=== PATIENT | female | born 1960 | race Caucasian/White ===

== ENCOUNTER 2023-08-13 07:52 | Outpatient (OUT) | payer MEDICARE, SELFPAY ==
--- NOTE | 2023-08-13 08:02 | MM_ITS ---
Patient Name: EMILY MACIAS MR#: [id number] : 1960 Exam Date: 08/13/2023 Ordering Doctor: DR Aliya Stinson RADIOLOGY REPORT PROCEDURE: MM TOMOSYNTHESIS SCREENING BI COMPARISON: MG MAMM SCREEN 3D RIAN CAD, 07/19/2021. MG MAMM SCREEN RIAN W CAD, 07/05/2020. MG MAMM RIAN SCRN W CAD DIG, 02/25/2013. MG MAMM SCREEN 3D RIAN CAD, 08/08/2022. INDICATIONS: Screening Calculator Name NCI Breast Cancer Risk Assessment Tool 5 Year Breast Cancer Risk 3.00% Lifetime Breast Cancer Risk 12.40% Personal Breast Cancer No Personal Ovarian Cancer No Treatments None Family Cancers Father with skin cancer at age ~65; Mother with breast cancer at age 79. LOCATION: [facility] BREAST COMPOSITION: Heterogeneously dense,which may obscure small masses. FINDINGS: DIAGNOSTIC CATEGORY 1--NEGATIVE. RIGHT BREAST: No significant suspicious finding. No significant change has occurred. LEFT BREAST: No significant suspicious finding. No significant change has occurred. RECOMMENDATIONS: ROUTINE MAMMOGRAM AND CLINICAL EVALUATION IN 12 MONTHS. PLEASE NOTE: A NORMAL MAMMOGRAM DOES NOT EXCLUDE THE POSSIBILITY OF BREAST CANCER. A CLINICALLY SUSPICIOUS PALPABLE LUMP SHOULD BE BIOPSIED. Dictated by: Derik Rangel M.D. on 08/13/2023 at 14:03 Approved by: Derik Rangel M.D. on 08/13/2023 at 14:08
== END 2023-08-13 07:53 | disposition home or self-care (01) ==
LOC: MAMMO 07:52
PROVIDERS: PCP Family Medicine; Visit Provider Obstetrics & Gynecology
DX: Z12.31 Encounter for screening mammogram for malignant neoplasm of breast (principal); Z80.8 Family history of malignant neoplasm of other organs or systems; Z80.3 Family history of malignant neoplasm of breast
CPT/HCPCS: 77063; 77067

== ENCOUNTER 2023-08-13 08:27 | Outpatient (OUT) | payer MEDICARE, SELFPAY ==
[2023-08-13 08:54] LABS: Erythrocyte Sedimentation Rate 8 mm/hr (<=30)
[2023-08-16 08:46] LABS: C Reactive Protein <0.50 mg/dL (<=0.50)
== END 2023-08-13 08:28 | disposition home or self-care (01) ==
LOC: LAB 08:30
PROVIDERS: PCP Family Medicine
DX: T84.84XD Pain due to internal orthopedic prosthetic devices, implants and grafts, subsequent encounter (principal)
CPT/HCPCS: 36415; 85652; 86140

== ENCOUNTER 2023-09-21 08:18 | Outpatient (OUT) | payer MEDICARE, SELFPAY ==
--- OUTSIDE RECORDS SUMMARY | 2023-09-21 08:21 | XMS_ITS | CCD ---
Author Name Unknown Address [facility] [address] [place] [address] Organization [facility] Care Team Providers Care Library Services Dean Name Role Phone Netta Montoya Unavailable Siva Ron Unavailable [phone] JOSE GC, DR BECERRA Admitting Unavailable MISC, DR BECERRA Attending Unavailable LINDSAY, DR NETTA Conti Primary Care Unavailable MISC, DR BECERRA Consulting Unavailable CIELO GARCIA Consulting Unavailable TONY DICKINSON Consulting Unavailable LINDSAY, DR NETTA Conti Primary Care Unavailable JANETT BALBUENA Attending Unavailable ESHA, JANETT Admitting Unavailable JANETT BALBUENA Consulting Unavailable DELGADILLO .SABINA Admitting Unavailable SABINA IBARRA Attending Unavailable LINDSAY, DR NETTA Conti Primary Care Unavailable FELIPA, DR MARROQUIN Consulting Unavailable LINDSAY, DR NETTA Conti Primary Care Unavailable FELIPA, DR MARROQUIN Attending Unavailable FELIPA, DR MARROQUIN Admitting Unavailable LINDSAY, DR NETTA Conti Admitting Unavailable LINDSAY, DR NETTA Conti Attending Unavailable LINDSAY, DR NETTA Conti Primary Care Unavailable LINDSAY, DR NETTA Conti Consulting Unavailable MARY ANN ., DR PAWEL Connors Admitting Unavailable REESE ., DR PAWEL Connors Attending Unavailable LINDSAY, DR NETTA Conti Primary Care Unavailable DELGADILLO .SABINA Consulting Unavailable REESE ., DR PAWEL Connors Admitting Unavailable REESE ., DR PAWEL Connors Attending Unavailable LINDSAY, DR NETTA Conti Primary Care Unavailable MARY ANN ., DR PAWEL Connors Consulting Unavailable LINDSAY, DR NETTA Conti Admitting Unavailable LINDSAY, DR NETTA Conti Attending Unavailable LINDSAY, DR NETTA Conti Primary Care Unavailable LINDSAY, DR NETTA Conti Referring Unavailable LINDSAY, DR NETTA Conti Consulting Unavailable ARIADNE, DR Erin Briceno Consulting Unavailable LINDSAY, DR NETTA Conti Primary Care Unavailable ARIADNE, DR Erin Briceno Attending Unavailable ARIADNE, DR Erin Briceno Admitting Unavailable ARIADNE, DR Erin Briceno Consulting Unavailable MONTOYA, DR NETTA Conti Primary Care Unavailable MISC, DR BECERRA Attending Unavailable MISC, DR BECERRA Admitting Unavailable BRI BERGER Unavailable MONTOYA, DR NETTA Conti Primary Care Unavailable AHMED, DR HOOVER Attending Unavailable AHMED, DR HOOVER Admitting Unavailable AHMED, DR HOOVER Consulting Unavailable LEO, DR MARROQUIN Consulting Unavailable MONTOYA, DR NETTA Conti Primary Care Unavailable LEO, DR MARROQUIN Attending Unavailable LEO, DR MARROQUIN Admitting Unavailable ARIADNE, DR Erin Briceno Consulting Unavailable MONTOYA, DR NETTA Conti Primary Care Unavailable ARIADNE, DR Erin Briceno Attending Unavailable ARIADNE, DR Erin Briceno Admitting Unavailable MONTOYA, DR NETTA Conti Admitting Unavailable MONTOYA, DR NETTA Conti Attending Unavailable MONTOYA, DR NETTA Conti Primary Care Unavailable MONTOYA, DR NETTA Conti Consulting Unavailable ZIEBER, DR PELON Briceno Consulting Unavailable MONTOYA, DR NETTA Conti Primary Care Unavailable MCKINLEY, KENDRA Attending Unavailable MCKINLEY, KENDRA Admitting Unavailable MCKINLEYKENDRA Consulting Unavailable MISC, DR BECERRA Admitting Unavailable MISC, DR BECERRA Attending Unavailable MONTOYA, DR NETTA Conti Primary Care Unavailable MISC, DR BECERRA Consulting Unavailable HIGHLANDER, BASILIO Goodrich Admitting Unavailable HIGHLANDER, BASILIO Goodrich Attending Unavailable MONTOYA, DR NETTA Conti Primary Care Unavailable ZIEBER, DR PELON Briceno Consulting Unavailable HIGHLANDER, BASILIO Goodrich Consulting Unavailable ESHAJANETT Consulting Unavailable MONTOYA, DR NETTA Conti Primary Care Unavailable JANETT BALBUENA Attending Unavailable JANETT BALBUENA Admitting Unavailable ESHAJANETT Consulting Unavailable MONTOYA, DR NETTA Conti Primary Care Unavailable JANETT BALBUENA Attending Unavailable ESHA, JANETT Admitting Unavailable Montoya Netta LEVIN Primary Care Provider Ricardo Watson Attending Unavailable [facility] MD, Netta [facility] Unava illaura Balbuena DPM, Janett Govea Attending Unavailab Gopal LEVIN, Netta [facility] Unava ilable Esha TAYLOR, Janett Govea Attending Unavailab charbel Montoya MD, Netta [facility] Unava ilable Esha TAYLOR, Janett Govea Attending Unavailab Gopal LEVIN, Netta [facility] Unava illaura SANTOS, Rafael Barrera Attending U carlos Montoya MD, Netta [facility] Unava mila Spear [employer]BER PLANER, Rafael Barrera Attending U carlos Montoya MD, Netta [facility] Primary [facility] Unava mila Balbuena DPM, Janett Govea Attending Unavailab charbel Landeros DPM, Basilio Mireles Referring Unav ailMD Siva Lundy Attending Provider MD Netta Montoya Primary Care Provider MD Cara Leo Attending Provider [phone] Siva Ron Admitting Unavailabl e Montoya, Netta E Primary Care Unavailable Siva Ron Attending Unavailroxana Leo, Cara Attending Unavailable Felipa, Cara Admitting Unavailable Montoya, Netta E Primary Care Unavailable FOSTER, SAGAR Referring Unavailable MONTOYA, NETTA Primary Care Unavailable FOSTER, SAGAR Admitting Unavailable FOSTER, SAGAR Attending Unavailable MONTOYA, NETTA Primary Care Unavailable FOSTER, SAGAR Referring Unavailable FOSTER, SAGAR Attending Unavailable BRANDEE, RADHA Attending Unavailable BRANDEE, RADHA Referring Unavailable MONTOYA, NETTA Primary Care Unavailable BRANDEE, RADHA Attending Unavailable BRANDEE, RADHA Referring Unavailable MONTOYA, NETTA Primary Care Unavailable FOSTER, SAGAR Referring Unavailable FOSTER, SAGAR Attending Unavailable MONTOYA, NETTA Primary Care Unavailable FOSTER, SAGAR Referring Unavailable MONTOYA, NETTA Primary Care Unavailable FOSTER, SAGAR Attending Unavailable SELF, SELF Referring Unavailable MONTOYA, NETTA Primary Care Unavailable FOSTER, SAGAR Attending Unavailable MONTOYA, NETTA Primary Care Unavailable FOSTER, SAGAR Referring Unavailable FOSTER, SAGAR Attending Unavailable Allergies Allergy Classification Reported Allergen(s) Allergy Type Date of Onset Reaction(s) Facility (20 sources) milnacipran; Translations: [Savella] Drug Allergy 09-02-20 13 SEVERE HEADACHES [facility] Repository (17 sources) Morphine Drug Allergy Unknown [facility] Other (20 sources) tiZANidine; Translations: [Zanaflex] Drug Allergy 09-02-20 13 Hallucinations [facility] Repository (7 sources) milnacipran Drug Allergy 12-01-19 23 Headache [facility] (7 sources) tiZANidine Drug Allergy 12-01-19 23 Hallucination [facility] (2 sources) Morphine Drug Allergy [facility] Repository (11 sources) Vancomycin Drug Allergy 01-30-20 [facility] (6 sources) Allergies Reconciled Propensity to adverse reactions Unknown [facility] Other (6 sources) Saveraja *PSYCHOTHERAPEU TIC AND NEUROLOGICAL AGENTS Propensity to adverse reactions Unknown [employer] Other (1 source) milnacipran Drug Allergy 05-09-20 [facility] Repository (1 source) tiZANidine Drug Allergy 05-09-20 [facility] Repository (1 source) Vancomycin Drug Allergy 05-09-20 [facility] Repository Medications Current Medications Medication Drug Class(es) Dates Sig (Normalized) Sig (Original) 3 ML semaglutide 1.34 MG/ML Pen Injector [Ozempic] (8 sources) inject 0.5 mg by subcutaneous injection every week Ozempic (1 MG/DOSE) 4 MG/3ML 0.5mg Subcutaneous WEEKLY for 28 days Active inject 1 mg by subcu taneous injection every week Ozempic (1 MG/DOSE) 4 MG/3ML 1 (ONE) MILLIGRAM WEEKLY Subcutaneous WEEKLY Active acetaminophen 325 mg oral tablet (3 sources) Start: 01-29-2023 take 2 tablets by mouth every four hours as needed Acetaminophen 325 MG tablet Take 2 tablets by mouth every 4 hours as needed for Mild Pain. 50 tablet 1 01/29/2023 Active acetaminophen 325 mg / HYDROcodone bitartrate 5 mg oral tablet (2 sources) Opioid Agonist Start: 02-12-2023 take 1 tablet by mouth once daily as needed hydroCODone-acetami nophen 5-325 MG tablet Indications: Acute postoperative pain of knee Take 1-2 tablets by mouth every 6 hours as needed for Severe Pain for up to 7 days. Do not take over 4000mg acetaminophen daily. 20 tablet 0 02/12/2023 Active alendronic acid 70 mg oral tablet (5 sources) Bisphosphonate take 1 tablet by mouth once daily Fosamax 70 MG 1 tablet 30 minutes before the first food, beverage or medicine of the day with plain water Orally Active amylase 334698 unt / lipase 28496 unt / protease [id number] unt delayed release oral capsule (8 sources) Start: 01-25-2023 take 2 capsules by mouth three times daily at mealtime, then take 1 capsule by mouth four times daily Creon [id number] UNIT 2 capsules three times a day with meals and 1 capsule with a snack Orally four times a day for 30 days PLEASE CHECK ALLERGIES January, Active ascorbic acid 1000 mg oral tablet (5 sources) Vitamin C take 1 tablet by mouth once daily Ascorbic Acid 1000 MG tablet Take 1 tablet by mouth daily. 0 Active take 1 tablet by mouth every twe lve hours Vitamin C 1000 MG 1 tablet Orally TWICE A DAY Active aspirin 81 mg delayed release oral tablet (3 sources) Platelet Aggregation Inhibitor, Nonsteroidal Anti-inflammatory Drug Start: 01-29-2023 take 1 tablet by mouth twice daily Aspirin [address] tablet Take 1 tablet by mouth 2 times daily. This medication is for blood clot prevention. 60 tablet 0 01/29/2023 Active atropine sulfate 0.025 mg / diphenoxylate hydrochloride 2.5 mg oral tablet (5 sources) Anticholinergic, Cholinergic Muscarinic Antagonist, Antidiarrheal take 1 tablet by mouth every six hours Lomotil 2.5-0.025 MG 1 tablet as needed Orally Four times a day Active B Complex Vitamins (B COMPLEX 1 PO) (5 sources) B Complex Vitamins (B COMPLEX 1 PO) Take by mouth daily. 0 Active B Complex Vitami ns (B COMPLEX 1 PO) Take by mouth. 0 Active baclofen 10 mg oral tablet (8 sources) gamma-Aminobutyric Acid-ergic Agonist baclofen 10 MG table t Take 2 tablets by mouth as needed. 0 Active take 1 tablet by william th twice daily at mealtime as needed Baclofen 20 MG 1 tablet Administer witho ut regards to meals as needed Orally Twice a day Active biotin 10 mg oral tablet (2 sources) Biotin 57086 MCG tablet Take by mouth. 0 Active Calcium (14 sources) Phosphate Binder, Calcium Calcium + D Active Calcium Carb-Cholecalcifero l (CALCIUM + D3 PO) (3 sources) Calcium Carb-Cholecalcifer ol (CALCIUM + D3 PO) Take by mouth daily. 0 Active celecoxib 200 mg oral capsule (9 sources) Nonsteroidal Anti-inflammatory Drug Start: 03-23-2023 take 1 capsule by mouth twice daily Celecoxib 200 MG capsule Take 1 capsule by mouth 2 times daily. 60 capsule 0 03/23/2023 Active Start: 01-29-2023 End: 03-12-2023 take 1 capsule by mouth twice daily Celecoxib 200 MG capsule Take 1 capsule by mouth 2 times daily. 84 capsule 0 01/29/2023 03/12/2023 Active take 1 capsule by [facility] every twenty-four hours CeleBREX 200 MG 1 capsule with food Orally Once a day Active cephalexin 500 mg oral capsule (5 sources) Cephalosporin Antibacterial take 1 capsule by mouth every six hours Cephalexin 500 MG 1 capsule Orally Four times a day Active cholecalciferol 0.25 mg oral capsule (5 sources) Vitamin D Cholecalciferol 250 MCG (03922 UT) capsule capsule Take by mouth daily. 0 Active Cholecalciferol 250 MCG (71963 UT) capsule capsule Take by mouth. 0 Active cyclobenzaprine hydrochloride 5 mg oral tablet (1 source) Muscle Relaxant Start: 08-13-2023 take 1 tablet by mouth every twenty-four hours Cyclobenzaprine HCl 5 MG 1 tablet at bedtime as needed Orally Once a day for 30 day(s) Aug, Active dapagliflozin 10 mg oral tablet (6 sources) Sodium-Glucose Cotransporter 2 Inhibitor Start: 01-11-2023 take 1 tablet by mouth every twenty-four hours Farxiga 10 MG 1 tablet Orally Once a day for 30 days samples January, Active take 1 tablet by mouth once alannah y dapagliflozin 5 MG tablet Take 1 tablet by mouth daily. 0 Active diclofenac sodium 75 mg delayed release oral tablet (5 sources) Nonsteroidal Anti-inflammatory Drug take 1 tablet by mouth every twelve hours Diclofenac Sodium 75 MG 1 tablet as needed Orally Twice a day Active dicyclomine hydrochloride 10 mg oral capsule (7 sources) Anticholinergic take 1 capsule by mouth every eight hours Dicyclomine HCl 10 MG 1 capsules Orally Three times a day Active take 1 tablet by mouth every six hours Dicyclomine 20 MG tablet Take 1 tablet by mouth every 6 hours. 0 Active docusate sodium 100 mg oral capsule (5 sources) Start: 01-29-2023 take 1 capsule by mouth twice daily Docusate 100 MG capsule Take 1 capsule by mouth 2 times daily. 60 capsule 0 01/29/2023 Active take 1 capsule by mouth twice da nelson Docusate (Stool Softener) 100 MG capsule Take 1 capsule by mouth 2 times daily. 0 Active estrogens, conjugated (skilled nursing) 0.625 mg/ml vaginal cream (5 sources) Estrogen Premarin 0.625 M G/GM as directed Vaginal Active eszopiclone 3 mg oral tablet (16 sources) take 1 tablet by mouth every twenty-four hours Lunesta 3 MG 1 tablet immediately before bedtime Orally Once a day Active take 1 tablet by mouth once alannah y eszopiclone 2 MG tablet Take 1 tablet by mouth daily. 0 Active FLUoxetine 40 mg oral capsule (5 sources) Serotonin Reuptake Inhibitor take 1 capsule by mouth every twenty-four hours FLUoxetine HCl 40 MG 1 capsule Orally Once a day Active folic acid 0.4 mg / vitamin b12 1 mg sublingual tablet (5 sources) Vitamin B12 Cobalamin Combin ations (B-12) 100-[address] under tongue daily. 0 Active Cobalamin Combin ations (B-12) 100-[address] under tongue. 0 Active glipiZIDE 5 mg oral tablet (5 sources) Sulfonylurea take 1 tablet by mouth once daily 30 minutes before breakfast glipiZIDE 5 MG 1 tablet 30 minutes before breakfast Orally Once a day Active Homeopathic Products (5 sources) Homeopathic Products Active hyoscyamine sulfate 0.125 mg oral tablet (5 sources) Start: 09-13-19 take 1 tablet by mouth every six hours Levsin 0.125 MG 1 tablet as needed Orally Four times a day for 15 days Sep, Active ibuprofen 800 mg oral tablet (13 sources) Nonsteroidal Anti-inflammatory Drug take 1 tablet by mouth every eight hours at mealtime as needed Ibuprofen 800 MG 1 tablet with food or milk as needed Orally every 8 hrs Active take 1 tablet by william th three times daily at mealtime as needed Ibuprofen 200 MG 1 tablet with food or milk as needed Orally Three times a day Active Ibuprofen 600 MG tablet Take 800 mg by mouth every 6 hours as needed for Mild Pain. 0 Active Iodine (5 sources) Iodine Active levothyroxine sodium 0.112 mg oral tablet (20 sources) l-Thyroxine Start: 10-02-2022 take 1 tablet by mouth once daily in the morning levothyroxine 112 MCG tablet Take 1 tablet by mouth daily. AM 0 10/02/2022 Active take 1 tablet by william th every twenty-four hours Levothyroxine Sodium 112 MCG 1 tablet Orally Once a day for 90 days Active lifitegrast 50 mg/ml ophthalmic solution (14 sources) Lymphocyte Function-Associated Antigen-1 Antagonist Start: 11-06-2022 Xiidra 5 % Solution ophthalmic solution Place in both eyes 2 times daily. 0 11/06/2022 Active take 1 drop(s) into the eye(s) twice daily Xiidra 5 % 1 drop into affected eye Ophthalmic Twice a day Active linaclotide 0.072 mg oral capsule (5 sources) Guanylate Cyclase-C Agonist Linz ess 72 MCG 1 capsule at least 30 minutes before the first meal of the day on an empty stomach Orally Once a day Active Lutein (15 sources) Lutein Active LUTEIN PO Take 2 5 mg by mouth. 0 Active Magnesium (17 sources) Magnesium Active magnesium oxide 500 mg oral capsule (5 sources) Magnesium 500 MG capsule Take by mouth daily. 0 Active melatonin 5 mg oral capsule (5 sources) Melatonin 5 MG capsule Take by mouth at bedtime. 0 Active mesalamine 1200 mg delayed release oral tablet (14 sources) Aminosalicylate Start: 01-18-2023 take 4 tablets by mouth every twenty-four hours Mesalamine 1.2 GM 4 tablets Orally Once a day for 30 days January, Active Start: 01-01-2023 take 2 tablets by mo uth once daily Mesalamine 1.[address] tablet Take 2 tablets by mouth daily. 0 01/01/2023 Active take 2 tablets by mo uth every twenty-four hours Mesalamine 1.2 GM 2 tablets with a meal Orally Once a day for 30 days Active metFORMIN hydrochloride 1000 mg oral tablet (20 sources) Biguanide Start: 08-29-2022 metFORMIN 1000 MG tablet 2 times daily. 0 08/29/2022 Active methocarbamol 750 mg oral tablet (14 sources) Muscle Relaxant take 2 tablets by mouth at bedtime Methocarbamol 750 MG 2 tablets Orally at HS Active METHOCARBAMOL PO Take by mouth. 0 Active methylPREDNISolone 4 mg oral tablet (2 sources) Corticosteroid Start: 08-09-2023 methylPREDNIsolone 4 MG Tab Therapy Pack tablet Take 1 tablet by mouth As directed. follow package directions 21 tablet 0 08/09/2023 Active Multi For Her (14 sources) Multi For Her Ac tive Multiple Vitamins-Minerals (One Daily Calcium/Iron) tablet (5 sources) take 1 tablet by mouth once daily Multiple Vitamins-Minerals (One Daily Calcium/Iron) tablet Take 1 tablet by mouth daily. 0 Active Multivitamin preparation (5 sources) Multivitamin Act ag Multivitamin/Iron (5 sources) Multivitamin/Iro n Active nabumetone 750 mg oral tablet (2 sources) Nonsteroidal Anti-inflammatory Drug Start: 11-28-2022 nabumetone 750 MG tablet naloxone hydrochloride 40 mg/ml nasal spray (2 sources) Opioid Antagonist Start: 01-29-2023 End: 01-29-2023 naloxone 4 MG/0.1ML 1 spray by Nasal route once for 1 dose. [place] into the nose as directed. Call 911. If no response in 2 minutes use a new nasal spray in other nostril. Repeat until help arrives. 1 Each 0 01/29/2023 Active Kelly 3 (5 sources) Kelly 3 Active omeprazole 20 mg delayed release oral tablet (17 sources) Proton Pump Inhibitor Omeprazole [address] tablet Take by mouth daily. 0 Active take 1 capsule by mouth once jomar ly Omeprazole 20 MG 1 capsule 30 minutes before morning meal Orally Once a day Active take 1 capsule by mouth once jomar ly Omeprazole 10 MG 1 capsule 30 minutes before morning meal Orally Once a day Active OneTouch Ultra 2 w/Device (17 sources) OneTouch Ultra 2 w/Device as directed Active oxybutynin chloride 5 mg oral tablet (5 sources) Cholinergic Muscarinic Antagonist take 1 tablet by mouth three times daily as needed Oxybutynin Chloride 5 MG 1 tablet Orally THREE TIMES A DAY NEEDED Active oxyCODONE hydrochloride 5 mg oral tablet (2 sources) Opioid Agonist Start: 02-07-20 take 1-2 tablets by mouth every four to six hours as needed for pain oxyCODONE 5 MG tablet Indications: Acute postoperative pain of knee Take 1-2 tabs po q 4-6 hours prn pain. Wean as tolerated. 20 tablet 0 02/06/2023 Active Ozempic (0.25 or 0.5 MG/DOSE) 2 MG/1.5ML (1 source) Ozempic (0.25 or 0.5 MG/DOSE) 2 MG/1.5ML as directed Subcutaneous Active Pancrelipase, [id number], (CREON PO) (3 sources) take 1 tablet by mouth once daily Pancrelipase, [id number]-Gkea, (CREON PO) Take 36,000 Units by mouth. 2 tablet by mouth with each meal, 1 tablet by mouth with 1 snack daily 0 Active probiotic (1 source) probiotic Active Probiotic Product (PROBIOTIC DAILY PO) (5 sources) Probiotic Produc t (PROBIOTIC DAILY PO) Take by mouth. 0 Active Propylene glycol (3 sources) Propylene Glycol (SYSTANE COMPLETE OP) Apply to eye as needed. 0 Active Robaxin-750 (5 sources) Robaxin-750 Acti ve Selenium (5 sources) Selenium Active SITagliptin 100 mg oral tablet (5 sources) Dipeptidyl Peptidase 4 Inhibitor Start: 04-03-20 take 1 tablet by mouth every twenty-four hours Januvia 100 MG 1 tablet Orally Once a day for 90 days Mar, Active Specialty Vitamins Products (ICAPS lutein & zeaxanthin) Tab DR (5 sources) take 1 tablet by mouth once daily Specialty Vitamins Products (ICAPS lutein & zeaxanthin) Tab DR Take 1 tablet by mouth daily. 0 Active take 1 tablet by mouth twice jomar ly Specialty Vitamins Products (ICAPS lutein & zeaxanthin) Tab DR Take 1 tablet by mouth 2 times daily. 0 Active Stool Softener (14 sources) Stool Softener A ctive thyroid (NURSING HOME) (5 sources) Nature-Throid Ac tive traMADol hydrochloride 50 mg oral tablet (16 sources) Opioid Agonist Start: 02-16-2023 take 1 tablet by mouth every six hours as needed for pain traMADol 50 MG tablet Indications: Acute postoperative pain of knee 1 tabs po q 6 hr PRN pain 20 tablet 0 02/16/2023 Active take 1 tablet by mouth every twe lve hours traMADol HCl 50 MG 1 tablet twice a day Active traMADol HCl Act ag turmeric extract 500 mg oral capsule (2 sources) Turmeric 500 MG capsule Take by mouth. 0 Active Ubrelvy 100 MG (5 sources) Start: 04-03-2023 Ubrelvy 100 MG 1 tablet may take second dose at least 2 hours after first dose as needed Orally Once a day for 30 day(s) Mar, Active Vitamin A (13 sources) Vitamin A Vitamin A Active Vitamin A 2400 MCG (8000 UT) tablet (5 sources) Vitamin A 2400 M CG (8000 UT) tablet Take by mouth daily. 0 Active Vitamin A 2400 M CG (8000 UT) tablet Take by mouth. 0 Active vitamin B12 (17 sources) Vitamin B12 Vitamin B12 Acti ve vitamin b6 100 mg oral table t (5 sources) Pyridoxine HCl ( B-6) 100 MG tablet Take by mouth daily. 0 Active Pyridoxine HCl ( B-6) 100 MG tablet Take by mouth. 0 Active Vitamin C 1000 MG (14 sources) take 1 tablet by twice daily Vitamin C 1000 MG 1 tablet Orally TWICE A DAY Active Vitamin D-3 25 MCG (1000 UT) (17 sources) Vitamin D-3 25 M CG (1000 UT) 1/2 DAILY IN SUMMER Orally Once a day Active Zinc (18 sources) Zinc 50 MG capsu le Take by mouth daily. 0 Active Zinc Active Zinc 50 MG capsu le Take by mouth. 0 Active zolpidem tartrate 10 mg oral tablet (3 sources) gamma-Aminobutyric Acid-ergic Agonist Start: 10-02-2022 Zolpidem Tartrate 10 MG TAKE 1 TABLET AT BEDTIME for 90 Sep, Active Completed/Discontinued Medications Medication Drug Class(es) Dates Sig (Normalized) Sig (Original) doxepin hydrochloride 100 mg oral capsule (5 sources) Tricyclic Antidepressant take 1 capsule by mouth every twenty-four hours Doxepin HCl 100 MG 1 capsule at bedtime Orally Once a day Not-Taking DULoxetine (5 sources) Serotonin and Norepinephrine Reuptake Inhibitor take 1 capsule by mouth once daily Cymbalta 90 MG 1 capsule Orally Once a day for 30 day(s) Not-Taking 10 ml lidocaine hydrochloride 10 mg/ml injection (7 sources) Antiarrhythmic, Amide Local Anesthetic Start: 11-30-2022 End: 11-30-2022 Lidocaine 1% (PF) (XYLOCAINE MPF) 1 % injection 5 mL apply 1 dose transde rmal route once daily as needed Lidocaine 4 % 1 patch as needed Externally Once a day Active QUEtiapine 50 mg oral tablet (5 sources) Atypical Antipsychotic take 1 tablet by mouth every twenty-four hours SEROquel 50 MG 1 tablet Orally Once a day for 30 day(s) Not-Taking 1 ml triamcinolone acetonide 40 mg/ml prefilled syringe (2 sources) Corticosteroid Start: 023 End: triamcinolone (KENALOG-40) injection 1 mL Problems Active Problems Problem Classification Problem Date Documented Da te Episodic/Chronic Abdominal pain (20 sources) Abdominal pain; Translations: [Unspecified abdominal pain] Onset: 03-28-2022 Episodic Acquired foot deformities (20 sources) Acquired hammer toe of left foot; Translations: [Other hammer toe(s) (acquired), left foot] Chronic Acquired foot deformities (17 sources) Acquired deformity of left foot; Translations: [Other acquired deformities of left foot] Episodic Allergic reactions (20 sources) Contact dermatitis due to plants; Translations: [Unspecified contact dermatitis due to plants, except food] Episodic Anxiety disorders (20 sources) Generalized anxiety disorder; Translations: [Generalized anxiety disorder] Chronic Diabetes mellitus with complications (20 sources) Hyperglycemia due to type 2 diabetes mellitus; Translations: [Type 2 diabetes mellitus with hyperglycemia] Onset: 07-11-2022 Chronic Diabetes mellitus without complication (11 sources) Type 2 diabetes mellitus without complication; Translations: [Type 2 diabetes mellitus without complications] Onset: 11-18-2020 01-24-2023 Chronic Disorders of lipid metabolism (20 sources) Mixed hyperlipidemia; Translations: [Mixed hyperlipidemia] Onset: 12-02-2018 Chronic Diverticulosis and diverticulitis (20 sources) Diverticular disease of colon; Translations: [Diverticulosis of intestine, part unspecified, without perforation or abscess without bleeding] Chronic E Codes: Natural/environment (20 sources) Tick bite; Translations: [Bitten or stung by nonvenomous insect and other nonvenomous arthropods, initial encounter] Onset: 02-02-2022 Episodic Gastroduodenal ulcer (except hemorrhage) (17 sources) Peptic ulcer; Translations: [Peptic ulcer, site unspecified, unspecified as acute or chronic, without hemorrhage or perforation] Chronic Headache; including migraine (6 sources) Migraine with aura; Translations: [Migraine with aura, not intractable, without status migrainosus] Chronic Headache; including migraine (17 sources) Headache; Translations: [Headache] Episodic Heart valve disorders (3 sources) Aortic valve disorder; 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 valve disorder, unspecified] Onset: 11-23-2010 01-24-2023 Chronic Hemorrhoids (20 sources) Residual hemorrhoidal skin tags; Translations: [Residual hemorrhoidal skin tags] Onset: 06-27-2010 Episodic Immunizations and screening for infectious disease (6 sources) Other specified abnormal immunological findings in serum; Translations: [Raised antibody titer] Onset: 11-28-2022 Episodic Joint disorders and dislocations; trauma-related (20 sources) Derangement of knee; Translations: [Unspecified internal derangement of left knee] Onset: 08-07-2018 01-30-2023 Chronic Joint disorders and dislocations; trauma-related (6 sources) Derangement of knee; Translations: [Unspecified internal derangement of right knee] Chronic Joint disorders and dislocations; trauma-related (17 sources) Dislocation of toe joint; Translations: [Unspecified dislocation of left toe(s), subsequent encounter] Episodic Malaise and fatigue (20 sources) Fatigue; Translations: [Other fatigue] Onset: 02-28-2022 Episodic Meningitis (except that caused by tuberculosis or sexually transmitted disease) (17 sources) Meningitis; Translations: [Meningitis, unspecified] Episodic Mood disorders (6 sources) Dysthymia; Translations: [Dysthymic disorder] Onset: 08-07-2018 Chronic Mycoses (20 sources) Candidiasis; Translations: [Candidiasis, unspecified] Onset: 01-22-2013 Episodic Nutritional deficiencies (20 sources) Vitamin D deficiency; Translations: [Vitamin D deficiency, unspecified] Chronic Osteoarthritis (20 sources) Osteoarthritis; Translations: [Unspecified osteoarthritis, unspecified site] Onset: 08-27-2022 Chronic Other acquired deformities (6 sources) 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; Translations: [Contracture, right ankle] Chronic Other aftercare (1 source) Other emergency department rn (current) drug therapy; Translations: [OTH ASSISTANT MEN'S LACROSSE COACH CURRENT DRUG THERAPY] Onset: 12-02-2022 Episodic Other connective tissue disease (1 source) History of left total knee replacement; Translations: [Presence of left artificial knee joint] 02-20-2023 Chronic Other connective tissue disease (2 sources) Presence of left artificial knee joint; Translations: [Presence of left artificial knee joint] Onset: 02-22-2023 Chronic Other connective tissue disease (20 sources) Muscle pain; Translations: [Myalgia, unspecified site] Episodic Other connective tissue disease (20 sources) Metatarsalgia of right foot; Translations: [Metatarsalgia, right foot] Episodic Other connective tissue disease (17 sources) Fibromyalgia; Translations: [Fibromyalgia] Episodic Other connective tissue disease (20 sources) Pain in left foot; Translations: [Pain in left foot] Episodic Other connective tissue disease (20 sources) Pain in limb; Translations: [Pain in left finger(s)] Episodic Other connective tissue disease (17 sources) Right achilles tendonitis; Translations: [Achilles tendinitis, right leg] Episodic Other connective tissue disease (20 sources) Pain in right foot; Translations: [Pain in right foot] Onset: 07-05-2022 Episodic Other connective tissue disease (17 sources) Plantar fasciitis of right foot; Translations: [Plantar fascial fibromatosis] Episodic Other connective tissue disease (3 sources) Fibromyalgia; Translations: [FIBROMYALGIA] Onset: 12-02-2022 Episodic Other connective tissue disease (6 sources) Metatarsalgia of left foot; Translations: [Metatarsalgia, left foot] Episodic Other connective tissue disease (6 sources) Pain in left lower limb; Translations: [Pain in left leg] Episodic Other connective tissue disease (6 sources) Achilles bursitis; Translations: [Achilles tendinitis, right leg] Episodic Other connective tissue disease (6 sources) Plantar fascial fibromatosis; Translations: [Plantar fascial fibromatosis] Episodic Other connective tissue disease (1 source) Trochanteric bursitis, right hip Episodic Other diseases of bladder and urethra (17 sources) Bladder muscle dysfunction - overactive; Translations: [Overactive bladder] Chronic Other diseases of bladder and urethra (6 sources) Overactive bladder; Translations: [Overactive bladder] Chronic Other diseases of kidney and ureters (17 sources) Renal mass; Translations: [Other specified disorders of kidney and ureter] Chronic Other diseases of kidney and ureters (6 sources) Disorder of kidney and/or ureter; Translations: [Other specified disorders of kidney and ureter] Onset: 03-29-2019 Chronic Other gastrointestinal disorders (20 sources) Diarrhea; Translations: [Diarrhea, unspecified] Episodic Other gastrointestinal disorders (7 sources) Other specified symptoms and signs involving the digestive system and abdomen; Translations: [OTH SPEC SX SIGNS DIGESTV SYS ABD] Onset: 01-18-2023 Episodic Other infections; including parasitic (6 sources) H/O: infectious disease; Translations: [Personal history of other infectious and parasitic diseases] Episodic Other injuries and conditions due to external causes (17 sources) Other injury of other muscle(s) and tendon(s) at lower leg level, right leg, initial encounter; Translations: [Fitzpatrick splints, right, initial encounter] Episodic Other injuries and conditions due to external causes (6 sources) Injury of muscle and tendon at lower leg level; Translations: [Other injury of other muscle(s) and tendon(s) at lower leg level, right leg, initial encounter] Episodic Other liver diseases (4 sources) Steatosis of liver; Translations: [Fatty (change of) liver, not elsewhere classified] Chronic Other liver diseases (1 source) Fatty (change of) liver, not elsewhere classified Chronic Other liver diseases (17 sources) Liver mass; Translations: [Hepatomegaly, not elsewhere classified] Episodic Other lower respiratory disease (17 sources) Dyspnea on exertion; Translations: [Other forms of dyspnea] Episodic Other lower respiratory disease (17 sources) Cough; Translations: [Cough] Episodic Other lower respiratory disease (6 sources) Dyspnea; Translations: [Other forms of dyspnea] Episodic Other nervous system disorders (20 sources) Mononeuropathy of lower limb; Translations: [Unspecified mononeuropathy of left lower limb] Chronic Other nervous system disorders (1 source) Lesion of lateral popliteal nerve, left lower limb; Translations: [LESION LAT POP NERVE LT LOWER LIMB] Onset: 08-27-2022 Chronic Other nervous system disorders (1 source) Lesion of lateral popliteal nerve, unspecified lower limb; Translations: [LESION LAT POP NERVE UNS LOWER LIMB] Onset: 08-27-2022 Chronic Other nervous system disorders (1 source) Right-sided piriformis syndrome; Translations: [Lesion of sciatic nerve, right lower limb] Chronic Other nervous system disorders (1 source) Lesion of sciatic nerve, right lower limb Chronic Other nervous system disorders (1 source) Postoperative pain ; Translations: [Other acute postprocedural pain] 08-06-2023 Episodic Other nervous system disorders (2 sources) Other acute postprocedural pain; Translations: [Other acute postprocedural pain] Onset: 08-09-2023 Episodic Other non-traumatic joint disorders (17 sources) Multiple joint pain; Translations: [Pain in unspecified joint] Episodic Other non-traumatic joint disorders (17 sources) Instability of joint of left foot; Translations: [Other instability, left foot] Episodic Other non-traumatic joint disorders (12 sources) Arthralgia of the lower leg; Translations: [Pain in right knee] Episodic Other nutritional; endocrine; and metabolic disorders (18 sources) Obese class I; Translations: [Body mass index (BMI) 34.0-34.9, adult] Chronic Other nutritional; endocrine; and metabolic disorders (6 sources) Obesity; Translations: [Obesity, unspecified] Chronic Other upper respiratory infections (6 sources) Chronic sinusitis; Translations: [Chronic sinusitis, unspecified] Chronic Other upper respiratory infections (12 sources) Acute maxillary sinusitis; Translations: [Acute recurrent maxillary sinusitis] Onset: 08-09-2018 Episodic Pancreatic disorders (not diabetes) (1 source) Chronic pancreatitis; Translations: [Other chronic pancreatitis] Chronic Pancreatic disorders (not diabetes) (2 sources) Other specified diseases of pancreas; Translations: [Other specified diseases of pancreas] Onset: 05-09-2023 Episodic Prolapse of female genital organs (20 sources) Uterine prolapse; Translations: [Uterovaginal prolapse, unspecified] Onset: 06-27-2010 Chronic Residual codes; unclassified (1 source) Presence of functional implant, unspecified; Translations: [PRESENCE FUNCTIONAL IMPLANT UNS] Onset: 08-27-2022 Chronic Residual codes; unclassified (3 sources) Sleep dysfunction with sleep stage disturbance; Translations: [Other sleep disorders] Onset: 10-10-2012 01-24-2023 Chronic Residual codes; unclassified (6 sources) Obstructive sleep apnea syndrome; Translations: [Obstructive sleep apnea] Onset: 08-07-2018 Chronic Residual codes; unclassified (20 sources) Reduced libido; Translations: [Decreased libido] Episodic Residual codes; unclassified (6 sources) Tobacco user; Translations: [Tobacco use] Episodic Residual codes; unclassified (6 sources) Insomnia; Translations: [Insomnia, unspecified] Episodic Skin and subcutaneous tissue infections (20 sources) Cutaneous abscess of left foot; Translations: [Cellulitis of toe of left foot] Episodic Spondylosis; intervertebral disc disorders; other back problems (5 sources) Spondylosis without myelopathy or radiculopathy, cervical region; Translations: [Other cervical disc degeneration, unspecified cervical region] Onset: 03-21-2022 Chronic Spondylosis; intervertebral disc disorders; other back problems (20 sources) Neck pain; Translations: [Cervicalgia] Onset: 08-07-2018 Episodic Systemic lupus erythematosus and connective tissue disorders (6 sources) Autoimmune disease; Translations: [Autoimmune disease, not elsewhere classified] Onset: 08-07-2018 Chronic Thyroid disorders (20 sources) Non-toxic uninodular goiter; Translations: [Nontoxic single thyroid nodule] Onset: 08-07-2018 Chronic Unclassified (1 source) Low back pain, unspecified; Translations: [Low back pain, unspecified] Onset: 06-19-2023 Past or Other Problems Problem Classification Problem Date Documented Da te Episodic/Chronic Bacterial infection; unspecified site (3 sources) Bartonellosis; 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, 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 01-24-2023 Episodic Complication of device; implant or graft (20 sources) Broken internal joint prosthesis, unspecified site, subsequent encounter; Translations: [Joint pain] Onset: 11-30-2022 Episodic Other aftercare (6 sources) Surgical follow-up; Translations: [Surgery follow-up examination] Onset: 07-21-2010 Episodic Other circulatory disease (1 source) Other specified symptoms and signs involving the circulatory and respiratory systems; Translations: [OTH SPEC SX SIGNS INVLV CIRC RS] Onset: 08-26-2022 Episodic Other connective tissue disease (1 source) Short Achilles tendon (acquired), left ankle; Translations: [SHORT ACHILLES TENDON ACQ LT ANKLE] Onset: 08-26-2022 Episodic Other connective tissue disease (1 source) Neuralgia and neuritis, unspecified; Translations: [NEURALGIA AND NEURITIS UNSPECIFIED] Onset: 08-26-2022 Episodic Other connective tissue disease (3 sources) Pain in right foot; Translations: [PAIN IN RIGHT FOOT] Onset: 07-09-2022 Episodic Other connective tissue disease (1 source) Pain in left foot; Translations: [PAIN IN LEFT FOOT] Onset: 07-09-2022 Episodic Other connective tissue disease (1 source) Pain in right lower leg; Translations: [PAIN IN RIGHT LOWER LEG] Onset: 07-09-2022 Episodic Other connective tissue disease (4 sources) Myalgia, unspecified site; Translations: [MYALGIA UNSPECIFIED SITE] Onset: 01-30-2022 Episodic Other connective tissue disease (6 sources) Enthesopathy of hip region; Translations: [Enthesopathy of hip region] Onset: 08-07-2018 Episodic Other gastrointestinal disorders (4 sources) Diarrhea, unspecified; Translations: [DIARRHEA UNSPECIFIED] Onset: 04-08-2022 Episodic Other infections; including parasitic (20 sources) Lyme disease; Translations: [Lyme disease, 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 01-24-2023 Episodic Other liver diseases (6 sources) Large liver; Translations: [Hepatomegaly, not elsewhere classified] Onset: 03-29-2019 Episodic Other nervous system disorders (6 sources) Paresthesia; Translations: [Paresthesia of skin] Onset: 08-07-2018 Episodic Other non-traumatic joint disorders (4 sources) Pain in unspecified ankle and joints of unspecified foot; Translations: [PAIN IN UNSPECIFIED ANKLE] Onset: 08-23-2022 Episodic Other non-traumatic joint disorders (6 sources) Joint pain; Translations: [Pain in unspecified joint] Onset: 08-07-2018 Episodic Other non-traumatic joint disorders (2 sources) Pain in unspecified knee; Translations: [Pain in unspecified knee] Onset: 01-29-2023 Episodic Other screening for suspected conditions (not mental disorders or infectious disease) (14 sources) Encounter for screening mammogram for malignant neoplasm of breast; Translations: [Abnormal findings diagnostic imaging of liver+biliary tract] Onset: 12-19-2018 Episodic Other skin disorders (6 sources) Mass of thoracic structure; Translations: [Swelling, mass, or lump in chest] Onset: 12-02-2018 Episodic Residual codes; unclassified (1 source) Other specified postprocedural states; Translations: [OTH SPECIFIED POSTPROCEDURAL STATES] Onset: 08-27-2022 Episodic Residual codes; unclassified (1 source) Family history of malignant neoplasm of breast; Translations: [FAMILY HX MALIG NEOPLASM OF BREAST] Onset: 08-12-2022 Episodic Unclassified (17 sources) Left lumbar pain; Translations: [Left lumbar pain] Results Test Name Value Interpretation Reference Range Facility XR lumbar spine min 4V*on XR lumbar spine min 4V* [facility] [place] [address] XRay Report Signed Patient: Emily Macias MR#: [id number] : 1960 Acct:[id number] Age/Sex: 62 / F ADM Date: 06/19/23 Loc: XD Room: Type: [facility] Attending Dr: Cara Leo MD Copies to: Cara Leo MD Ordering Provider: Cara Leo MD Date of Service: 06/19/23 XR/XR lumbar spine min 4V*: LOW BACK PAIN LUMBAR SPINE - 6 views: CLINICAL HISTORY: Right buttock and low back pain with burning sensation. COMPARISON: CT 05/09/2023 AP, lateral, both oblique and AP and lateral coned-down views of the lumbosacral junction were obtained. There is osteopenia. There is no evidence of fracture. There is subtle anterolisthesis of L4 and L5. There is no disproportionate disc space narrowing. There is minimal endplate spurring. There is lower lumbar facet disease, greatest on the right at L4-5. No pars defect is identified. The sacroiliac joints are maintained and show mild sclerosis. There are no paraspinal soft tissue abnormalities. Incidental note is made of gaseous distention of the stomach. XR/XR lumbar spine min 4V* IMPRESSION: DEGENERATIVE CHANGES, PREDOMINANTLY AT THE LOWER FACETS Impression dictated by: Lucy Thomas M.D.06/19/2023 4:01 PM Dictation Location: [place] [address] Transcribed By: [facility] 06/19/23 1601 Dictated By: Lucy Thomas MD 06/19/23 1556 Signed By: 06/19/23 1601 Normal [facility] CT abdomen pelvis wo/w conon 05-09-2023 CT abdomen pelvis wo/w con [facility] [place] [address] CT Scan Report Signed Patient: Emliy Macias MR#: [id number] : 1960 Acct:[id number] Age/Sex: 62 / F ADM Date: 05/09/23 Loc: Room: Type: [facility] Attending Dr: Siva Ron MD Copies to: Siva Ron MD Ordering Provider: Siva Ron MD Date of Service: 05/09/23 CT/CT abdomen pelvis wo/w con: Abdominal cramping;Pancreatic atrophy CT ABDOMEN AND PELVIS WITH AND WITHOUT INTRAVENOUS CONTRAST: CLINICAL HISTORY: Pancreatic atrophy, abdominal cramping. COMPARISON: Liver ultrasound performed earlier today. TECHNIQUE: Spiral images were obtained through the abdomen and pelvis before and after the administration of intravenous contrast. This CT exam was performed using one or more following dose reduction techniques: Automated exposure control, adjustment of the mA and/or kV according to patient size, or use of iterative reconstruction technique. FINDINGS: Lung Bases: [No acute findings.] Organs:Liver demonstrates hepatic steatosis. A focal area of increased steatosis is seen involving the junction of the left and right lobes likely representing the abnormality seen on ultrasound. No enhancing hepatic lesion is seen. Hepatic and portal veins appear patent. Gallbladder has been removed. Spleen appears unremarkable. Adrenal glands appear unremarkable. No hydronephrosis. 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 The pancreas appears atrophic with pancreatic calcifications and distal pancreatic duct dilatation suggestive of sequela of chronic pancreatitis. No enhancing mass is noted. No surrounding inflammatory changes are seen suggesting acute pancreatitis. GI: Stomach is grossly unremarkable. Small bowel appears nondilated. No acute colonic abnormality. Sigmoid diverticulosis.[ Pelvis:[Mild bladder wall thickening likely related to underdistention. Uterus has been removed. No adnexal mass.] Peritoneum/Retroperito neum:No free air, free fluid or lymphadenopathy.[ Abd wall/Bones:Abdominal wall demonstrates no acute findings. Osseous structures demonstrate degenerative change.[ CT/CT abdomen pelvis wo/w con IMPRESSION: 1. Evidence of chronic pancreatitis with pancreatic calcifications, pancreatic atrophy and distal pancreatic duct dilatation. No obstructing pancreatic mass or acute pancreatitis is seen. 2. Hepatic steatosis with a focal area of increased steatosis seen involving the junction of the left and right lobe likely representing the abnormality seen on ultrasound. No enhancing hepatic lesion is seen. Impression dictated by: Bar Sims Jr., D.O.05/09/2023 1:32 PM Dictation Location: [place] [address] Transcribed By: [facility] 05/09/23 1332 Dictated By: Bar Sims Jr, DO 05/09/23 1314 Signed By: 05/09/23 1332 Normal [facility] Glucose Glucometer (BldC) [M ass/Vol]Ordered By: Siva Ron on 05-09-2023 Glucose [Mass/Vol] 136 mg/dL [facility] Comment on above: Random Glucose Refer ence Range is dependent on time and content of last meal. Glucose of more than 200 mg/dL in a nonstressed, ambulatory subject supports the diagnosis of Diabetes Mellitus. Glucose Poct Glucometerson 0 05-09-2023 Commemt1 Glu2: Cleaned Meter Normal [facility] Comment on above: Result Comment: PERF ORMED BY: [place] [id number] PATHOLOGIST MUSEUM GUIDE DINAH MARIE M.D. Performed By: #### G LULS #### Point of Care testing , Glucose [Mass/Vol] 136 mg/dL Normal [facility] Comment on above: Result Comment: [facility] Glucose Reference Range is dependent on time and content of last meal. Glucose of more than 200 mg/dL in a nonstressed, ambulatory subject supports the diagnosis of Diabetes Mellitus. Performed By: #### G LULS #### Point of Care testing , No Panel InformationOrdered By: Siva Ron on 05-09-2023 Bedside Glucose Comment Glu2: cleaned meter [facility] US liveron 05-09-2023 [facility] Main [place] [id number] Ultrasound Report Signed Patient: Emily Macias MR#: [id number] : 1960 Acct:[id number] Age/Sex: 62 / F ADM Date: 05/09/23 Loc: Room: Type: [facility] Attending Dr: Siva Ron MD Ordering Provider: Siva Ron MD Date of Service: 05/09/23 US/US liver: Abdominal cramping Copies to: Siva Ron MD LIMITED ABDOMINAL ULTRASOUND: CLINICAL HISTORY: Abdominal pain. Atrophic pancreas. COMPARISON: None TECHNIQUE: Grayscale and color Doppler images of the right upper quadrant organs were obtained. FINDINGS: Pancreas: Visualized portions appear unremarkable. Liver: No focal mass or intrahepatic ductal dilatation. Hepatopedal flow is seen within the portal vein. Fatty infiltration. A questionable hyperechoic mass is seen involving the right lobe liver measuring 2.8 x 2.5 x 2.4 cm. Gallbladder: Removed. CBD: 6.7 mm US/US liver IMPRESSION: FATTY INFILTRATION OF LIVER. A QUESTIONABLE HYPERECHOIC MASS IS SEEN INVOLVING THE RIGHT LOBE MEASURING 2.8 X 2.5 X 2.4 CM. COMPLETE EVALUATION WITH LIVER CT OR MRI IS RECOMMENDED.. Impression dictated by: Bar Sims Jr., D.O.05/09/2023 12:36 PM Dictation Location: [place] [address] Tech: Leydi Thompson Transcribed By: FLYNN 05/09/23 1236 Dictated By: Bar Sims Jr, DO 05/09/23 1233 Signed By: 05/09/23 1236 [facility] BMP FASTINGon 01-30-2023 Anion gap [Moles/Vol] 6 mmol/L Low 8-16 [facility] Comment on above: Performed By: #### A CBC, BMPF #### Testing performed at [address] [address] Calcium [Mass/Vol] 8.4 mg/dL Normal 8.4-10.2 [facility] Comment on above: Performed By: #### A CBC, BMPF #### Testing performed at [address] [address] Chloride [Moles/Vol] 107 mmol/L Normal 98-107 [facility] Comment on above: Performed By: #### A CBC, BMPF #### Testing performed at [address] [address] CO2 [Moles/Vol] 23 mmol/L Normal 22-30 [facility] Comment on above: Performed By: #### A CBC, BMPF #### Testing performed at [address] [address] Creatinine [Mass/Vol] 0.69 mg/dL Normal 0.52-1.04 [facility] Comment on above: Performed By: #### A CBC, BMPF #### Testing performed at [address] [place] [address] EST. GFR, 111 ml/min/1.73sq.m [facility] Comment on above: Performed By: #### A CBC, BMPF #### Testing performed at [address] [address] EST. GFR,Non 91 ml/min/1.73sq.m [facility] Comment on above: Performed By: #### A CBC, BMPF #### Testing performed at [address] [address] GFR Information Average GFR for 60-6 9 years old = 85. Normal [facility] Comment on above: Result Comment: Technical Staff Engineer ruth Kidney disease, GFR = <60. Kidney failure, GFR = <15. The GFR estimate is not adjusted for extreme body surface area or acute process, nor has it been validated for women or ethnic groups other than and . Performed By: #### A CBC, BMPF #### Testing performed at [address] [address] Glucose [Mass/Vol] 119 mg/dL High 70-100 [facility] Comment on above: Result Comment: NORMAL <100 mg/dL PREDIABETES 101-126 mg/dL DIABETES 126 mg/dL or higher Performed By: #### A CBC, BMPF #### Testing performed at [address] [address] Potassium [Moles/Vol] 4.1 mmol/L Normal 3.5-5.1 [facility] Comment on above: Performed By: #### A CBC, BMPF #### Testing performed at [address] [address] Sodium [Moles/Vol] 136 mmol/L Normal 136-145 [facility] Comment on above: Performed By: #### A CBC, BMPF #### Testing performed at [address] [address] Urea nitrogen [Mass/Vol] 25 mg/dL High 7-20 [facility] Comment on above: Performed By: #### A CBC, BMPF #### Testing performed at [address] [address] CBCon 01-30-2023 ABSOLUTE BAS 0.0 10*3/uL Normal 0.0-0.2 [facility] Comment on above: Performed By: #### A CBC, BMPF #### Testing performed at [address] [address] ABSOLUTE EOS 0.0 10*3/uL Normal 0.0-0.7 [facility] Comment on above: Performed By: #### A CBC, BMPF #### Testing performed at [address] [address] ABSOLUTE NEUTROPHIL COUNT 9.9 10*3/uL High 1.4-6.5 [facility] Comment on above: Performed By: #### A CBC, BMPF #### Testing performed at [address] [address] Basophils/100 WBC (Bld) 0.1 % Normal 0.0-2.0 [facility] Comment on above: Performed By: #### A CBC, BMPF #### Testing performed at [address] [place] [address] DTYPE AUTO DIFF Normal [facility] Comment on above: Performed By: #### A CBC, BMPF #### Testing performed at [address] [address] Eosinophils/100 WBC (Bld) 0.2 % Normal 0.0-11.0 [facility] Comment on above: Performed By: #### A CBC, BMPF #### Testing performed at [address] [address] Lymphocytes (Bld) [#/Vol] 1.5 10*3/uL Normal 1.2-3.4 [facility] Comment on above: Performed By: #### A CBC, BMPF #### Testing performed at [address] [place] [address] Lymphocytes/100 WBC (Bld) 12.5 % Low 20.0-55.0 [facility] Comment on above: Performed By: #### A CBC, BMPF #### Testing performed at [address] [place] [address] Monocytes (Bld) [#/Vol] 0.5 10*3/uL Normal 0.0-0.7 [facility] Comment on above: Performed By: #### A CBC, BMPF #### Testing performed at [address] [address] Monocytes/100 WBC (Bld) 4.4 % Normal 0.0-10.0 [facility] Comment on above: Performed By: #### A CBC, BMPF #### Testing performed at [address] [address] Neutrophils/100 WBC (Bld) 82.8 % High 37.0-75.0 [facility] Comment on above: Performed By: #### A CBC BMPF #### Testing performed at [address] [address] Erythrocyte distribution width (RBC) [Ratio] 13.9 % Normal 11.5-14.5 [facility] Comment on above: Performed By: #### A CBC, BMPF #### Testing performed at [address] [address] Hematocrit (Bld) [Volume fraction] 31.5 % Low 36.0-48.0 [facility] Comment on above: Performed By: #### A CBC BMPF #### Testing performed at [address] [address] Hemoglobin (Bld) [Mass/Vol] 10.3 g/dL Low 12.0-16.0 [facility] Comment on above: Performed By: #### A CBC, BMPF #### Testing performed at [address] [address] MCH (RBC) [Entitic mass] 30.1 pg Normal 26.0-35.0 [facility] Comment on above: Performed By: #### A CBC BMPF #### Testing performed at [address] [address] MCHC (RBC) [Mass/Vol] 32.8 g/dL Normal 27.0-37.0 [facility] Comment on above: Performed By: #### A CBC, BMPF #### Testing performed at [address] [address] MCV (RBC) [Entitic vol] 91.7 fL Normal 80.0-100.0 [facility] Comment on above: Performed By: #### A CBC, BMPF #### Testing performed at [address] [address] Platelet mean volume (Bld) [Entitic vol] 8.1 fL Normal 7.4-11.0 [facility] Comment on above: Performed By: #### A CBC, BMPF #### Testing performed at [address] [address] Platelets (Bld) [#/Vol] 256 10*3/uL Normal 130-400 [facility] Comment on above: Performed By: #### A CBCAYO #### Testing performed at [address] [address] RBC (Bld) [#/Vol] 3.43 10*6/uL Low 4.0-5.4 [facility] Comment on above: Performed By: #### A CBC BMPF #### Testing performed at [address] [address] WBC (Bld) [#/Vol] 11.9 10*3/uL High 3.6-11.0 [facility] Comment on above: Performed By: #### A CBCBESTF #### Testing performed at [address] [address] POCT GLUCOSEon 01-30-2023 Glucose [Mass/Vol] 252 mg/dL High 70-100 [facility] ADVANCED MANAGER Normal [facility] MRSA SCREENon 01-29-2023 MRSA DNA DAISY+probe Ql (Unsp spec) Negative Normal NEGATIVE [facility] Comment on above: Performed By: #### M RSAST #### Testing performed at [address] [address] STAPH AUREUS SCREEN Negative Normal NEGATIVE [facility] Comment on above: Result Comment: TEST ING PERFORMED BY PCR Performed By: #### M RSAST #### Testing performed at [address] [address] POCT GLUCOSEon 01-29-2023 Glucose [Mass/Vol] 194 mg/dL High 70-100 [facility] ADVANCED MANAGER [id number] Normal [facility] Glucose [Mass/Vol] 110 mg/dL High 70-100 [facility] ADVANCED MANAGER [id number] [facility] REPEAT ABO/RHon 01-29-2023 REPEAT ABO/RH Positive Normal [facility] Comment on above: Performed By: #### R ABRH #### Testing performed at [address] [address] PANCREATIC ELASTASE FECALon 01-22-2023 Pancreatic Elastase, Fecal 128 ug Elast./g Critically low >200 [facility] Comment on above: Result Comment: Jihan re Pancreatic Insufficiency: <100 Moderate Pancreatic Insufficiency: 100 - 200 Normal: >200 Performed By: #### H PYLORI #### [facility] [address] [place] [address] Dr. Irene Cedillo LACTOFERRIN FECAL QUANTon Lactoferrin, Fecal, Quant. <1.00 Normal 0.00-7.24 [facility] Comment on above: Result Comment: Re sults verified by repeat testing . Baseline (normal) 0.00 - 7.24 Elevated >7.24 . An elevated result is indicative of the presence of fecal lactoferrin, a marker of intestinal inflammation. A normal result does not exclude the presence of intestinal inflammation. The test can be used as an in vitro diagnostic aid to distinguish patients with active inflammatory bowel disease (IBD) from those with non-inflammatory irritable bowel syndrome (IBS). Performed By: #### S EDR #### [facility] [address] [place] [address] Dr. Irene Cedillo CALPROTECTIN, FECALon 2022 Calprotectin, Fecal 139 ug/g Critically high 0-120 [facility] Comment on above: Result Comment: Conc entration Interpretation Follow-Up <16 - 50 ug/g Normal None >50 -120 ug/g Borderline Re-evaluate in 4-6 weeks >120 ug/g Abnormal Repeat as clinically indicated Performed By: #### H PYLORI #### [facility] [address] [place] [address] Dr. Irene Cedillo PANCREATIC ELASTASE FECALon 01-15-2023 Pancreatic Elastase, Fecal 161 ug Elast./g Critically low >200 [facility] Comment on above: Result Comment: Jihan re Pancreatic Insufficiency: <100 Moderate Pancreatic Insufficiency: 100 - 200 Normal: >200 Performed By: #### A NTI-NICOLLE #### [facility] [address] [place] [address] Dr. Irene Cedillo TSHon 01-09-2023 TSH 1.630 uIU/mL Normal 0.358-3.740 [facility] Comment on above: Performed By: #### T SH #### [facility] [address] [place], [place] [address] Dr. Irene Cedillo CBCon 01-04-2023 ABSOLUTE BAS 0.1 10*3/uL Normal 0.0-0.2 [facility] Comment on above: Performed By: #### T SCC #### Testing performed at [address] [address] ABSOLUTE EOS 0.6 10*3/uL Normal 0.0-0.7 [facility] Comment on above: Performed By: #### T SCC #### Testing performed at [address] [address] ABSOLUTE NEUTROPHIL COUNT 2.4 10*3/uL Normal 1.4-6.5 [facility] Comment on above: Performed By: #### T SCC #### Testing performed at [address] [address] Basophils/100 WBC (Bld) 1.1 % Normal 0.0-2.0 [facility] Comment on above: Performed By: #### T SCC #### Testing performed at [address] [address] DTYPE AUTO DIFF Normal [facility] Comment on above: Performed By: #### T SCC #### Testing performed at [address] [address] Eosinophils/100 WBC (Bld) 10.6 % Normal 0.0-11.0 [facility] Comment on above: Performed By: #### T SCC #### Testing performed at [address] [address] Lymphocytes (Bld) [#/Vol] 2.3 10*3/uL Normal 1.2-3.4 [facility] Comment on above: Performed By: #### T SCC #### Testing performed at [address] [address] Lymphocytes/100 WBC (Bld) 39.2 % Normal 20.0-55.0 [facility] Comment on above: Performed By: #### T SCC #### Testing performed at [address] [address] Monocytes (Bld) [#/Vol] 0.4 10*3/uL Normal 0.0-0.7 [facility] Comment on above: Performed By: #### T SCC #### Testing performed at [address] [address] Monocytes/100 WBC (Bld) 7.4 % Normal 0.0-10.0 [facility] Comment on above: Performed By: #### T SCC #### Testing performed at [address] [address] Neutrophils/100 WBC (Bld) 41.7 % Normal 37.0-75.0 [facility] Comment on above: Performed By: #### T SCC #### Testing performed at [address] [address] Erythrocyte distribution width (RBC) [Ratio] 13.9 % Normal 11.5-14.5 [facility] Comment on above: Performed By: #### T SCC #### Testing performed at [address] [address] Hematocrit (Bld) [Volume fraction] 38.8 % Normal 36.0-48.0 [facility] Comment on above: Performed By: #### T SCC #### Testing performed at [address] [address] Hemoglobin (Bld) [Mass/Vol] 13.0 g/dL Normal 12.0-16.0 [facility] Comment on above: Performed By: #### T SCC #### Testing performed at [address] [address] MCH (RBC) [Entitic mass] 30.4 pg Normal 26.0-35.0 [facility] Comment on above: Performed By: #### T SCC #### Testing performed at [address] [address] MCHC (RBC) [Mass/Vol] 33.5 g/dL Normal 27.0-37.0 [facility] Comment on above: Performed By: #### T SCC #### Testing performed at [address] [address] MCV (RBC) [Entitic vol] 90.8 fL Normal 80.0-100.0 [facility] Comment on above: Performed By: #### T SCC #### Testing performed at [address] [place] [address] Platelet mean volume (Bld) [Entitic vol] 7.6 fL Normal 7.4-11.0 [facility] Comment on above: Performed By: #### T SCC #### Testing performed at [address] [place] [address] Platelets (Bld) [#/Vol] 293 10*3/uL Normal 130-400 [facility] Comment on above: Performed By: #### T SCC #### Testing performed at [address] [address] RBC (Bld) [#/Vol] 4.27 10*6/uL Normal 4.0-5.4 [facility] Comment on above: Performed By: #### T SCC #### Testing performed at [address] [address] WBC (Bld) [#/Vol] 5.8 10*3/uL Normal 3.6-11.0 [facility] Comment on above: Performed By: #### T SCC #### Testing performed at [address] [place] [address] CMP FASTINGon 01-04-2023 A:G RATIO 1.4 RATIO Normal 1.3-2.2 [facility] Comment on above: Performed By: #### T SCC #### Testing performed at [address] [place] [address] ALBUMIN 3.9 G/dl Normal 3.5-5.0 [facility] Comment on above: Performed By: #### T SCC #### Testing performed at [address] [place] [address] ALP [Catalytic activity/Vol] 67 U/L Normal 38-126 [facility] Comment on above: Performed By: #### T SCC #### Testing performed at [address] [place] [address] ALT [Catalytic activity/Vol] 21 U/L Normal 14-54 [facility] Comment on above: Performed By: #### T SCC #### Testing performed at [address] [place] [address] AST [Catalytic activity/Vol] 23 U/L Normal 15-41 [facility] Comment on above: Performed By: #### T SCC #### Testing performed at [address] [address] Bilirubin [Mass/Vol] 0.4 mg/dL Normal 0.2-1.2 [facility] Comment on above: Performed By: #### T SCC #### Testing performed at [address] [address] Calcium [Mass/Vol] 9.5 mg/dL Normal 8.4-10.2 [facility] Comment on above: Performed By: #### T SCC #### Testing performed at [address] [address] Chloride [Moles/Vol] 103 mmol/L Normal 98-107 [facility] Comment on above: Performed By: #### T SCC #### Testing performed at [address] [address] CO2 [Moles/Vol] 53 mmol/L High 22-30 [facility] Comment on above: Performed By: #### T SCC #### Testing performed at [address] [address] Creatinine [Mass/Vol] 0.67 mg/dL Normal 0.52-1.04 [facility] Comment on above: Performed By: #### T SCC #### Testing performed at [address] [place] [address] EST. GFR, 114 ml/min/1.73sq.m [facility] Comment on above: Performed By: #### T SCC #### Testing performed at [address] [place] [address] EST. GFR,Non 94 ml/min/1.73sq.m [facility] Comment on above: Performed By: #### T SCC #### Testing performed at [address] [place] [address] GFR Information Average GFR for 60-6 9 years old = 85. Normal [facility] Comment on above: Result Comment: Technical Staff Engineer ruth Kidney disease, GFR = <60. Kidney failure, GFR = <15. The GFR estimate is not adjusted for extreme body surface area or acute process, nor has it been validated for women or ethnic groups other than and . Performed By: #### T SCC #### Testing performed at [address] [address] Glucose [Mass/Vol] 131 mg/dL High 70-100 [facility] Comment on above: Result Comment: NORMAL <100 mg/dL PREDIABETES 101-126 mg/dL DIABETES 126 mg/dL or higher Performed By: #### T SCC #### Testing performed at [address] [address] Potassium [Moles/Vol] 4.6 mmol/L Normal 3.5-5.1 [facility] Comment on above: Performed By: #### T SCC #### Testing performed at [address] [address] Protein [Mass/Vol] 6.6 g/dL Normal 6.3-8.2 [facility] Comment on above: Performed By: #### T SCC #### Testing performed at [address] [address] Sodium [Moles/Vol] 137 mmol/L Normal 136-145 [facility] Comment on above: Performed By: #### T SCC #### Testing performed at [address] [address] Urea nitrogen [Mass/Vol] 24 mg/dL High 7-20 [facility] Comment on above: Performed By: #### T SCC #### Testing performed at [address] [address] HEMOGLOBIN A1Con 01-04-2023 Glucose [Mass/Vol] 140 mg/dL Normal [facility] Comment on above: Performed By: #### H A1CT #### Testing performed at [address] [address] HbA1c (Bld) [Mass fraction] 6.5 % High <6 [facility] Comment on above: Result Comment: NORMAL <5.7% PREDIABETES 5.7-6.4% DIABETES 6.5% OR HIGHER Performed By: #### H A1CT #### Testing performed at [address] [address] MRSA SCREENon 01-04-2023 MRSA DNA DAISY+probe Ql (Unsp spec) Negative Normal NEGATIVE [facility] Comment on above: Performed By: #### T SCC #### Testing performed at [address] [address] STAPH AUREUS SCREEN Positive Abnormal NEGATIVE [facility] Comment on above: Result Comment: TEST ING PERFORMED BY PCR Performed By: #### T SCC #### Testing performed at [address] [place] [address] PROTIMEon 01-04-2023 INR Coag (PPP) [Relative time] 0.97 {INR} Normal 0.85-1.10 [facility] Comment on above: Result Comment: 2.0-3.0 THERAPEUTIC RANGE 2.5-3.5 MECHANICAL VALVE RANGE Performed By: #### T SCC #### Testing performed at [address] [address] PT Coag (PPP) [Time] 13.0 s Normal 11.8-14.4 [facility] Comment on above: Performed By: #### T SCC #### Testing performed at [address] [address] TYPE AND SCREEN CROSSMATCH C ONVERTIBLEon 01-04-2023 TYPE AND SCREEN CROSSMATCH CONVERTIBLE UNITS ORDERED 2 WORKUP EXPIRES 02/01/2023,2359 ABO/RH(D) AB POSITIVE ANTIBODY SCREEN NEGATIVE ARM BAND NUMBER [id number] Normal [facility] Comment on above: Performed By: #### T SCC #### Testing performed at [address] [place] [address] URINE MACROSCOPICon 01-05-20 23 Bilirubin Ql (U) Negative Normal NEGATIVE [facility] Comment on above: Performed By: #### U MAC #### Testing performed at [address] [address] Clarity (U) CLEAR Normal CLEAR [facility] Comment on above: Performed By: #### U MAC #### Testing performed at [address] [place] [address] Color (U) YELLOW Normal YELLOW [facility] Comment on above: Performed By: #### U MAC #### Testing performed at [address] [address] Glucose Ql (U) Negative Normal NEGATIVE [facility] Comment on above: Performed By: #### U MAC #### Testing performed at [address] [address] pH (U) 7.0 [pH] Normal 5.0-7.0 [facility] Comment on above: Performed By: #### U MAC #### Testing performed at [address] [address] URINE HEMOGLOBIN Negative Normal NEGATIVE [facility] Comment on above: Performed By: #### U MAC #### Testing performed at [address] [address] URINE KETONE TRACE Abnormal NEGATIVE [facility] Comment on above: Performed By: #### U MAC #### Testing performed at [address] [address] URINE LEUKOTEST Negative Normal NEGATIVE [facility] Comment on above: Performed By: #### U MAC #### Testing performed at [address] [address] URINE NITRATES Negative Normal NEGATIVE [facility] Comment on above: Performed By: #### U MAC #### Testing performed at [address] [address] URINE SPEC GRAVITY 1.025 Normal 1.010-1.025 [facility] Comment on above: Performed By: #### U MAC #### Testing performed at [address] [address] URINE TOTAL PROTEIN Negative Normal NEGATIVE [facility] Comment on above: Performed By: #### U MAC #### Testing performed at [address] [place] [address] Urobilinogen Qn (U) 0.2 {Junior'U}/dL Normal 0.2-1.0 [facility] Comment on above: Performed By: #### U MAC #### Testing performed at [address] [address] ANTIHISTIONE ANTIBODIESon Anti-histone Abs 0.5 Units Normal 0.0-0.9 [facility] Comment on above: Result Comment: Nega tive <1.0 Weak Positive 1.0 - 1.5 Moderate Positive 1.6 - 2.5 Strong Positive >2.5 Performed By: #### C K, CRP #### [facility] [address] [address] [address] Irene Cedillo LARGE JOINT/BURSA INJECTION AND/OR ASPIRATION: R kneeon 11-30-2022 Sagar Krause MD 11/30/2022 3:00 PM LARGE JOINT/BURSA INJECTION AND/OR ASPIRATION: R knee Date/Time: 11/30/2022 1:30 PM Supporting Documentation Indications: pain Procedure Details: Location: knee - R knee Local Anesthetic: ethyl chloride (cold spray) Needle size: 22 G Medication Verification: I have personally verified and performed the final check of the medication(s) used in this procedure prior to administration. The following items were included during the verification process for medication(s) administered: drug name, strength, volume, expiration, physical integrity and appearance of the medication(s). Medications administered: 5 mL Lidocaine 1% (PF) 1 %; 1 mL triamcinolone 40 MG/ML Patient tolerance: patient tolerated the procedure well with no immediate complications The patient was prepped with Betadine. [facility] Radiology Study observation (narrative) [facility] US PELVIS AND TRANSVAGon US PELVIS AND TRANSVAG EXAM: US PELVIS AND TRANSVAG HISTORY: Left lower quadrant pain COMPARISON: None. TECHNIQUE: Pelvic sonography was performed utilizing grayscale and color Doppler technique. FINDINGS/ IMPRESSION: 1. Hysterectomy. 2. Ovaries not visualized. 3. No adnexal mass. 4. No significant free fluid. Electronically authenticated by: BRI BERGER Date: 2022-11-10 15:54 Normal [facility] LUPUS ANTICOAGULANT PROFILEo n 10-27-2022 Anticardiolipin Ab, IgG <10 Normal [facility] Comment on above: Result Comment: Refe kike Range: Negative: <15 Indeterminate: 15 - 20 Low to medium positive: >20 - 80 High positive: >80 Performed By: #### L UPUSAC #### [facility] [address] [address] [address] Irene Cedillo Anticardiolipin Ab, IgM <10 Normal [facility] Comment on above: Result Comment: Refe rence Range: Negative: <13 Indeterminate: 13 - 20 Low to medium positive: >20 - 80 High positive: >80 Performed By: #### L UPUSAC #### [facility] [address] [address] [address] Irene Cedillo APTT 1:1 JEWEL BLOCKER AND SAWYER NIY Normal [facility] Comment on above: Result Comment: Test ing Not Indicated This test was developed and its performance characteristics determined by [facility]. It has not been cleared or approved by the [place] Food and Drug Administration. Performed By: #### L UPUSAC #### [facility] [address] [address] [address] Irene Cedillo APTT 1:1 Saline NIY Normal [facility] Comment on above: Result Comment: Test ing Not Indicated This test was developed and its performance characteristics determined by [facility]. It has not been cleared or approved by the [place] Food and Drug Administration. Performed By: #### L UPUSAC #### [facility] [address] [address] [address] Irene Cedillo aPTT Coag (Bld) [Time] 23.0 s Normal [facility] Comment on above: Result Comment: This test has not been validated for monitoring unfractionated heparin therapy. aPTT-based therapeutic ranges for unfractionated heparin therapy have not been established. Consider ordering Heparin anti-Xa (unfractionated). Reference Range: 18 years and older: 22.9 - 30.2 Performed By: #### L UPUSAC #### [facility] [address] [address] [address] Irene Cedillo Beta-2 Glycoprotein I, IgA <10 Normal [facility] Comment on above: Result Comment: The reference interval reflects a 3SD or 99th percentile interval. Reference Range: Negative: <26 Performed By: #### L UPUSAC #### [facility] [address] [address] [address] Irene Cedillo Beta-2 Glycoprotein I, IgG <10 Normal [facility] Comment on above: Result Comment: The reference interval reflects a 3SD or 99th percentile interval. Reference Range: Negative: <21 Performed By: #### L UPUSAC #### [facility] [address] [address] [address] Irene Cedillo Beta-2 Glycoprotein I, IgM <10 Normal [facility] Comment on above: Result Comment: The reference interval reflects a 3SD or 99th percentile interval. Reference Range: Negative: <33 Performed By: #### L UPUSAC #### [facility] [address] [address] [address] Irene Cedillo DRVVT Confirm Seconds NIY Normal [facility] Comment on above: Result Comment: Test ing Not Indicated Performed By: #### L UPUSAC #### [facility] [address] [address] [address] Irene Cedillo DRVVT Ratio NIY Normal [facility] Comment on above: Result Comment: Test ing Not Indicated Performed By: #### L UPUSAC #### [facility] [address] [place] [address] Dr. Irene Cedillo DRVVT Screen Seconds 33.2 sec Normal [facility] [facility] Comment on above: Result Comment: Refe rence Range: <= 47.0 Performed By: #### L UPUSAC #### [facility] [address] [place] [address] Dr. Irene Cedillo Hexagonal Phospholipid Neutral 0 sec Normal The [facility] Comment on above: Result Comment: This value is NEGATIVE. This is a qualitative assay and is therefore reported as positive for lupus anticoagulant or negative. The quantitative value is provided as an aid in diagnosis. Reference Range: 0 - 11 Performed By: #### L UPUSAC #### [facility] [address] [address] [address] Irene Cedillo INR Coag (PPP) [Relative time] 0.9 {INR} Normal [facility] Comment on above: Result Comment: Refe rence Range: >1 month: 0.9 - 1.2 Performed By: #### L UPUSAC #### [facility] [address] [place] [address] Dr. Irene Cedillo LAC Interpretation Comment Normal The [facility] Comment on above: Result Comment: A arelis pus anticoagulant is not detected. All antiphospholipid antibodies evaluated are normal. As antibody titers may fluctuate with time, repeat testing may be indicated. Please contact [employer] [facility] if further clarification is needed. Performed By: #### L UPUSAC #### [facility] [address] [place] [address] Dr. Irene Cedillo Platelet Neutralization 0.0 sec Normal [facility] Comment on above: Result Comment: Refe rence Range: 0.0 - 3.0 This test was developed and its performance characteristics determined by [employer]. It has not been cleared or approved by the Food and Drug Administration. Performed By: #### L UPUSAC #### [facility] [address] [place] [address] Dr. Irene Cedillo PT Coag (PPP) [Time] 10.0 s Normal [facility] Comment on above: Result Comment: Refe rence Range: 18 years and older: 9.1 - 12.0 Performed By: #### L UPUSAC #### [facility] [address] [place] [address] Dr. Irene Cedillo Thrombin Time 15.5 sec Normal The [facility] Comment on above: Result Comment: Refe rence Range: 0.0 - 23.0 Performed By: #### L UPUSAC #### [facility] [address] [place] [address] Dr. Irene Cedillo ADRI by IFAon 10-23-2022 Antinuclear Antibodies, IFA Positive Abnormal The [facility] Comment on above: Result Comment: Nega tive <1:80 Borderline 1:80 Positive >1:80 Performed By: #### T SH #### [facility] [address] [place] [address] Dr. Irene Cedillo Centriole Pattern Normal [facility] Comment on above: Performed By: #### T SH #### [facility] [address] [place] [address] Dr. Irene Cedillo Centromere Pattern Normal The [facility] Comment on above: Performed By: #### T SH #### [facility] [address] [place] [address] Dr. Irene Cedillo Homogeneous Pattern 1:320 Critically high The [facility] Comment on above: Result Comment: ICAP nomenclature: AC-1 Performed By: #### T SH #### [facility] [address] [address] [address] Irene Cedillo Midbody Pattern Normal [facility] Comment on above: Performed By: #### T SH #### [facility] [address] [place], [place] [address] Dr. Irene Cedillo Note: Comment Normal The [facility] Comment on above: Result Comment: For more information about Hep-2 cell patterns use ANApatterns.org, the official website for the International Consensus on Antinuclear Antibody (ADRI) Patterns (ICAP). A positive ADRI result may occur in healthy individuals (low titer) or be associated with a variety of diseases. See interpretation chart which is not all inclusive: . Pattern Antigen Detected Suggested Disease Association Homogeneous DNA(ds,ss), SLE - High titers Nucleosomes, Histones Drug-induced SLE Speckled Sm, MORTGAGE BROKER, SCL-70, SLE,MCTD,PSS (diffuse form), SS-A/SS-B Sjogrens Nucleolar SCL-70, PM-1/SCL High titers Scleroderma, PM/DM Centromere Centromere PSS (limited form) w/Crest syndrome variable Nuclear Dot [id number] Primary Biliary Cirrhosis Nuclear GP210, Primary Biliary Cirrhosis Membrane margie A,B,C Performed By: #### T SH #### [facility] [address] [place] [address] Dr. Irene Cedillo Nuclear Dot Pattern Normal [facility] Comment on above: Performed By: #### T SH #### [facility] [address] [place] [address] Dr. Irene Cedillo Nuclear Membrane Pattern Normal The [facility] Comment on above: Performed By: #### T SH #### [facility] [address] [place] [address] Dr. Irene Cedillo Nucleolar Pattern Normal [facility] Comment on above: Performed By: #### T SH #### [facility] [address] [place] [address] Dr. Irene Cedillo PCNA Pattern Normal The [facility] Comment on above: Performed By: #### T SH #### [facility] [address] [place] [address] Dr. Irene Cedillo Speckled Pattern Normal The [facility] Comment on above: Performed By: #### T SH #### [facility] [address] [place] [address] Dr. Irene Cedillo Spindle Apparatus Pattern Normal [facility] Comment on above: Performed By: #### T SH #### [facility] [address] [place] [address] Dr. Irene Cedillo ALDOLASEon 10-19-2022 Aldolase 3.6 U/L Normal 3.3-10.3 [facility] Comment on above: Performed By: #### T SH #### [facility] [address] [place] [address] Dr. Irene Cedillo ANTI-CENTROMERE B ABon 10-19 Anti-Centromere B Antibodies <0.2 Normal 0.0-0.9 [facility] Comment on above: Performed By: #### S EDR #### [facility] [address] [place] [address] Dr. Irene Cedillo ANTI-DNA DS ABon 10-19-2022 Anti-DNA (DS) Ab Qn 1 IU/mL Normal 0-9 [facility] Comment on above: Result Comment: Nega tive <5 Equivocal 5 - 9 Positive >9 Performed By: #### C CPAB #### [facility] [address] [place] [address] Dr. Irene Cedillo ANTI-NICOLLE-1on 10-19-2022 Anti-Nicolle-1 <0.2 Normal 0.0-0.9 [facility] Comment on above: Performed By: #### A NTI-NICOLLE #### [facility] [address] [place] [address] Dr. Irene Cedillo ANTICHROMATIN ANTIBODIESon 0 - Antichromatin Antibodies 0.5 AI Normal 0.0-0.9 [facility] Comment on above: Performed By: #### C K, CRP #### [facility] [address] [place] [address] Dr. Irene Cedillo ANTIEXTRACTABLE NUCLEAR ANTI BODIESon 10-19-2022 MORTGAGE BROKER Antibodies <0.2 Normal 0.0-0.9 [facility] Comment on above: Performed By: #### H PYLORI #### [facility] [address] [address] [address] Irene Cedillo Performed By: #### C CPAB #### [facility] [address] [place] [address] Dr. Irene Cedillo Murray Antibodies <0.2 Normal 0.0-0.9 [facility] Comment on above: Performed By: #### H PYLORI #### [facility] [address] [place] [address] Dr. Irene Cedillo Performed By: #### C CPAB #### [facility] [address] [place] [address] Dr. Irene Cedillo ANTISCLERODERMA ABon 023 Antiscleroderma-70 Antibodies <0.2 Normal 0.0-0.9 [facility] Comment on above: Performed By: #### A NSCLER #### [facility] [address] [place] [address] Dr. Irene Cedillo C3 and C4 COMPLEMENTon 10-19 Complement C3, Serum 171 mg/dL Critically high 82-167 [facility] Comment on above: Performed By: #### H PYLORI #### [facility] [address] [place] [address] Dr. Irene Cedillo Complement C4, Serum 41 mg/dL Critically high 12-38 [facility] Comment on above: Performed By: #### H PYLORI #### [facility] [address] [place] [address] Dr. Irene Cedillo COMPLEMENT TOTAL (CH50)on Complement, Total (CH50) >60 Normal >41 [facility] Comment on above: Result Comment: Age Male Female 1 - 30 days Not Estab. Not Estab. 31 days - 6 months >32 >20 7 months - 17 years >39 >39 >17 years >41 >41 NOTE: The adult ( >17 years ) reference interval range is used to flag abnormals on this report. If the patient is 17 years old or younger, use the table above to determine out of range values. Performed By: #### C K, CRP #### [facility] [address] [place] [address] Dr. Irene Ceidllo CYCLIC CITRULLINATED PEPTIDE AB (CCP)on 10-19-2022 CCP Antibodies IgG/IgA 3 units Normal 0-19 [facility] Comment on above: Result Comment: Nega tive <20 Weak positive 20 - 39 Moderate positive 40 - 59 Strong positive >59 Performed By: #### C CPAB #### [facility] [address] [address] [address] Irene Cedillo MITICHONDRIAL (M2) ANTIBODYo n 10-19-2022 Mitochondrial (M2) Antibody <20.0 Normal 0.0-20.0 [facility] Comment on above: Result Comment: Nega tive 0.0 - 20.0 Equivocal 20.1 - 24.9 Positive >24.9 . Mitochondrial (M2) Antibodies are found in 90-96% of patients with primary biliary cirrhosis. Performed By: #### C K, CRP #### [facility] [address] [place] [address] Dr. Irene Cedillo RHEUMATOID FACTORon 10-19-19 23 RA Latex Turbid. <10.0 Normal <14.0 [facility] Comment on above: Performed By: #### C CPAB #### [facility] [address] [address] [address] Irene Cedillo RPR QUANTon 10-19-2022 Rapid Plasma Reagin, Quant Non-Reactive Normal NonRea<1:1 [facility] Comment on above: Result Comment: Plea se Note: This test does not meet current guidelines for screening and diagnosis of syphilis. This test is intended for following treatment response in patients being treated for syphilis infection. To screen for syphilis infection, a reflex cascade that includes both RPR and a treponema-specific assay should be utilized, such as Treponema pallidum (Syphilis) Screening Slope (188119) or Rapid Plasma Reagin (RPR) Test With Reflex to Quantitative RPR and Confirmatory Treponema pallidum Antibodies (291760). Performed By: #### T SH #### [facility] [address] [place] [address] Dr. Irene Cedillo SJOGRENS ANTIBODIES (Anti SS A/B)on 10-19-2022 Sjogren's Anti-SS-A <0.2 Normal 0.0-0.9 [facility] Comment on above: Performed By: #### S EDR #### [facility] [address] [place] [address] Dr. Irene Cedillo Sjogren's Anti-SS-B <0.2 Normal 0.0-0.9 [facility] Comment on above: Performed By: #### S EDR #### [facility] [address] [place] [address] Dr. Irene Cedillo SMOOTH MUSCLE ANTIBODYon Actin (Smooth Muscle) Antibody 5 Units Normal 0-19 [facility] Comment on above: Result Comment: Nega tive 0 - 19 Weak positive 20 - 30 Moderate to strong positive >30 . Actin Antibodies are found in 52-85% of patients with autoimmune hepatitis or chronic active hepatitis and in 22% of patients with primary biliary cirrhosis. Performed By: #### C K, CRP #### [facility] [address] [place] [address] Dr. Irene Cedillo THYROGLOBULIN ABon Thyroglobulin Antibody <1.0 Normal 0.0-0.9 [facility] Comment on above: Result Comment: Thyr oglobulin Antibody measured by [employer] Performed By: #### C CPAB #### [facility] [address] [place] [address] Dr. Irene Cedillo THYROID PEROXIDASE ABon 020 Thyroid Peroxidase (TPO) Ab 11 IU/mL Normal 0-34 [facility] Comment on above: Performed By: #### T SH #### [facility] [address] [place] [address] Dr. Irene Cedillo CBC AUTO DIFFon 10-18-2022 BASO # 0.1 103/ul Normal 0.0-0.1 [facility] Comment on above: Performed By: #### C K, CRP #### [facility] [address] [place] [address] Dr. Irene Cedillo Basophils/100 WBC (Bld) 0.7 % Normal 0.2-2.0 [facility] Comment on above: Performed By: #### C K, CRP #### [facility] [address] [place] [address] Dr. Irene Cedillo EO # 0.2 103/ul Normal 0.0-0.7 [facility] Comment on above: Performed By: #### C K, CRP #### [facility] [address] [place] [address] Dr. Irene Cedillo Eosinophils/100 WBC (Bld) 2.8 % Normal 0.9-7.0 [facility] Comment on above: Performed By: #### C K, CRP #### [facility] [address] [place] [address] Dr. Irene Cedillo Erythrocyte distribution width (RBC) [Ratio] 13.4 % Normal 11.0-15.0 [facility] Comment on above: Performed By: #### C K, CRP #### [facility] [address] [place] [address] Dr. Irene Cedillo Hematocrit (Bld) [Volume fraction] 43.6 % Normal 36.0-48.0 [facility] Comment on above: Performed By: #### C K, CRP #### [facility] [address] [place] [address] Dr. Irene Cedillo Hemoglobin (Bld) [Mass/Vol] 14.1 g/dL Normal 12.0-16.0 [facility] Comment on above: Performed By: #### C K, CRP #### [facility] [address] [place] [address] Dr. Irene Cedillo IG # 0.01 10e3/ul Normal 0.00-0.03 [facility] Comment on above: Performed By: #### C K, CRP #### [facility] [address] [place] [address] Dr. Irene Cedillo IG % 0.1 % Normal 0.0-0.5 [facility] Comment on above: Performed By: #### C K, CRP #### [facility] [address] [place] [address] Dr. Irene Cedillo LYMPH # 2.5 103/ul Normal 1.2-3.8 [facility] Comment on above: Performed By: #### C K, CRP #### [facility] [address] [place] [address] Dr. Irene Cedillo Lymphocytes/100 WBC (Bld) 35.9 % Normal 20.5-60.0 [facility] Comment on above: Performed By: #### C K, CRP #### [facility] [address] [place] [address] Dr. Irene Cedillo MANUAL DIFF REQ NO Normal [facility] Comment on above: Performed By: #### C K, CRP #### [facility] [address] [place] [address] Dr. Irene Cedillo MCH (RBC) [Entitic mass] 29.6 pg Normal 26.7-34.0 [facility] Comment on above: Performed By: #### C K, CRP #### [facility] [address] [place] [address] Dr. Irene Cedillo MCHC (RBC) [Mass/Vol] 32.3 g/dL Normal 29.9-35.2 [facility] Comment on above: Performed By: #### C K, CRP #### [facility] [address] [place] [address] Dr. Irene Cedillo MCV (RBC) [Entitic vol] 91.6 fL Normal 81.0-99.0 [facility] Comment on above: Performed By: #### C K, CRP #### [facility] [address] [place] [address] Dr. Irene Cedillo MONO # 0.4 103/ul Normal 0.3-0.8 [facility] Comment on above: Performed By: #### C K, CRP #### [facility] [address] [place] [address] Dr. Irene Cedillo Monocytes/100 WBC (Bld) 5.2 % Normal 1.7-12.0 [facility] Comment on above: Performed By: #### C K, CRP #### [facility] [address] [place] [address] Dr. Irene Cedillo NEUT # 3.8 103/ul Normal 1.4-6.5 [facility] Comment on above: Performed By: #### C K, CRP #### [facility] [address] [place] [address] Dr. Irene Cedillo Neutrophils/100 WBC (Bld) 55.3 % Normal 43.0-75.0 [facility] Comment on above: Performed By: #### C K, CRP #### [facility] [address] [place] [address] Dr. Irene Cedillo Platelet mean volume (Bld) [Entitic vol] 9.7 fL Normal 9.5-13.5 [facility] Comment on above: Performed By: #### C K, CRP #### [facility] [address] [place] [address] Dr. Irene Cedillo PLT 271 103/ul Normal 150-450 [facility] Comment on above: Performed By: #### C K, CRP #### [facility] [address] [place] [address] Dr. Irene Cedillo RBC 4.76 106/ul Normal 4.20-5.40 [facility] Comment on above: Performed By: #### C K, CRP #### [facility] [address] [place] [address] Dr. Irene Cedillo WBC 6.9 103/ul Normal 4.0-11.0 [facility] Comment on above: Performed By: #### C K, CRP #### [facility] [address] [place] [address] Dr. Irene Cedillo CPKon 10-18-2022 CK [Catalytic activity/Vol] 57 U/L Normal 26-192 [facility] Comment on above: Performed By: #### T SH #### [facility] [address] [place] [address] Dr. Irene Cedillo CRPon 10-18-2022 CRP 0.8 mg/dL Normal <=1.0 [facility] Comment on above: Performed By: #### T SH #### [facility] [address] [place] [address] Dr. Irene Cedillo FREE T4on 10-18-2022 Free T4 [Mass/Vol] 1.07 ng/dL Normal 0.76-1.46 [facility] Comment on above: Performed By: #### C K, CRP #### [facility] [address] [place] [address] Dr. Irene Cedillo PROF 14(COMP METB)on 023 Albumin [Mass/Vol] 3.9 g/dL Normal 3.4-5.0 [facility] Comment on above: Performed By: #### T SH #### [facility] [address] [place] [address] Dr. Irene Cedillo Albumin/Globulin [Mass ratio] 1.1 {ratio} Normal [facility] Comment on above: Performed By: #### T SH #### [facility] [address] [place] [address] Dr. Irene Cedillo ALP [Catalytic activity/Vol] 90 U/L Normal 46-116 [facility] Comment on above: Performed By: #### T SH #### [facility] [address] [place] [address] Dr. Irene Cedillo ALT [Catalytic activity/Vol] 32 U/L Normal 14-59 [facility] Comment on above: Performed By: #### T SH #### [facility] [address] [place] [address] Dr. Irene Cedillo Anion gap [Moles/Vol] 13.8 mmol/L Normal [facility] Comment on above: Performed By: #### T SH #### [facility] [address] [place] [address] Dr. Irene Cedillo AST [Catalytic activity/Vol] 26 U/L Normal 15-37 [facility] Comment on above: Performed By: #### T SH #### [facility] [address] [place] [address] Dr. Irene Cedillo Bilirubin [Mass/Vol] 0.2 mg/dL Normal 0.2-1.0 [facility] Comment on above: Performed By: #### T SH #### [facility] [address] [place] [address] Dr. Irene Cedillo Calcium [Mass/Vol] 9.1 mg/dL Normal 8.5-10.1 [facility] Comment on above: Performed By: #### T SH #### [facility] [address] [address] [address] Irene Cedillo Chloride [Moles/Vol] 102 mmol/L Normal 98-107 [facility] Comment on above: Performed By: #### T SH #### [facility] [address] [address] [address] Irene Cedillo CO2 [Moles/Vol] 25.4 mmol/L Normal 21.0-32.0 [facility] Comment on above: Performed By: #### T SH #### [facility] [address] [place] [address] Dr. Irene Cedillo Creatinine [Mass/Vol] 0.64 mg/dL Normal 0.55-1.02 [facility] Comment on above: Performed By: #### T SH #### [facility] [address] [place] [address] Dr. Irene Cedillo EGFR-AF BENINESE >60 Normal >=60 [facility] Comment on above: Performed By: #### T SH #### [facility] [address] [place] [address] Dr. Irene Cedillo EGFR-NON AF BENINESE >60 Normal >=60 [facility] Comment on above: Performed By: #### T SH #### [facility] [address] [place] [address] Dr. Irene Cedillo Globulin (S) [Mass/Vol] 3.6 g/dL Normal [facility] Comment on above: Performed By: #### T SH #### [facility] [address] [place] [address] Dr. Irene Cedillo Glucose [Mass/Vol] 132 mg/dL Critically high 74-106 [facility] Comment on above: Performed By: #### T SH #### [facility] [address] [place] [address] Dr. Irene Cedillo Potassium [Moles/Vol] 4.2 mmol/L Normal 3.5-5.1 [facility] Comment on above: Performed By: #### T SH #### [facility] [address] [address] [address] Irene Cedillo Protein [Mass/Vol] 7.5 g/dL Normal 6.4-8.2 [facility] Comment on above: Performed By: #### T SH #### [facility] [address] [address] [address] Irene Cedillo Sodium [Moles/Vol] 137 mmol/L Normal 136-145 [facility] Comment on above: Performed By: #### T SH #### [facility] [address] [address] [address] Irene Cedillo Urea nitrogen [Mass/Vol] 19.0 mg/dL Critically high 7.0-18.0 [facility] Comment on above: Performed By: #### T SH #### [facility] [address] [place] [address] Dr. Irene Cedillo Urea nitrogen/Creatinine [Mass ratio] 29.7 mg/mg Normal [facility] Comment on above: Performed By: #### T SH #### [facility] [address] [place] [address] Dr. Irene Cedillo PROTIMEon 10-18-2022 INR Coag (PPP) [Relative time] {INR} Normal [facility] Comment on above: Performed By: #### C K, CRP #### [facility] [address] [place] [address] Dr. Irene Cedillo INR GUIDELINES SEE BELOW Normal [facility] Comment on above: Result Comment: JUAN RAMON RED INR: 2.0 - 3.0 CONDITIONS NOT LISTED BELOW 2.5 - 3.5 FOR PROSTHETIC HEART VALVE REPLACEMENT 2.5 - 3.5 RECURRENT THROMBOSIS Performed By: #### C K, CRP #### [facility] [address] [place] [address] Dr. Irene Cedillo PT Coag (PPP) [Time] 9.8 s Normal 9.0-11.6 [facility] Comment on above: Performed By: #### C K, CRP #### [facility] [address] [place] [address] Dr. Irene Cedillo PTTon 10-18-2022 aPTT Coag (Bld) [Time] 26.0 s Normal 22.3-36.2 [facility] Comment on above: Performed By: #### C K, CRP #### [facility] [address] [place] [address] Dr. Irene Cedillo SED RATE WESTERGREN 2022 SED RATE 42 mm/hr Critically high <=30 [facility] Comment on above: Performed By: #### S EDR #### [facility] [address] [place] [address] Dr. Irene Cedillo TSHon 10-18-2022 TSH 0.718 uIU/mL Normal 0.358-3.740 [facility] Comment on above: Performed By: #### T SH #### [facility] [address] [place] [address] Dr. Irene Cedillo UA RANDOM W/MICROSCOPICon BACTERIA NONE SEEN Normal NONE SEEN [facility] Comment on above: Performed By: #### C CPAB #### [facility] [address] [place] [address] Dr. Irene Cedillo Bilirubin Ql (U) Negative Normal NEGATIVE [facility] Comment on above: Performed By: #### C CPAB #### [facility] [address] [place] [address] Dr. Irene Cedillo CAST NONE SEEN Normal NONE [facility] Comment on above: Performed By: #### C CPAB #### [facility] [address] [place] [address] Dr. Irene Cedillo Clarity (U) CLEAR Normal CLEAR [facility] Comment on above: Performed By: #### C CPAB #### [facility] [address] [place] [address] Dr. Irene Cedillo Color (U) LT. YELLOW Normal YELLOW [facility] Comment on above: Performed By: #### C CPAB #### [facility] [address] [place] [address] Dr. Irene Cedillo Crystals LM Nom (Urine sed) NONE SEEN Normal NONE SEEN [facility] Comment on above: Performed By: #### C CPAB #### [facility] [address] [place] [address] Dr. Irene Cedillo Epithelial cells LM Ql (Urine sed) NONE SEEN Normal NONE SEEN /RARE [facility] Comment on above: Performed By: #### C CPAB #### [facility] [address] [place] [address] Dr. Irene Cedillo Glucose Ql (U) Negative Normal NEGATIVE [facility] Comment on above: Performed By: #### C CPAB #### [facility] [address] [place] [address] Dr. Irene Cedillo Hemoglobin Ql (U) Negative Normal NEGATIVE [facility] Comment on above: Performed By: #### C CPAB #### [facility] [address] [place] [address] Dr. Irene Cedillo Ketones Ql (U) Negative Normal NEGATIVE [facility] Comment on above: Performed By: #### C CPAB #### [facility] [address] [place] [address] Dr. Irene Cedillo LEUKOCYTES Negative Normal NEGATIVE [facility] Comment on above: Performed By: #### C CPAB #### [facility] [address] [place] [address] Dr. Irene Cedillo MUCOUS NONE SEEN Normal NONE SEEN [facility] Comment on above: Performed By: #### C CPAB #### [facility] [address] [place] [address] Dr. Irene Cedillo Nitrite Ql (U) Negative Normal NEGATIVE [facility] Comment on above: Performed By: #### C CPAB #### [facility] [address] [place] [address] Dr. Irene Cedillo pH (U) 5.5 [pH] Normal 5-9 [facility] Comment on above: Performed By: #### C CPAB #### [facility] [address] [place] [address] Dr. Irene Cedillo RBC 0-2 Normal 0-2 [facility] Comment on above: Performed By: #### C CPAB #### [facility] [address] [place] [address] Dr. Irene Cedillo SPEC GRAVITY 1.020 Normal 1.005-<=1.025 [facility] Comment on above: Performed By: #### C CPAB #### [facility] [address] [place] [address] Dr. Irene Cedillo UA PROTEIN Negative Normal NEGATIVE/ TRACE [facility] Comment on above: Performed By: #### C CPAB #### [facility] [address] [address] [address] Irene Cedillo Urobilinogen Qn (U) 0.2 {Junior'U}/dL Normal 0.2 - 1. 0 [facility] Comment on above: Performed By: #### C CPAB #### [facility] [address] [place] [address] Dr. Irene Cedillo WBC NONE SEEN Normal NONE SEEN [facility] Comment on above: Performed By: #### C CPAB #### [facility] [address] [place] [address] Dr. Irene Cedillo Provider Letteron 09-22-2022 Provider Letter Netta Montoya MD [address] [facility], [place] [address] Re: Emily Shahmonds Date of Visit: 09/22/2022 Dear Netta Montoya MD, Please see attached note regarding our shared mutual patient. Please call with questions or concerns. Thank you Janett Balbuena DPM Let me know if you have any questions or concerns. Sincerely, Janett Balbuena DPM C C Providers: Normal [facility] HLA B 27on 09-21-2022 HLA-B27 Negative Normal [facility] Comment on above: Result Comment: HLA- B*27 Negative B27 allele interpretation for all loci based on IMGT/HLA database version 3.44 This test was developed and its performance characteristics determined by [employer]. It has not been cleared or approved by the Food and Drug Administration. [facility] CLIA ID Number [id number] . This test was performed using PCR (Polymerase Chain Reaction)/SSOP (Sequence Specific Oligonucleotide Probes) technique. SBT (Sequence Based Typing) and/or SSP (Sequence Specific Primers) may be used as supplemental methods when necessary. Please contact [facility] Customer Service at if you have any questions. . Director of HLA Laboratory Dr Kris Salinas, PhD Performed By: #### C CPAB #### [facility] [address] [place] [address] Dr. Irene Cedillo ADRI by IFAon 09-15-2022 Antinuclear Antibodies, IFA Positive Abnormal [facility] Comment on above: Result Comment: Nega tive <1:80 Borderline 1:80 Positive >1:80 Performed By: #### S EDR #### [facility] [address] [place] [address] Dr. Irene Cedillo Centriole Pattern Normal [facility] Comment on above: Performed By: #### S EDR #### [facility] [address] [place] [address] Dr. Irene Cedillo Centromere Pattern Normal [facility] Comment on above: Performed By: #### S EDR #### [facility] [address] [place] [address] Dr. Irene Cedillo Homogeneous Pattern 1:160 Critically high [facility] Comment on above: Result Comment: ICAP nomenclature: AC-1 Performed By: #### S EDR #### [facility] [address] [place] [address] Dr. Irene Cedillo Midbody Pattern Normal [facility] Comment on above: Performed By: #### S EDR #### [facility] [address] [place] [address] Dr. Irene Cedillo Note: Comment Normal [facility] Comment on above: Result Comment: For more information about Hep-2 cell patterns use ANApatterns.org, the official website for the International Consensus on Antinuclear Antibody (ADRI) Patterns (ICAP). A positive ADRI result may occur in healthy individuals (low titer) or be associated with a variety of diseases. See interpretation chart which is not all inclusive: . Pattern Antigen Detected Suggested Disease Association Homogeneous DNA(ds,ss), SLE - High titers Nucleosomes, Histones Drug-induced SLE Speckled Sm, MORTGAGE BROKER, SCL-70, SLE,MCTD,PSS (diffuse form), SS-A/SS-B Sjogrens Nucleolar SCL-70, PM-1/SCL High titers Scleroderma, PM/DM Centromere Centromere PSS (limited form) w/Crest syndrome variable Nuclear Dot [id number] Primary Biliary Cirrhosis Nuclear GP210, Primary Biliary Cirrhosis Membrane margie A,B,C Performed By: #### S EDR #### [facility] [address] [address] [address] Irene Cedillo Nuclear Dot Pattern Normal [facility] Comment on above: Performed By: #### S EDR #### [facility] [address] [address] [address] Irene Cedillo Nuclear Membrane Pattern Normal [facility] Comment on above: Performed By: #### S EDR #### [facility] [address] [address] [address] Irene Cedillo Nucleolar Pattern Normal [facility] Comment on above: Performed By: #### S EDR #### [facility] [address] [address] [address] Irene Cedillo PCNA Pattern Normal [facility] Comment on above: Performed By: #### S EDR #### [facility] [address] [address] [address] Irene Cedillo Speckled Pattern Normal [facility] Comment on above: Performed By: #### S EDR #### [facility] [address] [address] [address] Irene Cedillo Spindle Apparatus Pattern Normal [facility] Comment on above: Performed By: #### S EDR #### [facility] [address] [address] [address] Irene Cedillo CYCLIC CITRULLINATED PEPTIDE AB (CCP)on 09-15-2022 CCP Antibodies IgG/IgA 0 units Normal 0-19 [facility] Comment on above: Result Comment: Nega tive <20 Weak positive 20 - 39 Moderate positive 40 - 59 Strong positive >59 Performed By: #### C CPAB #### [facility] [address] [address] [address] Irene Cedillo RHEUMATOID FACTORon 09-15-19 23 RA Latex Turbid. <10.0 Normal <14.0 [facility] Comment on above: Performed By: #### C K, CRP #### [facility] [address] [address] [address] Irene Cedillo CBC AUTO DIFFon 01-04-2023 BASO # 0.0 103/ul Normal 0.0-0.1 [facility] Comment on above: Performed By: #### H PYLORI #### [facility] [address] [place] [address] Dr. Irene Cedillo Basophils/100 WBC (Bld) 0.4 % Normal 0.2-2.0 [facility] Comment on above: Performed By: #### H PYLORI #### [facility] [address] [place] [address] Dr. Irene Cedillo EO # 0.3 103/ul Normal 0.0-0.7 [facility] Comment on above: Performed By: #### H PYLORI #### [facility] [address] [place] [address] Dr. Irene Cedillo Eosinophils/100 WBC (Bld) 4.4 % Normal 0.9-7.0 [facility] Comment on above: Performed By: #### H PYLORI #### [facility] [address] [place] [address] Dr. Irene Cedillo Erythrocyte distribution width (RBC) [Ratio] 13.2 % Normal 11.0-15.0 [facility] Comment on above: Performed By: #### H PYLORI #### [facility] [address] [place] [address] Dr. Irene Cedillo Hematocrit (Bld) [Volume fraction] 41.5 % Normal 36.0-48.0 [facility] Comment on above: Performed By: #### H PYLORI #### [facility] [address] [place] [address] Dr. Irene Cedillo Hemoglobin (Bld) [Mass/Vol] 14.0 g/dL Normal 12.0-16.0 [facility] Comment on above: Performed By: #### H PYLORI #### [facility] [address] [place] [address] Dr. Irene Cedillo IG # 0.02 10e3/ul Normal 0.00-0.03 [facility] Comment on above: Performed By: #### H PYLORI #### [facility] [address] [place] [address] Dr. Irene Cedillo IG % 0.3 % Normal 0.0-0.5 [facility] Comment on above: Performed By: #### H PYLORI #### [facility] [address] [place] [address] Dr. Irene Cedillo LYMPH # 2.5 103/ul Normal 1.2-3.8 [facility] Comment on above: Performed By: #### H PYLORI #### [facility] [address] [place] [address] Dr. Irene Cedillo Lymphocytes/100 WBC (Bld) 34.4 % Normal 20.5-60.0 [facility] Comment on above: Performed By: #### H PYLORI #### [facility] [address] [place] [address] Dr. Irene Cedillo MANUAL DIFF REQ NO Normal [facility] Comment on above: Performed By: #### H PYLORI #### [facility] [address] [place] [address] Dr. Irene Cedillo MCH (RBC) [Entitic mass] 30.0 pg Normal 26.7-34.0 [facility] Comment on above: Performed By: #### H PYLORI #### [facility] [address] [place] [address] Dr. Irene Cedillo MCHC (RBC) [Mass/Vol] 33.7 g/dL Normal 29.9-35.2 [facility] Comment on above: Performed By: #### H PYLORI #### [facility] [address] [place] [address] Dr. Irene Cedillo MCV (RBC) [Entitic vol] 88.9 fL Normal 81.0-99.0 [facility] Comment on above: Performed By: #### H PYLORI #### [facility] [address] [place] [address] Dr. Irene Cedillo MONO # 0.4 103/ul Normal 0.3-0.8 [facility] Comment on above: Performed By: #### H PYLORI #### [facility] [address] [place] [address] Dr. Irene Cedillo Monocytes/100 WBC (Bld) 5.6 % Normal 1.7-12.0 [facility] Comment on above: Performed By: #### H PYLORI #### [facility] [address] [address] [address] Irene Cedillo NEUT # 4.0 103/ul Normal 1.4-6.5 [facility] Comment on above: Performed By: #### H PYLORI #### [facility] [address] [address] [address] Irene Cedillo Neutrophils/100 WBC (Bld) 54.9 % Normal 43.0-75.0 [facility] Comment on above: Performed By: #### H PYLORI #### [facility] [address] [place] [address] Dr. Irene Cedillo Platelet mean volume (Bld) [Entitic vol] 9.6 fL Normal 9.5-13.5 [facility] Comment on above: Performed By: #### H PYLORI #### [facility] [address] [place] [address] Dr. Irene Cedillo PLT 314 103/ul Normal 150-450 [facility] Comment on above: Performed By: #### H PYLORI #### [facility] [address] [place] [address] Dr. Irene Cedillo RBC 4.67 106/ul Normal 4.20-5.40 [facility] Comment on above: Performed By: #### H PYLORI #### [facility] [address] [place] [address] Dr. Irene Cedillo WBC 7.3 103/ul Normal 4.0-11.0 [facility] Comment on above: Performed By: #### H PYLORI #### [facility] [address] [place] [address] Dr. Irene Cedillo CRPon 09-13-2022 CRP 0.3 mg/dL Normal <=1.0 [facility] Comment on above: Performed By: #### C K, CRP #### [facility] [address] [address] [address] Irene Cedillo RENAL FUNCTION PANELon 09-13 Albumin [Mass/Vol] 3.7 g/dL Normal 3.4-5.0 [facility] Comment on above: Performed By: #### R ENAL #### [facility] [address] [address] [address] Irene Cedillo Calcium [Mass/Vol] 9.3 mg/dL Normal 8.5-10.1 [facility] Comment on above: Performed By: #### R ENAL #### [facility] [address] [address] [address] Irene Cedillo Chloride [Moles/Vol] 105 mmol/L Normal 98-107 [facility] Comment on above: Performed By: #### R ENAL #### [facility] [address] [address] [address] Irene Cedillo CO2 [Moles/Vol] 30.5 mmol/L Normal 21.0-32.0 [facility] Comment on above: Performed By: #### R ENAL #### [facility] [address] [address] [address] Irene Cedillo Creatinine [Mass/Vol] 0.64 mg/dL Normal 0.55-1.02 [facility] Comment on above: Performed By: #### R ENAL #### [facility] [address] [address] [address] Irene Cedillo EGFR-AF BENINESE >60 Normal >=60 [facility] Comment on above: Performed By: #### R ENAL #### [facility] [address] [address] [address] Irene Cedillo EGFR-NON AF BENINESE >60 Normal >=60 [facility] Comment on above: Performed By: #### R ENAL #### [facility] [address] [address] [address] Irene Cedillo Glucose [Mass/Vol] 130 mg/dL Critically high 74-106 [facility] Comment on above: Performed By: #### R ENAL #### [facility] [address] [address] [address] Irene Cedillo Phosphate [Mass/Vol] 3.9 mg/dL Normal 2.6-4.7 [facility] Comment on above: Performed By: #### R ENAL #### [facility] [address] [address] [address] Irene Cedillo Potassium [Moles/Vol] 4.0 mmol/L Normal 3.5-5.1 [facility] Comment on above: Performed By: #### R ENAL #### [facility] [address] [address] [address] Irene Cedillo Sodium [Moles/Vol] 143 mmol/L Normal 136-145 [facility] Comment on above: Performed By: #### R ENAL #### [facility] [address] [address] [address] Irene Cedillo Urea nitrogen [Mass/Vol] 16.0 mg/dL Normal 7.0-18.0 [facility] Comment on above: Performed By: #### R ENAL #### [facility] [address] [place] [address] Dr. Irene Cedillo SED RATE [facility] 2022 SED RATE 20 mm/hr Normal <=30 [facility] Comment on above: Performed By: #### C K, CRP #### [facility] [address] [place] [address] Dr. Irene Cedillo MRI ANKLE LT WO CONon 2021 MRI ANKLE LT WO CON EXAM: MRI ANKLE LT W O CON REASON FOR EXAM: Polyneuropathy due to type 2 diabetes mellitus. TECHNIQUE: Multiplanar, multisequence imaging of the left ankle was performed without contrast COMPARISON: Plain radiograph 07/05/2022. FINDINGS: There is mild fusiform thickening and intermediate signal involving the Achilles tendon with distal catheter is enthesophytes consistent with tendinosis. The plantar fascia is thickened with an inferior calcaneal spur. No acute tear identified. Laterally, the peroneal tendons demonstrate normal thickness and signal without tendinosis or tear. The superficial peroneal retinaculum is intact. Lateral ligamentous structures are grossly intact. Medially, the posterior tibial tendon is thickened with intermediate signal consistent with tendinosis. No tear. The remaining medial flexor tendons demonstrate normal thickness and signal without tendinosis or tear. The deep deltoid ligament is intact. The spring ligament is intact. Partially imaged Lisfranc ligament is grossly intact. Anteriorly, the anterior extensor tendons demonstrate normal thickness and signal without tendinosis or tear. The bone marrow signal is without fracture or osteonecrosis. There are postsurgical changes involving the first digit. The plantar musculature demonstrates normal bulk and signal. Soft tissues are unremarkable. IMPRESSION: 1. Achilles tendinosis without tear. 2. Chronic plantar fasciopathy. 3. Posterior tibial tendinosis without tear. 4. Moderate midfoot osteoarthritis. 5. Possible changes involving the first ray. Electronically authenticated by: TONY DICKINSON Date: 2022-08-26 09:36 Normal [facility] MAMM SCREEN 3D RIAN CADon 08-08-2022 MG MAMM SCREEN 3D RIAN CAD Patient: EMILY MACIAS Exam Date: 08/08/2022 : 1960 Gender:F Ordering : DR. KENDRA MCKINLEY M.D. Admission #: [id number] Family : DR NETTA MONTOYA M.D. Order #: [id number] CLICK HERE TO VIEW EXAM RADIOLOGY REPORT PROCEDURE: MAMMOGRAM SCREENING 3D BILATERAL CAD COMPARISON: MG MAMM SCREEN 3D RIAN CAD, 07/19/2021. MG MAMM SCREEN RIAN W CAD, 07/05/2020. INDICATIONS: Screening mammography Calculator Name NCI Breast Cancer Risk Assessment Tool 5 Year Breast Cancer Risk 2.90% Lifetime Breast Cancer Risk 12.80% Personal Breast Cancer No Personal Ovarian Cancer No Treatments None Family Cancers Father with skin cancer at age 65; Mother with breast cancer at age 79. LOCATION: [facility] BREAST COMPOSITION: Heterogeneously dense,which may obscure small masses. FINDINGS: DIAGNOSTIC CATEGORY 2--BENIGN FINDING: RIGHT BREAST: No significant suspicious finding. No significant change has occurred. LEFT BREAST: No significant suspicious finding. Stable, chronic scattered asymmetries. No significant change has occurred. RECOMMENDATIONS: ROUTINE MAMMOGRAM AND CLINICAL EVALUATION IN 12 MONTHS. PLEASE NOTE: A NORMAL MAMMOGRAM DOES NOT EXCLUDE THE POSSIBILITY OF BREAST CANCER. A CLINICALLY SUSPICIOUS PALPABLE LUMP SHOULD BE BIOPSIED. Dictated by: Pelon Alexandre M.D. on 08/09/2022 at 15:08 Approved by: Pelon Alexandre M.D. on 08/09/2022 at 15:10 Normal [facility] Podiatry Office/Clinic Noteo n 07-27-2022 Podiatry Office/Clinic Note Chief Complaint Bilaterla foot/nerve pain and swelling. Worsening. DM no wounds History of Present Illness Patient presents today complaining of bilateral painful left greater than right forefoot which is aching and throbbing in nature and sometimes stinging and burning in recent months. Relates the pain feels like [id number] and relates zinger type feeling. Patient relates that this is most troublesome in shoe gear wear and when ambulating and weightbearing, very little pain when barefoot, the only shoe gear she is able to wear without pain is crocs. Patient denies overt trauma to the area that they can remember. Patient relates that they have tried [id number] pain relievers, padding, and modification of shoe gear as well as modification of activity levels to no avail. Patient is also been a diabetic for several years. Inquiring about a prescription for diabetic shoes today. Patient had initial foot surgery to her left foot in 2014. She had initial incident where a horse stepped on her foot. She originally underwent a Alcantar arthroplasty with phalangeal birgit implant of the left first metatarsophalangeal joint for treatment of hallux limitus by an outside provider. Initial procedure provided relief of her pain for a short period of time, but had recurrence of symptoms at about 1 year post operatively. After a period of about 5 years since her index procedure, she presented to the Dr. Landeros's clinic with dorsal subluxation of the hallux at the 1st metatarsophalangeal joint and a flexion contracture at the hallux interphalangeal joint with pain at the dorsal interphalangeal joint and the first metatarsophalangeal joint. She also had an inability to purchase the ground with her hallux. In addition, she had complaint of transfer metatarsalgia and hammertoe contracture of toes 2 and 3, she underwent first metatarsophalangeal joint fusion with 3D custom implant and hammertoe correction of toes 2 and 3. She had initial pain relief, did also have to undergo hardware removal for painful hardware. She states that since her revision surgeries in 2019 she is no longer having musculoskeletal or biomechanical pain. She states that over the past 6 to 12 months she has started having the numbness tingling and burning pain, feels like [id number]. This pain feels different than her prior first metatarsal phalangeal joint pain she relates. She also gets this pain in the right foot but to a much lesser extent. Her main concern today is her left foot. Also has remote history of low back pain with history of back injections and ablations as well as Lyme disease since 2010. Patient relates she is diabetic. Sees Dr. Cervantes as her primary care physician. Relates her last hemoglobin A1c was 6.1. Relates morning glucose of 120. Patient reports last primary care physician visit was June 27, 2022. Review of Systems Constitutional Head Nose Mouth Throat Cardio/Respiratory Hematologic Chills: No Headache: No Shortness of Breath: No History of DVT: No Fever: No Sore Throat: No Chest Pain: No History of Claudication: No Ear Pain: No Palpitation: No History of Aneurysm: No History of Gangrene: No Genitourinary Musculoskeletal Psychiatric Vascular Burning: No Muscle Weakness: No Anxiety: No Blood Disorder: No Pain: No Joint Pain: Yes Depression: No Numbness: No Gastrointestinal Dermatology Rheumatologic Problems: No Rash: No History of Rheumatic Arthritis: Yes Pain: No Pruritus: No History of Gout: No History of Lupus: No Physical Exam Vitals & Measurements HR: 84 (Peripheral) BP: 120/79 HT: 165 cm WT: 89.2 kg WT: 89.2 kg (Dosing) BMI: 32.76 Orthopedic: Bony foot structure appears grossly rectus. Clinical fusion of the left first metatarsophalangeal joint noted with no appreciable range of motion at the left first metatarsophalangeal joint or left hallux interphalangeal joint. No pain with attempted range of motion of the first ray. Extrinsic and intrinsic musculature of the foot are grossly normal with strengths of 5/5 all movers of the foot and ankle. Minimal pain to passive or active range of motion bilateral and free of overt joint crepitation. Positive silfverskiold test bilateral. Negative pain to palpation of the plantar aspect of MPJ's. Negative pain to deep palpation of first, second, third, fourth intermetatarsal space bilateral feet. Negative palpable tenderness to dorsal and plantar metatarsal shafts and heads Dorsal palpable exostosis to the dorsal midfoot on the left. No pain with attempted tarsometatarsal joint range of motion on the left. No pain with attempted tarsometatarsal joint range of motion on the right. Dermatologic: Skin is within normal limits Negative for overt rashes or irregular pigmented lesions. Skin turgor normal. Well-healed cicatrix noted to the left anterior knee, left anterior medial ankle, left dorsal first metatarsophalangeal joint Neurologic: Gross (more content not included)... Normal [facility] XR Ankle 3 Views Bilateralon 07-27-2022 XR Ankle 3 Views Bilateral 3 weightbearing views bilateral ankle demonstrate: Right ankle: Ankle mortise is well aligned and maintained. No increase in medial clear space noted. No increase in tib-fib clear space noted. No acute fractures or dislocations noted. Spurring at the plantar and posterior calcaneus noted. No foreign bodies noted. No increase in soft tissue volume, density, or edema noted. Right ankle: Ankle mortise is well aligned and maintained. No increase in medial clear space noted. No increase in tib-fib clear space noted. No acute fractures or dislocations noted. Spurring at the plantar and posterior calcaneus noted. Dorsal spurring at the dorsal midfoot noted, better visualized on dedicated foot views. Partial visualization of the first metatarsophalangeal joint implant/hardware also better visualized on dedicated foot views. No other foreign bodies noted. No increase in soft tissue volume, density, or edema noted. Final Signed by: Janett Balbuena DPM Signed (Electronic Signature): 07/27/2022 11:11 am Transcribed DT/TM: 07/27/2022 11:11 (If Report Is Signed, Electronically Signed in Other Vendor System) Normal [facility] XR Foot 3 Views Bilateralon 07-27-2022 XR Foot 3 Views Bilateral 3 weightbearing views bilateral feet demonstrate: Right foot: Increased lateral deviation angle of the fifth metatarsal noted. Os vesalianum noted. Increased Meary's angle noted. Spurring of the plantar and posterior calcaneus noted. No acute fractures or dislocations noted. No foreign bodies noted. No increase in soft tissue volume, density, or edema noted. No soft tissue calcifications noted. Left foot: Retained hardware within the second metatarsal head noted with no backing out or lucency noted around the hardware. Prior arthroplasty of the second digit proximal interphalangeal joint and radiographic fusion/ankylosis of the third toe proximal interphalangeal joint noted. Contracture of the lesser digits noted. 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 First metatarsophalangeal joint implant with intramedullary stem of the first metatarsal, pin in the distal phalanx, screw in the first metatarsal head noted with no backing out or lucency noted surrounding the hardware. Osseous contact noted at the distal and proximal ends of the implant. Dorsal spurring at the tarsometatarsal and naviculocuneiform joints noted on lateral. Spurring at the plantar posterior calcaneus noted. Joint space narrowing of the tarsometatarsal and naviculocuneiform joints noted. No acute fractures or dislocations noted. No other foreign bodies noted. No soft tissue calcifications noted. No increase in soft tissue volume, density, or edema noted. Final Signed by: Janett Balbuena DPM Signed (Electronic Signature): 07/27/2022 10:44 am Transcribed DT/TM: 07/27/2022 10:44 (If Report Is Signed, Electronically Signed in Other Vendor System) Normal [facility] XR Tibia/Fibula Bilateralon 07-27-2022 XR Tibia/Fibula Bilateral Bilateral tib-fib views demonstrate: Left: Visualization of partial knee arthroplasty. Soft tissue calcifications in the anterior lower leg consistent with phleboliths. No varum or valgum of the tibia noted. No remote fracture, periosteal reaction, or bone spurring at the fibular head noted. No other foreign bodies noted. No increase in soft tissue volume, density, or edema noted. No acute fractures or dislocations noted. Right: Soft tissue calcifications in the anterior lower leg consistent with phleboliths. No varum or valgum of the tibia noted. No remote fracture, periosteal reaction, or bone spurring at the fibular head noted. No other foreign bodies noted. No increase in soft tissue volume, density, or edema noted. No acute fractures or dislocations noted. Final Signed by: Janett Balbuena DPM Signed (Electronic Signature): 07/27/2022 11:21 am Transcribed DT/TM: 07/27/2022 11:21 (If Report Is Signed, Electronically Signed in Other Vendor System) Normal [facility] GLYCOHEMOGLOBIN A1Con 2021 ADA RECOMMENDATION SEE BELOW Normal [facility] Comment on above: Result Comment: ADA RECOMMENDED LIMIT 4.0 - 6.0 ADA THERAPEUTIC TARGET < 7.0 ACTION SUGGESTED > 7.0 Performed By: #### C CPAB #### [facility] [address] [address] [address] Irene Cedillo Glucose [Mass/Vol] 128 mg/dL Normal [facility] Comment on above: Performed By: #### C CPAB #### [facility] [address] [address] [address] Irene Cedillo HbA1c (Bld) [Mass fraction] 6.1 % Normal 4.5-6.2 [facility] Comment on above: Performed By: #### C CPAB #### [facility] [address] [place] [address] Dr. Irene Cedillo XR FOOT RIAN MIN 3 VIEWSon XR FOOT RIAN MIN 3 VIEWS EXAMINATION: XR FOOT RIAN MIN 3 VIEWS HISTORY: Pain in both feet ; patient describes feeling like walking on shards of glass COMPARISON: XR foot left 04/11/2021 FINDINGS: RIGHT FINDINGS: BONES: Mild degenerative change of the first metatarsophalangeal joint. SOFT TISSUES: No visible soft tissue swelling. OTHER: Negative. LEFT FINDINGS: BONES: Fusion of the first toe and prosthetic spacer replacement of the proximal phalanx. Osteotomy and repair of head of second metatarsal. Prior resection of heads of second and third proximal phalanges. Mild degenerative changes the midfoot. Mild degenerative disease of hepatic spurring of calcaneus. SOFT TISSUES: No visible soft tissue swelling. OTHER: Negative. IMPRESSION: RIGHT CONCLUSION: Minimal degenerative changes of first metatarsophalangeal joint; otherwise unremarkable. LEFT CONCLUSION: Stable surgical changes without evidence of hardware failure or change in alignment. No suspicious findings to account for patient's symptoms. Electronically authenticated by: PELON ALEXANDRE Date: 2022-07-06 06:21 Normal [facility] OVA AND PARASITE EXAMINATION on 04-13-2022 Ova + Parasite Exam Final report Normal [facility] Comment on above: Result Comment: Thes e results were obtained using wet preparation(s) and trichrome stained smear. This test does not include testing for Cryptosporidium parvum, Cyclospora, or Microsporidia. Performed By: #### S EDR #### [facility] [address] [address] [address] Irene Cedillo Result 1 Comment Normal [facility] Comment on above: Result Comment: No o va, cysts, or parasites seen. . One negative specimen does not rule out the possibility of a parasitic infection. Performed By: #### S EDR #### [facility] [address] [address] [address] Irene Cedillo CALPROTECTIN, FECALon 2021 Calprotectin, Fecal 36 ug/g Normal 0-120 [facility] Comment on above: Result Comment: Conc entration Interpretation Follow-Up <16 - 50 ug/g Normal None >50 -120 ug/g Borderline Re-evaluate in 4-6 weeks >120 ug/g Abnormal Repeat as clinically indicated Performed By: #### C K, CRP #### [facility] [address] [place] [address] Dr. Irene Cedillo HELICOBACTER PYLORI AG STOOL on 04-12-2022 H. pylori Stool Ag, EIA Negative Normal Negative [facility] Comment on above: Performed By: #### H PYLORI #### [facility] [address] [place] [address] Dr. Irene Ceidllo LACTOFERRIN FECAL QUANTon Lactoferrin, Fecal, Quant. <1.00 Normal 0.00-7.24 [facility] Comment on above: Result Comment: Re sults verified by repeat testing . Baseline (normal) 0.00 - 7.24 Elevated >7.24 . An elevated result is indicative of the presence of fecal lactoferrin, a marker of intestinal inflammation. A normal result does not exclude the presence of intestinal inflammation. The test can be used as an in vitro diagnostic aid to distinguish patients with active inflammatory bowel disease (IBD) from those with non-inflammatory irritable bowel syndrome (IBS). Performed By: #### T SH #### [facility] [address] [place] [address] Dr. Irene Cedillo C. DIFF PCRon 04-08-2022 C. DIFFICILE PCR Negative Normal NEGATIVE [facility] Comment on above: Performed By: #### S EDR #### [facility] [address] [place] [address] Dr. Irene Cedillo GI PANEL (PCR)on 04-08-2022 Adenovirus F 40/41 Not detected Normal NOT DETECTED [facility] Comment on above: Performed By: #### S EDR #### [facility] [address] [place] [address] Dr. Irene Cedillo Astrovirus Not detected Normal NOT DETECTED [facility] Comment on above: Performed By: #### S EDR #### [facility] [address] [place] [address] Dr. Irene Cedillo C. Diff toxin A/B Not detected Normal NOT DETECTED [facility] Comment on above: Performed By: #### S EDR #### [facility] [address] [place] [address] Dr. Irene Cedillo Campylobacter Not detected Normal NOT DETECTED [facility] Comment on above: Performed By: #### S EDR #### [facility] [address] [place] [address] Dr. Irene Cedillo Cryptosporidium Not detected Normal NOT DETECTED [facility] Comment on above: Performed By: #### S EDR #### [facility] [address] [place] [address] Dr. Irene Cedillo Cyclos. Cayetanensis Not detected Normal NOT DETECTED [facility] Comment on above: Performed By: #### S EDR #### [facility] [address] [place] [address] Dr. Irene Cedillo E. Coli O157 Not Applicable Normal Not Applicable [facility] Comment on above: Performed By: #### S EDR #### [facility] [address] [place] [address] Dr. Irene Cedillo E. histolytica Not detected Normal NOT DETECTED [facility] Comment on above: Performed By: #### S EDR #### [facility] [address] [place] [address] Dr. Irene Cedillo EAEC Not detected Normal NOT DETECTED [facility] Comment on above: Performed By: #### S EDR #### [facility] [address] [place] [address] Dr. Irene Cedillo EIEC Not detected Normal NOT DETECTED [facility] Comment on above: Performed By: #### S EDR #### [facility] [address] [place] [address] Dr. Irene Cedillo EPEC Not detected Normal NOT DETECTED [facility] Comment on above: Performed By: #### S EDR #### [facility] [address] [address] [address] Irene Cedillo ETEC Not detected Normal NOT DETECTED [facility] Comment on above: Performed By: #### S EDR #### [facility] [address] [place] [address] Dr. Irene Galindo Lamblirhys Not detected Normal NOT DETECTED [facility] Comment on above: Performed By: #### S EDR #### [facility] [address] [place] [address] Dr. Irene VIGIL CONTROLS PASSED Normal [facility] Comment on above: Performed By: #### S EDR #### [facility] [address] [place] [address] Dr. Irene ACOSTA [facility] HEADER GI PANEL BACTERIA Normal [facility] Comment on above: Performed By: #### S EDR #### [facility] [address] [place] [address] Dr. Irene CALDERA ECOLI GI PANEL DIARRHEAGEN IC E.COLI / SHIGELLA Normal [facility] Comment on above: Performed By: #### S EDR #### [facility] [address] [place] [address] Dr. Irene CALDERA INFO SEE BELOW Normal [facility] Comment on above: Result Comment: EAEC - Enteroaggregative E. Coli EPEC- Enteropathogenic E. Coli ETEC- Enterotoxigenic E. Coli lt/st STEC- Shigella-like toxin-producing E. Coli stx1/stx2 EIEC- Shigella/Enteroinvasive E. Coli Performed By: #### S EDR #### [facility] [address] [place] [address] Dr. Irene CALDERA PARASITES GI PANEL PARASITES Normal [facility] Comment on above: Performed By: #### S EDR #### [facility] [address] [address] [address] Irene CALDERA VIRUS GI PANEL VIRUSES Normal [facility] Comment on above: Performed By: #### S EDR #### [facility] [address] [address] [address] Irene Cedillo Norovirus GI/GII Not detected Normal NOT DETECTED [facility] Comment on above: Performed By: #### S EDR #### [facility] [address] [address] [address] Irene Cedillo P. Shigelloides Not detected Normal NOT DETECTED [facility] Comment on above: Performed By: #### S EDR #### [facility] [address] [place] [address] Dr. Irene Cedillo Rotavirus A Not detected Normal NOT DETECTED [facility] Comment on above: Performed By: #### S EDR #### [facility] [address] [address] [address] Irene Cedillo Salmonella Not detected Normal NOT DETECTED [facility] Comment on above: Performed By: #### S EDR #### [facility] [address] [address] [address] Irene Cedillo Sapovirus Not detected Normal NOT DETECTED [facility] Comment on above: Performed By: #### S EDR #### [facility] [address] [place] [address] Dr. Irene Cedillo STEC Not detected Normal NOT DETECTED [facility] Comment on above: Performed By: #### S EDR #### [facility] [address] [address] [address] Irene Cedillo Vibrio Not detected Normal NOT DETECTED [facility] Comment on above: Performed By: #### S EDR #### [facility] [address] [address] [address] Irene Cedillo Vibrio Cholera Not detected Normal NOT DETECTED [facility] Comment on above: Performed By: #### S EDR #### [facility] [address] [place] [address] Dr. Irene Cedillo Y. Enterocolitica Not detected Normal NOT DETECTED [facility] Comment on above: Performed By: #### S EDR #### [facility] [address] [place] [address] Dr. Irene Cedillo BUNon 03-27-2022 Urea nitrogen [Mass/Vol] 20.0 mg/dL Critically high 7.0-18.0 [facility] Comment on above: Performed By: #### C K, CRP #### [facility] [address] [place] [address] Dr. Irene Cedillo CREATININEon 03-27-2022 Creatinine [Mass/Vol] 0.75 mg/dL Normal 0.55-1.02 [facility] Comment on above: Performed By: #### C K, CRP #### [facility] [address] [place] [address] Dr. Irene Cedillo EGFR-AF BENINESE >60 Normal >=60 [facility] Comment on above: Performed By: #### C K, CRP #### [facility] [address] [place] [address] Dr. Irene Cedillo EGFR-NON AF BENINESE >60 Normal >=60 [facility] Comment on above: Performed By: #### C K, CRP #### [facility] [address] [place] [address] ABD/PELV W CONon 03-27-[address] ABD/PELV W CON Indication: Abdomina l pain. Comparison: 09/20/2021 and 12/26/2018 exams. Procedure: Axial images were made from the diaphragms through the symphysis pubis. Oral contrast Omnipaque was given prior to scanning. 100 mL Omnipaque 300 Intravenous contrast was given. Dose reduction techniques were achieved by using automated exposure control and/or adjustment of mA and/or kV according to patient size and/or use of iterative reconstruction technique. 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 Liver/Biliary System: Stable area of focal fatty infiltration in hepatic segment 4. No liver masses are seen. No intra or extrahepatic biliary dilatation. Status postcholecystectomy. Pancreas/Spleen: Stable dilated pancreatic duct in pancreatic body and tail, probably due to 7 mm intraductal stone. No pancreatic masses are seen. No evidence of acute pancreatitis. No splenomegaly or splenic lesions. Kidneys/Adrenals: Normal symmetrical nephrograms. 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 No renal stones or hydronephrosis. No adrenal masses. Aorta/Vessels: No evidence of aortic aneurysm. Patent IVC, renal veins, hepatic veins and portal venous system. Bowel/Fluid/Nodes: No bowel dilatation. No bowel wall thickening. Colonic diverticulosis with no evidence of diverticulitis. Normal appendix. No ascites or fluid collections. No adenopathy. Lung bases: Clear. Other findings: No aggressive osseous lesions are seen. Pelvis: No pelvic masses or adenopathy. No free fluid seen in the pelvis. Status post hysterectomy. Bladder is not distended. Other Findings: No aggressive osseous lesions are seen. Impression: 1. No evidence of acute abdominal or pelvic process. 2. Stable colonic diverticulosis with no evidence of diverticulitis. Stable area of focal fatty infiltration in hepatic segment 4. Stable dilated pancreatic duct in pancreatic body and tail, probably due to 7 mm intraductal stone. 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 Status post hysterectomy and cholecystectomy. Electronically authenticated by: CIELO GARCIA Date: 2022-03-27 21:37 Normal [facility] Gastroenterology Office/Clin ic Noteon 03-22-2022 Gastroenterology Office/Clinic Note Chief Complaint Patient notes haing explosive diarrhea dn dark stools daily for the last 5-7 days. She notes abdominal pain that radiates and nausea after eating. She states she has had 10 lb weightloss in 6 weeks. History of Present Illness Patient is a 61-year-old female who presents to GI clinic today with complaints of diarrhea abdominal pain and nausea. Patient states for the past 6 weeks has had an increase in diarrhea. Patient states having 5-6 bowel movements and which she describes as liquid daily. Notes a lot of gurgling in abdomen. Notes having a lot of nausea after eating with abdominal spasms and cramping. Patient notes in the past 6 weeks has went from 210 pounds to 198 pounds. Patient notes has been taking Lomotil which helps occasionally. Also notes taking dicyclomine does not feel that this helps. Has stopped taking Linzess due to diarrhea. Patient did have colonoscopy September 2021 which was negative for colitis at that time. Patient has has not had stool studies or CT done since September. Patient notes symptoms have increasingly become worse since. We will repeat CT and stool studies. OV 10/14/2021 Patient is a 60-year-old female presents the GI clinic today for follow-up colonoscopy. Colonoscopy revealed diverticulosis and internal hemorrhoids. Negative pathology patient has previous history of tubular adenomatous polyps. Repeat colonoscopy in 5 years. Patient notes since colonoscopy having alternating diarrhea and constipation. Patient notes going 3 to 4 days without bowel movement. Notes when she does have bowel movement generally has hard stools then diarrhea. Patient denies any hematemesis, hematochezia, or melena. Patient notes abdominal spasms and cramping have improved. Patient is taking Metamucil several times daily along with stool softeners. Denies improvement of symptoms. Colonoscopy 09/26/2021 Impression and Plan Colonoscopy: Diagnosis: Diverticulosis (AMC75-AG K57.90, Discharge, Medical), Internal hemorrhoids (YOT87-DV K64.8, Discharge, Medical). Orders: Pathology reports to be followed. High fiber diet, adequate PO hydration Return to GI clinic per schedule.. Education and Follow-up: Counseled: Patient, Family. Recommended repeat colonoscopy: Await pathology results. [1] Pathology Diagnosis (Verified) Colon, random biopsies: No pathologic change. Negative for colitis. [2] OV 09/21/2021 Patient is a 60-year-old female presents to GI clinic today as a referral for diarrhea, abdominal pain, bloating, bright red rectal bleeding. Patient states several times since the end of July she has had multiple episodes of liquid stools with abdominal cramping and bright red rectal bleeding. Patient notes most recently was 5 days ago. She had 9 liquid stools. Did note some bright red rectal bleeding. Patient states has lower abdominal spasms and cramping at that time. Notes an increase in abdominal bloating and gas. Had some slight nausea. Patient states had colonoscopy 4 years ago. Patient states she did have tubular adenomas polyp back in 2000. Notes having a CT scan earlier this week in [place]. Records not available at this time. Patient denies any known family history of colon, esophageal, or gastric cancer. Patient denies any unexplained weight loss. [3] [1] Review of Systems Constitutional: No fevers, chills, sweats Eye: No recent visual problems ENMT: No ear pain, nasal congestion, sore throat Respiratory: No shortness of breath, cough Cardiovascular: No Chest pain, palpitations, syncope Gastrointestinal: As stated in HPI Genitourinary: No hematuria, no urgency/frequency Lymph: Negative for bruising tendency, swollen lymph glands Endocrine: Negative for excessive thirst, excessive hunger Musculoskeletal: No back pain, neck pain, joint pain, muscle pain, decreased range of motion Integumentary: No rash, pruritus, abrasions Neurologic: Alert & oriented X [address], [address], time and situation Psychiatric: No anxiety, depression Physical Exam Vitals & Measurements HT: 165 cm WT: 92.6 kg BMI: 34.01 General: Alert and oriented, well nourished, no acute distress. Lungs: Clear to auscultation and percussion, non-labored respiration. Heart: Normal rate, regular rhythm, no murmur, gallop or edema. Abdomen: Soft, non-tender , non-distended, normal bowel sounds, no masses. Skin: Skin is warm, dry and pink, no rashes or lesions. Neurologic: Awake, alert, and oriented X3 Psychiatric: Cooperative, appropriate mood and affect. Additional Vitals No qualifying data available. Assessment/Plan 1. Diarrhea Stool studies for infectious etiology Low FODMAP diet Continue Lomotil Hyoscyamine 4 times daily as needed CTAP Ordered: C. Diff Screen Calprotectin Stool-[place] CT Abdomen Pelvis w/ IV Contrast Enteric Pathogens DNA Panel Fecal Lactoferrin Helicobacter pylori Antigen Pancreatic Elastase Fecal-[place] Parasitic Examination-[place] 2. Abdominal pain Stool studies for infectious alden (more content not included)... Normal [facility] POINT OF CARE GLUCOSEon - Glucose [Mass/Vol] 173 mg/dL Critically high 74-106 T [facility] Comment on above: Performed By: #### C CPAB #### [facility] [address] [place] [address] Dr. Irene Cedillo FSHon 02-25-2022 FSH 46.6 mIU/mL Normal [facility] Comment on above: Result Comment: Adul t Female: Follicular phase 3.5 - 12.5 Ovulation phase 4.7 - 21.5 Luteal phase 1.7 - 7.7 Postmenopausal 25.8 - 134.8 Performed By: #### C K, CRP #### [facility] [address] [place] [address] Dr. Irene Cdeillo LUTEINIZING HORMONE (LH)on 0 02-25-2022 LH 33.3 mIU/mL Normal [facility] Comment on above: Result Comment: Adul t Female: Follicular phase 2.4 - 12.6 Ovulation phase 14.0 - 95.6 Luteal phase 1.0 - 11.4 Postmenopausal 7.7 - 58.5 Performed By: #### H PYLORI #### [facility] [address] [place] [address] Dr. Irene Cedillo TESTOSTERONE, TOTALon 2021 Testosterone [Mass/Vol] 6 ng/dL Normal 3-67 [facility] Comment on above: Performed By: #### H PYLORI #### [facility] [address] [place] [address] Dr. Irene Cedillo THYROID PEROXIDASE ABon - Thyroid Peroxidase (TPO) Ab <8 Normal 0-34 [facility] Comment on above: Performed By: #### C K, CRP #### [facility] [address] [place] [address] Dr. Irene Cedillo FREE T3on 02-24-2022 FREE T3 2.47 pg/mlL Normal 2.18-3.98 [facility] Comment on above: Performed By: #### S EDR #### [facility] [address] [place] [address] Dr. Irene Cedillo LYME DISEASE AB EIA W REFLEX on 01-31-2022 Lyme Total Antibody,EIA Negative Normal Negative [facility] Comment on above: Result Comment: Lyme Antibody Negative No laboratory evidence of infection with B. burgdorferi (Lyme disease). Negative results may occur in patients recently infected (greater than or equal to 14 days) with B. burgdorferi. If recent infection is suspected, repeat testing on a new sample collected in 7 to 14 days is recommended. Performed By: #### T SH #### [facility] [address] [place] [address] Dr. Irene Cedillo CPKon 01-30-2022 CK [Catalytic activity/Vol] 76 U/L Normal 26-192 [facility] Comment on above: Performed By: #### C K, CRP #### [facility] [address] [address] [address] Irene Cedillo CRPon 01-30-2022 CRP 0.4 mg/dL Normal <=1.0 [facility] Comment on above: Performed By: #### C K, CRP #### [facility] [address] [address] [address] Irene Cedillo SED RATE WESTERGRENon 2021 SED RATE 8 mm/hr Normal <=30 [facility] Comment on above: Performed By: #### H PYLORI #### [facility] [address] [place] [address] Dr. Irene Cedillo C REACTIVE PROTEINon 021 CRP [Mass/Vol] 9.3 mg/L High 0.0-7.[address] [facility] Comment on above: Performed By: #### 6 1405 #### [address] KNEE LEFT 3 VWSon 09-06-2021 KNEE LEFT [address] [facility] Department of Radiology [address] [place], [place] [id number] ======== Patient Name: EMILY MACIAS : 1960 Sex: F Age: Race: White Pt. Location: Patient Status: Ordered Date: 09/06/2021 1:35:00 PM Completed Date: 09/06/2021 01:56 PM Requesting Provider: KIARA WILLETT Attending Provider: Report Copy To: Signs & Symptoms: M25.562 Pain in left knee I10 History: Barbara Comments: Evaluate Exam: KNEE LEFT 3 [facility] ======== KNEE LEFT 3 [facility] 09/06/2021 1:56 PM CLINICAL INDICATIONS: M25.562 Pain in left knee I10 TECHNOLOGIST COMMENTS: Patient states bilateral knee pain. QUESTION FOR THE RADIOLOGIST: Evaluate PROTOCOL: AP,Lateral and Tangential views were obtained. COMPARISON: None FINDINGS: Hardware in the medial compartment is appreciated. No evidence of loosening or periprosthetic fracture. No concerning knee effusion. Spurring and degenerative changes about the tibial spines are noted. Position of the patella in the groove is satisfactory IMPRESSION: Chronic changes as detailed above Electronically signed: Olga Murray. Transcribed by: [email or web address], User Resident: Electronically Signed by: OLGA MURRAY @ 09/06/2021 03:[address] [facility] Comment on above: Order Comment: Evalu ate KNEE RIGHT 3 [facility] KNEE RIGHT 3 [facility] Department of Radiology [address] [place] [id number] ======== Patient Name: EMILY MACIAS : 1960 Sex: F Age: Race: White Pt. Location: Patient Status: Ordered Date: 09/06/2021 1:35:00 PM Completed Date: 09/06/2021 01:56 PM Requesting Provider: KIARA WILLETT Attending Provider: Report Copy To: Signs & Symptoms: M25.561 Pain in right knee I10 History: Barbara Comments: Evaluate Exam: KNEE RIGHT 3 [facility] ======== KNEE RIGHT 3 [facility] 09/06/2021 1:56 PM CLINICAL INDICATIONS: M25.561 Pain in right knee I10 TECHNOLOGIST COMMENTS: Patient states bilateral knee pain. PROTOCOL: AP,Lateral and Tangential views were obtained. COMPARISON: None FINDINGS: Patellar position is normal. Multiple calcified loose bodies are appreciated projecting posteriorly and laterally narrowing of the medial lateral compartments is observed. Please correlate with clinical picture and laboratory data. No acute osseous process. No healing fracture. IMPRESSION: Degenerative changes with ossified loose bodies as detailed above Electronically signed: Olga Murray. Transcribed by: [email or web address], User Resident: Electronically Signed by: OLGA MURRAY @ 09/06/2021 03:[address] [facility] Comment on above: Order Comment: Evalu ate SEDIMENTATION RATEon 09-06- 021 SED RATE 7 mm/hr Normal 0-[address] [facility] Comment on above: Performed By: #### [id number] #### [facility] [address] Vital Signs Date Time Vital Sign Value Performing Clinician Facility 08-13-2023 09:30-0500 Body height 161.93 cm Netta Montoya Other [facility] Other 08-13-2023 09:30-0500 Body mass index (BMI) [Ratio] 34.46 kg/m2 Netta Montoya Other [facility] Other 08-13-2023 09:30-0500 Body weight 90.36 kg Netta Montoya Other [facility] Other 08-13-2023 09:30-0500 Diastolic blood pressure 70 mm[Hg] Netta Montoya Other [facility] Other 08-13-2023 09:30-0500 Systolic blood pressure 110 mm[Hg] Netta Montoya Other [facility] Other 08-09-2023 14:48-0500 Body height 165.1 cm Sagar Krause MD Work Phone: [facility] 08-09-2023 14:48-0500 Body mass index (BMI) [Ratio] 33.58 kg/m2 Sagar Krause MD Work Phone: [facility] 08-09-2023 14:48-0500 Body weight 91.54 kg Sagar Krause MD Work Phone: [facility] 04-24-2023 13:30-0400 Body height 161.93 cm Siva Ron Other [facility] Other 04-24-2023 13:30-0400 Body mass index (BMI) [Ratio] 32.52 kg/m2 Siva Ron Other [facility] Other 04-24-2023 13:30-0400 Body weight 85.28 kg Siva Ron Other [facility] Other 04-24-2023 13:30-0400 Diastolic blood pressure 70 mm[Hg] Siva Ron Other [facility] Other 04-24-2023 13:30-0400 Systolic blood pressure 126 mm[Hg] Siva Ron Other [facility] Other 02-22-2023 15:15-0400 Body height 165.1 cm Radha SANTOS Work Phone: [facility] 02-22-2023 15:15-0400 Body mass index (BMI) [Ratio] 31.51 kg/m2 Radha Asif [employer] Work Phone: [facility] 02-22-2023 15:15-0400 Body temperature 98.01 [degF] Radha Asif APRN-[employer]UMBER [employer]ER Work Phone: [facility] 02-22-2023 15:15-0400 Body weight 85.9 kg Radha Asif APRN-[employer]UMBER [employer]ER Work Phone: [facility] 01-09-2023 09:30-0400 Body height 161.93 cm Netta Montoya Other [facility] Other 01-09-2023 09:30-0400 Body mass index (BMI) [Ratio] 33.04 kg/m2 Netta Montoya Other [facility] Other 01-09-2023 09:30-0400 Body weight 86.64 kg Netta Montoya Other [facility] Other 01-09-2023 09:30-0400 Diastolic blood pressure 60 mm[Hg] Netta Montoya Other [facility] Other 01-09-2023 09:30-0400 SaO2% (BldA) [Mass fraction] 97 % Netta Montoya Other [facility] Other 01-09-2023 09:30-0400 Systolic blood pressure 112 mm[Hg] Netta Montoya Other [facility] Other 01-01-2023 15:45-0400 Body height 161.93 cm Siva Ron Other [facility] Other 01-01-2023 15:45-0400 Body mass index (BMI) [Ratio] 34.08 kg/m2 Siva Ron Other [facility] Other 01-01-2023 15:45-0400 Body weight 89.36 kg Siva Ron Other [facility] Other 01-01-2023 15:45-0400 Diastolic blood pressure 71 mm[Hg] Siva Ron Other [facility] Other 01-01-2023 15:45-0400 Systolic blood pressure 116 mm[Hg] Siva Ron Other [facility] Other 11-30-2022 13:58-0400 Body height 165.1 cm Sagar rKause MD Work Phone: [facility] 11-30-2022 13:58-0400 Body mass index (BMI) [Ratio] 32.12 kg/m2 Sagar Krause MD Work Phone: [facility] 11-30-2022 13:58-0400 Body weight 87.54 kg Sagar Krause MD Work Phone: [facility] 10-10-2022 14:30-0500 Body height 161.93 cm Netta Montoya Other [facility] Other 10-10-2022 14:30-0500 Body mass index (BMI) [Ratio] 34.08 kg/m2 Netta Montoya Other [facility] Other 10-10-2022 14:30-0500 Body weight 89.36 kg Netta Montoya Other [facility] Other 10-10-2022 14:30-0500 Diastolic blood pressure 70 mm[Hg] Netta Montoya Other [facility] Other 10-10-2022 14:30-0500 Systolic blood pressure 108 mm[Hg] Netta Montoya Other [facility] Other 09-13-2022 16:30-0500 Body height 161.93 cm Netta Montoya Other [facility] Other 09-13-2022 16:30-0500 Body mass index (BMI) [Ratio] 33.21 kg/m2 Netta Montoya Other [facility] Other 09-13-2022 16:30-0500 Body weight 87.09 kg Netta Montoya Other [facility] Other 09-13-2022 16:30-0500 Diastolic blood pressure 62 mm[Hg] Netta Montoya Other [facility] Other 09-13-2022 16:30-0500 SaO2% (BldA) [Mass fraction] 97 % Netta Montoya Other [facility] Other 09-13-2022 16:30-0500 Systolic blood pressure 108 mm[Hg] Netta Montoya Other [facility] Other Encounters Encounter Date Encounter Type Care Provider Facility Start: 08-13-2023 End: 08-13-2023 ambulatory Netta Montoya Other [facility] Other Start: 08-13-2023 Office outpatient vi sit 15 minutes Netta Montoya [facility] Start: 08-09-2023 ambulatory SAGAR KRAUSE [facility] Start: 08-09-2023 End: 08-09-2023 Office outpatient visit 15 minutes Sagar Krause MD Work Phone: [facility] Comment on above: Post-op pain (Primar y Dx); Pain in prosthetic joint, subsequent encounter Start: 08-09-2023 End: 08-09-2023 Subsequent hospital visit by physician Sagar Krause MD Work Phone: [facility] Start: 06-19-2023 End: 06-19-2023 ambulatory Cara Leo Facility:[facility] Start: 06-19-2023 End: 06-19-2023 ambulatory MD Netta Montoya Work Phone: [facility] Work Phone: Start: 06-19-2023 End: 06-19-2023 Patient encounter procedure MD Netta Montoya Work Phone: [facility] Work Phone: Start: 05-22-2023 End: 05-22-2023 ambulatory Siva Ron Other [facility] Other Start: 05-22-2023 Telephone encounter Siva sheriff [facility] Start: 05-09-2023 End: 05-09-2023 ambulatory Siva Ron Facility:[facility] Start: 05-09-2023 End: 05-09-2023 ambulatory MD Netta Montoya Work Phone: [facility] Work Phone: Start: 05-09-2023 End: 05-09-2023 Patient encounter procedure MD Netta Montoya Work Phone: [facility] Work Phone: Start: 04-26-2023 End: 04-26-2023 ambulatory Netta Montoya Other [facility] Other Start: 04-26-2023 Telephone encounter Netta Montoya [facility] Start: 04-24-2023 End: 04-24-2023 ambulatory Siva Ron Other [facility] Other Start: 04-24-2023 Office outpatient vi sit 25 minutes Siva Ron [facility] Start: 04-23-2023 End: 04-23-2023 ambulatory Netta Montoya Other [facility] Other Start: 04-23-2023 Telephone encounter Netta Montoya [facility] Start: 04-20-2023 End: 04-20-2023 ambulatory Netta Lindsay Other [facility] Other Start: 04-20-2023 Telephone encounter Netta Montoya [facility] Start: 03-15-2023 Telephone encounter Siva sheriff [facility] Start: 03-15-2023 End: 03-15-2023 ambulatory Ricardo Watson [facility] Other Start: 02-22-2023 ambulatory [facility] Start: 02-22-2023 End: 02-22-2023 Postop follow up visit related to original px Radha Asif [employer] Work Phone: [facility] Comment on above: Hx of total knee art hroplasty, left (Primary Dx) Start: 02-19-2023 End: 02-19-2023 ambulatory Netta Lindsay Other [facility] Other Start: 02-19-2023 Telephone encounter Netta Lindsay [facility] Start: 01-29-2023 End: 01-30-2023 [facility] Start: 01-29-2023 End: 01-30-2023 Encounter for other preprocedural examination [facility] Start: 01-18-2023 End: 01-19-[address] Erin RON Facility:[facility] Start: 01-17-2023 End: 01-17-2023 ambulatory Siva Ron Other [facility] Other Start: 01-17-2023 Telephone encounter Siva sheriff [facility] Start: 01-16-2023 End: 01-16-2023 ambulatory Siva Ron Other [facility] Other Start: 01-16-2023 Telephone encounter Siva sheriff [facility] Start: 01-09-2023 Encounter for other preprocedural examination Netta Montoya [facility] Start: 01-09-2023 Office outpatient vi sit 15 minutes Netta Montoya [facility] Start: 01-09-2023 Telephone encounter Netta Montoya [facility] Start: 01-09-2023 End: 01-10-[address] Erin RON [facility] Other Start: 01-08-2023 End: 01-08-[address] Erin RON Facility:[facility] Start: 01-04-2023 ambulatory NETTA MONTOYA [facility] Start: 01-02-2023 End: 01-02-2023 ambulatory Siva Ron Other [facility] Other Start: 01-02-2023 Telephone encounter Siva sheriff [facility] Start: 01-01-2023 End: 01-01-2023 ambulatory Siva Ron Other [facility] Other Start: 01-01-2023 Office outpatient ne w 45 minutes Siva Ron [facility] Start: 11-30-2022 ambulatory NETTA MONTOYA [facility] Start: 11-30-2022 End: 11-30-2022 Office outpatient new 60 minutes Sagar Krause MD Work Phone: [facility] Comment on above: Pain in prosthetic j oint, sequela (Primary Dx) Start: 11-30-2022 End: 11-30-2022 Subsequent hospital visit by physician Sagar Krause MD Work Phone: [facility] Start: 11-28-2022 End: 11-29-[address] CARA LEO Facility:[facility] Start: 11-09-2022 End: 11-10-2022 ambulatory BRI BERGER Facility:[facility] Start: 10-18-2022 End: 10-19-[address] CARA LEO Facility:[facility] Start: 10-10-2022 End: 10-10-2022 ambulatory Netta Montoya Other [facility] Other Start: 10-10-2022 Office outpatient vi sit 15 minutes Netta Montoya [facility] Start: 09-22-2022 Telephone encounter Netta Montoya [facility] Start: 09-22-2022 End: 09-23-2022 ambulatory Netta Montoya MD [facility] Other Start: 09-13-2022 End: 09-14-2022 ambulatory JANETT BALBUENA [facility] Other Start: 09-13-2022 Office outpatient vi sit 15 minutes Netta Montoya [facility] Start: 09-12-2022 End: 09-13-2022 ambulatory Netta Montoya MD Facility:[facility] Start: 08-23-2022 End: 08-24-2022 ambulatory TONY DICKINSON Facility:[facility] Start: 08-22-2022 End: 08-23-2022 ambulatory JANETT BALBUENA Facility:[facility] Start: 08-08-2022 End: 08-09-[address] PELON ALEXANDRE Facility:[facility] Start: 08-01-2022 Adult health examination Netta Montoya Other [facility] Other Start: 08-01-2022 Gynecological examination normal Netta Montoya Other [facility] Other Start: 08-01-2022 Pre-procedure evaluation check Netta Montoya Other [facility] Other Start: 07-27-2022 End: 07-28-2022 ambulatory Netta Montoya MD Facility:[facility] Start: 07-11-2022 End: 07-12-[address] NETTA MONTOYA Facility:[facility] Start: 07-05-2022 End: 07-06-2022 ambulatory BASILIO LANDEROS Facility:[facility] Start: 04-25-2022 ambulatory Netta Montoya MD Facility:[facility] Start: 04-08-2022 End: 04-09-[address] DOCTOR DESHPANDE Facility:[facility] Start: 04-05-2022 ambulatory SABINA DELGADILLO . Facility:[facility] Start: 03-28-2022 Encounter for other preprocedural examination DR DOCTOR DESHPANDE [facility] Start: 03-27-2022 End: 03-28-[address] DOCTOR DESHPANDE Facility:[facility] Start: 03-27-2022 End: 03-28-2022 Encounter for other preprocedural examination DR DOCTOR DESHPANDE Facility:[facility] Start: 03-22-2022 End: 03-23-2022 ambulatory Netta Montoya MD Facility:[facility] Start: 03-21-2022 End: 03-21-[address] PAWEL REESE . Facility:[facility] Start: 03-08-2022 End: 03-09-[address] PAWEL REESE . Facility:[facility] Start: 02-24-2022 End: 02-25-[address] NETTA MONTOYA Facility:[facility] Start: 01-30-2022 End: 01-31-[address] NETTA MONTOYA Facility:[facility] Procedures Date Procedure Procedure Detail Performing Clinician Start: 06-19-2023 X-ray of lumbar spin e, four or more views MD Netta Montoya Work Phone: Start: 05-09-2023 Ultrasound elastogra phy of liver MD Netta Montoya Work Phone: Start: 05-09-2023 Computed tomography of abdomen and pelvis with contrast MD Netta Montoya Work Phone: Start: 05-09-2023 Ultrasonography of liver MD Netta Montoya Work Phone: Start: 11-30-2022 Arthrocentesis aspir &/inj major jt/bursa w/o us Sagar Krause MD Work Phone: Start: 08-26-2018 Pre-surgery evaluation Netta Montoya Other Plan of Treatment Date Care Activity Detail Author Start: 01-30-2024 End: 01-30-2024 Patient encounter procedure 01/30/2024 1:00 PM EDT Office Visit [facility] [address] [place] [address] Radha Asif, [employer] [address] [place] [address] [facility] Start: 08-09-2023 End: 09-06-2023 C-reactive protein C REACTIVE PROTEIN Lab Routine Pain in prosthetic joint, subsequent encounter Expected: 08/09/2023, Expires: 09/06/2023 [facility] Comment on above: Expected: 08/09/2023 , Expires: 09/06/2023 Start: 08-09-2023 End: 09-06-2023 SEDIMENTATION RATE, AUTOMATED SEDIMENTATION RATE, AUTOMATED Lab Routine Pain in prosthetic joint, subsequent encounter Expected: 08/09/2023 (Approximate), Expires: 09/06/2023 [facility] Comment on above: Expected: 08/09/2023 (Approximate), Expires: 09/06/2023 Start: 07-06-2023 Hemoglobin A1c measurement HBA1C TEST [facility] Start: 06-06-2023 End: 06-06-2023 Patient encounter procedure 06/06/2023 1:10 PM EDT Office Visit [facility] [address] [place] [address] Sagar Krause MD [address] [place] [address] [facility] Start: 05-11-2023 Influenza vaccination A [facility] Start: 05-09-2023 [facility] Start: 01-04-2023 End: 01-04-2023 ambulatory 01/04/2023 Pre-Operative Nurse Assessment Internal Medicine [facility] Pre Admission Start: 05-11-2022 Influenza vaccination INFLUENZA VACC INE (#1) [facility] Start: 12-15-2009 Zoster vaccine hzv l ag for subcutaneous use ZOSTER (SHINGLES) VACCINE (1 of 2) [facility] Start: 12-15-2004 Screening for malign ant neoplasm of colon COLORECTAL CANCER SCREENING DISCUSSION [facility] Start: 1999 Lipid panel LIPID SCREENING [facility] Start: 1999 Screening for malign ant neoplasm of breast MAMMOGRAM SCREENING DISCUSSION [facility] Start: 12-15-1980 Screening for malign ant neoplasm of cervix CERVICAL CANCER SCREENING DISCUSSION [facility] Start: 12-15-1978 Third diphtheria, tetanus and acellular pertussis (DTaP) vaccination TDAP (ADULT) [facility] Start: 12-15-1974 HIV screening HIV SCREENING DISCUSSION [facility] Start: 06-16-1960 COVID-19 VACCINE (#1) COVID-19 VACCI NE (#1) [facility] Start: 1959 Diabetic foot examination DIABETIC FOOT EXAM [facility] Start: 1959 Glaucoma screening EYE EXAM [facility] Start: 1959 Hepatitis C screening HEPATITI S C VIRUS SCREENING [facility] Start: 1959 Lipid panel LIPIDS [facility] Start: 1959 Tetanus vaccination TETANUS [facility] Start: 1959 Thyroid stimulating hormone measurement TSH [facility] Start: 1959 Urine screening for protein URINE MICROALBUMIN TEST [facility] Radiography for bone length studies XR BONE LENGTH STUDY Imaging Routine Pain in prosthetic joint, sequela 11/30/2022 1:41 PM EDT [facility] XR Knee - left 3 Views XR KNEE L EFT 3 VIEWS Imaging Routine Pain in prosthetic joint, sequela [facility] XR Knee - left 3 Views XR KNEE L EFT 3 VIEWS Imaging Routine Hx of total knee arthroplasty, left 02/22/2023 2:50 PM EDT [facility] XR Knee - left 3 Views XR KNEE L EFT 3 VIEWS Imaging Routine Post-op pain 08/09/2023 2:03 PM EST [facility] Payers Date Payer Category Payer Self-pay 2021 Private Health Insurance 2021 Medicare MEDICARE AETNA [place] PPO MEDICARE AETNA HMO [id number] 2021-Present [address] [place] [address] [id number] 1959 Unknown [id number] 2.16.840.1.447480.3.579.2.5 93 1959 Unknown [id number] 2.16.840.1.082814.3.579.2.5 93 1959 Unknown [id number] 2.16.840.1.643683.3.579.2.5 93 1959 Unknown [id number] 2.16.840.1.162997.3.579.2.5 93 1959 Unknown [id number] 2.16.840.1.947096.3.579.2.5 93 1959 Unknown [id number] 2.16.840.1.950711.3.579.2.5 93 1959 Unknown [id number] 2.16.840.1.932174.3.579.2.5 93 1959 Unknown [id number] 2.16.840.1.410912.3.579.2.5 93 1959 Unknown [id number] 2.16.840.1.589286.3.579.2.5 93 1959 Unknown [id number] 2.16.840.1.542194.3.579.2.5 93 1959 Unknown [id number] 2.16.840.1.166812.3.579.2.5 93 1959 Unknown [id number] 2.16.840.1.497118.3.579.2.5 93 1959 Unknown [id number] 2.16.840.1.760780.3.579.2.5 93 1959 Unknown [id number] 2.16.840.1.105690.3.579.2.5 93 1959 Unknown [id number] 2.16.840.1.956970.3.579.2.5 93 1959 Unknown [id number] 2.16.840.1.649809.3.579.2.5 93 1959 Unknown [id number] 2.16.840.1.193671.3.579.2.5 93 1959 Unknown [id number] 2.16.840.1.879500.3.579.2.5 93 1959 Unknown [id number] 2.16.840.1.677142.3.579.2.5 93 1959 Unknown [id number] 2.16.840.1.687048.3.579.2.1 96 1959 Unknown [id number] 2.16.840.1.514635.3.579.2.1 96 1959 Unknown [id number] 2.16.840.1.039097.3.579.2.1 96 1959 Unknown [id number] 2.16.840.1.267424.3.579.2.1 96 1959 Unknown [id number] 2.16.840.1.996579.3.579.2.1 96 1959 Unknown [id number] 2.16.840.1.807493.3.579.2.1 96 1959 Unknown [id number] 2.16.840.1.210075.3.579.2.1 96 1959 Unknown [id number] 2.16.840.1.548021.3.579.2.9 83 1959 Unknown [id number] 2.16.840.1.100184.3.579.2.9 83 1959 Unknown [id number] 2.16.840.1.659644.3.579.2.9 83 1959 Unknown [id number] 2.16.840.1.543169.3.579.2.9 83 1959 Unknown [id number] 2.16.840.1.346241.3.579.2.9 83 1959 Unknown [id number] 2.16.840.1.326053.3.579.2.9 83 1959 Unknown [id number] 2.16.840.1.157636.3.579.2.9 83 1959 Unknown [id number] 2.16.840.1.458055.3.579.2.9 83 1959 Medicare [id number] 2.16.840.1.031759.19 Unknown [facility] [id number] Unknown [id number] 2.16.840.1.321171.3.579.2.5 31 Unknown [id number] 2.16.840.1.353642.3.579.2.5 31 Social History Date Type Detail Facility Unknown if ever smoked [employer] Other Start: 02-22-2023 End: 08-09-2023 Sex Assigned At [employer] Other Start: 11-30-2022 Tobacco smoking status NHIS Never smoked tobacco [facility] Start: 11-30-2022 Tobacco use and exposure Smokeless tobacco non-user [facility] Start: 11-30-2022 End: 08-09-2023 [facility] Start: 1960 Sex Assigned At Not on file A [employer] Start: 02-22-2023 End: 08-09-2023 [facility] of [facility] Start: 01-19-2023 End: 01-29-2023 Exposure to SARS-CoV-2 (event) Not sure [facility] Start: 1960 Sex Assigned At Female F [facility] Medical Equipment Procedure Code Equipment Code Equipment Origin al Text Equipment Identifier Dates One Touch Ultra Test Strips Insert - Knee - [id number] Start: 01-29-2023 Goals Date Patient Goal Desired Activity /State Clinical Notes 03-08-2022 to 08-13-2023 Note Date & Type Note Facility 08-13-2023 Evaluation note Encounter Date Diagnosis Assessment Notes Aug, Piriformis syndrome, right (ICD-10 - G57.01) Pt declines PT at this time. Gave handouts for exercises and use flexeril qhs. Aug, Trochanteric bursitis, right hip (ICD-10 - M70.61) Pt declines PT. Muscle relaxer and handouts given. [employer] Other 11-30-2023 History of Present illness Narrative* Iza Ferrari - 08/09/2023 2:30 PM EST Ortho Nurse - Established Patient Intake Room#: room 2---- pt here today for lt knee pain, pt rates her pain on a scale of 6/10 today. She had a left knee revision done back on 01/29/23. She is having most of her pain on the back meidal sideof the knee, she describes the pain as pinching . Date: 08/09/2023 2:58 PM Patient: Emily Macias MR#: [id number] : 1960 Age: 62 y.o. Referring Physician: Sagar Krause MD Insurance: Payor: MEDICARE AETNA HMO OR PPO / Plan: MEDICARE AETNA HMO / Product Type: *No Product type* / Chief Complaint Patient presents with Left Knee - Pain Visit Vitals Ht 1.651 m (5' 5 ) Wt 91.5 kg (201 lb 12.8 oz) BMI 33.58 kg/m Pain Recent Labs No results found for: CRP No results found for: SEDRATE Lab Results Component Value Date WBC 11.9 (H) 01/30/2023 HGB 10.3 (L) 01/30/2023 HCT 31.5 (L) 01/30/2023 PLATELET 256 01/30/2023 MCV 91.7 01/30/2023 History Past Medical History: Diagnosis Date Meningitis 1991 Anxiety Arthritis Diabetes mellitus Type 2 Hypothyroidism Mononucleosis I've had it multiple times LUIS (obstructive sleep apnea) Renal disease cyst, pt states not sure which side Past Surgical History: Procedure Laterality Date ARTHROPLASTY KNEE TOTAL Left 01/29/2023 Laterality: Left; Surgeon: Sagar Krause MD; Location: [facility] OR ARTHROPLASTY KNEE TOTAL Left 08/13/2017 Partial ARTHROSCOPY KNEE Left 03/2012 SHOULDER ARTHROSCOPY Right 2012 FUNDOPLICATION ENDOSCOPIC 2004 HYSTERECTOMY 2003 CHOLECYSTECTOMY LAPAROSCOPIC 1995 OTHER SURGICAL 1990 ruptured ovarian cyst RELEASE CARPAL TUNNEL Right 1990 EXTRACTION EXTRACAPSULAR CATARACT W/ IMPLANT (ECCE IOL) FASCIECTOMY PLANTAR FASCIA OTHER SURGICAL Left left great toe reconstruction-multiple times OTHER SURGICAL Right right elbow release Family History: Her family history includes Arthritis - Osteo in her mother; Diabetes in her mother; Gout in her father; Hypertension in her mother; Lipid Disorder in her father; Myocardial Infarction in her mother; Pain in her father; Skin Cancer in her father; Stroke in her mother. Social History: Her reports that she has never smoked. She has never used smokeless tobacco. She reports that she does not currently use alcohol. She reports that she does not use drugs. Outpatient Medications Prior to Visit Medication Sig Dispense Refill Acetaminophen 325 MG tablet Take 2 tablets by mouth every 4 hours as needed for Mild Pain. 50 tablet [address]ir[address] tablet Take 1 tablet by mouth 2 times daily. This medication is for blood clotprevention. 60 tablet 0 B Complex Vitamins (B COMPLEX 1 PO) Take by mouth daily. Calcium Carb-Cholecalciferol (CALCIUM + D3 PO) Take by mouth daily. Celecoxib 200 MG capsule Take 1 capsule by mouth 2 times daily. 60 capsule 0 Cobalamin Combinations (B-12) 100-[address] under tongue daily. Docusate 100 MG capsule Take 1 capsule by mouth 2 times daily. 60 capsule 0 levothyroxine 112 MCG tablet Take 1 tablet by mouth daily. AM Magnesium 500 MG capsule Take by mouth daily. Melatonin 5 MG capsule Take by mouth at bedtime. Mesalamine 1.[address] tablet Take 2 tablets by mouth daily. metFORMIN 1000 MG tablet 2 times daily. Multiple Vitamins-Minerals (One Daily Calcium/Iron) tablet Take 1 tablet by mouth daily. Omeprazole [address] tablet Take by mouth daily. Pancrelipase, Tgp-Ujji-Eurw, (CREON PO) Take 36,000 Units by mouth. 2 tablet by mouth with each meal, 1 tablet by mouth with 1 snack daily Probiotic Product (PROBIOTIC DAILY PO) Take by mouth. Pyridoxine HCl (B-6) 100 MG tablet Take by mouth daily. Vitamin A 2400 MCG (8000 UT) tablet Take by mouth daily. Xiidra 5 % Solution ophthalmic solution Place in both eyes 2 times daily. Zinc 50 MG capsule Take by mouth daily. baclofen 10 MG tablet Take 2 tablets by mouth as needed. (Patient not taking: Reported on 08/09/2023) Cholecalciferol 250 MCG (54129 UT) capsule capsule Take by mouth daily. (Patient not taking: Reported on 08/09/2023) dapagliflozin 5 MG tablet Take 1 tablet by mouth daily. (Patient not taking: Reported on 08/09/2023) hydroCODone-acetaminophen 5-325 MG tablet Take 1-2 tablets by mouth every 6 hours as needed for Severe Pain for up to 7 days. Do not take over 4000mg acetaminophen daily. 20 tablet 0 naloxone 4 MG/0.1ML 1 spray by Nasal route once for 1 dose. [place] into the nose as directed. Call 911. If no response in 2 minutes use a new nasal spray in other nostril. Repeat until help arrives. 1Each 0 oxyCODONE 5 MG tablet Take 1-2 tabs po q 4-6 hours prn pain. Wean as tolerated. 20 tablet 0 Propylene Glycol (SYSTANE COMPLETE OP) Apply to eye as needed. (Patient not taking: Reported on 08/09/2023) Specialty Vitamins Products (ICAPS lutein & zeaxanthin) Tab DR Take 1 tablet by mouth daily. (Patient not taking: Reported on 08/09/2023) traMADol 50 MG tablet 1 tabs po q 6 hr PRN pain 20 tablet 0 No facility-administered medications prior to visit. Allergies: She is allergic to savella [milnacipran], zanaflex [tizanidine], and vancomycin. * Sagar Krause MD - 08/09/2023 2:30 PM EST HPI: Patient is here today for evaluation of her operative knee. She is status post left total kneearthroplasty, conversion from partial to total on 01/29/23. States she has developed pain in the posterior medial side of knee since increasing her physical activities. She reports she is taking Celebrex as prescribed by RA. Her pain is a 6/10. She is here today for a peace of mind evaluation. PHYSICAL EXAM: The operative lower extremity is soft, nontender, full and supple motion. No pain, no impingement. No instability. She has full return of motion, 0-120 degrees, stable examination to varus and valgus stress with normal balance throughout the arc of motion. Palpable tenderness over the pes tendon, hamstrings, quadriceps. The contralateral extremity has full motion, normal stability,no tenderness. Both extremities have normal neurovascular status. DIAGNOSTIC STUDIES/INTERPRETATION: Plain film radiographs reviewed. She has a left total knee arthroplasty in unchanged position and alignment. IMPRESSION: 1.) Pes tendonitis, hamstring tendonitis, quad tendonitis, left. 2.) History of left total knee arthroplasty, conversion from partial to total on 01/29/23. PLAN: I reviewed my findings with Emily. We discussed the diagnosis, radiographs, physical exam findings and treatment options. We discussed her increase of physical activities with what she can expect in challenging the knees, it is reasonable to suspect normal postoperative flare-up however will order ESR/CRP to establish inflammatory status. Medrol dose pack was given until evaluation from RA next month. Encouraged her to temper activities to desired levels. I also recommended additional formal physical therapy but she was not interested. Should she change her mind, she will call my office. All questions were answered to her satisfaction. If symptoms don't improve over the next severalyears, she will call my office for repeat evaluation. Otherwise, next appointment will be left opento her. I have reviewed the findings of the clinical lan support specialist and agree with their assessment. Ortho Nurse - Established Patient Intake Room#: room 2---- pt here today for lt knee pain, pt rates her pain on a scale of 6/10 today. She had a left knee revision done back on 01/29/23. She is having most of her pain on the back meidal sideof the knee, she describes the pain as pinching . Date: 08/09/2023 2:58 PM Patient: Emily Macias MR#: [id number] : 1960 Age: 62 y.o. Referring Physician: Sagar Krause MD Insurance: Payor: MEDICARE AETNA HMO OR PPO / Plan: MEDICARE AETNA HMO / Product Type: *No Product type* / Chief Complaint Patient presents with Left Knee - Pain Visit Vitals Ht 1.651 m (5' 5 ) Wt 91.5 kg (201 lb 12.8 oz) BMI 33.58 kg/m Pain Recent Labs No results found for: CRP No results found for: SEDRATE Lab Results Component Value Date WBC 11.9 (H) 01/30/2023 HGB 10.3 (L) 01/30/2023 HCT 31.5 (L) 01/30/2023 PLATELET 256 01/30/2023 MCV 91.7 01/30/2023 History Past Medical History: Diagnosis Date Meningitis 1991 Anxiety Arthritis Diabetes mellitus Type 2 Hypothyroidism Mononucleosis I've had it multiple times LUIS (obstructive sleep apnea) Renal disease cyst, pt states not sure which side Past Surgical History: Procedure Laterality Date ARTHROPLASTY KNEE TOTAL Left 01/29/2023 Laterality: Left; Surgeon: Sagar Krause MD; Location: [facility] OR ARTHROPLASTY KNEE TOTAL Left 08/13/2017 Partial ARTHROSCOPY KNEE Left 03/2012 SHOULDER ARTHROSCOPY Right 2011 FUNDOPLICATION ENDOSCOPIC 2003 HYSTERECTOMY 2003 CHOLECYSTECTOMY LAPAROSCOPIC 1995 OTHER SURGICAL 1990 ruptured ovarian cyst RELEASE CARPAL TUNNEL Right 1989 EXTRACTION EXTRACAPSULAR CATARACT W/ IMPLANT (ECCE IOL) FASCIECTOMY PLANTAR FASCIA OTHER SURGICAL Left left great toe reconstruction-multiple times OTHER SURGICAL Right right elbow release Family History: Her family history includes Arthritis - Osteo in her mother; Diabetes in her mother; Gout in her father; Hypertension in her mother; Lipid Disorder in her father; Myocardial Infarction in her mother; Pain in her father; Skin Cancer in her father; Stroke in her mother. Social History: Her reports that she has never smoked. She has never used smokeless tobacco. She reports that she does not currently use alcohol. She reports that she does not use drugs. Outpatient Medications Prior to Visit Medication Sig Dispense Refill Acetaminophen 325 MG tablet Take 2 tablets by mouth every 4 hours as needed for Mild Pain. 50 tablet [address] Aspirin [address] tablet Take 1 tablet by mouth 2 times daily. This medication is for blood clotprevention. 60 tablet 0 B Complex Vitamins (B COMPLEX 1 PO) Take by mouth daily. Calcium Carb-Cholecalciferol (CALCIUM + D3 PO) Take by mouth daily. Celecoxib 200 MG capsule Take 1 capsule by mouth 2 times daily. 60 capsule 0 Cobalamin Combinations (B-12) 100-[address] under tongue daily. Docusate 100 MG capsule Take 1 capsule by mouth 2 times daily. 60 capsule 0 levothyroxine 112 MCG tablet Take 1 tablet by mouth daily. AM Magnesium 500 MG capsule Take by mouth daily. Melatonin 5 MG capsule Take by mouth at bedtime. Mesalamine 1.[address] tablet Take 2 tablets by mouth daily. metFORMIN 1000 MG tablet 2 times daily. Multiple Vitamins-Minerals (One Daily Calcium/Iron) tablet Take 1 tablet by mouth daily. Omeprazole [address] tablet Take by mouth daily. Pancrelipase, Djm-Xjlu-Dfcm, (CREON PO) Take 36,000 Units by mouth. 2 tablet by mouth with each meal, 1 tablet by mouth with 1 snack daily Probiotic Product (PROBIOTIC DAILY PO) Take by mouth. Pyridoxine HCl (B-6) 100 MG tablet Take by mouth daily. Vitamin A 2400 MCG (8000 UT) tablet Take by mouth daily. Xiidra 5 % Solution ophthalmic solution Place in both eyes 2 times daily. Zinc 50 MG capsule Take by mouth daily. baclofen 10 MG tablet Take 2 tablets by mouth as needed. (Patient not taking: Reported on 08/09/2023) Cholecalciferol 250 MCG (67516 UT) capsule capsule Take by mouth daily. (Patient not taking: Reported on 08/09/2023) dapagliflozin 5 MG tablet Take 1 tablet by mouth daily. (Patient not taking: Reported on 08/09/2023) hydroCODone-acetaminophen 5-325 MG tablet Take 1-2 tablets by mouth every 6 hours as needed for Severe Pain for up to 7 days. Do not take over 4000mg acetaminophen daily. 20 tablet 0 naloxone 4 MG/0.1ML 1 spray by Nasal route once for 1 dose. [place] into the nose as directed. Call 911. If no response in 2 minutes use a new nasal spray in other nostril. Repeat until help arrives. 1Each 0 oxyCODONE 5 MG tablet Take 1-2 tabs po q 4-6 hours prn pain. Wean as tolerated. 20 tablet 0 Propylene Glycol (SYSTANE COMPLETE OP) Apply to eye as needed. (Patient not taking: Reported on 08/09/2023) Specialty Vitamins Products (ICAPS lutein & zeaxanthin) Tab DR Take 1 tablet by mouth daily. (Patient not taking: Reported on 08/09/2023) traMADol 50 MG tablet 1 tabs po q 6 hr PRN pain 20 tablet 0 No facility-administered medications prior to visit. Allergies: She is allergic to savella [milnacipran], zanaflex [tizanidine], and vancomycin. [facility]* Encounter Date Diagnosis Assessment Notes Treatment Notes Treatment Clinical Notes Apr, Abdominal cramping (ICD-10 - R10.9) Patient reports doing well Apr, Diverticulosis (ICD-10 - K57.90) Apr, Alternating constipation and diarrhea (ICD-10 - R19.8) Apr, Pancreatic atrophy (ICD-10 - K86.89) Apr, Fatty liver (ICD-10 - K76.0) [facility] Other 08-11-2023 Evaluation note* Encounter Date Diagnosis Assessment Notes Treatment Notes Treatment Clinical Notes Apr, Type 2 diabetes mellitus with hyperglycemia, without long-term current use of insulin (ICD-10 - E11.65) [facility] Other 06-15-2023 History of Present illness Narrative* Hayley Delgado LPN - 02/22/2023 3:00 PM EDT Ortho Nurse - Established Patient Intake Room#: 5 Patient is S/P L knee medial/partial revision to TKA. Patient using walker today and penelope hose are in place. She states the worse pain is at HS while trying to sleep. Sitting pain 4/10 Walking pain is 5/10 Date: 02/22/2023 3:16 PM Patient: Emily Macias MR#: [id number] : 1960 Age: 62 y.o. Referring Physician: Radha Asif APRN-CNP Insurance: Payor: MEDICARE AETNA HMO OR PPO / Plan: MEDICARE [employer]ET[employer] HMO / Product Type: *No Product type* / Chief Complaint Patient presents with Left Knee - Surgical Follow-up Visit Vitals Ht 1.651 m (5' 5 ) Wt 85.9 kg (189 lb 6 oz) BMI 31.51 kg/m Pain Recent Labs No results found for: CRP No results found for: SEDRATE Lab Results Component Value Date WBC 11.9 (H) 01/30/2023 HGB 10.3 (L) 01/30/2023 HCT 31.5 (L) 01/30/2023 PLATELET 256 01/30/2023 MCV 91.7 01/30/2023 History Past Medical History: Diagnosis Date Meningitis 1991 Anxiety Arthritis Diabetes mellitus Type 2 Hypothyroidism Mononucleosis I've had it multiple times LUIS (obstructive sleep apnea) Renal disease cyst, pt states not sure which side Past Surgical History: Procedure Laterality Date ARTHROPLASTY KNEE TOTAL Left 01/29/2023 Laterality: Left; Surgeon: Sagar Krause MD; Location: [facility] OR ARTHROPLASTY KNEE TOTAL Left 08/13/2017 Partial ARTHROSCOPY KNEE Left 03/2012 SHOULDER ARTHROSCOPY Right 2011 FUNDOPLICATION ENDOSCOPIC 2003 HYSTERECTOMY 2003 CHOLECYSTECTOMY LAPAROSCOPIC 1995 OTHER SURGICAL 1990 ruptured ovarian cyst RELEASE CARPAL TUNNEL Right 1989 EXTRACTION EXTRACAPSULAR CATARACT W/ IMPLANT (ECCE IOL) FASCIECTOMY PLANTAR FASCIA OTHER SURGICAL Left left great toe reconstruction-multiple times OTHER SURGICAL Right right elbow release Family History: Her family history includes Arthritis - Osteo in her mother; Diabetes in her mother; Gout in her father; Hypertension in her mother; Lipid Disorder in her father; Myocardial Infarction in her mother; Pain in her father; Skin Cancer in her father; Stroke in her mother. Social History: Her reports that she has never smoked. She has never used smokeless tobacco. She reports that she does not currently use alcohol. She reports that she does not use drugs. Outpatient Medications Prior to Visit Medication Sig Dispense Refill Probiotic Product (PROBIOTIC DAILY PO) Take by mouth. Acetaminophen 325 MG tablet Take 2 tablets by mouth every 4 hours as needed for Mild Pain. 50 tablet [address]ir[address] tablet Take 1 tablet by mouth 2 times daily. This medication is for blood clotprevention. 60 tablet 0 B Complex Vitamins (B COMPLEX 1 PO) Take by mouth daily. baclofen 10 MG tablet Take 2 tablets by mouth as needed. Calcium Carb-Cholecalciferol (CALCIUM + D3 PO) Take by mouth daily. Celecoxib 200 MG capsule Take 1 capsule by mouth 2 times daily. 84 capsule 0 Cholecalciferol 250 MCG (65780 UT) capsule capsule Take by mouth daily. Cobalamin Combinations (B-12) 100-[address] under tongue daily. dapagliflozin 5 MG tablet Take 1 tablet by mouth daily. Docusate 100 MG capsule Take 1 capsule by mouth 2 times daily. 60 capsule 0 hydroCODone-acetaminophen 5-325 MG tablet Take 1-2 tablets by mouth every 6 hours as needed for Severe Pain for up to 7 days. Do not take over 4000mg acetaminophen daily. 20 tablet 0 levothyroxine 112 MCG tablet Take 1 tablet by mouth daily. AM Magnesium 500 MG capsule Take by mouth daily. Melatonin 5 MG capsule Take by mouth at bedtime. Mesalamine 1.[address] tablet Take 2 tablets by mouth daily. metFORMIN 1000 MG tablet 2 times daily. Multiple Vitamins-Minerals (One Daily Calcium/Iron) tablet Take 1 tablet by mouth daily. naloxone 4 MG/0.1ML 1 spray by Nasal route once for 1 dose. [place] into the nose as directed. Call 911. If no response in 2 minutes use a new nasal spray in other nostril. Repeat until help arrives. 1Each [address] Omepraz[address] tablet Take by mouth daily. oxyCODONE 5 MG tablet Take 1-2 tabs po q 4-6 hours prn pain. Wean as tolerated. 20 tablet 0 Pancrelipase, [id number], (CREON PO) Take 36,000 Units by mouth. 2 tablet by mouth with each meal, 1 tablet by mouth with 1 snack daily Propylene Glycol (SYSTANE COMPLETE OP) Apply to eye as needed. Pyridoxine HCl (B-6) 100 MG tablet Take by mouth daily. Specialty Vitamins Products (ICAPS lutein & zeaxanthin) Tab DR Take 1 tablet by mouth daily. traMADol 50 MG tablet 1 tabs po q 6 hr PRN pain 20 tablet 0 Vitamin A 2400 MCG (8000 UT) tablet Take by mouth daily. Xiidra 5 % Solution ophthalmic solution Place in both eyes 2 times daily. Zinc 50 MG capsule Take by mouth daily. No facility-administered medications prior to visit. Current Outpatient Medications: Probiotic Product (PROBIOTIC DAILY PO), Take by mouth., Disp: , Rfl: Acetaminophen 325 MG tablet, Take 2 tablets by mouth every 4 hours as needed for Mild Pain., Disp: 50 tablet, Rfl: [address] tablet, Take 1 tablet by mouth 2 times daily. This medication is for blood clot prevention., Disp: 60 tablet, Rfl: 0 B Complex Vitamins (B COMPLEX 1 PO), Take by mouth daily., Disp: , Rfl: baclofen 10 MG tablet, Take 2 tablets by mouth as needed., Disp: , Rfl: Calcium Carb-Cholecalciferol (CALCIUM + D3 PO), Take by mouth daily., Disp: , Rfl: Celecoxib 200 MG capsule, Take 1 capsule by mouth 2 times daily., Disp: 84 capsule, Rfl: 0 Cholecalciferol 250 MCG (16114 UT) capsule capsule, Take by mouth daily., Disp: , Rfl: Cobalamin Combinations (B-12) 100-5000 MCG Tab SL, Place under tongue daily., Disp: , Rfl: dapagliflozin 5 MG tablet, Take 1 tablet by mouth daily., Disp: , Rfl: Docusate 100 MG capsule, Take 1 capsule by mouth 2 times daily., Disp: 60 capsule, Rfl: 0 hydroCODone-acetaminophen 5-325 MG tablet, Take 1-2 tablets by mouth every 6 hours as needed for Severe Pain for up to 7 days. Do not take over 4000mg acetaminophen daily., Disp: 20 tablet, Rfl: 0 levothyroxine 112 MCG tablet, Take 1 tablet by mouth daily. AM, Disp: , Rfl: Magnesium 500 MG capsule, Take by mouth daily., Disp: , Rfl: Melatonin 5 MG capsule, Take by mouth at bedtime., Disp: , Rfl: Mesalamine 1.[address] tablet, Take 2 tablets by mouth daily., Disp: , Rfl: metFORMIN 1000 MG tablet, 2 times daily., Disp: , Rfl: Multiple Vitamins-Minerals (One Daily Calcium/Iron) tablet, Take 1 tablet by mouth daily., Disp: , Rfl: naloxone 4 MG/0.1ML, 1 spray by Nasal route once for 1 dose. [place] into the nose as directed. Call 911. If no response in 2 minutes use a new nasal spray in other nostril. Repeat until help arrives.,Disp: 1 Each, Rfl: 0 Omeprazole [address] tablet, Take by mouth daily., Disp: , Rfl: oxyCODONE 5 MG tablet, Take 1-2 tabs po q 4-6 hours prn pain. Wean as tolerated., Disp: 20 tablet, Rfl: 0 Pancrelipase, [id number], (CREON PO), Take 36,000 Units by mouth. 2 tablet by mouth with each meal, 1 tablet by mouth with 1 snack daily, Disp: , Rfl: Propylene Glycol (SYSTANE COMPLETE OP), Apply to eye as needed., Disp: , Rfl: Pyridoxine HCl (B-6) 100 MG tablet, Take by mouth daily., Disp: , Rfl: Specialty Vitamins Products (ICAPS lutein & zeaxanthin) Tab DR, Take 1 tablet by mouth daily., Disp: , Rfl: traMADol 50 MG tablet, 1 tabs po q 6 hr PRN pain, Disp: 20 tablet, Rfl: 0 Vitamin A 2400 MCG (8000 UT) tablet, Take by mouth daily., Disp: , Rfl: Xiidra 5 % Solution ophthalmic solution, Place in both eyes 2 times daily., Disp: , Rfl: Zinc 50 MG capsule, Take by mouth daily., Disp: , Rfl: Allergies: She is allergic to savella [milnacipran], zanaflex [tizanidine], and vancomycin. * Radha Asif APRN-LUMBER PLANER - 02/22/2023 3:00 PM EDT HPI: Emily Macias is 3 weeks s/p left TKA revisoion. She is happy with her recovery to date and could not be happier with the outcomes of the operation. She is participating in PT in the home setting, using asa for DVT prophylaxis along with compression stockings. She is using celebrex and tylenol and ultram for pain control.. PHYSICAL EXAM: Today on examination she is Temp 98 F (36.7 C) (Temporal) Ht 1.651 m (5' 5 ) Wt 85.9 kg (189 lb6 oz) BMI 31.51 kg/m Smoking Status Never Body mass index is 31.51 kg/m . Pain is reported as 4/10. Incision is healing well without erythema, drainage, induration or evidence of dehiscence. There is mild global knee swelling. Calves are soft and non tender bilaterally with negative Homans sign. Distal neurovascular exam is intact. ROM is reported as unknown in physical therapy, today it is found to be 0-120. The examination is stable to varus and valgus stress. DIAGNOSTIC STUDIES/INTERPRETATION: X-rays were reviewed today and reveal Cemented total knee arthroplasty in good position and alignment unchanged from the immediate postop films. Assessment/Plan: 3 weeks postop left TKA. Continue DVT prophylaxis as prescribed. Continue physical therapy- if ROM goals not obtained the patient is to call the office for a followup appointment otherwise plan for: Follow up [address] Krause for clinical and radiological evaluation unless an earlier need should arise. Dental prophylaxis was prescribed and instructions given. All questions and concerns were addressed at this appointment and the patient expressed understanding. Discussed PT - cost prohibitive. Ok for 1-2 per week. rom is good. Wants more opiates. Would encourage her to use apap only. She is understanding. All pertinent portions of the clinical lan support specialist documentation was reviewed and agree. DANIELLE Gimenez I have reviewed the findings of the clinical lan support specialist and agree with their assessment. DANIELLE Gimenez Ortho Nurse - Established Patient Intake Room#: 5 Patient is S/P L knee medial/partial revision to TKA. Patient using walker today and penelope hose are in place. She states the worse pain is at HS while trying to sleep. Sitting pain 4/10 Walking pain is 5/10 Date: 02/22/2023 3:16 PM Patient: Emily Macias MR#: [id number] : 1960 Age: 62 y.o. Referring Physician: Radha Asif APRN-CNP Insurance: Payor: MEDICARE [employer] HMO OR PPO / Plan: MEDICARE [employer] HMO / Product Type: *No Product type* / Chief Complaint Patient presents with Left Knee - Surgical Follow-up Visit Vitals Ht 1.651 m (5' 5 ) Wt 85.9 kg (189 lb 6 oz) BMI 31.51 kg/m Pain Recent Labs No results found for: CRP No results found for: SEDRATE Lab Results Component Value Date WBC 11.9 (H) 01/30/2023 HGB 10.3 (L) 01/30/2023 HCT 31.5 (L) 01/30/2023 PLATELET 256 01/30/2023 MCV 91.7 01/30/2023 History Past Medical History: Diagnosis Date Meningitis 1991 Anxiety Arthritis Diabetes mellitus Type 2 Hypothyroidism Mononucleosis I've had it multiple times LUIS (obstructive sleep apnea) Renal disease cyst, pt states not sure which side Past Surgical History: Procedure Laterality Date ARTHROPLASTY KNEE TOTAL Left 01/29/2023 Laterality: Left; Surgeon: Sagar Krause MD; Location: [facility] OR ARTHROPLASTY KNEE TOTAL Left 08/13/2017 Partial ARTHROSCOPY KNEE Left 03/2012 SHOULDER ARTHROSCOPY Right 2011 FUNDOPLICATION ENDOSCOPIC 2004 HYSTERECTOMY 2003 CHOLECYSTECTOMY LAPAROSCOPIC 1995 OTHER SURGICAL 1990 ruptured ovarian cyst RELEASE CARPAL TUNNEL Right 1990 EXTRACTION EXTRACAPSULAR CATARACT W/ IMPLANT (ECCE IOL) FASCIECTOMY PLANTAR FASCIA OTHER SURGICAL Left left great toe reconstruction-multiple times OTHER SURGICAL Right right elbow release Family History: Her family history includes Arthritis - Osteo in her mother; Diabetes in her mother; Gout in her father; Hypertension in her mother; Lipid Disorder in her father; Myocardial Infarction in her mother; Pain in her father; Skin Cancer in her father; Stroke in her mother. Social History: Her reports that she has never smoked. She has never used smokeless tobacco. She reports that she does not currently use alcohol. She reports that she does not use drugs. Outpatient Medications Prior to Visit Medication Sig Dispense Refill Probiotic Product (PROBIOTIC DAILY PO) Take by mouth. Acetaminophen 325 MG tablet Take 2 tablets by mouth every 4 hours as needed for Mild Pain. 50 tablet [address]ir[address] tablet Take 1 tablet by mouth 2 times daily. This medication is for blood clotprevention. 60 tablet 0 B Complex Vitamins (B COMPLEX 1 PO) Take by mouth daily. baclofen 10 MG tablet Take 2 tablets by mouth as needed. Calcium Carb-Cholecalciferol (CALCIUM + D3 PO) Take by mouth daily. Celecoxib 200 MG capsule Take 1 capsule by mouth 2 times daily. 84 capsule 0 Cholecalciferol 250 MCG (43109 UT) capsule capsule Take by mouth daily. Cobalamin Combinations (B-12) 100-[address] under tongue daily. dapagliflozin 5 MG tablet Take 1 tablet by mouth daily. Docusate 100 MG capsule Take 1 capsule by mouth 2 times daily. 60 capsule 0 hydroCODone-acetaminophen 5-325 MG tablet Take 1-2 tablets by mouth every 6 hours as needed for Severe Pain for up to 7 days. Do not take over 4000mg acetaminophen daily. 20 tablet 0 levothyroxine 112 MCG tablet Take 1 tablet by mouth daily. AM Magnesium 500 MG capsule Take by mouth daily. Melatonin 5 MG capsule Take by mouth at bedtime. Mesalamine 1.[address] tablet Take 2 tablets by mouth daily. metFORMIN 1000 MG tablet 2 times daily. Multiple Vitamins-Minerals (One Daily Calcium/Iron) tablet Take 1 tablet by mouth daily. naloxone 4 MG/0.1ML 1 spray by Nasal route once for 1 dose. [place] into the nose as directed. Call 911. If no response in 2 minutes use a new nasal spray in other nostril. Repeat until help arrives. 1Each 0 Omeprazole [address] tablet Take by mouth daily. oxyCODONE 5 MG tablet Take 1-2 tabs po q 4-6 hours prn pain. Wean as tolerated. 20 tablet 0 Pancrelipase, [id number], (CREON PO) Take 36,000 Units by mouth. 2 tablet by mouth with each meal, 1 tablet by mouth with 1 snack daily Propylene Glycol (SYSTANE COMPLETE OP) Apply to eye as needed. Pyridoxine HCl (B-6) 100 MG tablet Take by mouth daily. Specialty Vitamins Products (ICAPS lutein & zeaxanthin) Tab DR Take 1 tablet by mouth daily. traMADol 50 MG tablet 1 tabs po q 6 hr PRN pain 20 tablet 0 Vitamin A 2400 MCG (8000 UT) tablet Take by mouth daily. Xiidra 5 % Solution ophthalmic solution Place in both eyes 2 times daily. Zinc 50 MG capsule Take by mouth daily. No facility-administered medications prior to visit. Current Outpatient Medications: Probiotic Product (PROBIOTIC DAILY PO), Take by mouth., Disp: , Rfl: Acetaminophen 325 MG tablet, Take 2 tablets by mouth every 4 hours as needed for Mild Pain., Disp: 50 tablet, Rfl: [address]ir[address] tablet, Take 1 tablet by mouth 2 times daily. This medication is for blood clot prevention., Disp: 60 tablet, Rfl: 0 B Complex Vitamins (B COMPLEX 1 PO), Take by mouth daily., Disp: , Rfl: baclofen 10 MG tablet, Take 2 tablets by mouth as needed., Disp: , Rfl: Calcium Carb-Cholecalciferol (CALCIUM + D3 PO), Take by mouth daily., Disp: , Rfl: Celecoxib 200 MG capsule, Take 1 capsule by mouth 2 times daily., Disp: 84 capsule, Rfl: 0 Cholecalciferol 250 MCG (66924 UT) capsule capsule, Take by mouth daily., Disp: , Rfl: Cobalamin Combinations (B-12) 100-5000 MCG Tab SL, Place under tongue daily., Disp: , Rfl: dapagliflozin 5 MG tablet, Take 1 tablet by mouth daily., Disp: , Rfl: Docusate 100 MG capsule, Take 1 capsule by mouth 2 times daily., Disp: 60 capsule, Rfl: 0 hydroCODone-acetaminophen 5-325 MG tablet, Take 1-2 tablets by mouth every 6 hours as needed for Severe Pain for up to 7 days. Do not take over 4000mg acetaminophen daily., Disp: 20 tablet, Rfl: 0 levothyroxine 112 MCG tablet, Take 1 tablet by mouth daily. AM, Disp: , Rfl: Magnesium 500 MG capsule, Take by mouth daily., Disp: , Rfl: Melatonin 5 MG capsule, Take by mouth at bedtime., Disp: , Rfl: Mesalamine 1.[address] tablet, Take 2 tablets by mouth daily., Disp: , Rfl: metFORMIN 1000 MG tablet, 2 times daily., Disp: , Rfl: Multiple Vitamins-Minerals (One Daily Calcium/Iron) tablet, Take 1 tablet by mouth daily., Disp: , Rfl: naloxone 4 MG/0.1ML, 1 spray by Nasal route once for 1 dose. [place] into the nose as directed. Call 911. If no response in 2 minutes use a new nasal spray in other nostril. Repeat until help arrives.,Disp: 1 Each, Rfl: 0 Omeprazole [address] tablet, Take by mouth daily., Disp: , Rfl: oxyCODONE 5 MG tablet, Take 1-2 tabs po q 4-6 hours prn pain. Wean as tolerated., Disp: 20 tablet, Rfl: 0 Pancrelipase, Vsb-[id number]-Kkem, (CREON PO), Take 36,000 Units by mouth. 2 tablet by mouth with each meal, 1 tablet by mouth with 1 snack daily, Disp: , Rfl: Propylene Glycol (SYSTANE COMPLETE OP), Apply to eye as needed., Disp: , Rfl: Pyridoxine HCl (B-6) 100 MG tablet, Take by mouth daily., Disp: , Rfl: Specialty Vitamins Products (ICAPS lutein & zeaxanthin) Tab DR, Take 1 tablet by mouth daily., Disp: , Rfl: traMADol 50 MG tablet, 1 tabs po q 6 hr PRN pain, Disp: 20 tablet, Rfl: 0 Vitamin A 2400 MCG (8000 UT) tablet, Take by mouth daily., Disp: , Rfl: Xiidra 5 % Solution ophthalmic solution, Place in both eyes 2 times daily., Disp: , Rfl: Zinc 50 MG capsule, Take by mouth daily., Disp: , Rfl: Allergies: She is allergic to savella [milnacipran], zanaflex [tizanidine], and vancomycin. [facility] NotePROCEDURE: XR KNEE LEFT 2 VIEWS DATE: 01/29/2023 4:11 PM CDT COMPARISONS: 11/30/2022 CLINICAL INDICATION: tka FINDINGS: There is interval placement of prosthetic right knee. On previous images there was hemiarthroplasty which was removed and revised on today's exam. On today's exam prosthetic components are in good position and alignment with respect to each other and with respect to the [place] distal femur proximal tibia and patella. Recent postop changes are identified. A drain overlies the medial aspect of the knee. IMPRESSION: Recent postop changes. Osseous structures and prosthetic components in good position and alignment..[facility]* Encounter Date Diagnosis Assessment Notes Treatment Notes Treatment Clinical Notes January, Alternating constipation and diarrhea (ICD-10 - R19.8) [facility] Other 05-02-2023 Evaluation note* Encounter Date Diagnosis Assessment Notes Treatment Notes Treatment Clinical Notes January, Pre-op evaluation (ICD-10 - Z01.818) Reviewed preop testing after OV. Of note is the negative MRSA, but the + staph aureus on the testing. Assume that this is benign, defer to surgeon or surgery center to address this. Otherwise, denies adverse surgical reactions or issues with anesthesia in the past. She is medically cleared for the knee surgery. January, Type 2 diabetes mellitus with hyperglycemia, without long-term current use of insulin (ICD-10 - E11.65) D/C Ozempic Samples given of I[place] and pt will trial those. [facility] Other 04-24-2023 Evaluation note* Encounter Date Diagnosis Assessment Notes Treatment Notes Treatment Clinical Notes Dec, Abdominal cramping (ICD-10 - R10.9) Patient states pain & cramping are in on the right lower side but also on the left lower side as well. Patient has alternating constipation & diarrhea as well. Patient takes Bentyl prn & Omeprazole. Patient is taking Ozempic. Dec, Diverticulosis (ICD-10 - K57.90) fouund on CT scan in October of last year in [place], following a colonoscopy that was done in September Start Mesalamine Dec, Alternating constipation and diarrhea (ICD-10 - R19.8) Start low fod map diet Start probiotics [facility] Other 03-23-2023 History of Present illness Narrative* Paulo Cooper, AUTOMOTIVE SALESPERSON - 11/30/2022 1:30 PM EDT Ortho Nurse - Patient Intake Room#: 1 Left knee pain of 5-6 can be an 8, partial knee Daryl Lazar 08-13-2017 has never stopped hurting since her surgery, States she cannot kneel or put weight on her knee, he has done injectionssince that have not helped, she does have back issues and has seen pain management for injections Date: 11/30/2022 2:13 PM Patient: Emily Macias MR#: [id number] : 1960 Age: 61 y.o. Referring Physician: Self, Self Insurance: Payor: MEDICARE [employer] HMO OR PPO / Plan: MEDICARE [employer] HMO / Product Type: *No Product type* / Chief Complaint Patient presents with Left Knee - Pain Visit Vitals Ht 1.651 m (5' 5 ) Wt 87.5 kg (193 lb) BMI 32.12 kg/m Pain Presence of Pain: complains of pain/discomfort Pain Location: knee, left Select Pain Scale: DVPRS (Defense and Veterans Pain Rating Scale) (Adult- Cognitively Intact) Pain Location: knee, left Select Pain Scale: DVPRS (Defense and Veterans Pain Rating Scale) (Adult- Cognitively Intact) Recent Labs No results found for: CRP No results found for: SEDRATE No results found for: WBC, WBCCOUNT, WBCFETAL, HGB, HCT, PLATELET, MCV History Past Medical History: Diagnosis Date Hypothyroidism Past Surgical History: Procedure Laterality Date ARTHROPLASTY KNEE TOTAL Left 08/13/2017 Partial ARTHROSCOPY KNEE Left 03/2012 Family History: Her family history is not on file. Social History: Her reports that she has never smoked. She has never used smokeless tobacco. She reports that she does not currently use alcohol. She reports that she does not use drugs. Additional Social History Y N Notes Do you live alone? [] [x] Who lives with you: Do you have children? [x] [] How many: 3 Do you currently work? [] [x] What type of work do you do: Do you have stairs in the home? [x] [] How many do you have to climb to enter your home: What services do you currently receive at home? [] [x] Name: Do you have transportation to go to outpatient therapy if needed? [x] [] What Equipment do you have at home? [x] [] [x]Walker, []Crutches, []Commode Chair, []Shower []Chair, [x]cane, []bracing Are you followed by a manager grant? [] [x] Name: Are you followed by pain management? [] [x] Name: Are you followed by any other specialists? [x] [] Name: RA Dr Felipa Santana Outpatient Medications Prior to Visit Medication Sig Dispense Refill Ascorbic Acid 1000 MG tablet Take 1 tablet by mouth daily. B Complex Vitamins (B COMPLEX 1 PO) Take by mouth. Biotin 76665 MCG tablet Take by mouth. Cholecalciferol 250 MCG (94752 UT) capsule capsule Take by mouth. Cobalamin Combinations (B-12) 100-[address] under tongue. Dicyclomine 20 MG tablet Take 1 tablet by mouth every 6 hours. Docusate (Stool Softener) 100 MG capsule Take 1 capsule by mouth 2 times daily. eszopiclone 2 MG tablet Take 1 tablet by mouth daily. Ibuprofen 600 MG tablet Take 800 mg by mouth every 6 hours as needed for Mild Pain. levothyroxine 112 MCG tablet LUTEIN PO Take 25 mg by mouth. Magnesium 500 MG capsule Take by mouth. Melatonin 5 MG capsule Take by mouth. metFORMIN 1000 MG tablet METHOCARBAMOL PO Take by mouth. Multiple Vitamins-Minerals (One Daily Calcium/Iron) tablet Take 1 tablet by mouth daily. nabumetone 750 MG tablet Probiotic Product (PROBIOTIC DAILY PO) Take by mouth. Pyridoxine HCl (B-6) 100 MG tablet Take by mouth. Specialty Vitamins Products (ICAPS lutein & zeaxanthin) Tab DR Take 1 tablet by mouth 2 times daily. Turmeric 500 MG capsule Take by mouth. Vitamin A 2400 MCG (8000 UT) tablet Take by mouth. Zinc 50 MG capsule Take by mouth. No facility-administered medications prior to visit. Current Outpatient Medications: Ascorbic Acid 1000 MG tablet, Take 1 tablet by mouth daily., Disp: , Rfl: B Complex Vitamins (B COMPLEX 1 PO), Take by mouth., Disp: , Rfl: Biotin 40009 MCG tablet, Take by mouth., Disp: , Rfl: Cholecalciferol 250 MCG (48839 UT) capsule capsule, Take by mouth., Disp: , Rfl: Cobalamin Combinations (B-12) 100-5000 MCG Tab SL, Place under tongue., Disp: , Rfl: Dicyclomine 20 MG tablet, Take 1 tablet by mouth every 6 hours., Disp: , Rfl: Docusate (Stool Softener) 100 MG capsule, Take 1 capsule by mouth 2 times daily., Disp: , Rfl: eszopiclone 2 MG tablet, Take 1 tablet by mouth daily., Disp: , Rfl: Ibuprofen 600 MG tablet, Take 800 mg by mouth every 6 hours as needed for Mild Pain., Disp: , Rfl: levothyroxine 112 MCG tablet, , Disp: , Rfl: LUTEIN PO, Take 25 mg by mouth., Disp: , Rfl: Magnesium 500 MG capsule, Take by mouth., Disp: , Rfl: Melatonin 5 MG capsule, Take by mouth., Disp: , Rfl: metFORMIN 1000 MG tablet, , Disp: , Rfl: METHOCARBAMOL PO, Take by mouth., Disp: , Rfl: Multiple Vitamins-Minerals (One Daily Calcium/Iron) tablet, Take 1 tablet by mouth daily., Disp: , Rfl: nabumetone 750 MG tablet, , Disp: , Rfl: Probiotic Product (PROBIOTIC DAILY PO), Take by mouth., Disp: , Rfl: Pyridoxine HCl (B-6) 100 MG tablet, Take by mouth., Disp: , Rfl: Specialty Vitamins Products (ICAPS lutein & zeaxanthin) Tab DR, Take 1 tablet by mouth 2 times daily., Disp: , Rfl: Turmeric 500 MG capsule, Take by mouth., Disp: , Rfl: Vitamin A 2400 MCG (8000 UT) tablet, Take by mouth., Disp: , Rfl: Zinc 50 MG capsule, Take by mouth., Disp: , Rfl: Allergies: She is allergic to savella [milnacipran] and zanaflex [tizanidine]. Y N Are you allergic to any metals? [] [x] If yes, what metals: Review of Systems System Y N Symptoms Constitutional [] [x] Weight Loss [] [x] Weight Gain [] [x] Chronic Fever [x] [] Insomnia Eyes [] [x] Resent Vision Change [] [x] Cataracts [] [x] Glaucoma [] [x] Any Hx of Metal Fragments in the Eye ENT [x] [] Loss of hearing [x] [] Hearing Aids [] [x] Seasonal Allergies [] [x] Dental Issues Cardiovascular [] [x] Chest Pain [] [x] Angina [] [x] Stent [] [x] Hypertension [] [x] Heart Murmur [] [x] Irregular Pulse [] [x] Pacemaker [] [x] Palpitations [] [x] High cholesterol Respiratory [] [x] Wheezing [] [x] Shortness of Breath [] [x] Pneumonia [] [x] Bronchitis [x] [] Sleep Apnea [] [x] COPD [] [x] Date/ LOC of last CXR: Gastrointestinal [] [x] Heartburn [] [x] Indigestion [] [x] Constipation [] [x] Ulcer [] [x] GI Stomach Bleed [] [x] Diarrhea [] [x] Colon Cancer [] [x] Acid Reflux [] [x] Blood in Stools Musculoskeletal [x] [] Arthritis [] [x] Muscle Weakness [x] [] Joint Pain [x] [] Back Pain [] [x] Fibromyalgia [] [x] Bone Infection [] [x] Swelling - Multiple Joints [] [x] Reflex Sympathetic Dystrophy Skin [] [x] Chronic Rash [] [x] Ulcers [] [x] Eczema [] [x] Psoriasis [] [x] Skin Cancer [] [x] Melanoma Neurologic [] [x] Numbness [] [x] Weakness or loss of sensation in arms or legs [] [x] Leg Pain / Sciatica [] [x] Headaches [] [x] Loss of bowel or bladder control Psychiatric [x] [] Anxiety [] [x] Claustrophobia [] [x] Other Psychiatric Problems Hematologic [] [x] Easy Bruising [] [x] Easy Bleeding [] [x] Blood Transfusion Date: Endocrine [x] [] Hypothyroid [] [x] Hyperthyroid [] [x] Hot Flashes [] [x] Hormone Replacement [x] [] Prednisone Use Does pt have dentures? no * Sagar Krause MD - 11/30/2022 1:30 PM EDTAssociated Order(s): LARGE JOINT/BURSA INJECTION AND/OR ASPIRATION: R knee Post-Procedure Diagnose(s): Pain in prosthetic joint, sequela HPI: Patient is here today to be evaluated for left knee pain. She is a pleasant 61 y.o. female. Primary complaint is pain and discomfort. She has experienced a progressive decline in physical function and quality of life secondary to the discomfort in the left knee. She presents with a highly complex array of symptoms. She has history of partial medial [place] knee on 08/13/[address] Lazar. She reports pain since the operation, she states she cannot kneel and it hurts to bear weight. The more she is on it, the more it hurts. She has locking, popping, catching, clicking and instability. She has attempted knee injections in the past with ineffectiveness. She also reports back issues and see pain management for back injections on a regular basis. ESR was 42 (<0-20) and CRP was 0.8(<1.0) on 10/18/22. Sh denies past fevers or chills. Her pain is a 8/10 upon exam today. She is here today for evaluation and to determine treatment options. PHYSICAL EXAM: This is an alert, oriented, and age-appropriate female. She is in no distress. Pleasant and cooperative. EXTREMITIES: The upper extremities have no gross deformities. Normal stability.Skin Intact. 5/5 motor. Intact sensation. Normal neurovascular status. Normal coordination. The lower extremities have no gross deformities. Normal stability. Skin Intact. 5/5 motor. Intact sensation. Normal neurovascular status. Normal coordination. Well healed old incision. Range of motion upon exam today is 0-125. Significant patellofemoral crepitus throughout the arc of motion. Painful range of motion. Full motion of hip. No pain. No impingement. No instability. Contralateral leg has normalalignment. Full motion. No pain. No impingement. No instability. IMAGING: Plain film radiographs were reviewed. Long-standing films of mechanical axis that falls tothe medial compartment of the left knee. She has a medial partial Bryan uni-arthroplasty in place with severe adjacent patellofemoral arthritis. IMPRESSION: 1.) History of left partial medial Bryan uni knee on 08/13/[address] Lazar. 2.) Symptomatic severe patellofemoral arthritis, left knee. 3.) Symptomatic moderate to severe arthritis of the right knee. PLAN: I have reviewed my findings with patient. We have gone over the diagnosis, the radiographs, physical exam findings and treatment options. We then discussed conservative vrs surgical interventions along with the pros and cons of each method. Surgical options including conversion from uni to total knee arthroplasty and conservative options including bracing, antiinflammatories, possible injections, physical therapy, etc. At this time, she is weary of her symptoms and is here today to begin the scheduling process for a TKA conversion from uni to total for optimal alf management. We have discussed in great detail the nature of the diagnosis, the natural history and expected progression which is likely worsening pain, instability with risks of falls, and additional joint wear and or bone loss. We have discussed the options for treatment including both conservative and operative treatments. We have discussed the risks, benefits, and alternatives to each treatment. Emily is interested in surgical management in the form of a left total knee replacement, conversion from uni to total. Emily understands that the potential benefits are reduced pain, improved stability andimproved function. Emily also understands that the major limb and/or life threatening risks include, but are not limited to: bleeding, infection, neurovascular injury including foot drop or paralysis, dislocation, component failure, implant loosening, ligament or tendon disruption, fracture, stiffness, chronic pain, chronic disability, need for further surgery, blood clots in the extremities or lungs, stroke, heart attack, loss of limb, and ultimately loss of life. thrasher feeder expectations, risks and general implant survivorship were also discussed. Despite these risks, the patient would liketo proceed with surgical planning. Today, we will initiate the pre-surgical process including nasalMRSA screening, scheduling an appointment for [facility] and the potential surgical date, andreviewing and signing the consent forms. INJECTION OF THE RIGHT KNEE: During the course of our conversation, she desires arthritis management in the form of injections for the right knee. After explanations of the risks, benefits and alternatives and obtaining verbal consent, an injection in the right knee was administered. She tolerated the injection with no complaints. Aftercare instructions were provided with all questions being answered. LARGE JOINT/BURSA INJECTION AND/OR ASPIRATION: R knee Date/Time: 11/30/2022 1:30 PM Supporting Documentation Indications: pain Procedure Details: Location: knee - R knee Local Anesthetic: ethyl chloride (cold spray) Needle size: 22 G Medication Verification: I have personally verified and performed the final check of the medication(s) used in this procedure prior to administration. The following items were included during the verification process for medication(s) administered: drug name, strength, volume, expiration, physical integrity and appearance of the medication(s). Medications administered: 5 mL Lidocaine 1% (PF) 1 %;1 mL triamcinolone 40 MG/ML Patient tolerance: patient tolerated the procedure well with no immediate complications The patient was prepped with Betadine. I have reviewed the findings of my clinical staff below and agree with their assessment. Vitals: 11/30/22 1358 Weight: 87.5 kg (193 lb) Height: 1.651 m (5' 5 ) Pain Presence of Pain: complains of pain/discomfort Pain Location: knee, left Select Pain Scale: DVPRS (Defense and Veterans Pain Rating Scale) (Adult- Cognitively Intact) Pain Location: knee, left Select Pain Scale: DVPRS (Defense and Veterans Pain Rating Scale) (Adult- Cognitively Intact) Recent Labs No results found for: CRP No results found for: SEDRATE No results found for: WBC, WBCCOUNT, WBCFETAL, HGB, HCT, PLATELET, MCV Past Medical History: Diagnosis Date Hypothyroidism Past Surgical History: Procedure Laterality Date ARTHROPLASTY KNEE TOTAL Left 08/13/2017 Partial ARTHROSCOPY KNEE Left 03/2012 History reviewed. No pertinent family history. Social History Socioeconomic History Marital status: Tobacco Use Smoking status: Never Smokeless tobacco: Never Substance and Sexual Activity Alcohol use: Not Currently Drug use: Never Current Outpatient Medications: Ascorbic Acid 1000 MG tablet, Take 1 tablet by mouth daily., Disp: , Rfl: B Complex Vitamins (B COMPLEX 1 PO), Take by mouth., Disp: , Rfl: Biotin 90337 MCG tablet, Take by mouth., Disp: , Rfl: Cholecalciferol 250 MCG (09226 UT) capsule capsule, Take by mouth., Disp: , Rfl: Cobalamin Combinations (B-12) 100-5000 MCG Tab SL, Place under tongue., Disp: , Rfl: Dicyclomine 20 MG tablet, Take 1 tablet by mouth every 6 hours., Disp: , Rfl: Docusate (Stool Softener) 100 MG capsule, Take 1 capsule by mouth 2 times daily., Disp: , Rfl: eszopiclone 2 MG tablet, Take 1 tablet by mouth daily., Disp: , Rfl: Ibuprofen 600 MG tablet, Take 800 mg by mouth every 6 hours as needed for Mild Pain., Disp: , Rfl: levothyroxine 112 MCG tablet, , Disp: , Rfl: LUTEIN PO, Take 25 mg by mouth., Disp: , Rfl: Magnesium 500 MG capsule, Take by mouth., Disp: , Rfl: Melatonin 5 MG capsule, Take by mouth., Disp: , Rfl: metFORMIN 1000 MG tablet, , Disp: , Rfl: METHOCARBAMOL PO, Take by mouth., Disp: , Rfl: Multiple Vitamins-Minerals (One Daily Calcium/Iron) tablet, Take 1 tablet by mouth daily., Disp: , Rfl: nabumetone 750 MG tablet, , Disp: , Rfl: Probiotic Product (PROBIOTIC DAILY PO), Take by mouth., Disp: , Rfl: Pyridoxine HCl (B-6) 100 MG tablet, Take by mouth., Disp: , Rfl: Specialty Vitamins Products (ICAPS lutein & zeaxanthin) Tab DR, Take 1 tablet by mouth 2 times daily., Disp: , Rfl: Turmeric 500 MG capsule, Take by mouth., Disp: , Rfl: Vitamin A 2400 MCG (8000 UT) tablet, Take by mouth., Disp: , Rfl: Zinc 50 MG capsule, Take by mouth., Disp: , Rfl: Allergies Allergen Reactions Savella [Milnacipran] Headache migraines Zanaflex [Tizanidine] [facility]* Encounter Date Diagnosis Assessment Notes Treatment Notes Treatment Clinical Notes Sep, Fibromyalgia (ICD-10 - M79.7) handicap placard rx handwritten Sep, Type 2 diabetes mellitus with hyperglycemia, without long-term current use of insulin (ICD-10 - E11.65) good readings on home meter with present meds. Sep, Positive ADRI (antinuclear antibody) (ICD-10 - R76.8) Suggested getting on cancellation list at Rheumatology [facility] Other 01-13-2023 Evaluation note* Encounter Date Diagnosis Assessment Notes Treatment Notes Treatment Clinical Notes Sep, Positive ADRI (antinuclear antibody) (ICD-10 - R76.8) Sep, Fibromyalgia (ICD-10 - M79.7) [employer] Other 01-13-2023 NoteThis is a Telephone Appointment *This visit was conducted by Telephone with real time communicationand interaction. This was performed due to the current COVID-19 pandemic in order to minimize exposure to both patients and staff. The patient verbally consented to treatment. The patient understandstheir rights, the HIPAA risks and that they will be charged accordingly for the services rendered. Chief Complaint test result review History of Present Illness Patient is a pleasant 61-year-old female who presents for follow-up over the telephone for concern for left nerve entrapment pain. She presents for follow-up of rheumatology labs. She presents via telephone today. She is at her home. She states that since last visit her pain has worsened since lastvisit overall all the joints of her body feel more painful and stiff currently. She has been takingnerve vitamins and Mobic which helps somewhat. She is also taking gabapentin which she feels may help a little bit. She also relates that she has low back pain, shoulder pain, hand pain. Does get joint pain and stiffness that last between 1/2-hour an hour in the morning. Patient relates she is diabetic. Sees Dr. Montoya as her primary care physician. Relates her last hemoglobin A1c was 6.1. Relates morning glucose of 112. Patient reports last primary care physician visit was August. She has not been able to yet obtain her diabetic shoes. Review of Systems Constitutional Head Nose Mouth Throat Cardio/Respiratory Hematologic Chills: No Headache: No Shortness of Breath: No History of DVT: No Fever: No Sore Throat: No Chest Pain: No History of Claudication: No Ear Pain: No Palpitation: No History of Aneurysm: No History of Gangrene: No Genitourinary Musculoskeletal Psychiatric Vascular Burning: No Muscle Weakness: No Anxiety: No Blood Disorder: No Pain: No Joint Pain: No Depression: No Numbness: No Gastrointestinal Dermatology Rheumatologic Problems: No Rash: No History of Rheumatic Arthritis: No Pain: No Pruritus: No History of Gout: No History of Lupus: No Physical Exam Vitals & Measurements HT: 165 cm WT: 89.2 kg WT: 89.2 kg (Dosing) BMI: 32.76 General: No audible acute distress. Normal conversant. Alert and oriented x 4. Attentive and appropriate. Asks appropriate questions. No gross deficits in reasoning memory or intellect. Respiratory: No audible labored breathing. No audible wheezing or stridor noted. [1] Additional Vitals No qualifying data available. Assessment/Plan 1. Multiple joint pain Ordered: Referral to Rheumatology 2. Diabetic neuropathy 3. History of foot surgery 4. Deep peroneal neuropathy 5. Entrapment of left superficial peroneal nerve 6. Arthritis, midfoot 7. Contracture of left Achilles tendon 8. Retained orthopedic hardware 9. ADRI positive Orders: External Referral -Evaluation and Management extensive and detailed with time spent with patient dedicated to discussion of pathogenesis and treatment options for patient's problem including neurologic examination androutine monitoring, shoe gear inspection and recommendations, Custom extra depth/diabetic shoes, frequency of rechecks, Blood Glucose and A1c education and importance in risks and amputations. Further care to avoid infection and amputation discussed in detail, home shoe wear, no barefoot all discussed, house shoes better options than socks and barefoot, mirror or family member daily foot checks, and application of common-sense foot protection from elements and extreme cold and heat. -All above Diabetes mellitus foot education discussed and handouts given, including resources online and locally Encourage patient to obtain custom extra-depth diabetic shoes I discussed tentative working diagnosis of entrapment of the superficial peroneal nerve and deep peroneal nerve on the left. Also discussed that she has multiple etiologies for potential neuritic/nerve pain including diabetes mellitus, Lyme disease, history of low back pain. EMG reviewed, MRI reviewed, ABIs reviewed prior On labs her ADRI was positive. Given this and her worsening joint pain and stiffness I would like torefer her to rheumatology. All questions and concerns answered. Patient amenable to plan. Discussed potential diagnostic ultrasound-guided injections of the saphenous nerve, superficial peroneal nerve, deep peroneal nerve with patient. Patient would like to see rheumatology first before proceeding with diagnostic injections. I would like to have a telephone visit with patient after she sees rheumatology. She relates understanding. All questions and concerns answered. No radiographs needed at next visit. Time Spent with the Patient Today's visit was performed via telehealth and utilized an audio only connection. Duration of the visit in conversation with the patient: [7] Problem List/Past Medical History Ongoing No chronic problems Historical No qual (more content not included)...[facility]01-04-2023 Evaluation note* Encounter Date Diagnosis Assessment Notes Treatment Notes Treatment Clinical Notes Sep, Abdominal cramping (ICD-10 - R10.9) Sep, Type 2 diabetes mellitus with hyperglycemia, without long-term current use of insulin (ICD-10 - E11.65) advised holding or decreasing dose of ozempic to 0.25/week as this could relate to GI side effects [employer] Other 01-03-2023 NoteThis is a Telephone Appointment *This visit was conducted by Telephone with real time communicationand interaction. This was performed due to the current COVID-19 pandemic in order to minimize exposure to both patients and staff. The patient verbally consented to treatment. The patient understandstheir rights, the HIPAA risks and that they will be charged accordingly for the services rendered. Chief Complaint TELEHEALTH, MRI/EMG Review History of Present Illness Patient is a pleasant 61-year-old female who presents for follow-up over the telephone for concern for left nerve entrapment pain. She presents for follow-up of ABIs and MRI. She also presents over telephone to discuss results of recent EMG. She states that since last visit her pain is unchanged. She has been taking nerve vitamins and Mobic which helps somewhat. She is inquiring about other treatment modalities. She also relates that she has low back pain, shoulder pain, hand pain. She relates she has never been tested for any rheumatologic diseases. She denies family history of rheumatologicdiseases. Does get joint pain and stiffness that last between 1/2-hour an hour in the morning. Patient relates she is diabetic. Sees Dr. Cervantes as her primary care physician. Relates her last hemoglobin A1c was 6.1. Relates morning glucose of 110. Patient reports last primary care physician visit was June 27, 2022. [1] She has not been able to yet obtain her diabetic shoes. Review of Systems Constitutional Head Nose Mouth Throat Cardio/Respiratory Hematologic Chills: No Headache: No Shortness of Breath: No History of DVT: No Fever: No Sore Throat: No Chest Pain: No History of Claudication: No Ear Pain: No Palpitation: No History of Aneurysm: No History of Gangrene: No Genitourinary Musculoskeletal Psychiatric Vascular Burning: No Muscle Weakness: No Anxiety: No Blood Disorder: No Pain: No Joint Pain: No Depression: No Numbness: No Gastrointestinal Dermatology Rheumatologic Problems: No Rash: No History of Rheumatic Arthritis: No Pain: No Pruritus: No History of Gout: No History of Lupus: No Physical Exam Vitals & Measurements HT: 165 cm WT: 89.2 kg WT: 89.2 kg (Dosing) BMI: 32.76 General: No audible acute distress. Normal conversant. Alert and oriented x 4. Attentive and appropriate. Asks appropriate questions. No gross deficits in reasoning memory or intellect. Respiratory: No audible labored breathing. No audible wheezing or stridor noted. Additional Vitals No qualifying data available. Assessment/Plan 1. Diabetic neuropathy Ordered: gabapentin, 1 caps, Oral, TID, # 90 caps, 0 Refill(s), Pharmacy: [facility] [id number] 2. History of foot surgery 3. Multiple joint pain 4. Deep peroneal neuropathy 5. Entrapment of left superficial peroneal nerve 6. Arthritis, midfoot 7. Contracture of left Achilles tendon 8. Retained orthopedic hardware Orders: Antinuclear Antibody HEp-2 Substrate-[place] C-Reactive Protein Complete Blood Count w/ Differential Cyclic Citrullinated Peptide Antibody-[place] Erythrocyte Sedimentation Rate HLA Y41-[id number] Renal Function Panel Rheumatoid Factor, Serum -Evaluation and Management extensive and detailed with time spent with patient dedicated to discussion of pathogenesis and treatment options for patient's problem including neurologic examination androutine monitoring, shoe gear inspection and recommendations, Custom extra depth/diabetic shoes, frequency of rechecks, Blood Glucose and A1c education and importance in risks and amputations. Further care to avoid infection and amputation discussed in detail, home shoe wear, no barefoot all discussed, house shoes better options than socks and barefoot, mirror or family member daily foot checks, and application of common-sense foot protection from elements and extreme cold and heat. -All above Diabetes mellitus foot education discussed and handouts given, including resources online and locally Encourage patient to obtain custom extra-depth diabetic shoes I discussed tentative working diagnosis of entrapment of the superficial peroneal nerve and deep peroneal nerve on the left. Also discussed that she has multiple etiologies for potential neuritic/nerve pain including diabetes mellitus, Lyme disease, history of low back pain. EMG reviewed, MRI reviewed, ABIs reviewed. Discussed with patient. Given her multiple joint pain and stiffness I would like to order rheumatology panel as above. Patient will obtain this at the [facility]. Given her symptoms we will also initiate gabapentin 100 mg 3 times daily. Educated on adverse effects. Discussed that should she want to continue that she should have it prescribed by her primary care physician moving forward. All questions and concerns answered. Patient amenable to plan. Discussed potential diagnostic ultrasound-guided injections of the saphenous nerve, superficial peroneal nerve, deep (more content not included)...[facility]10-31-2022 NotePROCEDURE: XR TIB_FIB RT 2V COMPARISON: 08/24/2021 HISTORY: Pain in lower limb FINDINGS: BONES:No acute fracture or dislocation. Degenerative changes of the knee and ankle. Enthesopathic spurring of the calcaneus SOFT TISSUES:Negative. No visible soft tissue swelling. EFFUSION:None visible. OTHER: Negative. IMPRESSION: Osteoarthritis Electronically authenticated by: WANDA DIANE Date: 2022-07-10 13:36[id number] NoteCONSULTATION CONSULTATION DATE: 03/08/2022 HISTORY OF PRESENT ILLNESS: This is a pleasant, 61-year-old female returning to the clinic for a three month follow up for chronic neck and lower back pain. She was last seen in October when, at that time, she was ordered bilateral cervical trigger points as well as cervical MBBs. Patient did have some financial hardships, but is working with the hospital on those issues and would like to move forward with the injections now. Also, since her last appointment and due to financial reasons, the patient stopped most of her medications. She presents with 6/10 pain to both the lower back and the neck. She has some increased radicular pain down bilateral lower extremities to the toes, but her pain is greatest at her neck at this time. She is asking for possible trigger point injections in the office today to help with that pain. She describes it as tight, throbbing and achy. She has been off of her muscle relaxer and anti-inflammatory for approximately three months. She has lost weight since her last appointment and is continuing to work on that. She has been actively outside and contributes that to her higher level of pain. Activities such as twisting, standing, case picker hours and physical activity aggravate her pain. Massage and the use of heat in the evenings mitigate it. She does occasionally take an ibuprofen 800 mg in the evening, which she reports gives her minimal relief. Patient's REVIEW OF SYSTEMS / PAST MEDICAL HISTORY / ALLERGIES and IMAGES have been reviewed and they are noted on the chart. PHYSICAL EXAM: VITAL SIGNS: Blood pressure 118/64, heart rate is 76. Temperature is 96.9. She is 5'5 , weighs 92.7 kg. GENERAL APPEARANCE: Pleasant, appropriate and cooperative. No acute distress. FOCUSED EXAM - NECK: Range of motion is guarded in lateral rotation and flexion/extension. Patient denies pain that radiates below her shoulders. Reproduction of patient's spinal axial pain to direct compression along the posterior aspects of the cervical facets of C3, C4 and C5, C6 bilaterally. This is concordant with facet arthropathy, cervical spondylosis. Trigger points are identified to bilateral cervical trapezius muscles, significant spasming bilaterally. BACK: Paravertebral muscles are taut but non-spasmodic. Reproduction of pain to compression of the lumbar facets as well. MUSCULOSKELETAL: Motor is intact to upper and lower extremities, 4/5 bilaterally. No motor weakness noted. NEUROLOGICALLY: Patchy hypoesthesia noted along L5, S1 bilaterally with +1 bilateral patellar and Achilles reflex. IMPRESSION: Cervical spondylosis, cervical degenerative disc, cervical spasms and lumbar radiculitis. PLAN: The patient will receive bilateral cervical trigger point injections in the office today, which she consents to. We will restart her on baclofen 10 mg q.h.s. and diclofenac 75 mg b.i.d. I did recommend home traction and gave her ideas how to obtain those on the internet. We will move forward to gain authorization for a #1 bilateral MBB at C3, C4 and C5, C6, and patient will be followed up in the office post procedure. Patient agrees with the plan of care and would like to move forward. [facility] Signed and Approved by: SABINA DELGADILLO . 03/09/2022 13:38:00[facility] Diagnosis Pain in prosthetic joint, sequela- Primary [facility] noteNo InformationNort [employer] Other Evaluation note* Diagnosis Hx of total knee arthroplasty, left- Primary [facility] noteNo assessment information availablePromedica Memorial [facility] Work Phone: Evaluation note* Diagnosis Post-op pain- Primary Other acute postoperative pain Pain in prosthetic joint, subsequent encounter documented in this [facility] Narrative - Reported* Type Description Date Medical History Fibromyalgia Medical History Meningitis Medical History Liver mass Medical History Renal mass Medical History Hyperlipidemia, mixed Medical History Lyme disease Medical History Anxiety and depression Medical History Polyarthralgia Medical History Autoimmune hypothyroidism Medical History Nontoxic uninodular goiter Medical History Multinodular goiter Medical History Candidiasis Medical History Hypothyroidism Medical History Headache Medical History Hemorrhoids, external Medical History Prolapse of uterus Medical History Peptic ulcer disease Medical History Diabetic neuropathy Medical History Metatarsalgia of right foot Medical History Right foot pain Medical History Left foot pain Medical History Plantar fasciitis of right foot Medical History Type 2 diabetes divya itus with hyperglycemia, unspecified whether emergency department rn insulin use Medical History Fitzpatrick splints, right, initial enc ounter Medical History OAB (overactive bladder) Medical History Fatigue Medical History Hammer toe of left foot Medical History Abscess of left great toe Medical History Other acquired deformities of le ft foot Medical History Acute right flank pain Medical History 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, including poison iris, sumac, and oak Medical History Cellulitis of left toe Medical History Tick bite Medical History Neurogenic pain of left lower ex tremity Medical History Thumb pain, left Medical History Broken internal join t prosthesis, unspecified site, subsequent encounter Medical History Cervical pain Medical History Left lumbar pain Medical History Vitamin D deficiency Medical History Myalgia Medical History Unspecified internal derangement of left knee Medical History Diarrhea Medical History Bilateral primary osteoarthritis of knee Medical History SUSSY (generalized anxiety disorde r) Medical History OA (osteoarthritis) Medical History Other instability, left foot Medical History Generalized abdominal pain Medical History Unspecified dislocat ion of left toe(s), subsequent encounter Medical History Dyspnea on exertion Medical History Right Achilles tendinitis Medical History Libido, decreased Medical History LUQ pain Medical History Diverticulosis Surgical History hemorrhoidectomy 2012 Surgical History rectocele 2012 Surgical History HYSTERECTOMY AND LEFT OVARY REM ALESSIA 2003 Surgical History fundoplication 2003 Surgical History cholecystectomy 1995 Surgical History ovarian cyst 1990 Surgical History R SHOULDER TEAR REPAIR 2011 Surgical History R ELBOW RELEASE 2007 Surgical History L MINISCUS REPAIR Surgical History GALLBLADDER REMOVED Surgical History RIGHT ENDOSCOPIC PLANTAR FASCIO ORLANDO Surgical History RIGHT OPENING GASTROCNEMIUS REC ESSION Surgical History HARDWARE REMOVAL LEFT GREAT TOE Surgical History LEFT 1ST METATARSAL JOINT FUSION, REVISION, LEFT MER OSTEOTOMY, REVISION 2ND TOE- DR. LANDEROS 2018 Surgical History CARPAL TUNNEL 1989 Surgical History RIGHT RIB/LEFT SHOULDER MASS RE MOVED 2000 Surgical History LEFT GREAT TOE JOINT REPLACEMEN T 2012 Surgical History LEFT UNIOCFORD KNEE REPLACEMENT 2016 Surgical History COLONOSCOPY Surgical History TONSILLECTOMY AND ADENOIDECTOMY Hospitalization History mono Hospitalization History [facility] Other History general Narrative - Reported* Type Description Date Medical History Fibromyalgia Medical History Meningitis Medical History Liver mass Medical History Renal mass Medical History Hyperlipidemia, mixed Medical History Lyme disease Medical History Anxiety and depression Medical History Polyarthralgia Medical History Autoimmune hypothyroidism Medical History Nontoxic uninodular goiter Medical History Multinodular goiter Medical History Candidiasis Medical History Hypothyroidism Medical History Headache Medical History Hemorrhoids, external Medical History Prolapse of uterus Medical History Peptic ulcer disease Medical History Diabetic neuropathy Medical History Metatarsalgia of right foot Medical History Right foot pain Medical History Left foot pain Medical History Plantar fasciitis of right foot Medical History Type 2 diabetes divya itus with hyperglycemia, unspecified whether alf insulin use Medical History Fitzpatrick splints, right, initial enc ounter Medical History OAB (overactive bladder) Medical History Fatigue Medical History Hammer toe of left foot Medical History Abscess of left great toe Medical History Other acquired deformities of le ft foot Medical History Acute right flank pain Medical History 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, including poison iris, sumac, and oak Medical History Cellulitis of left toe Medical History Tick bite Medical History Neurogenic pain of left lower ex tremity Medical History Thumb pain, left Medical History Broken internal join t prosthesis, unspecified site, subsequent encounter Medical History Cervical pain Medical History Left lumbar pain Medical History Vitamin D deficiency Medical History Myalgia Medical History Unspecified internal derangement of left knee Medical History Diarrhea Medical History Bilateral primary osteoarthritis of knee Medical History SUSSY (generalized anxiety disorde r) Medical History OA (osteoarthritis) Medical History Other instability, left foot Medical History Generalized abdominal pain Medical History Unspecified dislocat ion of left toe(s), subsequent encounter Medical History Dyspnea on exertion Medical History Right Achilles tendinitis Medical History Libido, decreased Medical History LUQ pain Medical History Diverticulosis Surgical History hemorrhoidectomy 2012 Surgical History rectocele 2013 Surgical History HYSTERECTOMY AND LEFT OVARY REM ALESSIA 2003 Surgical History fundoplication 2003 Surgical History cholecystectomy 1995 Surgical History ovarian cyst 1990 Surgical History R SHOULDER TEAR REPAIR 2011 Surgical History R ELBOW RELEASE 2007 Surgical History L MINISCUS REPAIR Surgical History GALLBLADDER REMOVED Surgical History RIGHT ENDOSCOPIC PLANTAR FASCIO ORLANDO Surgical History RIGHT OPENING GASTROCNEMIUS REC ESSION Surgical History HARDWARE REMOVAL LEFT GREAT TOE Surgical History LEFT 1ST METATARSAL JOINT FUSION, REVISION, LEFT MER OSTEOTOMY, REVISION 2ND TOE- DR. LANDEROS 2018 Surgical History CARPAL TUNNEL 1989 Surgical History RIGHT RIB/LEFT SHOULDER MASS RE MOVED 2000 Surgical History LEFT GREAT TOE JOINT REPLACEMEN T 2012 Surgical History LEFT UNIOCFORD KNEE REPLACEMENT 2016 Surgical History COLONOSCOPY Surgical History TONSILLECTOMY AND ADENOIDECTOMY Surgical History Left knee 01/29/2023 Hospitalization History mono Hospitalization History menegitis [employer] Other Reason for referral (narrative)* Consultation (Routine) - Patient to Arrange Specialty Diagnoses / Procedures Referred By Westley finnegan Referred To Contact Physical Therapy Diagnoses Hx of total knee arthroplasty, left Radha Asif APRN-CNP [address] [place], [place] [id number] Referral ID Status Reason Start Date Expiration Date V isits Requested Visits Authorized [id number] Patient to Arrange 02/22/2023 03/18/2024 1 1 Scheduling Instructions . * Diagnostic X-Ray (Routine) - New Request Specialty Diagnoses / Procedures Referred By Westley finnegan Referred To Contact Diagnoses Hx of total knee arthroplasty, left Procedures XR KNEE LEFT 3 VIEWS Radha Asif APRN-CNP [address] [place] [address] Referral ID Status Reason Start Date Expiration Date V isits Requested Visits Authorized [id number] New Request 02/20/2023 03/16/2024 1 1 [facility] Summary Purpose Family History No Family History Records FoundNo Family History Records FoundNo Family History Records FoundNo Family History Records FoundNo Family History Records Found Advance Directives No Advanced Directives Records FoundLatest Code Status on File Code Status Date Activated Date Inactivated Comments Full Code 01/29/2023 4:58 PM Advance Directive Response Recorded Date/ Time Advance Directives No May 01, 2023 3:43pm Reason for Referral Reason 12/28/22 Normal co lonoscopy last summer - continues to have GI issues. Diagnosis 1 Abdominal cramping ( R10.9) Referral Organization [facility] Yammer reginaldo Referring Provider First Name Netta Referring Provider Last Name Lindsay Referring Provider Specialty [facility] [place] Referred Organization [facility] Referred Provider Ismael Early Referred Address [address] [place],[address] Referred Provider Specialty Gastroentero logy Referral Priority Routine Referral Appointment Date 2022-12-28 General Notes Snoali Cortez 10:30:02 AM >received today, notes locked and referral faxed Sonali Cortez 09/25/2022 10:48:23 AM >pt scheduled Reason 11/21/22 See phone note - this is related to a passport application examiner in [place] area testing labs. I do not have a copy of his labs. Diagnosis 1 Positive ADRI (antinu clear antibody) (R76.8) Referral Organization [facility] Yammer reginaldo Referring Provider First Name Netta Referring Provider Last Name Lindsay Referring Provider Specialty [facility] [place] Referred Organization [facility] Referred Provider Cara Leo Referred Address [address] [facility] [address] [place],[address] Referred Provider Specialty Rheumatology Referral Priority Routine Referral Appointment Date 2022-11-21 General Notes Sonali Cortez 09:22:28 AM >received today, notes attached and ins card attached. will call pt to see who she saw in [place] to get labs. Sonali Cortez 09/25/2022 10:37:57 AM >spoke with patient and was provided Dr. Balbuena phone number [phone] to request labs. told patient I would send referral once I had the results to send with referral, and provided her Dr. Dowling number to call in a few days. Sonali Cortez 09/26/2022 09:28:04 AM >received labs and faxed referral. Sonali Cortez 10/03/2022 10:01:58 AM >faxed first attempt letter Sonali Cortez 10/04/2022 12:01:37 PM >received fax back that pt has not been scheduled yet. will continue to follow up Sonali Cortez 10/10/2022 12:19:23 PM >faxed second attempt letter Sonali Cortez 10/10/2022 03:55:48 PM >received fax with appt date and time Specialty Diagnoses / Procedures Referred By Contac t Referred To Contact Diagnoses Pain in prosthetic joint, sequela Procedures XR BONE LENGTH STUDY Sagar Krause MD [address] [place] [address] Referral ID Status Reason Start Date Expiration Date V isits Requested Visits Authorized [id number] New Request 11/24/2022 12/19/2023 1 1 Specialty Diagnoses / Procedures Referred By Contac t Referred To Contact Diagnoses Pain in prosthetic joint, sequela Procedures XR KNEE LEFT 3 VIEWS Sagar Krause MD [address] [place] [address] Referral ID Status Reason Start Date Expiration Date V isits Requested Visits Authorized [id number] New Request 11/24/2022 12/19/2023 1 1 Specialty Diagnoses / Procedures Referred By Contac t Referred To Contact Diagnoses Post-op pain Procedures XR KNEE LEFT 3 VIEWS Sagar Krause MD [address] [place] [address] Referral ID Status Reason Start Date Expiration Date V isits Requested Visits Authorized [id number] New Request 08/06/2023 08/30/2024 1 1 Chief Complaint and Reason for Visit Chief Complaint Abdominal Cramping, EPI Chief Complaint Abdominal Cramping, EPI Low back pain Additional Source Comments INFORMATION SOURCE (unrecogn ized section and content) DATE CREATED AUTHOR 09/08/2021 [facility] DATE CREATED AUTHOR AUTHOR'S ORGANIZ ATION 01/23/2023 [facility] DATE CREATED AUTHOR AUTHOR'S ORGANIZ ATION 03/15/2023 [facility] DATE CREATED AUTHOR AUTHOR'S ORGANIZ ATION 06/26/2023 [facility] DATE CREATED AUTHOR AUTHOR'S ORGANIZ ATION 08/18/2023 [facility] REASON FOR VISIT (unrecogniz ed section and content) Specialty Diagnoses / Procedures Referred By Contac t Referred To Contact Diagnoses Pain in prosthetic joint, sequela Procedures XR BONE LENGTH STUDY Sagar Krause MD [address] [place] [address] Referral ID Status Reason Start Date Expiration Date V isits Requested Visits Authorized [id number] New Request 11/24/2022 12/19/2023 1 1 Reason Comments Pain Reason Comments Surgical Follow-up Specialty Diagnoses / Procedures Referred By Contac t Referred To Contact Diagnoses Post-op pain Procedures XR KNEE LEFT 3 VIEWS Sagar Krause MD [address] [place] [address] Referral ID Status Reason Start Date Expiration Date V isits Requested Visits Authorized [id number] New Request 08/06/2023 08/30/2024 1 1 Reason Comments Pain Care Teams (unrecognized sec tion and content) Library Services Dean Relationship Specialty Start Date End Date Netta Montoya MD [address] [place] [address] PCP - General Family Medicine 10/20/22 Library Services Dean Relationship Specialty Start Date End Date Netta oMntoya MD [address] [place] [address] PCP - General Family Medicine 10/20/22 Library Services Dean Relationship Specialty Start Date End Date Netta Montoya MD [address] [place] [phone] PCP - General Family Medicine 10/20/22 Team Status: Active Member Role Status Dates Netta Montoya MD Primary Care Provider Active Team Status: Inactive Member Role Status Dates Siva Ron MD Attending Provider Active Netta Montoya MD Primary Care Provider Active Team Status: Inactive Member Role Status Dates Netta Montoya MD Primary Care Provider Active Cara Leo MD Attending Provider Active Library Services Dean Relationship Specialty Start Date End Date Netta Montoya MD [address] [place] [address] PCP - General Family Medicine 10/20/22 FOR RECORDS PERTAINING TO PATIENTS WHO ARE OR HAVE BEEN ENROLLED IN A CHEMICAL DEPENDENCY/SUBSTANCEABUSE PROGRAM, SOME INFORMATION MAY BE OMITTED. This clinical summary was aggregated from multiple sources. Caution should be exercised in using it in the provision of clinical care. This summary normalizes information from multiple sources, and as a consequence, information in this document may materially change the coding, format and clinical context of patient data. In addition, data may be omitted in some cases. CLINICAL DECISIONS SHOULD BE BASED ON THE PRIMARY CLINICAL RECORDS. [facility] [employer] [facility]. provides no warranty or guarantee of the accuracy or completeness of information in this document.
[2023-09-21 08:39] LABS: Basophils Absolute Auto 0.1 10^3/uL (0.0-0.1); Basophils Percent Auto 0.6 % (0.2-2.0); Eosinophils Absolute Auto 0.2 10^3/uL (0.0-0.7); Eosinophils Percent Auto 2.3 % (0.9-7.0); Hematocrit 42.2 % (36.0-48.0); Hemoglobin 13.9 g/dL (12.0-16.0); Immature Granulocytes Abs Auto 0.02 10^3/uL (0.00-0.03); Immature Granulocytes Pct Auto 0.3 % (0.0-0.5); Lymphocytes Absolute Auto 2.5 10^3/uL (1.2-3.8); Lymphocytes Percent Auto 32.9 % (20.5-60.0); Mean Corpuscular HGB Conc 32.9 g/dL (29.9-35.2); Mean Corpuscular Volume 90.9 fL (81.0-99.0); Mean Platelet Volume 9.3 fL (9.5-13.5); Monocytes Absolute Auto 0.4 10^3/uL (0.3-0.8); Monocytes Percent Auto 5.1 % (1.7-12.0); Neutrophils Absolute Auto 4.5 10^3/uL (1.4-6.5); Neutrophils Percent Auto 58.8 % (43.0-75.0); Platelet Count 300 10^3/uL (150-450); Red Blood Count 4.64 10^6/uL (4.20-5.40); Red Cell Distribution Width 12.6 % (11.0-15.0); White Blood Count 7.7 10^3/uL (4.0-11.0)
[2023-09-21 09:39] LABS: Alanine Aminotransferase 22 U/L (14-59); Albumin Globulin Ratio 1.1; Albumin Level 3.7 g/dL (3.4-5.0); Alkaline Phosphatase 85 U/L (46-116); Anion Gap 15.1; Aspartate Amino Transferase 18 U/L (15-37); Bilirubin Total 0.5 mg/dL (0.2-1.0); Calcium 9.2 mg/dL (8.5-10.1); Carbon Dioxide 26.9 mmol/L (21.0-32.0); Chloride 101 mmol/L (98-107); Estimated GFR (African America >60 (>=60); Estimated GFR (Non-African Ame >60 (>=60); Globulin 3.4 g/dL; Glucose 225 mg/dL (74-106); Sodium 139 mmol/L (136-145); Total Protein 7.1 g/dL (6.4-8.2)
== END 2023-09-21 08:19 | disposition home or self-care (01) ==
LOC: LAB 08:19
PROVIDERS: PCP Family Medicine; Visit Provider Registered Nurse
DX: M15.0 Primary generalized (osteo)arthritis (principal); Z79.899 Other long term (current) drug therapy
CPT/HCPCS: 36415; 80053; 85025

== ENCOUNTER 2024-01-28 11:10 | Outpatient (OUT) | payer MEDICARE, SELFPAY ==
--- NOTE | 2024-01-28 11:15 | XR_ITS ---
The [address] [address] Patient Name: EMILY MACIAS MRN: [id number] date: 1960 Sex: F Assigned Patient Location: LAB Current Patient Location: Accession/Order Number: [id number] Exam Date: 01/28/2024 11:20 Report Date: 01/29/2024 06:58 At the request of: SUZANNE PHILLIPS Procedure: XR chest 2V EXAMINATION: XR chest 2V HISTORY: Bronchitis J40 COMPARISON: No relevant comparison available. FINDINGS: LUNGS: No significant pulmonary parenchymal abnormalities. VASCULATURE: No increased pulmonary vasculature. PLEURA: No pneumothorax, effusion, or pleural thickening. CARDIAC: No cardiomegaly or cardiac silhouette abnormality. MEDIASTINUM: No visible mass or adenopathy. BONES: No fracture or visible bone lesion. OTHER: Negative. XR/XR chest 2V IMPRESSION: 1. No acute cardiopulmonary process. Electronically authenticated by: PELON ALEXANDRE Date: 01/29/2024 06:58
== END 2024-01-28 11:11 | disposition home or self-care (01) ==
LOC: LAB 11:11
PROVIDERS: PCP Family Medicine; Visit Provider Nurse Practitioner Family
DX: J40 Bronchitis, not specified as acute or chronic (principal)
CPT/HCPCS: 71046

== ENCOUNTER 2024-02-13 09:37 | Outpatient (OUT) | payer MEDICARE, SELFPAY ==
[2024-02-13 10:21] LABS: Basophils Percent Auto 0.4 % (0.2-2.0); Eosinophils Absolute Auto 0.3 10^3/uL (0.0-0.7); Eosinophils Percent Auto 4.3 % (0.9-7.0); Hematocrit 37.1 % (36.0-48.0); Hemoglobin 12.3 g/dL (12.0-16.0); Immature Granulocytes Abs Auto 0.01 10^3/uL (0.00-0.03); Immature Granulocytes Pct Auto 0.1 % (0.0-0.5); Lymphocytes Absolute Auto 2.5 10^3/uL (1.2-3.8); Mean Corpuscular HGB Conc 33.2 g/dL (29.9-35.2); Mean Corpuscular Hemoglobin 29.3 pg (26.7-34.0); Mean Corpuscular Volume 88.3 fL (81.0-99.0); Mean Platelet Volume 9.6 fL (9.5-13.5); Monocytes Absolute Auto 0.4 10^3/uL (0.3-0.8); Monocytes Percent Auto 6.5 % (1.7-12.0); Neutrophils Absolute Auto 3.5 10^3/uL (1.4-6.5); Neutrophils Percent Auto 51.7 % (43.0-75.0); Platelet Count 322 10^3/uL (150-450); Red Cell Distribution Width 12.6 % (11.0-15.0); White Blood Count 6.8 10^3/uL (4.0-11.0)
[2024-02-13 10:23] LABS: Estimated Average Glucose 131 mg/dL; Glycohemoglobin A1C 6.2 % (4.5-6.2)
[2024-02-13 10:40] LABS: Free T4 1.68 ng/dL (0.76-1.46)
[2024-02-13 10:49] LABS: Alanine Aminotransferase 18 U/L (14-59); Albumin Globulin Ratio 0.8; Albumin Level 3.2 g/dL (3.4-5.0); Alkaline Phosphatase 93 U/L (46-116); Anion Gap 11.5; Aspartate Amino Transferase 12 U/L (15-37); BUN Creatinine Ratio 26.8; Bilirubin Total 0.5 mg/dL (0.2-1.0); Calcium 9.7 mg/dL (8.5-10.1); Carbon Dioxide 29.8 mmol/L (21.0-32.0); Chloride 104 mmol/L (98-107); Chol HDL Ratio 3.8; Cholesterol 153 mg/dL (<=200); Estimated GFR (African America >60 (>=60); Estimated GFR (Non-African Ame >60 (>=60); Free T3 3.57 pg/mL (2.18-3.98); Glucose 108 mg/dL (74-106); HDL Cholesterol 40 mg/dL (40-60); LDL Cholesterol Calculated 92.6 mg/dL; Potassium 4.3 mmol/L (3.5-5.1); Sodium 141 mmol/L (136-145); Thyroid Stimulating Hormone 0.018 uIU/mL (0.358-3.740); Total Protein 7.2 g/dL (6.4-8.2); Triglycerides 102 mg/dL (<=150); VLDL CHOLESTEROL 20.4 mg/dL
== END 2024-02-13 09:38 | disposition home or self-care (01) ==
LOC: LAB 09:37
PROVIDERS: PCP Family Medicine; Visit Provider Nurse Practitioner Family
DX: E11.65 Type 2 diabetes mellitus with hyperglycemia (principal); E03.9 Hypothyroidism, unspecified; Z79.4 Long term (current) use of insulin
CPT/HCPCS: 36415; 80053; 80061; 83036; 84439; 84443; 84481; 85025

== ENCOUNTER 2024-02-22 07:47 | Outpatient (OUT) | payer MEDICARE, SELFPAY ==
--- NOTE | 2024-02-22 07:49 | MR_ITS ---
The [address] [address] Patient Name: EMILY MACIAS MRN: [id number] date: 1960 Sex: F Assigned Patient Location: MRI Current Patient Location: Accession/Order Number: [id number] Exam Date: 02/22/2024 07:55 Report Date: 02/25/2024 14:11 At the request of: NON-STAFF PHYSICIAN Procedure: MR foot LT wo con HISTORY: Pain in the left fourth and fifth toes radiating into the metatarsals. Metatarsalgia. MR foot LT wo con: 02/22/2024 7:55 AM EDT COMPARISON: Radiographs of bilateral ankles and feet 12/20/2023. TECHNIQUE: Multiplanar, multisequence MRI images of the left foot were obtained without contrast. FINDINGS: The Lisfranc ligament complex appears intact. There are susceptibility artifacts emanating from hardware related to prior surgery on the first toe and first metatarsal and this artifact precludes evaluation of the majority of this region. There is also susceptibility artifact emanating from a screw in the second metatarsal head/neck region which slightly degrades evaluation of this region. The bone marrow signal intensity appears age appropriate. There is an os trigonum. A large plantar calcaneal enthesophyte again seen. There appear to be moderate degenerative changes of the first, second and third tarsometatarsal joints. There is mild subchondral cystic change adjacent to the third tarsometatarsal joint. No bone marrow edema-like signal is seen within the metatarsal shafts. No significant tendinopathy or tenosynovitis is seen. No Scott's neuroma is identified. No muscle edema. No soft tissue swelling. MR/MR foot LT wo con IMPRESSION: 1. No MRI evidence of a stress reaction or stress fracture is seen of the metatarsals. 2. Moderate osteoarthritis of the first through third tarsometatarsal joints. Electronically authenticated by: CHAZ PONCE Date: 02/25/2024 14:11
--- OUTSIDE RECORDS SUMMARY | 2024-02-22 07:52 | XMS_ITS | CCD ---
Author Organization [facility] Care Team Providers Care Artist'S Model Name Role Phone Netta Montoya Unavailable Siva Ron Unavailable MISC, DR BECERRA Admitting Unavailable MISC, DR BECERRA Attending Unavailable LINDSAY, DR NETTA Conti Primary Care Unavailable MISC, DR BECERRA Consulting Unavailable CIELO GARCIA Consulting Unavailable TONY DICKINSON Consulting Unavailable LINDSAY, DR NETTA Conti Primary Care Unavailable JANETT BALBUENA Attending Unavailable JANETT BALBUENA Admitting Unavailable JANETT BALBUENA Consulting Unavailable LEONA .SABINA Admitting Unavailable SABINA IBARRA Attending Unavailable LINDSAY, DR NETTA Conti Primary Care Unavailable FELIPA, DR MARROQUIN Consulting Unavailable LINDSAY, DR NETTA Conti Primary Care Unavailable FELIPA, DR MARROQUIN Attending Unavailable FELIPA, DR MARROQUIN Admitting Unavailable LINDSAY, DR NETTA Conti Admitting Unavailable LINDSAY, DR NETTA Conti Attending Unavailable LINDSAY, DR NETTA Conti Primary Care Unavailable MONTOYA, DR NETTA Conti Consulting Unavailable REESE ., DR PAWEL Connors Admitting Unavailable REESE ., DR PAWEL Connors Attending Unavailable LINDSAY, DR NETTA Conti Primary Care Unavailable SABINA IBARRA Consulting Unavailable MARY ANN ., DR PAWEL Connors Admitting Unavailable REESE ., DR PAWEL Connors Attending Unavailable MONTOAY, DR NETTA Conti Primary Care Unavailable REESE ., DR PAWEL Connors Consulting Unavailable LINDSAY, DR NETTA Conti Admitting Unavailable MONTOYA, DR NETTA Conti Attending Unavailable LINDSAY, DR [...] MISC, DR BECERRA Admitting Unavailable BRI BERGER Consulting Unavailable MONTOYA, DR NETTA Conti Primary [...] KENDRA Attending Unavailable MCKINLEY, KENDRA Admitting Unavailable MCKINLEY, KENDRA Consulting Unavailable MISC, DR BECERRA Admitting Unavailable MISC, DR BECERRA Attending Unavailable MONTOYA, DR NETTA Conti Primary Care Unavailable MISC, DR BECERRA Consulting Unavailable HIGHLANDER, BASILIO Goodrich Admitting Unavailable HIGHLANDER, BASILIO Goodrich Attending Unavailable MONTOYA, DR NETTA Conti Primary Care Unavailable ZIEBER, DR PELON Briceno Consulting Unavailable HIGHLANDER, BASILIO Goodrich Consulting Unavailable ESHA, JANETT Consulting Unavailable MONTOYA, DR NETTA Conti Primary Care Unavailable JANETT BALBUENA Attending Unavailable ESHA, JANETT Admitting Unavailable ESHA, JANETT Consulting Unavailable MONTOYA, DR NETTA Conti Primary Care Unavailable ESHAJANETT Attending Unavailable ESHA, JANETT Admitting Unavailable Montoya Netta LEVIN Primary Care Provider [phone] MD Siva Ron Attending Provider MD Netta Montoya Primary Care Provider [phone] MD Cara Leo Attending Provider Siva Ron Admitting Unavailroxana e Netta Montoya Primary Care Unavailable Siva Ron Attending UnavailaCra Mancilla Attending Unavailable Cara Leo Admlicha Unavailable Netta Montoya Primary Care Unavailable NETTA MONTOYA Primary Care Unavailable SAGAR KRAUSE Referring Unavailable SAGAR KRAUSE Admitting Unavailable SAGAR KRAUSE Attending Unavailable NETTA MONTOYA Primary Care Unavailable RADHA IRVIN Attending Unavailable RADHA IRVIN Referring Unavailable SELF, SELF Referring Unavailable RADHA IRVIN Attending Unavailable OMNTOYA, NETTA Primary Care Unavailable JIMI SAGAR Referring Unavailable JIMI, SAGAR Attending Unavailable MONTOYA, NETTA Primary Care Unavailable FOSTER, SAGAR Referring Unavailable MONTOYA, NETTA Primary Care Unavailable FOSTER, SAGAR Attending Unavailable MONTOYA, NETTA Primary Care Unavailable BRANDEE, RADHA Attending Unavailable BRANDEE, RADHA Referring Unavailable MONTOYA, NETTA Primary Care Unavailable BRANDEE, RADHA Attending Unavailable BRANDEE, RADHA Referring Unavailable FOSTER, SAGAR Attending Unavailable MONTOYA, NETTA Primary Care Unavailable JIMI, SAGAR Referring Unavailable Esha TAYLOR, Janett Govea Attending Unavailab Gopal LEVIN, [facility] Lana Montoya MD, [facility] Unava ilable Esha COHENM, Janett Govea Attending Unavailab charbel Montoya MD, [facility] Unava ilable Esha COHENM, Janett Govea Attending Unavailab charbel Balbuena DPM, Janett Govea Attending Unavailab Gopal LEVIN, [facility] Unava mila Montoya MD, [facility] Unava ilable Esha TAYLOR, Janett Govea Attending Unavailab Gopal LEVIN, [facility] Unava Ricardo Blackwell MD Attending Unavailable BRANDEE, RADHA Referring Unavailable MONTOYA, NETTA E Primary Care Unavailable BRANDEE, RADHA Referring Unavailable LINDSAY NETTA E Primary Care Unavailable Allergies Allergy Classification Reported Allergen(s) Allergy Type Date of Onset Reaction(s) Facility milnacipran (1 source) milnacipran; Translations: [MILNACIPRAN] Drug Allergy 02-10-20 [facility] Opioid Agonists (1 source) Morphine; Translations: [MORPHINE] Drug Allergy 11-19-19 21 [facility] tiZANidine (1 source) tiZANidine; Translations: [TIZANIDINE] Drug Allergy 02-10-20 17 [facility] (20 sources) milnacipran; Translations: [Savella] Drug Allergy 09-02-20 13 SEVERE HEADACHES [facility] Repository (18 sources) Morphine Drug Allergy Unknown [facility] Other (20 sources) tiZANidine; Translations: [Zanaflex] Drug Allergy 09-02-20 13 Hallucinations [facility] Repository (9 sources) milnacipran Drug Allergy 03 [facility] (9 sources) tiZANidine Drug Allergy 12-01-19 Hallucination [facility] (2 sources) Morphine Drug Allergy [facility] Repository (14 sources) Vancomycin Drug Allergy 01-30-20 Hives [facility] (7 sources) Allergies Reconciled Propensity to adverse reactions Unknown Neogrowth [facility] [place] Other (7 sources) Savella *PSYCHOTHERAPEU TIC AND NEUROLOGICAL AGENTS Propensity to adverse reactions Unknown [facility] Other (1 source) milnacipran Drug Allergy 05-09-20 [facility] Repository (1 source) tiZANidine Drug Allergy 05-09-20 [facility] Repository (1 source) Vancomycin Drug Allergy 05-09-20 [facility] Repository Medications Current Medications Medication Drug Class(es) [...] WEEKLY Active acetaminophen 325 mg oral tablet (5 sources) Start: 01-29-2023 take 2 tablets by mouth every four hours as needed Acetaminophen 325 MG tablet Take 2 tablets by mouth every 4 hours as needed for Mild Pain. 50 tablet 1 01/29/2023 Active acetaminophen 325 mg / HYDROcodone bitartrate 5 mg oral tablet (3 sources) Opioid Agonist Start: 02-12-2023 take 1 tablet by mouth once daily as needed hydroCODone-acetami nophen 5-325 MG tablet Indications: Acute postoperative pain of knee Take 1-2 tablets by mouth every 6 hours as needed for Severe Pain for up to 7 days. Do not take over 4000mg acetaminophen daily. 20 tablet 02/12/2023 Active alendronic acid 70 mg oral tablet (5 sources) Bisphosphonate take 1 tablet by mouth once daily Fosamax 70 MG 1 tablet 30 minutes before the first food, beverage or medicine of the day with plain water Orally Active amylase 262752 unt / lipase 56980 unt / protease [id number] unt delayed release oral capsule (9 sources) Start: 01-25-2023 take 2 capsules by mouth three times daily at mealtime, then take 1 capsule by mouth four times daily Creon [id number] UNIT 2 capsules three times a day with meals and 1 capsule with a snack Orally four times a day for 30 days PLEASE CHECK ALLERGIES January, Active ascorbic acid 1000 mg oral tablet (6 sources) Vitamin C take 1 tablet by mouth every twelve hours Vitamin C 1000 MG 1 tablet Orally TWICE A DAY Active take 1 tablet by mouth once alannah y Ascorbic Acid 1000 MG tablet Take 1 tablet by mouth daily. 0 Active aspirin 81 mg delayed release oral tablet (5 sources) Platelet Aggregation Inhibitor, Nonsteroidal Anti-inflammatory Drug Start: 01-29-2023 take 1 tablet by mouth twice daily Aspirin [address] tablet Take 1 tablet by mouth 2 times daily. This medication is for blood clot prevention. 60 tablet 01/29/2023 Active atropine sulfate 0.025 mg / diphenoxylate hydrochloride 2.5 mg oral tablet (5 sources) Anticholinergic, Cholinergic Muscarinic Antagonist, Antidiarrheal take 1 tablet by mouth every six hours Lomotil 2.5-0.025 MG 1 tablet as needed Orally Four times a day Active B Complex Vitamins (B COMPLEX 1 PO) (7 sources) B Complex Vitamins (B COMPLEX 1 PO) Take by mouth daily. Active B Complex Vitami ns (B COMPLEX 1 PO) Take by mouth daily. 0 Active B Complex Vitami ns (B COMPLEX 1 PO) Take by mouth. 0 Active baclofen 10 mg oral tablet (10 sources) gamma-Aminobutyric Acid-ergic Agonist baclofen 10 MG table t Take 2 tablets by mouth as needed. Active take 1 tablet by william th twice daily at mealtime as needed Baclofen 20 MG 1 tablet Administer witho ut regards to meals as needed Orally Twice a day Active biotin 10 mg oral tablet (2 sources) Biotin 47196 MCG tablet Take by mouth. 0 Active Calcium (15 sources) Phosphate Binder, Calcium Calciu m + D Active Calcium Carb-Cholecalciferol (CALCIUM + D3 PO) (5 sources) Calcium Carb-Cholecalciferol (CALCIUM + D3 PO) Take by mouth daily. Active Calcium Carb-Cho lecalciferol (CALCIUM + D3 PO) Take by mouth daily. 0 Active celecoxib 200 mg oral capsule (12 sources) Nonsteroidal Anti-inflammatory Drug Start: 03-23-2023 take 1 capsule by mouth twice daily Celecoxib 200 MG capsule Take 1 capsule by mouth 2 times daily. 60 capsule 03/23/2023 Active Start: 01-29-2023 End: 03-12-2023 take 1 capsule by mouth twice daily Celecoxib 200 MG capsule Take 1 capsule by mouth 2 times daily. 84 capsule 0 01/29/2023 03/12/2023 Active take 1 capsule by mo uth every twenty-four hours CeleBREX 200 MG 1 capsule with food Orally Once a day Active cephalexin 500 mg oral capsule (5 sources) Cephalosporin Antibacterial take 1 capsule by mouth every six hours Cephalexin 500 MG 1 capsule Orally Four times a day Active cholecalciferol 0.25 mg oral capsule (8 sources) Vitamin D Cholecalciferol 250 MCG (95819 UT) capsule capsule Take by mouth daily. Active Vitamin D-3 25 M CG (1000 UT) 1/2 DAILY IN SUMMER Orally Once a day Active Cholecalciferol 250 MCG (40013 UT) capsule capsule Take by mouth. 0 Active cyclobenzaprine hydrochloride 5 mg oral tablet (2 sources) Muscle Relaxant Start: 08-13-2023 take 1 tablet by mouth every twenty-four hours Cyclobenzaprine HCl 5 MG 1 tablet at bedtime as needed Orally Once a day for 30 day(s) Aug, Active dapagliflozin 10 mg oral tablet (8 sources) Sodium-Glucose Cotransporter 2 Inhibitor Start: 01-11-2023 take 1 tablet by mouth every twenty-four hours Farxiga 10 MG 1 tablet Orally Once a day for 30 days samples January, Active take 1 tablet by mouth once alannah y dapagliflozin 5 MG tablet Take 1 tablet by mouth daily. Active 1 ml dexamethasone phosphate 4 mg/ml injection (2 sources) Corticosteroid Start: 12-21-2023 dexAMETHasone 4 MG/ML Solution injection Indications: Pain in prosthetic joint, subsequent encounter 1 mL by Other route As directed for 18 doses. (1 cc 3 x a week at physical therapy via iontophoresis) for up to 18 doses. 30 mL 12/21/2023 Active diclofenac sodium 75 mg delayed release [...] Active docusate sodium 100 mg oral capsule (7 sources) Start: 01-29-2023 take 1 capsule by mouth twice daily Docusate 100 MG capsule Take 1 capsule by mouth 2 times daily. 60 capsule 01/29/2023 Active take 1 capsule by mouth twice da nelson Docusate (Stool Softener) 100 MG capsule Take 1 capsule by mouth 2 times daily. 0 Active estrogens, conjugated (group home) 0.625 mg/ml vaginal cream (5 sources) Estrogen Premarin 0.625 M G/GM as directed Vaginal Active eszopiclone 3 mg oral tablet (17 sources) take 1 tablet by mouth every [...] / vitamin b12 1 mg sublingual tablet (7 sources) Vitamin B12 Cobalamin Combin ations (B-12) 100-[address] under tongue daily. Active Cobalamin Combin ations (B-12) 100-5000 MCG [...] Take 1 tablet by mouth daily. AM 10/02/2022 Active take 1 tablet by william every twenty-four hours Levothyroxine Sodium 112 MCG 1 tablet Orally Once a day for 90 days Active lifitegrast 50 mg/ml ophthalmic solution (16 sources) Lymphocyte Function-Associated Antigen-1 Antagonist Start: 11-06-2022 Xiidra 5 % Solution ophthalmic solution Place in both eyes 2 times daily. 11/06/2022 Active take 1 drop(s) into the [...] 5 mg by mouth. 0 Active Magnesium (18 sources) Magnesium Active magnesium oxide 500 mg oral capsule (7 sources) Magnesium 500 MG capsule Take by mouth daily. Active melatonin 5 mg oral capsule (7 sources) Melatonin 5 MG capsule Take by mouth at bedtime. Active mesalamine 1200 mg delayed release oral tablet (17 sources) Aminosalicylate Start: 01-18-2023 take 4 tablets by mouth every twenty-four hours Mesalamine 1.2 GM 4 tablets Orally Once a day for 30 days January, Active Start: 01-18-2023 take 4 tablets by [facility] every twenty-four hours Mesalamine 1.2 GM 4 tablets Orally Once a day for 30 days January, Active Start: 01-01-2023 take 2 tablets by mouth once d aily Mesalamine 1.[address] tablet Take 2 tablets by mouth daily. 01/01/2023 Active take 2 tablets by [facility] every twenty-four hours Mesalamine 1.2 GM 2 tablets with a meal Orally Once a day for 30 days Active metFORMIN hydrochloride 1000 mg oral tablet (20 sources) Biguanide Start: 08-29-2022 metFORMIN 1000 MG tablet 2 times daily. 08/29/2022 Active methocarbamol 750 mg oral tablet (15 sources) Muscle Relaxant take 2 tablets by mouth at bedtime Methocarbamol 750 MG 2 tablets Orally at HS Active METHOCARBAMOL PO Take by mouth. 0 Active methylPREDNISolone 4 mg oral tablet (4 sources) Corticosteroid Start: 08-09-2023 methylPREDNIsolone 4 MG Tab Therapy Pack tablet Take 1 tablet by mouth As directed. follow package directions 21 tablet 08/09/2023 Active Multi For Her (15 sources) Multi For Her Ac tive Multiple Vitamins-Minerals (One Daily Calcium/Iron) tablet (7 sources) take 1 tablet by mouth once daily Multiple Vitamins-Minerals (One Daily Calcium/Iron) tablet Take 1 tablet by mouth daily. Active take 1 tablet by mouth once alannah y Multiple Vitamins-Minerals (One Daily Calcium/Iron) tablet Take 1 tablet by mouth daily. 0 Active Multivitamin preparation (5 sources) Multivitamin Act ag Multivitamin/Iron (5 sources) Multivitamin/Iro n Active nabumetone 750 mg oral tablet (2 sources) Nonsteroidal Anti-inflammatory Drug Start: 11-28-2022 nabumetone 750 MG tablet naloxone hydrochloride 40 mg/ml nasal spray (3 sources) Opioid Antagonist Start: 01-29-2023 End: 01-29-2023 naloxone 4 MG/0.1ML 1 spray by Nasal route once for 1 dose. Sargeant into the nose as directed. Call 911. If no response in 2 minutes use a new nasal spray in other nostril. Repeat until help arrives. 1 Each 01/29/2023 Active Greene 3 (5 sources) Greene 3 Active omeprazole 20 mg delayed release oral tablet (20 sources) Proton Pump Inhibitor Omeprazole [address] tablet Take by mouth daily. Active take 1 capsule by mouth once jomar ly Omeprazole 20 MG 1 capsule 30 minutes before morning meal Orally Once a day Active take 1 capsule by mouth once jomar ly Omeprazole 10 MG 1 capsule 30 minutes before morning meal Orally Once a day Active OneTouch Ultra 2 w/Device (18 sources) OneTouch Ultra 2 w/Device as directed Active oxybutynin chloride 5 mg oral tablet (5 sources) Cholinergic Muscarinic Antagonist take 1 tablet by mouth three times daily as needed Oxybutynin Chloride 5 MG 1 tablet Orally THREE TIMES A DAY NEEDED Active oxyCODONE hydrochloride 5 mg oral tablet (3 sources) Opioid Agonist Start: 02-07-20 23 take 1-2 tablets by mouth every four to six hours as needed for pain oxyCODONE 5 MG tablet Indications: Acute postoperative pain of knee Take 1-2 tabs po q 4-6 hours prn pain. Wean as tolerated. 20 tablet 02/06/2023 Active Ozempic (0.25 or 0.5 MG/DOSE) 2 MG/1.5ML (2 sources) Ozempic (0.25 or 0.5 MG/DOSE) 2 MG/1.5ML as directed Subcutaneous Active Pancrelipase, Xau-Ykqo-Mtat, (CREON PO) (5 sources) take 1 tablet by mouth once daily Pancrelipase, Poe-Nsel-Elzd, (CREON PO) Take 36,000 Units by mouth. 2 tablet by mouth with each meal, 1 tablet by mouth with 1 snack daily Active take 1 tablet by mouth once alannah y Pancrelipase, Rbe-Injr-Ewim, (CREON PO) Take 36,000 Units by mouth. 2 tablet by mouth with each meal, 1 tablet by mouth with 1 snack daily 0 Active probiotic (2 sources) probiotic Active Probiotic Product (PROBIOTIC DAILY PO) (7 sources) Probiotic Produc t (PROBIOTIC DAILY PO) Take by mouth. Active Probiotic Produc t (PROBIOTIC DAILY PO) Take by mouth. 0 Active Propylene glycol (5 sources) Propylene Glycol (SYSTANE COMPLETE OP) Apply to eye as needed. Active Propylene Glycol (SYSTANE COMPLETE OP) Apply to eye as needed. 0 Active Robaxin-750 (5 sources) Robaxin-750 Acti ve Selenium (5 sources) Selenium Active SITagliptin 100 mg oral tablet (5 sources) Dipeptidyl Peptidase 4 Inhibitor Start: 3 take 1 tablet by mouth every twenty-four hours Januvia 100 MG 1 tablet Orally Once a day for 90 days Mar, Active Specialty Vitamins Products (ICAPS lutein & zeaxanthin) Tab DR (7 sources) take 1 tablet by mouth once daily Specialty Vitamins Products (ICAPS lutein & zeaxanthin) Tab DR Take 1 tablet by mouth daily. Active take 1 tablet by mouth once alannah y Specialty Vitamins Products (ICAPS lutein & zeaxanthin) Tab DR Take 1 tablet by mouth daily. 0 Active take 1 tablet by mouth twice jomar ly Specialty Vitamins Products (ICAPS lutein & zeaxanthin) Tab DR Take 1 tablet by mouth 2 times daily. 0 Active Stool Softener (15 sources) Stool Softener A ctive thyroid (SENIOR CARE) (5 sources) Nature-Throid Ac tive traMADol hydrochloride 50 mg oral tablet (18 sources) Opioid Agonist Start: 02-16-2023 take 1 tablet by mouth every six hours as needed for pain traMADol 50 MG tablet Indications: Acute postoperative pain of knee 1 tabs po q 6 hr PRN pain 20 tablet 02/16/2023 Active take 1 tablet by mouth [...] Vitamin A 2400 MCG (8000 UT) tablet (7 sources) Vitamin A 2400 M CG (8000 UT) tablet Take by mouth daily. Active Vitamin A 2400 M CG (8000 UT) tablet Take by mouth daily. 0 Active Vitamin A 2400 M CG (8000 UT) tablet Take by mouth. 0 Active vitamin B12 (18 sources) Vitamin B12 Vitamin B12 Acti ve vitamin b6 100 mg oral table t (7 sources) Pyridoxine HCl ( B-6) 100 MG tablet Take by mouth daily. Active Pyridoxine HCl ( B-6) 100 MG tablet Take by mouth. 0 Active Vitamin C 1000 MG (14 sources) take 1 tablet by william twice daily Vitamin C 1000 MG 1 tablet Orally TWICE A DAY Active Vitamin D-3 25 MCG (1000 UT) (17 sources) Vitamin D-3 25 M CG (1000 UT) 1/2 DAILY IN SUMMER Orally Once a day Active Zinc (20 sources) Zinc 50 MG capsu le Take by mouth daily. Active Zinc 50 MG capsu le Take [...] mg/ml prefilled syringe (2 sources) Corticosteroid Start: End: triamcinolone (KENALOG-40) injection 1 mL Problems Active Problems Problem Classification Problem Date Documented Da te Episodic/Chronic Abdominal pain (20 sources) Abdominal pain; Translations: [Unspecified abdominal pain] Onset: 03-28-2022 Episodic Acquired foot deformities (20 sources) Acquired hammer toe of left foot; Translations: [Other hammer toe(s) (acquired), left foot] Chronic Acquired foot deformities (18 sources) Acquired deformity of left foot; Translations: [Other acquired deformities of left foot] Episodic Allergic reactions (20 sources) Contact dermatitis due to plants; Translations: [Unspecified contact dermatitis due to plants, except food] Episodic Anxiety disorders (20 sources) Generalized anxiety disorder; Translations: [Generalized anxiety disorder] Chronic Complication of device; implant or graft (20 sources) Broken internal joint prosthesis, unspecified site, subsequent encounter; Translations: [Joint pain] Episodic Diabetes mellitus with complications (20 sources) Hyperglycemia due to type 2 diabetes mellitus; Translations: [Type 2 diabetes mellitus with hyperglycemia] Onset: 07-11-2022 Chronic Diabetes mellitus without complication (14 sources) Type 2 diabetes mellitus without complication; [...] Onset: 02-02-2022 Episodic Gastroduodenal ulcer (except hemorrhage) (18 sources) Peptic ulcer; Translations: [Peptic ulcer, site unspecified, unspecified as acute or chronic, without hemorrhage or perforation] Chronic Headache; including migraine (7 sources) Migraine with aura; Translations: [Migraine with aura, not intractable, without status migrainosus] Chronic Headache; including migraine (18 sources) Headache; Translations: [Headache] Episodic Heart valve disorders (5 sources) Aortic valve disorder; 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 [...] 01-30-2023 Chronic Joint disorders and dislocations; trauma-related (7 sources) Derangement of knee; Translations: [Unspecified internal derangement of right knee] Chronic Joint disorders and dislocations; trauma-related (18 sources) Dislocation of toe joint; Translations: [Unspecified dislocation of left toe(s), subsequent encounter] Episodic Malaise and fatigue (20 sources) Fatigue; Translations: [Other fatigue] Onset: 02-28-2022 Episodic Meningitis (except that caused by tuberculosis or sexually transmitted disease) (18 sources) Meningitis; Translations: [Meningitis, unspecified] Episodic Mood disorders (7 sources) Dysthymia; Translations: [Dysthymic disorder] Onset: 08-07-2018 Chronic Mycoses (20 sources) Candidiasis; Translations: [Candidiasis, unspecified] Onset: 01-22-2013 Episodic Nutritional deficiencies (20 sources) Vitamin D deficiency; Translations: [Vitamin D deficiency, unspecified] Chronic Osteoarthritis (20 sources) Osteoarthritis; Translations: [Unspecified osteoarthritis, unspecified site] Onset: 08-27-2022 Chronic Other acquired deformities (7 sources) 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; Translations: [Contracture, right ankle] Chronic Other aftercare (1 source) Other senior living (current) drug therapy; Translations: [OTH PENITENTIARY CURRENT DRUG THERAPY] Onset: 12-02-2022 Episodic Other connective tissue disease (2 sources) History of left total knee replacement; Translations: [Presence of left artificial knee joint] 02-20-2023 Chronic Other connective tissue disease (3 sources) Presence of left artificial knee joint; Translations: [Presence of left artificial knee joint] Onset: 12-26-2023 Chronic Other connective tissue disease (20 sources) Muscle pain; Translations: [Myalgia, unspecified site] Episodic Other connective tissue disease (20 sources) Metatarsalgia of right foot; Translations: [Metatarsalgia, right foot] Episodic Other connective tissue disease (18 sources) Fibromyalgia; Translations: [Fibromyalgia] Episodic Other connective tissue disease (20 sources) Pain in left foot; Translations: [Pain in left foot] Episodic Other connective tissue disease (20 sources) Pain in limb; Translations: [Pain in left finger(s)] Episodic Other connective tissue disease (18 sources) Right achilles tendonitis; Translations: [Achilles tendinitis, right leg] Episodic Other connective tissue disease (20 sources) Pain in right foot; Translations: [Pain in right foot] Onset: 07-05-2022 Episodic Other connective tissue disease (18 sources) Plantar fasciitis of right foot; Translations: [Plantar fascial fibromatosis] Episodic Other connective tissue disease (3 sources) Fibromyalgia; Translations: [FIBROMYALGIA] Onset: 12-02-2022 Episodic Other connective tissue disease (7 sources) Metatarsalgia of left foot; Translations: [Metatarsalgia, left foot] Episodic Other connective tissue disease (7 sources) Pain in left lower limb; Translations: [Pain in left leg] Episodic Other connective tissue disease (7 sources) Achilles bursitis; Translations: [Achilles tendinitis, right leg] Episodic Other connective tissue disease (7 sources) Plantar fascial fibromatosis; Translations: [Plantar fascial fibromatosis] Episodic Other connective tissue disease (1 source) Trochanteric bursitis, right hip Episodic Other connective tissue disease (1 source) Other specified enthesopathies of left lower limb, excluding foot; Translations: [Other specified enthesopathies of left lower limb, excluding foot] Onset: 12-26-2023 Episodic Other diseases of bladder and urethra (18 sources) Bladder muscle dysfunction - overactive; Translations: [Overactive bladder] Chronic Other diseases of bladder and urethra (7 sources) Overactive bladder; Translations: [Overactive bladder] Chronic Other diseases of kidney and ureters (18 sources) Renal mass; Translations: [Other specified disorders of kidney and ureter] Chronic Other diseases of kidney and ureters (7 sources) Disorder of kidney and/or ureter; Translations: [Other specified disorders of kidney and ureter] Onset: 03-29-2019 Chronic Other gastrointestinal disorders (20 sources) Diarrhea; Translations: [Diarrhea, unspecified] Episodic Other gastrointestinal disorders (7 sources) Other specified symptoms and signs involving the digestive system and abdomen; Translations: [OTH SPEC SX SIGNS DIGESTV SYS ABD] Onset: 01-18-2023 Episodic Other infections; including parasitic (7 sources) H/O: infectious disease; Translations: [Personal history of other infectious and parasitic diseases] Episodic Other injuries and conditions due to external causes (18 sources) Other injury of other muscle(s) and tendon(s) at lower leg level, right leg, initial encounter; Translations: [Fitzpatrick splints, right, initial encounter] Episodic Other injuries and conditions due to external causes (7 sources) Injury of muscle and tendon at lower leg level; Translations: [Other injury of other muscle(s) and tendon(s) at lower leg level, right leg, initial encounter] Episodic Other liver diseases (5 sources) Steatosis of liver; Translations: [Fatty (change of) liver, not elsewhere classified] Chronic Other liver diseases (1 source) Fatty (change of) liver, not elsewhere classified Chronic Other liver diseases (18 sources) Liver mass; Translations: [Hepatomegaly, not elsewhere classified] Episodic Other lower respiratory disease (18 sources) Dyspnea on exertion; Translations: [Other forms of dyspnea] Episodic Other lower respiratory disease (18 sources) Cough; Translations: [Cough] Episodic Other lower respiratory disease (7 sources) Dyspnea; Translations: [Other forms of dyspnea] [...] Onset: 08-27-2022 Chronic Other nervous system disorders (2 sources) Right-sided piriformis syndrome; Translations: [Lesion of sciatic nerve, right lower limb] Chronic Other nervous system disorders (1 source) Lesion of sciatic nerve, right lower limb Chronic Other nervous system disorders (1 source) Postoperative pain ; Translations: [Other acute postprocedural pain] 08-06-2023 Episodic Other non-traumatic joint disorders (18 sources) Multiple joint pain; Translations: [Pain in unspecified joint] Episodic Other non-traumatic joint disorders (18 sources) Instability of joint of left foot; Translations: [Other instability, left foot] Episodic Other non-traumatic joint disorders (14 sources) Arthralgia of the lower leg; Translations: [Pain in right knee] Episodic Other nutritional; endocrine; and metabolic disorders (20 sources) Obese class I; Translations: [Body mass index (BMI) 34.0-34.9, adult] Chronic Other nutritional; endocrine; and metabolic disorders (7 sources) Obesity; Translations: [Obesity, unspecified] Chronic Other upper respiratory infections (7 sources) Chronic sinusitis; Translations: [Chronic sinusitis, unspecified] Chronic Other upper respiratory infections (14 sources) Acute maxillary sinusitis; Translations: [Acute recurrent maxillary sinusitis] Onset: 08-09-2018 Episodic Pancreatic disorders (not diabetes) (2 sources) Chronic pancreatitis; Translations: [Other chronic pancreatitis] Chronic [...] UNS] Onset: 08-27-2022 Chronic Residual codes; unclassified (5 sources) Sleep dysfunction with sleep stage disturbance; Translations: [Other sleep disorders] Onset: 10-10-2012 01-24-2023 Chronic Residual codes; unclassified (7 sources) Obstructive sleep apnea syndrome; Translations: [Obstructive sleep apnea] Onset: 08-07-2018 Chronic Residual codes; unclassified (20 sources) Reduced libido; Translations: [Decreased libido] Episodic Residual codes; unclassified (7 sources) Tobacco user; Translations: [Tobacco use] Episodic Residual codes; unclassified (7 sources) Insomnia; Translations: [Insomnia, unspecified] Episodic Skin [...] Systemic lupus erythematosus and connective tissue disorders (7 sources) Autoimmune disease; Translations: [Autoimmune disease, not elsewhere classified] Onset: 08-07-2018 Chronic Thyroid disorders (20 sources) Non-toxic uninodular goiter; Translations: [Nontoxic single thyroid nodule] Onset: 08-07-2018 Chronic Unclassified (1 source) Low back pain, unspecified; Translations: [Low back pain, unspecified] Onset: 06-19-2023 Past or Other Problems Problem Classification Problem Date Documented Da te Episodic/Chronic Bacterial infection; unspecified site (5 sources) Bartonellosis; 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, 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 01-24-2023 Episodic Other aftercare (7 sources) Surgical follow-up; Translations: [Surgery follow-up examination] [...] Onset: 01-30-2022 Episodic Other connective tissue disease (7 sources) Enthesopathy of hip region; Translations: [Enthesopathy of hip region] Onset: 08-07-2018 Episodic Other gastrointestinal disorders (4 sources) Diarrhea, unspecified; Translations: [DIARRHEA UNSPECIFIED] Onset: 04-08-2022 Episodic Other infections; including parasitic (20 sources) Lyme disease; Translations: [Lyme disease, 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 01-24-2023 Episodic Other liver diseases (7 sources) Large liver; Translations: [Hepatomegaly, not elsewhere classified] Onset: 03-29-2019 Episodic Other nervous system disorders (7 sources) Paresthesia; Translations: [Paresthesia of skin] Onset: 08-07-2018 Episodic Other nervous system disorders (2 sources) Other acute postprocedural pain; Translations: [Other acute postprocedural pain] Onset: 08-09-2023 Episodic Other non-traumatic joint disorders (4 sources) Pain in unspecified ankle and joints of unspecified foot; Translations: [PAIN IN UNSPECIFIED ANKLE] Onset: 08-23-2022 Episodic Other non-traumatic joint disorders (7 sources) Joint pain; Translations: [Pain in unspecified joint] Onset: 08-07-2018 Episodic Other non-traumatic joint disorders (2 sources) Pain in unspecified knee; Translations: [Pain in unspecified knee] Onset: 01-29-2023 Episodic Other screening for suspected conditions (not mental disorders or infectious disease) (15 sources) Encounter for screening mammogram for malignant neoplasm of breast; Translations: [Abnormal findings diagnostic imaging of liver+biliary tract] Onset: 12-19-2018 Episodic Other skin disorders (7 sources) Mass of thoracic structure; Translations: [Swelling, mass, or lump in chest] Onset: 12-02-2018 Episodic Residual codes; unclassified (1 source) Other specified postprocedural states; Translations: [OTH SPECIFIED POSTPROCEDURAL STATES] Onset: 08-27-2022 Episodic Residual codes; unclassified (1 source) Family history of malignant neoplasm of breast; Translations: [FAMILY HX MALIG NEOPLASM OF BREAST] Onset: 08-12-2022 Episodic Unclassified (18 sources) Left lumbar pain; Translations: [Left lumbar pain] Results Test Name Value Interpretation Reference Range Facility Podiatry Office/Clinic Noteo n 01-18-2024 Podiatry Office/Clinic Note Chief Complaint Follow-up concern for multiple nerve entrapment. Follow-up of left saphenous nerve injection under ultrasound guidance. New left forefoot pain. History of Present Illness Patient is a pleasant 63-year-old female who presents for follow-up for concern for left nerve entrapment pain. She has been following with rheumatology. Was not diagnosed with rheumatoid arthritis or lupus or any other rheumatologic diseases. She relates the last left saphenous nerve diagnostic injection helped about 30% with her pain for short period of time. Pain is now returned to prior levels. She is also having new pain to the outside of her left forefoot. Relates that it is not associated with her left surgical site at the first metatarsal phalangeal joint. Patient presents today complaining of painful left foot from middle of foot to the ball of the foot which is aching and throbbing in nature and sometimes stinging and burning in recent months. Patient relates that this is most troublesome in shoe gear wear and when ambulating and weightbearing although sometimes without shoe gear as well. Patient denies overt trauma to the area that they can remember. Patient relates that they have tried [id number] pain relievers, padding, and modification of shoe gear as well as modification of activity levels to no avail. Relates this is more on the outside of the foot. Patient relates she is diabetic. Sees Dr. Montoya as her primary care physician. Relates her last hemoglobin A1c was 6.1. Relates morning glucose of 103. Patient reports last primary care physician visit was December 13, 2023 She has obtained her diabetic shoes. Relates that these do not help either. Review of Systems Constitutional Head Nose Mouth [...] No Depression: No Numbness: No Gastrointestinal Dermatology Problems: No Rash: No Pain: No Pruritus: No Physical Exam Vitals & Measurements HT: [...] joint range of motion on the right. pain to palpation left third and fourth metatarsal as well as the third and fourth interspace. Pain to palpation along the neck and shaft of the third and fourth metatarsal. Negative Danica test to the lesser metatarsophalangeal joints. No pain with range of motion of the lesser metatarsophalangeal joints. No pain with stress abduction or external rotation of the forefoot on the midfoot. Negative piano walden test. No pain to palpation Lisfranc complex. No pain with attempted range of motion of the first metatarsophalangeal joint fusion site with 3D plated implant on the left. No pain with attempted hallux interphalangeal joint range of motion on the left. No pain with first ray range of motion of the first tarsometatarsal joint on the left. Dermatologic: Skin is within normal limits Negative for overt rashes or irregular pigmented lesions. Skin turgor normal. Well-healed cicatrix noted to the left anterior knee, left anterior medial ankle, left dorsal first metatarsophalangeal joint Neurologic: Gross and epicritic sensation intact bilateral. Protective sensation intact altered to 3 out of 10 sites as measured with [place] French monofilament bilateral, otherwise intact Gross motor intact bilateral. Negative Tinel to the right tibial nerve at the tarsal tunnel, bilateral common peroneal nerve at the fibular head, bilateral sural nerve. Positive Tinel at the left tibial nerve. Negative Tinel to the right deep peroneal nerve in the right superficial peroneal nerve. Positive Tinel to the left superficial peroneal nerve in the left deep perone (more content not included)... Normal [facility] US Guidance/Localizationon 0 01-18-2024 US Guidance/Localization EXAM: Limited Diagnostic Musculoskeletal Ultrasound [with Ultrasound-Guided Injection of left superficial peroneal nerve at the anterior lateral ankle] CLINICAL HISTORY: Patient has concern for multiple peripheral nerve entrapments. History of left first metatarsophalangeal joint fusion with 3D implant TECHNIQUE: Musculoskeletal Ultrasound with ImpulseFlyer e Next Gen unit with [12 MHz][L10-22] transducer FINDINGS: No thickening of the superficial peroneal nerve, anatomic superficial peroneal at the anterior lateral lower leg/ankle IMPRESSION: Entrapment left superficial peroneal nerve PROCEDURE: The left superficial peroneal nerve was identified at the anterior lateral ankle and the position of the transducer was marked on the skin. [Color Doppler was used to identify the location of any vasculature to ensure that no blood vessels were in the pathway of the needle. ] The area of the injection and the transducer were both prepared sterilely. The transducer was then placed at the marked spot on the skin and the left superficial peroneal nerve was again localized with the ultrasound. [Under direct ultrasound guidance the position of the needle was confirmed in both the long and transverse axis. 5 mL of 0.5% Marcaine plain was injected into the left superficial peroneal nerve. The patient tolerated the procedure without difficulty. Patient return to clinic in 1 to 2 weeks for reevaluation of pain relief from diagnostic injection of the left superficial peroneal nerve. Final Signed by: Janett Balbuena DPM Signed (Electronic Signature): 01/18/2024 12:40 pm Transcribed DT/TM: 01/18/2024 12:40 (If Report Is Signed, Electronically Signed in Other Vendor System) Normal [facility] Podiatry Office/Clinic Noteo n 12-20-2023 Podiatry Office/Clinic Note Chief Complaint Left greater than right nerve pain History of Present Illness Patient is a pleasant 63-year-old female who presents for follow-up for concern for left nerve entrapment pain. She has been following with rheumatology. Was not diagnosed with rheumatoid arthritis or lupus or any other rheumatologic diseases. Since last visit she has had a revision left knee replacement. Her left foot nerve pain is unchanged since last visit. Patient relates she is diabetic. Sees Dr. Montoya as her primary care physician. Relates her last hemoglobin A1c was 6.1. Relates morning glucose of 102. Patient reports last primary care physician visit was December 13, 2023 She has obtained her diabetic shoes. Relates that these do not help either. Review of Systems Constitutional Head Nose Mouth Throat Cardio/Respiratory Hematologic Chills: No Headache: No Shortness of Breath: No History of DVT: No Fever: No Sore Throat: No Chest Pain: No History of Claudication: No Ear Pain: No Palpitation: No History of Aneurysm: No History of Gangrene: No Genitourinary Musculoskeletal Psychiatric Vascular Burning: No Muscle Weakness: Yes Anxiety: No Blood Disorder: No Pain: No Joint Pain: Yes Depression: No Numbness: Yes Gastrointestinal Dermatology Rheumatologic Problems: No Rash: No History of Rheumatic Arthritis: No Pain: No Pruritus: No History of Gout: No History of Lupus: No Physical Exam Vitals & Measurements HR: 112 (Peripheral) BP: 133/74 HT: 165 cm BMI: 0 Orthopedic: Bony foot structure appears grossly rectus. [...] left dorsal first metatarsophalangeal joint Neurologic: Gross and epicritic sensation intact bilateral. Protective sensation intact altered to 3 out of 10 sites as measured with [place] French monofilament bilateral, otherwise intact Gross motor intact bilateral. Negative Tinel to the right tibial nerve at the tarsal tunnel, bilateral common peroneal nerve at the fibular head, bilateral sural nerve. Positive Tinel at the left tibial nerve. Negative Tinel to the right deep peroneal nerve in the right superficial peroneal nerve. Positive Tinel to the left superficial peroneal nerve in the left deep peroneal nerve at the anterior ankle. There is also positive Tinel to the dorsal exostosis at the dorsal midfoot on the left along the course of the deep peroneal nerve. Positive Tinel to the left saphenous nerve Vascular: Pedal Pulses palpable at Dorsalis Pedis and weakly palpable posterior Tibial Bilateral. Capillary fill time approximately 3 seconds bilateral at toes when leg elevated. Negative for significant edema in either lower extremity Skin temp warm to cool proximal to distal bilateral. Additional Vitals No qualifying data available. Assessment/Plan 1. Saphenous nerve neuropathy The risks, benefits, and alternatives of the planned injection/aspiration procedure were discussed with the patient as well as possible complications, including (but not limited to): allergic reaction, pain, infection, and bleeding. The patient elected to proceed and verbally consented. Post-injection: the patient was instructed to rest, ice, elevate, and may resume normal activities tomorrow. The patient will call our office with adverse reactions or questions. Left saphenous nerve injection performed under ultrasound guidance. Please see procedure note for further details. 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 Retained orthopedic hardware 7. Diabetic neuropathy 8. ADRI positive 9. Pain in joint, multiple sites -Evaluation and Management extensive and detailed with time spent with patient dedicated to discussion of pathogenesis and barby (more content not included)... Normal [facility] US Guidance/Localizationon 0 12-20-2023 US Guidance/Localization EXAM: Limited Diagnostic Musculoskeletal Ultrasound [with Ultrasound-Guided Injection of left saphenous nerve] CLINICAL HISTORY: Patient has concern for multiple peripheral nerve entrapments. History of left first metatarsophalangeal joint fusion with 3D implant TECHNIQUE: Musculoskeletal Ultrasound with ImpulseFlyer e Next Gen unit with [12 MHz][L10-22] transducer FINDINGS: No thickening of the saphenous nerve, anatomic saphenous nerve course at the lower leg and ankle IMPRESSION: Entrapment left saphenous nerve PROCEDURE: The left saphenous nerve was identified and the position of the transducer was marked on the skin. [Color Doppler was used to identify the location of any vasculature to ensure that no blood vessels were in the pathway of the needle. ] The area of the injection and the transducer were both prepared sterilely. The transducer was then placed at the marked spot on the skin and the left saphenous nerve was again localized with the ultrasound. [Under direct ultrasound guidance the position of the needle was confirmed in both the long and transverse axis. 5 mL of 0.5% Marcaine plain was injected into the left saphenous nerve. The patient tolerated the procedure without difficulty. Patient return to clinic in 1 to 2 weeks for reevaluation of pain relief from diagnostic injection of the left saphenous nerve. Final Signed by: Janett Balbuena DPM Signed (Electronic Signature): 12/20/2023 5:19 pm Transcribed DT/TM: 12/20/2023 5:19 (If Report Is Signed, Electronically Signed in Other Vendor System) Normal [facility] XR Ankle 3 Views Bilateralon 12-20-2023 XR Ankle 3 Views Bilateral 3 weightbearing views bilateral ankle demonstrate: Right ankle: Ankle mortise is well aligned and maintained. No increase in medial clear space noted. No increase in tib-fib clear space noted. No acute fractures or dislocations noted. Spurring at the plantar and posterior calcaneus noted. No foreign bodies noted. No increase in soft tissue volume, density, or edema noted. Left ankle: Ankle mortise is well aligned and [...] tissue volume, density, or edema noted. No change in appearance compared to prior studies on July 27, 2022. Final Signed by: Janett Balbuena DPM Signed (Electronic Signature): 12/20/2023 4:40 pm Transcribed DT/TM: 12/20/2023 4:40 (If Report Is Signed, Electronically Signed in Other Vendor System) Normal [facility] XR Foot 3 Views Bilateralon 12-20-2023 XR Foot 3 Views Bilateral 3 weightbearing [...] tissue volume, density, or edema noted. No change in appearance of the alignment of the hardware compared to prior study on July 27, 2022 Final Signed by: Janett Balbuena DPM Signed (Electronic Signature): 12/20/2023 4:41 pm Transcribed DT/TM: 12/20/2023 4:41 (If Report Is Signed, Electronically Signed in Other Vendor System) Normal [facility] XR lumbar spine min 4V*on XR lumbar spine min 4V* [facility] [place] [address] [place] [address] XRay Report Signed Patient: Emily Macias MR#: [id number] : 1960 Acct:[id number] Age/Sex: 62 / F ADM Date: 06/19/23 Loc: XD Room: Type: [facility] Attending Dr: Cara Leo MD Copies to: [...] Lucy Thomas M.D.06/19/2023 4:01 PM Dictation Location: [place] [address] Transcribed By: [facility] 06/19/23 1601 Dictated By: Lucy Thomas MD 06/19/23 1556 Signed By: 06/19/23 1601 [facility] CT abdomen pelvis wo/w conon 05-09-2023 CT abdomen pelvis wo/w con [facility] [address] CT Scan Report Signed Patient: Emily Macias MR#: [id number] : 1960 Acct:[id number] Age/Sex: 62 / F ADM Date: 05/09/23 Loc: Room: Type: [facility] Attending Dr: Siva Ron MD Copies to: [...] seen. Impression dictated by: Bar Sims Jr., DNithya05/09/2023 1:32 PM Dictation Location: [place] [address] Transcribed By: [facility] 05/09/23 1332 Dictated By: Bar Sims Jr, DO 05/09/23 1314 Signed By: 05/09/23 1332 [facility] Glucose Glucometer (BldC) [M ass/Vol]Ordered By: Siva Ron on 05-09-2023 Glucose [Mass/Vol] 136 mg/dL [facility] Comment on above: Random Glucose Refer ence Range is dependent on time and content of last meal. Glucose of more than 200 mg/dL in a nonstressed, ambulatory subject supports the diagnosis of Diabetes Mellitus. Glucose Poct Glucometerson 0 05-09-2023 Commemt1 Glu2: Cleaned Meter [facility] Comment on above: Result Comment: PERF ORMED BY: [facility] [address] [place] [address] PATHOLOGIST HOME APPLIANCE TECHNICIAN DINAH MARIE M.D. Performed By: #### G LUJED #### Point of Care testing , Glucose [Mass/Vol] 136 mg/dL Normal [facility] Comment on above: Result Comment: [facility] Glucose Reference Range is dependent on time and content of last meal. Glucose of more than 200 mg/dL in a nonstressed, ambulatory subject supports the diagnosis of Diabetes Mellitus. Performed By: #### G LULS #### Point of Care testing , No Panel InformationOrdered By: Siva Ron on 05-09-2023 Bedside Glucose Comment Glu2: cleaned meter [facility] US liveron 05-09-2023 [facility] [place] [address] [place] [address] Ultrasound Report Signed Patient: Emily Macias MR#: [id number] : 1960 Acct:[id number] Age/Sex: 62 / F ADM Date: 05/09/23 Loc: Room: Type: [facility] Attending Dr: Siva Ron MD Ordering Provider: [...] RECOMMENDED.. Impression dictated by: Bar Sims Jr., Bruce05/09/2023 12:36 PM Dictation Location: [place] [address] Tech: Leydi Thompson Transcribed By: FLYNN 05/09/23 1236 Dictated By: Bar Sims Jr, DO 05/09/23 1233 Signed By: 05/09/23 1236 [facility] BMP FASTINGon 01-30-2023 Anion gap [Moles/Vol] 6 mmol/L Low 8-16 [facility] Comment on above: Performed By: #### A CBC, BMPF #### Testing performed at [address] [address] Calcium [Mass/Vol] 8.4 mg/dL Normal 8.4-10.2 [facility] Comment on above: Performed By: #### A CBC, BMPF #### Testing performed at [address] [address] Chloride [Moles/Vol] 107 mmol/L Normal 98-107 [facility] Comment on above: Performed By: #### A CBC, BMPF #### Testing performed at [address] [address] CO2 [Moles/Vol] 23 mmol/L Normal 22-30 [facility] Comment on above: Performed By: #### A CBC, BMPF #### Testing performed at [address] [address] Creatinine [Mass/Vol] 0.69 mg/dL Normal 0.52-1.04 [facility] Comment on above: Performed By: #### A CBC, BMPF #### Testing performed at [address] [address] EST. GFR, 111 ml/min/1.73sq.m [facility] Comment on above: Performed By: #### A CBC, BMPF #### Testing performed at [address] [address] EST. GFR,Non 91 ml/min/1.73sq.m [facility] Comment on above: Performed By: #### A CBC, BMPF #### Testing performed at [address] [address] GFR Information Average GFR for 60-6 9 years old = 85. [facility] Comment on above: Result Comment: Service Delivery Consultant ruth Kidney disease, GFR = <60. Kidney failure, GFR = <15. The GFR estimate is not adjusted for extreme body surface area or acute process, nor has it been validated for women or ethnic groups other than and . Performed By: #### A CBC, BMPF #### Testing performed at [address] [address] Glucose [Mass/Vol] 119 mg/dL High 70-100 [facility] Comment on above: Result Comment: NORMAL <100 mg/dL PREDIABETES 101-126 mg/dL DIABETES 126 mg/dL or higher Performed By: #### A CBC, BMPF #### Testing performed at [address] [address] Potassium [Moles/Vol] 4.1 mmol/L Normal 3.5-5.1 [facility] Comment on above: Performed By: #### A CBC, BMPF #### Testing performed at [address] [address] Sodium [Moles/Vol] 136 mmol/L Normal 136-145 [facility] Comment on above: Performed By: #### A CBC, BMPF #### Testing performed at [address] [address] Urea nitrogen [Mass/Vol] 25 mg/dL High 7-20 [facility] Comment on above: Performed By: #### A CBC, BMPF #### Testing performed at [address] [address] CBCon 01-30-2023 ABSOLUTE BAS 0.0 10*3/uL Normal 0.0-0.2 [facility] Comment on above: Performed By: #### A CBC, BMPF #### Testing performed at [address] [address] ABSOLUTE EOS 0.0 10*3/uL Normal 0.0-0.7 [facility] Comment on above: Performed By: #### A CBC, BMPF #### Testing performed at [address] [address] ABSOLUTE NEUTROPHIL COUNT 9.9 10*3/uL High 1.4-6.5 [facility] Comment on above: Performed By: #### A CBC, BMPF #### Testing performed at [address] [address] Basophils/100 WBC (Bld) 0.1 % Normal 0.0-2.0 [facility] Comment on above: Performed By: #### A CBC, BMPF #### Testing performed at [address] [address] DTYPE AUTO DIFF Normal [facility] Comment on above: Performed By: #### A CBC, BMPF #### Testing performed at [address] [address] Eosinophils/100 WBC (Bld) 0.2 % Normal 0.0-11.0 [facility] Comment on above: Performed By: #### A CBC, BMPF #### Testing performed at [address] [address] Lymphocytes (Bld) [#/Vol] 1.5 10*3/uL Normal 1.2-3.4 [facility] Comment on above: Performed By: #### A CBC, BMPF #### Testing performed at [address] [address] Lymphocytes/100 WBC (Bld) 12.5 % Low 20.0-55.0 [facility] Comment on above: Performed By: #### A CBC, BMPF #### Testing performed at [address] [address] Monocytes (Bld) [#/Vol] 0.5 10*3/uL Normal 0.0-0.7 [facility] Comment on above: Performed By: #### A CBC, BMPF #### Testing performed at [address] [address] Monocytes/100 WBC (Bld) 4.4 % Normal 0.0-10.0 [facility] Comment on above: Performed By: #### A CBC, BMPF #### Testing performed at [address] [address] Neutrophils/100 WBC (Bld) 82.8 % High 37.0-75.0 [facility] Comment on above: Performed By: #### A CBC, BMPF #### Testing performed at [address] [address] Erythrocyte distribution width (RBC) [Ratio] 13.9 % Normal 11.5-14.5 [facility] Comment on above: Performed By: #### A CBC, BMPF #### Testing performed at [address] [address] Hematocrit (Bld) [Volume fraction] 31.5 % Low 36.0-48.0 [facility] Comment on above: Performed By: #### A CBC, BMPF #### Testing performed at [address] [address] Hemoglobin (Bld) [Mass/Vol] 10.3 g/dL Low 12.0-16.0 [facility] Comment on above: Performed By: #### A CBC, BMPF #### Testing performed at [address] [address] MCH (RBC) [Entitic mass] 30.1 pg Normal 26.0-35.0 [facility] Comment on above: Performed By: #### A CBC, BMPF #### Testing performed at [address] [address] MCHC (RBC) [Mass/Vol] 32.8 g/dL Normal 27.0-37.0 [facility] Comment on above: Performed By: #### A CBC, BMPF #### Testing performed at [address] [address] MCV (RBC) [Entitic vol] 91.7 fL Normal 80.0-100.0 [facility] Comment on above: Performed By: #### A CBC, BMPF #### Testing performed at [address] [address] Platelet mean volume (Bld) [Entitic vol] 8.1 fL Normal 7.4-11.0 [facility] Comment on above: Performed By: #### A CBC, BMPF #### Testing performed at [address] [address] Platelets (Bld) [#/Vol] 256 10*3/uL Normal 130-400 [facility] Comment on above: Performed By: #### A CBC, BMPF #### Testing performed at [address] [address] RBC (Bld) [#/Vol] 3.43 10*6/uL Low 4.0-5.4 [facility] Comment on above: Performed By: #### A CBC, BMPF #### Testing performed at [address] [address] WBC (Bld) [#/Vol] 11.9 10*3/uL High 3.6-11.0 [facility] Comment on above: Performed By: #### A CBC, BMPF #### Testing performed at [address] [address] POCT GLUCOSEon 01-30-2023 Glucose [Mass/Vol] 252 mg/dL High 70-100 [facility] QUALITY IMPROVEMENT CONSULTANT [id number] Normal [facility] MRSA SCREENon 01-29-2023 MRSA DNA DAISY+probe Ql (Unsp spec) Negative Normal NEGATIVE [facility] Comment on above: Performed By: #### M RSAST #### Testing performed at [address] [address] STAPH AUREUS SCREEN Negative Normal NEGATIVE [facility] Comment on above: Result Comment: TEST ING PERFORMED BY PCR Performed By: #### M RSAST #### Testing performed at [address] [address] POCT GLUCOSEon 01-29-2023 Glucose [Mass/Vol] 194 mg/dL High 70-100 [facility] QUALITY IMPROVEMENT CONSULTANT [id number] Normal [facility] Glucose [Mass/Vol] 110 mg/dL High 70-100 [facility] QUALITY IMPROVEMENT CONSULTANT [id number] Normal [facility] REPEAT ABO/RHon 01-29-2023 REPEAT ABO/RH Positive Normal [facility] Comment on above: Performed By: #### R ABRH #### Testing performed at [address] [address] PANCREATIC ELASTASE FECALon 01-22-2023 Pancreatic Elastase, Fecal 128 ug Elast./g Critically low >200 [facility] Comment on above: Result Comment: Jihan re Pancreatic Insufficiency: <100 Moderate Pancreatic Insufficiency: 100 - 200 Normal: >200 Performed By: #### H PYLORI #### [facility] [address] [address] [address] Irene Cedillo LACTOFERRIN FECAL QUANTon Lactoferrin, Fecal, Quant. <1.00 Normal 0.00-7.24 [facility] Comment on above: Result Comment: Re [...] (IBS). Performed By: #### S EDR #### [facility] [address] [place] [address] Dr. Irene Cedillo CALPROTECTIN, FECALon 2022 Calprotectin, Fecal 139 ug/g Critically high 0-120 [facility] Comment on above: Result Comment: Conc entration Interpretation Follow-Up <16 - 50 ug/g Normal None >50 -120 ug/g Borderline Re-evaluate in 4-6 weeks >120 ug/g Abnormal Repeat as clinically indicated Performed By: #### H PYLORI #### [facility] [address] [place] [address] Dr. Irene Cedillo PANCREATIC ELASTASE FECALon 01-15-2023 Pancreatic Elastase, Fecal 161 ug Elast./g Critically low >200 [facility] Comment on above: Result Comment: Jihan re Pancreatic Insufficiency: <100 Moderate Pancreatic Insufficiency: 100 - 200 Normal: >200 Performed By: #### A NTI-NICOLLE #### [facility] [address] [place] [address] Dr. Irene Cedillo TSHon 01-09-2023 TSH 1.630 uIU/mL Normal 0.358-3.[address] [facility] Comment on above: Performed By: #### T SH #### [facility] [address] [place] [address] Dr. Irene Cedillo CBCon 01-04-2023 ABSOLUTE BAS 0.1 10*3/uL Normal 0.0-0.2 [facility] Comment on above: Performed By: #### T SCC #### [place] [address] ABSOLUTE EOS 0.6 10*3/uL Normal 0.0-0.7 [facility] Comment on above: Performed By: #### T SCC #### Testing performed at [address] [place] [address] ABSOLUTE NEUTROPHIL COUNT 2.4 10*3/uL Normal 1.4-6.5 [facility] Comment on above: Performed By: #### T SCC #### Testing performed at [address] [place] [address] Basophils/100 WBC (Bld) 1.1 % Normal 0.0-2.0 [facility] Comment on above: Performed By: #### T SCC #### Testing performed at [address] [address] DTYPE AUTO DIFF Normal [facility] Comment on above: Performed By: #### T SCC #### Testing performed at [address] [address] Eosinophils/100 WBC (Bld) 10.6 % Normal 0.0-11.0 [facility] Comment on above: Performed By: #### T SCC #### Testing performed at [address] [address] Lymphocytes (Bld) [#/Vol] 2.3 10*3/uL Normal 1.2-3.4 [facility] Comment on above: Performed By: #### T SCC #### Testing performed at [address] [place] [address] Lymphocytes/100 WBC (Bld) 39.2 % Normal 20.0-55.0 [facility] Comment on above: Performed By: #### T SCC #### Testing performed at [address] [place] [address] Monocytes (Bld) [#/Vol] 0.4 10*3/uL Normal 0.0-0.7 [facility] Comment on above: Performed By: #### T SCC #### Testing performed at [address] [place] [address] Monocytes/100 WBC (Bld) 7.4 % Normal 0.0-10.0 [facility] Comment on above: Performed By: #### T SCC #### Testing performed at [address] [address] Neutrophils/100 WBC (Bld) 41.7 % Normal 37.0-75.0 [facility] Comment on above: Performed By: #### T SCC #### Testing performed at [address] [address] Erythrocyte distribution width (RBC) [Ratio] 13.9 % Normal 11.5-14.5 [facility] Comment on above: Performed By: #### T SCC #### Testing performed at [address] [address] Hematocrit (Bld) [Volume fraction] 38.8 % Normal 36.0-48.0 [facility] Comment on above: Performed By: #### T SCC #### Testing performed at [address] [address] Hemoglobin (Bld) [Mass/Vol] 13.0 g/dL Normal 12.0-16.0 [facility] Comment on above: Performed By: #### T SCC #### Testing performed at [address] [address] MCH (RBC) [Entitic mass] 30.4 pg Normal 26.0-35.0 [facility] Comment on above: Performed By: #### T SCC #### Testing performed at [address] [address] MCHC (RBC) [Mass/Vol] 33.5 g/dL Normal 27.0-37.0 [facility] Comment on above: Performed By: #### T SCC #### Testing performed at [address] [address] MCV (RBC) [Entitic vol] 90.8 fL Normal 80.0-100.0 [facility] Comment on above: Performed By: #### T SCC #### Testing performed at [address] [address] Platelet mean volume (Bld) [Entitic vol] 7.6 fL Normal 7.4-11.0 [facility] Comment on above: Performed By: #### T SCC #### Testing performed at [facility] [place] [facility] [address] [place] [address] Platelets (Bld) [#/Vol] 293 10*3/uL Normal 130-400 [facility] Comment on above: Performed By: #### T SCC #### Testing performed at [address] [address] RBC (Bld) [#/Vol] 4.27 10*6/uL Normal 4.0-5.4 [facility] Comment on above: Performed By: #### T SCC #### Testing performed at [address] [place] [address] WBC (Bld) [#/Vol] 5.8 10*3/uL Normal 3.6-11.0 [facility] Comment on above: Performed By: #### T SCC #### Testing performed at [address] [address] CMP FASTINGon 01-04-2023 A:G RATIO 1.4 RATIO Normal 1.3-2.2 [facility] Comment on above: Performed By: #### T SCC #### Testing performed at [address] [place] [address] ALBUMIN 3.9 G/dl Normal 3.5-5.0 [facility] Comment on above: Performed By: #### T SCC #### Testing performed at [address] [address] ALP [Catalytic activity/Vol] 67 U/L Normal 38-126 [facility] Comment on above: Performed By: #### T SCC #### Testing performed at [address] [place] [address] ALT [Catalytic activity/Vol] 21 U/L Normal 14-54 [facility] Comment on above: Performed By: #### T SCC #### Testing performed at [address] [place] [address] AST [Catalytic activity/Vol] 23 U/L Normal 15-41 [facility] Comment on above: Performed By: #### T SCC #### Testing performed at [address] [place] [address] Bilirubin [Mass/Vol] 0.4 mg/dL Normal 0.2-1.2 [facility] Comment on above: Performed By: #### T SCC #### Testing performed at [address] [address] Calcium [Mass/Vol] 9.5 mg/dL Normal 8.4-10.2 [facility] Comment on above: Performed By: #### T SCC #### Testing performed at [address] [address] Chloride [Moles/Vol] 103 mmol/L Normal 98-107 [facility] Comment on above: Performed By: #### T SCC #### Testing performed at [address] [address] CO2 [Moles/Vol] 53 mmol/L High 22-30 [facility] Comment on above: Performed By: #### T SCC #### Testing performed at [address] [address] Creatinine [Mass/Vol] 0.67 mg/dL Normal 0.52-1.04 [facility] Comment on above: Performed By: #### T SCC #### Testing performed at [address] [address] EST. GFR, 114 ml/min/1.73sq.m [facility] Comment on above: Performed By: #### T SCC #### Testing performed at [address] [address] EST. GFR,Non 94 ml/min/1.73sq.m [facility] Comment on above: Performed By: #### T SCC #### Testing performed at [address] [address] GFR Information Average GFR for 60-6 9 years old = 85. Normal [facility] Comment on above: Result Comment: Service Delivery Consultant ruth Kidney disease, GFR = <60. Kidney failure, GFR = <15. The GFR estimate is not adjusted for extreme body surface area or acute process, nor has it been validated for women or ethnic groups other than and . Performed By: #### T SCC #### Testing performed at [address] [address] Glucose [Mass/Vol] 131 mg/dL High 70-100 [facility] Comment on above: Result Comment: NORMAL <100 mg/dL PREDIABETES 101-126 mg/dL DIABETES 126 mg/dL or higher Performed By: #### T SCC #### Testing performed at [address] [address] Potassium [Moles/Vol] 4.6 mmol/L Normal 3.5-5.1 [facility] Comment on above: Performed By: #### T SCC #### Testing performed at [address] [address] Protein [Mass/Vol] 6.6 g/dL Normal 6.3-8.2 [facility] Comment on above: Performed By: #### T SCC #### Testing performed at [address] [address] Sodium [Moles/Vol] 137 mmol/L Normal 136-145 [facility] Comment on above: Performed By: #### T SCC #### Testing performed at [address] [address] Urea nitrogen [Mass/Vol] 24 mg/dL High 7-20 [facility] Comment on above: Performed By: #### T SCC #### Testing performed at [address] [address] HEMOGLOBIN A1Con 01-04-2023 Glucose [Mass/Vol] 140 mg/dL Normal [facility] Comment on above: Performed By: #### H A1CT #### Testing performed at [address] [address] HbA1c (Bld) [Mass fraction] 6.5 % High <6 [facility] Comment on above: Result Comment: NORMAL <5.7% PREDIABETES 5.7-6.4% DIABETES 6.5% OR HIGHER Performed By: #### H A1CT #### Testing performed at [address] [address] MRSA SCREENon 01-04-2023 MRSA DNA DAISY+probe Ql (Unsp spec) Negative Normal NEGATIVE [facility] Comment on above: Performed By: #### T SCC #### Testing performed at [address] [address] STAPH AUREUS SCREEN Positive Abnormal NEGATIVE [facility] Comment on above: Result Comment: TEST ING PERFORMED BY PCR Performed By: #### T SCC #### Testing performed at [address] [place] [address] PROTIMEon 01-04-2023 INR Coag (PPP) [Relative time] 0.97 {INR} Normal 0.85-1.10 [facility] Comment on above: Result Comment: 2.0-3.0 THERAPEUTIC RANGE 2.5-3.5 MECHANICAL VALVE RANGE Performed By: #### T SCC #### Testing performed at [address] [address] PT Coag (PPP) [Time] 13.0 s Normal 11.8-14.4 [facility] Comment on above: Performed By: #### T SCC #### Testing performed at [address] [address] TYPE AND SCREEN CROSSMATCH C ONVERTIBLEon 01-04-2023 TYPE AND SCREEN CROSSMATCH CONVERTIBLE UNITS ORDERED 2 WORKUP EXPIRES 02/01/2023,2359 ABO/RH(D) AB POSITIVE ANTIBODY SCREEN NEGATIVE ARM BAND NUMBER [id number] Normal [facility] Comment on above: Performed By: #### T SCC #### Testing performed at [address] [place] [address] URINE MACROSCOPICon 01-05-20 23 Bilirubin Ql (U) Negative Normal NEGATIVE [facility] Comment on above: Performed By: #### U MAC #### Testing performed at [address] [place] [address] Clarity (U) CLEAR Normal CLEAR [facility] Comment on above: Performed By: #### U MAC #### Testing performed [place] [address] [place] [address] Color (U) YELLOW Normal YELLOW [facility] Comment on above: Performed By: #### U MAC #### Testing performed at [address] [address] Glucose Ql (U) Negative Normal NEGATIVE [facility] Comment on above: Performed By: #### U MAC #### Testing performed at [address] [place] [address] pH (U) 7.0 [pH] Normal 5.0-7.0 [facility] Comment on above: Performed By: #### U MAC #### Testing performed at [address] [address] URINE HEMOGLOBIN Negative Normal NEGATIVE [facility] Comment on above: Performed By: #### U MAC #### Testing performed at [address] [address] URINE KETONE TRACE Abnormal NEGATIVE [facility] Comment on above: Performed By: #### U MAC #### Testing performed at [address] [address] URINE LEUKOTEST Negative Normal NEGATIVE [facility] Comment on above: Performed By: #### U MAC #### Testing performed at [address] [address] URINE NITRATES Negative Normal NEGATIVE [facility] Comment on above: Performed By: #### U MAC #### Testing performed at [address] [address] URINE SPEC GRAVITY 1.025 Normal 1.010-1.025 [facility] Comment on above: Performed By: #### U MAC #### Testing performed at [address] [address] URINE TOTAL PROTEIN Negative Normal NEGATIVE [facility] Comment on above: Performed By: #### U MAC #### Testing performed at [address] [address] Urobilinogen Qn (U) 0.2 {Junior'U}/dL Normal 0.2-1.0 [facility] Comment on above: Performed By: #### U MAC #### Testing performed at [address] [address] ANTIHISTIONE ANTIBODIESon Anti-histone Abs 0.5 Units Normal 0.0-0.9 [facility] Comment on above: Result Comment: Nega tive <1.0 Weak Positive 1.0 - 1.5 Moderate Positive 1.6 - 2.5 Strong Positive >2.5 Performed By: #### C K, CRP #### [facility] [address] [place] [address] Dr. Irene Cedillo LARGE JOINT/BURSA INJECTION AND/OR ASPIRATION: R kneekaterin 11-30-2022 Sagar Krause MD 11/30/2022 3:00 PM [...] complications The patient was prepped with Betadine. [facility] Radiology Study observation (narrative) [facility] US PELVIS AND TRANSVAGon US PELVIS AND TRANSVAG EXAM: US PELVIS AND TRANSVAG HISTORY: Left lower quadrant pain COMPARISON: None. TECHNIQUE: Pelvic sonography was performed utilizing grayscale and color Doppler technique. FINDINGS/ IMPRESSION: 1. Hysterectomy. 2. Ovaries not visualized. 3. No adnexal mass. 4. No significant free fluid. Electronically authenticated by: BRI BERGER Date: 2022-11-10 15:54 Normal [facility] LUPUS ANTICOAGULANT PROFILEo n 10-27-2022 Anticardiolipin Ab, IgG <10 Normal [facility] Comment on above: Result Comment: Refe rence Range: Negative: <15 Indeterminate: 15 - 20 Low to medium positive: >20 - 80 High positive: >80 Performed By: #### L UPUSAC #### [facility] [address] [address] [address] Irene Cedlilo Anticardiolipin Ab, IgM <10 Normal [facility] Comment on above: Result Comment: Refe rence Range: Negative: <13 Indeterminate: 13 - 20 Low to medium positive: >20 - 80 High positive: >80 Performed By: #### L UPUSAC #### [facility] [address] [address] [address] Irene Cedillo APTT 1:1 CRUDE OIL DRIVER NIY Normal [facility] Comment on above: Result Comment: Test ing Not Indicated This test was developed and its performance characteristics determined by [facility]. It has not been cleared or approved by the Food and Drug Administration. Performed By: #### L UPUSAC #### [facility] [address] [place] [address] Dr. Irene Cedillo APTT 1:1 Saline NIY Normal [facility] Comment on above: Result Comment: Test ing Not Indicated This test was developed and its performance characteristics determined by [facility]. It has not been cleared or approved by the Food and Drug Administration. Performed By: #### L UPUSAC #### [facility] [address] [place] [address] Dr. Irene Cedillo aPTT Coag (Bld) [Time] 23.0 s Normal [facility] Comment on above: Result Comment: This test has not been validated for monitoring unfractionated heparin therapy. aPTT-based therapeutic ranges for unfractionated heparin therapy have not been established. Consider ordering Heparin anti-Xa (unfractionated). Reference Range: 18 years and older: 22.9 - 30.2 Performed By: #### L UPUSAC #### [facility] [address] [place] [address] Dr. Irene Cedillo Beta-2 Glycoprotein I, IgA <10 Normal [facility] Comment on above: Result Comment: The reference interval reflects a 3SD or 99th percentile interval. Reference Range: Negative: <26 Performed By: #### L UPUSAC #### [facility] [address] [place] [address] Dr. Irene Cedillo Beta-2 Glycoprotein I, IgG <10 Normal [facility] Comment on above: Result Comment: The reference interval reflects a 3SD or 99th percentile interval. Reference Range: Negative: <21 Performed By: #### L UPUSAC #### [facility] [address] [place] [address] Dr. Irene Cedillo Beta-2 Glycoprotein I, IgM <10 Normal [facility] Comment on above: Result Comment: The reference interval reflects a 3SD or 99th percentile interval. Reference Range: Negative: <33 Performed By: #### L UPUSAC #### [facility] [address] [address] [address] Irene Cedillo DRVVT Confirm Seconds NIY Normal [facility] Comment on above: Result Comment: Test ing Not Indicated Performed By: #### L UPUSAC #### [facility] [address] [place] [address] Dr. Irene Cedillo DRVVT Ratio NIY Normal [facility] Comment on above: Result Comment: Test ing Not Indicated Performed By: #### L UPUSAC #### [facility] [address] [place] [address] Dr. Irene Cedillo DRVVT Screen Seconds 33.2 sec Normal [facility] Comment on above: Result Comment: Refe rence Range: <= 47.0 Performed By: #### L UPUSAC #### [facility] [address] [place] [address] Dr. Irene Cedillo Hexagonal Phospholipid Neutral [address] [facility] Comment on above: Result Comment: This value is NEGATIVE. This is a qualitative assay and is therefore reported as positive for lupus anticoagulant or negative. The quantitative value is provided as an aid in diagnosis. Reference Range: 0 - 11 Performed By: #### L UPUSAC #### [facility] [address] [place] [address] Dr. Irene Cedillo INR Coag (PPP) [Relative time] 0.9 {INR} Normal [facility] Comment on above: Result Comment: Refe rence Range: >1 month: 0.9 - 1.2 Performed By: #### L UPUSAC #### [facility] [address] [place] [address] Dr. Irene Cedillo LAC Interpretation Comment Normal [facility] Comment on above: Result Comment: A arelis pus anticoagulant is not detected. All antiphospholipid antibodies evaluated are normal. As antibody titers may fluctuate with time, repeat testing may be indicated. Please contact [facility] if further clarification is needed. Performed By: #### L UPUSAC #### [facility] [address] [place] [address] Dr. Irene Cedillo Platelet Neutralization 0.0 sec Normal [facility] Comment on above: Result Comment: Refe rence Range: 0.0 - 3.0 This test was developed and its performance characteristics determined by [facility]. It has not been cleared or approved by the Food and Drug Administration. Performed By: #### L UPUSAC #### [facility] [address] [place] [address] Dr. Irene Cedillo PT Coag (PPP) [Time] 10.0 s Normal [facility] Comment on above: Result Comment: Refe rence Range: 18 years and older: 9.1 - 12.0 Performed By: #### L UPUSAC #### [facility] [address] [place] [address] Dr. Irene Cedillo Thrombin Time 15.[address] [facility] Comment on above: Result Comment: Refe rence Range: 0.0 - 23.0 Performed By: #### L UPUSAC #### [facility] [address] [place] [address] Dr. Irene Cedillo ADRI by IFAon 10-23-2022 Antinuclear Antibodies, IFA Positive Abnormal [facility] Comment on above: Result Comment: Nega tive <1:80 Borderline 1:80 Positive >1:80 Performed By: #### T SH #### [facility] [address] [place] [address] Dr. Irene Cedillo Centriole Pattern Normal [facility] Comment on above: Performed By: #### T SH #### [facility] [address] [place] [address] Dr. Irene Cedillo Centromere Pattern Normal [facility] Comment on above: Performed By: #### T SH #### [facility] [address] [place] [address] Dr. Irene Cedillo Homogeneous Pattern 1:320 Critically high [facility] Comment on above: Result Comment: ICAP nomenclature: AC-1 Performed By: #### T SH #### [facility] [address] [place] [address] Dr. Irene Cedillo Midbody Pattern Normal [facility] Comment on above: Performed By: #### T SH #### [facility] [address] [place] [address] Dr. Irene Cedillo Note: Comment Normal [facility] Comment on above: Result Comment: For more [...] titers Nucleosomes, Histones Drug-induced SLE Speckled Sm, PRODUCTION ASSISTANT, SCL-70, SLE,MCTD,PSS (diffuse form), SS-A/SS-B Sjogrens Nucleolar SCL-70, PM-1/SCL High titers Scleroderma, PM/DM Centromere Centromere PSS (limited form) w/Crest syndrome variable Nuclear Dot [id number] Primary Biliary Cirrhosis Nuclear GP210, Primary Biliary Cirrhosis Membrane margie A,B,C Performed By: #### T SH #### [facility] [address] [place] [address] Dr. Irene Cedillo Nuclear Dot Pattern Normal [facility] Comment on above: Performed By: #### T SH #### [facility] [address] [place] [address] Dr. Irene Cedillo Nuclear Membrane Pattern Normal [facility] Comment on above: Performed By: #### T SH #### [facility] [address] [place] [address] Dr. Irene Cedillo Nucleolar Pattern Normal [facility] Comment on above: Performed By: #### T SH #### [facility] [address] [place] [address] Dr. Irene Cedillo PCNA Pattern Normal [facility] Comment on above: Performed By: #### T SH #### [facility] [address] [place] [address] Dr. Irene Cedillo Speckled Pattern Normal [facility] Comment on above: Performed By: #### T SH #### [facility] [address] [place] [address] Dr. Irene Cedillo Spindle Apparatus Pattern Normal [facility] Comment on above: Performed By: #### T SH #### [facility] [address] [place] [address] Dr. Irene Cedillo ALDOLASEon 10-19-2022 Aldolase 3.6 U/L Normal 3.3-10.3 [facility] Comment on above: Performed By: #### T SH #### [facility] [address] [address] [address] Irene Cedillo ANTI-CENTROMERE B ABon 10-19 Anti-Centromere B Antibodies <0.2 Normal 0.0-0.9 [facility] Comment on above: Performed By: #### S EDR #### [facility] [address] [address] [address] Irene Cedillo ANTI-DNA DS ABon 10-19-2022 Anti-DNA (DS) Ab Qn 1 IU/mL Normal 0-9 [facility] Comment on above: Result Comment: Nega tive <5 Equivocal 5 - 9 Positive >9 Performed By: #### C CPAB #### [facility] [address] [place] [address] Dr. Irene Cedillo ANTI-NICOLLE-1on 10-19-2022 Anti-Nicolle-1 <0.2 Normal 0.0-0.9 [facility] Comment on above: Performed By: #### A NTI-NICOLLE #### [facility] [address] [address] [address] Ierne Cedillo ANTICHROMATIN ANTIBODIESon 0 10-19-2022 Antichromatin Antibodies 0.5 AI Normal 0.0-0.9 [facility] Comment on above: Performed By: #### C K, CRP #### [facility] [address] [place] [address] Dr. Irene Cedillo ANTIEXTRACTABLE NUCLEAR ANTI BODIESon 10-19-2022 PRODUCTION ASSISTANT Antibodies <0.2 Normal 0.0-0.9 [facility] Comment on above: Performed By: #### H PYLORI #### [facility] [address] [place] [address] Dr. Irene Cedillo Performed By: #### C CPAB #### [facility] [address] [place] [address] Dr. Irene Cedillo Murray Antibodies <0.2 Normal 0.0-0.9 [facility] Comment on above: Performed By: #### H PYLORI #### [facility] [address] [place] [address] Dr. Irene Cedillo Performed By: #### C CPAB #### [facility] [address] [place] [address] Dr. Irene Cedillo ANTISCLERODERMA ABon 023 Antiscleroderma-70 Antibodies <0.2 Normal 0.0-0.9 [facility] Comment on above: Performed By: #### A NSCLER #### [facility] [address] [place] [address] Dr. Irene Cedillo C3 and C4 COMPLEMENTon 10-19 Complement C3, Serum 171 mg/dL Critically high 82-167 [facility] Comment on above: Performed By: #### H PYLORI #### [facility] [address] [place] [address] Dr. Irene Cedillo Complement C4, Serum 41 mg/dL Critically high 12-38 [facility] Comment on above: Performed By: #### H PYLORI #### [facility] [address] [place] [address] Dr. Irene Cedillo COMPLEMENT TOTAL (CH50)on Complement, Total (CH50) >60 Normal >41 [facility] Comment on above: Result Comment: Age Male [...] Performed By: #### C K, CRP #### [facility] [address] [place] [address] Dr. Irene Cedillo CYCLIC CITRULLINATED PEPTIDE AB (CCP)on 10-19-2022 CCP Antibodies IgG/IgA 3 units Normal 0-19 [facility] Comment on above: Result Comment: Nega tive <20 Weak positive 20 - 39 Moderate positive 40 - 59 Strong positive >59 Performed By: #### C CPAB #### [facility] [address] [place] [address] Dr. Irene Cedillo MITICHONDRIAL (M2) ANTIBODYo n 10-19-2022 Mitochondrial (M2) Antibody <20.0 Normal 0.0-20.0 [facility] Comment on above: Result Comment: Nega tive 0.0 - 20.0 Equivocal 20.1 - 24.9 Positive >24.9 . Mitochondrial (M2) Antibodies are found in 90-96% of patients with primary biliary cirrhosis. Performed By: #### C K, CRP #### [facility] [address] [place] [address] Dr. Irene Cedillo RHEUMATOID FACTORon 10-19-19 23 RA Latex Turbid. <10.0 Normal <14.0 [facility] Comment on above: Performed By: #### C CPAB #### [facility] [address] [place] [address] Dr. Irene Cedillo RPR QUANTon 10-19-2022 Rapid Plasma Reagin, Quant Non-Reactive Normal NonRea<1:1 [facility] Comment on above: Result Comment: Plea se Note: This test does not meet current guidelines for screening and diagnosis of syphilis. This test is intended for following treatment response in patients being treated for syphilis infection. To screen for syphilis infection, a reflex cascade that includes both RPR and a treponema-specific assay should be utilized, such as Treponema pallidum (Syphilis) Screening [place] (678147) or Rapid Plasma Reagin (RPR) Test With Reflex to Quantitative RPR and Confirmatory Treponema pallidum Antibodies (467713). Performed By: #### T SH #### [facility] [address] [place] [address] Dr. Irene Cedillo SJOGRENS ANTIBODIES (Anti SS A/B)on 10-19-2022 Sjogren's Anti-SS-A <0.2 Normal 0.0-0.9 [facility] Comment on above: Performed By: #### S EDR #### [facility] [address] [place] [address] Dr. Irene Cedillo Sjogren's Anti-SS-B <0.2 Normal 0.0-0.9 [facility] Comment on above: Performed By: #### S EDR #### [facility] [address] [place] [address] Dr. Irene Cedillo SMOOTH MUSCLE ANTIBODYon Actin (Smooth Muscle) Antibody 5 Units Normal 0-19 [facility] Comment on above: Result Comment: Nega tive 0 - 19 Weak positive 20 - 30 Moderate to strong positive >30 . Actin Antibodies are found in 52-85% of patients with autoimmune hepatitis or chronic active hepatitis and in 22% of patients with primary biliary cirrhosis. Performed By: #### C K, CRP #### [facility] [address] [place] [address] Dr. Irene Cedillo THYROGLOBULIN ABon Thyroglobulin Antibody <1.0 Normal 0.0-0.9 [facility] Comment on above: Result Comment: Thyr oglobulin Antibody measured by [employer] Performed By: #### C CPAB #### [facility] [address] [place] [address] Dr. Irene Cedillo THYROID PEROXIDASE ABon Thyroid Peroxidase (TPO) Ab 11 IU/mL Normal 0-34 [facility] Comment on above: Performed By: #### T SH #### [facility] [address] [place] [address] Dr. Irene Cedillo CBC AUTO DIFFon 10-18-2022 BASO # 0.1 103/ul Normal 0.0-0.1 [facility] Comment on above: Performed By: #### C K, CRP #### [facility] [address] [place] [address] Dr. Irene Cedillo Basophils/100 WBC (Bld) 0.7 % Normal 0.2-2.0 [facility] Comment on above: Performed By: #### C K, CRP #### [facility] [address] [place] [address] Dr. Irene Cedillo EO # 0.2 103/ul Normal 0.0-0.7 [facility] Comment on above: Performed By: #### C K, CRP #### [facility] [address] [place] [address] Dr. Irene Cedillo Eosinophils/100 WBC (Bld) 2.8 % Normal 0.9-7.0 [facility] Comment on above: Performed By: #### C K, CRP #### [facility] [address] [place] [address] Dr. Irene Cedillo Erythrocyte distribution width (RBC) [Ratio] 13.4 % Normal 11.0-15.0 [facility] Comment on above: Performed By: #### C K, CRP #### [facility] [address] [place] [address] Dr. Irene Cedillo Hematocrit (Bld) [Volume fraction] 43.6 % Normal 36.0-48.0 [facility] Comment on above: Performed By: #### C K, CRP #### [facility] [address] [place] [address] Dr. Irene Cedillo Hemoglobin (Bld) [Mass/Vol] 14.1 g/dL Normal 12.0-16.0 [facility] Comment on above: Performed By: #### C K, CRP #### [facility] [address] [place] [address] Dr. Irene Cedillo IG # 0.01 10e3/ul Normal 0.00-0.03 [facility] Comment on above: Performed By: #### C K, CRP #### [facility] [address] [place] [address] Dr. Irene Cedillo IG % 0.1 % Normal 0.0-0.5 [facility] Comment on above: Performed By: #### C K, CRP #### [facility] [address] [place] [address] Dr. Irene Cedillo LYMPH # 2.5 103/ul Normal 1.2-3.8 [facility] Comment on above: Performed By: #### C K, CRP #### [facility] [address] [place] [address] Dr. Irene Cedillo Lymphocytes/100 WBC (Bld) 35.9 % Normal 20.5-60.0 [facility] Comment on above: Performed By: #### C K, CRP #### [facility] [address] [place] [address] Dr. Irene Cedillo MANUAL DIFF REQ NO Normal [facility] Comment on above: Performed By: #### C K, CRP #### [facility] [address] [place] [address] Dr. Irene Cedillo MCH (RBC) [Entitic mass] 29.6 pg Normal 26.7-34.0 [facility] Comment on above: Performed By: #### C K, CRP #### [facility] [address] [place] [address] Dr. Irene Cedillo MCHC (RBC) [Mass/Vol] 32.3 g/dL Normal 29.9-35.2 [facility] Comment on above: Performed By: #### C K, CRP #### [facility] [address] [place] [address] Dr. Irene Cedillo MCV (RBC) [Entitic vol] 91.6 fL Normal 81.0-99.0 [facility] Comment on above: Performed By: #### C K, CRP #### [facility] [address] [place] [address] Dr. Irene Cedillo MONO # 0.4 103/ul Normal 0.3-0.8 [facility] Comment on above: Performed By: #### C K, CRP #### [facility] [address] [place] [address] Dr. Irene Cedillo Monocytes/100 WBC (Bld) 5.2 % Normal 1.7-12.0 [facility] Comment on above: Performed By: #### C K, CRP #### [facility] [address] [place] [address] Dr. Irene Cedillo NEUT # 3.8 103/ul Normal 1.4-6.5 [facility] Comment on above: Performed By: #### C K, CRP #### [facility] [address] [place] [address] Dr. Irene Cedillo Neutrophils/100 WBC (Bld) 55.3 % Normal 43.0-75.0 [facility] Comment on above: Performed By: #### C K, CRP #### [facility] [address] [place] [address] Dr. Irene Cedillo Platelet mean volume (Bld) [Entitic vol] 9.7 fL Normal 9.5-13.5 [facility] Comment on above: Performed By: #### C K, CRP #### [facility] [address] [place] [address] Dr. Irene Cedillo PLT 271 103/ul Normal 150-450 [facility] Comment on above: Performed By: #### C K, CRP #### [facility] [address] [place] [address] Dr. Irene Cedillo RBC 4.76 106/ul Normal 4.20-5.40 [facility] Comment on above: Performed By: #### C K, CRP #### [facility] [address] [place] [address] Dr. Irene Cedillo WBC 6.9 103/ul Normal 4.0-11.0 [facility] Comment on above: Performed By: #### C K, CRP #### [facility] [address] [place] [address] Dr. Irene Cedillo CPKon 10-18-2022 CK [Catalytic activity/Vol] 57 U/L Normal 26-192 [facility] Comment on above: Performed By: #### T SH #### [facility] [address] [place] [address] Dr. Irene Cedillo CRPon 10-18-2022 CRP 0.8 mg/dL Normal <=1.0 [facility] Comment on above: Performed By: #### T SH #### [facility] [address] [place] [address] Dr. Irene Cedillo FREE T4on 10-18-2022 Free T4 [Mass/Vol] 1.07 ng/dL Normal 0.76-1.46 [facility] Comment on above: Performed By: #### C K, CRP #### [facility] [address] [place] [address] Dr. Irene Cedillo PROF 14(COMP METB)on 023 Albumin [Mass/Vol] 3.9 g/dL Normal 3.4-5.0 [facility] Comment on above: Performed By: #### T SH #### [facility] [address] [place] [address] Dr. Irene Cedillo Albumin/Globulin [Mass ratio] 1.1 {ratio} Normal [facility] Comment on above: Performed By: #### T SH #### [facility] [address] [place] [address] Dr. Irene Cedillo ALP [Catalytic activity/Vol] 90 U/L Normal 46-116 [facility] Comment on above: Performed By: #### T SH #### [facility] [address] [place] [address] Dr. Irene Cedillo ALT [Catalytic activity/Vol] 32 U/L Normal 14-59 [facility] Comment on above: Performed By: #### T SH #### [facility] [address] [place] [address] Dr. Irene Cedillo Anion gap [Moles/Vol] 13.8 mmol/L Normal [facility] Comment on above: Performed By: #### T SH #### [facility] [address] [place] [address] Dr. Irene Cedillo AST [Catalytic activity/Vol] 26 U/L Normal 15-37 [facility] Comment on above: Performed By: #### T SH #### [facility] [address] [place] [address] Dr. Irene Cedillo Bilirubin [Mass/Vol] 0.2 mg/dL Normal 0.2-1.0 [facility] Comment on above: Performed By: #### T SH #### [facility] [address] [place] [address] Dr. Irene Cedillo Calcium [Mass/Vol] 9.1 mg/dL Normal 8.5-10.1 [facility] Comment on above: Performed By: #### T SH #### [facility] [address] [place] [address] Dr. Irene Cedillo Chloride [Moles/Vol] 102 mmol/L Normal 98-107 [facility] Comment on above: Performed By: #### T SH #### [facility] [address] [address] [address] Irene Cedillo CO2 [Moles/Vol] 25.4 mmol/L Normal 21.0-32.0 [facility] Comment on above: Performed By: #### T SH #### [facility] [address] [address] [address] Irene Cedillo Creatinine [Mass/Vol] 0.64 mg/dL Normal 0.55-1.02 [facility] Comment on above: Performed By: #### T SH #### [facility] [address] [address] [address] Irene Cedillo EGFR-AF INDIAN >60 Normal >=60 [facility] Comment on above: Performed By: #### T SH #### [facility] [address] [place] [address] Dr. Irene Cedillo EGFR-NON AF INDIAN >60 Normal >=60 [facility] Comment on above: Performed By: #### T SH #### [facility] [address] [address] [address] Irene Cedillo Globulin (S) [Mass/Vol] 3.6 g/dL Normal [facility] Comment on above: Performed By: #### T SH #### [facility] [address] [place] [address] Dr. Irene Cedillo Glucose [Mass/Vol] 132 mg/dL Critically high 74-106 [facility] Comment on above: Performed By: #### T SH #### [facility] [address] [place] [address] Dr. Irene Cedillo Potassium [Moles/Vol] 4.2 mmol/L Normal 3.5-5.1 [facility] Comment on above: Performed By: #### T SH #### [facility] [address] [place] [address] Dr. Irene Cedillo Protein [Mass/Vol] 7.5 g/dL Normal 6.4-8.2 [facility] Comment on above: Performed By: #### T SH #### [facility] [address] [place] [address] Dr. Irene Cedillo Sodium [Moles/Vol] 137 mmol/L Normal 136-145 [facility] Comment on above: Performed By: #### T SH #### [facility] [address] [place] [address] Dr. Irene Cedillo Urea nitrogen [Mass/Vol] 19.0 mg/dL Critically high 7.0-18.0 [facility] Comment on above: Performed By: #### T SH #### [facility] [address] [place] [address] Dr. Irene Cedillo Urea nitrogen/Creatinine [Mass ratio] 29.7 mg/mg Normal [facility] Comment on above: Performed By: #### T SH #### [facility] [address] [place] [address] Dr. Irene Cedillo PROTIMEon 10-18-2022 INR Coag (PPP) [Relative time] {INR} Normal [facility] Comment on above: Performed By: #### C K, CRP #### [facility] [address] [place] [address] Dr. Irene Cedillo INR GUIDELINES SEE BELOW Normal [facility] Comment on above: Result Comment: JUAN RAMON RED INR: 2.0 - 3.0 CONDITIONS NOT LISTED BELOW 2.5 - 3.5 FOR PROSTHETIC HEART VALVE REPLACEMENT 2.5 - 3.5 RECURRENT THROMBOSIS Performed By: #### C K, CRP #### [facility] [address] [place] [address] Dr. Irene Cedillo PT Coag (PPP) [Time] 9.8 s Normal 9.0-11.6 [facility] Comment on above: Performed By: #### C K, CRP #### [facility] [address] [place] [address] Dr. Irene Cedillo PTTon 10-18-2022 aPTT Coag (Bld) [Time] 26.0 s Normal 22.3-36.2 [facility] Comment on above: Performed By: #### C K, CRP #### [facility] [address] [place] [address] Dr. Irene Cedillo SED RATE WESTERGRENon 2022 SED RATE 42 mm/hr Critically high <=30 [facility] Comment on above: Performed By: #### S EDR #### [facility] [address] [place] [address] Dr. Irene Cedillo TSHon 10-18-2022 TSH 0.718 uIU/mL Normal 0.358-3.740 [facility] Comment on above: Performed By: #### T SH #### [facility] [address] [place] [address] Dr. Irene Cedillo UA RANDOM W/MICROSCOPICon BACTERIA NONE SEEN Normal NONE SEEN [facility] Comment on above: Performed By: #### C CPAB #### [facility] [address] [place] [address] Dr. Irene Cedillo Bilirubin Ql (U) Negative Normal NEGATIVE [facility] Comment on above: Performed By: #### C CPAB #### [facility] [address] [place] [address] Dr. Irene Cedillo CAST NONE SEEN Normal NONE SEEN [facility] Comment on above: Performed By: #### C CPAB #### [facility] [address] [place] [address] Dr. Irene Cedillo Clarity (U) CLEAR Normal CLEAR [facility] Comment on above: Performed By: #### C CPAB #### [facility] [address] [place] [address] Dr. Irene Cedillo Color (U) LT. YELLOW Normal YELLOW [facility] Comment on above: Performed By: #### C CPAB #### [facility] [address] [place] [address] Dr. Irene Cedillo Crystals LM Nom (Urine sed) NONE SEEN Normal NONE SEEN [facility] Comment on above: Performed By: #### C CPAB #### [facility] [address] [place] [address] Dr. Irene Cedillo Epithelial cells LM Ql (Urine sed) NONE SEEN Normal NONE SEEN /RARE [facility] Comment on above: Performed By: #### C CPAB #### [facility] [address] [place] [address] Dr. Irene Cedillo Glucose Ql (U) Negative Normal NEGATIVE [facility] Comment on above: Performed By: #### C CPAB #### [facility] [address] [place] [address] Dr. Irene Cedillo Hemoglobin Ql (U) Negative Normal NEGATIVE [facility] Comment on above: Performed By: #### C CPAB #### [facility] [address] [place] [address] Dr. Irene Cedillo Ketones Ql (U) Negative Normal NEGATIVE [facility] Comment on above: Performed By: #### C CPAB #### [facility] [address] [place] [address] Dr. Irene Cedillo LEUKOCYTES Negative Normal NEGATIVE [facility] Comment on above: Performed By: #### C CPAB #### [facility] [address] [place] [address] Dr. Irene Cedillo MUCOUS NONE SEEN Normal NONE SEEN [facility] Comment on above: Performed By: #### C CPAB #### [facility] [address] [place] [address] Dr. Irene Cedillo Nitrite Ql (U) Negative Normal NEGATIVE [facility] Comment on above: Performed By: #### C CPAB #### [facility] [address] [place] [address] Dr. Irene Cedillo pH (U) 5.5 [pH] Normal 5-9 [facility] Comment on above: Performed By: #### C CPAB #### [facility] [address] [place] [address] Dr. Irene Cedillo RBC 0-2 Normal 0-2 [facility] Comment on above: Performed By: #### C CPAB #### [facility] [address] [place] [address] Dr. Irene Cedillo SPEC GRAVITY 1.020 Normal 1.005-<=1.025 [facility] Comment on above: Performed By: #### C CPAB #### [facility] [address] [place] [address] Dr. Irene Cedillo UA PROTEIN Negative Normal NEGATIVE/ TRACE [facility] Comment on above: Performed By: #### C CPAB #### [facility] [address] [place] [address] Dr. Irene Cedillo Urobilinogen Qn (U) 0.2 {Junior'U}/dL Normal 0.2 - 1. 0 [facility] Comment on above: Performed By: #### C CPAB #### [facility] [address] [place] [address] Dr. Irene Cedillo WBC NONE SEEN Normal NONE SEEN [facility] Comment on above: Performed By: #### C CPAB #### [facility] [address] [place] [address] Dr. Irene Cedillo HLA B 27on 09-21-2022 HLA-B27 Negative Normal [facility] Comment on above: Result Comment: HLA- B*27 Negative B27 allele interpretation for all loci based on IMGT/HLA database version 3.44 This test was developed and its performance characteristics determined by [facility]. It has not been cleared or approved by the Food and Drug Administration. [facility] CLIA ID Number [id number] . This test was performed using PCR (Polymerase Chain Reaction)/SSOP (Sequence Specific Oligonucleotide Probes) technique. SBT (Sequence Based Typing) and/or SSP (Sequence Specific Primers) may be used as supplemental methods when necessary. Please contact [facility] Customer Service at if you have any questions. . Director of [facility] Laboratory Dr Kris Salinas, PhD Performed By: #### C CPAB #### [facility] [address] [place] [address] Dr. Irene Cedillo ADRI by IFAon 09-15-2022 Antinuclear Antibodies, IFA Positive Abnormal [facility] Comment on above: Result Comment: Nega tive <1:80 Borderline 1:80 Positive >1:80 Performed By: #### S EDR #### [facility] [address] [place] [address] Dr. Irene Cedillo Centriole Pattern Normal [facility] Comment on above: Performed By: #### S EDR #### [facility] [address] [place] [address] Dr. Irene Cedillo Centromere Pattern Normal [facility] Comment on above: Performed By: #### S EDR #### [facility] [address] [place], [place] [address] Dr. Irene Cedillo Homogeneous Pattern 1:160 Critically high [facility] Comment on above: Result Comment: ICAP nomenclature: AC-1 Performed By: #### S EDR #### [facility] [address] [place], [place] [address] Dr. Irene Cedillo Midbody Pattern Normal [facility] Comment on above: Performed By: #### S EDR #### [facility] [address] [place], [place] [address] Dr. Irene Cedillo Note: Comment Normal [facility] Comment on above: Result Comment: For more [...] titers Nucleosomes, Histones Drug-induced SLE Speckled Sm, PRODUCTION ASSISTANT, SCL-70, SLE,MCTD,PSS (diffuse form), SS-A/SS-B Sjogrens Nucleolar SCL-70, PM-1/SCL High titers Scleroderma, PM/DM Centromere Centromere PSS (limited form) w/Crest syndrome variable Nuclear Dot [id number] Primary Biliary Cirrhosis Nuclear GP210, Primary Biliary Cirrhosis Membrane margie A,B,C Performed By: #### S EDR #### [facility] [address] [place] [address] Dr. Irene Cedillo Nuclear Dot Pattern Normal [facility] Comment on above: Performed By: #### S EDR #### [facility] [address] [place] [address] Dr. Irene Cedillo Nuclear Membrane Pattern Normal [facility] Comment on above: Performed By: #### S EDR #### [facility] [address] [place] [address] Dr. Irene Cedillo Nucleolar Pattern Normal [facility] Comment on above: Performed By: #### S EDR #### [facility] [address] [place] [address] Dr. Irene Cedillo PCNA Pattern Normal [facility] Comment on above: Performed By: #### S EDR #### [facility] [address] [place] [address] Dr. Irene Cedillo Speckled Pattern Normal The [facility] Comment on above: Performed By: #### S EDR #### [facility] [address] [place] [address] Dr. Irene Cedillo Spindle Apparatus Pattern Normal [facility] Comment on above: Performed By: #### S EDR #### [facility] [address] [place] [address] Dr. Irene Cedillo CYCLIC CITRULLINATED PEPTIDE AB (CCP)on 09-15-2022 CCP Antibodies IgG/IgA 0 units Normal 0-19 [facility] Comment on above: Result Comment: Nega tive <20 Weak positive 20 - 39 Moderate positive 40 - 59 Strong positive >59 Performed By: #### C CPAB #### [facility] [address] [place] [address] Dr. Irene Cedillo RHEUMATOID FACTORon 09-15-19 23 RA Latex Turbid. <10.0 Normal <14.0 [facility] Comment on above: Performed By: #### C K, CRP #### [facility] [address] [place] [address] Dr. Irene Cedillo CBC AUTO DIFFon 09-13-2022 BASO # 0.0 103/ul Normal 0.0-0.1 [facility] Comment on above: Performed By: #### H PYLORI #### [facility] [address] [place] [address] Dr. Irene Cedillo Basophils/100 WBC (Bld) 0.4 % Normal 0.2-2.0 [facility] Comment on above: Performed By: #### H PYLORI #### [facility] [address] [place] [address] Dr. Irene Cedillo EO # 0.3 103/ul Normal 0.0-0.7 [facility] Comment on above: Performed By: #### H PYLORI #### [facility] [address] [place] [address] Dr. Irene Cedillo Eosinophils/100 WBC (Bld) 4.4 % Normal 0.9-7.0 [facility] Comment on above: Performed By: #### H PYLORI #### [facility] [address] [place] [address] [address] Irene Cedillo Erythrocyte distribution width (RBC) [Ratio] 13.2 % Normal 11.0-15.0 [facility] Comment on above: Performed By: #### H PYLORI #### [facility] [address] [place] [address] Dr. Irene Cedillo Hematocrit (Bld) [Volume fraction] 41.5 % Normal 36.0-48.0 [facility] Comment on above: Performed By: #### H PYLORI #### [facility] [address] [address] [address] Irene Cedillo Hemoglobin (Bld) [Mass/Vol] 14.0 g/dL Normal 12.0-16.0 [facility] Comment on above: Performed By: #### H PYLORI #### [facility] [address] [place] [address] Dr. Irene Cedillo IG # 0.02 10e3/ul Normal 0.00-0.03 [facility] Comment on above: Performed By: #### H PYLORI #### [facility] [address] [place] [address] Dr. Irene Cedillo IG % 0.3 % Normal 0.0-0.5 [facility] Comment on above: Performed By: #### H PYLORI #### [facility] [address] [place] [address] Dr. Irene Cedillo LYMPH # 2.5 103/ul Normal 1.2-3.8 [facility] Comment on above: Performed By: #### H PYLORI #### [facility] [address] [place] [address] Dr. Irene Cedillo Lymphocytes/100 WBC (Bld) 34.4 % Normal 20.5-60.0 [facility] Comment on above: Performed By: #### H PYLORI #### [facility] [address] [place] [address] Dr. Irene Cedillo MANUAL DIFF REQ NO Normal [facility] Comment on above: Performed By: #### H PYLORI #### [facility] [address] [address] [address] Irene Cedillo MCH (RBC) [Entitic mass] 30.0 pg Normal 26.7-34.0 [facility] Comment on above: Performed By: #### H PYLORI #### [facility] [address] [place] [address] Dr. Irene Cedillo MCHC (RBC) [Mass/Vol] 33.7 g/dL Normal 29.9-35.2 [facility] Comment on above: Performed By: #### H PYLORI #### [facility] [address] [place] [address] Dr. Irene Cedillo MCV (RBC) [Entitic vol] 88.9 fL Normal 81.0-99.0 [facility] Comment on above: Performed By: #### H PYLORI #### [facility] [address] [place] [address] Dr. Irene Cedillo MONO # 0.4 103/ul Normal 0.3-0.8 [facility] Comment on above: Performed By: #### H PYLORI #### [facility] [address] [place] [address] Dr. Irene Cedillo Monocytes/100 WBC (Bld) 5.6 % Normal 1.7-12.0 [facility] Comment on above: Performed By: #### H PYLORI #### [facility] [address] [place] [address] Dr. Irene Cedillo NEUT # 4.0 103/ul Normal 1.4-6.5 [facility] Comment on above: Performed By: #### H PYLORI #### [facility] [address] [place] [address] Dr. Irene Cedillo Neutrophils/100 WBC (Bld) 54.9 % Normal 43.0-75.0 [facility] Comment on above: Performed By: #### H PYLORI #### [facility] [address] [place] [address] Dr. Irene Cedillo Platelet mean volume (Bld) [Entitic vol] 9.6 fL Normal 9.5-13.5 [facility] Comment on above: Performed By: #### H PYLORI #### [facility] [address] [address] [address] Irene Cedillo PLT 314 103/ul Normal 150-450 [facility] Comment on above: Performed By: #### H PYLORI #### [facility] [address] [place] [address] Dr. Irene Cedillo RBC 4.67 106/ul Normal 4.20-5.40 [facility] Comment on above: Performed By: #### H PYLORI #### [facility] [address] [address] [address] Irene Cedillo WBC 7.3 103/ul Normal 4.0-11.0 [facility] Comment on above: Performed By: #### H PYLORI #### [facility] [address] [place] [address] Dr. Irene Cedillo CRPon 09-13-2022 CRP 0.3 mg/dL Normal <=1.0 [facility] Comment on above: Performed By: #### C K, CRP #### [facility] [address] [place] [address] Dr. Irene Cedillo RENAL FUNCTION PANELon 09-13 Albumin [Mass/Vol] 3.7 g/dL Normal 3.4-5.0 [facility] Comment on above: Performed By: #### R ENAL #### [facility] [address] [place] [address] Dr. Irene Cedillo Calcium [Mass/Vol] 9.3 mg/dL Normal 8.5-10.1 [facility] Comment on above: Performed By: #### R ENAL #### [facility] [address] [place] [address] Dr. Irene Cedillo Chloride [Moles/Vol] 105 mmol/L Normal 98-107 [facility] Comment on above: Performed By: #### R ENAL #### [facility] [address] [place] [address] Dr. Irene Cedillo CO2 [Moles/Vol] 30.5 mmol/L Normal 21.0-32.0 The [facility] Comment on above: Performed By: #### R ENAL #### [facility] [address] [address] [address] Irene Cedillo Creatinine [Mass/Vol] 0.64 mg/dL Normal 0.55-1.02 [facility] Comment on above: Performed By: #### R ENAL #### [facility] [address] [address] [address] Irene Cedillo EGFR-AF INDIAN >60 Normal >=60 [facility] Comment on above: Performed By: #### R ENAL #### [facility] [address] [address] [address] Irene Cedillo EGFR-NON AF INDIAN >60 Normal >=60 [facility] Comment on above: Performed By: #### R ENAL #### [facility] [address] [place] [address] Dr. Irene Cedillo Glucose [Mass/Vol] 130 mg/dL Critically high 74-106 [facility] Comment on above: Performed By: #### R ENAL #### [facility] [address] [place] [address] Dr. Irene Cedillo Phosphate [Mass/Vol] 3.9 mg/dL Normal 2.6-4.7 [facility] Comment on above: Performed By: #### R ENAL #### [facility] [address] [place] [address] Dr. Irene Cedillo Potassium [Moles/Vol] 4.0 mmol/L Normal 3.5-5.1 [facility] Comment on above: Performed By: #### R ENAL #### [facility] [address] [place] [address] Dr. Irene Cedillo Sodium [Moles/Vol] 143 mmol/L Normal 136-145 [facility] Comment on above: Performed By: #### R ENAL #### [facility] [address] [address] [address] Irene Cedillo Urea nitrogen [Mass/Vol] 16.0 mg/dL Normal 7.0-18.0 [facility] Comment on above: Performed By: #### R ENAL #### [facility] [address] [place] [address] Dr. Irene Cedillo SED RATE [facility] 2022 SED RATE 20 mm/hr Normal <=30 [facility] Comment on above: Performed By: #### C K, CRP #### [facility] [address] [address] [address] Irene Cedillo MRI ANKLE LT WO [...] by: TONY DICKINSON Date: 2022-08-26 09:36 Normal [facility] MG MAMM SCREEN 3D RIAN CADon 08-08-2022 MG MAMM SCREEN 3D RIAN CAD Patient: MEILY MACIAS Exam Date: 08/08/2022 : 1960 Gender:F Ordering : DR. KENDRA MCKINLEY M.D. Admission #: [id number] Family : DR NETTA MONTOYA M.D. Order #: [id number] CLICK HERE TO VIEW EXAM RADIOLOGY REPORT [...] breast cancer at age 78. LOCATION: [facility] BREAST COMPOSITION: Heterogeneously dense,which may obscure small [...] M.D. on 08/09/2022 at 15:10 Normal [facility] GLYCOHEMOGLOBIN A1Con 2021 ADA RECOMMENDATION SEE BELOW Normal [facility] Comment on above: Result Comment: ADA RECOMMENDED LIMIT 4.0 - 6.0 ADA THERAPEUTIC TARGET < 7.0 ACTION SUGGESTED > 7.0 Performed By: #### C CPAB #### [facility] [address] [address] [address] Irene Cedillo Glucose [Mass/Vol] 128 mg/dL Normal [facility] Comment on above: Performed By: #### C CPAB #### [facility] [address] [address] [address] Irene Cedillo HbA1c (Bld) [Mass fraction] 6.1 % Normal 4.5-6.2 [facility] Comment on above: Performed By: #### C CPAB #### [facility] [address] [address] [address] Irene Cedillo XR FOOT RIAN MIN [...] PELON ALEXANDRE Date: 2022-07-06 06:21 Normal [facility] OVA AND PARASITE EXAMINATION on 04-13-2022 Ova + Parasite Exam Final report Normal [facility] Comment on above: Result Comment: Thes e results were obtained using wet preparation(s) and trichrome stained smear. This test does not include testing for Cryptosporidium parvum, Cyclospora, or Microsporidia. Performed By: #### S EDR #### [facility] [address] [address] [address] Ierne Cedillo Result 1 Comment Normal [facility] Comment on above: Result Comment: No o va, cysts, or parasites seen. . One negative specimen does not rule out the possibility of a parasitic infection. Performed By: #### S EDR #### [facility] [address] [address] [address] Irene Cedillo CALPROTECTIN, FECALon 2021 Calprotectin, Fecal 36 ug/g Normal 0-120 [facility] Comment on above: Result Comment: Conc entration Interpretation Follow-Up <16 - 50 ug/g Normal None >50 -120 ug/g Borderline Re-evaluate in 4-6 weeks >120 ug/g Abnormal Repeat as clinically indicated Performed By: #### C K, CRP #### [facility] [address] [place] [address] Dr. Irene Cedillo HELICOBACTER PYLORI AG STOOL on 04-12-2022 H. pylori Stool Ag, EIA Negative Normal Negative [facility] Comment on above: Performed By: #### H PYLORI #### [facility] [address] [place] [address] Dr. Irene Cedillo LACTOFERRIN FECAL QUANTon Lactoferrin, Fecal, Quant. <1.00 Normal 0.00-7.24 [facility] Comment on above: Result Comment: Re [...] (IBS). Performed By: #### T SH #### [facility] [address] [place] [address] Dr. Irene Cedillo C. DIFF PCRon 04-08-2022 C. DIFFICILE PCR Negative Normal NEGATIVE The [facility] Comment on above: Performed By: #### S EDR #### [facility] [address] [place] [address] Dr. Irene Cedillo GI PANEL (PCR)on 04-08-2022 Adenovirus F 40/41 Not detected Normal NOT DETECTED [facility] Comment on above: Performed By: #### S EDR #### [facility] [address] [place] [address] Dr. Irene Cedillo Astrovirus Not detected Normal NOT DETECTED [facility] Comment on above: Performed By: #### S EDR #### [facility] [address] [place] [address] Dr. Irene Cedillo C. Diff toxin A/B Not detected Normal NOT DETECTED [facility] Comment on above: Performed By: #### S EDR #### [facility] [address] [place] [address] Dr. Irene Cedillo Campylobacter Not detected Normal NOT DETECTED [facility] Comment on above: Performed By: #### S EDR #### [facility] [address] [address] [address] Irene Cedillo Cryptosporidium Not detected Normal NOT DETECTED [facility] Comment on above: Performed By: #### S EDR #### [facility] [address] [address] [address] Irene Cedillo Cyclos. Cayetanensis Not detected Normal NOT DETECTED [facility] Comment on above: Performed By: #### S EDR #### [facility] [address] [address] [address] Irene Cedillo E. Coli O157 Not Applicable Normal Not Applicable [facility] Comment on above: Performed By: #### S EDR #### [facility] [address] [place] [address] Dr. Irene Cedillo E. histolytica Not detected Normal NOT DETECTED [facility] Comment on above: Performed By: #### S EDR #### [facility] [address] [address] [address] Irene Cedillo EAEC Not detected Normal NOT DETECTED [facility] Comment on above: Performed By: #### S EDR #### [facility] [address] [place] [address] Dr. Irene Cedillo EIEC Not detected Normal NOT DETECTED [facility] Comment on above: Performed By: #### S EDR #### [facility] [address] [place] [address] Dr. Irene Cedillo EPEC Not detected Normal NOT DETECTED [facility] Comment on above: Performed By: #### S EDR #### [facility] [address] [place] [address] Dr. Irene Cedillo ETEC Not detected Normal NOT DETECTED [facility] Comment on above: Performed By: #### S EDR #### [facility] [address] [place] [address] Dr. Irene Cedillo G. Lamblia Not detected Normal NOT DETECTED [facility] Comment on above: Performed By: #### S EDR #### [facility] [address] [address] [address] Irene VIGIL CONTROLS PASSED Normal The [facility] Comment on above: Performed By: #### S EDR #### [facility] [address] [address] [address] Irene GRULLON HEADER GI PANEL BACTERIA Normal T [facility] Comment on above: Performed By: #### S EDR #### [facility] [address] [address] [address] Irene CALDERA ECOLI GI PANEL DIARRHEAGEN IC E.COLI / SHIGELLA Normal [facility] Comment on above: Performed By: #### S EDR #### [facility] [address] [address] [address] Irene CALDERA INFO SEE BELOW Normal [facility] Comment on above: Result Comment: EAEC - Enteroaggregative E. Coli EPEC- Enteropathogenic E. Coli ETEC- Enterotoxigenic E. Coli lt/st STEC- Shigella-like toxin-producing E. Coli stx1/stx2 EIEC- Shigella/Enteroinvasive E. Coli Performed By: #### S EDR #### [facility] [address] [address] [address] Irene CALDERA PARASITES GI PANEL PARASITES Normal [facility] Comment on above: Performed By: #### S EDR #### [facility] [address] [address] [address] Irene CALDERA VIRUS GI PANEL VIRUSES Normal [facility] Comment on above: Performed By: #### S EDR #### [facility] [address] [address] [address] Irene Cedillo Norovirus GI/GII Not detected Normal NOT DETECTED [facility] Comment on above: Performed By: #### S EDR #### [facility] [address] [place] [address] Dr. Irene Cedillo P. Shigelloides Not detected Normal NOT DETECTED [facility] Comment on above: Performed By: #### S EDR #### [facility] [address] [address] [address] Irene Cedillo Rotavirus A Not detected Normal NOT DETECTED [facility] Comment on above: Performed By: #### S EDR #### [facility] [address] [place] [address] Dr. Irene Cedillo Salmonella Not detected Normal NOT DETECTED [facility] Comment on above: Performed By: #### S EDR #### [facility] [address] [place] [address] Dr. Irene Cedillo Sapovirus Not detected Normal NOT DETECTED [facility] Comment on above: Performed By: #### S EDR #### [facility] [address] [place] [address] Dr. Irene Cedillo STEC Not detected Normal NOT DETECTED [facility] Comment on above: Performed By: #### S EDR #### [facility] [address] [place] [address] Dr. Irene Cedillo Vibrio Not detected Normal NOT DETECTED [facility] Comment on above: Performed By: #### S EDR #### [facility] [address] [place] [address] Dr. Irene Cedilol Vibrio Cholera Not detected Normal NOT DETECTED [facility] Comment on above: Performed By: #### S EDR #### [facility] [address] [place] [address] Dr. Irene Cedillo Y. Enterocolitica Not detected Normal NOT DETECTED [facility] Comment on above: Performed By: #### S EDR #### [facility] [address] [place] [address] Dr. Irene Cedillo BUNon 03-27-2022 Urea nitrogen [Mass/Vol] 20.0 mg/dL Critically high 7.0-18.0 [facility] Comment on above: Performed By: #### C K, CRP #### [facility] [address] [place] [address] Dr. Irene Cedillo CREATININEon 03-27-2022 Creatinine [Mass/Vol] 0.75 mg/dL Normal 0.55-1.02 [facility] Comment on above: Performed By: #### C K, CRP #### [facility] [address] [place], [place] [address] Dr. Irene Cedillo EGFR-AF INDIAN >60 Normal >=60 [facility] Comment on above: Performed By: #### C K, CRP #### [facility] [address] [place], [place] [address] Dr. Irene Cedillo EGFR-NON AF INDIAN >60 Normal >=60 [facility] Comment on above: Performed By: #### C K, CRP #### [facility] [address] [place], [place] [address] ABD/PELV W CONon 03-27-20 CT ABD/PELV W CON Indication: Abdomina l [...] and/or use of iterative reconstruction technique. Findings: Mass Communications Instructor: No acute abnormalities are seen. Liver/Biliary System: [...] CIELO GARCIA Date: 2022-03-27 21:37 Normal [facility] POINT OF CARE GLUCOSEon 03-10 Glucose [Mass/Vol] 173 mg/dL Critically high 74-106 T he [facility] Comment on above: Performed By: #### C CPAB #### [facility] [address] [place] [address] Dr. Irene Cedillo FSHon 02-25-2022 FSH 46.6 mIU/mL Normal [facility] Comment on above: Result Comment: Adul t Female: Follicular phase 3.5 - 12.5 Ovulation phase 4.7 - 21.5 Luteal phase 1.7 - 7.7 Postmenopausal 25.8 - 134.8 Performed By: #### C K, CRP #### [facility] [address] [place] [address] Dr. Irene Cedillo LUTEINIZING HORMONE (LH)on 0 02-25-2022 LH 33.3 mIU/mL Normal [facility] Comment on above: Result Comment: Adul t Female: Follicular phase 2.4 - 12.6 Ovulation phase 14.0 - 95.6 Luteal phase 1.0 - 11.4 Postmenopausal 7.7 - 58.5 Performed By: #### H PYLORI #### [facility] [address] [place] [address] [address] Irene Cedillo TESTOSTERONE, TOTALon 2021 Testosterone [Mass/Vol] 6 ng/dL Normal 3-67 [facility] Comment on above: Performed By: #### H PYLORI #### [facility] [address] [place] [address] Dr. Irene Cedillo THYROID PEROXIDASE ABon - Thyroid Peroxidase (TPO) Ab <8 Normal 0-34 [facility] Comment on above: Performed By: #### C K, CRP #### [facility] [address] [place] [address] Dr. Irene Cedillo FREE T3on 02-24-2022 FREE T3 2.47 pg/mlL Normal 2.18-3.98 [facility] Comment on above: Performed By: #### S EDR #### [facility] [address] [place] [address] Dr. Irene Cedillo LYME DISEASE AB EIA W REFLEX on 01-31-2022 Lyme Total Antibody,EIA Negative Normal Negative [facility] Comment on above: Result Comment: Lyme Antibody Negative No laboratory evidence of infection with B. burgdorferi (Lyme disease). Negative results may occur in patients recently infected (greater than or equal to 14 days) with B. burgdorferi. If recent infection is suspected, repeat testing on a new sample collected in 7 to 14 days is recommended. Performed By: #### T SH #### [facility] [address] [place] [address] Dr. Irene Cedillo CPKon 01-30-2022 CK [Catalytic activity/Vol] 76 U/L Normal 26-192 [facility] Comment on above: Performed By: #### C K, CRP #### [facility] [address] [place] [address] Dr. Irene Cedillo CRPon 01-30-2022 CRP 0.4 mg/dL Normal <=1.0 [facility] Comment on above: Performed By: #### C K, CRP #### [facility] [address] [place] [address] Dr. Irene Cedillo SED RATE WESTERGRENon 2021 SED RATE 8 mm/hr Normal <=30 [facility] Comment on above: Performed By: #### H PYLORI #### [facility] [address] [place] [address] Dr. Irene Cedillo C REACTIVE PROTEINon 021 CRP [Mass/Vol] 9.3 mg/L High 0.0-7.0 [facility] Comment on above: Performed By: #### 6 [id number] #### [facility] [address] [facility] [facility] [place] [address], [facility] KNEE LEFT 3 VWSon 09-06-2021 KNEE LEFT 3 [facility] Department of Radiology [address] [place] [address] ======== Patient Name: EMILY MACIAS : 1960 Sex: F Age: Race: White Pt. Location: Patient Status: Ordered Date: 09/06/2021 1:35:00 PM Completed Date: 09/06/2021 01:56 PM Requesting Provider: KIARA WILLETT Attending Provider: Report Copy To: Signs & Symptoms: M25.562 Pain in left knee I10 History: [place] Comments: Evaluate Exam: KNEE LEFT 3 [facility] ======== KNEE LEFT 3 [facility] 09/06/2021 1:56 PM CLINICAL INDICATIONS: M25.562 Pain [...] above Electronically signed: Olga Murray. Transcribed by: [email or web address], User Resident: Electronically Signed by: OLGA MURRAY @ 09/06/2021 03:09 PM Normal [facility] Comment on above: Order Comment: Evalu ate KNEE RIGHT 3 [facility] KNEE RIGHT 3 [facility] Department of Radiology [address] [place] [id number] ======== Patient Name: EMILY MACIAS : 1960 Sex: F Age: Race: White Pt. Location: Patient Status: Ordered Date: 09/06/2021 1:35:00 PM Completed Date: 09/06/2021 01:56 PM Requesting Provider: KIARA WILLETT Attending Provider: Report Copy To: Signs & Symptoms: M25.561 Pain in right knee I10 History: [place] Comments: Evaluate Exam: KNEE RIGHT 3 [facility] ======== KNEE RIGHT 3 [facility] 09/06/2021 1:56 PM CLINICAL INDICATIONS: M25.561 Pain [...] above Electronically signed: Olga Murray. Transcribed by: [email or web address], User Resident: Electronically Signed by: OLGA MURRAY @ 09/06/2021 03:08 PM Normal [facility] Comment on above: Order Comment: Evalu ate SEDIMENTATION RATEon 021 SED RATE 7 mm/hr Normal 0-20 [facility] Comment on above: Performed By: #### 5 [id number] #### [address] Vital Signs Date Time Vital Sign Value Performing Clinician Facility 12-26-2023 13:54-0400 Body height 165.1 cm Radha Irvin AGRONOMY PROFESSOR-MATERIAL CONTROLLER Work Phone: [employer] 12-26-2023 13:54-0400 Body mass index (BMI) [Ratio] 33.45 kg/m2 Radha Irvin AGRONOMY PROFESSOR-MATERIAL CONTROLLER Work Phone: [email or web address] [facility] 12-26-2023 13:54-0400 Body weight 91.17 kg Radha Irvin AGRONOMY PROFESSOR-MATERIAL CONTROLLER Work Phone: [employer] 08-13-2023 09:30-0500 Body height 161.93 cm Netta Montoya Other [facility] Other 08-13-2023 09:30-0500 Body mass index (BMI) [Ratio] 34.46 kg/m2 Netta Montoya Other [facility] Other 08-13-2023 09:30-0500 Body weight 90.36 kg Netta Montoya Other [employer] Other 08-13-2023 09:30-0500 Diastolic blood pressure 70 mm[Hg] Netta Montoya Other [employer] Other 08-13-2023 09:30-0500 Systolic blood pressure 110 mm[Hg] Netta Montoya Other [employer] Other 08-09-2023 14:48-0500 Body height 165.1 cm Sagar Krause MD Work Phone: [employer] 08-09-2023 14:48-0500 Body mass index (BMI) [Ratio] 33.58 kg/m2 Sagar Krause MD Work Phone: [employer] 08-09-2023 14:48-0500 Body weight 91.54 kg Sagar Krause MD Work Phone: [employer] 04-24-2023 13:30-0400 Body height 161.93 cm Siva Ron Other [employer] Other 04-24-2023 13:30-0400 Body mass index (BMI) [Ratio] 32.52 kg/m2 Siva Ariadne Other [employer] Other 04-24-2023 13:30-0400 Body weight 85.28 kg Siva Ron Other [employer] Other 04-24-2023 13:30-0400 Diastolic blood pressure 70 mm[Hg] Siva Ron Other [employer] Other 04-24-2023 13:30-0400 Systolic blood pressure 126 mm[Hg] Siva Ron Other [employer] Other 02-22-2023 15:15-0400 Body height 165.1 cm Radha Brandee AGRONOMY PROFESSOR-MATERIAL CONTROLLER Work Phone: [employer] 02-22-2023 15:15-0400 Body mass index (BMI) [Ratio] 31.51 kg/m2 Radha Brandee AGRONOMY PROFESSOR-MATERIAL CONTROLLER Work Phone: [employer] 02-22-2023 15:15-0400 Body temperature 98.01 [degF] Radha Brandee AGRONOMY PROFESSOR-MATERIAL CONTROLLER Work Phone: [employer] 02-22-2023 15:15-0400 Body weight 85.9 kg Radha Brandee AGRONOMY PROFESSOR-MATERIAL CONTROLLER Work Phone: [employer] 01-09-2023 09:30-0400 Body height 161.93 cm Netta Montoya Other [employer] Other 01-09-2023 09:30-0400 Body mass index (BMI) [Ratio] 33.04 kg/m2 Netta Montoya Other [employer] Other 01-09-2023 09:30-0400 Body weight 86.64 kg Netta Montoya Other [employer] Other 01-09-2023 09:30-0400 Diastolic blood pressure 60 mm[Hg] Netta Montoya Other [employer] Other 01-09-2023 09:30-0400 SaO2% (BldA) [Mass fraction] 97 % Netta Montoya Other [employer] Other 01-09-2023 09:30-0400 Systolic blood pressure 112 mm[Hg] Netta Montoya Other [employer] Other 01-01-2023 15:45-0400 Body height 161.93 cm Siva Ron Other [employer] Other 01-01-2023 15:45-0400 Body mass index (BMI) [Ratio] 34.08 kg/m2 Siva Ron Other [employer] Other 01-01-2023 15:45-0400 Body weight 89.36 kg Siva Ron Other [employer] Other 01-01-2023 15:45-0400 Diastolic blood pressure 71 mm[Hg] Siva Ron Other [employer] Other 01-01-2023 15:45-0400 Systolic blood pressure 116 mm[Hg] Siva Ron Other [employer] Other 11-30-2022 13:58-0400 Body height 165.1 cm Sagar Krause MD Work Phone: [employer] 11-30-2022 13:58-0400 Body mass index (BMI) [Ratio] 32.12 kg/m2 Sagar Krause MD Work Phone: [employer] 11-30-2022 13:58-0400 Body weight 87.54 kg Sagar Krause MD Work Phone: [employer] 10-10-2022 14:30-0500 Body height 161.93 cm Netta Montoya Other [employer] Other 10-10-2022 14:30-0500 Body mass index (BMI) [Ratio] 34.08 kg/m2 Netta Montoya Other [employer] Other 10-10-2022 14:30-0500 Body weight 89.36 kg Netta Montoya Other [employer] Other 10-10-2022 14:30-0500 Diastolic blood pressure 70 mm[Hg] Netta Montoya Other [employer] Other 10-10-2022 14:30-0500 Systolic blood pressure 108 mm[Hg] Netta Montoya Other [employer] Other 09-13-2022 16:30-0500 Body height 161.93 cm Netta Montoya Other [employer] Other 09-13-2022 16:30-0500 Body mass index (BMI) [Ratio] 33.21 kg/m2 Netta Montoya Other [employer] Other 09-13-2022 16:30-0500 Body weight 87.09 kg Netta Montoya Other [employer] Other 09-13-2022 16:30-0500 Diastolic blood pressure 62 mm[Hg] Netta Montoya Other [employer] Other 09-13-2022 16:30-0500 SaO2% (BldA) [Mass fraction] 97 % Netta Montoya Other [employer] Other 09-13-2022 16:30-0500 Systolic blood pressure 108 mm[Hg] Netta Montoya Other [employer] Other Encounters Encounter Date Encounter Type Care Provider Facility Start: 02-11-2024 ambulatory Netta Montoya MD Facility:[facility] Start: 01-18-2024 End: 01-19-2024 ambulatory Netta Montoya MD Facility:[facility] Start: 01-09-2024 End: 02-09-2024 ambulatory RADHA IRVIN [facility] Start: 12-26-2023 End: 01-09-2024 ambulatory NETTA MONTOYA [facility] Start: 12-26-2023 End: 12-26-2023 Office outpatient visit 15 minutes Radha Irvin APRN-MATERIAL CONTROLLER Work Phone: [facility] Comment on above: Hx of total knee art hroplasty, left (Primary Dx) Start: 12-26-2023 End: 12-26-2023 Subsequent hospital visit by physician Radha Irvin APRN-MATERIAL CONTROLLER Work Phone: [facility] Start: 12-20-2023 End: 12-21-2023 ambulatory Janett Balbuena DPM Facility:[facility] Start: 12-20-2023 End: 12-21-2023 ambulatory Netta Montoya MD Facility:[facility] Start: 10-22-2023 End: 10-22-2023 ambulatory Siva Ron Other [employer] Other Start: 10-22-2023 Telephone encounter Siva sheriff [facility] Start: 08-13-2023 End: 08-13-2023 ambulatory Netta Montoya Other [employer] Other Start: 08-13-2023 Office outpatient vi sit 15 minutes Netta BAUMAN [facility] Start: 08-09-2023 ambulatory SAGAR KRAUSE [facility] Start: 08-09-2023 End: 08-09-2023 Office outpatient visit 15 minutes Sagar Krause MD Work Phone: [facility] Comment on above: Post-op pain (Primar y Dx); Pain in prosthetic joint, subsequent encounter Start: 08-09-2023 End: 08-09-2023 Subsequent hospital visit by physician Sagar Krause MD Work Phone: [facility] Start: 06-19-2023 End: 06-19-2023 ambulatory Cara Leo Facility:[facility] Start: 06-19-2023 End: 06-19-2023 ambulatory MD Netta Montoya Work Phone: [facility] Work Phone: Start: 06-19-2023 End: 06-19-2023 Patient encounter procedure MD Netta Montoya Work Phone: [facility] [place] Work Phone: Start: 05-22-2023 End: 05-22-2023 ambulatory Siva Ron Other [employer] Other Start: 05-22-2023 Telephone encounter Siva sheriff [facility] Start: 05-15-2023 End: 05-16-2023 ambulatory Netta Montoya MD Facility:[facility] Start: 05-09-2023 End: 05-09-2023 ambulatory Siva Ron Facility:[facility] Start: 05-09-2023 End: 05-09-2023 ambulatory MD Netta Montoya Work Phone: [facility] Work Phone: Start: 05-09-2023 End: 05-09-2023 Patient encounter procedure MD Netta Montoya Work Phone: [facility] Work Phone: Start: 04-26-2023 End: 04-26-2023 ambulatory Netta Montoya Other [employer] Other Start: 04-26-2023 Telephone encounter Netta Montoya [facility] Start: 04-24-2023 End: 04-24-2023 ambulatory Siva Ron Other [employer] Other Start: 04-24-2023 Office outpatient vi sit 25 minutes Siva Ron [facility] Start: 04-23-2023 End: 04-23-2023 ambulatory Netta Montoya Other [employer] Other Start: 04-23-2023 Telephone encounter Netta Montoya [facility] Start: 04-20-2023 End: 04-20-2023 ambulatory Netta Montoya Other [employer] Other Start: 04-20-2023 Telephone encounter Netta Montoya [facility] Start: 03-15-2023 End: 03-15-2023 ambulatory Siva Ron Other [employer] Other Start: 03-15-2023 Telephone encounter Siva Huggins [facility] Start: 02-22-2023 ambulatory NETTA MONTOYA [facility] Start: 02-22-2023 End: 02-22-2023 Postop follow up visit related to original px Radha Brandee AGRONOMY PROFESSOR-MATERIAL CONTROLLER Work Phone: [facility] Comment on above: Hx of total knee art hroplasty, left (Primary Dx) Start: 02-19-2023 End: 02-19-2023 ambulatory Netta Montoya Other [employer] Other Start: 02-19-2023 Telephone encounter Netta Montoya [facility] Start: 01-29-2023 End: 01-30-2023 [facility] Start: 01-29-2023 End: 01-30-2023 Encounter for other preprocedural examination [facility] Start: 01-18-2023 End: 01-19-[address] Erin RON Facility:[facility] Start: 01-17-2023 End: 01-17-2023 ambulatory Siva Ron Other [employer] Other Start: 01-17-2023 Telephone encounter Siva sheriff [facility] Start: 01-16-2023 End: 01-16-2023 ambulatory Siva Ron Other [employer] Other Start: 01-16-2023 Telephone encounter Siva sheriff [facility] Start: 01-09-2023 Encounter for other preprocedural examination Netta Lindsay [facility] Start: 01-09-2023 Office outpatient vi sit 15 minutes Netta Lindsay [facility] Start: 01-09-2023 Telephone encounter Netta Montoya [facility] Start: 01-09-2023 End: 01-10-[address] Erin RON [facility] Other Start: 01-08-2023 End: 01-08-[address] Erin RON Facility:[facility] Start: 01-04-2023 ambulatory [facility] Start: 01-02-2023 End: 01-02-2023 ambulatory Siva Ron Other [employer] Other Start: 01-02-2023 Telephone encounter Siva sheriff [facility] Start: 01-01-2023 End: 01-01-2023 ambulatory Siva Ron Other [employer] Other Start: 01-01-2023 Office outpatient ne w 45 minutes Siva Ron [facility] Start: 11-30-2022 End: 11-30-2022 Office outpatient new 60 minutes Sagar Krause MD Work Phone: [facility] Comment on above: Pain in prosthetic j oint, sequela (Primary Dx) Start: 11-30-2022 End: 11-30-2022 Subsequent hospital visit by physician Sagar Krause MD Work Phone: [facility] Start: 11-28-2022 End: 11-29-[address] CARA LEO Facility:[facility] Start: 11-09-2022 End: 11-10-2022 ambulatory BRI BERGER Facility:[facility] Start: 10-18-2022 End: 10-19-[address] CARA LEO Facility:[facility] Start: 10-10-2022 End: 10-10-2022 ambulatory Netta Montoya Other [employer] Other Start: 10-10-2022 Office outpatient vi sit 15 minutes Netta Montoya [facility] Start: 09-22-2022 End: 09-22-2022 ambulatory Netta Montoya Other [employer] Other Start: 09-22-2022 Telephone encounter Netta Montoya [facility] Start: 09-13-2022 End: 09-14-2022 ambulatory JANETT BALBUENA [facility] Other Start: 09-13-2022 Office outpatient vi sit 15 minutes Netta Montoya [facility] Start: 08-23-2022 End: 08-24-2022 ambulatory TONY DICKINSON Facility:[facility] Start: 08-22-2022 End: 08-23-2022 ambulatory JANETT BALBUENA Facility:[facility] Start: 08-08-2022 End: 08-09-[address] PELON ALEXANDRE Facility:[facility] Start: 08-01-2022 Adult health examination Netta Montoya Other [employer] Other Start: 08-01-2022 Gynecological examination normal Netta Montoya Other [employer] Other Start: 08-01-2022 Pre-procedure evaluation check Netta Montoya Other [employer] Other Start: 07-11-2022 End: 07-12-[address] NETTA MONTOYA Facility:[facility] Start: 07-05-2022 End: 07-06-2022 ambulatory BASILIO LANDEROS Facility:[facility] Start: 04-08-2022 End: 04-09-[address] DOCTOR DESHPANDE Facility:[facility] Start: 04-05-2022 ambulatory SABINA DELGADILLO . Facility:[facility] Start: 03-28-2022 Encounter for other preprocedural examination DR DOCTOR DESHPANDE [facility] Start: 03-27-2022 End: 03-28-[address] DOCTOR DESHPANDE Facility:[facility] Start: 03-27-2022 End: 03-28-2022 Encounter for other preprocedural examination DR DOCTOR DESHPANDE Facility:[facility] Start: 03-21-2022 End: 03-21-[address] PAWEL [...] Treatment Date Care Activity Detail Author Start: 05-11-2024 Influenza vaccination INFLUENZ A VACCINE (Season Ended) [facility] Start: 01-30-2024 End: 01-30-2024 Patient encounter procedure 01/30/2024 1:00 PM EDT Office Visit [facility] [address] [place] [address] Radha Irvin, AGRONOMY PROFESSOR-MATERIAL CONTROLLER [address] [place] [address] [facility] Start: 08-09-2023 End: 09-06-2023 C-reactive protein C REACTIVE PROTEIN Lab Routine Pain in prosthetic joint, subsequent encounter Expected: 08/09/2023, Expires: 09/06/2023 [facility] Comment on above: Expected: 08/09/2023 , Expires: 09/06/2023 Start: 08-09-2023 End: 09-06-2023 SEDIMENTATION RATE, AUTOMATED SEDIMENTATION RATE, AUTOMATED Lab Routine Pain in prosthetic joint, subsequent encounter Expected: 08/09/2023 (Approximate), Expires: 09/06/2023 [facility] Comment on above: Expected: 08/09/2023 (Approximate), Expires: 09/06/2023 Start: 07-06-2023 Hemoglobin A1c measurement HBA1C TEST [facility] Start: 06-06-2023 End: 06-06-2023 Patient encounter procedure 06/06/2023 1:10 PM EDT Office Visit [facility] [address] [place] [address] Sagar Krause MD [address] [place] [address] [facility] Start: 05-11-2023 COVID-19 VACCINE ( season) COVID-19 VACCINE ( season) [facility] Start: 05-11-2023 Influenza vaccination A [facility] Start: 05-09-2023 [facility] Start: 01-04-2023 End: 01-04-2023 ambulatory 01/04/2023 Pre-Operative Nurse Assessment Internal Medicine [facility] Pre Admission Start: 05-11-2022 Influenza vaccination INFLUENZA VACC INE (#1) [facility] Start: 12-15-2009 Zoster vaccine hzv l ag for subcutaneous use ZOSTER (SHINGLES) VACCINE (1 of 2) [facility] Start: 12-15-2004 Screening for malign ant neoplasm of colon COLORECTAL CANCER SCREENING DISCUSSION [facility] Start: 1999 Lipid panel LIPID SCREENING [facility] Start: 1999 Screening for malign ant neoplasm of breast MAMMOGRAM SCREENING DISCUSSION [facility] Start: 12-15-1980 Screening for malign ant neoplasm of cervix CERVICAL CANCER SCREENING DISCUSSION [facility] Start: 12-15-1978 Third diphtheria, tetanus and acellular pertussis (DTaP) vaccination TDAP (ADULT) [facility] Start: 12-15-1974 HIV screening HIV SCREENING DISCUSSION [facility] Start: 06-16-1960 COVID-19 VACCINE (#1) COVID-19 VACCI NE (#1) [facility] Start: 1959 Diabetic foot examination DIABETIC FOOT EXAM [facility] Start: 1959 Glaucoma screening EYE EXAM [facility] Start: 1959 Hepatitis C screening HEPATITI S C VIRUS SCREENING [facility] Start: 1959 Lipid panel LIPIDS [facility] Start: 1959 Tetanus vaccination TETANUS [facility] Start: 1959 Thyroid stimulating hormone measurement TSH [facility] Start: 1959 Urine screening for protein URINE MICROALBUMIN TEST [facility] Radiography for bone length studies XR BONE LENGTH STUDY Imaging Routine Pain in prosthetic joint, sequela 11/30/2022 1:41 PM EDT [facility] XR Knee - left 3 Views XR KNEE L EFT 3 VIEWS Imaging Routine Pain in prosthetic joint, sequela 11/30/2022 1:41 PM EDT [facility] Work Phone: XR Knee - left 3 Views XR KNEE L EFT 3 VIEWS Imaging Routine Hx of total knee arthroplasty, left 02/22/2023 2:50 PM EDT [email or web address] [facility] XR Knee - left 3 Views XR KNEE L EFT 3 VIEWS Imaging Routine Post-op pain 08/09/2023 2:03 PM EST [email or web address] [facility] XR Knee - left 3 Views XR KNEE L EFT 3 VIEWS Imaging Routine Hx of total knee arthroplasty, left 12/26/2023 1:43 PM EDT [email or web address] [facility] Payers Date Payer Category Payer Self-pay 2021 Private Health Insurance 2021 Medicare MEDICARE [employer] [place] MEDICARE [employer] HMO [id number] 2021-Present [address] [place] [address] [id number] 1959 Unknown [id number] 2.16.840.1.783684.3.579.2.5 1959 Unknown [id number] 2.16.840.1.375343.3.579.2.5 1959 Unknown [id number] 2.16.840.1.345509.3.579.2.5 93 1959 Unknown [id number] 2.16.840.1.419434.3.579.2.5 93 1959 Unknown [id number] 2.16.840.1.679892.3.579.2.5 93 1959 Unknown [id number] 2.16.840.1.748817.3.579.2.5 93 1959 Unknown [id number] 2.16.840.1.022334.3.579.2.5 93 1959 Unknown [id number] 2.16.840.1.986791.3.579.2.5 1959 Unknown [id number] 2.16.840.1.535367.3.579.2.5 1959 Unknown [id number] 2.16.840.1.742231.3.579.2.5 93 1959 Unknown [id number] 2.16.840.1.087749.3.579.2.5 93 1959 Unknown [id number] 2.16.840.1.311586.3.579.2.5 93 1959 Unknown [id number] 2.16.840.1.603937.3.579.2.5 93 1959 Unknown [id number] 2.16.840.1.483168.3.579.2.5 93 1959 Unknown [id number] 2.16.840.1.951914.3.579.2.5 93 1959 Unknown [id number] 2.16.840.1.424495.3.579.2.5 93 1959 Unknown [id number] 2.16.840.1.280279.3.579.2.5 93 1959 Unknown [id number] 2.16.840.1.775789.3.579.2.5 93 1959 Unknown [id number] 2.16.840.1.268301.3.579.2.5 93 1959 Unknown [id number] 2.16.840.1.911687.3.579.2.9 83 1959 Unknown [id number] 2.16.840.1.165763.3.579.2.9 83 1959 Unknown [id number] 2.16.840.1.259019.3.579.2.9 83 1959 Unknown [id number] 2.16.840.1.695387.3.579.2.9 83 1959 Unknown [id number] 2.16.840.1.597933.3.579.2.9 83 1959 Unknown [id number] 2.16.840.1.324386.3.579.2.9 83 1959 Unknown [id number] 2.16.840.1.485753.3.579.2.9 83 1959 Unknown [id number] 2.16.840.1.048727.3.579.2.9 83 1959 Unknown [id number] 2.16.840.1.524359.3.579.2.1 96 1959 Unknown [id number] 2.16.840.1.448125.3.579.2.1 96 1959 Unknown [id number] 2.16.840.1.560060.3.579.2.1 96 1959 Unknown [id number] 2.16.840.1.233635.3.579.2.1 96 1959 Unknown [id number] 2.16.840.1.261319.3.579.2.1 96 1959 Unknown [id number] 2.16.840.1.395457.3.579.2.1 96 1959 Unknown [id number] 2.16.840.1.315187.3.579.2.1 286 1959 Unknown [id number] 2.16.840.1.414109.3.579.2.1 286 1959 Medicare [id number] 2.16.840.1.200113.19 Unknown [id number] Unknown [id number] Unknown [id number] Social History Date Type Detail Facility Unknown if ever smoked [facility] Other Start: 02-22-2023 End: 12-26-2023 Sex Assigned At [employer] Other Start: 11-30-2022 Tobacco smoking status IDIS Never smoked tobacco [facility] [email or web address] [facility] Start: 11-30-2022 Tobacco use and exposure Smokeless tobacco non-user [facility] Start: 11-30-2022 End: 12-26-2023 Alcohol intake Ex-drinker (finding) [facility] Start: 1960 Sex Assigned At Not on file A [facility] Start: 02-22-2023 End: 12-26-2023 History of Social function [facility] Start: 01-19-2023 End: 01-29-2023 Exposure to SARS-CoV-2 (event) Not sure [facility] Start: 1960 Sex Assigned At Female F [facility] Medical Equipment Procedure Code Equipment Code Equipment Origin al Text Equipment Identifier Dates One Touch Ultra Test Strips Insert - Knee - [id number] Start: 01-29-2023 Patella - Knee - [id number] Start: 01-29-2023 Revision Pressfi t Stem 12mmx 60 [id number] Start: 01-29-2023 Revision Tibial Base Sz 2 [id number] Start: 01-29-2023 Rev Offset Stem 2mm [id number] t: 01-29-2023 Rev Distal Femor al Augment Sz 5 4mm [id number] Start: 01-29-2023 Rev Crs Femoral Sz 5 Left [id number] Start: 01-29-2023 Palacos R 1 X 40 Us - [id number] Start: 01-29-2023 Palacos R & G Smooth ne Cement High-Viscosity With Gentamicin - [id number] Start: 01-29-2023 Goals Date Patient Goal Desired Activity /State Clinical Notes 03-08-2022 to 12-26-2023 Raven Mera - 12/26/2023 2:00 PM EDDANIELLE Kellogg - 12/26/2023 2:00 PM EDT Note Date & Type Note Facility 12-26-2023 History of Presen t illness Narrative Ortho Nurse - Established Patient Intake Room#: 5 Date: 12/26/2023 1:55 PM Patient: Emily Macias MR#: [id number] : 1960 Age: 63 y.o. 1yr L TKA Pt stated her knee has been locking on her and has pain 5/10. Pt stated she is almost always a 4-5/10 on the pain scale. Referring Physician: Self, Self Insurance: Payor: MEDICARE [employer] HMO OR PPO / Plan: MEDICARE [employer] HMO / Product Type: *No Product type* / Chief Complaint Patient presents with Left Knee - Follow-up Visit Vitals Ht 1.651 m (5' 5 ) Wt 91.2 kg (201 lb) BMI 33.45 kg/m Pain Recent Labs No results found [...] for blood clot prevention. 60 tablet 0 B Complex Vitamins (B COMPLEX 1 PO) Take by mouth daily. baclofen 10 MG tablet Take 2 tablets by mouth as needed. Calcium Carb-Cholecalciferol (CALCIUM + D3 PO) Take by mouth daily. Celecoxib 200 MG capsule Take 1 capsule by mouth 2 times daily. 60 capsule 0 Cholecalciferol 250 MCG (94354 UT) capsule capsule Take by mouth daily. Cobalamin Combinations (B-12) 100-[address] under tongue daily. dapagliflozin 5 MG tablet Take 1 tablet by mouth daily. dexAMETHasone 4 MG/ML Solution injection 1 mL by Other route As directed for 18 doses. (1 cc 3 x a week at physical therapy via iontophoresis) for up to 18 doses. 30 mL 0 Docusate 100 MG capsule Take 1 capsule by mouth 2 times daily. 60 capsule 0 levothyroxine 112 MCG tablet Take 1 tablet by mouth daily. AM Magnesium 500 MG capsule Take by mouth daily. Melatonin 5 MG capsule Take by mouth at bedtime. Mesalamine 1.[address] tablet Take 2 tablets by mouth daily. metFORMIN 1000 MG tablet 2 times daily. methylPREDNIsolone 4 MG Tab Therapy Pack tablet Take 1 tablet by mouth As directed. follow package directions 21 tablet 0 Multiple Vitamins-Minerals (One Daily Calcium/Iron) tablet Take 1 tablet by mouth daily. Omeprazole [address] tablet Take by mouth daily. Pancrelipase, Hez-Ayfx-Wsfn, (CREON PO) Take 36,000 Units by mouth. 2 tablet by mouth with each meal, 1 tablet by mouth with 1 snack daily Probiotic Product (PROBIOTIC DAILY PO) Take by mouth. Propylene Glycol (SYSTANE COMPLETE OP) Apply to eye as needed. Pyridoxine HCl (B-6) 100 MG tablet Take by mouth daily. Specialty Vitamins Products (ICAPS lutein & zeaxanthin) Tab DR Take 1 tablet by mouth daily. Vitamin A 2400 MCG (8000 UT) tablet Take by mouth daily. Xiidra 5 % Solution ophthalmic solution Place in both eyes 2 times daily. Zinc 50 MG capsule Take by mouth daily. hydroCODone-acetaminophen 5-325 MG tablet Take 1-2 tablets by mouth every 6 hours as needed for Severe Pain for up to 7 days. Do not take over 4000mg acetaminophen daily. 20 tablet 0 naloxone 4 MG/0.1ML 1 spray by Nasal route once for 1 dose. Sargeant into the nose as directed. Call 911. If no response in 2 minutes use a new nasal spray in other nostril. Repeat until help arrives. 1 Each 0 oxyCODONE 5 MG tablet Take 1-2 tabs po q 4-6 hours prn pain. Wean as tolerated. 20 tablet 0 traMADol 50 MG tablet 1 tabs po q 6 hr PRN pain 20 tablet 0 No facility-administered medications prior to visit. Current Outpatient Medications: Acetaminophen 325 MG tablet, Take 2 tablets [...] times daily., Disp: 60 capsule, Rfl: 0 Cholecalciferol 250 MCG (36462 UT) capsule capsule, Take by mouth daily., Disp: , Rfl: Cobalamin Combinations (B-12) 100-5000 MCG Tab SL, Place under tongue daily., Disp: , Rfl: dapagliflozin 5 MG tablet, Take 1 tablet by mouth daily., Disp: , Rfl: dexAMETHasone 4 MG/ML Solution injection, 1 mL by Other route As directed for 18 doses. (1 cc 3 x a week at physical therapy via iontophoresis) for up to 18 doses., Disp: 30 mL, Rfl: 0 Docusate 100 MG capsule, Take 1 capsule by mouth 2 times daily., Disp: 60 capsule, Rfl: 0 levothyroxine 112 MCG tablet, Take [...] tablet, 2 times daily., Disp: , Rfl: methylPREDNIsolone 4 MG Tab Therapy Pack tablet, Take 1 tablet by mouth As directed. follow package directions, Disp: 21 tablet, Rfl: 0 Multiple Vitamins-Minerals (One Daily Calcium/Iron) tablet, Take 1 tablet by mouth daily., Disp: , Rfl: Omeprazole [address] tablet, Take by mouth daily., Disp: , Rfl: Pancrelipase, Efl-Apeh-Xnbs, (CREON PO), Take 36,000 Units by mouth. 2 tablet by mouth with each meal, 1 tablet by mouth with 1 snack daily, Disp: , Rfl: Probiotic Product (PROBIOTIC DAILY PO), Take by mouth., Disp: , Rfl: Propylene Glycol (SYSTANE COMPLETE OP), Apply to eye as needed., Disp: , Rfl: Pyridoxine HCl (B-6) 100 MG tablet, Take by mouth daily., Disp: , Rfl: Specialty Vitamins Products (ICAPS lutein & zeaxanthin) Tab DR, Take 1 tablet by mouth daily., Disp: , Rfl: Vitamin A 2400 MCG (8000 UT) tablet, Take by mouth daily., Disp: , Rfl: Xiidra 5 % Solution ophthalmic solution, Place in both eyes 2 times daily., Disp: , Rfl: Zinc 50 MG capsule, Take by mouth daily., Disp: , Rfl: hydroCODone-acetaminophen 5-325 MG tablet, Take 1-2 tablets by mouth every 6 hours as needed for Severe Pain for up to 7 days. Do not take over 4000mg acetaminophen daily., Disp: 20 tablet, Rfl: 0 naloxone 4 MG/0.1ML, 1 spray by Nasal route once for 1 dose. Sargeant into the nose as directed. Call 911. If no response in 2 minutes use a new nasal spray in other nostril. Repeat until help arrives., Disp: 1 Each, Rfl: 0 oxyCODONE 5 MG tablet, Take 1-2 tabs po q 4-6 hours prn pain. Wean as tolerated., Disp: 20 tablet, Rfl: 0 traMADol 50 MG tablet, 1 tabs po q 6 hr PRN pain, Disp: 20 tablet, Rfl: 0 Allergies: She is allergic to savella [milnacipran], zanaflex [tizanidine], and vancomycin. SUBJECTIVE: Emily is an established patient of [facility]. She is here today for followup. She called the office earlier this week and asked for more physical therapy, which was written for her. She saw Dr. Krause last back in July and was diagnosed with past hamstring and patellar tendinitis. Offered physical therapy and she declined. She unhappy with the knee as it is right now. She has lot of pain on the inside of the knee and feels like the knee locks up alternate times. PHYSICAL EXAMINATION: GENERAL: She is alert, oriented, and age-appropriate female, in no acute distress. Pleasant and cooperative. EXTREMITIES: The left lower extremity has thigh and calf soft, nontender. Normal neurovascular status. Range of motion 0-120 degrees. Incisions well healed. There is no redness, drainage, dehiscence, discharge, or signs or symptoms of infection. No warmth about the knee. There is marked tenderness overlying the hamstring and pes tendon on the posterior medial side. Some tenderness anteriorly overlying the patellar tendon. Right lower extremity has thigh and calf soft, nontender. Normal neurovascular status. Negative Homans sign. Her left knee has good balance throughout the arc of motion. DIAGNOSTIC STUDY INTERPRETATION: Three views of the left knee taken today demonstrate stable position and alignment of cemented revision construct. It is in unchanged position and alignment when compared to previous imaging. No evidence of periprosthetic implant loosening or migration. ASSESSMENT: 1. 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 2. Hamstring patellar and pes tendinitis, left knee. PLAN: I reviewed my findings with Emily. She was ordered ESR and CRP to be done at her last appointment, she did not do it. She thinks she had that done at [facility]. We will try and obtain those results. Otherwise, prescription was descended previously for physical therapy. I would like her to follow up with the completion of physical therapy if she remains symptomatic. We have talked about the general nature of tendinitis in and around the knee. I anticipate it will calm down with physical therapy should she remain symptomatic have her follow up with Dr. Krause for clinical examination. ([id number]) I have reviewed the findings of the clinical manager support and agree with their assessment. Radha Irvin APRN-KEIRA Ortho Nurse - Established Patient Intake Room#: 5 Date: 12/26/2023 1:55 PM Patient: Emily Macias MR#: [id number] : 1960 Age: 63 y.o. 1yr L TKA Pt stated her knee has been locking on her and has pain 5/10. Pt stated she is almost always a 4-5/10 on the pain scale. Referring Physician: Self, Self Insurance: Payor: MEDICARE [employer] HMO OR PPO / Plan: MEDICARE AETNA HMO / Product Type: *No Product type* / Chief Complaint Patient presents with Left Knee - Follow-up Visit Vitals Ht 1.651 m (5' 5 ) Wt 91.2 kg (201 lb) BMI 33.45 kg/m Pain Recent Labs No results found [...] ARTHROSCOPY Right 2012 FUNDOPLICATION ENDOSCOPIC 2004 HYSTERECTOMY 2004 CHOLECYSTECTOMY LAPAROSCOPIC 1995 OTHER SURGICAL 1990 ruptured [...] for blood clot prevention. 60 tablet 0 B Complex Vitamins (B COMPLEX 1 PO) Take by mouth daily. baclofen 10 MG tablet Take 2 tablets by mouth as needed. Calcium Carb-Cholecalciferol (CALCIUM + D3 PO) Take by mouth daily. Celecoxib 200 MG capsule Take 1 capsule by mouth 2 times daily. 60 capsule 0 Cholecalciferol 250 MCG (04962 UT) capsule capsule Take by mouth daily. Cobalamin Combinations (B-12) 100-[address] under tongue daily. dapagliflozin 5 MG tablet Take 1 tablet by mouth daily. dexAMETHasone 4 MG/ML Solution injection 1 mL by Other route As directed for 18 doses. (1 cc 3 x a week at physical therapy via iontophoresis) for up to 18 doses. 30 mL 0 Docusate 100 MG capsule Take 1 capsule by mouth 2 times daily. 60 capsule 0 levothyroxine 112 MCG tablet Take 1 tablet by mouth daily. AM Magnesium 500 MG capsule Take by mouth daily. Melatonin 5 MG capsule Take by mouth at bedtime. Mesalamine 1.[address] tablet Take 2 tablets by mouth daily. metFORMIN 1000 MG tablet 2 times daily. methylPREDNIsolone 4 MG Tab Therapy Pack tablet Take 1 tablet by mouth As directed. follow package directions 21 tablet 0 Multiple Vitamins-Minerals (One Daily Calcium/Iron) tablet Take 1 tablet by mouth daily. Omeprazole [address] tablet Take by mouth daily. Pancrelipase, Gtg-Qevs-Vxux, (CREON PO) Take 36,000 Units by mouth. 2 tablet by mouth with each meal, 1 tablet by mouth with 1 snack daily Probiotic Product (PROBIOTIC DAILY PO) Take by mouth. Propylene Glycol (SYSTANE COMPLETE OP) Apply to eye as needed. Pyridoxine HCl (B-6) 100 MG tablet Take by mouth daily. Specialty Vitamins Products (ICAPS lutein & zeaxanthin) Tab DR Take 1 tablet by mouth daily. Vitamin A 2400 MCG (8000 UT) tablet Take by mouth daily. Xiidra 5 % Solution ophthalmic solution Place in both eyes 2 times daily. Zinc 50 MG capsule Take by mouth daily. hydroCODone-acetaminophen 5-325 MG tablet Take 1-2 tablets by mouth every 6 hours as needed for Severe Pain for up to 7 days. Do not take over 4000mg acetaminophen daily. 20 tablet 0 naloxone 4 MG/0.1ML 1 spray by Nasal route once for 1 dose. Sargeant into the nose as directed. Call 911. If no response in 2 minutes use a new nasal spray in other nostril. Repeat until help arrives. 1 Each 0 oxyCODONE 5 MG tablet Take 1-2 tabs po q 4-6 hours prn pain. Wean as tolerated. 20 tablet 0 traMADol 50 MG tablet 1 tabs po q 6 hr PRN pain 20 tablet 0 No facility-administered medications prior to visit. Current Outpatient Medications: Acetaminophen 325 MG tablet, Take 2 tablets [...] times daily., Disp: 60 capsule, Rfl: 0 Cholecalciferol 250 MCG (02908 UT) capsule capsule, Take by mouth daily., Disp: , Rfl: Cobalamin Combinations (B-12) 100-5000 MCG Tab SL, Place under tongue daily., Disp: , Rfl: dapagliflozin 5 MG tablet, Take 1 tablet by mouth daily., Disp: , Rfl: dexAMETHasone 4 MG/ML Solution injection, 1 mL by Other route As directed for 18 doses. (1 cc 3 x a week at physical therapy via iontophoresis) for up to 18 doses., Disp: 30 mL, Rfl: 0 Docusate 100 MG capsule, Take 1 capsule by mouth 2 times daily., Disp: 60 capsule, Rfl: 0 levothyroxine 112 MCG tablet, Take [...] tablet, 2 times daily., Disp: , Rfl: methylPREDNIsolone 4 MG Tab Therapy Pack tablet, Take 1 tablet by mouth As directed. follow package directions, Disp: 21 tablet, Rfl: 0 Multiple Vitamins-Minerals (One Daily Calcium/Iron) tablet, Take 1 tablet by mouth daily., Disp: , Rfl: Omeprazole [address] tablet, Take by mouth daily., Disp: , Rfl: Pancrelipase, Aml-Kwwq-Znvw, (CREON PO), Take 36,000 Units by mouth. 2 tablet by mouth with each meal, 1 tablet by mouth with 1 snack daily, Disp: , Rfl: Probiotic Product (PROBIOTIC DAILY PO), Take by mouth., Disp: , Rfl: Propylene Glycol (SYSTANE COMPLETE OP), Apply to eye as needed., Disp: , Rfl: Pyridoxine HCl (B-6) 100 MG tablet, Take by mouth daily., Disp: , Rfl: Specialty Vitamins Products (ICAPS lutein & zeaxanthin) Tab DR, Take 1 tablet by mouth daily., Disp: , Rfl: Vitamin A 2400 MCG (8000 UT) tablet, Take by mouth daily., Disp: , Rfl: Xiidra 5 % Solution ophthalmic solution, Place in both eyes 2 times daily., Disp: , Rfl: Zinc 50 MG capsule, Take by mouth daily., Disp: , Rfl: hydroCODone-acetaminophen 5-325 MG tablet, Take 1-2 tablets by mouth every 6 hours as needed for Severe Pain for up to 7 days. Do not take over 4000mg acetaminophen daily., Disp: 20 tablet, Rfl: 0 naloxone 4 MG/0.1ML, 1 spray by Nasal route once for 1 dose. Sargeant into the nose as directed. Call 911. If no response in 2 minutes use a new nasal spray in other nostril. Repeat until help arrives., Disp: 1 Each, Rfl: 0 oxyCODONE 5 MG tablet, Take 1-2 tabs po q 4-6 hours prn pain. Wean as tolerated., Disp: 20 tablet, Rfl: 0 traMADol 50 MG tablet, 1 tabs po q 6 hr PRN pain, Disp: 20 tablet, Rfl: 0 Allergies: She is allergic to savella [milnacipran], zanaflex [tizanidine], and vancomycin. documented in this encounter [facility] 08-13-2023 Evaluation note Encounter Date Diagnosis Assessment Notes Aug, Piriformis syndrome, right (ICD-10 - G57.01) Pt declines PT at this time. Gave handouts for exercises and use flexeril qhs. Aug, Trochanteric bursitis, right hip (ICD-10 - M70.61) Pt declines PT. Muscle relaxer and handouts given. [facility] Other 11-30-2023 History of Present illness Narrative* [...] 08/09/2023 2:58 PM Patient: Emily Macias MR#: [id number] : 1960 Age: 62 y.o. Referring Physician: Sagar Krause MD Insurance: Payor: MEDICARE [employer] HMO OR PPO / Plan: MEDICARE AETNA [...] DR tablet Take by mouth daily. Pancrelipase, Wfl-Muqr-Mzqn, (CREON PO) Take 36,000 Units by mouth. [...] taking: Reported on 08/09/2023) Cholecalciferol 250 MCG (62496 UT) capsule capsule Take by mouth daily. [...] by Nasal route once for 1 dose. Sargeant into the nose as directed. Call 911. [...] have reviewed the findings of the clinical manager support and agree with their assessment. Ortho Nurse [...] 08/09/2023 2:58 PM Patient: Emily Macias MR#: [id number] : 1960 Age: 62 y.o. Referring Physician: [...] 03/2012 SHOULDER ARTHROSCOPY Right 2012 FUNDOPLICATION ENDOSCOPIC 2003 HYSTERECTOMY 2003 CHOLECYSTECTOMY LAPAROSCOPIC [...] DR tablet Take by mouth daily. Pancrelipase, Rhu-Cabj-Rujf, (CREON PO) Take 36,000 Units by mouth. [...] taking: Reported on 08/09/2023) Cholecalciferol 250 MCG (22294 UT) capsule capsule Take by mouth daily. [...] by Nasal route once for 1 dose. Sargeant into the nose as directed. Call 911. [...] zanaflex [tizanidine], and vancomycin. [facility]* Encounter Date Diagnosis Assessment Notes Treatment Notes Treatment Clinical Notes Apr, Abdominal cramping (ICD-10 - R10.9) Patient reports doing well Apr, Diverticulosis (ICD-10 - K57.90) Apr, Alternating constipation and diarrhea (ICD-10 - R19.8) Apr, Pancreatic atrophy (ICD-10 - K86.89) Apr, Fatty liver (ICD-10 - K76.0) [facility] Other 08-11-2023 Evaluation note* Encounter Date Diagnosis Assessment Notes Treatment Notes Treatment Clinical Notes Apr, Type 2 diabetes mellitus with hyperglycemia, without long-term current use of insulin (ICD-10 - E11.65) [facility] Other 06-15-2023 History of Present illness Narrative* [...] 02/22/2023 3:16 PM Patient: Emily Macias MR#: [id number] : 1960 Age: 62 y.o. Referring Physician: Radha Irvin, ALVARO-KEIRA Insurance: Payor: MEDICARE AETNA HMO OR PPO [...] daily. 84 capsule 0 Cholecalciferol 250 MCG (27876 UT) capsule capsule Take by mouth daily. [...] by Nasal route once for 1 dose. Sargeant into the nose as directed. Call 911. If no response in 2 minutes use a new nasal spray in other nostril. Repeat until help arrives. 1Each [address] Omepraz[address] tablet Take by mouth daily. oxyCODONE 5 MG tablet Take 1-2 tabs po q 4-6 hours prn pain. Wean as tolerated. 20 tablet 0 Pancrelipase, Kzm-Bwuw-Pdjb, (CREON PO) Take 36,000 Units by mouth. [...] 84 capsule, Rfl: 0 Cholecalciferol 250 MCG (05955 UT) capsule capsule, Take by mouth daily., [...] by Nasal route once for 1 dose. Sargeant into the nose as directed. Call 911. [...] tolerated., Disp: 20 tablet, Rfl: 0 Pancrelipase, Ygb-Knqb-Qbdy, (CREON PO), Take 36,000 Units by mouth. [...] [milnacipran], zanaflex [tizanidine], and vancomycin. * Radha Irvin APRN-MATERIAL CONTROLLER - 02/22/2023 3:00 PM EDT HPI: Emily [...] understanding. All pertinent portions of the clinical manager support documentation was reviewed and agree. DANIELLE Gimenez I have reviewed the findings of the clinical manager support and agree with their assessment. DANIELLE Gimenez Ortho Nurse - Established Patient Intake Room#: 5 Patient is S/P L knee medial/partial revision to TKA. Patient using walker today and penelope hose are in place. She states the worse pain is at HS while trying to sleep. Sitting pain 4/10 Walking pain is 5/10 Date: 02/22/2023 3:16 PM Patient: Emily Macias MR#: [id number] : 1960 Age: 62 y.o. Referring Physician: Radha Irvin APRN-CNP Insurance: Payor: MEDICARE [employer] HMO OR PPO / Plan: MEDICARE [employer] HMO / Product Type: *No Product type* [...] 03/2012 SHOULDER ARTHROSCOPY Right 2012 FUNDOPLICATION ENDOSCOPIC 2003 HYSTERECTOMY 2003 CHOLECYSTECTOMY LAPAROSCOPIC [...] daily. 84 capsule 0 Cholecalciferol 250 MCG (19030 UT) capsule capsule Take by mouth daily. [...] by Nasal route once for 1 dose. Sargeant into the nose as directed. Call 911. If no response in 2 minutes use a new nasal spray in other nostril. Repeat until help arrives. 1Each [address] Omepraz[address] tablet Take by mouth daily. oxyCODONE 5 MG tablet Take 1-2 tabs po q 4-6 hours prn pain. Wean as tolerated. 20 tablet 0 Pancrelipase, Hbo-Lvmu-Foem, (CREON PO) Take 36,000 Units by mouth. [...] 84 capsule, Rfl: 0 Cholecalciferol 250 MCG (62889 UT) capsule capsule, Take by mouth daily., [...] by Nasal route once for 1 dose. Sargeant into the nose as directed. Call 911. [...] tolerated., Disp: 20 tablet, Rfl: 0 Pancrelipase, Qfc-Dtod-Bmik, (CREON PO), Take 36,000 Units by mouth. [...] zanaflex [tizanidine], and vancomycin. [facility] NotePROCEDURE: XR KNEE LEFT 2 VIEWS DATE: 01/29/2023 4:11 PM CDT COMPARISONS: 11/30/2022 CLINICAL INDICATION: tka FINDINGS: There is interval placement of prosthetic right knee. On previous images there was hemiarthroplasty which was removed and revised on today's exam. On today's exam prosthetic components are in good position and alignment with respect to each other and with respect to the kaibab distal femur proximal tibia and patella. Recent postop changes are identified. A drain overlies the medial aspect of the knee. IMPRESSION: Recent postop changes. Osseous structures and prosthetic components in good position and alignment..[facility]05-10-2023 Evaluation note* Encounter Date Diagnosis Assessment Notes Treatment Notes Treatment Clinical Notes January, Alternating constipation and diarrhea (ICD-10 - R19.8) [facility] Other 05-02-2023 Evaluation note* Encounter Date Diagnosis [...] - E11.65) D/C Ozempic Samples given of Farxiga and pt will trial those. [facility] Other 04-24-2023 Evaluation note* Encounter Date Diagnosis [...] scan in October of last year in [place], following a colonoscopy that was done in September Start Mesalamine Dec, Alternating constipation and diarrhea (ICD-10 - R19.8) Start low fod map diet Start probiotics [facility] Other 03-23-2023 History of Present illness Narrative* Paulo Kenneth, MORGAN - 11/30/2022 1:30 PM EDT Ortho Nurse [...] 11/30/2022 2:13 PM Patient: Emily Macias MR#: [id number] : 1960 Age: 61 y.o. Referring Physician: Self, Self Insurance: Payor: MEDICARE [employer] HMO [place] PPO / Plan[place] / Product Type: *No Product type* [...] [x]cane, []bracing Are you followed by a insurance job titles? [] [x] Name: Are you followed by pain management? [] [x] Name: Are you followed by any other specialists? [x] [] Name: RA Dr Felipa Santana Outpatient Medications Prior to Visit Medication Sig Dispense Refill Ascorbic Acid 1000 MG tablet Take 1 tablet by mouth daily. B Complex Vitamins (B COMPLEX 1 PO) Take by mouth. Biotin 56945 MCG tablet Take by mouth. Cholecalciferol 250 MCG (01848 UT) capsule capsule Take by mouth. Cobalamin [...] Take by mouth., Disp: , Rfl: Biotin 39672 MCG tablet, Take by mouth., Disp: , Rfl: Cholecalciferol 250 MCG (18971 UT) capsule capsule, Take by mouth., Disp: [...] symptoms. She has history of partial medial [place] uni knee on 08/13/[address] Lazar. [...] left knee. She has a medial partial [place] uni-arthroplasty in place with severe adjacent patellofemoral arthritis. IMPRESSION: 1.) History of left partial medial [place] uni knee on 08/13/[address] Lazar. [...] conversion from uni to total for optimal climatology professor management. We have discussed in great detail [...] of limb, and ultimately loss of life. carpet installation specialist expectations, risks and general implant survivorship were also discussed. Despite these risks, the patient would liketo proceed with surgical planning. Today, we will initiate the pre-surgical process including nasalMRSA screening, scheduling an appointment for [facility] [place] and the potential surgical date, andreviewing and [...] Take by mouth., Disp: , Rfl: Biotin 19229 MCG tablet, Take by mouth., Disp: , Rfl: Cholecalciferol 250 MCG (92256 UT) capsule capsule, Take by mouth., Disp: [...] migraines Zanaflex [Tizanidine] Hallucination documented in this [facility]01-31-2023 Evaluation note* Encounter Date Diagnosis Assessment Notes Treatment Notes Treatment Clinical Notes Sep, Fibromyalgia (ICD-10 - M79.7) handicap placard rx handwritten Sep, Type 2 diabetes mellitus with hyperglycemia, without long-term current use of insulin (ICD-10 - E11.65) good readings on home meter with present meds. Sep, Positive ADRI (antinuclear antibody) (ICD-10 - R76.8) Suggested getting on cancellation list at [facility] Other 01-13-2023 Evaluation note* Encounter Date Diagnosis Assessment Notes Treatment Notes Treatment Clinical Notes Sep, Positive ADRI (antinuclear antibody) (ICD-10 - R76.8) Sep, Fibromyalgia (ICD-10 - M79.7) [facility] Other 01-04-2023 Evaluation note* Encounter Date Diagnosis Assessment Notes Treatment Notes Treatment Clinical Notes Sep, Abdominal cramping (ICD-10 - R10.9) Sep, Type 2 diabetes mellitus with hyperglycemia, without long-term current use of insulin (ICD-10 - E11.65) advised holding or decreasing dose of ozempic to 0.25/week as this could relate to GI side effects [facility] Other 10-31-2022 NotePROCEDURE: XR TIB_FIB RT 2V COMPARISON: 08/24/2021 HISTORY: Pain in lower limb FINDINGS: BONES:No acute fracture or dislocation. Degenerative changes of the knee and ankle. Enthesopathic spurring of the calcaneus SOFT TISSUES:Negative. No visible soft tissue swelling. EFFUSION:None visible. OTHER: Negative. IMPRESSION: Osteoarthritis Electronically authenticated by: WANDA DIANE Date: 2022-07-10 13:36[facility]06-29-2022 NoteCONSULTATION CONSULTATION DATE: 03/08/2022 HISTORY OF PRESENT [...] of pain. Activities such as twisting, standing, placement secretary hours and physical activity aggravate her pain. [...] care and would like to move forward. [facility] Signed and Approved by: SABINA DELGADILLO . 03/09/2022 13:38:00[facility] Diagnosis Pain in prosthetic joint, sequela- Primary [facility] noteNo InformationNort [employer] Other Evaluation note* Diagnosis Hx of total knee arthroplasty, left- Primary documented [facility] this encounter [facility]No assessment information [facility] Work Phone: Evaluation note* Diagnosis Post-op pain- Primary Other acute postoperative pain Pain in prosthetic joint, subsequent encounter [facility] Diagnosis Hx of total knee arthroplasty, left- Primary [facility] this [facility] Narrative - Reported* Type Description Date [...] diabetes divya itus with hyperglycemia, unspecified whether climatology professor insulin use Medical History Fitzpatrick splints, right, [...] 2012 Surgical History LEFT UNIOCFORD KNEE REPLACEMENT 2017 Surgical History COLONOSCOPY Surgical History TONSILLECTOMY AND ADENOIDECTOMY Hospitalization History mono Hospitalization History [employer] Other [facility] general Narrative - Reported* Type Description Date [...] diabetes divya itus with hyperglycemia, unspecified whether senior living insulin use Medical History Fitzpatrick splints, right, [...] 01/29/2023 Hospitalization History mono Hospitalization History menegitis [facility] Other Reason for referral (narrative)* Consultation (Routine) - Patient to Arrange Specialty Diagnoses / Procedures Referred By Westley finnegan Referred To Contact Physical Therapy Diagnoses Hx of total knee arthroplasty, left Radha Irvin APRN-CNP [address] [place] [address] Referral ID Status Reason Start Date Expiration Date V isits Requested Visits Authorized [id number] Patient to Arrange 02/22/2023 03/18/2024 1 1 Scheduling Instructions . * Diagnostic X-Ray (Routine) - New Request Specialty Diagnoses / Procedures Referred By Westley finnegan Referred To Contact Diagnoses Hx of total knee arthroplasty, left Procedures XR KNEE LEFT 3 VIEWS Radha Irvin, DANIELLE [address] [place] [address] Referral ID Status Reason Start Date Expiration Date V isits Requested Visits Authorized [id number] New Request 02/20/2023 03/16/2024 1 1 [facility] Summary Purpose Family History No Family [...] 1 Abdominal cramping ( R10.9) Referral Organization [facility] [employer] reginaldo Referring Provider First Name Netta Referring Provider Last Name Lindsay Referring Provider Specialty [facility] LIFT12 Referred Organization [facility] Referred Provider Ismael Early Referred Address [address] [place],[phone] Referred Provider Specialty Gastroentero logy Referral Priority Routine Referral Appointment Date 2022-12-28 General Notes Sonali Cortez 10:30:02 AM >received today, notes locked and referral faxed Sonali Cortez 09/25/2022 10:48:23 AM >pt scheduled Reason 11/21/22 See phone note - this is related to a stock associate in [facility] testing labs. I do not have a copy of his labs. Diagnosis 1 Positive ADRI (antinu clear antibody) (R76.8) Referral Organization [facility] [employer] reginaldo Referring Provider First Name Netta Referring Provider Last Name Lindsay Referring Provider Specialty [facility] LIFT12 Referred Organization [facility] Referred Provider Cara Leo Referred Address [address] [place],[address] Referred Provider Specialty Rheumatology Referral Priority Routine Referral Appointment Date 2022-11-21 General Notes Sonali Cortez 09:22:28 AM >received today, notes attached and ins card attached. will call pt to see who she saw in [place] to get labs. Dana Sonali 09/25/2022 10:37:57 AM >spoke with patient and was provided Dr. Balbuena phone number [phone] to request labs. told patient I would send referral once I had the results to send with referral, and provided her Dr. Dowling number to call in a few days. SteviebreannakaleeSonali 09/26/2022 09:28:04 AM >received labs and faxed referral. JatinkaleeSonali 10/03/2022 10:01:58 AM >faxed first attempt letter Sonali Cortez 10/04/2022 12:01:37 PM >received fax back that pt has not been scheduled yet. will continue to follow up JatinkaleeSonali 10/10/2022 12:19:23 PM >faxed second attempt letter Sonali Cortez 10/10/2022 03:55:48 PM >received fax with appt date and time Specialty Diagnoses / Procedures Referred By Contac t Referred To Contact Diagnoses Pain in prosthetic joint, sequela Procedures XR BONE LENGTH STUDY Sagar Krause MD [address] [place] [address] Referral ID Status Reason Start Date Expiration Date V isits Requested Visits Authorized [id number] New Request 11/24/2022 12/19/2023 1 1 Specialty Diagnoses / Procedures Referred By Contac t Referred To Contact Diagnoses Pain in prosthetic joint, sequela Procedures XR KNEE LEFT 3 VIEWS Sagar Krause MD [address] [place] [address] Referral ID Status Reason Start Date Expiration Date V isits Requested Visits Authorized [id number] New Request 11/24/2022 12/19/2023 1 1 Specialty Diagnoses / Procedures Referred By Contac t Referred To Contact Diagnoses Post-op pain Procedures XR KNEE LEFT 3 VIEWS Sagar Krause MD [address] [place] [address] Referral ID Status Reason Start Date Expiration Date V isits Requested Visits Authorized [id number] New Request 08/06/2023 08/30/2024 1 1 Specialty Diagnoses / Procedures Referred By Contac t Referred To Contact Diagnoses Hx of total knee arthroplasty, left Procedures XR KNEE LEFT 3 VIEWS Radha Irvin, AGRONOMY PROFESSOR-MATERIAL CONTROLLER [address] [place] [address] Referral ID Status Reason Start Date Expiration Date V isits Requested Visits Authorized [id number] New Request 12/25/2023 01/18/2025 1 1 Chief Complaint and Reason for Visit Chief Complaint Abdominal Cramping, EPI Chief Complaint Abdominal Cramping, EPI Low back pain Additional Source Comments INFORMATION SOURCE (unrecogn ized section and content) DATE CREATED AUTHOR 09/08/2021 [facility] DATE CREATED AUTHOR AUTHOR'S ORGANIZ ATION [facility]/23/2023 [facility] DATE CREATED AUTHOR AUTHOR'S ORGANIZ ATION 06/26/[address] [facility] DATE CREATED AUTHOR AUTHOR'S ORGANIZ ATION 01/03/2024 [facility] DATE CREATED AUTHOR AUTHOR'S ORGANIZ ATION 01/26/2024 [facility] DATE CREATED AUTHOR AUTHOR'S ORGANIZ ATION 02/10/2024 [facility] REASON FOR VISIT (unrecogniz ed section and content) Specialty Diagnoses / Procedures Referred By Contac t Referred To Contact Diagnoses Pain in prosthetic joint, sequela Procedures XR BONE LENGTH STUDY Sagar Krause MD [address] [place] [address] Referral ID Status Reason Start Date Expiration Date V isits Requested Visits Authorized [id number] New Request 11/24/2022 12/19/2023 1 1 Reason Comments Pain Reason Comments Surgical Follow-up Specialty Diagnoses / Procedures Referred By Contac t Referred To Contact Diagnoses Post-op pain Procedures XR KNEE LEFT 3 VIEWS Sagar Krause MD [address] [place] [address] Referral ID Status Reason Start Date Expiration Date V isits Requested Visits Authorized [id number] New Request 08/06/2023 08/30/2024 1 1 Reason Comments Pain Specialty Diagnoses / Procedures Referred By Contac t Referred To Contact Diagnoses Hx of total knee arthroplasty, left Procedures XR KNEE LEFT 3 VIEWS Radha Irvin, AGRONOMY PROFESSOR-MATERIAL CONTROLLER [address] [place] [address] Referral ID Status Reason Start Date Expiration Date V isits Requested Visits Authorized [id number] New Request 12/25/2023 01/18/2025 1 1 Reason Comments Follow-up Care Teams (unrecognized sec tion and content) Artist'S Model Relationship Specialty Start Date End Date Netta Montoya MD [address] [place] [phone] PCP - General Family Medicine 10/20/22 Artist'S Model Relationship Specialty Start Date End Date Netta Montoya MD [address] [place] [phone] PCP - General Family Medicine 10/20/22 Artist'S Model Relationship Specialty Start Date End Date Netta Montoya MD [address] [place] [phone] PCP - General Family Medicine 10/20/22 Team Status: Active Member Role Status Dates Netta Montoya MD Primary Care Provider Active Team Status: Inactive Member Role Status Dates Siva Ron MD Attending Provider Active Netta Montoya MD Primary Care Provider Active Team Status: Inactive Member Role Status Dates Netta Montoya MD Primary Care Provider Active Cara Leo MD Attending Provider Active Artist'S Model Relationship Specialty Start Date End Date Netta Montoya MD [address] [place] [phone] PCP - General Family Medicine 10/20/22 Artist'S Model Relationship Specialty Start Date End Date Netta Montoya MD [address] [place] [phone] PCP - General Family Medicine 10/20/22 Artist'S Model Relationship Specialty Start Date End Date Netta Montoya MD [address] [place] [address] PCP - General Family Medicine 10/20/22 FOR [...] BE BASED ON THE PRIMARY CLINICAL RECORDS. [facility]. provides no warranty or guarantee of the accuracy or completeness of information in this document.
== END 2024-02-22 07:48 | disposition home or self-care (01) ==
LOC: MRI 07:48
PROVIDERS: PCP Family Medicine
DX: M77.42 Metatarsalgia, left foot (principal)
CPT/HCPCS: 73718

== ENCOUNTER 2024-05-07 12:35 | Outpatient (OUT) | payer MEDICARE, SELFPAY ==
[2024-05-07 13:26] LABS: TSH W/ REFLEX FT4 1.216 uIU/mL (0.358-3.740)
== END 2024-05-07 12:36 | disposition home or self-care (01) ==
LOC: LAB 12:39
PROVIDERS: PCP Family Medicine
DX: E03.9 Hypothyroidism, unspecified (principal)
CPT/HCPCS: 36415; 84443

== ENCOUNTER 2024-05-20 10:23 | Outpatient (OUT) | payer MEDICARE, SELFPAY ==
--- NOTE | 2024-05-20 10:28 | XR_ITS ---
The [address] [address] Patient Name: EMILY MACIAS MRN: [id number] date: 1960 Sex: F Assigned Patient Location: [facility] Current Patient Location: Accession/Order Number: [id number] Exam Date: 05/20/2024 10:31 Report Date: 05/21/2024 09:48 At the request of: ADELE CAMARGO Procedure: XR hip RT min 2V PROCEDURE: XR hip RT min 2V HISTORY: Hip Pain COMPARISON: None. FINDINGS: BONES:No fracture, acute abnormality, or significant arthropathy. SOFT TISSUES:No visible soft tissue swelling. EFFUSION:None visible. OTHER: Negative. XR/XR hip RT min 2V IMPRESSION: 1. No acute bone abnormality or significant degenerative joint disease. Electronically authenticated by: PELON ALEXANDRE Date: 05/21/2024 09:48
--- OUTSIDE RECORDS SUMMARY | 2024-05-20 10:46 | XMS_ITS | CCD ---
Author Organization [facility] Care Team Providers Care Glassware Selector Name Role Phone Netta Montoya Unavailable Siva Ron Unavailable MISC, DR BECERRA Admitting Unavailable MISC, DR BECERRA Attending Unavailable LINDSAY, DR NETTA Conti Primary Care Unavailable MISC, DR BECERRA Consulting Unavailable CIELO GARCIA Consulting Unavailable TONY DICKINSON Consulting Unavailable LINDSAY, DR NETTA Conti Primary Care Unavailable JANETT BALBUENA Attending Unavailable JANETT BALBUENA Admitting Unavailable JANETT BALBUENA Consulting Unavailable SABINA IBARRA Admitting Unavailable SABINA IBARRA Attending Unavailable LINDSAY, DR NETTA Conti Primary Care Unavailable FELIPA, DR MARROQUIN Consulting Unavailable LINDSAY, DR NETTA Conti Primary Care Unavailable FELIPA, DR AMRROQUIN Attending Unavailable FELIPA, DR MARROQUIN Admitting Unavailable LINDSAY, DR NETTA Conti Admitting Unavailable LINDSAY, DR NETTA Conti Attending Unavailable LINDSAY, DR NETTA Conti Primary Care Unavailable LINDSAY, DR NETTA Conti Consulting Unavailable REESE ., DR PAWEL oCnnors Admitting Unavailable REESE ., DR PAWEL Connors Attending Unavailable LINDSAY, DR NETTA Conti Primary Care Unavailable SABINA IBARRA Consulting Unavailable MARY ANN ., DR PAWEL Connors Admitting Unavailable REESE ., DR PAWEL Connors Attending Unavailable MONTOYA, DR NETTA Conti Primary Care Unavailable REESE [...] Erin Briceno Admitting Unavailable MONTOYA, DR NETTA Conit Admitting Unavailable MONTOYA, DR NETTA Conti Attending [...] Unavailable Montoya Netta LEVIN Primary Care Provider MD Siva Ron Attending Provider MD Netta Montoya Primary Care Provider MD Cara Leo Attending Provider Siva Ron Admitting UnavailNetta Pérez Primary Care Unavailable Siva Ron Attending UnavailCara Mancilla Attending Unavailable Felipa, Cara Admitting Unavailable Montoya, Netta Conti Primary Care Unavailable Janett Balbuena DPM Attending Juan Herron MD, Netta Calzada Primary Care UnaNetta Gonzalez MD Primary Care Unava Janett Goss DPM Attending Juan Herron [facility], [facility] Unava mila COHENM, Janett Govea Attending Unavailab CastellanosM, Janett Govea Attending Juan Herron MD, Netta [facility] Unava mila Montoya MD, [facility] Unava mila COHENM, Janett Govea Attending Juan Herron MD, [facility] Jackelineva mila Watson MD, Ricardo Campos Attending Unavailable MONTOYA, NETTA Primary Care Unavailable FOSTER, SAGAR Attending Unavailable FOSTER, SAGAR Referring Unavailable MONTOYA, NETTA Primary Care Unavailable FOSTER, SAGAR Attending Unavailable FOSTER, SAGAR Referring Unavailable MONTOYA, NETTA Primary Care Unavailable FOSTER, SAGAR Attending Unavailable FOSTER, SAGAR Referring Unavailable SELF, SELF Referring Unavailable BRANDEE, RADHA Attending Unavailable MONTOYA, NETTA Primary Care Unavailable BRANDEE, RADHA Referring Unavailable MONTOYA, NETTA Primary Care Unavailable BRANDEE, RADHA Attending Unavailable MONTOYA, NETTA Primary Care Unavailable SELF, SELF Referring Unavailable FOSTER, SAGAR Attending Unavailable BRANDEE, RADHA Referring Unavailable MONTOYA, NETTA E Primary Care Unavailable BRANDEE, RADHA Referring Unavailable MONTOYA, NETTA E Primary Care Unavailable BRANDEE, RADHA Referring Unavailable MONTOYA, NETTA E Primary Care Unavailable BRANDEE, RADHA Referring Unavailable MONTOYA, NETTA E Primary Care Unavailable Allergies Allergy Classification Reported Allergen(s) Allergy Type Date of Onset Reaction(s) Facility (20 sources) milnacipran; Translations: [Savella] Drug Allergy 09-02-20 13 SEVERE HEADACHES [facility] (19 sources) Morphine; Translations: [MORPHINE] Drug Allergy 11-19-19 21 Unknown [facility] (20 sources) tiZANidine; Translations: [Zanaflex] Drug Allergy 09-02-20 13 Hallucinations [facility] (12 sources) milnacipran; Translations: [MILNACIPRAN] Drug Allergy 02-10-20 17 Headache [facility] (12 sources) tiZANidine; Translations: [TIZANIDINE] Drug Allergy 02-10-20 17 Hallucination [facility] (2 sources) Morphine Drug Allergy [facility] (16 sources) Vancomycin Drug Allergy 01-30-20 23 Hives [facility] (7 sources) Allergies Reconciled Propensity to adverse reactions Unknown [facility] Other (7 sources) [place] *PSYCHOTHERAPEU TIC AND NEUROLOGICAL AGENTS Propensity to adverse reactions Unknown [facility] Other (1 source) milnacipran Drug Allergy 05-09-20 [facility] Repository (1 source) tiZANidine Drug Allergy 05-09-20 [facility] (1 source) Vancomycin Drug Allergy 05-09-20 [facility] Repository Medications Current Medications Medication Drug [...] WEEKLY Active acetaminophen 325 mg oral tablet (7 sources) Start: 01-29-2023 take 2 tablets by mouth every four hours as needed Acetaminophen 325 MG tablet Take 2 tablets by mouth every 4 hours as needed for Mild Pain. 50 tablet 1 01/29/2023 Active acetaminophen 325 mg / HYDROcodone bitartrate 5 mg oral tablet (4 sources) Opioid Agonist Start: 02-12-2023 take 1 [...] day with plain water Orally Active amylase 601574 unt / lipase 32514 unt / protease [id number] unt delayed release oral capsule (9 sources) Start: 01-25-2023 take 2 capsules by mouth three times daily at mealtime, then take 1 capsule by mouth four times daily Creon [id number] UNIT 2 capsules three times a day [...] aspirin 81 mg delayed release oral tablet (7 sources) Platelet Aggregation Inhibitor, Nonsteroidal Anti-inflammatory Drug [...] B Complex Vitamins (B COMPLEX 1 PO) (9 sources) B Complex Vitamins (B COMPLEX 1 PO) Take by mouth daily. Active B Complex Vitami ns (B COMPLEX 1 PO) Take by mouth daily. 0 Active B Complex Vitami ns (B COMPLEX 1 PO) Take by mouth. 0 Active baclofen 10 mg oral tablet (12 sources) gamma-Aminobutyric Acid-ergic Agonist baclofen 10 MG table t Take 2 tablets by mouth as needed. Active take 1 tablet by william th twice daily at mealtime as needed Baclofen 20 MG 1 tablet Administer witho ut regards to meals as needed Orally Twice a day Active biotin 10 mg oral tablet (2 sources) Biotin 84649 MCG tablet Take by mouth. 0 Active Calcium (15 sources) Phosphate Binder, Calcium Calciu m + D Active Calcium Carb-Cholecalciferol (CALCIUM + D3 PO) (7 sources) Calcium Carb-Cholecalciferol (CALCIUM + D3 PO) Take by mouth daily. Active Calcium Carb-Cho lecalciferol (CALCIUM + D3 PO) Take by mouth daily. 0 Active celecoxib 200 mg oral capsule (14 sources) Nonsteroidal Anti-inflammatory Drug Start: 03-23-2023 take [...] day Active cholecalciferol 0.25 mg oral capsule (10 sources) Vitamin D Cholecalciferol 250 MCG (57556 UT) capsule capsule Take by mouth daily. Active Vitamin D-3 25 M CG (1000 UT) 1/2 DAILY IN SUMMER Orally Once a day Active Cholecalciferol 250 MCG (05030 UT) capsule capsule Take by mouth. 0 Active cyclobenzaprine hydrochloride 5 mg oral tablet (2 sources) Muscle Relaxant Start: 08-13-2023 take 1 tablet by mouth every twenty-four hours Cyclobenzaprine HCl 5 MG 1 tablet at bedtime as needed Orally Once a day for 30 day(s) Aug, Active dapagliflozin 10 mg oral tablet (10 sources) Sodium-Glucose Cotransporter 2 Inhibitor Start: 01-11-2023 take 1 tablet by mouth every twenty-four hours Farxiga 10 MG 1 tablet Orally Once a day for 30 days samples January, Active take 1 tablet by mouth once alannah y dapagliflozin 5 MG tablet Take 1 tablet by mouth daily. Active 1 ml dexamethasone phosphate 4 mg/ml injection (4 sources) Corticosteroid Start: 12-21-2023 dexAMETHasone 4 MG/ML [...] Active docusate sodium 100 mg oral capsule (9 sources) Start: 01-29-2023 take 1 capsule by mouth twice daily Docusate 100 MG capsule Take 1 capsule by mouth 2 times daily. 60 capsule 01/29/2023 Active take 1 capsule by mouth twice da nelson Docusate (Stool Softener) 100 MG capsule Take 1 capsule by mouth 2 times daily. 0 Active estrogens, conjugated (correction) 0.625 mg/ml vaginal cream (5 sources) Estrogen [...] / vitamin b12 1 mg sublingual tablet (9 sources) Vitamin B12 Cobalamin Combin ations (B-12) [...] AM 10/02/2022 Active take 1 tablet by [facility] every twenty-four hours Levothyroxine Sodium 112 MCG 1 tablet Orally Once a day for 90 days Active lifitegrast 50 mg/ml ophthalmic solution (18 sources) Lymphocyte Function-Associated Antigen-1 Antagonist Start: 11-06-2022 [...] Active magnesium oxide 500 mg oral capsule (9 sources) Magnesium 500 MG capsule Take by mouth daily. Active melatonin 5 mg oral capsule (9 sources) Melatonin 5 MG capsule Take by mouth at bedtime. Active mesalamine 1200 mg delayed release oral tablet (19 sources) Aminosalicylate Start: 01-18-2023 take 4 tablets by mouth every twenty-four hours Mesalamine 1.2 GM 4 tablets Orally Once a day for 30 days January, Active Start: 01-18-2023 take 4 tablets by [facility] every twenty-four hours Mesalamine 1.2 GM 4 tablets Orally Once a day for 30 days January, Active Start: 01-01-2023 take 2 tablets by mouth once d aily Mesalamine 1.[address] tablet Take 2 tablets by mouth daily. 01/01/2023 Active take 2 tablets by [facility] every twenty-four hours Mesalamine 1.2 [...] 0 Active methylPREDNISolone 4 mg oral tablet (6 sources) Corticosteroid Start: 08-09-2023 methylPREDNIsolone 4 MG Tab Therapy Pack tablet Take 1 tablet by mouth As directed. follow package directions 21 tablet 08/09/2023 Active Multi For Her (15 sources) Multi For Her Ac tive Multiple Vitamins-Minerals (One Daily Calcium/Iron) tablet (9 sources) take 1 tablet by mouth once [...] tablet naloxone hydrochloride 40 mg/ml nasal spray (4 sources) Opioid Antagonist Start: 01-29-2023 End: 01-29-2023 naloxone 4 MG/0.1ML 1 spray by Nasal route once for 1 dose. [place] into the nose as directed. Call 911. If no response in 2 minutes use a new nasal spray in other nostril. Repeat until help arrives. 1 Each 01/29/2023 Active [place] 3 (5 sources) [place] 3 Active omeprazole 20 mg delayed release [...] Active oxyCODONE hydrochloride 5 mg oral tablet (4 sources) Opioid Agonist Start: 02-07-20 23 take [...] 2 MG/1.5ML as directed Subcutaneous Active Pancrelipase, Chc-Dmie-Zpar, (CREON PO) (7 sources) take 1 tablet by mouth once daily Pancrelipase, Dms-Uugc-Envm, (CREON PO) Take 36,000 Units by mouth. 2 tablet by mouth with each meal, 1 tablet by mouth with 1 snack daily Active take 1 tablet by mouth once alannah y Pancrelipase, Wpb-Xwnh-Lbit, (CREON PO) Take 36,000 Units by mouth. 2 tablet by mouth with each meal, 1 tablet by mouth with 1 snack daily 0 Active probiotic (2 sources) probiotic Active Probiotic Product (PROBIOTIC DAILY PO) (9 sources) Probiotic Produc t (PROBIOTIC DAILY PO) Take by mouth. Active Probiotic Produc t (PROBIOTIC DAILY PO) Take by mouth. 0 Active Propylene glycol (7 sources) Propylene Glycol (SYSTANE COMPLETE OP) Apply to eye as needed. Active Propylene Glycol (SYSTANE COMPLETE OP) Apply to eye as needed. 0 Active Robaxin-750 (5 sources) Robaxin-750 Acti ve Selenium (5 sources) Selenium Active SITagliptin 100 mg oral tablet (5 sources) Dipeptidyl Peptidase 4 Inhibitor Start: take 1 tablet by mouth every twenty-four hours Januvia 100 MG 1 tablet Orally Once a day for 90 days Mar, Active Specialty Vitamins Products (ICAPS lutein & zeaxanthin) Tab DR (9 sources) take 1 tablet by mouth once [...] tive traMADol hydrochloride 50 mg oral tablet (19 sources) Opioid Agonist Start: 02-16-2023 take 1 [...] Vitamin A 2400 MCG (8000 UT) tablet (9 sources) Vitamin A 2400 M CG (8000 UT) tablet Take by mouth daily. Active Vitamin A 2400 M CG (8000 UT) tablet Take by mouth daily. 0 Active Vitamin A 2400 M CG (8000 UT) tablet Take by mouth. 0 Active vitamin B12 (18 sources) Vitamin B12 Vitamin B12 Acti ve vitamin b6 100 mg oral table t (9 sources) Pyridoxine HCl ( B-6) 100 MG [...] 10 ml lidocaine hydrochloride 10 mg/ml injection (9 sources) Antiarrhythmic, Amide Local Anesthetic Start: 02-21-2024 End: 02-21-2024 Lidocaine 1% (PF) (XYLOCAINE MPF) 1 % injection 5 mL Start: 02-21-2024 End: 02-21-2024 5 mL, Intra-articular, ONCE NEEDED, 1 dose, Starting on Marleny 02/21/24 at 1310, Until Marleny 02/21/24 at 1310 Start: 11-30-2022 End: 11-30-2022 Lidocaine 1% (PF) [...] Not-Taking 1 ml triamcinolone acetonide 40 mg/ml injection (4 sources) Corticosteroid Start: End: triamcinolone (KENALOG-40) injection 1 mL Start: 02-21-2024 End: 02-21-2024 1 mL, Intra-articular, ONCE NEEDED, 1 dose, Starting on Marleny 02/21/24 at 1310, Until Marleny 02/21/24 at 1310 Start: 11-30-2022 End: 11-30-2022 triamcinolone (KENALOG-40) i njection 1 mL Problems Active Problems Problem Classification [...] Onset: 07-11-2022 Chronic Diabetes mellitus without complication (16 sources) Type 2 diabetes mellitus without complication; [...] Headache; Translations: [Headache] Episodic Heart valve disorders (7 sources) Aortic valve disorder; 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 [...] ankle] Chronic Other aftercare (1 source) 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; Translations: [OTH SIZE STAMPER CURRENT DRUG THERAPY] Onset: 12-02-2022 Episodic Other connective tissue disease (3 sources) History of left total knee replacement; [...] UNS] Onset: 08-27-2022 Chronic Residual codes; unclassified (7 sources) Sleep dysfunction with sleep stage disturbance; [...] Da te Episodic/Chronic Bacterial infection; unspecified site (7 sources) Bartonellosis; 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, 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 [...] of hip region] Onset: 08-07-2018 Episodic Other connective tissue disease (1 source) Other specified enthesopathies of left lower limb, excluding foot; Translations: [Other specified enthesopathies of left lower limb, excluding foot] Onset: 12-26-2023 Episodic Other gastrointestinal disorders (4 sources) Diarrhea, [...] in unspecified joint] Onset: 08-07-2018 Episodic Other screening for suspected conditions (not mental disorders or infectious disease) (11 sources) Encounter for screening mammogram for malignant [...] Test Name Value Interpretation Reference Range Facility No Panel Informationon 02-26 Radiology Study observation (narrative) [facility] LARGE JOINT/BURSA INJECTION AND/OR ASPIRATION: L kneeon 02-21-2024 Sagar Gordon MD 02/27/2024 1:38 PM LARGE JOINT/BURSA INJECTION AND/OR ASPIRATION: L knee Date/Time: 02/21/2024 1:10 PM Performed by: Sagar Gordon MD Authorized by: Sagar Gordon MD Supporting Documentation Indications: pain Procedure Details: Location: knee - L knee Local Anesthetic: lidocaine 1% Needle size: 18 G Medication Verification: I have personally verified and performed the final check of the medication(s) used in this procedure prior to administration. The following items were included during the verification process for medication(s) administered: drug name, strength, volume, expiration, physical integrity and appearance of the medication(s). Patient tolerance: patient tolerated the procedure well with no immediate complications The patient was prepped with Chloraprep. [facility] Sagar Gordon MD 02/27/2024 1:38 PM LARGE JOINT/BURSA INJECTION AND/OR ASPIRATION: L knee Date/Time: 02/21/2024 1:10 PM Performed by: Sagar Gordon MD Authorized by: Sagar Gordon MD Supporting Documentation Indications: pain Procedure Details: Location: knee - L knee Local Anesthetic: ethyl chloride (cold spray) [...] 1 %; 1 mL triamcinolone 40 MG/ML The patient was prepped with Betadine. [facility] No Panel Informationon 02-20 [facility] Podiatry Office/Clinic Noteo n 01-18-2024 Podiatry Office/Clinic [...] remember. Patient relates that they have tried [id number] pain relievers, padding, and modification of shoe [...] out of 10 sites as measured with [place] French monofilament bilateral, otherwise intact Gross motor [...] deep perone (more content not included)... Normal [facility] US Guidance/Localizationon 0 01-18-2024 US Guidance/Localization EXAM: Limited Diagnostic Musculoskeletal Ultrasound [with Ultrasound-Guided Injection of left superficial peroneal nerve at the anterior lateral ankle] CLINICAL HISTORY: Patient has concern for multiple peripheral nerve entrapments. History of left first metatarsophalangeal joint fusion with 3D implant TECHNIQUE: Musculoskeletal Ultrasound with ilab e Next Gen unit with [12 MHz][L10-22] [...] Electronically Signed in Other Vendor System) Normal [facility] Podiatry Office/Clinic Noteo n 12-20-2023 Podiatry Office/Clinic [...] out of 10 sites as measured with [place] French monofilament bilateral, otherwise intact Gross motor [...] and barby (more content not included)... Normal [facility] US Guidance/Localizationon 0 12-20-2023 US Guidance/Localization EXAM: Limited Diagnostic Musculoskeletal Ultrasound [with Ultrasound-Guided Injection of left saphenous nerve] CLINICAL HISTORY: Patient has concern for multiple peripheral nerve entrapments. History of left first metatarsophalangeal joint fusion with 3D implant TECHNIQUE: Musculoskeletal Ultrasound with ilab e Next Gen unit with [12 MHz][L10-22] [...] Electronically Signed in Other Vendor System) Normal [facility] XR Ankle 3 Views Bilateralon 12-20-2023 XR [...] Electronically Signed in Other Vendor System) Normal [facility] XR Foot 3 Views Bilateralon 12-20-2023 XR [...] Electronically Signed in Other Vendor System) Normal [facility] XR lumbar spine min 4V*on XR lumbar spine min 4V* [facility] [place] [address] [place] [address] XRay Report Signed Patient: Emily Macias MR#: [id number] : 1960 Acct:[id number] Age/Sex: 62 / F ADM Date: 06/19/23 Loc: XD Room: Type: [facility] Attending Dr: Cara Leo MD Copies to: [...] Lucy Thomas M.D.06/19/2023 4:01 PM Dictation Location: [place] [address] Transcribed By: FLYNN 06/19/23 1601 Dictated By: Lucy Thomas MD 06/19/23 1556 Signed By: 06/19/23 [address] [facility] [address] abdomen pelvis wo/w conon 05-09-2023 CT abdomen pelvis wo/w con [facility] [place] [address] CT Scan Report Signed Patient: Emily Macias MR#: [id number] : 1960 Acct:[id number] Age/Sex: 62 / F ADM Date: 05/09/23 Loc: Room: Type: [facility] Attending Dr: Siva Ron MD Copies [...] seen. Impression dictated by: Bar Sims Jr., D.OMonalisa05/09/2023 1:32 PM Dictation Location: [place] [address] Transcribed By: [facility] 05/09/23 1332 Dictated By: Bar Sims Jr, DO 05/09/23 1314 Signed By: 05/09/23 1332 Normal [facility] Glucose Glucometer (BldC) [M ass/Vol]Ordered By: Siva Ron on 05-09-2023 Glucose [Mass/Vol] 136 mg/dL [facility] Comment on above: Random Glucose Refer ence Range is dependent on time and content of last meal. Glucose of more than 200 mg/dL in a nonstressed, ambulatory subject supports the diagnosis of Diabetes Mellitus. Glucose Poct Glucometerson 0 05-09-2023 Commemt1 Glu2: Cleaned Meter Normal [facility] Comment on above: Result Comment: PERF ORMED BY: [facility] [address] [place] [address] PATHOLOGIST INTERACTIVE MEDIA SPECIALIST DINAH MARIE M.D. Performed By: #### G LULS #### Point of Care testing , Glucose [Mass/Vol] 136 mg/dL Normal [facility] Comment on above: Result Comment: [place] Glucose Reference Range is dependent on time and content of last meal. Glucose of more than 200 mg/dL in a nonstressed, ambulatory subject supports the diagnosis of Diabetes Mellitus. Performed By: #### G LULS #### Point of Care testing , No Panel InformationOrdered By: Siva Ron on 05-09-2023 Bedside Glucose Comment Glu2: cleaned meter [facility] US liveron 05-09-2023 US liver [facility] [place] [address] Ultrasound Report Signed Patient: Emily Macias MR#: [id number] : 1960 Acct:[id number] Age/Sex: 62 / F ADM Date: 05/09/23 Loc: Room: Type: [facility] Attending Dr: Siva Ron MD Ordering [...] Sims Jr., Bruce05/09/2023 12:36 PM Dictation Location: [place] [address] Tech: Leydi Thompson Transcribed By: FLYNN 05/09/23 1236 Dictated By: Bar Sims Jr, DO 05/09/23 1233 Signed By: 05/09/23 1236 Normal [facility] PANCREATIC ELASTASE FECALon 01-22-2023 Pancreatic Elastase, Fecal 128 ug Elast./g Critically low >200 [facility] Comment on above: Result Comment: Jihan re Pancreatic Insufficiency: <100 Moderate Pancreatic Insufficiency: 100 - 200 Normal: >200 Performed By: #### H PYLORI #### [facility] [address] [place] [address] Dr. Irene Cedillo LACTOFERRIN FECAL QUANTon Lactoferrin, Fecal, Quant. <1.00 Normal 0.00-7.24 [facility] Comment on above: Result Comment: Re [...] (IBS). Performed By: #### S EDR #### [facility] [address] [place] [address] Dr. Irene Cedillo CALPROTECTIN, FECALon 2022 Calprotectin, Fecal 139 ug/g Critically high 0-120 [facility] Comment on above: Result Comment: Conc entration Interpretation Follow-Up <16 - 50 ug/g Normal None >50 -120 ug/g Borderline Re-evaluate in 4-6 weeks >120 ug/g Abnormal Repeat as clinically indicated Performed By: #### H PYLORI #### [facility] [address] [place] [address] Dr. Irene Cedillo PANCREATIC ELASTASE FECALon 01-15-2023 Pancreatic Elastase, Fecal 161 ug Elast./g Critically low >200 [facility] Comment on above: Result Comment: Jihan re Pancreatic Insufficiency: <100 Moderate Pancreatic Insufficiency: 100 - 200 Normal: >200 Performed By: #### A NTI-NICOLLE #### [facility] [address] [place] [address] Dr. Irene Cedillo TSHon 01-09-2023 TSH 1.630 uIU/mL Normal 0.358-3.740 [facility] Comment on above: Performed By: #### T SH #### [facility] [address] [place] [address] Dr. Irene Cedillo ANTIHISTIONE ANTIBODIESon Anti-histone Abs 0.5 Units Normal 0.0-0.9 [facility] Comment on above: Result Comment: Nega tive <1.0 Weak Positive 1.0 - 1.5 Moderate Positive 1.6 - 2.5 Strong Positive >2.5 Performed By: #### C K, CRP #### [facility] [address] [place] [address] [address] Irene Cedillo LARGE JOINT/BURSA INJECTION AND/OR ASPIRATION: R kneeon 11-30-2022 Sagar Gordon MD 11/30/2022 3:00 PM LARGE JOINT/BURSA INJECTION [...] complications The patient was prepped with Betadine. [facility] Radiology Study observation (narrative) [facility] US PELVIS AND TRANSVAGon US PELVIS AND TRANSVAG EXAM: US PELVIS AND TRANSVAG HISTORY: Left lower quadrant pain COMPARISON: None. TECHNIQUE: Pelvic sonography was performed utilizing grayscale and color Doppler technique. FINDINGS/ IMPRESSION: 1. Hysterectomy. 2. Ovaries not visualized. 3. No adnexal mass. 4. No significant free fluid. Electronically authenticated by: BRI BERGER Date: 2022-11-10 15:54 Normal [facility] LUPUS ANTICOAGULANT PROFILEo n 10-27-2022 Anticardiolipin Ab, IgG <10 Normal [facility] Comment on above: Result Comment: Refe rence Range: Negative: <15 Indeterminate: 15 - 20 Low to medium positive: >20 - 80 High positive: >80 Performed By: #### L UPUSAC #### [facility] [address] [place] [address] [address] Irene Cedillo Anticardiolipin Ab, IgM <10 Normal [facility] Comment on above: Result Comment: Refe rence Range: Negative: <13 Indeterminate: 13 - 20 Low to medium positive: >20 - 80 High positive: >80 Performed By: #### L UPUSAC #### [facility] [address] [place] [address] [address] Irene Cedillo APTT 1:1 CLAIMS VICE PRESIDENT [facility] Comment on above: Result Comment: Test ing Not Indicated This test was developed and its performance characteristics determined by [facility]. It has not been cleared or approved by the [place] Food and Drug Administration. Performed By: #### L UPUSAC #### [facility] [address] [place] [address] Dr. Irene Cedillo APTT 1:1 [facility] Comment on above: Result Comment: Test ing Not Indicated This test was developed and its performance characteristics determined by [facility]. It has not been cleared or approved by the [place] Food and Drug Administration. Performed By: #### L UPUSAC #### [facility] [address] [place] [address] Dr. Irene Cedillo aPTT Coag (Bld) [Time] 23.0 s Normal [facility] Comment on above: Result Comment: This test has not been validated for monitoring unfractionated heparin therapy. aPTT-based therapeutic ranges for unfractionated heparin therapy have not been established. Consider ordering Heparin anti-Xa (unfractionated). Reference Range: 18 years and older: 22.9 - 30.2 Performed By: #### L UPUSAC #### [facility] [address] [address] [address] Irene Cedillo Beta-2 Glycoprotein I, IgA <10 Normal [facility] Comment on above: Result Comment: The reference interval reflects a 3SD or 99th percentile interval. Reference Range: Negative: <26 Performed By: #### L UPUSAC #### [facility] [address] [address] [address] Yilan Cedillo Beta-2 Glycoprotein I, IgG <10 Normal [facility] Comment on above: Result Comment: The reference interval reflects a 3SD or 99th percentile interval. Reference Range: Negative: <21 Performed By: #### L UPUSAC #### [facility] [address] [place] [address] Dr. Irene Cedillo Beta-2 Glycoprotein I, IgM <10 Normal [facility] Comment on above: Result Comment: The reference interval reflects a 3SD or 99th percentile interval. Reference Range: Negative: <33 Performed By: #### L UPUSAC #### [facility] [address] [address] [address] Irene Cedillo DRVVT Confirm Seconds NIY Normal [facility] Comment on above: Result Comment: Test ing Not Indicated Performed By: #### L UPUSAC #### [facility] [address] [place] [address] Dr. Irene Cedillo DRVVT Ratio NIY Normal [facility] Comment on above: Result Comment: Test ing Not Indicated Performed By: #### L UPUSAC #### [facility] [address] [address] [address] Irene Cedillo DRVVT Screen Seconds 33.2 sec Normal [facility] Comment on above: Result Comment: Refe rence Range: <= 47.0 Performed By: #### L UPUSAC #### [facility] [address] [place] [address] Dr. Irene Cedillo Hexagonal Phospholipid Neutral 0 sec Normal [facility] Comment on above: Result Comment: This value is NEGATIVE. This is a qualitative assay and is therefore reported as positive for lupus anticoagulant or negative. The quantitative value is provided as an aid in diagnosis. Reference Range: 0 - 11 Performed By: #### L UPUSAC #### [facility] [address] [place] [address] Dr. Irene Cedillo INR Coag (PPP) [Relative time] 0.9 {INR} Normal [facility] Comment on above: Result Comment: Refe rence Range: >1 month: 0.9 - 1.2 Performed By: #### L UPUSAC #### [facility] [address] [place] [address] Dr. Irene Cedillo LAC Interpretation Comment Normal [facility] Comment on above: Result Comment: A arelis pus anticoagulant is not detected. All antiphospholipid antibodies evaluated are normal. As antibody titers may fluctuate with time, repeat testing may be indicated. Please contact [employer] [facility] if further clarification is needed. Performed By: #### L UPUSAC #### [facility] [address] [place] [address] Dr. Irene Cedillo Platelet Neutralization 0.0 sec Normal [facility] Comment on above: Result Comment: Refe rence Range: 0.0 - 3.0 This test was developed and its performance characteristics determined by [facility]. It has not been cleared or approved by the Food and Drug Administration. Performed By: #### L UPUSAC #### [facility] [address] [place] [address] Dr. Irene Cedillo PT Coag (PPP) [Time] 10.0 s Normal [facility] Comment on above: Result Comment: Refe rence Range: 18 years and older: 9.1 - 12.0 Performed By: #### L UPUSAC #### [facility] [address] [place] [address] Dr. Irene Cedillo Thrombin Time 15.5 sec Normal [facility] Comment on above: Result Comment: Refe rence Range: 0.0 - 23.0 Performed By: #### L UPUSAC #### [facility] [address] [place] [address] Dr. Irene Cedillo ADRI by IFAon 10-23-2022 Antinuclear Antibodies, IFA Positive Abnormal [facility] Comment on above: Result Comment: Nega tive <1:80 Borderline 1:80 Positive >1:80 Performed By: #### T SH #### [facility] [address] [place] [address] Dr. Irene Cedillo Centriole Pattern Normal [facility] Comment on above: Performed By: #### T SH #### [facility] [address] [place] [address] Dr. Irene Cedillo Centromere Pattern Normal [facility] Comment on above: Performed By: #### T SH #### [facility] [address] [address] [address] Irene Cedillo Homogeneous Pattern 1:320 Critically high [facility] Comment on above: Result Comment: ICAP nomenclature: AC-1 Performed By: #### T SH #### [facility] [id number] Irene Cedillo Midbody Pattern Normal [facility] Comment on above: Performed By: #### T SH #### [facility] [address] [address] [address] Irene Cedillo Note: Comment Normal [facility] Comment on above: Result Comment: For more [...] titers Nucleosomes, Histones Drug-induced SLE Speckled Sm, HAND BANDER, SCL-70, SLE,MCTD,PSS (diffuse form), SS-A/SS-B Sjogrens Nucleolar SCL-70, PM-1/SCL High titers Scleroderma, PM/DM Centromere Centromere PSS (limited form) w/Crest syndrome variable Nuclear Dot [id number] Primary Biliary Cirrhosis Nuclear GP210, Primary Biliary Cirrhosis Membrane margie A,B,C Performed By: #### T SH #### [facility] [address] [place] [address] Dr. Irene Cedillo Nuclear Dot Pattern Normal [facility] Comment on above: Performed By: #### T SH #### [facility] [address] [place] [address] Dr. Irene Cedillo Nuclear Membrane Pattern Normal [facility] Comment on above: Performed By: #### T SH #### [facility] [address] [place] [address] Dr. Irene Cedillo Nucleolar Pattern Normal [facility] Comment on above: Performed By: #### T SH #### [facility] [address] [place] [address] Dr. Irene Cedillo PCNA Pattern Normal [facility] Comment on above: Performed By: #### T SH #### [facility] [address] [place] [address] Dr. Irene Cedillo Speckled Pattern Normal [facility] Comment on above: Performed By: #### T SH #### [facility] [address] [place] [address] Dr. Irene Cedillo Spindle Apparatus Pattern Normal [facility] Comment on above: Performed By: #### T SH #### [facility] [address] [place] [address] Dr. Irene Cedillo ALDOLASEon 10-19-2022 Aldolase 3.6 U/L Normal 3.3-10.3 [facility] Comment on above: Performed By: #### T SH #### [facility] [address] [place] [address] Dr. Irene Cedillo ANTI-CENTROMERE B ABon 10-19 Anti-Centromere B Antibodies <0.2 Normal 0.0-0.9 [facility] Comment on above: Performed By: #### S EDR #### [facility] [address] [place] [address] Dr. Irene Cedillo ANTI-DNA DS ABon 10-19-2022 Anti-DNA (DS) Ab Qn 1 IU/mL Normal 0-9 [facility] Comment on above: Result Comment: Nega tive <5 Equivocal 5 - 9 Positive >9 Performed By: #### C CPAB #### [facility] [address] [place] [address] Dr. Irene Cedillo ANTI-NICOLLE-1on 10-19-2022 Anti-Nicolle-1 <0.2 Normal 0.0-0.9 [facility] Comment on above: Performed By: #### A NTI-NICOLLE #### [facility] [address] [place] [address] Dr. Irene Cedillo ANTICHROMATIN ANTIBODIESon 0 10-19-2022 Antichromatin Antibodies 0.5 AI Normal 0.0-0.9 [facility] Comment on above: Performed By: #### C K, CRP #### [facility] [address] [place] [address] Dr. Irene Cedillo ANTIEXTRACTABLE NUCLEAR ANTI BODIESon 10-19-2022 HAND BANDER Antibodies <0.2 Normal 0.0-0.9 [facility] Comment on above: Performed By: #### H PYLORI #### [facility] [address] [place] [address] Dr. Irene Cedillo Performed By: #### C CPAB #### [facility] [address] [place] [address] Dr. Irene Cedillo Murray Antibodies <0.2 Normal 0.0-0.9 [facility] Comment on above: Performed By: #### H PYLORI #### [facility] [address] [place] [address] Dr. Irene Cedillo Performed By: #### C CPAB #### [facility] [address] [place] [address] Dr. Irene Cedillo ANTISCLERODERMA ABon 023 Antiscleroderma-70 Antibodies <0.2 Normal 0.0-0.9 [facility] Comment on above: Performed By: #### A NSCLER #### [facility] [address] [place] [address] Dr. Irene Cedillo C3 and C4 COMPLEMENTon 10-19 Complement C3, Serum 171 mg/dL Critically high 82-167 [facility] Comment on above: Performed By: #### H PYLORI #### [facility] [address] [place] [address] Dr. Irene Cedillo Complement C4, Serum 41 mg/dL Critically high 12-38 [facility] Comment on above: Performed By: #### H PYLORI #### [facility] [address] [place] [address] Dr. Irene Cedillo COMPLEMENT TOTAL (CH50)on Complement, Total (CH50) >60 Normal >41 [facility] Comment on above: Result Comment: Age Male [...] Performed By: #### C K, CRP #### [facility] [address] [place] [address] Dr. Irene Cedillo CYCLIC CITRULLINATED PEPTIDE AB (CCP)on 10-19-2022 CCP Antibodies IgG/IgA 3 units Normal 0-19 [facility] Comment on above: Result Comment: Nega tive <20 Weak positive 20 - 39 Moderate positive 40 - 59 Strong positive >59 Performed By: #### C CPAB #### [facility] [address] [place] [address] Dr. Irene Cedillo MITICHONDRIAL (M2) ANTIBODYo n 10-19-2022 Mitochondrial (M2) Antibody <20.0 Normal 0.0-20.0 [facility] Comment on above: Result Comment: Nega tive 0.0 - 20.0 Equivocal 20.1 - 24.9 Positive >24.9 . Mitochondrial (M2) Antibodies are found in 90-96% of patients with primary biliary cirrhosis. Performed By: #### C K, CRP #### [facility] [address] [place] [address] Dr. Irene Cedillo RHEUMATOID FACTORon 10-19-19 23 RA Latex Turbid. <10.0 Normal <14.0 [facility] Comment on above: Performed By: #### C CPAB #### [facility] [address] [place] [address] Dr. Irene Cedillo RPR QUANTon 10-19-2022 Rapid Plasma Reagin, Quant Non-Reactive Normal NonRea<1:1 [facility] Comment on above: Result Comment: Plea se Note: This test does not meet current guidelines for screening and diagnosis of syphilis. This test is intended for following treatment response in patients being treated for syphilis infection. To screen for syphilis infection, a reflex cascade that includes both RPR and a treponema-specific assay should be utilized, such as Treponema pallidum (Syphilis) Screening [place] (406069) or Rapid Plasma Reagin (RPR) Test With Reflex to Quantitative RPR and Confirmatory Treponema pallidum Antibodies (547561). Performed By: #### T SH #### [facility] [address] [place] [address] Dr. Irene Cedillo SJOGRENS ANTIBODIES (Anti SS A/B)on 10-19-2022 Sjogren's Anti-SS-A <0.2 Normal 0.0-0.9 [facility] Comment on above: Performed By: #### S EDR #### [facility] [address] [place] [address] Dr. Irene Cedillo Sjogren's Anti-SS-B <0.2 Normal 0.0-0.9 [facility] Comment on above: Performed By: #### S EDR #### [facility] [address] [place] [address] Dr. Irene Cedillo SMOOTH MUSCLE ANTIBODYon Actin (Smooth Muscle) Antibody 5 Units Normal 0-19 [facility] Comment on above: Result Comment: Nega tive 0 - 19 Weak positive 20 - 30 Moderate to strong positive >30 . Actin Antibodies are found in 52-85% of patients with autoimmune hepatitis or chronic active hepatitis and in 22% of patients with primary biliary cirrhosis. Performed By: #### C K, CRP #### [facility] [address] [place] [address] Dr. Irene Cedillo THYROGLOBULIN ABon Thyroglobulin Antibody <1.0 Normal 0.0-0.9 [facility] Comment on above: Result Comment: Thyr oglobulin Antibody measured by [facility] [place] [facility] Performed By: #### C CPAB #### [facility] [address] [place] [address] Dr. Irene Cedillo THYROID PEROXIDASE ABon 02 Thyroid Peroxidase (TPO) Ab 11 IU/mL Normal 0-34 [facility] Comment on above: Performed By: #### T SH #### [facility] [address] [place] [address] Dr. Irene Cedillo CBC AUTO DIFFon 10-18-2022 BASO # 0.1 103/ul Normal 0.0-0.1 [facility] Comment on above: Performed By: #### C K, CRP #### [facility] [address] [place] [address] Dr. Irene Cedillo Basophils/100 WBC (Bld) 0.7 % Normal 0.2-2.0 [facility] Comment on above: Performed By: #### C K, CRP #### [facility] [address] [place] [address] Dr. Irene Cedillo EO # 0.2 103/ul Normal 0.0-0.7 [facility] Comment on above: Performed By: #### C K, CRP #### [facility] [address] [place] [address] Dr. Irene Cedillo Eosinophils/100 WBC (Bld) 2.8 % Normal 0.9-7.0 [facility] Comment on above: Performed By: #### C K, CRP #### [facility] [address] [place] [address] Dr. Irene Cedillo Erythrocyte distribution width (RBC) [Ratio] 13.4 % Normal 11.0-15.0 [facility] Comment on above: Performed By: #### C K, CRP #### [facility] [address] [place] [address] Dr. Irene Cedillo Hematocrit (Bld) [Volume fraction] 43.6 % Normal 36.0-48.0 [facility] Comment on above: Performed By: #### C K, CRP #### [facility] [address] [place] [address] Dr. Irene Cedillo Hemoglobin (Bld) [Mass/Vol] 14.1 g/dL Normal 12.0-16.0 [facility] Comment on above: Performed By: #### C K, CRP #### [facility] [address] [place] [address] Dr. Irene Cedillo IG # 0.01 10e3/ul Normal 0.00-0.03 [facility] Comment on above: Performed By: #### C K, CRP #### [facility] [address] [place] [address] Dr. Irene Cedillo IG % 0.1 % Normal 0.0-0.5 [facility] Comment on above: Performed By: #### C K, CRP #### [facility] [address] [place] [address] Dr. Irene Cedillo LYMPH # 2.5 103/ul Normal 1.2-3.8 [facility] Comment on above: Performed By: #### C K, CRP #### [facility] [address] [place] [address] Dr. Irene Cedillo Lymphocytes/100 WBC (Bld) 35.9 % Normal 20.5-60.0 [facility] Comment on above: Performed By: #### C K, CRP #### [facility] [address] [place] [address] Dr. Irene Cedillo MANUAL DIFF REQ NO Normal [facility] Comment on above: Performed By: #### C K, CRP #### [facility] [address] [place] [address] Dr. Irene Cedillo MCH (RBC) [Entitic mass] 29.6 pg Normal 26.7-34.0 [facility] Comment on above: Performed By: #### C K, CRP #### [facility] [address] [place] [address] Dr. Irene Cedillo MCHC (RBC) [Mass/Vol] 32.3 g/dL Normal 29.9-35.2 [facility] Comment on above: Performed By: #### C K, CRP #### [facility] [address] [place] [address] Dr. Irene Cedillo MCV (RBC) [Entitic vol] 91.6 fL Normal 81.0-99.0 [facility] Comment on above: Performed By: #### C K, CRP #### [facility] [address] [place] [address] Dr. Irene Cedillo MONO # 0.4 103/ul Normal 0.3-0.8 [facility] Comment on above: Performed By: #### C K, CRP #### [facility] [address] [place] [address] Dr. Irene Cedillo Monocytes/100 WBC (Bld) 5.2 % Normal 1.7-12.0 [facility] Comment on above: Performed By: #### C K, CRP #### [facility] [address] [address] [address] Irene Cedillo NEUT # 3.8 103/ul Normal 1.4-6.5 [facility] Comment on above: Performed By: #### C K, CRP #### [facility] [address] [place] [address] Dr. Irene Cedillo Neutrophils/100 WBC (Bld) 55.3 % Normal 43.0-75.0 [facility] Comment on above: Performed By: #### C K, CRP #### [facility] [address] [place] [address] Dr. Irene Cedillo Platelet mean volume (Bld) [Entitic vol] 9.7 fL Normal 9.5-13.5 [facility] Comment on above: Performed By: #### C K, CRP #### [facility] [address] [place] [address] Dr. Irene Cedillo PLT 271 103/ul Normal 150-450 [facility] Comment on above: Performed By: #### C K, CRP #### [facility] [address] [place] [address] Dr. Irene Cedillo RBC 4.76 106/ul Normal 4.20-5.40 [facility] Comment on above: Performed By: #### C K, CRP #### [facility] [address] [place] [address] Dr. Irene Cedillo WBC 6.9 103/ul Normal 4.0-11.0 [facility] Comment on above: Performed By: #### C K, CRP #### [facility] [address] [place] [address] Dr. Irene Cedillo CPKon 10-18-2022 CK [Catalytic activity/Vol] 57 U/L Normal 26-192 [facility] Comment on above: Performed By: #### T SH #### [facility] [address] [place] [address] Dr. Irene Cedillo CRPon 10-18-2022 CRP 0.8 mg/dL Normal <=1.0 [facility] Comment on above: Performed By: #### T SH #### [facility] [address] [place] [address] Dr. Irene Cedillo FREE T4on 10-18-2022 Free T4 [Mass/Vol] 1.07 ng/dL Normal 0.76-1.46 [facility] Comment on above: Performed By: #### C K, CRP #### [facility] [address] [place] [address] Dr. Irene Cedillo PROF 14(COMP METB)on 023 Albumin [Mass/Vol] 3.9 g/dL Normal 3.4-5.0 [facility] Comment on above: Performed By: #### T SH #### [facility] [address] [place] [address] Dr. Irene Cedillo Albumin/Globulin [Mass ratio] 1.1 {ratio} Normal [facility] Comment on above: Performed By: #### T SH #### [facility] [address] [place] [address] Dr. Irene Cedillo ALP [Catalytic activity/Vol] 90 U/L Normal 46-116 [facility] Comment on above: Performed By: #### T SH #### [facility] [address] [place] [address] Dr. Irene Cedillo ALT [Catalytic activity/Vol] 32 U/L Normal 14-59 [facility] Comment on above: Performed By: #### T SH #### [facility] [address] [place] [address] Dr. Irene Cedillo Anion gap [Moles/Vol] 13.8 mmol/L Normal [facility] Comment on above: Performed By: #### T SH #### [facility] [address] [place] [address] Dr. Irene Cedillo AST [Catalytic activity/Vol] 26 U/L Normal 15-37 [facility] Comment on above: Performed By: #### T SH #### [facility] [address] [place] [address] Dr. Irene Cedillo Bilirubin [Mass/Vol] 0.2 mg/dL Normal 0.2-1.0 [facility] Comment on above: Performed By: #### T SH #### [facility] [address] [address] [address] Irene Cedillo Calcium [Mass/Vol] 9.1 mg/dL Normal 8.5-10.1 [facility] Comment on above: Performed By: #### T SH #### [facility] [address] [address] [address] Irene Cedillo Chloride [Moles/Vol] 102 mmol/L Normal 98-107 [facility] Comment on above: Performed By: #### T SH #### [facility] [address] [place] [address] Dr. Irene Cedillo CO2 [Moles/Vol] 25.4 mmol/L Normal 21.0-32.0 [facility] Comment on above: Performed By: #### T SH #### [facility] [address] [place] [address] Dr. Irene Cedillo Creatinine [Mass/Vol] 0.64 mg/dL Normal 0.55-1.02 [facility] Comment on above: Performed By: #### T SH #### [facility] [address] [place] [address] Dr. Irene Cedillo EGFR-AF [place] >60 Normal >=60 [facility] Comment on above: Performed By: #### T SH #### [facility] [address] [place] [address] Dr. Irene Cedillo EGFR-NON AF [place] >60 Normal >=60 [facility] Comment on above: Performed By: #### T SH #### [facility] [address] [place] [address] Dr. Irene Cedillo Globulin (S) [Mass/Vol] 3.6 g/dL Normal [facility] Comment on above: Performed By: #### T SH #### [facility] [address] [place] [address] Dr. Irene Cedillo Glucose [Mass/Vol] 132 mg/dL Critically high 74-106 [facility] Comment on above: Performed By: #### T SH #### [facility] [address] [place] [address] Dr. Irene Cedillo Potassium [Moles/Vol] 4.2 mmol/L Normal 3.5-5.1 [facility] Comment on above: Performed By: #### T SH #### [facility] [address] [address] [address] Irene Cedillo Protein [Mass/Vol] 7.5 g/dL Normal 6.4-8.2 [facility] Comment on above: Performed By: #### T SH #### [facility] [address] [address] [address] Irene Cedillo Sodium [Moles/Vol] 137 mmol/L Normal 136-145 [facility] Comment on above: Performed By: #### T SH #### [facility] [address] [place] [address] Dr. Irene Cedillo Urea nitrogen [Mass/Vol] 19.0 mg/dL Critically high 7.0-18.0 [facility] Comment on above: Performed By: #### T SH #### [facility] [address] [place] [address] Dr. Irene Cedillo Urea nitrogen/Creatinine [Mass ratio] 29.7 mg/mg Normal [facility] Comment on above: Performed By: #### T SH #### [facility] [address] [place] [address] Dr. Irene Cedillo PROTIMEon 10-18-2022 INR Coag (PPP) [Relative time] {INR} Normal [facility] Comment on above: Performed By: #### C K, CRP #### [facility] [address] [place] [address] Dr. Irene Cedillo INR GUIDELINES SEE BELOW Normal [facility] Comment on above: Result Comment: JUAN RAMON RED INR: 2.0 - 3.0 CONDITIONS NOT LISTED BELOW 2.5 - 3.5 FOR PROSTHETIC HEART VALVE REPLACEMENT 2.5 - 3.5 RECURRENT THROMBOSIS Performed By: #### C K, CRP #### [facility] [address] [place] [address] Dr. Irene Cedillo PT Coag (PPP) [Time] 9.8 s Normal 9.0-11.6 [facility] Comment on above: Performed By: #### C K, CRP #### [facility] [address] [place] [address] Dr. Irene Cedillo PTTon 10-18-2022 aPTT Coag (Bld) [Time] 26.0 s Normal 22.3-36.2 [facility] Comment on above: Performed By: #### C K, CRP #### [facility] [address] [place] [address] Dr. Irene Cedillo SED RATE WESTERGREN 2022 SED RATE 42 mm/hr Critically high <=30 [facility] Comment on above: Performed By: #### S EDR #### [facility] [address] [place] [address] Dr. Irene Cedillo TSHon 10-18-2022 TSH 0.718 uIU/mL Normal 0.358-3.740 [facility] Comment on above: Performed By: #### T SH #### [facility] [address] [place] [address] Dr. Irene Cedillo UA RANDOM W/MICROSCOPICon BACTERIA NONE SEEN Normal NONE SEEN [facility] Comment on above: Performed By: #### C CPAB #### [facility] [address] [place] [address] Dr. Irene Cedillo Bilirubin Ql (U) Negative Normal NEGATIVE [facility] Comment on above: Performed By: #### C CPAB #### [facility] [address] [place] [address] Dr. Irene Cedillo CAST NONE SEEN Normal NONE SEEN [facility] Comment on above: Performed By: #### C CPAB #### [facility] [address] [place] [address] Dr. Irene Cedillo Clarity (U) CLEAR Normal CLEAR [facility] Comment on above: Performed By: #### C CPAB #### [facility] [address] [place] [address] Dr. Irene Cedillo Color (U) LT. YELLOW Normal YELLOW [facility] Comment on above: Performed By: #### C CPAB #### [facility] [address] [place] [address] Dr. Irene Cedillo Crystals LM Nom (Urine sed) NONE SEEN Normal NONE SEEN [facility] Comment on above: Performed By: #### C CPAB #### [facility] [address] [place] [address] Dr. Irene Cedillo Epithelial cells LM Ql (Urine sed) NONE SEEN Normal NONE SEEN /RARE [facility] Comment on above: Performed By: #### C CPAB #### [facility] [address] [place] [address] Dr. Irene Cedillo Glucose Ql (U) Negative Normal NEGATIVE [facility] Comment on above: Performed By: #### C CPAB #### [facility] [address] [place] [address] Dr. Irene Cedillo Hemoglobin Ql (U) Negative Normal NEGATIVE [facility] Comment on above: Performed By: #### C CPAB #### [facility] [address] [place] [address] Dr. Irene Cedillo Ketones Ql (U) Negative Normal NEGATIVE [facility] Comment on above: Performed By: #### C CPAB #### [facility] [address] [place] [address] Dr. Irnee Cedillo LEUKOCYTES Negative Normal NEGATIVE [facility] Comment on above: Performed By: #### C CPAB #### [facility] [address] [place] [address] Dr. Irene Cedillo MUCOUS NONE SEEN Normal NONE SEEN [facility] Comment on above: Performed By: #### C CPAB #### [facility] [address] [place] [address] Dr. Irene Cedillo Nitrite Ql (U) Negative Normal NEGATIVE [facility] Comment on above: Performed By: #### C CPAB #### [facility] [address] [place] [address] Dr. Irene Cedillo pH (U) 5.5 [pH] Normal 5-9 [facility] Comment on above: Performed By: #### C CPAB #### [facility] [address] [place] [address] Dr. Irene Cedillo RBC 0-2 Normal 0-2 [facility] Comment on above: Performed By: #### C CPAB #### [facility] [address] [place] [address] Dr. Irene Cedillo SPEC GRAVITY 1.020 Normal 1.005-<=1.025 [facility] Comment on above: Performed By: #### C CPAB #### [facility] [address] [place] [address] Dr. Irene Cedillo UA PROTEIN Negative Normal NEGATIVE/ TRACE [facility] Comment on above: Performed By: #### C CPAB #### [facility] [address] [place] [address] Dr. Irene Cedillo Urobilinogen Qn (U) 0.2 {Junior'U}/dL Normal 0.2 - 1. 0 [facility] Comment on above: Performed By: #### C CPAB #### [facility] [address] [place] [address] Dr. Irene Cedillo WBC NONE SEEN Normal NONE SEEN [facility] Comment on above: Performed By: #### C CPAB #### [facility] [address] [place] [address] Dr. Irene Cedillo HLA B 27on 09-21-2022 HLA-B27 Negative Normal [facility] Comment on above: Result Comment: HLA- B*27 Negative B27 allele interpretation for all loci based on IMGT/HLA database version 3.44 This test was developed and its performance characteristics determined by [facility]. It has not been cleared or approved by the Food and Drug Administration. [facility] CLIA ID Number [id number] . This test was performed using PCR (Polymerase Chain Reaction)/SSOP (Sequence Specific Oligonucleotide Probes) technique. SBT (Sequence Based Typing) and/or SSP (Sequence Specific Primers) may be used as supplemental methods when necessary. Please contact [facility] Customer Service at if you have any questions. . Director of [facility] Laboratory Dr Kris Salinas, PhD Performed By: #### C CPAB #### [facility] [address] [place] [address] Dr. Irene Cedillo ADRI by IFAon 09-15-2022 Antinuclear Antibodies, IFA Positive Abnormal [facility] Comment on above: Result Comment: Nega tive <1:80 Borderline 1:80 Positive >1:80 Performed By: #### S EDR #### [facility] [address] [address] [address] Irene Cedillo Centriole Pattern Normal [facility] Comment on above: Performed By: #### S EDR #### [facility] [address] [address] [address] Irene Cedillo Centromere Pattern Normal [facility] Comment on above: Performed By: #### S EDR #### [facility] [address] [address] [address] Irene Cedillo Homogeneous Pattern 1:160 Critically high [facility] Comment on above: Result Comment: ICAP nomenclature: AC-1 Performed By: #### S EDR #### [facility] [address] [address] [address] Irene Cedillo Midbody Pattern Normal [facility] Comment on above: Performed By: #### S EDR #### [facility] [address] [address] [address] Irene Cedillo Note: Comment Normal [facility] Comment on above: Result Comment: For more [...] titers Nucleosomes, Histones Drug-induced SLE Speckled Sm, HAND BANDER, SCL-70, SLE,MCTD,PSS (diffuse form), SS-A/SS-B Sjogrens Nucleolar SCL-70, PM-1/SCL High titers Scleroderma, PM/DM Centromere Centromere PSS (limited form) w/Crest syndrome variable Nuclear Dot [id number] Primary Biliary Cirrhosis Nuclear GP210, Primary Biliary Cirrhosis Membrane margie A,B,C Performed By: #### S EDR #### [facility] [address] [place] [address] [id number] [address] Irene Cedillo Nuclear Dot Pattern Normal [facility] [place] Comment on above: Performed By: #### S EDR #### [facility] [address] [address] [address] Irene Cedillo Nuclear Membrane Pattern Normal [facility] Comment on above: Performed By: #### S EDR #### [facility] [address] [address] [address] Irene Cedillo Nucleolar Pattern Normal [facility] Comment on above: Performed By: #### S EDR #### [facility] [address] [address] [address] Irene Cedillo PCNA Pattern Normal [facility] Comment on above: Performed By: #### S EDR #### [facility] [address] [address] [address] Irene Cedillo Speckled Pattern Normal [facility] Comment on above: Performed By: #### S EDR #### [facility] [address] [place] [address] Dr. Irene Cedillo Spindle Apparatus Pattern Normal [facility] Comment on above: Performed By: #### S EDR #### [facility] [address] [place] [address] Dr. Irene Cedillo CYCLIC CITRULLINATED PEPTIDE AB (CCP)on 09-15-2022 CCP Antibodies IgG/IgA 0 units Normal 0-19 [facility] Comment on above: Result Comment: Nega tive <20 Weak positive 20 - 39 Moderate positive 40 - 59 Strong positive >59 Performed By: #### C CPAB #### [facility] [address] [place] [address] Dr. Irene Cedillo RHEUMATOID FACTORon 09-15-19 23 RA Latex Turbid. <10.0 Normal <14.0 [facility] Comment on above: Performed By: #### C K, CRP #### [facility] [address] [place] [address] Dr. Irene Cedillo CBC AUTO DIFFon 09-13-2022 BASO # 0.0 103/ul Normal 0.0-0.1 [facility] Comment on above: Performed By: #### H PYLORI #### [facility] [address] [address] [address] Irene Cedillo Basophils/100 WBC (Bld) 0.4 % Normal 0.2-2.0 [facility] Comment on above: Performed By: #### H PYLORI #### [facility] [address] [place] [address] Dr. Irene Cedillo EO # 0.3 103/ul Normal 0.0-0.7 [facility] Comment on above: Performed By: #### H PYLORI #### [facility] [address] [place] [address] Dr. Irene Cedillo Eosinophils/100 WBC (Bld) 4.4 % Normal 0.9-7.0 [facility] Comment on above: Performed By: #### H PYLORI #### [facility] [address] [place] [address] Dr. Irene Cedillo Erythrocyte distribution width (RBC) [Ratio] 13.2 % Normal 11.0-15.0 [facility] Comment on above: Performed By: #### H PYLORI #### [facility] [address] [place] [address] Dr. Irene Cedillo Hematocrit (Bld) [Volume fraction] 41.5 % Normal 36.0-48.0 [facility] Comment on above: Performed By: #### H PYLORI #### [facility] [address] [place] [address] Dr. Irene Cedillo Hemoglobin (Bld) [Mass/Vol] 14.0 g/dL Normal 12.0-16.0 [facility] Comment on above: Performed By: #### H PYLORI #### [facility] [address] [place] [address] Dr. Irene Cedillo IG # 0.02 10e3/ul Normal 0.00-0.03 [facility] Comment on above: Performed By: #### H PYLORI #### [facility] [address] [place] [address] Dr. Irene Cedillo IG % 0.3 % Normal 0.0-0.5 [facility] Comment on above: Performed By: #### H PYLORI #### [facility] [address] [place] [address] Dr. Irene Cedillo LYMPH # 2.5 103/ul Normal 1.2-3.8 [facility] Comment on above: Performed By: #### H PYLORI #### [facility] [address] [place] [address] Dr. Irene Cedillo Lymphocytes/100 WBC (Bld) 34.4 % Normal 20.5-60.0 [facility] Comment on above: Performed By: #### H PYLORI #### [facility] [address] [place] [address] Dr. Irene Cedillo MANUAL DIFF REQ NO Normal [facility] Comment on above: Performed By: #### H PYLORI #### [facility] [address] [place] [address] Dr. Irene Cedillo MCH (RBC) [Entitic mass] 30.0 pg Normal 26.7-34.0 [facility] Comment on above: Performed By: #### H PYLORI #### [facility] [address] [place] [address] Dr. Irene Cedillo MCHC (RBC) [Mass/Vol] 33.7 g/dL Normal 29.9-35.2 [facility] Comment on above: Performed By: #### H PYLORI #### [facility] [address] [place] [address] Dr. Irene Cedillo MCV (RBC) [Entitic vol] 88.9 fL Normal 81.0-99.0 [facility] Comment on above: Performed By: #### H PYLORI #### [facility] [address] [place] [address] Dr. Irene Cedillo MONO # 0.4 103/ul Normal 0.3-0.8 [facility] Comment on above: Performed By: #### H PYLORI #### [facility] [address] [place] [address] Dr. Irene Cedillo Monocytes/100 WBC (Bld) 5.6 % Normal 1.7-12.0 [facility] Comment on above: Performed By: #### H PYLORI #### [facility] [address] [place] [address] Dr. Irene Cedillo NEUT # 4.0 103/ul Normal 1.4-6.5 [facility] Comment on above: Performed By: #### H PYLORI #### [facility] [address] [address] [address] Irene Cedillo Neutrophils/100 WBC (Bld) 54.9 % Normal 43.0-75.0 [facility] Comment on above: Performed By: #### H PYLORI #### [facility] [address] [address] [address] Irene Cedillo Platelet mean volume (Bld) [Entitic vol] 9.6 fL Normal 9.5-13.5 [facility] Comment on above: Performed By: #### H PYLORI #### [facility] [address] [address] [address] Irene Cedillo PLT 314 103/ul Normal 150-450 [facility] Comment on above: Performed By: #### H PYLORI #### [facility] [address] [place] [address] Dr. Irene Cedillo RBC 4.67 106/ul Normal 4.20-5.40 [facility] Comment on above: Performed By: #### H PYLORI #### [facility] [address] [place] [address] Dr. Irene Cedillo WBC 7.3 103/ul Normal 4.0-11.0 [facility] Comment on above: Performed By: #### H PYLORI #### [facility] [address] [place] [address] Dr. Irene Cedillo CRPon 09-13-2022 CRP 0.3 mg/dL Normal <=1.0 [facility] Comment on above: Performed By: #### C K, CRP #### [facility] [address] [place] [address] Dr. Irene Cedillo RENAL FUNCTION PANELon 09-13 Albumin [Mass/Vol] 3.7 g/dL Normal 3.4-5.0 [facility] Comment on above: Performed By: #### R ENAL #### [facility] [address] [place] [address] Dr. Irene Cedillo Calcium [Mass/Vol] 9.3 mg/dL Normal 8.5-10.1 [facility] Comment on above: Performed By: #### R ENAL #### [facility] [address] [address] [address] Irene Cedillo Chloride [Moles/Vol] 105 mmol/L Normal 98-107 [facility] Comment on above: Performed By: #### R ENAL #### [facility] [address] [address] [address] Irene Cedillo CO2 [Moles/Vol] 30.5 mmol/L Normal 21.0-32.0 [facility] Comment on above: Performed By: #### R ENAL #### [facility] [address] [address] [address] Irene Cedillo Creatinine [Mass/Vol] 0.64 mg/dL Normal 0.55-1.02 [facility] Comment on above: Performed By: #### R ENAL #### [facility] [address] [place] [address] Dr. Irene Cedillo EGFR-AF COSTA RICAN >60 Normal >=60 [facility] Comment on above: Performed By: #### R ENAL #### [facility] [address] [place] [address] Dr. Irene Cedillo EGFR-NON AF [place]STA R[place] >60 Normal >=60 [facility] Comment on above: Performed By: #### R ENAL #### [facility] [address] [address] [address] Irene Cedillo Glucose [Mass/Vol] 130 mg/dL Critically high 74-106 [facility] Comment on above: Performed By: #### R ENAL #### [facility] [address] [place] [address] Dr. Irene Cedillo Phosphate [Mass/Vol] 3.9 mg/dL Normal 2.6-4.7 [facility] Comment on above: Performed By: #### R ENAL #### [facility] [address] [place] [address] Dr. Irene Cedillo Potassium [Moles/Vol] 4.0 mmol/L Normal 3.5-5.1 [facility] Comment on above: Performed By: #### R ENAL #### [facility] [address], [place] [address] Dr. Irene Cedillo Sodium [Moles/Vol] 143 mmol/L Normal 136-145 [facility] Comment on above: Performed By: #### R ENAL #### [facility] [address], [place] [address] Dr. Irene Cedillo Urea nitrogen [Mass/Vol] 16.0 mg/dL Normal 7.0-18.0 [facility] Comment on above: Performed By: #### R ENAL #### [facility] [address] [address] [address] [facility] mm/hr Normal <=30 [facility] Comment on above: Performed By: #### C K, CRP #### [facility] [address] [place] [address] Dr. Irene Cedillo MRI ANKLE LT WO [...] by: TONY DICKINSON Date: 2022-08-26 09:36 Normal [facility] MG MAMM SCREEN 3D RIAN CADon 08-08-2022 MG MAMM SCREEN 3D RIAN CAD Patient: EMILY MACIAS Exam Date: 08/08/2022 : 1960 Gender:F Ordering : DR. KENDRA MCKINLEY M.D. Admission #: [id number] Family : DR NETTA MONTOYA M.D. Order #: [id number] CLICK HERE TO VIEW EXAM RADIOLOGY REPORT [...] breast cancer at age 78. LOCATION: [facility] BREAST COMPOSITION: Heterogeneously dense,which may obscure small [...] Alexandre M.D. on 08/09/2022 at 15:10 Normal [facility] GLYCOHEMOGLOBIN A1Con 2021 ADA RECOMMENDATION SEE BELOW Normal [facility] Comment on above: Result Comment: ADA RECOMMENDED LIMIT 4.0 - 6.0 ADA THERAPEUTIC TARGET < 7.0 ACTION SUGGESTED > 7.0 Performed By: #### C CPAB #### [facility] [address] [place] [address] Dr. Irene Cedillo Glucose [Mass/Vol] 128 mg/dL Normal [facility] Comment on above: Performed By: #### C CPAB #### [facility] [address] [address] [address] Irene Cedillo HbA1c (Bld) [Mass fraction] 6.1 % Normal 4.5-6.2 [facility] Comment on above: Performed By: #### C CPAB #### [facility] [address] [address] [address] Irene Cedillo XR FOOT RIAN MIN [...] PELON ALEXANDRE Date: 2022-07-06 06:21 Normal [facility] OVA AND PARASITE EXAMINATION on 04-13-2022 Ova + Parasite Exam Final report Normal [facility] Comment on above: Result Comment: Thes e results were obtained using wet preparation(s) and trichrome stained smear. This test does not include testing for Cryptosporidium parvum, Cyclospora, or Microsporidia. Performed By: #### S EDR #### [facility] [address] [place] [address] Dr. Irene Cedillo Result 1 Comment Normal [facility] Comment on above: Result Comment: No o va, cysts, or parasites seen. . One negative specimen does not rule out the possibility of a parasitic infection. Performed By: #### S EDR #### [facility] [address] [place] [address] Dr. Irene Cedillo CALPROTECTIN, FECALon 2021 Calprotectin, Fecal 36 ug/g Normal 0-120 [facility] Comment on above: Result Comment: Conc entration Interpretation Follow-Up <16 - 50 ug/g Normal None >50 -120 ug/g Borderline Re-evaluate in 4-6 weeks >120 ug/g Abnormal Repeat as clinically indicated Performed By: #### C K, CRP #### [facility] [address] [place] [address] Dr. Irene Cedillo HELICOBACTER PYLORI AG STOOL on 04-12-2022 H. pylori Stool Ag, EIA Negative Normal Negative [facility] Comment on above: Performed By: #### H PYLORI #### [facility] [address] [place] [address] Dr. Irene Cedillo LACTOFERRIN FECAL QUANTon Lactoferrin, Fecal, Quant. <1.00 Normal 0.00-7.24 [facility] Comment on above: Result Comment: Re [...] (IBS). Performed By: #### T SH #### [facility] [address] [place] [address] Dr. Irene Cedillo C. DIFF PCRon 04-08-2022 C. DIFFICILE PCR Negative Normal NEGATIVE [facility] Comment on above: Performed By: #### S EDR #### [facility] [address] [place] [address] Dr. Irene Cedillo GI PANEL (PCR)on 04-08-2022 Adenovirus F 40/41 Not detected Normal NOT DETECTED [facility] Comment on above: Performed By: #### S EDR #### [facility] [address] [place] [address] Dr. Irene Cedillo Astrovirus Not detected Normal NOT DETECTED [facility] Comment on above: Performed By: #### S EDR #### [facility] [address] [place] [address] Dr. Irene Cedillo C. Diff toxin A/B Not detected Normal NOT DETECTED [facility] Comment on above: Performed By: #### S EDR #### [facility] [address] [place] [address] Dr. Irene Cedillo Campylobacter Not detected Normal NOT DETECTED [facility] Comment on above: Performed By: #### S EDR #### [facility] [address] [place] [address] Dr. Irene Cedillo Cryptosporidium Not detected Normal NOT DETECTED [facility] [place] Comment on above: Performed By: #### S EDR #### [facility] [address] [place] [address] Dr. Irene Cedillo Cyclos. Cayetanensis Not detected Normal NOT DETECTED [facility] Comment on above: Performed By: #### S EDR #### [facility] [address] [place] [address] Dr. Irene Cedillo E. Coli O157 Not Applicable Normal Not Applicable [facility] Comment on above: Performed By: #### S EDR #### [facility] [address] [place] [address] Dr. Irene Cedillo E. histolytica Not detected Normal NOT DETECTED [facility] Comment on above: Performed By: #### S EDR #### [facility] [address] [place] [address] Dr. Irene Cedillo EAEC Not detected Normal NOT DETECTED [facility] Comment on above: Performed By: #### S EDR #### [facility] [address] [place] [address] Dr. Irene Cedillo EIEC Not detected Normal NOT DETECTED [facility] Comment on above: Performed By: #### S EDR #### [facility] [address] [place] [address] Dr. Irene Cedillo EPEC Not detected Normal NOT DETECTED [facility] Comment on above: Performed By: #### S EDR #### [facility] [address] [address] [address] Irene Cedillo ETEC Not detected Normal NOT DETECTED [facility] Comment on above: Performed By: #### S EDR #### [facility] [address] [address] [address] Irene Galindo Lamblia Not detected Normal NOT DETECTED [facility] Comment on above: Performed By: #### S EDR #### [facility] [address] [address] [address] Irene VIGIL CONTROLS PASSED Normal [facility] Comment on above: Performed By: #### S EDR #### [facility] [address] [address] [address] Irene ACOSTA MITCHEL HEADER GI PANEL BACTERIA Normal [facility] Comment on above: Performed By: #### S EDR #### [facility] [address] [address] [address] Irene CALDERA ECOLI GI PANEL DIARRHEAGEN IC E.COLI / SHIGELLA Normal [facility] Comment on above: Performed By: #### S EDR #### [facility] [address] [place] [address] Dr. Irene CALDERA INFO SEE BELOW Normal [facility] Comment on above: Result Comment: EAEC - Enteroaggregative E. Coli EPEC- Enteropathogenic E. Coli ETEC- Enterotoxigenic E. Coli lt/st STEC- Shigella-like toxin-producing E. Coli stx1/stx2 EIEC- Shigella/Enteroinvasive E. Coli Performed By: #### S EDR #### [facility] [address] [address] [address] Irene CALDERA PARASITES GI PANEL PARASITES Normal [facility] Comment on above: Performed By: #### S EDR #### [facility] [address] [address] [address] Irene CALDERA VIRUS GI PANEL VIRUSES Normal [facility] [place] Comment on above: Performed By: #### S EDR #### [facility] [address] [place] [address] Dr. Irene Cedillo Norovirus GI/GII Not detected Normal NOT DETECTED [facility] Comment on above: Performed By: #### S EDR #### [facility] [address] [place] [address] Dr. Irene Cedillo P. Shigelloides Not detected Normal NOT DETECTED [facility] [place] Comment on above: Performed By: #### S EDR #### [facility] [address] [place] [address] Dr. Irene Cedillo Rotavirus A Not detected Normal NOT DETECTED [facility] Comment on above: Performed By: #### S EDR #### [facility] [address] [place] [address] Dr. Irene Cedillo Salmonella Not detected Normal NOT DETECTED [facility] Comment on above: Performed By: #### S EDR #### [facility] [address] [place] [address] Dr. Irene Cedillo Sapovirus Not detected Normal NOT DETECTED [facility] Comment on above: Performed By: #### S EDR #### [facility] [address] [place] [address] Dr. Irene Cedillo STEC Not detected Normal NOT DETECTED [facility] Comment on above: Performed By: #### S EDR #### [facility] [address] [place] [address] Dr. Irene Cedillo Vibrio Not detected Normal NOT DETECTED [facility] Comment on above: Performed By: #### S EDR #### [facility] [address] [place] [address] Dr. Irene Cedillo Vibrio Cholera Not detected Normal NOT DETECTED [facility] Comment on above: Performed By: #### S EDR #### [facility] [address] [place] [address] Dr. Irene Cedillo Y. Enterocolitica Not detected Normal NOT DETECTED [facility] Comment on above: Performed By: #### S EDR #### [facility] [address] [address] [address] Irene Cedillo BUNon 03-27-2022 Urea nitrogen [Mass/Vol] 20.0 mg/dL Critically high 7.0-18.0 [facility] Comment on above: Performed By: #### C K, CRP #### [facility] [address] [address] [address] Irene Cedillo CREATININEon 03-27-2022 Creatinine [Mass/Vol] 0.75 mg/dL Normal 0.55-1.02 [facility] Comment on above: Performed By: #### C K, CRP #### [facility] [address] [address] [address] Irene Cedillo EGFR-AF COSTA RICAN >60 Normal >=60 [facility] Comment on above: Performed By: #### C K, CRP #### [facility] [address] [place] [address] Dr. Irene Cedillo EGFR-NON AF [place] R[place] >60 Normal >=60 [facility] Comment on above: Performed By: #### C K, CRP #### [facility] [address] [place] [address] ABD/PELV W CONon [...] and/or use of iterative reconstruction technique. Findings: Pit Hand: No acute abnormalities are seen. Liver/Biliary System: [...] CIELO GARCIA Date: 2022-03-27 21:37 Normal [facility] POINT OF CARE GLUCOSEon 03-10 Glucose [Mass/Vol] 173 mg/dL Critically high 74-106 [facility] Comment on above: Performed By: #### C CPAB #### [facility] [address] [address] [address] Irene Cedillo FSHon 02-25-2022 FSH 46.6 mIU/mL Normal [facility] Comment on above: Result Comment: Adul t Female: Follicular phase 3.5 - 12.5 Ovulation phase 4.7 - 21.5 Luteal phase 1.7 - 7.7 Postmenopausal 25.8 - 134.8 Performed By: #### C K, CRP #### [facility] [address] [address] [address] Irene Cedillo LUTEINIZING HORMONE (LH)on 0 02-25-2022 LH 33.3 mIU/mL Normal [facility] Comment on above: Result Comment: Adul t Female: Follicular phase 2.4 - 12.6 Ovulation phase 14.0 - 95.6 Luteal phase 1.0 - 11.4 Postmenopausal 7.7 - 58.5 Performed By: #### H PYLORI #### [facility] [address] [address] [address] Irene Cedillo TESTOSTERONE, TOTALon 2021 Testosterone [Mass/Vol] 6 ng/dL Normal 3-67 [facility] Comment on above: Performed By: #### H PYLORI #### [facility] [address] [place] [address] Dr. Irene Cedillo THYROID PEROXIDASE ABon 06- Thyroid Peroxidase (TPO) Ab <8 Normal 0-34 [facility] Comment on above: Performed By: #### C K, CRP #### [facility] [address] [place] [address] Dr. Irene Cedillo FREE T3on 02-24-2022 FREE T3 2.47 pg/mlL Normal 2.18-3.98 [facility] Comment on above: Performed By: #### S EDR #### [facility] [address] [place] [address] Dr. Irene Cedillo LYME DISEASE AB EIA W REFLEX on 01-31-2022 Lyme Total Antibody,EIA Negative Normal Negative [facility] Comment on above: Result Comment: Lyme Antibody Negative No laboratory evidence of infection with B. burgdorferi (Lyme disease). Negative results may occur in patients recently infected (greater than or equal to 14 days) with B. burgdorferi. If recent infection is suspected, repeat testing on a new sample collected in 7 to 14 days is recommended. Performed By: #### T SH #### [facility] [address] [place] [address] Dr. Irene Cedillo CPKon 01-30-2022 CK [Catalytic activity/Vol] 76 U/L Normal 26-192 [facility] Comment on above: Performed By: #### C K, CRP #### [facility] [address] [place] [address] Dr. Irene Cedillo CRPon 01-30-2022 CRP 0.4 mg/dL Normal <=1.0 [facility] Comment on above: Performed By: #### C K, CRP #### [facility] [address] [place] [address] Dr. Irene Cedillo SED RATE WESTERGRENon 05-23- 2022 SED RATE 8 mm/hr Normal <=30 [facility] Comment on above: Performed By: #### H PYLORI #### [facility] [address] [address] [address] Irene Cedillo C REACTIVE PROTEINon 021 CRP [Mass/Vol] 9.3 mg/L High 0.0-7.0 [facility] Comment on above: Performed By: #### 6 1405 #### [facility] [address] KNEE LEFT 3 [facility] 09-06-2021 KNEE LEFT 3 S [facility] Department of Radiology [address] [place] [id number] ======== Patient Name: EMILY MACIAS : 1960 Sex: F Age: Race: White Pt. Location: Patient Status: Ordered Date: 09/06/2021 1:35:00 PM Completed Date: 09/06/2021 01:56 PM Requesting Provider: KIARA WILLETT Attending Provider: Report Copy To: Signs & Symptoms: M25.562 Pain in left knee I10 History: Barbara Comments: Evaluate Exam: KNEE LEFT 3 [facility] ======== KNEE LEFT 3 S 09/06/2021 1:56 PM CLINICAL INDICATIONS: M25.562 Pain [...] above Electronically signed: Olga Murray. Transcribed by: [email or web address], User Resident: Electronically Signed by: OLGA MURRAY @ 09/06/2021 03:09 PM Normal [facility] Comment on above: Order Comment: Evalu ate KNEE RIGHT 3 [facility] KNEE RIGHT 3 [facility] Department of Radiology [address] [place] [id number] ======== Patient Name: EMILY MACIAS : 1960 Sex: F Age: Race: White Pt. Location: Patient Status: Ordered Date: 09/06/2021 1:35:00 PM Completed Date: 09/06/2021 01:56 PM Requesting Provider: KIARA WILLETT Attending Provider: Report Copy To: Signs & Symptoms: M25.561 Pain in right knee I10 History: [place] Comments: Evaluate Exam: KNEE RIGHT 3 [facility] ======== KNEE RIGHT 3 [facility] 09/06/2021 1:56 PM CLINICAL INDICATIONS: M25.561 Pain [...] above Electronically signed: Olga Murray. Transcribed by: [email or web address], User Resident: Electronically Signed by: OLGA MURRAY @ 09/06/2021 03:08 PM Normal [facility] Comment on above: Order Comment: Evalu ate SEDIMENTATION RATEon 021 SED RATE 7 mm/hr Normal 0-20 [facility] Comment on above: Performed By: #### 5 [id number] #### [facility] [address] Vital Signs Date Time Vital Sign Value Performing Clinician Facility 02-21-2024 13:19-0400 Body height 165.1 cm Sagar Gordon MD Work Phone: [facility] 02-21-2024 13:19-0400 Body mass index (BMI) [Ratio] 31.78 kg/m2 Sagar Gordon MD Work Phone: [facility] 02-21-2024 13:19-0400 Body temperature 97.11 [degF] Sagar Gordon MD Work Phone: [facility] 02-21-2024 13:19-0400 Body weight 86.64 kg Sagar Gordon MD Work Phone: [facility] 12-26-2023 13:54-0400 Body height 165.1 cm Radha Asif APRN-ANIMAL BEHAVIORIST Work Phone: [facility] 12-26-2023 13:54-0400 Body mass index (BMI) [Ratio] 33.45 kg/m2 Radha Asif APRN-ANIMAL BEHAVIORIST Work Phone: [facility] 12-26-2023 13:54-0400 Body weight 91.17 kg Radha Asif APRN-ANIMAL BEHAVIORIST Work Phone: [facility] 08-13-2023 09:30-0500 Body height 161.93 cm Netta Dixon [employer] Other 08-13-2023 09:30-0500 Body mass index (BMI) [Ratio] 34.46 kg/m2 Netta Montoya Other [employer] Other 08-13-2023 09:30-0500 Body weight 90.36 kg Netta Montoya Other [employer] Other 08-13-2023 09:30-0500 Diastolic blood pressure 70 mm[Hg] Netta Montoya Other [employer] Other 08-13-2023 09:30-0500 Systolic blood pressure 110 mm[Hg] Netta Montoya Other [employer] Other 08-09-2023 14:48-0500 Body height 165.1 cm Sagar Gordon MD Work Phone: [employer] 08-09-2023 14:48-0500 Body mass index (BMI) [Ratio] 33.58 kg/m2 Sagar Gordon MD Work Phone: [employer] [facility] [employer] 08-09-2023 14:48-0500 Body weight 91.54 kg Sagar Gordon MD Work Phone: [employer] [facility] [employer] 04-24-2023 13:30-0400 Body height 161.93 cm Siva Ron Other [employer] Other 04-24-2023 13:30-0400 Body mass index (BMI) [Ratio] 32.52 kg/m2 Siva Ron Other [employer] Other 04-24-2023 13:30-0400 Body weight 85.28 kg Siva Ron Other [employer] Other 04-24-2023 13:30-0400 Diastolic blood pressure 70 mm[Hg] Siva Ron Other [employer] Other 04-24-2023 13:30-0400 Systolic blood pressure 126 mm[Hg] Siva Ron Other [employer] Other 02-22-2023 15:15-0400 Body height 165.1 cm [email or web address] Work Phone: [employer] [facility] [employer] 02-22-2023 15:15-0400 Body mass index (BMI) [Ratio] 31.51 kg/m2 [email or web address] Work Phone: [employer] [facility] [employer] 02-22-2023 15:15-0400 Body temperature 98.01 [degF] [email or web address] Work Phone: [employer] [facility] 02-22-2023 15:15-0400 Body weight 85.9 kg [email or web address] Work Phone: [employer] [facility] [employer] 01-09-2023 09:30-0400 Body height 161.93 cm Netta Montoya Other [employer] Other 01-09-2023 09:30-0400 Body mass index (BMI) [Ratio] 33.04 kg/m2 Netta Montoya Other [employer] Other 01-09-2023 09:30-0400 Body weight 86.64 kg Netta Montoya Other [employer] Other 01-09-2023 09:30-0400 Diastolic blood pressure 60 mm[Hg] Netta Montoya Other [employer] Other 01-09-2023 09:30-0400 SaO2% (BldA) [Mass fraction] 97 % Netta Montoya Other [employer] Other 01-09-2023 09:30-0400 Systolic blood pressure 112 mm[Hg] Netta Montoya Other [employer] Other 01-01-2023 15:45-0400 Body height 161.93 cm Siva Dayormack Other [employer] Other 01-01-2023 15:45-0400 Body mass index (BMI) [Ratio] 34.08 kg/m2 Siva Ron Other [employer] Other 01-01-2023 15:45-0400 Body weight 89.36 kg Siva Ron Other [employer] Other 01-01-2023 15:45-0400 Diastolic blood pressure 71 mm[Hg] Siva Ron Other [employer] Other 01-01-2023 15:45-0400 Systolic blood pressure 116 mm[Hg] Siva Balack Other [employer] Other 11-30-2022 13:58-0400 Body height 165.1 cm Sagar Gordon MD Work Phone: [employer] 11-30-2022 13:58-0400 Body mass index (BMI) [Ratio] 32.12 kg/m2 Sagar Gordon MD Work Phone: [employer] 11-30-2022 13:58-0400 Body weight 87.54 kg Sagar Gordon MD Work Phone: [employer] [facility] [employer] 10-10-2022 14:30-0500 Body height 161.93 cm Netta Montoya Other [employer] Other 10-10-2022 14:30-0500 Body mass index (BMI) [Ratio] 34.08 kg/m2 Netta Montoya Other [employer] Other 10-10-2022 14:30-0500 Body weight 89.36 kg Netta Montoya Other [employer] Other 10-10-2022 14:30-0500 Diastolic blood pressure 70 mm[Hg] Netta Montoya Other [employer] Other 10-10-2022 14:30-0500 Systolic blood pressure 108 mm[Hg] Netta Montoya Other [employer] Other 09-13-2022 16:30-0500 Body height 161.93 cm Netta Montoya Other [employer] Other 09-13-2022 16:30-0500 Body mass index (BMI) [Ratio] 33.21 kg/m2 Netta Montoya Other [employer] Other 09-13-2022 16:30-0500 Body weight 87.09 kg Netta Montoya Other [employer] Other 09-13-2022 16:30-0500 Diastolic blood pressure 62 mm[Hg] Netta Montoya Other [employer] Other 09-13-2022 16:30-0500 SaO2% (BldA) [Mass fraction] 97 % Netta Montoya Other [employer] Other 09-13-2022 16:30-0500 Systolic blood pressure 108 mm[Hg] Netta Montoya Other [employer] Other Encounters Encounter Date Encounter Type Care Provider Facility Start: 05-13-2024 [facility] Start: 04-14-2024 End: 05-11-2024 ambulatory [facility] Start: 02-21-2024 End: 02-21-2024 Office outpatient visit 25 minutes Sagar Gordon MD Work Phone: [facility] Comment on above: Hx of total knee art hroplasty, left (Primary Dx); Pain in prosthetic joint, subsequent encounter Start: 02-21-2024 End: 02-21-2024 Subsequent hospital visit by physician Sagar Gordon MD Work Phone: [facility] Start: 02-21-2024 ambulatory NETTA MONTOYA [facility] Start: 02-11-2024 ambulatory Netta Montoya MD Facility:[facility] Start: 01-18-2024 End: 01-19-2024 ambulatory Netta Montoya MD Facility:[facility] Start: 01-09-2024 End: 02-09-2024 ambulatory [facility] Start: 12-26-2023 End: 01-09-2024 [facility] Start: 12-26-2023 End: 12-26-2023 Office outpatient visit 15 minutes Radha SANTOS Work Phone: [facility] Comment on above: Hx of total knee art hroplasty, left (Primary Dx) Start: 12-26-2023 End: 12-26-2023 Subsequent hospital visit by physician Radha SANTOS Work Phone: [facility] Start: 12-26-2023 ambulatory [facility] Start: 12-20-2023 End: 12-21-2023 ambulatory Janett Balbuena DPM Facility:[facility] Start: 12-20-2023 End: 12-21-2023 ambulatory Netta Montoya MD Facility:[facility] Start: 10-22-2023 End: 10-22-2023 ambulatory Siva Ron Other [employer] Other Start: 10-22-2023 Telephone encounter Siva sheriff [facility] Start: 08-13-2023 End: 08-13-2023 ambulatory Netta Montoya Other [employer] Other Start: 08-13-2023 Office outpatient vi sit 15 minutes Netta BAUMAN [facility] Start: 08-09-2023 End: 08-09-2023 Office outpatient visit 15 minutes Sagar Gordon MD Work Phone: [facility] Comment on above: Post-op pain (Primar y Dx); Pain in prosthetic joint, subsequent encounter Start: 08-09-2023 End: 08-09-2023 Subsequent hospital visit by physician Sagar Gordon MD Work Phone: [facility] Start: 08-09-2023 ambulatory NETTA MONTOYA [facility] Start: 06-19-2023 End: 06-19-2023 ambulatory Cara Leo Facility:[facility] Start: 06-19-2023 End: 06-19-2023 ambulatory MD Netta Montoya Work Phone: [facility] Work Phone: Start: 06-19-2023 End: 06-19-2023 Patient encounter procedure MD Netta Montoya Work Phone: [facility] Work Phone: Start: 05-22-2023 End: 05-22-2023 ambulatory Siva Ron Other [employer] Other Start: 05-22-2023 Telephone encounter Siva sheriff [facility] [facility] Start: 05-15-2023 End: 05-16-2023 ambulatory Netta Montoya MD Facility:[facility] Start: 05-09-2023 End: 05-09-2023 ambulatory Siva Ron Facility:[facility] Start: 05-09-2023 End: 05-09-2023 ambulatory MD Netta Montoya Work Phone: [facility] Work Phone: Start: 05-09-2023 End: 05-09-2023 Patient encounter procedure MD Netta Montoya Work Phone: [facility] Work Phone: Start: 04-26-2023 End: 04-26-2023 ambulatory Netta Montoya Other [employer] Other Start: 04-26-2023 Telephone encounter Netta Montoya [facility] Start: 04-24-2023 End: 04-24-2023 ambulatory Siva Ron Other [employer] Other Start: 04-24-2023 Office outpatient vi sit 25 minutes Siva Ron [facility] Start: 04-23-2023 End: 04-23-2023 ambulatory Netta Montoya Other [employer] Other Start: 04-23-2023 Telephone encounter Netta Montoya [facility] Start: 04-20-2023 End: 04-20-2023 ambulatory Netta Montoya Other [employer] Other Start: 04-20-2023 Telephone encounter Netta Montoya [facility] Start: 03-15-2023 End: 03-15-2023 ambulatory Siva Ron Other [employer] Other Start: 03-15-2023 Telephone encounter Siva Huggins [facility] Start: 02-22-2023 End: 02-22-2023 Postop follow up visit related to original ildefonso Asif APRN-ANIMAL BEHAVIORIST Work Phone: [facility] Comment on above: Hx of total knee art hroplasty, left (Primary Dx) Start: 02-19-2023 End: 02-19-2023 ambulatory Netta Montoya Other [employer] Other Start: 02-19-2023 Telephone encounter Netta Lindsay [facility] Start: 01-18-2023 End: 01-19-[address] Erin RON Facility:[facility] Start: 01-17-2023 End: 01-17-2023 ambulatory Siva Ron Other [employer] Other Start: 01-17-2023 Telephone encounter Siva sheriff [facility] Start: 01-16-2023 End: 01-16-2023 ambulatory Siva Ron Other [employer] Other Start: 01-16-2023 Telephone encounter Siva sheriff [facility] Start: 01-09-2023 Encounter for other preprocedural examination Netta Montoya [facility] Start: 01-09-2023 Office outpatient vi sit 15 minutes Netta Lindsay [facility] Start: 01-09-2023 Telephone encounter Netta Lindsay [facility] Start: 01-09-2023 End: 01-10-[address] Erin RON [facility] [employer] Other Start: 01-08-2023 End: 01-08-[address] Erin RON Facility:[facility] Start: 01-02-2023 End: 01-02-2023 ambulatory Siva Ron Other [employer] Other Start: 01-02-2023 Telephone encounter Siva sheriff [employer] Start: 01-01-2023 End: 01-01-2023 ambulatory Siva Ron Other [employer] Other Start: 01-01-2023 Office outpatient ne w 45 minutes Siva Ron [facility] Start: 11-30-2022 End: 11-30-2022 Office outpatient new 60 minutes Sagar Gordon MD Work Phone: [facility] Comment on above: Pain in prosthetic j oint, sequela (Primary Dx) Start: 11-30-2022 End: 11-30-2022 Subsequent hospital visit by physician Sagar Gordon MD Work Phone: [facility] Start: 11-28-2022 End: 11-29-[address] CARA LEO Facility:[facility] Start: 11-09-2022 End: 11-10-2022 ambulatory BRI BERGER Facility:[facility] Start: 10-18-2022 End: 10-19-[address] CARA LEO Facility:[facility] Start: 10-10-2022 End: 10-10-2022 ambulatory Netta Montoya Other [employer] Other Start: 10-10-2022 Office outpatient vi sit 15 minutes Netta Montoya [facility] Start: 09-22-2022 End: 09-22-2022 ambulatory Netta Montoya Other [employer] Other Start: 09-22-2022 Telephone encounter Netta Montoya [facility] Start: 09-13-2022 End: 09-14-2022 ambulatory JANETT BALBUENA [facility] [employer] Other Start: 09-13-2022 Office outpatient vi sit 15 minutes Netta Montoya [facility] Start: 08-23-2022 End: 08-24-2022 ambulatory TONY DICKINSON Facility:[facility] Start: 08-22-2022 End: 08-23-2022 ambulatory JANETT BALBUENA Facility:[facility] Start: 08-08-2022 End: 08-09-[address] PELON ALEXANDRE Facility:[facility] Start: 08-01-2022 Adult health examination Netta Montoya Other [employer] Other Start: 08-01-2022 Gynecological examination normal Netta Montoya Other [employer] Other Start: 08-01-2022 Pre-procedure evaluation check Netta Montoya Other [employer] Other Start: 07-11-2022 End: 07-12-[address] NETTA MONTOYA Facility:[facility] Start: 07-05-2022 End: 07-06-2022 ambulatory BASILIO LANDEROS Facility:[facility] Start: 04-08-2022 End: 04-09-[address] DOCTOR DESHPANDE Facility:[facility] Start: 04-05-2022 ambulatory SABINA DELGADILLO . Facility:[facility] Start: 03-28-2022 Encounter for other preprocedural examination DR DOCTOR DESHPANDE [facility] Start: 03-27-2022 End: 03-28-[address] [...] Date Procedure Procedure Detail Performing Clinician Start: 02-21-2024 Arthrocentesis aspir &/inj major jt/bursa w/o us Sagar Gordon MD Work Phone: Start: 06-19-2023 X-ray of lumbar spin e, four or more views MD Netta Montoya Work Phone: Start: 05-09-2023 Ultrasound elastogra phy of liver MD Netta Montoya Work Phone: Start: 05-09-2023 Computed tomography of abdomen and pelvis with contrast MD Netta Montoya Work Phone: Start: 05-09-2023 Ultrasonography of liver MD Netta Montoya Work Phone: Start: 11-30-2022 Arthrocentesis aspir &/inj major jt/bursa w/o us Sagar Gordon MD Work Phone: Start: 08-26-2018 Pre-surgery evaluation Netta Montoya Other Plan of Treatment Date Care Activity Detail Author Start: 05-11-2024 Influenza vaccination INFLUENZ A VACCINE (Season Ended) [facility] Start: 02-21-2024 End: 02-20-2025 REQUEST FOR MISC LAB SENDOUT REQUEST FOR MISC LAB SENDOUT Lab Routine Pain in prosthetic joint, subsequent encounter Expected: 02/21/2024, Expires: 02/20/2025 [facility] Comment on above: Expected: 02/21/2024 , Expires: 02/20/2025 Start: 01-30-2024 End: 01-30-2024 Patient encounter procedure 01/30/2024 1:00 PM EDT Office Visit [facility] [address] [facility] [place] [address] Radha Asif APRN-KEIRA [address] [place] [address] [facility] Start: 08-09-2023 End: 09-06-2023 C-reactive protein C REACTIVE PROTEIN Lab Routine Pain in prosthetic joint, subsequent encounter Expected: 08/09/2023, Expires: 09/06/2023 [facility] Comment on above: Expected: 08/09/2023 , Expires: 09/06/2023 Start: 08-09-2023 End: 09-06-2023 SEDIMENTATION RATE, AUTOMATED SEDIMENTATION RATE, AUTOMATED Lab Routine Pain in prosthetic joint, subsequent encounter Expected: 08/09/2023 (Approximate), Expires: 09/06/2023 [facility] Comment on above: Expected: 08/09/2023 (Approximate), Expires: 09/06/2023 Start: 07-06-2023 Hemoglobin A1c measurement HBA1C TEST [facility] Start: 06-06-2023 End: 06-06-2023 Patient encounter procedure 06/06/2023 1:10 PM EDT Office Visit [facility] [address] [facility] [address] Sagar Gordon MD [address] [place] [address] [facility] Start: 05-11-2023 COVID-19 VACCINE ( season) COVID-19 VACCINE ( season) [facility] Start: 05-11-2023 Influenza vaccination A [facility] Start: 05-09-2023 [facility] Start: 01-04-2023 End: 01-04-2023 ambulatory 01/04/2023 Pre-Operative Nurse Assessment Internal Medicine [facility] Pre Admission Start: 05-11-2022 Influenza vaccination INFLUENZA VACC INE (#1) [facility] Start: 12-15-2009 Zoster vaccine hzv l ag for subcutaneous use ZOSTER (SHINGLES) VACCINE (1 of 2) [facility] Start: 12-15-2004 Screening for malign ant neoplasm of colon COLORECTAL CANCER SCREENING DISCUSSION [facility] Start: 1999 Lipid panel LIPID SCREENING [facility] Start: 1999 Screening for malign ant neoplasm of breast MAMMOGRAM SCREENING DISCUSSION [facility] Start: 12-15-1980 Screening for malign ant neoplasm of cervix CERVICAL CANCER SCREENING DISCUSSION [facility] Start: 12-15-1978 Third diphtheria, tetanus and acellular pertussis (DTaP) vaccination TDAP (ADULT) [facility] Start: 12-15-1974 HIV screening HIV SCREENING DISCUSSION [facility] Start: 06-16-1960 COVID-19 VACCINE (#1) COVID-19 VACCI NE (#1) [facility] [facility] Start: 1960 Diabetic foot examination DIABETIC FOOT EXAM [facility] Start: 1960 Glaucoma screening EYE EXAM [facility] Start: 1960 Hepatitis C screening HEPATITI S C VIRUS SCREENING [facility] Start: 1960 Lipid panel LIPIDS [facility] Start: 1959 Tetanus vaccination TETANUS [facility] Start: 1960 Thyroid stimulating hormone measurement TSH [facility] Start: 1960 Urine screening for protein URINE MICROALBUMIN TEST [facility] Radiography for bone length studies XR BONE LENGTH STUDY Imaging Routine Pain in prosthetic joint, sequela 11/30/2022 1:41 PM EDT [facility] XR Knee - left 3 Views XR KNEE L EFT 3 VIEWS Imaging Routine Pain in prosthetic joint, sequela 11/30/2022 1:41 PM EDT [facility] Work Phone: XR Knee - left 3 Views XR KNEE L EFT 3 VIEWS Imaging Routine Hx of total knee arthroplasty, left 02/22/2023 2:50 PM EDT [facility] XR Knee - left 3 Views XR KNEE L EFT 3 VIEWS Imaging Routine Post-op pain 08/09/2023 2:03 PM EST [facility] XR Knee - left 3 Views XR KNEE L EFT 3 VIEWS Imaging Routine Hx of total knee arthroplasty, left 12/26/2023 1:43 PM EDT [facility] XR Knee - left 3 Views XR KNEE L EFT 3 VIEWS Imaging Routine Hx of total knee arthroplasty, left 02/21/2024 1:11 PM EDT [facility] Payers Date Payer Category Payer Self-pay 2021 Private Health Insurance 2021 Medicare MEDICARE AETNA [place] MEDICARE AETNA HMO [id number] 2021-Present [address] [place] [address] [id number] 1959 Unknown [id number] 2.16.840.1.284752.3.579.2.5 1959 Unknown [id number] 2.16.840.1.423205.3.579.2.5 93 1959 Unknown [id number] 2.16.840.1.710081.3.579.2.5 1959 Unknown [id number] 2.16.840.1.363765.3.579.2.5 1959 Unknown [id number] 2.16.840.1.117176.3.579.2.5 93 1959 Unknown [id number] 2.16.840.1.729751.3.579.2.5 93 1959 Unknown [id number] 2.16.840.1.527898.3.579.2.5 93 1959 Unknown [id number] 2.16.840.1.230701.3.579.2.5 93 1959 Unknown [id number] 2.16.840.1.988705.3.579.2.5 93 1959 Unknown [id number] 2.16.840.1.351605.3.579.2.5 93 1959 Unknown [id number] 2.16.840.1.424758.3.579.2.5 93 1959 Unknown [id number] 2.16.840.1.139433.3.579.2.5 93 1959 Unknown [id number] 2.16.840.1.748319.3.579.2.5 93 1959 Unknown [id number] 2.16.840.1.748285.3.579.2.5 93 1959 Unknown [id number] 2.16.840.1.507398.3.579.2.5 93 1959 Unknown [id number] 2.16.840.1.331202.3.579.2.5 93 1959 Unknown [id number] 2.16.840.1.871021.3.579.2.5 1959 Unknown [id number] 2.16.840.1.031262.3.579.2.5 93 1959 Unknown [id number] 2.16.840.1.724733.3.579.2.5 1959 Unknown [id number] 2.16.840.1.755541.3.579.2.1 1959 Unknown [id number] 2.16.840.1.731170.3.579.2.1 1959 Unknown [id number] 2.16.840.1.339735.3.579.2.1 1959 Unknown [id number] 2.16.840.1.392419.3.579.2.1 1959 Unknown [id number] 2.16.840.1.869560.3.579.2.1 96 1959 Unknown [id number] 2.16.840.1.147676.3.579.2.1 96 1959 Unknown [id number] 2.16.840.1.144539.3.579.2.9 83 1959 Unknown [id number] 2.16.840.1.165611.3.579.2.9 83 1959 Unknown [id number] 2.16.840.1.537311.3.579.2.9 83 1959 Unknown [id number] 2.16.840.1.882328.3.579.2.9 83 1959 Unknown [id number] 2.16.840.1.708850.3.579.2.9 83 1959 Unknown [id number] 2.16.840.1.986619.3.579.2.9 83 1959 Unknown [id number] 2.16.840.1.358177.3.579.2.1 286 1959 Unknown [id number] 2.16.840.1.728754.3.579.2.1 286 1959 Unknown [id number] 2.16.840.1.844946.3.579.2.1 286 1959 Unknown [id number] 2.16.840.1.647084.3.579.2.1 286 1960 Medicare [id number] 2.16.840.1.873111.19 Unknown O [id number] Unknown [id number] 2.16.840.1.359921.3.579.2.5 31 Unknown [id number] 2.16.840.1.837126.3.579.2.5 31 Social History Date Type Detail Facility Unknown if ever smoked [employer] [facility] Other Start: 02-22-2023 End: 12-26-2023 Sex Assigned At [facility] Other Start: 11-30-2022 Tobacco smoking status NHIS Never smoked tobacco [facility] Start: 11-30-2022 Tobacco use and exposure Smokeless tobacco non-user [facility] Start: 11-30-2022 End: 02-21-2024 Alcohol intake Ex-drinker (finding) [facility] Start: 1960 Sex Assigned At Not on file A [facility] Start: 02-22-2023 End: 12-26-2023 History of Social function [facility] Start: 01-19-2023 End: 01-29-2023 Exposure to SARS-CoV-2 (event) Not sure [facility] Start: 1960 Sex Assigned At Female [facility] Medical Equipment Procedure Code Equipment Code Equipment Origin al Text Equipment Identifier Dates One Touch Ultra Test Strips Insert - Knee - [id number] Start: 01-29-2023 Patella - Knee - [id number] Start: 01-29-2023 Revision Pressfi t Stem 12mmx 60 [id number] Start: 01-29-2023 Revision Tibial Base Sz 2 [id number] Start: 01-29-2023 Rev Offset Stem 2mm [id number] t: 01-29-2023 Rev Distal Femor al Augment Sz 5 4mm [id number] Start: 01-29-2023 Rev Crs Femoral Sz 5 Left [id number] Start: 01-29-2023 Palacos R 1 X 40 Us - [id number] Start: 01-29-2023 Palacos R & G Smooth ne Cement High-Viscosity With Gentamicin - [id number] Start: 01-29-2023 Goals Date Patient Goal Desired Activity /State Clinical Notes 03-08-2022 to 02-21-2024 Sandra Canales - 02/21/2024 1:10 PM Verenice Gordon MD - 02/21/2024 1:10 PM Margarito Mera - 12/26/2023 2:00 PM Carlo Asif APRN-KEIRA - 12/26/2023 2:00 PM EDT Note Date & Type Note Facility 02-21-2024 History of Presen t illness Narrative Ortho Nurse - Established Patient Intake Room#: 2 Pt is here for left knee pain ( LTKA revision 01/30/24. Pt states that she is still having pain in her knee. Pain is 4-5. Pt did physical therapy, and took the medication but no relief. Pt would like to discuss options Date: 02/21/2024 1:17 PM Patient: Emily Macias MR#: [id number] : 1960 Age: 63 y.o. Referring Physician: Self, Self Insurance: Payor: MEDICARE AETNA HMO OR PPO / Plan: MEDICARE AETNA HMO / Product Type: *No Product type* / Chief Complaint Patient presents with Left Knee - Pain There were no vitals taken for this visit. Pain Recent Labs No results found for: [...] TOTAL Left 01/29/2023 Laterality: Left; Surgeon: Sagar Gordon MD; Location: [facility]NEE [...] daily. 60 capsule 0 Cholecalciferol 250 MCG (26572 UT) capsule capsule Take by mouth daily. [...] DR tablet Take by mouth daily. Pancrelipase, Cwr-Dsti-Abiz, (CREON PO) Take 36,000 Units by mouth. [...] by Nasal route once for 1 dose. Coupland into the nose as directed. Call 911. [...] 60 capsule, Rfl: 0 Cholecalciferol 250 MCG (44432 UT) capsule capsule, Take by mouth daily., [...] by mouth daily., Disp: , Rfl: Pancrelipase, Buy-Oydq-Bppu, (CREON PO), Take 36,000 Units by mouth. [...] by Nasal route once for 1 dose. Coupland into the nose as directed. Call 911. [...] to savella [milnacipran], zanaflex [tizanidine], and vancomycin. Associated Order(s): LARGE JOINT/BURSA INJECTION AND/OR ASPIRATION: L knee; LARGE JOINT/BURSA INJECTION AND/OR ASPIRATION: L knee Post-Procedure Diagnose(s): Pain in prosthetic joint, subsequent encounter; Hx of total knee arthroplasty, left HPI: Patient is here today for evaluation of their operative knee. She is status post left total knee arthroplasty on 01/29/23, conversion from medial partial to total arthroplasty. Previously diagnosed with hamstrings tendonitis and patellar tendonitis, states she did ordered PT. Reports constant, daily pain. ESR/CRP labs from Aug, 2023 WNL. Her pain is a 4/10. Denies fevers or chills. She is here today for a repeat evaluation. PHYSICAL EXAM: The operative lower extremity is soft, nontender, full and supple motion. No pain, no impingement. No instability. She has full return of motion, 0-120 degrees, stable examination to varus and valgus stress with normal balance throughout the arc of motion. Severe, focal pain over the hamstrings and superficial anterior knee. Well healed old incision. No warmth. No redness. No laxity. The contralateral extremity has full motion, normal stability, no tenderness. Both extremities have normal neurovascular status. DIAGNOSTIC STUDIES/INTERPRETATION: Plain film radiographs reviewed. She has a cemented total knee arthroplasty in unchanged position and alignment. IMPRESSION: 1.) Pain, unexplained TJA. 2.) Hamstring tendonitis, left knee - failed PT. 3.) Anterior knee pain, may be nerve related. 4.) Stable status post left total knee arthroplasty on 01/29/23, conversion from medial partial to total arthroplasty. PLAN: I reviewed my findings with Emily. We discussed the diagnosis, radiographs, physical exam findings and treatment options. We discussed the various reasons for prosthetic pain including prosthetic loosening vrs prosthetic cement debonding vrs prosthetic instability vrs prosthetic infection. Clinically or radiographically, she presents with no s/s of loosening, infection, instability or cement debonding. Next step in treatment will be aspiration with subsequent injection. She desires to proceed with this route in treatment despite educated risks of introduction of bacteria and contaminating the knee. ASPIRATION: After explanation of the risks, benefits and alternatives, the lateral aspect of the knee was prepped in a sterile standard fashion. Local Lidocaine was used to anesthetize the region. The area was re-prepped and an aspiration was performed with an 18 gauge needle. 8ml of clear yellow fluid was obtained and will be sent for additional testing including alpha defensins, synovial CRP, cell count with differential and resendiz culture. The region was cleaned and a dressing applied. The patient tolerated the aspiration well. INJECTION: After explanations of the risks, benefits and alternatives and obtaining verbal consent, a double dose injection in the left knee was administered. She tolerated the injection with no complaints. Aftercare instructions were provided with all questions being answered. Moving forward, she will use OTC bracing and also reported she applied for product manager financial services for additional PT. Should she need additional PT script, she will let my office know otherwise will see back in 8 weeks should she still remain symptomatic. All questions were answered to her satisfaction. LARGE JOINT/BURSA INJECTION AND/OR ASPIRATION: L knee Date/Time: 02/21/2024 1:10 PM Performed by: Sagar Gordon MD Authorized by: Sagar Gordon MD Supporting Documentation Indications: pain Procedure Details: Location: knee - L knee Local Anesthetic: lidocaine 1% Needle size: 18 G Medication Verification: I have personally verified and performed the final check of the medication(s) used in this procedure prior to administration. The following items were included during the verification process for medication(s) administered: drug name, strength, volume, expiration, physical integrity and appearance of the medication(s). Patient tolerance: patient tolerated the procedure well with no immediate complications The patient was prepped with Chloraprep. LARGE JOINT/BURSA INJECTION AND/OR ASPIRATION: L knee Date/Time: 02/21/2024 1:10 PM Performed by: Sagar Gordon MD Authorized by: Sagar Gordon MD Supporting Documentation Indications: pain Procedure Details: Location: knee - L knee Local Anesthetic: ethyl chloride (cold spray) [...] 1 %; 1 mL triamcinolone 40 MG/ML The patient was prepped with Betadine. I have reviewed the findings of the clinical patient support tech and agree with their assessment. Ortho Nurse - Established Patient Intake Room#: 2 Pt is here for left knee pain ( LTKA revision 01/30/24. Pt states that she is still having pain in her knee. Pain is 4-5. Pt did physical therapy, and took the medication but no relief. Pt would like to discuss options Date: 02/21/2024 1:17 PM Patient: Emily Macias MR#: [id number] : 1960 Age: 63 y.o. Referring Physician: Self, Self Insurance: Payor: MEDICARE AETNA HMO OR PPO / Plan: MEDICARE AETNA HMO / Product Type: *No Product type* / Chief Complaint Patient presents with Left Knee - Pain There were no vitals taken for this visit. Pain Recent Labs No results found for: [...] TOTAL Left 01/29/2023 Laterality: Left; Surgeon: Sagar Gordon MD; Location: [facility]LAST[facility] KNEE [...] daily. 60 capsule 0 Cholecalciferol 250 MCG (66477 UT) capsule capsule Take by mouth daily. [...] DR tablet Take by mouth daily. Pancrelipase, Igp-Bonf-Bnom, (CREON PO) Take 36,000 Units by mouth. [...] by Nasal route once for 1 dose. Coupland into the nose as directed. Call 911. [...] 60 capsule, Rfl: 0 Cholecalciferol 250 MCG (33146 UT) capsule capsule, Take by mouth daily., [...] by mouth daily., Disp: , Rfl: Pancrelipase, Jni-Lfny-Nhlm, (CREON PO), Take 36,000 Units by mouth. [...] by Nasal route once for 1 dose. Coupland into the nose as directed. Call 911. [...] [tizanidine], and vancomycin. documented in this encounter [facility] 12-26-2023 History of Presen t illness Narrative Ortho Nurse - Established Patient Intake Room#: 5 Date: 12/26/2023 1:55 PM Patient: Emily Macias MR#: [id number] : 1960 Age: 63 y.o. 1yr L TKA Pt stated her knee has been locking on her and has pain 5/10. Pt stated she is almost always a 4-5/10 on the pain scale. Referring Physician: Self, Self Insurance: Payor: MEDICARE AETNA HMO OR PPO [...] TOTAL Left 01/29/2023 Laterality: Left; Surgeon: Sagar Gordon MD; Location: [facility] ARTHROPLASTY KNEE TOTAL Left 08/13/2017 Partial ARTHROSCOPY KNEE Left 03/2012 SHOULDER ARTHROSCOPY Right 2011 FUNDOPLICATION ENDOSCOPIC 2004 HYSTERECTOMY 2004 CHOLECYSTECTOMY LAPAROSCOPIC 1996 OTHER SURGICAL 1991 ruptured ovarian cyst RELEASE CARPAL TUNNEL Right [...] daily. 60 capsule 0 Cholecalciferol 250 MCG (42709 UT) capsule capsule Take by mouth daily. [...] DR tablet Take by mouth daily. Pancrelipase, Agd-Jyhk-Lwmm, (CREON PO) Take 36,000 Units by mouth. [...] by Nasal route once for 1 dose. Coupland into the nose as directed. Call 911. [...] 60 capsule, Rfl: 0 Cholecalciferol 250 MCG (98292 UT) capsule capsule, Take by mouth daily., [...] by mouth daily., Disp: , Rfl: Pancrelipase, Tba-Trwb-Wrvh, (CREON PO), Take 36,000 Units by mouth. [...] by Nasal route once for 1 dose. Coupland into the nose as directed. Call 911. [...] SUBJECTIVE: Emily is an established patient of [facility]. She is here today for followup. She called the office earlier this week and asked for more physical therapy, which was written for her. She saw Dr. Gordon last back in July and was diagnosed [...] She thinks she had that done at [facility]. We will try and obtain those results. [...] symptomatic have her follow up with Dr. Gordon for clinical examination. ([id number]) I have reviewed the findings of the clinical patient support tech and agree with their assessment. Radha Asif APRN-KEIRA Ortho Nurse - Established Patient Intake Room#: 5 Date: 12/26/2023 1:55 PM Patient: Emily Macias MR#: [id number] : 1960 Age: 63 y.o. 1yr L TKA Pt stated her knee has been locking on her and has pain 5/10. Pt stated she is almost always a 4-5/10 on the pain scale. Referring Physician: Self, Self Insurance: Payor: MEDICARE [email or web address] HMO OR PPO / Plan: MEDICARE [email or web address] HMO / Product Type: *No Product type* [...] TOTAL Left 01/29/2023 Laterality: Left; Surgeon: Sagar Gordon MD; Location: [facility] KNEE [...] daily. 60 capsule 0 Cholecalciferol 250 MCG (44405 UT) capsule capsule Take by mouth daily. [...] DR tablet Take by mouth daily. Pancrelipase, Dff-Susw-Suzx, (CREON PO) Take 36,000 Units by mouth. [...] by Nasal route once for 1 dose. Coupland into the nose as directed. Call 911. [...] 60 capsule, Rfl: 0 Cholecalciferol 250 MCG (42595 UT) capsule capsule, Take by mouth daily., [...] by mouth daily., Disp: , Rfl: Pancrelipase, Juk-Eizi-Wlau, (CREON PO), Take 36,000 Units by mouth. [...] by Nasal route once for 1 dose. Coupland into the nose as directed. Call 911. [...] [tizanidine], and vancomycin. documented in this encounter [facility] 08-13-2023 Evaluation note Encounter Date Diagnosis Assessment Notes Aug, Piriformis syndrome, right (ICD-10 - G57.01) Pt declines PT at this time. Gave handouts for exercises and use flexeril qhs. Aug, Trochanteric bursitis, right hip (ICD-10 - M70.61) Pt declines PT. Muscle relaxer and handouts given. [employer] Other 11-30-2023 History of Present illness Narrative* Iza Navaclair - 08/09/2023 2:30 PM EST Ortho Nurse [...] 08/09/2023 2:58 PM Patient: Emily Macias MR#: [id number] : 1960 Age: 62 y.o. Referring Physician: Sagar Gordon MD Insurance: Payor: MEDICARE AETNA HMO OR [...] TOTAL Left 01/29/2023 Laterality: Left; Surgeon: Sagar Gordon MD; Location: [facility] ARTHR[facility]LASTY KNEE [...] DR tablet Take by mouth daily. Pancrelipase, Sss-Apdh-Oxme, (CREON PO) Take 36,000 Units by mouth. [...] taking: Reported on 08/09/2023) Cholecalciferol 250 MCG (58433 UT) capsule capsule Take by mouth daily. [...] by Nasal route once for 1 dose. Coupland into the nose as directed. Call 911. [...] [milnacipran], zanaflex [tizanidine], and vancomycin. * Sagar Gordon MD - 08/09/2023 2:30 PM EST HPI: [...] have reviewed the findings of the clinical patient support tech and agree with their assessment. Ortho Nurse [...] 08/09/2023 2:58 PM Patient: Emily Macias MR#: [id number] : 1960 Age: 62 y.o. Referring Physician: Sagar Gordon MD Insurance: Payor: MEDICARE AETNA HMO OR PPO / Plan: MEDICARE [email or web address] HMO / Product Type: *No Product type* [...] TOTAL Left 01/29/2023 Laterality: Left; Surgeon: Sagar Gordon MD; Location: [facility] ARTHR[facility]LASTY KNEE [...] DR tablet Take by mouth daily. Pancrelipase, Uxr-Hyjz-Hdox, (CREON PO) Take 36,000 Units by mouth. [...] taking: Reported on 08/09/2023) Cholecalciferol 250 MCG (59851 UT) capsule capsule Take by mouth daily. [...] by Nasal route once for 1 dose. Coupland into the nose as directed. Call 911. [...] zanaflex [tizanidine], and vancomycin. [facility] Encounter Date Diagnosis Assessment Notes Treatment Notes Treatment Clinical Notes Apr, Abdominal cramping (ICD-10 - R10.9) Patient reports doing well Apr, Diverticulosis (ICD-10 - K57.90) Apr, Alternating constipation and diarrhea (ICD-10 - R19.8) Apr, Pancreatic atrophy (ICD-10 - K86.89) Apr, Fatty liver (ICD-10 - K76.0) [employer] Other 08-11-2023 Evaluation note* Encounter Date Diagnosis Assessment Notes Treatment Notes Treatment Clinical Notes Apr, Type 2 diabetes mellitus with hyperglycemia, without long-term current use of insulin (ICD-10 - E11.65) [employer] Other 06-15-2023 History of Present illness Narrative* [...] 02/22/2023 3:16 PM Patient: Emily Macias MR#: [id number] : 1960 Age: 62 y.o. Referring Physician: [...] TOTAL Left 01/29/2023 Laterality: Left; Surgeon: Sagar Gordon MD; Location: [facility] KNEE [...] daily. 84 capsule 0 Cholecalciferol 250 MCG (52588 UT) capsule capsule Take by mouth daily. [...] by Nasal route once for 1 dose. Coupland into the nose as directed. Call 911. If no response in 2 minutes use a new nasal spray in other nostril. Repeat until help arrives. 1Each [address] Omep[address] tablet Take by mouth daily. oxyCODONE 5 MG tablet Take 1-2 tabs po q 4-6 hours prn pain. Wean as tolerated. 20 tablet 0 Pancrelipase, Vwj-Tmyb-Fvzk, (CREON PO) Take 36,000 Units by mouth. [...] 84 capsule, Rfl: 0 Cholecalciferol 250 MCG (95697 UT) capsule capsule, Take by mouth daily., [...] by Nasal route once for 1 dose. Coupland into the nose as directed. Call 911. [...] tolerated., Disp: 20 tablet, Rfl: 0 Pancrelipase, Sap-Mfoc-Ryga, (CREON PO), Take 36,000 Units by mouth. [...] zanaflex [tizanidine], and vancomycin. * Radha Asif APRN-KEIRA - 02/22/2023 3:00 PM EDT HPI: Emily [...] Follow up [address] Gordon for clinical and radiological evaluation unless an [...] understanding. All pertinent portions of the clinical patient support tech documentation was reviewed and agree. DANIELLE Gimenez I have reviewed the findings of the clinical patient support tech and agree with their assessment. DANIELLE Gimenez Ortho Nurse - Established Patient Intake Room#: 5 Patient is S/P L knee medial/partial revision to TKA. Patient using walker today and penelope hose are in place. She states the worse pain is at HS while trying to sleep. Sitting pain 4/10 Walking pain is 5/10 Date: 02/22/2023 3:16 PM Patient: Emily Macias MR#: [id number] : 1960 Age: 62 y.o. Referring Physician: [...] TOTAL Left 01/29/2023 Laterality: Left; Surgeon: Sagar Gordon MD; Location: [facility]LAST[facility] KNEE [...] daily. 84 capsule 0 Cholecalciferol 250 MCG (83040 UT) capsule capsule Take by mouth daily. [...] by Nasal route once for 1 dose. Coupland into the nose as directed. Call 911. If no response in 2 minutes use a new nasal spray in other nostril. Repeat until help arrives. 1Each [address] Omepraz[address] tablet Take by mouth daily. oxyCODONE 5 MG tablet Take 1-2 tabs po q 4-6 hours prn pain. Wean as tolerated. 20 tablet 0 Pancrelipase, Qzx-Ptpc-Bwei, (CREON PO) Take 36,000 Units by mouth. [...] 84 capsule, Rfl: 0 Cholecalciferol 250 MCG (27967 UT) capsule capsule, Take by mouth daily., [...] by Nasal route once for 1 dose. Coupland into the nose as directed. Call 911. [...] tolerated., Disp: 20 tablet, Rfl: 0 Pancrelipase, Oxg-Wism-Mvly, (CREON PO), Take 36,000 Units by mouth. [...] zanaflex [tizanidine], and vancomycin. documented in this [facility]05-10-2023 Evaluation note* Encounter Date Diagnosis Assessment Notes Treatment Notes Treatment Clinical Notes January, Alternating constipation and diarrhea (ICD-10 - R19.8) [employer] Other 05-02-2023 Evaluation note* Encounter Date Diagnosis [...] of Farxiga and pt will trial those. [employer] Other 04-24-2023 Evaluation note* Encounter Date Diagnosis [...] scan in October of last year in [place], following a colonoscopy that was done in September Start Mesalamine Dec, Alternating constipation and diarrhea (ICD-10 - R19.8) Start low fod map diet Start probiotics [employer] Other 03-23-2023 History of Present illness Narrative* Paulo Cooper LPN - 11/30/2022 1:30 PM EDT Ortho Nurse [...] 11/30/2022 2:13 PM Patient: Emily Macias MR#: [id number] : 1960 Age: 61 y.o. Referring Physician: Self, Self Insurance: Payor: MEDICARE AETNA HMO OR PPO [...] [x]cane, []bracing Are you followed by a consumer insight analyst? [] [x] Name: Are you followed by pain management? [] [x] Name: Are you followed by any other specialists? [x] [] Name: RA Dr Felipa Santana Outpatient Medications Prior to Visit Medication Sig Dispense Refill Ascorbic Acid 1000 MG tablet Take 1 tablet by mouth daily. B Complex Vitamins (B COMPLEX 1 PO) Take by mouth. Biotin 73073 MCG tablet Take by mouth. Cholecalciferol 250 MCG (44484 UT) capsule capsule Take by mouth. Cobalamin [...] Take by mouth., Disp: , Rfl: Biotin 33648 MCG tablet, Take by mouth., Disp: , Rfl: Cholecalciferol 250 MCG (22220 UT) capsule capsule, Take by mouth., Disp: [...] Does pt have dentures? no * Sagar Gordon MD - 11/30/2022 1:30 PM EDTAssociated Order(s): [...] symptoms. She has history of partial medial [place] uni knee on 08/13/[address] Lazar. [...] left knee. She has a medial partial [place] uni-arthroplasty in place with severe adjacent patellofemoral arthritis. IMPRESSION: 1.) History of left partial medial [place] uni knee on 08/13/[address] Lazar. [...] conversion from uni to total for optimal terminal press operator management. We have discussed in great detail [...] of limb, and ultimately loss of life. terminal clerk expectations, risks and general implant survivorship were also discussed. Despite these risks, the patient would liketo proceed with surgical planning. Today, we will initiate the pre-surgical process including nasalMRSA screening, scheduling an appointment for [facility] and the potential surgical date, andreviewing and [...] Take by mouth., Disp: , Rfl: Biotin 24981 MCG tablet, Take by mouth., Disp: , Rfl: Cholecalciferol 250 MCG (19323 UT) capsule capsule, Take by mouth., Disp: [...] migraines Zanaflex [Tizanidine] Hallucination documented in this [facility]01-31-2023 Evaluation note* Encounter Date Diagnosis Assessment Notes Treatment Notes Treatment Clinical Notes Sep, Fibromyalgia (ICD-10 - M79.7) handicap placard rx handwritten Sep, Type 2 diabetes mellitus with hyperglycemia, without long-term current use of insulin (ICD-10 - E11.65) good readings on home meter with present meds. Sep, Positive ADRI (antinuclear antibody) (ICD-10 - R76.8) Suggested getting on cancellation list at Rheumatology [facility] [employer] Other 01-13-2023 Evaluation note* Encounter Date Diagnosis Assessment Notes Treatment Notes Treatment Clinical Notes Sep, Positive ADRI (antinuclear antibody) (ICD-10 - R76.8) Sep, Fibromyalgia (ICD-10 - M79.7) [employer] Other 01-04-2023 Evaluation note* Encounter Date Diagnosis Assessment Notes Treatment Notes Treatment Clinical Notes Sep, Abdominal cramping (ICD-10 - R10.9) Sep, Type 2 diabetes mellitus with hyperglycemia, without long-term current use of insulin (ICD-10 - E11.65) advised holding or decreasing dose of ozempic to 0.25/week as this could relate to GI side effects [employer] Other 10-31-2022 NotePROCEDURE: XR TIB_FIB RT 2V COMPARISON: 08/24/2021 HISTORY: Pain in lower limb FINDINGS: BONES:No acute fracture or dislocation. Degenerative changes of the knee and ankle. Enthesopathic spurring of the calcaneus SOFT TISSUES:Negative. No visible soft tissue swelling. EFFUSION:None visible. OTHER: Negative. IMPRESSION: Osteoarthritis Electronically authenticated by: WANDA DIANE Date: 2022-07-10 13:36[facility]06-29-2022 NoteCONSULTATION CONSULTATION DATE: 03/08/2022 HISTORY OF [...] of pain. 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 [...] care and would like to move forward. [facility] Signed and Approved by: SABINA DELGADILLO . 03/09/2022 13:38:00[facility] note* Diagnosis Pain in prosthetic joint, sequela- Primary [facility] Information[facility] Other Evaluation note* Diagnosis Hx of total knee arthroplasty, left- Primary [facility]No assessment information [facility] Work Phone: Evaluation note* Diagnosis Post-op pain- Primary Other acute postoperative pain Pain in prosthetic joint, subsequent encounter [facility] Hx of total knee arthroplasty, left- Primary [facility] Hx of total knee arthroplasty, left- Primary Pain in prosthetic joint, subsequent encounter [facility] N[facility]ative - Reported* Type Description Date [...] diabetes divya itus with hyperglycemia, unspecified whether terminal press operator insulin use Medical History Fitzpatrick splints, right, [...] AND ADENOIDECTOMY Hospitalization History mono Hospitalization History [facility] [employer] Other History general Narrative - Reported* Type [...] diabetes divya itus with hyperglycemia, unspecified whether terminal press operator insulin use Medical History Fitzpatrick splints, right, [...] 01/29/2023 Hospitalization History mono Hospitalization History menegitis [employer] Other Reason for referral (narrative)* Consultation (Routine) - Patient to Arrange Specialty Diagnoses / Procedures Referred By Westley finnegan Referred To Contact Physical Therapy Diagnoses Hx of total knee arthroplasty, left Brandee Radha, DIESEL ENGINE FITTER-ANIMAL BEHAVIORIST [address] [place] [address] Referral ID Status Reason Start Date Expiration Date V isits Requested Visits Authorized [id number] Patient to Arrange 02/22/2023 03/18/2024 1 1 Scheduling Instructions . * Diagnostic X-Ray (Routine) - New Request Specialty Diagnoses / Procedures Referred By Westley finnegan Referred To Contact Diagnoses Hx of total knee arthroplasty, left Procedures XR KNEE LEFT 3 VIEWS Radha Asif APRN-CNP [address] [place] [address] Referral ID Status Reason Start Date Expiration Date V isits Requested Visits Authorized [id number] New Request 02/20/2023 03/16/2024 1 1 [facility] Summary Purpose Family History No Family [...] Advance Directives No May 01, 2023 3:43pm Date Activated Date Inactivated Comments 01/29/2023 4:58 PM Reason for Referral Reason 12/28/22 Normal co lonoscopy last summer - continues to have GI issues. Diagnosis 1 Abdominal cramping ( R10.9) [facility] Referring Provider First Name Netta Referring Provider Last Name Lindsay Referring Provider Specialty Family [facility] Referred Organization [facility] Referred Provider Ismale Earyl Referred Address [address] [place], [place],[address] Referred Provider Specialty Gastroentero logy Referral Priority Routine Referral Appointment Date 2022-12-28 General Notes Sonali Cortez 10:30:02 AM >received today, notes locked and referral faxed Sonali Cortez 09/25/2022 10:48:23 AM >pt scheduled Reason 11/21/22 See phone note - this is related to a radio communications mechanician in [place] area testing labs. I do not have a copy of his labs. Diagnosis 1 Positive ADRI (antinu clear antibody) (R76.8) [facility]erral [facility] Referring Provider First Name Netta Referring Provider Last Name Lindsay Referring Provider Specialty Family [facility] Referred Organization [facility] Referred Provider Cara Leo Referred Address [address] [place],[address] Referred Provider Specialty Rheumatology Referral Priority Routine Referral Appointment Date 2022-11-21 General Notes Sonali Cortez 09:22:28 AM >received today, notes attached and ins card attached. will call pt to see who she saw in [place] to get labs. Sonali Cortez 09/25/2022 10:37:57 AM >spoke with patient and was provided Dr. Balbuena phone number [phone] to request labs. told patient I would [...] time Specialty Diagnoses / Procedures Referred By Westley finnegan Referred To Contact Diagnoses Pain in prosthetic joint, sequela Procedures XR BONE LENGTH STUDY Sagar Gordon MD [address] [place] [phone] Referral ID Status Reason Start Date Expiration Date V isits Requested Visits Authorized [id number] New Request 11/24/2022 12/19/2023 1 1 Specialty Diagnoses / Procedures Referred By Westley finnegan Referred To Contact Diagnoses Pain in prosthetic joint, sequela Procedures XR KNEE LEFT 3 VIEWS Sagar Gordon MD [address] [place] [phone] Referral ID Status Reason Start Date Expiration Date V isits Requested Visits Authorized [id number] New Request 11/24/2022 12/19/2023 1 1 Specialty Diagnoses / Procedures Referred By Contac t Referred To Contact Diagnoses Post-op pain Procedures XR KNEE LEFT 3 VIEWS Sagar Gordon MD [address] [place] [address] Referral ID Status Reason Start Date Expiration Date V isits Requested Visits Authorized [id number] New Request 08/06/2023 08/30/2024 1 1 Specialty Diagnoses / Procedures Referred By Contac t Referred To Contact Diagnoses Hx of total knee arthroplasty, left Procedures XR KNEE LEFT 3 VIEWS Radha Asif, DIESEL ENGINE FITTER-ANIMAL BEHAVIORIST [address] [place] [address] Referral ID Status Reason Start Date Expiration Date V isits Requested Visits Authorized [id number] New Request 12/25/2023 01/18/2025 1 1 Specialty Diagnoses / Procedures Referred By Contac t Referred To Contact Diagnoses Hx of total knee arthroplasty, left Procedures XR KNEE LEFT 3 VIEWS Sagar Gordon MD [address] [place] [address] Referral ID Status Reason Start Date Expiration Date V isits Requested Visits Authorized [id number] New Request 02/14/2024 03/10/2025 1 1 Chief Complaint and Reason for Visit Chief Complaint Abdominal Cramping, EPI Chief Complaint Abdominal Cramping, EPI Low back pain Additional Source Comments INFORMATION SOURCE (unrecogn ized section and content) DATE CREATED AUTHOR 09/08/2021 [facility] DATE CREATED AUTHOR AUTHOR'S ORGANIZ ATION 01/23/2023 [facility] DATE CREATED AUTHOR AUTHOR'S ORGANIZ ATION 06/26/2023 [facility] DATE CREATED AUTHOR AUTHOR'S ORGANIZ ATION 01/26/2024 [facility] DATE CREATED AUTHOR AUTHOR'S ORGANIZ ATION 02/29/2024 [facility] DATE CREATED AUTHOR AUTHOR'S ORGANIZ ATION 05/19/2024 [facility] REASON FOR VISIT (unrecogniz ed section and content) Specialty Diagnoses / Procedures Referred By Contac t Referred To Contact Diagnoses Pain in prosthetic joint, sequela Procedures XR BONE LENGTH STUDY Sagar Gordon MD [address] [place] [phone] Referral ID Status Reason Start Date Expiration Date V isits Requested Visits Authorized [id number] New Request 11/24/2022 12/19/2023 1 1 Reason Comments Pain Reason Comments Surgical Follow-up Specialty Diagnoses / Procedures Referred By Contac t Referred To Contact Diagnoses Post-op pain Procedures XR KNEE LEFT 3 VIEWS Sagar Gordon MD [address] [place] [phone] Referral ID Status Reason Start Date Expiration Date V isits Requested Visits Authorized [id number] New Request 08/06/2023 08/30/2024 1 1 Reason Comments Pain Specialty Diagnoses / Procedures Referred By Contac t Referred To Contact Diagnoses Hx of total knee arthroplasty, left Procedures XR KNEE LEFT 3 VIEWS Radha Asif, DIESEL ENGINE FITTER-KEIRA [address] [place] [address] Referral ID Status Reason Start Date Expiration Date V isits Requested Visits Authorized [id number] New Request 12/25/2023 01/18/2025 1 1 Reason Comments Follow-up Specialty Diagnoses / Procedures Referred By Contac t Referred To Contact Diagnoses Hx of total knee arthroplasty, left Procedures XR KNEE LEFT 3 VIEWS Sagar Gordon MD [address] [place] [phone] Referral ID Status Reason Start Date Expiration Date V isits Requested Visits Authorized [id number] New Request 02/14/2024 03/10/2025 1 1 Care Teams (unrecognized sec tion and content) Glassware Selector Relationship Specialty Start Date End Date Netta Montoya MD [address] [place] [address] PCP - General Family Medicine 10/20/22 Glassware Selector Relationship Specialty Start Date End Date Netta Montoya MD [address] [place] [address] PCP - General Family Medicine 10/20/22 Glassware Selector Relationship Specialty Start Date End Date Netta Montoya MD [address] [place] [address] PCP - General Family Medicine 10/20/22 Team Status: Active Member Role Status Dates Netta Montoya MD Primary Care Provider Active Team Status: Inactive Member Role Status Dates Siva Ron MD Attending Provider Active Netta Montoya MD Primary Care Provider Active Team Status: Inactive Member Role Status Dates Netta Montoya MD Primary Care Provider Active Cara Leo MD Attending Provider Active Glassware Selector Relationship Specialty Start Date End Date Netta Montoya MD [address] [place] [address] PCP - General Family Medicine 10/20/22 Glassware Selector Relationship Specialty Start Date End Date Netta Montoya MD [address] [place] [address] PCP - General Family Medicine 10/20/22 Glassware Selector Relationship Specialty Start Date End Date Netta Montoya MD [address] [place] [address] PCP - General Family Medicine 10/20/22 Glassware Selector Relationship Specialty Start Date End Date Netta Montoya MD [address] [place] [address] PCP - General Family Medicine 10/20/22 FOR [...] BE BASED ON THE PRIMARY CLINICAL RECORDS. [facility]. provides no warranty or guarantee of the accuracy or completeness of information in this document.
== END 2024-05-20 10:24 | disposition home or self-care (01) ==
LOC: RAD 10:24
PROVIDERS: PCP Family Medicine; Visit Provider Registered Nurse
DX: M25.551 Pain in right hip (principal)
CPT/HCPCS: 73502

== ENCOUNTER 2024-06-04 13:16 | Outpatient (OUT) | payer MEDICARE, SELFPAY ==
--- NOTE | 2024-06-04 13:20 | MR_ITS ---
The [address] [address] Patient Name: EMILY MACIAS MRN: [id number] date: 1960 Sex: F Assigned Patient Location: MRI Current Patient Location: Accession/Order Number: [id number] Exam Date: 06/04/2024 13:51 Report Date: 06/05/2024 09:17 At the request of: ADELE CAMARGO Procedure: MR lumbar spine wo con MR lumbar spine wo con, 06/04/2024 1:51 PM EDT INDICATION: Intractable Low Back Pain, Right Sided Radiculopathy COMPARISON: There is no appropriate prior study for comparison. TECHNIQUE: Multiplanar, multisequential MRI images of lumbar spine were obtained without contrast. FINDINGS: For dictation purposes, the lowest complete disc space in the lumbar spine considered as L5-S1. There is loss of normal physiologic lumbar lordosis. The vertebral height is preserved. Right renal lesion with T2 prolongation not fully characterized by this study and statistically may suggest simple renal cyst. The conus medullaris is at the level of L1. No signal abnormality within the visualized spinal cord is noted. No neural foraminal narrowing or canal stenoses at the levels of T12-L1, L1-L2 and L2-L3 and L3-L4 is noted. At the level of L4-5, there are disc bulge with superimposed right neuroforaminal annular fissure with no neuroforaminal narrowing and no canal stenosis. The level of L5-S1 is unremarkable. The paraspinal muscles are unremarkable. MR/MR lumbar spine wo con IMPRESSION: Minimal degenerative changes of lumbar spine with no significant neuroforaminal narrowing or canal stenosis. Electronically authenticated by: BRITTNY MATAMOROS Date: 06/05/2024 09:17
== END 2024-06-04 13:17 | disposition home or self-care (01) ==
LOC: MRI 13:16
PROVIDERS: PCP Family Medicine; Visit Provider Registered Nurse
DX: M54.50 Low back pain, unspecified (principal); M54.16 Radiculopathy, lumbar region; M51.36 Other intervertebral disc degeneration, lumbar region
CPT/HCPCS: 72148

== ENCOUNTER 2024-06-24 10:30 | Outpatient (OUT) | payer MEDICARE, SELFPAY ==
--- NOTE | 2024-06-24 | CONS_ITS ---
PROCEDURE DATE: 06/24/2024 PROCEDURE: Bilateral trigger point injections erector spinae muscle. PREOPERATIVE DIAGNOSIS: Myalgia with spasm of the erector spinae muscle bilaterally, most significant at the L5 level. POSTOPERATIVE DIAGNOSIS: Myalgia with spasm of the erector spinae muscle bilaterally, most significant at the L5 level. IMMEDIATE COMPLICATIONS: None. PROCEDURE: After informed consent was obtained from the patient, placed in the flexed forward position. Skin overlying the area was prepped with alcohol. A 25 gauge, 1 ?? needle inserted into the substance of the right erector spinae muscle at the L5 level. Needle tip advanced until there was a mild twitch response, at which point we injected 1 mL of solution. This was repeated in a similar fashion on the contralateral side. Post procedure, needle was removed. Patient reports a dramatic reduction in pain symptoms. DELANEY
--- NOTE | 2024-06-24 | CONS_ITS ---
CONSULTATION DATE: 06/24/2024 TO: Soila Joseph M.D. HISTORY: Patient presented today complaining of pain in her buttock area, occurring bilaterally. She describes the pain as being 4-5/10 pain, sharp in character, increased with activities such as standing, walking, performing transitioning maneuvers. She feels most comfortable in the semi-recumbent position. Denies any change in bowel and bladder habits or new sensorimotor changes in the lower extremities. Her MARITZA on today?s visit was 32%. CURRENT MEDICATION: Includes Robaxin 750 mg three pills at h.s., tramadol 50 mg b.i.d. p.r.n. and acetaminophen 500 mg 1-2 times a day. She has tried a Medrol Dosepak which offered her only marginal relief. She did also report that she tried physical therapy, but did not progress well with the same. EXAMINATION: Notable for patient having no clinical radiculopathy or myelopathy involving the lower extremities. Patient did have dysesthesia and hyperesthesia overlying the distribution of the superior gluteal nerve, occurring bilaterally, with a significant myofascial spasm with myalgia involving the erector spinae muscle, also occurring bilaterally. 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 RECOMMENDATIONS: I recommend she consider proceeding with diagnostic bilateral superior gluteal nerve injection. I have discontinued her Robaxin secondary to ineffectiveness, and will trial her on baclofen 10 mg pills, half to one up to t.i.d. as tolerated, and to proceed with trigger point injection on today?s visit of the erector spinae muscle. I have gone over the details of the both procedures. All her questions were answered. She agrees to proceed with the outlined plan. As part of providing excellent, safe, comprehensive care, the following was completed at our patient's visit: 1. A medication reconciliation and review to ensure accurate knowledge of current/active medications, including asking our patients to inform us about any oobk-zpb-gsikdbl medications or herbal remedies/nutritional supplements/alternative remedies. 2. A review to specifically ensure our patients have had annual screening for: elevated body mass index (BMI, see intake chart for exact total), tobacco use, screening for depression, and screening for unhealthy alcohol use. When screening is concerning, patients are provided with education and the specific recommendation to discuss the concerning health issue and treatment options with their primary care provider. DELANEY
== END 2024-06-24 10:31 | disposition home or self-care (01) ==
LOC: PM 10:31
PROVIDERS: PCP Family Medicine; Visit Provider Anesthesiology Pain Medicine
DX: M54.32 Sciatica, left side (principal); M54.31 Sciatica, right side; M79.18 Myalgia, other site
CPT/HCPCS: 20552; J0665; J3301

== ENCOUNTER 2024-07-15 07:58 | Day surgery (SDC) | payer MEDICARE, SELFPAY ==
[2024-07-15 08:37] LABS: Glucometer 151 mg/dL (74-106)
[2024-07-15 08:40] VITALS: BP 115/69; PULSE 77; TEMP 36.8; O2SAT 96
[2024-07-15 10:01] VITALS: BP 128/68; PULSE 68; O2SAT 97
[2024-07-15] MEDS: BUPIVACAINE HCL 0.25% PF 25 MG/10 ML VIAL INJ (10:03)
[2024-07-15 10:06] VITALS: BP 130/75; PULSE 72; O2SAT 97
--- NOTE | 2024-07-15 10:25 | W.PM.PROCNOT ---
Date of procedure: 07/15/24 Pre-op diagnosis: Bilateral superior gluteal neuritis Post-op diagnosis: same as pre-op Procedure: Bilateral Superior gluteal nerve block, diagnostic Performed under fluoroscopic guidance Immediate complications none Anesthesia: none Solution used for injection: In each syringe, 2 milliliters 0.25% Marcaine 2.5 mL is used for injection for each side Time out process compliant After informed consent obtained patient was brought to the procedure room placed in the prone position skin overlying the area was prepped and draped in a sterile fashion using betadine. 25 gauge spinal needle Insert over each of the target areas identified in fluoroscopy corresponding needles were advanced Under fluoroscopic guidance until the target/targets encountered, no indication of intravascular or Intraneuronal needle tip placement. Solution injected.needles removed post procedurally. patient transferred to recovery room in stable condition to be discharged home after meeting criteria Anesthesia: Local Surgeon: Aaron Rosenthal Condition: stable Disposition: PACU
== END 2024-07-15 10:14 | disposition home or self-care (01) ==
LOC: SURGOUT 07:59
PROVIDERS: PCP Family Medicine; Visit Provider Anesthesiology Pain Medicine
DX: G57.83 Other specified mononeuropathies of bilateral lower limbs (principal); E11.9 Type 2 diabetes mellitus without complications; Z79.84 Long term (current) use of oral hypoglycemic drugs; Z79.85 Long-term (current) use of injectable non-insulin antidiabetic drugs
CPT/HCPCS: 36415; 64450; 82948; J0665

== ENCOUNTER 2024-07-17 16:17 | Outpatient (OUT) | payer MEDICARE, SELFPAY ==
[2024-07-17 17:31] LABS: Percent Iron Saturation 19.7 %
[2024-07-17 17:35] LABS: Alanine Aminotransferase 21 U/L (14-59); Albumin Globulin Ratio 1.2; Albumin Level 3.8 g/dL (3.4-5.0); Alkaline Phosphatase 81 U/L (46-116); Anion Gap 16.1; Aspartate Amino Transferase 18 U/L (15-37); Bilirubin Total 0.4 mg/dL (0.2-1.0); Calcium 9.2 mg/dL (8.5-10.1); Carbon Dioxide 24.1 mmol/L (21.0-32.0); Chloride 105 mmol/L (98-107); Estimated GFR (African America >60 (>=60 mL/min/1.73m^2); Estimated GFR (Non-African Ame >60 (>=60 mL/min/1.73m^2); Globulin 3.3 g/dL; Glucose 150 mg/dL (74-106); Potassium 4.2 mmol/L (3.5-5.1); Sodium 141 mmol/L (136-145); Thyroid Stimulating Hormone 0.749 uIU/mL (0.358-3.740); Total Protein 7.1 g/dL (6.4-8.2)
[2024-07-17 18:00] LABS: Free T4 1.23 ng/dL (0.76-1.46)
[2024-07-19 11:11] LABS: Vitamin B12 887 pg/mL (232-1245)
== END 2024-07-17 16:18 | disposition home or self-care (01) ==
LOC: LAB 16:18
PROVIDERS: PCP Family Medicine
DX: E03.9 Hypothyroidism, unspecified (principal); E83.51 Hypocalcemia; R79.89 Other specified abnormal findings of blood chemistry; R19.8 Other specified symptoms and signs involving the digestive system and abdomen; Z86.39 Personal history of other endocrine, nutritional and metabolic disease; R53.83 Other fatigue; E53.8 Deficiency of other specified B group vitamins
CPT/HCPCS: 36415; 80053; 82306; 82607; 82728; 83540; 83550; 84439; 84443

== ENCOUNTER 2024-07-29 10:44 | Outpatient (OUT) | payer MEDICARE, SELFPAY ==
--- NOTE | 2024-07-29 | CONS_ITS ---
CONSULTATION DATE: 07/29/2024 TO: Soila Joseph M.D. HISTORY: Patient returns today complaining of 7/10 pain in multiple areas, pain in her lower back bilaterally, buttock area, as well as her left groin and medial part of her thigh. She reports the pain in general is increased with activities such as standing, walking, performing transitioning maneuvers. She describes the pain as sharp pain with a burning component, increased with activities such as standing, walking, performing transitioning maneuvers. She feels most comfortable in the semi-recumbent position. Denies any change in bowel and bladder habits or new sensorimotor changes in her lower extremities. She complains of burning sensation in the medial part of her thigh on the left side, as well as burning pain in her hip and buttock area. She continues to use baclofen 10 mg b.i.d. She is not sure if this is helping her. Celebrex 200 b.i.d. and tramadol 50 mg daily p.r.n. Her MARITZA on today?s visit is 40%. She has undergone a diagnostic superior gluteal nerve injection under fluoroscopic guidance, with a bilateral procedure. She reports her pain was improved by at least 80% for several hours, with recurrence of pain back to her baseline. EXAM: Her examination is notable for patient having no clinical signs consistent with radiculopathy or myelopathy involving the lower extremities. Patient had dysesthesia and hyperesthesia overlying the distribution of the superior gluteal nerve bilaterally, as well as the obturator nerve on the left side, myofascial dysfunction with spasm and myalgia of the left adductor muscle resulting in a marked degree of constant contraction, associated with mild to moderate internal rotation of her left hip. 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 RECOMMENDATIONS: I recommend she consider physical therapy with modalities to the left adductor romeo muscle. Proceed with a left obturator nerve injection in the office. I have asked her to change her baclofen to 10 mg pills t.i.d. I have added Zonegran 50 mg at h.s. Will start her with a low dose secondary to patient stating that she is ?sensitive to new medicines?. Also, < > support according to back pain and patient?s response, and lastly, patient will proceed with a radiofrequency ablation of the bilateral superior gluteal nerve bilaterally. Will pre-medicate with 10 mg of Valium. All her questions were answered. She agrees to proceed with the outlined plan. As part of providing excellent, safe, comprehensive care, the following was completed at our patient's visit: 1. A medication reconciliation and review to ensure accurate knowledge of current/active medications, including asking our patients to inform us about any [id number] medications or herbal remedies/nutritional supplements/alternative remedies. 2. A review to specifically ensure our patients have had annual screening for: elevated body mass index (BMI, see intake chart for exact total), tobacco use, screening for depression, and screening for unhealthy alcohol use. When screening is concerning, patients are provided with education and the specific recommendation to discuss the concerning health issue and treatment options with their primary care provider. DELANEY
== END 2024-07-29 10:45 | disposition home or self-care (01) ==
LOC: PM 10:44
PROVIDERS: PCP Family Medicine; Visit Provider Nurse Practitioner
DX: G89.4 Chronic pain syndrome (principal); M79.18 Myalgia, other site; M54.16 Radiculopathy, lumbar region
CPT/HCPCS: G0463

== ENCOUNTER 2024-08-18 14:21 | Outpatient (OUT) | payer MEDICARE, SELFPAY ==
--- NOTE | 2024-08-18 16:06 | PM.CN ---
Consult Note: HPI Data of Consult Patient: known to practice within the last 3 years Consult date: 08/18/24 Requesting Physician: Chandra Edouard MD Primary Care Provider: Soila Joseph MD Consult Narrative Reason for consult: low back, right hip, right leg pain Narrative: 63yof who presents for assessment. worsening pain through low back into right hip, right leg. imaging reviewed, which shows disc bulge and tear at l4-5 to the right. has completed >6 weeks of provider directed home exercises, without benefit. uses celebrex, baclofen, tramadol. cc:: CC: Chandra Edouard MD Review of Systems ROS Status of ROS 10 or more systems reviewed and unremarkable except as noted in history and below [facility] Medical History (Updated 08/18/24 @ 16:09 by Chandra Edouard MD) Rectocele ?N81.6 - Rectocele (ICD-10) Cataract, left eye ?H26.9 - Unspecified cataract (ICD-10) Cataract, right eye ?H26.9 - Unspecified cataract (ICD-10) History of revision of total replacement of left knee joint ?Z96.652 - Presence of left artificial knee joint (ICD-10) Plantar fasciitis of right foot ?M72.2 - Plantar fascial fibromatosis (ICD-10) Tear of left meniscus as current injury ?S83.207A - Unspecified tear of unspecified meniscus, current injury, left knee, initial encounter (ICD-10) Ruptured ovarian cyst ?N83.209 - Unspecified ovarian cyst, unspecified side (ICD-10) Surgical History H/O hemorrhoidectomy ?Z98.890 - Other specified postprocedural states (ICD-10) History of fundoplication ?Z98.890 - Other specified postprocedural states (ICD-10) History of hysterectomy ?Z90.710 - Acquired absence of both cervix and uterus (ICD-10) History of laparoscopic cholecystectomy ?Z90.49 - Acquired absence of other specified parts of digestive tract (ICD-10) History of carpal tunnel surgery of right wrist ?Z98.890 - Other specified postprocedural states (ICD-10) History of tonsillectomy and adenoidectomy ?Z90.89 - Acquired absence of other organs (ICD-10) Meds Home Medications and Allergies Home Medications ?Medication ?Instructions ?Recorded ?Confirmed ?Type LINZESS DAILY 06/24/24 History celecoxib 200 mg capsule (Celebrex) 200 mg PO BID 06/24/24 07/15/24 History eszopiclone 3 mg tablet (Lunesta) 3 mg DAILY 06/24/24 History levothyroxine 100 mcg tablet 100 mcg PO DAILY 06/24/24 07/15/24 History (Euthyrox) magnesium 250 mg tablet 500 mg PO DAILY 06/24/24 07/15/24 History metformin 1,000 mg tablet 1,000 mg PO BID 06/24/24 07/15/24 History multivitamin 1 tab PO DAILY 06/24/24 07/15/24 History omeprazole 20 mg capsule,delayed 20 mg PO DAILY 06/24/24 07/15/24 History release oxybutynin chloride 5 mg tablet 5 mg PO DAILY 06/24/24 07/15/24 History semaglutide 1 mg/dose (4 mg/3 mL) 1 mg subcut QWEEK 06/24/24 07/15/24 History subcutaneous pen injector (Ozempic) tramadol 50 mg tablet 50 mg PO BID 06/24/24 07/15/24 History vitamin B complex 1 cap PO DAILY 06/24/24 07/15/24 History methocarbamol 500 mg tablet 500 mg PO TID #90 tabs 08/18/24 Rx Allergies Allergy/AdvReac Type Severity Reaction Status Date / Time milnacipran (From Savella) Allergy Unknown Unknown Verified 07/15/24 08:37 tizanidine (From Zanaflex) Allergy Unknown Unknown Verified 07/15/24 08:37 Exam Narrative Exam Narrative: Psych-alert and oriented x 3. Attentive and appropriate, constitutionally normal, displays normal mood and affect per situation. There are no obvious deficits in memory, reasoning, or intellect.? Skin-no obvious rashes, bruising, erythema noted to the patient's area of pain.? Extremities- extremities are warm with minimal edema and palpable pulses. Lumbar-tenderness to palpation noted in the lumbar spine and paraspinal musculature. Pain is elicited with flexion, extension, and lateral rotation of the lumbar spine. Range of motion is diminished with these motions. Facet loading maneuvers are positive.? Strength-noted to be unremarkable with the exception of decreased strength rated at 4 out of 5 in right quadriceps femoris. Sensory-no notable sensory deficits in the bilateral lower extremities to touch or pinprick in all dermatomal distributions with the exception to decreased sensation to the right L4, 5 dermatomal distribution Coordination remains intact.? Gait remains non-antalgic. Assessment and Plan Assessment and Plan (1) Lumbar disc displacement without myelopathy: (2) Lumbar radiculopathy: Plan 63yof who presents for assessment. failed conservative measures, as noted. imaging reviewed, as noted. given symptoms and imaging, prudent to attempt right l4-5 tfesi under fluoroscopic guidance. she is in agreement. meds reviewed, will discontinue baclofen and resume robaxin 500mg tid prn. also discussed possibility of geniculars vs scs for post-tka pain of left knee. follow up after procedure.
== END 2024-08-18 14:22 | disposition home or self-care (01) ==
PROVIDERS: PCP Family Medicine; Visit Provider Anesthesiology
DX: M51.26 Other intervertebral disc displacement, lumbar region (principal); M54.16 Radiculopathy, lumbar region
CPT/HCPCS: G0463

== ENCOUNTER 2024-09-08 09:09 | Day surgery (SDC) | payer MEDICARE, SELFPAY ==
--- OUTSIDE RECORDS SUMMARY | 2024-09-08 09:36 | XMS_ITS | CCD ---
Author Organization [facility] Care Team Providers Care Him Manager Name Role Phone Netta Montoya Unavailable Siva [...] FELIPA, DR MARROQUIN Attending Unavailable FELIPA, DR MARROQUNI Admitting Unavailable LINDSAY, DR NETTA Conit Admitting Unavailable LINDSAY, DR NETTA Conti Attending [...] MONTOYA, DR NETTA Conti Primary Care Unavailable ESHA, JANETT Attending Unavailable ESHA, JANETT Admitting Unavailable ESHA, JANETT Consulting Unavailable MONTOYA, DR NETTA Conti Primary Care Unavailable ESHA, JANETT Attending Unavailable ESHA, JANETT Admitting Unavailable Montoya Netta LEVIN Primary Care Provider [phone] MD Siva Ron Attending Provider [phone] MD Netta Montoya Primary Care Provider [phone] MD Cara Leo Attending Provider [phone] NETTA MONTOYA Primary Care Unavailable SAGAR KRAUSE Attending Unavailable SAGAR KRAUSE Referring Unavailable NETTA MONTOYA Primary Care Unavailable SAGAR KRAUSE Attending Unavailable SAGAR KRAUSE Referring Unavailable NETTA MONTOYA Primary Care Unavailable SAGAR KRAUSE Attending Unavailable SAGAR KRAUSE Referring Unavailable SELF, SELF Referring Unavailable RADHA IRVIN Attending Unavailable NETTA MONTOYA Primary Care Unavailable RADHA IRVIN Referring Unavailable MONTOYA, NETTA Primary Care Unavailable RADHA IRVIN Attending Unavailable MONTOYANETTA Primary Care Unavailable SELF, SELF Referring Unavailable SAGAR KRAUSE Attending Unavailable Montoya MD Netta [facility] Unava ilable Esha DPM, Janett Govea Attending Unavailab Gopal LEVIN, Netta [facility] Unava ilable Esha DPM, Janett Govea Attending Unavailab Gopal LEVIN, [facility] Unava ilable Esha DPM, Janett Govea Attending Unavailab Gopal LEVIN, Netta [facility] Unava ilable Esha NOELM, Janett Govea Attending Unavailab Gopal LEVIN, [facility] Unava ilable Silke LEVIN, Chandra Nova Attending Unavailable Esha DPM, Janett Govea Attending Unavailab Gopal LEVIN, [facility] Unava ilable BRANDEE, RADHA Referring Unavailable MONTOYA, NETTA E Primary Care Unavailable BRANDEE, RADHA Referring Unavailable MONTOYA, NETTA E Primary Care Unavailable BRANDEE, RADHA Referring Unavailable MONTOYA, NETTA E Primary Care Unavailable BRANDEE, RADHA Referring Unavailable MONTOYA, NETTA E Primary Care Unavailable LAKSHMIPATHY, NARENDRANATH Referring Unava ilable MONTOYA, NETTA E Primary Care Unavailable Montoya, Netta E Primary Care Unavailable Jb Grady Attending Unavailable Jb Grady Admitting Unavailable Allergies Allergy Classification Reported Allergen(s) Allergy Type Date of Onset Reaction(s) Facility (20 sources) milnacipran; Translations: [Savella] Drug Allergy 09-02-20 13 SEVERE HEADACHES [facility] Repository (19 sources) Morphine; Translations: [MORPHINE] Drug Allergy 11-19-19 21 Unknown [facility] Repository (20 sources) tiZANidine; Translations: [Zanaflex] Drug Allergy 09-02-20 13 Hallucinations [facility] Repository (12 sources) milnacipran; Translations: [MILNACIPRAN] Drug Allergy 02-10-20 17 Headache [facility] (12 sources) tiZANidine; Translations: [TIZANIDINE] Drug Allergy 02-10-20 17 Hallucination [facility] (2 sources) Morphine Drug Allergy [facility] Repository (16 sources) Vancomycin Drug Allergy 01-30-20 23 Hives [facility] (7 sources) Allergies Reconciled Propensity to adverse reactions Unknown [facility] Other (7 sources) [place] *PSYCHOTHERAPEU TIC AND NEUROLOGICAL AGENTS Propensity to adverse reactions Unknown [place] [facility] Other Medications Current Medications Medication Drug Class(es) Dates [...] day with plain water Orally Active amylase 369756 unt / lipase 65124 unt / protease 755651 unt delayed release oral capsule (9 sources) Start: 01-25-2023 take 2 capsules by mouth three times daily at mealtime, then take 1 capsule by mouth four times daily Creon [id number] UNIT 2 capsules three times a day [...] needed. Active take 1 tablet by william twice daily at mealtime as needed Baclofen 20 MG 1 tablet Administer witho ut regards to meals as needed Orally Twice a day Active biotin 10 mg oral tablet (2 sources) Biotin 05872 MCG tablet Take by mouth. 0 Active [...] 03/12/2023 Active take 1 capsule by mo [facility] every twenty-four hours CeleBREX 200 MG 1 capsule with food Orally Once a day Active cephalexin 500 mg oral capsule (5 sources) Cephalosporin Antibacterial take 1 capsule by mouth every six hours Cephalexin 500 MG 1 capsule Orally Four times a day Active cholecalciferol 0.25 mg oral capsule (10 sources) Vitamin D Cholecalciferol 250 MCG (87783 UT) capsule capsule Take by mouth daily. Active Vitamin D-3 25 M CG (1000 UT) 1/2 DAILY IN SUMMER Orally Once a day Active Cholecalciferol 250 MCG (35130 UT) capsule capsule Take by mouth. 0 [...] 2 times daily. 0 Active estrogens, conjugated (fdc) 0.625 mg/ml vaginal cream (5 sources) Estrogen [...] Active Start: 01-18-2023 take 4 tablets by mo ut every twenty-four hours Mesalamine 1.2 GM 4 tablets Orally Once a day for 30 days January, Active Start: 01-01-2023 take 2 tablets by mouth once d aily Mesalamine 1.[address] tablet Take 2 tablets by mouth daily. 01/01/2023 Active take 2 tablets by mo ut every twenty-four hours Mesalamine 1.2 GM 2 [...] by Nasal route once for 1 dose. Sieper into the nose as directed. Call 911. If no response in 2 minutes use a new nasal spray in other nostril. Repeat until help arrives. 1 Each 01/29/2023 Active [place] 3 (5 sources) [place] 3 Active omeprazole 20 mg delayed release [...] tablet (4 sources) Opioid Agonist Start: 02-07-20 take 1-2 [...] 2 MG/1.5ML as directed Subcutaneous Active Pancrelipase, Uze-Ttct-Ntzr, (CREON PO) (7 sources) take 1 tablet by mouth once daily Pancrelipase, Koa-Ingm-Curn, (CREON PO) Take 36,000 Units by mouth. 2 tablet by mouth with each meal, 1 tablet by mouth with 1 snack daily Active take 1 tablet by mouth once alannah y Pancrelipase, Jit-Npcf-Prpt, (CREON PO) Take 36,000 Units by mouth. 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; Translations: [Contracture, right ankle] Chronic Other aftercare (1 source) Other skilled nursing (current) drug therapy; Translations: [OTH 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 CURRENT DRUG THERAPY] Onset: 12-02-2022 Episodic Other [...] Translations: [Diarrhea, unspecified] Episodic Other gastrointestinal disorders (8 sources) Other specified symptoms and signs involving the digestive system and abdomen; Translations: [OTH SPEC SX SIGNS DIGESTV SYS ABD] Onset: 01-18-2023 Episodic Other gastrointestinal disorders (1 source) Abdominal distension (gaseous); Translations: [Abdominal distension (gaseous)] Onset: 08-29-2024 Episodic Other infections; including parasitic (7 sources) [...] chronic pancreatitis] Chronic Pancreatic disorders (not diabetes) (1 source) Other specified diseases of pancreas Episodic Prolapse of female genital organs (20 [...] [Nontoxic single thyroid nodule] Onset: 08-07-2018 Chronic Past or Other Problems Problem Classification Problem [...] Name Value Interpretation Reference Range Facility XR KUBon 08-29-2024 XR KUB [facility] [place] [address] XRay Report Signed Patient: Emily Macias MR#: [id number] : 1960 Acct:[id number] Age/Sex: 63 / F ADM Date: 08/29/24 Loc: Room: Type: [facility] Attending Dr: Jb Grady APRN Copies to: Jb Grady APRN Ordering Provider: Jb Grady APRN Date of Service: 08/29/24 XR/XR KUB: R14.0 - Abdominal distension (gaseous) KUB: CLINICAL INFORMATION: Abdominal distention likely constipation and diarrhea for 2 weeks. COMPARISON: CT abdomen and pelvis 05/09/2023 FINDINGS: Moderate stool burden. No bowel obstruction. No free air. Osseous structures demonstrate degenerative change. XR/XR KUB IMPRESSION: MODERATE STOOL BURDEN SUGGESTIVE OF UNDERLYING CONSTIPATION. NO ACUTE PROCESS. Impression dictated by: Kp Carrera Jr..O.08/29/2024 3:27 PM Dictation Location: RADIO-PC-22 Transcribed By: [facility] 08/29/24 1527 Dictated By: Bar Sims Jr, DO 08/29/24 1526 Signed By: 08/29/24 1527 Normal [facility] No Panel Informationon 02-26 Radiology Study observation (narrative) [facility] LARGE JOINT/BURSA INJECTION AND/OR ASPIRATION: L kneeon 02-21-2024 Sagar Krause MD 02/27/2024 1:38 PM LARGE JOINT/BURSA INJECTION AND/OR ASPIRATION: L knee Date/Time: 02/21/2024 1:10 PM Performed by: Sagar Krause MD Authorized by: Sagar Krause MD Supporting Documentation Indications: pain Procedure Details: [...] complications The patient was prepped with Chloraprep. [facility] Sagar Krause MD 02/27/2024 1:38 PM LARGE JOINT/BURSA INJECTION AND/OR ASPIRATION: L knee Date/Time: 02/21/2024 1:10 PM Performed by: Sagar Krause MD Authorized by: Sagar Krause MD Supporting Documentation Indications: pain Procedure Details: [...] MG/ML The patient was prepped with Betadine. [facility] No Panel Informationon 02-20 [facility] Podiatry Office/Clinic Noteo n 01-18-2024 [...] remember. Patient relates that they have tried [id number] pain relievers, padding, and modification of shoe [...] out of 10 sites as measured with [place] French monofilament bilateral, otherwise intact Gross motor [...] deep perone (more content not included)... Normal [facility] US Guidance/Localizationon 0 01-18-2024 US Guidance/Localization EXAM: Limited Diagnostic Musculoskeletal Ultrasound [with Ultrasound-Guided Injection of left superficial peroneal nerve at the anterior lateral ankle] CLINICAL HISTORY: Patient has concern for multiple peripheral nerve entrapments. History of left first metatarsophalangeal joint fusion with 3D implant TECHNIQUE: Musculoskeletal Ultrasound with REVENTIVE e Next Gen unit with [12 MHz][L10-22] [...] Electronically Signed in Other Vendor System) Normal [facility] Podiatry Office/Clinic Noteo n 12-20-2023 Podiatry [...] out of 10 sites as measured with [place] French monofilament bilateral, otherwise intact Gross motor [...] and barby (more content not included)... Normal [facility] US Guidance/Localizationon 0 12-20-2023 US Guidance/Localization EXAM: Limited Diagnostic Musculoskeletal Ultrasound [with Ultrasound-Guided Injection of left saphenous nerve] CLINICAL HISTORY: Patient has concern for multiple peripheral nerve entrapments. History of left first metatarsophalangeal joint fusion with 3D implant TECHNIQUE: Musculoskeletal Ultrasound with REVENTIVE e Next Gen unit with [12 MHz][L10-22] [...] Electronically Signed in Other Vendor System) Normal [facility] XR Ankle 3 Views Bilateralon 12-20-2023 [...] Electronically Signed in Other Vendor System) Normal [facility] XR Foot 3 Views Bilateralon 12-20-2023 [...] Electronically Signed in Other Vendor System) Normal [facility] Glucose Glucometer (BldC) [M ass/Vol]Ordered By: Siva Ron on 05-09-2023 Glucose [Mass/Vol] 136 mg/dL [facility] Comment on above: Random Glucose Refer ence Range is dependent on time and content of last meal. Glucose of more than 200 mg/dL in a nonstressed, ambulatory subject supports the diagnosis of Diabetes Mellitus. No Panel InformationOrdered By: Siva Ariadne on 05-09-2023 Bedside Glucose Comment Glu2: cleaned meter [facility] PANCREATIC ELASTASE FECALon 01-22-2023 Pancreatic Elastase, Fecal 128 ug Elast./g Critically low >200 [facility] Comment on above: Result Comment: Jihan re Pancreatic Insufficiency: <100 Moderate Pancreatic Insufficiency: 100 - 200 Normal: >200 Performed By: #### H PYLORI #### [facility] [address] [place] [address] Dr. Irene Cedillo LACTOFERRIN FECAL QUANTon Lactoferrin, Fecal, Quant. <1.00 Normal 0.00-7.24 [facility] Comment on above: Result Comment: Re sults [...] (IBS). Performed By: #### S EDR #### [facility] [address] [place] [address] Dr. Irene Cedillo CALPROTECTIN, FECALon 2022 Calprotectin, Fecal 139 ug/g Critically high 0-120 [facility] Comment on above: Result Comment: Conc entration Interpretation Follow-Up <16 - 50 ug/g Normal None >50 -120 ug/g Borderline Re-evaluate in 4-6 weeks >120 ug/g Abnormal Repeat as clinically indicated Performed By: #### H PYLORI #### [facility] [address] [place] [address] Dr. Irene Cedillo PANCREATIC ELASTASE FECALon 01-15-2023 Pancreatic Elastase, Fecal 161 ug Elast./g Critically low >200 [facility] Comment on above: Result Comment: Jihan re Pancreatic Insufficiency: <100 Moderate Pancreatic Insufficiency: 100 - 200 Normal: >200 Performed By: #### A NTI-NICOLLE #### [facility] [address] [place] [address] Dr. Irene Cedillo TSHon 01-09-2023 TSH 1.630 uIU/mL Normal 0.358-3.740 [facility] Comment on above: Performed By: #### T SH #### [facility] [address] [place] [address] Dr. Irene Cedillo ANTIHISTIONE ANTIBODIESon Anti-histone Abs 0.5 Units Normal 0.0-0.9 [facility] Comment on above: Result Comment: Nega tive <1.0 Weak Positive 1.0 - 1.5 Moderate Positive 1.6 - 2.5 Strong Positive >2.5 Performed By: #### C K, CRP #### [facility] [address] [place] [address] Dr. Irene Cedillo LARGE JOINT/BURSA INJECTION AND/OR [...] complications The patient was prepped with Betadine. [facility] Radiology Study observation (narrative) [facility] US PELVIS AND TRANSVAGon US PELVIS AND TRANSVAG EXAM: US PELVIS AND TRANSVAG HISTORY: Left lower quadrant pain COMPARISON: None. TECHNIQUE: Pelvic sonography was performed utilizing grayscale and color Doppler technique. FINDINGS/ IMPRESSION: 1. Hysterectomy. 2. Ovaries not visualized. 3. No adnexal mass. 4. No significant free fluid. Electronically authenticated by: BRI BERGER Date: 2022-11-10 15:54 Normal [facility] LUPUS ANTICOAGULANT PROFILEo n 10-27-2022 Anticardiolipin Ab, IgG <10 Normal [facility] Comment on above: Result Comment: Refe rence Range: Negative: <15 Indeterminate: 15 - 20 Low to medium positive: >20 - 80 High positive: >80 Performed By: #### L UPUSAC #### [facility] [address] [address] [address] Irene Cedillo Anticardiolipin Ab, IgM <10 Normal [facility] Comment on above: Result Comment: Refe rence Range: Negative: <13 Indeterminate: 13 - 20 Low to medium positive: >20 - 80 High positive: >80 Performed By: #### L UPUSAC #### [facility] [address] [address] [address] Irene Cedillo APTT 1:1 CONFERENCE DIRECTOR [facility] Comment on above: Result Comment: Test ing Not Indicated This test was developed and its performance characteristics determined by [facility]. It has not been cleared or approved by the [place] Food and Drug Administration. Performed By: #### L UPUSAC #### [facility] [address] [address] [address] Irene Cedillo APTT 1:1 Saline NIY Normal [facility] Comment on above: Result Comment: Test ing Not Indicated This test was developed and its performance characteristics determined by [facility]. It has not been cleared or approved by the [place] Food and Drug Administration. Performed By: #### L UPUSAC #### [facility] [address] [place] [address] Dr. Irene Cedillo aPTT Coag (Bld) [Time] 23.0 [facility] Comment on above: Result Comment: This test has not been validated for monitoring unfractionated heparin therapy. aPTT-based therapeutic ranges for unfractionated heparin therapy have not been established. Consider ordering Heparin anti-Xa (unfractionated). Reference Range: 18 years and older: 22.9 - 30.2 Performed By: #### L UPUSAC #### [facility] [address] [place] [address] Dr. Irene Cedillo Beta-2 Glycoprotein I, IgA <10 Normal [facility] Comment on above: Result Comment: The reference interval reflects a 3SD or 99th percentile interval. Reference Range: Negative: <26 Performed By: #### L UPUSAC #### [facility] [address] [address] [address] Irene Cedillo Beta-2 Glycoprotein I, IgG <10 Normal [facility] Comment on above: Result Comment: The reference interval reflects a 3SD or 99th percentile interval. Reference Range: Negative: <21 Performed By: #### L UPUSAC #### [facility] [address] [place] [address] Dr. Irene Cedillo Beta-2 Glycoprotein I, IgM <10 Normal [facility] Comment on above: Result Comment: The reference interval reflects a 3SD or 99th percentile interval. Reference Range: Negative: <33 Performed By: #### L UPUSAC #### [facility] [address] [place] [address] Dr. Irene HERNANDEZVT Confirm Seconds [facility] Comment on above: Result Comment: Test ing Not Indicated Performed By: #### L UPUSAC #### [facility] [address] [place] [address] Dr. Irene HERNANDEZVT Ratio NIY Normal [facility] Comment on above: Result Comment: Test ing Not Indicated Performed By: #### L UPUSAC #### [facility] [address] [place] [address] Dr. Irene HERNANDEZVT Screen Seconds 33.2 sec [facility] Comment on above: Result Comment: Refe rence Range: <= 47.0 Performed By: #### L UPUSAC #### [facility] [address] [place] [address] Dr. Irene Cedillo Hexagonal Phospholipid Neutral 0 sec Normal [facility] Comment on above: Result Comment: This value is NEGATIVE. This is a qualitative assay and is therefore reported as positive for lupus anticoagulant or negative. The quantitative value is provided as an aid in diagnosis. Reference Range: 0 - 11 Performed By: #### L UPUSAC #### [facility] [address] [place] [address] Dr. Irene Cedillo INR Coag (PPP) [Relative time] 0.9 {INR} Normal [facility] Comment on above: Result Comment: Refe rence Range: >1 month: 0.9 - 1.2 Performed By: #### L UPUSAC #### [facility] [address] [address] [address] Irene Cedillo LAC Interpretation Comment Normal [facility] Comment on above: Result Comment: A arelis pus anticoagulant is not detected. All antiphospholipid antibodies evaluated are normal. As antibody titers may fluctuate with time, repeat testing may be indicated. Please contact [employer] if further clarification is needed. Performed By: #### L UPUSAC #### [facility] [address] [place] [address] Dr. Irene Cedillo Platelet Neutralization 0.0 sec Normal [facility] Comment on above: Result Comment: Refe rence Range: 0.0 - 3.0 This test was developed and its performance characteristics determined by [employer]. It has not been cleared or approved by the Food and Drug Administration. Performed By: #### L UPUSAC #### [facility] [address] [place] [address] Dr. Irene Cedillo PT Coag (PPP) [Time] 10.0 s Normal [facility] Comment on above: Result Comment: Refe rence Range: 18 years and older: 9.1 - 12.0 Performed By: #### L UPUSAC #### [facility] [address] [place] [address] Dr. Irene Cedillo Thrombin Time 15.5 sec Normal [facility] Comment on above: Result Comment: Refe rence Range: 0.0 - 23.0 Performed By: #### L UPUSAC #### [facility] [address] [place] [address] Dr. Irene Cedillo ADRI by IFAon 10-23-2022 Antinuclear Antibodies, IFA Positive Abnormal [facility] Comment on above: Result Comment: Nega tive <1:80 Borderline 1:80 Positive >1:80 Performed By: #### T SH #### [facility] [address] [address] [address] Irene Cedillo Centriole Pattern Normal [facility] Comment on above: Performed By: #### T SH #### [facility] [address] [address] [address] Irene Cedillo Centromere Pattern Normal [facility] Comment on above: Performed By: #### T SH #### [facility] [address] [address] [address] Irene Cedillo Homogeneous Pattern 1:320 Critically high [facility] Comment on above: Result Comment: ICAP nomenclature: AC-1 Performed By: #### T SH #### [facility] [address] [address] [address] rIene Cedillo Midbody Pattern Normal [facility] Comment on above: Performed By: #### T SH #### [facility] [address] [address] [address] Irene Cedillo Note: Comment Normal [facility] Comment on above: Result Comment: For more [...] titers Nucleosomes, Histones Drug-induced SLE Speckled Sm, QUALITY CONTROL REPRESENTATIVE, SCL-70, SLE,MCTD,PSS (diffuse form), SS-A/SS-B Sjogrens Nucleolar SCL-70, PM-1/SCL High titers Scleroderma, PM/DM Centromere Centromere PSS (limited form) w/Crest syndrome variable Nuclear Dot [id number] Primary Biliary Cirrhosis Nuclear GP210, Primary Biliary Cirrhosis Membrane margie A,B,C Performed By: #### T SH #### [facility] [address] [place], [place] [address] Dr. Irene Cedillo Nuclear Dot Pattern Normal [facility] Comment on above: Performed By: #### T SH #### [facility] [address] [address] [address] Irene Cedillo Nuclear Membrane Pattern Normal [facility] Comment on above: Performed By: #### T SH #### [facility] [address] [place] [address] Dr. Irene Cedillo Nucleolar Pattern Normal [facility] Comment on above: Performed By: #### T SH #### [facility] [address] [place] [address] Dr. Irene Cedillo PCNA Pattern Normal [facility] Comment on above: Performed By: #### T SH #### [facility] [address] [place] [address] Dr. Irene Cedillo Speckled Pattern Normal [facility] Comment on above: Performed By: #### T SH #### [facility] [address] [place] [address] Dr. Irene Cedillo Spindle Apparatus Pattern Normal [facility] Comment on above: Performed By: #### T SH #### [facility] [address] [place] [address] Dr. Irene Cedillo ALDOLASEon 10-19-2022 Aldolase 3.6 U/L Normal 3.3-10.3 [facility] Comment on above: Performed By: #### T SH #### [facility] [address] [place] [address] Dr. Irene Cedillo ANTI-CENTROMERE B ABon 10-19 Anti-Centromere B Antibodies <0.2 Normal 0.0-0.9 [facility] Comment on above: Performed By: #### S EDR #### [facility] [address] [place] [address] Dr. Irene Cedillo ANTI-DNA DS ABon 10-19-2022 Anti-DNA (DS) Ab Qn 1 IU/mL Normal 0-[address] [facility] [facility] Comment on above: Result Comment: Nega tive <5 Equivocal 5 - 9 Positive >9 Performed By: #### C CPAB #### [facility] [address] [place] [address] Dr. Irene Cedillo ANTI-NICOLLE-1on 10-19-2022 Anti-Nicolle-1 <0.2 Normal 0.0-0.9 [facility] Comment on above: Performed By: #### A NTI-NICOLLE #### [facility] [address] [place] [address] Dr. Irene Cedillo ANTICHROMATIN ANTIBODIESon 0 10-19-2022 Antichromatin Antibodies 0.5 AI Normal 0.0-0.9 [facility] Comment on above: Performed By: #### C K, CRP #### [facility] [address] [place] [address] Dr. Irene Cedillo ANTIEXTRACTABLE NUCLEAR ANTI BODIESon 10-19-2022 QUALITY CONTROL REPRESENTATIVE Antibodies <0.2 Normal 0.0-0.9 [facility] Comment on above: Performed By: #### H PYLORI #### [facility] [address] [place] [address] Dr. Irene Cedillo Performed By: #### C CPAB #### [facility] [address] [place] [address] Dr. Irene Cedillo Murray Antibodies <0.2 Normal 0.0-0.9 [facility] Comment on above: Performed By: #### H PYLORI #### [facility] [address] [place] [address] Dr. Irene Cedillo Performed By: #### C CPAB #### [facility] [address] [place] [address] Dr. Irene Cedillo ANTISCLERODERMA ABon 023 Antiscleroderma-70 Antibodies <0.2 Normal 0.0-0.9 [facility] Comment on above: Performed By: #### A NSCLER #### [facility] [address] [place] [address] Dr. Irene Cedillo C3 and C4 COMPLEMENTon 10-19 Complement C3, Serum 171 mg/dL Critically high 82-167 [facility] Comment on above: Performed By: #### H PYLORI #### [facility] [address] [place] [address] Dr. Irene Cedillo Complement C4, Serum 41 mg/dL Critically high 12-38 [facility] Comment on above: Performed By: #### H PYLORI #### [facility] [address] [address] [address] Irene Cedillo COMPLEMENT TOTAL (CH50)on Complement, Total (CH50) >60 Normal >41 [facility] Comment on above: Result Comment: Age Male [...] Performed By: #### C K, CRP #### [facility] [address] [address] [address] Irene Cedillo CYCLIC CITRULLINATED PEPTIDE AB (CCP)on 10-19-2022 CCP Antibodies IgG/IgA 3 units Normal 0-19 [facility] Comment on above: Result Comment: Nega tive <20 Weak positive 20 - 39 Moderate positive 40 - 59 Strong positive >59 Performed By: #### C CPAB #### [facility] [address] [address] [address] Irene Cedillo MITICHONDRIAL (M2) ANTIBODYo n 10-19-2022 Mitochondrial (M2) Antibody <20.0 Normal 0.0-20.0 [facility] Comment on above: Result Comment: Nega tive 0.0 - 20.0 Equivocal 20.1 - 24.9 Positive >24.9 . Mitochondrial (M2) Antibodies are found in 90-96% of patients with primary biliary cirrhosis. Performed By: #### C K, CRP #### [facility] [id number] Irene Cedillo RHEUMATOID FACTORon 10-19-19 23 RA Latex Turbid. <10.0 Normal <14.0 [facility] Comment on above: Performed By: #### C CPAB #### [facility] [address] [place] [address] Dr. Irene Cedillo RPR QUANTon 10-19-2022 Rapid Plasma Reagin, Quant Non-Reactive Normal NonRea<1:1 [facility] Comment on above: Result Comment: Plea se Note: This test does not meet current guidelines for screening and diagnosis of syphilis. This test is intended for following treatment response in patients being treated for syphilis infection. To screen for syphilis infection, a reflex cascade that includes both RPR and a treponema-specific assay should be utilized, such as Treponema pallidum (Syphilis) Screening Bland (266112) or Rapid Plasma Reagin (RPR) Test With Reflex to Quantitative RPR and Confirmatory Treponema pallidum Antibodies (248907). Performed By: #### T SH #### [facility] [address] [place] [address] Dr. Irene Cedillo SJOGRENS ANTIBODIES (Anti SS A/B)on 10-19-2022 Sjogren's Anti-SS-A <0.2 Normal 0.0-0.[address] [facility] Comment on above: Performed By: #### S EDR #### [facility] [address] [place] [address] Dr. Irene Cedillo Sjogren's Anti-SS-B <0.2 Normal 0.0-0.[address] [facility] Comment on above: Performed By: #### S EDR #### [facility] [address] [place] [address] Dr. Irene Cedillo SMOOTH MUSCLE ANTIBODYon Actin (Smooth Muscle) Antibody 5 Units Normal 0-19 [facility] Comment on above: Result Comment: Nega tive 0 - 19 Weak positive 20 - 30 Moderate to strong positive >30 . Actin Antibodies are found in 52-85% of patients with autoimmune hepatitis or chronic active hepatitis and in 22% of patients with primary biliary cirrhosis. Performed By: #### C K, CRP #### [facility] [address] [place] [address] Dr. Irene Cedillo THYROGLOBULIN ABon Thyroglobulin Antibody <1.0 Normal 0.0-0.9 [facility] Comment on above: Result Comment: Thyr oglobulin Antibody measured by [employer] Performed By: #### C CPAB #### [facility] [address] [place] [address] Dr. Irene Cedillo THYROID PEROXIDASE ABon 02- Thyroid Peroxidase (TPO) Ab 11 IU/mL Normal 0-34 [facility] Comment on above: Performed By: #### T SH #### [facility] [address] [place] [address] Dr. Irene Cedillo CBC AUTO DIFFon 10-18-2022 BASO # 0.1 103/ul Normal 0.0-0.1 [facility] Comment on above: Performed By: #### C K, CRP #### [facility] [address] [place] [address] Dr. Irene Cedillo Basophils/100 WBC (Bld) 0.7 % Normal 0.2-2.0 [facility] Comment on above: Performed By: #### C K, CRP #### [facility] [address] [place] [address] Dr. Irene Cedillo EO # 0.2 103/ul Normal 0.0-0.7 [facility] Comment on above: Performed By: #### C K, CRP #### [facility] [address] [place] [address] Dr. Irene Cedillo Eosinophils/100 WBC (Bld) 2.8 % Normal 0.9-7.0 [facility] Comment on above: Performed By: #### C K, CRP #### [facility] [address] [place] [address] Dr. Irene Cedillo Erythrocyte distribution width (RBC) [Ratio] 13.4 % Normal 11.0-15.0 [facility] Comment on above: Performed By: #### C K, CRP #### [facility] [address] [place] [address] Dr. Irene Cedillo Hematocrit (Bld) [Volume fraction] 43.6 % Normal 36.0-48.0 [facility] Comment on above: Performed By: #### C K, CRP #### [facility] [address] [place] [address] Dr. Irene Cedillo Hemoglobin (Bld) [Mass/Vol] 14.1 g/dL Normal 12.0-16.0 [facility] Comment on above: Performed By: #### C K, CRP #### [facility] [address] [place] [address] Dr. Ierne Cedillo IG # 0.01 10e3/ul Normal 0.00-0.03 [facility] Comment on above: Performed By: #### C K, CRP #### [facility] [address] [place] [address] Dr. Irene Cedillo IG % 0.1 % Normal 0.0-0.5 [facility] Comment on above: Performed By: #### C K, CRP #### [facility] [address] [place] [address] Dr. Irene Cedillo LYMPH # 2.5 103/ul Normal 1.2-3.8 [facility] Comment on above: Performed By: #### C K, CRP #### [facility] [address] [place] [address] Dr. Irene Cedillo Lymphocytes/100 WBC (Bld) 35.9 % Normal 20.5-60.0 [facility] Comment on above: Performed By: #### C K, CRP #### [facility] [address] [place] [address] Dr. Irene Cedillo MANUAL DIFF REQ NO Normal [facility] Comment on above: Performed By: #### C K, CRP #### [facility] [address] [place] [address] Dr. Irene Cedillo MCH (RBC) [Entitic mass] 29.6 pg Normal 26.7-34.0 [facility] Comment on above: Performed By: #### C K, CRP #### [facility] [address] [place] [address] Dr. Irene Cedillo MCHC (RBC) [Mass/Vol] 32.3 g/dL Normal 29.9-35.2 [facility] Comment on above: Performed By: #### C K, CRP #### [facility] [address] [place] [address] Dr. Irene Cedillo MCV (RBC) [Entitic vol] 91.6 fL Normal 81.0-99.0 [facility] Comment on above: Performed By: #### C K, CRP #### [facility] [address] [place] [address] Dr. Irene Cedillo MONO # 0.4 103/ul Normal 0.3-0.8 [facility] Comment on above: Performed By: #### C K, CRP #### [facility] [address] [place] [address] Dr. Irene Cedillo Monocytes/100 WBC (Bld) 5.2 % Normal 1.7-12.0 [facility] Comment on above: Performed By: #### C K, CRP #### [facility] [address] [place] [address] Dr. Irene Cedillo NEUT # 3.8 103/ul Normal 1.4-6.5 [facility] Comment on above: Performed By: #### C K, CRP #### [facility] [address] [place] [address] Dr. Irene Cedillo Neutrophils/100 WBC (Bld) 55.3 % Normal 43.0-75.0 [facility] Comment on above: Performed By: #### C K, CRP #### [facility] [address] [place] [address] Dr. Irene Cedillo Platelet mean volume (Bld) [Entitic vol] 9.7 fL Normal 9.5-13.5 [facility] Comment on above: Performed By: #### C K, CRP #### [facility] [address] [place] [address] Dr. Irene Cedillo PLT 271 103/ul Normal 150-450 [facility] Comment on above: Performed By: #### C K, CRP #### [facility] [address] [place] [address] Dr. Irene Cedillo RBC 4.76 106/ul Normal 4.20-5.40 [facility] Comment on above: Performed By: #### C K, CRP #### [facility] [address] [place] [address] Dr. Irene Cedillo WBC 6.9 103/ul Normal 4.0-11.0 [facility] Comment on above: Performed By: #### C K, CRP #### [facility] [address] [place] [address] Dr. Irene Cedillo CPKon 10-18-2022 CK [Catalytic activity/Vol] 57 U/L Normal 26-192 [facility] Comment on above: Performed By: #### T SH #### [facility] [address] [place] [address] Dr. Irene Cedillo CRPon 10-18-2022 CRP 0.8 mg/dL Normal <=1.0 [facility] Comment on above: Performed By: #### T SH #### [facility] [address] [place] [address] Dr. Irene Cedillo FREE T4on 10-18-2022 Free T4 [Mass/Vol] 1.07 ng/dL Normal 0.76-1.46 [facility] Comment on above: Performed By: #### C K, CRP #### [facility] [address] [place] [address] Dr. Irene Cedillo PROF 14(COMP METB)on 023 Albumin [Mass/Vol] 3.9 g/dL Normal 3.4-5.0 [facility] Comment on above: Performed By: #### T SH #### [facility] [address] [place] [address] Dr. Irene Cedillo Albumin/Globulin [Mass ratio] 1.1 {ratio} Normal [facility] Comment on above: Performed By: #### T SH #### [facility] [address] [place] [address] Dr. Irene Cedillo ALP [Catalytic activity/Vol] 90 U/L Normal 46-116 [facility] Comment on above: Performed By: #### T SH #### [facility] [address] [place] [address] Dr. Irene Cedillo ALT [Catalytic activity/Vol] 32 U/L Normal 14-59 [facility] Comment on above: Performed By: #### T SH #### [facility] [address] [place] [address] Dr. Irene Cedillo Anion gap [Moles/Vol] 13.8 mmol/L Normal [facility] Comment on above: Performed By: #### T SH #### [facility] [address] [address] [address] Irene Cedillo AST [Catalytic activity/Vol] 26 U/L Normal 15-37 [facility] Comment on above: Performed By: #### T SH #### [facility] [address] [address] [address] Irene Cedillo Bilirubin [Mass/Vol] 0.2 mg/dL Normal 0.2-1.0 [facility] Comment on above: Performed By: #### T SH #### [facility] [address] [address] [address] Irene Cedillo Calcium [Mass/Vol] 9.1 mg/dL Normal 8.5-10.1 [facility] Comment on above: Performed By: #### T SH #### [facility] [address] [address] [address] Irene Cedillo Chloride [Moles/Vol] 102 mmol/L Normal 98-107 [facility] Comment on above: Performed By: #### T SH #### [facility] [address] [address] [address] Irene Cedillo CO2 [Moles/Vol] 25.4 mmol/L Normal 21.0-32.0 [facility] Comment on above: Performed By: #### T SH #### [facility] [address] [address] [address] Irene Cedillo Creatinine [Mass/Vol] 0.64 mg/dL Normal 0.55-1.02 [facility] Comment on above: Performed By: #### T SH #### [facility] [address] [address] [address] Irene Cedillo EGFR-AF INDIAN >60 Normal >=60 [facility] Comment on above: Performed By: #### T SH #### [facility] [address] [address] [address] Irene Cedillo EGFR-NON AF INDIAN >60 Normal >=60 [facility] Comment on above: Performed By: #### T SH #### [facility] [address] [address] [address] Irene Cedillo Globulin (S) [Mass/Vol] 3.6 g/dL Normal [facility] Comment on above: Performed By: #### T SH #### [facility] [address] [place] [address] Dr. Irene Cedillo Glucose [Mass/Vol] 132 mg/dL Critically high 74-106 [facility] Comment on above: Performed By: #### T SH #### [facility] [address] [place] [address] Dr. Irene Cedillo Potassium [Moles/Vol] 4.2 mmol/L Normal 3.5-5.1 [facility] Comment on above: Performed By: #### T SH #### [facility] [address] [place] [address] Dr. Irene Cedillo Protein [Mass/Vol] 7.5 g/dL Normal 6.4-8.2 [facility] Comment on above: Performed By: #### T SH #### [facility] [address] [place] [address] Dr. Irene Cedillo Sodium [Moles/Vol] 137 mmol/L Normal 136-145 [facility] Comment on above: Performed By: #### T SH #### [facility] [address] [place] [address] Dr. Irene Cedillo Urea nitrogen [Mass/Vol] 19.0 mg/dL Critically high 7.0-18.0 [facility] Comment on above: Performed By: #### T SH #### [facility] [address] [place] [address] Dr. Irene Cedillo Urea nitrogen/Creatinine [Mass ratio] 29.7 mg/mg Normal [facility] Comment on above: Performed By: #### T SH #### [facility] [address] [place] [address] Dr. Irene Cedillo PROTIMEon 10-18-2022 INR Coag (PPP) [Relative time] {INR} Normal [facility] Comment on above: Performed By: #### C K, CRP #### [facility] [address] [place] [address] Dr. Irene Cedillo INR GUIDELINES SEE BELOW Normal [facility] Comment on above: Result Comment: JUAN RAMON RED INR: 2.0 - 3.0 CONDITIONS NOT LISTED BELOW 2.5 - 3.5 FOR PROSTHETIC HEART VALVE REPLACEMENT 2.5 - 3.5 RECURRENT THROMBOSIS Performed By: #### C K, CRP #### [facility] [address] [place] [address] Dr. Irene Cedillo PT Coag (PPP) [Time] 9.8 s Normal 9.0-11.6 [facility] Comment on above: Performed By: #### C K, CRP #### [facility] [address] [place] [address] Dr. Irene Cedillo PTTon 10-18-2022 aPTT Coag (Bld) [Time] 26.0 s Normal 22.3-36.2 [facility] Comment on above: Performed By: #### C K, CRP #### [facility] [address] [place] [address] Dr. Irene Cedillo [facility]ATE 42 mm/hr Critically high <=30 [facility] Comment on above: Performed By: #### S EDR #### [facility] [address] [place] [address] Dr. Irene Cedillo TSHon 10-18-2022 TSH 0.718 uIU/mL Normal 0.358-3.740 [facility] Comment on above: Performed By: #### T SH #### [facility] [address] [place] [address] Dr. Irene Cedillo UA RANDOM W/MICROSCOPICon BACTERIA NONE SEEN Normal NONE SEEN [facility] Comment on above: Performed By: #### C CPAB #### [facility] [address] [place] [address] Dr. Irene Cedillo Bilirubin Ql (U) Negative Normal NEGATIVE [facility] Comment on above: Performed By: #### C CPAB #### [facility] [address] [place] [address] Dr. Irene Cedillo CAST NONE SEEN Normal NONE SEEN [facility] Comment on above: Performed By: #### C CPAB #### [facility] [address] [place] [address] Dr. Irene Cedillo Clarity (U) CLEAR Normal CLEAR [facility] Comment on above: Performed By: #### C CPAB #### [facility] [address] [place] [address] Dr. Irene Cedillo Color (U) LT. YELLOW Normal YELLOW [facility] Comment on above: Performed By: #### C CPAB #### [facility] [address] [place] [address] Dr. Irene Cedillo Crystals LM Nom (Urine sed) NONE SEEN Normal NONE SEEN [facility] Comment on above: Performed By: #### C CPAB #### [facility] [address] [place] [address] Dr. Irene Cedillo Epithelial cells LM Ql (Urine sed) NONE SEEN Normal NONE SEEN /RARE [facility] Comment on above: Performed By: #### C CPAB #### [facility] [address] [place] [address] Dr. Irene Cedillo Glucose Ql (U) Negative Normal NEGATIVE [facility] Comment on above: Performed By: #### C CPAB #### [facility] [address] [place] [address] Dr. Irene Cedillo Hemoglobin Ql (U) Negative Normal NEGATIVE [facility] Comment on above: Performed By: #### C CPAB #### [facility] [address] [place] [address] Dr. Irene Cedillo Ketones Ql (U) Negative Normal NEGATIVE [facility] Comment on above: Performed By: #### C CPAB #### [facility] [address] [place] [address] Dr. Irene Cedillo LEUKOCYTES Negative Normal NEGATIVE [facility] Comment on above: Performed By: #### C CPAB #### [facility] [address] [place] [address] Dr. Irene Cedillo MUCOUS NONE SEEN Normal NONE SEEN [facility] Comment on above: Performed By: #### C CPAB #### [facility] [address] [place] [address] Dr. Irene Cedillo Nitrite Ql (U) Negative Normal NEGATIVE [facility] Comment on above: Performed By: #### C CPAB #### [facility] [address] [place] [address] Dr. Irene Cedillo pH (U) 5.5 [pH] Normal 5-9 [facility] Comment on above: Performed By: #### C CPAB #### [facility] [address] [place] [address] Dr. Irene Cedillo RBC 0-2 Normal 0-2 [facility] Comment on above: Performed By: #### C CPAB #### [facility] [address] [place] [address] Dr. Irene Cedillo SPEC GRAVITY 1.020 Normal 1.005-<=1.025 [facility] Comment on above: Performed By: #### C CPAB #### [facility] [address] [place] [address] Dr. Irene Cedillo UA PROTEIN Negative Normal NEGATIVE/ TRACE [facility] Comment on above: Performed By: #### C CPAB #### [facility] [address] [place] [address] Dr. Irene Cedillo Urobilinogen Qn (U) 0.2 {Junior'U}/dL Normal 0.2 - 1. 0 [facility] Comment on above: Performed By: #### C CPAB #### [facility] [address] [place] [address] Dr. Irene Cedillo WBC NONE SEEN Normal NONE SEEN [facility] Comment on above: Performed By: #### C CPAB #### [facility] [address] [place] [address] Dr. Irene Cedillo HLA B 27on 09-21-2022 HLA-B27 Negative Normal [facility] Comment on above: Result Comment: HLA- B*27 Negative B27 allele interpretation for all loci based on IMGT/HLA database version 3.44 This test was developed and its performance characteristics determined by [facility]. It has not been cleared or approved by the Food and Drug Administration. [facility] CLIA ID Number [id number] . This test was performed using PCR (Polymerase Chain Reaction)/SSOP (Sequence Specific Oligonucleotide Probes) technique. SBT (Sequence Based Typing) and/or SSP (Sequence Specific Primers) may be used as supplemental methods when necessary. Please contact [facility] Customer Service at if you have any questions. . Director of [facility] Dr Kris Salinas, PhD Performed By: #### C CPAB #### [facility] [address] [place] [address] Dr. Irene Cedillo ADRI by IFAon 09-15-2022 Antinuclear Antibodies, IFA Positive Abnormal [facility] Comment on above: Result Comment: Nega tive <1:80 Borderline 1:80 Positive >1:80 Performed By: #### S EDR #### [facility] [address] [place] [address] Dr. Irene Cedillo Centriole Pattern Normal [facility] Comment on above: Performed By: #### S EDR #### [facility] [address] [place] [address] Dr. Irene Cedillo Centromere Pattern Normal [facility] Comment on above: Performed By: #### S EDR #### [facility] [address] [place] [address] Dr. Irene Cedillo Homogeneous Pattern 1:160 Critically high [facility] Comment on above: Result Comment: ICAP nomenclature: AC-1 Performed By: #### S EDR #### [facility] [address] [place] [address] Dr. Irene Cedillo Midbody Pattern Normal [facility] Comment on above: Performed By: #### S EDR #### [facility] [address] [place] [address] Dr. Irene Cedillo Note: Comment Normal [facility] Comment on above: Result Comment: For more [...] titers Nucleosomes, Histones Drug-induced SLE Speckled Sm, QUALITY CONTROL REPRESENTATIVE, SCL-70, SLE,MCTD,PSS (diffuse form), SS-A/SS-B Sjogrens Nucleolar SCL-70, PM-1/SCL High titers Scleroderma, PM/DM Centromere Centromere PSS (limited form) w/Crest syndrome variable Nuclear Dot [id number] Primary Biliary Cirrhosis Nuclear GP210, Primary Biliary Cirrhosis Membrane margie A,B,C Performed By: #### S EDR #### [facility] [address] [address] [address] Irene Cedillo Nuclear Dot Pattern Normal [facility] Comment on above: Performed By: #### S EDR #### [facility] [address] [address] [address] Irene Cedillo Nuclear Membrane Pattern Normal [facility] Comment on above: Performed By: #### S EDR #### [facility] [address] [address] [address] Irene Cedillo Nucleolar Pattern Normal [facility] Comment on above: Performed By: #### S EDR #### [facility] [address] [address] [address] Irene Cedillo PCNA Pattern Normal [facility] Comment on above: Performed By: #### S EDR #### [facility] [address] [address] [address] Irene Cedillo Speckled Pattern Normal [facility] Comment on above: Performed By: #### S EDR #### [facility] [address] [address] [address] Irene Cedillo Spindle Apparatus Pattern Normal [facility] Comment on above: Performed By: #### S EDR #### [facility] [address] [address] [address] Irene Cedillo CYCLIC CITRULLINATED PEPTIDE AB (CCP)on 09-15-2022 CCP Antibodies IgG/IgA 0 units Normal 0-19 [facility] Comment on above: Result Comment: Nega tive <20 Weak positive 20 - 39 Moderate positive 40 - 59 Strong positive >59 Performed By: #### C CPAB #### [facility] [address] [address] [address] Irene Cedillo RHEUMATOID FACTORon 09-15-19 23 RA Latex Turbid. <10.0 Normal <14.0 [facility] Comment on above: Performed By: #### C K, CRP #### [facility] [address] [place] [address] Dr. Irene Cedillo CBC AUTO DIFFon 09-13-2022 BASO # 0.0 103/ul Normal 0.0-0.1 [facility] Comment on above: Performed By: #### H PYLORI #### [facility] [address] [place] [address] Dr. Irene Cedillo Basophils/100 WBC (Bld) 0.4 % Normal 0.2-2.0 [facility] Comment on above: Performed By: #### H PYLORI #### [facility] [address] [place] [address] Dr. Irene Cedillo EO # 0.3 103/ul Normal 0.0-0.7 [facility] Comment on above: Performed By: #### H PYLORI #### [facility] [address] [place] [address] Dr. Irene Cedillo Eosinophils/100 WBC (Bld) 4.4 % Normal 0.9-7.0 [facility] Comment on above: Performed By: #### H PYLORI #### [facility] [address] [place] [address] Dr. Irene Cedillo Erythrocyte distribution width (RBC) [Ratio] 13.2 % Normal 11.0-15.0 [facility] Comment on above: Performed By: #### H PYLORI #### [facility] [address] [place] [address] Dr. Irene Cedillo Hematocrit (Bld) [Volume fraction] 41.5 % Normal 36.0-48.0 [facility] Comment on above: Performed By: #### H PYLORI #### [facility] [address] [place] [address] Dr. Irene Cedillo Hemoglobin (Bld) [Mass/Vol] 14.0 g/dL Normal 12.0-16.0 [facility] Comment on above: Performed By: #### H PYLORI #### [facility] [address] [place] [address] Dr. Irene Cedillo IG # 0.02 10e3/ul Normal 0.00-0.03 [facility] Comment on above: Performed By: #### H PYLORI #### [facility] [address] [place] [address] Dr. Irene Cedillo IG % 0.3 % Normal 0.0-0.5 [facility] Comment on above: Performed By: #### H PYLORI #### [facility] [address] [place] [address] Dr. Irene Cedillo LYMPH # 2.5 103/ul Normal 1.2-3.8 [facility] Comment on above: Performed By: #### H PYLORI #### [facility] [address] [place] [address] Dr. Irene Cedillo Lymphocytes/100 WBC (Bld) 34.4 % Normal 20.5-60.0 [facility] Comment on above: Performed By: #### H PYLORI #### [facility] [address] [place] [address] Dr. Irene Cedillo MANUAL DIFF REQ NO Normal [facility] Comment on above: Performed By: #### H PYLORI #### [facility] [address] [place] [address] Dr. Irene Cedillo MCH (RBC) [Entitic mass] 30.0 pg Normal 26.7-34.0 [facility] Comment on above: Performed By: #### H PYLORI #### [facility] [address] [place] [address] Dr. Irene Cedillo MCHC (RBC) [Mass/Vol] 33.7 g/dL Normal 29.9-35.2 [facility] Comment on above: Performed By: #### H PYLORI #### [facility] [address] [place] [address] Dr. Irene Cedillo MCV (RBC) [Entitic vol] 88.9 fL Normal 81.0-99.0 [facility] Comment on above: Performed By: #### H PYLORI #### [facility] [address] [place] [address] Dr. Irene Cedillo MONO # 0.4 103/ul Normal 0.3-0.8 [facility] Comment on above: Performed By: #### H PYLORI #### [facility] [address] [address] [address] Irene Cedillo Monocytes/100 WBC (Bld) 5.6 % Normal 1.7-12.0 [facility] Comment on above: Performed By: #### H PYLORI #### [facility] [address] [address] [address] Irene Cedillo NEUT # 4.0 103/ul Normal 1.4-6.5 [facility] Comment on above: Performed By: #### H PYLORI #### [facility] [address] [address] [address] Irene Cedillo Neutrophils/100 WBC (Bld) 54.9 % Normal 43.0-75.0 [facility] Comment on above: Performed By: #### H PYLORI #### [facility] [address] [place] [address] Dr. Irene Cedillo Platelet mean volume (Bld) [Entitic vol] 9.6 fL Normal 9.5-13.5 [facility] Comment on above: Performed By: #### H PYLORI #### [facility] [address] [address] [address] Irene Cedillo PLT 314 103/ul Normal 150-450 [facility] Comment on above: Performed By: #### H PYLORI #### [facility] [address] [place] [address] Dr. Irene Cedillo RBC 4.67 106/ul Normal 4.20-5.40 [facility] Comment on above: Performed By: #### H PYLORI #### [facility] [address] [place] [address] Dr. Irene Cedillo WBC 7.3 103/ul Normal 4.0-11.0 [facility] Comment on above: Performed By: #### H PYLORI #### [facility] [address] [place] [address] Dr. Irene Cedillo CRPon 09-13-2022 CRP 0.3 mg/dL Normal <=1.0 [facility] Comment on above: Performed By: #### C K, CRP #### [facility] [address] [address] [address] Irene Cedillo RENAL FUNCTION PANELon 09-13 Albumin [Mass/Vol] 3.7 g/dL Normal 3.4-5.0 [facility] Comment on above: Performed By: #### R ENAL #### [facility] [address] [address] [address] Irene Cedillo Calcium [Mass/Vol] 9.3 mg/dL Normal 8.5-10.1 [facility] Comment on above: Performed By: #### R ENAL #### [facility] [address] [address] [address] Irene Cedillo Chloride [Moles/Vol] 105 mmol/L Normal 98-107 [facility] Comment on above: Performed By: #### R ENAL #### [facility] [address] [place] [address] Dr. Irene Cedillo CO2 [Moles/Vol] 30.5 mmol/L Normal 21.0-32.0 [facility] Comment on above: Performed By: #### R ENAL #### [facility] [address] [place] [address] Dr. Irene Cedillo Creatinine [Mass/Vol] 0.64 mg/dL Normal 0.55-1.02 [facility] Comment on above: Performed By: #### R ENAL #### [facility] [address] [place] [address] Dr. Irene Cedillo EGFR-AF INDIAN >60 Normal >=60 [facility] Comment on above: Performed By: #### R ENAL #### [facility] [address] [place] [address] Dr. Irene Cedillo EGFR-NON AF INDIAN >60 Normal >=60 [facility] Comment on above: Performed By: #### R ENAL #### [facility] [address] [place] [address] Dr. Irene Cedillo Glucose [Mass/Vol] 130 mg/dL Critically high 74-106 [facility] Comment on above: Performed By: #### R ENAL #### [facility] [address] [address] [address] Irene Cedillo Phosphate [Mass/Vol] 3.9 mg/dL Normal 2.6-4.7 [facility] Comment on above: Performed By: #### R ENAL #### [facility] [address] [address] [address] Irene Cedillo Potassium [Moles/Vol] 4.0 mmol/L Normal 3.5-5.1 [facility] Comment on above: Performed By: #### R ENAL #### [facility] [address] [address] [address] Irene Cedillo Sodium [Moles/Vol] 143 mmol/L Normal 136-145 [facility] Comment on above: Performed By: #### R ENAL #### [facility] [address] [place] [address] Dr. Irene Cedillo Urea nitrogen [Mass/Vol] 16.0 mg/dL Normal 7.0-18.0 [facility] Comment on above: Performed By: #### R ENAL #### [facility] [address] [place] [address] Dr. Irene Cedillo SED RATE [facility] 2022 SED RATE 20 mm/hr Normal <=30 [facility] Comment on above: Performed By: #### C K, CRP #### [facility] [address] [place] [address] Dr. Irene Cedillo MRI ANKLE LT WO [...] TONY DICKINSON Date: 2022-08-26 09:36 Normal [facility] MAMM SCREEN 3D RIAN CADon 08-08-2022 MG MAMM SCREEN 3D RIAN CAD Patient: EMILY MACIAS Exam Date: 08/08/2022 : 1960 Gender:F Ordering : DR. KENDRA MCKINLEY M.D. Admission #: [id number] Family : DR NETTA MONTOYA M.D. Order #: [id number] CLICK HERE TO VIEW EXAM RADIOLOGY REPORT [...] breast cancer at age 78. LOCATION: [facility] BREAST COMPOSITION: Heterogeneously dense,which may obscure small [...] at 15:10 Normal [facility] GLYCOHEMOGLOBIN A1Con 2021 ADA RECOMMENDATION SEE BELOW Normal [facility] Comment on above: Result Comment: ADA RECOMMENDED LIMIT 4.0 - 6.0 ADA THERAPEUTIC TARGET < 7.0 ACTION SUGGESTED > 7.0 Performed By: #### C CPAB #### [facility] [address] [address] [address] Irene Cedillo Glucose [Mass/Vol] 128 mg/dL Normal [facility] Comment on above: Performed By: #### C CPAB #### [facility] [address] [address] [address] Irene Cedillo HbA1c (Bld) [Mass fraction] 6.1 % Normal 4.5-6.2 [facility] Comment on above: Performed By: #### C CPAB #### [facility] [address] [address] [address] Irene Cedillo XR FOOT RIAN MIN [...] PELON ALEXANDRE Date: 2022-07-06 06:21 Normal [facility] OVA AND PARASITE EXAMINATION on 04-13-2022 Ova + Parasite Exam Final report Normal [facility] Comment on above: Result Comment: Thes e results were obtained using wet preparation(s) and trichrome stained smear. This test does not include testing for Cryptosporidium parvum, Cyclospora, or Microsporidia. Performed By: #### S EDR #### [facility] [address] [address] [address] Irene Cedillo Result 1 Comment Normal [facility] Comment on above: Result Comment: No o va, cysts, or parasites seen. . One negative specimen does not rule out the possibility of a parasitic infection. Performed By: #### S EDR #### [facility] [address] [address] [address] Irene Cedillo CALPROTECTIN, FECALon 2021 Calprotectin, Fecal 36 ug/g Normal 0-[address] [facility] Comment on above: Result Comment: Conc entration Interpretation Follow-Up <16 - 50 ug/g Normal None >50 -120 ug/g Borderline Re-evaluate in 4-6 weeks >120 ug/g Abnormal Repeat as clinically indicated Performed By: #### C K, CRP #### [facility] [address] [address] [address] Irene Cedillo HELICOBACTER PYLORI AG STOOL on 04-12-2022 H. pylori Stool Ag, EIA Negative Normal Negative [facility] Comment on above: Performed By: #### H PYLORI #### [facility] [address] [address] [address] Irene Cedillo LACTOFERRIN FECAL QUANTon Lactoferrin, Fecal, Quant. <1.00 Normal 0.00-7.24 [facility] Comment on above: Result Comment: Re sults [...] (IBS). Performed By: #### T SH #### [facility] [address] [place] [address] Dr. Irene Cedillo C. DIFF PCRon 04-08-2022 C. DIFFICILE PCR Negative Normal NEGATIVE [facility] Comment on above: Performed By: #### S EDR #### [facility] [address] [place] [address] Dr. Irene Cedillo GI PANEL (PCR)on 04-08-2022 Adenovirus F 40/41 Not detected Normal NOT DETECTED [facility] Comment on above: Performed By: #### S EDR #### [facility] [address] [place] [address] Dr. Irene Cedillo Astrovirus Not detected Normal NOT DETECTED [facility] Comment on above: Performed By: #### S EDR #### [facility] [address] [place] [address] Dr. Irene Cedillo C. Diff toxin A/B Not detected Normal NOT DETECTED [facility] Comment on above: Performed By: #### S EDR #### [facility] [address] [place] [address] Dr. Irene Cedillo Campylobacter Not detected Normal NOT DETECTED [facility] Comment on above: Performed By: #### S EDR #### [facility] [address] [place] [address] Dr. Irene Cedillo Cryptosporidium Not detected Normal NOT DETECTED [facility] Comment on above: Performed By: #### S EDR #### [facility] [address] [place] [address] Dr. Irene Cedillo Cyclos. Cayetanensis Not detected Normal NOT DETECTED [facility] Comment on above: Performed By: #### S EDR #### [facility] [address] [place] [address] Dr. Irene Cedillo E. Coli O157 Not Applicable Normal Not Applicable [facility] Comment on above: Performed By: #### S EDR #### [facility] [address] [place] [address] Dr. Irene Cedillo E. histolytica Not detected Normal NOT DETECTED [facility] Comment on above: Performed By: #### S EDR #### [facility] [address] [address] [address] Irene Cedillo EAEC Not detected Normal NOT DETECTED [facility] Comment on above: Performed By: #### S EDR #### [facility] [address] [address] [address] Irene Cedillo EIEC Not detected Normal NOT DETECTED [facility] Comment on above: Performed By: #### S EDR #### [facility] [address] [place] [address] Dr. Irene Cedillo EPEC Not detected Normal NOT DETECTED [facility] Comment on above: Performed By: #### S EDR #### [facility] [address] [place] [address] Dr. Irene Cedillo ETEC Not detected Normal NOT DETECTED [facility] Comment on above: Performed By: #### S EDR #### [facility] [address] [place] [address] Dr. Irene Cedillo G. Lamblia Not detected Normal NOT DETECTED [facility] Comment on above: Performed By: #### S EDR #### [facility] [address] [place] [address] Dr. Irene VIGIL CONTROLS PASSED Normal [facility] Comment on above: Performed By: #### S EDR #### [facility] [address] [place] [address] Dr. Irene ACOSTA MITCHEL HEADER GI PANEL BACTERIA Normal [facility] Comment on above: Performed By: #### S EDR #### [facility] [address] [place] [address] Dr. Irene CALDERA ECOLI GI PANEL DIARRHEAGEN IC E.COLI / SHIGELLA Normal [facility] Comment on above: Performed By: #### S EDR #### [facility] [address] [place] [address] Dr. Irene CALDERA INFO SEE BELOW Normal [facility] Comment on above: Result Comment: EAEC - Enteroaggregative E. Coli EPEC- Enteropathogenic E. Coli ETEC- Enterotoxigenic E. Coli lt/st STEC- Shigella-like toxin-producing E. Coli stx1/stx2 EIEC- Shigella/Enteroinvasive E. Coli Performed By: #### S EDR #### [facility] [address] [place] [address] Dr. Irene CALDERA PARASITES GI PANEL PARASITES Normal [facility] Comment on above: Performed By: #### S EDR #### [facility] [address] [place] [address] Dr. Irene CALDERA VIRUS GI PANEL VIRUSES Normal [facility] Comment on above: Performed By: #### S EDR #### [facility] [address] [address] [address] Irene Cedillo Norovirus GI/GII Not detected Normal NOT DETECTED [facility] Comment on above: Performed By: #### S EDR #### [facility] [address] [place] [address] Dr. Irene Cedillo P. Shigelloides Not detected Normal NOT DETECTED [facility] Comment on above: Performed By: #### S EDR #### [facility] [address] [place] [address] Dr. Irene Cedillo Rotavirus A Not detected Normal NOT DETECTED [facility] Comment on above: Performed By: #### S EDR #### [facility] [address] [place] [address] Dr. Irene Cedillo Salmonella Not detected Normal NOT DETECTED [facility] Comment on above: Performed By: #### S EDR #### [facility] [address] [place] [address] Dr. Irene Cedillo Sapovirus Not detected Normal NOT DETECTED [facility] Comment on above: Performed By: #### S EDR #### [facility] [address] [place] [address] Dr. Irene Cedillo STEC Not detected Normal NOT DETECTED [facility] Comment on above: Performed By: #### S EDR #### [facility] [address] [place] [address] Dr. Irene Cedillo Vibrio Not detected Normal NOT DETECTED [facility] Comment on above: Performed By: #### S EDR #### [facility] [address] [place] [address] Dr. Irene Cedillo Vibrio Cholera Not detected Normal NOT DETECTED [facility] Comment on above: Performed By: #### S EDR #### [facility] [address] [place] [address] Dr. Irene Cedillo Y. Enterocolitica Not detected Normal NOT DETECTED [facility] Comment on above: Performed By: #### S EDR #### [facility] [address] [place] [address] Dr. Irene Cedillo BUNon 03-27-2022 Urea nitrogen [Mass/Vol] 20.0 mg/dL Critically high 7.0-18.0 [facility] Comment on above: Performed By: #### C K, CRP #### [facility] [address] [place] [address] Dr. Irene Cedillo CREATININEon 03-27-2022 Creatinine [Mass/Vol] 0.75 mg/dL Normal 0.55-1.02 [facility] Comment on above: Performed By: #### C K, CRP #### [facility] [address] [place] [address] Dr. Irene Cedillo EGFR-AF INDIAN >60 Normal >=60 [facility] Comment on above: Performed By: #### C K, CRP #### [facility] [address] [place] [address] Dr. Irene Cedillo EGFR-NON AF INDIAN >60 Normal >=60 [facility] Comment on above: Performed By: #### C K, CRP #### [facility] [address] [place] [address] ABD/PELV W CONon [...] and/or use of iterative reconstruction technique. Findings: Post Acute Care Registered Nurse: No acute abnormalities are seen. Liver/Biliary System: [...] by: CIELO GARCIA Date: 2022-03-27 21:37 Normal [facility] POINT OF CARE GLUCOSEon 03-10 Glucose [Mass/Vol] 173 mg/dL Critically high 74-106 T [facility] Comment on above: Performed By: #### C CPAB #### [facility] [address] [place] [address] Dr. Irene Cedillo FSHon 02-25-2022 FSH 46.6 mIU/mL Normal [facility] Comment on above: Result Comment: Adul t Female: Follicular phase 3.5 - 12.5 Ovulation phase 4.7 - 21.5 Luteal phase 1.7 - 7.7 Postmenopausal 25.8 - 134.8 Performed By: #### C K, CRP #### [facility] [address] [place] [address] Dr. Irene Cedillo LUTEINIZING HORMONE (LH)on 0 02-25-2022 LH 33.3 mIU/mL Normal [facility] Comment on above: Result Comment: Adul t Female: Follicular phase 2.4 - 12.6 Ovulation phase 14.0 - 95.6 Luteal phase 1.0 - 11.4 Postmenopausal 7.7 - 58.5 Performed By: #### H PYLORI #### [facility] [address] [place] [address] Dr. Irene Cedillo TESTOSTERONE, TOTALon 2021 Testosterone [Mass/Vol] 6 ng/dL Normal 3-67 [facility] Comment on above: Performed By: #### H PYLORI #### [facility] [address] [place] [address] Dr. Irene Cedillo THYROID PEROXIDASE ABon - Thyroid Peroxidase (TPO) Ab <8 Normal 0-34 [facility] Comment on above: Performed By: #### C K, CRP #### [facility] [address] [address] [address] Irene Cedillo FREE T3on 02-24-2022 FREE T3 2.47 pg/mlL Normal 2.18-3.98 [facility] Comment on above: Performed By: #### S EDR #### [facility] [address] [place] [address] Dr. Irene Cedillo LYME DISEASE AB EIA W REFLEX on 01-31-2022 Lyme Total Antibody,EIA Negative Normal Negative [facility] Comment on above: Result Comment: Lyme Antibody Negative No laboratory evidence of infection with B. burgdorferi (Lyme disease). Negative results may occur in patients recently infected (greater than or equal to 14 days) with B. burgdorferi. If recent infection is suspected, repeat testing on a new sample collected in 7 to 14 days is recommended. Performed By: #### T SH #### [facility] [address] [place] [address] Dr. Irene Cedillo CPKon 01-30-2022 CK [Catalytic activity/Vol] 76 U/L Normal 26-192 [facility] Comment on above: Performed By: #### C K, CRP #### [facility] [address] [address] [address] Irene Cedillo CRPon 01-30-2022 CRP 0.4 mg/dL Normal <=1.0 [facility] Comment on above: Performed By: #### C K, CRP #### [facility] [address] [address] [address] Irene Cedillo SED RATE WESTERGRENon 2021 SED RATE 8 mm/hr Normal <=30 [facility] Comment on above: Performed By: #### H PYLORI #### [facility] [address] [address] [address] Irene Cedillo C REACTIVE PROTEINon 021 CRP [Mass/Vol] 9.3 mg/L High 0.0-7.0 [facility] Comment on above: Performed By: #### 6 1405 #### [address] KNEE LEFT 3 VWSon 09-06-2021 KNEE LEFT 3 VWS [facility] Department of Radiology [address] [place] [id number] ======== Patient Name: EMILY MACIAS : 1960 Sex: F Age: Race: White Pt. Location: Patient Status: Ordered Date: 09/06/2021 1:35:00 PM Completed Date: 09/06/2021 01:56 PM Requesting Provider: KIARA WILLETT Attending Provider: Report Copy To: Signs & Symptoms: M25.562 Pain in left knee I10 History: [place] Comments: Evaluate Exam: KNEE LEFT 3 VWS ======== KNEE LEFT 3 S 09/06/2021 1:56 [...] above Electronically signed: Olga Murray. Transcribed by: [email or web address], User Resident: Electronically Signed by: OLGA MURRAY @ 09/06/2021 03:09 PM Normal [facility] Comment on above: Order Comment: Evalu ate KNEE RIGHT 3 [facility] KNEE RIGHT 3 [facility] Department of Radiology [address] [place] [id number] ======== Patient Name: EMILY MACIAS : 1960 Sex: F Age: Race: White Pt. Location: Patient Status: Ordered Date: 09/06/2021 1:35:00 PM Completed Date: 09/06/2021 01:56 PM Requesting Provider: KIARA WILLETT Attending Provider: Report Copy To: Signs & Symptoms: M25.561 Pain in right knee I10 History: [place] Comments: Evaluate Exam: KNEE RIGHT 3 VWS [...] above Electronically signed: Olga Murray. Transcribed by: [email or web address], User Resident: Electronically Signed by: OLGA MURRAY @ 09/06/2021 03:08 PM Normal [facility] Comment on above: Order Comment: Evalu ate SEDIMENTATION RATEon 021 SED RATE 7 mm/hr Normal 0-20 [facility] Comment on above: Performed By: #### [id number] #### [facility] [address] Vital Signs Date Time Vital Sign Value Performing Clinician Facility 02-21-2024 13:040 Body height 165.1 cm Sagar Krause MD Work Phone: [facility] 02-21-2024 13:040 Body mass index (BMI) [Ratio] 31.78 kg/m2 Sagar Krause MD Work Phone: [facility] 02-21-2024 13:040 Body temperature 97.11 [degF] Sagar Krause MD Work Phone: [facility] 02-21-2024 13:040 Body weight 86.64 kg Sagar Krause MD Work Phone: [facility] 12-26-2023 13:54-0400 Body height 165.1 cm Radha SANTOS Work Phone: [facility] 12-26-2023 13:54-0400 Body mass index (BMI) [Ratio] 33.45 kg/m2 Radha Irvin APRN-[employer] Work Phone: [facility] 12-26-2023 13:54-0400 Body weight 91.17 kg Radha Irvin [employer] Work Phone: [facility] [employer] [facility] 08-13-2023 09:30-0500 Body height 161.93 cm Netta Montoya Other [facility] Other 08-13-2023 09:30-0500 Body mass index (BMI) [Ratio] 34.46 kg/m2 Netta Montoya Other [facility] Other 08-13-2023 09:30-0500 Body weight 90.36 kg Netta Montoya Other [facility] Other 08-13-2023 09:30-0500 Diastolic blood pressure 70 mm[Hg] Netta Montoya Other [facility] Other 08-13-2023 09:30-0500 Systolic blood pressure 110 mm[Hg] Netta Montoya Other [facility] Other 08-09-2023 14:48-0500 Body height 165.1 cm Sagar Krause MD Work Phone: [facility] 08-09-2023 14:48-0500 Body mass index (BMI) [Ratio] 33.58 kg/m2 Sagar Krause MD Work Phone: [facility] 08-09-2023 14:48-0500 Body weight 91.54 kg Sagar Krause MD Work Phone: [facility] 04-24-2023 13:30-0400 Body height 161.93 cm Siva Ron Other [facility] Other 04-24-2023 13:30-0400 Body mass index (BMI) [Ratio] 32.52 kg/m2 Siva Ron Other [facility] Other 04-24-2023 13:30-0400 Body weight 85.28 kg Siva Ron Other [facility] Other 04-24-2023 13:30-0400 Diastolic blood pressure 70 mm[Hg] Siva Ron Other [facility] Other 04-24-2023 13:30-0400 Systolic blood pressure 126 mm[Hg] Siva Ron Other [facility] Other 02-22-2023 15:15-0400 Body height 165.1 cm Radha Irvin [employer] Work Phone: [facility] 02-22-2023 15:15-0400 Body mass index (BMI) [Ratio] 31.51 kg/m2 Radha Irvin [employer] Work Phone: [facility] 02-22-2023 15:15-0400 Body temperature 98.01 [degF] Radha Stockey [employer] Work Phone: [facility] [facility] 02-22-2023 15:15-0400 Body weight 85.9 kg Radha Irvin [employer] Work Phone: [facility] 01-09-2023 09:30-0400 Body height 161.93 cm Netta Montoya Other [facility] Other 01-09-2023 09:30-0400 Body mass index (BMI) [Ratio] 33.04 kg/m2 Netta Montoya Other [facility] Other 01-09-2023 09:30-0400 Body weight 86.64 kg Netta Montoya Other [facility] Other 01-09-2023 09:30-0400 Diastolic blood pressure 60 mm[Hg] Netta Montoya Other [facility] Other 01-09-2023 09:30-0400 SaO2% (BldA) [Mass fraction] 97 % Netta Montoya Other [facility] Other 01-09-2023 09:30-0400 Systolic blood pressure 112 mm[Hg] Netta Montoya Other [facility] Other 01-01-2023 15:45-0400 Body height 161.93 cm Siva Ron Other [facility] Other 01-01-2023 15:45-0400 Body mass index (BMI) [Ratio] 34.08 kg/m2 Siva Ron Other [facility] Other 01-01-2023 15:45-0400 Body weight 89.36 kg Siva Ron Other [facility] Other 01-01-2023 15:45-0400 Diastolic blood pressure 71 mm[Hg] Siva Ron Other [facility] Other 01-01-2023 15:45-0400 Systolic blood pressure 116 mm[Hg] Siva Ron Other [facility] Other 11-30-2022 13:58-0400 Body height 165.1 cm Sagar Krause MD Work Phone: [facility] 11-30-2022 13:58-0400 Body mass index (BMI) [Ratio] 32.12 kg/m2 Sagar Krause MD Work Phone: [facility] 11-30-2022 13:58-0400 Body weight 87.54 kg Sagar Krause MD Work Phone: [facility] 10-10-2022 14:30-0500 Body height 161.93 cm Netta Montoya Other [facility] Other 10-10-2022 14:30-0500 Body mass index (BMI) [Ratio] 34.08 kg/m2 Netta Montoya Other [facility] Other 10-10-2022 14:30-0500 Body weight 89.36 kg Netta Montoya Other [facility] Other 10-10-2022 14:30-0500 Diastolic blood pressure 70 mm[Hg] Netta Montoya Other [facility] Other 10-10-2022 14:30-0500 Systolic blood pressure 108 mm[Hg] Nteta Montoya Other [facility] Other 09-13-2022 16:30-0500 Body height 161.93 cm Netta Montoya Other [facility] Other 09-13-2022 16:30-0500 Body mass index (BMI) [Ratio] 33.21 kg/m2 Netta Montoya Other [facility] Other 09-13-2022 16:30-0500 Body weight 87.09 kg Netta Montoya Other [facility] Other 09-13-2022 16:30-0500 Diastolic blood pressure 62 mm[Hg] Netta Montoya Other [facility] Other 09-13-2022 16:30-0500 SaO2% (BldA) [Mass fraction] 97 % Netta Montoya Other [facility] Other 09-13-2022 16:30-0500 Systolic blood pressure 108 mm[Hg] Netta Montoya Other [facility] Other Encounters Encounter Date Encounter Type Care Provider Facility Start: 08-29-2024 End: 08-29-2024 ambulatory Netta Montoya Facility:[facility] Start: 08-18-2024 End: 08-18-2024 ambulatory Netta Montoya MD Facility:[facility] Start: 07-30-2024 ambulatory [facility] Start: 05-13-2024 ambulatory [facility] Start: 04-14-2024 End: 05-11-2024 ambulatory [facility] Start: 02-21-2024 End: 02-21-2024 Office outpatient visit 25 minutes Sagar Krause MD Work Phone: [facility] Comment on above: Hx of total knee art hroplasty, left (Primary Dx); Pain in prosthetic joint, subsequent encounter Start: 02-21-2024 End: 02-21-2024 Subsequent hospital visit by physician Sagra Krause MD Work Phone: [facility] Start: 02-21-2024 ambulatory NETTA MONTOYA [facility] Start: 02-11-2024 ambulatory Netta Montoya MD Facility:[facility] Start: 01-18-2024 End: 01-18-2024 ambulatory Netta Montoya MD Facility:[facility] Start: 01-09-2024 End: 02-09-2024 ambulatory [facility] Start: 12-26-2023 End: 01-09-2024 ambulatory [facility] Start: 12-26-2023 End: 12-26-2023 Office outpatient visit 15 minutes Radha Irvin APRN-[employer] Work Phone: [facility] Comment on above: Hx of total knee art hroplasty, left (Primary Dx) Start: 12-26-2023 End: 12-26-2023 Subsequent hospital visit by physician Radha Irvin [employer] Work Phone: [facility] Start: 12-26-2023 ambulatory [facility] Start: 12-20-2023 End: 12-20-2023 ambulatory Janett Balbuena DPM Facility:[facility] Start: 12-20-2023 End: 12-20-2023 ambulatory Netta Montoya MD Facility:[facility] Start: 10-22-2023 End: 10-22-2023 ambulatory Siva Ron Other [facility] Other Start: 10-22-2023 Telephone encounter Siva Huggins [facility] Start: 08-13-2023 End: 08-13-2023 ambulatory Netta Montoya Other [facility] Other Start: 08-13-2023 Office outpatient visit 15 minutes Netta Montoya [facility] Start: 08-09-2023 End: 08-09-2023 Office outpatient visit 15 minutes Sagar Krause MD Work Phone: [facility] Comment on above: Post-op pain (Primar y Dx); Pain in prosthetic joint, subsequent encounter Start: 08-09-2023 End: 08-09-2023 Subsequent hospital visit by physician Sagar Krause MD Work Phone: [facility] Start: 08-09-2023 ambulatory NETTA MONTOYA [facility] Start: 06-19-2023 End: 06-19-2023 ambulatory MD Netta Montoya Work Phone: [facility] Work Phone: Start: 06-19-2023 End: 06-19-2023 Patient encounter procedure MD Netta Montoya Work Phone: [facility] [place] Work Phone: Start: 05-22-2023 End: 05-22-2023 ambulatory Siva Ron Other [facility] Other Start: 05-22-2023 Telephone encounter Siva Huggins [facility] [employer] Start: 05-09-2023 End: 05-09-2023 ambulatory MD Netta Montoya Work Phone: [facility] Work Phone: Start: 05-09-2023 End: 05-09-2023 Patient encounter procedure MD Netta Montoya Work Phone: [facility] Work Phone: Start: 04-26-2023 End: 04-26-2023 ambulatory Netta Montoya Other [facility] Other Start: 04-26-2023 Telephone encounter Netta Montoya [facility] Start: 04-24-2023 End: 04-24-2023 ambulatory Siva Ron Other [facility] Other Start: 04-24-2023 Office outpatient visit 25 minutes Siva Ron [facility] Start: 04-23-2023 End: 04-23-2023 ambulatory Netta Montoya Other [facility] Other Start: 04-23-2023 Telephone encounter Netta Montoya [facility] Start: 04-20-2023 End: 04-20-2023 ambulatory Netta Montoya Other [facility] Other Start: 04-20-2023 Telephone encounter Netta Montoya [facility] Start: 03-15-2023 End: 03-15-2023 ambulatory Siva Ron Other [facility] Other Start: 03-15-2023 Telephone encounter Siva sheriff [facility] Start: 02-22-2023 End: 02-22-2023 Postop follow up visit related to original ildefonso Irvin [employer] Work Phone: [facility] Comment on above: Hx of total knee art hroplasty, left (Primary Dx) Start: 02-19-2023 End: 02-19-2023 ambulatory Netta Montoya Other [facility] Other Start: 02-19-2023 Telephone encounter Netta Montoya [facility] Start: 01-18-2023 End: 01-19-[address] Erin RON Facility:[facility] Start: 01-17-2023 End: 01-17-2023 ambulatory Siva Ron Other [facility] Other Start: 01-17-2023 Telephone encounter Siva sheriff [facility] Start: 01-16-2023 End: 01-16-2023 ambulatory Siva Ron Other [facility] Other Start: 01-16-2023 Telephone encounter Siva sheriff [facility] Start: 01-09-2023 Encounter for other preprocedural examination Netta Montoya [facility] Start: 01-09-2023 Office outpatient visit 15 minutes Netta Montoya [facility] Start: 01-09-2023 Telephone encounter Netta Montoya [facility] Start: 01-09-2023 End: 01-10-[address] Erin RON [facility] [employer] Other Start: 01-08-2023 End: 01-08-[address] Erin RON Facility:[facility] Start: 01-02-2023 End: 01-02-2023 ambulatory Siva Ron Other [facility] Other Start: 01-02-2023 Telephone encounter Siva sheriff [employer] Start: 01-01-2023 End: 01-01-2023 ambulatory Siva Ron Other [facility] Other Start: 01-01-2023 Office outpatient ne w 45 minutes Siva Ron [facility] Start: 11-30-2022 End: 11-30-2022 Office outpatient new 60 minutes Sagar Krause MD Work Phone: [facility] Comment on above: Pain in prosthetic j oint, sequela (Primary Dx) Start: 11-30-2022 End: 11-30-2022 Subsequent hospital visit by physician Sagar Krause MD Work Phone: [facility] Start: 11-28-2022 End: 11-29-[address] CARA LEO Facility:[facility] Start: 11-09-2022 End: 11-10-2022 ambulatory BRI BERGER Facility:[facility] Start: 10-18-2022 End: 10-19-[address] CARA LEO Facility:[facility] Start: 10-10-2022 End: 10-10-2022 ambulatory Netta Montoya Other [facility] Other Start: 10-10-2022 Office outpatient visit 15 minutes Netta Montoya [facility] Start: 09-22-2022 End: 09-22-2022 ambulatory Netta Montoya Other [facility] Other Start: 09-22-2022 Telephone encounter Netta Montoya [facility] Start: 09-13-2022 End: 09-14-2022 ambulatory JANETT BALBUENA [facility] [employer] Other Start: 09-13-2022 Office outpatient visit 15 minutes Netta Montoya [facility] Start: 08-23-2022 End: 08-24-2022 ambulatory TONY DICKINSON Facility:[facility] Start: 08-22-2022 End: 08-23-2022 ambulatory JANETT BALBUENA Facility:[facility] Start: 08-08-2022 End: 08-09-[address] PELON ALEXANDRE Facility:[facility] Start: 08-01-2022 Adult health examination Netta Montoya Other [facility] Other Start: 08-01-2022 Gynecological examination normal Netta Montoya Other [facility] Other Start: 08-01-2022 Pre-procedure evaluation check Netta Montoya Other [facility] Other Start: 07-11-2022 End: 07-12-[address] NETTA MONTOYA Facility:[facility] Start: 07-05-2022 End: 07-06-2022 ambulatory BASILIO LANDEROS Facility:[facility] Start: 04-08-2022 End: 04-09-[address] DOCTOR DESHPANDE Facility:[facility] Start: 04-05-2022 ambulatory SABINA DELGADILLO . Facility:[facility] Start: 03-28-2022 Encounter for other preprocedural examination DR DOCTOR DESHPANDE [facility] Start: 03-27-2022 End: 03-28-[address] DOCTOR [...] us Sagar Krause MD Work Phone: Start: 06-19-2023 X-ray of [...] Influenza vaccination INFLUENZ A VACCINE (Season Ended) [facility] Start: 02-21-2024 End: 02-20-2025 REQUEST FOR MISC LAB SENDOUT REQUEST FOR MISC LAB SENDOUT Lab Routine Pain in prosthetic joint, subsequent encounter Expected: 02/21/2024, Expires: 02/20/2025 [facility] Comment on above: Expected: 02/21/2024 , Expires: 02/20/2025 Start: 01-30-2024 End: 01-30-2024 Patient encounter procedure 01/30/2024 1:00 PM EDT Office Visit [facility] [address] [place] [address] Radha Irvin, [employer] [address] [place] [address] [facility] Start: 08-09-2023 End: 09-06-2023 C-reactive protein C REACTIVE PROTEIN Lab Routine Pain in prosthetic joint, subsequent encounter Expected: 08/09/2023, Expires: 09/06/2023 [facility] Comment on above: Expected: 08/09/2023 , Expires: 09/06/2023 Start: 08-09-2023 End: 09-06-2023 SEDIMENTATION RATE, AUTOMATED SEDIMENTATION RATE, AUTOMATED Lab Routine Pain in prosthetic joint, subsequent encounter Expected: 08/09/2023 (Approximate), Expires: 09/06/2023 [facility] Comment on above: Expected: 08/09/2023 (Approximate), Expires: 09/06/2023 Start: 07-06-2023 Hemoglobin A1c measurement HBA1C TEST [facility] Start: 06-06-2023 End: 06-06-2023 Patient encounter procedure 06/06/2023 1:10 PM EDT Office Visit [facility] [address] [place] [address] Sagar Krause MD [address] [place] [address] [facility] Start: 05-11-2023 COVID-19 VACCINE ( season) COVID-19 VACCINE ( season) [facility] Start: 05-11-2023 Influenza vaccination A [facility] Start: 05-09-2023 [facility] Start: 01-04-2023 End: 01-04-2023 ambulatory 01/04/2023 Pre-Operative Nurse Assessment Internal Medicine [facility] Start: 05-11-2022 Influenza vaccination INFLUENZA VACC INE (#1) [facility] Start: 12-15-2009 Zoster vaccine hzv l ag for subcutaneous use ZOSTER (SHINGLES) VACCINE (1 of 2) [facility] Start: 12-15-2004 Screening for malign ant neoplasm of colon COLORECTAL CANCER SCREENING DISCUSSION [facility] Start: 1999 Lipid panel LIPID SCREENING [facility] Start: 1999 Screening for malign ant neoplasm of breast MAMMOGRAM SCREENING DISCUSSION [facility] Start: 12-15-1980 Screening for malign ant neoplasm of cervix CERVICAL CANCER SCREENING DISCUSSION [facility] Start: 12-15-1978 Third diphtheria, tetanus and acellular pertussis (DTaP) vaccination TDAP (ADULT) [facility] Start: 12-15-1974 HIV screening HIV SCREENING DISCUSSION [facility] Start: 06-16-1960 COVID-19 VACCINE (#1) COVID-19 VACCI NE (#1) [facility] Start: 1959 Diabetic foot examination DIABETIC FOOT EXAM [facility] Start: 1959 Glaucoma screening EYE EXAM [facility] Start: 1959 Hepatitis C screening HEPATITI S C VIRUS SCREENING [facility] Start: 1959 Lipid panel LIPIDS [facility] Start: 1959 Tetanus vaccination TETANUS [facility] Start: 1959 Thyroid stimulating hormone measurement TSH [facility] Start: 1959 Urine screening for protein URINE MICROALBUMIN TEST [facility] Radiography for bone length studies XR BONE LENGTH STUDY Imaging Routine Pain in prosthetic joint, sequela 11/30/2022 1:41 PM EDT [employer] XR Knee - left 3 Views XR KNEE L EFT 3 VIEWS Imaging Routine Pain in prosthetic joint, sequela 11/30/2022 1:41 PM EDT [facility] Work Phone: XR Knee - left 3 Views XR KNEE L EFT 3 VIEWS Imaging Routine Hx of total knee arthroplasty, left 02/22/2023 2:50 PM EDT [employer] XR Knee - left 3 Views XR KNEE L EFT 3 VIEWS Imaging Routine Post-op pain 08/09/2023 2:03 PM EST [employer] XR Knee - left 3 Views XR KNEE L EFT 3 VIEWS Imaging Routine Hx of total knee arthroplasty, left 12/26/2023 1:43 PM EDT [employer] XR Knee - left 3 Views XR KNEE L EFT 3 VIEWS Imaging Routine Hx of total knee arthroplasty, left 02/21/2024 1:11 PM EDT [facility] Payers Date Payer Category Payer Private Health Insurance 2021 Medicare MEDICARE [place]ET[place] MEDICARE AETNA HMO [id number] 2021-Present [address] [place] [address] [id number] 1959 Unknown [id number] 2.16.840.1.348073.3.579.2.5 93 1959 Unknown [id number] 2..840.1.462017.3.579.2.5 93 1959 Unknown [id number] 2..840.1.233590.3.579.2.5 93 1959 Unknown [id number] 2.16.840.1.291628.3.579.2.5 93 1959 Unknown [id number] 2.16.840.1.458304.3.579.2.5 93 1959 Unknown [id number] 2.16.840.1.559499.3.579.2.5 93 1959 Unknown [id number] 2.16.840.1.236740.3.579.2.5 93 1959 Unknown [id number] 2.16.840.1.423619.3.579.2.5 93 1959 Unknown [id number] 2.16.840.1.658987.3.579.2.5 93 1959 Unknown [id number] 2.16.840.1.568325.3.579.2.5 93 1959 Unknown [id number] 2.16.840.1.239651.3.579.2.5 93 1959 Unknown [id number] 2.16.840.1.480786.3.579.2.5 93 1959 Unknown [id number] 2.16.840.1.210804.3.579.2.5 93 1959 Unknown [id number] 2.16.840.1.845330.3.579.2.5 93 1959 Unknown [id number] 2.16.840.1.586339.3.579.2.5 93 1959 Unknown [id number] 2.16.840.1.423253.3.579.2.5 93 1959 Unknown [id number] 2.16.840.1.682910.3.579.2.5 93 1959 Unknown [id number] 2.16.840.1.819662.3.579.2.5 93 1959 Unknown [id number] 2.16.840.1.658872.3.579.2.5 93 1959 Unknown [id number] 2.16.840.1.994400.3.579.2.9 83 1959 Unknown [id number] 2.16.840.1.898300.3.579.2.9 83 1959 Unknown [id number] 2.16.840.1.584651.3.579.2.9 83 1959 Unknown [id number] 2.16.840.1.140723.3.579.2.9 83 1959 Unknown [id number] 2.16.840.1.778903.3.579.2.9 83 1959 Unknown [id number] 2.16.840.1.290200.3.579.2.9 83 1959 Unknown [id number] 2.16.840.1.790125.3.579.2.1 96 1959 Unknown [id number] 2.16.840.1.242543.3.579.2.1 96 1959 Unknown [id number] 2.16.840.1.821814.3.579.2.1 96 1959 Unknown [id number] 2.16.840.1.834266.3.579.2.1 96 1959 Unknown [id number] 2.16.840.1.924373.3.579.2.1 96 1959 Unknown [id number] 2.16.840.1.916827.3.579.2.1 96 1959 Unknown [id number] 2.16.840.1.140813.3.579.2.1 286 1959 Unknown [id number] 2.16.840.1.587149.3.579.2.1 286 1959 Unknown [id number] 2.16.840.1.200652.3.579.2.1 286 1959 Unknown [id number] 2.16.840.1.752556.3.579.2.1 286 1959 Unknown [id number] 2.16.840.1.971484.3.579.2.1 286 1960 Medicare [id number] 2.16.840.1.969521.19 Unknown O [id number] Social History Date Type Detail Facility Unknown if ever smoked [facility] Other Start: 02-22-2023 End: 12-26-2023 Sex Assigned At [employer] Other Start: 11-30-2022 Tobacco smoking status NHIS Never smoked tobacco [facility] Start: 11-30-2022 Tobacco use and exposure Smokeless tobacco non-user [facility] Start: 11-30-2022 End: 02-21-2024 Alcohol intake Ex-drinker (finding) [facility] Start: 1960 Sex Assigned At Not on file A [facility] Start: 02-22-2023 End: 12-26-2023 History of Social function [facility] [facility] Start: 01-19-2023 End: 01-29-2023 Exposure to SARS-CoV-2 (event) Not sure [facility] [facility] Start: 1960 Sex Assigned At Female F [facility] Medical Equipment Procedure Code Equipment Code Equipment Origin al Text Equipment Identifier Dates One Touch Ultra Test Strips Insert - Knee - [id number] Start: 01-29-2023 Patella - Knee - [id number] Start: 01-29-2023 Revision Pressfi t Stem 12mmx 60 [id number] Start: 01-29-2023 Revision Tibial Base Sz 2 [id number] Start: 01-29-2023 Rev Offset Stem 2mm [id number] t: 01-29-2023 Rev Distal Femor al Augment Sz 5 4mm [id number] Start: 01-29-2023 Rev Crs Femoral Sz 5 Left [id number] Start: 01-29-2023 Palacos R 1 X 40 Us - [id number] Start: 01-29-2023 Palacos R & G Smooth ne Cement High-Viscosity With Gentamicin - [id number] Start: 01-29-2023 Goals Date Patient Goal Desired Activity /State Clinical Notes 03-08-2022 to 02-21-2024 Sandra Canales - 02/21/2024 1:10 PM Verenice Krause MD - 02/21/2024 1:10 PM Margarito Mera - 12/26/2023 2:00 PM DANIELLE Barcenas - 12/26/2023 2:00 PM EDT Note Date [...] 02/21/2024 1:17 PM Patient: Emily Macias MR#: [id number] : 1960 Age: 63 y.o. Referring Physician: [...] daily. 60 capsule 0 Cholecalciferol 250 MCG (44834 UT) capsule capsule Take by mouth daily. [...] DR tablet Take by mouth daily. Pancrelipase, Mxp-Fcvh-Dpfi, (CREON PO) Take 36,000 Units by mouth. [...] by Nasal route once for 1 dose. Sieper into the nose as directed. Call 911. [...] 60 capsule, Rfl: 0 Cholecalciferol 250 MCG (26078 UT) capsule capsule, Take by mouth daily., [...] by mouth daily., Disp: , Rfl: Pancrelipase, Its-Oela-Uccp, (CREON PO), Take 36,000 Units by mouth. [...] by Nasal route once for 1 dose. Sieper into the nose as directed. Call 911. [...] bracing and also reported she applied for non profit financial controller for additional PT. Should she need additional PT script, she will let my office know otherwise will see back in 8 weeks should she still remain symptomatic. All questions were answered to her satisfaction. LARGE JOINT/BURSA INJECTION AND/OR ASPIRATION: L knee Date/Time: 02/21/2024 1:10 PM Performed by: Sagar Krause MD Authorized by: Sagar Krause MD Supporting Documentation Indications: pain Procedure Details: [...] Date/Time: 02/21/2024 1:10 PM Performed by: Sagar Krause MD Authorized by: Sagar Krause MD Supporting Documentation Indications: pain Procedure Details: [...] have reviewed the findings of the clinical child support officer and agree with their assessment. Ortho Nurse - Established Patient Intake Room#: 2 Pt is here for left knee pain ( LTKA revision 01/30/24. Pt states that she is still having pain in her knee. Pain is 4-5. Pt did physical therapy, and took the medication but no relief. Pt would like to discuss options Date: 02/21/2024 1:17 PM Patient: Emily Macias MR#: [id number] : 1960 Age: 63 y.o. Referring Physician: Self, Self Insurance: Payor: MEDICARE [employer] HMO OR PPO / Plan: MEDICARE [employer] HMO / Product Type: *No Product type* [...] daily. 60 capsule 0 Cholecalciferol 250 MCG (27309 UT) capsule capsule Take by mouth daily. [...] DR tablet Take by mouth daily. Pancrelipase, Peq-Wutf-Gyaz, (CREON PO) Take 36,000 Units by mouth. [...] by Nasal route once for 1 dose. Sieper into the nose as directed. Call 911. [...] 60 capsule, Rfl: 0 Cholecalciferol 250 MCG (37624 UT) capsule capsule, Take by mouth daily., [...] by mouth daily., Disp: , Rfl: Pancrelipase, Fay-Ofgz-Jhir, (CREON PO), Take 36,000 Units by mouth. [...] by Nasal route once for 1 dose. Sieper into the nose as directed. Call 911. [...] [tizanidine], and vancomycin. documented in this encounter [facility] 12-26-2023 History of Presen t illness Narrative Ortho Nurse - Established Patient Intake Room#: 5 Date: 12/26/2023 1:55 PM Patient: Emily Macias MR#: [id number] : 1960 Age: 63 y.o. 1yr L TKA Pt stated her knee has been locking on her and has pain 5/10. Pt stated she is almost always a 4-5/10 on the pain scale. Referring Physician: Self, Self Insurance: [facility] O / Plan: MEDICARE [employer] HMO / Product Type: *No Product type* [...] daily. 60 capsule 0 Cholecalciferol 250 MCG (07519 UT) capsule capsule Take by mouth daily. [...] DR tablet Take by mouth daily. Pancrelipase, Zzn-Hdot-Dsxd, (CREON PO) Take 36,000 Units by mouth. [...] by Nasal route once for 1 dose. Sieper into the nose as directed. Call 911. [...] 60 capsule, Rfl: 0 Cholecalciferol 250 MCG (05745 UT) capsule capsule, Take by mouth daily., [...] by mouth daily., Disp: , Rfl: Pancrelipase, Zvv-Ylds-Tumq, (CREON PO), Take 36,000 Units by mouth. [...] by Nasal route once for 1 dose. Sieper into the nose as directed. Call 911. [...] SUBJECTIVE: Emily is an established patient of [facility]. She is here today for followup. She [...] She thinks she had that done at [facility]. We will try and obtain those results. [...] up with Dr. Krause for clinical examination. (DOC:[id number]) I have reviewed the findings of the clinical child support officer and agree with their assessment. Radha Irvin APRN-[employer] Ortho Nurse - Established Patient Intake Room#: 5 Date: 12/26/2023 1:55 PM Patient: Emily Macias MR#: [id number] : 1960 Age: 63 y.o. 1yr L TKA Pt stated her knee has been locking on her and has pain 5/10. Pt stated she is almost always a 4-5/10 on the pain scale. Referring Physician: Self, Self Insurance: [facility] O / Plan: [facility] / Product Type: *No Product type* / [...] daily. 60 capsule 0 Cholecalciferol 250 MCG (94043 UT) capsule capsule Take by mouth daily. [...] DR tablet Take by mouth daily. Pancrelipase, Wun-Bmyu-Knnt, (CREON PO) Take 36,000 Units by mouth. [...] by Nasal route once for 1 dose. Sieper into the nose as directed. Call 911. [...] 60 capsule, Rfl: 0 Cholecalciferol 250 MCG (06084 UT) capsule capsule, Take by mouth daily., [...] by mouth daily., Disp: , Rfl: Pancrelipase, Jut-Gfdc-Sxva, (CREON PO), Take 36,000 Units by mouth. [...] by Nasal route once for 1 dose. Sieper into the nose as directed. Call 911. [...] [tizanidine], and vancomycin. documented in this encounter [facility] 08-13-2023 Evaluation note Encounter Date Diagnosis Assessment Notes Aug, Piriformis syndrome, right (ICD-10 - G57.01) Pt declines PT at this time. Gave handouts for exercises and use flexeril qhs. Aug, Trochanteric bursitis, right hip (ICD-10 - M70.61) Pt declines PT. Muscle relaxer and handouts given. [facility] 11-30-2023 History of Present illness Narrative* [...] 08/09/2023 2:58 PM Patient: Emily Macias MR#: [id number] : 1960 Age: 62 y.o. Referring Physician: Sagar Krause MD Insurance: Payor: MEDICARE [employer] HMO OR PPO / Plan: MEDICARE [employer] HMO / Product Type: *No Product type* [...] DR tablet Take by mouth daily. Pancrelipase, Mhs-Lfhd-Ijji, (CREON PO) Take 36,000 Units by mouth. [...] taking: Reported on 08/09/2023) Cholecalciferol 250 MCG (53462 UT) capsule capsule Take by mouth daily. [...] by Nasal route once for 1 dose. Sieper into the nose as directed. Call 911. [...] have reviewed the findings of the clinical child support officer and agree with their assessment. Ortho Nurse [...] 08/09/2023 2:58 PM Patient: Emily Macias MR#: [id number] : 1960 Age: 62 y.o. Referring Physician: Sagar Krause MD Insurance: Payor: MEDICARE [employer] HMO OR O / Plan: MEDICARE [employer] HMO / Product [...] HYSTERECTOMY 2004 CHOLECYSTECTOMY LAPAROSCOPIC 1996 OTHER SURGICAL 1990 ruptured ovarian cyst RELEASE [...] DR tablet Take by mouth daily. Pancrelipase, Puj-Kybw-Cjwd, (CREON PO) Take 36,000 Units by mouth. [...] taking: Reported on 08/09/2023) Cholecalciferol 250 MCG (05495 UT) capsule capsule Take by mouth daily. [...] by Nasal route once for 1 dose. Sieper into the nose as directed. Call 911. [...] zanaflex [tizanidine], and vancomycin. documented in this [facility]08-15-2023 Evaluation note* Encounter Date Diagnosis Assessment Notes Treatment Notes Treatment Clinical Notes Apr, Abdominal cramping (ICD-10 - R10.9) Patient reports doing well Apr, Diverticulosis (ICD-10 - K57.90) Apr, Alternating constipation and diarrhea (ICD-10 - R19.8) Apr, Pancreatic atrophy (ICD-10 - K86.89) Apr, Fatty liver (ICD-10 - K76.0) [facility] 08-11-2023 Evaluation note* Encounter Date Diagnosis Assessment Notes Treatment Notes Treatment Clinical Notes Apr, Type 2 diabetes mellitus with hyperglycemia, without long-term current use of insulin (ICD-10 - E11.65) [facility] 06-15-2023 History of Present illness Narrative* Hayleyrhys Delgado, MORGAN - 02/22/2023 3:00 PM EDT Ortho Nurse - Established Patient Intake Room#: 5 Patient is S/P L knee medial/partial revision to TKA. Patient using walker today and penelope hose are in place. She states the worse pain is at HS while trying to sleep. Sitting pain 4/10 Walking pain is 5/10 Date: 02/22/2023 3:16 PM Patient: Emily Macias MR#: [id number] : 1960 Age: 62 y.o. Referring Physician: Radha Irvin APRN-CNP Insurance: Payor: MEDICARE [employer] HMO OR O / Plan: MEDICARE A[employer] HMO / Product [...] daily. 84 capsule 0 Cholecalciferol 250 MCG (24787 UT) capsule capsule Take by mouth daily. [...] by Nasal route once for 1 dose. Sieper into the nose as directed. Call 911. If no response in 2 minutes use a new nasal spray in other nostril. Repeat until help arrives. 1Each [address] Omepraz[address] tablet Take by mouth daily. oxyCODONE 5 MG tablet Take 1-2 tabs po q 4-6 hours prn pain. Wean as tolerated. 20 tablet 0 Pancrelipase, Rbl-Mxjn-Yxuy, (CREON PO) Take 36,000 Units by mouth. [...] 84 capsule, Rfl: 0 Cholecalciferol 250 MCG (55045 UT) capsule capsule, Take by mouth daily., [...] by Nasal route once for 1 dose. Sieper into the nose as directed. Call 911. [...] tolerated., Disp: 20 tablet, Rfl: 0 Pancrelipase, Asu-Qcbv-Xtsc, (CREON PO), Take 36,000 Units by mouth. [...] [milnacipran], zanaflex [tizanidine], and vancomycin. * Radha Irvin, ALVARO-[employer] - 02/22/2023 3:00 PM EDT HPI: Emily [...] understanding. All pertinent portions of the clinical child support officer documentation was reviewed and agree. DANIELLE Gimenez I have reviewed the findings of the clinical child support officer and agree with their assessment. DANIELLE Gimenez Ortho Nurse - Established Patient Intake Room#: 5 Patient is S/P L knee medial/partial revision to TKA. Patient using walker today and penelope hose are in place. She states the worse pain is at HS while trying to sleep. Sitting pain 4/10 Walking pain is 5/10 Date: 02/22/2023 3:16 PM Patient: Emily Macias MR#: [id number] : 1960 Age: 62 y.o. Referring Physician: Radha Irvin APRN-CNP Insurance: Payor: MEDICARE AET[employer] HMO OR [...] daily. 84 capsule 0 Cholecalciferol 250 MCG (36383 UT) capsule capsule Take by mouth daily. [...] by Nasal route once for 1 dose. Sieper into the nose as directed. Call 911. If no response in 2 minutes use a new nasal spray in other nostril. Repeat until help arrives. 1Each 0 Omeprazole [address] tablet Take by mouth daily. oxyCODONE 5 MG tablet Take 1-2 tabs po q 4-6 hours prn pain. Wean as tolerated. 20 tablet 0 Pancrelipase, Yju-Urqi-Ceob, (CREON PO) Take 36,000 Units by mouth. [...] 84 capsule, Rfl: 0 Cholecalciferol 250 MCG (11316 UT) capsule capsule, Take by mouth daily., [...] by Nasal route once for 1 dose. Sieper into the nose as directed. Call 911. [...] tolerated., Disp: 20 tablet, Rfl: 0 Pancrelipase, Pvx-Piba-Ozgi, (CREON PO), Take 36,000 Units by mouth. [...] zanaflex [tizanidine], and vancomycin. [facility] Encounter Date Diagnosis Assessment Notes Treatment Notes Treatment Clinical Notes January, Alternating constipation and diarrhea (ICD-10 - R19.8) [facility] 05-02-2023 Evaluation note* Encounter Date Diagnosis [...] is medically cleared for the knee surgery. 02 May, 2023 Type 2 diabetes mellitus with hyperglycemia, without long-term current use of insulin (ICD-10 - E11.65) D/C Ozempic Samples given of Ilas and pt will trial those. [facility] 04-24-2023 Evaluation note* Encounter Date Diagnosis [...] scan in October of last year in [place], following a colonoscopy that was done in September Start Mesalamine Dec, Alternating constipation and diarrhea (ICD-10 - R19.8) Start low fod map diet Start probiotics [facility] 03-23-2023 History of Present illness Narrative* [...] 11/30/2022 2:13 PM Patient: Emily Macias MR#: [id number] : 1960 Age: 61 y.o. Referring Physician: [...] [x]cane, []bracing Are you followed by a assistant merchandiser? [] [x] Name: Are you followed by pain management? [] [x] Name: Are you followed by any other specialists? [x] [] Name: RA Dr Felipa Santana Outpatient Medications Prior to Visit Medication Sig Dispense Refill Ascorbic Acid 1000 MG tablet Take 1 tablet by mouth daily. B Complex Vitamins (B COMPLEX 1 PO) Take by mouth. Biotin 67526 MCG tablet Take by mouth. Cholecalciferol 250 MCG (37302 UT) capsule capsule Take by mouth. Cobalamin [...] Take by mouth., Disp: , Rfl: Biotin 18660 MCG tablet, Take by mouth., Disp: , Rfl: Cholecalciferol 250 MCG (94443 UT) capsule capsule, Take by mouth., Disp: [...] symptoms. She has history of partial medial [place] uni knee on 08/13/[address] Lazar. [...] left knee. She has a medial partial [place] uni-arthroplasty in place with severe adjacent patellofemoral arthritis. IMPRESSION: 1.) History of left partial medial [place] uni knee on 08/13/[address] Lazar. [...] conversion from uni to total for optimal reference data expert management. We have discussed in great detail [...] of limb, and ultimately loss of life. [facility] expectations, risks and general implant survivorship were also discussed. Despite these risks, the patient would liketo proceed with surgical planning. Today, we will initiate the pre-surgical process including nasalMRSA screening, scheduling an appointment [facility] [place] and the potential surgical date, andreviewing and [...] Take by mouth., Disp: , Rfl: Biotin 86193 MCG tablet, Take by mouth., Disp: , Rfl: Cholecalciferol 250 MCG (25443 UT) capsule capsule, Take by mouth., Disp: [...] migraines Zanaflex [Tizanidine] Hallucination documented in this [facility]20[facility] Evaluation note* Encounter Date Diagnosis Assessment Notes Treatment Notes Treatment Clinical Notes Sep, Fibromyalgia (ICD-10 - M79.7) handicap placard rx handwritten Sep, Type 2 diabetes mellitus with hyperglycemia, without long-term current use of insulin (ICD-10 - E11.65) good readings on home meter with present meds. Sep, Positive ADRI (antinuclear antibody) (ICD-10 - R76.8) Suggested getting on cancellation list at Rheumatology [facility] Other 01-13-2023 Evaluation note* Encounter Date Diagnosis Assessment Notes Treatment Notes Treatment Clinical Notes Sep, Positive ADRI (antinuclear antibody) (ICD-10 - R76.8) Sep, Fibromyalgia (ICD-10 - M79.7) [facility] Other 01-04-2023 Evaluation note* Encounter Date Diagnosis Assessment Notes Treatment Notes Treatment Clinical Notes Sep, Abdominal cramping (ICD-10 - R10.9) Sep, Type 2 diabetes mellitus with hyperglycemia, without long-term current use of insulin (ICD-10 - E11.65) advised holding or decreasing dose of ozempic to 0.25/week as this could relate to GI side effects [facility] Other 10-31-2022 NotePROCEDURE: XR TIB_FIB RT 2V COMPARISON: 08/24/2021 HISTORY: Pain in lower limb FINDINGS: BONES:No acute fracture or dislocation. Degenerative changes of the knee and ankle. Enthesopathic spurring of the calcaneus SOFT TISSUES:Negative. No visible soft tissue swelling. EFFUSION:None visible. OTHER: Negative. IMPRESSION: Osteoarthritis Electronically authenticated by: WANDA DIANE Date: 2022-07-10 13:36[facility]06-29-2022 NoteCONSULTATION CONSULTATION DATE: 03/08/2022 HISTORY OF PRESENT [...] of pain. 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 [...] care and would like to move forward. [facility] Signed and Approved by: SABINA DELGADILLO . 03/09/2022 13:38:00[facility]* Diagnosis Pain in prosthetic joint, sequela- Primary [facility] InformationNort [facility] Other Evaluation note* Diagnosis Hx of total knee arthroplasty, left- Primary [facility] assessment information [facility] Work Phone: Evaluation note* Diagnosis Post-op pain- Primary Other acute postoperative pain Pain in prosthetic joint, subsequent encounter [facility] Diagnosis Hx of total knee arthroplasty, left- Primary [facility] Diagnosis Hx of total knee arthroplasty, left- Primary Pain in prosthetic joint, subsequent encounter [facility] general Narrative - Reported* Type Description Date [...] diabetes divya itus with hyperglycemia, unspecified whether skilled nursing insulin use Medical History Fitzpatrick splints, right, [...] pain Medical History Diverticulosis Surgical History hemorrhoidectomy 2013 Surgical History rectocele 2013 Surgical History HYSTERECTOMY [...] AND ADENOIDECTOMY Hospitalization History mono Hospitalization History menegitis [facility] Other History general Narrative - Reported* Type [...] diabetes divya itus with hyperglycemia, unspecified whether skilled nursing insulin use Medical History Fitzpatrick splints, right, [...] knee 01/29/2023 Hospitalization History mono Hospitalization History [facility] Other Reason for referral (narrative)* Consultation (Routine) - Patient to Arrange Specialty Diagnoses / Procedures Referred By Westley finnegan Referred To Contact Physical Therapy Diagnoses Hx of total knee arthroplasty, left Radha Irvin APRN-CNP [address] [place] [address] Referral ID Status Reason Start Date Expiration Date V isits Requested Visits Authorized [id number] Patient to Arrange 02/22/2023 03/18/2024 1 1 Scheduling Instructions . * Diagnostic X-Ray (Routine) - New Request Specialty Diagnoses / Procedures Referred By Westley finnegan Referred To Contact Diagnoses Hx of total knee arthroplasty, left Procedures XR KNEE LEFT 3 VIEWS Radha Irvin APRN-CNP [address] [place] [address] Referral ID Status Reason Start Date Expiration Date V isits Requested Visits Authorized [id number] New Request 02/20/2023 03/16/2024 1 1 [facility] Summary Purpose Family History No [...] 1 Abdominal cramping ( R10.9) Referral Organization [facility] Elvia hair Referring Provider First Name Netta Referring Provider Last Name Lindsay Referring Provider Specialty Family Medi cine Referred Organization [facility] Referred Provider Ismael Early Referred Address [address] [place], [place],[address] Referred Provider Specialty Gastroentero logy Referral Priority Routine Referral Appointment Date 2022-12-28 General Notes Sonali Cortez 10:30:02 AM >received today, notes locked and referral faxed Sonali Cortez 09/25/2022 10:48:23 AM >pt scheduled Reason 11/21/22 See phone note - this is related to a fur puller in [place] area testing labs. I do not have a copy of his labs. Diagnosis 1 Positive ADRI (antinu clear antibody) (R76.8) Referral Organization [facility] reginaldo Referring Provider First Name Netta Referring Provider Last Name Lindsay Referring Provider Specialty Family [facility] cine Referred Organization [facility] Referred Provider Cara Leo Referred Address [address] [place],[address] Referred Provider Specialty Rheumatology Referral Priority Routine Referral Appointment Date 2022-11-21 General Notes Sonali Cortez 09:22:28 AM >received today, notes attached and ins card attached. will call pt to see who she saw in [place] to get labs. Sonali Cortez 09/25/2022 10:37:57 AM >spoke with patient and was provided Dr. Balbuena phone number [phone] to request labs. told patient I would [...] XR BONE LENGTH STUDY Sagar Krause MD [address] [facility] [place] [address] Referral ID Status Reason Start Date Expiration Date V isits Requested Visits Authorized [id number] New Request 11/24/2022 12/19/2023 1 1 Specialty Diagnoses / Procedures Referred By Contac t Referred To Contact Diagnoses Pain in prosthetic joint, sequela Procedures XR KNEE LEFT 3 VIEWS Sagar Krause MD [address] [place] [id number] Referral ID Status Reason Start Date Expiration Date V isits Requested Visits Authorized [id number] New Request 11/24/2022 12/19/2023 1 1 Specialty Diagnoses / Procedures Referred By Contac t Referred To Contact Diagnoses Post-op pain Procedures XR KNEE LEFT 3 VIEWS Sagar Krause MD [address] [place] [id number] Referral ID Status Reason Start Date Expiration Date V isits Requested Visits Authorized [id number] New Request 08/06/2023 08/30/2024 1 1 Specialty Diagnoses / Procedures Referred By Contac t Referred To Contact Diagnoses Hx of total knee arthroplasty, left Procedures XR KNEE LEFT 3 VIEWS Radha Irvin, CRATE ICER-KEIRA [address] [place] [address] Referral ID Status Reason Start Date Expiration Date V isits Requested Visits Authorized [id number] New Request 12/25/2023 01/18/2025 1 1 Specialty Diagnoses / Procedures Referred By Contac t Referred To Contact Diagnoses Hx of total knee arthroplasty, left Procedures XR KNEE LEFT 3 VIEWS Sagar Krause MD [address] [place] [id number] Referral ID Status Reason Start Date Expiration Date V isits Requested Visits Authorized [id number] New Request 02/14/2024 03/10/2025 1 1 Chief Complaint and Reason for Visit Chief Complaint Abdominal Cramping, EPI Chief Complaint Abdominal Cramping, EPI Low back pain Additional Source Comments INFORMATION SOURCE (unrecogn ized section and content) DATE CREATED AUTHOR 09/08/2021 [facility] DATE CREATED AUTHOR AUTHOR'S ORGANIZ ATION 01/23/2023 [facility] DATE CREATED AUTHOR AUTHOR'S ORGANIZ ATION 02/29/2024 [facility] DATE CREATED AUTHOR AUTHOR'S ORGANIZ ATION 08/24/2024 [facility] DATE CREATED AUTHOR AUTHOR'S ORGANIZ ATION 08/30/2024 [facility] DATE CREATED AUTHOR AUTHOR'S ORGANIZ ATION 09/02/2024 [facility] REASON FOR VISIT (unrecogniz ed section and content) Specialty Diagnoses / Procedures Referred By Contac t Referred To Contact Diagnoses Pain in prosthetic joint, sequela Procedures XR BONE LENGTH STUDY Sagar Krause MD [address] [place] [address] Referral ID Status Reason Start Date Expiration Date V isits Requested Visits Authorized [id number] New Request 11/24/2022 12/19/2023 1 1 Reason Comments Pain Reason Comments Surgical Follow-up Specialty Diagnoses / Procedures Referred By Contac t Referred To Contact Diagnoses Post-op pain Procedures XR KNEE LEFT 3 VIEWS Sagar Krause MD [address] [place] [id number] Referral ID Status Reason Start Date Expiration Date V isits Requested Visits Authorized [id number] New Request 08/06/2023 08/30/2024 1 1 Reason Comments Pain Specialty Diagnoses / Procedures Referred By Contac t Referred To Contact Diagnoses Hx of total knee arthroplasty, left Procedures XR KNEE LEFT 3 VIEWS Radha Irvin, CRATE [employer] [address] [place] [address] Referral ID Status Reason Start Date Expiration Date V isits Requested Visits Authorized [id number] New Request 12/25/2023 01/18/2025 1 1 Reason Comments Follow-up Specialty Diagnoses / Procedures Referred By Contac t Referred To Contact Diagnoses Hx of total knee arthroplasty, left Procedures XR KNEE LEFT 3 VIEWS Sagar Krause MD [address] [place] [phone] Referral ID Status Reason Start Date Expiration Date V isits Requested Visits Authorized [id number] New Request 02/14/2024 03/10/2025 1 1 Care Teams (unrecognized sec tion and content) Him Manager Relationship Specialty Start Date End Date Netta Montoya MD [address] [place] [address] PCP - General Family Medicine 10/20/22 Him Manager Relationship Specialty Start Date End Date Netta Montoya MD [address] [place] [address] PCP - General Family Medicine 10/20/22 Him Manager Relationship Specialty Start Date End Date Netta Montoya MD [address] [place] [address] PCP - General Family Medicine 10/20/22 Team Status: Active Member Role Status Dates Netta Montoya MD Primary Care Provider Active Team Status: Inactive Member Role Status Dates Siva Ron MD Attending Provider Active Netta Montoya MD Primary Care Provider Active Team Status: Inactive Member Role Status Dates Netta Montoya MD Primary Care Provider Active Cara Leo MD Attending Provider Active Him Manager Relationship Specialty Start Date End Date Netta Montoya MD [address] [place] [address] PCP - General Family Medicine 10/20/22 Him Manager Relationship Specialty Start Date End Date Netta Montoya MD [address] [place] [address] PCP - General Family Medicine 10/20/22 Him Manager Relationship Specialty Start Date End Date Netta Montoya MD [address] [place] [address] PCP - General Family Medicine 10/20/22 Him Manager Relationship Specialty Start Date End Date Netta Montoya MD [address] [place] [address] PCP - General Family Medicine 10/20/22 FOR [...] BE BASED ON THE PRIMARY CLINICAL RECORDS. [facility]. provides no warranty or guarantee of the accuracy or completeness of information in this document.
[2024-09-08 11:22] VITALS: BP 119/72; PULSE 86; TEMP 36.1; O2SAT 94
[2024-09-08 11:30] LABS: Glucometer 131 mg/dL (74-106)
[2024-09-08 11:58] VITALS: BP 125/57; PULSE 90; O2SAT 96
[2024-09-08 12:01] VITALS: BP 130/65; PULSE 87; O2SAT 98
[2024-09-08] MEDS: 0.9 % SODIUM CHLORIDE 10 ML SYRINGE - SALINE FLUSH 2 ML INJ (12:05)
[2024-09-08] MEDS: IOHEXOL 240 MG/ML - 50 ML VIAL 24 MG INJ (12:05)
[2024-09-08] MEDS: BUPIVACAINE HCL 0.25% PF 25 MG/10 ML VIAL 2 ML INJ (12:05)
[2024-09-08] MEDS: LIDOCAINE HCL 2% PF 100 MG/5 ML VIAL 4 ML INJ (12:06)
[2024-09-08] MEDS: METHYLPREDNISOLONE ACETATE 80 MG/ML VIAL INJ (12:06)
--- NOTE | 2024-09-08 12:06 | P.ON_ITS ---
Date of procedure: 09/08/24 Pre-op diagnosis: Pain due to right sciatica Post-op diagnosis: same as pre-op Procedure: Procedure: Right sciatic nerve block Medications: Bupivacaine 0.25% 3cc, normal saline 0.9% 4cc, depomedrol 80mg The patient was seen and examined in the preoperative holding area.? The site was marked.? Informed consent was obtained and placed on the chart.? The patient was brought to the medical procedures unit and placed in the prone position when a timeout was completed verifying correct patient, procedure, site, positioning, and planned special equipment.? The area overlying the right femoral neck of the appropriate side was prepped and draped using aseptic equipment.? A 22-gauge, 6- inch Stimuplex needle was advanced through a skin wheal of 2% lidocaine, emitting 2 mA of current at 2 Hz.? The needle tip was advanced under fluoroscopic visualization until plantarflexion was achieved at which point Omnipaque dye was injected.? This showed adequate spread.? There was no evidence of neurovascular uptake.? The above-mentioned injectate was placed in two 2.5 mL aliquots preceded by negative aspiration without sequelae.? The needle was removed.? The insertion site was covered.? The patient was taken to the postprocedural recovery area where the patient was monitored for the appropriate length of time before being found suitable for discharge in the accompaniment of a responsible adult. Anesthesia: Local Surgeon: Chandra Edouard Pathology: none sent Condition: stable Disposition: no change
== END 2024-09-08 12:09 | disposition home or self-care (01) ==
LOC: SURGOUT 09:09
PROVIDERS: PCP Family Medicine; Visit Provider Anesthesiology
DX: M54.31 Sciatica, right side (principal); Z12.31 Encounter for screening mammogram for malignant neoplasm of breast; Z80.3 Family history of malignant neoplasm of breast
CPT/HCPCS: 36415; 64445; 77003; 77063; 77067; 82948; J0665; J1010; Q9966

== ENCOUNTER 2024-09-08 09:14 | Outpatient (OUT) | payer MEDICARE, SELFPAY ==
--- NOTE | 2024-09-08 09:15 | MM_ITS ---
Patient Name: EMILY MACIAS MR#: [id number] : 1960 Exam Date: 09/08/2024 Ordering Doctor: DR Soila Joseph M.D. RADIOLOGY REPORT PROCEDURE: MM TOMOSYNTHESIS SCREENING BI COMPARISON: MM TOMOSYNTHESIS SCREENING BI, 08/13/2023. MG MAMM SCREEN 3D RIAN CAD, 08/08/2022. MG MAMM SCREEN 3D RIAN CAD, 07/19/2021. MG MAMM RIAN SCRN W CAD DIG, 02/25/2013. INDICATIONS: Screening Calculator Name NCI Breast Cancer Risk Assessment Tool 5 Year Breast Cancer Risk 3.10% Lifetime Breast Cancer Risk 12.10% Personal Breast Cancer No Personal Ovarian Cancer No Treatments None Family Cancers Father with skin cancer at age ~65; Mother with breast cancer at age 79. LOCATION: [facility] BREAST COMPOSITION: The breasts are heterogeneously dense,which may obscure small masses. FINDINGS: DIAGNOSTIC CATEGORY 1--NEGATIVE. RIGHT BREAST: No significant suspicious finding. No significant change has occurred. LEFT BREAST: No significant suspicious finding. No significant change has occurred. RECOMMENDATIONS: ROUTINE MAMMOGRAM AND CLINICAL EVALUATION IN 12 MONTHS. PLEASE NOTE: A NORMAL MAMMOGRAM DOES NOT EXCLUDE THE POSSIBILITY OF BREAST CANCER. A CLINICALLY SUSPICIOUS PALPABLE LUMP SHOULD BE BIOPSIED. Dictated by: Derik Rangel M.D. on 09/08/2024 at 16:50 Approved by: Derik Rangel M.D. on 09/08/2024 at 16:52
== END 2024-09-08 09:15 | disposition home or self-care (01) ==
LOC: MAMMO 09:14
PROVIDERS: PCP Family Medicine; Visit Provider Family Medicine
DX: Z12.31 Encounter for screening mammogram for malignant neoplasm of breast (principal); Z80.3 Family history of malignant neoplasm of breast
CPT/HCPCS: 77063; 77067

== ENCOUNTER 2024-09-18 08:48 | Outpatient (OUT) | payer MEDICARE, SELFPAY ==
--- NOTE | 2024-09-18 09:16 | P.CN_ITS ---
Consult Note: HPI Data of Consult Patient: known to practice within the last 3 years Consult date: 08/18/24 Requesting Physician: Tayler Augustin NP Primary Care Provider: Soila Joseph MD Consult Narrative Reason for consult: low back, right hip, right leg pain Narrative: 63yof who presents for assessment. worsening pain through low back into right hip, right leg. imaging reviewed, which shows disc bulge and tear at l4-5 to the right. has completed >6 weeks of provider directed home exercises, without benefit. uses celebrex, robaxin, tramadol, zonegran. recently underwent right sciatic nerve block with no improvement. Pt continues to have moderate to severe daily pain severely impacting her day to day life. MARITZA 48%. Pain today 4-5/10, increasing to 9/10 in right back, hips, buttocks right leg and left knee. Pain stabbing, sharp, pinching, burning. Pain increased with standing, walking, pushing, pulling, sleep. Pain improved with changing positions and heat. cc:: CC: Tayler Augustin NP Review of Systems ROS Status of ROS 10 or more systems reviewed and unremark able except as noted in history and below [facility] Medical History (Updated 09/18/24 @ 09:37 by Tayler Augustin NP) Rectocele ?N81.6 - Rectocele (ICD-10) Cataract, left eye ?H26.9 - Unspecified cataract (ICD-10) Cataract, right eye ?H26.9 - Unspecified cataract (ICD-10) History of revision of total replacement of left knee joint ?Z96.652 - Presence of left artificial knee joint (ICD-10) Plantar fasciitis of right foot ?M72.2 - Plantar fascial fibromatosis (ICD-10) Tear of left meniscus as current injury ?S83.207A - Unspecified tear of unspecified meniscus, current injury, left knee, initial encounter (ICD-10) Ruptured ovarian cyst ?N83.209 - Unspecified ovarian cyst, unspecified side (ICD-10) Surgical History H/O hemorrhoidectomy ?Z98.890 - Other specified postprocedural states (ICD-10) History of fundoplication ?Z98.890 - Other specified postprocedural states (ICD-10) History of hysterectomy ?Z90.710 - Acquired absence of both cervix and uterus (ICD-10) History of laparoscopic cholecystectomy ?Z90.49 - Acquired absence of other specified parts of digestive tract (ICD-10) History of carpal tunnel surgery of right wrist ?Z98.890 - Other specified postprocedural states (ICD-10) History of tonsillectomy and adenoidectomy ?Z90.89 - Acquired absence of other organs (ICD-10) Meds Home Medications and Allergies Home Medications ?Medication ?Instructions ?Recorded ?Confirmed ?Type LINZESS DAILY 06/24/24 History celecoxib 200 mg capsule (Celebrex) 200 mg PO BID 06/24/24 09/08/24 History eszopiclone 3 mg tablet (Lunesta) 3 mg DAILY 06/24/24 History levothyroxine 100 mcg tablet 100 mcg PO DAILY 06/24/24 09/08/24 History (Euthyrox) magnesium 250 mg tablet 500 mg PO DAILY 06/24/24 09/08/24 History metformin 1,000 mg tablet 1,000 mg PO BID 06/24/24 09/08/24 History multivitamin 1 tab PO DAILY 06/24/24 09/08/24 History omeprazole 20 mg capsule,delayed 20 mg PO DAILY 06/24/24 09/08/24 History release oxybutynin chloride 5 mg tablet 5 mg PO DAILY 06/24/24 09/08/24 History semaglutide 1 mg/dose (4 mg/3 mL) 1 mg subcut QWEEK 06/24/24 09/08/24 History subcutaneous pen injector (Ozempic) tramadol 50 mg tablet 50 mg PO BID 06/24/24 09/08/24 History vitamin B complex 1 cap PO DAILY 06/24/24 09/08/24 History methocarbamol 500 mg tablet 500 mg PO TID #90 tabs 08/18/24 09/08/24 Rx Allergies Allergy/AdvReac Type Severity Reaction Status Date / Time milnacipran (From Savella) Allergy Unknown Unknown Verified 09/08/24 11:28 tizanidine (From Zanaflex) Allergy Unknown Unknown Verified 09/08/24 11:28 Exam Narrative Exam Narrative: Psych-alert and oriented x 3. Attentive and appropriate, constitutionally normal, displays normal mood and affect per situation. There are no obvious deficits in memory, reasoning, or intellect.? Skin-no obvious rashes, bruising, erythema noted to the patient's area of pain.? Extremities- extremities are warm with minimal edema and palpable pulses. left knee painful to touch, full ROM Lumbar-tenderness to palpation noted in the lumbar spine and paraspinal musculature. Pain is elicited with flexion, extension, and lateral rotation of the lumbar spine. Range of motion is diminished with these motions. Facet loading maneuvers are positive.? Strength-noted to be unremarkable with the exception of decreased strength rated at 4 out of 5 in right quadriceps femoris. Sensory-no notable sensory deficits in the bilateral lower extremities to touch or pinprick in all dermatomal distributions with the exception to decreased sensation to the right L4, 5 dermatomal distribution Coordination remains intact.? Gait remains non-antalgic. Assessment and Plan Assessment and Plan (1) Lumbar disc displacement without myelopathy: (2) Lumbar radiculopathy: (3) Unspecified mononeuropathy of left lower limb: Plan 63yof who presents for assessment. failed conservative measures, as noted. imaging reviewed, as noted. given symptoms and imaging, we will refer to NS for consideration of surgical intervention vs spinal cord stimulation. meds reviewed, increase zonegran 100mg HS and start transdermal therapeutics cream 6a to Left knee TID-qid prn. f/u after NS consult
== END 2024-09-18 08:49 | disposition home or self-care (01) ==
LOC: PM 08:48
PROVIDERS: PCP Family Medicine; Visit Provider Nurse Practitioner
DX: M51.26 Other intervertebral disc displacement, lumbar region (principal); M54.16 Radiculopathy, lumbar region
CPT/HCPCS: G0463

== ENCOUNTER 2024-10-30 14:26 | Outpatient (OUT) | payer MEDICARE, SELFPAY ==
--- NOTE | 2024-10-30 15:30 | P.CN_ITS ---
Consult Note: HPI Data of Consult Patient: known to practice within the last 3 years Requesting Physician: Tayler Augustin NP Primary Care Provider: Soila Joseph MD Consult Narrative Reason for consult: bilateral low back pain Narrative: 63yof who presents for assessment. worsening pain through low back into bilateral hips. imaging reviewed, which shows disc bulge and tear at l4-5 to the right. has completed >6 weeks of provider directed home exercises, without benefit. uses celebrex, robaxin, tramadol, zonegran. recently underwent right sciatic nerve block with no improvement. Pt continues to have moderate to severe daily pain severely impacting her day to day life. MARITZA 47%. Pain today 4-5/10, increasing to 9/10. Pain stabbing, sharp, pinching, burning. Pain increased with standing, walking, pushing, pulling, sleep. Pain improved with changing positions and heat. cc:: CC: Tayler Augustin NP Review of Systems ROS Status of ROS 10 or more systems reviewed and unremark able except as noted in history and below Musculoskeletal Reports: back pain PFSH PFSH Medical History (Updated 10/30/24 @ 15:31 by Tayler Augustin NP) Rectocele ?N81.6 - Rectocele (ICD-10) Cataract, left eye ?H26.9 - Unspecified cataract (ICD-10) Cataract, right eye ?H26.9 - Unspecified cataract (ICD-10) History of revision of total replacement of left knee joint ?Z96.652 - Presence of left artificial knee joint (ICD-10) Plantar fasciitis of right foot ?M72.2 - Plantar fascial fibromatosis (ICD-10) Tear of left meniscus as current injury ?S83.207A - Unspecified tear of unspecified meniscus, current injury, left knee, initial encounter (ICD-10) Ruptured ovarian cyst ?N83.209 - Unspecified ovarian cyst, unspecified side (ICD-10) Surgical History H/O hemorrhoidectomy ?Z98.890 - Other specified postprocedural states (ICD-10) History of fundoplication ?Z98.890 - Other specified postprocedural states (ICD-10) History of hysterectomy ?Z90.710 - Acquired absence of both cervix and uterus (ICD-10) History of laparoscopic cholecystectomy ?Z90.49 - Acquired absence of other specified parts of digestive tract (ICD- 10) History of carpal tunnel surgery of right wrist ?Z98.890 - Other specified postprocedural states (ICD-10) History of tonsillectomy and adenoidectomy ?Z90.89 - Acquired absence of other organs (ICD-10) Meds Home Medications and Allergies Home Medications ?Medication ?Instructions ?Recorded ?Confirmed ?Type LINZESS DAILY 06/24/24 History celecoxib 200 mg capsule (Celebrex) 200 mg PO BID 06/24/24 09/08/24 History eszopiclone 3 mg tablet (Lunesta) 3 mg DAILY 06/24/24 History levothyroxine 100 mcg tablet 100 mcg PO DAILY 06/24/24 09/08/24 History (Euthyrox) magnesium 250 mg tablet 500 mg PO DAILY 06/24/24 09/08/24 History metformin 1,000 mg tablet 1,000 mg PO BID 06/24/24 09/08/24 History multivitamin 1 tab PO DAILY 06/24/24 09/08/24 History omeprazole 20 mg capsule,delayed 20 mg PO DAILY 06/24/24 09/08/24 History release oxybutynin chloride 5 mg tablet 5 mg PO DAILY 06/24/24 09/08/24 History semaglutide 1 mg/dose (4 mg/3 mL) 1 mg subcut QWEEK 06/24/24 09/08/24 History subcutaneous pen injector (Ozempic) tramadol 50 mg tablet 50 mg PO BID 06/24/24 09/08/24 History vitamin B complex 1 cap PO DAILY 06/24/24 09/08/24 History methocarbamol 500 mg tablet 500 mg PO TID #90 tabs 08/18/24 09/08/24 Rx zonisamide 50 mg capsule 100 mg (2 x 50 mg) PO DAILY #60 09/18/24 Rx caps zonisamide 100 mg capsule 100 mg PO DAILY #30 caps 10/21/24 Rx (Zonegran) Allergies Allergy/AdvReac Type Severity Reaction Status Date / Time milnacipran (From Savella) Allergy Unknown Unknown Verified 09/08/24 11:28 tizanidine (From Zanaflex) Allergy Unknown Unknown Verified 09/08/24 11:28 Exam Constitutional Documenting provider has reviewed patient's vital signs: yes Common normals: no apparent distress, oriented x3, healthy appearing, alert and well nourished General appearance: cooperative HENMT Common normals: normocephalic, hearing grossly normal bilaterally and moist oral mucous membranes Head and scalp: normocephalic Eye Common normals: PERRL Pupil: PERRL Neck & C-Spine Common normals: full ROM General: normal visual inspection Chest Common normals: inspection of chest normal Respiratory Common normals: normal respiratory effort, no retractions and no use of accessory muscles Back & Pelvis Lumbar spine/lower back: ROM limited and pain with ROM Sacroiliac joints: SI joint(s) abnormal Other: bilateral sij positive tiffany(patricks), gaenslens, thigh thrust, compression test Neuro Common normals: oriented x3, CN's II-XII intact bilaterally, moves all extrem ities, no focal motor deficits, no sensory deficits noted and deep tendon reflexes 2+ bilaterally Sensorium/orientation: alert Motor exam: strength 5/5 throughout and no movement abnormalities noted Psych Common normals: mental status grossly normal, thought process normal, cooperative, affect normal, speech normal and activity/motor behavior normal Speech: normal speech Thought process: normal thought process Assessment and Plan Assessment and Plan (1) Bilateral sacroiliitis: Plan bilateral sij injection under fluoroscopy continue HEP as tolerated increase robaxin 500-1000mg TID PRN pain/spasms continue celebrex 200mg BID PRN and zonegran 100mg HS f/u 2 weeks after injection
== END 2024-10-30 14:27 | disposition home or self-care (01) ==
LOC: PM 14:26
PROVIDERS: PCP Family Medicine; Visit Provider Nurse Practitioner
DX: M46.1 Sacroiliitis, not elsewhere classified (principal)
CPT/HCPCS: G0463

== ENCOUNTER 2024-11-10 08:25 | Day surgery (SDC) | payer MEDICARE, SELFPAY ==
--- OUTSIDE RECORDS SUMMARY | 2024-11-10 08:38 | XMS_ITS | CCD ---
Author Organization [facility] CliniSytn Care Team Providers Care Butcher Assistant Name Role Phone Netta Montoya Unavailable Siva Ron Unavailable [phone] MISC, DR BECERRA Admitting Unavailable MISC, DR BECERRA Attending Unavailable MONTOYA, DR NETTA Conti Primary Care Unavailable MISC, DR BECERRA Consulting Unavailable CIELO GARCIA Consulting Unavailable TONY DICKINSON Consulting Unavailable LINDSAY, DR NETTA Conti Primary Care Unavailable JANETT BALBUENA Attending Unavailable JANETT BALBUENA Admitting Unavailable JANETT BALBUENA Consulting Unavailable LEONA .SABINA Admitting Unavailable LEONA .SABINA Attending Unavailable LINDSAY, DR NETTA Conti Primary [...] LINDSAY, DR NETTA Conti Primary Care Unavailable LEONA .SABINA Consulting Unavailable REESE ., DR PAWEL [...] ESHAJANETT Attending Unavailable ESHA, JANETT Admitting Unavailable ESHA, JANETT Consulting Unavailable MONTOYA, DR NETTA Conti Primary Care Unavailable ESHA, JANETT Attending Unavailable ESHA, JANETT Admitting Unavailable Montoya Netta LEVIN Primary Care Provider [phone] MD Siva Ron Attending Provider MD Netta Montoya Primary Care Provider MD Cara Leo Attending Provider [phone] NETTA MONTOYA Primary Care Unavailable SAGAR KRAUSE Attending Unavailable SAGAR KRAUSE Referring Unavailable NETTA MONTOYA Primary Care Unavailable SAGAR KRAUSE Attending Unavailable SAGAR KRAUSE Referring Unavailable NETTA MONTOYA Primary Care Unavailable SAGAR KRAUSE Attending Unavailable SAGAR KRAUSE Referring Unavailable SELF, SELF Referring Unavailable BRANDEE, RADHA Attending Unavailable NETTA MONTOYA Primary Care Unavailable BRANDEE, RADHA Referring Unavailable NETTA MONTOYA Primary Care Unavailable BRANDEE, RADHA Attending Unavailable NETTA MONTOYA Primary Care Unavailable SELF, SELF Referring Unavailable SAGAR KRAUSE Attending Unavailable BRANDEE, RADHA Referring Unavailable NETTA MONTOYA Primary Care Unavailable BRANDEE, RADHA Referring Unavailable NETTA MONTOYA Primary Care Unavailable BRANDEE, RADHA Referring Unavailable NETTA MONTOYA Primary Care Unavailable BRANDEE, RADHA Referring Unavailable NETTA MONTOYA Primary Care Unavailable LAKSHMIPATHY, NARENDRANATH Referring Unava ilable NETTA MONTOYA Primary Care Unavailable LAKSHMIPATHY, NARENDRANATH Referring Unava ilable NETTA MONTOYA Primary Care Unavailable Lindsay LEVIN, Netta Calzada [facility] Unava ilable Esha DPM, Janett Govea Attending Unavailab charbel Montoya MD, Netta [facility] Unava ilable Esha DPM, Janett Govea Attending Unavailab charbel Montoya MD, Netta [facility] Unava ilable Silke LEVIN, Chandra Nova Attending Unavailable Silke LEVIN, Chandra Nova Attending Unavailable Lindsay LEVIN, [facility] Unava illaura Montoya MD, Netta [facility] Unava ilable Esha DPM, Janett Govea Attending Unavailab Gopal LEVIN, Netta [facility] Unava ilable Esha DPM, Janett Govea Attending Unavailab charbel Montoya MD, [facility] Unava ilable Esha DPM, Janett Govea Attending Unavailab HANY Louis Referring Unavailable Netta Montoya MD Primary Care Provider Jb Grady APRN Attending Provider Netta Montoya Primary Care Unavailable Jb Grady Admitting Unavailable Jb Grady Attending Unavailable Netta Montoya Primary Care Unavailable Jb Grady Admitting Unavailable Jb Grady Attending Unavailable Allergies Allergy Classification Reported Allergen(s) Allergy Type Date of Onset Reaction(s) Facility (20 sources) milnacipran; Translations: [Savella] Drug Allergy 09-02-20 13 SEVERE HEADACHES [facility] Repository (20 sources) Morphine; Translations: [MORPHINE] Drug Allergy 11-19-19 21 Unknown, Hives [facility] Repository (20 sources) tiZANidine; Translations: [Zanaflex] Drug Allergy 09-02-20 13 Hallucinations [facility] Repository (14 sources) milnacipran; Translations: [MILNACIPRAN] Drug Allergy 02-10-20 17 Headache [facility] (14 sources) tiZANidine; Translations: [TIZANIDINE] Drug Allergy 02-10-20 17 Hallucination [facility] (2 sources) Morphine Drug Allergy [facility] Repository (18 sources) Vancomycin Drug Allergy 01-30-20 23 Hives [facility] (7 sources) Allergies Reconciled Propensity to adverse reactions Unknown [facility] Other (7 sources) Saveraja *PSYCHOTHERAPEU TIC AND NEUROLOGICAL AGENTS Propensity to adverse reactions Unknown [facility] Other (1 source) ALLERGIES NOT ON FILE; Translations: [ALLERGIES NOT ON FILE] Propensity to adverse reactions (disorder) [facility] Repository (2 sources) Saveraja *PSYCHOTHERAPEU TIC AND Allergy to substance 10-24-19 24 [facility] Comment on above: Free Text Allergy: S avella *PSYCHOTHERAPEUTIC AND NEUROLOGICAL AGENTS Medications Current Medications Medication Drug Class(es) Dates [...] day with plain water Orally Active amylase 407297 unt / lipase 22812 unt / protease 819176 unt delayed release oral capsule (11 sources) Start: 01-16-2024 take 2 capsules by mouth three times daily at mealtime, then take 1 capsule by mouth four times daily Omhxxh-Dtxdzjkz-Rix lase (Creon) 36,000-114,000- 180,000 unit capsule,delayed release(DR/EC) Active CAP PO January 15, 2024 11:00pm FreeTextSi capsules three times a day with meals and 1 capsule with a snack Orally four times a day; Note: Source Status: TakingPLEASE CHECK ALLERGIES; Refills: 5; Provider: Ariadne Briceno Start: 01-25-2023 take 2 capsules by m outh three times daily at mealtime, then take 1 capsule by mouth four times daily Creon [id number] UNIT 2 capsules three times a day with meals and 1 capsule with a snack Orally four times a day for 30 days PLEASE CHECK ALLERGIES January, Active ascorbic acid 1000 mg oral tablet (8 sources) Vitamin C Start: 10-24-2023 take 1 tablet by mouth twice daily Ascorbic Acid (Vitamin C) 1,000 mg tablet Active 1 TAB PO Twice daily October 24, 2023 12:00am FreeTextSi tablet Orally TWICE A DAY; Note: Source Status: Taking; Provider: Lindsay Cm ( ) take 1 tablet by mouth once alannah [...] 1 PO) Take by mouth. 0 Active biotin 10 mg oral tablet (2 sources) Biotin 59718 MCG tablet Take by mouth. 0 Active Calcium (15 sources) Phosphate Binder, Calcium Calciu m + D Active Calcium Carb-Cholecalciferol (CALCIUM + D3 PO) (7 sources) Calcium Carb-Cholecalciferol (CALCIUM + D3 PO) Take by mouth daily. Active Calcium Carb-Cho lecalciferol (CALCIUM + D3 PO) Take by mouth daily. 0 Active celecoxib 200 mg oral capsule (20 sources) Nonsteroidal Anti-inflammatory Drug Start: 09-30-2024 take 2 capsules by mouth twice daily Celecoxib 200 mg capsule Active 400 MG PO Twice daily September 30, 2024 1:54pm Start: 05-13-2024 End: 09-30-2024 take 2 capsules by mouth once daily Celecoxib 200 mg capsule Discontinued 400 MG PO Daily 180 May 13, 2024 3:29pm September 30, 2024 1:59pm Start: 10-24-2023 End: 05-13-2024 take 1 capsule by mouth once daily at mealtime Celecoxib 200 mg capsule Discontinued 200 MG PO Daily March 20, 2024 10:18am May 13, 2024 3:29pm FreeTextSi capsule with food Orally Once a day; Note: Source Status: Taking; Provider: Lindsay Cm ( ) Start: 03-23-2023 take 1 capsule by [facility] twice daily Celecoxib 200 MG capsule Take 1 capsule by mouth 2 times daily. 60 capsule 03/23/2023 Active Start: 01-29-2023 End: 03-12-2023 take 1 capsule by mouth twice daily Celecoxib 200 MG capsule Take 1 capsule by mouth 2 times daily. 84 capsule 0 01/29/2023 03/12/2023 Active cephalexin 500 mg oral capsule (5 sources) Cephalosporin Antibacterial take 1 capsule by mouth every six hours Cephalexin 500 MG 1 capsule Orally Four times a day Active cholecalciferol 0.025 mg oral capsule (12 sources) Vitamin D Start: 024 Cholecalciferol (Vitamin D3) 25 mcg (1,000 unit) capsule Active PO October 24, 2023 12:00am FreeTextSi/2 DAILY IN SUMMER Orally Once a day; Note: Source Status: Taking; Provider: Lindsay Cm ( ) Cholecalciferol 250 MCG (96929 UT) capsule capsule Take by mouth daily. Active Cholecalciferol 250 MCG (84101 UT) capsule capsule Take by mouth. 0 Active dapagliflozin 10 mg oral tablet (10 [...] as needed Orally Twice a day Active docusate sodium 100 mg oral capsule (13 sources) Start: 04-21-2024 End: 04-21-2024 take 1 capsule by mouth once daily Docusate Sodium (Colace) 100 mg capsule Active 100 MG PO Daily April 21, 2024 9:59am Start: 01-29-2023 take 1 capsule by [facility] twice daily Docusate 100 MG capsule Take 1 capsule by mouth 2 times daily. 60 capsule 01/29/2023 Active take 1 capsule by [facility] twice daily Docusate (Stool Softener) 100 MG capsule Take 1 capsule by mouth 2 times daily. 0 Active estrogens, conjugated (halfway) 0.625 mg/ml vaginal cream (5 sources) Estrogen Premarin 0.625 M G/GM as directed Vaginal Active FLUoxetine 40 mg oral capsule (5 [...] as needed for Mild Pain. 0 Active Insulin Aspart U-100 (Novolog Flexpen U-100 Insulin) 100 unit/mL (3 mL) insulin pen (2 sources) Start: 12-13-2023 Insulin Aspart U-100 (Novolog Flexpen U-100 Insulin) 100 unit/mL (3 mL) insulin pen Active 1 sliding scale dose SUBCUT Use as Directed December 12, 2023 11:00pm Iodine (5 sources) Iodine Active lifitegrast 50 mg/ml ophthalmic solution (18 sources) Lymphocyte Function-Associated Antigen-1 Antagonist Start: 11-06-2022 Xiidra 5 % Solution ophthalmic solution Place in both eyes 2 times daily. 11/06/2022 Active take 1 drop(s) into the eye(s) twice daily Xiidra 5 % 1 drop into affected eye Ophthalmic Twice a day Active linaclotide 0.072 mg oral capsule (9 sources) Guanylate Cyclase-C Agonist Start: 09-30-2024 take 1 capsule by mouth once daily Linaclotide (Linzess) 72 mcg capsule Active 72 MCG PO Daily September 30, 2024 12:00am Start: 06-23-2024 End: 08-29-2024 take 1 capsule by mouth once daily Linaclotide (Linzess) 72 mcg capsule Discontinued 72 MCG PO Daily June 22, 2024 11:00pm August 29, 2024 11:06am Linzess 72 MCG 1 capsule at least 30 minutes before the first meal of the day on an empty stomach Orally Once a day Active Lutein (15 sources) Lutein Active LUTEIN PO Take 2 5 mg by mouth. 0 Active magnesium oxide 500 mg oral capsule (9 sources) Magnesium 500 MG capsule Take by mouth daily. Active melatonin 5 mg oral capsule (9 sources) Melatonin 5 MG c apsule Take by mouth at bedtime. Active methocarbamol 500 mg oral tablet (20 sources) Muscle Relaxant Start: take 2 tablets by mouth once daily at bedtime Methocarbamol 500 mg tablet Active 1000 MG PO Daily at bedtime September 30, 2024 1:56pm Start: 08-29-2024 End: 09-30-2024 take 1 tablet by mouth three times daily Methocarbamol 500 mg tablet Discontinued 500 MG PO Three times daily August 29, 2024 12:00am September 30, 2024 1:59pm Start: 10-24-2023 End: 07-17-2024 take 2 tablets by mouth at bedtime Methocarbamol 750 mg tablet Discontinued 750 MG PO October 24, 2023 12:00am July 17, 2024 2:31pm FreeTextSi tablets Orally at HS; Note: Source Status: Taking; Provider: Lindsay Cm ( ) METHOCARBAMOL PO Take by mouth. 0 Active Multi For Her (15 sources) Multi For Her Ac tive Multiple Vitamins-Minerals (One Daily Calcium/Iron) tablet (9 sources) take 1 tablet by william th once daily Multiple Vitamins-Minerals (One Daily Calcium/Iron) tablet Take 1 tablet by mouth daily. Active take 1 tablet by mouth once alannah y Multiple Vitamins-Minerals (One Daily Calcium/Iron) tablet Take 1 tablet by mouth daily. 0 Active Multivitamin preparation (5 sources) Multivitamin Act ag Multivitamin tablet (2 sources) Start: 07-29-20 take 1 tablet by mouth once daily Multivitamin tablet Active 1 TAB PO Daily July 29, 2024 12:00am Multivitamin/Iron (5 sources) Multivitamin/Iro n Active nabumetone 750 mg oral tablet (2 sources) Nonsteroidal Anti-inflammatory Drug Start: 11-29-19 nabumetone 750 MG tablet naloxone hydrochloride 40 mg/ml nasal spray (4 sources) Opioid Antagonist Start: 01-30-20 End: 01-30-20 naloxone 4 MG/0.1ML 1 spray by Nasal route once for 1 dose. [place] into the nose as directed. Call 911. If no response in 2 minutes use a new nasal spray in other nostril. Repeat until help arrives. 1 Each 01/29/2023 Active [place] 3 (5 sources) [place] 3 Active OneTouch Ultra 2 w/Device (18 sources) OneTouch Ultra 2 w/Device as directed Active oxybutynin chloride 5 mg oral tablet (11 sources) Cholinergic Muscarinic Antagonist Start: 04-21-20 take 1 tablet by mouth once daily Oxybutynin Chloride 5 mg tablet Active 5 MG PO Daily April 20, 2024 11:00pm Start: 02-29-2024 End: 04-21-2024 take 1 tablet by mouth once daily Oxybutynin Chloride 5 mg tablet extended release 24hr Discontinued 5 MG PO Daily February 29, 2024 11:21am April 21, 2024 10:00am take 1 tablet by [facility] three times daily as needed Oxybutynin Chloride 5 MG 1 tablet Orally THREE TIMES A DAY NEEDED Active oxyCODONE hydrochloride 5 mg oral tablet (4 sources) Opioid Agonist Start: 02-06-2023 take 1-2 tablets by mouth every four to six hours as needed for pain oxyCODONE 5 MG tablet Indications: Acute postoperative pain of knee Take 1-2 tabs po q 4-6 hours prn pain. Wean as tolerated. 20 tablet 02/06/2023 Active Ozempic (0.25 or 0.5 MG/DOSE) 2 MG/1.5ML (2 sources) Ozempic (0.25 or 0.5 MG/DOSE) 2 MG/1.5ML as directed Subcutaneous Active Pancrelipase, [id number]-[id number]-Lqrt, (CREON PO) (7 sources) take 1 tablet by mouth once daily Pancrelipase, Jow-Pbyh-Jqdb, (CREON PO) Take 36,000 Units by mouth. 2 tablet by mouth with each meal, 1 tablet by mouth with 1 snack daily Active take 1 tablet by mouth once alannah y Pancrelipase, Rnk-[id number]-Ffdq, (CREON PO) Take 36,000 Units by mouth. [...] Active Robaxin-750 (5 sources) Robaxin-750 Acti ve Saccharomyces Boulardii (Resistance Formula Probiotic) 10 billion cell capsule (2 sources) Start: 04-21-20 take 10 capsules by mouth once daily Saccharomyces Boulardii (Resistance Formula Probiotic) 10 billion cell capsule Active 56728 MMU CELLS PO Daily April 20, 2024 11:00pm Selenium (5 sources) Selenium Active Semaglutide (2 sources) Start: 12-13-19 24 Semaglutide (Ozempic) 0.25 mg or 0.5 mg (2 mg/3 mL) pen injector Active 0.5 MG SUBCUT every week December 12, 2023 11:00pm for 4 weeks SITagliptin 100 mg oral tablet (7 sources) Dipeptidyl Peptidase 4 Inhibitor Start: 09-30-19 take 1 tablet by mouth once daily Sitagliptin Phosphate (Januvia) 100 mg tablet Active 100 MG PO Daily September 30, 2024 12:00am Start: 04-03-2023 take 1 tablet by william th every twenty-four hours Januvia 100 MG 1 tablet Orally Once a day for 90 days Mar, Active Specialty Vitamins Products (ICAPS lutein & zeaxanthin) Tab DR (9 sources) take 1 tablet by william th once daily Specialty Vitamins Products (ICAPS lutein [...] Active Stool Softener (15 sources) Stool Softener Active thyroid (CARE HOME) (5 sources) Nature-Throid Ac tive Tumeric (2 sources) Start: 04-21-2024 Tumeric Active PO April 20, 2024 11:00pm turmeric extract 500 mg oral capsule (2 sources) Turmeric 500 MG capsule Take by mouth. 0 Active ubiquinol 100 mg oral capsule (2 sources) Start: 07-29-2024 take 1 capsule by mouth twice daily Coq10 (Ubiquinol) (Qunol Boyd Coq10) 100 mg capsule Active 100 MG PO Twice daily July 29, 2024 12:00am Ubrelvy 100 MG (5 sources) Start: 04-03-2023 [...] MG (14 sources) take 1 tablet by mouth twice daily Vitamin C 1000 MG 1 tablet Orally TWICE A DAY Active Vitamin D-3 25 MCG (1000 UT) (17 sources) Vitamin D-3 25 M CG (1000 UT) 1/2 DAILY IN SUMMER Orally Once a day Active zolpidem tartrate 10 mg oral tablet (3 sources) gamma-Aminobutyri c Acid-ergic Agonist Start: 10-02-2022 Zolpidem Tartrate 10 MG TAKE 1 TABLET AT BEDTIME for 90 Sep, Active zonisamide 50 mg oral capsule (2 sources) Anti-epileptic Agent Start: 09-30-2024 take 1 capsule by mouth twice daily Zonisamide 50 mg capsule Active 50 MG PO Twice daily September 30, 2024 12:00am Completed/Discontinued Medications Medication Drug Class(es) Dates Sig (Normalized) Sig (Original) amoxicillin 875 mg / clavulanate 125 mg oral tablet (2 sources) Penicillin-class Antibacterial Start: 01-29-2024 End: 02-11-2024 take 1 tablet by mouth twice daily Amoxicillin-Pot Clavulanate 875-125 mg tablet Discontinued 1 TAB PO Twice daily 29 06January 28, 2024 11:00pm February 11, 2024 10:23am azithromycin 250 mg oral tablet (2 sources) Macrolide Antimicrobial Start: 12-13-2023 End: 01-16-2024 Azithromycin 250 mg tablet Discontinued 0 PO .COMPLEX December 12, 2023 11:00pm January 16, 2024 9:46am For 250 mg dose pack: take 500 mg today (day 1), then 250 mg for 4 days (days 2-5) PO baclofen 10 mg oral tablet (14 sources) gamma-Aminobutyric Acid-ergic Agonist Start: 07-17-2024 End: 08-29-2024 take 2 tablets by mouth twice daily Baclofen 10 mg tablet Discontinued 20 MG PO Twice daily July 17, 2024 12:00am August 29, 2024 11:04am baclofen 10 MG t ablet Take 2 tablets by mouth as needed. Active take 1 tablet by william th twice daily at mealtime as needed Baclofen 20 MG 1 tablet Administer witho ut regards to meals as needed Orally Twice a day Active benzonatate 200 mg oral capsule (2 sources) Non-narcotic Antitussive Start: 01-29-2024 End: 02-18-2024 take 1 capsule by mouth three times daily as needed for cough Benzonatate 200 mg capsule Discontinued 200 MG PO Three times daily as needed for cough 09 07January 28, 2024 11:00pm February 18, 2024 9:32am cyclobenzaprine hydrochloride 5 mg oral tablet (4 sources) Muscle Relaxant Start: 08-13-2023 End: 01-16-2024 take 1 tablet by mouth once daily at bedtime Cyclobenzaprine 5 mg tablet Discontinued 1 TAB PO Daily at bedtime October 24, 2023 12:00am January 16, 2024 9:46am FreeTextSi tablet at bedtime as needed Orally Once a day; Note: Source Status: Start; Provider: Lindsay Conti dextromethorphan hydrobromide 3 mg/ml / promethazine hydrochloride 1.25 mg/ml oral solution (2 sources) Phenothiazine, Uncompetitive B-yihfos-R-aspartate Receptor Antagonist, Sigma-1 Agonist Start: 01-23-2024 End: 01-29-2024 take 1 mL by mouth every four to six hours as needed for cough Promethazine-Dm 6.25-15 mg/5 mL syrup Discontinued 5 ML PO EVERY 4-6 HOURS as needed for cough 118 January 22, 2024 11:00pm January 29, 2024 10:21am dicyclomine hydrochloride 10 mg oral capsule (13 sources) Anticholinergic Start: 08-29-2024 End: 09-30-2024 Dicyclomine 10 mg capsule Discontinued 10 MG PO August 29, 2024 12:00am September 30, 2024 1:54pm Start: 06-23-2024 End: 07-17-2024 take 1 tablet by mouth three times daily Dicyclomine 20 mg tablet Discontinued 20 MG PO Three times daily June 22, 2024 11:00pm July 17, 2024 2:33pm Start: 04-21-2024 End: 07-17-2024 take 1 capsule by mouth twice daily as needed for pain Dicyclomine 10 mg capsule Discontinued 10 MG PO Twice daily as needed for abdominal pain April 20, 2024 11:00pm July 17, 2024 2:33pm take 1 capsule by mo [facility] every eight hours Dicyclomine HCl 10 MG 1 capsules Orally Three times a day Active take 1 tablet by william every six hours Dicyclomine 20 MG tablet Take 1 tablet by mouth every 6 hours. 0 Active doxepin hydrochloride 100 mg oral capsule (5 sources) Tricyclic Antidepressant take 1 capsule by mouth every twenty-four hours Doxepin HCl 100 MG 1 capsule at bedtime Orally Once a day Not-Taking doxycycline monohydrate 100 mg oral tablet (2 sources) Tetracycline-class Drug Start: End: take 1 tablet by mouth twice daily Doxycycline Monohydrate 100 mg tablet Discontinued 100 MG PO Twice daily 29 06January 22, 2024 11:00pm January 29, 2024 10:21am DULoxetine (5 sources) Serotonin and Norepinephrine Reuptake Inhibitor take 1 capsule by mouth once daily Cymbalta 90 MG 1 capsule Orally Once a day for 30 day(s) Not-Taking eszopiclone 3 mg oral tablet (20 sources) Start: End: take 1 tablet by mouth once daily at bedtime Eszopiclone (Lunesta) 3 mg tablet Discontinued 3 MG PO Daily at bedtime April 20, 2024 11:00pm July 15, 2024 10:01am take 1 tablet by mouth once alannah y eszopiclone 2 MG tablet Take 1 tablet by mouth daily. 0 Active fluconazole 150 mg oral tablet (2 sources) Azole Antifungal Start: 02-11-2024 End: 04-21-2024 Fluconazole 150 mg tablet Discontinued 150 MG PO Q3D 2 0 February 10, 2024 11:00pm April 21, 2024 9:45am Take 1st dose at onset of symptoms then repeat in 3 days if continued symptoms fluticasone propionate 0.05 mg/actuat metered dose nasal spray (4 sources) Corticosteroid Start: 02-18-2024 End: 07-17-2024 take 1 spray(s) nasal route once daily Fluticasone Propionate (Flonase Allergy Relief) 50 mcg/actuation spray,suspension Discontinued 1 SPRAY INTRANASAL Daily February 17, 2024 11:00pm July 17, 2024 2:33pm administer into each nostril Start: 02-11-2024 End: 02-18-2024 take 1 spray(s) nasal route twice daily Fluticasone Propionate (Flonase Allergy Relief) 50 mcg/actuation spray,suspension Discontinued 1 SPRAY INTRANASAL Twice daily February 10, 2024 11:00pm February 18, 2024 9:32am administer into each nostril levothyroxine sodium 0.1 mg oral tablet (20 sources) l-Thyroxine Start: 03-24-2024 End: 09-30-2024 take 1 tablet by mouth once daily Levothyroxine 100 mcg tablet Discontinued 0 .ROUTE .COMPLEX May 15, 2024 1:39pm September 30, 2024 12:56pm TAKE 1 TABLET BY MOUTH DAILY Start: 03-07-2024 End: 03-24-2024 Levothyroxine 112 mcg tablet Discontinued 0 .ROUTE .COMPLEX March 20, 2024 10:19am March 24, 2024 11:44am TAKE 1 TABLET ONCE DAILY Start: 02-18-2024 End: 03-07-2024 take 1 tablet by mouth once daily Levothyroxine 100 mcg tablet Discontinued 100 MCG PO Daily February 17, 2024 11:00pm March 07, 2024 10:04am Start: 10-02-2022 End: 02-18-2024 take 1 tablet by mouth once daily Levothyroxine 112 mcg tablet Discontinued 1 TAB PO Daily October 24, 2023 12:00am February 18, 2024 9:30am FreeTextSi tablet Orally Once a day; Note: Source Status: Taking; Refills: 3; Qty: 90 Tablet; Provider: Lindsay Conti take 1 tablet by william every twenty-four hours Levothyroxine Sodium 112 MCG 1 tablet Orally Once a day for 90 days Active 10 ml lidocaine hydrochloride 10 mg/ml injection [...] as needed Externally Once a day Active loratadine 10 mg oral tablet (2 sources) Start: 02-18-2024 End: 02-18-2024 take 1 tablet by mouth once daily Loratadine (Claritin) 10 mg tablet Discontinued 10 MG PO Daily February 17, 2024 11:00pm February 18, 2024 9:38am Magnesium (20 sources) Start: 04-21-2024 End: 09-30-2024 take 2 tablets by mouth once daily Magnesium 250 mg tablet Discontinued 500 MG PO Daily April 20, 2024 11:00pm September 30, 2024 1:56pm Magnesium Active mesalamine 1200 mg delayed release oral tablet (20 sources) Aminosalicylate Start: 04-21-2024 End: 07-29-2024 take 1 tablet by mouth once daily Mesalamine 1.2 gram tablet,delayed release (DR/EC) Discontinued 1.2 GM PO Daily April 20, 2024 11:00pm July 29, 2024 9:37am Start: 01-18-2023 take 4 tablets by mo [facility] every twenty-four hours Mesalamine 1.2 GM [...] mg oral tablet (20 sources) Biguanide Start: 03-07-2024 End: 08-19-2024 Metformin 1,000 mg tablet Discontinued 0 .ROUTE .COMPLEX 180 March 20, 2024 10:19am August 19, 2024 8:28am TAKE 1 TABLET TWICE DAILY WITH MEALS Start: 08-29-2022 End: 03-07-2024 take 1 tablet by mouth twice daily Metformin 1,000 mg tablet Discontinued 1 TAB PO Twice daily October 24, 2023 12:00am March 07, 2024 10:04am FreeTextSi tablet with a meal Orally TWICE A DAY; Note: Source Status: Taking; Refills: 3; Qty: 180 Tablet; Provider: Lindsay Conti methylPREDNISolone 4 mg oral tablet (8 sources) Corticosteroid Start: 01-23-2024 End: 02-11-2024 take 1 tablet by mouth once Methylprednisolone (Medrol (Marc)) 4 mg tablets,dose pack Discontinued 0 PO per package directions 21 6 January 22, 2024 11:00pm February 11, 2024 10:36am PO PER PKG DIR Start: 08-09-2023 methylPREDNIso lone 4 MG Tab Therapy Pack tablet Take 1 tablet by mouth As directed. follow package directions 21 tablet 08/09/2023 Active Methylprednisolone 4 mg tablets,dose pack (2 sources) Start: 08-29-2024 End: 09-30-2024 Methylprednisolone 4 mg tablets,dose pack Discontinued 4 MG PO August 29, 2024 12:00am September 30, 2024 1:56pm montelukast 10 mg oral tablet (6 sources) Leukotriene Receptor Antagonist Start: 03-17-2024 End: 04-21-2024 take 1 tablet by mouth once daily at bedtime Montelukast 10 mg tablet Discontinued 0 .ROUTE .COMPLEX March 20, 2024 10:19am April 21, 2024 9:44am TAKE 1 TABLET BY MOUTH EVERY NIGHT AT BEDTIME Start: 02-18-2024 End: 03-17-2024 take 1 tablet by mouth once daily at bedtime Montelukast (Singulair) 10 mg tablet Discontinued 10 MG PO Daily at bedtime February 17, 2024 11:00pm March 17, 2024 9:25am omeprazole 20 mg delayed release oral capsule (20 sources) Proton Pump Inhibitor Start: 10-24-2023 End: 09-30-2024 take 1 capsule by mouth once daily Omeprazole 20 mg capsule,delayed release(DR/EC) Discontinued 20 MG PO Daily April 20, 2024 11:00pm September 30, 2024 1:57pm Omeprazole [address] tablet Take by mouth daily. Active take 1 capsule by mouth once jomar ly Omeprazole 10 MG 1 capsule 30 minutes before morning meal Orally Once a day Active QUEtiapine 50 mg oral tablet (5 sources) Atypical Antipsychotic take 1 tablet by mouth every twenty-four hours SEROquel 50 MG 1 tablet Orally Once a day for 30 day(s) Not-Taking simethicone 125 mg oral capsule (2 sources) Start: 04-21-20 End: 09-30-19 take 1 capsule by mouth three times daily Simethicone (Gas Relief (Simethicone)) 125 mg capsule Discontinued 125 MG PO Three times daily April 20, 2024 11:00pm September 30, 2024 1:57pm Tramadol (20 sources) Opioid Agonist Start: 04-21-20 End: 09-30-19 25 take 2 tablets by mouth twice daily as needed Tramadol 25 mg tablet Discontinued 50 MG PO Twice daily as needed April 20, 2024 11:00pm September 30, 2024 1:58pm Start: 10-24-2023 End: 03-20-2024 take 1 tablet by mouth twice daily Tramadol 50 mg tablet Discontinued 50 MG PO Twice daily October 24, 2023 12:00am March 20, 2024 10:19am [employer] tablet twice a day; Note: Source Status: Taking; Provider: Lindsay Cm ( ) Start: 02-16-2023 take 1 tablet by william every six hours as needed for pain traMADol 50 MG tablet Indications: Acute postoperative pain of knee 1 tabs po q 6 hr PRN pain 20 tablet 02/16/2023 Active traMADol HCl Act ag 1 ml triamcinolone acetonide 40 mg/ml injection (4 sources) Corticosteroid Start: 02-21-2024 End: 02-21-2024 triamcinolone (KENALOG-40) injection 1 mL Start: 02-21-2024 End: 02-21-2024 1 mL, Intra-articular, ONCE NEEDED, 1 dose, Starting on Marleny 02/21/24 at 1310, Until Marleny 02/21/24 at 1310 Start: 11-30-2022 End: 11-30-2022 triamcinolone (KENALOG-40) i njection 1 mL Zinc (20 sources) Start: 04-21-2024 End: 09-30-2024 Zinc 50 mg Discontinued PO D aily April 20, 2024 11:00pm September 30, 2024 1:58pm Zinc 50 MG capsu le Take by mouth daily. Active Zinc 50 MG capsu le Take by mouth daily. 0 Active Zinc Active Zinc 50 MG capsu le Take by mouth. 0 Active Problems Active Problems Problem Classification Problem Date Documented Da te Episodic/Chronic Abdominal pain (20 sources) Abdominal pain; Translations: [Unspecified abdominal pain] Onset: Episodic Acquired foot deformities (20 sources) Acquired [...] anxiety disorder; Translations: [Generalized anxiety disorder] Chronic Chronic obstructive pulmonary disease and bronchiectasis (2 sources) Bronchitis; Translations: [Bronchitis, not specified as acute or chronic] 01-23-2024 Episodic Complication of device; implant or graft (20 sources) Broken internal joint prosthesis, unspecified site, subsequent encounter; Translations: [Joint pain] Episodic Complications of surgical procedures or medical care (4 sources) Complication of ventilation therapy 05-07-2024 Episodic Diabetes mellitus with complications (20 sources) Hyperglycemia due to type 2 diabetes mellitus; Translations: [Type 2 diabetes mellitus with hyperglycemia] Onset: 2 Chronic Diabetes mellitus without complication (16 sources) Type 2 diabetes mellitus without complication; Translations: [Type 2 diabetes mellitus without complications] Onset: 1 01-24-2023 Chronic Disorders of lipid metabolism (20 sources) Mixed hyperlipidemia; Translations: [Mixed hyperlipidemia] Onset: 9 Chronic Diverticulosis and diverticulitis (20 sources) Diverticular disease of colon; Translations: [Diverticulosis of intestine, part unspecified, without perforation or abscess without bleeding] Chronic E Codes: Natural/environment (20 sources) Tick bite; Translations: [Bitten or stung by nonvenomous insect and other nonvenomous arthropods, initial encounter] Onset: 2 Episodic Esophageal disorders (6 sources) Gastroesophageal reflux disease; Translations: [Gastro-esophageal reflux disease without esophagitis] 08-29-2024 Chronic Gastroduodenal ulcer (except hemorrhage) (18 sources) Peptic [...] 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 valve disorder, unspecified] Onset: 1 01-24-2023 Chronic Hemorrhoids (20 sources) Residual hemorrhoidal skin tags; Translations: [Residual hemorrhoidal skin tags] Onset: 0 Episodic Immunizations and screening for infectious disease (6 sources) Other specified abnormal immunological findings in serum; Translations: [Raised antibody titer] Onset: 3 Episodic Inflammatory diseases of female pelvic organs (2 sources) Vaginitis; Translations: [Acute vaginitis] 02-12-2024 Episodic Joint disorders and dislocations; trauma-related (20 sources) Derangement of knee; Translations: [Unspecified internal derangement of left knee] Onset: 8 01-30-2023 Chronic Joint disorders and dislocations; trauma-related (7 sources) Derangement of knee; Translations: [Unspecified internal derangement of right knee] Chronic Joint disorders and dislocations; trauma-related (18 sources) Dislocation of toe joint; Translations: [Unspecified dislocation of left toe(s), subsequent encounter] Episodic Malaise and fatigue (20 sources) Fatigue; Translations: [Other fatigue] Onset: 2 Episodic Meningitis (except that caused by tuberculosis or sexually transmitted disease) (18 sources) Meningitis; Translations: [Meningitis, unspecified] Episodic Miscellaneous mental health disorders (4 sources) Chronic insomnia; Translations: [Psychophysiologic insomnia] 05-07-2024 Chronic Mood disorders (13 sources) Dysthymia; Translations: [Dysthymic disorder] Onset: 8 05-07-2024 Chronic Mycoses (20 sources) Candidiasis; Translations: [Candidiasis, unspecified] Onset: 3 Episodic Nausea and vomiting (7 sources) Nausea; Translations: [Nausea] Onset: 4 08-29-2024 Episodic Nutritional deficiencies (20 sources) Vitamin D deficiency; Translations: [Vitamin D deficiency, unspecified] Chronic Nutritional deficiencies (4 sources) Cobalamin deficiency; Translations: [Deficiency of other specified B group vitamins] 07-17-2024 Episodic Osteoarthritis (20 sources) Osteoarthritis; Translations: [Unspecified osteoarthritis, unspecified site] Onset: 2 Chronic Other acquired deformities (7 sources) 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; Translations: [Contracture, right ankle] Chronic Other aftercare (1 source) Other mcfp (current) drug therapy; Translations: [OTH DUPLEX TRIMMER CURRENT DRUG THERAPY] Onset: 3 Episodic Other connective tissue disease (3 sources) History of left total knee replacement; Translations: [Presence of left artificial knee joint] 02-20-2023 Chronic Other connective tissue disease (3 sources) Presence of left artificial knee joint; Translations: [Presence of left artificial knee joint] Onset: 4 Chronic Other connective tissue disease (20 sources) [...] foot; Translations: [Pain in right foot] Onset: 2 Episodic Other connective tissue disease (18 sources) Plantar fasciitis of right foot; Translations: [Plantar fascial fibromatosis] Episodic Other connective tissue disease (3 sources) Fibromyalgia; Translations: [FIBROMYALGIA] Onset: 3 Episodic Other connective tissue disease (7 sources) [...] specified disorders of kidney and ureter] Onset: 9 Chronic Other gastrointestinal disorders (2 sources) Irritable bowel syndrome; Translations: [Mixed irritable bowel syndrome] 08-29-2024 Chronic Other gastrointestinal disorders (4 sources) Mixed irritable bowel syndrome; Translations: [Irritable bowel syndrome] 08-29-2024 Chronic Other gastrointestinal disorders (20 sources) Diarrhea; Translations: [Diarrhea, unspecified] Episodic Other gastrointestinal disorders (8 sources) Other specified symptoms and signs involving the digestive system and abdomen; Translations: [OTH SPEC SX SIGNS DIGESTV SYS ABD] Onset: 3 Episodic Other gastrointestinal disorders (5 sources) Diarrhea, unspecified; Translations: [DIARRHEA UNSPECIFIED] Onset: 2 Episodic Other gastrointestinal disorders (2 sources) Constipation alternates with diarrhea; Translations: [Other specified symptoms and signs involving the digestive system and abdomen] 01-16-2024 Episodic Other gastrointestinal disorders (2 sources) History of pancreatitis; Translations: [Personal history of other diseases of the digestive system] 08-29-2024 Episodic Other gastrointestinal disorders (4 sources) Abdominal bloating; Translations: [Abdominal distension (gaseous)] 04-21-2024 Episodic Other gastrointestinal disorders (5 sources) Abdominal distension (gaseous); Translations: [Flatulence, eructation, and gas pain] Onset: 4 08-29-2024 Episodic Other gastrointestinal disorders (2 sources) Personal history of other diseases of the digestive system; Translations: [Personal history of other diseases of digestive system] 08-29-2024 Episodic Other gastrointestinal disorders (1 source) Full incontinence of feces; Translations: [Full incontinence of feces] Onset: 5 Episodic Other hereditary and degenerative nervous system conditions (2 sources) Restless legs; Translations: [Restless legs syndrome] 05-07-2024 Chronic Other hereditary and degenerative nervous system conditions (2 sources) Restless legs syndrome; Translations: [Restless legs syndrome (RLS)] 07-17-2024 Chronic Other infections; including parasitic (7 sources) H/O: [...] LAT POP NERVE LT LOWER LIMB] Onset: 2 Chronic Other nervous system disorders (1 source) Lesion of lateral popliteal nerve, unspecified lower limb; Translations: [LESION LAT POP NERVE UNS LOWER LIMB] Onset: 2 Chronic Other nervous system disorders (2 sources) [...] sources) Obesity; Translations: [Obesity, unspecified] Chronic Other nutritional; endocrine; and metabolic disorders (2 sources) Body mass index 30+ - obesity; Translations: [Body mass index (BMI) 34.0-34.9, adult] 05-07-2024 Chronic Other nutritional; endocrine; and metabolic disorders (2 sources) Hypocalcemia; Translations: [Hypocalcemia] 07-17-2024 Chronic Other upper respiratory disease (2 sources) Nasal congestion; Translations: [Nasal congestion] 02-11-2024 Episodic Other upper respiratory infections (9 sources) Chronic sinusitis; Translations: [Chronic sinusitis, unspecified] 01-23-2024 Chronic Other upper respiratory infections (16 sources) Acute maxillary sinusitis; Translations: [Acute recurrent maxillary sinusitis] Onset: 8 12-13-2023 Episodic Pancreatic disorders (not diabetes) (2 sources) Chronic pancreatitis; Translations: [Other chronic pancreatitis] Chronic Pancreatic disorders (not diabetes) (5 sources) Other specified diseases of pancreas; Translations: [Pancreatic insufficiency] Episodic Prolapse of female genital organs (20 sources) Uterine prolapse; Translations: [Uterovaginal prolapse, unspecified] Onset: 0 Chronic Residual codes; unclassified (1 source) Presence of functional implant, unspecified; Translations: [PRESENCE FUNCTIONAL IMPLANT UNS] Onset: 2 Chronic Residual codes; unclassified (7 sources) Sleep dysfunction with sleep stage disturbance; Translations: [Other sleep disorders] Onset: 3 01-24-2023 Chronic Residual codes; unclassified (9 sources) Obstructive sleep apnea syndrome; Translations: [Obstructive sleep apnea] Onset: 8 02-18-2024 Chronic Residual codes; unclassified (2 sources) Daytime somnolence; Translations: [Other hypersomnia] 05-07-2024 Chronic Residual codes; unclassified (2 sources) Other hypersomnia; Translations: [Hypersomnia, unspecified] 07-17-2024 Chronic Residual codes; unclassified (2 sources) Obstructive sleep apnea (adult) (pediatric); Translations: [Obstructive sleep apnea (adult)(pediatric)] 07-17-2024 Chronic Residual codes; unclassified (20 sources) Reduced [...] cervical disc degeneration, unspecified cervical region] Onset: 2 Chronic Spondylosis; intervertebral disc disorders; other back problems (20 sources) Neck pain; Translations: [Cervicalgia] Onset: 8 Episodic Substance-related disorders (4 sources) Hypnotic dependence; Translations: [Sedative, hypnotic or anxiolytic dependence, uncomplicated] 05-07-2024 Chronic Systemic lupus erythematosus and connective tissue disorders (7 sources) Autoimmune disease; Translations: [Autoimmune disease, not elsewhere classified] Onset: 8 Chronic Thyroid disorders (20 sources) Non-toxic uninodular goiter; Translations: [Nontoxic single thyroid nodule] Onset: 8 Chronic Past or Other Problems Problem Classification Problem Date Documented Date Episodic/Chronic Bacterial infection; unspecified site (7 sources) [...] limb, excluding foot] Onset: 12-26-2023 Episodic Other infections; including parasitic (20 sources) [...] Test Name Value Interpretation Reference Range Facility Campy coli+jejuni BD MaxOrde red By: Jb Grady on 09-30-2024 C. coli+jejuni tuf gene DAISY+probe Ql (Stl) Campy coli+jejuni BD Max Negative [facility] Comment on above: Campylobacter test i ncludes C. jejuni and C. coli. Clostridioides difficile tox in B tcdB gene [Presence] in Stool by DAISY with probe deteOrdered By: Jb Grady on 09-30-2024 C. difficile toxin B tcdB gene DAISY+probe Ql (Stl) Clostridioides difficile toxin B tcdB gene [Presence] in Stool by DAISY with probe dete Negative [facility] Comment on above: Testing performed by RT-PCR Clostridium Difficileon 09-11 Clostridium Difficile Negative Normal Negative [facility] Comment on above: Result Comment: Test ing performed by RT-PCR PERFORMED BY: [place] [address] PATHOLOGIST LAB SUPPORT TECH BENNY ARAUJO M.D. Performed By: #### S TCYRPTOAG, GIARDIA #### [facility] , #### CDT, ENT BACT PANEL #### [facility] [address] [place] [address] Cryptosporidium Antigen Stoo kristofer 09-30-2024 Cryptosporidium Antigen Stool Negative Normal Negative [facility] Comment on above: Order Comment: SOURC E OF SPECIMEN: STOOL Performed By: #### S TCYRPTOAG, GIARDIA #### [facility] , #### CDT, ENT BACT PANEL #### [place] [address] [place] Cryptosporidium sp Ag [Prese nce] in Stool by ImmunoassayOrdered By: Jb Grady on 09-30-2024 Cryptosporidium sp Ag IA Ql (Stl) Cryptosporidium sp Ag [Presence] in Stool by Immunoassay Negative [facility] Giardia Lamblia Ag EIA Stool on 09-30-2024 Giardia Lamblia Ag EIA Stool Negative Normal Negative [facility] Comment on above: Order Comment: SOURC E OF SPECIMEN: STOOL Result Comment: Perf ormed at: - [facility] [address] [id number] Assessment Clinician: Tra Bay PhD, Phone: [phone] PERFORMED BY: [place] [address] PATHOLOGIST LAB SUPPORT TECH BENNY ARAUJO M.D. Performed By: #### S TCYRPTOAG, GIARDIA #### [facility] , #### CDT, ENT BACT PANEL #### [address] Giardia lamblia Ag [Presence ] in Stool by ImmunoassayOrdered By: Jb Grady on 09-30-2024 G. lamblia Ag IA Ql (Stl) Giardia lamblia Ag [Presence] in Stool by Immunoassay Negative [facility] Comment on above: Performed at: - [facility] [address] [id number] Director: Tra Bay PhD, Phone: [phone] Salmonellosis BD MaxOrdered By: Jb Grady on 09-30-2024 Salmonella sp spaO gene DAISY+probe Ql (Stl) Salmonella sp spaO gene [Presence] in Stool by DAISY with probe detection Negative [facility] Comment on above: Testing performed by RT-PCR Shigella Tox 1+2 BD MaxOrder ed By: Jb Grady on 09-30-2024 E. coli stx1+stx2 genes DAISY+probe Ql (Stl) Escherichia coli Stx1 and Stx2 toxin stx1+stx2 genes [Presence] in Stool by DAISY with Negative [facility] Shigellosis BD MaxOrdered By : Jb Grady on 09-30-2024 Shigella species+EIEC invasion plasmid antigen H ipaH gene DAISY+probe Ql (Stl) Shigella species+EIEC invasion plasmid antigen H ipaH gene [Presence] in Stool by DAISY Negative [facility] Comment on above: Shigella sp. test in cludes Shigella species and Enteroinvasive E. coli (EIEC). Stool Bacterial Panelon 09-11 Campylobacter Negative Normal Negative [facility] Comment on above: Result Comment: Camp ylobacter test includes C. jejuni and C. coli. Performed By: #### S TCYRPTOAG, GIARDIA #### [facility] , #### CDT, ENT BACT PANEL #### [address] Salmonella Species Negative Normal Negative [facility] Comment on above: Result Comment: Test ing performed by RT-PCR PERFORMED BY: [place] [address] PATHOLOGIST LAB SUPPORT TECH BENNY ARAUJO M.D. Performed By: #### S TCYRPTOAG, GIARDIA #### [facility] , #### CDT, ENT BACT PANEL #### [address] Shiga Toxin (E coli O157+oth) Negative Normal Negative [facility] Comment on above: Performed By: #### S TCYRPTOAG, GIARDIA #### [facility] , #### CDT, ENT BACT PANEL #### [address] Shigella Species Negative Normal Negative [facility] Comment on above: Result Comment: Shig brandy sp. test includes Shigella species and Enteroinvasive E. coli (EIEC). Performed By: #### S TCYRPTOAG, GIARDIA #### [facility] , #### CDT, ENT BACT PANEL #### [address] 36on 09-18-2024 36 LVM for pt to call clinic to schedule consult with Dr. Leavitt for Surgical intervention vs SCS. Please let proposal lead writer or Nayana Crenshaw MA know when scheduled so we may notify [employer] reps. 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 NO ACUTE PROCESS. Impression dictated by: Bar Sims Jr., D.O.08/29/2024 3:27 PM Dictation Location: [facility]- Transcribed By: [facility] 08/29/24 1527 Dictated By: Bar Sims Jr, DO 08/29/24 1526 Signed By: 08/29/24 1527 Normal [facility] HbA1c HPLC (Bld) [Mass fract ion]on 07-29-2024 HbA1c (Bld) [Mass fraction] Hemoglobin A1c/Hemoglobin.total in Blood by HPLC [facility] Estimated glomerular filtrat ion rate (GFR) non- Americanon 07-17-2024 GFR/1.73 sq M.predicted among non-blacks MDRD (S/P/Bld) [Vol rate/Area] Estimated glomerular filtration rate (GFR) non- >=60 mL/min/1.73m 2 [facility] Globulin Calc (S) [Mass/Vol] on 07-17-2024 Globulin (S) [Mass/Vol] Serum globulin measurement by calculation (mass/volume) [facility] Iron binding capacity [Mass/ volume] in Serum or Plasmaon 07-17-2024 Iron binding capacity [Mass/Vol] Iron binding capacity [Mass/volume] in Serum or Plasma 250.0-450.0 [facility] Iron saturation [Mass Fracti on] in Serum or Plasmaon 07-17-2024 Iron saturation [Mass fraction] Iron saturation [Mass Fraction] in Serum or Plasma [facility] Laboratory - Chemistry and C hemistry - challengeon 07-17-2024 Albumin [Mass/Vol] 3.8 g/dL 3.4-5.0 [facility] ALP [Catalytic activity/Vol] 81 U/L 46-116 [facility] ALT [Catalytic activity/Vol] 21 U/L 14-59 [facility] AST [Catalytic activity/Vol] 18 U/L 15-37 [facility] Bilirubin [Mass/Vol] 0.4 mg/dL 0.2-1.0 [facility] Calcium [Mass/Vol] 9.2 mg/dL 8.5-10.1 [facility] Chloride [Moles/Vol] 105 mmol/L 98-107 [facility] CO2 [Moles/Vol] 24.1 mmol/L 21.0-32.0 [facility] Cobalamin (Vitamin B12) [Mass/Vol] 887 pg/mL 232-1245 [facility] Comment on above: Performed at: [address] [id number] Director: Tra Bay PhD, Phone: [phone] Creatinine [Mass/Vol] 0.84 mg/dL 0.55-1.02 [facility] Ferritin [Mass/Vol] 63.0 ng/mL 8.0-252.0 [facility] Free T4 [Mass/Vol] 1.23 ng/dL 0.76-1.46 [facility] GFR/1.73 sq M.predicted MDRD (S/P/Bld) [Vol rate/Area] mL/min/{1.73_m2} >=60 mL/min/1.73m 2 [facility] Glucose [Mass/Vol] 150 mg/dL High 74-106 [facility] Iron [Mass/Vol] 63.0 ug/dL 50.0-170.0 [facility] Potassium [Moles/Vol] 4.2 mmol/L 3.5-5.1 [facility] Protein [Mass/Vol] 7.1 g/dL 6.4-8.2 [facility] Sodium [Moles/Vol] 141 mmol/L 136-145 [facility] TSH Qn 0.749 m[IU]/L 0.358-3.740 [facility] Urea nitrogen [Mass/Vol] 21.0 mg/dL High 7.0-18.0 [facility] Urea nitrogen/Creatinine [Mass ratio] 25.0 mg/mg [facility] No Panel Informationon 07-17 25-Hydroxy Vitamin D Total 80.1 ng/mL [facility] Comment on above: <20 ng/mL Vit D defi cient20-<30 ng/mL Vit D [id number] ng/mL Vit D sufficient>100 ng/mL Potential Toxicity Serum or plasma albumin/glob ulin mass ratioon 07-17-2024 Albumin/Globulin [Mass ratio] Serum or plasma albumin/globulin mass ratio [facility] Serum or plasma anion gap de terminationon 07-17-2024 Anion gap [Moles/Vol] Serum or plasma an ion gap determination [facility] No Panel Informationon 02-26 Radiology Study observation (narrative) [facility] LARGE JOINT/BURSA INJECTION AND/OR ASPIRATION: L kneeon 02-21-2024 Sagar Krause MD 02/27/2024 1:38 PM LARGE JOINT/BURSA INJECTION AND/OR ASPIRATION: L knee Date/Time: 02/21/2024 1:10 PM Performed by: Sagar Krause MD Authorized by: Sagar Karuse MD Supporting Documentation Indications: pain Procedure Details: [...] complications The patient was prepped with Chloraprep. [facility] Sagar Krause MD 02/27/2024 1:38 PM LARGE [...] MG/ML The patient was prepped with Betadine. [facility] No Panel Informationon 02-20 [facility] Podiatry Office/Clinic Noteo n 01-18-2024 Podiatry Office/Clinic [...] remember. Patient relates that they have tried [id number] pain relievers, padding, and modification of shoe [...] out of 10 sites as measured with [place] French monofilament bilateral, otherwise intact Gross motor [...] deep perone (more content not included)... Normal [facility] [place] Guidance/Localizationon 0 01-18-2024 [place] Guidance/Localization EXAM: Limited Diagnostic Musculoskeletal Ultrasound [with Ultrasound-Guided Injection of left superficial peroneal nerve at the anterior lateral ankle] CLINICAL HISTORY: Patient has concern for multiple peripheral nerve entrapments. History of left first metatarsophalangeal joint fusion with 3D implant TECHNIQUE: Musculoskeletal Ultrasound with [employer] Next Gen unit with [12 MHz][L10-22] [...] Electronically Signed in Other Vendor System) Normal [facility] Podiatry Office/Clinic Noteo n 12-20-2023 Podiatry Office/Clinic [...] out of 10 sites as measured with [place] French monofilament bilateral, otherwise intact Gross motor [...] and barby (more content not included)... Normal [facility] US Guidance/Localizationon 0 12-20-2023 [place] Guidance/Localization EXAM: Limited Diagnostic Musculoskeletal Ultrasound [with Ultrasound-Guided Injection of left saphenous nerve] CLINICAL HISTORY: Patient has concern for multiple peripheral nerve entrapments. History of left first metatarsophalangeal joint fusion with 3D implant TECHNIQUE: Musculoskeletal Ultrasound with TranscribeMe e Next Gen unit with [12 MHz][L10-22] [...] Electronically Signed in Other Vendor System) Normal [facility] XR Ankle 3 Views Bilateralon 12-20-2023 XR [...] Electronically Signed in Other Vendor System) Normal [facility] XR Foot 3 Views Bilateralon 12-20-2023 XR [...] Electronically Signed in Other Vendor System) Normal [facility] Glucose Glucometer (BldC) [M ass/Vol]Ordered By: Siva Ron on 05-09-2023 Glucose [Mass/Vol] 136 mg/dL [facility] Comment on above: Random Glucose Refer ence Range is dependent on time and content of last meal. Glucose of more than 200 mg/dL in a nonstressed, ambulatory subject supports the diagnosis of Diabetes Mellitus. No Panel InformationOrdered By: Siva Ron on 05-09-2023 Bedside Glucose Comment Glu2: cleaned meter [facility] PANCREATIC ELASTASE FECALon 01-22-2023 Pancreatic Elastase, Fecal 128 ug Elast./g Critically low >200 [facility] Comment on above: Result Comment: Jihan re Pancreatic Insufficiency: <100 Moderate Pancreatic Insufficiency: 100 - 200 Normal: >200 Performed By: #### H PYLORI #### [facility] [address] [address] [address] Irene Cedillo LACTOFERRIN FECAL QUANTon Lactoferrin, Fecal, Quant. <1.00 Normal 0.00-7.24 [facility] Comment on above: Result Comment: Re sults [...] (IBS). Performed By: #### S EDR #### [facility] [address] [address] [address] Irene Cedillo CALPROTECTIN, FECALon 2022 Calprotectin, Fecal 139 ug/g Critically high 0-120 [facility] Comment on above: Result Comment: Conc entration Interpretation Follow-Up <16 - 50 ug/g Normal None >50 -120 ug/g Borderline Re-evaluate in 4-6 weeks >120 ug/g Abnormal Repeat as clinically indicated Performed By: #### H PYLORI #### [facility] [address] [place] [address] Dr. Irene Cedillo PANCREATIC ELASTASE FECALon 01-15-2023 Pancreatic Elastase, Fecal 161 ug Elast./g Critically low >200 [facility] Comment on above: Result Comment: Jihan re Pancreatic Insufficiency: <100 Moderate Pancreatic Insufficiency: 100 - 200 Normal: >200 Performed By: #### A NTI-NICOLLE #### [facility] [address] [address] [address] Irene Cedillo TSHon 01-09-2023 TSH 1.630 uIU/mL Normal 0.358-3.740 [facility] Comment on above: Performed By: #### T SH #### [facility] [address] [place] [address] Dr. Irene Cedillo ANTIHISTIONE ANTIBODIESon Anti-histone Abs 0.5 Units Normal 0.0-0.9 [facility] Comment on above: Result Comment: Nega tive <1.0 Weak Positive 1.0 - 1.5 Moderate Positive 1.6 - 2.5 Strong Positive >2.5 Performed By: #### C K, CRP #### [facility] [address] [place] [address] Dr. Irene Cedillo LARGE JOINT/BURSA INJECTION AND/OR [...] complications The patient was prepped with Betadine. [facility] Radiology Study observation (narrative) [facility] US PELVIS AND TRANSVAGon US PELVIS AND TRANSVAG EXAM: US PELVIS AND TRANSVAG HISTORY: Left lower quadrant pain COMPARISON: None. TECHNIQUE: Pelvic sonography was performed utilizing grayscale and color Doppler technique. FINDINGS/ IMPRESSION: 1. Hysterectomy. 2. Ovaries not visualized. 3. No adnexal mass. 4. No significant free fluid. Electronically authenticated by: BRI BERGER Date: 2022-11-10 15:54 Normal [facility] LUPUS ANTICOAGULANT PROFILEo n 10-27-2022 Anticardiolipin Ab, IgG <10 Normal [facility] Comment on above: Result Comment: Refe rence Range: Negative: <15 Indeterminate: 15 - 20 Low to medium positive: >20 - 80 High positive: >80 Performed By: #### L UPUSAC #### [facility] [address] [address] [address] Irene Cedillo Anticardiolipin Ab, IgM <10 Normal [facility] Comment on above: Result Comment: Refe rence Range: Negative: <13 Indeterminate: 13 - 20 Low to medium positive: >20 - 80 High positive: >80 Performed By: #### L UPUSAC #### [facility] [address] [address] [address] Irene Cedillo APTT 1:1 SERVICES REP NIY Normal [facility] Comment on above: Result Comment: Test ing Not Indicated This test was developed and its performance characteristics determined by [facility]. It has not been cleared or approved by the Food and Drug Administration. Performed By: #### L UPUSAC #### [facility] [address] [place] [address] Dr. Irene Cedillo APTT 1:1 Saline NIY Normal [facility] Comment on above: Result Comment: Test ing Not Indicated This test was developed and its performance characteristics determined by [facility]. It has not been cleared or approved by the [place] Food and Drug Administration. Performed By: #### L UPUSAC #### [facility] [address] [address] [address] Irene Cedillo aPTT Coag (Bld) [Time] 23.0 s Normal [facility] Comment on above: Result Comment: This test has not been validated for monitoring unfractionated heparin therapy. aPTT-based therapeutic ranges for unfractionated heparin therapy have not been established. Consider ordering Heparin anti-Xa (unfractionated). Reference Range: 18 years and older: 22.9 - 30.2 Performed By: #### L UPUSAC #### [facility] [address] [place] [address] Dr. Irene Cedillo Beta-2 Glycoprotein I, IgA <10 Normal [facility] Comment on above: Result Comment: The reference interval reflects a 3SD or 99th percentile interval. Reference Range: Negative: <26 Performed By: #### L UPUSAC #### [facility] [address] [place] [address] Dr. Irene Cedillo Beta-2 Glycoprotein I, IgG <10 Normal [facility] Comment on above: Result Comment: The reference interval reflects a 3SD or 99th percentile interval. Reference Range: Negative: <21 Performed By: #### L UPUSAC #### [facility] [address] [place] [address] Dr. Irene Cedillo Beta-2 Glycoprotein I, IgM <10 Normal [facility] Comment on above: Result Comment: The reference interval reflects a 3SD or 99th percentile interval. Reference Range: Negative: <33 Performed By: #### L UPUSAC #### [facility] [address] [address] [address] Irene Cedillo DRVVT Confirm Seconds NIY Normal [facility] Comment on above: Result Comment: Test ing Not Indicated Performed By: #### L UPUSAC #### [facility] [address] [place] [address] Dr. Irene Cedillo DRVVT Ratio NIY Normal [facility] Comment on above: Result Comment: Test ing Not Indicated Performed By: #### L UPUSAC #### [facility] [address] [address] [address] Irene Cedillo DRVVT Screen Seconds 33.2 sec Normal [facility] Comment on above: Result Comment: Refe rence Range: <= 47.0 Performed By: #### L UPUSAC #### [facility] [address] [place] [address] Dr. Irene Cedillo Hexagonal Phospholipid Neutral 0 sec Normal [facility] Comment on above: Result Comment: This value is NEGATIVE. This is a qualitative assay and is therefore reported as positive for lupus anticoagulant or negative. The quantitative value is provided as an aid in diagnosis. Reference Range: 0 - 11 Performed By: #### L UPUSAC #### [facility] [address] [place] [address] Dr. Irene Cedillo INR Coag (PPP) [Relative time] 0.9 {INR} Normal [facility] Comment on above: Result Comment: Refe rence Range: >1 month: 0.9 - 1.2 Performed By: #### L UPUSAC #### [facility] [address] [place] [address] Dr. Irene Cedillo LAC Interpretation Comment Normal [facility] Comment on above: Result Comment: A arelis pus anticoagulant is not detected. All antiphospholipid antibodies evaluated are normal. As antibody titers may fluctuate with time, repeat testing may be indicated. Please contact [facility] if further clarification is needed. Performed By: #### L UPUSAC #### [facility] [address] [place] [address] Dr. Irene Cedillo Platelet Neutralization 0.0 sec Normal [facility] Comment on above: Result Comment: Refe rence Range: 0.0 - 3.0 This test was developed and its performance characteristics determined by [facility]. It has not been cleared or approved by the Food and Drug Administration. Performed By: #### L UPUSAC #### [facility] [address] [place] [address] Dr. Irene Cedillo PT Coag (PPP) [Time] 10.0 s Normal [facility] Comment on above: Result Comment: Refe rence Range: 18 years and older: 9.1 - 12.0 Performed By: #### L UPUSAC #### [facility] [address] [place] [address] Dr. Irene Cedillo Thrombin Time 15.5 sec Normal [facility] Comment on above: Result Comment: Refe rence Range: 0.0 - 23.0 Performed By: #### L UPUSAC #### [facility] [address] [place] [address] Dr. Irene Cedillo ADRI by IFAon 10-23-2022 Antinuclear Antibodies, IFA Positive Abnormal [facility] Comment on above: Result Comment: Nega tive <1:80 Borderline 1:80 Positive >1:80 Performed By: #### T SH #### [facility] [address] [place] [address] Dr. Irene Cedillo Centriole Pattern Normal [facility] Comment on above: Performed By: #### T SH #### [facility] [address] [place] [address] Dr. Irene Cedillo Centromere Pattern Normal [facility] Comment on above: Performed By: #### T SH #### [facility] [address] [place] [address] Dr. Irene Cedillo Homogeneous Pattern 1:320 Critically high [facility] Comment on above: Result Comment: ICAP nomenclature: AC-1 Performed By: #### T SH #### [facility] [address] [place] [address] Dr. Irene Cedillo Midbody Pattern Normal [facility] Comment on above: Performed By: #### T SH #### [facility] [address] [place] [address] Dr. Irene Cedillo Note: Comment Normal [facility] Comment on above: Result Comment: For more [...] titers Nucleosomes, Histones Drug-induced SLE Speckled Sm, COOK PIE, SCL-70, SLE,MCTD,PSS (diffuse form), SS-A/SS-B Sjogrens Nucleolar SCL-70, PM-1/SCL High titers Scleroderma, PM/DM Centromere Centromere PSS (limited form) w/Crest syndrome variable Nuclear Dot [id number] Primary Biliary Cirrhosis Nuclear GP210, Primary Biliary Cirrhosis Membrane margie A,B,C Performed By: #### T SH #### [facility] [address] [place] [address] Dr. Irene Cedillo Nuclear Dot Pattern Normal [facility] Comment on above: Performed By: #### T SH #### [facility] [address] [place] [address] Dr. Irene Cedillo Nuclear Membrane Pattern Normal [facility] Comment on above: Performed By: #### T SH #### [facility] [address] [place] [address] Dr. Irene Cedillo Nucleolar Pattern Normal [facility] Comment on above: Performed By: #### T SH #### [facility] [address] [place] [address] Dr. Irene Cedillo PCNA Pattern Normal [facility] Comment on above: Performed By: #### T SH #### [facility] [address] [place] [address] Dr. Irene Cedillo Speckled Pattern Normal [facility] Comment on above: Performed By: #### T SH #### [facility] [address] [place] [address] Dr. Irene Cedillo Spindle Apparatus Pattern Normal [facility] Comment on above: Performed By: #### T SH #### [facility] [address] [place] [address] Dr. Irene Cdeillo ALDOLASEon 10-19-2022 Aldolase 3.6 U/L Normal 3.3-10.3 [facility] Comment on above: Performed By: #### T SH #### [facility] [address] [place] [address] Dr. Irene Cedillo ANTI-CENTROMERE B ABon 10-19 Anti-Centromere B Antibodies <0.2 Normal 0.0-0.9 [facility] Comment on above: Performed By: #### S EDR #### [facility] [address] [place] [address] Dr. Irene Cedillo ANTI-DNA DS ABon 10-19-2022 Anti-DNA (DS) Ab Qn 1 IU/mL Normal 0-9 [facility] Comment on above: Result Comment: Nega tive <5 Equivocal 5 - 9 Positive >9 Performed By: #### C CPAB #### [facility] [address] [place] [address] Dr. Irene Cedillo ANTI-NICOLLE-1on 10-19-2022 Anti-Nicolle-1 <0.2 Normal 0.0-0.9 [facility] Comment on above: Performed By: #### A NTI-NICOLLE #### [facility] [address] [place] [address] Dr. Irene Cedillo ANTICHROMATIN ANTIBODIESon 0 10-19-2022 Antichromatin Antibodies 0.5 AI Normal 0.0-0.9 [facility] Comment on above: Performed By: #### C K, CRP #### [facility] [address] [place] [address] Dr. Irene Cedillo ANTIEXTRACTABLE NUCLEAR ANTI BODIESon 10-19-2022 COOK PIE Antibodies <0.2 Normal 0.0-0.9 [facility] Comment on above: Performed By: #### H PYLORI #### [facility] [address] [place] [address] Dr. Irene Cedillo Performed By: #### C CPAB #### [facility] [address] [place] [address] Dr. Irene Cedillo Murray Antibodies <0.2 Normal 0.0-0.9 [facility] Comment on above: Performed By: #### H PYLORI #### [facility] [address] [place] [address] Dr. Irene Cedillo Performed By: #### C CPAB #### [facility] [address] [place] [address] Dr. Irene Cedillo ANTISCLERODERMA ABon 023 Antiscleroderma-70 Antibodies <0.2 Normal 0.0-0.9 [facility] Comment on above: Performed By: #### A NSCLER #### [facility] [address] [place] [address] Dr. Irene Cedillo C3 and C4 COMPLEMENTon 10-19 Complement C3, Serum 171 mg/dL Critically high 82-167 [facility] Comment on above: Performed By: #### H PYLORI #### [facility] [address] [place] [address] Dr. Irene Cedillo Complement C4, Serum 41 mg/dL Critically high 12-38 [facility] Comment on above: Performed By: #### H PYLORI #### [facility] [address] [place] [address] Dr. Irene Cedillo COMPLEMENT TOTAL (CH50)on Complement, Total (CH50) >60 Normal >41 [facility] Comment on above: Result Comment: Age Male [...] Performed By: #### C K, CRP #### [facility] [address] [place] [address] Dr. Irene Cedillo CYCLIC CITRULLINATED PEPTIDE AB (CCP)on 10-19-2022 CCP Antibodies IgG/IgA 3 units Normal 0-19 [facility] Comment on above: Result Comment: Nega tive <20 Weak positive 20 - 39 Moderate positive 40 - 59 Strong positive >59 Performed By: #### C CPAB #### [facility] [address] [place] [address] Dr. Irene Cedillo MITICHONDRIAL (M2) ANTIBODYo n 10-19-2022 Mitochondrial (M2) Antibody <20.0 Normal 0.0-20.0 [facility] Comment on above: Result Comment: Nega tive 0.0 - 20.0 Equivocal 20.1 - 24.9 Positive >24.9 . Mitochondrial (M2) Antibodies are found in 90-96% of patients with primary biliary cirrhosis. Performed By: #### C K, CRP #### [facility] [address] [place] [address] Dr. Irene Cedillo RHEUMATOID FACTORon 10-19-19 23 RA Latex Turbid. <10.0 Normal <14.0 [facility] Comment on above: Performed By: #### C CPAB #### [facility] [address] [place] [address] Dr. Irene Cedillo RPR QUANTon 10-19-2022 Rapid Plasma Reagin, Quant Non-Reactive Normal NonRea<1:1 [facility] Comment on above: Result Comment: Plea se Note: This test does not meet current guidelines for screening and diagnosis of syphilis. This test is intended for following treatment response in patients being treated for syphilis infection. To screen for syphilis infection, a reflex cascade that includes both RPR and a treponema-specific assay should be utilized, such as Treponema pallidum (Syphilis) Screening [place] (588851) or Rapid Plasma Reagin (RPR) Test With Reflex to Quantitative RPR and Confirmatory Treponema pallidum Antibodies (498423). Performed By: #### T SH #### [facility] [address] [place] [address] Dr. Irene Cedillo SJOGRENS ANTIBODIES (Anti SS A/B)on 10-19-2022 Sjogren's Anti-SS-A <0.2 Normal 0.0-0.9 [facility] Comment on above: Performed By: #### S EDR #### [facility] [address] [place] [address] Dr. Irene Cedillo Sjogren's Anti-SS-B <0.2 Normal 0.0-0.9 [facility] Comment on above: Performed By: #### S EDR #### [facility] [address] [place] [address] Dr. Irene Cedillo SMOOTH MUSCLE ANTIBODYon Actin (Smooth Muscle) Antibody 5 Units Normal 0-19 [facility] Comment on above: Result Comment: Nega tive 0 - 19 Weak positive 20 - 30 Moderate to strong positive >30 . Actin Antibodies are found in 52-85% of patients with autoimmune hepatitis or chronic active hepatitis and in 22% of patients with primary biliary cirrhosis. Performed By: #### C K, CRP #### [facility] [address] [place] [address] Dr. Irene Cedillo THYROGLOBULIN ABon Thyroglobulin Antibody <1.0 Normal 0.0-0.9 [facility] Comment on above: Result Comment: Thyr oglobulin Antibody measured by [employer] Performed By: #### C CPAB #### [facility] [address] [place] [address] Dr. Irene Cedillo THYROID PEROXIDASE ABon Thyroid Peroxidase (TPO) Ab 11 IU/mL Normal 0-34 [facility] Comment on above: Performed By: #### T SH #### [facility] [address] [place] [address] Dr. Irene Cedillo CBC AUTO DIFFon 10-18-2022 BASO # 0.1 103/ul Normal 0.0-0.1 [facility] Comment on above: Performed By: #### C K, CRP #### [facility] [address] [place] [address] Dr. Irene Cedillo Basophils/100 WBC (Bld) 0.7 % Normal 0.2-2.0 [facility] Comment on above: Performed By: #### C K, CRP #### [facility] [address] [place] [address] Dr. Irene Cedillo EO # 0.2 103/ul Normal 0.0-0.7 [facility] Comment on above: Performed By: #### C K, CRP #### [facility] [address] [place] [address] Dr. Irene Cedillo Eosinophils/100 WBC (Bld) 2.8 % Normal 0.9-7.0 [facility] Comment on above: Performed By: #### C K, CRP #### [facility] [address] [place] [address] Dr. Irene Cedillo Erythrocyte distribution width (RBC) [Ratio] 13.4 % Normal 11.0-15.0 [facility] Comment on above: Performed By: #### C K, CRP #### [facility] [address] [place] [address] Dr. Irene Cedillo Hematocrit (Bld) [Volume fraction] 43.6 % Normal 36.0-48.0 [facility] Comment on above: Performed By: #### C K, CRP #### [facility] [address] [place] [address] Dr. Irene Cedillo Hemoglobin (Bld) [Mass/Vol] 14.1 g/dL Normal 12.0-16.0 [facility] Comment on above: Performed By: #### C K, CRP #### [facility] [address] [place] [address] Dr. Irene Cedillo IG # 0.01 10e3/ul Normal 0.00-0.03 [facility] Comment on above: Performed By: #### C K, CRP #### [facility] [address] [place] [address] Dr. Irene Cedillo IG % 0.1 % Normal 0.0-0.5 [facility] Comment on above: Performed By: #### C K, CRP #### [facility] [address] [place] [address] Dr. Irene Cedillo LYMPH # 2.5 103/ul Normal 1.2-3.8 [facility] Comment on above: Performed By: #### C K, CRP #### [facility] [address] [place] [address] Dr. Irene Cedillo Lymphocytes/100 WBC (Bld) 35.9 % Normal 20.5-60.0 [facility] Comment on above: Performed By: #### C K, CRP #### [facility] [address] [place] [address] Dr. Irene Cedillo MANUAL DIFF REQ NO Normal [facility] Comment on above: Performed By: #### C K, CRP #### [facility] [address] [place] [address] Dr. Irene Cedillo MCH (RBC) [Entitic mass] 29.6 pg Normal 26.7-34.0 [facility] Comment on above: Performed By: #### C K, CRP #### [facility] [address] [place] [address] Dr. Irene Cedillo MCHC (RBC) [Mass/Vol] 32.3 g/dL Normal 29.9-35.2 [facility] Comment on above: Performed By: #### C K, CRP #### [facility] [address] [place] [address] Dr. Irene Cedillo MCV (RBC) [Entitic vol] 91.6 fL Normal 81.0-99.0 [facility] Comment on above: Performed By: #### C K, CRP #### [facility] [address] [place] [address] Dr. Irene Cedillo MONO # 0.4 103/ul Normal 0.3-0.8 [facility] Comment on above: Performed By: #### C K, CRP #### [facility] [address] [place] [address] Dr. Irene Cedillo Monocytes/100 WBC (Bld) 5.2 % Normal 1.7-12.0 [facility] Comment on above: Performed By: #### C K, CRP #### [facility] [address] [place] [address] Dr. Irene Cedillo NEUT # 3.8 103/ul Normal 1.4-6.5 [facility] Comment on above: Performed By: #### C K, CRP #### [facility] [address] [place] [address] Dr. Irene Cedillo Neutrophils/100 WBC (Bld) 55.3 % Normal 43.0-75.0 [facility] Comment on above: Performed By: #### C K, CRP #### [facility] [address] [place] [address] Dr. Irene Cedillo Platelet mean volume (Bld) [Entitic vol] 9.7 fL Normal 9.5-13.5 [facility] Comment on above: Performed By: #### C K, CRP #### [facility] [address] [place] [address] Dr. Irene Cedillo PLT 271 103/ul Normal 150-450 [facility] Comment on above: Performed By: #### C K, CRP #### [facility] [address] [place] [address] Dr. Irene Cedillo RBC 4.76 106/ul Normal 4.20-5.40 [facility] Comment on above: Performed By: #### C K, CRP #### [facility] [address] [place] [address] Dr. Irene Cedillo WBC 6.9 103/ul Normal 4.0-11.0 [facility] Comment on above: Performed By: #### C K, CRP #### [facility] [address] [place] [address] Dr. Irene Cedillo CPKon 10-18-2022 CK [Catalytic activity/Vol] 57 U/L Normal 26-192 [facility] Comment on above: Performed By: #### T SH #### [facility] [address] [place] [address] Dr. Irene Cedillo CRPon 10-18-2022 CRP 0.8 mg/dL Normal <=1.0 [facility] Comment on above: Performed By: #### T SH #### [facility] [address] [place] [address] Dr. Irene Cedillo FREE T4on 10-18-2022 Free T4 [Mass/Vol] 1.07 ng/dL Normal 0.76-1.[address] [facility] Comment on above: Performed By: #### C K, CRP #### [facility] [address] [place] [address] Dr. Irene Cedillo PROF 14(COMP METB)on 023 Albumin [Mass/Vol] 3.9 g/dL Normal 3.4-5.[address] [facility] Comment on above: Performed By: #### T SH #### [facility] [address] [place] [address] Dr. Irene Cedillo Albumin/Globulin [Mass ratio] 1.1 {ratio} Normal [facility] Comment on above: Performed By: #### T SH #### [facility] [address] [place] [address] Dr. Irene Cedillo ALP [Catalytic activity/Vol] 90 U/L Normal 46-116 [facility] Comment on above: Performed By: #### T SH #### [facility] [address] [place] [address] Dr. Irene Cedillo ALT [Catalytic activity/Vol] 32 U/L Normal 14-59 [facility] Comment on above: Performed By: #### T SH #### [facility] [address] [place] [address] Dr. Irene Cedillo Anion gap [Moles/Vol] 13.8 mmol/L Normal [facility] Comment on above: Performed By: #### T SH #### [facility] [address] [place] [address] Dr. Irene Cedillo AST [Catalytic activity/Vol] 26 U/L Normal 15-37 [facility] Comment on above: Performed By: #### T SH #### [facility] [address] [place] [address] Dr. Irene Cedillo Bilirubin [Mass/Vol] 0.2 mg/dL Normal 0.2-1.0 [facility] Comment on above: Performed By: #### T SH #### [facility] [address] [place] [address] Dr. Irene Cedillo Calcium [Mass/Vol] 9.1 mg/dL Normal 8.5-10.1 [facility] Comment on above: Performed By: #### T SH #### [facility] [address] [place] [address] Dr. Irene Cedillo Chloride [Moles/Vol] 102 mmol/L Normal 98-107 [facility] Comment on above: Performed By: #### T SH #### [facility] [address] [place] [address] Dr. Irene Cedillo CO2 [Moles/Vol] 25.4 mmol/L Normal 21.0-32.0 [facility] Comment on above: Performed By: #### T SH #### [facility] [address] [place] [address] Dr. Irene Cedillo Creatinine [Mass/Vol] 0.64 mg/dL Normal 0.55-1.02 [facility] Comment on above: Performed By: #### T SH #### [facility] [address] [address] [address] Irene Cedillo EGFR-AF GRENADIAN >60 Normal >=60 [facility] Comment on above: Performed By: #### T SH #### [facility] [address] [address] [address] Irene Cedillo EGFR-NON AF GRENADIAN >60 Normal >=60 [facility] Comment on above: Performed By: #### T SH #### [facility] [address] [address] [address] Irene Cedillo Globulin (S) [Mass/Vol] 3.6 g/dL Normal [facility] Comment on above: Performed By: #### T SH #### [facility] [address] [place] [address] Dr. Irene Cedillo Glucose [Mass/Vol] 132 mg/dL Critically high 74-106 [facility] Comment on above: Performed By: #### T SH #### [facility] [address] [place] [address] Dr. Irene Cedillo Potassium [Moles/Vol] 4.2 mmol/L Normal 3.5-5.1 [facility] Comment on above: Performed By: #### T SH #### [facility] [address] [place] [address] Dr. Irene Cedillo Protein [Mass/Vol] 7.5 g/dL Normal 6.4-8.[address] [facility] Comment on above: Performed By: #### T SH #### [facility] [address] [place] [address] Dr. Irene Cedillo Sodium [Moles/Vol] 137 mmol/L Normal 136-[address] [facility] Comment on above: Performed By: #### T SH #### [facility] [address] [place] [address] Dr. Irene Cedillo Urea nitrogen [Mass/Vol] 19.0 mg/dL Critically high 7.0-18.0 [facility] Comment on above: Performed By: #### T SH #### [facility] [address] [place] [address] Dr. Irene Cedillo Urea nitrogen/Creatinine [Mass ratio] 29.7 mg/mg Normal [facility] Comment on above: Performed By: #### T SH #### [facility] [address] [place] [address] Dr. Irene Cedillo PROTIMEon 10-18-2022 INR Coag (PPP) [Relative time] {INR} Normal [facility] Comment on above: Performed By: #### C K, CRP #### [facility] [address] [place] [address] Dr. Irene Cedillo INR GUIDELINES SEE BELOW Normal [facility] Comment on above: Result Comment: JUAN RAMON RED INR: 2.0 - 3.0 CONDITIONS NOT LISTED BELOW 2.5 - 3.5 FOR PROSTHETIC HEART VALVE REPLACEMENT 2.5 - 3.5 RECURRENT THROMBOSIS Performed By: #### C K, CRP #### [facility] [address] [place] [address] Dr. Irene Cedillo PT Coag (PPP) [Time] 9.8 s Normal 9.0-11.6 [facility] Comment on above: Performed By: #### C K, CRP #### [facility] [address] [place] [address] Dr. Irene Cedillo PTTon 10-18-2022 aPTT Coag (Bld) [Time] 26.0 s Normal 22.3-36.2 [facility] Comment on above: Performed By: #### C K, CRP #### [facility] [address] [place] [address] Dr. Irene Cedillo SED RATE WESTERGRENon 2022 SED RATE 42 mm/hr Critically high <=30 [facility] Comment on above: Performed By: #### S EDR #### [facility] [address] [place] [address] Dr. Irene Cedillo TSHon 10-18-2022 TSH 0.718 uIU/mL Normal 0.358-3.740 [facility] Comment on above: Performed By: #### T SH #### [facility] [address] [place] [address] Dr. Irene Cedillo UA RANDOM W/MICROSCOPICon BACTERIA NONE SEEN Normal NONE SEEN [facility] Comment on above: Performed By: #### C CPAB #### [facility] [address] [place] [address] Dr. Irene Cedillo Bilirubin Ql (U) Negative Normal NEGATIVE [facility] Comment on above: Performed By: #### C CPAB #### [facility] [address] [place] [address] Dr. Irene Cedillo CAST NONE SEEN Normal NONE SEEN [facility] Comment on above: Performed By: #### C CPAB #### [facility] [address] [place] [address] Dr. Irene Cedillo Clarity (U) CLEAR Normal CLEAR [facility] Comment on above: Performed By: #### C CPAB #### [facility] [address] [place] [address] Dr. Irene Cedillo Color (U) LT. YELLOW Normal YELLOW [facility] Comment on above: Performed By: #### C CPAB #### [facility] [address] [place] [address] Dr. Irene Cedillo Crystals LM Nom (Urine sed) NONE SEEN Normal NONE SEEN [facility] Comment on above: Performed By: #### C CPAB #### [facility] [address] [place] [address] Dr. Irene Cedillo Epithelial cells LM Ql (Urine sed) NONE SEEN Normal NONE SEEN /RARE [facility] Comment on above: Performed By: #### C CPAB #### [facility] [address] [place] [address] Dr. Irene Cedillo Glucose Ql (U) Negative Normal NEGATIVE [facility] Comment on above: Performed By: #### C CPAB #### [facility] [address] [place] [address] Dr. Irene Cedillo Hemoglobin Ql (U) Negative Normal NEGATIVE [facility] Comment on above: Performed By: #### C CPAB #### [facility] [address] [place] [address] Dr. Irene Cedillo Ketones Ql (U) Negative Normal NEGATIVE [facility] Comment on above: Performed By: #### C CPAB #### [facility] [address] [place] [address] Dr. Irene Cedillo LEUKOCYTES Negative Normal NEGATIVE [facility] Comment on above: Performed By: #### C CPAB #### [facility] [address] [place] [address] Dr. Irene Cedillo MUCOUS NONE SEEN Normal NONE SEEN [facility] Comment on above: Performed By: #### C CPAB #### [facility] [address] [place] [address] Dr. Irene Cedillo Nitrite Ql (U) Negative Normal NEGATIVE [facility] Comment on above: Performed By: #### C CPAB #### [facility] [address] [place] [address] Dr. Irene Cedillo pH (U) 5.5 [pH] Normal 5-9 [facility] Comment on above: Performed By: #### C CPAB #### [facility] [address] [place] [address] Dr. Irene Cedillo RBC 0-2 Normal 0-2 [facility] Comment on above: Performed By: #### C CPAB #### [facility] [address] [place] [address] Dr. Irene Cedillo SPEC GRAVITY 1.020 Normal 1.005-<=1.025 [facility] Comment on above: Performed By: #### C CPAB #### [facility] [address] [place] [address] Dr. Irene Cedillo UA PROTEIN Negative Normal NEGATIVE/ TRACE [facility] Comment on above: Performed By: #### C CPAB #### [facility] [address] [place] [address] Dr. Irene Cedillo Urobilinogen Qn (U) 0.2 {Junior'U}/dL Normal 0.2 - 1. 0 [facility] Comment on above: Performed By: #### C CPAB #### [facility] [address] [place] [address] Dr. Irene Cedillo WBC NONE SEEN Normal NONE SEEN [facility] Comment on above: Performed By: #### C CPAB #### [facility] [address] [place] [address] Dr. rIene Cedillo HLA B 27on 09-21-2022 HLA-B27 Negative Normal [facility] Comment on above: Result Comment: HLA- B*27 Negative B27 allele interpretation for all loci based on IMGT/HLA database version 3.44 This test was developed and its performance characteristics determined by [employer]. It has not been cleared or approved by the Food and Drug Administration. [facility] CLIA ID Number [id number] . This test was performed using PCR (Polymerase Chain Reaction)/SSOP (Sequence Specific Oligonucleotide Probes) technique. SBT (Sequence Based Typing) and/or SSP (Sequence Specific Primers) may be used as supplemental methods when necessary. Please contact [facility] Customer Service at if you have any questions. . Director of [facility] Dr Kris Salinas, PhD Performed By: #### C CPAB #### [facility] [address] [place] [address] Dr. Irene Cedillo ADRI by IFAon 09-15-2022 Antinuclear Antibodies, IFA Positive Abnormal [facility] Comment on above: Result Comment: Nega tive <1:80 Borderline 1:80 Positive >1:80 Performed By: #### S EDR #### [facility] [address] [place] [address] Dr. Irene Cedillo Centriole Pattern Normal [facility] Comment on above: Performed By: #### S EDR #### [facility] [address] [place] [address] Dr. Irene Cedillo Centromere Pattern Normal [facility] Comment on above: Performed By: #### S EDR #### [facility] [address] [address] [address] Irene Cedillo Homogeneous Pattern 1:160 Critically high [facility] Comment on above: Result Comment: ICAP nomenclature: AC-1 Performed By: #### S EDR #### [facility] [address] [address] [address] Irene Cedillo Midbody Pattern Normal [facility] Comment on above: Performed By: #### S EDR #### [facility] [address] [address] [address] Irene Cedillo Note: Comment Normal [facility] Comment on above: Result Comment: For more [...] titers Nucleosomes, Histones Drug-induced SLE Speckled Sm, COOK PIE, SCL-70, SLE,MCTD,PSS (diffuse form), SS-A/SS-B Sjogrens Nucleolar SCL-70, PM-1/SCL High titers Scleroderma, PM/DM Centromere Centromere PSS (limited form) w/Crest syndrome variable Nuclear Dot [id number] Primary Biliary Cirrhosis Nuclear GP210, Primary Biliary Cirrhosis Membrane margie A,B,C Performed By: #### S EDR #### [facility] [address] [place] [address] Dr. Irene Cedillo Nuclear Dot Pattern Normal [facility] Comment on above: Performed By: #### S EDR #### [facility] [address] [address] [address] Irene Cedillo Nuclear Membrane Pattern Normal [facility] Comment on above: Performed By: #### S EDR #### [facility] [address] [address] [address] Irene Cedillo Nucleolar Pattern Normal [facility] Comment on above: Performed By: #### S EDR #### [facility] [address] [address] [address] Irene Cedillo PCNA Pattern Normal [facility] Comment on above: Performed By: #### S EDR #### [facility] [address] [place] [address] Dr. Irene Cedillo Speckled Pattern Normal [facility] Comment on above: Performed By: #### S EDR #### [facility] [address] [place] [address] Dr. Irene Cedillo Spindle Apparatus Pattern Normal [facility] Comment on above: Performed By: #### S EDR #### [facility] [address] [place] [address] Dr. Irene Cedillo CYCLIC CITRULLINATED PEPTIDE AB (CCP)on 09-15-2022 CCP Antibodies IgG/IgA 0 units Normal 0-19 [facility] Comment on above: Result Comment: Nega tive <20 Weak positive 20 - 39 Moderate positive 40 - 59 Strong positive >59 Performed By: #### C CPAB #### [facility] [address] [place] [address] Dr. Irene Cedillo RHEUMATOID FACTORon 09-15-19 23 RA Latex Turbid. <10.0 Normal <14.0 [facility] Comment on above: Performed By: #### C K, CRP #### [facility] [address] [place] [address] Dr. Irene Cedillo CBC AUTO DIFFon 09-13-2022 BASO # 0.0 103/ul Normal 0.0-0.1 [facility] Comment on above: Performed By: #### H PYLORI #### [facility] [address] [place] [address] Dr. Irene Cedillo Basophils/100 WBC (Bld) 0.4 % Normal 0.2-2.0 [facility] Comment on above: Performed By: #### H PYLORI #### [facility] [address] [place] [address] Dr. Irene Cedillo EO # 0.3 103/ul Normal 0.0-0.7 [facility] Comment on above: Performed By: #### H PYLORI #### [facility] [address] [place] [address] Dr. Irene Cedillo Eosinophils/100 WBC (Bld) 4.4 % Normal 0.9-7.0 [facility] Comment on above: Performed By: #### H PYLORI #### [facility] [address] [place] [address] Dr. Irene Cedillo Erythrocyte distribution width (RBC) [Ratio] 13.2 % Normal 11.0-15.0 [facility] Comment on above: Performed By: #### H PYLORI #### [facility] [address] [place] [address] Dr. Irene Cedillo Hematocrit (Bld) [Volume fraction] 41.5 % Normal 36.0-48.0 [facility] Comment on above: Performed By: #### H PYLORI #### [facility] [address] [place] [address] Dr. Irene Cedillo Hemoglobin (Bld) [Mass/Vol] 14.0 g/dL Normal 12.0-16.0 [facility] Comment on above: Performed By: #### H PYLORI #### [facility] [address] [place] [address] Dr. Irene Cedillo IG # 0.02 10e3/ul Normal 0.00-0.03 [facility] Comment on above: Performed By: #### H PYLORI #### [facility] [address] [place] [address] Dr. Irene Cedillo IG % 0.3 % Normal 0.0-0.5 [facility] Comment on above: Performed By: #### H PYLORI #### [facility] [address] [place] [address] Dr. Irene Cedillo LYMPH # 2.5 103/ul Normal 1.2-3.8 [facility] Comment on above: Performed By: #### H PYLORI #### [facility] [address] [place] [address] Dr. Irene Cedillo Lymphocytes/100 WBC (Bld) 34.4 % Normal 20.5-60.0 [facility] Comment on above: Performed By: #### H PYLORI #### [facility] [address] [place] [address] Dr. Irene Cedillo MANUAL DIFF REQ NO Normal [facility] Comment on above: Performed By: #### H PYLORI #### [facility] [address] [place] [address] Dr. Irene Cedillo MCH (RBC) [Entitic mass] 30.0 pg Normal 26.7-34.0 [facility] Comment on above: Performed By: #### H PYLORI #### [facility] [address] [place] [address] Dr. Irene Cedillo MCHC (RBC) [Mass/Vol] 33.7 g/dL Normal 29.9-35.2 [facility] Comment on above: Performed By: #### H PYLORI #### [facility] [address] [place] [address] Dr. Irene Cedillo MCV (RBC) [Entitic vol] 88.9 fL Normal 81.0-99.0 [facility] Comment on above: Performed By: #### H PYLORI #### [facility] [address] [place] [address] Dr. Irene Cedillo MONO # 0.4 103/ul Normal 0.3-0.8 [facility] Comment on above: Performed By: #### H PYLORI #### [facility] [address] [place] [address] Dr. Irene Cedillo Monocytes/100 WBC (Bld) 5.6 % Normal 1.7-12.0 [facility] Comment on above: Performed By: #### H PYLORI #### [facility] [address] [place] [address] Dr. Irene Cedillo NEUT # 4.0 103/ul Normal 1.4-6.5 [facility] Comment on above: Performed By: #### H PYLORI #### [facility] [address] [place] [address] Dr. Irene Cedillo Neutrophils/100 WBC (Bld) 54.9 % Normal 43.0-75.0 [facility] Comment on above: Performed By: #### H PYLORI #### [facility] [address] [place] [address] Dr. Irene Cedillo Platelet mean volume (Bld) [Entitic vol] 9.6 fL Normal 9.5-13.5 [facility] Comment on above: Performed By: #### H PYLORI #### [facility] [address] [address] [address] Irene Cedillo PLT 314 103/ul Normal 150-450 [facility] Comment on above: Performed By: #### H PYLORI #### [facility] [address] [address] [address] Irene Cedillo RBC 4.67 106/ul Normal 4.20-5.40 [facility] Comment on above: Performed By: #### H PYLORI #### [facility] [address] [address] [address] Irene Cedillo WBC 7.3 103/ul Normal 4.0-11.0 [facility] Comment on above: Performed By: #### H PYLORI #### [facility] [address] [place] [address] Dr. Irene Cedillo CRPon 09-13-2022 CRP 0.3 mg/dL Normal <=1.0 [facility] Comment on above: Performed By: #### C K, CRP #### [facility] [address] [place] [address] Dr. Irene Cedillo RENAL FUNCTION PANELon 09-13 Albumin [Mass/Vol] 3.7 g/dL Normal 3.4-5.[address] [facility] Comment on above: Performed By: #### R ENAL #### [facility] [address] [place] [address] Dr. Irene Cedillo Calcium [Mass/Vol] 9.3 mg/dL Normal 8.5-10.[address] [facility] Comment on above: Performed By: #### R ENAL #### [facility] [address] [place] [address] Dr. Irene Cedillo Chloride [Moles/Vol] 105 mmol/L Normal 98-107 [facility] Comment on above: Performed By: #### R ENAL #### [facility] [address] [place] [address] Dr. Irene Cedillo CO2 [Moles/Vol] 30.5 mmol/L Normal 21.0-32.0 [facility] Comment on above: Performed By: #### R ENAL #### [facility] [address] [address] [address] Irene Cedillo Creatinine [Mass/Vol] 0.64 mg/dL Normal 0.55-1.02 [facility] Comment on above: Performed By: #### R ENAL #### [facility] [address] [address] [address] Irene Cedillo EGFR-AF GRENADIAN >60 Normal >=60 [facility] Comment on above: Performed By: #### R ENAL #### [facility] [address] [address] [address] Irene Cedillo EGFR-NON AF GRENADIAN >60 Normal >=60 [facility] Comment on above: Performed By: #### R ENAL #### [facility] [address] [place] [address] Dr. Irene Cedillo Glucose [Mass/Vol] 130 mg/dL Critically high 74-106 [facility] Comment on above: Performed By: #### R ENAL #### [facility] [address] [address] [address] Irene Cedillo Phosphate [Mass/Vol] 3.9 mg/dL Normal 2.6-4.7 [facility] Comment on above: Performed By: #### R ENAL #### [facility] [address] [place] [address] Dr. Irene Cedillo Potassium [Moles/Vol] 4.0 mmol/L Normal 3.5-5.1 [facility] Comment on above: Performed By: #### R ENAL #### [facility] [address] [address] [address] Irene Cedillo Sodium [Moles/Vol] 143 mmol/L Normal 136-145 [facility] Comment on above: Performed By: #### R ENAL #### [facility] [address] [place] [address] Dr. Irene Cedillo Urea nitrogen [Mass/Vol] 16.0 mg/dL Normal 7.0-18.0 [facility] Comment on above: Performed By: #### R ENAL #### [facility] [address] [address] [address] Irene Cedillo SED RATE [facility] 2022 SED RATE 20 mm/hr Normal <=30 [facility] Comment on above: Performed By: #### C K, CRP #### [facility] [address] [address] [address] Irene Cedillo MRI ANKLE LT WO [...] TONY DICKINSON Date: 2022-08-26 09:36 Normal [facility] MG MAMM SCREEN 3D RIAN CADon 08-08-2022 MG MAMM SCREEN 3D RIAN CAD Patient: EMILY MACIAS Exam Date: 08/08/2022 : 1960 Gender:F Ordering : DR. KENDRA MCKINLEY M.D. Admission #: [id number] Family : DR NETTA MONTOYA M.D. Order #: [id number] CLICK HERE TO VIEW EXAM RADIOLOGY REPORT [...] breast cancer at age 78. LOCATION: [facility] BREAST COMPOSITION: Heterogeneously dense,which may obscure small [...] M.D. on 08/09/2022 at 15:10 Normal [facility] GLYCOHEMOGLOBIN A1Con 2021 ADA RECOMMENDATION SEE BELOW Normal [facility] Comment on above: Result Comment: ADA RECOMMENDED LIMIT 4.0 - 6.0 ADA THERAPEUTIC TARGET < 7.0 ACTION SUGGESTED > 7.0 Performed By: #### C CPAB #### [facility] [address] [address] [address] Irene Cedillo Glucose [Mass/Vol] 128 mg/dL Normal [facility] Comment on above: Performed By: #### C CPAB #### [facility] [address] [address] [address] Irene Cedillo HbA1c (Bld) [Mass fraction] 6.1 % Normal 4.5-6.2 [facility] Comment on above: Performed By: #### C CPAB #### [facility] [address] [address] [address] Irene Cedillo XR FOOT RIAN MIN [...] PELON ALEXANDRE Date: 2022-07-06 06:21 Normal [facility] OVA AND PARASITE EXAMINATION on 04-13-2022 Ova + Parasite Exam Final report Normal [facility] Comment on above: Result Comment: Thes e results were obtained using wet preparation(s) and trichrome stained smear. This test does not include testing for Cryptosporidium parvum, Cyclospora, or Microsporidia. Performed By: #### S EDR #### [facility] [address] [address] [address] Irene Cedillo Result 1 Comment Normal [facility] Comment on above: Result Comment: No o va, cysts, or parasites seen. . One negative specimen does not rule out the possibility of a parasitic infection. Performed By: #### S EDR #### [facility] [address] [address] [address] Irene Cedillo CALPROTECTIN, FECALon 2021 Calprotectin, Fecal 36 ug/g Normal 0-120 [facility] Comment on above: Result Comment: Conc entration Interpretation Follow-Up <16 - 50 ug/g Normal None >50 -120 ug/g Borderline Re-evaluate in 4-6 weeks >120 ug/g Abnormal Repeat as clinically indicated Performed By: #### C K, CRP #### [facility] [address] [address] [address] Irene Cedillo HELICOBACTER PYLORI AG STOOL on 04-12-2022 H. pylori Stool Ag, EIA Negative Normal Negative [facility] Comment on above: Performed By: #### H PYLORI #### [facility] [address] [place] [address] Dr. Irene Cedillo LACTOFERRIN FECAL QUANTon Lactoferrin, Fecal, Quant. <1.00 Normal 0.00-7.24 [facility] Comment on above: Result Comment: Re sults [...] (IBS). Performed By: #### T SH #### [facility] [address] [place] [address] Dr. Irene Cedillo C. DIFF PCRon 04-08-2022 C. DIFFICILE PCR Negative Normal NEGATIVE The [facility] Comment on above: Performed By: #### S EDR #### [facility] [address] [place] [address] Dr. Irene Cedillo GI PANEL (PCR)on 04-08-2022 Adenovirus F 40/41 Not detected Normal NOT DETECTED [facility] Comment on above: Performed By: #### S EDR #### [facility] [address] [place] [address] Dr. Irene Cedillo Astrovirus Not detected Normal NOT DETECTED [facility] Comment on above: Performed By: #### S EDR #### [facility] [address] [place] [address] Dr. Irene Cedillo C. Diff toxin A/B Not detected Normal NOT DETECTED [facility] Comment on above: Performed By: #### S EDR #### [facility] [address] [place] [address] Dr. Irene Cedillo Campylobacter Not detected Normal NOT DETECTED The [facility] Comment on above: Performed By: #### S EDR #### [facility] [address] [place] [address] Dr. Irene Cedillo Cryptosporidium Not detected Normal NOT DETECTED [facility] Comment on above: Performed By: #### S EDR #### [facility] [address] [place] [address] Dr. Irene Cedillo Cyclos. Cayetanensis Not detected Normal NOT DETECTED [facility] Comment on above: Performed By: #### S EDR #### [facility] [address] [place] [address] Dr. Irene Cedillo E. Coli O157 Not Applicable Normal Not Applicable [facility] Comment on above: Performed By: #### S EDR #### [facility] [address] [place] [address] Dr. Irene Cedillo E. histolytica Not detected Normal NOT DETECTED The [facility] Comment on above: Performed By: #### S EDR #### [facility] [address] [place] [address] Dr. Irene Cedillo EAEC Not detected Normal NOT DETECTED [facility] Comment on above: Performed By: #### S EDR #### [facility] [address] [place] [address] Dr. Irene Cedillo EIEC Not detected Normal NOT DETECTED [facility] Comment on above: Performed By: #### S EDR #### [facility] [address] [place] [address] Dr. Irene Cedillo EPEC Not detected Normal NOT DETECTED [facility] Comment on above: Performed By: #### S EDR #### [facility] [address] [place] [address] Dr. Irene Cedillo ETEC Not detected Normal NOT DETECTED [facility] Comment on above: Performed By: #### S EDR #### [facility] [address] [place] [address] Dr. Irene Cedillo G. Lamblia Not detected Normal NOT DETECTED [facility] Comment on above: Performed By: #### S EDR #### [facility] [address] [place] [address] Dr. Irene VIGIL CONTROLS PASSED Normal [facility] Comment on above: Performed By: #### S EDR #### [facility] [address] [address] [address] Irene ACOSTA MITCHEL HEADER GI PANEL BACTERIA Normal T [facility] Comment on above: Performed By: #### S EDR #### [facility] [address] [address] [address] Irene CALDERA ECOLI GI PANEL DIARRHEAGEN IC E.COLI / SHIGELLA Normal [facility] Comment on above: Performed By: #### S EDR #### [facility] [address] [address] [address] Irene CALDERA INFO SEE BELOW Normal [facility] Comment on above: Result Comment: EAEC - Enteroaggregative E. Coli EPEC- Enteropathogenic E. Coli ETEC- Enterotoxigenic E. Coli lt/st STEC- Shigella-like toxin-producing E. Coli stx1/stx2 EIEC- Shigella/Enteroinvasive E. Coli Performed By: #### S EDR #### [facility] [address] [address] [address] Irene CALDERA PARASITES GI PANEL PARASITES Normal [facility] Comment on above: Performed By: #### S EDR #### [facility] [address] [address] [address] Irene CALDERA VIRUS GI PANEL VIRUSES Normal [facility] Comment on above: Performed By: #### S EDR #### [facility] [address] [address] [address] Irene Cedillo Norovirus GI/GII Not detected Normal NOT DETECTED [facility] Comment on above: Performed By: #### S EDR #### [facility] [address] [address] [address] Irene Cedillo P. Shigelloides Not detected Normal NOT DETECTED [facility] Comment on above: Performed By: #### S EDR #### [facility] [address] [address] [address] Irene Cedillo Rotavirus A Not detected Normal NOT DETECTED The [facility] Comment on above: Performed By: #### S EDR #### [facility] [address] [place] [address] Dr. Irene Cedillo Salmonella Not detected Normal NOT DETECTED [facility] Comment on above: Performed By: #### S EDR #### [facility] [address] [place] [address] Dr. Irene Cedillo Sapovirus Not detected Normal NOT DETECTED [facility] Comment on above: Performed By: #### S EDR #### [facility] [address] [place] [address] Dr. Irene Cedillo STEC Not detected Normal NOT DETECTED [facility] Comment on above: Performed By: #### S EDR #### [facility] [address] [place] [address] Dr. Irene Cedillo Vibrio Not detected Normal NOT DETECTED [facility] Comment on above: Performed By: #### S EDR #### [facility] [address] [place] [address] Dr. Irene Cedillo Vibrio Cholera Not detected Normal NOT DETECTED [facility] Comment on above: Performed By: #### S EDR #### [facility] [address] [place] [address] Dr. Irene Cedillo Y. Enterocolitica Not detected Normal NOT DETECTED [facility] Comment on above: Performed By: #### S EDR #### [facility] [address] [place] [address] Dr. Irene Cedillo BUNon 03-27-2022 Urea nitrogen [Mass/Vol] 20.0 mg/dL Critically high 7.0-18.0 [facility] Comment on above: Performed By: #### C K, CRP #### [facility] [address] [place] [address] Dr. Irene Cedillo CREATININEon 03-27-2022 Creatinine [Mass/Vol] 0.75 mg/dL Normal 0.55-1.02 [facility] Comment on above: Performed By: #### C K, CRP #### [facility] [address] [place], [place] [address] Dr. Irene Cedillo EGFR-AF GRENADIAN >60 Normal >=60 [facility] Comment on above: Performed By: #### C K, CRP #### [facility] [address] [place], [place] [address] Dr. Irene Cedillo EGFR-NON AF GRENADIAN >60 Normal >=60 [facility] Comment on above: Performed By: #### C K, CRP #### [facility] [id number] Irene Cedillo CT ABD/PELV W CONon [...] and/or use of iterative reconstruction technique. Findings: Lockstitch Shoulder Joiner: No acute abnormalities are seen. Liver/Biliary System: [...] CIELO GARCIA Date: 2022-03-27 21:37 Normal [facility] POINT OF CARE GLUCOSEon 03-10 Glucose [Mass/Vol] 173 mg/dL Critically high 74-106 T [facility] Comment on above: Performed By: #### C CPAB #### [facility] [address] [place] [address] Dr. Irene Cedillo FSHon 02-25-2022 FSH 46.6 mIU/mL Normal [facility] Comment on above: Result Comment: Adul t Female: Follicular phase 3.5 - 12.5 Ovulation phase 4.7 - 21.5 Luteal phase 1.7 - 7.7 Postmenopausal 25.8 - 134.8 Performed By: #### C K, CRP #### [facility] [address] [place] [address] Dr. Irene Cedillo LUTEINIZING HORMONE (LH)on 0 02-25-2022 LH 33.3 mIU/mL Normal [facility] Comment on above: Result Comment: Adul t Female: Follicular phase 2.4 - 12.6 Ovulation phase 14.0 - 95.6 Luteal phase 1.0 - 11.4 Postmenopausal 7.7 - 58.5 Performed By: #### H PYLORI #### [facility] [address] [address] [address] Irene Cedillo TESTOSTERONE, TOTALon 2021 Testosterone [Mass/Vol] 6 ng/dL Normal 3-67 [facility] Comment on above: Performed By: #### H PYLORI #### [facility] [address] [place] [address] Dr. Irene Cedillo THYROID PEROXIDASE ABon 02-08 Thyroid Peroxidase (TPO) Ab <8 Normal 0-34 [facility] Comment on above: Performed By: #### C K, CRP #### [facility] [address] [address] [address] Irene Cedillo FREE T3on 02-24-2022 FREE T3 2.47 pg/mlL Normal 2.18-3.98 [facility] Comment on above: Performed By: #### S EDR #### [facility] [address] [place] [address] Dr. Irene Cedillo LYME DISEASE AB EIA W REFLEX on 01-31-2022 Lyme Total Antibody,EIA Negative Normal Negative [facility] Comment on above: Result Comment: Lyme Antibody Negative No laboratory evidence of infection with B. burgdorferi (Lyme disease). Negative results may occur in patients recently infected (greater than or equal to 14 days) with B. burgdorferi. If recent infection is suspected, repeat testing on a new sample collected in 7 to 14 days is recommended. Performed By: #### T SH #### [facility] [address] [place] [address] Dr. Irene Cedillo CPKon 01-30-2022 CK [Catalytic activity/Vol] 76 U/L Normal 26-192 [facility] Comment on above: Performed By: #### C K, CRP #### [facility] [address] [place] [address] Dr. Irene Cedillo CRPon 01-30-2022 CRP 0.4 mg/dL Normal <=1.0 [facility] Comment on above: Performed By: #### C K, CRP #### [facility] [address] [place] [address] Dr. Irene Cedillo SED RATE WESTERGRENon 2021 SED RATE 8 mm/hr Normal <=30 [facility] Comment on above: Performed By: #### H PYLORI #### [facility] [address] [address] [address] Irene Cedillo C REACTIVE PROTEINon 021 CRP [Mass/Vol] 9.3 mg/L High 0.0-7.0 [facility] Comment on above: Performed By: #### 6 [id number] #### [facility] [address] [place] [address], [facility] KNEE LEFT 3 VWSon 09-06-2021 KNEE LEFT 3 [facility] Department of Radiology [address] [place] [id number] ======== Patient Name: EMILY MACIAS : 1960 Sex: F Age: Race: White Pt. Location: Patient Status: Ordered Date: 09/06/2021 1:35:00 PM Completed Date: 09/06/2021 01:56 PM Requesting Provider: KIARA WILLETT Attending Provider: Report Copy To: Signs & Symptoms: M25.562 Pain in left knee I10 History: [place] Comments: Evaluate Exam: KNEE LEFT 3 [facility] ======== KNEE LEFT 3 [facility] 09/06/2021 1:56 PM CLINICAL INDICATIONS: M25.562 [...] above Electronically signed: Olga Murray. Transcribed by: [email or web address], User Resident: Electronically Signed by: OLGA MURRAY @ 09/06/2021 03:09 PM Normal [facility] Comment on above: Order Comment: Evalu ate KNEE RIGHT 3 [facility] KNEE RIGHT 3 [facility] Department of Radiology [address] [place] [phone] ======== Patient Name: EMILY MACIAS : 1960 Sex: F Age: Race: White Pt. Location: Patient Status: Ordered Date: 09/06/2021 1:35:00 PM Completed Date: 09/06/2021 01:56 PM Requesting Provider: KIARA WILLETT Attending Provider: Report Copy To: Signs & Symptoms: M25.561 Pain in right knee I10 History: [place] Comments: Evaluate Exam: KNEE RIGHT 3 [facility] ======== KNEE RIGHT 3 S 09/06/2021 1:56 PM CLINICAL INDICATIONS: M25.561 Pain [...] above Electronically signed: Olga Murray. Transcribed by: [email or web address], User Resident: Electronically Signed by: OLGA MURRAY @ 09/06/2021 03:08 PM Normal [facility] Comment on above: Order Comment: Evalu ate SEDIMENTATION RATEon 021 SED RATE 7 mm/hr Normal 0-20 [facility] Comment on above: Performed By: #### 5 [id number] #### [address] [address] GIGI [address]STON[address] Vital Signs Date Time Vital Sign Value Performing Clinician Facility 10-21-2024 09:08-0500 Body height 165.1 cm Netta Montoya MD Work Phone: [facility] 10-21-2024 09:08-0500 Body mass index (BMI) [Ratio] 31.9 kg/m2 Netta Montoya MD Work Phone: [phone] [place] [address] 10-21-2024 09:08-0500 Body weight 87.08 kg Netta Montoya MD Work Phone: 0([phone])[phone] [place] [address] 10-21-2024 09:08-0500 Diastolic blood pressure 64 mm[Hg] Netta Montoya MD Work Phone: 6(459)683-647207 [place] [address] 10-21-2024 09:08-0500 Heart rate 90 /min Netta Montoya MD Work Phone: [facility] 10-21-2024 09:08-0500 SaO2% (BldA) [Mass fraction] 97 % Netta Montoya MD Work Phone: [facility] 10-21-2024 09:08-0500 Systolic blood pressure 107 mm[Hg] Netta Montoya MD Work Phone: [facility] 09-30-2024 13:53-0500 Body height 160.02 cm Netta Montoya MD Work Phone: [facility] 09-30-2024 13:53-0500 Body mass index (BMI) [Ratio] 33.1 kg/m2 Netta Montoya MD Work Phone: [facility] 09-30-2024 13:53-0500 Body weight 84.82 kg Netta Montoya MD Work Phone: 6(532)[phone] [place] [address] 09-30-2024 13:53-0500 Diastolic blood pressure 70 mm[Hg] Netta Montoya MD Work Phone: [facility] 01-21-2025 13:53-0500 Heart rate 85 /min Netta Montoya MD Work Phone: [facility] 09-30-2024 13:53-0500 Systolic blood pressure 101 mm[Hg] Netta Montoya MD Work Phone: [facility] 08-29-2024 11:03-0500 Diastolic blood pressure 68 mm[Hg] Netta Montoya MD Work Phone: [facility] 08-29-2024 11:03-0500 Heart rate 89 /min Netta Montoya MD Work Phone: [facility] 08-29-2024 11:03-0500 Systolic blood pressure 115 mm[Hg] Netta Montoya MD Work Phone: [facility] 07-29-2024 09:33-0500 Body height 160.02 cm Netta Montoya MD Work Phone: [facility] 07-29-2024 09:33-0500 Body mass index (BMI) [Ratio] 34.3 kg/m2 Netta Montoya MD Work Phone: [facility] 07-29-2024 09:33-0500 Body weight 87.99 kg Netta Montoya MD Work Phone: [facility] 07-29-2024 09:33-0500 Diastolic blood pressure 69 mm[Hg] Netta Montoya MD Work Phone: [facility] 07-29-2024 09:33-0500 Heart rate 75 /min Netta Montoya MD Work Phone: [facility] 07-29-2024 09:33-0500 Systolic blood pressure 101 mm[Hg] Netta Montoya MD Work Phone: [facility] 07-17-2024 13:59-0500 Body height 160.02 cm Netta Montoya MD Work Phone: [facility] 07-17-2024 13:59-0500 Body mass index (BMI) [Ratio] 34.5 kg/m2 Netta Montoya MD Work Phone: [facility] 07-17-2024 13:59-0500 Body weight 88.45 kg Netta Montoya MD Work Phone: [facility] 07-17-2024 13:59-0500 Diastolic blood pressure 69 mm[Hg] Netta Montoya MD Work Phone: [facility] 07-17-2024 13:59-0500 Heart rate 83 /min Netta Montoya MD Work Phone: [facility] 07-17-2024 13:59-0500 SaO2% (BldA) [Mass fraction] 93 % Netta Montoya MD Work Phone: [facility] 07-17-2024 13:59-0500 Systolic blood pressure 117 mm[Hg] Netta Montoya MD Work Phone: [facility] 02-21-2024 13:19-0400 Body height 165.1 cm Sagar Krause MD Work Phone: [facility] 02-21-2024 13:19-0400 Body mass index (BMI) [Ratio] 31.78 kg/m2 Sagar Krause MD Work Phone: [facility] 02-21-2024 13:19-0400 Body temperature 97.11 [degF] Sagar Krause MD Work Phone: [facility] 02-21-2024 13:19-0400 Body weight 86.64 kg Sagar Krause MD Work Phone: [facility] 12-26-2023 13:54-0400 Body height 165.1 cm Radhamo Asif 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 Work Phone: [facility] 12-26-2023 13:54-0400 Body mass index (BMI) [Ratio] 33.45 kg/m2 Radha Brandee 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 Work Phone: [facility] 12-26-2023 13:54-0400 Body weight 91.17 kg Radha Asif 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 Work Phone: [employer] 08-13-2023 09:30-0500 Body height 161.93 cm Netta Montoya Other [employer] Other 08-13-2023 09:30-0500 Body mass index (BMI) [Ratio] 34.46 kg/m2 Netta Montoya Other [employer] Other 08-13-2023 09:30-0500 Body weight 90.36 kg Netta Montoya Other [employer] Other 08-13-2023 09:30-0500 Diastolic blood pressure 70 mm[Hg] Netta Montoya Other [employer] Other 08-13-2023 09:30-0500 Systolic blood pressure 110 mm[Hg] Netta Montoya Other [employer] Other 08-09-2023 14:48-0500 Body height 165.1 cm Sagar Krause MD Work Phone: [employer] 08-09-2023 14:48-0500 Body mass index (BMI) [Ratio] 33.58 kg/m2 Sagar Krause MD Work Phone: [employer] 08-09-2023 14:48-0500 Body weight 91.54 kg Sagar Krause MD Work Phone: [employer] 04-24-2023 13:30-0400 Body height 161.93 cm Siva Ron Other [employer] Other 04-24-2023 13:30-0400 Body mass index (BMI) [Ratio] 32.52 kg/m2 Siva Ron Other [employer] Other 04-24-2023 13:30-0400 Body weight 85.28 kg Siva Ron Other [employer] Other 04-24-2023 13:30-0400 Diastolic blood pressure 70 mm[Hg] Siva Ron Other [employer] Other 04-24-2023 13:30-0400 Systolic blood pressure 126 mm[Hg] Siva Ron Other [employer] Other 02-22-2023 15:15-0400 Body height 165.1 cm [employer] THREADING MACHINE SETTER[employer] Work Phone: [employer] 02-22-2023 15:15-0400 Body mass index (BMI) [Ratio] 31.51 kg/m2 [employer] 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 Work Phone: [employer] 02-22-2023 15:15-0400 Body temperature 98.01 [degF] [employer] THREADING MACHINE SETTER[employer] Work Phone: [employer] 02-22-2023 15:15-0400 Body weight 85.9 kg [employer] THREADING MACHINE SETTER[employer] Work Phone: [employer] 01-09-2023 09:30-0400 Body height 161.93 cm Netta Montoya Other [employer] Other 01-09-2023 09:30-0400 Body mass index (BMI) [Ratio] 33.04 kg/m2 Netta Montoya Other [employer] Other 01-09-2023 09:30-0400 Body weight 86.64 kg Netta Montoya Other [employer] Other 01-09-2023 09:30-0400 Diastolic blood pressure 60 mm[Hg] Netta Montoya Other [employer] Other 01-09-2023 09:30-0400 SaO2% (BldA) [Mass fraction] 97 % Netta Montoya Other [employer] Other 01-09-2023 09:30-0400 Systolic blood pressure 112 mm[Hg] Netta Montoya Other [employer] Other 01-01-2023 15:45-0400 Body height 161.93 cm Siva Ron Other [employer] Other 01-01-2023 15:45-0400 Body mass index (BMI) [Ratio] 34.08 kg/m2 Siva Ariadne Other [employer] Other 01-01-2023 15:45-0400 Body weight 89.36 kg Siva Ron Other [employer] Other 01-01-2023 15:45-0400 Diastolic blood pressure 71 mm[Hg] Siva Ron Other [employer] Other 01-01-2023 15:45-0400 Systolic blood pressure 116 mm[Hg] Siva Ron Other [employer] Other 11-30-2022 13:58-0400 Body height 165.1 cm Sagar Krause MD Work Phone: [employer] 11-30-2022 13:58-0400 Body mass index (BMI) [Ratio] 32.12 kg/m2 Sagar Krause MD Work Phone: [employer] 11-30-2022 13:58-0400 Body weight 87.54 kg Sagar Krause MD Work Phone: [employer] 10-10-2022 14:30-0500 Body height 161.93 cm Netta Montoya Other [employer] Other 10-10-2022 14:30-0500 Body mass index (BMI) [Ratio] 34.08 kg/m2 Netta Montoya Other [employer] Other 10-10-2022 14:30-0500 Body weight 89.36 kg Netta Montoya Other [employer] Other 10-10-2022 14:30-0500 Diastolic blood pressure 70 mm[Hg] Netta Montoya Other [employer] Other 10-10-2022 14:30-0500 Systolic blood pressure 108 mm[Hg] Netta Montoya Other [employer] Other 09-13-2022 16:30-0500 Body height 161.93 cm Netta Montoya Other [employer] Other 09-13-2022 16:30-0500 Body mass index (BMI) [Ratio] 33.21 kg/m2 Netta Montoya Other [employer] Other 09-13-2022 16:30-0500 Body weight 87.09 kg Netta Montoya Other [employer] Other 09-13-2022 16:30-0500 Diastolic blood pressure 62 mm[Hg] Netta Montoya Other [employer] Other 09-13-2022 16:30-0500 SaO2% (BldA) [Mass fraction] 97 % Netta Montoya Other [employer] Other 09-13-2022 16:30-0500 Systolic blood pressure 108 mm[Hg] Netta Montoya Other [employer] Other Encounters Encounter Date Encounter Type Care Provider Facility Start: 10-21-2024 End: 10-21-2024 ambulatory Netta Montoya MD Work Phone: [facility] Work Phone: Start: 10-21-2024 End: 10-21-2024 Patient encounter procedure Netta Montoya MD Work Phone: [facility] Work Phone: Start: 09-30-2024 End: 09-30-2024 Patient encounter procedure Netta Montoya MD Work Phone: [facility] Work Phone: Start: 09-30-2024 End: 09-30-2024 ambulatory Netta Montoya MD Work Phone: [facility] Work Phone: Start: 09-30-2024 End: 09-30-2024 Patient encounter procedure Netta Montoya MD Work Phone: [facility] Work Phone: Start: 09-19-2024 End: 09-19-2024 ambulatory [facility] [facility] Start: 09-16-2024 ambulatory NARENDRANATH LAKSHMIPATHY [facility] Start: 09-08-2024 End: 09-08-2024 ambulatory Chandra Edouard MD Facility:[facility] Start: 08-29-2024 End: 08-29-2024 Patient encounter procedure Netta Montoya MD Work Phone: [facility] Work Phone: Start: 08-29-2024 End: 08-29-2024 ambulatory Netta Montoya Facility:[facility] Start: 08-29-2024 End: 08-29-2024 Patient encounter procedure Netta Montoya MD Work Phone: On License Of [facility] Work Phone: Start: 08-18-2024 End: 08-18-2024 ambulatory Netta Montoya MD Facility:[facility] Start: 07-30-2024 ambulatory HILARY FENTONTYRARAGHUALBERTINA [facility] Start: 07-29-2024 End: 07-29-2024 Patient encounter procedure Netta Montoya MD Work Phone: [facility] Work Phone: Start: 07-17-2024 End: 07-17-2024 Patient encounter procedure Netta Montoya MD Work Phone: [facility] Work Phone: Start: 05-13-[address] [facility] Start: 04-14-2024 End: 05-11-2024 [facility] Start: 02-21-2024 End: 02-21-2024 Office outpatient visit 25 minutes Sagar Krause MD Work Phone: [facility] Comment on above: Hx of total knee art hroplasty, left (Primary Dx); Pain in prosthetic joint, subsequent encounter Start: 02-21-2024 End: 02-21-2024 Subsequent hospital visit by physician Sagar Krause MD Work Phone: [facility] Start: 02-21-2024 ambulatory NETTA MONTOYA [facility] Start: 02-11-2024 ambulatory Netta Montoya MD Facility:[facility] Start: 01-18-2024 End: 01-18-2024 ambulatory Netta Montoya MD Facility:[facility] Start: 01-09-2024 End: 02-09-[address] [facility] Start: 12-26-2023 End: 01-09-[address] [facility] Start: 12-26-2023 End: 12-26-2023 Office outpatient visit 15 minutes Radha [facility] 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 Work Phone: [facility] Comment on above: Hx of total knee art hroplasty, left (Primary Dx) Start: 12-26-2023 End: 12-26-2023 Subsequent hospital visit by physician Radha SANTOS Work Phone: [facility] Start: 12-26-2023 ambulatory RADHA BRANDEE [facility] Start: 12-20-2023 End: 12-20-2023 ambulatory Netta Montoya MD Facility:[facility] Start: 12-20-2023 End: 12-20-2023 ambulatory Netta Montoya MD Facility:[facility] Start: 10-22-2023 End: 10-22-2023 ambulatory Siva Ron Other [employer] Other Start: 10-22-2023 Telephone encounter Siva Huggins [facility] Start: 08-13-2023 End: 08-13-2023 ambulatory Netta Montoya Other [employer] Other Start: 08-13-2023 Office outpatient visit 15 minutes Netta Montoya [facility] Start: 08-09-2023 End: 08-09-2023 Office outpatient visit 15 minutes Sagar Krause MD Work Phone: [facility] Comment on above: Post-op pain (Primar y Dx); Pain in prosthetic joint, subsequent encounter Start: 08-09-2023 End: 08-09-2023 Subsequent hospital visit by physician Sagar Krause MD Work Phone: [facility] Start: 08-09-2023 ambulatory NETTA MONTOYA [facility] Start: 06-19-2023 End: 06-19-2023 ambulatory MD Netta Montoya Work Phone: [facility] Work Phone: Start: 06-19-2023 End: 06-19-2023 Patient encounter procedure MD Netta Montoya Work Phone: [facility] Work Phone: Start: 05-22-2023 End: 05-22-2023 ambulatory Siva Ron Other [employer] Other Start: 05-22-2023 Telephone encounter Siva sheriff [employer] Start: 05-09-2023 End: 05-09-2023 ambulatory MD Netta Montoya Work Phone: [facility] Work Phone: Start: 05-09-2023 End: 05-09-2023 Patient encounter procedure MD Netta Montoya Work Phone: [facility] Work Phone: Start: 04-26-2023 End: 04-26-2023 ambulatory Netta Montoya Other [employer] Other Start: 04-26-2023 Telephone encounter Netta Montoya [facility] Start: 04-24-2023 End: 04-24-2023 ambulatory Siva Ron Other [employer] Other Start: 04-24-2023 Office outpatient visit 25 minutes Siva Ron [facility] Start: 04-23-2023 End: 04-23-2023 ambulatory Netta Montoya Other [employer] Other Start: 04-23-2023 Telephone encounter Netta BAUMAN [facility] Start: 04-20-2023 End: 04-20-2023 ambulatory Netta Montoya Other [employer] Other Start: 04-20-2023 Telephone encounter Netta BAUMAN [facility] Start: 03-15-2023 End: 03-15-2023 ambulatory Siva Ron Other [employer] Other Start: 03-15-2023 Telephone encounter Siva sheriff [employer] [facility] Start: 02-22-2023 End: 02-22-2023 Postop follow up visit related to original px Radha Asif 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 Work Phone: [facility] Comment on above: Hx of total knee art hroplasty, left (Primary Dx) Start: 02-19-2023 End: 02-19-2023 ambulatory Netta Montoya Other [employer] Other Start: 02-19-2023 Telephone encounter Netta Montoya [facility] Start: 01-18-2023 End: 01-19-[address] Erin RON Facility:[facility] Start: 01-17-2023 End: 01-17-2023 ambulatory Siva Ron Other [employer] Other Start: 01-17-2023 Telephone encounter Siva sheriff [facility] Start: 01-16-2023 End: 01-16-2023 ambulatory Siva Ron Other [employer] Other Start: 01-16-2023 Telephone encounter Siva sheriff [facility] Start: 01-09-2023 Encounter for other preprocedural examination Netta Montoya [facility] Start: 01-09-2023 Office outpatient visit 15 minutes Netta Montyoa [facility] Start: 01-09-2023 Telephone encounter Netta Montoya [facility] Start: 01-09-2023 End: 01-10-[address] Erin RON [employer] Other Start: 01-08-2023 End: 01-08-[address] Erin RON Facility:[facility] Start: 01-02-2023 End: 01-02-2023 ambulatory Siva Ron Other [employer] Other Start: 01-02-2023 Telephone encounter Siva sheriff [employer] Start: 01-01-2023 End: 01-01-2023 ambulatory Siva Ron Other [employer] Other Start: 01-01-2023 Office outpatient ne w 45 minutes Siva Ron [facility] Start: 11-30-2022 End: 11-30-2022 Office outpatient new 60 minutes Sagar Krause MD Work Phone: [facility] Comment on above: Pain in prosthetic j oint, sequela (Primary Dx) Start: 11-30-2022 End: 11-30-2022 Subsequent hospital visit by physician Sagar Krause MD Work Phone: [facility] Start: 11-28-2022 End: 11-29-[address] CARA LEO Facility:[facility] Start: 11-09-2022 End: 11-10-2022 ambulatory BRI BERGER Facility:[facility] Start: 10-18-2022 End: 10-19-[address] CARA LEO Facility:[facility] Start: 10-10-2022 End: 10-10-2022 ambulatory Netta Montoya Other [employer] Other Start: 10-10-2022 Office outpatient visit 15 minutes Netta Montoya [facility] Start: 09-22-2022 End: 09-22-2022 ambulatory Netta Montoya Other [employer] Other Start: 09-22-2022 Telephone encounter Netta Montoya [facility] Start: 09-13-2022 End: 09-14-2022 ambulatory JANETT BALBUENA [facility] [employer] Other Start: 09-13-2022 Office outpatient visit 15 minutes Netta Montoya [facility] Start: 08-23-2022 End: 08-24-2022 ambulatory TONY DICKINSON Facility:[facility] Start: 08-22-2022 End: 08-23-2022 ambulatory JANETT BALBUENA Facility:[facility] Start: 08-08-2022 End: 08-09-[address] PELON ALEXANDRE Facility:[facility] Start: 08-01-2022 Adult health examination Netta Montoya Other [employer] Other Start: 08-01-2022 Gynecological examination normal Netta Montoya Other [employer] Other Start: 08-01-2022 Pre-procedure evaluation check Netta Montoya Other [employer] Other Start: 07-11-2022 End: 07-12-[address] NETTA MONTOYA Facility:[facility] Start: 07-05-2022 End: 07-06-2022 ambulatory BASILIO Goodrich [facility] Facility:[facility] Start: 04-08-2022 End: 04-09-[address] DOCTOR DESHPANDE Facility:[facility] Start: 04-05-2022 ambulatory SABINA DELGADILLO . Facility:[facility] Start: 03-28-2022 Encounter for other preprocedural examination DR DOCTOR DESHPANDE [facility] Start: 03-27-2022 End: 03-28-[address] DOCTOR [...] Date Procedure Procedure Detail Performing Clinician Start: 08-29-2024 Supine abdominal X-ray Netta Montoya MD Work Phone: Start: 02-21-2024 Arthrocentesis aspir &/inj major jt/bursa [...] Treatment Date Care Activity Detail Author Start: 09-30-2024 Cryptosporidium sp A g [Presence] in Stool by Immunoassay [facility] Start: 09-30-2024 Giardia lamblia Ag [Presence] in Stool by Immunoassay [facility] Start: 05-11-2024 Influenza vaccination INFLUENZ A VACCINE (Season Ended) [facility] Start: 02-21-2024 End: 02-20-2025 REQUEST FOR MISC LAB SENDOUT REQUEST FOR MISC LAB SENDOUT Lab Routine Pain in prosthetic joint, subsequent encounter Expected: 02/21/2024, Expires: 02/20/2025 [facility] Comment on above: Expected: 02/21/2024 , Expires: 02/20/2025 Start: 01-30-2024 End: 01-30-2024 Patient encounter procedure 01/30/2024 1:00 PM EDT Office Visit [facility] [address] [place] [address] Radha Asif, 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 [address] [place] [address] [facility] Start: 08-09-2023 End: 09-06-2023 C-reactive protein C REACTIVE PROTEIN Lab Routine Pain in prosthetic joint, subsequent encounter Expected: 08/09/2023, Expires: 09/06/2023 [facility] Comment on above: Expected: 08/09/2023 , Expires: 09/06/2023 Start: 08-09-2023 End: 09-06-2023 SEDIMENTATION RATE, AUTOMATED SEDIMENTATION RATE, AUTOMATED Lab Routine Pain in prosthetic joint, subsequent encounter Expected: 08/09/2023 (Approximate), Expires: 09/06/2023 [facility] Comment on above: Expected: 08/09/2023 (Approximate), Expires: 09/06/2023 Start: 07-06-2023 Hemoglobin A1c measurement HBA1C TEST [facility] Start: 06-06-2023 End: 06-06-2023 Patient encounter procedure 06/06/2023 1:10 PM EDT Office Visit [facility] [address] [place] [address] Sagar Krause MD [address] [place] [address] [facility] Start: 05-11-2023 COVID-19 VACCINE ( season) COVID-19 VACCINE ( season) [facility] Start: 05-11-2023 Influenza vaccination [facility] Start: 05-09-2023 [facility] Start: 01-04-2023 End: 01-04-2023 ambulatory 01/04/2023 Pre-Operative Nurse Assessment Internal Medicine [facility] Pre Admission Start: 05-11-2022 Influenza vaccination INFLUENZA VACC INE (#1) [facility] Start: 12-15-2009 Zoster vaccine hzv l ag for subcutaneous use ZOSTER (SHINGLES) VACCINE (1 of 2) [facility] Start: 12-15-2004 Screening for malign ant neoplasm of colon COLORECTAL CANCER SCREENING DISCUSSION [facility] Start: 1999 Lipid panel LIPID SCREENING [facility] Start: 1999 Screening for malign ant neoplasm of breast MAMMOGRAM SCREENING DISCUSSION [facility] Start: 12-15-1980 Screening for malign ant neoplasm of cervix CERVICAL CANCER SCREENING DISCUSSION [facility] Start: 12-15-1978 Third diphtheria, te tanus and acellular pertussis (DTaP) vaccination TDAP (ADULT) [facility] Start: 12-15-1974 HIV screening HIV SCREENING DISCUSSION [facility] Start: 06-16-1960 COVID-19 VACCINE (#1) COVID-19 VACCI NE (#1) [facility] Start: 1959 Diabetic foot examination DIABETIC F OOT EXAM [facility] Start: 1959 Glaucoma screening EYE EXAM [facility] Start: 1959 Hepatitis C screening HEPATITI S C VIRUS SCREENING [facility] Start: 1959 Lipid panel LIPIDS [facility] Start: 1959 Tetanus vaccination TETANUS [facility] Start: 1959 Thyroid stimulating hormone measurement TSH [facility] Start: 1959 Urine screening for protein URINE MICROALBUMIN TEST [facility] Comprehensive metabo lic 2000 panel - Serum or Plasma [facility] Radiography for bone length studies XR BONE LENGTH STUDY Imaging Routine Pain in prosthetic joint, sequela 11/30/2022 1:41 PM EDT [facility] XR Knee - left 3 Views XR KNEE L EFT 3 VIEWS Imaging Routine Pain in prosthetic joint, sequela 11/30/2022 1:41 PM EDT [facility] Work Phone: XR Knee - left 3 Views XR KNEE L EFT 3 VIEWS Imaging Routine Hx of total knee arthroplasty, left 02/22/2023 2:50 PM EDT [facility] XR Knee - left 3 Views XR KNEE L EFT 3 VIEWS Imaging Routine Post-op pain 08/09/2023 2:03 PM EST [facility] XR Knee - left 3 Views XR KNEE L EFT 3 VIEWS Imaging Routine Hx of total knee arthroplasty, left 12/26/2023 1:43 PM EDT [facility] XR Knee - left 3 Views XR KNEE L EFT 3 VIEWS Imaging Routine Hx of total knee arthroplasty, left 02/21/2024 1:11 PM EDT [facility] Payers Date Payer Category Payer Private Health Insurance 2021 Medicare MEDICARE AETNA [place] MEDICARE AETNA HMO [id number] 2021-Present [address] [place] [address] [id number] 1959 Unknown [id number] 2.840.1.687025.3.579.2.5 93 1959 Unknown [id number] 2.840.1.872948.3.579.2.5 93 1959 Unknown [id number] 2.16.840.1.772278.3.579.2.5 93 1959 Unknown [id number] 2.16.840.1.353032.3.579.2.5 93 1959 Unknown [id number] 2.16.840.1.391218.3.579.2.5 93 1959 Unknown [id number] 2.16.840.1.096054.3.579.2.5 93 1959 Unknown [id number] 2.16.840.1.452007.3.579.2.5 93 1959 Unknown [id number] 2.16.840.1.642611.3.579.2.5 1959 Unknown [id number] 2.16.840.1.691180.3.579.2.5 1959 Unknown [id number] 2.16.840.1.079143.3.579.2.5 1959 Unknown [id number] 2.16.840.1.703840.3.579.2.5 93 1959 Unknown [id number] 2.16.840.1.692590.3.579.2.5 1959 Unknown [id number] 2.16.840.1.424630.3.579.2.5 1959 Unknown [id number] 2.16.840.1.680325.3.579.2.5 1959 Unknown [id number] 2.16.840.1.007352.3.579.2.5 93 1959 Unknown [id number] 2.16.840.1.165138.3.579.2.5 1959 Unknown [id number] 2.16.840.1.792185.3.579.2.5 1959 Unknown [id number] 2.16.840.1.628326.3.579.2.5 93 1959 Unknown [id number] 2.16.840.1.672186.3.579.2.5 93 1959 Unknown [id number] 2.16.840.1.835771.3.579.2.9 83 1959 Unknown [id number] 2.16.840.1.265525.3.579.2.9 83 1959 Unknown [id number] 2.16.840.1.307709.3.579.2.9 83 1959 Unknown [id number] 2.16.840.1.027892.3.579.2.9 83 1959 Unknown [id number] 2.16.840.1.917090.3.579.2.9 83 1959 Unknown [id number] 2.16.840.1.825621.3.579.2.9 83 1959 Unknown [id number] 2.16.840.1.654464.3.579.2.1 286 1959 Unknown [id number] 2.16.840.1.814465.3.579.2.1 286 1959 Unknown [id number] 2.16.840.1.259777.3.579.2.1 286 1959 Unknown [id number] 2.16.840.1.406712.3.579.2.1 286 1959 Unknown [id number] 2.16.840.1.030694.3.579.2.1 286 1959 Unknown [id number] 2.16.840.1.498221.3.579.2.1 286 1959 Unknown [id number] 2.16.840.1.815911.3.579.2.1 96 1959 Unknown [id number] 2.16.840.1.484449.3.579.2.1 96 1959 Unknown [id number] 2.16.840.1.777676.3.579.2.1 96 1959 Unknown [id number] 2.16.840.1.713310.3.579.2.1 96 1959 Unknown [id number] 2.16.840.1.943429.3.579.2.1 96 1959 Unknown [id number] 2.16.840.1.250054.3.579.2.1 96 1959 Unknown [id number] 2.16.840.1.271563.3.579.2.1 96 1960 Medicare [id number] 2.16.840.1.387153.19 Unknown [id number] Social History Date Type Detail Facility Unknown if ever smoked [employer] Other Start: 02-22-2023 End: 12-26-2023 Sex Assigned At [employer] Other Start: 11-30-2022 End: 07-25-2024 Tobacco smoking status NHIS Never smoked tobacco [facility] Start: 11-30-2022 Tobacco use and exposure Smokeless tobacco non-user [facility] Start: 11-30-2022 End: 02-21-2024 Alcohol intake Ex-drinker (finding) [facility] Start: 1960 Sex Assigned At Not on file [facility] [employer] [facility] Start: 02-22-2023 End: 12-26-2023 History of Social function [facility] Start: 01-19-2023 End: 01-29-2023 Exposure to SARS-CoV-2 (event) Not sure [facility] Start: 1960 Sex Assigned At Female F [facility] Start: 10-01-2024 Sex Patient sex un known (finding) [facility] Start: 10-21-2024 Sex Female (finding) [facility] Medical Equipment Procedure Code Equipment Code Equipment Origin al Text Equipment Identifier Dates One Touch Ultra Test Strips Insert - Knee - [id number] Start: 01-29-2023 Patella - Knee - [id number] Start: 01-29-2023 Revision Pressfi t Stem 12mmx 60 [id number] Start: 01-29-2023 Revision Tibial Base Sz 2 [id number] Start: 01-29-2023 Rev Offset Stem 2mm [id number] t: 01-29-2023 Rev Distal Femor al Augment Sz 5 4mm [id number] Start: 01-29-2023 Rev Crs Femoral Sz 5 Left [id number] Start: 01-29-2023 Palacos R 1 X 40 Us - [id number] Start: 01-29-2023 Palacos R & G Smooth ne Cement High-Viscosity With Gentamicin - [id number] Start: 01-29-2023 Blood Sugar Diagnostic (Onetouch Ultra Test) strip Start: 09-09-2024 Pen Needle, Diab etic (Bd Ultra-Fine Mini Pen Needle) 31 gauge x 3/16 needle Start: 07-30-2024 Blood Sugar Diagnostic (Accu-Chek Guide Test Strips) strip Start: 10-26-2023 End: 09-09-2024 Blood Sugar Diagnostic (Accu-Chek Guide Test Strips) strip Start: 10-25-2023 End: 10-26-2023 Pen Needle, Diab etic (Bd Ultra-Fine Mini Pen Needle) 31 gauge x 3/16 needle Start: 07-30-2024 End: 07-30-2024 Pen Needle, Diab etic (Bd Ultra-Fine Mini Pen Needle) 31 gauge x 3/16 needle Start: 07-30-2024 End: 07-30-2024 Pen Needle, Diab etic (Bd Ultra-Fine Mini Pen Needle) 31 gauge x 3/16 needle Start: 07-29-2024 End: 07-30-2024 Blood Sugar Diagnostic (Onetouch Ultra Test) strip Start: 09-09-2024 Pen Needle, Diab etic (Bd Ultra-Fine Mini Pen Needle) 31 gauge x 3/16 needle Start: 07-30-2024 Blood Sugar Diagnostic (Accu-Chek Guide Test Strips) strip Start: 10-26-2023 End: 09-09-2024 Blood Sugar Diagnostic (Accu-Chek Guide Test Strips) strip Start: 10-25-2023 End: 10-26-2023 Pen Needle, Diab etic (Bd Ultra-Fine Mini Pen Needle) 31 gauge x 3/16 needle Start: 07-30-2024 End: 07-30-2024 Pen Needle, Diab etic (Bd Ultra-Fine Mini Pen Needle) 31 gauge x 3/16 needle Start: 07-30-2024 End: 07-30-2024 Pen Needle, Diab etic (Bd Ultra-Fine Mini Pen Needle) 31 gauge x 3/16 needle Start: 07-29-2024 End: 07-30-2024 Goals Date Patient Goal Desired Activity /State Clinical Notes 03-08-2022 to 07-29-2024 Note Date & Type Note Facility 07-29-2024 Evaluation note Diagnosis Onset Date Resolution Type 2 diabetes mellitus with hyperglycemia acute July 9:30am Abdominal cramping acute Decemb er 2023 10:41am Bloating acute August 29, 2024 10:41am GERD (gastroesophageal reflux disease) acute August 29 10:41am History of pancreatitis acute D ecember 2023 10:41am Irritable bowel syndrome with constipation and diarrhea acute August 29 10:41am Nausea acute August 29, 2024 10:41am Pancreatic insufficiency acute August 29, 2024 10:41am Abdominal pain acute September 302024 1:49pm Bloating acute September 30, 2024 1:49pm GERD (gastroesophageal reflux disease) acute September 30 1:49pm Irritable bowel syndrome with constipation and diarrhea acute September 30 1:49pm Nausea acute September 30, 2024 1:49pm Chronic insomnia acute October 21, 2024 8:57am Depression acute October 21, 2024 8:57am Excessive daytime sleepiness acute October 21 8:57am Hypnotic dependence acute Febru trent2024 8:57am Hypothyroidism acute October 112024 8:57am Intolerance to BiPAP/CPAP acute October 21 025 8:57am LUIS (obstructive sleep apnea) acute October 21 8:57am Restless leg syndrome acute Feb ruary 2024 8:57am Vitamin B12 deficiency acute Fe bruary 2024 8:57am [facility] Work Phone: 1(235) 412-433211-07-2024 Evaluation note* Diagnosis Onset Date Resolution Status Admit Date Chronic insomnia acute July 17, 2024 1:45pm Depression acute July 17, 2024 1:45pm Excessive daytime sleepiness acute July 17, 2024 1:45pm Hypnotic dependence acute 2023 1:45pm Hypothyroidism acute July 172023 1:45pm Intolerance to BiPAP/CPAP acute July 17, 2024 1:45pm LUIS (obstructive sleep apnea) acute July 17, 2024 1:45pm Restless leg syndrome acute Jul 1:45pm Vitamin B12 deficiency acute No vember 2023 1:45pm Type 2 diabetes mellitus wit h hyperglycemia acute July 29 9:30am Abdominal cramping acute Decemb er 2023 10:41am Bloating acute August 29, 2024 10:41am GERD (gastroesophageal reflu x disease) acute August 29 10:41am History of pancreatitis acute D ecember 2023 10:41am Irritable bowel syndrome wit h constipation and diarrhea acute Decemb er 2023 10:41am Nausea acute August 29, 2024 10:41am Pancreatic insufficiency acute August 29, 2024 10:41am Abdominal pain acute September 302024 1:49pm Bloating acute September 30, 2024 1:49pm GERD (gastroesophageal reflu x disease) acute September 30 1:49pm Irritable bowel syndrome wit h constipation and diarrhea acute Sepuar y 2024 1:49pm Nausea acute September 30, 2024 1:49pm [facility] Work Phone: 1(534) 603-261706-13-2024 History of Present illness Narrative* Sandra Ally - 02/21/2024 1:10 PM EDT Ortho Nurse - Established Patient Intake Room#: 2 Pt is here for left knee pain ( LTKA revision 01/30/24. Pt states that she is still having pain in her knee. Pain is 4-5. Pt did physical therapy, and took the medication but no relief. Pt would like to discuss options Date: 02/21/2024 1:17 PM Patient: Emily Macias MR#: [id number] : 1960 Age: 63 y.o. Referring Physician: Self, Self Insurance: Payor: MEDICARE [employer] HMO OR PPO / Plan: MEDICARE AETNA [...] daily. 60 capsule 0 Cholecalciferol 250 MCG (81350 UT) capsule capsule Take by mouth daily. [...] DR tablet Take by mouth daily. Pancrelipase, Ipl-Geht-Ikmi, (CREON PO) Take 36,000 Units by mouth. [...] by Nasal route once for 1 dose. [place] into the nose as directed. Call 911. [...] 60 capsule, Rfl: 0 Cholecalciferol 250 MCG (80644 UT) capsule capsule, Take by mouth daily., Disp: , Rfl: Cobalamin Combinations (B-12) 100-5000 MCG Tab SL, Place under tongue daily., Disp: , Rfl: dapagliflozin 5 MG tablet, Take 1 tablet by mouth daily., Disp: , Rfl: dexAMETHasone 4 MG/ML Solution injection, 1 mL by Other route As directed for 18 doses. (1 cc 3 x aweek at physical therapy via iontophoresis) for up [...] 1 tablet by mouth As directed. follow packagedirections, Disp: 21 tablet, Rfl: 0 Multiple Vitamins-Minerals (One Daily Calcium/Iron) tablet, Take 1 tablet by mouth daily., Disp: , Rfl: Omeprazole [address] tablet, Take by mouth daily., Disp: , Rfl: Pancrelipase, Vwe-Sqjg-Yjhl, (CREON PO), Take 36,000 Units by mouth. [...] by Nasal route once for 1 dose. [place] into the nose as directed. Call 911. If no response in 2 minutes use a new nasal spray in other nostril. Repeat until help arrives.,Disp: 1 Each, Rfl: 0 oxyCODONE 5 MG tablet, Take 1-2 tabs po q 4-6 hours prn pain. Wean as tolerated., Disp: 20 tablet, Rfl: 0 traMADol 50 MG tablet, 1 tabs po q 6 hr PRN pain, Disp: 20 tablet, Rfl: 0 Allergies: She is allergic to savella [milnacipran], zanaflex [tizanidine], and vancomycin. * Sagar Krause MD - 02/21/2024 1:10 PM EDTAssociated Order(s): LARGE JOINT/BURSA INJECTION AND/OR ASPIRATION: L [...] arc of motion. Severe, focal pain over thehamstrings and superficial anterior knee. Well healed old [...] risks, benefits and alternatives and obtaining verbal consent,a double dose injection in the left knee was administered. She tolerated the injection with no complaints. Aftercare instructions were provided with all questions being answered. Moving forward, she will use OTC bracing and also reported she applied for financial adviser for additional PT. Should she need additional [...] have reviewed the findings of the clinical logistics support and agree with their assessment. Ortho [...] 02/21/2024 1:17 PM Patient: Emily Macias MR#: [id number] : 1960 Age: 63 y.o. Referring Physician: Self, Self Insurance: Payor: MEDICARE AETSkyword HMO OR PPO / Plan: MEDICARE [employer]word HMO / Product Type: *No Product type* [...] daily. 60 capsule 0 Cholecalciferol 250 MCG (26718 UT) capsule capsule Take by mouth daily. [...] DR tablet Take by mouth daily. Pancrelipase, Gob-Hhbi-Llpb, (CREON PO) Take 36,000 Units by mouth. [...] by Nasal route once for 1 dose. [place] into the nose as directed. Call 911. [...] 60 capsule, Rfl: 0 Cholecalciferol 250 MCG (61752 UT) capsule capsule, Take by mouth daily., Disp: , Rfl: Cobalamin Combinations (B-12) 100-5000 MCG Tab SL, Place under tongue daily., Disp: , Rfl: dapagliflozin 5 MG tablet, Take 1 tablet by mouth daily., Disp: , Rfl: dexAMETHasone 4 MG/ML Solution injection, 1 mL by Other route As directed for 18 doses. (1 cc 3 x aweek at physical therapy via iontophoresis) for up [...] 1 tablet by mouth As directed. follow packagedirections, Disp: 21 tablet, Rfl: 0 Multiple Vitamins-Minerals (One Daily Calcium/Iron) tablet, Take 1 tablet by mouth daily., Disp: , Rfl: Omeprazole [address] tablet, Take by mouth daily., Disp: , Rfl: Pancrelipase, Vuj-Gftx-Ppol, (CREON PO), Take 36,000 Units by mouth. [...] by Nasal route once for 1 dose. [place] into the nose as directed. Call 911. If no response in 2 minutes use a new nasal spray in other nostril. Repeat until help arrives.,Disp: 1 Each, Rfl: 0 oxyCODONE 5 MG tablet, Take 1-2 tabs po q 4-6 hours prn pain. Wean as tolerated., Disp: 20 tablet, Rfl: 0 traMADol 50 MG tablet, 1 tabs po q 6 hr PRN pain, Disp: 20 tablet, Rfl: 0 Allergies: She is allergic to savella [milnacipran], zanaflex [tizanidine], and vancomycin. [facility] History of Present illness Narrative* Raven Ede - 12/26/2023 2:00 PM EDT Ortho Nurse - Established Patient Intake Room#: 5 Date: 12/26/2023 1:55 PM Patient: Emily Macias MR#: [id number] : 1960 Age: 63 y.o. 1yr L [...] daily. 60 capsule 0 Cholecalciferol 250 MCG (55998 UT) capsule capsule Take by mouth daily. [...] DR tablet Take by mouth daily. Pancrelipase, Nnk-Iwvb-Hvis, (CREON PO) Take 36,000 Units by mouth. [...] by Nasal route once for 1 dose. [place] into the nose as directed. Call 911. [...] 60 capsule, Rfl: 0 Cholecalciferol 250 MCG (16638 UT) capsule capsule, Take by mouth daily., Disp: , Rfl: Cobalamin Combinations (B-12) 100-5000 MCG Tab SL, Place under tongue daily., Disp: , Rfl: dapagliflozin 5 MG tablet, Take 1 tablet by mouth daily., Disp: , Rfl: dexAMETHasone 4 MG/ML Solution injection, 1 mL by Other route As directed for 18 doses. (1 cc 3 x aweek at physical therapy via iontophoresis) for up [...] 1 tablet by mouth As directed. follow packagedirections, Disp: 21 tablet, Rfl: 0 Multiple Vitamins-Minerals (One Daily Calcium/Iron) tablet, Take 1 tablet by mouth daily., Disp: , Rfl: Omeprazole [address] tablet, Take by mouth daily., Disp: , Rfl: Pancrelipase, Jhh-Tbfi-Wjng, (CREON PO), Take 36,000 Units by mouth. [...] by Nasal route once for 1 dose. [place] into the nose as directed. Call 911. If no response in 2 minutes use a new nasal spray in other nostril. Repeat until help arrives.,Disp: 1 Each, Rfl: 0 oxyCODONE 5 MG tablet, Take 1-2 tabs po q 4-6 hours prn pain. Wean as tolerated., Disp: 20 tablet, Rfl: 0 traMADol 50 MG tablet, 1 tabs po q 6 hr PRN pain, Disp: 20 tablet, Rfl: 0 Allergies: She is allergic to savella [milnacipran], zanaflex [tizanidine], and vancomycin. * Radha Asif, 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 - 12/26/2023 2:00 PM EDT SUBJECTIVE: Emily is an established patient of mine. She is here today for followup. She [...] She thinks she had that done at [facility]. We will try and obtain those results. [...] up with Dr. Krause for clinical examination. ([id number]) I have reviewed the findings of the clinical logistics support and agree with their assessment. Radha Asif APRN-MANUFACTURING ASSEMBLER Ortho Nurse - Established Patient Intake Room#: 5 Date: 12/26/2023 1:55 PM Patient: Emily Macias MR#: [id number] : 1960 Age: 63 y.o. 1yr L TKA Pt stated her knee has been locking on her and has pain 5/10. Pt stated she is almost always a 4-5/10 on the pain scale. Referring Physician: Self, Self Insurance: Payor: MEDICARE AETSkyword HMO OR PPO / Plan: MEDICARE [employer]ET[employer]word HMO / Product Type: *No Product type* [...] daily. 60 capsule 0 Cholecalciferol 250 MCG (37022 UT) capsule capsule Take by mouth daily. [...] DR tablet Take by mouth daily. Pancrelipase, Ery-Cpnb-Bctw, (CREON PO) Take 36,000 Units by mouth. [...] by Nasal route once for 1 dose. [place] into the nose as directed. Call 911. [...] 60 capsule, Rfl: 0 Cholecalciferol 250 MCG (98778 UT) capsule capsule, Take by mouth daily., Disp: , Rfl: Cobalamin Combinations (B-12) 100-5000 MCG Tab SL, Place under tongue daily., Disp: , Rfl: dapagliflozin 5 MG tablet, Take 1 tablet by mouth daily., Disp: , Rfl: dexAMETHasone 4 MG/ML Solution injection, 1 mL by Other route As directed for 18 doses. (1 cc 3 x aweek at physical therapy via iontophoresis) for up [...] 1 tablet by mouth As directed. follow packagedirections, Disp: 21 tablet, Rfl: 0 Multiple Vitamins-Minerals (One Daily Calcium/Iron) tablet, Take 1 tablet by mouth daily., Disp: , Rfl: Omeprazole [address] tablet, Take by mouth daily., Disp: , Rfl: Pancrelipase, Ekf-Bsbb-Blyp, (CREON PO), Take 36,000 Units by mouth. [...] by Nasal route once for 1 dose. [place] into the nose as directed. Call 911. If no response in 2 minutes use a new nasal spray in other nostril. Repeat until help arrives.,Disp: 1 Each, Rfl: 0 oxyCODONE 5 MG tablet, Take 1-2 tabs po q 4-6 hours prn pain. Wean as tolerated., Disp: 20 tablet, Rfl: 0 traMADol 50 MG tablet, 1 tabs po q 6 hr PRN pain, Disp: 20 tablet, Rfl: 0 Allergies: She is allergic to savella [milnacipran], zanaflex [tizanidine], and vancomycin. [facility]* Encounter Date Diagnosis Assessment Notes Treatment Notes Treatment Clinical Notes Aug, Piriformis syndrome, right (ICD-10 - G57.01) Pt declines PT at this time. Gave handouts for exercises and use flexeril qhs. Aug, Trochanteric bursitis, right hip (ICD-10 - M70.61) Pt declines PT. Muscle relaxer and handouts given. [employer] Other 11-30-2023 History of Present illness Narrative* Iza Robertair - 08/09/2023 2:30 PM EST Ortho Nurse [...] 08/09/2023 2:58 PM Patient: Emily Macias MR#: [id number] : 1960 Age: 62 y.o. Referring Physician: [...] DR tablet Take by mouth daily. Pancrelipase, Rce-Uoqo-Kurm, (CREON PO) Take 36,000 Units by mouth. [...] taking: Reported on 08/09/2023) Cholecalciferol 250 MCG (80233 UT) capsule capsule Take by mouth daily. [...] by Nasal route once for 1 dose. [place] into the nose as directed. Call 911. [...] have reviewed the findings of the clinical logistics support and agree with their assessment. Ortho [...] . Date: 08/09/2023 2:58 PM Patient: Emily Mcaias MR#: [id number] : 1960 Age: 62 y.o. Referring Physician: Sagar Krause MD Insurance: Payor: MEDICARE AETSkyword HMO OR PPO / Plan: MEDICARE [employer]ETSkyword HMO / Product Type: *No Product type* [...] Left; Surgeon: Sagar Krause MD; [facility] ARTHROPLASTY KNEE TOTAL Left 08/13/2017 Partial [...] DR tablet Take by mouth daily. Pancrelipase, Hsc-Olte-Cvec, (CREON PO) Take 36,000 Units by mouth. [...] taking: Reported on 08/09/2023) Cholecalciferol 250 MCG (81074 UT) capsule capsule Take by mouth daily. [...] by Nasal route once for 1 dose. [place] into the nose as directed. Call 911. [...] zanaflex [tizanidine], and vancomycin. [facility]* Encounter Date Diagnosis Assessment Notes Treatment Notes Treatment Clinical Notes Apr, Abdominal cramping (ICD-10 - R10.9) Patient reports doing well Apr, Diverticulosis (ICD-10 - K57.90) Apr, Alternating constipation and diarrhea (ICD-10 - R19.8) Apr, Pancreatic atrophy (ICD-10 - K86.89) Apr, Fatty liver (ICD-10 - K76.0) [employer] Other 08-11-2023 Evaluation note* Encounter Date Diagnosis Assessment Notes Treatment Notes Treatment Clinical Notes Apr, Type 2 diabetes mellitus with hyperglycemia, without long-term current use of insulin (ICD-10 - E11.65) [employer] Other 06-15-2023 History of Present illness Narrative* [...] 5/10 Date: 02/22/2023 3:16 PM Patient: Emily Milligans MR#: [id number] : 1960 Age: 62 y.o. Referring Physician: [...] daily. 84 capsule 0 Cholecalciferol 250 MCG (33677 UT) capsule capsule Take by mouth daily. [...] by Nasal route once for 1 dose. [place] into the nose as directed. Call 911. If no response in 2 minutes use a new nasal spray in other nostril. Repeat until help arrives. 1Each [address] Omepraz[address] tablet Take by mouth daily. oxyCODONE 5 MG tablet Take 1-2 tabs po q 4-6 hours prn pain. Wean as tolerated. 20 tablet 0 Pancrelipase, Jdu-Tjaw-Afvj, (CREON PO) Take 36,000 Units by mouth. [...] 84 capsule, Rfl: 0 Cholecalciferol 250 MCG (09471 UT) capsule capsule, Take by mouth daily., [...] by Nasal route once for 1 dose. [place] into the nose as directed. Call 911. [...] tolerated., Disp: 20 tablet, Rfl: 0 Pancrelipase, Efj-Dvcp-Tqst, (CREON PO), Take 36,000 Units by mouth. [...] zanaflex [tizanidine], and vancomycin. * Radha Asif APRN-MANUFACTURING ASSEMBLER - 02/22/2023 3:00 PM EDT HPI: Emily [...] understanding. All pertinent portions of the clinical logistics support documentation was reviewed and agree. DANIELLE Gimenez I have reviewed the findings of the clinical logistics support and agree with their assessment. DANIELLE Gimenez Ortho Nurse - Established Patient Intake Room#: 5 Patient is S/P L knee medial/partial revision to TKA. Patient using walker today and penelope hose are in place. She states the worse pain is at HS while trying to sleep. Sitting pain 4/10 Walking pain is 5/10 Date: 02/22/2023 3:16 PM Patient: Emily Macias MR#: [id number] : 1960 Age: 62 y.o. Referring Physician: [...] daily. 84 capsule 0 Cholecalciferol 250 MCG (13209 UT) capsule capsule Take by mouth daily. [...] by Nasal route once for 1 dose. [place] into the nose as directed. Call 911. If no response in 2 minutes use a new nasal spray in other nostril. Repeat until help arrives. 1Each [address] Omepraz[address] tablet Take by mouth daily. oxyCODONE 5 MG tablet Take 1-2 tabs po q 4-6 hours prn pain. Wean as tolerated. 20 tablet 0 Pancrelipase, Yfb-Rtql-Gzyz, (CREON PO) Take 36,000 Units by mouth. [...] 84 capsule, Rfl: 0 Cholecalciferol 250 MCG (95248 UT) capsule capsule, Take by mouth daily., [...] by Nasal route once for 1 dose. [place] into the nose as directed. Call 911. [...] tolerated., Disp: 20 tablet, Rfl: 0 Pancrelipase, Elh-Muol-Azbj, (CREON PO), Take 36,000 Units by mouth. [...] zanaflex [tizanidine], and vancomycin. documented in this [facility]05-10-20[facility] Evaluation note* Encounter Date Diagnosis Assessment Notes Treatment Notes Treatment Clinical Notes January, Alternating constipation and diarrhea (ICD-10 - R19.8) [employer] Other 05-02-2023 Evaluation note* Encounter Date Diagnosis [...] of Farxiga and pt will trial those. [employer] Other 04-24-2023 Evaluation note* Encounter Date Diagnosis [...] scan in October of last year in [place], following a colonoscopy that was done in September Start Mesalamine Dec, Alternating constipation and diarrhea (ICD-10 - R19.8) Start low fod map diet Start probiotics [employer] Other 03-23-2023 History of Present illness Narrative* Paulo Cooper, MORGAN - 11/30/2022 1:30 PM EDT Ortho [...] 11/30/2022 2:13 PM Patient: Emily Macias MR#: [id number] : 1960 Age: 61 y.o. Referring Physician: Self, Self Insurance: Payor: MEDICARE AETSkyword HMO OR PPO / Plan: MEDICARE AETSkyword HMO / Product Type: *No Product type* [...] [x]cane, []bracing Are you followed by a dining room cashier? [] [x] Name: Are you followed by pain management? [] [x] Name: Are you followed by any other specialists? [x] [] Name: RA Dr Felipa Santana Outpatient Medications Prior to Visit Medication Sig Dispense Refill Ascorbic Acid 1000 MG tablet Take 1 tablet by mouth daily. B Complex Vitamins (B COMPLEX 1 PO) Take by mouth. Biotin 76994 MCG tablet Take by mouth. Cholecalciferol 250 MCG (50573 UT) capsule capsule Take by mouth. Cobalamin [...] Take by mouth., Disp: , Rfl: Biotin 49148 MCG tablet, Take by mouth., Disp: , Rfl: Cholecalciferol 250 MCG (16298 UT) capsule capsule, Take by mouth., Disp: [...] symptoms. She has history of partial medial [place] uni knee on 08/13/[address] Lazar. [...] left knee. She has a medial partial [place] uni-arthroplasty in place with severe adjacent patellofemoral arthritis. IMPRESSION: 1.) History of left partial medial [place] uni knee on 08/13/[address] Lazar. [...] conversion from uni to total for optimal mcfp management. We have discussed in great detail [...] of limb, and ultimately loss of life. watermaster expectations, risks and general implant survivorship were also discussed. Despite these risks, the patient would liketo proceed with surgical planning. Today, we will initiate the pre-surgical process including nasalMRSA screening, scheduling an appointment for [facility] and the potential surgical date, andreviewing and [...] Take by mouth., Disp: , Rfl: Biotin 16497 MCG tablet, Take by mouth., Disp: , Rfl: Cholecalciferol 250 MCG (34759 UT) capsule capsule, Take by mouth., Disp: [...] migraines Zanaflex [Tizanidine] Hallucination documented in this [facility]01-31-20[facility] Evaluation note* Encounter Date Diagnosis Assessment Notes Treatment Notes Treatment Clinical Notes Sep, Fibromyalgia (ICD-10 - M79.7) handicap placard rx handwritten Sep, Type 2 diabetes mellitus with hyperglycemia, without long-term current use of insulin (ICD-10 - E11.65) good readings on home meter with present meds. Sep, Positive ADRI (antinuclear antibody) (ICD-10 - R76.8) Suggested getting on cancellation list at Rheumatology [employer] Other 01-13-2023 Evaluation note* Encounter Date Diagnosis Assessment Notes Treatment Notes Treatment Clinical Notes Sep, Positive ADRI (antinuclear antibody) (ICD-10 - R76.8) Sep, Fibromyalgia (ICD-10 - M79.7) [employer] Other 01-04-2023 Evaluation note* Encounter Date Diagnosis Assessment Notes Treatment Notes Treatment Clinical Notes Sep, Abdominal cramping (ICD-10 - R10.9) Sep, Type 2 diabetes mellitus with hyperglycemia, without long-term current use of insulin (ICD-10 - E11.65) advised holding or decreasing dose of ozempic to 0.25/week as this could relate to GI side effects [employer] Other 10-31-2022 NotePROCEDURE: XR TIB_FIB RT 2V COMPARISON: 08/24/2021 HISTORY: Pain in lower limb FINDINGS: BONES:No acute fracture or dislocation. Degenerative changes of the knee and ankle. Enthesopathic spurring of the calcaneus SOFT TISSUES:Negative. No visible soft tissue swelling. EFFUSION:None visible. OTHER: Negative. IMPRESSION: Osteoarthritis Electronically authenticated by: WANDA DIANE Date: 2022-07-10 13:36[facility]06-29-2022 NoteCONSULTATION CONSULTATION DATE: 03/08/2022 HISTORY OF PRESENT [...] of pain. 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 [...] care and would like to move forward. [facility] Signed and Approved by: SABINA DELGADILLO . 03/09/2022 13:38:00[facility] note* Diagnosis Pain in prosthetic joint, sequela- Primary [facility] noteNo InformationNort C[employer] Other Evaluation note* Diagnosis Hx of total knee arthroplasty, left- Primary [facility] noteNo assessment information [facility] Work Phone: Evaluation note* Diagnosis Post-op pain- Primary Other acute postoperative pain Pain in prosthetic joint, subsequent encounter [facility]* Diagnosis Hx of total knee arthroplasty, left- Primary [facility]* Diagnosis Hx of total knee arthroplasty, left- Primary Pain in prosthetic joint, subsequent encounter documented in this encounter [facility] SystemHistory general Narrative - Reported* Type Description [...] diabetes divya itus with hyperglycemia, unspecified whether mcfp insulin use Medical History Fitzpatrick splints, right, [...] AND ADENOIDECTOMY Hospitalization History mono Hospitalization History [employer] Other History general Narrative - Reported* Type [...] diabetes divya itus with hyperglycemia, unspecified whether technician terminal and repeater insulin use Medical History Fitzpatrick splints, right, [...] 01/29/2023 Hospitalization History mono Hospitalization History menegitis [employer] Other Reason for referral (narrative)* Consultation (Routine) - Patient to Arrange Specialty Diagnoses / Procedures Referred By Westley finnegan Referred To Contact Physical Therapy Diagnoses Hx of total knee arthroplasty, left Radha Asif APRN-CNP [address] [place] [address] Referral ID Status Reason Start Date Expiration Date V isits Requested Visits Authorized [id number] Patient to Arrange 02/22/2023 03/18/2024 1 1 Scheduling Instructions . * Diagnostic X-Ray (Routine) - New Request Specialty Diagnoses / Procedures Referred By Westley finnegan Referred To Contact Diagnoses Hx of total knee arthroplasty, left Procedures XR KNEE LEFT 3 VIEWS Radha Asif APRN-CNP [address] [place] [address] Referral ID Status Reason Start Date Expiration Date V isits Requested Visits Authorized [id number] New Request 02/20/2023 03/16/2024 1 1 [facility] Purpose Family History Relationship Condition Age at Onset Recorded Date/T joaquina brother Heart disease Unknown father Malignant neoplasm Unknown Hypertension Unknown Family history of mental disorder Unknown mother Malignant neoplasm Unknown Diabetes mellitus Unknown Heart disease Unknown Advance Directives Latest Code Status on File Code Status Date Activated Date Inactivated Comments Full Code 01/29/2023 4:58 PM Advance Directive Response Recorded Date/ Time Advance Directives No May 01, 2023 3:43pm Date Activated Date Inactivated Comments 01/29/2023 4:58 PM Advance Directive Response Recorded Date/ Time Advance Directives No May 01, 2023 2:43pm Reason for Referral Reason 12/28/22 Normal co lonoscopy last summer - continues to have GI issues. Diagnosis 1 Abdominal cramping ( R10.9) Referral Organization [facility] [employer] reginaldo Referring Provider First Name Netta Referring Provider Last Name Lindsay Referring Provider Specialty [facility] [employer] Referred Organization [facility] Referred Provider Ismael Early Referred Address [address] [place] [phone] Referred Provider Specialty Gastroentero logy Referral Priority Routine Referral Appointment Date 2022-12-28 General Notes Sonali Cortez 10:30:02 AM >received today, notes locked and referral faxed Sonali Cortez 09/25/2022 10:48:23 AM >pt scheduled Reason 11/21/22 See phone note - 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 I do not have a copy of his labs. Diagnosis 1 Positive ADRI (antinu clear antibody) (R76.8) Referral Organization [facility] [employer]do Referring Provider First Name Netta Referring Provider Last Name Montoya Referring Provider Specialty Family [facility] Referred Organization [facility] Referred Provider Cara Leo Referred Address [address] Munait benny [place],[address] Referred Provider Specialty Rheumatology Referral Priority Routine Referral Appointment Date 2022-11-21 General Notes JatinkaleeSonali 09:22:28 AM >received today, notes attached and ins card attached. will call pt to see who she saw in [place] to get labs. Sonali Cortez 09/25/2022 10:37:57 AM >spoke with patient and was provided Dr. Balbuena phone number [phone] to request labs. told patient I would [...] XR BONE LENGTH STUDY Sagar Krause MD [address] [place] [address] Referral ID Status Reason Start Date Expiration Date V isits Requested Visits Authorized [id number] New Request 11/24/2022 12/19/2023 1 1 Specialty Diagnoses / Procedures Referred By Contac t Referred To Contact Diagnoses Pain in prosthetic joint, sequela Procedures XR KNEE LEFT 3 VIEWS Sagar Krause MD [address] [place] [address] Referral ID Status Reason Start Date Expiration Date V isits Requested Visits Authorized [id number] New Request 11/24/2022 12/19/2023 1 1 Specialty Diagnoses / Procedures Referred By Contac t Referred To Contact Diagnoses Post-op pain Procedures XR KNEE LEFT 3 VIEWS Sagar Krause MD [address] [place] [address] Referral ID Status Reason Start Date Expiration Date V isits Requested Visits Authorized [id number] New Request 08/06/2023 08/30/2024 1 1 Specialty Diagnoses / Procedures Referred By Contac t Referred To Contact Diagnoses Hx of total knee arthroplasty, left Procedures XR KNEE LEFT 3 VIEWS Radha 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, 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 [address] [place] [address] Referral ID Status Reason Start Date Expiration Date V isits Requested Visits Authorized [id number] New Request 12/25/2023 01/18/2025 1 1 Specialty Diagnoses / Procedures Referred By Contac t Referred To Contact Diagnoses Hx of total knee arthroplasty, left Procedures XR KNEE LEFT 3 VIEWS Sagar Krause MD [address] [place] [address] Referral ID Status Reason Start Date Expiration Date V isits Requested Visits Authorized [id number] New Request 02/14/2024 03/10/2025 1 1 Chief Complaint and Reason for Visit Chief Complaint Abdominal Cramping, EPI Chief Complaint Abdominal Cramping, EPI Low back pain Chief Complaint Admit Date LUIS/ 30 MINS July 17, 2024 1 :45pm talk about blood sugars July 29 024 9:30am One month follow up August 29, 2024 10:41am R14.0 R10.9 R19.8 R11.0 August 29, 2 024 11:47am 1 month follow up September 30, 2024 1 :49pm R19.7 R15.9 September 30, 2024 2 :58pm Reason for Visit Admit Date Chronic insomnia July 17, 2024 1 :45pm Depression July 17, 2024 1 :45pm Excessive daytime sleepiness July 1:45pm 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, 2024 1 :45pm Hypothyroidism July 17, 2024 1 :45pm Intolerance to BiPAP/CPAP July 17, 2024 1:45pm LUIS (obstructive sleep apnea) July 172023 1:45pm Restless leg syndrome July 17, 2024 1:45pm Vitamin B12 deficiency July 17 1:45pm Type 2 diabetes mellitus with hyperglyce [facility] July 29, 2024 9:30am Abdominal cramping August 29, 2024 10:41am Bloating August 29, 2024 10:41am GERD (gastroesophageal reflux disease) D ecember 2023 10:41am History of pancreatitis August 29 10:41am Irritable bowel syndrome with constipati on and diarrhea August 29, 2024 10:41am Nausea August 29, 2024 10:41am Pancreatic insufficiency August 29, 2024 10:41am Abdominal pain September 30, 2024 1 :49pm Bloating September 30, 2024 1 :49pm GERD (gastroesophageal reflux disease) J anuary 2024 1:49pm Irritable bowel syndrome with constipati on and diarrhea September 30, 2024 1:49pm Nausea September 30, 2024 1 :49pm Chief Complaint Admit Date talk about blood sugars July 29 9:30am One month follow up August 29, 2024 10:41am R14.0 R10.9 R19.8 R11.0 August 29 11:47am 1 month follow up September 30, 2024 1 :49pm R19.7 R15.9 September 30, 2024 2 :58pm LUIS/ 3 MONTHS October 21, 2024 8:57am Reason for Visit Admit Date Type 2 diabetes mellitus with hyperglyce [facility] July 29, 2024 9:30am Abdominal cramping August 29, 2024 10:41am Bloating August 29, 2024 10:41am GERD (gastroesophageal reflux disease) D ecember 2023 10:41am History of pancreatitis August 29 10:41am Irritable bowel syndrome with constipati on and diarrhea August 29, 2024 10:41am Nausea August 29, 2024 10:41am Pancreatic insufficiency August 29, 2024 10:41am Abdominal pain September 30, 2024 1 :49pm Bloating September 30, 2024 1 :49pm GERD (gastroesophageal reflux disease) J anuary 2024 1:49pm Irritable bowel syndrome with constipati on and diarrhea September 30, 2024 1:49pm Nausea September 30, 2024 1 :49pm Chronic insomnia October 21, 2024 8:57am Depression October 21, 2024 8:57am Excessive daytime sleepiness October 212024 8:57am 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, 2024 8:57am Hypothyroidism October 21, 2024 8:57am Intolerance to BiPAP/CPAP October 21, 2024 8:57am LUIS (obstructive sleep apnea) October 112024 8:57am Restless leg syndrome October 21 8:57am Vitamin B12 deficiency October 21 8:57am Additional Source Comments INFORMATION SOURCE (unrecogn ized section and content) DATE CREATED AUTHOR 09/08/2021 [facility] DATE CREATED AUTHOR AUTHOR'S ORGANIZ ATION 01/23/2023 [facility] DATE CREATED AUTHOR AUTHOR'S ORGANIZ ATION 02/29/2024 [facility] DATE CREATED AUTHOR AUTHOR'S ORGANIZ ATION 09/22/2024 [facility] DATE CREATED AUTHOR AUTHOR'S ORGANIZ ATION 09/23/2024 [facility] DATE CREATED AUTHOR AUTHOR'S ORGANIZ ATION 09/23/2024 [facility] DATE CREATED AUTHOR AUTHOR'S ORGANIZ ATION 10/02/2024 [facility] REASON FOR VISIT (unrecogniz ed section and content) Specialty Diagnoses / Procedures Referred By Contac t Referred To Contact Diagnoses Pain in prosthetic joint, sequela Procedures XR BONE LENGTH STUDY Sagar Krause MD [address] [place] [id number] Referral ID Status Reason Start Date Expiration Date V isits Requested Visits Authorized [id number] New Request 11/24/2022 12/19/2023 1 1 Reason Comments Pain Reason Comments Surgical Follow-up Specialty Diagnoses / Procedures Referred By Contac t Referred To Contact Diagnoses Post-op pain Procedures XR KNEE LEFT 3 VIEWS Sagar Krause MD [address] [place] [id number] Referral ID Status Reason Start Date Expiration Date V isits Requested Visits Authorized [id number] New Request 08/06/2023 08/30/2024 1 1 Reason Comments Pain Specialty Diagnoses / Procedures Referred By Contac t Referred To Contact Diagnoses Hx of total knee arthroplasty, left Procedures XR KNEE LEFT 3 VIEWS Brandee Radha, 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 [address] [place] [address] Referral ID Status Reason Start Date Expiration Date V isits Requested Visits Authorized [id number] New Request 12/25/2023 01/18/2025 1 1 Reason Comments Follow-up Specialty Diagnoses / Procedures Referred By Contac t Referred To Contact Diagnoses Hx of total knee arthroplasty, left Procedures XR KNEE LEFT 3 VIEWS Sagar Krause MD [address] [place] [address] Referral ID Status Reason Start Date Expiration Date V isits Requested Visits Authorized [id number] New Request 02/14/2024 03/10/2025 1 1 Care Teams (unrecognized sec tion and content) Butcher Assistant Relationship Specialty Start Date End Date Netta Montoya MD [address] [place] [phone] PCP - General Family Medicine 10/20/22 Butcher Assistant Relationship Specialty Start Date End Date Netta Montoya MD [address] [place] [phone] PCP - General Family Medicine 10/20/22 Butcher Assistant Relationship Specialty Start Date End Date Netta Montoya MD [address] [place] [phone] PCP - General Family Medicine 10/20/22 Team Status: Active Member Role Status Dates Netta Montoya MD Primary Care Provider Active Team Status: Inactive Member Role Status Dates Siva Ron MD Attending Provider Active Netta Montoya MD Primary Care Provider Active Team Status: Inactive Member Role Status Dates Netta Montoya MD Primary Care Provider Active Cara Leo MD Attending Provider Active Butcher Assistant Relationship Specialty Start Date End Date Netta Montoya MD [address] [place] [phone] PCP - General Family Medicine 10/20/22 Butcher Assistant Relationship Specialty Start Date End Date Netta Montoya MD [address] [place] [phone] PCP - General Family Medicine 10/20/22 Butcher Assistant Relationship Specialty Start Date End Date Netta Montoya MD [address] [place] [phone] PCP - General Family Medicine 10/20/22 Butcher Assistant Relationship Specialty Start Date End Date Netta Montoya MD [address] [place] [phone] PCP - General Family Medicine 10/20/22 Team Status: Inactive Member Role Status Dates Netta Montoya MD Primary Care Provider Active Start: July 17, 2024 End: July 17, 2024 Wanda Fonseca MD Attending Provider Active S tart: July 17, 2024 End: July 17, 2024 Team Status: Inactive Member Role Status Dates Netta Montoya MD Primary Care Provide r, Attending Provider Active Start: July 29, 2024 End: July 29, 2024 Team Status: Inactive Member Role Status Dates Netta Montoya MD Primary Care Provider Active Start: August 29, 2024 End: August 29, 2024 Jb Grady APRN Attending Provider Active Start: August 29, 2024 End: August 29, 2024 Team Status: Inactive Member Role Status Dates Netta Montoya MD Primary Care Provider Active Start: September 30, 2024 End: September 30, 2024 Jb Grady APRN Attending Provider Active Start: September 30, 2024 End: September 30, 2024 Team Status: Inactive Member Role Status Dates Netta Montoya MD Primary Care Provider Active Start: October 21, 2024 End: October 21, 2024 Cristina Irene NP Attending Provider Active Start: October 21, 2024 End: October 21, 2024 Goals (unrecognized section and content) Goals may be documented in a n alternate section FOR RECORDS PERTAINING TO PATIENTS WHO ARE [...] BE BASED ON THE PRIMARY CLINICAL RECORDS. [facility] [employer] [facility]. provides no warranty or guarantee of the accuracy or completeness of information in this document.
[2024-11-10 08:40] VITALS: BP 127/74; PULSE 89; TEMP 36.1; O2SAT 97
[2024-11-10 08:47] LABS: Glucometer 185 mg/dL (74-106)
[2024-11-10 09:22] VITALS: BP 116/64; PULSE 82; O2SAT 96
[2024-11-10 09:24] VITALS: PULSE 86; O2SAT 97
[2024-11-10 09:25] VITALS: BP 122/62
--- NOTE | 2024-11-10 09:25 | W.PM.PROCNOT ---
Date of procedure: 11/10/24 Pre-op diagnosis: Pain due to bilateral sacroiliitis Post-op diagnosis: same as pre-op Procedure: Procedure: Bilateral sacroiliac joint injection Medications: Bupivacaine 0.25% 3cc, depomedrol 40mg x2 After informed consent was obtained, the patient was brought to the medical procedure unit and placed in the prone position, when a timeout was completed verifying correct patient, procedure, site, positioning, implant, and/or special equipment.? The skin overlying the area was prepped and draped in standard sterile fashion using alcohol.? A 25-gauge needle was inserted towards the left sacroiliac joint under direct fluoroscopic imaging.? Needle tip was advanced until the joint was encountered.? We instilled a total of 2 mL of solution.? The same procedure was then completed on the right side.? Postoperatively needles were removed.? The patient tolerated the procedure well without complication.? The patient reported reduction in pain symptoms postoperatively. Anesthesia: Local Surgeon: Chandra Edouard Pathology: none sent Condition: stable Disposition: no change
[2024-11-10] MEDS: BUPIVACAINE HCL 0.25% PF 25 MG/10 ML VIAL 2 ML INJ (09:26)
[2024-11-10] MEDS: IOHEXOL 240 MG/ML - 10 ML VIAL 24 MG INJ (09:26)
[2024-11-10] MEDS: METHYLPREDNISOLONE ACETATE 40 MG/ML VIAL INJ (09:26)
[2024-11-10] MEDS: LIDOCAINE HCL 2% 400 MG/20 ML MDV 4 ML INJ (09:26)
== END 2024-11-10 09:31 | disposition home or self-care (01) ==
PROVIDERS: PCP Family Medicine; Visit Provider Anesthesiology
DX: M46.1 Sacroiliitis, not elsewhere classified (principal); M15.0 Primary generalized (osteo)arthritis; Z79.899 Other long term (current) drug therapy
CPT/HCPCS: 27096; 36415; 80053; 82948; 85025; J0665; J1010; Q9966

== ENCOUNTER 2024-11-10 09:35 | Outpatient (OUT) | payer MEDICARE, SELFPAY ==
[2024-11-10 09:45] LABS: Basophils Percent Auto 0.6 % (0.2-2.0); Eosinophils Absolute Auto 0.2 10^3/uL (0.0-0.7); Eosinophils Percent Auto 2.8 % (0.9-7.0); Hematocrit 41.4 % (36.0-48.0); Hemoglobin 13.9 g/dL (12.0-16.0); Immature Granulocytes Abs Auto 0.02 10^3/uL (0.00-0.03); Immature Granulocytes Pct Auto 0.3 % (0.0-0.5); Lymphocytes Percent Auto 27.6 % (20.5-60.0); Mean Corpuscular HGB Conc 33.6 g/dL (29.9-35.2); Mean Corpuscular Hemoglobin 31.1 pg (26.7-34.0); Mean Corpuscular Volume 92.6 fL (81.0-99.0); Mean Platelet Volume 9.7 fL (9.5-13.5); Monocytes Absolute Auto 0.4 10^3/uL (0.3-0.8); Monocytes Percent Auto 5.3 % (1.7-12.0); Neutrophils Absolute Auto 4.6 10^3/uL (1.4-6.5); Neutrophils Percent Auto 63.4 % (43.0-75.0); Platelet Count 255 10^3/uL (150-450); Red Blood Count 4.47 10^6/uL (4.20-5.40); Red Cell Distribution Width 13.3 % (11.0-15.0); White Blood Count 7.2 10^3/uL (4.0-11.0)
--- OUTSIDE RECORDS SUMMARY | 2024-11-10 09:58 | XMS_ITS | CCD ---
Author Organization [facility] CliniSyga Care Team Providers Care Victorian Literature Professor Name Role Phone Netta Montoya Unavailable Siva [...] Care Provider MD Siva Ron Attending Provider [phone] MD Netta Montoya Primary Care Provider MD Cara Leo Attending Provider NETTA MONTOYA Primary Care Unavailable SAGAR KRAUSE [...] Primary Care Unavailable Lindsay LEVIN, Netta Calz[facility] Unava ilable Esha DPM, Janett Govea Attending Unavailab charbel Montoya MD, Netta [facility] Unava ilable Esha DPM, Janett Govea Attending Unavailab charbel Montoya MD, Netta [facility] Unava ilable Silke LEVIN, Chandra Nova Attending Unavailable Silke LEVIN, Chandra Nova Attending Unavailable Lindsay LEVIN, [facility] Unava illaura Montoya MD, Netta [facility] Unava ilable Esha DPM, Janett Govea Attending Unavailab Gopal LEVIN, Netta [facility] Unava ilable Esha DPM, Janett Govea Attending Unavailab charbel Montoya MD, [facility] Unava ilable Esha DPM, Janett Govea [...] Drug Allergy 09-02-20 13 SEVERE HEADACHES [facility] Repository (20 sources) Morphine; Translations: [MORPHINE] Drug Allergy 11-19-19 21 Unknown, Hives [facility] Repository (20 sources) tiZANidine; Translations: [Zanaflex] Drug Allergy 09-02-20 13 Hallucinations [facility] Repository (14 sources) milnacipran; Translations: [MILNACIPRAN] Drug Allergy 02-10-20 17 Headache [facility] (14 sources) tiZANidine; Translations: [TIZANIDINE] Drug Allergy 02-10-20 17 Hallucination [facility] (2 sources) Morphine Drug Allergy [facility] Repository (18 sources) Vancomycin Drug Allergy 01-30-20 23 Hives [facility] (7 sources) Allergies Reconciled Propensity to adverse reactions Unknown [employer] Other (7 sources) Saveraja *PSYCHOTHERAPEU TIC AND NEUROLOGICAL AGENTS Propensity to adverse reactions Unknown [employer] Other (1 source) ALLERGIES NOT ON FILE; Translations: [ALLERGIES NOT ON FILE] Propensity to adverse reactions (disorder) [facility] Repository (2 sources) Saveraja *PSYCHOTHERAPEU TIC AND Allergy to substance 10-24-19 24 [facility] Comment on above: Free Text Allergy: S [...] day with plain water Orally Active amylase 918185 unt / lipase 75882 unt / protease 536322 unt delayed release oral capsule (11 sources) Start: 01-16-2024 take 2 capsules by mouth three times daily at mealtime, then take 1 capsule by mouth four times daily Qvfgsh-Duuthnqs-Yqs lase (Creon) 36,000-114,000- 180,000 unit capsule,delayed release(DR/EC) [...] capsule by mouth four times daily Creon [id number] UNIT 2 capsules three times a day [...] 10 mg oral tablet (2 sources) Biotin 56289 MCG tablet Take by mouth. 0 Active [...] ) Start: 03-23-2023 take 1 capsule by [facility] twice daily Celecoxib 200 MG capsule [...] Lindsay Cm ( ) Cholecalciferol 250 MCG (26932 UT) capsule capsule Take by mouth daily. Active Cholecalciferol 250 MCG (74831 UT) capsule capsule Take by mouth. 0 [...] 9:59am Start: 01-29-2023 take 1 capsule by [facility] twice daily Docusate 100 MG capsule Take 1 capsule by mouth 2 times daily. 60 capsule 01/29/2023 Active take 1 capsule by [facility] twice daily Docusate (Stool Softener) 100 MG capsule Take 1 capsule by mouth 2 times daily. 0 Active estrogens, conjugated (retirement) 0.625 mg/ml vaginal cream (5 sources) Estrogen [...] by Nasal route once for 1 dose. [place] into the nose as directed. Call 911. If no response in 2 minutes use a new nasal spray in other nostril. Repeat until help arrives. 1 Each 01/29/2023 Active [place] 3 (5 sources) [place] 3 Active OneTouch Ultra 2 w/Device (18 [...] 21, 2024 10:00am take [address] [facility] three times daily as needed Oxybutynin Chloride [...] 2 MG/1.5ML as directed Subcutaneous Active Pancrelipase, Bdq-Rvlm-Nwsc, (CREON PO) (7 sources) take 1 tablet by mouth once daily Pancrelipase, Kbf-Gupw-Lije, (CREON PO) Take 36,000 Units by mouth. 2 tablet by mouth with each meal, 1 tablet by mouth with 1 snack daily Active take 1 tablet by mouth once alannah y Pancrelipase, Rjk-Mfjk-Mrul, (CREON PO) Take 36,000 Units by mouth. [...] Formula Probiotic) 10 billion cell capsule Active 11754 MMU CELLS PO Daily April 20, 2024 [...] Softener (15 sources) Stool Softener Active thyroid (CUSTODIAL) (5 sources) Nature-Throid Ac tive Tumeric (2 [...] mg/ml oral solution (2 sources) Phenothiazine, Uncompetitive N-movzkk-B-aspartate Receptor Antagonist, Sigma-1 Agonist Start: 01-23-2024 End: [...] 2024 2:33pm take 1 capsule by mo [facility] every eight hours Dicyclomine HCl 10 MG [...] Provider: Lindsay Conti take 1 tablet by willima every twenty-four hours Levothyroxine Sodium 112 MCG [...] Start: 01-18-2023 take 4 tablets by mo [facility] every twenty-four hours Mesalamine 1.2 GM 4 [...] ankle] Chronic Other aftercare (1 source) Other [facility] (current) drug therapy; Translations: [OTH 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 jejuni and C. coli. Clostridioides difficile tox in B tcdB gene [Presence] in Stool by DAISY with probe deteOrdered By: Jb Grady on 09-30-2024 C. difficile toxin B tcdB gene DAISY+probe Ql (Stl) Clostridioides difficile toxin B tcdB gene [Presence] in Stool by DAISY with probe dete Negative [facility] Comment on above: Testing performed by RT-PCR Clostridium Difficileon 09-11 Clostridium Difficile Negative Normal Negative The Replaced By [facility] Comment on above: Result Comment: Test ing performed by RT-PCR PERFORMED BY: [place] [address] PATHOLOGIST PITCH GATHERER BENNY ARAUJO M.D. Performed By: #### S TCYRPTOAG, GIARDIA #### [facility] , #### CDT, ENT BACT PANEL #### [facility] [address] [place] [address] Cryptosporidium Antigen Stoo kristofer 09-30-2024 Cryptosporidium Antigen Stool Negative Normal Negative The Replaced By [facility] Comment on above: Order Comment: SOURC E OF SPECIMEN: STOOL Performed By: #### S TCYRPTOAG, GIARDIA #### [facility] , #### CDT, ENT BACT PANEL #### [place] [address] [place] Cryptosporidium sp Ag [Prese nce] in Stool by ImmunoassayOrdered By: Jb Grady on 09-30-2024 Cryptosporidium sp Ag IA Ql (Stl) Cryptosporidium sp Ag [Presence] in Stool by Immunoassay Negative [facility] Giardia Lamblia Ag EIA Stool on 09-30-2024 Giardia Lamblia Ag EIA Stool Negative Normal Negative The Replaced By [facility] Comment on above: Order Comment: SOURC E OF SPECIMEN: STOOL Result Comment: Perf ormed at: - [facility] [address] [id number] Nib Adjuster: Tra Bay PhD, Phone: [phone] PERFORMED BY: [place] [address] PATHOLOGIST PITCH GATHERER BENNY ARAUJO M.D. Performed By: #### S TCYRPTOAG, GIARDIA #### [facility] , #### CDT, ENT BACT PANEL #### [address] Giardia lamblia Ag [Presence ] in Stool by ImmunoassayOrdered By: Jb Grady on 09-30-2024 G. lamblia Ag IA Ql (Stl) Giardia lamblia Ag [Presence] in Stool by Immunoassay Negative [facility] Comment on above: Performed at: - [facility] [address] [id number] Director: Tra Bay PhD, Phone: [phone] Salmonellosis BD MaxOrdered By: Jb Grady on 09-30-2024 Salmonella sp spaO gene DAISY+probe Ql (Stl) Salmonella sp spaO gene [Presence] in Stool by DAISY with probe detection Negative [facility] Comment on above: Testing performed by RT-PCR Shigella Tox 1+2 BD MaxOrder ed By: Jb Grady on 09-30-2024 E. coli stx1+stx2 genes DAISY+probe Ql (Stl) Escherichia coli Stx1 and Stx2 toxin stx1+stx2 genes [Presence] in Stool by DAISY with Negative [facility] Shigellosis BD MaxOrdered By : Jb Grady on 09-30-2024 Shigella species+EIEC invasion plasmid antigen H ipaH gene DAISY+probe Ql (Stl) Shigella species+EIEC invasion plasmid antigen H ipaH gene [Presence] in Stool by DAISY Negative [facility] Comment on above: Shigella sp. test in cludes Shigella species and Enteroinvasive E. coli (EIEC). Stool Bacterial Panelon 09-11 Campylobacter Negative Normal Negative [facility] Comment on above: Result Comment: Camp ylobacter test includes C. jejuni and C. coli. Performed By: #### S TCYRPTOAG, GIARDIA #### [facility] , #### CDT, ENT BACT PANEL #### [address] Salmonella Species Negative Normal Negative [facility] Comment on above: Result Comment: Test ing performed by RT-PCR PERFORMED BY: [place] [address] PATHOLOGIST PITCH GATHERER BENNY ARAUJO M.D. Performed By: #### S TCYRPTOAG, GIARDIA #### [facility] , #### CDT, ENT BACT PANEL #### [address] Shiga Toxin (E coli O157+oth) Negative Normal Negative The Replaced By [facility] Comment on above: Performed By: #### S TCYRPTOAG, GIARDIA #### [facility] , #### CDT, ENT BACT PANEL #### [address] Shigella Species Negative Normal Negative [facility] Comment on above: Result Comment: Shig brandy sp. test includes Shigella species and Enteroinvasive E. coli (EIEC). Performed By: #### S TCYRPTOAG, GIARDIA #### [facility] , #### CDT, ENT BACT PANEL #### [address] 36on 09-18-2024 36 LVM for pt to call clinic to schedule consult with Dr. Leavitt for Surgical intervention vs SCS. Please let typewriter aligner or Nayana Crenshaw MA know when scheduled so we may notify [employer] reps. Normal [facility] XR KUBon 08-29-2024 XR KUB [facility] [place] [address] XRay Report Signed Patient: Emily Macias MR#: [id number] : 1960 Acct:[id number] Age/Sex: 63 / F ADM Date: 08/29/24 Loc: XD Room: Type: [facility] Attending Dr: Jb Grady LINK TRAINER Copies to: Jb Grady APRN Ordering Provider: [...] Sims Jr., D.O.08/29/2024 3:27 PM Dictation Location: [facility]- Transcribed By: [facility] 08/29/24 1527 Dictated By: Bar Sims Jr, DO 08/29/24 1526 Signed By: 08/29/24 1527 Normal The Replaced By [facility] HbA1c HPLC (Bld) [Mass fract ion]on 07-29-2024 HbA1c (Bld) [Mass fraction] Hemoglobin A1c/Hemoglobin.total in Blood by HPLC [facility] Estimated glomerular filtrat ion rate (GFR) non- Americanon 07-17-2024 GFR/1.73 sq M.predicted among non-blacks MDRD (S/P/Bld) [Vol rate/Area] Estimated glomerular filtration rate (GFR) non- >=60 mL/min/1.73m 2 [facility] Globulin Calc (S) [Mass/Vol] on 07-17-2024 Globulin (S) [Mass/Vol] Serum globulin measurement by calculation (mass/volume) [facility] Iron binding capacity [Mass/ volume] in Serum or Plasmaon 07-17-2024 Iron binding capacity [Mass/Vol] Iron binding capacity [Mass/volume] in Serum or Plasma 250.0-450.0 [facility] Iron saturation [Mass Fracti on] in Serum or Plasmaon 07-17-2024 Iron saturation [Mass fraction] Iron saturation [Mass Fraction] in Serum or Plasma [facility] Laboratory - Chemistry and C hemistry - challengeon 07-17-2024 Albumin [Mass/Vol] 3.8 g/dL 3.4-5.0 [facility] ALP [Catalytic activity/Vol] 81 U/L 46-116 [facility] ALT [Catalytic activity/Vol] 21 U/L 14-59 [facility] AST [Catalytic activity/Vol] 18 U/L 15-37 [facility] Bilirubin [Mass/Vol] 0.4 mg/dL 0.2-1.0 [facility] Calcium [Mass/Vol] 9.2 mg/dL 8.5-10.1 [facility] Chloride [Moles/Vol] 105 mmol/L 98-107 [facility] CO2 [Moles/Vol] 24.1 mmol/L 21.0-32.0 [facility] Cobalamin (Vitamin B12) [Mass/Vol] 887 pg/mL 232-1245 [facility] Comment on above: Performed at: [address] [id number] Director: Tra Bay PhD, Phone: [phone] Creatinine [Mass/Vol] 0.84 mg/dL 0.55-1.02 [facility] Ferritin [Mass/Vol] 63.0 ng/mL 8.0-252.0 [facility] Free T4 [Mass/Vol] 1.23 ng/dL 0.76-1.46 [facility] GFR/1.73 sq M.predicted MDRD (S/P/Bld) [Vol rate/Area] mL/min/{1.73_m2} >=60 mL/min/1.73m 2 [facility] Glucose [Mass/Vol] 150 mg/dL High 74-106 [facility] Iron [Mass/Vol] 63.0 ug/dL 50.0-170.0 [facility] Potassium [Moles/Vol] 4.2 mmol/L 3.5-5.1 [facility] Protein [Mass/Vol] 7.1 g/dL 6.4-8.2 [facility] Sodium [Moles/Vol] 141 mmol/L 136-145 [facility] TSH Qn 0.749 m[IU]/L 0.358-3.740 [facility] Urea nitrogen [Mass/Vol] 21.0 mg/dL High 7.0-18.0 [facility] Urea nitrogen/Creatinine [Mass ratio] 25.0 mg/mg [facility] No Panel Informationon 07-17 25-Hydroxy Vitamin D Total 80.1 ng/mL [facility] Comment on above: <20 ng/mL Vit D defi cient20-<30 ng/mL Vit D ikeyavbdhafz74-207 ng/mL Vit D sufficient>100 ng/mL Potential Toxicity Serum or plasma albumin/glob ulin mass ratioon 07-17-2024 Albumin/Globulin [Mass ratio] Serum or plasma albumin/globulin mass ratio [facility] Serum or plasma anion gap de terminationon 07-17-2024 Anion gap [Moles/Vol] Serum or plasma an ion gap determination [facility] No Panel Informationon 02-26 Radiology Study observation (narrative) [facility] LARGE JOINT/BURSA INJECTION AND/OR ASPIRATION: L [...] complications The patient was prepped with Chloraprep. [facility] Sagar Krause MD 02/27/2024 1:38 PM [...] MG/ML The patient was prepped with Betadine. [facility] No Panel Informationon 02-20 [facility] Podiatry Office/Clinic Noteo n 01-18-2024 Podiatry [...] remember. Patient relates that they have tried jvcm-fue-[id number] pain relievers, padding, and modification of shoe [...] out of 10 sites as measured with Slinger French monofilament bilateral, otherwise intact Gross motor [...] deep perone (more content not included)... Normal [facility] US Guidance/Localizationon 0 01-18-2024 US Guidance/Localization EXAM: Limited Diagnostic Musculoskeletal Ultrasound [with Ultrasound-Guided Injection of left superficial peroneal nerve at the anterior lateral ankle] CLINICAL HISTORY: Patient has concern for multiple peripheral nerve entrapments. History of left first metatarsophalangeal joint fusion with 3D implant TECHNIQUE: Musculoskeletal Ultrasound with Hydrocapsule e Next Gen unit with [12 MHz][L10-22] [...] Electronically Signed in Other Vendor System) Normal [facility] Podiatry Office/Clinic Noteo n 12-20-2023 Podiatry [...] out of 10 sites as measured with Slinger French monofilament bilateral, otherwise intact Gross motor [...] and barby (more content not included)... Normal [facility] US Guidance/Localizationon 0 12-20-2023 US Guidance/Localization EXAM: Limited Diagnostic Musculoskeletal Ultrasound [with Ultrasound-Guided Injection of left saphenous nerve] CLINICAL HISTORY: Patient has concern for multiple peripheral nerve entrapments. History of left first metatarsophalangeal joint fusion with 3D implant TECHNIQUE: Musculoskeletal Ultrasound with Hydrocapsule e Next Gen unit with [12 MHz][L10-22] [...] Electronically Signed in Other Vendor System) Normal [facility] XR Ankle 3 Views Bilateralon 12-20-2023 [...] Electronically Signed in Other Vendor System) Normal [facility] XR Foot 3 Views Bilateralon 12-20-2023 [...] Electronically Signed in Other Vendor System) Normal [facility] Glucose Glucometer (BldC) [M ass/Vol]Ordered By: Siva Ron on 05-09-2023 Glucose [Mass/Vol] 136 mg/dL [facility] Comment on above: Random Glucose Refer ence Range is dependent on time and content of last meal. Glucose of more than 200 mg/dL in a nonstressed, ambulatory subject supports the diagnosis of Diabetes Mellitus. No Panel InformationOrdered By: Siva Ron on 05-09-2023 Bedside Glucose Comment Glu2: cleaned meter [facility] PANCREATIC ELASTASE FECALon 01-22-2023 Pancreatic Elastase, Fecal 128 ug Elast./g Critically low >200 [facility] Comment on above: Result Comment: Jihan re Pancreatic Insufficiency: <100 Moderate Pancreatic Insufficiency: 100 - 200 Normal: >200 Performed By: #### H PYLORI #### [facility] [address] [address] [address] Irene Cedillo LACTOFERRIN FECAL QUANTon Lactoferrin, Fecal, Quant. <1.00 Normal 0.00-7.24 [facility] Comment on above: Result Comment: Re sults [...] (IBS). Performed By: #### S EDR #### [facility] [address] [address] [address] Irene Cedillo CALPROTECTIN, FECALon 2022 Calprotectin, Fecal 139 ug/g Critically high 0-120 [facility] Comment on above: Result Comment: Conc entration Interpretation Follow-Up <16 - 50 ug/g Normal None >50 -120 ug/g Borderline Re-evaluate in 4-6 weeks >120 ug/g Abnormal Repeat as clinically indicated Performed By: #### H PYLORI #### [facility] [address] [place] [address] Dr. Irene Cedillo PANCREATIC ELASTASE FECALon 01-15-2023 Pancreatic Elastase, Fecal 161 ug Elast./g Critically low >200 [facility] Comment on above: Result Comment: Jihan re Pancreatic Insufficiency: <100 Moderate Pancreatic Insufficiency: 100 - 200 Normal: >200 Performed By: #### A NTI-NICOLLE #### [facility] [address] [address] [address] Irene Cedillo TSHon 01-09-2023 TSH 1.630 uIU/mL Normal 0.358-3.740 [facility] Comment on above: Performed By: #### T SH #### [facility] [address] [place] [address] Dr. Irene Cedillo ANTIHISTIONE ANTIBODIESon Anti-histone Abs 0.5 Units Normal 0.0-0.9 [facility] Comment on above: Result Comment: Nega tive <1.0 Weak Positive 1.0 - 1.5 Moderate Positive 1.6 - 2.5 Strong Positive >2.5 Performed By: #### C K, CRP #### [facility] [address] [place] [address] Dr. Irene Cedillo LARGE JOINT/BURSA INJECTION AND/OR [...] complications The patient was prepped with Betadine. [facility] Radiology Study observation (narrative) [facility] US PELVIS AND TRANSVAGon US PELVIS AND TRANSVAG EXAM: US PELVIS AND TRANSVAG HISTORY: Left lower quadrant pain COMPARISON: None. TECHNIQUE: Pelvic sonography was performed utilizing grayscale and color Doppler technique. FINDINGS/ IMPRESSION: 1. Hysterectomy. 2. Ovaries not visualized. 3. No adnexal mass. 4. No significant free fluid. Electronically authenticated by: BRI BERGER Date: 2022-11-10 15:54 Normal [facility] LUPUS ANTICOAGULANT PROFILEo n 10-27-2022 Anticardiolipin Ab, IgG <10 Normal [facility] Comment on above: Result Comment: Refe rence Range: Negative: <15 Indeterminate: 15 - 20 Low to medium positive: >20 - 80 High positive: >80 Performed By: #### L UPUSAC #### [facility] [address] [address] [address] Irene Cedillo Anticardiolipin Ab, IgM <10 Normal [facility] Comment on above: Result Comment: Refe rence Range: Negative: <13 Indeterminate: 13 - 20 Low to medium positive: >20 - 80 High positive: >80 Performed By: #### L UPUSAC #### [facility] [address] [address] [address] Irene Cedillo APTT 1:1 EARLY INTERVENTION SPECIALIST NIY Normal [facility] Comment on above: Result Comment: Test ing Not Indicated This test was developed and its performance characteristics determined by [facility]. It has not been cleared or approved by the Food and Drug Administration. Performed By: #### L UPUSAC #### [facility] [address] [place] [address] Dr. Irene Cedillo APTT 1:1 Saline NIY Normal [facility] Comment on above: Result Comment: Test ing Not Indicated This test was developed and its performance characteristics determined by [facility]. It has not been cleared or approved by the [place] Food and Drug Administration. Performed By: #### L UPUSAC #### [facility] [address] [address] [address] Irene Cedillo aPTT Coag (Bld) [Time] 23.0 s Normal [facility] Comment on above: Result Comment: This test has not been validated for monitoring unfractionated heparin therapy. aPTT-based therapeutic ranges for unfractionated heparin therapy have not been established. Consider ordering Heparin anti-Xa (unfractionated). Reference Range: 18 years and older: 22.9 - 30.2 Performed By: #### L UPUSAC #### [facility] [address] [place] [address] Dr. Irene Cedillo Beta-2 Glycoprotein I, IgA <10 Normal [facility] Comment on above: Result Comment: The reference interval reflects a 3SD or 99th percentile interval. Reference Range: Negative: <26 Performed By: #### L UPUSAC #### [facility] [address] [place] [address] Dr. Irene Cedillo Beta-2 Glycoprotein I, IgG <10 Normal [facility] Comment on above: Result Comment: The reference interval reflects a 3SD or 99th percentile interval. Reference Range: Negative: <21 Performed By: #### L UPUSAC #### [facility] [address] [place] [address] Dr. Irene Cedillo Beta-2 Glycoprotein I, IgM <10 Normal [facility] Comment on above: Result Comment: The reference interval reflects a 3SD or 99th percentile interval. Reference Range: Negative: <33 Performed By: #### L UPUSAC #### [facility] [address] [address] [address] Irene Cedillo DRVVT Confirm Seconds NIY Normal [facility] Comment on above: Result Comment: Test ing Not Indicated Performed By: #### L UPUSAC #### [facility] [address] [place] [address] Dr. Irene Cedillo DRVVT Ratio NIY Normal [facility] Comment on above: Result Comment: Test ing Not Indicated Performed By: #### L UPUSAC #### [facility] [address] [address] [address] Irene Cedillo DRVVT Screen Seconds 33.2 sec Normal [facility] Comment on above: Result Comment: Refe rence Range: <= 47.0 Performed By: #### L UPUSAC #### [facility] [address] [place] [address] Dr. Irene Cedillo Hexagonal Phospholipid Neutral 0 sec Normal [facility] Comment on above: Result Comment: This value is NEGATIVE. This is a qualitative assay and is therefore reported as positive for lupus anticoagulant or negative. The quantitative value is provided as an aid in diagnosis. Reference Range: 0 - 11 Performed By: #### L UPUSAC #### [facility] [address] [place] [address] Dr. Irene Cedillo INR Coag (PPP) [Relative time] 0.9 {INR} Normal [facility] Comment on above: Result Comment: Refe rence Range: >1 month: 0.9 - 1.2 Performed By: #### L UPUSAC #### [facility] [address] [place] [address] Dr. Irene Cedillo LAC Interpretation Comment Normal [facility] [place] Comment on above: Result Comment: A arelis pus anticoagulant is not detected. All antiphospholipid antibodies evaluated are normal. As antibody titers may fluctuate with time, repeat testing may be indicated. Please contact [facility] if further clarification is needed. Performed By: #### L UPUSAC #### [facility] [address] [place] [address] Dr. Irene Cedillo Platelet Neutralization 0.0 sec Normal [facility] Comment on above: Result Comment: Refe rence Range: 0.0 - 3.0 This test was developed and its performance characteristics determined by [facility]. It has not been cleared or approved by the Food and Drug Administration. Performed By: #### L UPUSAC #### [facility] [address] [place] [address] Dr. Irene Cedillo PT Coag (PPP) [Time] 10.0 s Normal [facility] Comment on above: Result Comment: Refe rence Range: 18 years and older: 9.1 - 12.0 Performed By: #### L UPUSAC #### [facility] [address] [place] [address] Dr. Irene Cedillo Thrombin Time 15.5 sec Normal [facility] Comment on above: Result Comment: Refe rence Range: 0.0 - 23.0 Performed By: #### L UPUSAC #### [facility] [address] [place] [address] Dr. Irene Cedillo ADRI by IFAon 10-23-2022 Antinuclear Antibodies, IFA Positive Abnormal [facility] Comment on above: Result Comment: Nega tive <1:80 Borderline 1:80 Positive >1:80 Performed By: #### T SH #### [facility] [address] [place] [address] Dr. Irene Cdeillo Centriole Pattern Normal [facility] Comment on above: Performed By: #### T SH #### [facility] [address] [place] [address] Dr. Irene Cedillo Centromere Pattern Normal [facility] Comment on above: Performed By: #### T SH #### [facility] [address] [place] [address] Dr. Irene Cedillo Homogeneous Pattern 1:320 Critically high [facility] Comment on above: Result Comment: ICAP nomenclature: AC-1 Performed By: #### T SH #### [facility] [address] [place] [address] Dr. Irene Cedillo Midbody Pattern Normal [facility] Comment on above: Performed By: #### T SH #### [facility] [address] [place] [address] Dr. Irene Cedillo Note: Comment Normal [facility] Comment on above: Result Comment: [...] titers Nucleosomes, Histones Drug-induced SLE Speckled Sm, DISPLAY SPECIALIST, SCL-70, SLE,MCTD,PSS (diffuse form), SS-A/SS-B Sjogrens Nucleolar SCL-70, PM-1/SCL High titers Scleroderma, PM/DM Centromere Centromere PSS (limited form) w/Crest syndrome variable Nuclear Dot [id number] Primary Biliary Cirrhosis Nuclear GP210, Primary Biliary Cirrhosis Membrane margie A,B,C Performed By: #### T SH #### [facility] [address] [place] [address] Dr. Irene Cedillo Nuclear Dot Pattern Normal [facility] Comment on above: Performed By: #### T SH #### [facility] [address] [place] [address] Dr. Irene Cedillo Nuclear Membrane Pattern Normal [facility] Comment on above: Performed By: #### T SH #### [facility] [address] [place] [address] Dr. Irene Cedillo Nucleolar Pattern Normal [facility] Comment on above: Performed By: #### T SH #### [facility] [address] [place] [address] Dr. Irene Cedillo PCNA Pattern Normal [facility] Comment on above: Performed By: #### T SH #### [facility] [address] [place] [address] Dr. Irene Cedillo Speckled Pattern Normal [facility] Comment on above: Performed By: #### T SH #### [facility] [address] [place] [address] Dr. Irene Cedillo Spindle Apparatus Pattern Normal [facility] Comment on above: Performed By: #### T SH #### [facility] [address] [place] [address] Dr. Irene Cedillo ALDOLASEon 10-19-2022 Aldolase 3.6 U/L Normal 3.3-10.3 [facility] Comment on above: Performed By: #### T SH #### [facility] [address] [place] [address] Dr. Irene Cedillo ANTI-CENTROMERE B ABon 10-19 Anti-Centromere B Antibodies <0.2 Normal 0.0-0.9 [facility] Comment on above: Performed By: #### S EDR #### [facility] [address] [place] [address] Dr. Irene Cedillo ANTI-DNA DS ABon 10-19-2022 Anti-DNA (DS) Ab Qn 1 IU/mL Normal 0-9 [facility] Comment on above: Result Comment: Nega tive <5 Equivocal 5 - 9 Positive >9 Performed By: #### C CPAB #### [facility] [address] [place] [address] Dr. Irene Cedillo ANTI-NICOLLE-1on 10-19-2022 Anti-Nicolle-1 <0.2 Normal 0.0-0.9 [facility] Comment on above: Performed By: #### A NTI-NICOLLE #### [facility] [address] [place] [address] Dr. Irene Cedillo ANTICHROMATIN ANTIBODIESon 0 10-19-2022 Antichromatin Antibodies 0.5 AI Normal 0.0-0.9 [facility] Comment on above: Performed By: #### C K, CRP #### [facility] [address] [place] [address] Dr. Irene Cedillo ANTIEXTRACTABLE NUCLEAR ANTI BODIESon 10-19-2022 DISPLAY SPECIALIST Antibodies <0.2 Normal 0.0-0.9 [facility] Comment on above: Performed By: #### H PYLORI #### [facility] [address] [place] [address] Dr. Irene Cedillo Performed By: #### C CPAB #### [facility] [address] [place] [address] Dr. Irene Cedillo Murray Antibodies <0.2 Normal 0.0-0.9 [facility] Comment on above: Performed By: #### H PYLORI #### [facility] [address] [place] [address] Dr. Irene Cedillo Performed By: #### C CPAB #### [facility] [address] [place] [address] Dr. Irene Cedillo ANTISCLERODERMA ABon 023 Antiscleroderma-70 Antibodies <0.2 Normal 0.0-0.9 [facility] Comment on above: Performed By: #### A NSCLER #### [facility] [address] [place] [address] Dr. Irene Cedillo C3 and C4 COMPLEMENTon 10-19 Complement C3, Serum 171 mg/dL Critically high 82-167 [facility] Comment on above: Performed By: #### H PYLORI #### [facility] [address] [place] [address] Dr. Irene Cedillo Complement C4, Serum 41 mg/dL Critically high 12-38 [facility] Comment on above: Performed By: #### H PYLORI #### [facility] [address] [place] [address] Dr. Irene Cedillo COMPLEMENT TOTAL (CH50)on Complement, Total (CH50) >60 Normal >41 [facility] Comment on above: Result Comment: [...] Performed By: #### C K, CRP #### [facility] [address] [place] [address] Dr. Irene Cedillo CYCLIC CITRULLINATED PEPTIDE AB (CCP)on 10-19-2022 CCP Antibodies IgG/IgA 3 units Normal 0-19 [facility] Comment on above: Result Comment: Nega tive <20 Weak positive 20 - 39 Moderate positive 40 - 59 Strong positive >59 Performed By: #### C CPAB #### [facility] [address] [place] [address] Dr. Irene Cedillo MITICHONDRIAL (M2) ANTIBODYo n 10-19-2022 Mitochondrial (M2) Antibody <20.0 Normal 0.0-20.0 [facility] Comment on above: Result Comment: Nega tive 0.0 - 20.0 Equivocal 20.1 - 24.9 Positive >24.9 . Mitochondrial (M2) Antibodies are found in 90-96% of patients with primary biliary cirrhosis. Performed By: #### C K, CRP #### [facility] [address] [place] [address] Dr. Irene Cedillo RHEUMATOID FACTORon 10-19-19 23 RA Latex Turbid. <10.0 Normal <14.0 [facility] Comment on above: Performed By: #### C CPAB #### [facility] [address] [place] [address] Dr. Irene Cedillo RPR QUANTon 10-19-2022 Rapid Plasma Reagin, Quant Non-Reactive Normal NonRea<1:1 [facility] Comment on above: Result Comment: Plea se Note: This test does not meet current guidelines for screening and diagnosis of syphilis. This test is intended for following treatment response in patients being treated for syphilis infection. To screen for syphilis infection, a reflex cascade that includes both RPR and a treponema-specific assay should be utilized, such as Treponema pallidum (Syphilis) Screening [place] (423964) or Rapid Plasma Reagin (RPR) Test With Reflex to Quantitative RPR and Confirmatory Treponema pallidum Antibodies (169762). Performed By: #### T SH #### [facility] [address] [place] [address] Dr. Irene Cedillo SJOGRENS ANTIBODIES (Anti SS A/B)on 10-19-2022 Sjogren's Anti-SS-A <0.2 Normal 0.0-0.9 [facility] Comment on above: Performed By: #### S EDR #### [facility] [address] [place] [address] Dr. Irene Cedillo Sjogren's Anti-SS-B <0.2 Normal 0.0-0.9 [facility] Comment on above: Performed By: #### S EDR #### [facility] [address] [place] [address] Dr. Irene Cedillo SMOOTH MUSCLE ANTIBODYon Actin (Smooth Muscle) Antibody 5 Units Normal 0-19 [facility] Comment on above: Result Comment: Nega tive 0 - 19 Weak positive 20 - 30 Moderate to strong positive >30 . Actin Antibodies are found in 52-85% of patients with autoimmune hepatitis or chronic active hepatitis and in 22% of patients with primary biliary cirrhosis. Performed By: #### C K, CRP #### [facility] [address] [place] [address] Dr. Irene Cedillo THYROGLOBULIN ABon Thyroglobulin Antibody <1.0 Normal 0.0-0.9 [facility] Comment on above: Result Comment: Thyr oglobulin Antibody measured by Hydrocapsule Methodology Performed By: #### C CPAB #### [facility] [address] [place] [address] Dr. Irene Cedillo THYROID PEROXIDASE ABon Thyroid Peroxidase (TPO) Ab 11 IU/mL Normal 0-34 [facility] Comment on above: Performed By: #### T SH #### [facility] [address] [place] [address] Dr. Irene Cedillo CBC AUTO DIFFon 10-18-2022 BASO # 0.1 103/ul Normal 0.0-0.1 [facility] Comment on above: Performed By: #### C K, CRP #### [facility] [address] [place] [address] Dr. Irene Cedillo Basophils/100 WBC (Bld) 0.7 % Normal 0.2-2.0 [facility] Comment on above: Performed By: #### C K, CRP #### [facility] [address] [place] [address] Dr. Irene Cedillo EO # 0.2 103/ul Normal 0.0-0.7 [facility] Comment on above: Performed By: #### C K, CRP #### [facility] [address] [place] [address] Dr. Irene Cedillo Eosinophils/100 WBC (Bld) 2.8 % Normal 0.9-7.0 [facility] Comment on above: Performed By: #### C K, CRP #### [facility] [address] [place] [address] Dr. Irene Cedillo Erythrocyte distribution width (RBC) [Ratio] 13.4 % Normal 11.0-15.0 [facility] Comment on above: Performed By: #### C K, CRP #### [facility] [address] [place] [address] Dr. Irene Cedillo Hematocrit (Bld) [Volume fraction] 43.6 % Normal 36.0-48.0 [facility] Comment on above: Performed By: #### C K, CRP #### [facility] [address] [place] [address] Dr. Irene Cedillo Hemoglobin (Bld) [Mass/Vol] 14.1 g/dL Normal 12.0-16.0 [facility] Comment on above: Performed By: #### C K, CRP #### [facility] [address] [place] [address] Dr. Irene Cedillo IG # 0.01 10e3/ul Normal 0.00-0.03 [facility] Comment on above: Performed By: #### C K, CRP #### [facility] [address] [place] [address] Dr. Irene Cedillo IG % 0.1 % Normal 0.0-0.5 [facility] Comment on above: Performed By: #### C K, CRP #### [facility] [address] [place] [address] Dr. Irene Cedillo LYMPH # 2.5 103/ul Normal 1.2-3.8 [facility] Comment on above: Performed By: #### C K, CRP #### [facility] [address] [place] [address] Dr. Irene Cedillo Lymphocytes/100 WBC (Bld) 35.9 % Normal 20.5-60.0 [facility] Comment on above: Performed By: #### C K, CRP #### [facility] [address] [place] [address] Dr. Irene Cedillo MANUAL DIFF REQ NO Normal [facility] Comment on above: Performed By: #### C K, CRP #### [facility] [address] [place] [address] Dr. Irene Cedillo MCH (RBC) [Entitic mass] 29.6 pg Normal 26.7-34.0 [facility] Comment on above: Performed By: #### C K, CRP #### [facility] [address] [place] [address] Dr. Irene Cedillo MCHC (RBC) [Mass/Vol] 32.3 g/dL Normal 29.9-35.2 [facility] Comment on above: Performed By: #### C K, CRP #### [facility] [address] [place] [address] Dr. Irene Cedillo MCV (RBC) [Entitic vol] 91.6 fL Normal 81.0-99.0 [facility] Comment on above: Performed By: #### C K, CRP #### [facility] [address] [place] [address] Dr. Irene Cedillo MONO # 0.4 103/ul Normal 0.3-0.8 [facility] Comment on above: Performed By: #### C K, CRP #### [facility] [address] [place] [address] Dr. Irene Cedillo Monocytes/100 WBC (Bld) 5.2 % Normal 1.7-12.0 [facility] Comment on above: Performed By: #### C K, CRP #### [facility] [address] [place] [address] Dr. Irene Cedillo NEUT # 3.8 103/ul Normal 1.4-6.5 [facility] Comment on above: Performed By: #### C K, CRP #### [facility] [address] [place] [address] Dr. Irene Cedillo Neutrophils/100 WBC (Bld) 55.3 % Normal 43.0-75.0 [facility] Comment on above: Performed By: #### C K, CRP #### [facility] [address] [place] [address] Dr. Irene Cedillo Platelet mean volume (Bld) [Entitic vol] 9.7 fL Normal 9.5-13.5 [facility] Comment on above: Performed By: #### C K, CRP #### [facility] [address] [place] [address] Dr. Irene Cedillo PLT 271 103/ul Normal 150-450 [facility] Comment on above: Performed By: #### C K, CRP #### [facility] [address] [place] [address] Dr. Irene Cedillo RBC 4.76 106/ul Normal 4.20-5.40 [facility] Comment on above: Performed By: #### C K, CRP #### [facility] [address] [place] [address] Dr. Irene Cedillo WBC 6.9 103/ul Normal 4.0-11.0 [facility] Comment on above: Performed By: #### C K, CRP #### [facility] [address] [place] [address] Dr. Irene Cedillo CPKon 10-18-2022 CK [Catalytic activity/Vol] 57 U/L Normal 26-192 [facility] Comment on above: Performed By: #### T SH #### [facility] [address] [place] [address] Dr. Irene Cedillo CRPon 10-18-2022 CRP 0.8 mg/dL Normal <=1.0 [facility] Comment on above: Performed By: #### T SH #### [facility] [address] [place] [address] Dr. Irene Cedillo FREE T4on 10-18-2022 Free T4 [Mass/Vol] 1.07 ng/dL Normal 0.76-1.46 [facility] Comment on above: Performed By: #### C K, CRP #### [facility] [address] [place] [address] Dr. Irene Cedillo PROF 14(COMP METB)on 023 Albumin [Mass/Vol] 3.9 g/dL Normal 3.4-5.0 [facility] Comment on above: Performed By: #### T SH #### [facility] [address] [place] [address] Dr. Irene Cedillo Albumin/Globulin [Mass ratio] 1.1 {ratio} Normal [facility] Comment on above: Performed By: #### T SH #### [facility] [address] [place] [address] Dr. Irene Cedillo ALP [Catalytic activity/Vol] 90 U/L Normal 46-116 [facility] Comment on above: Performed By: #### T SH #### [facility] [address] [place] [address] Dr. Irene Cedillo ALT [Catalytic activity/Vol] 32 U/L Normal 14-59 [facility] Comment on above: Performed By: #### T SH #### [facility] [address] [place] [address] Dr. Irene Cedillo Anion gap [Moles/Vol] 13.8 mmol/L Normal [facility] Comment on above: Performed By: #### T SH #### [facility] [address] [place] [address] Dr. Irene Cedillo AST [Catalytic activity/Vol] 26 U/L Normal 15-37 [facility] Comment on above: Performed By: #### T SH #### [facility] [address] [place] [address] Dr. Irene Cedillo Bilirubin [Mass/Vol] 0.2 mg/dL Normal 0.2-1.0 [facility] Comment on above: Performed By: #### T SH #### [facility] [address] [place] [address] Dr. Irene Cedillo Calcium [Mass/Vol] 9.1 mg/dL Normal 8.5-10.1 [facility] Comment on above: Performed By: #### T SH #### [facility] [address] [place] [address] Dr. Irene Cedillo Chloride [Moles/Vol] 102 mmol/L Normal 98-107 [facility] Comment on above: Performed By: #### T SH #### [facility] [address] [place] [address] Dr. Irene Cedillo CO2 [Moles/Vol] 25.4 mmol/L Normal 21.0-32.0 [facility] Comment on above: Performed By: #### T SH #### [facility] [address] [place] [address] Dr. Irene Cedillo Creatinine [Mass/Vol] 0.64 mg/dL Normal 0.55-1.02 [facility] Comment on above: Performed By: #### T SH #### [facility] [address] [address] [address] Irene Cedillo EGFR-AF [place] >60 Normal >=60 [facility] Comment on above: Performed By: #### T SH #### [facility] [address] [address] [address] Irene Cedillo EGFR-NON AF [place] >60 Normal >=60 [facility] Comment on above: Performed By: #### T SH #### [facility] [address] [address] [address] Irene Cedillo Globulin (S) [Mass/Vol] 3.6 g/dL Normal [facility] Comment on above: Performed By: #### T SH #### [facility] [address] [place] [address] Dr. Irene Cedillo Glucose [Mass/Vol] 132 mg/dL Critically high 74-[address] [facility] Comment on above: Performed By: #### T SH #### [facility] [address] [place] [address] Dr. Irene Cedillo Potassium [Moles/Vol] 4.2 mmol/L Normal 3.5-5.1 [facility] Comment on above: Performed By: #### T SH #### [facility] [address] [place] [address] Dr. Irene Cedillo Protein [Mass/Vol] 7.5 g/dL Normal 6.4-8.2 [facility] Comment on above: Performed By: #### T SH #### [facility] [address] [place] [address] Dr. Irene Cedillo Sodium [Moles/Vol] 137 mmol/L Normal 136-145 [facility] Comment on above: Performed By: #### T SH #### [facility] [address] [place] [address] Dr. Irene Cedillo Urea nitrogen [Mass/Vol] 19.0 mg/dL Critically high 7.0-18.0 [facility] Comment on above: Performed By: #### T SH #### [facility] [address] [place] [address] Dr. Irene Cedillo Urea nitrogen/Creatinine [Mass ratio] 29.7 mg/mg Normal [facility] Comment on above: Performed By: #### T SH #### [facility] [address] [place] [address] Dr. Irene Cedillo PROTIMEon 10-18-2022 INR Coag (PPP) [Relative time] {INR} Normal [facility] Comment on above: Performed By: #### C K, CRP #### [facility] [address] [place] [address] Dr. Irene Cedillo INR GUIDELINES SEE BELOW Normal [facility] Comment on above: Result Comment: JUAN RAMON RED INR: 2.0 - 3.0 CONDITIONS NOT LISTED BELOW 2.5 - 3.5 FOR PROSTHETIC HEART VALVE REPLACEMENT 2.5 - 3.5 RECURRENT THROMBOSIS Performed By: #### C K, CRP #### [facility] [address] [place] [address] Dr. Irene Cedillo PT Coag (PPP) [Time] 9.8 s Normal 9.0-11.6 [facility] Comment on above: Performed By: #### C K, CRP #### [facility] [address] [place] [address] Dr. Irene Cedillo PTTon 10-18-2022 aPTT Coag (Bld) [Time] 26.0 s Normal 22.3-36.2 [facility] Comment on above: Performed By: #### C K, CRP #### [facility] [address] [place] [address] Dr. Irene Cedillo SED RATE WESTERGRENon 2022 SED RATE 42 mm/hr Critically high <=30 [facility] Comment on above: Performed By: #### S EDR #### [facility] [address] [place] [address] Dr. Irene Cedillo TSHon 10-18-2022 TSH 0.718 uIU/mL Normal 0.358-3.740 [facility] Comment on above: Performed By: #### T SH #### [facility] [address] [place] [address] Dr. Irene Cedillo UA RANDOM W/MICROSCOPICon BACTERIA NONE SEEN Normal NONE SEEN [facility] Comment on above: Performed By: #### C CPAB #### [facility] [address] [place] [address] Dr. Irene Cedillo Bilirubin Ql (U) Negative Normal NEGATIVE [facility] Comment on above: Performed By: #### C CPAB #### [facility] [address] [place] [address] Dr. Irene Cedillo CAST NONE SEEN Normal NONE SEEN [facility] Comment on above: Performed By: #### C CPAB #### [facility] [address] [place] [address] Dr. Irene Cedillo Clarity (U) CLEAR Normal CLEAR [facility] Comment on above: Performed By: #### C CPAB #### [facility] [address] [place] [address] Dr. Irene Cedillo Color (U) LT. YELLOW Normal YELLOW [facility] Comment on above: Performed By: #### C CPAB #### [facility] [address] [place] [address] Dr. Irene Cedillo Crystals LM Nom (Urine sed) NONE SEEN Normal NONE SEEN [facility] Comment on above: Performed By: #### C CPAB #### [facility] [address] [place] [address] Dr. Irene Cedillo Epithelial cells LM Ql (Urine sed) NONE SEEN Normal NONE SEEN /RARE [facility] Comment on above: Performed By: #### C CPAB #### [facility] [address] [place] [address] Dr. Irene Cedillo Glucose Ql (U) Negative Normal NEGATIVE [facility] Comment on above: Performed By: #### C CPAB #### [facility] [address] [place] [address] Dr. Irene Cedillo Hemoglobin Ql (U) Negative Normal NEGATIVE [facility] Comment on above: Performed By: #### C CPAB #### [facility] [address] [place] [address] Dr. Irene Cedillo Ketones Ql (U) Negative Normal NEGATIVE [facility] Comment on above: Performed By: #### C CPAB #### [facility] [address] [place] [address] Dr. Irene Cedillo LEUKOCYTES Negative Normal NEGATIVE [facility] Comment on above: Performed By: #### C CPAB #### [facility] [address] [place] [address] Dr. Irene Cedillo MUCOUS NONE SEEN Normal NONE SEEN [facility] Comment on above: Performed By: #### C CPAB #### [facility] [address] [place] [address] Dr. Irene Cedillo Nitrite Ql (U) Negative Normal NEGATIVE [facility] Comment on above: Performed By: #### C CPAB #### [facility] [address] [place] [address] Dr. Irene Cedillo pH (U) 5.5 [pH] Normal 5-9 [facility] Comment on above: Performed By: #### C CPAB #### [facility] [address] [place] [address] Dr. Irene Cedillo RBC 0-2 Normal 0-2 [facility] Comment on above: Performed By: #### C CPAB #### [facility] [address] [place] [address] Dr. Irene Cedillo SPEC GRAVITY 1.020 Normal 1.005-<=1.025 [facility] Comment on above: Performed By: #### C CPAB #### [facility] [address] [place] [address] Dr. Irene Cedillo UA PROTEIN Negative Normal NEGATIVE/ TRACE [facility] Comment on above: Performed By: #### C CPAB #### [facility] [address] [place] [address] Dr. Irene Cedillo Urobilinogen Qn (U) 0.2 {Junior'U}/dL Normal 0.2 - 1. 0 [facility] Comment on above: Performed By: #### C CPAB #### [facility] [address] [place] [address] Dr. Irene Cedillo WBC NONE SEEN Normal NONE SEEN [facility] Comment on above: Performed By: #### C CPAB #### [facility] [address] [place] [address] Dr. Irene Cedillo HLA B 27on 09-21-2022 HLA-B27 Negative Normal [facility] Comment on above: Result Comment: HLA- B*27 Negative B27 allele interpretation for all loci based on IMGT/HLA database version 3.44 This test was developed and its performance characteristics determined by [email or web address]. It has not been cleared or approved by the Food and Drug Administration. [facility] CLIA ID Number [id number] . This test was performed using PCR (Polymerase Chain Reaction)/SSOP (Sequence Specific Oligonucleotide Probes) technique. SBT (Sequence Based Typing) and/or SSP (Sequence Specific Primers) may be used as supplemental methods when necessary. Please contact [facility] Customer Service at if you have any questions. . Director of [facility] Laboratory Dr Kris Salinas, PhD Performed By: #### C CPAB #### [facility] [address] [place] [address] Dr. Irene Cedillo ADRI by IFAon 09-15-2022 Antinuclear Antibodies, IFA Positive Abnormal [facility] Comment on above: Result Comment: Nega tive <1:80 Borderline 1:80 Positive >1:80 Performed By: #### S EDR #### [facility] [address] [place] [address] Dr. Irene Cedillo Centriole Pattern Normal [facility] Comment on above: Performed By: #### S EDR #### [facility] [address] [place] [address] Dr. Irene Cedillo Centromere Pattern Normal [facility] Comment on above: Performed By: #### S EDR #### [facility] [address] [address] [address] Irene Cedillo Homogeneous Pattern 1:160 Critically high [facility] Comment on above: Result Comment: ICAP nomenclature: AC-1 Performed By: #### S EDR #### [facility] [address] [address] [address] Irene Cedillo Midbody Pattern Normal [facility] Comment on above: Performed By: #### S EDR #### [facility] [address] [address] [address] Irene Cedillo Note: Comment Normal [facility] Comment on above: Result Comment: [...] titers Nucleosomes, Histones Drug-induced SLE Speckled Sm, DISPLAY SPECIALIST, SCL-70, SLE,MCTD,PSS (diffuse form), SS-A/SS-B Sjogrens Nucleolar SCL-70, PM-1/SCL High titers Scleroderma, PM/DM Centromere Centromere PSS (limited form) w/Crest syndrome variable Nuclear Dot Sp100,f30-pebehd Primary Biliary Cirrhosis Nuclear GP210, Primary Biliary Cirrhosis Membrane margie A,B,C Performed By: #### S EDR #### [facility] [address] [place] [address] Dr. Irene Cedillo Nuclear Dot Pattern Normal [facility] Comment on above: Performed By: #### S EDR #### [facility] [address] [address] [address] Irene Cedillo Nuclear Membrane Pattern Normal [facility] Comment on above: Performed By: #### S EDR #### [facility] [address] [address] [address] Irene Cedillo Nucleolar Pattern Normal [facility] Comment on above: Performed By: #### S EDR #### [facility] [address] [address] [address] Irene Cedillo PCNA Pattern Normal [facility] Comment on above: Performed By: #### S EDR #### [facility] [address] [place] [address] Dr. Irene Cedillo Speckled Pattern Normal [facility] Comment on above: Performed By: #### S EDR #### [facility] [address] [place] [address] Dr. Irene Cedillo Spindle Apparatus Pattern Normal [facility] Comment on above: Performed By: #### S EDR #### [facility] [address] [place] [address] Dr. Irene Cedillo CYCLIC CITRULLINATED PEPTIDE AB (CCP)on 09-15-2022 CCP Antibodies IgG/IgA 0 units Normal 0-19 [facility] Comment on above: Result Comment: Nega tive <20 Weak positive 20 - 39 Moderate positive 40 - 59 Strong positive >59 Performed By: #### C CPAB #### [facility] [address] [place] [address] Dr. Irene Cedillo RHEUMATOID FACTORon 09-15-19 23 RA Latex Turbid. <10.0 Normal <14.0 [facility] Comment on above: Performed By: #### C K, CRP #### [facility] [address] [place] [address] Dr. Irene Cedillo CBC AUTO DIFFon 09-13-2022 BASO # 0.0 103/ul Normal 0.0-0.1 [facility] Comment on above: Performed By: #### H PYLORI #### [facility] [address] [place] [address] Dr. Irene Cedillo Basophils/100 WBC (Bld) 0.4 % Normal 0.2-2.0 [facility] Comment on above: Performed By: #### H PYLORI #### [facility] [address] [place] [address] Dr. Irene Cedillo EO # 0.3 103/ul Normal 0.0-0.7 [facility] Comment on above: Performed By: #### H PYLORI #### [facility] [address] [place] [address] Dr. Irene Cedillo Eosinophils/100 WBC (Bld) 4.4 % Normal 0.9-7.0 [facility] Comment on above: Performed By: #### H PYLORI #### [facility] [address] [place] [address] Dr. Irene Cedillo Erythrocyte distribution width (RBC) [Ratio] 13.2 % Normal 11.0-15.0 [facility] Comment on above: Performed By: #### H PYLORI #### [facility] [address] [place] [address] Dr. Irene Cedillo Hematocrit (Bld) [Volume fraction] 41.5 % Normal 36.0-48.0 [facility] Comment on above: Performed By: #### H PYLORI #### [facility] [address] [place] [address] Dr. Irene Cedillo Hemoglobin (Bld) [Mass/Vol] 14.0 g/dL Normal 12.0-16.0 [facility] Comment on above: Performed By: #### H PYLORI #### [facility] [address] [place] [address] Dr. Irene Cedillo IG # 0.02 10e3/ul Normal 0.00-0.03 [facility] Comment on above: Performed By: #### H PYLORI #### [facility] [address] [place] [address] Dr. Irene Cedillo IG % 0.3 % Normal 0.0-0.5 [facility] Comment on above: Performed By: #### H PYLORI #### [facility] [address] [place] [address] Dr. Irene Cdeillo LYMPH # 2.5 103/ul Normal 1.2-3.8 [facility] Comment on above: Performed By: #### H PYLORI #### [facility] [address] [place] [address] Dr. Irene Cedillo Lymphocytes/100 WBC (Bld) 34.4 % Normal 20.5-60.0 [facility] Comment on above: Performed By: #### H PYLORI #### [facility] [address] [place] [address] Dr. Irene Cedillo MANUAL DIFF REQ NO Normal [facility] Comment on above: Performed By: #### H PYLORI #### [facility] [address] [place] [address] Dr. Irene Cedillo MCH (RBC) [Entitic mass] 30.0 pg Normal 26.7-34.0 [facility] Comment on above: Performed By: #### H PYLORI #### [facility] [address] [place] [address] Dr. Irene Cedillo MCHC (RBC) [Mass/Vol] 33.7 g/dL Normal 29.9-35.2 [facility] Comment on above: Performed By: #### H PYLORI #### [facility] [address] [place] [address] Dr. Irene Cedillo MCV (RBC) [Entitic vol] 88.9 fL Normal 81.0-99.0 [facility] Comment on above: Performed By: #### H PYLORI #### [facility] [address] [place] [address] Dr. Irene Cedillo MONO # 0.4 103/ul Normal 0.3-0.8 [facility] Comment on above: Performed By: #### H PYLORI #### [facility] [address] [place] [address] Dr. Irene Cedillo Monocytes/100 WBC (Bld) 5.6 % Normal 1.7-12.0 [facility] Comment on above: Performed By: #### H PYLORI #### [facility] [address] [place] [address] Dr. Irene Cedillo NEUT # 4.0 103/ul Normal 1.4-6.5 [facility] Comment on above: Performed By: #### H PYLORI #### [facility] [address] [place] [address] Dr. Irene Cedillo Neutrophils/100 WBC (Bld) 54.9 % Normal 43.0-75.0 [facility] Comment on above: Performed By: #### H PYLORI #### [facility] [address] [place] [address] Dr. Irene Cedillo Platelet mean volume (Bld) [Entitic vol] 9.6 fL Normal 9.5-13.5 [facility] Comment on above: Performed By: #### H PYLORI #### [facility] [address] [address] [address] Irene Cedillo PLT 314 103/ul Normal 150-450 [facility] Comment on above: Performed By: #### H PYLORI #### [facility] [address] [address] [address] Irene Cedillo RBC 4.67 106/ul Normal 4.20-5.40 [facility] Comment on above: Performed By: #### H PYLORI #### [facility] [address] [address] [address] Irene Cedillo WBC 7.3 103/ul Normal 4.0-11.0 [facility] Comment on above: Performed By: #### H PYLORI #### [facility] [address] [place] [address] Dr. Irene Cedillo CRPon 09-13-2022 CRP 0.3 mg/dL Normal <=1.0 [facility] Comment on above: Performed By: #### C K, CRP #### [facility] [address] [place] [address] Dr. Irene Cedillo RENAL FUNCTION PANELon 09-13 Albumin [Mass/Vol] 3.7 g/dL Normal 3.4-5.0 [facility] Comment on above: Performed By: #### R ENAL #### [facility] [address] [place] [address] Dr. Irene Cedillo Calcium [Mass/Vol] 9.3 mg/dL Normal 8.5-10.1 [facility] Comment on above: Performed By: #### R ENAL #### [facility] [address] [place] [address] Dr. Irene Cedillo Chloride [Moles/Vol] 105 mmol/L Normal 98-107 [facility] Comment on above: Performed By: #### R ENAL #### [facility] [address] [place] [address] Dr. Irene Cedillo CO2 [Moles/Vol] 30.5 mmol/L Normal 21.0-32.0 [facility] Comment on above: Performed By: #### R ENAL #### [facility] [address] [address] [address] Irene Cedillo Creatinine [Mass/Vol] 0.64 mg/dL Normal 0.55-1.02 [facility] Comment on above: Performed By: #### R ENAL #### [facility] [address] [address] [address] Irene Cedillo EGFR-AF [place] >60 Normal >=60 [facility] Comment on above: Performed By: #### R ENAL #### [facility] [address] [address] [address] Irene Cedillo EGFR-NON AF [place] >60 Normal >=60 [facility] Comment on above: Performed By: #### R ENAL #### [facility] [address] [place] [address] Dr. Irene Cedillo Glucose [Mass/Vol] 130 mg/dL Critically high 74-106 T [facility] Comment on above: Performed By: #### R ENAL #### [facility] [address] [address] [address] Irene Cedillo Phosphate [Mass/Vol] 3.9 mg/dL Normal 2.6-4.7 [facility] Comment on above: Performed By: #### R ENAL #### [facility] [address] [place] [address] Dr. Irene Cedillo Potassium [Moles/Vol] 4.0 mmol/L Normal 3.5-5.1 [facility] Comment on above: Performed By: #### R ENAL #### [facility] [address] [address] [address] Irene Cedillo Sodium [Moles/Vol] 143 mmol/L Normal 136-145 [facility] Comment on above: Performed By: #### R ENAL #### [facility] [address] [place] [address] Dr. Irene Cedillo Urea nitrogen [Mass/Vol] 16.0 mg/dL Normal 7.0-18.0 [facility] Comment on above: Performed By: #### R ENAL #### [facility] [address] [address] [address] Irene Cedillo SED RATE [facility] 2022 SED RATE 20 mm/hr Normal <=30 [facility] Comment on above: Performed By: #### C K, CRP #### [facility] [address] [address] [address] Irene Cedillo MRI ANKLE LT WO [...] TONY DICKINSON Date: 2022-08-26 09:36 Normal [facility] MG MAMM SCREEN 3D RIAN CADon 08-08-2022 MG MAMM SCREEN 3D RIAN CAD Patient: EMILY MACIAS Exam Date: 08/08/2022 : 1960 Gender:F Ordering : DR. KENDRA MCKINLEY M.D. Admission #: [id number] Family : DR NETTA MONTOYA M.D. Order #: [id number] CLICK HERE TO VIEW EXAM RADIOLOGY REPORT [...] breast cancer at age 78. LOCATION: [facility] BREAST COMPOSITION: Heterogeneously dense,which may [...] M.D. on 08/09/2022 at 15:10 Normal [facility] GLYCOHEMOGLOBIN A1Con 2021 ADA RECOMMENDATION SEE BELOW Normal [facility] Comment on above: Result Comment: ADA RECOMMENDED LIMIT 4.0 - 6.0 ADA THERAPEUTIC TARGET < 7.0 ACTION SUGGESTED > 7.0 Performed By: #### C CPAB #### [facility] [address] [address] [address] Irene Cedillo Glucose [Mass/Vol] 128 mg/dL Normal [facility] Comment on above: Performed By: #### C CPAB #### [facility] [address] [address] [address] Irene Cedillo HbA1c (Bld) [Mass fraction] 6.1 % Normal 4.5-6.2 [facility] Comment on above: Performed By: #### C CPAB #### [facility] [address] [address] [address] Irene Cedillo XR FOOT RIAN MIN [...] PELON ALEXANDRE Date: 2022-07-06 06:21 Normal [facility] OVA AND PARASITE EXAMINATION on 04-13-2022 Ova + Parasite Exam Final report Normal [facility] Comment on above: Result Comment: Thes e results were obtained using wet preparation(s) and trichrome stained smear. This test does not include testing for Cryptosporidium parvum, Cyclospora, or Microsporidia. Performed By: #### S EDR #### [facility] [address] [address] [address] Irene Cedillo Result 1 Comment Normal [facility] Comment on above: Result Comment: No o va, cysts, or parasites seen. . One negative specimen does not rule out the possibility of a parasitic infection. Performed By: #### S EDR #### [facility] [address] [address] [address] Irene Cedillo CALPROTECTIN, FECALon 2021 Calprotectin, Fecal 36 ug/g Normal 0-120 [facility] Comment on above: Result Comment: Conc entration Interpretation Follow-Up <16 - 50 ug/g Normal None >50 -120 ug/g Borderline Re-evaluate in 4-6 weeks >120 ug/g Abnormal Repeat as clinically indicated Performed By: #### C K, CRP #### [facility] [address] [address] [address] Irene Cedillo HELICOBACTER PYLORI AG STOOL on 04-12-2022 H. pylori Stool Ag, EIA Negative Normal Negative [facility] Comment on above: Performed By: #### H PYLORI #### [facility] [address] [place] [address] Dr. Irene Cedillo LACTOFERRIN FECAL QUANTon Lactoferrin, Fecal, Quant. <1.00 Normal 0.00-7.24 [facility] Comment on above: Result Comment: Re sults [...] (IBS). Performed By: #### T SH #### [facility] [address] [place] [address] Dr. Irene Cedillo C. DIFF PCRon 04-08-2022 C. DIFFICILE PCR Negative Normal NEGATIVE [facility] Comment on above: Performed By: #### S EDR #### [facility] [address] [place] [address] Dr. Irene Cedillo GI PANEL (PCR)on 04-08-2022 Adenovirus F 40/41 Not detected Normal NOT DETECTED [facility] Comment on above: Performed By: #### S EDR #### [facility] [address] [place] [address] Dr. Irene Cedillo Astrovirus Not detected Normal NOT DETECTED [facility] Comment on above: Performed By: #### S EDR #### [facility] [address] [place] [address] Dr. Irene Cedillo C. Diff toxin A/B Not detected Normal NOT DETECTED [facility] Comment on above: Performed By: #### S EDR #### [facility] [address] [place] [address] Dr. Irene Cedillo Campylobacter Not detected Normal NOT DETECTED [facility] Comment on above: Performed By: #### S EDR #### [facility] [address] [place] [address] Dr. Irene Cedillo Cryptosporidium Not detected Normal NOT DETECTED [facility] Comment on above: Performed By: #### S EDR #### [facility] [address] [place] [address] Dr. Irene Cedillo Cyclos. Cayetanensis Not detected Normal NOT DETECTED [facility] Comment on above: Performed By: #### S EDR #### [facility] [address] [place] [address] Dr. Irene Cedillo E. Coli O157 Not Applicable Normal Not Applicable [facility] Comment on above: Performed By: #### S EDR #### [facility] [address] [place] [address] Dr. Irene Cedillo E. histolytica Not detected Normal NOT DETECTED [facility] Comment on above: Performed By: #### S EDR #### [facility] [address] [place] [address] Dr. Irene Cedillo EAEC Not detected Normal NOT DETECTED [facility] Comment on above: Performed By: #### S EDR #### [facility] [address] [place] [address] Dr. Irene Cedillo EIEC Not detected Normal NOT DETECTED [facility] Comment on above: Performed By: #### S EDR #### [facility] [address] [place] [address] Dr. Irene Cedillo EPEC Not detected Normal NOT DETECTED [facility] Comment on above: Performed By: #### S EDR #### [facility] [address] [place] [address] Dr. Irene Cedillo ETEC Not detected Normal NOT DETECTED [facility] Comment on above: Performed By: #### S EDR #### [facility] [address] [place] [address] Dr. Irene Cedillo G. Lamblia Not detected Normal NOT DETECTED [facility] Comment on above: Performed By: #### S EDR #### [facility] Laboratory [address] [place] [address] Dr. Irene VIGIL CONTROLS PASSED Normal The [facility] Comment on above: Performed By: #### S EDR #### [facility] Laboratory [address] [address] [address] Irene ACOSTA MITCHEL HEADER GI PANEL BACTERIA Normal T [facility] Comment on above: Performed By: #### S EDR #### [facility] Laboratory [address] [address] [address] Irene CALDERA ECOLI GI PANEL DIARRHEAGEN IC E.COLI / SHIGELLA Normal [facility] Comment on above: Performed By: #### S EDR #### [facility] Laboratory [address] [address] [address] Irene CALDERA INFO SEE BELOW Normal [facility] Comment on above: Result Comment: EAEC - Enteroaggregative E. Coli EPEC- Enteropathogenic E. Coli ETEC- Enterotoxigenic E. Coli lt/st STEC- Shigella-like toxin-producing E. Coli stx1/stx2 EIEC- Shigella/Enteroinvasive E. Coli Performed By: #### S EDR #### [facility] Laboratory [address] [address] [address] Irene CALDERA PARASITES GI PANEL PARASITES Normal The [facility] Comment on above: Performed By: #### S EDR #### [facility] Laboratory [address] [address] [address] Irene CALDERA VIRUS GI PANEL VIRUSES Normal The [facility] Comment on above: Performed By: #### S EDR #### [facility] Laboratory [address] [address] [address] Irene Cedillo Norovirus GI/GII Not detected Normal NOT DETECTED The [facility] Comment on above: Performed By: #### S EDR #### [facility] Laboratory [address] [address] [address] Irene Cedillo P. Shigelloides Not detected Normal NOT DETECTED The [facility] Comment on above: Performed By: #### S EDR #### [facility] Laboratory [address] [address] [address] Irene Cedillo Rotavirus A Not detected Normal NOT DETECTED The [facility] Comment on above: Performed By: #### S EDR #### [facility] Laboratory [address] [place] [address] Dr. Irene Cedillo Salmonella Not detected Normal NOT DETECTED The [facility] Comment on above: Performed By: #### S EDR #### [facility] Laboratory [address] [place] [address] Dr. Ierne Cedillo Sapovirus Not detected Normal NOT DETECTED The [facility] Comment on above: Performed By: #### S EDR #### [facility] Laboratory [address] [place] [address] Dr. Irene Cedillo STEC Not detected Normal NOT DETECTED The [facility] Comment on above: Performed By: #### S EDR #### [facility] Laboratory [address] [place] [address] Dr. Irene Cedillo Vibrio Not detected Normal NOT DETECTED The [facility] Comment on above: Performed By: #### S EDR #### [facility] Laboratory [address] [place] [address] Dr. Irene Cedillo Vibrio Cholera Not detected Normal NOT DETECTED The [facility] Comment on above: Performed By: #### S EDR #### [facility] Laboratory [address] [place] [address] Dr. Irene Cedillo Y. Enterocolitica Not detected Normal NOT DETECTED The [facility] Comment on above: Performed By: #### S EDR #### [facility] Laboratory [address] [place] [address] Dr. Irene Cedillo BUNon 03-27-2022 Urea nitrogen [Mass/Vol] 20.0 mg/dL Critically high 7.0-18.0 [facility] Comment on above: Performed By: #### C K, CRP #### [facility] Laboratory [address] [place] [address] Dr. Irene Cedillo CREATININEon 03-27-2022 Creatinine [Mass/Vol] 0.75 mg/dL Normal 0.55-1.02 [facility] Comment on above: Performed By: #### C K, CRP #### [facility] Laboratory [address] [place], [place] [address] Dr. Irene Cedillo EGFR-AF NORTHERN IRISH >60 Normal >=60 [facility] Comment on above: Performed By: #### C K, CRP #### [facility] Laboratory [address] [place], [place] [address] Dr. Irene Cedillo EGFR-NON AF NORTHER[place] IRISH >60 Normal >=60 The [facility] Comment on above: Performed By: #### C K, CRP #### [facility] Laboratory [id number] Irene Cedillo CT ABD/PELV W CONon [...] and/or use of iterative reconstruction technique. Findings: Storm Door Maker: No acute abnormalities are seen. Liver/Biliary System: [...] CIELO GARCIA Date: 2022-03-27 21:37 Normal The [facility] POINT OF CARE GLUCOSEon 03-10 Glucose [Mass/Vol] 173 mg/dL Critically high 74-106 T he [facility] Comment on above: Performed By: #### C CPAB #### [facility] Laboratory [address] [place] [address] Dr. Irene Cedillo FSHon 02-25-2022 FSH 46.6 mIU/mL Normal [facility] Comment on above: Result Comment: Adul t Female: Follicular phase 3.5 - 12.5 Ovulation phase 4.7 - 21.5 Luteal phase 1.7 - 7.7 Postmenopausal 25.8 - 134.8 Performed By: #### C K, CRP #### [facility] Laboratory [address] [place] [address] Dr. Irene Cedillo LUTEINIZING HORMONE (LH)on 0 02-25-2022 LH 33.3 mIU/mL Normal [facility] Comment on above: Result Comment: Adul t Female: Follicular phase 2.4 - 12.6 Ovulation phase 14.0 - 95.6 Luteal phase 1.0 - 11.4 Postmenopausal 7.7 - 58.5 Performed By: #### H PYLORI #### [facility] Laboratory [address] [address] [address] Irene Cedillo TESTOSTERONE, TOTALon 2021 Testosterone [Mass/Vol] 6 ng/dL Normal 3-67 [facility] Comment on above: Performed By: #### H PYLORI #### [facility] Laboratory [address] [place] [address] Dr. Irene Cedillo THYROID PEROXIDASE ABon 02-08 Thyroid Peroxidase (TPO) Ab <8 Normal 0-34 [facility] Comment on above: Performed By: #### C K, CRP #### [facility] Laboratory [address] [address] [address] Irene Cedillo FREE T3on 02-24-2022 FREE T3 2.47 pg/mlL Normal 2.18-3.98 [facility] Comment on above: Performed By: #### S EDR #### [facility] Laboratory [address] [place] [address] Dr. Irene Cedillo LYME DISEASE AB EIA W REFLEX on 01-31-2022 Lyme Total Antibody,EIA Negative Normal Negative [facility] Comment on above: Result Comment: Lyme Antibody Negative No laboratory evidence of infection with B. burgdorferi (Lyme disease). Negative results may occur in patients recently infected (greater than or equal to 14 days) with B. burgdorferi. If recent infection is suspected, repeat testing on a new sample collected in 7 to 14 days is recommended. Performed By: #### T SH #### [facility] Laboratory [address] [place] [address] Dr. Irene Cedillo CPKon 01-30-2022 CK [Catalytic activity/Vol] 76 U/L Normal 26-192 [facility] Comment on above: Performed By: #### C K, CRP #### [facility] Laboratory [address] [place] [address] Dr. Irene Cedillo CRPon 01-30-2022 CRP 0.4 mg/dL Normal <=1.0 [facility] Comment on above: Performed By: #### C K, CRP #### [facility] Laboratory [address] [place] [address] Dr. Irene Cedillo SED RATE WESTERGRENon 2021 SED RATE 8 mm/hr Normal <=30 The [facility] Comment on above: Performed By: #### H PYLORI #### [facility] Laboratory [address] [address] [address] Irene Cedillo C REACTIVE PROTEINon 021 CRP [Mass/Vol] 9.3 mg/L High 0.0-7.0 The [facility] Comment on above: Performed By: #### 6 [id number] #### [facility] [address] [place] [address], [facility] KNEE LEFT 3 VWSon 09-06-2021 KNEE LEFT 3 [facility] Department of Radiology [address] [place] [id number] ======== Patient Name: EMILY MACIAS : 1960 Sex: F Age: Race: White Pt. Location: Patient Status: Ordered Date: 09/06/2021 1:35:00 PM Completed Date: 09/06/2021 01:56 PM Requesting Provider: KIARA WILLETT Attending Provider: Report Copy To: Signs & Symptoms: M25.562 Pain in left knee I10 History: [place] Comments: Evaluate Exam: KNEE LEFT 3 [facility] ======== KNEE LEFT 3 [facility] 09/06/2021 1:56 PM CLINICAL INDICATIONS: M25.562 [...] above Electronically signed: Olga Murray. Transcribed by: [email or web address], User Resident: Electronically Signed by: OLGA MURRAY @ 09/06/2021 03:09 PM Normal The [facility] Comment on above: Order Comment: Evalu ate KNEE RIGHT 3 [facility] KNEE RIGHT 3 [facility] Department of Radiology [address] [place] [id number] ======== Patient Name: EMILY MACIAS : 1960 Sex: F Age: Race: White Pt. Location: Patient Status: Ordered Date: 09/06/2021 1:35:00 PM Completed Date: 09/06/2021 01:56 PM Requesting Provider: KIARA WILLETT Attending Provider: Report Copy To: Signs & Symptoms: M25.561 Pain in right knee I10 History: [place] Comments: Evaluate Exam: KNEE RIGHT 3 [facility] ======== KNEE RIGHT 3 S 09/06/2021 [...] above Electronically signed: Olga Murray. Transcribed by: [email or web address], User Resident: Electronically Signed by: OLGA MURRAY @ 09/06/2021 03:08 PM Normal The [facility] Comment on above: Order Comment: Evalu ate SEDIMENTATION RATEon 021 SED RATE 7 mm/hr Normal 0-20 [facility] Comment on above: Performed By: #### 5 [id number] #### [address] [address] GIGI [address]ON[address] Vital Signs Date Time Vital Sign Value Performing Clinician Facility 10-21-2024 09:08-0500 Body height 165.1 cm Netta Montoya MD Work Phone: [facility] 10-21-2024 09:08-0500 Body mass index (BMI) [Ratio] 31.9 kg/m2 Netta Montoya MD Work Phone: [phone] [place] [address] 10-21-2024 09:08-0500 Body weight 87.08 kg Netta Montoya MD Work Phone: [phone] [place] [address] 10-21-2024 09:08-0500 Diastolic blood pressure 64 mm[Hg] Netta Montoya MD Work Phone: 2([phone])017-624077 [place] [address] 10-21-2024 09:08-0500 Heart rate 90 /min Netta Montoya MD Work Phone: [facility] 10-21-2024 09:08-0500 SaO2% (BldA) [Mass fraction] 97 % Netta Montoya MD Work Phone: [facility] 10-21-2024 09:08-0500 Systolic blood pressure 107 mm[Hg] Netta Montoya MD Work Phone: [facility] 09-30-2024 13:53-0500 Body height 160.02 cm Netta Montoya MD Work Phone: [facility] 09-30-2024 13:53-0500 Body mass index (BMI) [Ratio] 33.1 kg/m2 Netta Montoya MD Work Phone: [facility] 09-30-2024 13:53-0500 Body weight 84.82 kg Netta Montoya MD Work Phone: [phone] [place] [address] 09-30-2024 13:53-0500 Diastolic blood pressure 70 mm[Hg] Netta Montoya MD Work Phone: [facility] 01-21-2025 13:53-0500 Heart rate 85 /min Netta Montoya MD Work Phone: [facility] 09-30-2024 13:53-0500 Systolic blood pressure 101 mm[Hg] Netta Montoya MD Work Phone: [facility] 08-29-2024 11:03-0500 Diastolic blood pressure 68 mm[Hg] Netta Montoya MD Work Phone: [facility] 08-29-2024 11:03-0500 Heart rate 89 /min Netta Montoya MD Work Phone: [facility] 08-29-2024 11:03-0500 Systolic blood pressure 115 mm[Hg] Netta Montoya MD Work Phone: [facility] 07-29-2024 09:33-0500 Body height 160.02 cm Netta Montoya MD Work Phone: [facility] 07-29-2024 09:33-0500 Body mass index (BMI) [Ratio] 34.3 kg/m2 Netta Montoya MD Work Phone: [facility] 07-29-2024 09:33-0500 Body weight 87.99 kg Netta Montoya MD Work Phone: [facility] 07-29-2024 09:33-0500 Diastolic blood pressure 69 mm[Hg] Netta Montoya MD Work Phone: [facility] 07-29-2024 09:33-0500 Heart rate 75 /min Netta Montoya MD Work Phone: [facility] 07-29-2024 09:33-0500 Systolic blood pressure 101 mm[Hg] Netta Montoya MD Work Phone: [facility] 07-17-2024 13:59-0500 Body height 160.02 cm Netta Montoya MD Work Phone: [facility] 07-17-2024 13:59-0500 Body mass index (BMI) [Ratio] 34.5 kg/m2 Netta Montoya MD Work Phone: [facility] 07-17-2024 13:59-0500 Body weight 88.45 kg Netta Montoya MD Work Phone: [facility] 07-17-2024 13:59-0500 Diastolic blood pressure 69 mm[Hg] Netta Montoya MD Work Phone: [facility] 07-17-2024 13:59-0500 Heart rate 83 /min Netta Montoya MD Work Phone: [facility] 07-17-2024 13:59-0500 SaO2% (BldA) [Mass fraction] 93 % Netta Montoya MD Work Phone: [facility] 07-17-2024 13:59-0500 Systolic blood pressure 117 mm[Hg] Netta Montoya MD Work Phone: [facility] 02-21-2024 13:19-0400 Body height 165.1 cm Sagar Krause MD Work Phone: [facility] 02-21-2024 13:19-0400 Body mass index (BMI) [Ratio] 31.78 kg/m2 Sagar Krause MD Work Phone: [facility] 02-21-2024 13:19-0400 Body temperature 97.11 [degF] Sagar Krause MD Work Phone: [facility] 02-21-2024 13:19-0400 Body weight 86.64 kg Sagar Krause MD Work Phone: [facility] 12-26-2023 13:54-0400 Body height 165.1 cm Radhamo Asif [employer] TRA[employer] Work Phone: [facility] 12-26-2023 13:54-0400 Body mass index (BMI) [Ratio] 33.45 kg/m2 Radha Brandee [employer]INK TRA[employer] Work Phone: [facility] 12-26-2023 13:54-0400 Body weight 91.17 kg Radha Asif [employer]INK TRA[employer] Work Phone: [employer] 08-13-2023 09:30-0500 Body height 161.93 cm Netta Montoya Other [employer] Other 08-13-2023 09:30-0500 Body mass index (BMI) [Ratio] 34.46 kg/m2 Netta Montoya Other [employer] Other 08-13-2023 09:30-0500 Body weight 90.36 kg Netta Montoya Other [employer] Other 08-13-2023 09:30-0500 Diastolic blood pressure 70 mm[Hg] Netta Montoya Other [employer] Other 08-13-2023 09:30-0500 Systolic blood pressure 110 mm[Hg] Netta Montoya Other [employer] Other 08-09-2023 14:48-0500 Body height 165.1 cm Sagar Krause MD Work Phone: [employer] 08-09-2023 14:48-0500 Body mass index (BMI) [Ratio] 33.58 kg/m2 Sagar Krause MD Work Phone: [employer] 08-09-2023 14:48-0500 Body weight 91.54 kg Sagar Krause MD Work Phone: [employer] 04-24-2023 13:30-0400 Body height 161.93 cm Siva Ron Other [employer] Other 04-24-2023 13:30-0400 Body mass index (BMI) [Ratio] 32.52 kg/m2 Siva Ron Other [employer] Other 04-24-2023 13:30-0400 Body weight 85.28 kg Siva Ron Other [employer] Other 04-24-2023 13:30-0400 Diastolic blood pressure 70 mm[Hg] Siva Ron Other [employer] Other 04-24-2023 13:30-0400 Systolic blood pressure 126 mm[Hg] Siva Ron Other [employer] Other 02-22-2023 15:15-0400 Body height 165.1 cm Tebla [employer] Work Phone: [employer] 02-22-2023 15:15-0400 Body mass index (BMI) [Ratio] 31.51 kg/m2 Tebla [employer] TRA[employer] Work Phone: [employer] 02-22-2023 15:15-0400 Body temperature 98.01 [degF] Tebla [employer] Work Phone: [employer] 02-22-2023 15:15-0400 Body weight 85.9 kg Tebla [employer] Work Phone: [employer] 01-09-2023 09:30-0400 Body height 161.93 cm Netta Montoya Other [employer] Other 01-09-2023 09:30-0400 Body mass index (BMI) [Ratio] 33.04 kg/m2 Netta Montoya Other [employer] Other 01-09-2023 09:30-0400 Body weight 86.64 kg Netta Montoya Other [employer] Other 01-09-2023 09:30-0400 Diastolic blood pressure 60 mm[Hg] Netta Montoya Other [employer] Other 01-09-2023 09:30-0400 SaO2% (BldA) [Mass fraction] 97 % Netta Montoya Other [employer] Other 01-09-2023 09:30-0400 Systolic blood pressure 112 mm[Hg] Netta Montoya Other [employer] Other 01-01-2023 15:45-0400 Body height 161.93 cm Siva Ron Other [employer] Other 01-01-2023 15:45-0400 Body mass index (BMI) [Ratio] 34.08 kg/m2 Siva Ariadne Other [employer] Other 01-01-2023 15:45-0400 Body weight 89.36 kg Siva Ron Other [employer] Other 01-01-2023 15:45-0400 Diastolic blood pressure 71 mm[Hg] Siva Ron Other [employer] Other 01-01-2023 15:45-0400 Systolic blood pressure 116 mm[Hg] Siva Ron Other [employer] Other 11-30-2022 13:58-0400 Body height 165.1 cm Sagar Krause MD Work Phone: [employer] 11-30-2022 13:58-0400 Body mass index (BMI) [Ratio] 32.12 kg/m2 Sagar Krause MD Work Phone: [employer] 11-30-2022 13:58-0400 Body weight 87.54 kg Sagar Krause MD Work Phone: [employer] 10-10-2022 14:30-0500 Body height 161.93 cm Netta Montoya Other [employer] Other 10-10-2022 14:30-0500 Body mass index (BMI) [Ratio] 34.08 kg/m2 Netta Montoya Other [employer] Other 10-10-2022 14:30-0500 Body weight 89.36 kg Netta Montoya Other [employer] Other 10-10-2022 14:30-0500 Diastolic blood pressure 70 mm[Hg] Netta Montoya Other [employer] Other 10-10-2022 14:30-0500 Systolic blood pressure 108 mm[Hg] Netta Montoya Other [employer] Other 09-13-2022 16:30-0500 Body height 161.93 cm Netta Montoya Other [employer] Other 09-13-2022 16:30-0500 Body mass index (BMI) [Ratio] 33.21 kg/m2 Netta Montoya Other [employer] Other 09-13-2022 16:30-0500 Body weight 87.09 kg Netta Montoya Other [employer] Other 09-13-2022 16:30-0500 Diastolic blood pressure 62 mm[Hg] Netta Montoya Other [employer] Other 09-13-2022 16:30-0500 SaO2% (BldA) [Mass fraction] 97 % Netta Montoya Other [employer] Other 09-13-2022 16:30-0500 Systolic blood pressure 108 mm[Hg] Netta Montoya Other [employer] Other Encounters Encounter Date Encounter Type Care Provider Facility Start: 10-21-2024 End: 10-21-2024 ambulatory Netta Montoya MD Work Phone: [facility] Work Phone: Start: 10-21-2024 End: 10-21-2024 Patient encounter procedure Netta Montoya MD Work Phone: Replaced By [facility] Physician [facility] Work Phone: Start: 09-30-2024 End: 09-30-2024 Patient encounter procedure Netta Montoya MD Work Phone: [facility] [place] Work Phone: Start: 09-30-2024 End: 09-30-2024 ambulatory Netta Montoya MD Work Phone: [facility] Work Phone: Start: 09-30-2024 End: 09-30-2024 Patient encounter procedure Netta Montoya MD Work Phone: [facility] Work Phone: Start: 09-19-2024 End: 09-19-2024 ambulatory HANY [facility] Start: 09-16-2024 ambulatory NARENDRANATH LAKSHMIPATHY [facility] Start: 09-08-2024 End: 09-08-2024 ambulatory Chandra Edouard MD Facility:[facility] Start: 08-29-2024 End: 08-29-2024 Patient encounter procedure Netta Montoya MD Work Phone: [facility] [place] Work Phone: Start: 08-29-2024 End: 08-29-2024 ambulatory Netta Montoya Facility:[facility] Start: 08-29-2024 End: 08-29-2024 Patient encounter procedure Netta Montoya MD Work Phone: Replaced By [facility] Physician [facility] Work Phone: Start: 08-18-2024 End: 08-18-2024 ambulatory Netta Montoya MD Facility:[facility] Start: 07-30-2024 ambulatory HILARY FENTONTYRARAGHUALBERTINA [facility] Start: 07-29-2024 End: 07-29-2024 Patient encounter procedure Netta Montoya MD Work Phone: [facility] Work Phone: Start: 07-17-2024 End: 07-17-2024 Patient encounter procedure Netta Montoya MD Work Phone: [facility] Work Phone: Start: 05-13-2024 ambulatory [facility] Start: 04-14-2024 End: 05-11-2024 [facility] Start: 02-21-2024 End: 02-21-2024 Office outpatient visit 25 minutes Sagar Krause MD Work Phone: [facility] Comment on above: Hx of total knee art hroplasty, left (Primary Dx); Pain in prosthetic joint, subsequent encounter Start: 02-21-2024 End: 02-21-2024 Subsequent hospital visit by physician Sagar Krause MD Work Phone: [facility] Start: 02-21-2024 ambulatory NETTA MONTOYA [facility] Start: 02-11-2024 ambulatory Netta Montoya MD Facility:[facility] Start: 01-18-2024 End: 01-18-2024 ambulatory Netta Montoya MD Facility:[facility] Start: 01-09-2024 End: 02-09-2024 ambulatory [facility] Start: 12-26-2023 End: 01-09-2024 ambulatory [facility] Start: 12-26-2023 End: 12-26-2023 Office outpatient visit 15 minutes Radha [facility] L[employer] TRA[employer] Work Phone: [facility] Comment on above: Hx of total knee art hroplasty, left (Primary Dx) Start: 12-26-2023 End: 12-26-2023 Subsequent hospital visit by physician Radha SANTOS Work Phone: [facility] Start: 12-26-2023 ambulatory RADHA BRANDEE [facility] Start: 12-20-2023 End: 12-20-2023 ambulatory Netta Montoya MD Facility:[facility] Start: 12-20-2023 End: 12-20-2023 ambulatory Netta Montoya MD Facility:[facility] Start: 10-22-2023 End: 10-22-2023 ambulatory Siva Ron Other [employer] Other Start: 10-22-2023 Telephone encounter Siva Huggins [facility] Start: 08-13-2023 End: 08-13-2023 ambulatory Netta Montoya Other [employer] Other Start: 08-13-2023 Office outpatient visit 15 minutes Netta Montoya [facility] Start: 08-09-2023 End: 08-09-2023 Office outpatient visit 15 minutes Sagar Krause MD Work Phone: [facility] Comment on above: Post-op pain (Primar y Dx); Pain in prosthetic joint, subsequent encounter Start: 08-09-2023 End: 08-09-2023 Subsequent hospital visit by physician Sagar Krause MD Work Phone: [facility] Start: 08-09-2023 ambulatory NETTA MONTOYA [facility] Start: 06-19-2023 End: 06-19-2023 ambulatory MD Netta Montoya Work Phone: [facility] Work Phone: Start: 06-19-2023 End: 06-19-2023 Patient encounter procedure MD Netta Montoya Work Phone: [facility] Work Phone: Start: 05-22-2023 End: 05-22-2023 ambulatory Siva Ron Other [employer] Other Start: 05-22-2023 Telephone encounter Siva sheriff [employer] Start: 05-09-2023 End: 05-09-2023 ambulatory MD Netta Montoya Work Phone: [facility] Work Phone: Start: 05-09-2023 End: 05-09-2023 Patient encounter procedure MD Netta Montoya Work Phone: [facility] Work Phone: Start: 04-26-2023 End: 04-26-2023 ambulatory Netta Montoya Other [employer] Other Start: 04-26-2023 Telephone encounter Netta Montoya [facility] Start: 04-24-2023 End: 04-24-2023 ambulatory Siva Ron Other [employer] Other Start: 04-24-2023 Office outpatient visit 25 minutes Siva Ron [facility] Start: 04-23-2023 End: 04-23-2023 ambulatory Netta Montoya Other [employer] Other Start: 04-23-2023 Telephone encounter Netta BAUMAN [facility] Start: 04-20-2023 End: 04-20-2023 ambulatory Netta Montoya Other [employer] Other Start: 04-20-2023 Telephone encounter Netta BAUMAN [facility] Start: 03-15-2023 End: 03-15-2023 ambulatory Siva Ron Other [employer] Other Start: 03-15-2023 Telephone encounter Siva sheriff [facility] Start: 02-22-2023 End: 02-22-2023 Postop follow up visit related to original px Radha Asif LINK TRAINER-RUG CLEANER HAND Work Phone: [facility] Comment on above: Hx of total knee art hroplasty, left (Primary Dx) Start: 02-19-2023 End: 02-19-2023 ambulatory Netta Montoya Other [employer] Other Start: 02-19-2023 Telephone encounter Netta Montoya [facility] Start: 01-18-2023 End: 01-19-[address] Erin ORN Facility:H1 Start: 01-17-2023 End: 01-17-2023 ambulatory Siva Ron Other [employer] Other Start: 01-17-2023 Telephone encounter Siva sheriff [facility] Start: 01-16-2023 End: 01-16-2023 ambulatory Siva Ron Other [employer] Other Start: 01-16-2023 Telephone encounter Siva sheriff [facility] Start: 01-09-2023 Encounter for other preprocedural examination Netta Montoya [facility] Start: 01-09-2023 Office outpatient visit 15 minutes Netta Montoya [facility] Start: 01-09-2023 Telephone encounter Netta Montoya [facility] Start: 01-09-2023 End: 01-10-[address] Erin RON [employer] Other Start: 01-08-2023 End: 01-08-[address] Erin RON Facility:[facility]1 Start: 01-02-2023 End: 01-02-2023 ambulatory Siva Ron Other [employer] Other Start: 01-02-2023 Telephone encounter Siva sheriff [facility] Start: 01-01-2023 End: 01-01-2023 ambulatory Siva Ron Other [employer] Other Start: 01-01-2023 Office outpatient ne w 45 minutes Siva Ron [facility] Start: 11-30-2022 End: 11-30-2022 Office outpatient new 60 minutes Sagar Krause MD Work Phone: [facility] Comment on above: Pain in prosthetic j oint, sequela (Primary Dx) Start: 11-30-2022 End: 11-30-2022 Subsequent hospital visit by physician Sagar Krause MD Work Phone: [facility] Start: 11-28-2022 End: 11-29-[address] CARA LEO Facility:H1 Start: 11-09-2022 End: 11-10-2022 ambulatory BRI BERGER Facility:H1 Start: 10-18-2022 End: 10-19-[address] CARA LEO Facility:H1 Start: 10-10-2022 End: 10-10-2022 ambulatory Netta Montoya Other [employer] Other Start: 10-10-2022 Office outpatient visit 15 minutes Netta Montoya [facility] Start: 09-22-2022 End: 09-22-2022 ambulatory Netta Montoya Other [employer] Other Start: 09-22-2022 Telephone encounter Netta Montoya [facility] Start: 09-13-2022 End: 09-14-2022 ambulatory JANETT BALBUENA [facility] [employer] Other Start: 09-13-2022 Office outpatient visit 15 minutes Netta Montoya [facility] Start: 08-23-2022 End: 08-24-2022 ambulatory TONY DICKINSON Facility:H1 Start: 08-22-2022 End: 08-23-2022 ambulatory JANETT BALBUENA Facility:[facility]1 Start: 08-08-2022 End: 08-09-[address] PELON ALEXANDRE Facility:[facility]1 Start: 08-01-2022 Adult health examination Netta Montoya Other [employer] Other Start: 08-01-2022 Gynecological examination normal Netta Montoya Other [employer] Other Start: 08-01-2022 Pre-procedure evaluation check Netta Montoya Other [employer] Other Start: 07-11-2022 End: 07-12-[address] NETTA MONTOYA Facility:[facility]1 Start: 07-05-2022 End: 07-06-2022 ambulatory BASILIO Goodrich [facility] Facility:H1 Start: 04-08-2022 End: 04-09-[address] DOCTOR DESHPANDE Facility:[facility]1 Start: 04-05-2022 ambulatory SABINA DELGADILLO . Facility:H 1 Start: 03-28-2022 Encounter for other preprocedural examination DR DOCTOR DESHPANDE [facility] Start: 03-27-2022 End: 03-28-[address] DOCTOR [...] A g [Presence] in Stool by Immunoassay [facility] Start: 09-30-2024 Giardia lamblia Ag [Presence] in Stool by Immunoassay [facility] Start: 05-11-2024 Influenza vaccination INFLUENZ A VACCINE (Season Ended) [facility] Start: 02-21-2024 End: 02-20-2025 REQUEST FOR MISC LAB SENDOUT REQUEST FOR MISC LAB SENDOUT Lab Routine Pain in prosthetic joint, subsequent encounter Expected: 02/21/2024, Expires: 02/20/2025 [facility] Comment on above: Expected: 02/21/2024 , Expires: 02/20/2025 Start: 01-30-2024 End: 01-30-2024 Patient encounter procedure 01/30/2024 1:00 PM EDT Office Visit [facility] [address] [place] [address] Radha Asif, LINK TRAINER-RUG CLEANER HAND [address] [place] [address] [facility] Start: 08-09-2023 End: 09-06-2023 C-reactive protein C REACTIVE PROTEIN Lab Routine Pain in prosthetic joint, subsequent encounter Expected: 08/09/2023, Expires: 09/06/2023 [facility] Comment on above: Expected: 08/09/2023 , Expires: 09/06/2023 Start: 08-09-2023 End: 09-06-2023 SEDIMENTATION RATE, AUTOMATED SEDIMENTATION RATE, AUTOMATED Lab Routine Pain in prosthetic joint, subsequent encounter Expected: 08/09/2023 (Approximate), Expires: 09/06/2023 [facility] Comment on above: Expected: 08/09/2023 (Approximate), Expires: 09/06/2023 Start: 07-06-2023 Hemoglobin A1c measurement HBA1C TEST [facility] Start: 06-06-2023 End: 06-06-2023 Patient encounter procedure 06/06/2023 1:10 PM EDT Office Visit [facility] [address] [place] [address] Sagar Krause MD [address] [place] [address] [facility] Start: 05-11-2023 COVID-19 VACCINE ( season) COVID-19 VACCINE ( season) [facility] Start: 05-11-2023 Influenza vaccination [facility] Start: 05-09-2023 [facility] Start: 01-04-2023 End: 01-04-2023 ambulatory 01/04/2023 Pre-Operative Nurse Assessment Internal Medicine [facility] Pre Admission Start: 05-11-2022 Influenza vaccination INFLUENZA VACC INE (#1) [facility] Start: 12-15-2009 Zoster vaccine hzv l ag for subcutaneous use ZOSTER (SHINGLES) VACCINE (1 of 2) [facility] Start: 12-15-2004 Screening for malign ant neoplasm of colon COLORECTAL CANCER SCREENING DISCUSSION [facility] Start: 1999 Lipid panel LIPID SCREENING [facility] Start: 1999 Screening for malign ant neoplasm of breast MAMMOGRAM SCREENING DISCUSSION [facility] Start: 12-15-1980 Screening for malign ant neoplasm of cervix CERVICAL CANCER SCREENING DISCUSSION [facility] Start: 12-15-1978 Third diphtheria, te tanus and acellular pertussis (DTaP) vaccination TDAP (ADULT) [facility] Start: 12-15-1974 HIV screening HIV SCREENING DISCUSSION [facility] Start: 06-16-1960 COVID-19 VACCINE (#1) COVID-19 VACCI NE (#1) [facility] Start: 1959 Diabetic foot examination DIABETIC F OOT EXAM [facility] Start: 1959 Glaucoma screening EYE EXAM [facility] Start: 1959 Hepatitis C screening HEPATITI S C VIRUS SCREENING [facility] Start: 1959 Lipid panel LIPIDS [facility] Start: 1959 Tetanus vaccination TETANUS [facility] Start: 1959 Thyroid stimulating hormone measurement TSH [facility] Start: 1959 Urine screening for protein URINE MICROALBUMIN TEST [facility] Comprehensive metabo lic 2000 panel - Serum or Plasma [facility] Radiography for bone length studies XR BONE LENGTH STUDY Imaging Routine Pain in prosthetic joint, sequela 11/30/2022 1:41 PM EDT [facility] XR Knee - left 3 Views XR KNEE L EFT 3 VIEWS Imaging Routine Pain in prosthetic joint, sequela 11/30/2022 1:41 PM EDT [facility] Work Phone: XR Knee - left 3 Views XR KNEE L EFT 3 VIEWS Imaging Routine Hx of total knee arthroplasty, left 02/22/2023 2:50 PM EDT [facility] XR Knee - left 3 Views XR KNEE L EFT 3 VIEWS Imaging Routine Post-op pain 08/09/2023 2:03 PM EST [facility] XR Knee - left 3 Views XR KNEE L EFT 3 VIEWS Imaging Routine Hx of total knee arthroplasty, left 12/26/2023 1:43 PM EDT [facility] XR Knee - left 3 Views XR KNEE L EFT 3 VIEWS Imaging Routine Hx of total knee arthroplasty, left 02/21/2024 1:11 PM EDT [facility] Payers Date Payer Category Payer Private Health Insurance 2021 Medicare MEDICARE AETNA [place] P[place] MEDICARE AETNA HMO [id number] 2021-Present [address] [place] [address] [id number] 1959 Unknown [id number] 2.840.1.402347.3.579.2.5 93 1959 Unknown [id number] 2.840.1.299108.3.579.2.5 93 1959 Unknown [id number] 2.16.840.1.766023.3.579.2.5 93 1959 Unknown [id number] 2.16.840.1.642744.3.579.2.5 93 1959 Unknown [id number] 2.16.840.1.367857.3.579.2.5 93 1959 Unknown [id number] 2.16.840.1.325838.3.579.2.5 93 1959 Unknown [id number] 2.16.840.1.814442.3.579.2.5 93 1959 Unknown [id number] 2.16.840.1.377477.3.579.2.5 1959 Unknown [id number] 2.16.840.1.970476.3.579.2.5 1959 Unknown [id number] 2.16.840.1.223643.3.579.2.5 1959 Unknown [id number] 2.16.840.1.363061.3.579.2.5 93 1959 Unknown [id number] 2.16.840.1.255977.3.579.2.5 1959 Unknown [id number] 2.16.840.1.004798.3.579.2.5 1959 Unknown [id number] 2.16.840.1.148510.3.579.2.5 1959 Unknown [id number] 2.16.840.1.774382.3.579.2.5 93 1959 Unknown [id number] 2.16.840.1.641564.3.579.2.5 1959 Unknown [id number] 2.16.840.1.631929.3.579.2.5 1959 Unknown [id number] 2.16.840.1.464144.3.579.2.5 93 1959 Unknown [id number] 2.16.840.1.062342.3.579.2.5 93 1959 Unknown [id number] 2.16.840.1.101498.3.579.2.9 83 1959 Unknown [id number] 2.16.840.1.932937.3.579.2.9 83 1959 Unknown [id number] 2.16.840.1.909021.3.579.2.9 83 1959 Unknown [id number] 2.16.840.1.417352.3.579.2.9 83 1959 Unknown [id number] 2.16.840.1.455986.3.579.2.9 83 1959 Unknown [id number] 2.16.840.1.646463.3.579.2.9 83 1959 Unknown [id number] 2.16.840.1.509273.3.579.2.1 286 1959 Unknown [id number] 2.16.840.1.250085.3.579.2.1 286 1959 Unknown [id number] 2.16.840.1.673598.3.579.2.1 286 1959 Unknown [id number] 2.16.840.1.122488.3.579.2.1 286 1959 Unknown [id number] 2.16.840.1.254123.3.579.2.1 286 1959 Unknown [id number] 2.16.840.1.767288.3.579.2.1 286 1959 Unknown [id number] 2.16.840.1.450202.3.579.2.1 96 1959 Unknown [id number] 2.16.840.1.454897.3.579.2.1 96 1959 Unknown [id number] 2.16.840.1.650509.3.579.2.1 96 1959 Unknown [id number] 2.16.840.1.036515.3.579.2.1 96 1959 Unknown [id number] 2.16.840.1.132554.3.579.2.1 96 1959 Unknown [id number] 2.16.840.1.686322.3.579.2.1 96 1959 Unknown [id number] 2.16.840.1.242708.3.579.2.1 96 1960 Medicare [id number] 2.16.840.1.043299.19 Unknown O [id number] Social History Date Type Detail Facility Unknown if ever smoked [employer] Other Start: 02-22-2023 End: 12-26-2023 Sex Assigned At [employer] Other Start: 11-30-2022 End: 07-25-2024 Tobacco smoking status NHIS Never smoked tobacco [facility] Start: 11-30-2022 Tobacco use and exposure Smokeless tobacco non-user [facility] Start: 11-30-2022 End: 02-21-2024 Alcohol intake Ex-drinker (finding) [facility] Start: 1960 Sex Assigned At Not on file A [facility] Start: 02-22-2023 End: 12-26-2023 History of Social function [facility] Start: 01-19-2023 End: 01-29-2023 Exposure to SARS-CoV-2 (event) Not sure [facility] Start: 1960 Sex Assigned At Female F [facility] Start: 10-01-2024 Sex Patient sex un known (finding) [facility] Start: 10-21-2024 Sex Female (finding) [facility] Medical Equipment Procedure Code Equipment Code Equipment Origin al Text Equipment Identifier Dates One Touch Ultra Test Strips Insert - Knee - [id number] Start: 01-29-2023 Patella - Knee - [id number] Start: 01-29-2023 Revision Pressfi t Stem 12mmx 60 [id number] Start: 01-29-2023 Revision Tibial Base Sz 2 [id number] Start: 01-29-2023 Rev Offset Stem 2mm [id number] Star t: 01-29-2023 Rev Distal Femor al Augment Sz 5 4mm [id number] Start: 01-29-2023 Rev Crs Femoral Sz 5 Left [id number] Start: 01-29-2023 Palacos R 1 X 40 Us - [id number] Start: 01-29-2023 Palacos R & G Smooth ne Cement High-Viscosity With Gentamicin - [id number] Start: 01-29-2023 Blood Sugar Diagnostic (Onetouch [...] B12 deficiency acute Fe bruary 2024 8:57am [facility] Work Phone: [phone] 160-317511-07-2024 Evaluation note* Diagnosis Onset Date Resolution Status [...] 1:49pm Nausea acute September 30, 2024 1:49pm [facility] Work Phone: [phone] History of Present illness Narrative* Sandra Ally [...] 02/21/2024 1:17 PM Patient: Emily Macias MR#: [id number] : 1960 Age: 63 y.o. Referring Physician: Self, Self Insurance: Payor: MEDICARE AETCOSMIC COLOR HMO OR PPO / Plan: MEDICARE AETNA [...] daily. 60 capsule 0 Cholecalciferol 250 MCG (82077 UT) capsule capsule Take by mouth daily. [...] DR tablet Take by mouth daily. Pancrelipase, Uum-Cmst-Godj, (CREON PO) Take 36,000 Units by mouth. [...] by Nasal route once for 1 dose. Edgeley into the nose as directed. Call 911. [...] 60 capsule, Rfl: 0 Cholecalciferol 250 MCG (02645 UT) capsule capsule, Take by mouth daily., [...] by mouth daily., Disp: , Rfl: Pancrelipase, Wbo-Gxwq-Riyx, (CREON PO), Take 36,000 Units by mouth. [...] by Nasal route once for 1 dose. Edgeley into the nose as directed. Call 911. [...] and also reported she applied for financial service professional for additional PT. Should she need additional [...] have reviewed the findings of the clinical behavior support specialist and agree with their assessment. [...] 02/21/2024 1:17 PM Patient: Emily Macias MR#: [id number] : 1960 Age: 63 y.o. Referring Physician: Self, Self Insurance: Payor: MEDICARE AETCOSMIC COLOR HMO OR PPO / Plan: MEDICARE AETCOSMIC COLOR HMO / Product Type: *No Product type* [...] daily. 60 capsule 0 Cholecalciferol 250 MCG (84352 UT) capsule capsule Take by mouth daily. [...] DR tablet Take by mouth daily. Pancrelipase, Dyl-Qfwt-Ijkv, (CREON PO) Take 36,000 Units by mouth. [...] by Nasal route once for 1 dose. Edgeley into the nose as directed. Call 911. [...] 60 capsule, Rfl: 0 Cholecalciferol 250 MCG (70872 UT) capsule capsule, Take by mouth daily., [...] by mouth daily., Disp: , Rfl: Pancrelipase, Gsk-Mwkj-Wrfu, (CREON PO), Take 36,000 Units by mouth. [...] by Nasal route once for 1 dose. Edgeley into the nose as directed. Call 911. [...] zanaflex [tizanidine], and vancom[facility]. [facility] of Present illness Narrative* Ravne Ede - 12/26/2023 2:00 PM EDT Ortho Nurse - Established Patient Intake Room#: 5 Date: 12/26/2023 1:55 PM Patient: Emily Macias MR#: [id number] : 1960 Age: 63 y.o. 1yr L [...] daily. 60 capsule 0 Cholecalciferol 250 MCG (79425 UT) capsule capsule Take by mouth daily. [...] DR tablet Take by mouth daily. Pancrelipase, Xnb-Rynq-Dtww, (CREON PO) Take 36,000 Units by mouth. [...] by Nasal route once for 1 dose. Edgeley into the nose as directed. Call 911. [...] 60 capsule, Rfl: 0 Cholecalciferol 250 MCG (09611 UT) capsule capsule, Take by mouth daily., [...] by mouth daily., Disp: , Rfl: Pancrelipase, Hkl-Kzgs-Jtjz, (CREON PO), Take 36,000 Units by mouth. [...] by Nasal route once for 1 dose. Edgeley into the nose as directed. Call 911. [...] zanaflex [tizanidine], and vancomycin. * Radha Asif, LINK TRAINER-RUG CLEANER HAND - 12/26/2023 2:00 PM EDT SUBJECTIVE: Emily [...] She thinks she had that done at [facility]. We will try and obtain [...] up with Dr. Krause for clinical examination. (DOC:[id number]) I have reviewed the findings of the clinical behavior support specialist and agree with their assessment. Radha Asif APRN-RUG CLEANER HAND Ortho Nurse - Established Patient Intake Room#: 5 Date: 12/26/2023 1:55 PM Patient: Emily Macias MR#: [id number] : 1960 Age: 63 y.o. 1yr L TKA Pt stated her knee has been locking on her and has pain 5/10. Pt stated she is almost always a 4-5/10 on the pain scale. Referring Physician: Self, Self Insurance: Payor: MEDICARE AETCOSMIC COLOR HMO OR PPO / Plan: MEDICARE AETCOSMIC COLOR HMO / Product Type: *No Product type* [...] daily. 60 capsule 0 Cholecalciferol 250 MCG (28693 UT) capsule capsule Take by mouth daily. [...] DR tablet Take by mouth daily. Pancrelipase, Hny-Osth-Meak, (CREON PO) Take 36,000 Units by mouth. [...] by Nasal route once for 1 dose. Edgeley into the nose as directed. Call 911. [...] 60 capsule, Rfl: 0 Cholecalciferol 250 MCG (69163 UT) capsule capsule, Take by mouth daily., [...] by mouth daily., Disp: , Rfl: Pancrelipase, Sem-Rqng-Hust, (CREON PO), Take 36,000 Units by mouth. [...] by Nasal route once for 1 dose. Edgeley into the nose as directed. Call 911. [...] zanaflex [tizanidine], and vancomycin. [facility]* Encounter Date Diagnosis Assessment Notes Treatment Notes Treatment Clinical Notes Aug, Piriformis syndrome, right (ICD-10 - G57.01) Pt declines PT at this time. Gave handouts for exercises and use flexeril qhs. Aug, Trochanteric bursitis, right hip (ICD-10 - M70.61) Pt declines PT. Muscle relaxer and handouts given. [employer] Other 11-30-2023 History of Present illness Narrative* [...] 08/09/2023 2:58 PM Patient: Emily Macias MR#: [id number] : 1960 Age: 62 y.o. Referring Physician: [...] DR tablet Take by mouth daily. Pancrelipase, Qxe-Etlm-Dlwx, (CREON PO) Take 36,000 Units by mouth. [...] taking: Reported on 08/09/2023) Cholecalciferol 250 MCG (95007 UT) capsule capsule Take by mouth daily. [...] by Nasal route once for 1 dose. Edgeley into the nose as directed. Call 911. [...] have reviewed the findings of the clinical behavior support specialist and agree with their assessment. [...] 08/09/2023 2:58 PM Patient: Emily Macias MR#: [id number] : 1960 Age: 62 y.o. Referring Physician: Sagar Krause MD Insurance: Payor: MEDICARE AETCOSMIC COLOR HMO OR PPO / Plan: MEDICARE AETCOSMIC COLOR HMO / Product Type: *No Product type* [...] Left; Surgeon: Sagar Krause MD; Location: [facility] ARTHROPLASTY KNEE TOTAL Left 08/13/2017 Partial [...] DR tablet Take by mouth daily. Pancrelipase, Iei-Iozz-Hmzw, (CREON PO) Take 36,000 Units by mouth. [...] taking: Reported on 08/09/2023) Cholecalciferol 250 MCG (14861 UT) capsule capsule Take by mouth daily. [...] by Nasal route once for 1 dose. Edgeley into the nose as directed. Call 911. [...] zanaflex [tizanidine], and vancomycin. documented in this [facility]08-15-2023 Evaluation note* Encounter Date Diagnosis Assessment Notes Treatment Notes Treatment Clinical Notes Apr, Abdominal cramping (ICD-10 - R10.9) Patient reports doing well Apr, Diverticulosis (ICD-10 - K57.90) Apr, Alternating constipation and diarrhea (ICD-10 - R19.8) Apr, Pancreatic atrophy (ICD-10 - K86.89) Apr, Fatty liver (ICD-10 - K76.0) [employer] Other 08-11-2023 Evaluation note* Encounter Date Diagnosis Assessment Notes Treatment Notes Treatment Clinical Notes Apr, Type 2 diabetes mellitus with hyperglycemia, without long-term current use of insulin (ICD-10 - E11.65) [employer] Other 06-15-2023 History of Present illness Narrative* [...] 02/22/2023 3:16 PM Patient: Emily Milligans MR#: [id number] : 1960 Age: 62 y.o. Referring Physician: [...] daily. 84 capsule 0 Cholecalciferol 250 MCG (31346 UT) capsule capsule Take by mouth daily. [...] by Nasal route once for 1 dose. Edgeley into the nose as directed. Call 911. If no response in 2 minutes use a new nasal spray in other nostril. Repeat until help arrives. 1Each [address] Omepraz[address] tablet Take by mouth daily. oxyCODONE 5 MG tablet Take 1-2 tabs po q 4-6 hours prn pain. Wean as tolerated. 20 tablet 0 Pancrelipase, Aar-Yhlb-Nuds, (CREON PO) Take 36,000 Units by mouth. [...] 84 capsule, Rfl: 0 Cholecalciferol 250 MCG (43399 UT) capsule capsule, Take by mouth daily., [...] by Nasal route once for 1 dose. Edgeley into the nose as directed. Call 911. [...] tolerated., Disp: 20 tablet, Rfl: 0 Pancrelipase, Sss-Hdhe-Zknw, (CREON PO), Take 36,000 Units by mouth. [...] zanaflex [tizanidine], and vancomycin. * Radha Asif APRN-RUG CLEANER HAND - 02/22/2023 3:00 PM EDT HPI: Emily [...] understanding. All pertinent portions of the clinical behavior support specialist documentation was reviewed and agree. DANIELLE Gimenez I have reviewed the findings of the clinical behavior support specialist and agree with their assessment. DANIELLE Gimenez Ortho Nurse - Established Patient Intake Room#: 5 Patient is S/P L knee medial/partial revision to TKA. Patient using walker today and penelope hose are in place. She states the worse pain is at HS while trying to sleep. Sitting pain 4/10 Walking pain is 5/10 Date: 02/22/2023 3:16 PM Patient: Emily Macias MR#: [id number] : 1960 Age: 62 y.o. Referring Physician: [...] daily. 84 capsule 0 Cholecalciferol 250 MCG (27216 UT) capsule capsule Take by mouth daily. [...] by Nasal route once for 1 dose. Edgeley into the nose as directed. Call 911. If no response in 2 minutes use a new nasal spray in other nostril. Repeat until help arrives. 1Each 0 Omeprazole [address] tablet Take by mouth daily. oxyCODONE 5 MG tablet Take 1-2 tabs po q 4-6 hours prn pain. Wean as tolerated. 20 tablet 0 Pancrelipase, Kct-Dwsa-Hawp, (CREON PO) Take 36,000 Units by mouth. [...] 84 capsule, Rfl: 0 Cholecalciferol 250 MCG (83611 UT) capsule capsule, Take by mouth daily., [...] by Nasal route once for 1 dose. Edgeley into the nose as directed. Call 911. [...] tolerated., Disp: 20 tablet, Rfl: 0 Pancrelipase, Iyp-Asys-Jwap, (CREON PO), Take 36,000 Units by mouth. [...] zanaflex [tizanidine], and vancomycin. documented in this [facility]05-10-2023 Evaluation note* Encounter Date Diagnosis Assessment Notes Treatment Notes Treatment Clinical Notes January, Alternating constipation and diarrhea (ICD-10 - R19.8) [employer] Other 05-02-2023 Evaluation note* Encounter Date Diagnosis [...] of Farxiga and pt will trial those. [employer] Other 04-24-2023 Evaluation note* Encounter Date Diagnosis [...] scan in October of last year in [place], following a colonoscopy that was done in September Start Mesalamine Dec, Alternating constipation and diarrhea (ICD-10 - R19.8) Start low fod map diet Start probiotics [employer] Other 03-23-2023 History of Present illness Narrative* [...] 11/30/2022 2:13 PM Patient: Emily Macias MR#: [id number] : 1960 Age: 61 y.o. Referring Physician: Self, Self Insurance: Payor: MEDICARE AETCOSMIC COLOR HMO OR PPO / Plan: MEDICARE AETCOSMIC COLOR HMO / Product Type: *No Product type* [...] [x]cane, []bracing Are you followed by a mail carrier and clerk? [] [x] Name: Are you followed by pain management? [] [x] Name: Are you followed by any other specialists? [x] [] Name: RA Dr Felipa Santana Outpatient Medications Prior to Visit Medication Sig Dispense Refill Ascorbic Acid 1000 MG tablet Take 1 tablet by mouth daily. B Complex Vitamins (B COMPLEX 1 PO) Take by mouth. Biotin 89489 MCG tablet Take by mouth. Cholecalciferol 250 MCG (52399 UT) capsule capsule Take by mouth. Cobalamin [...] Take by mouth., Disp: , Rfl: Biotin 75933 MCG tablet, Take by mouth., Disp: , Rfl: Cholecalciferol 250 MCG (03986 UT) capsule capsule, Take by mouth., Disp: [...] symptoms. She has history of partial medial Evangeline uni knee on 08/13/[address] Lazar. [...] left knee. She has a medial partial Evangeline uni-arthroplasty in place with severe adjacent patellofemoral arthritis. IMPRESSION: 1.) History of left partial medial Evangeline uni knee on 08/13/[address] Lazar. [...] conversion from uni to total for optimal [facility] management. We have discussed in great detail [...] of limb, and ultimately loss of life. intermediate accountant expectations, risks and general implant survivorship were also discussed. Despite these risks, the patient would liketo proceed with surgical planning. Today, we will initiate the pre-surgical process including nasalMRSA screening, scheduling an appointment for [facility] [place] and the potential surgical date, andreviewing and [...] Take by mouth., Disp: , Rfl: Biotin 28546 MCG tablet, Take by mouth., Disp: , Rfl: Cholecalciferol 250 MCG (04058 UT) capsule capsule, Take by mouth., Disp: [...] migraines Zanaflex [Tizanidine] Hallucination documented in this [facility]01-31-2023 Evaluation note* Encounter Date Diagnosis Assessment Notes Treatment Notes Treatment Clinical Notes Sep, Fibromyalgia (ICD-10 - M79.7) handicap placard rx handwritten Sep, Type 2 diabetes mellitus with hyperglycemia, without long-term current use of insulin (ICD-10 - E11.65) good readings on home meter with present meds. Sep, Positive ADRI (antinuclear antibody) (ICD-10 - R76.8) Suggested getting on cancellation list at Rheumatology [employer] Other 01-13-2023 Evaluation note* Encounter Date Diagnosis Assessment Notes Treatment Notes Treatment Clinical Notes Sep, Positive ADRI (antinuclear antibody) (ICD-10 - R76.8) Sep, Fibromyalgia (ICD-10 - M79.7) [employer] Other 01-04-2023 Evaluation note* Encounter Date Diagnosis Assessment Notes Treatment Notes Treatment Clinical Notes Sep, Abdominal cramping (ICD-10 - R10.9) Sep, Type 2 diabetes mellitus with hyperglycemia, without long-term current use of insulin (ICD-10 - E11.65) advised holding or decreasing dose of ozempic to 0.25/week as this could relate to GI side effects [employer] Other 10-31-2022 NotePROCEDURE: XR TIB_FIB RT 2V COMPARISON: 08/24/2021 HISTORY: Pain in lower limb FINDINGS: BONES:No acute fracture or dislocation. Degenerative changes of the knee and ankle. Enthesopathic spurring of the calcaneus SOFT TISSUES:Negative. No visible soft tissue swelling. EFFUSION:None visible. OTHER: Negative. IMPRESSION: Osteoarthritis Electronically authenticated by: WANDA DINAE Date: 2022-07-10 13:36[facility]06-29-2022 NoteCONSULTATION CONSULTATION DATE: 03/08/2022 HISTORY OF PRESENT [...] of pain. 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 [facility] Signed and Approved by: SABINA DELGADILLO . 03/09/2022 13:38:00[facility] note* Diagnosis Pain in prosthetic joint, sequela- Primary [facility] Information[facility] Other Evaluation note* Diagnosis Hx of total knee arthroplasty, left- Primary [facility] information [facility] Work Phone: Evaluation note* Diagnosis Post-op pain- Primary Other acute postoperative pain Pain in prosthetic joint, subsequent encounter [facility] Hx of total knee arthroplasty, left- Primary [facility] Diagnosis Hx of total knee arthroplasty, left- Primary Pain in prosthetic joint, subsequent encounter [facility] N[facility]ative - Reported* Type Description [...] diabetes divya itus with hyperglycemia, unspecified whether [facility] insulin use Medical History Fitzpatrick splints, right, [...] AND ADENOIDECTOMY Hospitalization History mono Hospitalization History [facility] Other History general Narrative - Reported* Type [...] diabetes divya itus with hyperglycemia, unspecified whether long term care pharmacist insulin use Medical History Fitzpatrick splints, right, [...] Surgical History HYSTERECTOMY AND LEFT OVARY REM ALSESIA 2003 Surgical History fundoplication 2003 Surgical History [...] 01/29/2023 Hospitalization History mono Hospitalization History menegitis [employer] Other Reason for referral (narrative)* Consultation (Routine) - Patient to Arrange Specialty Diagnoses / Procedures Referred By Westley finnegan Referred To Contact Physical Therapy Diagnoses Hx of total knee arthroplasty, left Radha Asif APRN-CNP [address] [place] [address] Referral ID Status Reason Start Date Expiration Date V isits Requested Visits Authorized [id number] Patient to Arrange 02/22/2023 03/18/2024 1 1 Scheduling Instructions . * Diagnostic X-Ray (Routine) - New Request Specialty Diagnoses / Procedures Referred By Westley finnegan Referred To Contact Diagnoses Hx of total knee arthroplasty, left Procedures XR KNEE LEFT 3 VIEWS Radha Asif APRN-CNP [address] [place] [address] Referral ID Status Reason Start Date Expiration Date V isits Requested Visits Authorized [id number] New Request 02/20/2023 03/16/2024 1 1 [facility] Purpose Family History Relationship Condition [...] Abdominal cramping ( R10.9) Referral Organization [facility] Referring Provider First Name Netta Referring Provider Last Name Lindsay Referring Provider Specialty [facility] Referred Organization [facility] Referred Provider Ismael Early Referred Address [address] [place] [phone] Referred Provider Specialty Gastroentero logy Referral Priority Routine Referral Appointment Date 2022-12-28 General Notes Sonali Cortez 10:30:02 AM >received today, notes locked and referral faxed Sonali Cortez 09/25/2022 10:48:23 AM >pt scheduled Reason 11/21/22 See phone note - 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 I do not have a copy of his labs. Diagnosis 1 Positive ADRI (antinu clear antibody) (R76.8) Referral Organization [facility] Referring Provider First Name Netta Referring Provider Last Name Montoya Referring Provider Specialty Family [facility] Referred Organization [place] [facility] Referred Provider Cara Leo Referred Address [address] [place]ny [place],[address] Referred Provider Specialty Rheumatology Referral Priority Routine Referral Appointment Date 2022-11-21 General Notes JatinkaleeSonali 09:22:28 AM >received today, notes attached and ins card attached. will call pt to see who she saw in [place] to get labs. Sonali Cortez 09/25/2022 10:37:57 AM >spoke with patient and was provided Dr. Balbuena phone number [phone] to request labs. told patient I would [...] XR BONE LENGTH STUDY Sagar Krause MD [address] [place] [id number] Referral ID Status Reason Start Date Expiration Date V isits Requested Visits Authorized [id number] New Request 11/24/2022 12/19/2023 1 1 Specialty Diagnoses / Procedures Referred By Contac t Referred To Contact Diagnoses Pain in prosthetic joint, sequela Procedures XR KNEE LEFT 3 VIEWS Sagar Krause MD [address] [place] [id number] Referral ID Status Reason Start Date Expiration Date V isits Requested Visits Authorized [id number] New Request 11/24/2022 12/19/2023 1 1 Specialty Diagnoses / Procedures Referred By Contac t Referred To Contact Diagnoses Post-op pain Procedures XR KNEE LEFT 3 VIEWS Sagar Krause MD [address] [place] [id number] Referral ID Status Reason Start Date Expiration Date V isits Requested Visits Authorized [id number] New Request 08/06/2023 08/30/2024 1 1 Specialty Diagnoses / Procedures Referred By Contac t Referred To Contact Diagnoses Hx of total knee arthroplasty, left Procedures XR KNEE LEFT 3 VIEWS Radha Asif, LINK TRAINER-[employer] CLE[employer]ER [employer] [address] [place] [address] Referral ID Status Reason Start Date Expiration Date V isits Requested Visits Authorized [id number] New Request 12/25/2023 01/18/2025 1 1 Specialty Diagnoses / Procedures Referred By Contac t Referred To Contact Diagnoses Hx of total knee arthroplasty, left Procedures XR KNEE LEFT 3 VIEWS Sagar Krause MD [address] [place] [phone] Referral ID Status Reason Start Date Expiration Date V isits Requested Visits Authorized [id number] New Request 02/14/2024 03/10/2025 1 1 Chief [...] 1:45pm Type 2 diabetes mellitus with hyperglyce [facility] July 29, 2024 9:30am Abdominal cramping [...] Date Type 2 diabetes mellitus with hyperglyce [facility] July 29, 2024 9:30am Abdominal cramping [...] and content) DATE CREATED AUTHOR 09/08/2021 [facility] DATE CREATED AUTHOR AUTHOR'S ORGANIZ ATION 01/23/2023 [facility] DATE CREATED AUTHOR AUTHOR'S ORGANIZ ATION [facility]/29/2024 [facility] DATE CREATED AUTHOR AUTHOR'S ORGANIZ ATION 09/22/2024 [facility] DATE CREATED AUTHOR AUTHOR'S ORGANIZ ATION 09/23/2024 [facility] DATE CREATED AUTHOR AUTHOR'S ORGANIZ ATION 09/23/2024 [facility] DATE CREATED AUTHOR AUTHOR'S ORGANIZ ATION 10/02/2024 [facility] REASON FOR VISIT (unrecogniz ed section and content) Specialty Diagnoses / Procedures Referred By Contac t Referred To Contact Diagnoses Pain in prosthetic joint, sequela Procedures XR BONE LENGTH STUDY Sagar Krause MD [address] [place] [id number] Referral ID Status Reason Start Date Expiration Date V isits Requested Visits Authorized [id number] New Request 11/24/2022 12/19/2023 1 1 Reason Comments Pain Reason Comments Surgical Follow-up Specialty Diagnoses / Procedures Referred By Contac t Referred To Contact Diagnoses Post-op pain Procedures XR KNEE LEFT 3 VIEWS Sagar Krause MD [address] [place] [address] Referral ID Status Reason Start Date Expiration Date V isits Requested Visits Authorized [id number] New Request 08/06/2023 08/30/2024 1 1 Reason Comments Pain Specialty Diagnoses / Procedures Referred By Contac t Referred To Contact Diagnoses Hx of total knee arthroplasty, left Procedures XR KNEE LEFT 3 VIEWS Brandee Radha, LINK TRAINER-[employer]UG CLE[employer]ER [employer] [address] [place] [address] Referral ID Status Reason Start Date Expiration Date V isits Requested Visits Authorized [id number] New Request 12/25/2023 01/18/2025 1 1 Reason Comments Follow-up Specialty Diagnoses / Procedures Referred By Contac t Referred To Contact Diagnoses Hx of total knee arthroplasty, left Procedures XR KNEE LEFT 3 VIEWS Sagar Krause MD [address] [place] [address] Referral ID Status Reason Start Date Expiration Date V isits Requested Visits Authorized [id number] New Request 02/14/2024 03/10/2025 1 1 Care Teams (unrecognized sec tion and content) Victorian Literature Professor Relationship Specialty Start Date End Date Netta Montoya MD [address] [place] [phone] PCP - General Family Medicine 10/20/22 Victorian Literature Professor Relationship Specialty Start Date End Date Netta Montoya MD [address] [place] [phone] PCP - General Family Medicine 10/20/22 Victorian Literature Professor Relationship Specialty Start Date End Date Netta Montoya MD [address] [place] [phone] PCP - General Family Medicine 10/20/22 Team Status: Active Member Role Status Dates Netta Montoya MD Primary Care Provider Active Team Status: Inactive Member Role Status Dates Siva Ron MD Attending Provider Active Netta Montoya MD Primary Care Provider Active Team Status: Inactive Member Role Status Dates Netta Montoya MD Primary Care Provider Active Cara Leo MD Attending Provider Active Victorian Literature Professor Relationship Specialty Start Date End Date Netta Montoya MD [address] [place] [phone] PCP - General Family Medicine 10/20/22 Victorian Literature Professor Relationship Specialty Start Date End Date Netta Montoya MD [address] [place] [phone] PCP - General Family Medicine 10/20/22 Victorian Literature Professor Relationship Specialty Start Date End Date Netta Montoya MD [address] [place] [address] PCP - General Family Medicine 10/20/22 Victorian Literature Professor Relationship Specialty Start Date End Date Netta Montoya MD [address] [place] [address] PCP - General Family Medicine 10/20/22 Team [...] BE BASED ON THE PRIMARY CLINICAL RECORDS. [facility]. provides no warranty or guarantee of the accuracy or completeness of information in this document.
[2024-11-10 10:07] LABS: Alanine Aminotransferase 23 U/L (14-59); Albumin Globulin Ratio 1.1; Albumin Level 3.7 g/dL (3.4-5.0); Alkaline Phosphatase 81 U/L (46-116); Anion Gap 13.9; Aspartate Amino Transferase 18 U/L (15-37); BUN Creatinine Ratio 26.3; Bilirubin Total 0.3 mg/dL (0.2-1.0); Calcium 9.6 mg/dL (8.5-10.1); Chloride 105 mmol/L (98-107); Estimated GFR (African America >60 (>=60 mL/min/1.73m^2); Estimated GFR (Non-African Ame >60 (>=60 mL/min/1.73m^2); Globulin 3.4 g/dL; Glucose 110 mg/dL (74-106); Potassium 4.9 mmol/L (3.5-5.1); Sodium 144 mmol/L (136-145); Total Protein 7.1 g/dL (6.4-8.2)
== END 2024-11-10 09:36 | disposition home or self-care (01) ==
LOC: LAB 09:35
PROVIDERS: PCP Family Medicine; Visit Provider Registered Nurse
DX: M15.0 Primary generalized (osteo)arthritis (principal); Z79.899 Other long term (current) drug therapy
CPT/HCPCS: 36415; 80053; 85025

== ENCOUNTER 2024-12-10 09:47 | Outpatient (OUT) | payer MEDICARE, SELFPAY ==
--- OUTSIDE RECORDS SUMMARY | 2024-12-10 09:51 | XMS_ITS | CCD ---
Author Organization [facility] CliniSynh Care Team Providers Care Keg Filler Name Role Phone Netta Montoya Unavailable Siva Ron Unavailable [phone] MISC, DR BECERRA Admitting Unavailable MISC, DR [...] NETTA Conti Attending Unavailable MONTOYA, DR NETTA oCnti Primary Care Unavailable MONTOYA, DR NETTA Conti [...] NETTA Conti Attending Unavailable MONTOYA, DR NETTA Cotni Primary Care Unavailable MONTOYA, DR NETTA Conti [...] Unavailable Montoya Netta LEVIN Primary Care Provider [phone] MD Siva Ron Attending Provider [phone] MD Netta Montoya Primary Care Provider MD [...] Primary Care Unavailable Lindsay LEVIN, Netta Calzada [facility] Unava ilable Esha DPM, Janett Govea Attending Unavailab charbel Montoya MD, Netta [facility] Unava ilable Esha DPM, Janett Govea Attending Unavailab charbel Montoya MD, Netta [facility] Unava ilable Silke LEVIN, Chandra Nova Attending Unavailable Silke LEVIN, Chandra Nova Attending Unavailable Lindsay LEVIN, [facility] Unava illaura Montoya MD, Netta [facility] Unava ilable Esha DPM, Janett Govea Attending Unavailab Gopal LEVIN, Netta [facility] Unava ilable Esha DPM, Janett Govea Attending Unavailab charbel Montoya MD, [facility] Unava ilable Esha DPM, Janett Govea [...] Drug Allergy 09-02-20 13 SEVERE HEADACHES [facility] Repository (20 sources) Morphine; Translations: [MORPHINE] Drug Allergy 11-19-19 21 Unknown, Hives [facility] Repository (20 sources) tiZANidine; Translations: [Zanaflex] Drug Allergy 09-02-20 13 Hallucinations [facility] Repository (14 sources) milnacipran; Translations: [MILNACIPRAN] Drug Allergy 02-10-20 17 Headache [facility] (14 sources) tiZANidine; Translations: [TIZANIDINE] Drug Allergy 02-10-20 17 Hallucination [facility] (2 sources) Morphine Drug Allergy [facility] Repository (18 sources) Vancomycin Drug Allergy 01-30-20 23 Hives [facility] (7 sources) Allergies Reconciled Propensity to adverse reactions Unknown Benefitter Other (7 sources) Saveraja *PSYCHOTHERAPEU TIC AND NEUROLOGICAL AGENTS Propensity to adverse reactions Unknown Benefitter Other (1 source) ALLERGIES NOT ON FILE; Translations: [ALLERGIES NOT ON FILE] Propensity to adverse reactions (disorder) [facility] Repository (2 sources) Saveraja *PSYCHOTHERAPEU TIC AND Allergy to substance 10-24-19 24 [facility] Comment on above: Free Text Allergy: [...] day with plain water Orally Active amylase 153933 unt / lipase 89398 unt / protease [id number] unt delayed release oral capsule (11 sources) Start: 01-16-2024 take 2 capsules by mouth three times daily at mealtime, then take 1 capsule by mouth four times daily Fbcafh-Ddaclpjt-Tmu lase (Creon) 36,000-114,000- 180,000 unit capsule,delayed release(DR/EC) [...] capsule by mouth four times daily Creon [id number] UNIT 2 capsules three times a day [...] 10 mg oral tablet (2 sources) Biotin 14308 MCG tablet Take by mouth. 0 Active [...] ) Start: 03-23-2023 take 1 capsule by [facility] twice daily Celecoxib 200 MG capsule [...] Lindsay Cm ( ) Cholecalciferol 250 MCG (21542 UT) capsule capsule Take by mouth daily. Active Cholecalciferol 250 MCG (06733 UT) capsule capsule Take by mouth. 0 [...] 9:59am Start: 01-29-2023 take 1 capsule by [facility] twice daily Docusate 100 MG capsule Take 1 capsule by mouth 2 times daily. 60 capsule 01/29/2023 Active take 1 capsule by [facility] twice daily Docusate (Stool Softener) 100 MG capsule Take 1 capsule by mouth 2 times daily. 0 Active estrogens, conjugated (long term) 0.625 mg/ml vaginal cream (5 sources) Estrogen [...] by Nasal route once for 1 dose. Jesse into the nose as directed. Call 911. If no response in 2 minutes use a new nasal spray in other nostril. Repeat until help arrives. 1 Each 01/29/2023 Active Rudyard 3 (5 sources) Rudyard 3 Active OneTouch Ultra 2 w/Device (18 [...] 21, 2024 10:00am take 1 tablet by [facility] three times daily as needed Oxybutynin [...] 2 MG/1.5ML as directed Subcutaneous Active Pancrelipase, Jjg-Ykqb-Fxyg, (CREON PO) (7 sources) take 1 tablet by mouth once daily Pancrelipase, Qpv-Pkfq-Eijm, (CREON PO) Take 36,000 Units by mouth. 2 tablet by mouth with each meal, 1 tablet by mouth with 1 snack daily Active take 1 tablet by mouth once alannah y Pancrelipase, Pec-Ibjd-Xqvc, (CREON PO) Take 36,000 Units by mouth. [...] Formula Probiotic) 10 billion cell capsule Active 45064 MMU CELLS PO Daily April 20, 2024 [...] Softener (15 sources) Stool Softener Active thyroid (FDC) (5 sources) Nature-Throid Ac tive Tumeric (2 [...] mg/ml oral solution (2 sources) Phenothiazine, Uncompetitive E-aywnsu-D-aspartate Receptor Antagonist, Sigma-1 Agonist Start: 01-23-2024 End: [...] 2024 2:33pm take 1 capsule by mo [facility] every eight hours Dicyclomine HCl 10 MG [...] Start: 01-18-2023 take 4 tablets by mo [facility] every twenty-four hours Mesalamine 1.2 GM 4 [...] ankle] Chronic Other aftercare (1 source) Other prison (current) drug therapy; Translations: [OTH CITRIX ARCHITECT CURRENT DRUG THERAPY] Onset: 3 Episodic Other [...] Ql (Stl) Campy coli+jejuni BD Max Negative [facility] Comment on above: Campylobacter test i ncludes C. jejuni and C. coli. Clostridioides difficile tox in B tcdB gene [Presence] in Stool by DAISY with probe deteOrdered By: Jb Grady on 09-30-2024 C. difficile toxin B tcdB gene DAISY+probe Ql (Stl) Clostridioides difficile toxin B tcdB gene [Presence] in Stool by DAISY with probe dete Negative [facility] Comment on above: Testing performed by RT-PCR Clostridium Difficileon 09-11 Clostridium Difficile Negative Normal Negative The Counts Include 234 Beds At [facility] Comment on above: Result Comment: Test ing performed by RT-PCR PERFORMED BY: [place] [address] PATHOLOGIST PHYSICIAN NEONATOLOGY BENNY ARAUJO M.D. Performed By: #### S TCYRPTOAG, GIARDIA #### [facility] , #### CDT, ENT BACT PANEL #### [facility] [address] [place] [address] Cryptosporidium Antigen Stoo kristofer 09-30-2024 Cryptosporidium Antigen Stool Negative Normal Negative The Counts Include 234 Beds At [facility] Comment on above: Order Comment: SOURC E OF SPECIMEN: STOOL Performed By: #### S TCYRPTOAG, GIARDIA #### [facility] , #### CDT, ENT BACT PANEL #### [place] [address] [place] Cryptosporidium sp Ag [Prese nce] in Stool by ImmunoassayOrdered By: Jb Grady on 09-30-2024 Cryptosporidium sp Ag IA Ql (Stl) Cryptosporidium sp Ag [Presence] in Stool by Immunoassay Negative [facility] Giardia Lamblia Ag EIA Stool on 09-30-2024 Giardia Lamblia Ag EIA Stool Negative Normal Negative The Counts Include 234 Beds At [facility] Comment on above: Order Comment: SOURC E OF SPECIMEN: STOOL Result Comment: Perf ormed at: - [facility] [address] [id number] Director Corporate Compliance: Tra Bay PhD, Phone: [phone] PERFORMED BY: [place] [address] PATHOLOGIST PHYSICIAN NEONATOLOGY BENNY ARAUJO M.D. Performed By: #### S TCYRPTOAG, GIARDIA #### [facility] , #### CDT, ENT BACT PANEL #### [address] Giardia lamblia Ag [Presence ] in Stool by ImmunoassayOrdered By: Jb Grady on 09-30-2024 G. lamblia Ag IA Ql (Stl) Giardia lamblia Ag [Presence] in Stool by Immunoassay Negative [facility] Comment on above: Performed at: - [facility] [address] [id number] Director: Tra Bya PhD, Phone: [phone] Salmonellosis BD MaxOrdered By: Jb Grady on 09-30-2024 Salmonella sp spaO gene DAISY+probe Ql (Stl) Salmonella sp spaO gene [Presence] in Stool by DAISY with probe detection Negative [facility] Comment on above: Testing performed by RT-PCR Shigella Tox 1+2 BD MaxOrder ed By: Jb Grady on 09-30-2024 E. coli stx1+stx2 genes DAISY+probe Ql (Stl) Escherichia coli Stx1 and Stx2 toxin stx1+stx2 genes [Presence] in Stool by DAISY with Negative [facility] Shigellosis BD MaxOrdered By : Jb Grady on 09-30-2024 Shigella species+EIEC invasion plasmid antigen H ipaH gene DAISY+probe Ql (Stl) Shigella species+EIEC invasion plasmid antigen H ipaH gene [Presence] in Stool by DAISY Negative [facility] Comment on above: Shigella sp. test in cludes Shigella species and Enteroinvasive E. coli (EIEC). Stool Bacterial Panelon 09-11 Campylobacter Negative Normal Negative [facility] Comment on above: Result Comment: Camp ylobacter test includes C. jejuni and C. coli. Performed By: #### S TCYRPTOAG, GIARDIA #### [facility] , #### CDT, ENT BACT PANEL #### [address] Salmonella Species Negative Normal Negative [facility] Comment on above: Result Comment: Test ing performed by RT-PCR PERFORMED BY: [place] [address] PATHOLOGIST PHYSICIAN NEONATOLOGY BENNY ARAUJO M.D. Performed By: #### S TCYRPTOAG, GIARDIA #### [facility] , #### CDT, ENT BACT PANEL #### [address] Shiga Toxin (E coli O157+oth) Negative Normal Negative The Counts Include 234 Beds At [facility] Comment on above: Performed By: #### S TCYRPTOAG, GIARDIA #### [facility] , #### CDT, ENT BACT PANEL #### [address] Shigella Species Negative Normal Negative [facility] Comment on above: Result Comment: Shig brandy sp. test includes Shigella species and Enteroinvasive E. coli (EIEC). Performed By: #### S TCYRPTOAG, GIARDIA #### [facility] , #### CDT, ENT BACT PANEL #### [address] 36on 09-18-2024 36 LVM for pt to call clinic to schedule consult with Dr. Leavitt for Surgical intervention vs SCS. Please let investigative writer or Nayana Crenshaw MA know when scheduled so we may notify [employer] reps. Normal [facility] XR KUBon 08-29-2024 XR KUB [facility] [address] XRay Report Signed Patient: Emily Macias MR#: [id number] : 1960 Acct:[id number] Age/Sex: 63 / F ADM Date: 08/29/24 Loc: XD Room: Type: [facility] Attending Dr: Jb Grady DOUBLE BASS PLAYER Copies to: Jb Grady APRN Ordering Provider: [...] Sims Jr., D.O.08/29/2024 3:27 PM Dictation Location: [facility]- Transcribed By: [facility] 08/29/24 1527 Dictated By: Bar Sims Jr, DO 08/29/24 1526 Signed By: 08/29/24 1527 Normal The Counts Include 234 Beds At [facility] HbA1c HPLC (Bld) [Mass fract ion]on 07-29-2024 HbA1c (Bld) [Mass fraction] Hemoglobin A1c/Hemoglobin.total in Blood by HPLC [facility] Estimated glomerular filtrat ion rate (GFR) non- Americanon 07-17-2024 GFR/1.73 sq M.predicted among non-blacks MDRD (S/P/Bld) [Vol rate/Area] Estimated glomerular filtration rate (GFR) non- >=60 mL/min/1.73m 2 [facility] Globulin Calc (S) [Mass/Vol] on 07-17-2024 Globulin (S) [Mass/Vol] Serum globulin measurement by calculation (mass/volume) [facility] Iron binding capacity [Mass/ volume] in Serum or Plasmaon 07-17-2024 Iron binding capacity [Mass/Vol] Iron binding capacity [Mass/volume] in Serum or Plasma 250.0-450.0 [facility] Iron saturation [Mass Fracti on] in Serum or Plasmaon 07-17-2024 Iron saturation [Mass fraction] Iron saturation [Mass Fraction] in Serum or Plasma [facility] Laboratory - Chemistry and C hemistry - challengeon 07-17-2024 Albumin [Mass/Vol] 3.8 g/dL 3.4-5.[address] [facility] ALP [Catalytic activity/Vol] 81 U/L 46-116 [facility] ALT [Catalytic activity/Vol] 21 U/L 14-59 [facility] AST [Catalytic activity/Vol] 18 U/L 15-37 [facility] Bilirubin [Mass/Vol] 0.4 mg/dL 0.2-1.0 [facility] Calcium [Mass/Vol] 9.2 mg/dL 8.5-10.[address] [facility] Chloride [Moles/Vol] 105 mmol/L 98-107 [facility] CO2 [Moles/Vol] 24.1 mmol/L 21.0-32.[address] [facility] Cobalamin (Vitamin B12) [Mass/Vol] 887 pg/mL 232-1245 [facility] Comment on above: Performed at: [address] [id number] Director: Tra Bay PhD, Phone: [phone] Creatinine [Mass/Vol] 0.84 mg/dL 0.55-1.02 [facility] Ferritin [Mass/Vol] 63.0 ng/mL 8.0-252.0 [facility] Free T4 [Mass/Vol] 1.23 ng/dL 0.76-1.[address] [facility] GFR/1.73 sq M.predicted MDRD (S/P/Bld) [Vol rate/Area] mL/min/{1.73_m2} >=60 mL/min/1.73m 2 [facility] Glucose [Mass/Vol] 150 mg/dL High 74-[address] [facility] Iron [Mass/Vol] 63.0 ug/dL 50.0-170.0 [facility] Potassium [Moles/Vol] 4.2 mmol/L 3.5-5.1 [facility] Protein [Mass/Vol] 7.1 g/dL 6.4-8.[address] [facility] Sodium [Moles/Vol] 141 mmol/L 136-[address] [facility] TSH Qn 0.749 m[IU]/L 0.358-3.740 [facility] Urea nitrogen [Mass/Vol] 21.0 mg/dL High 7.0-18.0 [facility] Urea nitrogen/Creatinine [Mass ratio] 25.0 mg/mg [facility] No Panel Informationon 07-17 25-Hydroxy Vitamin D Total 80.1 ng/mL [facility] Comment on above: <20 ng/mL Vit D defi cient20-<30 ng/mL Vit D fuyistncycxv30-962 ng/mL Vit D sufficient>100 ng/mL Potential Toxicity Serum or plasma albumin/glob ulin mass ratioon 07-17-2024 Albumin/Globulin [Mass ratio] Serum or plasma albumin/globulin mass ratio [facility] Serum or plasma anion gap de terminationon 07-17-2024 Anion gap [Moles/Vol] Serum or plasma an ion gap determination [facility] No Panel Informationon 02-26 Radiology Study observation (narrative) [facility] LARGE JOINT/BURSA INJECTION AND/OR ASPIRATION: L [...] complications The patient was prepped with Chloraprep. [facility] Sagar Krause MD 02/27/2024 1:38 PM [...] MG/ML The patient was prepped with Betadine. [facility] No Panel Informationon 02-20 [facility] Podiatry Office/Clinic Noteo n 01-18-2024 Podiatry [...] remember. Patient relates that they have tried ioke-qoe-rqfniml pain relievers, padding, and modification of shoe [...] out of 10 sites as measured with [place] French monofilament bilateral, otherwise intact Gross motor [...] deep perone (more content not included)... Normal [facility] US Guidance/Localizationon 0 01-18-2024 US Guidance/Localization EXAM: Limited Diagnostic Musculoskeletal Ultrasound [with Ultrasound-Guided Injection of left superficial peroneal nerve at the anterior lateral ankle] CLINICAL HISTORY: Patient has concern for multiple peripheral nerve entrapments. History of left first metatarsophalangeal joint fusion with 3D implant TECHNIQUE: Musculoskeletal Ultrasound with [employer] e Next Gen unit with [12 MHz][L10-22] [...] Electronically Signed in Other Vendor System) Normal [facility] Podiatry Office/Clinic Noteo n 12-20-2023 Podiatry [...] out of 10 sites as measured with [place] French monofilament bilateral, otherwise intact Gross motor [...] and barby (more content not included)... Normal [facility] US Guidance/Localizationon 0 12-20-2023 US Guidance/Localization EXAM: Limited Diagnostic Musculoskeletal Ultrasound [with Ultrasound-Guided Injection of left saphenous nerve] CLINICAL HISTORY: Patient has concern for multiple peripheral nerve entrapments. History of left first metatarsophalangeal joint fusion with 3D implant TECHNIQUE: Musculoskeletal Ultrasound with [employer] e Next Gen unit with [12 MHz][L10-22] [...] Electronically Signed in Other Vendor System) Normal [facility] XR Ankle 3 Views Bilateralon 12-20-2023 [...] Electronically Signed in Other Vendor System) Normal [facility] XR Foot 3 Views Bilateralon 12-20-2023 [...] Electronically Signed in Other Vendor System) Normal [facility] Glucose Glucometer (BldC) [M ass/Vol]Ordered By: Siva Ron on 05-09-2023 Glucose [Mass/Vol] 136 mg/dL [facility] Comment on above: Random Glucose Refer ence Range is dependent on time and content of last meal. Glucose of more than 200 mg/dL in a nonstressed, ambulatory subject supports the diagnosis of Diabetes Mellitus. No Panel InformationOrdered By: Siva Ron on 05-09-2023 Bedside Glucose Comment Glu2: cleaned meter [facility] PANCREATIC ELASTASE FECALon 01-22-2023 Pancreatic Elastase, Fecal 128 ug Elast./g Critically low >200 [facility] Comment on above: Result Comment: Jihan re Pancreatic Insufficiency: <100 Moderate Pancreatic Insufficiency: 100 - 200 Normal: >200 Performed By: #### H PYLORI #### [facility] [address] [address] [address] Irene Cedillo LACTOFERRIN FECAL QUANTon Lactoferrin, Fecal, Quant. <1.00 Normal 0.00-7.24 [facility] Comment on above: Result Comment: Re [...] (IBS). Performed By: #### S EDR #### [facility] [address] [address] [address] Irene Cedillo CALPROTECTIN, FECALon 2022 Calprotectin, Fecal 139 ug/g Critically high 0-120 [facility] Comment on above: Result Comment: Conc entration Interpretation Follow-Up <16 - 50 ug/g Normal None >50 -120 ug/g Borderline Re-evaluate in 4-6 weeks >120 ug/g Abnormal Repeat as clinically indicated Performed By: #### H PYLORI #### [facility] [address] [place] [address] Dr. Irene Cedillo PANCREATIC ELASTASE FECALon 01-15-2023 Pancreatic Elastase, Fecal 161 ug Elast./g Critically low >200 [facility] Comment on above: Result Comment: Jihan re Pancreatic Insufficiency: <100 Moderate Pancreatic Insufficiency: 100 - 200 Normal: >200 Performed By: #### A NTI-NICOLLE #### [facility] [address] [address] [address] Irene Cedillo TSHon 01-09-2023 TSH 1.630 uIU/mL Normal 0.358-3.740 [facility] Comment on above: Performed By: #### T SH #### [facility] [address] [place] [address] Dr. Irene Cedillo ANTIHISTIONE ANTIBODIESon Anti-histone Abs 0.5 Units Normal 0.0-0.9 [facility] Comment on above: Result Comment: Nega tive <1.0 Weak Positive 1.0 - 1.5 Moderate Positive 1.6 - 2.5 Strong Positive >2.5 Performed By: #### C K, CRP #### [facility] [address] [place] [address] Dr. Irene Cedillo LARGE JOINT/BURSA INJECTION AND/OR [...] complications The patient was prepped with Betadine. [facility] Radiology Study observation (narrative) [facility] US PELVIS AND TRANSVAGon US PELVIS AND TRANSVAG EXAM: US PELVIS AND TRANSVAG HISTORY: Left lower quadrant pain COMPARISON: None. TECHNIQUE: Pelvic sonography was performed utilizing grayscale and color Doppler technique. FINDINGS/ IMPRESSION: 1. Hysterectomy. 2. Ovaries not visualized. 3. No adnexal mass. 4. No significant free fluid. Electronically authenticated by: BRI BERGER Date: 2022-11-10 15:54 Normal [facility] LUPUS ANTICOAGULANT PROFILEo n 10-27-2022 Anticardiolipin Ab, IgG <10 Normal [facility] Comment on above: Result Comment: Refe rence Range: Negative: <15 Indeterminate: 15 - 20 Low to medium positive: >20 - 80 High positive: >80 Performed By: #### L UPUSAC #### [facility] [address] [address] [address] Irene Cedillo Anticardiolipin Ab, IgM <10 Normal [facility] Comment on above: Result Comment: Refe rence Range: Negative: <13 Indeterminate: 13 - 20 Low to medium positive: >20 - 80 High positive: >80 Performed By: #### L UPUSAC #### [facility] [address] [address] [address] Irene Cedillo APTT 1:1 WELDING MACHINE ASSEMBLER NIY Normal [facility] Comment on above: Result Comment: Test ing Not Indicated This test was developed and its performance characteristics determined by [facility]. It has not been cleared or approved by the Food and Drug Administration. Performed By: #### L UPUSAC #### [facility] [address] [place] [address] Dr. Irene Cedillo APTT 1:1 Saline NIY Normal [facility] Comment on above: Result Comment: Test ing Not Indicated This test was developed and its performance characteristics determined by [facility]. It has not been cleared or approved by the [place] Food and Drug Administration. Performed By: #### L UPUSAC #### [facility] [address] [address] [address] Irene Cedillo aPTT Coag (Bld) [Time] 23.0 s Normal [facility] Comment on above: Result Comment: This test has not been validated for monitoring unfractionated heparin therapy. aPTT-based therapeutic ranges for unfractionated heparin therapy have not been established. Consider ordering Heparin anti-Xa (unfractionated). Reference Range: 18 years and older: 22.9 - 30.2 Performed By: #### L UPUSAC #### [facility] [address] [place] [address] Dr. Irene Cedillo Beta-2 Glycoprotein I, IgA <10 Normal [facility] Comment on above: Result Comment: The reference interval reflects a 3SD or 99th percentile interval. Reference Range: Negative: <26 Performed By: #### L UPUSAC #### [facility] [address] [place] [address] Dr. Irene Cedillo Beta-2 Glycoprotein I, IgG <10 Normal [facility] Comment on above: Result Comment: The reference interval reflects a 3SD or 99th percentile interval. Reference Range: Negative: <21 Performed By: #### L UPUSAC #### [facility] [address] [place] [address] Dr. Irene Cedillo Beta-2 Glycoprotein I, IgM <10 Normal [facility] Comment on above: Result Comment: The reference interval reflects a 3SD or 99th percentile interval. Reference Range: Negative: <33 Performed By: #### L UPUSAC #### [facility] [address] [address] [address] Irene Cedillo DRVVT Confirm Seconds NIY Normal [facility] Comment on above: Result Comment: Test ing Not Indicated Performed By: #### L UPUSAC #### [facility] [address] [place] [address] Dr. Irene Cedillo DRVVT Ratio NIY Normal [facility] Comment on above: Result Comment: Test ing Not Indicated Performed By: #### L UPUSAC #### [facility] [address] [address] [address] Irene Cedillo DRVVT Screen Seconds 33.2 sec Normal [facility] Comment on above: Result Comment: Refe rence Range: <= 47.0 Performed By: #### L UPUSAC #### [facility] [address] [place] [address] Dr. Irene Cedillo Hexagonal Phospholipid Neutral 0 sec Normal [facility] Comment on above: Result Comment: This value is NEGATIVE. This is a qualitative assay and is therefore reported as positive for lupus anticoagulant or negative. The quantitative value is provided as an aid in diagnosis. Reference Range: 0 - 11 Performed By: #### L UPUSAC #### [facility] [address] [place] [address] Dr. Irene Cedillo INR Coag (PPP) [Relative time] 0.9 {INR} Normal [facility] Comment on above: Result Comment: Refe rence Range: >1 month: 0.9 - 1.2 Performed By: #### L UPUSAC #### [facility] [address] [place] [address] Dr. Irene Cedillo LAC Interpretation Comment Normal [facility] Comment on above: Result Comment: A arelis pus anticoagulant is not detected. All antiphospholipid antibodies evaluated are normal. As antibody titers may fluctuate with time, repeat testing may be indicated. Please contact [facility] if further clarification is needed. Performed By: #### L UPUSAC #### [facility] [address] [place] [address] Dr. Irene Cedillo Platelet Neutralization 0.0 sec Normal [facility] Comment on above: Result Comment: Refe rence Range: 0.0 - 3.0 This test was developed and its performance characteristics determined by [employer]. It has not been cleared or approved by the Food and Drug Administration. Performed By: #### L UPUSAC #### [facility] [address] [place] [address] Dr. Irene Cedillo PT Coag (PPP) [Time] 10.0 s Normal [facility] Comment on above: Result Comment: Refe rence Range: 18 years and older: 9.1 - 12.0 Performed By: #### L UPUSAC #### [facility] [address] [place] [address] Dr. Irene Cedillo Thrombin Time 15.5 sec Normal [facility] Comment on above: Result Comment: Refe rence Range: 0.0 - 23.0 Performed By: #### L UPUSAC #### [facility] [address] [place] [address] Dr. Irene Cedillo ADRI by IFAon 10-23-2022 Antinuclear Antibodies, IFA Positive Abnormal [facility] Comment on above: Result Comment: Nega tive <1:80 Borderline 1:80 Positive >1:80 Performed By: #### T SH #### [facility] [address] [place] [address] Dr. Irene Cedillo Centriole Pattern Normal [facility] Comment on above: Performed By: #### T SH #### [facility] [address] [place] [address] Dr. Irene Cedillo Centromere Pattern Normal [facility] Comment on above: Performed By: #### T SH #### [facility] [address] [place] [address] Dr. Irene Cedillo Homogeneous Pattern 1:320 Critically high [facility] Comment on above: Result Comment: ICAP nomenclature: AC-1 Performed By: #### T SH #### [facility] [address] [place] [address] Dr. Irene Cedillo Midbody Pattern Normal [facility] Comment on above: Performed By: #### T SH #### [facility] [address] [place] [address] Dr. Irene Cedillo Note: Comment Normal [facility] Comment on above: Result Comment: For [...] titers Nucleosomes, Histones Drug-induced SLE Speckled Sm, [employer]ALE[employer]OR, SCL-70, SLE,MCTD,PSS (diffuse form), SS-A/SS-B Sjogrens Nucleolar SCL-70, PM-1/SCL High titers Scleroderma, PM/DM Centromere Centromere PSS (limited form) w/Crest syndrome variable Nuclear Dot [id number] Primary Biliary Cirrhosis Nuclear GP210, Primary Biliary Cirrhosis Membrane margie A,B,C Performed By: #### T SH #### [facility] [address] [place] [address] Dr. Irene Cedillo Nuclear Dot Pattern Normal [facility] Comment on above: Performed By: #### T SH #### [facility] [address] [place] [address] Dr. Irene Cedillo Nuclear Membrane Pattern Normal [facility] Comment on above: Performed By: #### T SH #### [facility] [address] [place] [address] Dr. Irene Cedillo Nucleolar Pattern Normal [facility] Comment on above: Performed By: #### T SH #### [facility] [address] [place] [address] Dr. Irene Cedillo PCNA Pattern Normal [facility] Comment on above: Performed By: #### T SH #### [facility] [address] [place] [address] Dr. Irene Cedillo Speckled Pattern Normal [facility] Comment on above: Performed By: #### T SH #### [facility] [address] [place] [address] Dr. Irene Cedillo Spindle Apparatus Pattern Normal [facility] Comment on above: Performed By: #### T SH #### [facility] [address] [place] [address] Dr. Irene Cedillo ALDOLASEon 10-19-2022 Aldolase 3.6 U/L Normal 3.3-10.3 [facility] Comment on above: Performed By: #### T SH #### [facility] [address] [place] [address] Dr. Irene Cedillo ANTI-CENTROMERE B ABon 10-19 Anti-Centromere B Antibodies <0.2 Normal 0.0-0.9 [facility] Comment on above: Performed By: #### S EDR #### [facility] [address] [place] [address] Dr. Irene Cedillo ANTI-DNA DS ABon 10-19-2022 Anti-DNA (DS) Ab Qn 1 IU/mL Normal 0-9 [facility] Comment on above: Result Comment: Nega tive <5 Equivocal 5 - 9 Positive >9 Performed By: #### C CPAB #### [facility] [address] [place] [address] Dr. Irene Cedillo ANTI-NICOLLE-1on 10-19-2022 Anti-Nicolle-1 <0.2 Normal 0.0-0.9 [facility] Comment on above: Performed By: #### A NTI-NICOLLE #### [facility] [address] [place] [address] Dr. Irene Cedillo ANTICHROMATIN ANTIBODIESon 0 10-19-2022 Antichromatin Antibodies 0.5 AI Normal 0.0-0.9 [facility] Comment on above: Performed By: #### C K, CRP #### [facility] [address] [place] [address] Dr. Irene Cedillo ANTIEXTRACTABLE NUCLEAR ANTI BODIESon 10-19-2022 [employer]PER[employer]OR Antibodies <0.2 Normal 0.0-0.9 [facility] Comment on above: Performed By: #### H PYLORI #### [facility] [address] [place] [address] Dr. Irene Cedillo Performed By: #### C CPAB #### [facility] [address] [place] [address] Dr. Irene Cedillo Murray Antibodies <0.2 Normal 0.0-0.9 [facility] Comment on above: Performed By: #### H PYLORI #### [facility] [address] [place] [address] Dr. Irene Cedillo Performed By: #### C CPAB #### [facility] [address] [place] [address] Dr. Irene Cedillo ANTISCLERODERMA ABon 023 Antiscleroderma-70 Antibodies <0.2 Normal 0.0-0.9 [facility] Comment on above: Performed By: #### A NSCLER #### [facility] [address] [place] [address] Dr. Irene Cedillo C3 and C4 COMPLEMENTon 10-19 Complement C3, Serum 171 mg/dL Critically high 82-167 [facility] Comment on above: Performed By: #### H PYLORI #### [facility] [address] [place] [address] Dr. Irene Cedillo Complement C4, Serum 41 mg/dL Critically high 12-38 [facility] Comment on above: Performed By: #### H PYLORI #### [facility] [address] [place] [address] Dr. Irene Cedillo COMPLEMENT TOTAL (CH50)on Complement, Total (CH50) >60 Normal >41 [facility] Comment on above: Result Comment: Age Male [...] Performed By: #### C K, CRP #### [facility] [address] [place] [address] Dr. Irene Cedillo CYCLIC CITRULLINATED PEPTIDE AB (CCP)on 10-19-2022 CCP Antibodies IgG/IgA 3 units Normal 0-19 [facility] Comment on above: Result Comment: Nega tive <20 Weak positive 20 - 39 Moderate positive 40 - 59 Strong positive >59 Performed By: #### C CPAB #### [facility] [address] [place] [address] Dr. Irene Cedillo MITICHONDRIAL (M2) ANTIBODYo n 10-19-2022 Mitochondrial (M2) Antibody <20.0 Normal 0.0-20.0 [facility] Comment on above: Result Comment: Nega tive 0.0 - 20.0 Equivocal 20.1 - 24.9 Positive >24.9 . Mitochondrial (M2) Antibodies are found in 90-96% of patients with primary biliary cirrhosis. Performed By: #### C K, CRP #### [facility] [address] [place] [address] Dr. Irene Cedillo RHEUMATOID FACTORon 10-19-19 23 RA Latex Turbid. <10.0 Normal <14.0 [facility] Comment on above: Performed By: #### C CPAB #### [facility] [address] [place] [address] Dr. Irene Cedillo RPR QUANTon 10-19-2022 Rapid Plasma Reagin, Quant Non-Reactive Normal NonRea<1:1 [facility] Comment on above: Result Comment: Plea se Note: This test does not meet current guidelines for screening and diagnosis of syphilis. This test is intended for following treatment response in patients being treated for syphilis infection. To screen for syphilis infection, a reflex cascade that includes both RPR and a treponema-specific assay should be utilized, such as Treponema pallidum (Syphilis) Screening Bath (858975) or Rapid Plasma Reagin (RPR) Test With Reflex to Quantitative RPR and Confirmatory Treponema pallidum Antibodies (258923). Performed By: #### T SH #### [facility] [address] [place] [address] Dr. Irene Cedillo SJOGRENS ANTIBODIES (Anti SS A/B)on 10-19-2022 Sjogren's Anti-SS-A <0.2 Normal 0.0-0.9 [facility] Comment on above: Performed By: #### S EDR #### [facility] [address] [place] [address] Dr. Irene Cedillo Sjogren's Anti-SS-B <0.2 Normal 0.0-0.9 [facility] Comment on above: Performed By: #### S EDR #### [facility] [address] [place] [address] Dr. Irene Cedillo SMOOTH MUSCLE ANTIBODYon Actin (Smooth Muscle) Antibody 5 Units Normal 0-19 [facility] Comment on above: Result Comment: Nega tive 0 - 19 Weak positive 20 - 30 Moderate to strong positive >30 . Actin Antibodies are found in 52-85% of patients with autoimmune hepatitis or chronic active hepatitis and in 22% of patients with primary biliary cirrhosis. Performed By: #### C K, CRP #### [facility] [address] [place] [address] Dr. Irene Cedillo THYROGLOBULIN ABon Thyroglobulin Antibody <1.0 Normal 0.0-0.9 [facility] Comment on above: Result Comment: Thyr oglobulin Antibody measured by [employer] Methodology Performed By: #### C CPAB #### [facility] [address] [place] [address] Dr. Irene Cedillo THYROID PEROXIDASE ABon Thyroid Peroxidase (TPO) Ab 11 IU/mL Normal 0-34 [facility] Comment on above: Performed By: #### T SH #### [facility] [address] [place] [address] Dr. Irene Cedillo CBC AUTO DIFFon 10-18-2022 BASO # 0.1 103/ul Normal 0.0-0.1 [facility] Comment on above: Performed By: #### C K, CRP #### [facility] [address] [place] [address] Dr. Irene Cedillo Basophils/100 WBC (Bld) 0.7 % Normal 0.2-2.0 [facility] Comment on above: Performed By: #### C K, CRP #### [facility] [address] [place] [address] Dr. Irene Cedillo EO # 0.2 103/ul Normal 0.0-0.7 [facility] Comment on above: Performed By: #### C K, CRP #### [facility] [address] [place] [address] Dr. Irene Cedillo Eosinophils/100 WBC (Bld) 2.8 % Normal 0.9-7.0 [facility] Comment on above: Performed By: #### C K, CRP #### [facility] [address] [place] [address] Dr. Irene Cedillo Erythrocyte distribution width (RBC) [Ratio] 13.4 % Normal 11.0-15.0 [facility] Comment on above: Performed By: #### C K, CRP #### [facility] [address] [place] [address] Dr. Irene Cedillo Hematocrit (Bld) [Volume fraction] 43.6 % Normal 36.0-48.0 [facility] Comment on above: Performed By: #### C K, CRP #### [facility] [address] [place] [address] Dr. Irene Cedillo Hemoglobin (Bld) [Mass/Vol] 14.1 g/dL Normal 12.0-16.0 [facility] Comment on above: Performed By: #### C K, CRP #### [facility] [address] [place] [address] Dr. Irene Cedillo IG # 0.01 10e3/ul Normal 0.00-0.03 [facility] Comment on above: Performed By: #### C K, CRP #### [facility] [address] [place] [address] Dr. Irene Cedillo IG % 0.1 % Normal 0.0-0.5 [facility] Comment on above: Performed By: #### C K, CRP #### [facility] [address] [place] [address] Dr. Irene Cedillo LYMPH # 2.5 103/ul Normal 1.2-3.8 [facility] Comment on above: Performed By: #### C K, CRP #### [facility] [address] [place] [address] Dr. Irene Cedillo Lymphocytes/100 WBC (Bld) 35.9 % Normal 20.5-60.0 [facility] Comment on above: Performed By: #### C K, CRP #### [facility] [address] [place] [address] Dr. Irene Cedillo MANUAL DIFF REQ NO Normal [facility] Comment on above: Performed By: #### C K, CRP #### [facility] [address] [place] [address] Dr. Irene Cedillo MCH (RBC) [Entitic mass] 29.6 pg Normal 26.7-34.0 [facility] Comment on above: Performed By: #### C K, CRP #### [facility] [address] [place] [address] Dr. Irene Cedillo MCHC (RBC) [Mass/Vol] 32.3 g/dL Normal 29.9-35.2 [facility] Comment on above: Performed By: #### C K, CRP #### [facility] [address] [place] [address] Dr. Irene Cedillo MCV (RBC) [Entitic vol] 91.6 fL Normal 81.0-99.0 [facility] Comment on above: Performed By: #### C K, CRP #### [facility] [address] [place] [address] Dr. Irene Cedillo MONO # 0.4 103/ul Normal 0.3-0.8 [facility] Comment on above: Performed By: #### C K, CRP #### [facility] [address] [place] [address] Dr. Irene Cedillo Monocytes/100 WBC (Bld) 5.2 % Normal 1.7-12.0 [facility] Comment on above: Performed By: #### C K, CRP #### [facility] [address] [place] [address] Dr. Irene Cedillo NEUT # 3.8 103/ul Normal 1.4-6.5 [facility] Comment on above: Performed By: #### C K, CRP #### [facility] [address] [place] [address] Dr. Irene Cedillo Neutrophils/100 WBC (Bld) 55.3 % Normal 43.0-75.0 [facility] Comment on above: Performed By: #### C K, CRP #### [facility] [address] [place] [address] Dr. Irene Cedillo Platelet mean volume (Bld) [Entitic vol] 9.7 fL Normal 9.5-13.5 [facility] Comment on above: Performed By: #### C K, CRP #### [facility] [address] [place] [address] Dr. Irene Cedillo PLT 271 103/ul Normal 150-450 [facility] Comment on above: Performed By: #### C K, CRP #### [facility] [address] [place] [address] Dr. Irene Cedillo RBC 4.76 106/ul Normal 4.20-5.40 [facility] Comment on above: Performed By: #### C K, CRP #### [facility] [address] [place] [address] Dr. Irene Cedillo WBC 6.9 103/ul Normal 4.0-11.0 [facility] Comment on above: Performed By: #### C K, CRP #### [facility] [address] [place] [address] Dr. Irene Cedillo CPKon 10-18-2022 CK [Catalytic activity/Vol] 57 U/L Normal 26-192 [facility] Comment on above: Performed By: #### T SH #### [facility] [address] [place] [address] Dr. Irene Cedillo CRPon 10-18-2022 CRP 0.8 mg/dL Normal <=1.0 [facility] Comment on above: Performed By: #### T SH #### [facility] [address] [place] [address] Dr. Irene Cedillo FREE T4on 10-18-2022 Free T4 [Mass/Vol] 1.07 ng/dL Normal 0.76-1.46 [facility] Comment on above: Performed By: #### C K, CRP #### [facility] [address] [place] [address] Dr. Irene Cedillo PROF 14(COMP METB)on 023 Albumin [Mass/Vol] 3.9 g/dL Normal 3.4-5.0 [facility] Comment on above: Performed By: #### T SH #### [facility] [address] [place] [address] Dr. Irene Cedillo Albumin/Globulin [Mass ratio] 1.1 {ratio} Normal [facility] Comment on above: Performed By: #### T SH #### [facility] [address] [place] [address] Dr. Irene Cedillo ALP [Catalytic activity/Vol] 90 U/L Normal 46-116 [facility] Comment on above: Performed By: #### T SH #### [facility] [address] [place] [address] Dr. Irene Cedillo ALT [Catalytic activity/Vol] 32 U/L Normal 14-59 [facility] Comment on above: Performed By: #### T SH #### [facility] [address] [place] [address] Dr. Irene Cedillo Anion gap [Moles/Vol] 13.8 mmol/L Normal [facility] Comment on above: Performed By: #### T SH #### [facility] [address] [place] [address] Dr. Irene Cedillo AST [Catalytic activity/Vol] 26 U/L Normal 15-37 [facility] Comment on above: Performed By: #### T SH #### [facility] [address] [place] [address] Dr. Irene Cedillo Bilirubin [Mass/Vol] 0.2 mg/dL Normal 0.2-1.0 [facility] Comment on above: Performed By: #### T SH #### [facility] [address] [place] [address] Dr. Irene Cedillo Calcium [Mass/Vol] 9.1 mg/dL Normal 8.5-10.1 [facility] Comment on above: Performed By: #### T SH #### [facility] [address] [place] [address] Dr. Irene Cedillo Chloride [Moles/Vol] 102 mmol/L Normal 98-107 [facility] Comment on above: Performed By: #### T SH #### [facility] [address] [place] [address] Dr. Irene Cedillo CO2 [Moles/Vol] 25.4 mmol/L Normal 21.0-32.0 [facility] Comment on above: Performed By: #### T SH #### [facility] [address] [place] [address] Dr. Irene Cedillo Creatinine [Mass/Vol] 0.64 mg/dL Normal 0.55-1.02 [facility] Comment on above: Performed By: #### T SH #### [facility] [address] [address] [address] Irene Cedillo EGFR-AF HAITIAN >60 Normal >=60 [facility] Comment on above: Performed By: #### T SH #### [facility] [address] [address] [address] Irene Cedillo EGFR-NON AF HAITIAN >60 Normal >=60 [facility] Comment on above: Performed By: #### T SH #### [facility] [address] [address] [address] Irene Cedillo Globulin (S) [Mass/Vol] 3.6 g/dL Normal [facility] Comment on above: Performed By: #### T SH #### [facility] [address] [place] [address] Dr. Irene Cedillo Glucose [Mass/Vol] 132 mg/dL Critically high 74-106 [facility] Comment on above: Performed By: #### T SH #### [facility] [address] [place] [address] Dr. Irene Cedillo Potassium [Moles/Vol] 4.2 mmol/L Normal 3.5-5.1 [facility] Comment on above: Performed By: #### T SH #### [facility] [address] [place] [address] Dr. Irene Cedillo Protein [Mass/Vol] 7.5 g/dL Normal 6.4-8.2 [facility] Comment on above: Performed By: #### T SH #### [facility] [address] [place] [address] Dr. Irene Cedillo Sodium [Moles/Vol] 137 mmol/L Normal 136-145 [facility] Comment on above: Performed By: #### T SH #### [facility] [address] [place] [address] Dr. Irene Cedillo Urea nitrogen [Mass/Vol] 19.0 mg/dL Critically high 7.0-18.0 [facility] Comment on above: Performed By: #### T SH #### [facility] [address] [place] [address] Dr. Irene Cedillo Urea nitrogen/Creatinine [Mass ratio] 29.7 mg/mg Normal [facility] Comment on above: Performed By: #### T SH #### [facility] [address] [place] [address] Dr. Irene Cedillo PROTIMEon 10-18-2022 INR Coag (PPP) [Relative time] {INR} Normal [facility] Comment on above: Performed By: #### C K, CRP #### [facility] [address] [place] [address] Dr. Irene Cedillo INR GUIDELINES SEE BELOW Normal [facility] Comment on above: Result Comment: JUAN RAMON RED INR: 2.0 - 3.0 CONDITIONS NOT LISTED BELOW 2.5 - 3.5 FOR PROSTHETIC HEART VALVE REPLACEMENT 2.5 - 3.5 RECURRENT THROMBOSIS Performed By: #### C K, CRP #### [facility] [address] [place] [address] Dr. Irene Cedillo PT Coag (PPP) [Time] 9.8 s Normal 9.0-11.6 [facility] Comment on above: Performed By: #### C K, CRP #### [facility] [address] [place] [address] Dr. Irene Cedillo PTTon 10-18-2022 aPTT Coag (Bld) [Time] 26.0 s Normal 22.3-36.2 [facility] Comment on above: Performed By: #### C K, CRP #### [facility] [address] [place] [address] Dr. Irene Cedillo SED RATE WESTERGRENon 2022 SED RATE 42 mm/hr Critically high <=30 [facility] Comment on above: Performed By: #### S EDR #### [facility] [address] [place] [address] Dr. Irene Cedillo TSHon 10-18-2022 TSH 0.718 uIU/mL Normal 0.358-3.740 [facility] Comment on above: Performed By: #### T SH #### [facility] [address] [place] [address] Dr. Irene Cedillo UA RANDOM W/MICROSCOPICon BACTERIA NONE SEEN Normal NONE SEEN [facility] Comment on above: Performed By: #### C CPAB #### [facility] [address] [place] [address] Dr. Irene Cedillo Bilirubin Ql (U) Negative Normal NEGATIVE [facility] Comment on above: Performed By: #### C CPAB #### [facility] [address] [place] [address] Dr. Irene Cedillo CAST NONE SEEN Normal NONE SEEN [facility] Comment on above: Performed By: #### C CPAB #### [facility] [address] [place] [address] Dr. Irene Cedillo Clarity (U) CLEAR Normal CLEAR [facility] Comment on above: Performed By: #### C CPAB #### [facility] [address] [place] [address] Dr. Irene Cedillo Color (U) LT. YELLOW Normal YELLOW [facility] Comment on above: Performed By: #### C CPAB #### [facility] [address] [place] [address] Dr. Irene Cedillo Crystals LM Nom (Urine sed) NONE SEEN Normal NONE SEEN [facility] Comment on above: Performed By: #### C CPAB #### [facility] [address] [place] [address] Dr. Irene Cedillo Epithelial cells LM Ql (Urine sed) NONE SEEN Normal NONE SEEN /RARE [facility] Comment on above: Performed By: #### C CPAB #### [facility] [address] [place] [address] Dr. Irene Cedillo Glucose Ql (U) Negative Normal NEGATIVE [facility] Comment on above: Performed By: #### C CPAB #### [facility] [address] [place] [address] Dr. Irene Cedillo Hemoglobin Ql (U) Negative Normal NEGATIVE [facility] Comment on above: Performed By: #### C CPAB #### [facility] [facility] [address] [place] [address] Dr. Irene Cedillo Ketones Ql (U) Negative Normal NEGATIVE [facility] Comment on above: Performed By: #### C CPAB #### [facility] [address] [place] [address] Dr. Irene Cedillo LEUKOCYTES Negative Normal NEGATIVE [facility] Comment on above: Performed By: #### C CPAB #### [facility] [address] [place] [address] Dr. Irene Cedillo MUCOUS NONE SEEN Normal NONE SEEN [facility] Comment on above: Performed By: #### C CPAB #### [facility] [address] [place] [address] Dr. Irene Cedillo Nitrite Ql (U) Negative Normal NEGATIVE [facility] Comment on above: Performed By: #### C CPAB #### [facility] [address] [place] [address] Dr. Irene Cedillo pH (U) 5.5 [pH] Normal 5-9 [facility] Comment on above: Performed By: #### C CPAB #### [facility] [address] [place] [address] Dr. Irene Cedillo RBC 0-2 Normal 0-2 [facility] Comment on above: Performed By: #### C CPAB #### [facility] [address] [place] [address] Dr. Irene Cedillo SPEC GRAVITY 1.020 Normal 1.005-<=1.025 [facility] Comment on above: Performed By: #### C CPAB #### [facility] [address] [place] [address] Dr. Irene Cedillo UA PROTEIN Negative Normal NEGATIVE/ TRACE [facility] Comment on above: Performed By: #### C CPAB #### [facility] [address] [place] [address] Dr. Irene Cedillo Urobilinogen Qn (U) 0.2 {Junior'U}/dL Normal 0.2 - 1. 0 [facility] Comment on above: Performed By: #### C CPAB #### [facility] [address] [place] [address] Dr. Irene Cedillo WBC NONE SEEN Normal NONE SEEN [facility] Comment on above: Performed By: #### C CPAB #### [facility] [address] [place] [address] Dr. Irene Cedillo HLA B 27on 09-21-2022 HLA-B27 Negative Normal [facility] Comment on above: Result Comment: HLA- B*27 Negative B27 allele interpretation for all loci based on IMGT/HLA database version 3.44 This test was developed and its performance characteristics determined by [employer]. It has not been cleared or approved by the Food and Drug Administration. [facility] CLIA ID Number [id number] . This test was performed using PCR (Polymerase Chain Reaction)/SSOP (Sequence Specific Oligonucleotide Probes) technique. SBT (Sequence Based Typing) and/or SSP (Sequence Specific Primers) may be used as supplemental methods when necessary. Please contact [facility] Customer Service at if you have any questions. . Director of [facility] Laboratory Dr Kris Salinas, PhD Performed By: #### C CPAB #### [facility] [address] [place] [address] Dr. Irene Cedillo ADRI by IFAon 09-15-2022 Antinuclear Antibodies, IFA Positive Abnormal [facility] Comment on above: Result Comment: Nega tive <1:80 Borderline 1:80 Positive >1:80 Performed By: #### S EDR #### [facility] [address] [place] [address] Dr. Irene Cedillo Centriole Pattern Normal [facility] Comment on above: Performed By: #### S EDR #### [facility] [address] [place] [address] Dr. Irene Cedillo Centromere Pattern Normal [facility] Comment on above: Performed By: #### S EDR #### [facility] [address] [address] [address] Irene Cedillo Homogeneous Pattern 1:160 Critically high [facility] Comment on above: Result Comment: ICAP nomenclature: AC-1 Performed By: #### S EDR #### [facility] [address] [address] [address] Irene Cedillo Midbody Pattern Normal [facility] Comment on above: Performed By: #### S EDR #### [facility] [address] [address] [address] Irene Cedillo Note: Comment Normal [facility] Comment on above: Result Comment: For [...] titers Nucleosomes, Histones Drug-induced SLE Speckled Sm, PARALEGAL SUPERVISOR, SCL-70, SLE,MCTD,PSS (diffuse form), SS-A/SS-B Sjogrens Nucleolar SCL-70, PM-1/SCL High titers Scleroderma, PM/DM Centromere Centromere PSS (limited form) w/Crest syndrome variable Nuclear Dot [id number] Primary Biliary Cirrhosis Nuclear GP210, Primary Biliary Cirrhosis Membrane margie A,B,C Performed By: #### S EDR #### [facility] [address] [place] [address] Dr. Irene Cedillo Nuclear Dot Pattern Normal [facility] Comment on above: Performed By: #### S EDR #### [facility] [address] [address] [address] Irene Cedillo Nuclear Membrane Pattern Normal [facility] Comment on above: Performed By: #### S EDR #### [facility] [address] [address] [address] Irene Cedillo Nucleolar Pattern Normal [facility] Comment on above: Performed By: #### S EDR #### [facility] [address] [address] [address] Irene Cedillo PCNA Pattern Normal [facility] Comment on above: Performed By: #### S EDR #### [facility] [address] [place] [address] Dr. Irene Cedillo Speckled Pattern Normal [facility] Comment on above: Performed By: #### S EDR #### [facility] [address] [place] [address] Dr. Irene Cedillo Spindle Apparatus Pattern Normal [facility] Comment on above: Performed By: #### S EDR #### [facility] [address] [place] [address] Dr. Irene Cedillo CYCLIC CITRULLINATED PEPTIDE AB (CCP)on 09-15-2022 CCP Antibodies IgG/IgA 0 units Normal 0-19 [facility] Comment on above: Result Comment: Nega tive <20 Weak positive 20 - 39 Moderate positive 40 - 59 Strong positive >59 Performed By: #### C CPAB #### [facility] [address] [place] [address] Dr. Irene Cedillo RHEUMATOID FACTORon 09-15-19 23 RA Latex Turbid. <10.0 Normal <14.0 [facility] Comment on above: Performed By: #### C K, CRP #### [facility] [address] [place] [address] Dr. Irene Cedillo CBC AUTO DIFFon 09-13-2022 BASO # 0.0 103/ul Normal 0.0-0.1 [facility] Comment on above: Performed By: #### H PYLORI #### [facility] [address] [place] [address] Dr. Irene Cedillo Basophils/100 WBC (Bld) 0.4 % Normal 0.2-2.0 [facility] Comment on above: Performed By: #### H PYLORI #### [facility] [address] [place] [address] Dr. Irene Cedillo EO # 0.3 103/ul Normal 0.0-0.7 [facility] Comment on above: Performed By: #### H PYLORI #### [facility] [address] [place] [address] Dr. Irene Cedillo Eosinophils/100 WBC (Bld) 4.4 % Normal 0.9-7.0 [facility] Comment on above: Performed By: #### H PYLORI #### [facility] [address] [place] [address] Dr. Irene Cedillo Erythrocyte distribution width (RBC) [Ratio] 13.2 % Normal 11.0-15.0 [facility] Comment on above: Performed By: #### H PYLORI #### [facility] [address] [place] [address] Dr. Irene Cedillo Hematocrit (Bld) [Volume fraction] 41.5 % Normal 36.0-48.0 [facility] Comment on above: Performed By: #### H PYLORI #### [facility] [address] [place] [address] Dr. Irene Cedillo Hemoglobin (Bld) [Mass/Vol] 14.0 g/dL Normal 12.0-16.0 [facility] Comment on above: Performed By: #### H PYLORI #### [facility] [address] [place] [address] Dr. Irene Cedillo IG # 0.02 10e3/ul Normal 0.00-0.03 [facility] Comment on above: Performed By: #### H PYLORI #### [facility] [address] [place] [address] Dr. Irene Cedillo IG % 0.3 % Normal 0.0-0.5 [facility] Comment on above: Performed By: #### H PYLORI #### [facility] [address] [place] [address] Dr. Irene Cedillo LYMPH # 2.5 103/ul Normal 1.2-3.8 [facility] Comment on above: Performed By: #### H PYLORI #### [facility] [address] [place] [address] Dr. Irnee Cedillo Lymphocytes/100 WBC (Bld) 34.4 % Normal 20.5-60.0 [facility] Comment on above: Performed By: #### H PYLORI #### [facility] [address] [place] [address] Dr. Irene Cedillo MANUAL DIFF REQ NO Normal [facility] Comment on above: Performed By: #### H PYLORI #### [facility] [address] [place] [address] Dr. Irene Cedillo MCH (RBC) [Entitic mass] 30.0 pg Normal 26.7-34.0 [facility] Comment on above: Performed By: #### H PYLORI #### [facility] [address] [place] [address] Dr. Irene Cedillo MCHC (RBC) [Mass/Vol] 33.7 g/dL Normal 29.9-35.2 [facility] Comment on above: Performed By: #### H PYLORI #### [facility] [address] [place] [address] Dr. Irene Cedillo MCV (RBC) [Entitic vol] 88.9 fL Normal 81.0-99.0 [facility] Comment on above: Performed By: #### H PYLORI #### [facility] [address] [place] [address] Dr. Irene Cedillo MONO # 0.4 103/ul Normal 0.3-0.8 [facility] Comment on above: Performed By: #### H PYLORI #### [facility] [address] [place] [address] Dr. Irene Cedillo Monocytes/100 WBC (Bld) 5.6 % Normal 1.7-12.0 [facility] Comment on above: Performed By: #### H PYLORI #### [facility] [address] [place] [address] Dr. Irene Cedillo NEUT # 4.0 103/ul Normal 1.4-6.5 [facility] Comment on above: Performed By: #### H PYLORI #### [facility] [address] [place] [address] Dr. Irene Cedillo Neutrophils/100 WBC (Bld) 54.9 % Normal 43.0-75.0 [facility] Comment on above: Performed By: #### H PYLORI #### [facility] [address] [place] [address] Dr. Irene Cedillo Platelet mean volume (Bld) [Entitic vol] 9.6 fL Normal 9.5-13.5 [facility] Comment on above: Performed By: #### H PYLORI #### [facility] [address] [address] [address] Irene Cedillo PLT 314 103/ul Normal 150-450 [facility] Comment on above: Performed By: #### H PYLORI #### [facility] [address] [address] [address] Irene Cedillo RBC 4.67 106/ul Normal 4.20-5.40 [facility] Comment on above: Performed By: #### H PYLORI #### [facility] [address] [address] [address] Irene Cedillo WBC 7.3 103/ul Normal 4.0-11.0 [facility] Comment on above: Performed By: #### H PYLORI #### [facility] [address] [place] [address] Dr. Irene Cedillo CRPon 09-13-2022 CRP 0.3 mg/dL Normal <=1.0 [facility] Comment on above: Performed By: #### C K, CRP #### [facility] [address] [place] [address] Dr. Irene Cedillo RENAL FUNCTION PANELon 09-13 Albumin [Mass/Vol] 3.7 g/dL Normal 3.4-5.0 [facility] Comment on above: Performed By: #### R ENAL #### [facility] [address] [place] [address] Dr. Irene Cedillo Calcium [Mass/Vol] 9.3 mg/dL Normal 8.5-10.1 [facility] Comment on above: Performed By: #### R ENAL #### [facility] [address] [place] [address] Dr. Irene Cedillo Chloride [Moles/Vol] 105 mmol/L Normal 98-107 [facility] Comment on above: Performed By: #### R ENAL #### [facility] [address] [place] [address] Dr. Irene Cedillo CO2 [Moles/Vol] 30.5 mmol/L Normal 21.0-32.0 [facility] Comment on above: Performed By: #### R ENAL #### [facility] [address] [address] [address] Irene Cedillo Creatinine [Mass/Vol] 0.64 mg/dL Normal 0.55-1.02 [facility] Comment on above: Performed By: #### R ENAL #### [facility] [address] [address] [address] Irene Cedillo EGFR-AF HAITIAN >60 Normal >=60 [facility] Comment on above: Performed By: #### R ENAL #### [facility] [address] [address] [address] Irene Cedillo EGFR-NON AF HAITIAN >60 Normal >=60 [facility] Comment on above: Performed By: #### R ENAL #### [facility] [address] [place] [address] Dr. Irene Cedillo Glucose [Mass/Vol] 130 mg/dL Critically high 74-[address] [facility] Comment on above: Performed By: #### R ENAL #### [facility] [address] [address] [address] Irene Cedillo Phosphate [Mass/Vol] 3.9 mg/dL Normal 2.6-4.7 [facility] Comment on above: Performed By: #### R ENAL #### [facility] [address] [place] [address] Dr. Irene Cedillo Potassium [Moles/Vol] 4.0 mmol/L Normal 3.5-5.1 [facility] Comment on above: Performed By: #### R ENAL #### [facility] [address] [address] [address] Irene Cedillo Sodium [Moles/Vol] 143 mmol/L Normal 136-145 [facility] Comment on above: Performed By: #### R ENAL #### [facility] [address] [place] [address] Dr. Irene Cedillo Urea nitrogen [Mass/Vol] 16.0 mg/dL Normal 7.0-18.0 [facility] Comment on above: Performed By: #### R ENAL #### [facility] [address] [address] [address] Irene Cedillo SED RATE [facility] 2022 SED RATE 20 mm/hr Normal <=30 [facility] Comment on above: Performed By: #### C K, CRP #### [facility] [address] [address] [address] Irene Cedillo MRI ANKLE LT WO [...] TONY DICKINSON Date: 2022-08-26 09:36 Normal [facility] MG MAMM SCREEN 3D RIAN CADon 08-08-2022 MG MAMM SCREEN 3D RIAN CAD Patient: EMILY MACIAS Exam Date: 08/08/2022 : 1960 Gender:F Ordering : DR. KENDRA MCKINLEY M.D. Admission #: [id number] Family : DR NETTA MONTOYA M.D. Order #: [id number] CLICK HERE TO VIEW EXAM RADIOLOGY REPORT [...] breast cancer at age 78. LOCATION: [facility] BREAST COMPOSITION: Heterogeneously dense,which may obscure small [...] M.D. on 08/09/2022 at 15:10 Normal [facility] GLYCOHEMOGLOBIN A1Con 2021 ADA RECOMMENDATION SEE BELOW Normal [facility] Comment on above: Result Comment: ADA RECOMMENDED LIMIT 4.0 - 6.0 ADA THERAPEUTIC TARGET < 7.0 ACTION SUGGESTED > 7.0 Performed By: #### C CPAB #### [facility] [address] [address] [address] Irene Cedillo Glucose [Mass/Vol] 128 mg/dL Normal [facility] Comment on above: Performed By: #### C CPAB #### [facility] [address] [address] [address] Irene Cedillo HbA1c (Bld) [Mass fraction] 6.1 % Normal 4.5-6.2 [facility] Comment on above: Performed By: #### C CPAB #### [facility] [address] [address] [address] Irene Cedillo XR FOOT RIAN MIN [...] PELON ALEXANDRE Date: 2022-07-06 06:21 Normal [facility] OVA AND PARASITE EXAMINATION on 04-13-2022 Ova + Parasite Exam Final report Normal [facility] Comment on above: Result Comment: Thes e results were obtained using wet preparation(s) and trichrome stained smear. This test does not include testing for Cryptosporidium parvum, Cyclospora, or Microsporidia. Performed By: #### S EDR #### [facility] [address] [address] [address] Irene Cedillo Result 1 Comment Normal [facility] Comment on above: Result Comment: No o va, cysts, or parasites seen. . One negative specimen does not rule out the possibility of a parasitic infection. Performed By: #### S EDR #### [facility] [address] [address] [address] Irene Cedillo CALPROTECTIN, FECALon 2021 Calprotectin, Fecal 36 ug/g Normal 0-120 [facility] Comment on above: Result Comment: Conc entration Interpretation Follow-Up <16 - 50 ug/g Normal None >50 -120 ug/g Borderline Re-evaluate in 4-6 weeks >120 ug/g Abnormal Repeat as clinically indicated Performed By: #### C K, CRP #### [facility] [address] [address] [address] Irene Cedillo HELICOBACTER PYLORI AG STOOL on 04-12-2022 H. pylori Stool Ag, EIA Negative Normal Negative [facility] Comment on above: Performed By: #### H PYLORI #### [facility] [address] [place] [address] Dr. Irene Cedillo LACTOFERRIN FECAL QUANTon Lactoferrin, Fecal, Quant. <1.00 Normal 0.00-7.24 [facility] Comment on above: Result Comment: Re [...] (IBS). Performed By: #### T SH #### [facility] [address] [place] [address] Dr. Irene Cedillo C. DIFF PCRon 04-08-2022 C. DIFFICILE PCR Negative Normal NEGATIVE [facility] Comment on above: Performed By: #### S EDR #### [facility] [address] [place] [address] Dr. Irene Cedillo GI PANEL (PCR)on 04-08-2022 Adenovirus F 40/41 Not detected Normal NOT DETECTED [facility] Comment on above: Performed By: #### S EDR #### [facility] [address] [place] [address] Dr. Irene Cedillo Astrovirus Not detected Normal NOT DETECTED [facility] Comment on above: Performed By: #### S EDR #### [facility] [address] [place] [address] Dr. Irene Cedillo C. Diff toxin A/B Not detected Normal NOT DETECTED [facility] Comment on above: Performed By: #### S EDR #### [facility] [address] [place] [address] Dr. Irene Cedillo Campylobacter Not detected Normal NOT DETECTED [facility] Comment on above: Performed By: #### S EDR #### [facility] [address] [place] [address] Dr. Irene Cedillo Cryptosporidium Not detected Normal NOT DETECTED [facility] Comment on above: Performed By: #### S EDR #### [facility] [address] [place] [address] Dr. Irene Cedillo Cyclos. Cayetanensis Not detected Normal NOT DETECTED [facility] Comment on above: Performed By: #### S EDR #### [facility] [address] [place] [address] Dr. Irene Cedillo E. Coli O157 Not Applicable Normal Not Applicable [facility] Comment on above: Performed By: #### S EDR #### [facility] [address] [place] [address] Dr. Irene Cedillo E. histolytica Not detected Normal NOT DETECTED [facility] Comment on above: Performed By: #### S EDR #### [facility] [address] [place] [address] Dr. Irene Cedillo EAEC Not detected Normal NOT DETECTED [facility] Comment on above: Performed By: #### S EDR #### [facility] [address] [place] [address] Dr. Irene Cedillo EIEC Not detected Normal NOT DETECTED [facility] Comment on above: Performed By: #### S EDR #### [facility] [address] [place] [address] Dr. Irene Cedillo EPEC Not detected Normal NOT DETECTED [facility] Comment on above: Performed By: #### S EDR #### [facility] [address] [place] [address] Dr. Irene Cedillo ETEC Not detected Normal NOT DETECTED [facility] Comment on above: Performed By: #### S EDR #### [facility] [address] [place] [address] Dr. Irene Ceidllo G. Lamblia Not detected Normal NOT DETECTED [facility] Comment on above: Performed By: #### S EDR #### [facility] [address] [place] [address] Dr. Irene VIGIL CONTROLS PASSED Normal [facility] Comment on above: Performed By: #### S EDR #### [facility] [address] [address] [address] Irene ACOSTA MITCHEL HEADER GI PANEL BACTERIA Normal [facility] Comment on above: Performed By: #### S EDR #### [facility] [address] [address] [address] Irene CALDERA ECOLI GI PANEL DIARRHEAGEN IC E.COLI / SHIGELLA Normal [facility] Comment on above: Performed By: #### S EDR #### [facility] [address] [address] [address] Irene CALDERA INFO SEE BELOW Normal [facility] Comment on above: Result Comment: EAEC - Enteroaggregative E. Coli EPEC- Enteropathogenic E. Coli ETEC- Enterotoxigenic E. Coli lt/st STEC- Shigella-like toxin-producing E. Coli stx1/stx2 EIEC- Shigella/Enteroinvasive E. Coli Performed By: #### S EDR #### [facility] [address] [address] [address] Irene CALDERA PARASITES GI PANEL PARASITES Normal [facility] Comment on above: Performed By: #### S EDR #### [facility] [address] [address] [address] Irene CALDERA VIRUS GI PANEL VIRUSES Normal [facility] Comment on above: Performed By: #### S EDR #### [facility] [address] [address] [address] Irene Cedillo Norovirus GI/GII Not detected Normal NOT DETECTED [facility] Comment on above: Performed By: #### S EDR #### [facility] [address] [address] [address] Irene Cedillo P. Shigelloides Not detected Normal NOT DETECTED [facility] Comment on above: Performed By: #### S EDR #### [facility] [address] [address] [address] Irene Cedillo Rotavirus A Not detected Normal NOT DETECTED [facility] Comment on above: Performed By: #### S EDR #### [facility] [address] [place] [address] Dr. Irene Cedillo Salmonella Not detected Normal NOT DETECTED [facility] Comment on above: Performed By: #### S EDR #### [facility] [address] [place] [address] Dr. Irene Cedillo Sapovirus Not detected Normal NOT DETECTED [facility] Comment on above: Performed By: #### S EDR #### [facility] [address] [place] [address] Dr. Irene Cedillo STEC Not detected Normal NOT DETECTED [facility] Comment on above: Performed By: #### S EDR #### [facility] [address] [place] [address] Dr. Irene Cedillo Vibrio Not detected Normal NOT DETECTED [facility] Comment on above: Performed By: #### S EDR #### [facility] [address] [place] [address] Dr. Irene Cedillo Vibrio Cholera Not detected Normal NOT DETECTED [facility] Comment on above: Performed By: #### S EDR #### [facility] [address] [place] [address] Dr. Irene Cedillo Y. Enterocolitica Not detected Normal NOT DETECTED [facility] Comment on above: Performed By: #### S EDR #### [facility] [address] [place] [address] Dr. Irene Cedillo BUNon 03-27-2022 Urea nitrogen [Mass/Vol] 20.0 mg/dL Critically high 7.0-18.0 [facility] Comment on above: Performed By: #### C K, CRP #### [facility] [address] [place] [address] Dr. Irene Cedillo CREATININEon 03-27-2022 Creatinine [Mass/Vol] 0.75 mg/dL Normal 0.55-1.02 [facility] Comment on above: Performed By: #### C K, CRP #### [facility] [address] [place], [place] [address] Dr. Irene Cedillo EGFR-AF HAITIAN >60 Normal >=60 [facility] Comment on above: Performed By: #### C K, CRP #### [facility] [address] [place], [place] [address] Dr. Irene Cedillo EGFR-NON AF HAITIAN >60 Normal >=60 [facility] Comment on above: Performed By: #### C K, CRP #### [facility] [address] [place] [id number] Irene Cedillo CT ABD/PELV W CONon [...] and/or use of iterative reconstruction technique. Findings: Sr. Logistics Analyst: No acute abnormalities are seen. Liver/Biliary System: [...] CIELO GARCIA Date: 2022-03-27 21:37 Normal [facility] POINT OF CARE GLUCOSEon 03-10 Glucose [Mass/Vol] 173 mg/dL Critically high 74-106 [facility] Comment on above: Performed By: #### C CPAB #### [facility] [address] [place] [address] Dr. Irene Cedillo FSHon 02-25-2022 FSH 46.6 mIU/mL Normal [facility] Comment on above: Result Comment: Adul t Female: Follicular phase 3.5 - 12.5 Ovulation phase 4.7 - 21.5 Luteal phase 1.7 - 7.7 Postmenopausal 25.8 - 134.8 Performed By: #### C K, CRP #### [facility] [address] [place] [address] Dr. Irene Cedillo LUTEINIZING HORMONE (LH)on 0 02-25-2022 LH 33.3 mIU/mL Normal [facility] Comment on above: Result Comment: Adul t Female: Follicular phase 2.4 - 12.6 Ovulation phase 14.0 - 95.6 Luteal phase 1.0 - 11.4 Postmenopausal 7.7 - 58.5 Performed By: #### H PYLORI #### [facility] [address] [place] [address] [address] Irene Cedillo TESTOSTERONE, TOTALon 2021 Testosterone [Mass/Vol] 6 ng/dL Normal 3-67 [facility] Comment on above: Performed By: #### H PYLORI #### [facility] [address] [place] [address] Dr. Irene Cedillo THYROID PEROXIDASE ABon 02-08 Thyroid Peroxidase (TPO) Ab <8 Normal 0-34 [facility] Comment on above: Performed By: #### C K, CRP #### [facility] [address] [place] [address] [address] Irene Cedillo FREE T3on 02-24-2022 FREE T3 2.47 pg/mlL Normal 2.18-3.98 [facility] Comment on above: Performed By: #### S EDR #### [facility] [address] [place] [address] Dr. Irene Cedillo LYME DISEASE AB EIA W REFLEX on 01-31-2022 Lyme Total Antibody,EIA Negative Normal Negative [facility] Comment on above: Result Comment: Lyme Antibody Negative No laboratory evidence of infection with B. burgdorferi (Lyme disease). Negative results may occur in patients recently infected (greater than or equal to 14 days) with B. burgdorferi. If recent infection is suspected, repeat testing on a new sample collected in 7 to 14 days is recommended. Performed By: #### T SH #### [facility] [address] [place] [address] Dr. Irene Cedillo CPKon 01-30-2022 CK [Catalytic activity/Vol] 76 U/L Normal 26-192 [facility] Comment on above: Performed By: #### C K, CRP #### [facility] [address] [place] [address] Dr. Irene Cedillo CRPon 01-30-2022 CRP 0.4 mg/dL Normal <=1.0 [facility] Comment on above: Performed By: #### C K, CRP #### [facility] [address] [place] [address] Dr. Irene Cedillo SED RATE WESTERGRENon 2021 SED RATE 8 mm/hr Normal <=30 [facility] Comment on above: Performed By: #### H PYLORI #### [facility] [address] [place] [address] [address] Irene Cedillo C REACTIVE PROTEINon 021 CRP [Mass/Vol] 9.3 mg/L High 0.0-7.[address] [facility] Comment on above: Performed By: #### 6 [id number] #### [facility] [address] [place] [address], [facility] KNEE LEFT 3 VWSon 09-06-2021 KNEE LEFT 3 [facility] Department of Radiology [address] [place] [id number] ======== Patient Name: EMILY MACIAS : 1960 Sex: F Age: Race: White Pt. Location: Patient Status: Ordered Date: 09/06/2021 1:35:00 PM Completed Date: 09/06/2021 01:56 PM Requesting Provider: KIARA WILLETT Attending Provider: Report Copy To: Signs & Symptoms: M25.562 Pain in left knee I10 History: [place] Comments: Evaluate Exam: KNEE LEFT 3 [facility] ======== KNEE LEFT 3 [facility] 09/06/2021 1:56 PM CLINICAL INDICATIONS: M25.562 [...] above Electronically signed: Olga Murray. Transcribed by: [email or web address], User Resident: Electronically Signed by: OLGA MURRAY @ 09/06/2021 03:09 PM Normal [facility] Comment on above: Order Comment: Evalu ate KNEE RIGHT 3 [facility] KNEE RIGHT 3 [facility] Department of Radiology [address] [place] [id number] ======== Patient Name: EMILY MACIAS : 1960 Sex: F Age: Race: White Pt. Location: Patient Status: Ordered Date: 09/06/2021 1:35:00 PM Completed Date: 09/06/2021 01:56 PM Requesting Provider: KIARA WILLETT Attending Provider: Report Copy To: Signs & Symptoms: M25.561 Pain in right knee I10 History: [place] Comments: Evaluate Exam: KNEE RIGHT 3 [facility] ======== KNEE RIGHT 3 S 09/06/2021 [...] above Electronically signed: Olga Murray. Transcribed by: [email or web address], User Resident: Electronically Signed by: OLGA MURRAY @ 09/06/2021 03:08 PM Normal [facility] Comment on above: Order Comment: Evalu ate SEDIMENTATION RATEon 021 SED RATE 7 mm/hr Normal 0-[address] [facility] Comment on above: Performed By: #### 5 [id number] #### [place] [address] [address]I [address] Vital Signs Date Time Vital Sign Value Performing Clinician Facility 10-21-2024 09:08-0500 Body height 165.1 cm Netta Montoya MD Work Phone: [facility] 10-21-2024 09:08-0500 Body mass index (BMI) [Ratio] 31.9 kg/m2 Netta Montoya MD Work Phone: [phone] [place] [address] 10-21-2024 09:08-0500 Body weight 87.08 kg Netta Montoya MD Work Phone: [phone] [place] [address] 10-21-2024 09:08-0500 Diastolic blood pressure 64 mm[Hg] Netta Montoya MD Work Phone: [phone] [place] [address] 10-21-2024 09:08-0500 Heart rate 90 /min Netta Montoya MD Work Phone: [facility] 10-21-2024 09:08-0500 SaO2% (BldA) [Mass fraction] 97 % Netta Montoya MD Work Phone: [facility] 10-21-2024 09:08-0500 Systolic blood pressure 107 mm[Hg] Netta Montoya MD Work Phone: [facility] 09-30-2024 13:53-0500 Body height 160.02 cm Netta Montoya MD Work Phone: [facility] 09-30-2024 13:53-0500 Body mass index (BMI) [Ratio] 33.1 kg/m2 Netta Montoya MD Work Phone: [facility] 09-30-2024 13:53-0500 Body weight 84.82 kg Netta Montoya MD Work Phone: [phone] [place] [address] 09-30-2024 13:53-0500 Diastolic blood pressure 70 mm[Hg] Netta Montoya MD Work Phone: [facility] 01-21-2025 13:53-0500 Heart rate 85 /min Netta oMntoya MD Work Phone: [facility] 09-30-2024 13:53-0500 Systolic blood pressure 101 mm[Hg] Netta Montoya MD Work Phone: [facility] 08-29-2024 11:03-0500 Diastolic blood pressure 68 mm[Hg] Netta Montoya MD Work Phone: [facility] 08-29-2024 11:03-0500 Heart rate 89 /min Netta Montoya MD Work Phone: [facility] 08-29-2024 11:03-0500 Systolic blood pressure 115 mm[Hg] Netta Montoya MD Work Phone: [facility] 07-29-2024 09:33-0500 Body height 160.02 cm Netta Montoya MD Work Phone: [facility] 07-29-2024 09:33-0500 Body mass index (BMI) [Ratio] 34.3 kg/m2 Netta Montoya MD Work Phone: [facility] 07-29-2024 09:33-0500 Body weight 87.99 kg Netta Montoya MD Work Phone: [facility] 07-29-2024 09:33-0500 Diastolic blood pressure 69 mm[Hg] Netta Montoya MD Work Phone: [facility] 07-29-2024 09:33-0500 Heart rate 75 /min Netta Montoya MD Work Phone: [facility] 07-29-2024 09:33-0500 Systolic blood pressure 101 mm[Hg] Netta Montoya MD Work Phone: [facility] 07-17-2024 13:59-0500 Body height 160.02 cm Netta Montoya MD Work Phone: [facility] 07-17-2024 13:59-0500 Body mass index (BMI) [Ratio] 34.5 kg/m2 Netta Montoya MD Work Phone: [facility] 07-17-2024 13:59-0500 Body weight 88.45 kg Netta Montoya MD Work Phone: [facility] 07-17-2024 13:59-0500 Diastolic blood pressure 69 mm[Hg] Netta Montoya MD Work Phone: [facility] 07-17-2024 13:59-0500 Heart rate 83 /min Netta Montoya MD Work Phone: [facility] 07-17-2024 13:59-0500 SaO2% (BldA) [Mass fraction] 93 % Netta Montoya MD Work Phone: [facility] 07-17-2024 13:59-0500 Systolic blood pressure 117 mm[Hg] Netta Montoya MD Work Phone: [facility] 02-21-2024 13:19-0400 Body height 165.1 cm Sagar Krause MD Work Phone: [facility] 02-21-2024 13:19-0400 Body mass index (BMI) [Ratio] 31.78 kg/m2 Sagar Krause MD Work Phone: [facility] 02-21-2024 13:19-0400 Body temperature 97.11 [degF] Sagar Krause MD Work Phone: [facility] 02-21-2024 13:19-0400 Body weight 86.64 kg Sagar Krause MD Work Phone: [facility] 12-26-2023 13:54-0400 Body height 165.1 cm Radhamo Asif DOUBLE BASS PLAYER-CLINIC MANAGER Work Phone: [facility] 12-26-2023 13:54-0400 Body mass index (BMI) [Ratio] 33.45 kg/m2 Radha Brandee DOUBLE BASS PLAYER-CLINIC MANAGER Work Phone: [facility] 12-26-2023 13:54-0400 Body weight 91.17 kg Radha Asif DOUBLE BASS PLAYER-CLINIC MANAGER Work Phone: [employer] 08-13-2023 09:30-0500 Body height 161.93 cm Netta Montoya Other Benef[employer] Other 08-13-2023 09:30-0500 Body mass index (BMI) [Ratio] 34.46 kg/m2 Netta Montoya Other [employer] Other 08-13-2023 09:30-0500 Body weight 90.36 kg Netta Montoya Other [employer] Other 08-13-2023 09:30-0500 Diastolic blood pressure 70 mm[Hg] Netat Montoya Other [employer] Other 08-13-2023 09:30-0500 Systolic blood pressure 110 mm[Hg] Netta Montoya Other [employer] Other 08-09-2023 14:48-0500 Body height 165.1 cm Sagar Krause MD Work Phone: [facility] [employer] [facility] 08-09-2023 14:48-0500 Body mass index (BMI) [Ratio] 33.58 kg/m2 Sagar Krause MD Work Phone: [facility] 08-09-2023 14:48-0500 Body weight 91.54 kg Sagar Krause MD Work Phone: [facility] 04-24-2023 13:30-0400 Body height 161.93 cm Siva Ron Other [employer] Other 04-24-2023 13:30-0400 Body mass index (BMI) [Ratio] 32.52 kg/m2 Siva Ron Other [employer] Other 04-24-2023 13:30-0400 Body weight 85.28 kg Siva Ron Other [employer] Other 04-24-2023 13:30-0400 Diastolic blood pressure 70 mm[Hg] Siva Ron Other [employer] Other 04-24-2023 13:30-0400 Systolic blood pressure 126 mm[Hg] Siva Ron Other [employer] Other 02-22-2023 15:15-0400 Body height 165.1 cm Xanga DOUBLE BASS PLAYER[employer] Work Phone: [facility] 02-22-2023 15:15-0400 Body mass index (BMI) [Ratio] 31.51 kg/m2 Xanga DOUBLE BASS PLAYER-CLINIC MANAGER Work Phone: [facility] [employer] [facility] 02-22-2023 15:15-0400 Body temperature 98.01 [degF] Xanga DOUBLE BASS PLAYER[employer] Work Phone: [facility] 02-22-2023 15:15-0400 Body weight 85.9 kg Xanga DOUBLE BASS PLAYER[employer] Work Phone: [facility] [employer] [facility] 01-09-2023 09:30-0400 Body height 161.93 cm Netta Montoya Other [employer] Other 01-09-2023 09:30-0400 Body mass index (BMI) [Ratio] 33.04 kg/m2 Netta Montoya Other [employer] Other 01-09-2023 09:30-0400 Body weight 86.64 kg Netta Montoya Other Benefitter Other 01-09-2023 09:30-0400 Diastolic blood pressure 60 mm[Hg] Netta Montoya Other Benef[employer] Other 01-09-2023 09:30-0400 SaO2% (BldA) [Mass fraction] 97 % Netta Montoya Other Benefitter Other 01-09-2023 09:30-0400 Systolic blood pressure 112 mm[Hg] Netta Montoya Other Benef[employer] Other 01-01-2023 15:45-0400 Body height 161.93 cm Siva Ron Other Benef[employer] Other 01-01-2023 15:45-0400 Body mass index (BMI) [Ratio] 34.08 kg/m2 Siva Ariadne Other Benefitter Other 01-01-2023 15:45-0400 Body weight 89.36 kg Siva Ron Other Benefitter Other 01-01-2023 15:45-0400 Diastolic blood pressure 71 mm[Hg] Siva Ron Other Benef[employer] Other 01-01-2023 15:45-0400 Systolic blood pressure 116 mm[Hg] Siva Ron Other Benefitter Other 11-30-2022 13:58-0400 Body height 165.1 cm Sagar Krause MD Work Phone: [facility] 11-30-2022 13:58-0400 Body mass index (BMI) [Ratio] 32.12 kg/m2 Sagar Krause MD Work Phone: [facility] 11-30-2022 13:58-0400 Body weight 87.54 kg Sagar Krause MD Work Phone: [facility] 10-10-2022 14:30-0500 Body height 161.93 cm Netta Montoya Other Benefitter Other 10-10-2022 14:30-0500 Body mass index (BMI) [Ratio] 34.08 kg/m2 Netta Montoya Other Benef[employer] Other 10-10-2022 14:30-0500 Body weight 89.36 kg Netta Montoya Other Benefitter Other 10-10-2022 14:30-0500 Diastolic blood pressure 70 mm[Hg] Netta Montoya Other Benef[employer] Other 10-10-2022 14:30-0500 Systolic blood pressure 108 mm[Hg] Netta Montoya Other Benefitter Other 09-13-2022 16:30-0500 Body height 161.93 cm Netta Montoya Other Benefitter Other 09-13-2022 16:30-0500 Body mass index (BMI) [Ratio] 33.21 kg/m2 Netta Montoya Other Benefitter Other 09-13-2022 16:30-0500 Body weight 87.09 kg Netta Montoya Other Benefitter Other 09-13-2022 16:30-0500 Diastolic blood pressure 62 mm[Hg] Netta Montoya Other Benefitter Other 09-13-2022 16:30-0500 SaO2% (BldA) [Mass fraction] 97 % Netta Montoya Other Benefitter Other 09-13-2022 16:30-0500 Systolic blood pressure 108 mm[Hg] Netta Montoya Other Benefitter Other Encounters Encounter Date Encounter Type Care Provider Facility Start: 10-21-2024 End: 10-21-2024 ambulatory Netta Montoya MD Work Phone: [facility] Work Phone: Start: 10-21-2024 End: 10-21-2024 Patient encounter procedure Netta Montoya MD Work Phone: [facility] [address] Physician [facility] Work Phone: Start: 09-30-2024 End: 09-30-2024 Patient encounter procedure Netta Montoya MD Work Phone: [facility] [place] Work Phone: Start: 09-30-2024 End: 09-30-2024 ambulatory Netta Montoya MD Work Phone: [facility] Work Phone: Start: 09-30-2024 End: 09-30-2024 Patient encounter procedure Netta Montoya MD Work Phone: [facility] Work Phone: Start: 09-19-2024 End: 09-19-2024 [address] [facility] Start: 09-16-2024 ambulatory NARENDRANATH LAKSHMIPATHY [facility] Start: 09-08-2024 End: 09-08-2024 ambulatory Chandra Edouard MD Facility:[facility] Start: 08-29-2024 End: 08-29-2024 Patient encounter procedure Netta Montoya MD Work Phone: [facility] [place] Work Phone: Start: 08-29-2024 End: 08-29-2024 ambulatory Netta Montoya Facility:[facility] Start: 08-29-2024 End: 08-29-2024 Patient encounter procedure Netta Montoya MD Work Phone: [facility] [address] [facility] Physician [facility] Work Phone: Start: 08-18-2024 End: 08-18-2024 ambulatory Netta Montoya MD Facility:[facility] Start: 07-30-2024 ambulatory HILARY FENTONTYRARAGHUALBERTINA [facility] Start: 07-29-2024 End: 07-29-2024 Patient encounter procedure Netta Montoya MD Work Phone: [facility] Work Phone: Start: 07-17-2024 End: 07-17-2024 Patient encounter procedure Netta Montoya MD Work Phone: [facility] Work Phone: Start: 05-13-2024 ambulatory [facility] Start: 04-14-2024 End: 05-11-2024 [facility] Start: 02-21-2024 End: 02-21-2024 Office outpatient visit 25 minutes Sagar Krause MD Work Phone: [facility] Comment on above: Hx of total knee art hroplasty, left (Primary Dx); Pain in prosthetic joint, subsequent encounter Start: 02-21-2024 End: 02-21-2024 Subsequent hospital visit by physician Sagar Krause MD Work Phone: [facility] Start: 02-21-2024 ambulatory NETTA MONTOYA [facility] Start: 02-11-2024 ambulatory Netta Montoya MD Facility:[facility] Start: 01-18-2024 End: 01-18-2024 ambulatory Netta Montoya MD Facility:[facility] Start: 01-09-2024 End: 02-09-2024 ambulatory [facility] Start: 12-26-2023 End: 01-09-2024 ambulatory [facility] Start: 12-26-2023 End: 12-26-2023 Office outpatient visit 15 minutes Radha [facility] DOUBLE BASS PLAYER-CLINIC MANAGER Work Phone: [facility] Comment on above: Hx of total knee art hroplasty, left (Primary Dx) Start: 12-26-2023 End: 12-26-2023 Subsequent hospital visit by physician Radha SANTOS Work Phone: [facility] Start: 12-26-2023 ambulatory RADHA BRANDEE [facility] Start: 12-20-2023 End: 12-20-2023 ambulatory Netta Montoya MD Facility:[facility] Start: 12-20-2023 End: 12-20-2023 ambulatory Netta Montoya MD Facility:[facility] Start: 10-22-2023 End: 10-22-2023 ambulatory Siva Ron Other Benef[employer] Other Start: 10-22-2023 Telephone encounter Siva [facility] Start: 08-13-2023 End: 08-13-2023 ambulatory Netta Montoya Other Benefitter Other Start: 08-13-2023 Office outpatient visit 15 minutes Netta Montoya [facility] Start: 08-09-2023 End: 08-09-2023 Office outpatient visit 15 minutes Sagar Krause MD Work Phone: [facility] Comment on above: Post-op pain (Primar y Dx); Pain in prosthetic joint, subsequent encounter Start: 08-09-2023 End: 08-09-2023 Subsequent hospital visit by physician Sagar Krause MD Work Phone: [facility] Start: 08-09-2023 ambulatory NETTA MONTOYA [facility] Start: 06-19-2023 End: 06-19-2023 ambulatory MD Netta Montoya Work Phone: [facility] Work Phone: Start: 06-19-2023 End: 06-19-2023 Patient encounter procedure MD Netta Montoya Work Phone: [facility] Work Phone: Start: 05-22-2023 End: 05-22-2023 ambulatory Siva Ron Other Benef[employer] Other Start: 05-22-2023 Telephone encounter Siva sheriff [employer] Start: 05-09-2023 End: 05-09-2023 ambulatory MD Netta Montoya Work Phone: [facility] Work Phone: Start: 05-09-2023 End: 05-09-2023 Patient encounter procedure MD Netta Montoya Work Phone: [facility] Work Phone: Start: 04-26-2023 End: 04-26-2023 ambulatory Netta Montoya Other Benefitter Other Start: 04-26-2023 Telephone encounter Netta Montoya [facility] Start: 04-24-2023 End: 04-24-2023 ambulatory Siva Ron Other Benef[employer] Other Start: 04-24-2023 Office outpatient visit 25 minutes Siva Ron [facility] Start: 04-23-2023 End: 04-23-2023 ambulatory Netta Montoya Other Benefitter Other Start: 04-23-2023 Telephone encounter Netta BAUMAN [facility] Start: 04-20-2023 End: 04-20-2023 ambulatory Netta Montoya Other Benefitter Other Start: 04-20-2023 Telephone encounter Netta BAUMAN [facility] Start: 03-15-2023 End: 03-15-2023 ambulatory Siva Ron Other [employer] Other Start: 03-15-2023 Telephone encounter Siva sheriff [facility] Start: 02-22-2023 End: 02-22-2023 Postop follow up visit related to original px Radha Asif DOUBLE BASS PLAYER-CLINIC MANAGER Work Phone: [facility] Comment on above: Hx of total knee art hroplasty, left (Primary Dx) Start: 02-19-2023 End: 02-19-2023 ambulatory Netta Montoya Other Benefitter Other Start: 02-19-2023 Telephone encounter Netta Montoya [facility] Start: 01-18-2023 End: 01-19-[address] Erin RON Facility:[facility] Start: 01-17-2023 End: 01-17-2023 ambulatory Siva Ron Other [employer] Other Start: 01-17-2023 Telephone encounter Siva sheriff [facility] Start: 01-16-2023 End: 01-16-2023 ambulatory Siva Ron Other [employer] Other Start: 01-16-2023 Telephone encounter Siva sheriff [facility] Start: 01-09-2023 Encounter for other preprocedural examination Netta Montoya [facility] Start: 01-09-2023 Office outpatient visit 15 minutes Netta Montoya [facility] Start: 01-09-2023 Telephone encounter Netta Montoya [facility] Start: 01-09-2023 End: 01-10-[address] Erin RON [employer] Other Start: 01-08-2023 End: 01-08-[address] Erin RON Facility:[facility] Start: 01-02-2023 End: 01-02-2023 ambulatory Siva Ron Other [employer] Other Start: 01-02-2023 Telephone encounter Siva sheriff [employer] Start: 01-01-2023 End: 01-01-2023 ambulatory Siva Ron Other [employer] Other Start: 01-01-2023 Office outpatient ne w 45 minutes Siav Ron [facility] Start: 11-30-2022 End: 11-30-2022 Office outpatient new 60 minutes Sagar Krause MD Work Phone: [facility] Comment on above: Pain in prosthetic j oint, sequela (Primary Dx) Start: 11-30-2022 End: 11-30-2022 Subsequent hospital visit by physician Sagar Krause MD Work Phone: [facility] Start: 11-28-2022 End: 11-29-[address] CARA LEO Facility:[facility] Start: 11-09-2022 End: 11-10-2022 ambulatory BRI BERGRE Facility:[facility] Start: 10-18-2022 End: 10-19-[address] CARA LEO Facility:[facility] Start: 10-10-2022 End: 10-10-2022 ambulatory Netta Montoya Other Benef[employer] Other Start: 10-10-2022 Office outpatient visit 15 minutes Netta Montoya [facility] Start: 09-22-2022 End: 09-22-2022 ambulatory Netta Montoya Other Benefitter Other Start: 09-22-2022 Telephone encounter Netta Montoya [facility] Start: 09-13-2022 End: 09-14-2022 ambulatory JANETT BALBUENA [facility] [employer] Other Start: 09-13-2022 Office outpatient visit 15 minutes Netta Montoya [facility] Start: 08-23-2022 End: 08-24-2022 ambulatory TONY DICKINSON Facility:[facility] Start: 08-22-2022 End: 08-23-2022 ambulatory JANETT BALBUENA Facility:[facility] Start: 08-08-2022 End: 08-09-[address] PELON ALEXANDRE Facility:[facility] Start: 08-01-2022 Adult health examination Netta Montoya Other [employer] Other Start: 08-01-2022 Gynecological examination normal Netta Montoya Other [employer] Other Start: 08-01-2022 Pre-procedure evaluation check Netta Montoya Other Benefitter Other Start: 07-11-2022 End: 07-12-[address] NETTA MONTOYA Facility:[facility] Start: 07-05-2022 End: 07-06-2022 ambulatory BASILIO Goodrich [facility] Facility:[facility] Start: 04-08-2022 End: 04-09-[address] DOCTOR DESHPANDE Facility:[facility] Start: 04-05-2022 ambulatory SABINA DELGADILLO . Facility:[facility] Start: 03-28-2022 Encounter for other preprocedural examination DR DOCTOR DESHPANDE [facility] Start: 03-27-2022 End: 03-28-[address] DOCTOR [...] A g [Presence] in Stool by Immunoassay [facility] Start: 09-30-2024 Giardia lamblia Ag [Presence] in Stool by Immunoassay [facility] Start: 05-11-2024 Influenza vaccination INFLUENZ A VACCINE (Season Ended) [facility] Start: 02-21-2024 End: 02-20-2025 REQUEST FOR MISC LAB SENDOUT REQUEST FOR MISC LAB SENDOUT Lab Routine Pain in prosthetic joint, subsequent encounter Expected: 02/21/2024, Expires: 02/20/2025 [facility] Comment on above: Expected: 02/21/2024 , Expires: 02/20/2025 Start: 01-30-2024 End: 01-30-2024 Patient encounter procedure 01/30/2024 1:00 PM EDT Office Visit [facility] [address] [place] [address] Radha Asif, DOUBLE BASS PLAYER-CLINIC MANAGER [address] [place] [address] [facility] Start: 08-09-2023 End: 09-06-2023 C-reactive protein C REACTIVE PROTEIN Lab Routine Pain in prosthetic joint, subsequent encounter Expected: 08/09/2023, Expires: 09/06/2023 [facility] Comment on above: Expected: 08/09/2023 , Expires: 09/06/2023 Start: 08-09-2023 End: 09-06-2023 SEDIMENTATION RATE, AUTOMATED SEDIMENTATION RATE, AUTOMATED Lab Routine Pain in prosthetic joint, subsequent encounter Expected: 08/09/2023 (Approximate), Expires: 09/06/2023 [facility] Comment on above: Expected: 08/09/2023 (Approximate), Expires: 09/06/2023 Start: 07-06-2023 Hemoglobin A1c measurement HBA1C TEST [facility] Start: 06-06-2023 End: 06-06-2023 Patient encounter procedure 06/06/2023 1:10 PM EDT Office Visit [facility] [address] [place] [address] Sagar Krause MD [address] [place] [address] [facility] Start: 05-11-2023 COVID-19 VACCINE ( season) COVID-19 VACCINE ( season) [facility] Start: 05-11-2023 Influenza vaccination [facility] Start: 05-09-2023 [facility] Start: 01-04-2023 End: 01-04-2023 ambulatory 01/04/2023 Pre-Operative Nurse Assessment Internal Medicine [facility] Pre Admission Start: 05-11-2022 Influenza vaccination INFLUENZA VACC INE (#1) [facility] Start: 12-15-2009 Zoster vaccine hzv l ag for subcutaneous use ZOSTER (SHINGLES) VACCINE (1 of 2) [facility] Start: 12-15-2004 Screening for malign ant neoplasm of colon COLORECTAL CANCER SCREENING DISCUSSION [facility] Start: 1999 Lipid panel LIPID SCREENING [facility] Start: 1999 Screening for malign ant neoplasm of breast MAMMOGRAM SCREENING DISCUSSION [facility] Start: 12-15-1980 Screening for malign ant neoplasm of cervix CERVICAL CANCER SCREENING DISCUSSION [facility] Start: 12-15-1978 Third diphtheria, te tanus and acellular pertussis (DTaP) vaccination TDAP (ADULT) [facility] Start: 12-15-1974 HIV screening HIV SCREENING DISCUSSION [facility] Start: 06-16-1960 COVID-19 VACCINE (#1) COVID-19 VACCI NE (#1) [facility] Start: 1959 Diabetic foot examination DIABETIC F OOT EXAM [facility] Start: 1959 Glaucoma screening EYE EXAM [facility] Start: 1959 Hepatitis C screening HEPATITI S C VIRUS SCREENING [facility] Start: 1959 Lipid panel LIPIDS [facility] Start: 1959 Tetanus vaccination TETANUS [facility] Start: 1959 Thyroid stimulating hormone measurement TSH [facility] Start: 1959 Urine screening for protein URINE MICROALBUMIN TEST [facility] Comprehensive metabo lic 2000 panel - Serum or Plasma [facility] Radiography for bone length studies XR BONE LENGTH STUDY Imaging Routine Pain in prosthetic joint, sequela 11/30/2022 1:41 PM EDT [facility] XR Knee - left 3 Views XR KNEE L EFT 3 VIEWS Imaging Routine Pain in prosthetic joint, sequela 11/30/2022 1:41 PM EDT [facility] Work Phone: XR Knee - left 3 Views XR KNEE L EFT 3 VIEWS Imaging Routine Hx of total knee arthroplasty, left 02/22/2023 2:50 PM EDT [facility] XR Knee - left 3 Views XR KNEE L EFT 3 VIEWS Imaging Routine Post-op pain 08/09/2023 2:03 PM EST [facility] XR Knee - left 3 Views XR KNEE L EFT 3 VIEWS Imaging Routine Hx of total knee arthroplasty, left 12/26/2023 1:43 PM EDT [facility] XR Knee - left 3 Views XR KNEE L EFT 3 VIEWS Imaging Routine Hx of total knee arthroplasty, left 02/21/2024 1:11 PM EDT [facility] Payers Date Payer Category Payer Private Health Insurance 2021 Medicare MEDICARE AETNA [place] MEDICARE AETNA HMO [id number] 2021-Present [address] [place] [address] [id number] 1959 Unknown [id number] 2.840.1.115361.3.579.2.5 93 1959 Unknown [id number] 2.840.1.050945.3.579.2.5 93 1959 Unknown [id number] 2.16.840.1.273278.3.579.2.5 93 1959 Unknown [id number] 2.16.840.1.463543.3.579.2.5 93 1959 Unknown [id number] 2.16.840.1.044811.3.579.2.5 93 1959 Unknown [id number] 2.16.840.1.466836.3.579.2.5 93 1959 Unknown [id number] 2.16.840.1.839135.3.579.2.5 93 1959 Unknown [id number] 2.16.840.1.137285.3.579.2.5 1959 Unknown [id number] 2.16.840.1.334003.3.579.2.5 1959 Unknown [id number] 2.16.840.1.586782.3.579.2.5 1959 Unknown [id number] 2.16.840.1.120561.3.579.2.5 93 1959 Unknown [id number] 2.16.840.1.519207.3.579.2.5 1959 Unknown [id number] 2.16.840.1.294488.3.579.2.5 1959 Unknown [id number] 2.16.840.1.400112.3.579.2.5 1959 Unknown [id number] 2.16.840.1.524330.3.579.2.5 93 1959 Unknown [id number] 2.16.840.1.515268.3.579.2.5 1959 Unknown [id number] 2.16.840.1.750689.3.579.2.5 1959 Unknown [id number] 2.16.840.1.437249.3.579.2.5 93 1959 Unknown [id number] 2.16.840.1.414996.3.579.2.5 93 1959 Unknown [id number] 2.16.840.1.708813.3.579.2.9 83 1959 Unknown [id number] 2.16.840.1.653039.3.579.2.9 83 1959 Unknown [id number] 2.16.840.1.068444.3.579.2.9 83 1959 Unknown [id number] 2.16.840.1.796014.3.579.2.9 83 1959 Unknown [id number] 2.16.840.1.607760.3.579.2.9 83 1959 Unknown [id number] 2.16.840.1.639679.3.579.2.9 83 1959 Unknown [id number] 2.16.840.1.143958.3.579.2.1 286 1959 Unknown [id number] 2.16.840.1.327804.3.579.2.1 286 1959 Unknown [id number] 2.16.840.1.420253.3.579.2.1 286 1959 Unknown [id number] 2.16.840.1.550242.3.579.2.1 286 1959 Unknown [id number] 2.16.840.1.368013.3.579.2.1 286 1959 Unknown [id number] 2.16.840.1.484894.3.579.2.1 286 1959 Unknown [id number] 2.16.840.1.400493.3.579.2.1 96 1959 Unknown [id number] 2.16.840.1.050770.3.579.2.1 96 1959 Unknown [id number] 2.16.840.1.297598.3.579.2.1 96 1959 Unknown [id number] 2.16.840.1.016468.3.579.2.1 96 1959 Unknown [id number] 2.16.840.1.066408.3.579.2.1 96 1959 Unknown [id number] 2.16.840.1.664420.3.579.2.1 96 1959 Unknown [id number] 2.16.840.1.958189.3.579.2.1 96 1960 Medicare [id number] 2.16.840.1.919097.19 Unknown O [id number] Social History Date Type Detail Facility Unknown if ever smoked [facility] Other Start: 02-22-2023 End: 12-26-2023 Sex Assigned At [employer] Other Start: 11-30-2022 End: 07-25-2024 Tobacco smoking status NHIS Never smoked tobacco [facility] Start: 11-30-2022 Tobacco use and exposure Smokeless tobacco non-user [facility] Start: 11-30-2022 End: 02-21-2024 Alcohol intake Ex-drinker (finding) [facility] Start: 1960 Sex Assigned At Not on file [facility] Start: 02-22-2023 End: 12-26-2023 History of Social function [facility] Start: 01-19-2023 End: 01-29-2023 Exposure to SARS-CoV-2 (event) Not sure [facility] Start: 1960 Sex Assigned At Female F [facility] Start: 10-01-2024 Sex Patient sex un known (finding) [facility] Start: 10-21-2024 Sex Female (finding) [facility] Medical Equipment Procedure Code Equipment Code Equipment Origin al Text Equipment Identifier Dates One Touch Ultra Test Strips Insert - Knee - [id number] Start: 01-29-2023 Patella - Knee - [id number] Start: 01-29-2023 Revision Pressfi t Stem 12mmx 60 [id number] Start: 01-29-2023 Revision Tibial Base Sz 2 [id number] Start: 01-29-2023 Rev Offset Stem 2mm [id number] Star t: 01-29-2023 Rev Distal Femor al Augment Sz 5 4mm [id number] Start: 01-29-2023 Rev Crs Femoral Sz 5 Left [id number] Start: 01-29-2023 Palacos R 1 X 40 Us - [id number] Start: 01-29-2023 Palacos R & G Smooth ne Cement High-Viscosity With Gentamicin - [id number] Start: 01-29-2023 Blood Sugar Diagnostic (Onetouch [...] B12 deficiency acute Fe bruary 2024 8:57am [facility] Work Phone: 1(461) 426-586111-07-2024 Evaluation note* Diagnosis Onset Date Resolution Status [...] 1:49pm Nausea acute September 30, 2024 1:49pm [facility] Work Phone: 1(345) 995-844506-13-2024 History of Present illness Narrative* Sandra Ally [...] 02/21/2024 1:17 PM Patient: Emily Macias MR#: [id number] : 1960 Age: 63 y.o. Referring Physician: Self, Self Insurance: Payor: MEDICARE [employer] HMO [place] PPO / Plan: MEDICARE AETNA [...] daily. 60 capsule 0 Cholecalciferol 250 MCG (52785 UT) capsule capsule Take by mouth daily. [...] DR tablet Take by mouth daily. Pancrelipase, Pjx-Dxek-Buhb, (CREON PO) Take 36,000 Units by mouth. [...] by Nasal route once for 1 dose. Jesse into the nose as directed. Call 911. [...] 60 capsule, Rfl: 0 Cholecalciferol 250 MCG (72014 UT) capsule capsule, Take by mouth daily., [...] by mouth daily., Disp: , Rfl: Pancrelipase, Mum-Hisk-Ogun, (CREON PO), Take 36,000 Units by mouth. [...] by Nasal route once for 1 dose. Jesse into the nose as directed. Call 911. [...] and also reported she applied for financial reporting advisor for additional PT. Should she need additional [...] have reviewed the findings of the clinical cryptologic support specialist and agree with their assessment. [...] 02/21/2024 1:17 PM Patient: Emily Macias MR#: [id number] : 1960 Age: 63 y.o. Referring Physician: Self, Self Insurance: Payor: MEDICARE [employer] HMO OR PPO / Plan: MEDICARE [employer] HMO / Product Type: *No Product type* [...] daily. 60 capsule 0 Cholecalciferol 250 MCG (59331 UT) capsule capsule Take by mouth daily. [...] DR tablet Take by mouth daily. Pancrelipase, Cxi-Hoak-Prwd, (CREON PO) Take 36,000 Units by mouth. [...] by Nasal route once for 1 dose. Jesse into the nose as directed. Call 911. [...] 60 capsule, Rfl: 0 Cholecalciferol 250 MCG (07306 UT) capsule capsule, Take by mouth daily., [...] by mouth daily., Disp: , Rfl: Pancrelipase, Unu-Oapb-Frep, (CREON PO), Take 36,000 Units by mouth. [...] by Nasal route once for 1 dose. Jesse into the nose as directed. Call 911. [...] zanaflex [tizanidine], and vancomycin. [facility] History of Present illness Narrative* Raven Ede - 12/26/2023 2:00 PM EDT Ortho Nurse - Established Patient Intake Room#: 5 Date: 12/26/2023 1:55 PM Patient: Emily Macias MR#: [id number] : 1960 Age: 63 y.o. 1yr L [...] daily. 60 capsule 0 Cholecalciferol 250 MCG (05587 UT) capsule capsule Take by mouth daily. [...] DR tablet Take by mouth daily. Pancrelipase, Ero-Ozzm-Kisq, (CREON PO) Take 36,000 Units by mouth. [...] by Nasal route once for 1 dose. Jesse into the nose as directed. Call 911. [...] 60 capsule, Rfl: 0 Cholecalciferol 250 MCG (48520 UT) capsule capsule, Take by mouth daily., [...] by mouth daily., Disp: , Rfl: Pancrelipase, Ggy-Vzmq-Swet, (CREON PO), Take 36,000 Units by mouth. [...] by Nasal route once for 1 dose. Jesse into the nose as directed. Call 911. [...] zanaflex [tizanidine], and vancomycin. * Radha Asif, DOUBLE BASS PLAYER-CLINIC MANAGER - 12/26/2023 2:00 PM EDT SUBJECTIVE: Emily [...] She thinks she had that done at [facility]. We will try and obtain those results. [...] up with Dr. Krause for clinical examination. (DOC:[id number]) I have reviewed the findings of the clinical cryptologic support specialist and agree with their assessment. Radha Asif APRN-CLINIC MANAGER Ortho Nurse - Established Patient Intake Room#: 5 Date: 12/26/2023 1:55 PM Patient: Emily Macias MR#: [id number] : 1960 Age: 63 y.o. 1yr L TKA Pt stated her knee has been locking on her and has pain 5/10. Pt stated she is almost always a 4-5/10 on the pain scale. Referring Physician: Self, Self Insurance: Payor: MEDICARE [employer] HMO OR PPO / Plan: MEDICARE [employer] HMO / Product Type: *No Product type* [...] daily. 60 capsule 0 Cholecalciferol 250 MCG (01284 UT) capsule capsule Take by mouth daily. [...] DR tablet Take by mouth daily. Pancrelipase, Ivo-Zkzz-Ciny, (CREON PO) Take 36,000 Units by mouth. [...] by Nasal route once for 1 dose. Jesse into the nose as directed. Call 911. [...] 60 capsule, Rfl: 0 Cholecalciferol 250 MCG (07274 UT) capsule capsule, Take by mouth daily., [...] by mouth daily., Disp: , Rfl: Pancrelipase, Axa-Ecmf-Fibn, (CREON PO), Take 36,000 Units by mouth. [...] by Nasal route once for 1 dose. Jesse into the nose as directed. Call 911. [...] zanaflex [tizanidine], and vancomycin. [facility] Evaluation [facility]* Encounter Date Diagnosis Assessment Notes Treatment Notes Treatment Clinical Notes Aug, Piriformis syndrome, right (ICD-10 - G57.01) Pt declines PT at this time. Gave handouts for exercises and use flexeril qhs. Aug, Trochanteric bursitis, right hip (ICD-10 - M70.61) Pt declines PT. Muscle relaxer and handouts given. [facility] 11-30-2023 History of Present illness Narrative* [...] 08/09/2023 2:58 PM Patient: Emily Macias MR#: [id number] : 1960 Age: 62 y.o. Referring Physician: [...] DR tablet Take by mouth daily. Pancrelipase, Xws-Geuq-Sfxq, (CREON PO) Take 36,000 Units by mouth. [...] taking: Reported on 08/09/2023) Cholecalciferol 250 MCG (55873 UT) capsule capsule Take by mouth daily. [...] by Nasal route once for 1 dose. Jesse into the nose as directed. Call 911. [...] have reviewed the findings of the clinical cryptologic support specialist and agree with their assessment. [...] 08/09/2023 2:58 PM Patient: Emily Macias MR#: [id number] : 1960 Age: 62 y.o. Referring Physician: Sagar Krause MD Insurance: Payor: MEDICARE [employer] HMO [place] PPO / Plan: MEDICARE [employer] HMO / Product Type: *No Product type* [...] Krause MD; Location: [facility] ARTHROPLASTY KNEE TOTAL Left 08/13/2017 Partial [...] DR tablet Take by mouth daily. Pancrelipase, Aah-Over-Tzwb, (CREON PO) Take 36,000 Units by mouth. [...] taking: Reported on 08/09/2023) Cholecalciferol 250 MCG (48813 UT) capsule capsule Take by mouth daily. [...] by Nasal route once for 1 dose. Jesse into the nose as directed. Call 911. [...] zanaflex [tizanidine], and vancomycin. documented in this [facility]08-15-2023 Evaluation note* Encounter Date Diagnosis Assessment Notes Treatment Notes Treatment Clinical Notes Apr, Abdominal cramping (ICD-10 - R10.9) Patient reports doing well Apr, Diverticulosis (ICD-10 - K57.90) Apr, Alternating constipation and diarrhea (ICD-10 - R19.8) Apr, Pancreatic atrophy (ICD-10 - K86.89) Apr, Fatty liver (ICD-10 - K76.0) [facility] 08-11-2023 Evaluation note* Encounter Date Diagnosis Assessment Notes Treatment Notes Treatment Clinical Notes Apr, Type 2 diabetes mellitus with hyperglycemia, without long-term current use of insulin (ICD-10 - E11.65) [facility] 06-15-2023 History of Present illness Narrative* [...] 02/22/2023 3:16 PM Patient: Emily Milligans MR#: [id number] : 1960 Age: 62 y.o. Referring Physician: [...] daily. 84 capsule 0 Cholecalciferol 250 MCG (63521 UT) capsule capsule Take by mouth daily. [...] by Nasal route once for 1 dose. Jesse into the nose as directed. Call 911. If no response in 2 minutes use a new nasal spray in other nostril. Repeat until help arrives. 1Each [address] Omep[address] tablet Take by mouth daily. oxyCODONE 5 MG tablet Take 1-2 tabs po q 4-6 hours prn pain. Wean as tolerated. 20 tablet 0 Pancrelipase, Yak-Wevi-Dyzn, (CREON PO) Take 36,000 Units by mouth. [...] 84 capsule, Rfl: 0 Cholecalciferol 250 MCG (98694 UT) capsule capsule, Take by mouth daily., [...] by Nasal route once for 1 dose. Jesse into the nose as directed. Call 911. [...] tolerated., Disp: 20 tablet, Rfl: 0 Pancrelipase, Eji-Glaf-Mray, (CREON PO), Take 36,000 Units by mouth. [...] zanaflex [tizanidine], and vancomycin. * Radha Asif APRN-CLINIC MANAGER - 02/22/2023 3:00 PM EDT HPI: Emily [...] understanding. All pertinent portions of the clinical cryptologic support specialist documentation was reviewed and agree. DANIELLE Gimenez I have reviewed the findings of the clinical cryptologic support specialist and agree with their assessment. DANIELLE Gimenez Ortho Nurse - Established Patient Intake Room#: 5 Patient is S/P L knee medial/partial revision to TKA. Patient using walker today and penelope hose are in place. She states the worse pain is at HS while trying to sleep. Sitting pain 4/10 Walking pain is 5/10 Date: 02/22/2023 3:16 PM Patient: Emily Macias MR#: [id number] : 1960 Age: 62 y.o. Referring Physician: [...] daily. 84 capsule 0 Cholecalciferol 250 MCG (67675 UT) capsule capsule Take by mouth daily. [...] by Nasal route once for 1 dose. Jesse into the nose as directed. Call 911. If no response in 2 minutes use a new nasal spray in other nostril. Repeat until help arrives. 1Each 0 Omeprazole [address] tablet Take by mouth daily. oxyCODONE 5 MG tablet Take 1-2 tabs po q 4-6 hours prn pain. Wean as tolerated. 20 tablet 0 Pancrelipase, Api-Qrxb-Sftj, (CREON PO) Take 36,000 Units by mouth. [...] 84 capsule, Rfl: 0 Cholecalciferol 250 MCG (76842 UT) capsule capsule, Take by mouth daily., [...] by Nasal route once for 1 dose. Jesse into the nose as directed. Call 911. [...] tolerated., Disp: 20 tablet, Rfl: 0 Pancrelipase, Ojx-Bttu-Lypy, (CREON PO), Take 36,000 Units by mouth. [...] zanaflex [tizanidine], and vancomycin. [facility]* Encounter Date Diagnosis Assessment Notes Treatment Notes Treatment Clinical Notes January, Alternating constipation and diarrhea (ICD-10 - R19.8) [facility] Other 05-02-2023 Evaluation note* Encounter Date Diagnosis [...] of Farxiga and pt will trial those. [facility] 04-24-2023 Evaluation note* Encounter Date Diagnosis [...] scan in October of last year in [place], following a colonoscopy that was done in September Start Mesalamine Dec, Alternating constipation and diarrhea (ICD-10 - R19.8) Start low fod map diet Start probiotics [facility] Other 03-23-2023 History of Present illness Narrative* [...] 11/30/2022 2:13 PM Patient: Emily Macias MR#: [id number] : 1960 Age: 61 y.o. Referring Physician: Self, Self Insurance: Payor: MEDICARE [employer] HMO [place] PPO / Plan: MEDICARE [employer] HMO / Product Type: *No Product type* [...] [x]cane, []bracing Are you followed by a wet roller? [] [x] Name: Are you followed by pain management? [] [x] Name: Are you followed by any other specialists? [x] [] Name: RA Dr Felipa Santana Outpatient Medications Prior to Visit Medication Sig Dispense Refill Ascorbic Acid 1000 MG tablet Take 1 tablet by mouth daily. B Complex Vitamins (B COMPLEX 1 PO) Take by mouth. Biotin 13046 MCG tablet Take by mouth. Cholecalciferol 250 MCG (36882 UT) capsule capsule Take by mouth. Cobalamin [...] Take by mouth., Disp: , Rfl: Biotin 77285 MCG tablet, Take by mouth., Disp: , Rfl: Cholecalciferol 250 MCG (77796 UT) capsule capsule, Take by mouth., Disp: [...] symptoms. She has history of partial medial Jackson uni knee on 08/13/[address] Lazar. [...] left knee. She has a medial partial Jackson uni-arthroplasty in place with severe adjacent patellofemoral arthritis. IMPRESSION: 1.) History of left partial medial Jackson uni knee on 08/13/[address] Lazar. [...] conversion from uni to total for optimal prison management. We have discussed in great detail [...] of limb, and ultimately loss of life. 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 Despite these risks, the patient would liketo proceed with surgical planning. Today, we will initiate the pre-surgical process including nasalMRSA screening, scheduling an appointment [facility] [place] and the potential surgical date, andreviewing and [...] Take by mouth., Disp: , Rfl: Biotin 18002 MCG tablet, Take by mouth., Disp: , Rfl: Cholecalciferol 250 MCG (57026 UT) capsule capsule, Take by mouth., Disp: [...] migraines Zanaflex [Tizanidine] Hallucination documented in this [facility]-31-20[facility] Evaluation note* Encounter Date Diagnosis Assessment Notes Treatment Notes Treatment Clinical Notes Sep, Fibromyalgia (ICD-10 - M79.7) handicap placard rx handwritten Sep, Type 2 diabetes mellitus with hyperglycemia, without long-term current use of insulin (ICD-10 - E11.65) good readings on home meter with present meds. Sep, Positive ADRI (antinuclear antibody) (ICD-10 - R76.8) Suggested getting on cancellation list at Rheumatology [facility] Other 01-13-2023 Evaluation note* Encounter Date Diagnosis Assessment Notes Treatment Notes Treatment Clinical Notes Sep, Positive ADRI (antinuclear antibody) (ICD-10 - R76.8) Sep, Fibromyalgia (ICD-10 - M79.7) [facility] Other 01-04-2023 Evaluation note* Encounter Date Diagnosis Assessment Notes Treatment Notes Treatment Clinical Notes Sep, Abdominal cramping (ICD-10 - R10.9) Sep, Type 2 diabetes mellitus with hyperglycemia, without long-term current use of insulin (ICD-10 - E11.65) advised holding or decreasing dose of ozempic to 0.25/week as this could relate to GI side effects [facility] Other 10-31-2022 NotePROCEDURE: XR TIB_FIB RT 2V COMPARISON: 08/24/2021 HISTORY: Pain in lower limb FINDINGS: BONES:No acute fracture or dislocation. Degenerative changes of the knee and ankle. Enthesopathic spurring of the calcaneus SOFT TISSUES:Negative. No visible soft tissue swelling. EFFUSION:None visible. OTHER: Negative. IMPRESSION: Osteoarthritis Electronically authenticated by: WANDA DIANE Date: 2022-07-10 13:36[facility]06-29-2022 NoteCONSULTATION CONSULTATION DATE: 03/08/2022 HISTORY OF PRESENT [...] of pain. 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 [...] care and would like to move forward. [facility] Signed and Approved by: SABINA DELGADILLO . 03/09/2022 13:38:00[facility] note* Diagnosis Pain in prosthetic joint, sequela- Primary [facility] in this encounter [facility] noteNo InformationNort Falcon Social Other Evaluation note* Diagnosis Hx of total knee arthroplasty, left- Primary [facility] assessment information [facility] Work Phone: Evaluation note* Diagnosis Post-op pain- Primary Other acute postoperative pain Pain in prosthetic joint, subsequent encounter [facility] encounter [facility]* Diagnosis Hx of total knee arthroplasty, left- Primary documented in this encounter [facility]* Diagnosis Hx of total knee arthroplasty, left- Primary Pain in prosthetic joint, subsequent encounter [facility] N[facility] - Reported* Type [...] diabetes divya itus with hyperglycemia, unspecified whether prison insulin use Medical History Fitzpatrick splints, right, [...] AND ADENOIDECTOMY Hospitalization History mono Hospitalization History [employer] Other History general Narrative - Reported* Type [...] diabetes divya itus with hyperglycemia, 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 * Diagnostic X-Ray (Routine) - New Request Specialty Diagnoses / Procedures Referred By Westley finnegan Referred To Contact Diagnoses Hx of total knee arthroplasty, left Procedures XR KNEE LEFT 3 VIEWS Radha Asif APRN-CNP [address] [place] [address] Referral ID Status Reason Start Date Expiration Date V isits Requested Visits Authorized [id number] New Request 02/20/2023 03/16/2024 1 [facility] Family History Relationship Condition Age [...] 1 Abdominal cramping ( R10.9) Referral Organization [facility] Dunwello reginaldo Referring Provider First Name Netta Referring Provider Last Name Lindsay Referring Provider Specialty [facility] [employer] Referred Organization [facility] Referred Provider Ismael Early Referred Address [address] [place] [id number] Referred Provider Specialty Gastroentero logy Referral Priority Routine Referral Appointment Date 2022-12-28 General Notes Sonali Cortez 10:30:02 AM >received today, notes locked and referral faxed Sonali Cortez 09/25/2022 10:48:23 AM >pt scheduled Reason 11/21/22 See phone note - this is 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 I do not have a copy of his labs. Diagnosis 1 Positive ADRI (antinu clear antibody) (R76.8) Referral Organization [facility] Dunwello reginaldo Referring Provider First Name Netta Referring Provider Last Name Montoya Referring Provider Specialty Family [facility] Referred Organization [place] [facility] Referred Provider Cara Leo Referred Address [address] [place]ny [place],[address] Referred Provider Specialty Rheumatology Referral Priority Routine Referral Appointment Date 2022-11-21 General Notes JatinkaleeSonali 09:22:28 AM >received today, notes attached and ins card attached. will call pt to see who she saw in [place] to get labs. Sonali Cortez 09/25/2022 10:37:57 AM >spoke with patient and was provided Dr. Balbuena phone number [phone] to request labs. told patient I would [...] XR BONE LENGTH STUDY Sagar Krause MD [address] [place] [address] Referral ID Status Reason Start Date Expiration Date V isits Requested Visits Authorized [id number] New Request 11/24/2022 12/19/2023 1 1 Specialty Diagnoses / Procedures Referred By Contac t Referred To Contact Diagnoses Pain in prosthetic joint, sequela Procedures XR KNEE LEFT 3 VIEWS Sagar Krause MD [address] [place] [address] Referral ID Status Reason Start Date Expiration Date V isits Requested Visits Authorized [id number] New Request 11/24/2022 12/19/2023 1 1 Specialty Diagnoses / Procedures Referred By Contac t Referred To Contact Diagnoses Post-op pain Procedures XR KNEE LEFT 3 VIEWS Sagar Krause MD [address] [place] [id number] Referral ID Status Reason Start Date Expiration Date V isits Requested Visits Authorized [id number] New Request 08/06/2023 08/30/2024 1 1 Specialty Diagnoses / Procedures Referred By Contac t Referred To Contact Diagnoses Hx of total knee arthroplasty, left Procedures XR KNEE LEFT 3 VIEWS Radha Asif, [employer] [address] [place] [address] Referral ID Status Reason Start Date Expiration Date V isits Requested Visits Authorized [id number] New Request 12/25/2023 01/18/2025 1 1 Specialty Diagnoses / Procedures Referred By Contac t Referred To Contact Diagnoses Hx of total knee arthroplasty, left Procedures XR KNEE LEFT 3 VIEWS Sagar Krause MD [address] [place] [address] Referral ID Status Reason Start Date Expiration Date V isits Requested Visits Authorized [id number] New Request 02/14/2024 03/10/2025 1 1 Chief [...] and content) DATE CREATED AUTHOR 09/08/2021 [facility] DATE CREATED AUTHOR AUTHOR'S ORGANIZ ATION 01/23/2023 [facility] DATE CREATED AUTHOR AUTHOR'S ORGANIZ ATION [facility] DATE CREATED AUTHOR AUTHOR'S ORGANIZ ATION 09/22/2024 [facility] DATE CREATED AUTHOR AUTHOR'S ORGANIZ ATION 09/23/2024 [facility] DATE CREATED AUTHOR AUTHOR'S ORGANIZ ATION 09/23/2024 [facility] DATE CREATED AUTHOR AUTHOR'S ORGANIZ ATION 10/02/2024 [facility] REASON FOR VISIT (unrecogniz ed section and content) Specialty Diagnoses / Procedures Referred By Contac t Referred To Contact Diagnoses Pain in prosthetic joint, sequela Procedures XR BONE LENGTH STUDY Sagar Krause MD [address] [place] [address] Referral ID Status Reason Start Date Expiration Date V isits Requested Visits Authorized [id number] New Request 11/24/2022 12/19/2023 1 1 Reason Comments Pain Reason Comments Surgical Follow-up Specialty Diagnoses / Procedures Referred By Contac t Referred To Contact Diagnoses Post-op pain Procedures XR KNEE LEFT 3 VIEWS Sagar Krause MD [address] [place] [phone] Referral ID Status Reason Start Date Expiration Date V isits Requested Visits Authorized [id number] New Request 08/06/2023 08/30/2024 1 1 Reason Comments Pain Specialty Diagnoses / Procedures Referred By Contac t Referred To Contact Diagnoses Hx of total knee arthroplasty, left Procedures XR KNEE LEFT 3 VIEWS Brandee Radha, [employer]GER [address] [place] [address] Referral ID Status Reason Start Date Expiration Date V isits Requested Visits Authorized [id number] New Request 12/25/2023 01/18/2025 1 1 Reason Comments Follow-up Specialty Diagnoses / Procedures Referred By Contac t Referred To Contact Diagnoses Hx of total knee arthroplasty, left Procedures XR KNEE LEFT 3 VIEWS Sagar Krause MD [address] [place] [address] Referral ID Status Reason Start Date Expiration Date V isits Requested Visits Authorized [id number] New Request 02/14/2024 03/10/2025 1 1 Care Teams (unrecognized sec tion and content) Keg Filler Relationship Specialty Start Date End Date Netta Montoya MD [address] [place] [phone] PCP - General Family Medicine 10/20/22 Keg Filler Relationship Specialty Start Date End Date Netta Montoya MD [address] [place] [phone] PCP - General Family Medicine 10/20/22 Keg Filler Relationship Specialty Start Date End Date Netta Montoya MD [address] [place] [phone] PCP - General Family Medicine 10/20/22 Team Status: Active Member Role Status Dates Netta Montoya MD Primary Care Provider Active Team Status: Inactive Member Role Status Dates Siva Ron MD Attending Provider Active Netta Montoya MD Primary Care Provider Active Team Status: Inactive Member Role Status Dates Netta Montoya MD Primary Care Provider Active Cara Leo MD Attending Provider Active Keg Filler Relationship Specialty Start Date End Date Netta Montoya MD [address] [place] [phone] PCP - General Family Medicine 10/20/22 Keg Filler Relationship Specialty Start Date End Date Netta Montoya MD [address] [place] [address] PCP - General Family Medicine 10/20/22 Keg Filler Relationship Specialty Start Date End Date Netta Montoya MD [address] [place] [address] PCP - General Family Medicine 10/20/22 Keg Filler Relationship Specialty Start Date End Date Netta Montoya MD [address] [place] [address] PCP - General Family Medicine 10/20/22 Team [...] BE BASED ON THE PRIMARY CLINICAL RECORDS. [facility] [employer] [facility]. provides no warranty or guarantee of the accuracy or completeness of information in this document.
--- NOTE | 2024-12-10 10:26 | P.CN_ITS ---
Consult Note: HPI Data of Consult Patient: known to practice within the last 3 years Requesting Physician: Tayler Augustin NP Primary Care Provider: Soila Joseph MD Consult Narrative Reason for consult: bilateral low back pain and left knee pain Narrative: 63yof who presents for assessment. worsening pain through low back into bilateral hips. imaging reviewed, which shows disc bulge and tear at l4-5 to the right. has completed >6 weeks of provider directed home exercises, without benefit. uses celebrex, robaxin, tramadol, zonegran. recently underwent right sciatic nerve block with no improvement. Pt continues to have moderate to severe daily pain severely impacting her day to day life in low back and left knee. MARITZA 44%. Pain today 6/10, increasing to 9/10. Pain stabbing, sharp, pinching, burning. Pain increased with standing, walking, pushing, pulling, sleep. Pain improved with changing positions and heat. cc:: CC: Tayler Augustin NP Review of Systems ROS Status of ROS 10 or more systems reviewed and unremark able except as noted in history and below Musculoskeletal Reports: back pain PFSH PFSH Medical History (Updated 12/10/24 @ 10:28 by Tayler Augustin NP) Rectocele ?N81.6 - Rectocele (ICD-10) Cataract, left eye ?H26.9 - Unspecified cataract (ICD-10) Cataract, right eye ?H26.9 - Unspecified cataract (ICD-10) History of revision of total replacement of left knee joint ?Z96.652 - Presence of left artificial knee joint (ICD-10) Plantar fasciitis of right foot ?M72.2 - Plantar fascial fibromatosis (ICD-10) Tear of left meniscus as current injury ?S83.207A - Unspecified tear of unspecified meniscus, current injury, left knee, initial encounter (ICD-10) Ruptured ovarian cyst ?N83.209 - Unspecified ovarian cyst, unspecified side (ICD-10) Surgical History H/O hemorrhoidectomy ?Z98.890 - Other specified postprocedural states (ICD-10) History of fundoplication ?Z98.890 - Other specified postprocedural states (ICD-10) History of hysterectomy ?Z90.710 - Acquired absence of both cervix and uterus (ICD-10) History of laparoscopic cholecystectomy ?Z90.49 - Acquired absence of other specified parts of digestive tract (ICD- 10) History of carpal tunnel surgery of right wrist ?Z98.890 - Other specified postprocedural states (ICD-10) History of tonsillectomy and adenoidectomy ?Z90.89 - Acquired absence of other organs (ICD-10) Meds Home Medications and Allergies Home Medications ?Medication ?Instructions ?Recorded ?Confirmed ?Type celecoxib 200 mg capsule (Celebrex) 200 mg PO BID 06/24/24 11/10/24 History eszopiclone 3 mg tablet (Lunesta) 3 mg DAILY 06/24/24 History levothyroxine 100 mcg tablet 100 mcg PO DAILY 06/24/24 11/10/24 History (Euthyrox) metformin 1,000 mg tablet 1,000 mg PO BID 06/24/24 11/10/24 History multivitamin 1 tab PO DAILY 06/24/24 11/10/24 History omeprazole 20 mg capsule,delayed 20 mg PO DAILY 06/24/24 11/10/24 History release oxybutynin chloride 5 mg tablet 5 mg PO DAILY 06/24/24 11/10/24 History tramadol 50 mg tablet 50 mg PO BID 06/24/24 11/10/24 History zonisamide 50 mg capsule 100 mg (2 x 50 mg) PO DAILY #60 09/18/24 11/10/24 Rx caps zonisamide 100 mg capsule 100 mg PO DAILY #30 caps 10/21/24 11/10/24 Rx (Zonegran) Allergies Allergy/AdvReac Type Severity Reaction Status Date / Time milnacipran (From Savella) Allergy Unknown Unknown Verified 09/08/24 11:28 tizanidine (From Zanaflex) Allergy Unknown Unknown Verified 09/08/24 11:28 Exam Constitutional Documenting provider has reviewed patient's vital signs: yes Common normals: no apparent distress, oriented x3, healthy appearing, alert and well nourished General appearance: cooperative [facility] Common normals: normocephalic, hearing grossly normal bilaterally and moist oral mucous membranes Head and scalp: normocephalic Eye Common normals: PERRL Pupil: PERRL Neck & C-Spine Common normals: full ROM General: normal visual inspection Chest Common normals: inspection of chest normal Respiratory Common normals: normal respiratory effort, no retractions and no use of accessory muscles Back & Pelvis Lumbar spine/lower back: ROM limited, pain with ROM and straight leg raise positive right Sacroiliac joints: SI joint(s) abnormal Other: bilateral sij positive tiffany(patricks), gaenslens, thigh thrust, compression test Extremity Right lower extremity: knee joint Other: left knee increased pain with palpation, weight bearing. no instability noted, no edema noted, warm to touch. full ROM Neuro Common normals: oriented x3, CN's II-XII intact bilaterally, moves all e xtremities, no focal motor deficits, no sensory deficits noted and deep tendon reflexes 2+ bilaterally Sensorium/orientation: alert Motor exam: strength 5/5 throughout and no movement abnormalities noted Psych Common normals: mental status grossly normal, thought process normal, cooperative, affect normal, speech normal and activity/motor behavior normal Speech: normal speech Thought process: normal thought process Assessment and Plan Assessment and Plan (1) Bilateral sacroiliitis: (2) Chronic knee pain after total replacement of left knee joint: (3) Lumbar radiculopathy: Plan left genicular nerve block under fluoroscopy x1 in consideration of RFA for chronic left knee pain post knee replacement, has failed > 6 weeks of PT and provider guided HEP, heat, ice, tylenol, NSAIDs continue HEP as tolerated continue robaxin 500-1000mg TID PRN pain/spasms continue celebrex 200mg BID PRN and zonegran 100mg HS f/u after injection
== END 2024-12-10 09:48 | disposition home or self-care (01) ==
PROVIDERS: PCP Family Medicine; Visit Provider Nurse Practitioner
DX: M46.1 Sacroiliitis, not elsewhere classified (principal); M25.562 Pain in left knee; M54.16 Radiculopathy, lumbar region
CPT/HCPCS: G0463

== ENCOUNTER 2024-12-22 07:34 | Day surgery (SDC) | payer MEDICARE, SELFPAY ==
--- OUTSIDE RECORDS SUMMARY | 2024-12-22 07:38 | XMS_ITS | CCD ---
Author Organization [facility] CliniSyin Care Team Providers Care Crimp Setter Name Role Phone Netta Montoya Unavailable Siva Ron Unavailable [phone] MISC, DR BECERRA Admitting Unavailable MISC, DR [...] Unavailable Montoya Netta LEVIN Primary Care Provider [phone] MD Siva Ron Attending Provider MD Netta Montoya Primary Care Provider [phone] MD Cara Leo Attending Provider NETTA MONTOYA [...] Care Unavailable LAKSHMIPATHY, NARENDRANATH Referring Unava ilable LINDSAY, NETTA Conti Primary Care Unavailable LAKSHMIPATHY, NARENDRANATH Referring Unava ilable NETTA MONTOYA Primary Care Unavailable Lindsay LEVIN, Netta Calzada [facility] Unava ilable Esha DPM, Janett Govea Attending Unavailab charbel Montoya MD, Netta [facility] Unava ilable Esha DPM, Janett Govea Attending Unavailab Gopal LEVIN, [facility] Unava ilable Silke LEVIN, Chandra Nova Attending Unavailable Silke LEVIN, Chandra Nova Attending Unavailable Lindsay LEVIN, [facility] Unava illaura Montoya MD, Netta [facility] Unava ilable Esha DPM, Janett Govea Attending Unavailab Gopal LEVIN, Netta Elsi [facility] Unava ilable Esha DPM, Janett Govea Attending Unavailab Gopal LEVIN, [facility] Unava ilable Esha DPM, Janett Govea Attending Unavailab HANY Louis Referring Unavailable Netta Montoya MD Primary Care Provider Jb Grady APRN Attending Provider Netta Montoya Primary Care Unavailable Jb Grady Admitting Unavailable Jb Grady Attending Unavailable Netta Montoya Primary Care Unavailable Jb Grady Admitting Unavailable Jb Grady Attending Unavailable Netta Montoya MD Primary Care Provider [phone] Jb Grady APRN Attending Provider Allergies Allergy Classification Reported Allergen(s) Allergy Type Date of Onset Reaction(s) Facility (20 sources) milnacipran; Translations: [Savella] Drug Allergy 09-02-20 13 SEVERE HEADACHES [facility] Repository (20 sources) Morphine; Translations: [MORPHINE] Drug Allergy 11-19-19 21 Unknown, Hives [facility] Repository (20 sources) tiZANidine; Translations: [Zanaflex] Drug Allergy 09-02-20 13 Hallucinations [facility] Repository (15 sources) milnacipran; Translations: [MILNACIPRAN] Drug Allergy 02-10-20 17 Headache [facility] (15 sources) tiZANidine; Translations: [TIZANIDINE] Drug Allergy 02-10-20 17 Hallucination [facility] (2 sources) Morphine Drug Allergy [facility] Repository (19 sources) Vancomycin Drug Allergy 01-30-20 23 Hives [facility] (7 sources) Allergies Reconciled Propensity to adverse reactions Unknown Aries [employer] Other (7 sources) Savella *PSYCHOTHERAPEU TIC AND NEUROLOGICAL AGENTS Propensity to adverse reactions Unknown Aries [facility] Other (1 source) ALLERGIES NOT ON FILE; Translations: [ALLERGIES NOT ON FILE] Propensity to adverse reactions (disorder) [facility] Repository (3 sources) Savella *PSYCHOTHERAPEU TIC AND Allergy to substance 10-24-19 24 [facility] Comment on above: Free Text Allergy: S [...] tablet by mouth once daily as needed hydroCODone-acetam inophen 5-325 MG tablet Indications: Acute postoperative pain [...] the day with plain water Orally Active amoxicillin 875 mg / clavulanate 125 mg oral tablet (4 sources) Penicillin-class Antibacterial Start: 12-10-2024 take 1 tablet by mouth twice daily Amoxicillin-Pot Clavulanate 875-125 mg tablet Active 1 TAB PO Twice daily December 10, 2024 12:00am Start: 01-29-2024 End: 02-11-2024 take 1 tablet by mouth twice daily Amoxicillin-Pot Clavulanate 875-125 mg tablet Discontinued 1 TAB PO Twice daily 29 06January 29, 2024 12:00am February 11, 2024 11:23am amylase [id number] unt / lipase [id number] unt / protease [id number] unt delayed release oral capsule (12 sources) Start: 01-16-2024 take 2 capsules by mouth three times daily at mealtime, then take 1 capsule by mouth four times daily Rcenbt-Tdkvckxc-Jqwaxhl (Creon) 36,000-114,000- 180,000 unit capsule,delayed release(DR/EC) Active CAP PO January 16, 2024 12:00am FreeTextSi capsules three times a day with meals and 1 capsule with a snack Orally four times a day; Note: Source Status: TakingPLEASE CHECK ALLERGIES; Refills: 5; Provider: Ariadne Briceno Start: 01-25-2023 take 2 capsules by [facility] three times daily at mealtime, then take 1 capsule by mouth four times daily Creon [id number] UNIT 2 capsules three times a day with meals and 1 capsule with a snack Orally four times a day for 30 days PLEASE CHECK ALLERGIES January, Active ascorbic acid 1000 mg oral tablet (9 sources) Vitamin C Start: 10-24-2023 take 1 tablet by mouth twice daily Ascorbic Acid (Vitamin C) 1,000 mg tablet Active 1 TAB PO Twice daily October 24, 2023 1:00am FreeTextSi tablet Orally TWICE A DAY; Note: [...] 10 mg oral tablet (2 sources) Biotin 58517 MCG tablet Take by mouth. 0 Active Calcium (15 sources) Phosphate Binder, Calcium Calciu m + D Active Calcium Carb-Cholecalciferol (CALCIUM + D3 PO) (7 sources) Calcium Carb-Cholecalciferol (CALCIUM + D3 PO) Take by mouth daily. Active Calcium Carb-Cho lecalciferol (CALCIUM + D3 PO) Take by mouth daily. 0 Active celecoxib (20 sources) Nonsteroidal Anti-inflammatory Drug Start: 11-10-2024 Celecoxib 200 mg capsule Active 0 .ROUTE .COMPLEX 180 November 10, 2024 11:54am TAKE 2 CAPSULES DAILY Start: 09-30-2024 End: 11-10-2024 take 2 capsules by mouth twice daily Celecoxib 200 mg capsule Discontinued 400 MG PO Twice daily September 30, 2024 2:54pm November 10, 2024 11:54am Start: 05-13-2024 End: 09-30-2024 take 2 capsules by mouth once daily Celecoxib 200 mg capsule Discontinued 400 MG PO Daily 180 May 13, 2024 4:29pm September 30, 2024 2:59pm Start: 10-24-2023 End: 05-13-2024 take 1 capsule by mouth once daily at mealtime Celecoxib 200 mg capsule Discontinued 200 MG PO Daily March 20, 2024 11:18am May 13, 2024 4:29pm FreeTextSi capsule with food Orally Once a day; Note: Source Status: Taking; Provider: Lindsay Cm ( ) Start: 03-23-2023 take 1 capsule by mo uth twice daily Celecoxib 200 MG capsule Take [...] day Active cholecalciferol 0.025 mg oral capsule (13 sources) Vitamin D Start: 024 Cholecalciferol (Vitamin D3) 25 mcg (1,000 unit) capsule Active PO October 24, 2023 1:00am FreeTextSi/2 DAILY IN SUMMER Orally Once a day; Note: Source Status: Taking; Provider: Lindsay Cm ( ) Cholecalciferol 250 MCG (48929 UT) capsule capsule Take by mouth daily. Active Cholecalciferol 250 MCG (31002 UT) capsule capsule Take by mouth. 0 [...] Active docusate sodium 100 mg oral capsule (15 sources) Start: 04-21-2024 End: 04-21-2024 take 1 capsule by mouth once daily Docusate Sodium (Colace) 100 mg capsule Active 100 MG PO Daily April 21, 2024 10:59am Start: 01-29-2023 take 1 capsule by [facility] twice daily Docusate 100 MG capsule Take 1 capsule by mouth 2 times daily. 60 capsule 01/29/2023 Active take 1 capsule by [facility] twice daily Docusate (Stool Softener) 100 MG capsule Take 1 capsule by mouth 2 times daily. 0 Active estrogens, conjugated (assisted) 0.625 mg/ml vaginal cream (5 sources) Estrogen [...] 8 hrs Active [facility] at mealtime as needed Ibuprofen 200 MG 1 tablet with food or milk as needed Orally Three times a day Active Ibuprofen 600 MG tablet Take 800 mg by mouth every 6 hours as needed for Mild Pain. 0 Active Insulin Aspart U-100 (Novolo g Flexpen U-100 Insulin) 100 unit/mL (3 mL) insulin pen (4 sources) Start: 11-05-2024 Insulin Aspart U-100 (Novolog Flexpen U-100 Insulin) 100 unit/mL (3 mL) insulin pen Active 1 sliding scale dose SUBCUT Use as Directed November 05, 2024 12:41pm Start: 12-13-2023 End: 11-05-2024 Insulin Aspart U-100 (Novolo g Flexpen U-100 Insulin) 100 unit/mL (3 mL) insulin pen Discontinued 1 sliding scale dose SUBCUT Use as Directed December 13, 2023 12:00am November 05, 2024 12:41pm Start: 12-13-2023 Insulin Aspart U-100 (Novolog Flexpen [...] affected eye Ophthalmic Twice a day Active Lutein (15 sources) Lutein [...] PO Daily at bedtime September 30, 2024 2:56pm Start: 08-29-2024 End: 09-30-2024 take 1 tablet by mouth three times daily Methocarbamol 500 mg tablet Discontinued 500 MG PO Three times daily August 29, 2024 1:00am September 30, 2024 2:59pm Start: 10-24-2023 End: 07-17-2024 take 2 tablets by mouth at bedtime Methocarbamol 750 mg tablet Discontinued 750 MG PO October 24, 2023 1:00am July 17, 2024 3:31pm FreeTextSi tablets Orally at HS; Note: Source [...] (5 sources) Multivitamin Act ag Multivitamin tablet (3 sources) Start: 07-29-2024 take 1 tablet by mouth once daily Multivitamin tablet Active 1 TAB PO Daily July 29, 2024 1:00am Start: 07-29-2024 take 1 tablet by william th once daily Multivitamin tablet Active 1 TAB PO Daily July 29, 2024 12:00am Multivitamin/Iron (5 sources) Multivitamin/Iro n Active nabumetone 750 mg oral tablet (2 sources) Nonsteroidal Anti-inflammatory Drug Start: nabumetone 750 MG tablet naloxone hydrochloride 40 mg/ml nasal spray (4 sources) Opioid Antagonist Start: End: naloxone 4 MG/0.1ML 1 spray by Nasal route once for 1 dose. [place] into the nose as directed. Call 911. If no response in 2 minutes use a new nasal spray in other nostril. Repeat until help arrives. 1 Each 01/29/2023 Active [place] 3 (5 sources) [place] 3 Active OneTouch Ultra 2 w/Device (18 sources) OneTouch Ultra 2 w/Device as directed Active oxybutynin chloride 5 mg oral tablet (14 sources) Cholinergic Muscarinic Antagonist Start: take 1 tablet by mouth once daily Oxybutynin Chloride 5 mg tablet Active 5 MG PO Daily April 21, 2024 12:00am Start: 02-29-2024 End: 04-21-2024 take 1 tablet by mouth once daily Oxybutynin Chloride 5 mg tablet extended release 24hr Discontinued 5 MG PO Daily February 29, 2024 12:21pm April 21, 2024 11:00am take 1 tablet by william three times daily as needed Oxybutynin Chloride [...] 2 MG/1.5ML as directed Subcutaneous Active Pancrelipase, Gln-Xbcp-Izfh, (CREON PO) (7 sources) take 1 tablet by mouth once daily Pancrelipase, Rfm-Sefo-Gvir, (CREON PO) Take 36,000 Units by mouth. 2 tablet by mouth with each meal, 1 tablet by mouth with 1 snack daily Active take 1 tablet by mouth once alannah y Pancrelipase, Zxk-Dsha-Rhvs, (CREON PO) Take 36,000 Units by mouth. [...] (Resistance Formula Probiotic) 10 billion cell capsule (3 sources) Start: 04-21-2024 take 10 capsules by mouth once daily Saccharomyces Boulardii (Resistance Formula Probiotic) 10 billion cell capsule Active 04559 MMU CELLS PO Daily April 21, 2024 12:00am Start: 04-21-2024 take 10 capsules by mouth once daily Saccharomyces Boulardii (Resistance Formula Probiotic) 10 billion cell capsule Active 23160 MMU CELLS PO Daily April 20, 2024 11:00pm Selenium (5 sources) Selenium Active SITagliptin 100 mg oral tablet (8 sources) Dipeptidyl Peptidase 4 Inhibitor Start: take 1 tablet by mouth once daily Sitagliptin Phosphate (Januvia) 100 mg tablet Active 100 MG PO Daily September 30, 2024 1:00am Start: 04-03-2023 take 1 tablet by william [...] (15 sources) Stool Softener A ctive thyroid (LONG TERM) (5 sources) Nature-Throid Ac tive Tumeric (3 sources) Start: 04-21-2024 Tumeric Active PO April 21, 2024 12:00am Start: 04-21-2024 Tumeric Active PO April 20, 2024 11:00pm turmeric extract 500 mg oral capsule (2 sources) Turmeric 500 MG capsule Take by mouth. 0 Active ubiquinol 100 mg oral capsule (3 sources) Start: 07-29-2024 take 1 capsule by mouth twice daily Coq10 (Ubiquinol) (Qunol Boyd Coq10) 100 mg capsule Active 100 MG PO Twice daily July 29, 2024 1:00am Ubrelvy 100 MG (5 sources) Start: 04-03-2023 [...] Sep, Active zonisamide 50 mg oral capsule (3 sources) Anti-epileptic Agent Start: 09-30-2024 take 1 capsule by mouth twice daily Zonisamide 50 mg capsule Active 50 MG PO Twice daily September 30, 2024 1:00am Completed/Discontinued Medications Medication Drug Class(es) Dates Sig (Normalized) Sig (Original) azithromycin 250 mg oral tablet (3 sources) Macrolide Antimicrobial Start: 12-13-2023 End: 01-16-2024 Azithromycin 250 mg tablet Discontinued 0 PO .COMPLEX 6 December 13, 2023 12:00am January 16, 2024 10:46am For 250 mg dose pack: take 500 mg today (day 1), then 250 mg for 4 days (days 2-5) PO baclofen 10 mg oral tablet (15 sources) gamma-Aminobutyric Acid-ergic Agonist Start: 07-17-2024 End: 08-29-2024 take 2 tablets by mouth twice daily Baclofen 10 mg tablet Discontinued 20 MG PO Twice daily July 17, 2024 1:00am August 29, 2024 12:04pm baclofen 10 MG t ablet Take 2 tablets by mouth as needed. Active take 1 tablet by william th twice daily at mealtime as needed Baclofen 20 MG 1 tablet Administer witho ut regards to meals as needed Orally Twice a day Active benzonatate 200 mg oral capsule (3 sources) Non-narcotic Antitussive Start: 01-29-2024 End: 02-18-2024 take 1 capsule by mouth three times daily as needed for cough Benzonatate 200 mg capsule Discontinued 200 MG PO Three times daily as needed for cough 30 January 29, 2024 12:00am February 18, 2024 10:32am cyclobenzaprine hydrochloride 5 mg oral tablet (5 sources) Muscle Relaxant Start: 08-13-2023 End: 01-16-2024 take 1 tablet by mouth once daily at bedtime Cyclobenzaprine 5 mg tablet Discontinued 1 TAB PO Daily at bedtime October 24, 2023 1:00am January 16, 2024 10:46am FreeTextSi tablet at bedtime as needed Orally Once a day; Note: Source Status: Start; Provider: Lindsay Conti dextromethorphan hydrobromide 3 mg/ml / promethazine hydrochloride 1.25 mg/ml oral solution (3 sources) Phenothiazine, Uncompetitive O-roxjhj-P-aspartate Receptor Antagonist, Sigma-1 Agonist Start: 01-23-2024 End: 01-29-2024 take 1 mL by mouth every four to six hours as needed for cough Promethazine-Dm 6.25-15 mg/5 mL syrup Discontinued 5 ML PO EVERY 4-6 HOURS as needed for cough 118 5 January 23, 2024 12:00am January 29, 2024 11:21am dicyclomine hydrochloride 10 mg oral capsule (16 sources) Anticholinergic Start: 08-29-2024 End: 09-30-2024 Dicyclomine 10 mg capsule Discontinued 10 MG PO August 29, 2024 1:00am September 30, 2024 2:54pm Start: 06-23-2024 End: 07-17-2024 take 1 tablet by mouth three times daily Dicyclomine 20 mg tablet Discontinued 20 MG PO Three times daily 90 June 23, 2024 12:00am July 17, 2024 3:33pm Start: 04-21-2024 End: 07-17-2024 take 1 capsule by mouth twice daily as needed for pain Dicyclomine 10 mg capsule Discontinued 10 MG PO Twice daily as needed for abdominal pain 60 April 21, 2024 12:00am July 17, 2024 3:33pm take 1 capsule by mo ut every eight hours Dicyclomine HCl 10 MG [...] Not-Taking doxycycline monohydrate 100 mg oral tablet (3 sources) Tetracycline-class Drug Start: End: take 1 tablet by mouth twice daily Doxycycline Monohydrate 100 mg tablet Discontinued 100 MG PO Twice daily 29 06January 23, 2024 12:00am January 29, 2024 11:21am DULoxetine (5 sources) Serotonin and Norepinephrine Reuptake Inhibitor take 1 capsule by mouth once daily Cymbalta 90 MG 1 capsule Orally Once a day for 30 day(s) Not-Taking eszopiclone 3 mg oral tablet (20 sources) Start: End: take 1 tablet by mouth once daily at bedtime Eszopiclone (Lunesta) 3 mg tablet Discontinued 3 MG PO Daily at bedtime April 21, 2024 12:00am July 15, 2024 11:01am take 1 tablet by mouth once alannah y eszopiclone 2 MG tablet Take 1 tablet by mouth daily. 0 Active fluconazole 150 mg oral tablet (3 sources) Azole Antifungal Start: 02-11-2024 End: 04-21-2024 Fluconazole 150 mg tablet Discontinued 150 MG PO Q3D 2 February 11, 2024 12:00am April 21, 2024 10:45am Take 1st dose at onset of symptoms then repeat in 3 days if continued symptoms fluticasone propionate 0.05 mg/actuat metered dose nasal spray (6 sources) Corticosteroid Start: 02-18-2024 End: 07-17-2024 take 1 spray(s) nasal route once daily Fluticasone Propionate (Flonase Allergy Relief) 50 mcg/actuation spray,suspension Discontinued 1 SPRAY INTRANASAL Daily February 18, 2024 12:00am July 17, 2024 3:33pm administer into each nostril Start: 02-11-2024 End: 02-18-2024 take 1 spray(s) nasal route twice daily Fluticasone Propionate (Flonase Allergy Relief) 50 mcg/actuation spray,suspension Discontinued 1 SPRAY INTRANASAL Twice daily February 11, 2024 12:00am February 18, 2024 10:32am administer into each nostril levothyroxine sodium 0.1 mg oral tablet (20 sources) l-Thyroxine Start: 03-24-2024 End: 09-30-2024 take 1 tablet by mouth once daily Levothyroxine 100 mcg tablet Discontinued 0 .ROUTE .COMPLEX May 15, 2024 2:39pm September 30, 2024 1:56pm TAKE 1 TABLET BY MOUTH DAILY Start: 03-07-2024 End: 03-24-2024 Levothyroxine 112 mcg tablet Discontinued 0 .ROUTE .COMPLEX March 20, 2024 11:19am March 24, 2024 12:44pm TAKE 1 TABLET ONCE DAILY Start: 02-18-2024 End: 03-07-2024 take 1 tablet by mouth once daily Levothyroxine 100 mcg tablet Discontinued 100 MCG PO Daily February 18, 2024 12:00am March 07, 2024 11:04am Start: 10-02-2022 End: 02-18-2024 take 1 tablet by mouth once daily Levothyroxine 112 mcg tablet Discontinued 1 TAB PO Daily October 24, 2023 1:00am February 18, 2024 10:30am FreeTextSi tablet Orally Once a day; Note: [...] as needed Externally Once a day Active linaclotide 0.072 mg oral capsule (11 sources) Guanylate Cyclase-C Agonist Start: 09-30-2024 End: 12-10-2024 take 1 capsule by mouth once daily Linaclotide (Linzess) 72 mcg capsule Discontinued 72 MCG PO Daily September 30, 2024 1:00am December 10, 2024 9:31am Start: 06-23-2024 End: 08-29-2024 take 1 capsule by mouth once daily Linaclotide (Linzess) 72 mcg capsule Discontinued 72 MCG PO Daily June 23, 2024 12:00am August 29, 2024 12:06pm Linzess 72 MCG 1 capsule at least 30 minutes before the first meal of the day on an empty stomach Orally Once a day Active loratadine 10 mg oral tablet (3 sources) Start: 02-18-2024 End: 02-18-2024 take 1 tablet by mouth once daily Loratadine (Claritin) 10 mg tablet Discontinued 10 MG PO Daily February 18, 2024 12:00am February 18, 2024 10:38am Magnesium (20 sources) Start: 04-21-2024 End: 09-30-2024 take 2 tablets by mouth once daily Magnesium 250 mg tablet Discontinued 500 MG PO Daily April 21, 2024 12:00am September 30, 2024 2:56pm Start: 04-21-2024 End: 09-30-2024 take 2 tablets by mouth once daily Magnesium 250 mg tablet Discontinued 500 MG PO Daily April 20, 2024 11:00pm September 30, 2024 1:56pm Magnesium Active mesalamine 1200 mg delayed release oral tablet (20 sources) Aminosalicylate Start: 04-21-2024 End: 07-29-2024 take 1 tablet by mouth once daily Mesalamine 1.2 gram tablet,delayed release (DR/EC) Discontinued 1.2 GM PO Daily April 21, 2024 12:00am July 29, 2024 10:37am Start: 01-18-2023 take 4 tablets by mo [...] 0 .ROUTE .COMPLEX 180 March 20, 2024 11:19am August 19, 2024 9:28am TAKE 1 TABLET TWICE DAILY WITH MEALS Start: 08-29-2022 End: 03-07-2024 take 1 tablet by mouth twice daily Metformin 1,000 mg tablet Discontinued 1 TAB PO Twice daily October 24, 2023 1:00am March 07, 2024 11:04am FreeTextSi tablet with a meal Orally TWICE A DAY; Note: Source Status: Taking; Refills: 3; Qty: 180 Tablet; Provider: Lindsay Conti methylPREDNISolone 4 mg oral tablet (9 sources) Corticosteroid Start: 01-23-2024 End: 02-11-2024 take 1 tablet by mouth once Methylprednisolone (Medrol (Marc)) 4 mg tablets,dose pack Discontinued 0 PO per package directions 21 January 23, 2024 12:00am February 11, 2024 11:36am PO PER PKG DIR Start: 08-09-2023 methylPREDNIso lone 4 MG Tab Therapy Pack tablet Take 1 tablet by mouth As directed. follow package directions 21 tablet 08/09/2023 Active Methylprednisolone 4 mg tablets,dose pack (3 sources) Start: 08-29-2024 End: 09-30-2024 Methylprednisolone 4 mg tablets,dose pack Discontinued 4 MG PO August 29, 2024 1:00am September 30, 2024 2:56pm Start: 08-29-2024 End: 09-30-2024 Methylprednisolone 4 mg tabl ets,dose pack Discontinued 4 MG PO August 29, 2024 12:00am September 30, 2024 1:56pm montelukast 10 mg oral tablet (9 sources) Leukotriene Receptor Antagonist Start: 03-17-2024 End: 04-21-2024 take 1 tablet by mouth once daily at bedtime Montelukast 10 mg tablet Discontinued 0 .ROUTE .COMPLEX 90 March 20, 2024 11:19am April 21, 2024 10:44am TAKE 1 TABLET BY MOUTH EVERY NIGHT AT BEDTIME Start: 02-18-2024 End: 03-17-2024 take 1 tablet by mouth once daily at bedtime Montelukast (Singulair) 10 mg tablet Discontinued 10 MG PO Daily at bedtime February 18, 2024 12:00am March 17, 2024 10:25am omeprazole 20 mg delayed release oral capsule (20 sources) Proton Pump Inhibitor Start: 10-24-2023 End: 09-30-2024 take 1 capsule by mouth once daily Omeprazole 20 mg capsule,delayed release(DR/EC) Discontinued 20 MG PO Daily April 21, 2024 12:00am September 30, 2024 2:57pm Omeprazole [address] tablet Take [...] Once a day for 30 day(s) Not-Taking Semaglutide (3 sources) Start: 12-13-19 End: 12-11-19 Semaglutide (Ozempic) 0.25 mg or 0.5 mg (2 mg/3 mL) pen injector Discontinued 0.5 MG SUBCUT every week December 13, 2023 12:00am December 10, 2024 9:32am for 4 weeks Start: 12-13-2023 Semaglutide (O zempic) 0.25 mg or 0.5 mg (2 mg/3 mL) pen injector Active 0.5 MG SUBCUT every week December 12, 2023 11:00pm for 4 weeks simethicone 125 mg oral capsule (3 sources) Start: 04-21-2024 End: 09-30-2024 take 1 capsule by mouth three times daily Simethicone (Gas Relief (Simethicone)) 125 mg capsule Discontinued 125 MG PO Three times daily April 21, 2024 12:00am September 30, 2024 2:57pm Tramadol (20 sources) Opioid Agonist Start: 04-21-2024 End: 09-30-2024 take 2 tablets by mouth twice daily as needed Tramadol 25 mg tablet Discontinued 50 MG PO Twice daily as needed April 21, 2024 12:00am September 30, 2024 2:58pm Start: 04-21-2024 End: 09-30-2024 take 2 tablets by mouth twice daily as needed Tramadol 25 mg tablet Discontinued 50 MG PO Twice daily as needed April 20, 2024 11:00pm September 30, 2024 1:58pm Start: 10-24-2023 End: 03-20-2024 take 1 tablet by mouth twice daily Tramadol 50 mg tablet Discontinued 50 MG PO Twice daily October 24, 2023 1:00am March 20, 2024 11:19am FreeTextSi tablet twice a day; Note: Source Status: Taking; Provider: Lindsay Cm ( ) Start: 02-16-2023 take 1 tablet by william th every six hours as needed for pain [...] 50 mg Discontinued PO D aily April 21, 2024 12:00am September 30, 2024 2:58pm Start: 04-21-2024 End: 09-30-2024 Zinc 50 mg [...] Abdominal pain; Translations: [Unspecified abdominal pain] Onset: 2 Episodic Acquired foot deformities (20 sources) Acquired [...] Chronic Chronic obstructive pulmonary disease and bronchiectasis (3 sources) Bronchitis; Translations: [Bronchitis, not specified as acute or chronic] 01-23-2024 Episodic Complication of device; implant or graft (20 sources) Broken internal joint prosthesis, unspecified site, subsequent encounter; Translations: [Joint pain] Episodic Complications of surgical procedures or medical care (6 sources) Complication of ventilation therapy 05-07-2024 Episodic [...] initial encounter] Onset: 2 Episodic Esophageal disorders (8 sources) Gastroesophageal reflux disease; Translations: [Gastro-esophageal reflux [...] Episodic Inflammatory diseases of female pelvic organs (3 sources) Vaginitis; Translations: [Acute vaginitis] 02-12-2024 Episodic [...] [Meningitis, unspecified] Episodic Miscellaneous mental health disorders (6 sources) Chronic insomnia; Translations: [Psychophysiologic insomnia] 05-07-2024 Chronic Mood disorders (16 sources) Dysthymia; Translations: [Dysthymic disorder] Onset: 8 05-07-2024 Chronic Mycoses (20 sources) Candidiasis; Translations: [Candidiasis, unspecified] Onset: 3 Episodic Nausea and vomiting (9 sources) Nausea; Translations: [Nausea] Onset: 4 08-29-2024 Episodic Nutritional deficiencies (20 sources) Vitamin D deficiency; Translations: [Vitamin D deficiency, unspecified] Chronic Nutritional deficiencies (6 sources) Cobalamin deficiency; Translations: [Deficiency of other specified B group vitamins] 07-17-2024 Episodic Osteoarthritis (20 sources) Osteoarthritis; Translations: [Unspecified osteoarthritis, unspecified site] Onset: 2 Chronic Other acquired deformities (7 sources) 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; Translations: [Contracture, right ankle] Chronic Other aftercare (1 source) Other half-way (current) drug therapy; Translations: [OTH NET SORTER CURRENT DRUG THERAPY] Onset: 3 Episodic Other [...] ureter] Onset: 9 Chronic Other gastrointestinal disorders (3 sources) Irritable bowel syndrome; Translations: [Mixed irritable bowel syndrome] 08-29-2024 Chronic Other gastrointestinal disorders (5 sources) Mixed irritable bowel syndrome; Translations: [Irritable [...] UNSPECIFIED] Onset: 2 Episodic Other gastrointestinal disorders (3 sources) Constipation alternates with diarrhea; Translations: [Other specified symptoms and signs involving the digestive system and abdomen] 01-16-2024 Episodic Other gastrointestinal disorders (3 sources) History of pancreatitis; Translations: [Personal history of other diseases of the digestive system] 08-29-2024 Episodic Other gastrointestinal disorders (6 sources) Abdominal bloating; Translations: [Abdominal distension (gaseous)] 04-21-2024 Episodic Other gastrointestinal disorders (6 sources) Abdominal distension (gaseous); Translations: [Flatulence, eructation, and gas pain] Onset: 4 08-29-2024 Episodic Other gastrointestinal disorders (2 sources) Personal history of other diseases of the digestive system; Translations: [Personal history of other diseases of digestive system] 08-29-2024 Episodic Other gastrointestinal disorders (1 source) Full incontinence of feces; Translations: [Full incontinence of feces] Onset: 5 Episodic Other hereditary and degenerative nervous system conditions (3 sources) Restless legs; Translations: [Restless legs syndrome] 05-07-2024 Chronic Other hereditary and degenerative nervous system conditions (3 sources) Restless legs syndrome; Translations: [Restless legs [...] Chronic Other nutritional; endocrine; and metabolic disorders (3 sources) Body mass index 30+ - obesity; Translations: [Body mass index (BMI) 34.0-34.9, adult] 05-07-2024 Chronic Other nutritional; endocrine; and metabolic disorders (3 sources) Hypocalcemia; Translations: [Hypocalcemia] 07-17-2024 Chronic Other upper respiratory disease (3 sources) Nasal congestion; Translations: [Nasal congestion] 02-11-2024 Episodic Other upper respiratory infections (10 sources) Chronic sinusitis; Translations: [Chronic sinusitis, unspecified] 01-23-2024 Chronic Other upper respiratory infections (17 sources) Acute maxillary sinusitis; Translations: [Acute recurrent maxillary sinusitis] Onset: 8 12-13-2023 Episodic Pancreatic disorders (not diabetes) (2 sources) Chronic pancreatitis; Translations: [Other chronic pancreatitis] Chronic Pancreatic disorders (not diabetes) (6 sources) Other specified diseases of pancreas; Translations: [...] Onset: 3 01-24-2023 Chronic Residual codes; unclassified (10 sources) Obstructive sleep apnea syndrome; Translations: [Obstructive sleep apnea] Onset: 8 02-18-2024 Chronic Residual codes; unclassified (3 sources) Daytime somnolence; Translations: [Other hypersomnia] 05-07-2024 Chronic Residual codes; unclassified (2 sources) Other hypersomnia; Translations: [Hypersomnia, unspecified] 07-17-2024 Chronic Residual codes; unclassified (3 sources) Obstructive sleep apnea (adult) (pediatric); Translations: [...] Translations: [Cervicalgia] Onset: 8 Episodic Substance-related disorders (6 sources) Hypnotic dependence; Translations: [Sedative, hypnotic or [...] Test Name Value Interpretation Reference Range Facility Basophils Auto (Bld) [#/Vol] on 11-10-2024 Basophils (Bld) [#/Vol] Automated basophil count 0.0-0.1 [facility] Basophils/100 WBC Auto (Bld) on 11-10-2024 Basophils/100 WBC (Bld) Automated basophil % 0.2-2.0 [facility] Eosinophils/100 WBC Auto (Bl d)on 11-10-2024 Eosinophils/100 WBC (Bld) Automated eosinophil % 0.9-7.0 [facility] Erythrocyte distribution wid th Auto (RBC) [Ratio]on 11-10-2024 Erythrocyte distribution width (RBC) [Ratio] Erythrocyte distribution width [Ratio] by Automated count 11.0-15.0 [facility] Estimated glomerular filtrat ion rate (GFR) non- Americanon 11-10-2024 GFR/1.73 sq M.predicted among non-blacks MDRD (S/P/Bld) [Vol rate/Area] Estimated glomerular filtration rate (GFR) non- >=60 mL/min/1.73m 2 [facility] Globulin Calc (S) [Mass/Vol] on 11-10-2024 Globulin (S) [Mass/Vol] Serum globulin measurement by calculation (mass/volume) [facility] Hematocrit Auto (Bld) [Volum e fraction]on 11-10-2024 Hematocrit (Bld) [Volume fraction] Hematocrit [Volume Fraction] of Blood by Automated count 36.0-48.0 [facility] Hemoglobin [Mass/volume] in Bloodon 11-10-2024 Hemoglobin (Bld) [Mass/Vol] Hemoglobin [Mass/volume] in Blood 12.0-16.0 [facility] Laboratory - Chemistry and C hemistry - challengeon 11-10-2024 Albumin [Mass/Vol] 3.7 g/dL 3.4-5.0 [facility] ALP [Catalytic activity/Vol] 81 U/L 46-116 [facility] ALT [Catalytic activity/Vol] 23 U/L 14-59 [facility] AST [Catalytic activity/Vol] 18 U/L 15-37 [facility] Bilirubin [Mass/Vol] 0.3 mg/dL 0.2-1.0 [facility] Calcium [Mass/Vol] 9.6 mg/dL 8.5-10.1 [facility] Chloride [Moles/Vol] 105 mmol/L 98-107 [facility] CO2 [Moles/Vol] 30.0 mmol/L 21.0-32.0 [facility] Creatinine [Mass/Vol] 0.80 mg/dL 0.55-1.02 [facility] GFR/1.73 sq M.predicted MDRD (S/P/Bld) [Vol rate/Area] mL/min/{1.73_m2} >=60 mL/min/1.73m 2 [facility] Glucose [Mass/Vol] 110 mg/dL High 74-106 [facility] Potassium [Moles/Vol] 4.9 mmol/L 3.5-5.1 [facility] Protein [Mass/Vol] 7.1 g/dL 6.4-8.2 [facility] Sodium [Moles/Vol] 144 mmol/L 136-145 [facility] Urea nitrogen [Mass/Vol] 21.0 mg/dL High 7.0-18.0 [facility] Urea nitrogen/Creatinine [Mass ratio] 26.3 mg/mg [facility] Laboratory - Hematology and Cell countson 03-03-2025 Immature granulocytes/100 WBC (Bld) 0.3 % 0.0-0.5 [facility] Leukocytes [#/volume] correc penelope for nucleated erythrocytes in Blood by Automated counon 11-10-2024 WBC corrected for nucl RBC Auto (Bld) [#/Vol] Leukocytes [#/volume] corrected for nucleated erythrocytes in Blood by Automated coun 4.0-11.0 [facility] Lymphocytes Auto (Bld) [#/Vo l]on 11-10-2024 Lymphocytes (Bld) [#/Vol] Lymphocytes [#/volume] in Blood by Automated count 1.2-3.8 [facility] Lymphocytes/100 WBC Auto (Bl d)on 11-10-2024 Lymphocytes/100 WBC (Bld) Lymphocytes/100 leukocytes in Blood by Automated count 20.5-60.0 [facility] MCH Auto (RBC) [Entitic mass ]on 11-10-2024 MCH (RBC) [Entitic mass] MCH [Entitic mass] by Automated count 26.7-34.0 [facility] MCHC Auto (RBC) [Mass/Vol]on 11-10-2024 MCHC (RBC) [Mass/Vol] MCHC [Mass/volume] by Automated count 29.9-35.2 [facility] MCV Auto (RBC) [Entitic vol] on 11-10-2024 MCV (RBC) [Entitic vol] MCV [Entitic volume] by Automated count 81.0-99.0 [facility] Monocytes Auto (Bld) [#/Vol] on 11-10-2024 Monocytes (Bld) [#/Vol] Automated blood monocyte count 0.3-0.8 [facility] Monocytes/100 WBC Auto (Bld) on 11-10-2024 Monocytes/100 WBC (Bld) Automated monocyte % 1.7-12.0 [facility] Neutrophils Auto (Bld) [#/Vo l]on 11-10-2024 Neutrophils (Bld) [#/Vol] Neutrophils [#/volume] in Blood by Automated count 1.4-6.5 [facility] Neutrophils/100 WBC Auto (Bl d)on 11-10-2024 Neutrophils/100 WBC (Bld) Automated neutrophil % 43.0-75.0 [facility] No Panel Informationon 11-10 Eosinophils # (Auto) 0.2 10 3/uL 0.0-0.7 [facility] Immature Granulocyte # (Auto) 0.02 10 3/uL 0.00-0.03 [facility] Platelet mean volume Auto (B ld) [Entitic vol]on 11-10-2024 Platelet mean volume (Bld) [Entitic vol] Platelet mean volume [Entitic volume] in Blood by Automated count 9.5-13.5 [facility] Platelets Auto (Bld) [#/Vol] on 11-10-2024 Platelets (Bld) [#/Vol] Platelets [#/volume] in Blood by Automated count 150-450 [facility] RBC Auto (Bld) [#/Vol]on RBC (Bld) [#/Vol] Erythrocytes [#/volume] in Blood by Automated count 4.20-5.40 [facility] Serum or plasma albumin/glob ulin mass ratioon 11-10-2024 Albumin/Globulin [Mass ratio] Serum or plasma albumin/globulin mass ratio [facility] Serum or plasma anion gap de terminationon 11-10-2024 Anion gap [Moles/Vol] Serum or plasma an ion gap determination [facility] Campy coli+jejuni BD MaxOrde red By: Jb Grady on 09-30-2024 C. coli+jejuni tuf gene DAISY+probe Ql (Stl) Campy coli+jejuni BD Max Negative [facility] Comment on above: Campylobacter test i ncludes C. jejuni and C. coli. Clostridioides difficile tox in B tcdB gene [Presence] in Stool by DAISY with probe deteOrdered By: Jb Grady on 09-30-2024 C. difficile toxin B tcdB gene DAISY+probe Ql (Stl) Clostridioides difficile toxin B tcdB gene [Presence] in Stool by DAISY with probe dete Negative [facility] Comment on above: Testing performed by RT-PCR Clostridium Difficileon 09-11 Clostridium Difficile Negative Normal Negative [facility] Comment on above: Result Comment: Test ing performed by RT-PCR PERFORMED BY: [facility] [address] [address] PATHOLOGIST SKID WORKER BENNY ARAUJO M.D. Performed By: #### S TCYRPTOAG, GIARDIA #### [facility] , #### CDT, ENT BACT PANEL #### [facility] [address] [place] [address] Cryptosporidium Antigen Stoo kristofer 09-30-2024 Cryptosporidium Antigen Stool Negative Normal Negative [facility] Comment on above: Order Comment: SOURC E OF SPECIMEN: STOOL Performed By: #### S TCYRPTOAG, GIARDIA #### [facility] , #### CDT, ENT BACT PANEL #### [facility] [address] [place] [address] Cryptosporidium sp Ag [Prese nce] in Stool by ImmunoassayOrdered By: Jb Grady on 09-30-2024 Cryptosporidium sp Ag IA Ql (Stl) Cryptosporidium sp Ag [Presence] in Stool by Immunoassay Negative [facility] Giardia Lamblia Ag EIA Stool on 09-30-2024 Giardia Lamblia Ag EIA Stool Negative Normal Negative [facility] Comment on above: Order Comment: SOURC E OF SPECIMEN: STOOL Result Comment: Perf ormed at: [facility] [address] [id number] Medical Record Retrieval Specialist: Tra Bay PhD, Phone: [phone] PERFORMED BY: [place] [address] PATHOLOGIST SKID WORKER BENNY ARAUJO M.D. Performed By: #### S TCYRPTOAG, GIARDIA #### [facility] , #### CDT, ENT BACT PANEL #### [facility] [address] [place] [address] Giardia lamblia Ag [Presence ] in Stool by ImmunoassayOrdered By: Jb Grady on 09-30-2024 G. lamblia Ag IA Ql (Stl) Giardia lamblia Ag [Presence] in Stool by Immunoassay Negative [facility] Comment on above: Performed at: [facility] [id number] [place], [place] [id number] Director: Tra Bay PhD, Phone: [phone] Salmonellosis BD MaxOrdered By: Jb Grady on 09-30-2024 Salmonella sp spaO gene DAISY+probe Ql (Stl) Salmonella sp spaO gene [Presence] in Stool by DAISY with probe detection Negative [facility] Comment on above: Testing performed by RT-PCR Shigella Tox 1+2 BD MaxOrder ed By: Jb Grady on 09-30-2024 E. coli stx1+stx2 genes DAISY+probe Ql (Stl) Escherichia coli Stx1 and Stx2 toxin stx1+stx2 genes [Presence] in Stool by DAISY with Negative [facility] Shigellosis BD MaxOrdered By : Jb Grady on 09-30-2024 Shigella species+EIEC invasion plasmid antigen H ipaH gene DAISY+probe Ql (Stl) Shigella species+EIEC invasion plasmid antigen H ipaH gene [Presence] in Stool by DAISY Negative [facility] Comment on above: Shigella sp. test in cludes Shigella species and Enteroinvasive E. coli (EIEC). Stool Bacterial Panelon 09-11 Campylobacter Negative Normal Negative [facility] Comment on above: Result Comment: Camp ylobacter test includes C. jejuni and C. coli. Performed By: #### S TCYRPTOAG, GIARDIA #### [facility] , #### CDT, ENT BACT PANEL #### [address] Salmonella Species Negative Normal Negative [facility] Comment on above: Result Comment: Test ing performed by RT-PCR PERFORMED BY: [place] [address] PATHOLOGIST SKID WORKER BENNY ARAUJO M.D. Performed By: #### S TCYRPTOAG, GIARDIA #### [facility] , #### CDT, ENT BACT PANEL #### [address] Shiga Toxin (E coli O157+oth) Negative Normal Negative [facility] Comment on above: Performed By: #### S TCYRPTOAG, GIARDIA #### [facility] , #### CDT, ENT BACT PANEL #### [address] Shigella Species Negative Normal Negative [facility] Comment on above: Result Comment: Shig brandy sp. test includes Shigella species and Enteroinvasive E. coli (EIEC). Performed By: #### S TCYRPTOAG, GIARDIA #### [facility] , #### CDT, ENT BACT PANEL #### [address] 36on 09-18-2024 36 LVM for pt to call clinic to schedule consult with Dr. eLavitt for Surgical intervention vs SCS. Please let investment underwriter or Nayana Crenshaw MA know when scheduled so we may notify [employer] reps. Normal [facility] XR KUBon 08-29-2024 XR KUB [facility] [address] [place] [address] XRay Report Signed Patient: Emily Macias MR#: [id number] : 1960 Acct:[id number] Age/Sex: 63 / F ADM Date: 08/29/24 Loc: Room: Type: [facility] Attending Dr: Jb Grady APRN Copies [...] PROCESS. Impression dictated by: Bar Sims Jr., D.OMonalisa08/29/2024 3:27 PM Dictation Location: [place] [address] Transcribed By: FLYNN 08/29/241526 Dictated By: Bar Sims Jr, DO 08/29/241525 Signed By: 08/29/24 152 Normal [facility] HbA1c HPLC (Bld) [Mass fract ion]on 07-29-2024 HbA1c (Bld) [Mass fraction] Hemoglobin A1c/Hemoglobin.total in Blood by HPLC [facility] Estimated glomerular filtrat ion rate (GFR) non- Americanon 07-17-2024 GFR/1.73 sq M.predicted among non-blacks MDRD (S/P/Bld) [Vol rate/Area] Estimated glomerular filtration rate (GFR) non- >=60 mL/min/1.73m 2 [facility] Globulin Calc (S) [Mass/Vol] on 07-17-2024 Globulin (S) [Mass/Vol] Serum globulin measurement by calculation (mass/volume) [facility] Iron binding capacity [Mass/ volume] in Serum or Plasmaon 07-17-2024 Iron binding capacity [Mass/Vol] Iron binding capacity [Mass/volume] in Serum or Plasma 250.0-450.0 [facility] Iron saturation [Mass Fracti on] in Serum or Plasmaon 07-17-2024 Iron saturation [Mass fraction] Iron saturation [Mass Fraction] in Serum or Plasma [facility] Laboratory - Chemistry and C hemistry - challengeon 07-17-2024 Albumin [Mass/Vol] 3.8 g/dL 3.4-5.0 [facility] ALP [Catalytic activity/Vol] 81 U/L 46-116 [facility] ALT [Catalytic activity/Vol] 21 U/L 14-59 [facility] AST [Catalytic activity/Vol] 18 U/L 15-37 [facility] Bilirubin [Mass/Vol] 0.4 mg/dL 0.2-1.0 [facility] Calcium [Mass/Vol] 9.2 mg/dL 8.5-10.1 [facility] Chloride [Moles/Vol] 105 mmol/L 98-107 [facility] CO2 [Moles/Vol] 24.1 mmol/L 21.0-32.0 [facility] Cobalamin (Vitamin B12) [Mass/Vol] 887 pg/mL 232-1245 [facility] Comment on above: Performed at: [address] [id number] Director: Tra Bay PhD, Phone: [phone] Creatinine [Mass/Vol] 0.84 mg/dL 0.55-1.02 [facility] Ferritin [Mass/Vol] 63.0 ng/mL 8.0-252.0 [facility] Free T4 [Mass/Vol] 1.23 ng/dL 0.76-1.46 [facility] GFR/1.73 sq M.predicted MDRD (S/P/Bld) [Vol rate/Area] mL/min/{1.73_m2} >=60 mL/min/1.73m 2 [facility] Glucose [Mass/Vol] 150 mg/dL High 74-106 [facility] Iron [Mass/Vol] 63.0 ug/dL 50.0-170.0 [facility] Potassium [Moles/Vol] 4.2 mmol/L 3.5-5.1 [facility] Protein [Mass/Vol] 7.1 g/dL 6.4-8.2 [facility] Sodium [Moles/Vol] 141 mmol/L 136-145 [facility] TSH Qn 0.749 m[IU]/L 0.358-3.740 [facility] Urea nitrogen [Mass/Vol] 21.0 mg/dL High 7.0-18.0 [facility] Urea nitrogen/Creatinine [Mass ratio] 25.0 mg/mg [facility] No Panel Informationon 07-17 25-Hydroxy Vitamin D Total 80.1 ng/mL [facility] Comment on above: <20 ng/mL Vit D defi cient20-<30 ng/mL Vit D [id number] ng/mL Vit D sufficient>100 ng/mL Potential Toxicity Serum or plasma albumin/glob ulin mass ratioon 07-17-2024 Albumin/Globulin [Mass ratio] Serum or plasma albumin/globulin mass ratio [facility] Serum or plasma anion gap de terminationon 07-17-2024 Anion gap [Moles/Vol] Serum or plasma an ion gap determination [facility] No Panel Informationon 02-26 Radiology Study observation (narrative) [facility] LARGE JOINT/BURSA INJECTION AND/OR ASPIRATION: L [...] complications The patient was prepped with Chloraprep. [facility] Sagar Krause MD 02/27/2024 1:38 PM [...] MG/ML The patient was prepped with Betadine. [facility] No Panel Informationon 02-20 [facility] Podiatry Office/Clinic Noteo n 01-18-2024 Podiatry [...] remember. Patient relates that they have tried [id number] pain relievers, padding, and modification of shoe [...] out of 10 sites as measured with [place] French monofilament bilateral, otherwise intact Gross motor [...] deep perone (more content not included)... Normal [facility] US Guidance/Localizationon 0 5-10-2024 US Guidance/Localization EXAM: Limited Diagnostic Musculoskeletal Ultrasound [with Ultrasound-Guided Injection of left superficial peroneal nerve at the anterior lateral ankle] CLINICAL HISTORY: Patient has concern for multiple peripheral nerve entrapments. History of left first metatarsophalangeal joint fusion with 3D implant TECHNIQUE: Musculoskeletal Ultrasound with Vericept e Next Gen unit with [12 MHz][L10-22] [...] Electronically Signed in Other Vendor System) Normal [facility] Podiatry Office/Clinic Noteo n 12-20-2023 [...] out of 10 sites as measured with [place] French monofilament bilateral, otherwise intact Gross motor [...] and barby (more content not included)... Normal [facility] US Guidance/Localizationon 0 12-20-2023 US Guidance/Localization EXAM: Limited Diagnostic Musculoskeletal Ultrasound [with Ultrasound-Guided Injection of left saphenous nerve] CLINICAL HISTORY: Patient has concern for multiple peripheral nerve entrapments. History of left first metatarsophalangeal joint fusion with 3D implant TECHNIQUE: Musculoskeletal Ultrasound with Vericept e Next Gen unit with [12 MHz][L10-22] [...] Electronically Signed in Other Vendor System) Normal [facility] XR Ankle 3 Views Bilateralon [...] Electronically Signed in Other Vendor System) Normal [facility] XR Foot 3 Views Bilateralon [...] Electronically Signed in Other Vendor System) Normal [facility] Glucose Glucometer (BldC) [M ass/Vol]Ordered By: Siva Ron on 05-09-2023 Glucose [Mass/Vol] 136 mg/dL [facility] Comment on above: Random Glucose Refer ence Range is dependent on time and content of last meal. Glucose of more than 200 mg/dL in a nonstressed, ambulatory subject supports the diagnosis of Diabetes Mellitus. No Panel InformationOrdered By: Siva Ron on 05-09-2023 Bedside Glucose Comment Glu2: cleaned meter [facility] PANCREATIC ELASTASE FECALon 01-22-2023 Pancreatic Elastase, Fecal 128 ug Elast./g Critically low >200 [facility] Comment on above: Result Comment: Jihan re Pancreatic Insufficiency: <100 Moderate Pancreatic Insufficiency: 100 - 200 Normal: >200 Performed By: #### H PYLORI #### [facility] [address] [place] [address] [address] Irene Cedillo LACTOFERRIN FECAL QUANTon Lactoferrin, Fecal, Quant. <1.00 Normal 0.00-7.24 [facility] Comment on above: Result Comment: Re sults [...] (IBS). Performed By: #### S EDR #### [facility] [address] [place] [address] [address] Irene Cedillo CALPROTECTIN, FECALon 2022 Calprotectin, Fecal 139 ug/g Critically high 0-120 [facility] Comment on above: Result Comment: Conc entration Interpretation Follow-Up <16 - 50 ug/g Normal None >50 -120 ug/g Borderline Re-evaluate in 4-6 weeks >120 ug/g Abnormal Repeat as clinically indicated Performed By: #### H PYLORI #### [facility] [address] [place] [address] [address] Irene Cedillo PANCREATIC ELASTASE FECALon 01-15-2023 Pancreatic Elastase, Fecal 161 ug Elast./g Critically low >200 [facility] Comment on above: Result Comment: Jihan re Pancreatic Insufficiency: <100 Moderate Pancreatic Insufficiency: 100 - 200 Normal: >200 Performed By: #### A NTI-NICOLLE #### [facility] [address] [place] [address] [address] Irene Cedillo TSHon 01-09-2023 TSH 1.630 uIU/mL Normal 0.358-3.740 [facility] Comment on above: Performed By: #### T SH #### [facility] [address] [place] [address] Dr. Irene Cedillo ANTIHISTIONE ANTIBODIESon Anti-histone Abs 0.5 Units Normal 0.0-0.9 [facility] Comment on above: Result Comment: Nega tive <1.0 Weak Positive 1.0 - 1.5 Moderate Positive 1.6 - 2.5 Strong Positive >2.5 Performed By: #### C K, CRP #### [facility] [address] [place] [address] Dr. Irene Cedillo LARGE JOINT/BURSA INJECTION AND/OR [...] The patient was prepped with Betadine. [facility] Radiology Study observation (narrative) [facility] US PELVIS AND TRANSVAGon US PELVIS AND TRANSVAG EXAM: US PELVIS AND TRANSVAG HISTORY: Left lower quadrant pain COMPARISON: None. TECHNIQUE: Pelvic sonography was performed utilizing grayscale and color Doppler technique. FINDINGS/ IMPRESSION: 1. Hysterectomy. 2. Ovaries not visualized. 3. No adnexal mass. 4. No significant free fluid. Electronically authenticated by: BRI BERGER Date: 2022-11-10 15:54 Normal [facility] LUPUS ANTICOAGULANT PROFILEo n 10-27-2022 Anticardiolipin Ab, IgG <10 Normal [facility] Comment on above: Result Comment: Refe rence Range: Negative: <15 Indeterminate: 15 - 20 Low to medium positive: >20 - 80 High positive: >80 Performed By: #### L UPUSAC #### [facility] [address] [place] [address] [address] Irene Cedillo Anticardiolipin Ab, IgM <10 Normal [facility] Comment on above: Result Comment: Refe rence Range: Negative: <13 Indeterminate: 13 - 20 Low to medium positive: >20 - 80 High positive: >80 Performed By: #### L UPUSAC #### [facility] [address] [address] [address] Irene Cedillo APTT 1:1 MANAGER HUM[employer]OURCES NIY [facility] Comment on above: Result Comment: Test ing Not Indicated This test was developed and its performance characteristics determined by [facility]. It has not been cleared or approved by the [place] Food and Drug Administration. Performed By: #### L UPUSAC #### [facility] [address] [address] [address] Irene Cedillo APTT 1:1 Saline NIY Normal [facility] Comment on above: Result Comment: Test ing Not Indicated This test was developed and its performance characteristics determined by [facility]. It has not been cleared or approved by the [place] Food and Drug Administration. Performed By: #### L UPUSAC #### [facility] [address] [address] [address] Irene Cedillo aPTT Coag (Bld) [Time] 23.0 s [facility] Comment on above: Result Comment: This test has not been validated for monitoring unfractionated heparin therapy. aPTT-based therapeutic ranges for unfractionated heparin therapy have not been established. Consider ordering Heparin anti-Xa (unfractionated). Reference Range: 18 years and older: 22.9 - 30.2 Performed By: #### L UPUSAC #### [facility] [address] [address] [address] Irene Cedillo Beta-2 Glycoprotein I, IgA <10 Normal [facility] Comment on above: Result Comment: The reference interval reflects a 3SD or 99th percentile interval. Reference Range: Negative: <26 Performed By: #### L UPUSAC #### [facility] [address] [address] [address] Irene Cedillo Beta-2 Glycoprotein I, IgG <10 Normal [facility] Comment on above: Result Comment: The reference interval reflects a 3SD or 99th percentile interval. Reference Range: Negative: <21 Performed By: #### L UPUSAC #### [facility] [address] [address] [address] Irene Cedillo Beta-2 Glycoprotein I, IgM <10 Normal [facility] Comment on above: Result Comment: The reference interval reflects a 3SD or 99th percentile interval. Reference Range: Negative: <33 Performed By: #### L UPUSAC #### [facility] [address] [address] [address] Irene Cedillo DRVVT Confirm Seconds NIY Normal [facility] Comment on above: Result Comment: Test ing Not Indicated Performed By: #### L UPUSAC #### [facility] [address] [address] [address] Irene Cedillo DRVVT Ratio NIY Normal [facility] Comment on above: Result Comment: Test ing Not Indicated Performed By: #### L UPUSAC #### [facility] [address] [address] [address] Irene Cedillo DRVVT Screen Seconds 33.2 sec Normal [facility] Comment on above: Result Comment: Refe rence Range: <= 47.0 Performed By: #### L UPUSAC #### [facility] [address] [address] [address] Irene Cedillo Hexagonal Phospholipid Neutral 0 sec Normal [facility] Comment on above: Result Comment: This value is NEGATIVE. This is a qualitative assay and is therefore reported as positive for lupus anticoagulant or negative. The quantitative value is provided as an aid in diagnosis. Reference Range: 0 - 11 Performed By: #### L UPUSAC #### [facility] [address] [place] [address] Dr. Irene Cedillo INR Coag (PPP) [Relative time] 0.9 {INR} Normal [facility] Comment on above: Result Comment: Refe rence Range: >1 month: 0.9 - 1.2 Performed By: #### L UPUSAC #### [facility] [address] [place] [address] Dr. Irene Cedillo LAC Interpretation Comment Normal [facility] Comment on above: Result Comment: A arelis pus anticoagulant is not detected. All antiphospholipid antibodies evaluated are normal. As antibody titers may fluctuate with time, repeat testing may be indicated. Please contact [facility] if further clarification is needed. Performed By: #### L UPUSAC #### [facility] [address] [place] [address] Dr. Irene Cedillo Platelet Neutralization 0.0 sec Normal [facility] Comment on above: Result Comment: Refe rence Range: 0.0 - 3.0 This test was developed and its performance characteristics determined by [employer]. It has not been cleared or approved by the Food and Drug Administration. Performed By: #### L UPUSAC #### [facility] [address] [place] [address] Dr. Irene Cedillo PT Coag (PPP) [Time] 10.0 s Normal [facility] Comment on above: Result Comment: Refe rence Range: 18 years and older: 9.1 - 12.0 Performed By: #### L UPUSAC #### [facility] [address] [place] [address] Dr. Irene Cedillo Thrombin Time 15.5 sec Normal [facility] Comment on above: Result Comment: Refe rence Range: 0.0 - 23.0 Performed By: #### L UPUSAC #### [facility] [address] [place] [address] Dr. Irene Cedillo ADRI by IFAon 10-23-2022 Antinuclear Antibodies, IFA Positive Abnormal [facility] Comment on above: Result Comment: Nega tive <1:80 Borderline 1:80 Positive >1:80 Performed By: #### T SH #### [facility] [address] [address] [address] Irene Cedillo Centriole Pattern Normal [facility] Comment on above: Performed By: #### T SH #### [facility] [address] [address] [address] Irene Cedillo Centromere Pattern Normal [facility] Comment on above: Performed By: #### T SH #### [facility] [address] [address] [address] Irene Cedillo Homogeneous Pattern 1:320 Critically high [facility] Comment on above: Result Comment: ICAP nomenclature: AC-1 Performed By: #### T SH #### [facility] [address] [address] [address] Irene Cedillo Midbody Pattern Normal [facility] Comment on above: Performed By: #### T SH #### [facility] [address] [place] [address] Dr. Irene Cedillo Note: Comment Normal [facility] Comment on above: Result Comment: For [...] titers Nucleosomes, Histones Drug-induced SLE Speckled Sm, BLOCKERS SKIVER, SCL-70, SLE,MCTD,PSS (diffuse form), SS-A/SS-B Sjogrens Nucleolar SCL-70, PM-1/SCL High titers Scleroderma, PM/DM Centromere Centromere PSS (limited form) w/Crest syndrome variable Nuclear Dot [id number] Primary Biliary Cirrhosis Nuclear GP210, Primary Biliary Cirrhosis Membrane margie A,B,C Performed By: #### T SH #### [facility] [address] [place] [address] Dr. Irene Cedillo Nuclear Dot Pattern Normal [facility] Comment on above: Performed By: #### T SH #### [facility] [address] [place] [address] Dr. Irene Cedillo Nuclear Membrane Pattern Normal [facility] Comment on above: Performed By: #### T SH #### [facility] [address] [place] [address] Dr. Irene Cedillo Nucleolar Pattern Normal [facility] Comment on above: Performed By: #### T SH #### [facility] [address] [place] [address] Dr. Irene Cedillo PCNA Pattern Normal [facility] Comment on above: Performed By: #### T SH #### [facility] [address] [place] [address] Dr. Irene Cedillo Speckled Pattern Normal [facility] Comment on above: Performed By: #### T SH #### [facility] [address] [place] [address] Dr. Irene Cedillo Spindle Apparatus Pattern Normal [facility] Comment on above: Performed By: #### T SH #### [facility] [address] [place] [address] Dr. Irene Cedillo ALDOLASEon 10-19-2022 Aldolase 3.6 U/L Normal 3.3-10.3 [facility] Comment on above: Performed By: #### T SH #### [facility] [address] [place] [address] Dr. Irene Cedillo ANTI-CENTROMERE B ABon 10-19 Anti-Centromere B Antibodies <0.2 Normal 0.0-0.9 [facility] Comment on above: Performed By: #### S EDR #### [facility] [address] [place] [address] Dr. Irene Cedillo ANTI-DNA DS ABon 10-19-2022 Anti-DNA (DS) Ab Qn 1 IU/mL Normal 0-9 [facility] Comment on above: Result Comment: Nega tive <5 Equivocal 5 - 9 Positive >9 Performed By: #### C CPAB #### [facility] [address] [place] [address] Dr. Irene Cedillo ANTI-NICOLLE-1on 10-19-2022 Anti-Nicolle-1 <0.2 Normal 0.0-0.9 [facility] Comment on above: Performed By: #### A NTI-NICOLLE #### [facility] [address] [place] [address] Dr. Irene Cedillo ANTICHROMATIN ANTIBODIESon 0 10-19-2022 Antichromatin Antibodies 0.5 AI Normal 0.0-0.9 [facility] Comment on above: Performed By: #### C K, CRP #### [facility] [address] [place] [address] Dr. Irene Cedillo ANTIEXTRACTABLE NUCLEAR ANTI BODIESon 10-19-2022 BLOCKERS SKIVER Antibodies <0.2 Normal 0.0-0.9 [facility] Comment on above: Performed By: #### H PYLORI #### [facility] [address] [place] [address] Dr. Irene Cedillo Performed By: #### C CPAB #### [facility] [address] [place] [address] Dr. Irene Cedillo Murray Antibodies <0.2 Normal 0.0-0.9 [facility] Comment on above: Performed By: #### H PYLORI #### [facility] [address] [place] [address] Dr. Irene Cedillo Performed By: #### C CPAB #### [facility] [address] [place] [address] Dr. Irene Cedillo ANTISCLERODERMA ABon 023 Antiscleroderma-70 Antibodies <0.2 Normal 0.0-0.9 [facility] Comment on above: Performed By: #### A NSCLER #### [facility] [address] [place] [address] Dr. Irene Cedillo C3 and C4 COMPLEMENTon 10-19 Complement C3, Serum 171 mg/dL Critically high 82-167 [facility] Comment on above: Performed By: #### H PYLORI #### [facility] [address] [place] [address] Dr. Irene Cedillo Complement C4, Serum 41 mg/dL Critically high 12-38 [facility] Comment on above: Performed By: #### H PYLORI #### [facility] [address] [place] [address] Dr. Irene Cedillo COMPLEMENT TOTAL (CH50)on Complement, Total (CH50) >60 Normal >41 [facility] Comment on above: Result Comment: Age [...] Performed By: #### C K, CRP #### [facility] [address] [address] [address] Irene Cedillo CYCLIC CITRULLINATED PEPTIDE AB (CCP)on 10-19-2022 CCP Antibodies IgG/IgA 3 units Normal 0-19 [facility] Comment on above: Result Comment: Nega tive <20 Weak positive 20 - 39 Moderate positive 40 - 59 Strong positive >59 Performed By: #### C CPAB #### [facility] [address] [address] [address] Irene Cedillo MITICHONDRIAL (M2) ANTIBODYo n 10-19-2022 Mitochondrial (M2) Antibody <20.0 Normal 0.0-20.0 [facility] Comment on above: Result Comment: Nega tive 0.0 - 20.0 Equivocal 20.1 - 24.9 Positive >24.9 . Mitochondrial (M2) Antibodies are found in 90-96% of patients with primary biliary cirrhosis. Performed By: #### C K, CRP #### [facility] [address] [address] [address] Irene Cedillo RHEUMATOID FACTORon 10-19-19 23 RA Latex Turbid. <10.0 Normal <14.0 [facility] Comment on above: Performed By: #### C CPAB #### [facility] [address] [address] [address] Irene Cedillo RPR QUANTon 10-19-2022 Rapid Plasma Reagin, Quant Non-Reactive Normal NonRea<1:1 [facility] Comment on above: Result Comment: Plea se Note: This test does not meet current guidelines for screening and diagnosis of syphilis. This test is intended for following treatment response in patients being treated for syphilis infection. To screen for syphilis infection, a reflex cascade that includes both RPR and a treponema-specific assay should be utilized, such as Treponema pallidum (Syphilis) Screening [place] (805993) or Rapid Plasma Reagin (RPR) Test With Reflex to Quantitative RPR and Confirmatory Treponema pallidum Antibodies (293256). Performed By: #### T SH #### [facility] [address] [place] [address] Dr. Irene Cedillo SJOGRENS ANTIBODIES (Anti SS A/B)on 10-19-2022 Sjogren's Anti-SS-A <0.2 Normal 0.0-0.9 [facility] Comment on above: Performed By: #### S EDR #### [facility] [address] [place] [address] Dr. Irene Cedillo Sjogren's Anti-SS-B <0.2 Normal 0.0-0.9 [facility] Comment on above: Performed By: #### S EDR #### [facility] [address] [place] [address] Dr. Irene Cedillo SMOOTH MUSCLE ANTIBODYon Actin (Smooth Muscle) Antibody 5 Units Normal 0-19 [facility] Comment on above: Result Comment: Nega tive 0 - 19 Weak positive 20 - 30 Moderate to strong positive >30 . Actin Antibodies are found in 52-85% of patients with autoimmune hepatitis or chronic active hepatitis and in 22% of patients with primary biliary cirrhosis. Performed By: #### C K, CRP #### [facility] [address] [place] [address] Dr. Irene Cedillo THYROGLOBULIN ABon Thyroglobulin Antibody <1.0 Normal 0.0-0.9 [facility] Comment on above: Result Comment: Thyr oglobulin Antibody measured by [employer] Performed By: #### C CPAB #### [facility] [address] [place] [address] Dr. Irene Cedillo THYROID PEROXIDASE ABon 02-0 Thyroid Peroxidase (TPO) Ab 11 IU/mL Normal 0-34 [facility] Comment on above: Performed By: #### T SH #### [facility] [address] [place] [address] Dr. Irene Cedillo CBC AUTO DIFFon 10-18-2022 BASO # 0.1 103/ul Normal 0.0-0.1 [facility] Comment on above: Performed By: #### C K, CRP #### [facility] [address] [place] [address] Dr. Irene Cedillo Basophils/100 WBC (Bld) 0.7 % Normal 0.2-2.0 [facility] Comment on above: Performed By: #### C K, CRP #### [facility] [address] [place] [address] Dr. Irene Cedillo EO # 0.2 103/ul Normal 0.0-0.7 [facility] Comment on above: Performed By: #### C K, CRP #### [facility] [address] [place] [address] Dr. Irene Cedillo Eosinophils/100 WBC (Bld) 2.8 % Normal 0.9-7.0 [facility] Comment on above: Performed By: #### C K, CRP #### [facility] [address] [place] [address] Dr. Irene Cedillo Erythrocyte distribution width (RBC) [Ratio] 13.4 % Normal 11.0-15.0 [facility] Comment on above: Performed By: #### C K, CRP #### [facility] [address] [place] [address] Dr. Irene Cedillo Hematocrit (Bld) [Volume fraction] 43.6 % Normal 36.0-48.0 [facility] Comment on above: Performed By: #### C K, CRP #### [facility] [address] [place] [address] Dr. Irene Cedillo Hemoglobin (Bld) [Mass/Vol] 14.1 g/dL Normal 12.0-16.0 [facility] Comment on above: Performed By: #### C K, CRP #### [facility] [address] [place] [address] Dr. Irene Cedillo IG # 0.01 10e3/ul Normal 0.00-0.03 [facility] Comment on above: Performed By: #### C K, CRP #### [facility] [address] [address] [address] Irene Cedillo IG % 0.1 % Normal 0.0-0.5 [facility] Comment on above: Performed By: #### C K, CRP #### [facility] [address] [address] [address] Irene Cedillo LYMPH # 2.5 103/ul Normal 1.2-3.8 [facility] Comment on above: Performed By: #### C K, CRP #### [facility] [address] [address] [address] Irene Cedillo Lymphocytes/100 WBC (Bld) 35.9 % Normal 20.5-60.0 [facility] Comment on above: Performed By: #### C K, CRP #### [facility] [address] [address] [address] Irene Cedillo MANUAL DIFF REQ NO Normal [facility] Comment on above: Performed By: #### C K, CRP #### [facility] [address] [address] [address] Irene Cedillo MCH (RBC) [Entitic mass] 29.6 pg Normal 26.7-34.0 [facility] Comment on above: Performed By: #### C K, CRP #### [facility] [address] [address] [address] Irene Cedillo MCHC (RBC) [Mass/Vol] 32.3 g/dL Normal 29.9-35.2 [facility] Comment on above: Performed By: #### C K, CRP #### [facility] [address] [address] [address] Irene Cedillo MCV (RBC) [Entitic vol] 91.6 fL Normal 81.0-99.0 [facility] Comment on above: Performed By: #### C K, CRP #### [facility] [address] [address] [address] Irene Cedillo MONO # 0.4 103/ul Normal 0.3-0.8 [facility] Comment on above: Performed By: #### C K, CRP #### [facility] [address] [place] [address] Dr. Irene Cedillo Monocytes/100 WBC (Bld) 5.2 % Normal 1.7-12.0 [facility] Comment on above: Performed By: #### C K, CRP #### [facility] [address] [place] [address] Dr. Irene Cedillo NEUT # 3.8 103/ul Normal 1.4-6.5 [facility] Comment on above: Performed By: #### C K, CRP #### [facility] [address] [place] [address] Dr. Irene Cedillo Neutrophils/100 WBC (Bld) 55.3 % Normal 43.0-75.0 [facility] Comment on above: Performed By: #### C K, CRP #### [facility] [address] [place] [address] Dr. Irene Cedillo Platelet mean volume (Bld) [Entitic vol] 9.7 fL Normal 9.5-13.5 [facility] Comment on above: Performed By: #### C K, CRP #### [facility] [address] [place] [address] Dr. Irene Cedillo PLT 271 103/ul Normal 150-450 [facility] Comment on above: Performed By: #### C K, CRP #### [facility] [address] [place] [address] Dr. Irene Cedillo RBC 4.76 106/ul Normal 4.20-5.40 [facility] Comment on above: Performed By: #### C K, CRP #### [facility] [address] [place] [address] Dr. Irene Cedillo WBC 6.9 103/ul Normal 4.0-11.0 [facility] Comment on above: Performed By: #### C K, CRP #### [facility] [address] [place] [address] Dr. Irene Cedillo CPKon 10-18-2022 CK [Catalytic activity/Vol] 57 U/L Normal 26-192 [facility] Comment on above: Performed By: #### T SH #### [facility] [address] [place] [address] Dr. Irene Cedillo CRPon 10-18-2022 CRP 0.8 mg/dL Normal <=1.0 [facility] Comment on above: Performed By: #### T SH #### [facility] [address] [place] [address] Dr. Irene Cedillo FREE T4on 10-18-2022 Free T4 [Mass/Vol] 1.07 ng/dL Normal 0.76-1.46 [facility] Comment on above: Performed By: #### C K, CRP #### [facility] [address] [place] [address] Dr. Irene Cedillo PROF 14(COMP METB)on 023 Albumin [Mass/Vol] 3.9 g/dL Normal 3.4-5.0 [facility] Comment on above: Performed By: #### T SH #### [facility] [address] [place] [address] Dr. Irene Cedillo Albumin/Globulin [Mass ratio] 1.1 {ratio} Normal [facility] Comment on above: Performed By: #### T SH #### [facility] [address] [place] [address] Dr. Irene Cedillo ALP [Catalytic activity/Vol] 90 U/L Normal 46-116 [facility] Comment on above: Performed By: #### T SH #### [facility] [address] [place] [address] Dr. Irene Cedillo ALT [Catalytic activity/Vol] 32 U/L Normal 14-59 [facility] Comment on above: Performed By: #### T SH #### [facility] [address] [place] [address] Dr. Irene Cedillo Anion gap [Moles/Vol] 13.8 mmol/L Normal [facility] Comment on above: Performed By: #### T SH #### [facility] [address] [place] [address] Dr. Irene Cedillo AST [Catalytic activity/Vol] 26 U/L Normal 15-37 [facility] Comment on above: Performed By: #### T SH #### [facility] [address] [place] [address] Dr. Irene Cedillo Bilirubin [Mass/Vol] 0.2 mg/dL Normal 0.2-1.0 [facility] Comment on above: Performed By: #### T SH #### [facility] [address] [place] [address] Dr. Irene Cedillo Calcium [Mass/Vol] 9.1 mg/dL Normal 8.5-10.1 [facility] Comment on above: Performed By: #### T SH #### [facility] [address] [place] [address] Dr. Irene Cedillo Chloride [Moles/Vol] 102 mmol/L Normal 98-107 [facility] Comment on above: Performed By: #### T SH #### [facility] [address] [place] [address] Dr. Irene Cedillo CO2 [Moles/Vol] 25.4 mmol/L Normal 21.0-32.0 [facility] [facility] Comment on above: Performed By: #### T SH #### [facility] [address] [place] [address] Dr. Irene Cedillo Creatinine [Mass/Vol] 0.64 mg/dL Normal 0.55-1.02 [facility] Comment on above: Performed By: #### T SH #### [facility] [address] [place] [address] Dr. Irene Cedillo EGFR-AF BOTSWANAN >60 Normal >=60 [facility] Comment on above: Performed By: #### T SH #### [facility] [address] [place] [address] Dr. Irene Cedillo EGFR-NON AF BOTSWANAN >60 Normal >=60 [facility] Comment on above: Performed By: #### T SH #### [facility] [address] [place] [address] Dr. Irene Cedillo Globulin (S) [Mass/Vol] 3.6 g/dL Normal [facility] Comment on above: Performed By: #### T SH #### [facility] [address] [address] [address] Irene Cedillo Glucose [Mass/Vol] 132 mg/dL Critically high 74-106 [facility] Comment on above: Performed By: #### T SH #### [facility] [address] [address] [address] Irene Cedillo Potassium [Moles/Vol] 4.2 mmol/L Normal 3.5-5.1 [facility] Comment on above: Performed By: #### T SH #### [facility] [address] [address] [address] Irene Cedillo Protein [Mass/Vol] 7.5 g/dL Normal 6.4-8.2 [facility] Comment on above: Performed By: #### T SH #### [facility] [address] [address] [address] Irene Cedillo Sodium [Moles/Vol] 137 mmol/L Normal 136-145 [facility] Comment on above: Performed By: #### T SH #### [facility] [address] [address] [address] Irene Cedillo Urea nitrogen [Mass/Vol] 19.0 mg/dL Critically high 7.0-18.0 [facility] Comment on above: Performed By: #### T SH #### [facility] [address] [address] [address] Irene Cedillo Urea nitrogen/Creatinine [Mass ratio] 29.7 mg/mg Normal [facility] Comment on above: Performed By: #### T SH #### [facility] [address] [address] [address] Irene Cedillo PROTIMEon 10-18-2022 INR Coag (PPP) [Relative time] {INR} Normal [facility] Comment on above: Performed By: #### C K, CRP #### [facility] [address] [address] [address] Irene Cedillo INR GUIDELINES SEE BELOW Normal [facility] Comment on above: Result Comment: JUAN RAMON RED INR: 2.0 - 3.0 CONDITIONS NOT LISTED BELOW 2.5 - 3.5 FOR PROSTHETIC HEART VALVE REPLACEMENT 2.5 - 3.5 RECURRENT THROMBOSIS Performed By: #### C K, CRP #### [facility] [address] [place] [address] Dr. Irene Cedillo PT Coag (PPP) [Time] 9.8 s Normal 9.0-11.6 [facility] Comment on above: Performed By: #### C K, CRP #### [facility] [address] [place] [address] Dr. Irene Cedillo PTTon 10-18-2022 aPTT Coag (Bld) [Time] 26.0 s Normal 22.3-36.2 [facility] Comment on above: Performed By: #### C K, CRP #### [facility] [address] [place] [address] Dr. Irene Cedillo [facility] 42 mm/hr Critically high <=30 [facility] Comment on above: Performed By: #### S EDR #### [facility] [address] [place] [address] Dr. Irene Cedillo TSHon 10-18-2022 TSH 0.718 uIU/mL Normal 0.358-3.740 [facility] Comment on above: Performed By: #### T SH #### [facility] [address] [place] [address] Dr. Irene Cedillo UA RANDOM W/MICROSCOPICon BACTERIA NONE SEEN Normal NONE SEEN [facility] Comment on above: Performed By: #### C CPAB #### [facility] [address] [place] [address] Dr. Irene Cedillo Bilirubin Ql (U) Negative Normal NEGATIVE [facility] Comment on above: Performed By: #### C CPAB #### [facility] [address] [place] [address] Dr. Irene Cedillo CAST NONE SEEN Normal NONE SEEN [facility] Comment on above: Performed By: #### C CPAB #### [facility] [address] [place] [address] Dr. Irene Cedillo Clarity (U) CLEAR Normal CLEAR [facility] Comment on above: Performed By: #### C CPAB #### [facility] [address] [place] [address] Dr. Irene Cedillo Color (U) LT. YELLOW Normal YELLOW [facility] Comment on above: Performed By: #### C CPAB #### [facility] [address] [place] [address] Dr. Irene Cedillo Crystals LM Nom (Urine sed) NONE SEEN Normal NONE SEEN [facility] Comment on above: Performed By: #### C CPAB #### [facility] [address] [place] [address] Dr. Irene Cedillo Epithelial cells LM Ql (Urine sed) NONE SEEN Normal NONE SEEN /RARE [facility] Comment on above: Performed By: #### C CPAB #### [facility] [address] [place] [address] Dr. Irene Cedillo Glucose Ql (U) Negative Normal NEGATIVE [facility] Comment on above: Performed By: #### C CPAB #### [facility] [address] [place] [address] Dr. Irene Cedillo Hemoglobin Ql (U) Negative Normal NEGATIVE [facility] Comment on above: Performed By: #### C CPAB #### [facility] [address] [place] [address] Dr. Irene Cedillo Ketones Ql (U) Negative Normal NEGATIVE [facility] Comment on above: Performed By: #### C CPAB #### [facility] [address] [place] [address] Dr. Irene Cedillo LEUKOCYTES Negative Normal NEGATIVE [facility] Comment on above: Performed By: #### C CPAB #### [facility] [address] [place] [address] Dr. Irene Cedillo MUCOUS NONE SEEN Normal NONE SEEN [facility] Comment on above: Performed By: #### C CPAB #### [facility] [address] [place] [address] Dr. Irene Cedillo Nitrite Ql (U) Negative Normal NEGATIVE [facility] Comment on above: Performed By: #### C CPAB #### [facility] [address] [place] [address] Dr. Irene Cedillo pH (U) 5.5 [pH] Normal 5-9 [facility] Comment on above: Performed By: #### C CPAB #### [facility] [address] [place] [address] Dr. Irene Cedillo RBC 0-2 Normal 0-2 [facility] Comment on above: Performed By: #### C CPAB #### [facility] [address] [place] [address] Dr. Irene Cedillo SPEC GRAVITY 1.020 Normal 1.005-<=1.025 [facility] Comment on above: Performed By: #### C CPAB #### [facility] [address] [place] [address] Dr. Irene Cedillo UA PROTEIN Negative Normal NEGATIVE/ TRACE [facility] Comment on above: Performed By: #### C CPAB #### [facility] [address] [place] [address] Dr. Irene Cedillo Urobilinogen Qn (U) 0.2 {Junior'U}/dL Normal 0.2 - 1. 0 [facility] Comment on above: Performed By: #### C CPAB #### [facility] [address] [place] [address] Dr. Irene Cedillo WBC NONE SEEN Normal NONE SEEN [facility] Comment on above: Performed By: #### C CPAB #### [facility] [address] [place] [address] Dr. Irene Cedillo HLA B 27on 09-21-2022 HLA-B27 Negative Normal [facility] Comment on above: Result Comment: HLA- B*27 Negative B27 allele interpretation for all loci based on IMGT/HLA database version 3.44 This test was developed and its performance characteristics determined by [facility]. It has not been cleared or approved by the Food and Drug Administration. [facility] CLIA ID Number [id number] . This test was performed using PCR (Polymerase Chain Reaction)/SSOP (Sequence Specific Oligonucleotide Probes) technique. SBT (Sequence Based Typing) and/or SSP (Sequence Specific Primers) may be used as supplemental methods when necessary. Please contact [facility] Customer Service at if you have any questions. . Director of [facility] Laboratory Dr Kris Salinas, PhD Performed By: #### C CPAB #### [facility] [address] [address] [address] Irene Cedillo ADRI by IFAon 09-15-2022 Antinuclear Antibodies, IFA Positive Abnormal [facility] Comment on above: Result Comment: Nega tive <1:80 Borderline 1:80 Positive >1:80 Performed By: #### S EDR #### [facility] [address] [address] [address] Irene Cedillo Centriole Pattern Normal [facility] Comment on above: Performed By: #### S EDR #### [facility] [address] [place] [address] Dr. Irene Cedillo Centromere Pattern Normal [facility] Comment on above: Performed By: #### S EDR #### [facility] [address] [address] [address] Irene Cedillo Homogeneous Pattern 1:160 Critically high [facility] Comment on above: Result Comment: ICAP nomenclature: AC-1 Performed By: #### S EDR #### [facility] [address] [place] [address] Dr. Irene Cedillo Midbody Pattern Normal [facility] Comment on above: Performed By: #### S EDR #### [facility] [address] [address] [address] Irene Cedillo Note: Comment Normal [facility] Comment on above: Result Comment: For [...] titers Nucleosomes, Histones Drug-induced SLE Speckled Sm, BLOCKERS SKIVER, SCL-70, SLE,MCTD,PSS (diffuse form), SS-A/SS-B Sjogrens Nucleolar SCL-70, PM-1/SCL High titers Scleroderma, PM/DM Centromere Centromere PSS (limited form) w/Crest syndrome variable Nuclear Dot Sp100,[id number] Primary Biliary Cirrhosis Nuclear GP210, Primary Biliary Cirrhosis Membrane margie A,B,C Performed By: #### S EDR #### [facility] [address] [place] [address] Dr. Irene Cedillo Nuclear Dot Pattern Normal [facility] Comment on above: Performed By: #### S EDR #### [facility] [address] [address] [address] Irene Cedillo Nuclear Membrane Pattern Normal [facility] Comment on above: Performed By: #### S EDR #### [facility] [address] [address] [address] Irene Cedillo Nucleolar Pattern Normal [facility] Comment on above: Performed By: #### S EDR #### [facility] [address] [place] [address] Dr. Irene Cedillo PCNA Pattern Normal [facility] Comment on above: Performed By: #### S EDR #### [facility] [address] [address] [address] Irene Cedillo Speckled Pattern Normal [facility] Comment on above: Performed By: #### S EDR #### [facility] [address] [address] [address] Irene Cedillo Spindle Apparatus Pattern Normal [facility] Comment on above: Performed By: #### S EDR #### [facility] [address] [place] [address] Dr. Irene Cedillo CYCLIC CITRULLINATED PEPTIDE AB (CCP)on 09-15-2022 CCP Antibodies IgG/IgA 0 units Normal 0-19 [facility] Comment on above: Result Comment: Nega tive <20 Weak positive 20 - 39 Moderate positive 40 - 59 Strong positive >59 Performed By: #### C CPAB #### [facility] [address] [place] [address] Dr. Irene Cedillo RHEUMATOID FACTORon 09-15-19 23 RA Latex Turbid. <10.0 Normal <14.0 [facility] Comment on above: Performed By: #### C K, CRP #### [facility] [address] [place] [address] Dr. Irene Cedillo CBC AUTO DIFFon 09-13-2022 BASO # 0.0 103/ul Normal 0.0-0.1 [facility] Comment on above: Performed By: #### H PYLORI #### [facility] [address] [address] [address] Irene Cedillo Basophils/100 WBC (Bld) 0.4 % Normal 0.2-2.0 [facility] Comment on above: Performed By: #### H PYLORI #### [facility] [address] [address] [address] Irene Cedillo EO # 0.3 103/ul Normal 0.0-0.7 [facility] Comment on above: Performed By: #### H PYLORI #### [facility] [address] [place] [address] Dr. Irene Cedillo Eosinophils/100 WBC (Bld) 4.4 % Normal 0.9-7.0 [facility] Comment on above: Performed By: #### H PYLORI #### [facility] [address] [place] [address] Dr. Irene Cedillo Erythrocyte distribution width (RBC) [Ratio] 13.2 % Normal 11.0-15.0 [facility] Comment on above: Performed By: #### H PYLORI #### [facility] [address] [place] [address] Dr. Irene Cedillo Hematocrit (Bld) [Volume fraction] 41.5 % Normal 36.0-48.0 [facility] Comment on above: Performed By: #### H PYLORI #### [facility] [address] [place] [address] Dr. Irene Cedillo Hemoglobin (Bld) [Mass/Vol] 14.0 g/dL Normal 12.0-16.0 [facility] Comment on above: Performed By: #### H PYLORI #### [facility] [address] [place] [address] Dr. Irene Cedillo IG # 0.02 10e3/ul Normal 0.00-0.03 [facility] Comment on above: Performed By: #### H PYLORI #### [facility] [address] [place] [address] Dr. Irene Cedillo IG % 0.3 % Normal 0.0-0.5 [facility] Comment on above: Performed By: #### H PYLORI #### [facility] [address] [place] [address] Dr. Irene Cedillo LYMPH # 2.5 103/ul Normal 1.2-3.8 [facility] Comment on above: Performed By: #### H PYLORI #### [facility] [address] [place] [address] Dr. Irene Cedillo Lymphocytes/100 WBC (Bld) 34.4 % Normal 20.5-60.0 [facility] Comment on above: Performed By: #### H PYLORI #### [facility] [address] [place] [address] Dr. Irene Cedillo MANUAL DIFF REQ NO Normal [facility] Comment on above: Performed By: #### H PYLORI #### [facility] [address] [place] [address] Dr. Irene Cedillo MCH (RBC) [Entitic mass] 30.0 pg Normal 26.7-34.0 [facility] Comment on above: Performed By: #### H PYLORI #### [facility] [address] [place] [address] Dr. Irene Cedillo MCHC (RBC) [Mass/Vol] 33.7 g/dL Normal 29.9-35.2 [facility] Comment on above: Performed By: #### H PYLORI #### [facility] [address] [place] [address] Dr. Irene Cedillo MCV (RBC) [Entitic vol] 88.9 fL Normal 81.0-99.0 [facility] Comment on above: Performed By: #### H PYLORI #### [facility] [address] [place] [address] Dr. Irene Cedillo MONO # 0.4 103/ul Normal 0.3-0.8 [facility] Comment on above: Performed By: #### H PYLORI #### [facility] [address] [place] [address] Dr. Irene Cedillo Monocytes/100 WBC (Bld) 5.6 % Normal 1.7-12.0 [facility] Comment on above: Performed By: #### H PYLORI #### [facility] [address] [place] [address] Dr. Irene Cedillo NEUT # 4.0 103/ul Normal 1.4-6.5 [facility] Comment on above: Performed By: #### H PYLORI #### [facility] [address] [place] [address] Dr. Irene Cedillo Neutrophils/100 WBC (Bld) 54.9 % Normal 43.0-75.0 [facility] Comment on above: Performed By: #### H PYLORI #### [facility] [address] [place] [address] Dr. Irene Cedillo Platelet mean volume (Bld) [Entitic vol] 9.6 fL Normal 9.5-13.5 [facility] Comment on above: Performed By: #### H PYLORI #### [facility] [address] [place] [address] Dr. Irene Cedillo PLT 314 103/ul Normal 150-450 [facility] Comment on above: Performed By: #### H PYLORI #### [facility] [address] [place] [address] Dr. Irene Cedillo RBC 4.67 106/ul Normal 4.20-5.40 [facility] Comment on above: Performed By: #### H PYLORI #### [facility] [address] [place] [address] Dr. Irene Cedillo WBC 7.3 103/ul Normal 4.0-11.0 [facility] Comment on above: Performed By: #### H PYLORI #### [facility] [address] [place] [address] Dr. Irene Cedillo CRPon 09-13-2022 CRP 0.3 mg/dL Normal <=1.0 [facility] Comment on above: Performed By: #### C K, CRP #### [facility] [address] [place] [address] Dr. Irene Cedillo RENAL FUNCTION PANELon 09-13 Albumin [Mass/Vol] 3.7 g/dL Normal 3.4-5.0 [facility] Comment on above: Performed By: #### R ENAL #### [facility] [address] [place] [address] Dr. Irene Cedillo Calcium [Mass/Vol] 9.3 mg/dL Normal 8.5-10.1 [facility] Comment on above: Performed By: #### R ENAL #### [facility] [address] [place] [address] Dr. Irene Cedillo Chloride [Moles/Vol] 105 mmol/L Normal 98-107 [facility] Comment on above: Performed By: #### R ENAL #### [facility] [address] [place] [address] Dr. Irene Cedillo CO2 [Moles/Vol] 30.5 mmol/L Normal 21.0-32.0 [facility] Comment on above: Performed By: #### R ENAL #### [facility] [address] [place] [address] Dr. Irene Cedillo Creatinine [Mass/Vol] 0.64 mg/dL Normal 0.55-1.02 [facility] Comment on above: Performed By: #### R ENAL #### [facility] [address] [place] [address] Dr. Irene Cedillo EGFR-AF BOTSWANAN >60 Normal >=60 [facility] Comment on above: Performed By: #### R ENAL #### [facility] [address] [place] [address] Dr. Irene Cedillo EGFR-NON AF BOTSWANAN >60 Normal >=60 [facility] Comment on above: Performed By: #### R ENAL #### [facility] [address] [place] [address] Dr. Irene Cedillo Glucose [Mass/Vol] 130 mg/dL Critically high 74-106 [facility] Comment on above: Performed By: #### R ENAL #### [facility] [address] [place] [address] Dr. Irene Cedillo Phosphate [Mass/Vol] 3.9 mg/dL Normal 2.6-4.7 [facility] Comment on above: Performed By: #### R ENAL #### [facility] [address] [address] [address] Irene Cedillo Potassium [Moles/Vol] 4.0 mmol/L Normal 3.5-5.1 [facility] Comment on above: Performed By: #### R ENAL #### [facility] [address] [place] [address] Dr. Irene Cedillo Sodium [Moles/Vol] 143 mmol/L Normal 136-145 [facility] Comment on above: Performed By: #### R ENAL #### [facility] [address] [place] [address] Dr. Irene Cedillo Urea nitrogen [Mass/Vol] 16.0 mg/dL Normal 7.0-18.0 [facility] Comment on above: Performed By: #### R ENAL #### [facility] [address] [place] [address] Dr. Irene Cedillo SED RATE [facility] 2022 SED RATE 20 mm/hr Normal <=30 [facility] Comment on above: Performed By: #### C K, CRP #### [facility] [address] [place] [address] Dr. Irene Cedillo MRI ANKLE LT WO [...] by: TONY DICKINSON Date: 2022-08-26 09:36 Normal [facility] MAMM SCREEN 3D RIAN CADon 08-08-2022 MG MAMM SCREEN 3D RIAN CAD Patient: EMILY MACIAS Exam Date: 08/08/2022 : 1960 Gender:F Ordering : DR. KENDRA MCKINLEY M.D. Admission #: [id number] Family : DR NETTA MONTOYA M.D. Order #: [id number] CLICK HERE TO VIEW EXAM RADIOLOGY REPORT [...] breast cancer at age 78. LOCATION: [facility] BREAST COMPOSITION: Heterogeneously dense,which may obscure [...] Alexandre M.D. on 08/09/2022 at 15:10 Normal [facility] GLYCOHEMOGLOBIN A1Con 2021 ADA RECOMMENDATION SEE BELOW Normal [facility] Comment on above: Result Comment: ADA RECOMMENDED LIMIT 4.0 - 6.0 ADA THERAPEUTIC TARGET < 7.0 ACTION SUGGESTED > 7.0 Performed By: #### C CPAB #### [facility] [address] [address] [address] Irene Cedillo Glucose [Mass/Vol] 128 mg/dL Normal [facility] Comment on above: Performed By: #### C CPAB #### [facility] [address] [address] [address] Irene Cedillo HbA1c (Bld) [Mass fraction] 6.1 % Normal 4.5-6.2 [facility] Comment on above: Performed By: #### C CPAB #### [facility] [address] [place] [address] Dr. Irene Cedillo XR FOOT RIAN MIN [...] PELON ALEXANDRE Date: 2022-07-06 06:21 Normal [facility] OVA AND PARASITE EXAMINATION on 04-13-2022 Ova + Parasite Exam Final report Normal [facility] Comment on above: Result Comment: Thes e results were obtained using wet preparation(s) and trichrome stained smear. This test does not include testing for Cryptosporidium parvum, Cyclospora, or Microsporidia. Performed By: #### S EDR #### [facility] [address] [address] [address] Irene Cedillo Result 1 Comment Normal [facility] Comment on above: Result Comment: No o va, cysts, or parasites seen. . One negative specimen does not rule out the possibility of a parasitic infection. Performed By: #### S EDR #### [facility] [address] [address] [address] Irene Cedillo CALPROTECTIN, FECALon 2021 Calprotectin, Fecal 36 ug/g Normal 0-120 [facility] Comment on above: Result Comment: Conc entration Interpretation Follow-Up <16 - 50 ug/g Normal None >50 -120 ug/g Borderline Re-evaluate in 4-6 weeks >120 ug/g Abnormal Repeat as clinically indicated Performed By: #### C K, CRP #### [facility] [address] [place] [address] Dr. Irene Cedillo HELICOBACTER PYLORI AG STOOL on 04-12-2022 H. pylori Stool Ag, EIA Negative Normal Negative [facility] Comment on above: Performed By: #### H PYLORI #### [facility] [address] [place] [address] Dr. Irene Cedillo LACTOFERRIN FECAL QUANTon Lactoferrin, Fecal, Quant. <1.00 Normal 0.00-7.24 [facility] Comment on above: Result Comment: Re sults [...] (IBS). Performed By: #### T SH #### [facility] [address] [place] [address] Dr. Irene Cedillo C. DIFF PCRon 04-08-2022 C. DIFFICILE PCR Negative Normal NEGATIVE [facility] Comment on above: Performed By: #### S EDR #### [facility] [address] [place] [address] Dr. Irene Cedillo GI PANEL (PCR)on 04-08-2022 Adenovirus F 40/41 Not detected Normal NOT DETECTED [facility] Comment on above: Performed By: #### S EDR #### [facility] [address] [place] [address] Dr. Irene Cedillo Astrovirus Not detected Normal NOT DETECTED [facility] Comment on above: Performed By: #### S EDR #### [facility] [address] [place] [address] Dr. Irene Cedillo C. Diff toxin A/B Not detected Normal NOT DETECTED [facility] Comment on above: Performed By: #### S EDR #### [facility] [address] [place] [address] Dr. Irene Cedillo Campylobacter Not detected Normal NOT DETECTED [facility] Comment on above: Performed By: #### S EDR #### [facility] [address] [place] [address] Dr. Irene Cedillo Cryptosporidium Not detected Normal NOT DETECTED [facility] Comment on above: Performed By: #### S EDR #### [facility] [address] [place] [address] Dr. Irene Cedillo Cyclos. Cayetanensis Not detected Normal NOT DETECTED [facility] Comment on above: Performed By: #### S EDR #### [facility] [address] [place] [address] Dr. Irene Cedillo E. Coli O157 Not Applicable Normal Not Applicable [facility] Comment on above: Performed By: #### S EDR #### [facility] [address] [place] [address] Dr. Irene Cedillo E. histolytica Not detected Normal NOT DETECTED [facility] Comment on above: Performed By: #### S EDR #### [facility] [address] [place] [address] Dr. Irene Cedillo EAEC Not detected Normal NOT DETECTED [facility] Comment on above: Performed By: #### S EDR #### [facility] [address] [place] [address] Dr. Irene Cedillo EIEC Not detected Normal NOT DETECTED [facility] Comment on above: Performed By: #### S EDR #### [facility] [address] [place] [address] Dr. Irene Cedillo EPEC Not detected Normal NOT DETECTED [facility] Comment on above: Performed By: #### S EDR #### [facility] [address] [place] [address] Dr. Irene Cedillo ETEC Not detected Normal NOT DETECTED [facility] Comment on above: Performed By: #### S EDR #### [facility] [address] [place] [address] Dr. Irene Galindo Lamblirhys Not detected Normal NOT DETECTED [facility] Comment on above: Performed By: #### S EDR #### [facility] [address] [place] [address] Dr. Irene VIGIL CONTROLS PASSED Normal [facility] Comment on above: Performed By: #### S EDR #### [facility] [address] [place] [address] Dr. Irene GRULLON HEADER GI PANEL BACTERIA Normal [facility] Comment on above: Performed By: #### S EDR #### [facility] [address] [place] [address] Dr. Irene CALDERA ECOLI GI PANEL DIARRHEAGEN IC E.COLI / SHIGELLA Normal [facility] Comment on above: Performed By: #### S EDR #### [facility] [address] [place] [address] Dr. Irene CALDERA INFO SEE BELOW [facility] Comment on above: Result Comment: EAEC - Enteroaggregative E. Coli EPEC- Enteropathogenic E. Coli ETEC- Enterotoxigenic E. Coli lt/st STEC- Shigella-like toxin-producing E. Coli stx1/stx2 EIEC- Shigella/Enteroinvasive E. Coli Performed By: #### S EDR #### [facility] [address] [address] [address] Irene CALDERA PARASITES GI PANEL PARASITES Normal [facility] Comment on above: Performed By: #### S EDR #### [facility] [address] [address] [address] Irene CALDERA VIRUS GI PANEL VIRUSES Normal [facility] Comment on above: Performed By: #### S EDR #### [facility] [address] [address] [address] Irene Cedillo Norovirus GI/GII Not detected Normal NOT DETECTED [facility] Comment on above: Performed By: #### S EDR #### [facility] [address] [place] [address] Dr. Irene Cedillo P. Shigelloides Not detected Normal NOT DETECTED [facility] Comment on above: Performed By: #### S EDR #### [facility] [address] [place] [address] Dr. Irene Cedillo Rotavirus A Not detected Normal NOT DETECTED [facility] Comment on above: Performed By: #### S EDR #### [facility] [address] [address] [address] Irene Cedillo Salmonella Not detected Normal NOT DETECTED [facility] Comment on above: Performed By: #### S EDR #### [facility] [address] [place] [address] Dr. Irene Cedillo Sapovirus Not detected Normal NOT DETECTED [facility] Comment on above: Performed By: #### S EDR #### [facility] [address] [place] [address] Dr. Irene Cedillo STEC Not detected Normal NOT DETECTED [facility] Comment on above: Performed By: #### S EDR #### [facility] [address] [place] [address] Dr. Irene Cedillo Vibrio Not detected Normal NOT DETECTED [facility] Comment on above: Performed By: #### S EDR #### [facility] [address] [address] [address] Irene Cedillo Vibrio Cholera Not detected Normal NOT DETECTED [facility] Comment on above: Performed By: #### S EDR #### [facility] [address] [place] [address] Dr. Irene Cedillo Y. Enterocolitica Not detected Normal NOT DETECTED [facility] Comment on above: Performed By: #### S EDR #### [facility] [address] [place] [address] Dr. Irene Cedillo BUNon 03-27-2022 Urea nitrogen [Mass/Vol] 20.0 mg/dL Critically high 7.0-18.0 [facility] Comment on above: Performed By: #### C K, CRP #### [facility] [address] [place] [address] Dr. Irene Cedillo CREATININEon 03-27-2022 Creatinine [Mass/Vol] 0.75 mg/dL Normal 0.55-1.02 [facility] Comment on above: Performed By: #### C K, CRP #### [facility] [address] [place] [address] Dr. Irene Cedillo EGFR-AF BOTSWANAN >60 Normal >=60 [facility] Comment on above: Performed By: #### C K, CRP #### [facility] [address] [place] [address] Dr. Irene Cedillo EGFR-NON AF BOTSWANAN >60 Normal >=60 [facility] Comment on above: Performed By: #### C K, CRP #### [facility] [address] [place] [address] ABD/PELV W CONon [...] and/or use of iterative reconstruction technique. 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 Liver/Biliary System: [...] by: CIELO GARCIA Date: 2022-03-27 21:37 Normal [facility] POINT OF CARE GLUCOSEon 03-10 Glucose [Mass/Vol] 173 mg/dL Critically high 74-106 [facility] Comment on above: Performed By: #### C CPAB #### [facility] [address] [address] [address] Irene Cedillo FSHon 02-25-2022 FSH 46.6 mIU/mL Normal [facility] Comment on above: Result Comment: Adul t Female: Follicular phase 3.5 - 12.5 Ovulation phase 4.7 - 21.5 Luteal phase 1.7 - 7.7 Postmenopausal 25.8 - 134.8 Performed By: #### C K, CRP #### [facility] [address] [address] [address] Irene Cedillo LUTEINIZING HORMONE (LH)on 0 6-18-2022 LH 33.3 mIU/mL Normal [facility] Comment on above: Result Comment: Adul t Female: Follicular phase 2.4 - 12.6 Ovulation phase 14.0 - 95.6 Luteal phase 1.0 - 11.4 Postmenopausal 7.7 - 58.5 Performed By: #### H PYLORI #### [facility] [address] [place] [address] Dr. Irene Cedillo TESTOSTERONE, TOTALon 2021 Testosterone [Mass/Vol] 6 ng/dL Normal 3-67 [facility] Comment on above: Performed By: #### H PYLORI #### [facility] [address] [place] [address] Dr. Irene Cedillo THYROID PEROXIDASE ABon 02-08 Thyroid Peroxidase (TPO) Ab <8 Normal 0-34 [facility] Comment on above: Performed By: #### C K, CRP #### [facility] [address] [place] [address] Dr. Irene Cedillo FREE T3on 02-24-2022 FREE T3 2.47 pg/mlL Normal 2.18-3.98 [facility] Comment on above: Performed By: #### S EDR #### [facility] [address] [place] [address] Dr. Irene Cedillo LYME DISEASE AB EIA W REFLEX on 01-31-2022 Lyme Total Antibody,EIA Negative Normal Negative [facility] Comment on above: Result Comment: Lyme Antibody Negative No laboratory evidence of infection with B. burgdorferi (Lyme disease). Negative results may occur in patients recently infected (greater than or equal to 14 days) with B. burgdorferi. If recent infection is suspected, repeat testing on a new sample collected in 7 to 14 days is recommended. Performed By: #### T SH #### [facility] [address] [place] [address] Dr. Irene Cedillo CPKon 01-30-2022 CK [Catalytic activity/Vol] 76 U/L Normal 26-192 [facility] Comment on above: Performed By: #### C K, CRP #### [facility] [address] [place] [address] Dr. Irene Cedillo CRPon 01-30-2022 CRP 0.4 mg/dL Normal <=1.0 [facility] Comment on above: Performed By: #### C K, CRP #### [facility] [address] [address] [address] Irene Cedillo SED RATE WESTERGRENon 2021 SED RATE 8 mm/hr Normal <=30 [facility] Comment on above: Performed By: #### H PYLORI #### [facility] [address] [address] [address] Irene Cedillo C REACTIVE PROTEINon 021 CRP [Mass/Vol] 9.3 mg/L High 0.0-7.0 [facility] Comment on above: Performed By: #### 6 [id number] #### [address] KNEE LEFT 3 VWSon 09-06-2021 KNEE LEFT 3 VWS [facility] Department of Radiology [address] [place] [id number] ======== Patient Name: EMILY MACIAS : 1960 Sex: F Age: Race: White Pt. Location: Patient Status: Ordered Date: 09/06/2021 1:35:00 PM Completed Date: 09/06/2021 01:56 PM Requesting Provider: KIARA WILLETT Attending Provider: Report Copy To: Signs & Symptoms: M25.562 Pain in left knee I10 History: [place] Comments: Evaluate Exam: KNEE LEFT 3 VWS [...] above Electronically signed: Olga Murray. Transcribed by: [email or web address], User Resident: Electronically Signed by: OLGA MURRAY @ 09/06/2021 03:09 PM Normal [facility] Comment on above: Order Comment: Evalu ate KNEE RIGHT 3 [facility] KNEE RIGHT 3 [facility] Department of Radiology [address] [place] [id number] ======== Patient Name: EMILY MACIAS : 1960 Sex: F Age: Race: White Pt. Location: Patient Status: Ordered Date: 09/06/2021 1:35:00 PM Completed Date: 09/06/2021 01:56 PM Requesting Provider: KIARA WILLETT Attending Provider: Report Copy To: Signs & Symptoms: M25.561 Pain in right knee I10 History: [place] Comments: Evaluate Exam: KNEE RIGHT 3 [facility] ======== KNEE RIGHT 3 VWS 09/06/2021 1:56 [...] above Electronically signed: Olga Murray. Transcribed by: [email or web address], User Resident: Electronically Signed by: OLGA MURRAY @ 09/06/2021 03:08 PM Normal [facility] Comment on above: Order Comment: Evalu ate SEDIMENTATION RATEon 09-06- 021 SED RATE 7 mm/hr Normal 0-20 [facility] Comment on above: Performed By: #### [id number] #### [facility] [address] Vital Signs Date Time Vital Sign Value Performing Clinician Facility 12-10-2024 08:55-0400 Body height 165.1 cm Netta Montoya MD Work Phone: [facility] 12-10-2024 08:55-0400 Body mass index (BMI) [Ratio] 32.5 kg/m2 Netta Montoya MD Work Phone: [facility] 12-10-2024 08:55-0400 Body temperature 98.2 [degF] Netta Montoya MD Work Phone: [facility] 12-10-2024 08:55-0400 Body weight 88.9 kg Netta Montoya MD Work Phone: [facility] 12-10-2024 08:55-0400 Diastolic blood pressure 68 mm[Hg] Netta Montoya MD Work Phone: [facility] 12-10-2024 08:55-0400 Heart rate 88 /min Netta Montoya MD Work Phone: [facility] 12-10-2024 08:55-0400 Systolic blood pressure 103 mm[Hg] Netta Montoya MD Work Phone: [facility] 10-21-2024 09:08-0500 Body height 165.1 cm Netta Montoya MD Work Phone: [facility] 10-21-2024 09:08-0500 Body mass index (BMI) [Ratio] 31.9 kg/m2 Netta Montoya MD Work Phone: [facility] 10-21-2024 09:08-0500 Body weight 87.08 kg Netta Montoya MD Work Phone: [facility] 10-21-2024 09:08-0500 Diastolic blood pressure 64 mm[Hg] Netta Montoya MD Work Phone: [facility] 10-21-2024 09:08-0500 Heart rate 90 /min Netta Montoya MD Work Phone: [facility] 10-21-2024 09:08-0500 SaO2% (BldA) [Mass fraction] 97 % Netta Montoya MD Work Phone: [facility] 10-21-2024 09:08-0500 Systolic blood pressure 107 mm[Hg] Netta Montoya MD Work Phone: [facility] 09-30-2024 13:53-0500 Body height 160.02 cm Netta Montoya MD Work Phone: [facility] 09-30-2024 13:53-0500 Body mass index (BMI) [Ratio] 33.1 kg/m2 Netta Montoya MD Work Phone: [facility] 09-30-2024 13:53-0500 Body weight 84.82 kg Netta Montoya MD Work Phone: [facility] 09-30-2024 13:53-0500 Diastolic blood pressure 70 mm[Hg] Netta Montoya MD Work Phone: [facility] 09-30-2024 13:53-0500 Heart rate 85 /min Netta Montoya MD Work Phone: [facility] 09-30-2024 13:53-0500 Systolic blood pressure 101 mm[Hg] Netta Montoya MD Work Phone: [facility] 08-29-2024 11:03-0500 Diastolic blood pressure 68 mm[Hg] Netta Montoya MD Work Phone: [facility] 08-29-2024 11:03-0500 Heart rate 89 /min Netta Montoya MD Work Phone: [facility] 08-29-2024 11:03-0500 Systolic blood pressure 115 mm[Hg] Netta Montoya MD Work Phone: [facility] 07-29-2024 09:33-0500 Body height 160.02 cm Netta Montoya MD Work Phone: [facility] 07-29-2024 09:33-0500 Body mass index (BMI) [Ratio] 34.3 kg/m2 Netta Montoya MD Work Phone: [facility] 07-29-2024 09:33-0500 Body weight 87.99 kg Netta Montoya MD Work Phone: [facility] 07-29-2024 09:33-0500 Diastolic blood pressure 69 mm[Hg] Netta oMntoya MD Work Phone: [facility] 07-29-2024 09:33-0500 Heart rate 75 /min Netta Montoya MD Work Phone: [facility] 07-29-2024 09:33-0500 Systolic blood pressure 101 mm[Hg] Netta Montoya MD Work Phone: [facility] 07-17-2024 13:59-0500 Body height 160.02 cm Netta Montoya MD Work Phone: [facility] 07-17-2024 13:59-0500 Body mass index (BMI) [Ratio] 34.5 kg/m2 Netta Montoya MD Work Phone: [facility] 07-17-2024 13:59-0500 Body weight 88.45 kg Netta Montoya MD Work Phone: [facility] 07-17-2024 13:59-0500 Diastolic blood pressure 69 mm[Hg] Netta Montoya MD Work Phone: [facility] 07-17-2024 13:59-0500 Heart rate 83 /min Netta Montoya MD Work Phone: [facility] 07-17-2024 13:59-0500 SaO2% (BldA) [Mass fraction] 93 % Netta Montoya MD Work Phone: [facility] 07-17-2024 13:59-0500 Systolic blood pressure 117 mm[Hg] Netta Montoya MD Work Phone: [facility] 02-21-2024 13:19-0400 Body height 165.1 cm Sagar Krause MD Work Phone: [facility] 02-21-2024 13:19-0400 Body mass index (BMI) [Ratio] 31.78 kg/m2 Sagar Krause MD Work Phone: [facility] 02-21-2024 13:19-0400 Body temperature 97.11 [degF] Sagar Krause MD Work Phone: [facility] 02-21-2024 13:19-0400 Body weight 86.64 kg Sagar Krause MD Work Phone: [facility] 12-26-2023 13:54-0400 Body height 165.1 cm Radha Asif PLANT TECHNICIAN-LOCKSTITCH LINING SETTER Work Phone: [facility] 12-26-2023 13:54-0400 Body mass index (BMI) [Ratio] 33.45 kg/m2 Radha Brandee PLANT TECHNICIAN-LOCKSTITCH LINING SETTER Work Phone: [facility] 12-26-2023 13:54-0400 Body weight 91.17 kg Radha Asif PLANT TECHNICIAN-LOCKSTITCH LINING SETTER Work Phone: [employer] 08-13-2023 09:30-0500 Body height 161.93 cm Netta Montoya Other [employer] Other 08-13-2023 09:30-0500 Body mass index (BMI) [Ratio] 34.46 kg/m2 Netta Montoya Other [employer] Other 08-13-2023 09:30-0500 Body weight 90.36 kg Netta Montoya Other [employer] Other 08-13-2023 09:30-0500 Diastolic blood pressure 70 mm[Hg] Netta Montoya Other [employer] Other 08-13-2023 09:30-0500 Systolic blood pressure 110 mm[Hg] Netta Montoya Other [employer] Other 08-09-2023 14:48-0500 Body height 165.1 cm Sagar Krause MD Work Phone: [facility] 08-09-2023 14:48-0500 Body mass index (BMI) [Ratio] 33.58 kg/m2 Sagar Krause MD Work Phone: [employer] 08-09-2023 14:48-0500 Body weight 91.54 kg Sagar Krause MD Work Phone: [facility] 04-24-2023 13:30-0400 Body height 161.93 cm Siva Ron Other [employer] Other 04-24-2023 13:30-0400 Body mass index (BMI) [Ratio] 32.52 kg/m2 Siva Ron Other [employer] Other 04-24-2023 13:30-0400 Body weight 85.28 kg Siva Ron Other [employer] Other 04-24-2023 13:30-0400 Diastolic blood pressure 70 mm[Hg] Siva Ron Other [employer] Other 04-24-2023 13:30-0400 Systolic blood pressure 126 mm[Hg] Siva Ron Other [employer] Other 02-22-2023 15:15-0400 Body height 165.1 cm NorseNRed Rover Work Phone: [facility] 02-22-2023 15:15-0400 Body mass index (BMI) [Ratio] 31.51 kg/m2 GENWI PLANT TECHNICIANRed Rover Work Phone: [employer] 02-22-2023 15:15-0400 Body temperature 98.01 [degF] NorseNRed Rover Work Phone: [facility] 02-22-2023 15:15-0400 Body weight 85.9 kg [employer]se[employer]ed Rover Work Phone: [facility] 01-09-2023 09:30-0400 Body height 161.93 cm Netta Montoya Other [employer] Other 01-09-2023 09:30-0400 Body mass index (BMI) [Ratio] 33.04 kg/m2 Netta Montoya Other [employer] Other 01-09-2023 09:30-0400 Body weight 86.64 kg Netta Montoya Other [employer] Other 01-09-2023 09:30-0400 Diastolic blood pressure 60 mm[Hg] Netta Montoya Other [employer] Other 01-09-2023 09:30-0400 SaO2% (BldA) [Mass fraction] 97 % Netta Montoya Other [employer] Other 01-09-2023 09:30-0400 Systolic blood pressure 112 mm[Hg] Netta Montoya Other [employer] Other 01-01-2023 15:45-0400 Body height 161.93 cm Siva Dayormack Other [employer] Other 01-01-2023 15:45-0400 Body mass index (BMI) [Ratio] 34.08 kg/m2 Siva Ariadne Other [employer] Other 01-01-2023 15:45-0400 Body weight 89.36 kg Siva Ariadne Other [employer] Other 01-01-2023 15:45-0400 Diastolic blood pressure 71 mm[Hg] Siva Ariadne Other [employer] Other 01-01-2023 15:45-0400 Systolic blood pressure 116 mm[Hg] Siva Ariadne Other [employer] Other 11-30-2022 13:58-0400 Body height 165.1 cm Sagar Krause MD Work Phone: [facility] 11-30-2022 13:58-0400 Body mass index (BMI) [Ratio] 32.12 kg/m2 Sagar Krause MD Work Phone: [facility] 11-30-2022 13:58-0400 Body weight 87.54 kg Sagar Krause MD Work Phone: [facility] 10-10-2022 14:30-0500 Body height 161.93 cm Netta Montoya Other [employer] Other 10-10-2022 14:30-0500 Body mass index (BMI) [Ratio] 34.08 kg/m2 Netta Montoya Other [employer] Other 10-10-2022 14:30-0500 Body weight 89.36 kg Netta Montoya Other [employer] Other 10-10-2022 14:30-0500 Diastolic blood pressure 70 mm[Hg] Netta Montoya Other [employer] Other 10-10-2022 14:30-0500 Systolic blood pressure 108 mm[Hg] Netta Montoya Other [employer] Other 09-13-2022 16:30-0500 Body height 161.93 cm Netta Montoya Other [employer] Other 09-13-2022 16:30-0500 Body mass index (BMI) [Ratio] 33.21 kg/m2 Netta Montoya Other [employer] Other 09-13-2022 16:30-0500 Body weight 87.09 kg Netta Montoya Other [employer] Other 09-13-2022 16:30-0500 Diastolic blood pressure 62 mm[Hg] Netta Montoya Other [employer] Other 09-13-2022 16:30-0500 SaO2% (BldA) [Mass fraction] 97 % Netta Montoya Other [employer] Other 09-13-2022 16:30-0500 Systolic blood pressure 108 mm[Hg] Netta Montoya Other [employer] Other Encounters Encounter Date Encounter Type Care Provider Facility Start: 12-10-2024 End: 12-10-2024 ambulatory Netta Montoya MD Work Phone: [facility] Work Phone: Start: 12-10-2024 End: 12-10-2024 Patient encounter procedure Netta Montoya MD Work Phone: [facility] Work Phone: Start: 11-10-2024 Non-patient / Non-visit Netta Montoya MD Work Phone: [facility] Work Phone: Start: 10-21-2024 End: 10-21-2024 ambulatory Netta Montoya MD Work Phone: [facility] Work Phone: Start: 10-21-2024 End: 10-21-2024 Patient encounter procedure Netta Montoya MD Work Phone: [facility] Work Phone: Start: 09-30-2024 End: 09-30-2024 Patient encounter procedure Netta Montoya MD Work Phone: [facility] Work Phone: Start: 09-30-2024 End: 09-30-2024 ambulatory Netta Montoya MD Work Phone: [facility] Work Phone: Start: 09-30-2024 End: 09-30-2024 Patient encounter procedure Netta Montoya MD Work Phone: [facility] Work Phone: Start: 09-19-2024 End: 09-19-2024 ambulatory HANY DARLENE [facility] Start: 09-16-2024 ambulatory NARENDRANATH LAKSHMIPATHY [facility] Start: 09-08-2024 End: 09-08-2024 ambulatory Chandra Edouard MD Facility:[facility] Start: 08-29-2024 End: 08-29-2024 Patient encounter procedure Netta Montoya MD Work Phone: [facility] Work Phone: Start: 08-29-2024 End: 08-29-2024 ambulatory Netta Montoya Facility:[facility] Start: 08-29-2024 End: 08-29-2024 Patient encounter procedure Netta Montoya MD Work Phone: [facility] Physician [facility] Work Phone: Start: 08-18-2024 End: 08-18-2024 ambulatory Netta Montoya MD Facility:[facility] Start: 07-30-2024 ambulatory [facility] Start: 07-29-2024 End: 07-29-2024 Patient encounter procedure Netta Montoya MD Work Phone: [facility] Work Phone: Start: 07-17-2024 End: 07-17-2024 Patient encounter procedure Netta Montoya MD Work Phone: [facility] Work Phone: Start: 05-13-2024 ambulatory [facility] Start: 04-14-2024 End: 05-11-2024 ambulatory [facility] Start: 02-21-2024 End: 02-21-2024 Office outpatient visit 25 minutes Sagar Krause MD Work Phone: [facility] Comment on above: Hx of total knee art hroplasty, left (Primary Dx); Pain in prosthetic joint, subsequent encounter Start: 02-21-2024 End: 02-21-2024 Subsequent hospital visit by physician Sagar Krause MD Work Phone: [facility] Start: 02-21-2024 ambulatory NETTA MONTOYA [facility] Start: 02-11-2024 ambulatory Netta Montoya MD Facility:[facility] Start: 01-18-2024 End: 01-18-2024 ambulatory Netta Montoya MD Facility:[facility] Start: 01-09-2024 End: 02-09-2024 ambulatory [facility] Start: 12-26-2023 End: 01-09-2024 ambulatory [facility] Start: 12-26-2023 End: 12-26-2023 Office outpatient visit 15 minutes Radha Asif PLANT TECHNICIAN-LOCKSTITCH LINING SETTER Work Phone: [facility] Comment on above: Hx of total knee art hroplasty, left (Primary Dx) Start: 12-26-2023 End: 12-26-2023 Subsequent hospital visit by physician Radha Asif PLANT TECHNICIAN-LOCKSTITCH LINING SETTER Work Phone: [facility] Start: 12-26-2023 ambulatory [facility] Start: 12-20-2023 End: 12-20-2023 ambulatory Netta Montoya MD Facility:[facility] Start: 12-20-2023 End: 12-20-2023 ambulatory Netta Montoya MD [facility] Start: 10-22-2023 End: 10-22-2023 ambulatory Siva Ron Other [employer] Other Start: 10-22-2023 Telephone encounter Siva Huggins [facility] Start: 08-13-2023 End: 08-13-2023 ambulatory Netta Montoya Other [employer] Other Start: 08-13-2023 Office outpatient visit 15 minutes Netta Montoya [facility] Start: 08-09-2023 End: 08-09-2023 Office outpatient visit 15 minutes Sagar Krause MD Work Phone: [facility] Comment on above: Post-op pain (Primar y Dx); Pain in prosthetic joint, subsequent encounter Start: 08-09-2023 End: 08-09-2023 Subsequent hospital visit by physician Sagar Krause MD Work Phone: [facility] Start: 08-09-2023 ambulatory NETTA MONTOYA [facility] Start: 06-19-2023 End: 06-19-2023 ambulatory MD Netta Montoya Work Phone: [facility] Work Phone: Start: 06-19-2023 End: 06-19-2023 Patient encounter procedure MD Netta Montoya Work Phone: [facility] [place] Work Phone: Start: 05-22-2023 End: 05-22-2023 ambulatory Siva Ron Other [employer] Other Start: 05-22-2023 Telephone encounter Siva sheriff [employer] Start: 05-09-2023 End: 05-09-2023 ambulatory MD Netta Montoya Work Phone: [facility] Work Phone: Start: 05-09-2023 End: 05-09-2023 Patient encounter procedure MD Netta Montoya Work Phone: [facility] Work Phone: Start: 04-26-2023 End: 04-26-2023 ambulatory Netta Montoya Other [employer] Other Start: 04-26-2023 Telephone encounter Netta BAUMAN [facility] Start: 04-24-2023 End: 04-24-2023 ambulatory Siva Ron Other [employer] Other Start: 04-24-2023 Office outpatient visit 25 minutes Siva Ron [facility] Start: 04-23-2023 End: 04-23-2023 ambulatory Netta Montoya Other [employer] Other Start: 04-23-2023 Telephone encounter Netta Montoya [facility] Start: 04-20-2023 End: 04-20-2023 ambulatory Netta Montoya Other [employer] Other Start: 04-20-2023 Telephone encounter Netta Montoya [facility] Start: 03-15-2023 End: 03-15-2023 ambulatory Siva Ron Other [employer] Other Start: 03-15-2023 Telephone encounter Siva sheriff [facility] Start: 02-22-2023 End: 02-22-2023 Postop follow up visit related to original px Radha Asif PLANT TECHNICIAN-LOCKSTITCH LINING SETTER Work Phone: [facility] Comment on above: Hx of total knee art hroplasty, left (Primary Dx) Start: 02-19-2023 End: 02-19-2023 ambulatory Netta Montoya Other [employer] Other Start: 02-19-2023 Telephone encounter Netta Montoya [facility] Start: 01-18-2023 End: 01-19-[address] Erin RON Facility:[facility] Start: 01-17-2023 End: 01-17-2023 ambulatory Siva Ron Other [employer] Other Start: 01-17-2023 Telephone encounter Siva sheriff [facility] Start: 01-16-2023 End: 01-16-2023 ambulatory Siva Ron Other [employer] Other Start: 01-16-2023 Telephone encounter Siva sheriff [facility] Start: 01-09-2023 Encounter for other preprocedural examination Netta Montoya [facility] Start: 01-09-2023 Office outpatient visit 15 minutes Netta Montoya [facility] Start: 01-09-2023 Telephone encounter Netta Montoya [facility] Start: 01-09-2023 End: 01-10-[address] Erin RON [facility] [employer] Other Start: 01-08-2023 End: 01-08-[address] Erin RON Facility:[facility] Start: 01-02-2023 End: 01-02-2023 ambulatory Siva Ron Other [employer] Other Start: 01-02-2023 Telephone encounter Siav sheriff [employer] Start: 01-01-2023 End: 01-01-2023 ambulatory Siva Ron Other [employer] Other Start: 01-01-2023 Office outpatient ne w 45 minutes Siva Ron [facility] Start: 11-30-2022 End: 11-30-2022 Office outpatient new 60 minutes Sagar Krause MD Work Phone: [facility] Comment on above: Pain in prosthetic j oint, sequela (Primary Dx) Start: 11-30-2022 End: 11-30-2022 Subsequent hospital visit by physician Sagar Krause MD Work Phone: [facility] Start: 11-28-2022 End: 11-29-[address] CARA LEO Facility:[facility] Start: 11-09-2022 End: 11-10-2022 ambulatory BRI BERGER Facility:[facility] Start: 10-18-2022 End: 10-19-[address] CARA LEO Facility:[facility] Start: 10-10-2022 End: 10-10-2022 ambulatory Netta Montoya Other [employer] Other Start: 10-10-2022 Office outpatient visit 15 minutes Netta Montoya [facility] Start: 09-22-2022 End: 09-22-2022 ambulatory Netta Montoya Other [employer] Other Start: 09-22-2022 Telephone encounter Netta Montoya [facility] Start: 09-13-2022 End: 09-14-2022 ambulatory JANETT BALBUENA [facility] [employer] Other Start: 09-13-2022 Office outpatient visit 15 minutes Netta Montoya [facility] Start: 08-23-2022 End: 08-24-2022 ambulatory TONY DICKINSON Facility:[facility] Start: 08-22-2022 End: 08-23-2022 ambulatory JANETT BALBUENA Facility:[facility] Start: 08-08-2022 End: 08-09-[address] PELON ALEXANDRE Facility:[facility] Start: 08-01-2022 Adult health examination Netta Montoya Other [employer] Other Start: 08-01-2022 Gynecological examination normal Netta Montoya Other [employer] Other Start: 08-01-2022 Pre-procedure evaluation check Netta Montoya Other [employer] Other Start: 07-11-2022 End: 07-12-[address] NETTA MONTOYA Facility:[facility] Start: 07-05-2022 End: 07-06-2022 ambulatory BASILIO LANDEROS Facility:[facility] Start: 04-08-2022 End: 04-09-[address] DOCTOR DESHPANDE Facility:[facility] Start: 04-05-2022 ambulatory SABINA DELGADILLO . Facility:[facility] Start: 03-28-2022 Encounter for other preprocedural examination DR DOCTOR DESHPANDE [facility] Start: 03-27-2022 End: 03-28-[address] DOCTOR [...] A g [Presence] in Stool by Immunoassay [facility] Start: 09-30-2024 Giardia lamblia Ag [Presence] in Stool by Immunoassay [facility] Start: 05-11-2024 Influenza vaccination INFLUENZ A VACCINE (Season Ended) [facility] Start: 02-21-2024 End: 02-20-2025 REQUEST FOR MISC LAB SENDOUT REQUEST FOR MISC LAB SENDOUT Lab Routine Pain in prosthetic joint, subsequent encounter Expected: 02/21/2024, Expires: 02/20/2025 [facility] Comment on above: Expected: 02/21/2024 , Expires: 02/20/2025 Start: 01-30-2024 End: 01-30-2024 Patient encounter procedure 01/30/2024 1:00 PM EDT Office Visit [facility] [address] [place] [id number] Radha Asif, PLANT TECHNICIAN-LOCKSTITCH LINING SETTER [address] [place] [address] [facility] Start: 08-09-2023 End: 09-06-2023 C-reactive protein C REACTIVE PROTEIN Lab Routine Pain in prosthetic joint, subsequent encounter Expected: 08/09/2023, Expires: 09/06/2023 [facility] Comment on above: Expected: 08/09/2023 , Expires: 09/06/2023 Start: 08-09-2023 End: 09-06-2023 SEDIMENTATION RATE, AUTOMATED SEDIMENTATION RATE, AUTOMATED Lab Routine Pain in prosthetic joint, subsequent encounter Expected: 08/09/2023 (Approximate), Expires: 09/06/2023 [facility] Comment on above: Expected: 08/09/2023 (Approximate), Expires: 09/06/2023 Start: 07-06-2023 Hemoglobin A1c measurement HBA1C TEST [facility] Start: 06-06-2023 End: 06-06-2023 Patient encounter procedure 06/06/2023 1:10 PM EDT Office Visit [facility] [address] [place] [address] Sagar Krause MD [address] [place] [address] [facility] Start: 05-11-2023 COVID-19 VACCINE ( season) COVID-19 VACCINE ( season) [facility] Start: 05-11-2023 Influenza vaccination A [facility] Start: 05-09-2023 [facility] Start: 01-04-2023 End: 01-04-2023 ambulatory 01/04/2023 Pre-Operative Nurse Assessment Internal Medicine [facility] Start: 05-11-2022 Influenza vaccination INFLUENZA VACC INE (#1) [facility] Start: 12-15-2009 Zoster vaccine hzv l ag for subcutaneous use ZOSTER (SHINGLES) VACCINE (1 of 2) [facility] Start: 12-15-2004 Screening for malign ant neoplasm of colon COLORECTAL CANCER SCREENING DISCUSSION [facility] Start: 1999 Lipid panel LIPID SCREENING [facility] Start: 1999 Screening for malign ant neoplasm of breast MAMMOGRAM SCREENING DISCUSSION [facility] Start: 12-15-1980 Screening for malign ant neoplasm of cervix CERVICAL CANCER SCREENING DISCUSSION [facility] Start: 12-15-1978 Third diphtheria, te tanus and acellular pertussis (DTaP) vaccination TDAP (ADULT) [facility] Start: 12-15-1974 HIV screening HIV SCREENING DISCUSSION [facility] Start: 06-16-1960 COVID-19 VACCINE (#1) COVID-19 VACCI NE (#1) [facility] Start: 1959 Diabetic foot examination DIABETIC F OOT EXAM [facility] Start: 1959 Glaucoma screening EYE EXAM [facility] Start: 1959 Hepatitis C screening HEPATITI S C VIRUS SCREENING [facility] Start: 1959 Lipid panel LIPIDS [facility] Start: 1959 Tetanus vaccination TETANUS [facility] Start: 1959 Thyroid stimulating hormone measurement TSH [facility] Start: 1959 Urine screening for protein URINE MICROALBUMIN TEST [facility] Comprehensive metabo lic 2000 panel - Serum or Plasma [facility] Radiography for bone length studies XR BONE LENGTH STUDY Imaging Routine Pain in prosthetic joint, sequela 11/30/2022 1:41 PM EDT [facility] XR Knee - left 3 Views XR KNEE L EFT 3 VIEWS Imaging Routine Pain in prosthetic joint, sequela 11/30/2022 1:41 PM [facility] Work Phone: XR Knee - left 3 Views XR KNEE L EFT 3 VIEWS Imaging Routine Hx of total knee arthroplasty, left 02/22/2023 2:50 PM EDT [facility] XR Knee - left 3 Views XR KNEE L EFT 3 VIEWS Imaging Routine Post-op pain 08/09/2023 2:03 PM EST [facility] XR Knee - left 3 Views XR KNEE L EFT 3 VIEWS Imaging Routine Hx of total knee arthroplasty, left 12/26/2023 1:43 PM EDT [facility] XR Knee - left 3 Views XR KNEE L EFT 3 VIEWS Imaging Routine Hx of total knee arthroplasty, left 02/21/2024 1:11 PM EDT [facility] Payers Date Payer Category Payer Private Health Insurance 2021 Medicare [place]IC[place] [employer] MEDIC[place] [employer] HMO [id number] 2021-Present [address] [place] [address] [id number] 1959 Unknown [id number] 2.16.840.1.330191.3.579.2.5 93 1959 Unknown [id number] 2.16.840.1.345878.3.579.2.5 93 1959 Unknown [id number] 2.16.840.1.002701.3.579.2.5 93 1959 Unknown [id number] 2.16.840.1.466013.3.579.2.5 93 1959 Unknown [id number] 2.16.840.1.926881.3.579.2.5 93 1959 Unknown [id number] 2.16.840.1.059831.3.579.2.5 93 1959 Unknown [id number] 2.16.840.1.991742.3.579.2.5 93 1959 Unknown [id number] 2.16.840.1.741465.3.579.2.5 93 1959 Unknown [id number] 2.16.840.1.024358.3.579.2.5 93 1959 Unknown [id number] 2.16.840.1.514941.3.579.2.5 93 1959 Unknown [id number] 2.16.840.1.059478.3.579.2.5 93 1959 Unknown [id number] 2.16.840.1.564097.3.579.2.5 93 1959 Unknown [id number] 2.16.840.1.135321.3.579.2.5 93 1959 Unknown [id number] 2.16.840.1.142257.3.579.2.5 93 1959 Unknown [id number] 2.16.840.1.658516.3.579.2.5 93 1959 Unknown [id number] 2.16.840.1.020413.3.579.2.5 93 1959 Unknown [id number] 2.16.840.1.804960.3.579.2.5 93 1959 Unknown [id number] 2.16.840.1.396917.3.579.2.5 93 1959 Unknown [id number] 2.16.840.1.664808.3.579.2.5 93 1959 Unknown [id number] 2.16.840.1.915728.3.579.2.9 83 1959 Unknown [id number] 2.16.840.1.756693.3.579.2.9 83 1959 Unknown [id number] 2.16.840.1.537693.3.579.2.9 83 1959 Unknown [id number] 2.16.840.1.661925.3.579.2.9 83 1959 Unknown [id number] 2.16.840.1.710425.3.579.2.9 83 1959 Unknown [id number] 2.16.840.1.021768.3.579.2.9 83 1959 Unknown [id number] 2.16.840.1.101725.3.579.2.1 286 1959 Unknown [id number] 2.16.840.1.090784.3.579.2.1 286 1959 Unknown [id number] 2.16.840.1.203279.3.579.2.1 286 1959 Unknown [id number] 2.16.840.1.877603.3.579.2.1 286 1959 Unknown [id number] 2.16.840.1.811036.3.579.2.1 286 1959 Unknown [id number] 2.16.840.1.706291.3.579.2.1 286 1959 Unknown [id number] 2.16.840.1.026879.3.579.2.1 96 1959 Unknown [id number] 2.16.840.1.251521.3.579.2.1 96 1959 Unknown [id number] 2.16.840.1.545830.3.579.2.1 96 1959 Unknown [id number] 2.16.840.1.797941.3.579.2.1 96 1959 Unknown [id number] 2.16.840.1.404920.3.579.2.1 96 1959 Unknown [id number] 2.16.840.1.168954.3.579.2.1 96 1959 Unknown [id number] 2.16.840.1.967300.3.579.2.1 96 1959 Medicare [id number] 2.16.840.1.044776.19 Unknown [facility] [id number] Social History Date Type Detail Facility Unknown if ever smoked [employer] Other Start: 02-22-2023 End: 12-26-2023 Sex Assigned At [employer] Other Start: 11-30-2022 End: 07-25-2024 Tobacco smoking status MTIS Never smoked tobacco [facility] Start: 11-30-2022 Tobacco use and exposure Smokeless tobacco non-user [facility] Start: 11-30-2022 End: 02-21-2024 Alcohol intake Ex-drinker (finding) [facility] Start: 1960 Sex Assigned At Not on file [facility] Start: 02-22-2023 End: 12-26-2023 History of Social function [facility] Start: 01-19-2023 End: 01-29-2023 Exposure to SARS-CoV-2 (event) Not sure [facility] Start: 1960 Sex Assigned At Female F [facility] Start: 10-01-2024 Sex Patient sex un known (finding) [facility] Start: 10-21-2024 End: 12-10-2024 Sex Female (finding) [facility] Medical Equipment Procedure Code Equipment Code Equipment Origin al Text Equipment Identifier Dates One Touch Ultra Test Strips Insert - Knee - [id number] Start: 01-29-2023 Patella - Knee - [id number] Start: 01-29-2023 Revision Pressfi t Stem 12mmx 60 [id number] Start: 01-29-2023 Revision Tibial Base Sz 2 [id number] Start: 01-29-2023 Rev Offset Stem 2mm [id number] t: 01-29-2023 Rev Distal Femor al Augment Sz 5 4mm [id number] Start: 01-29-2023 Rev Crs Femoral Sz 5 Left [id number] Start: 01-29-2023 Palacos R 1 X 40 Us - [id number] Start: 01-29-2023 Palacos R & G Smooth ne Cement High-Viscosity With Gentamicin - [id number] Start: 01-29-2023 Blood Sugar Diagnostic (Onetouch [...] Desired Activity /State Clinical Notes 03-08-2022 to 09-30-2024 Note Date & Type Note Facility 09-30-2024 Evaluation note Diagnosis Onset Date Resolution Abdominal pain acute September 302024 1:49pm Bloating acute September 30, 2024 1:49pm GERD (gastroesophageal reflux disease) acute September 30 1:49pm Irritable bowel syndrome with constipation and diarrhea acute September 30 1:49pm Nausea acute September 30, 2024 1:49pm Chronic insomnia acute October 21, 2024 8:57am Depression acute October 21, 2024 8:57am Hypnotic dependence acute 2024 8:57am Hypothyroidism acute October 112024 8:57am Intolerance to BiPAP/CPAP acute October 21 8:57am LUIS (obstructive sleep apnea) acute October 21 8:57am Restless leg syndrome acute Feb ruary 2024 8:57am Vitamin B12 deficiency acute Fe bruary 2024 8:57am Type 2 diabetes mellitus with hyperglycemia acute December 10 8:54am [facility] Work Phone: 1(821) 208-758711-19-2024 Evaluation note* Diagnosis Onset Date Resolution Status Admit Date Type 2 diabetes mellitus wit h hyperglycemia acute July 29, 9:30am Abdominal cramping acute Decemb er 2023 [...] syndrome wit h constipation and diarrhea acute Januar y 2025 1:49pm Nausea acute September 30, 2024 1:49pm Chronic insomnia acute October 21, 2024 8:57am Depression acute October 21, 2024 8:57am Excessive daytime sleepiness acute October 21, 2024 8:57am Hypnotic dependence acute Febru trent 2024 8:57am Hypothyroidism acute October 112024 8:57am Intolerance to BiPAP/CPAP acute October 21, 2024 8:57am LUIS (obstructive sleep apnea) acute October 21, 2024 8:57am Restless leg syndrome acute Feb ruary 2024 8:57am Vitamin B12 deficiency acute Fe bruary 2024 8:57am [facility] Work Phone: 1(750) 124-275511-07-2024 Evaluation note* Diagnosis Onset Date Resolution Status Admit Date Chronic insomnia acute July 17, 2024 1:45pm Depression acute July 17, 2024 1:45pm Excessive daytime sleepiness acute July 17, 2024 1:45pm Hypnotic dependence acute Novem 2023 1:45pm Hypothyroidism acute July 172023 1:45pm [...] syndrome wit h constipation and diarrhea acute 2024 1:49pm Nausea acute September 30, 2024 1:49pm [facility] Work Phone: 1(675) 825-464806-13-2024 History of Present illness Narrative* Sandra Canales - 02/21/2024 1:10 PM EDT Ortho Nurse - Established Patient Intake Room#: 2 Pt is here for left knee pain ( LTKA revision 01/30/24. Pt states that she is still having pain in her knee. Pain is 4-5. Pt did physical therapy, and took the medication but no relief. Pt would like to discuss options Date: 02/21/2024 1:17 PM Patient: Emily Macias MR#: [id number] : 1960 Age: 63 y.o. Referring Physician: Self, Self Insurance: Payor: MEDICARE [employer] HMO OR PPO / Plan: MEDICARE [employer] HMO / Product Type: *No Product type* [...] daily. 60 capsule 0 Cholecalciferol 250 MCG (09605 UT) capsule capsule Take by mouth daily. [...] DR tablet Take by mouth daily. Pancrelipase, Tct-Ivic-Gaqb, (CREON PO) Take 36,000 Units by mouth. [...] by Nasal route once for 1 dose. [place] into the nose as directed. Call 911. [...] 60 capsule, Rfl: 0 Cholecalciferol 250 MCG (27912 UT) capsule capsule, Take by mouth daily., [...] by mouth daily., Disp: , Rfl: Pancrelipase, Bsp-Xbdh-Bfdn, (CREON PO), Take 36,000 Units by mouth. [...] by Nasal route once for 1 dose. [place] into the nose as directed. Call 911. [...] and also reported she applied for financial report service sales agent for additional PT. Should she need additional [...] have reviewed the findings of the clinical senior support engineer and agree with their assessment. Ortho Nurse - Established Patient Intake Room#: 2 Pt is here for left knee pain ( LTKA revision 01/30/24. Pt states that she is still having pain in her knee. Pain is 4-5. Pt did physical therapy, and took the medication but no relief. Pt would like to discuss options Date: 02/21/2024 1:17 PM Patient: Emily Macias MR#: [id number] : 1960 Age: 63 y.o. Referring Physician: Self, Self Insurance: Payor: MEDICARE [employer] HMO OR PPO / Plan: MEDICARE [employer] [...] FUNDOPLICATION ENDOSCOPIC 2004 HYSTERECTOMY 2003 CHOLECYSTECTOMY LAPAROSCOPIC 1996 OTHER SURGICAL 1990 ruptured [...] daily. 60 capsule 0 Cholecalciferol 250 MCG (63319 UT) capsule capsule Take by mouth daily. [...] DR tablet Take by mouth daily. Pancrelipase, Ptb-Ropw-Mfrs, (CREON PO) Take 36,000 Units by mouth. [...] by Nasal route once for 1 dose. [place] into the nose as directed. Call 911. [...] 60 capsule, Rfl: 0 Cholecalciferol 250 MCG (40328 UT) capsule capsule, Take by mouth daily., [...] by mouth daily., Disp: , Rfl: Pancrelipase, Koj-Mhej-Ctbf, (CREON PO), Take 36,000 Units by mouth. [...] by Nasal route once for 1 dose. [place] into the nose as directed. Call 911. [...] zanaflex [tizanidine], and [facility]com[facility] of Present illness Narrative* Raven Lucian - 12/26/2023 2:00 PM EDT Ortho Nurse - Established Patient Intake Room#: 5 Date: 12/26/2023 1:55 PM Patient: Emily Macias MR#: [id number] : 1960 Age: 63 y.o. 1yr L TKA Pt stated her knee has been locking on her and has pain 5/10. Pt stated she is almost always a 4-5/10 on the pain scale. Referring Physician: Self, Self Insurance: Payor: MEDICARE [employer] HMO OR O / Plan: MEDICARE [employer] HMO / Product Type: *No Product type* [...] daily. 60 capsule 0 Cholecalciferol 250 MCG (16665 UT) capsule capsule Take by mouth daily. [...] DR tablet Take by mouth daily. Pancrelipase, Gwj-Jxip-Fdsa, (CREON PO) Take 36,000 Units by mouth. [...] by Nasal route once for 1 dose. [place] into the nose as directed. Call 911. [...] 60 capsule, Rfl: 0 Cholecalciferol 250 MCG (41389 UT) capsule capsule, Take by mouth daily., [...] by mouth daily., Disp: , Rfl: Pancrelipase, Zfp-Agib-Oskn, (CREON PO), Take 36,000 Units by mouth. [...] by Nasal route once for 1 dose. [place] into the nose as directed. Call 911. [...] zanaflex [tizanidine], and vancomycin. * Radha Asif APRN-LOCKSTITCH LINING SETTER - 12/26/2023 2:00 PM EDT SUBJECTIVE: Emily [...] She thinks she had that done at [facility]. We will try and obtain those [...] up with Dr. Krause for clinical examination. (DOC:[id number]) I have reviewed the findings of the clinical senior support engineer and agree with their assessment. Radha Asif APRN-KEIRA Ortho Nurse - Established Patient Intake Room#: 5 Date: 12/26/2023 1:55 PM Patient: Emily Macias MR#: [id number] : 1960 Age: 63 y.o. 1yr L [...] daily. 60 capsule 0 Cholecalciferol 250 MCG (72491 UT) capsule capsule Take by mouth daily. [...] DR tablet Take by mouth daily. Pancrelipase, Cla-Cuhn-Npze, (CREON PO) Take 36,000 Units by mouth. [...] by Nasal route once for 1 dose. Charlotte Hall into the nose as directed. Call 911. [...] 60 capsule, Rfl: 0 Cholecalciferol 250 MCG (54885 UT) capsule capsule, Take by mouth daily., [...] by mouth daily., Disp: , Rfl: Pancrelipase, Eup-Pyix-Gzac, (CREON PO), Take 36,000 Units by mouth. [...] by Nasal route once for 1 dose. [place] into the nose as directed. Call 911. [...] zanaflex [tizanidine], and vancomycin. documented in this [facility]12-04-2023 Evaluation note* Encounter Date Diagnosis Assessment Notes Treatment Notes Treatment Clinical Notes Aug, Piriformis syndrome, right (ICD-10 - G57.01) Pt declines PT at this time. Gave handouts for exercises and use flexeril qhs. Aug, Trochanteric bursitis, right hip (ICD-10 - M70.61) Pt declines PT. Muscle relaxer and handouts given. [facility] [employer] Other 11-30-2023 History of Present illness Narrative* [...] 08/09/2023 2:58 PM Patient: Emily Macias MR#: [id number] : 1960 Age: 62 y.o. Referring Physician: Sagar Krause MD Insurance: Payor: MEDICARE [employer] HMO OR PPO / Plan: MEDICARE [employer] HMO / Product Type: *No Product type* [...] DR tablet Take by mouth daily. Pancrelipase, Ifv-Wzxt-Zggc, (CREON PO) Take 36,000 Units by mouth. [...] taking: Reported on 08/09/2023) Cholecalciferol 250 MCG (67017 UT) capsule capsule Take by mouth daily. [...] by Nasal route once for 1 dose. [place] Hall into the nose as directed. Call 911. [...] have reviewed the findings of the clinical senior support engineer and agree with their assessment. Ortho Nurse [...] 08/09/2023 2:58 PM Patient: Emily Macias MR#: [id number] : 1960 Age: 62 y.o. Referring Physician: Sagar Krause MD Insurance: Payor: MEDICARE [employer] HMO OR PPO / Plan: MEDICARE AETNA [...] DR tablet Take by mouth daily. Pancrelipase, Icf-Dmxz-Umvl, (CREON PO) Take 36,000 Units by mouth. [...] taking: Reported on 08/09/2023) Cholecalciferol 250 MCG (32886 UT) capsule capsule Take by mouth daily. [...] by Nasal route once for 1 dose. [place] Hall into the nose as directed. Call 911. [...] zanaflex [tizanidine], and vancomycin. documented in this [facility]08-15[facility]20[facility] Evaluation note* Encounter Date Diagnosis Assessment Notes Treatment Notes Treatment Clinical Notes Apr, Abdominal cramping (ICD-10 - R10.9) Patient reports doing well Apr, Diverticulosis (ICD-10 - K57.90) Apr, Alternating constipation and diarrhea (ICD-10 - R19.8) Apr, Pancreatic atrophy (ICD-10 - K86.89) Apr, Fatty liver (ICD-10 - K76.0) [facility] [employer] Other 08-11-2023 Evaluation note* Encounter Date Diagnosis Assessment Notes Treatment Notes Treatment Clinical Notes Apr, Type 2 diabetes mellitus with hyperglycemia, without long-term current use of insulin (ICD-10 - E11.65) [facility] [employer] Other 06-15-2023 History of Present illness Narrative* [...] 02/22/2023 3:16 PM Patient: Emily Macias MR#: [id number] : 1960 Age: 62 y.o. Referring Physician: Radha Asif APRN-CNP Insurance: Payor: MEDICARE [employer] HMO OR PPO / Plan: MEDICARE [employer] HMO / Product Type: *No Product type* [...] daily. 84 capsule 0 Cholecalciferol 250 MCG (74644 UT) capsule capsule Take by mouth daily. [...] by Nasal route once for 1 dose. [place] into the nose as directed. Call 911. If no response in 2 minutes use a new nasal spray in other nostril. Repeat until help arrives. 1Each [address] Omep[address] tablet Take by mouth daily. oxyCODONE 5 MG tablet Take 1-2 tabs po q 4-6 hours prn pain. Wean as tolerated. 20 tablet 0 Pancrelipase, Cmm-Qgco-Eogj, (CREON PO) Take 36,000 Units by mouth. [...] 84 capsule, Rfl: 0 Cholecalciferol 250 MCG (90799 UT) capsule capsule, Take by mouth daily., [...] by Nasal route once for 1 dose. [place] into the nose as directed. Call 911. [...] tolerated., Disp: 20 tablet, Rfl: 0 Pancrelipase, Oez-Hbhl-Oqih, (CREON PO), Take 36,000 Units by mouth. [...] zanaflex [tizanidine], and vancomycin. * Radha Asif APRN-LOCKSTITCH LINING SETTER - 02/22/2023 3:00 PM EDT HPI: Emily [...] understanding. All pertinent portions of the clinical senior support engineer documentation was reviewed and agree. DANIELLE Gimenez I have reviewed the findings of the clinical senior support engineer and agree with their assessment. DANIELLE Gimenez Ortho Nurse - Established Patient Intake Room#: 5 Patient is S/P L knee medial/partial revision to TKA. Patient using walker today and penelope hose are in place. She states the worse pain is at HS while trying to sleep. Sitting pain 4/10 Walking pain is 5/10 Date: 02/22/2023 3:16 PM Patient: Emily Macias MR#: [id number] : 1960 Age: 62 y.o. Referring Physician: [...] daily. 84 capsule 0 Cholecalciferol 250 MCG (48919 UT) capsule capsule Take by mouth daily. [...] by Nasal route once for 1 dose. [place] Hall into the nose as directed. Call 911. If no response in 2 minutes use a new nasal spray in other nostril. Repeat until help arrives. 1Each [address] Omeprazole [address] tablet Take by mouth daily. oxyCODONE 5 MG tablet Take 1-2 tabs po q 4-6 hours prn pain. Wean as tolerated. 20 tablet 0 Pancrelipase, Wwu-Aads-Wwtx, (CREON PO) Take 36,000 Units by mouth. [...] 84 capsule, Rfl: 0 Cholecalciferol 250 MCG (57248 UT) capsule capsule, Take by mouth daily., [...] by Nasal route once for 1 dose. [place] into the nose as directed. Call 911. [...] tolerated., Disp: 20 tablet, Rfl: 0 Pancrelipase, Syd-Rfhl-Yemb, (CREON PO), Take 36,000 Units by mouth. [...] zanaflex [tizanidine], and [facility]com[facility]. [facility] Encounter Date Diagnosis Assessment Notes Treatment Notes Treatment Clinical Notes January, Alternating constipation and diarrhea (ICD-10 - R19.8) [facility] [employer] Other 05-02-2023 Evaluation note* Encounter Date Diagnosis [...] of Ilsa and pt will trial those. [facility] [employer] Other 04-24-2023 Evaluation note* Encounter Date Diagnosis [...] scan in October of last year in [place], following a colonoscopy that was done in September Start Mesalamine Dec, Alternating constipation and diarrhea (ICD-10 - R19.8) Start low fod map diet Start probiotics [facility] [employer] Other 03-23-2023 History of Present illness Narrative* [...] 11/30/2022 2:13 PM Patient: Emily Macias MR#: [id number] : 1960 Age: 61 y.o. Referring Physician: [...] [x]cane, []bracing Are you followed by a commissioned sales associate? [] [x] Name: Are you followed by pain management? [] [x] Name: Are you followed by any other specialists? [x] [] Name: RA Dr Felipa Bustillos Outpatient Medications Prior to Visit Medication Sig Dispense Refill Ascorbic Acid 1000 MG tablet Take 1 tablet by mouth daily. B Complex Vitamins (B COMPLEX 1 PO) Take by mouth. Biotin 90872 MCG tablet Take by mouth. Cholecalciferol 250 MCG (64410 UT) capsule capsule Take by mouth. Cobalamin [...] Take by mouth., Disp: , Rfl: Biotin 99917 MCG tablet, Take by mouth., Disp: , Rfl: Cholecalciferol 250 MCG (57403 UT) capsule capsule, Take by mouth., Disp: [...] symptoms. She has history of partial medial [place] uni knee on 08/13/[address] Lazar. [...] left knee. She has a medial partial Liberty uni-arthroplasty in place with severe adjacent patellofemoral arthritis. IMPRESSION: 1.) History of left partial medial [place] uni knee on 08/13/[address] Lazar. [...] conversion from uni to total for optimal intermodal dispatcher management. We have discussed in great detail [...] of limb, and ultimately loss of life. jail expectations, risks and general implant survivorship were also discussed. Despite these risks, the patient would liketo proceed with surgical planning. Today, we will initiate the pre-surgical process including nasalMRSA screening, scheduling an appointment for [facility] and the potential surgical date, andreviewing and [...] Take by mouth., Disp: , Rfl: Biotin 97700 MCG tablet, Take by mouth., Disp: , Rfl: Cholecalciferol 250 MCG (93755 UT) capsule capsule, Take by mouth., Disp: [...] migraines Zanaflex [Tizanidine] Hallucination documented in this [facility]01-31-20[facility] Evaluation note* Encounter Date Diagnosis Assessment Notes Treatment Notes Treatment Clinical Notes Sep, Fibromyalgia (ICD-10 - M79.7) handicap placard rx handwritten Sep, Type 2 diabetes mellitus with hyperglycemia, without long-term current use of insulin (ICD-10 - E11.65) good readings on home meter with present meds. Sep, Positive ADRI (antinuclear antibody) (ICD-10 - R76.8) Suggested getting on cancellation list at Rheumatology [facility] [employer] Other 01-13-2023 Evaluation note* Encounter Date Diagnosis Assessment Notes Treatment Notes Treatment Clinical Notes Sep, Positive ADRI (antinuclear antibody) (ICD-10 - R76.8) Sep, Fibromyalgia (ICD-10 - M79.7) [facility] [employer] Other 01-04-2023 Evaluation note* Encounter Date Diagnosis Assessment Notes Treatment Notes Treatment Clinical Notes Sep, Abdominal cramping (ICD-10 - R10.9) Sep, Type 2 diabetes mellitus with hyperglycemia, without long-term current use of insulin (ICD-10 - E11.65) advised holding or decreasing dose of ozempic to 0.25/week as this could relate to GI side effects [facility] [employer] Other 10-31-2022 NotePROCEDURE: XR TIB_FIB RT 2V COMPARISON: 08/24/2021 HISTORY: Pain in lower limb FINDINGS: BONES:No acute fracture or dislocation. Degenerative changes of the knee and ankle. Enthesopathic spurring of the calcaneus SOFT TISSUES:Negative. No visible soft tissue swelling. EFFUSION:None visible. OTHER: Negative. IMPRESSION: Osteoarthritis Electronically authenticated by: WANDA DIANE Date: 2022-07-10 13:36[facility]06-29-2022 NoteCONSULTATION CONSULTATION DATE: 03/08/2022 HISTORY OF PRESENT [...] of pain. 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 [...] care and would like to move forward. [facility] Signed and Approved by: SABINA DELGADILLO . 03/09/2022 13:38:00[facility] Diagnosis Pain in prosthetic joint, sequela- Primary [facility] InformationNort [employer] Other Evaluation note* Diagnosis Hx of total knee arthroplasty, left- Primary [facility] assessment information [facility] Work Phone: Evaluation note* Diagnosis Post-op pain- Primary Other acute postoperative pain Pain in prosthetic joint, subsequent encounter [facility] Hx of total knee arthroplasty, left- Primary [facility] Diagnosis Hx of total knee arthroplasty, left- Primary Pain in prosthetic joint, subsequent encounter [facility] Narrative - Reported* Type Description Date [...] diabetes divya itus with hyperglycemia, unspecified whether intermodal dispatcher insulin use Medical History Fitzpatrick splints, right, [...] ADENOIDECTOMY Hospitalization History mono Hospitalization History menegitis [facility] [employer] Other History general Narrative - Reported* Type [...] diabetes divya itus with hyperglycemia, unspecified whether intermodal dispatcher insulin use Medical History Fitzpatrick splints, right, [...] DR. LANDEROS 2018 Surgical History CARPAL TUNNEL 1990 Surgical History RIGHT RIB/LEFT SHOULDER MASS RE MOVED 2000 Surgical History LEFT GREAT TOE JOINT REPLACEMEN T 2012 Surgical History LEFT UNIOCFORD KNEE REPLACEMENT 2016 Surgical History COLONOSCOPY Surgical History TONSILLECTOMY AND ADENOIDECTOMY Surgical History Left knee 01/29/2023 Hospitalization History mono Hospitalization History AFTER-MOUSE Other Reason for referral (narrative)* Consultation (Routine) - Patient to Arrange Specialty Diagnoses / Procedures Referred By Westley finnegan Referred To Contact Physical Therapy Diagnoses Hx of total knee arthroplasty, left Radha Asif APRN-CNP [address] [place] [address] Referral ID Status Reason Start Date Expiration Date V isits Requested Visits Authorized [id number] Patient to Arrange 02/22/2023 03/18/2024 1 1 Scheduling Instructions . * Diagnostic X-Ray (Routine) - New Request Specialty Diagnoses / Procedures Referred By Westley finnegan Referred To Contact Diagnoses Hx of total knee arthroplasty, left Procedures XR KNEE LEFT 3 VIEWS Radha Asfi APRN-CNP [address] [place] [address] Referral ID Status Reason Start Date Expiration Date V isits Requested Visits Authorized [id number] New Request 02/20/2023 03/16/2024 1 1 [facility] Summary Purpose Family History Relationship Condition [...] 1 Abdominal cramping ( R10.9) Referral Organization [facility] C reginaldo Referring Provider First Name Netta Referring Provider Last Name Lindsay Referring Provider Specialty Family [facility] cine Referred Organization [facility] Referred Provider Ismael Early Referred Address [address] [place], [place],[address] Referred Provider Specialty Gastroentero logy Referral Priority Routine Referral Appointment Date 2022-12-28 General Notes Sonali Cortez 10:30:02 AM >received today, notes locked and referral faxed Sonali Cortez 09/25/2022 10:48:23 AM >pt scheduled Reason 11/21/22 See phone note - this is related to a process assistant in [place] area testing labs. I do not have a copy of his labs. Diagnosis 1 Positive ADRI (antinu clear antibody) (R76.8) Referral Organization [facility] C reginaldo Referring Provider First Name Netta Referring Provider Last Name Lindsay Referring Provider Specialty Family [facility] cine Referred Organization [facility] Referred Provider Cara Leo Referred Address [address] Russel Aponte,[place], [place],[address] Referred Provider Specialty Rheumatology Referral Priority Routine Referral Appointment Date 2022-11-21 General Notes Sonali Cortez 09:22:28 AM >received today, notes attached and ins card attached. will call pt to see who she saw in [place] to get labs. Sonali Cortez 09/25/2022 10:37:57 AM >spoke with patient and was provided Dr. Balbuena phone number [phone] to request labs. told patient I would [...] XR BONE LENGTH STUDY Sagar Krause MD [address] [place] [phone] Referral ID Status Reason Start Date Expiration Date V isits Requested Visits Authorized [id number] New Request 11/24/2022 12/19/2023 1 1 Specialty Diagnoses / Procedures Referred By Contac t Referred To Contact Diagnoses Pain in prosthetic joint, sequela Procedures XR KNEE LEFT 3 VIEWS Sagar Krause MD [address] [place] [id number] Referral ID Status Reason Start Date Expiration Date V isits Requested Visits Authorized [id number] New Request 11/24/2022 12/19/2023 1 1 Specialty Diagnoses / Procedures Referred By Contac t Referred To Contact Diagnoses Post-op pain Procedures XR KNEE LEFT 3 VIEWS Sagar Krause MD [address] [place] [id number] Referral ID Status Reason Start Date Expiration Date V isits Requested Visits Authorized [id number] New Request 08/06/2023 08/30/2024 1 1 Specialty Diagnoses / Procedures Referred By Contac t Referred To Contact Diagnoses Hx of total knee arthroplasty, left Procedures XR KNEE LEFT 3 VIEWS Radha Asif APRN-KEIRA [address] [place] [address] Referral ID Status Reason Start Date Expiration Date V isits Requested Visits Authorized [id number] New Request 12/25/2023 01/18/2025 1 1 Specialty Diagnoses / Procedures Referred By Contac t Referred To Contact Diagnoses Hx of total knee arthroplasty, left Procedures XR KNEE LEFT 3 VIEWS Sagar Krause MD [address] [place] [id number] Referral ID Status Reason Start Date Expiration Date V isits Requested Visits Authorized [id number] New Request 02/14/2024 03/10/2025 1 1 Chief Complaint and Reason for Visit Chief Complaint Abdominal Cramping, EPI Chief Complaint Abdominal Cramping, EPI Low back pain Chief Complaint Admit Date LUIS/ 30 MINS July 17, 2024 1 :45pm talk about blood sugars July 29, 2 024 9:30am One month follow up August [...] 1:45pm Type 2 diabetes mellitus with hyperglyce [facility] July 29, 2024 9:30am Abdominal cramping August [...] Date Type 2 diabetes mellitus with hyperglyce [facility] July 29, 2024 9:30am Abdominal cramping August 29, 2024 10:41am Bloating August 29, 2024 10:41am GERD (gastroesophageal reflux disease) D ecember 2023 10:41am History of pancreatitis August 29 024 10:41am Irritable bowel syndrome with constipati on [...] 8:57am Vitamin B12 deficiency October 21 8:57am Chief Complaint Admit Date 1 month follow up September 30, 2024 1 :49pm R19.7 R15.9 September 30, 2024 2 :58pm LUIS/ 3 MONTHS October 21, 2024 8:57am headaches December 10, 2024 8:54 am Reason for Visit Admit Date Abdominal pain September 30, 2024 1 :49pm Bloating September 30, 2024 1 :49pm GERD (gastroesophageal reflux disease) J anuary 2024 1:49pm Irritable bowel syndrome with constipati on and diarrhea September 30, 2024 1:49pm Nausea September 30, 2024 1 :49pm Chronic insomnia October 21, 2024 8:57am Depression October 21, 2024 8:57am 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, 2024 8:57am Hypothyroidism October 21, 2024 8:57am Intolerance to BiPAP/CPAP October 21, 2024 8:57am LUIS (obstructive sleep apnea) October 112024 8:57am Restless leg syndrome October 21 8:57am Vitamin B12 deficiency October 21 8:57am Type 2 diabetes mellitus with hyperglyce christina December 10, 2024 8:54am Additional Source Comments INFORMATION SOURCE (unrecogn ized section and content) DATE CREATED AUTHOR 09/08/2021 [facility] DATE CREATED AUTHOR AUTHOR'S ORGANIZ ATION 01/23/2023 [facility] DATE CREATED AUTHOR AUTHOR'S ORGANIZ ATION 02/29/2024 [facility] DATE CREATED AUTHOR AUTHOR'S ORGANIZ ATION 09/22/2024 [facility] DATE CREATED AUTHOR AUTHOR'S ORGANIZ ATION 09/23/2024 [facility] DATE CREATED AUTHOR AUTHOR'S ORGANIZ ATION 09/23/2024 [facility] DATE CREATED AUTHOR AUTHOR'S ORGANIZ ATION 10/02/2024 [facility] REASON FOR VISIT (unrecogniz ed section and content) Specialty Diagnoses / Procedures Referred By Contac t Referred To Contact Diagnoses Pain in prosthetic joint, sequela Procedures XR BONE LENGTH STUDY Sagar Krause MD [address] [place] [id number] Referral ID Status Reason Start Date Expiration Date V isits Requested Visits Authorized [id number] New Request 11/24/2022 12/19/2023 1 1 Reason Comments Pain Reason Comments Surgical Follow-up Specialty Diagnoses / Procedures Referred By Contac t Referred To Contact Diagnoses Post-op pain Procedures XR KNEE LEFT 3 VIEWS Sagar Krause MD [address] [place] [id number] Referral ID Status Reason Start Date Expiration Date V isits Requested Visits Authorized [id number] New Request 08/06/2023 08/30/2024 1 1 Reason Comments Pain Specialty Diagnoses / Procedures Referred By Contac t Referred To Contact Diagnoses Hx of total knee arthroplasty, left Procedures XR KNEE LEFT 3 VIEWS Radha Asif, PLANT TECHNICIAN-LOCKSTITCH LINING SETTER [address] [place] [address] Referral ID Status Reason Start Date Expiration Date V isits Requested Visits Authorized [id number] New Request 12/25/2023 01/18/2025 1 1 Reason Comments Follow-up Specialty Diagnoses / Procedures Referred By Contlinh t Referred To Contact Diagnoses Hx of total knee arthroplasty, left Procedures XR KNEE LEFT 3 VIEWS Sagar Krause MD [address] [place] [address] Referral ID Status Reason Start Date Expiration Date V isits Requested Visits Authorized [id number] New Request 02/14/2024 03/10/2025 1 1 Care Teams (unrecognized sec tion and content) Crimp Setter Relationship Specialty Start Date End Date Netta Montoya MD [address] [place] [phone] PCP - General Family Medicine 10/20/22 Crimp Setter Relationship Specialty Start Date End Date Netta Montoya MD [address] [place] [phone] PCP - General Family Medicine 10/20/22 Crimp Setter Relationship Specialty Start Date End Date Netta Montoya MD [address] [place] [phone] PCP - General Family Medicine 10/20/22 Team Status: Active Member Role Status Dates Netta Montoya MD Primary Care Provider Active Team Status: Inactive Member Role Status Dates Siva Ron MD Attending Provider Active Netta Montoya MD Primary Care Provider Active Team Status: Inactive Member Role Status Dates Netta Montoya MD Primary Care Provider Active Cara Leo MD Attending Provider Active Crimp Setter Relationship Specialty Start Date End Date Netta Montoya MD [address] [place] [phone] PCP - General Family Medicine 10/20/22 Crimp Setter Relationship Specialty Start Date End Date Netta Montoya MD [address] [place] [phone] PCP - General Family Medicine 10/20/22 Crimp Setter Relationship Specialty Start Date End Date Netta Montoya MD [address] [place] [address] PCP - General Family Medicine 10/20/22 Crimp Setter Relationship Specialty Start Date End Date Netta Montoya MD [address] [place] [address] PCP - General Family Medicine 10/20/22 Team [...] October 21, 2024 End: October 21, 2024 Team Status: Active Member Role Status Dates Netta Montoya MD Primary Care Provider Active Start: November 10, 2024 Mary Nicolas APRN Attending Provider Active Start: November 10, 2024 Team Status: Inactive Member Role Status Dates Netta Montoya MD Primary Care Provide r, Attending Provider Active Start: December 10, 2024 End: December 10, 2024 Goals (unrecognized section and content) Goals [...] ON THE PRIMARY CLINICAL RECORDS. [facility]. provides no warranty or guarantee of the accuracy or completeness of information in this document.
[2024-12-22 07:51] VITALS: BP 113/64; PULSE 76; TEMP 36.8; O2SAT 97
[2024-12-22 07:51] LABS: Glucometer 199 mg/dL (74-106)
[2024-12-22 08:22] VITALS: BP 115/57; BP 129/56; PULSE 80; PULSE 86; O2SAT 100; O2SAT 96
[2024-12-22] MEDS: METHYLPREDNISOLONE ACETATE 40 MG/ML VIAL INJ (08:24)
[2024-12-22] MEDS: BUPIVACAINE HCL 0.25% PF 25 MG/10 ML VIAL 5 ML INJ (08:24)
--- NOTE | 2024-12-22 08:27 | P.ON_ITS ---
Date of procedure: 12/22/24 Pre-op diagnosis: Left knee pain Post-op diagnosis: same as pre-op Procedure: Procedure: Left knee genicular nerve block Medications: Bupivacaine 0.25% 3cc, depomedrol 40mg The patient was taken to the procedures suite and positioned in the supine posi tion. I explained the details of the procedure to the patient including the risks, benefits and alternatives. We had an informed discussion and the patient verbalized understanding and signed the consent form. All questions were answered appropriately.? A 'time out' procedure was performed. The patient was identified, the chart was reviewed, and all allergies were confirmed. Laterality was conducted and marked. The left knee was marked with a sterile marking pen, prepped times three, and sterilely draped.? Under fluoroscopic guidance, branches of the genicular nerves were localized.? First the superior medial genicular nerve was localized where the femoral shaft meets the medial epicondyle.? Skin was anesthetized with 1% lidocaine.? A 25-gauge 3.5 in needle was advanced in a coaxial manner in the AP view.? This was repeated on the superior lateral genicular nerve where the femoral shaft meets the lateral epicondyle and the inferior medial genicular nerve where the medial tibial shaft meets the tibial epicondyle. After negative aspiration for blood or other bodily fluids, 1cc of medication was injected at each of the three sites. The needles were removed and the sites of injection w ere bandaged. The patient was transported to the postoperative area in good condition. Anesthesia: Local Surgeon: Chandra Edouard Pathology: none sent Condition: stable Disposition: no change
== END 2024-12-22 08:30 | disposition home or self-care (01) ==
LOC: SURGOUT 07:34
PROVIDERS: PCP Family Medicine; Visit Provider Anesthesiology
DX: M25.562 Pain in left knee (principal); E11.8 Type 2 diabetes mellitus with unspecified complications; Z79.84 Long term (current) use of oral hypoglycemic drugs
CPT/HCPCS: 36415; 64454; 82948; J0665; J1010

== ENCOUNTER 2024-12-31 09:24 | Outpatient (OUT) | payer MEDICARE, SELFPAY ==
--- NOTE | 2024-12-31 10:02 | P.CN_ITS ---
Consult Note: HPI Data of Consult Patient: known to practice within the last 3 years Requesting Physician: Tayler Augustin NP Primary Care Provider: Soila Joseph MD Consult Narrative Reason for consult: bilateral low back pain and left knee pain Narrative: 64yof who presents for assessment. worsening pain through low back into bilateral hips. imaging reviewed, which shows disc bulge and tear at l4-5 to the right. has completed >6 weeks of provider directed home exercises, without benefit. uses celebrex, robaxin, tramadol, zonegran. recently underwent right sciatic nerve block with no improvement. Pt continues to have moderate to severe daily pain severely impacting her day to day life in low back and left knee. MARITZA 44%. Pain today 6/10, increasing to 9/10. Pain stabbing, sharp, pinching, burning. Pain increased with standing, walking, pushing, pulling, sleep. Pain improved with changing positions and heat. pending evaluation with Dr Leavitt for scs trial consultation. pt recently underwent left genicular nerve block working towards RFA with >80% improvement in pain while anesthetized. Preop pain up to 10/10 post op pain 1-2/10, however within 2 hours of the procedure the patient the pt fell onto her left knee and twisted her right ankle. cc:: CC: Tayler Augustin NP Review of Systems ROS Status of ROS 10 or more systems reviewed and unremark able except as noted in h istory and below Musculoskeletal Reports: back pain, extremity pain, extremity swelling and joint pain PFSH PFSH Medical History (Updated 12/31/24 @ 10:05 by Tayler Augustin NP) Rectocele ?N81.6 - Rectocele (ICD-10) Cataract, left eye ?H26.9 - Unspecified cataract (ICD-10) Cataract, right eye ?H26.9 - Unspecified cataract (ICD-10) History of revision of total replacement of left knee joint ?Z96.652 - Presence of left artificial knee joint (ICD-10) Plantar fasciitis of right foot ?M72.2 - Plantar fascial fibromatosis (ICD-10) Tear of left meniscus as current injury ?S83.207A - Unspecified tear of unspecified meniscus, current injury, left knee, initial encounter (ICD-10) Ruptured ovarian cyst ?N83.209 - Unspecified ovarian cyst, unspecified side (ICD-10) Surgical History H/O hemorrhoidectomy ?Z98.890 - Other specified postprocedural states (ICD-10) History of fundoplication ?Z98.890 - Other specified postprocedural states (ICD-10) History of hysterectomy ?Z90.710 - Acquired absence of both cervix and uterus (ICD-10) History of laparoscopic cholecystectomy ?Z90.49 - Acquired absence of other specified parts of digestive tract (ICD- 10) History of carpal tunnel surgery of right wrist ?Z98.890 - Other specified postprocedural states (ICD-10) History of tonsillectomy and adenoidectomy ?Z90.89 - Acquired absence of other organs (ICD-10) Meds Home Medications and Allergies Home Medications ?Medication ?Instructions ?Recorded ?Confirmed ?Type celecoxib 200 mg capsule (Celebrex) 200 mg PO BID 06/24/24 12/22/24 History eszopiclone 3 mg tablet (Lunesta) 3 mg DAILY 06/24/24 History levothyroxine 100 mcg tablet 100 mcg PO DAILY 06/24/24 12/22/24 History (Euthyrox) metformin 1,000 mg tablet 1,000 mg PO BID 06/24/24 12/22/24 History multivitamin 1 tab PO DAILY 06/24/24 12/22/24 History omeprazole 20 mg capsule,delayed 20 mg PO DAILY 06/24/24 12/22/24 History release oxybutynin chloride 5 mg tablet 5 mg PO DAILY 06/24/24 12/22/24 History tramadol 50 mg tablet 50 mg PO BID 06/24/24 12/22/24 History zonisamide 50 mg capsule 100 mg (2 x 50 mg) PO DAILY #60 09/18/24 12/22/24 Rx caps zonisamide 100 mg capsule 100 mg PO DAILY #30 caps 10/21/24 12/22/24 Rx (Zonegran) Allergies Allergy/AdvReac Type Severity Reaction Status Date / Time milnacipran (From Savella) Allergy Unknown Unknown Verified 12/22/24 07:53 tizanidine (From Zanaflex) Allergy Unknown Unknown Verified 12/22/24 07:53 Exam Constitutional Documenting provider has reviewed patient's vital signs: yes Common normals: no apparent distress, oriented x3, healthy appearing, alert and well nourished General appearance: cooperative HENMT Common normals: normocephalic, hearing grossly normal bilaterally and moist oral mucous membranes Head and scalp: normocephalic Eye Common normals: PERRL Pupil: PERRL Neck & C-Spine Common normals: full ROM General: normal visual inspection Chest Common normals: inspection of chest normal Respiratory Common normals: normal respiratory effort, no retractions and no use of accessory muscles Back & Pelvis Lumbar spine/lower back: ROM limited, pain with ROM and straight leg raise positive right Sacroiliac joints: SI joint(s) abnormal Other: bilateral sij positive tiffany(patricks), gaenslens, thigh thrust, compression test Extremity Right lower extremity: ankle joint (full ROM with increased pain) Right ankle: inspection (edema noted to lateral ankle) and ROM Left lower extremity: knee joint Other: left knee increased pain with palpation, weight bearing. no instability noted, no edema noted, warm to touch. full ROM right foot/ankle no redness, edema noted to right ankle and warm to touch Neuro Common normals: oriented x3, CN's II-XII intact bilaterally, moves all extremities, no focal motor deficits, no sensory deficits noted and deep tendon reflexes 2+ bilaterally Sensorium/orientation: alert Motor exam: strength 5/5 throughout and no movement abnormalities noted Psych Common normals: mental status grossly normal, thought process normal, cooperative, affect normal, speech normal and activity/motor behavior normal Speech: normal speech Thought process: normal thought process Assessment and Plan Assessment and Plan (1) Chronic knee pain after total replacement of left knee joint: (2) Bilateral sacroiliitis: (3) Lumbar radiculopathy: (4) Acute right ankle pain: Plan left genicular nerve RFA for chronic left knee pain post knee replacement, has failed > 6 weeks of PT and provider guided HEP, heat, ice, tylenol, NSAIDs. transdermal therapeutics cream not covered by insurance, pt could not afford encouraged to f/u with Dr Leavitt for consideration of SCS trial in the meantime update right ankle xray to rule out fracture, continues have moderate to severe pain and swelling post fall. continue rest, ice, elevation, compression as discussed. f/u with PCP if pain persists continue HEP as tolerated continue robaxin 500-1000mg TID PRN pain/spasms continue celebrex 200mg BID PRN and zonegran 100mg HS f/u 1 month after RFA complete
== END 2024-12-31 09:25 | disposition home or self-care (01) ==
LOC: PM 09:25
PROVIDERS: PCP Family Medicine; Visit Provider Nurse Practitioner
DX: M25.562 Pain in left knee (principal); M46.1 Sacroiliitis, not elsewhere classified; M54.16 Radiculopathy, lumbar region; M25.571 Pain in right ankle and joints of right foot; Z96.652 Presence of left artificial knee joint
CPT/HCPCS: 73610; G0463

== ENCOUNTER 2024-12-31 10:20 | Outpatient (OUT) | payer MEDICARE, SELFPAY ==
--- NOTE | 2024-12-31 10:32 | XR_ITS ---
The [address] [address] Patient Name: EMILY MACIAS MRN: [id number] date: 1960 Sex: F Assigned Patient Location: [facility] Current Patient Location: [facility] Accession/Order Number: [id number] Exam Date: 12/31/2024 11:19 Report Date: 12/31/2024 11:21 At the request of: TEJAL WHELAN NP Procedure: XR ankle RT min 3V 3 views right ankle plain film COMPARISON: None HISTORY: Acute right ankle pain. Fell one week ago. Lateral pain. ACUTE FINDINGS: None DEGENERATIVE CHANGE: Marginal spurring. Posterior and inferior calcaneal spurring. SOFT TISSUE FINDINGS: Lateral soft tissue swelling JOINT EFFUSION: None POSTOP CHANGES: None BONE MINERALIZATION: Adequate XR/XR ankle RT min 3V IMPRESSION: No acute displaced fracture Impression dictated by: Maximino Ash M.D.12/31/2024 11:21 AM Dictation Location: [place] [address] Electronically authenticated by: [id number] Y Date: 12/31/2024 11:21
== END 2024-12-31 10:21 | disposition home or self-care (01) ==
LOC: RAD 10:22
PROVIDERS: PCP Family Medicine; Visit Provider Nurse Practitioner
DX: M25.571 Pain in right ankle and joints of right foot (principal)
CPT/HCPCS: 73610

== ENCOUNTER 2025-01-05 10:27 | Day surgery (SDC) | payer MEDICARE, SELFPAY ==
[2025-01-05 11:10] VITALS: BP 133/85; PULSE 79; TEMP 36.7; O2SAT 97
[2025-01-05 11:33] VITALS: PULSE 85; O2SAT 100
[2025-01-05 11:34] VITALS: BP 115/58
[2025-01-05 11:35] VITALS: BP 116/55; PULSE 80; O2SAT 100
[2025-01-05] MEDS: BUPIVACAINE HCL 0.25% PF 25 MG/10 ML VIAL 2 ML INJ (11:38)
[2025-01-05] MEDS: LIDOCAINE HCL 2% 400 MG/20 ML MDV 12 ML INJ (11:38)
[2025-01-05] MEDS: METHYLPREDNISOLONE ACETATE 40 MG/ML VIAL INJ (11:39)
--- NOTE | 2025-01-05 11:44 | W.PM.PROCNOT ---
Date of procedure: 01/05/25 Pre-op diagnosis: Pain due to left knee pain Post-op diagnosis: same as pre-op Procedure: Procedure: Left knee genicular nerve radiofrequency ablation Medications: Bupivacaine 0.25% 2cc, lidocaine 2% 10cc, depomedrol 40mg The patient was taken to the procedures suite and positioned in the supine position. I explained the details of the procedure to the patient including the risks, benefits and alternatives. We had an informed discussion and the patient verbalized understanding and signed the consent form. All questions were answered appropriately.? ? A 'time out' procedure was performed. The patient was identified, the chart was reviewed, and all allergies were confirmed. Laterality was conducted and marked. The left knee was marked with a sterile marking pen, prepped with Chloraprep, and sterilely draped.? Under fluoroscopic guidance, branches of the genicular nerves were localized.? First the superior medial genicular nerve was localized where the femoral shaft meets the medial epicondyle.? Skin was anesthetized with 1% lidocaine (only the superficial areas far from osseous contact).? The appropriate level of insertion was identified by placing a hemostat over the knee and obtaining an AP view. An 18-gauge 10 mm active tip 3.5 in needle was advanced in a coaxial manner in the lateral view at 1/2 the depth of the femur which was identified by placing forceps over the skin in the lateral view.? This was repeated on the superior lateral genicular nerve where the femoral shaft meets the lateral epicondyle and the inferior medial genicular nerve where the medial tibal shaft meets the tibial epicondyle (needle was advanced to half the depth of the tibia).? Needle placement was confirmed with a lateral view in all sites, after negative aspiration, 1cc of 2% lidocaine was injected at each of the three sites. ? Sensory testing was completed at 0.5 V at each level and motor testing was negative at 1.5 V for all 3 levels. Each of the sites were lesioned for 80 degrees at 80 seconds, with impedance < 500. The probes were subsequently removed and the sites of insertion were bandaged. The patient was taken to the postoperative area and discharged in good condition. Anesthesia: Local Surgeon: Chandra Edouard Pathology: none sent Condition: stable Disposition: no change
== END 2025-01-05 11:49 | disposition home or self-care (01) ==
PROVIDERS: PCP Family Medicine; Visit Provider Anesthesiology
DX: M25.562 Pain in left knee (principal); E11.8 Type 2 diabetes mellitus with unspecified complications
CPT/HCPCS: 64624; 82948; J0665; J1010

== ENCOUNTER 2025-01-28 07:52 | Outpatient (OUT) | payer MEDICARE, SELFPAY ==
--- OUTSIDE RECORDS SUMMARY | 2023-10-18 09:45 | XMS_ITS ---
Author Organization The [facility] [place] Address [address] [place] [address] Care Team Providers Care Men'S Furnishings Salesperson Name Role Phone Soila Joseph Primary Care Provider Philippe Oropeza [phone] REASON FOR VISIT 2m f/u Encounters Encounter Location Date Provider Diagnosis [facility] [place] [address] [place] [address] [address] [place] [address] 10/18/2023 Philippe Daniels Plan Of Treatment No Information Progress Notes * Lissy MACIASDOB:1960 (64 yo F)Acc No.[id number]:10/18/2023 UNLOCKED PROGRESS NOTE TeleMed via [employer] Patient: Sushila FIGUEREDOLissy RAMON Provider: Erin Kemp MD :1960 A ge:62 Y S ex:Female Date:10/18/2023 Address:[address] [place], [place] [id number] Pcp:Soila Joseph Subjective: * Chief Complaints: * 1 . 2m f/u. * Medical History: Objective: * Vitals: Assessment: Plan: * Treatment: * * Electronic signature of Charbel Daniels MD, [id number] on 01/28/2025 at 08:06 AM EDT Sign off status: Pending Visit Status: C ANC (Cancelled) * Provider: Erin Kemp MD Date: 0 10/18/2023 Generated for Missy chow/Jarod/Sravan on: 0 01/28/2025 08:06 AM EDT
--- OUTSIDE RECORDS SUMMARY | 2024-02-20 05:19 | XMS_ITS ---
Author Organization [facility] [place] Address [address] [place] [address] Care Team Providers Care Tableau Lead Name Role Phone Soila Joseph Primary Care Provider Unavailabl Philippe Fernández Unavailable [phone] REASON FOR VISIT Refill/and [facility] # Medications Medication SIG (Take, Route, Fr equency, Duration) Notes Start Date End Date Status Eszopiclone 3 MG 1 tablet immediately before bedtime Orally Once a day for 90 days 08/17/2023 Ac tive Encounters Encounter Location Date Provider Diagnosis [facility] [place] [address] [facility] [address] [place] [address] 02/20/2024 Philippe Daniels Insomnia, unspecifie d G47.00 [...] Notes * Lissy MACIASDOB:1960 (63 yo F)Acc No.[id number]:02/20/2024 Patient: Sushila Lissy FRYE :1960 A ge:63 Y S ex:Female Address:[address] [place] [address] , [place], [address] * Refills Refill Eszopiclone Tablet, 3 MG, Orally, 90 Tablet, 1 tablet immediately before bedtime, Once a day, 90 days, Refills=3 * true * Date: Generated for Missy chow/Jarod/Sravan on: 0 01/28/2025 08:05 AM EDT
--- OUTSIDE RECORDS SUMMARY | 2024-03-19 04:45 | XMS_ITS ---
Author Organization [facility] vices Address [address] [place] [phone] Care Team Providers Care Qa Intern Name Role Phone Coral Dawn Unavailable [phone] REASON FOR VISIT Rest #4-DO Social History Sex Assigned At : Social History Observation Description Sex Assigned At Female Encounters Encounter Location Date Provider Diagnosis Dental Main [address] [place], [place] [phone] 03/19/2024 Coral Dawn Plan Of Treatment No Information Progress Notes * Kia MACIASDOB:1960 (64 yo F)Acc No.[id number]:03/19/2024 Patient: Kia RODRIGUEZ Provider: Fay Dawn DDS :1960 A ge:63 Y S ex:Female Date:03/19/2024 Address:[address] [place], [place] [phone] Subjective: * Chief Complaints: * 1 . Rest #4-DO. * Medical History: Objective: * Vitals: Assessment: Plan: * Treatment: * Billing Information: * Visit Code: * Procedure Codes: * Electronic signature of Angela Dawn DDS on 01/28/2025 at 07:57 AM EDT Sign off status: Pending * Provider: Fay Dawn DDS Date: 03/19/2024 Generated for Printi ng/Faxing/eTransmitting on: 01/28/2025 07:57 AM EDT
--- OUTSIDE RECORDS SUMMARY | 2024-03-28 04:45 | XMS_ITS ---
Author Organization [facility] vices Address [address] [place] [phone] Care Team Providers Care Blueprint Tracer Name Role Phone Coral Dawn Unavailable [phone] REASON FOR VISIT Prophy (A) (63) Social History Sex Assigned At : Social History Observation Description Sex Assigned At Female Encounters Encounter Location Date Provider Diagnosis Dental Main [address] [place], [place] [phone] 03/28/2024 Coral Dawn Plan Of Treatment No Information Progress Notes * Kia MACIASDOB:1960 (64 yo F)Acc No.[id number]:03/28/2024 Patient: Kia RODRIGUEZ Provider: Fay Dawn DDS :1960 A ge:63 Y S ex:Female Date:03/28/2024 Address:[address] [place], [place] [phone] Subjective: * Chief Complaints: * 1 . Prophy (A) (63). * Medical History: Objective: * Vitals: Assessment: Plan: * Treatment: * Billing Information: * Visit Code: * Procedure Codes: * Electronic signature of Angela Dawn DDS on 01/28/2025 at 08:02 AM EDT Sign off status: Pending * Provider: Fay Dawn DDS Date: 03/28/2024 Generated for Missy chow/Jarod/eTransmitting on: 01/28/2025 08:02 AM EDT
--- OUTSIDE RECORDS SUMMARY | 2024-07-23 07:30 | XMS_ITS ---
Author Organization The [facility] in [place] Address [address] [place] [address] Care Team Providers Care Cereal Popper Name Role Phone Soila Joseph Primary Care Provider Philippe Oropeza [phone] REASON FOR VISIT 1yr f/u Encounters Encounter Location Date Provider Diagnosis [facility] [address] [facility] [address] [place] [address] 07/23/2024 Philippe Daniels Plan Of Treatment No Information Progress Notes * Lissy MACIASDOB:1960 (64 yo F)Acc No.[id number]:07/23/2024 UNLOCKED PROGRESS NOTE Follow Up Patient: Sushila FIGUEREDOYENNY Lissy Sandip Provider: Erin Kemp MD :1960 A ge:63 Y S ex:Female Date:07/23/2024 Address:[address] [place], [place] [id number] Pcp:Soila Joseph Subjective: * Chief Complaints: * 1 . 1yr f/u. * Medical History: Objective: * Vitals: Assessment: Plan: * Treatment: * * Electronic signature of Charbel Daniels MD, [id number] on 01/28/2025 at 08:05 AM EDT Sign off status: Pending Visit Status: C ANC (Cancelled) * Provider: Erin Kemp MD Date: 09/22/2023 Generated for Missy chow/Jarod/Kirillitting on: 0 01/28/2025 08:05 AM EDT
--- OUTSIDE RECORDS SUMMARY | 2024-10-14 09:30 | XMS_ITS ---
Author Organization [facility] Address [address] [place] [address] Care Team Providers Care Industrial Hygenist Name Role Phone Dr. Bar Small Primary Care Provider Ligia Quiñonez Unavailable [phone] REASON FOR VISIT FILLING Encounters Encounter Location Date Provider Diagnosis [facility] [address] [address] 10/14/2024 Ligia Quiñonez Plan Of Treatment Next Appt Details Provider Name:Saba Steele , 09/07/2025 02:15:00 PM, [address], [place], [address], Progress Notes * CURTIS MACIASB:[birth year] 59 (64 yo F)Acc No.[id number]:10/14/2024 Patient: Sushila UDAY EMILY Provider: Sandip Quiñonez :1960 A ge:63 Y S ex:Female Date:10/14/2024 Address:[address] [place] [id number] Pcp:Dr. Bar Small Subjective: * Chief Complaints: * 1 . FILLING. * Medical History: Objective: * Vitals: Assessment: Plan: * Treatment: * Images: * Electronic signature of Berto Quiñonez DMD on 01/28/2025 at 08:08 AM EDT Sign off status: Pending * Provider: Sandip Quiñonez Date: 0 10/14/2024 Generated for Missy chow/Jarod/Sravan on: 0 01/28/2025 08:08 AM EDT
--- OUTSIDE RECORDS SUMMARY | 2025-01-28 07:56 | XMS_ITS | Patient Health Record ---
Author Organization [facility] Address [address] [place] [address] Care Team Providers Care Quality Assurance Supervisor Body Name Role Phone Dr. Bar Small Primary Care Provider Saba Steele Unavailable [phone] Ligia Quiñonez Unavailable [phone] Reason For Referral No Information Encounters Encounter Location Date Provider Diagnosis [facility] [address] [place] [address] 01/30/2024 Saba Steele Acute gingivitis, plaque induced K05.00 ; Other dental procedure status Z98.818 ; Encounter for dental examination and cleaning with abnormal findings Z01.21 and Dental caries on pit and fissure surface penetrating into dentin K02.52 [facility] [address] [place] [address] 05/29/2024 Ligia Saric Dental caries on pit and fissure surface penetrating into dentin K02.52 [facility] [address] [place] [address] 07/21/2024 Ligia Saric Dental caries on pit and fissure surface penetrating into dentin K02.52 [facility] [address] [place] [address] 08/04/2024 Saba Steele Acute gingivitis, plaque induced K05.00 ; Other dental procedure status Z98.818 and Encounter for dental examination and cleaning with abnormal findings Z01.21 [facility] [address] [place] [address] 08/11/2024 Bar Small Dental caries on pit and fissure surface penetrating into dentin K02.52 [facility] [address] [place] [address] 08/05/2024 Bar Small Assessments Encounter Date Diagnosis (ICD Code) Assessment Notes Treatment Notes Treatment Clinical Notes Section Notes 01/30/2024 Acute gingivitis, plaque induced (ICD-10 - K05.00) 05/29/2024 Dental caries on pit and fissure surface penetrating into dentin (ICD-10 - K02.52) 07/21/2024 Dental caries on pit and fissure surface penetrating into dentin (ICD-10 - K02.52) 08/04/2024 Acute gingivitis, plaque induced (ICD-10 - K05.00) 08/11/2024 Dental caries on pit and fissure surface penetrating into dentin (ICD-10 - K02.52) 08/04/2024 Other dental procedure status (ICD-10 - Z98.818) 01/30/2024 Other dental procedure status (ICD-10 - Z98.818) 01/30/2024 Encounter for dental examination and cleaning with abnormal findings (ICD-10 - Z01.21) 08/04/2024 Encounter for dental examination and cleaning with abnormal findings (ICD-10 - Z01.21) 01/30/2024 Dental caries on pit and fissure surface penetrating into dentin (ICD-10 - K02.52) Plan Of Treatment Next Appt Details Provider Name:Saba Steele , 09/07/2025 02:15:00 PM, [address], [place], [address], Insurance Providers Payer Name Payer Address Payer Phone Subscriber Number Group Number Insured Name Patient Relationship to Insured Coverage Start Date Coverage End Date [employer] [address] [place] [phone] [id number] EMILY MACIAS Self - patient is the insured DENTAL [employer] MEDICARE [address] [address] [place] [address] [id number] EMILY MACIAS Self - patient is the insured 3
--- OUTSIDE RECORDS SUMMARY | 2025-01-28 07:57 | XMS_ITS | Clinical Summary ---
Author Organization [facility] Address [address] [place] [address] Care Team Providers Care Commercial Technician Name Role Phone Unavailable Primary Care Provider Unavailabl e Social History Tobacco Use Types Packs/Day Years Used Date Smoking Tobacco: Never Assessed [place] Safety & Environment Answer Date Rec orded Fear of Current or Ex-Partner Not on file Emotionally Abused Not on file 11/01/2023 Physically Abused Not on file 11/01/2023 Sexually Abused Not on file 11/01/2023 Physically or Sexually Abused Not on file Sex and Gender Information Value Date Recorded Sex Assigned at Not on file Gender Identity Not on file Sexual Orientation Not on file Plan of Treatment Health Maintenance Due Date Last Done Comments CT Colonography 1960 Colonoscopy 1960 Colorectal Cancer Screening 1960 Diabetes: Hemoglobin A1C 1960 FIT-DNA 1960 FIT 1960 FOBT 1960 Medicare Annual Wellness (AWV) 1960 Medicare Initial Physical (IPPE) 1960 Sigmoidoscopy 1960 Diabetes: Retinopathy Screening 12/15/1969 Depression Screening 1971 Diabetes: Urine Protein Screening 12/15/1978 Pap Smear 12/15/1980 Adult Tetanus 12/15/1981 Cervical Cancer Screening 12/15/1989 HPV/Cotest 12/15/1989 Mammogram 1999 Zoster Vaccines (1 of 2) 12/15/2009 COVID-19 Vaccine ( - 2023-2 5 season) 2024 Fall Risk Screening 12/15/2024 Pneumococcal Vaccine: 65+ Ye ars (1 of 1 - PCV) 12/15/2024 Influenza Vaccine (Season Ended) 2025 HIB Vaccines Aged Out No longer eligi ble based on patient's age to complete this topic HPV Vaccines Aged Out No longer eligi ble based on patient's age to complete this topic IPV Vaccines Aged Out No longer eligi ble based on patient's age to complete this topic Meningococcal B Vaccine Aged Out No l onger eligible based on patient's age to complete this topic Meningococcal Vaccine Aged Out No kristofer gregorio eligible based on patient's age to complete this topic Rotavirus Vaccines Aged Out No longer eligible based on patient's age to complete this topic
--- OUTSIDE RECORDS SUMMARY | 2025-01-28 07:57 | XMS_ITS | Referral Summary ---
Author Organization [facility] Address [address] [place] [address] Care Team Providers Care Chief Contract Officer Name Role Phone Unavailable Primary Care Provider [...] Orientation Not on file Plan of Treatment Not on file
--- OUTSIDE RECORDS SUMMARY | 2025-01-28 07:58 | XMS_ITS | CCD ---
Author Organization [facility] Care Team Providers Care Sports Lawyer Name Role Phone Netta Montoya Unavailable Siva [...] Primary Care Unavailable RADHA IRVIN Referring Unavailable MONTOYANETTA Primary Care Unavailable RADHA IRVIN Attending Unavailable NETTA MONTOYA Primary Care Unavailable SELF, SELF Referring Unavailable SAGAR KRAUSE Attending Unavailable BRANDEE, RADHA Referring Unavailable NETTA MONTOYA E Primary Care Unavailable BRANDEE, RADHA Referring Unavailable OMNTOYA, NETTA E Primary Care Unavailable BRANDEE, RADHA Referring Unavailable MONTOYA, NETTA E Primary Care Unavailable BRANDEE, RADHA Referring Unavailable LIDNSAY, NETTA E Primary Care Unavailable LAKSHMIPATHY, NARENDRANATH Referring Unava ilable LINDSAY, NETTA E Primary Care Unavailable LAKSHMIPATHY, NARENDRANATH Referring Unava ilable LINDSAY, NETTA E Primary Care Unavailable SURI HANYBEAU COLON Referring Unavailable Netta Montoya MD Primary Care Provider Jb Grady APRN Attending Provider Netta Montoya MD Primary Care Provider Jb Grady APRN Attending Provider Jb Grady Admitting Unavailable Jb Grady Attending Unavailable Netta Montoya Primary Care Unavailable Jb Grady Admitting Unavailable Jb Grady Attending Unavailable Netta Montoya Primary Care Unavailable Jb Grady Attending Unavailable Netta Montoya Primary Care Unavailable Jb Grady Admitting Unavailable Netta Montoya MD Primary Care Provider Jb Grady APRN Attending Provider Lindsay LEVIN, Netta Calzada Primary Care Unava illaura Edouard MD, Chandra Nova Attending Unavailable Janett Balbuena DPM Attending Unavailab charbel Montoya MD, Netta Calzada Primary Care Unava ilable Netta Montoya MD Primary Care Unava ilable Silke LEVIN, Chandra Nova Attending Unavailable Netta Montoya MD Primary Care Unava ilable Silke LEVIN, Chandra Nova Attending Unavailable Lindsay LEVIN, Netta Calzada Primary Care Unava ilable Silke LEVIN, Chandra Nova Attending Unavailable Allergies Allergy Classification Reported Allergen(s) Allergy Type Date of Onset Reaction(s) Facility (20 sources) milnacipran; Translations: [Savella] Drug Allergy 09-02-20 13 SEVERE HEADACHES [facility] Repository (20 sources) Morphine; Translations: [MORPHINE] Drug Allergy 11-19-19 21 Unknown, [facility] Repository (20 sources) tiZANidine; Translations: [Zanaflex] Drug Allergy 09-02-20 13 Hallucinations [facility] Repository (17 sources) milnacipran; Translations: [MILNACIPRAN] Drug Allergy 02-10-20 17 Headache [facility] (17 sources) tiZANidine; Translations: [TIZANIDINE] Drug Allergy 02-10-20 17 Hallucination [facility] (2 sources) Morphine Drug Allergy [facility] Rep[facility] (20 sources) Vancomycin Drug Allergy 01-30-20 23 Hives [facility] (7 sources) Allergies Reconciled Propensity to adverse reactions Unknown 3 Four 5 Group Other (7 sources) [facility]ella *PSYCHOTHERAPEU TIC AND NEUROLOGICAL AGENTS Propensity to adverse reactions Unknown 3 Four 5 Group Other (1 source) ALLERGIES NOT ON FILE; Translations: [ALLERGIES NOT ON FILE] Propensity to adverse reactions (disorder) [facility] Repository (5 sources) Savella *PSYCHOTHERAPEU TIC AND Allergy to substance 10-24-19 [facility] Comment on above: Free Text Allergy: [...] day with plain water Orally Active amylase 608826 unt / lipase 11940 unt / protease 153321 unt delayed release oral capsule (14 sources) Start: 01-16-2024 take 2 capsules by mouth three times daily at mealtime, then take 1 capsule by mouth four times daily Otkrhr-Jumtawqc-Fqh lase (Creon) 36,000-114,000- 180,000 unit capsule,delayed release(DR/EC) [...] capsule by mouth four times daily Creon [id number] UNIT 2 capsules three times a day with meals and 1 capsule with a snack Orally four times a day for 30 days PLEASE CHECK ALLERGIES January, Active ascorbic acid 1000 mg oral tablet (11 sources) Vitamin C Start: 10-24-2023 take 1 [...] 10 mg oral tablet (2 sources) Biotin 07468 MCG tablet Take by mouth. 0 Active Calcium (15 sources) Phosphate Binder, Calcium Calciu m + D Active Calcium Carb-Cholecalciferol (CALCIUM + D3 PO) (7 sources) Calcium Carb-Cholecalciferol (CALCIUM + D3 PO) Take by mouth daily. Active Calcium Carb-Cho lecalciferol (CALCIUM + D3 PO) Take by mouth daily. 0 Active celecoxib 200 mg oral capsule (20 sources) Nonsteroidal Anti-inflammatory Drug Start: 12-22-2024 Celecoxib 200 mg capsule Active 0 .ROUTE .COMPLEX 180 December 22, 2024 4:25pm TAKE 2 CAPSULES DAILY Start: 11-10-2024 End: 12-22-2024 Celecoxib 200 mg capsule Discontinued 0 .ROUTE .COMPLEX 180 November 10, 2024 11:54am December 22, 2024 4:26pm TAKE 2 CAPSULES DAILY Start: 11-10-2024 Celecoxib 200 mg capsule Active [...] day Active cholecalciferol 0.025 mg oral capsule (15 sources) Vitamin D Start: 024 Cholecalciferol (Vitamin D3) 25 mcg (1,000 unit) capsule Active PO October 24, 2023 1:00am FreeTextSi/2 DAILY IN SUMMER Orally Once a day; Note: Source Status: Taking; Provider: Lindsay Cm ( ) Cholecalciferol 250 MCG (46562 UT) capsule capsule Take by mouth daily. Active Cholecalciferol 250 MCG (13953 UT) capsule capsule Take by mouth. 0 [...] Active dicyclomine hydrochloride 10 mg oral capsule (20 sources) Anticholinergic Start: 12-26-2024 take 1 capsule by mouth three times daily Dicyclomine 10 mg capsule Active 10 MG PO Three times daily 270 90 December 26, 2024 12:00am Start: 08-29-2024 End: 09-30-2024 Dicyclomine 10 mg [...] 17, 2024 3:33pm take 1 capsule by [facility] every eight hours Dicyclomine HCl 10 MG 1 capsules Orally Three times a day Active take 1 tablet by [facility] every six hours Dicyclomine 20 MG tablet Take 1 tablet by mouth every 6 hours. 0 Active docusate sodium 100 mg oral capsule (19 sources) Start: 04-21-2024 End: 04-21-2024 take 1 capsule by mouth once daily Docusate Sodium (Colace) 100 mg capsule Active 100 MG PO Daily April 21, 2024 10:59am Start: 01-29-2023 take 1 capsule by [facility] twice daily Docusate 100 MG capsule Take 1 capsule by mouth 2 times daily. 60 capsule 01/29/2023 Active take 1 capsule by [facility] twice daily Docusate (Stool Softener) 100 MG [...] Insulin) 100 unit/mL (3 mL) insulin pen (8 sources) Start: 11-05-2024 Insulin Aspart U-100 (Novolog [...] (5 sources) Multivitamin Act ag Multivitamin tablet (5 sources) Start: 07-29-2024 take 1 tablet by mouth once daily Multivitamin tablet Active 1 TAB PO Daily July 29, 2024 1:00am Start: 07-29-2024 take 1 tablet by wililam th once daily Multivitamin tablet Active 1 TAB PO Daily July 29, 2024 12:00am Multivitamin/Iron (5 sources) Multivitamin/Iro n Active nabumetone 750 mg oral tablet (2 sources) Nonsteroidal Anti-inflammatory Drug Start: 2022 nabumetone 750 MG tablet naloxone hydrochloride 40 mg/ml nasal spray (4 sources) Opioid Antagonist Start: 2022 End: 2022 naloxone 4 MG/0.1ML 1 spray by Nasal route once for 1 dose. Arvonia into the nose as directed. Call 911. If no response in 2 minutes use a new nasal spray in other nostril. Repeat until help arrives. 1 Each 01/29/2023 Active Sparks 3 (5 sources) Sparks 3 Active omeprazole 40 mg delayed release oral capsule (20 sources) Proton Pump Inhibitor Start: 2024 take 1 capsule by mouth once daily Omeprazole 40 mg capsule,delayed release(DR/EC) Active 40 MG PO Daily December 26, 2024 12:00am Start: 10-24-2023 End: 09-30-2024 take 1 capsule by mouth once daily Omeprazole 20 mg capsule,delayed release(DR/EC) Discontinued 20 MG PO Daily April 21, 2024 12:00am September 30, 2024 2:57pm Omeprazole [address] tablet Take by mouth daily. Active take 1 capsule by [facility] once daily Omeprazole 10 MG 1 capsule 30 minutes before morning meal Orally Once a day Active OneTouch Ultra 2 w/Device (18 sources) OneTouch Ultra 2 w/Device as directed Active oxybutynin chloride 5 mg oral tablet (20 sources) Cholinergic Muscarinic Antagonist Start: 04-21-2024 take 1 tablet by mouth once daily Oxybutynin Chloride 5 mg tablet Active 5 MG PO Daily April 21, 2024 12:00am Start: 02-29-2024 End: 04-21-2024 take 1 tablet by mouth once daily Oxybutynin Chloride 5 mg tablet extended release 24hr Discontinued 5 MG PO Daily February 29, 2024 12:21pm April 21, 2024 11:00am take 1 tablet by [facility] three times daily as needed Oxybutynin Chloride [...] 2 MG/1.5ML as directed Subcutaneous Active Pancrelipase, Jpz-Jihv-Rtaz, (CREON PO) (7 sources) take 1 tablet by mouth once daily Pancrelipase, Hmv-Mwle-Hmzq, (CREON PO) Take 36,000 Units by mouth. 2 tablet by mouth with each meal, 1 tablet by mouth with 1 snack daily Active take 1 tablet by mouth once alannah y Pancrelipase, Hme-Ukfj-Nfcp, (CREON PO) Take 36,000 Units by mouth. [...] (Resistance Formula Probiotic) 10 billion cell capsule (5 sources) Start: 04-21-2024 take 10 capsules by mouth once daily Saccharomyces Boulardii (Resistance Formula Probiotic) 10 billion cell capsule Active 20884 MMU CELLS PO Daily April 21, 2024 12:00am Start: 04-21-2024 take 10 capsules by mouth once daily Saccharomyces Boulardii (Resistance Formula Probiotic) 10 billion cell capsule Active 28172 MMU CELLS PO Daily April 20, 2024 11:00pm Selenium (5 sources) Selenium Active SITagliptin 100 mg oral tablet (10 sources) Dipeptidyl Peptidase 4 Inhibitor Start: take 1 tablet by mouth once daily Sitagliptin Phosphate (Januvia) 100 mg tablet Active 100 MG PO Daily September 30, 2024 1:00am Start: 04-03-2023 take 1 tablet by william every twenty-four hours Januvia 100 MG 1 [...] (15 sources) Stool Softener A ctive thyroid (MCFP) (5 sources) Nature-Throid Ac tive Tumeric (5 sources) Start: 04-21-2024 Tumeric Active PO April [...] Sep, Active zonisamide 50 mg oral capsule (5 sources) Anti-epileptic Agent Start: 09-30-2024 take 1 capsule by mouth twice daily Zonisamide 50 mg capsule Active 50 MG PO Twice daily September 30, 2024 1:00am Completed/Discontinued Medications Medication Drug Class(es) Dates Sig (Normalized) Sig (Original) amoxicillin 875 mg / clavulanate 125 mg oral tablet (8 sources) Penicillin-class Antibacterial Start: 12-10-2024 End: 12-26-2024 take 1 tablet by mouth twice daily Amoxicillin-Pot Clavulanate 875-125 mg tablet Discontinued 1 TAB PO Twice daily December 10, 2024 12:00am December 26, 2024 10:11am Start: 01-29-2024 End: 02-11-2024 take 1 tablet by mouth twice daily Amoxicillin-Pot Clavulanate 875-125 mg tablet Discontinued 1 TAB PO Twice daily 29 06January 29, 2024 12:00am February 11, 2024 11:23am azithromycin 250 mg oral tablet (5 sources) Macrolide Antimicrobial Start: 12-13-2023 End: 01-16-2024 Azithromycin 250 mg tablet Discontinued 0 PO .COMPLEX December 13, 2023 12:00am January 16, 2024 10:46am For 250 mg dose pack: take 500 mg today (day 1), then 250 mg for 4 days (days 2-5) PO baclofen 10 mg oral tablet (17 sources) gamma-Aminobutyric Acid-ergic Agonist Start: 07-17-2024 End: [...] day Active benzonatate 200 mg oral capsule (5 sources) Non-narcotic Antitussive Start: 01-29-2024 End: 02-18-2024 take 1 capsule by mouth three times daily as needed for cough Benzonatate 200 mg capsule Discontinued 200 MG PO Three times daily as needed for cough 30 January 29, 2024 12:00am February 18, 2024 10:32am cyclobenzaprine hydrochloride 5 mg oral tablet (7 sources) Muscle Relaxant Start: 08-13-2023 End: 01-16-2024 take 1 tablet by mouth once daily at bedtime Cyclobenzaprine 5 mg tablet Discontinued 1 TAB PO Daily at bedtime October 24, 2023 1:00am January 16, 2024 10:46am FreeTextSi tablet at bedtime as needed Orally Once a day; Note: Source Status: Start; Provider: Lindsay Conti dextromethorphan hydrobromide 3 mg/ml / promethazine hydrochloride 1.25 mg/ml oral solution (5 sources) Phenothiazine, Uncompetitive J-wfousp-W-aspartat e Receptor Antagonist, Sigma-1 Agonist Start: 01-23-2024 End: 01-29-2024 take 1 mL by mouth every four to six hours as needed for cough Promethazine-Dm 6.25-15 mg/5 mL syrup Discontinued 5 ML PO EVERY 4-6 HOURS as needed for cough 118 January 23, 2024 12:00am January 29, 2024 11:21am doxepin hydrochloride 100 mg oral capsule (5 sources) Tricyclic Antidepressant take 1 capsule by mouth every twenty-four hours Doxepin HCl 100 MG 1 capsule at bedtime Orally Once a day Not-Taking doxycycline monohydrate 100 mg oral tablet (5 sources) Tetracycline-class Drug Start: 01-23-2024 End: 01-29-2024 take 1 tablet by mouth twice daily Doxycycline Monohydrate 100 mg tablet Discontinued 100 MG PO Twice daily 20 January 23, 2024 12:00am January 29, 2024 11:21am DULoxetine (5 sources) Serotonin and Norepinephrine Reuptake Inhibitor take 1 capsule by mouth once daily Cymbalta 90 MG 1 capsule Orally Once a day for 30 day(s) Not-Taking eszopiclone 3 mg oral tablet (20 sources) Start: 10-24-2023 End: 10-21-2024 take 1 tablet by mouth once daily at bedtime Eszopiclone (Lunesta) 3 mg tablet Discontinued 3 MG PO Daily at bedtime April 21, 2024 12:00am July 15, 2024 11:01am take 1 tablet by mouth once alannah y eszopiclone 2 MG tablet Take 1 tablet by mouth daily. 0 Active fluconazole 150 mg oral tablet (5 sources) Azole Antifungal Start: 02-11-2024 End: 04-21-2024 Fluconazole 150 mg tablet Discontinued 150 MG PO Q3D 2 0 February 11, 2024 12:00am April 21, 2024 10:45am Take 1st dose at onset of symptoms then repeat in 3 days if continued symptoms fluticasone propionate 0.05 mg/actuat metered dose nasal spray (10 sources) Corticosteroid Start: 02-18-2024 End: 07-17-2024 take [...] tablet (20 sources) l-Thyroxine Start: 03-24-2024 End: 12-22-2024 Levothyroxine 100 mcg tablet Discontinued 0 .ROUTE .COMPLEX September 30, 2024 1:55pm December 22, 2024 4:26pm TAKE 1 TABLET ONCE DAILY Start: 03-07-2024 End: 03-24-2024 Levothyroxine 112 [...] Lindsay Conti take 1 tablet by william th every [...] day Active linaclotide 0.072 mg oral capsule (15 sources) Guanylate Cyclase-C Agonist Start: 09-30-2024 End: [...] day Active loratadine 10 mg oral tablet (5 sources) Start: 02-18-2024 End: 02-18-2024 take 1 [...] Start: 01-18-2023 take 4 tablets by mo uth every twenty-four hours Mesalamine 1.2 GM 4 tablets Orally Once a day for 30 days January, Active Start: 01-18-2023 take 4 tablets by mo uth every twenty-four hours Mesalamine 1.2 GM 4 [...] tablet (20 sources) Biguanide Start: 03-07-2024 End: 12-22-2024 Metformin 1,000 mg tablet Discontinued 0 .ROUTE .COMPLEX 180 August 19, 2024 9:28am December 22, 2024 4:26pm TAKE 1 TABLET TWICE DAILY WITH MEALS Start: 08-29-2022 End: 03-07-2024 take 1 tablet by mouth twice daily Metformin 1,000 mg tablet Discontinued 1 TAB PO Twice daily October 24, 2023 1:00am March 07, 2024 11:04am FreeTextSi tablet with a meal Orally TWICE A DAY; Note: Source Status: Taking; Refills: 3; Qty: 180 Tablet; Provider: Montoya Netta E methylPREDNISolone 4 mg oral tablet (11 sources) Corticosteroid Start: 01-23-2024 End: 02-11-2024 take [...] 08/09/2023 Active Methylprednisolone 4 mg tablets,dose pack (5 sources) Start: 08-29-2024 End: 09-30-2024 Methylprednisolone 4 mg tablets,dose pack Discontinued 4 MG PO August 29, 2024 1:00am September 30, 2024 2:56pm Start: 08-29-2024 End: 09-30-2024 Methylprednisolone 4 mg tabl ets,dose pack Discontinued 4 MG PO August 29, 2024 12:00am September 30, 2024 1:56pm montelukast 10 mg oral tablet (15 sources) Leukotriene Receptor Antagonist Start: 03-17-2024 End: 04-21-2024 take 1 tablet by mouth once daily at bedtime Montelukast 10 mg tablet Discontinued 0 .ROUTE .COMPLEX March 20, 2024 11:19am April 21, 2024 10:44am TAKE 1 TABLET BY MOUTH EVERY NIGHT AT BEDTIME Start: 02-18-2024 End: 03-17-2024 take 1 tablet by mouth once daily at bedtime Montelukast (Singulair) 10 mg tablet Discontinued 10 MG PO Daily at bedtime February 18, 2024 12:00am March 17, 2024 10:25am QUEtiapine 50 mg oral tablet (5 sources) Atypical Antipsychotic take 1 tablet by mouth every twenty-four hours SEROquel 50 MG 1 tablet Orally Once a day for 30 day(s) Not-Taking Semaglutide (5 sources) Start: 12-13-19 End: 12-11-19 Semaglutide (Ozempic) [...] 4 weeks simethicone 125 mg oral capsule (5 sources) Start: 04-21-2024 End: 09-30-2024 take 1 [...] 11-30-2022 triamcinolone (KENALOG-40) i njection 1 mL ubiquinol 100 mg oral capsule (5 sources) Start: 07-29-2024 End: 12-26-2024 take 1 capsule by mouth twice daily Coq10 (Ubiquinol) (Qunol Boyd Coq10) 100 mg capsule Discontinued 100 MG PO Twice daily July 29, 2024 1:00am December 26, 2024 10:11am Zinc (20 sources) Start: 04-21-2024 End: 09-30-2024 Zinc 50 mg Discontinued PO Daily April 21, 2024 12:00am September [...] Classification Problem Date Documented Da te Episodic/Chronic Acquired foot deformities (20 sources) Acquired hammer [...] Chronic Chronic obstructive pulmonary disease and bronchiectasis (5 sources) Bronchitis; Translations: [Bronchitis, not specified as acute or chronic] 01-23-2024 Episodic Complication of device; implant or graft (20 sources) Broken internal joint prosthesis, unspecified site, subsequent encounter; Translations: [Joint pain] Episodic Complications of surgical procedures or medical care (10 sources) Complication of ventilation therapy 05-07-2024 Episodic Diabetes mellitus with complications (20 sources) Hyperglycemia due to type 2 diabetes mellitus; Translations: [Type 2 diabetes mellitus with hyperglycemia] Onset: Chronic Diabetes mellitus without complication (16 sources) [...] initial encounter] Onset: 2 Episodic Esophageal disorders (11 sources) Gastroesophageal reflux disease; Translations: [Gastro-esophageal reflux disease without esophagitis] 08-29-2024 Chronic Gastroduodenal ulcer (except hemorrhage) (18 sources) Peptic ulcer; Translations: [Peptic ulcer, site unspecified, unspecified as acute or chronic, without hemorrhage or perforation] Chronic Headache; including migraine (11 sources) Migraine with aura; Translations: [Migraine with aura, not intractable, without status migrainosus] 12-10-2024 Chronic Headache; including migraine (18 sources) Headache; [...] Episodic Inflammatory diseases of female pelvic organs (5 sources) Vaginitis; Translations: [Acute vaginitis] 02-12-2024 Episodic [...] [Meningitis, unspecified] Episodic Miscellaneous mental health disorders (10 sources) Chronic insomnia; Translations: [Psychophysiologic insomnia] 05-07-2024 Chronic Mood disorders (20 sources) Dysthymia; Translations: [Dysthymic disorder] Onset: 8 05-07-2024 Chronic Mycoses (20 sources) Candidiasis; Translations: [Candidiasis, unspecified] Onset: 3 Episodic Nutritional deficiencies (20 sources) Vitamin D deficiency; Translations: [Vitamin D deficiency, unspecified] Chronic Nutritional deficiencies (10 sources) Cobalamin deficiency; Translations: [Deficiency of other specified B group vitamins] 07-17-2024 Episodic Osteoarthritis (20 sources) Osteoarthritis; Translations: [Unspecified osteoarthritis, unspecified site] Onset: 2 Chronic Other acquired deformities (7 sources) 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; Translations: [Contracture, right ankle] Chronic Other aftercare (1 source) Other watermaster (current) drug therapy; Translations: [OTH SECURITY GUARDS DISPATCHER CURRENT DRUG THERAPY] Onset: 3 Episodic Other [...] ureter] Onset: 9 Chronic Other gastrointestinal disorders (5 sources) Irritable bowel syndrome; Translations: [Mixed irritable bowel syndrome] 08-29-2024 Chronic Other gastrointestinal disorders (8 sources) Mixed irritable bowel syndrome; Translations: [Irritable bowel syndrome] Onset: 5 08-29-2024 Chronic Other gastrointestinal disorders (20 sources) Diarrhea; Translations: [Diarrhea, unspecified] Episodic Other gastrointestinal disorders (5 sources) Diarrhea, unspecified; Translations: [DIARRHEA UNSPECIFIED] Onset: 2 Episodic Other gastrointestinal disorders (5 sources) Constipation alternates with diarrhea; Translations: [Other specified symptoms and signs involving the digestive system and abdomen] 01-16-2024 Episodic Other gastrointestinal disorders (5 sources) History of pancreatitis; Translations: [Personal history of other diseases of the digestive system] 08-29-2024 Episodic Other gastrointestinal disorders (10 sources) Abdominal bloating; Translations: [Abdominal distension (gaseous)] 04-21-2024 Episodic Other gastrointestinal disorders (2 sources) Personal history of other diseases of the digestive system; Translations: [Personal history of other diseases of digestive system] 08-29-2024 Episodic Other gastrointestinal disorders (3 sources) Fecal urgency; Translations: [Fecal urgency] Onset: 5 12-26-2024 Episodic Other gastrointestinal disorders (2 sources) Full incontinence of feces; Translations: [Full incontinence of feces] Onset: 5 12-26-2024 Episodic Other gastrointestinal disorders (2 sources) Disorder of gastrointestinal tract; Translations: [Other specified diseases of the digestive system] 12-26-2024 Episodic Other gastrointestinal disorders (2 sources) Incontinence of feces; Translations: [Full incontinence of feces] 12-26-2024 Episodic Other gastrointestinal disorders (2 sources) Urgent desire for stool; Translations: [Fecal urgency] 12-26-2024 Episodic Other gastrointestinal disorders (2 sources) Other specified diseases of the digestive system; Translations: [Other specified disorders of intestine] 12-26-2024 Episodic Other hereditary and degenerative nervous system conditions (5 sources) Restless legs; Translations: [Restless legs syndrome] 05-07-2024 Chronic Other hereditary and degenerative nervous system conditions (5 sources) Restless legs syndrome; Translations: [Restless legs [...] Chronic Other nutritional; endocrine; and metabolic disorders (5 sources) Body mass index 30+ - obesity; Translations: [Body mass index (BMI) 34.0-34.9, adult] 05-07-2024 Chronic Other nutritional; endocrine; and metabolic disorders (5 sources) Hypocalcemia; Translations: [Hypocalcemia] 07-17-2024 Chronic Other upper respiratory disease (5 sources) Nasal congestion; Translations: [Nasal congestion] 02-11-2024 Episodic Other upper respiratory infections (14 sources) Chronic sinusitis; Translations: [Chronic sinusitis, unspecified] 01-23-2024 Chronic Other upper respiratory infections (19 sources) Acute maxillary sinusitis; Translations: [Acute recurrent maxillary sinusitis] Onset: 8 12-13-2023 Episodic Pancreatic disorders (not diabetes) (2 sources) Chronic pancreatitis; Translations: [Other chronic pancreatitis] Chronic Pancreatic disorders (not diabetes) (8 sources) Other specified diseases of pancreas; Translations: [...] Onset: 3 01-24-2023 Chronic Residual codes; unclassified (12 sources) Obstructive sleep apnea syndrome; Translations: [Obstructive sleep apnea] Onset: 8 02-18-2024 Chronic Residual codes; unclassified (5 sources) Daytime somnolence; Translations: [Other hypersomnia] 05-07-2024 Chronic Residual codes; unclassified (2 sources) Other hypersomnia; Translations: [Hypersomnia, unspecified] 07-17-2024 Chronic Residual codes; unclassified (5 sources) Obstructive sleep apnea (adult) (pediatric); Translations: [...] cervical disc degeneration, unspecified cervical region] Onset: Chronic Spondylosis; intervertebral disc disorders; other back problems (20 sources) Neck pain; Translations: [Cervicalgia] Onset: 8 Episodic Substance-related disorders (10 sources) Hypnotic dependence; Translations: [Sedative, hypnotic or [...] Translations: [Unspecified abdominal pain] Onset: 03-28-2022 Episodic Bacterial infection; unspecified site (7 sources) Bartonellosis; 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, 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 01-24-2023 Episodic Nausea and vomiting (11 sources) Nausea; Translations: [Nausea] Onset: 08-29-2024 08-29-2024 Episodic Other aftercare (7 sources) Surgical follow-up; [...] foot] Onset: 12-26-2023 Episodic Other gastrointestinal disorders (8 sources) Other specified symptoms and signs involving the digestive system and abdomen; Translations: [OTH SPEC SX SIGNS DIGESTV SYS ABD] Onset: 01-18-2023 Episodic Other gastrointestinal disorders (8 sources) Abdominal distension (gaseous); Translations: [Flatulence, eructation, and gas pain] Onset: 08-29-2024 08-29-2024 Episodic Other infections; including parasitic (20 sources) [...] Test Name Value Interpretation Reference Range Facility X-ray reportOrdered By: David Sims on 12-26-2024 Study report [facility] Main [address] [address] XRay Report Signed Patient: Emily Macias MR#: [id number] : 1960 Acct:[id number] Age/Sex: 64 / F ADM Date: 5 Loc: XD Room: Type: REG CLI Attending 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 COMPARISON: KUB 08/29/2024 FINDINGS: Moderate stool burden particularly involving the right colon. No small bowel obstruction or free air. Osseous structures demonstrate degenerative change. XR/XR KUB IMPRESSION: EVIDENCE OF CONSTIPATION. Impression dictated by: Bar Sims Jr., D.OMonalisa12/26/2024 1:42 PM Dictation Location: [place] [address] Transcribed By: [facility] 12/26/24 1342 Dictated By: Bar Sims Jr, DO 12/26/24 1342 Signed By: 12/26/24 1342 [facility] XR KUBon 12-26-2024 XR KUB [address] [address] XRay Report Signed Patient: Emily Macias MR#: [id number] : 1960 Acct:[id number] Age/Sex: 64 / F ADM Date: 12/26/24 Loc: XD Room: Type: REG CLI Attending Dr: Jb Grady APRN Copies to: Jb Grady APRN Ordering Provider: Jb Grady APRN Date of Service: 12/26/24 XR/XR KUB: R15.2 - Fecal urgency KUB: CLINICAL INFORMATION: Sharp pain right upper quadrant. COMPARISON: KUB 08/29/2024 FINDINGS: Moderate stool burden particularly involving the right colon. No small bowel obstruction or free air. Osseous structures demonstrate degenerative change. XR/XR KUB IMPRESSION: EVIDENCE OF CONSTIPATION. Impression dictated by: Bar Sims Jr., D.O.12/26/2024 1:42 PM Dictation Location: [place] [address] Transcribed By: [facility] 12/26/24 1342 Dictated By: Bar Sims Jr, DO 12/26/24 1342 Signed By: 12/26/24 1342 Normal [facility] Basophils Auto (Bld) [#/Vol] on 11-10-2024 Basophils (Bld) [#/Vol] Automated basophil count 0.0-0.1 [facility] Basophils/100 WBC Auto (Bld) on 11-10-2024 Basophils/100 WBC (Bld) Automated basophil % 0.2-2.0 [facility] Eosinophils/100 WBC Auto (Bl d)on 11-10-2024 Eosinophils/100 WBC (Bld) Automated eosinophil % 0.9-7.0 [facility] Erythrocyte distribution wid th Auto (RBC) [Ratio]on 11-10-2024 Erythrocyte distribution width (RBC) [Ratio] Erythrocyte distribution width [Ratio] by Automated count 11.0-15.0 [facility] Estimated glomerular filtrat ion rate (GFR) non- Americanon 11-10-2024 GFR/1.73 sq M.predicted among non-blacks MDRD (S/P/Bld) [Vol rate/Area] Estimated glomerular filtration rate (GFR) non- >=60 mL/min/1.73m 2 [facility] Globulin Calc (S) [Mass/Vol] on 11-10-2024 Globulin (S) [Mass/Vol] Serum globulin measurement by calculation (mass/volume) [facility] Hematocrit Auto (Bld) [Volum e fraction]on 11-10-2024 Hematocrit (Bld) [Volume fraction] Hematocrit [Volume Fraction] of Blood by Automated count 36.0-48.0 [facility] Hemoglobin [Mass/volume] in Bloodon 11-10-2024 Hemoglobin (Bld) [Mass/Vol] Hemoglobin [Mass/volume] in Blood 12.0-16.0 [facility] Laboratory - Chemistry and C hemistry - challengeon 11-10-2024 Albumin [Mass/Vol] 3.7 g/dL 3.4-5.0 [facility] ALP [Catalytic activity/Vol] 81 U/L 46-116 [facility] ALT [Catalytic activity/Vol] 23 U/L 14-59 [facility] AST [Catalytic activity/Vol] 18 U/L 15-37 [facility] Bilirubin [Mass/Vol] 0.3 mg/dL 0.2-1.0 [facility] Calcium [Mass/Vol] 9.6 mg/dL 8.5-10.1 [facility] Chloride [Moles/Vol] 105 mmol/L 98-107 [facility] CO2 [Moles/Vol] 30.0 mmol/L 21.0-32.0 [facility] Creatinine [Mass/Vol] 0.80 mg/dL 0.55-1.02 [facility] GFR/1.73 sq M.predicted MDRD (S/P/Bld) [Vol rate/Area] mL/min/{1.73_m2} >=60 mL/min/1.73m 2 [facility] Glucose [Mass/Vol] 110 mg/dL High 74-106 [facility] Potassium [Moles/Vol] 4.9 mmol/L 3.5-5.1 [facility] Protein [Mass/Vol] 7.1 g/dL 6.4-8.2 [facility] Sodium [Moles/Vol] 144 mmol/L 136-145 [facility] Urea nitrogen [Mass/Vol] 21.0 mg/dL High 7.0-18.0 [facility] Urea nitrogen/Creatinine [Mass ratio] 26.3 mg/mg [facility] Laboratory - Hematology and Cell countson 11-10-2024 Immature granulocytes/100 WBC (Bld) 0.3 % 0.0-0.5 [facility] Leukocytes [#/volume] correc penelope for nucleated erythrocytes in Blood by Automated counon 11-10-2024 WBC corrected for nucl RBC Auto (Bld) [#/Vol] Leukocytes [#/volume] corrected for nucleated erythrocytes in Blood by Automated coun 4.0-11.0 [facility] Lymphocytes Auto (Bld) [#/Vo l]on 11-10-2024 Lymphocytes (Bld) [#/Vol] Lymphocytes [#/volume] in Blood by Automated count 1.2-3.8 [facility] Lymphocytes/100 WBC Auto (Bl d)on 11-10-2024 Lymphocytes/100 WBC (Bld) Lymphocytes/100 leukocytes in Blood by Automated count 20.5-60.0 [facility] MCH Auto (RBC) [Entitic mass ]on 11-10-2024 MCH (RBC) [Entitic mass] MCH [Entitic mass] by Automated count 26.7-34.0 [facility] MCHC Auto (RBC) [Mass/Vol]on 11-10-2024 MCHC (RBC) [Mass/Vol] MCHC [Mass/volume] by Automated count 29.9-35.2 [facility] MCV Auto (RBC) [Entitic vol] on 11-10-2024 MCV (RBC) [Entitic vol] MCV [Entitic volume] by Automated count 81.0-99.0 [facility] Monocytes Auto (Bld) [#/Vol] on 11-10-2024 Monocytes (Bld) [#/Vol] Automated blood monocyte count 0.3-0.8 [facility] Monocytes/100 WBC Auto (Bld) on 11-10-2024 Monocytes/100 WBC (Bld) Automated monocyte % 1.7-12.0 [facility] Neutrophils Auto (Bld) [#/Vo l]on 11-10-2024 Neutrophils (Bld) [#/Vol] Neutrophils [#/volume] in Blood by Automated count 1.4-6.5 [facility] Neutrophils/100 WBC Auto (Bl d)on 11-10-2024 Neutrophils/100 WBC (Bld) Automated neutrophil % 43.0-75.0 [facility] No Panel Informationon 11-10 Eosinophils # (Auto) 0.2 10 3/uL 0.0-0.7 [facility] Immature Granulocyte # (Auto) 0.02 10 3/uL 0.00-0.03 [facility] Platelet mean volume Auto (B ld) [Entitic vol]on 11-10-2024 Platelet mean volume (Bld) [Entitic vol] Platelet mean volume [Entitic volume] in Blood by Automated count 9.5-13.5 [facility] Platelets Auto (Bld) [#/Vol] on 11-10-2024 Platelets (Bld) [#/Vol] Platelets [#/volume] in Blood by Automated count 150-450 [facility] RBC Auto (Bld) [#/Vol]on RBC (Bld) [#/Vol] Erythrocytes [#/volume] in Blood by Automated count 4.20-5.40 [facility] Serum or plasma albumin/glob ulin mass ratioon 11-10-2024 Albumin/Globulin [Mass ratio] Serum or plasma albumin/globulin mass ratio [facility] Serum or plasma anion gap de terminationon 11-10-2024 Anion gap [Moles/Vol] Serum or plasma an ion gap determination [facility] Campy coli+jejuni BD MaxOrde red By: Jb Grady on 09-30-2024 C. coli+jejuni tuf gene DAISY+probe Ql (Stl) Campy coli+jejuni BD Max Negative [facility] Comment on above: Campylobacter test i ncludes C. jejuni and C. coli. Clostridioides difficile tox in B tcdB gene [Presence] in Stool by DAISY with probe deteOrdered By: Jb Grady on 09-30-2024 C. difficile toxin B tcdB gene DAISY+probe Ql (Stl) Clostridioides difficile toxin B tcdB gene [Presence] in Stool by DAISY with probe dete Negative [facility] Comment on above: Testing performed by RT-PCR Clostridium Difficileon 09-11 Clostridium Difficile Negative Normal Negative [facility] Comment on above: Result Comment: Test ing performed by RT-PCR PERFORMED BY: [place] [address] PATHOLOGIST INTERNATIONAL NURSE BENNY ARAUJO M.D. Performed By: #### S TCYRPTOAG, GIARDIA #### [facility] , #### CDT, ENT BACT PANEL #### [facility] [address] [place] [address] Cryptosporidium Antigen Stoo kristofer 09-30-2024 Cryptosporidium Antigen Stool Negative Normal Negative [facility] Comment on above: Order Comment: SOURC E OF SPECIMEN: STOOL Performed By: #### S TCYRPTOAG, GIARDIA #### [facility] , #### CDT, ENT BACT PANEL #### [address] Cryptosporidium sp Ag [Prese nce] in Stool by ImmunoassayOrdered By: Jb Grady on 09-30-2024 Cryptosporidium sp Ag IA Ql (Stl) Cryptosporidium sp Ag [Presence] in Stool by Immunoassay Negative [facility] Giardia Lamblia Ag EIA Stool on 09-30-2024 Giardia Lamblia Ag EIA Stool Negative Normal Negative [facility] Comment on above: Order Comment: SOURC E OF SPECIMEN: STOOL Result Comment: Perf ormed at: [facility] [address] [id number] [place] Alarm Assembler: Tra Bay PhD, Phone: [phone] PERFORMED BY: [place] [address] PATHOLOGIST INTERNATIONAL NURSE BENNY ARAUJO M.D. Performed By: #### S TCYRPTOAG, GIARDIA #### [facility] , #### CDT, ENT BACT PANEL #### [facility] [address] [place] [address] Giardia lamblia Ag [Presence ] in Stool by ImmunoassayOrdered By: Jb Grady on 09-30-2024 G. lamblia Ag IA Ql (Stl) Giardia lamblia Ag [Presence] in Stool by Immunoassay Negative [facility] Comment on above: Performed at: - [address] [id number] Director: Tra Bay PhD, Phone: [phone] Salmonellosis BD MaxOrdered By: Jb Grady on 09-30-2024 Salmonella sp spaO gene DAISY+probe Ql (Stl) Salmonella sp spaO gene [Presence] in Stool by DAISY with probe detection Negative [facility] Comment on above: Testing performed by RT-PCR Shigella Tox 1+2 BD MaxOrder ed By: Jb Grady on 09-30-2024 E. coli stx1+stx2 genes DAISY+probe Ql (Stl) Escherichia coli Stx1 and Stx2 toxin stx1+stx2 genes [Presence] in Stool by DAISY with Negative [facility] Shigellosis BD MaxOrdered By : Jb Grady on 09-30-2024 Shigella species+EIEC invasion plasmid antigen H ipaH gene DAISY+probe Ql (Stl) Shigella species+EIEC invasion plasmid antigen H ipaH gene [Presence] in Stool by DAISY Negative [facility] Comment on above: Shigella sp. test in cludes Shigella species and Enteroinvasive E. coli (EIEC). Stool Bacterial Panelon 09-11 Campylobacter Negative Normal Negative [facility] Comment on above: Result Comment: Camp ylobacter test includes C. jejuni and C. coli. Performed By: #### S TCYRPTOAG, GIARDIA #### [facility] , #### CDT, ENT BACT PANEL #### [address] Salmonella Species Negative Normal Negative [facility] Comment on above: Result Comment: Test ing performed by RT-PCR PERFORMED BY: [place] [address] PATHOLOGIST INTERNATIONAL NURSE BENNY ARAUJO M.D. Performed By: #### S TCYRPTOAG, GIARDIA #### [facility] , #### CDT, ENT BACT PANEL #### [facility] [address] Shiga Toxin (E coli O157+oth) Negative Normal Negative [facility] Comment on above: Performed By: #### S TCYRPTOAG, GIARDIA #### [facility] , #### CDT, ENT BACT PANEL #### [address] Shigella Species Negative Normal Negative [facility] Comment on above: Result Comment: Shig brandy sp. test includes Shigella species and Enteroinvasive E. coli (EIEC). Performed By: #### S TCYRPTOAG, GIARDIA #### [facility] , #### CDT, ENT BACT PANEL #### [address] 36on 09-18-2024 36 LVM for pt to call clinic to schedule consult with Dr. Leavitt for Surgical intervention vs SCS. Please let racebook writer or Nayana Crenshaw MA know when scheduled so we may notify [employer] reps. Normal [facility] XR KUBon 08-29-2024 XR KUB [facility] Main Era [address] [place] [address] XRay Report Signed Patient: Emily Macias MR#: [id number] : 1960 Acct:[id number] Age/Sex: 63 / F ADM Date: 08/29/24 Loc: Room: Type: [facility] Attending Dr: Jb Grady APRN Copies [...] PROCESS. Impression dictated by: Bar Sims Jr., DNithya08/29/2024 3:27 PM Dictation Location: [facility]--22 Transcribed By: FLYNN 08/29/241526 Dictated By: Bar Sims Jr, DO 08/29/24 152 Signed By: 08/29/24 152 Normal [facility] HbA1c HPLC (Bld) [Mass fract ion]on 07-29-2024 HbA1c (Bld) [Mass fraction] Hemoglobin A1c/Hemoglobin.total in Blood by HPLC [facility] Estimated glomerular filtrat ion rate (GFR) non- Americanon 07-17-2024 GFR/1.73 sq M.predicted among non-blacks MDRD (S/P/Bld) [Vol rate/Area] Estimated glomerular filtration rate (GFR) non- >=60 mL/min/1.73m 2 [facility] Globulin Calc (S) [Mass/Vol] on 07-17-2024 Globulin (S) [Mass/Vol] Serum globulin measurement by calculation (mass/volume) [facility] Iron binding capacity [Mass/ volume] in Serum or Plasmaon 07-17-2024 Iron binding capacity [Mass/Vol] Iron binding capacity [Mass/volume] in Serum or Plasma 250.0-450.0 [facility] Iron saturation [Mass Fracti on] in Serum or Plasmaon 07-17-2024 Iron saturation [Mass fraction] Iron saturation [Mass Fraction] in Serum or Plasma [facility] Laboratory - Chemistry and C hemistry - challengeon 07-17-2024 Albumin [Mass/Vol] 3.8 g/dL 3.4-5.0 [facility] ALP [Catalytic activity/Vol] 81 U/L 46-116 [facility] ALT [Catalytic activity/Vol] 21 U/L 14-59 [facility] AST [Catalytic activity/Vol] 18 U/L 15-37 [facility] Bilirubin [Mass/Vol] 0.4 mg/dL 0.2-1.0 [facility] Calcium [Mass/Vol] 9.2 mg/dL 8.5-10.1 [facility] Chloride [Moles/Vol] 105 mmol/L 98-107 [facility] CO2 [Moles/Vol] 24.1 mmol/L 21.0-32.0 [facility] Cobalamin (Vitamin B12) [Mass/Vol] 887 pg/mL 232-1245 [facility] Comment on above: Performed at: - [address] [id number] Director: Tra Bay PhD, Phone: [phone] Creatinine [Mass/Vol] 0.84 mg/dL 0.55-1.02 [facility] Ferritin [Mass/Vol] 63.0 ng/mL 8.0-252.0 [facility] Free T4 [Mass/Vol] 1.23 ng/dL 0.76-1.46 [facility] GFR/1.73 sq M.predicted MDRD (S/P/Bld) [Vol rate/Area] mL/min/{1.73_m2} >=60 mL/min/1.73m 2 [facility] Glucose [Mass/Vol] 150 mg/dL High 74-106 [facility] Iron [Mass/Vol] 63.0 ug/dL 50.0-170.0 [facility] Potassium [Moles/Vol] 4.2 mmol/L 3.5-5.1 [facility] Protein [Mass/Vol] 7.1 g/dL 6.4-8.2 [facility] Sodium [Moles/Vol] 141 mmol/L 136-145 [facility] TSH Qn 0.749 m[IU]/L 0.358-3.740 [facility] Urea nitrogen [Mass/Vol] 21.0 mg/dL High 7.0-18.0 [facility] Urea nitrogen/Creatinine [Mass ratio] 25.0 mg/mg [facility] No Panel Informationon 07-17 25-Hydroxy Vitamin D Total 80.1 ng/mL [facility] Comment on above: <20 ng/mL Vit D defi cient20-<30 ng/mL Vit D alzvdpzpeycx03-545 ng/mL Vit D sufficient>100 ng/mL Potential Toxicity Serum or plasma albumin/glob ulin mass ratioon 07-17-2024 Albumin/Globulin [Mass ratio] Serum or plasma albumin/globulin mass ratio [facility] Serum or plasma anion gap de terminationon 07-17-2024 Anion gap [Moles/Vol] Serum or plasma an ion gap determination [facility] No Panel Informationon 02-26 Radiology Study observation (narrative) [facility] LARGE JOINT/BURSA INJECTION AND/OR ASPIRATION: L kneeon [...] complications The patient was prepped with Chloraprep. [facility] Sagar Krause MD 02/27/2024 1:38 PM LARGE [...] MG/ML The patient was prepped with Betadine. [facility] No Panel Informationon 02-20 [facility] Glucose Glucometer (BldC) [M ass/Vol]Ordered By: Siva Ron on 05-09-2023 Glucose [Mass/Vol] 136 mg/dL [facility] Comment on above: Random Glucose Refer ence Range is dependent on time and content of last meal. Glucose of more than 200 mg/dL in a nonstressed, ambulatory subject supports the diagnosis of Diabetes Mellitus. No Panel InformationOrdered By: Siva Ron on 05-09-2023 Bedside Glucose Comment Glu2: cleaned meter [facility] PANCREATIC ELASTASE FECALon 01-22-2023 Pancreatic Elastase, Fecal 128 ug Elast./g Critically low >200 [facility] Comment on above: Result Comment: Jihan re Pancreatic Insufficiency: <100 Moderate Pancreatic Insufficiency: 100 - 200 Normal: >200 Performed By: #### H PYLORI #### [facility] [address] [place] [address] [address] Irene Cedillo LACTOFERRIN FECAL QUANTon Lactoferrin, [...] (IBS). Performed By: #### S EDR #### [facility] [address] [place] [address] [address] Irene Cedillo CALPROTECTIN, FECALon 2022 Calprotectin, Fecal 139 ug/g Critically high 0-120 [facility] Comment on above: Result Comment: Conc entration Interpretation Follow-Up <16 - 50 ug/g Normal None >50 -120 ug/g Borderline Re-evaluate in 4-6 weeks >120 ug/g Abnormal Repeat as clinically indicated Performed By: #### H PYLORI #### [facility] [address] [place] [address] Dr. Irene Cedillo PANCREATIC ELASTASE FECALon 01-15-2023 Pancreatic Elastase, Fecal 161 ug Elast./g Critically low >200 [facility] Comment on above: Result Comment: Jihan re Pancreatic Insufficiency: <100 Moderate Pancreatic Insufficiency: 100 - 200 Normal: >200 Performed By: #### A NTI-NICOLLE #### [facility] [address] [place] [address] Dr. Irene Cedillo TSHon 01-09-2023 TSH 1.630 uIU/mL Normal 0.358-3.[address] [facility] Comment on above: Performed By: #### T SH #### [facility] [address] [place] [address] Dr. Irene Cedillo ANTIHISTIONE ANTIBODIESon Anti-histone Abs 0.5 Units Normal 0.0-0.9 [facility] Comment on above: Result Comment: Nega tive <1.0 Weak Positive 1.0 - 1.5 Moderate Positive 1.6 - 2.5 Strong Positive >2.5 Performed By: #### C K, CRP #### [facility] [address] [place] [address] Dr. Irene Cedillo LARGE JOINT/BURSA INJECTION AND/OR [...] complications The patient was prepped with Betadine. [facility] Radiology Study observation (narrative) [facility] US PELVIS AND TRANSVAGon US PELVIS AND TRANSVAG EXAM: US PELVIS AND TRANSVAG HISTORY: Left lower quadrant pain COMPARISON: None. TECHNIQUE: Pelvic sonography was performed utilizing grayscale and color Doppler technique. FINDINGS/ IMPRESSION: 1. Hysterectomy. 2. Ovaries not visualized. 3. No adnexal mass. 4. No significant free fluid. Electronically authenticated by: BRI BERGER Date: 2022-11-10 15:54 Normal [facility] LUPUS ANTICOAGULANT PROFILEo n 10-27-2022 Anticardiolipin Ab, IgG <10 Normal [facility] Comment on above: Result Comment: Refe rence Range: Negative: <15 Indeterminate: 15 - 20 Low to medium positive: >20 - 80 High positive: >80 Performed By: #### L UPUSAC #### [facility] [address] [place] [address] [address] Irene Cedillo Anticardiolipin Ab, IgM <10 Normal [facility] Comment on above: Result Comment: Refe rence Range: Negative: <13 Indeterminate: 13 - 20 Low to medium positive: >20 - 80 High positive: >80 Performed By: #### L UPUSAC #### [facility] [address] [place] [address] [address] Irene Cedillo APTT 1:1 RESEARCH ENVIRONMENTAL ENGINEER NIY [facility] Comment on above: Result Comment: Test ing Not Indicated This test was developed and its performance characteristics determined by [facility]. It has not been cleared or approved by the [place] Food and Drug Administration. Performed By: #### L UPUSAC #### [facility] [address] [place] [address] [address] Irene Cedillo APTT 1:1 Saline NIY Normal [facility] Comment on above: Result Comment: Test ing Not Indicated This test was developed and its performance characteristics determined by [facility]. It has not been cleared or approved by the [place] Food and Drug Administration. Performed By: #### L UPUSAC #### [facility] [address] [place] [address] [address] Irene Cedillo aPTT Coag (Bld) [Time] 23.0 s [facility] Comment on above: Result Comment: This test has not been validated for monitoring unfractionated heparin therapy. aPTT-based therapeutic ranges for unfractionated heparin therapy have not been established. Consider ordering Heparin anti-Xa (unfractionated). Reference Range: 18 years and older: 22.9 - 30.2 Performed By: #### L UPUSAC #### [facility] [address] [address] [address] Irene Cedillo Beta-2 Glycoprotein I, IgA <10 Normal [facility] Comment on above: Result Comment: The reference interval reflects a 3SD or 99th percentile interval. Reference Range: Negative: <26 Performed By: #### L UPUSAC #### [facility] [address] [address] [address] Irene Cedillo Beta-2 Glycoprotein I, IgG <10 Normal [facility] Comment on above: Result Comment: The reference interval reflects a 3SD or 99th percentile interval. Reference Range: Negative: <21 Performed By: #### L UPUSAC #### [facility] [address] [place] [address] Dr. Irene Schmitz-2 Glycoprotein I, IgM <10 Normal [facility] Comment on above: Result Comment: The reference interval reflects a 3SD or 99th percentile interval. Reference Range: Negative: <33 Performed By: #### L UPUSAC #### [facility] [address] [place] [address] Dr. Irene Cedillo DRVVT Confirm Seconds NIY Normal [facility] Comment on above: Result Comment: Test ing Not Indicated Performed By: #### L UPUSAC #### [facility] [address] [place] [address] Dr. Irene Cedillo DRVVT Ratio NIY Normal [facility] Comment on above: Result Comment: Test ing Not Indicated Performed By: #### L UPUSAC #### [facility] [address] [address] [address] Irene Cedillo DRVVT Screen Seconds 33.2 sec Normal [facility] Comment on above: Result Comment: Refe rence Range: <= 47.0 Performed By: #### L UPUSAC #### [facility] [address] [place] [address] Dr. Irene Cedillo Hexagonal Phospholipid Neutral 0 sec Normal [facility] Comment on above: Result Comment: This value is NEGATIVE. This is a qualitative assay and is therefore reported as positive for lupus anticoagulant or negative. The quantitative value is provided as an aid in diagnosis. Reference Range: 0 - 11 Performed By: #### L UPUSAC #### [facility] [address] [address] [address] Irene Cedillo INR Coag (PPP) [Relative time] 0.9 {INR} Normal [facility] Comment on above: Result Comment: Refe rence Range: >1 month: 0.9 - 1.2 Performed By: #### L UPUSAC #### [facility] [address] [address] [address] Irene Cedillo LAC Interpretation Comment Normal [facility] Comment on above: Result Comment: A arelis pus anticoagulant is not detected. All antiphospholipid antibodies evaluated are normal. As antibody titers may fluctuate with time, repeat testing may be indicated. Please contact [facility] if further clarification is needed. Performed By: #### L UPUSAC #### [facility] [address] [place] [address] Dr. Irene Cedillo Platelet Neutralization 0.0 sec Normal [facility] Comment on above: Result Comment: Refe rence Range: 0.0 - 3.0 This test was developed and its performance characteristics determined by [employer]. It has not been cleared or approved by the Food and Drug Administration. Performed By: #### L UPUSAC #### [facility] [facility] [address] [place] [address] Dr. Irene Cedillo PT Coag (PPP) [Time] 10.0 s Normal [facility] Comment on above: Result Comment: Refe rence Range: 18 years and older: 9.1 - 12.0 Performed By: #### L UPUSAC #### [facility] [address] [place] [address] Dr. Irene Cedillo Thrombin Time 15.5 sec Normal [facility] Comment on above: Result Comment: Refe rence Range: 0.0 - 23.0 Performed By: #### L UPUSAC #### [facility] [address] [place] [address] Dr. Irene Cedillo ADRI by IFAon 10-23-2022 Antinuclear Antibodies, IFA Positive Abnormal [facility] Comment on above: Result Comment: Nega tive <1:80 Borderline 1:80 Positive >1:80 Performed By: #### T SH #### [facility] [address] [address] [address] Irene Cedillo Centriole Pattern Normal [facility] Comment on above: Performed By: #### T SH #### [facility] [address] [address] [address] Irene Cedillo Centromere Pattern Normal [facility] Comment on above: Performed By: #### T SH #### [facility] [address] [address] [address] Irene Cedillo Homogeneous Pattern 1:320 Critically high [facility] Comment on above: Result Comment: ICAP nomenclature: AC-1 Performed By: #### T SH #### [facility] [address] [address] [address] Irene Cedillo Midbody Pattern Normal [facility] Comment on above: Performed By: #### T SH #### [facility] [address] [place] [address] Dr. Irene Cedillo Note: Comment Normal [facility] Comment on above: Result Comment: For [...] titers Nucleosomes, Histones Drug-induced SLE Speckled Sm, FIELD MACHINIST, SCL-70, SLE,MCTD,PSS (diffuse form), SS-A/SS-B Sjogrens Nucleolar SCL-70, PM-1/SCL High titers Scleroderma, PM/DM Centromere Centromere PSS (limited form) w/Crest syndrome variable Nuclear Dot [id number] Primary Biliary Cirrhosis Nuclear GP210, Primary Biliary Cirrhosis Membrane margie A,B,C Performed By: #### T SH #### [facility] [address] [address] [address] Irene Cedillo Nuclear Dot Pattern Normal [facility] Comment on above: Performed By: #### T SH #### [facility] [address] [address] [address] Irene Cedillo Nuclear Membrane Pattern Normal [facility] Comment on above: Performed By: #### T SH #### [facility] [address] [place] [address] Dr. Irene Cedillo Nucleolar Pattern Normal [facility] Comment on above: Performed By: #### T SH #### [facility] [address] [place] [address] Dr. Irene Cedlilo PCNA Pattern Normal [facility] Comment on above: Performed By: #### T SH #### [facility] [address] [place] [address] Dr. Irene Cedillo Speckled Pattern Normal [facility] Comment on above: Performed By: #### T SH #### [facility] [address] [place] [address] Dr. Irene Cedillo Spindle Apparatus Pattern Normal [facility] Comment on above: Performed By: #### T SH #### [facility] [address] [place] [address] Dr. Irene Cedillo ALDOLASEon 10-19-2022 Aldolase 3.6 U/L Normal 3.3-10.3 [facility] Comment on above: Performed By: #### T SH #### [facility] [address] [place] [address] Dr. Irene Cedillo ANTI-CENTROMERE B ABo 10-19 Anti-Centromere B Antibodies <0.2 Normal 0.0-0.9 [facility] Comment on above: Performed By: #### S EDR #### [facility] [address] [place] [address] Dr. Irene Cedillo ANTI-DNA DS ABon 10-19-2022 Anti-DNA (DS) Ab Qn 1 IU/mL Normal 0-9 [facility] Comment on above: Result Comment: Nega tive <5 Equivocal 5 - 9 Positive >9 Performed By: #### C CPAB #### [facility] [address] [place] [address] Dr. Irene Cedillo ANTI-NICOLLE-1on 10-19-2022 Anti-Nicolle-1 <0.2 Normal 0.0-0.9 [facility] Comment on above: Performed By: #### A NTI-NICOLLE #### [facility] [address] [place] [address] Dr. Irene Cedillo ANTICHROMATIN ANTIBODIESon 0 10-19-2022 Antichromatin Antibodies 0.5 AI Normal 0.0-0.9 [facility] Comment on above: Performed By: #### C K, CRP #### [facility] [address] [place] [address] Dr. Irene Cedillo ANTIEXTRACTABLE NUCLEAR ANTI BODIESon 10-19-2022 FIELD MACHINIST Antibodies <0.2 Normal 0.0-0.[address] [facility] Comment on above: Performed By: #### H PYLORI #### [facility] [address] [place] [address] Dr. Irene Cedillo Performed By: #### C CPAB #### [facility] [address] [place] [address] Dr. Irene Cedillo Murray Antibodies <0.2 Normal 0.0-0.9 [facility] Comment on above: Performed By: #### H PYLORI #### [facility] [address] [place] [address] Dr. Irene Cedillo Performed By: #### C CPAB #### [facility] [address] [place] [address] Dr. Irene Cedillo ANTISCLERODERMA ABon 023 Antiscleroderma-70 Antibodies <0.2 Normal 0.0-0.9 [facility] Comment on above: Performed By: #### A NSCLER #### [facility] [address] [place] [address] Dr. Irene Cedillo C3 and C4 COMPLEMENTon 10-19 Complement C3, Serum 171 mg/dL Critically high 82-167 [facility] Comment on above: Performed By: #### H PYLORI #### [facility] [address] [place] [address] Dr. Irene Cedillo Complement C4, Serum 41 mg/dL Critically high 12-38 [facility] Comment on above: Performed By: #### H PYLORI #### [facility] [address] [place] [address] Dr. Irene Cedillo COMPLEMENT TOTAL (CH50)on Complement, Total (CH50) >60 Normal >41 [facility] Comment on above: Result Comment: Age [...] Performed By: #### C K, CRP #### [facility] [address] [place] [address] Dr. Irene Cedillo CYCLIC CITRULLINATED PEPTIDE AB (CCP)on 10-19-2022 CCP Antibodies IgG/IgA 3 units Normal 0-19 [facility] Comment on above: Result Comment: Nega tive <20 Weak positive 20 - 39 Moderate positive 40 - 59 Strong positive >59 Performed By: #### C CPAB #### [facility] [address] [address] [address] Irene Cedillo MITICHONDRIAL (M2) ANTIBODYo n 10-19-2022 Mitochondrial (M2) Antibody <20.0 Normal 0.0-20.0 [facility] Comment on above: Result Comment: Nega tive 0.0 - 20.0 Equivocal 20.1 - 24.9 Positive >24.9 . Mitochondrial (M2) Antibodies are found in 90-96% of patients with primary biliary cirrhosis. Performed By: #### C K, CRP #### [facility] [address] [address] [address] Irene Cedillo RHEUMATOID FACTORon 10-19-19 23 RA Latex Turbid. <10.0 Normal <14.0 [facility] Comment on above: Performed By: #### C CPAB #### [facility] [address] [place] [address] Dr. Irene Cedillo RPR QUANTon 10-19-2022 Rapid [...] utilized, such as Treponema pallidum (Syphilis) Screening [place] (882696) or Rapid Plasma Reagin (RPR) Test With Reflex to Quantitative RPR and Confirmatory Treponema pallidum Antibodies (155972). Performed By: #### T SH #### [facility] [address] [place] [address] Dr. Irene Cedillo SJOGRENS ANTIBODIES (Anti SS A/B)on 10-19-2022 Sjogren's Anti-SS-A <0.2 Normal 0.0-0.9 [facility] Comment on above: Performed By: #### S EDR #### [facility] [address] [place] [address] Dr. Irene Cedillo Sjogren's Anti-SS-B <0.2 Normal 0.0-0.9 [facility] Comment on above: Performed By: #### S EDR #### [facility] [address] [place] [address] Dr. Irene Cedillo SMOOTH MUSCLE ANTIBODYon Actin [...] Performed By: #### C K, CRP #### [facility] [address] [place] [address] Dr. Irene Cedillo THYROGLOBULIN ABon Thyroglobulin Antibody <1.0 Normal 0.0-0.9 [facility] Comment on above: Result Comment: Thyr oglobulin Antibody measured by [employer] Methodology Performed By: #### C CPAB #### [facility] [address] [place] [address] Dr. Irene Cedillo THYROID PEROXIDASE ABon 02- Thyroid Peroxidase (TPO) Ab 11 IU/mL Normal 0-34 [facility] Comment on above: Performed By: #### T SH #### [facility] [address] [place] [address] Dr. Irene Cedillo CBC AUTO DIFFon 10-18-2022 BASO # 0.1 103/ul Normal 0.0-0.1 [facility] Comment on above: Performed By: #### C K, CRP #### [facility] [address] [place] [address] Dr. Irene Cedillo Basophils/100 WBC (Bld) 0.7 % Normal 0.2-2.0 [facility] Comment on above: Performed By: #### C K, CRP #### [facility] [address] [place] [address] Dr. Irene Cedillo EO # 0.2 103/ul Normal 0.0-0.7 [facility] Comment on above: Performed By: #### C K, CRP #### [facility] [address] [place] [address] Dr. Irene Cedillo Eosinophils/100 WBC (Bld) 2.8 % Normal 0.9-7.0 [facility] Comment on above: Performed By: #### C K, CRP #### [facility] [address] [place] [address] Dr. Irene Cedillo Erythrocyte distribution width (RBC) [Ratio] 13.4 % Normal 11.0-15.0 [facility] Comment on above: Performed By: #### C K, CRP #### [facility] [address] [place] [address] Dr. Irene Cedillo Hematocrit (Bld) [Volume fraction] 43.6 % Normal 36.0-48.0 [facility] Comment on above: Performed By: #### C K, CRP #### [facility] [address] [place] [address] Dr. Irene Cedillo Hemoglobin (Bld) [Mass/Vol] 14.1 g/dL Normal 12.0-16.0 [facility] Comment on above: Performed By: #### C K, CRP #### [facility] [address] [place] [address] Dr. Irene Cedillo IG # 0.01 10e3/ul Normal 0.00-0.03 [facility] Comment on above: Performed By: #### C K, CRP #### [facility] [address] [place] [address] Dr. Irene Cedillo IG % 0.1 % Normal 0.0-0.5 [facility] Comment on above: Performed By: #### C K, CRP #### [facility] [address] [address] [address] Irene Cedillo LYMPH # 2.5 103/ul Normal 1.2-3.8 [facility] Comment on above: Performed By: #### C K, CRP #### [facility] [address] [place] [address] Dr. Irene Cedillo Lymphocytes/100 WBC (Bld) 35.9 % Normal 20.5-60.0 [facility] Comment on above: Performed By: #### C K, CRP #### [facility] [address] [place] [address] Dr. Irene Cedillo MANUAL DIFF REQ NO Normal [facility] Comment on above: Performed By: #### C K, CRP #### [facility] [address] [place] [address] Dr. Irene Cedillo MCH (RBC) [Entitic mass] 29.6 pg Normal 26.7-34.0 [facility] Comment on above: Performed By: #### C K, CRP #### [facility] [address] [place] [address] Dr. Irene Cedillo MCHC (RBC) [Mass/Vol] 32.3 g/dL Normal 29.9-35.2 [facility] Comment on above: Performed By: #### C K, CRP #### [facility] [address] [place] [address] Dr. Irene Cedillo MCV (RBC) [Entitic vol] 91.6 fL Normal 81.0-99.0 [facility] Comment on above: Performed By: #### C K, CRP #### [facility] [address] [place] [address] Dr. Irene Cedillo MONO # 0.4 103/ul Normal 0.3-0.8 [facility] Comment on above: Performed By: #### C K, CRP #### [facility] [address] [place] [address] Dr. Irene Cedillo Monocytes/100 WBC (Bld) 5.2 % Normal 1.7-12.0 [facility] Comment on above: Performed By: #### C K, CRP #### [facility] [address] [place] [address] Dr. Irene Cedillo NEUT # 3.8 103/ul Normal 1.4-6.5 [facility] Comment on above: Performed By: #### C K, CRP #### [facility] [address] [place] [address] Dr. Irene Cedillo Neutrophils/100 WBC (Bld) 55.3 % Normal 43.0-75.0 [facility] Comment on above: Performed By: #### C K, CRP #### [facility] [address] [place] [address] Dr. Irene Cedillo Platelet mean volume (Bld) [Entitic vol] 9.7 fL Normal 9.5-13.5 [facility] Comment on above: Performed By: #### C K, CRP #### [facility] [address] [place] [address] Dr. Irene Cedillo PLT 271 103/ul Normal 150-450 [facility] Comment on above: Performed By: #### C K, CRP #### [facility] [address] [place] [address] Dr. Irene Cedillo RBC 4.76 106/ul Normal 4.20-5.40 [facility] Comment on above: Performed By: #### C K, CRP #### [facility] [address] [place] [address] Dr. Irene Cedillo WBC 6.9 103/ul Normal 4.0-11.0 [facility] Comment on above: Performed By: #### C K, CRP #### [facility] [address] [place] [address] Dr. Irene Cedillo CPKon 10-18-2022 CK [Catalytic activity/Vol] 57 U/L Normal 26-192 [facility] Comment on above: Performed By: #### T SH #### [facility] [address] [place] [address] Dr. Irene Cedillo CRPon 10-18-2022 CRP 0.8 mg/dL Normal <=1.0 [facility] Comment on above: Performed By: #### T SH #### [facility] [address] [place] [address] Dr. Irene Cedillo FREE T4on 10-18-2022 Free T4 [Mass/Vol] 1.07 ng/dL Normal 0.76-1.46 [facility] Comment on above: Performed By: #### C K, CRP #### [facility] [address] [place] [address] Dr. Irene Cedillo PROF 14(COMP METB)on 023 Albumin [Mass/Vol] 3.9 g/dL Normal 3.4-5.0 [facility] Comment on above: Performed By: #### T SH #### [facility] [address] [place] [address] Dr. Irene Cedillo Albumin/Globulin [Mass ratio] 1.1 {ratio} Normal [facility] Comment on above: Performed By: #### T SH #### [facility] [address] [place] [address] Dr. Irene Cedillo ALP [Catalytic activity/Vol] 90 U/L Normal 46-116 [facility] Comment on above: Performed By: #### T SH #### [facility] [address] [place] [address] Dr. Irene Cedillo ALT [Catalytic activity/Vol] 32 U/L Normal 14-59 [facility] Comment on above: Performed By: #### T SH #### [facility] [address] [place] [address] Dr. Irene Cedillo Anion gap [Moles/Vol] 13.8 mmol/L Normal [facility] Comment on above: Performed By: #### T SH #### [facility] [address] [place] [address] Dr. Irene Cedillo AST [Catalytic activity/Vol] 26 U/L Normal 15-37 [facility] Comment on above: Performed By: #### T SH #### [facility] [address] [place] [address] Dr. Irene Cedillo Bilirubin [Mass/Vol] 0.2 mg/dL Normal 0.2-1.0 [facility] Comment on above: Performed By: #### T SH #### [facility] [address] [place] [address] Dr. Irene Cedillo Calcium [Mass/Vol] 9.1 mg/dL Normal 8.5-10.1 [facility] Comment on above: Performed By: #### T SH #### [facility] [address] [place] [address] Dr. Irene Cedillo Chloride [Moles/Vol] 102 mmol/L Normal 98-107 [facility] Comment on above: Performed By: #### T SH #### [facility] [address] [place] [address] Dr. Irene Cedillo CO2 [Moles/Vol] 25.4 mmol/L Normal 21.0-32.0 [facility] Comment on above: Performed By: #### T SH #### [facility] [address] [place] [address] Dr. Irene Cedillo Creatinine [Mass/Vol] 0.64 mg/dL Normal 0.55-1.02 [facility] Comment on above: Performed By: #### T SH #### [facility] [address] [place] [address] Dr. Irene Cedillo EGFR-AF INDIAN >60 Normal >=60 [facility] Comment on above: Performed By: #### T SH #### [facility] [address] [place] [address] Dr. Irene Cedillo EGFR-NON AF INDIAN >60 Normal >=60 [facility] Comment on above: Performed By: #### T SH #### [facility] [address] [place] [address] Dr. Irene Cedillo Globulin (S) [Mass/Vol] 3.6 g/dL Normal [facility] Comment on above: Performed By: #### T SH #### [facility] [address] [address] [address] Irene Cedillo Glucose [Mass/Vol] 132 mg/dL Critically high 74-106 [facility] Comment on above: Performed By: #### T SH #### [facility] [address] [address] [address] Irene Cedillo Potassium [Moles/Vol] 4.2 mmol/L Normal 3.5-5.1 [facility] Comment on above: Performed By: #### T SH #### [facility] [address] [place] [address] Dr. Irene Cedillo Protein [Mass/Vol] 7.5 g/dL Normal 6.4-8.2 [facility] Comment on above: Performed By: #### T SH #### [facility] [address] [address] [address] Irene Cedillo Sodium [Moles/Vol] 137 mmol/L Normal 136-145 [facility] Comment on above: Performed By: #### T SH #### [facility] [address] [place] [address] Dr. Irene Cedillo Urea nitrogen [Mass/Vol] 19.0 mg/dL Critically high 7.0-18.0 [facility] Comment on above: Performed By: #### T SH #### [facility] [address] [address] [address] Irene Cedillo Urea nitrogen/Creatinine [Mass ratio] 29.7 mg/mg Normal [facility] Comment on above: Performed By: #### T SH #### [facility] [address] [address] [address] Irene Cedillo PROTIMEon 10-18-2022 INR Coag (PPP) [Relative time] {INR} Normal [facility] Comment on above: Performed By: #### C K, CRP #### [facility] [address] [place] [address] Dr. Irene Cedillo INR GUIDELINES SEE BELOW Normal [facility] Comment on above: Result Comment: JUAN RAMON RED INR: 2.0 - 3.0 CONDITIONS NOT LISTED BELOW 2.5 - 3.5 FOR PROSTHETIC HEART VALVE REPLACEMENT 2.5 - 3.5 RECURRENT THROMBOSIS Performed By: #### C K, CRP #### [facility] [address] [place] [address] Dr. Irene Cedillo PT Coag (PPP) [Time] 9.8 s Normal 9.0-11.6 [facility] Comment on above: Performed By: #### C K, CRP #### [facility] [address] [place] [address] Dr. Irene Cedillo PTTon 10-18-2022 aPTT Coag (Bld) [Time] 26.0 s Normal 22.3-36.2 [facility] Comment on above: Performed By: #### C K, CRP #### [facility] [address] [place] [address] Dr. Irene Cedillo SED RATE [facility] 2022 SED RATE 42 mm/hr Critically high <=30 [facility] Comment on above: Performed By: #### S EDR #### [facility] [address] [place] [address] Dr. Irene Cedillo TSHon 10-18-2022 TSH 0.718 uIU/mL Normal 0.358-3.740 [facility] Comment on above: Performed By: #### T SH #### [facility] [address] [place] [address] Dr. Irene Cedillo UA RANDOM W/MICROSCOPICon BACTERIA NONE SEEN Normal NONE SEEN [facility] Comment on above: Performed By: #### C CPAB #### [facility] [address] [place] [address] Dr. Irene Cedillo Bilirubin Ql (U) Negative Normal NEGATIVE [facility] Comment on above: Performed By: #### C CPAB #### [facility] [address] [place] [address] Dr. Irene Cedillo CAST NONE SEEN Normal NONE SEEN [facility] Comment on above: Performed By: #### C CPAB #### [facility] [address] [place] [address] Dr. Irene Cedillo Clarity (U) CLEAR Normal CLEAR [facility] Comment on above: Performed By: #### C CPAB #### [facility] [address] [place] [address] Dr. Irene Cedillo Color (U) LT. YELLOW Normal YELLOW [facility] Comment on above: Performed By: #### C CPAB #### [facility] [address] [place] [address] Dr. Irene Cedillo Crystals LM Nom (Urine sed) NONE SEEN Normal NONE SEEN [facility] Comment on above: Performed By: #### C CPAB #### [facility] [address] [place] [address] Dr. Irene Cedillo Epithelial cells LM Ql (Urine sed) NONE SEEN Normal NONE SEEN /RARE [facility] Comment on above: Performed By: #### C CPAB #### [facility] [address] [place] [address] Dr. Irene Cedillo Glucose Ql (U) Negative Normal NEGATIVE [facility] Comment on above: Performed By: #### C CPAB #### [facility] [address] [place] [address] Dr. Irene Cedillo Hemoglobin Ql (U) Negative Normal NEGATIVE [facility] Comment on above: Performed By: #### C CPAB #### [facility] [address] [place] [address] Dr. Irene Cedillo Ketones Ql (U) Negative Normal NEGATIVE [facility] Comment on above: Performed By: #### C CPAB #### [facility] [address] [place] [address] Dr. Irene Cedillo LEUKOCYTES Negative Normal NEGATIVE [facility] Comment on above: Performed By: #### C CPAB #### [facility] [address] [place] [address] Dr. Irene Cedillo MUCOUS NONE SEEN Normal NONE SEEN [facility] Comment on above: Performed By: #### C CPAB #### [facility] [address] [place] [address] Dr. Irene Cedillo Nitrite Ql (U) Negative Normal NEGATIVE [facility] Comment on above: Performed By: #### C CPAB #### [facility] [address] [place] [address] Dr. Irene Cedillo pH (U) 5.5 [pH] Normal 5-9 [facility] Comment on above: Performed By: #### C CPAB #### [facility] [address] [place] [address] Dr. Irene Cedillo RBC 0-2 Normal 0-2 [facility] Comment on above: Performed By: #### C CPAB #### [facility] [address] [place] [address] Dr. Irene Cedillo SPEC GRAVITY 1.020 Normal 1.005-<=1.025 [facility] Comment on above: Performed By: #### C CPAB #### [facility] [address] [place] [address] Dr. Irene Cedillo UA PROTEIN Negative Normal NEGATIVE/ TRACE [facility] Comment on above: Performed By: #### C CPAB #### [facility] [address] [place] [address] Dr. Irene Cedillo Urobilinogen Qn (U) 0.2 {Junior'U}/dL Normal 0.2 - 1. 0 [facility] Comment on above: Performed By: #### C CPAB #### [facility] [address] [place] [address] Dr. Irene Cedillo WBC NONE SEEN Normal NONE SEEN [facility] Comment on above: Performed By: #### C CPAB #### [facility] [address] [place] [address] Dr. Irene Cedillo HLA B 27on 09-21-2022 HLA-B27 Negative Normal [facility] Comment on above: Result Comment: HLA- B*27 Negative B27 allele interpretation for all loci based on IMGT/HLA database version 3.44 This test was developed and its performance characteristics determined by [facility]. It has not been cleared or approved by the Food and Drug Administration. [facility] CLIA ID Number [id number] . This test was performed using PCR (Polymerase Chain Reaction)/SSOP (Sequence Specific Oligonucleotide Probes) technique. SBT (Sequence Based Typing) and/or SSP (Sequence Specific Primers) may be used as supplemental methods when necessary. Please contact [facility] Customer Service at if you have any questions. . Director of [facility] Laboratory Dr Kris Salinas, PhD Performed By: #### C CPAB #### [facility] [address] [address] [address] Irene Cedillo ADRI by IFAon 09-15-2022 Antinuclear Antibodies, IFA Positive Abnormal [facility] Comment on above: Result Comment: Nega tive <1:80 Borderline 1:80 Positive >1:80 Performed By: #### S EDR #### [facility] [address] [place] [address] Dr. Irene Cedillo Centriole Pattern Normal [facility] Comment on above: Performed By: #### S EDR #### [facility] [address] [place] [address] Dr. Irene Cedillo Centromere Pattern Normal [facility] Comment on above: Performed By: #### S EDR #### [facility] [address] [address] [address] Irene Cedillo Homogeneous Pattern 1:160 Critically high [facility] Comment on above: Result Comment: ICAP nomenclature: AC-1 Performed By: #### S EDR #### [facility] [address] [place] [address] Dr. Irene Cedillo Midbody Pattern Normal [facility] Comment on above: Performed By: #### S EDR #### [facility] [address] [place] [address] Dr. Irene Cedillo Note: Comment Normal [facility] Comment on above: Result Comment: For [...] titers Nucleosomes, Histones Drug-induced SLE Speckled Sm, FIELD MACHINIST, SCL-70, SLE,MCTD,PSS (diffuse form), SS-A/SS-B Sjogrens Nucleolar SCL-70, PM-1/SCL High titers Scleroderma, PM/DM Centromere Centromere PSS (limited form) w/Crest syndrome variable Nuclear Dot Sp100,[id number] Primary Biliary Cirrhosis Nuclear GP210, Primary Biliary Cirrhosis Membrane margie A,B,C Performed By: #### S EDR #### [facility] [address] [address] [address] Irene Cedillo Nuclear Dot Pattern Normal [facility] Comment on above: Performed By: #### S EDR #### [facility] [address] [address] [address] Irnee Cedillo Nuclear Membrane Pattern Normal [facility] Comment on above: Performed By: #### S EDR #### [facility] [address] [address] [address] Irene Cedillo Nucleolar Pattern Normal [facility] Comment on above: Performed By: #### S EDR #### [facility] [address] [address] [address] Irene Cedillo PCNA Pattern Normal [facility] Comment on above: Performed By: #### S EDR #### [facility] [address] [address] [address] Irene Cedillo Speckled Pattern Normal [facility] Comment on above: Performed By: #### S EDR #### [facility] [address] [place] [address] Dr. Irene Cedillo Spindle Apparatus Pattern Normal [facility] Comment on above: Performed By: #### S EDR #### [facility] [address] [place] [address] Dr. Irene Cedlilo CYCLIC CITRULLINATED PEPTIDE AB (CCP)on 09-15-2022 CCP Antibodies IgG/IgA 0 units Normal 0-19 [facility] Comment on above: Result Comment: Nega tive <20 Weak positive 20 - 39 Moderate positive 40 - 59 Strong positive >59 Performed By: #### C CPAB #### [facility] [address] [place] [address] Dr. Irene Cedillo RHEUMATOID FACTORon 09-15-19 23 RA Latex Turbid. <10.0 Normal <14.0 [facility] Comment on above: Performed By: #### C K, CRP #### [facility] [address] [address] [address] Irene Cedillo CBC AUTO DIFFon 09-13-2022 BASO # 0.0 103/ul Normal 0.0-0.1 [facility] Comment on above: Performed By: #### H PYLORI #### [facility] [address] [address] [address] Irene Cedillo Basophils/100 WBC (Bld) 0.4 % Normal 0.2-2.0 [facility] Comment on above: Performed By: #### H PYLORI #### [facility] [address] [place] [address] Dr. Irene Cedillo EO # 0.3 103/ul Normal 0.0-0.7 [facility] Comment on above: Performed By: #### H PYLORI #### [facility] [address] [place] [address] Dr. Irene Cedillo Eosinophils/100 WBC (Bld) 4.4 % Normal 0.9-7.0 [facility] Comment on above: Performed By: #### H PYLORI #### [facility] [address] [place] [address] Dr. Irene Cedillo Erythrocyte distribution width (RBC) [Ratio] 13.2 % Normal 11.0-15.0 [facility] Comment on above: Performed By: #### H PYLORI #### [facility] [address] [place] [address] Dr. Irene Cedillo Hematocrit (Bld) [Volume fraction] 41.5 % Normal 36.0-48.0 [facility] Comment on above: Performed By: #### H PYLORI #### [facility] [address] [place] [address] Dr. Irene Cedillo Hemoglobin (Bld) [Mass/Vol] 14.0 g/dL Normal 12.0-16.0 [facility] Comment on above: Performed By: #### H PYLORI #### [facility] [address] [place] [address] Dr. Irene Cedillo IG # 0.02 10e3/ul Normal 0.00-0.03 [facility] Comment on above: Performed By: #### H PYLORI #### [facility] [address] [address] [address] Irene Cedillo IG % 0.3 % Normal 0.0-0.5 [facility] Comment on above: Performed By: #### H PYLORI #### [facility] [address] [place] [address] Dr. Irene Cedillo LYMPH # 2.5 103/ul Normal 1.2-3.8 [facility] Comment on above: Performed By: #### H PYLORI #### [facility] [address] [place] [address] Dr. Irene Cedillo Lymphocytes/100 WBC (Bld) 34.4 % Normal 20.5-60.0 [facility] Comment on above: Performed By: #### H PYLORI #### [facility] [address] [place] [address] Dr. Irene Cedillo MANUAL DIFF REQ NO Normal [facility] Comment on above: Performed By: #### H PYLORI #### [facility] [address] [place] [address] Dr. Irene Cedillo MCH (RBC) [Entitic mass] 30.0 pg Normal 26.7-34.0 [facility] Comment on above: Performed By: #### H PYLORI #### [facility] [address] [place] [address] Dr. Irene Cedillo MCHC (RBC) [Mass/Vol] 33.7 g/dL Normal 29.9-35.2 [facility] Comment on above: Performed By: #### H PYLORI #### [facility] [address] [place] [address] Dr. Irene Cedillo MCV (RBC) [Entitic vol] 88.9 fL Normal 81.0-99.0 [facility] Comment on above: Performed By: #### H PYLORI #### [facility] [address] [place] [address] Dr. Irene Cedillo MONO # 0.4 103/ul Normal 0.3-0.8 [facility] Comment on above: Performed By: #### H PYLORI #### [facility] [address] [place] [address] Dr. Irene Cedillo Monocytes/100 WBC (Bld) 5.6 % Normal 1.7-12.0 [facility] Comment on above: Performed By: #### H PYLORI #### [facility] [address] [place] [address] Dr. Irene Cedillo NEUT # 4.0 103/ul Normal 1.4-6.5 [facility] Comment on above: Performed By: #### H PYLORI #### [facility] [address] [place] [address] Dr. Irene Cedillo Neutrophils/100 WBC (Bld) 54.9 % Normal 43.0-75.0 [facility] Comment on above: Performed By: #### H PYLORI #### [facility] [address] [place] [address] Dr. Irene Cedillo Platelet mean volume (Bld) [Entitic vol] 9.6 fL Normal 9.5-13.5 [facility] Comment on above: Performed By: #### H PYLORI #### [facility] [address] [place] [address] Dr. Irene Cedillo PLT 314 103/ul Normal 150-450 [facility] Comment on above: Performed By: #### H PYLORI #### [facility] [address] [place] [address] Dr. Irene Cedillo RBC 4.67 106/ul Normal 4.20-5.40 [facility] Comment on above: Performed By: #### H PYLORI #### [facility] [address] [place] [address] Dr. Irene Cedillo WBC 7.3 103/ul Normal 4.0-11.0 [facility] Comment on above: Performed By: #### H PYLORI #### [facility] [address] [place] [address] Dr. Irene Cedillo CRPon 09-13-2022 CRP 0.3 mg/dL Normal <=1.0 [facility] Comment on above: Performed By: #### C K, CRP #### [facility] [address] [place] [address] Dr. Irene Cedillo RENAL FUNCTION PANELon 09-13 Albumin [Mass/Vol] 3.7 g/dL Normal 3.4-5.0 [facility] Comment on above: Performed By: #### R ENAL #### [facility] [address] [address] [address] Irene Cedillo Calcium [Mass/Vol] 9.3 mg/dL Normal 8.5-10.1 [facility] Comment on above: Performed By: #### R ENAL #### [facility] [address] [address] [address] Irene Cedillo Chloride [Moles/Vol] 105 mmol/L Normal 98-107 [facility] Comment on above: Performed By: #### R ENAL #### [facility] [address] [place] [address] Dr. Irene Cedillo CO2 [Moles/Vol] 30.5 mmol/L Normal 21.0-32.0 [facility] Comment on above: Performed By: #### R ENAL #### [facility] [address] [place] [address] Dr. Irene Cedillo Creatinine [Mass/Vol] 0.64 mg/dL Normal 0.55-1.02 [facility] Comment on above: Performed By: #### R ENAL #### [facility] [address] [place] [address] Dr. Irene Cedillo EGFR-AF INDIAN >60 Normal >=60 [facility] Comment on above: Performed By: #### R ENAL #### [facility] [address] [place] [address] Dr. Irene Cedillo EGFR-NON AF INDIAN >60 Normal >=60 [facility] Comment on above: Performed By: #### R ENAL #### [facility] [address] [place] [address] Dr. Irene Cedillo Glucose [Mass/Vol] 130 mg/dL Critically high 74-106 [facility] Comment on above: Performed By: #### R ENAL #### [facility] [address] [place] [address] Dr. Irene Cedillo Phosphate [Mass/Vol] 3.9 mg/dL Normal 2.6-4.7 [facility] Comment on above: Performed By: #### R ENAL #### [facility] [address] [address] [address] Irene Cedillo Potassium [Moles/Vol] 4.0 mmol/L Normal 3.5-5.1 [facility] Comment on above: Performed By: #### R ENAL #### [facility] [address] [address] [address] Irene Cedillo Sodium [Moles/Vol] 143 mmol/L Normal 136-145 [facility] Comment on above: Performed By: #### R ENAL #### [facility] [address] [place] [address] Dr. Irene Cedillo Urea nitrogen [Mass/Vol] 16.0 mg/dL Normal 7.0-18.0 [facility] Comment on above: Performed By: #### R ENAL #### [facility] [address] [place] [address] Dr. Irene Cedillo SED RATE [facility] 2022 SED RATE 20 mm/hr Normal <=30 [facility] Comment on above: Performed By: #### C K, CRP #### [facility] [address] [place] [address] Dr. Irene Cedillo MRI ANKLE LT WO [...] TONY DICKINSON Date: 2022-08-26 09:36 Normal [facility] MAMM SCREEN 3D RIAN CADon 08-08-2022 MG MAMM SCREEN 3D RIAN CAD Patient: EMILY MACIAS Exam Date: 08/08/2022 : 1960 Gender:F Ordering : DR. KENDRA MCKINLEY M.D. Admission #: [id number] Family : DR NETTA MONTOYA M.D. Order #: [id number] CLICK HERE TO VIEW EXAM RADIOLOGY REPORT [...] breast cancer at age 78. LOCATION: [facility] BREAST COMPOSITION: Heterogeneously dense,which may obscure [...] Alexandre M.D. on 08/09/2022 at 15:10 Normal [facility] GLYCOHEMOGLOBIN A1Con 2021 ADA RECOMMENDATION SEE BELOW Normal [facility] Comment on above: Result Comment: ADA RECOMMENDED LIMIT 4.0 - 6.0 ADA THERAPEUTIC TARGET < 7.0 ACTION SUGGESTED > 7.0 Performed By: #### C CPAB #### [facility] [address] [address] [address] Irene Cedillo Glucose [Mass/Vol] 128 mg/dL Normal [facility] Comment on above: Performed By: #### C CPAB #### [facility] [address] [address] [address] Irene Cedillo HbA1c (Bld) [Mass fraction] 6.1 % Normal 4.5-6.2 [facility] Comment on above: Performed By: #### C CPAB #### [facility] [address] [address] [address] Irene Cedillo XR FOOT RIAN MIN [...] PELON ALEXANDRE Date: 2022-07-06 06:21 Normal [facility] OVA AND PARASITE EXAMINATION on 04-13-2022 Ova + Parasite Exam Final report Normal [facility] Comment on above: Result Comment: Thes e results were obtained using wet preparation(s) and trichrome stained smear. This test does not include testing for Cryptosporidium parvum, Cyclospora, or Microsporidia. Performed By: #### S EDR #### [facility] [address] [place] [address] Dr. Irene Cedillo Result 1 Comment Normal [facility] Comment on above: Result Comment: No o va, cysts, or parasites seen. . One negative specimen does not rule out the possibility of a parasitic infection. Performed By: #### S EDR #### [facility] [address] [place] [address] Dr. Irene Cedillo CALPROTECTIN, FECALon 2021 Calprotectin, Fecal 36 ug/g Normal 0-120 [facility] Comment on above: Result Comment: Conc entration Interpretation Follow-Up <16 - 50 ug/g Normal None >50 -120 ug/g Borderline Re-evaluate in 4-6 weeks >120 ug/g Abnormal Repeat as clinically indicated Performed By: #### C K, CRP #### [facility] [address] [place] [address] Dr. Irene Cedillo HELICOBACTER PYLORI AG STOOL on 04-12-2022 H. pylori Stool Ag, EIA Negative Normal Negative [facility] Comment on above: Performed By: #### H PYLORI #### [facility] [address] [place] [address] Dr. Irene Cedillo LACTOFERRIN FECAL QUANTon Lactoferrin, [...] (IBS). Performed By: #### T SH #### [facility] [address] [place] [address] Dr. Irene Cedillo C. DIFF PCRon 04-08-2022 C. DIFFICILE PCR Negative Normal NEGATIVE [facility] Comment on above: Performed By: #### S EDR #### [facility] [address] [place] [address] Dr. Irnee Cedillo GI PANEL (PCR)on 04-08-2022 Adenovirus F 40/41 Not detected Normal NOT DETECTED [facility] Comment on above: Performed By: #### S EDR #### [facility] [address] [place] [address] Dr. Irene Cedillo Astrovirus Not detected Normal NOT DETECTED [facility] Comment on above: Performed By: #### S EDR #### [facility] [address] [place] [address] Dr. Irene Cedillo C. Diff toxin A/B Not detected Normal NOT DETECTED [facility] Comment on above: Performed By: #### S EDR #### [facility] [address] [place] [address] Dr. Irene Cedillo Campylobacter Not detected Normal NOT DETECTED [facility] Comment on above: Performed By: #### S EDR #### [facility] [address] [place] [address] Dr. Irene Cedillo Cryptosporidium Not detected Normal NOT DETECTED [facility] Comment on above: Performed By: #### S EDR #### [facility] [address] [place] [address] Dr. Irene Cedillo Cyclos. Cayetanensis Not detected Normal NOT DETECTED [facility] Comment on above: Performed By: #### S EDR #### [facility] [address] [place] [address] Dr. Irene Cedillo E. Coli O157 Not Applicable Normal Not Applicable [facility] Comment on above: Performed By: #### S EDR #### [facility] [address] [place] [address] Dr. Irene Cedillo E. histolytica Not detected Normal NOT DETECTED [facility] Comment on above: Performed By: #### S EDR #### [facility] [address] [place] [address] Dr. Irene Cedillo EAEC Not detected Normal NOT DETECTED [facility] Comment on above: Performed By: #### S EDR #### [facility] [address] [place] [address] Dr. Irene Cedillo EIEC Not detected Normal NOT DETECTED [facility] Comment on above: Performed By: #### S EDR #### [facility] [address] [place] [address] Dr. Irene Cedillo EPEC Not detected Normal NOT DETECTED [facility] Comment on above: Performed By: #### S EDR #### [facility] [address] [place] [address] Dr. Irene Cedillo ETEC Not detected Normal NOT DETECTED [facility] Comment on above: Performed By: #### S EDR #### [facility] [address] [place] [address] Dr. Irene Cedillo G. Lamblia Not detected Normal NOT DETECTED [facility] Comment on above: Performed By: #### S EDR #### [facility] [address] [place] [address] Dr. Irene VIGIL CONTROLS PASSED Normal [facility] Comment on above: Performed By: #### S EDR #### [facility] [address] [place] [address] Dr. Irene ACOSTA [facility] HEADER GI PANEL BACTERIA Normal [facility] Comment on above: Performed By: #### S EDR #### [facility] [address] [place] [address] Dr. Irene CALDERA ECOLI GI PANEL DIARRHEAGEN IC E.COLI / SHIGELLA Normal [facility] Comment on above: Performed By: #### S EDR #### [facility] [address] [place] [address] Dr. Irene CALDERA INFO SEE BELOW Normal [facility] Comment on above: Result Comment: EAEC - Enteroaggregative E. Coli EPEC- Enteropathogenic E. Coli ETEC- Enterotoxigenic E. Coli lt/st STEC- Shigella-like toxin-producing E. Coli stx1/stx2 EIEC- Shigella/Enteroinvasive E. Coli Performed By: #### S EDR #### [facility] [address] [address] [address] Irene CALDERA PARASITES GI PANEL PARASITES Normal [facility] Comment on above: Performed By: #### S EDR #### [facility] [address] [address] [address] Irene CALDERA VIRUS GI PANEL VIRUSES Normal [facility] Comment on above: Performed By: #### S EDR #### [facility] [address] [address] [address] Irene Cedillo Norovirus GI/GII Not detected Normal NOT DETECTED [facility] Comment on above: Performed By: #### S EDR #### [facility] [address] [place] [address] Dr. Irene Cedillo P. Shigelloides Not detected Normal NOT DETECTED [facility] Comment on above: Performed By: #### S EDR #### [facility] [address] [place] [address] Dr. Irene Cedillo Rotavirus A Not detected Normal NOT DETECTED [facility] Comment on above: Performed By: #### S EDR #### [facility] [address] [place] [address] Dr. Irene Cedillo Salmonella Not detected Normal NOT DETECTED [facility] Comment on above: Performed By: #### S EDR #### [facility] [address] [place] [address] Dr. Irene Cedillo Sapovirus Not detected Normal NOT DETECTED [facility] Comment on above: Performed By: #### S EDR #### [facility] [address] [address] [address] Irene Cedillo STEC Not detected Normal NOT DETECTED [facility] Comment on above: Performed By: #### S EDR #### [facility] [address] [address] [address] Irene Cedillo Vibrio Not detected Normal NOT DETECTED [facility] Comment on above: Performed By: #### S EDR #### [facility] [address] [place] [address] Dr. Irene Cedillo Vibrio Cholera Not detected Normal NOT DETECTED [facility] Comment on above: Performed By: #### S EDR #### [facility] [address] [place] [address] Dr. Irene Cedillo Y. Enterocolitica Not detected Normal NOT DETECTED [facility] Comment on above: Performed By: #### S EDR #### [facility] [address] [place] [address] Dr. Irene Cedillo BUNon 03-27-2022 Urea nitrogen [Mass/Vol] 20.0 mg/dL Critically high 7.0-18.0 [facility] Comment on above: Performed By: #### C K, CRP #### [facility] [address] [place] [address] Dr. Irene Cedillo CREATININEon 03-27-2022 Creatinine [Mass/Vol] 0.75 mg/dL Normal 0.55-1.02 [facility] Comment on above: Performed By: #### C K, CRP #### [facility] [address] [place] [address] Dr. Irene Cedillo EGFR-AF INDIAN >60 Normal >=60 [facility] Comment on above: Performed By: #### C K, CRP #### [facility] [address] [place] [address] Dr. Irene Cedillo EGFR-NON AF INDIAN >60 Normal >=60 [facility] Comment on above: Performed By: #### C K, CRP #### [facility] [address] [place] [address] ABD/PELV W CONon [...] and/or use of iterative reconstruction technique. Findings: Duplicate Maker: No acute abnormalities are seen. Liver/Biliary [...] by: CIELO GARCIA Date: 2022-03-27 21:37 Normal [facility] POINT OF CARE GLUCOSEon 03-10 Glucose [Mass/Vol] 173 mg/dL Critically high 74-106 [facility] Comment on above: Performed By: #### C CPAB #### [facility] [address] [address] [address] Irnee Cedillo FSHon 02-25-2022 FSH 46.6 mIU/mL Normal [facility] Comment on above: Result Comment: Adul t Female: Follicular phase 3.5 - 12.5 Ovulation phase 4.7 - 21.5 Luteal phase 1.7 - 7.7 Postmenopausal 25.8 - 134.8 Performed By: #### C K, CRP #### [facility] [address] [place] [address] Dr. Irene Cedillo LUTEINIZING HORMONE (LH)on 0 02-25-2022 LH 33.3 mIU/mL Normal [facility] [facility] Comment on above: Result Comment: Adul t Female: Follicular phase 2.4 - 12.6 Ovulation phase 14.0 - 95.6 Luteal phase 1.0 - 11.4 Postmenopausal 7.7 - 58.5 Performed By: #### H PYLORI #### [facility] [address] [place] [address] Dr. Irene Cedillo TESTOSTERONE, TOTALon 2021 Testosterone [Mass/Vol] 6 ng/dL Normal 3-67 [facility] Comment on above: Performed By: #### H PYLORI #### [facility] [address] [place] [address] Dr. Irene Cedillo THYROID PEROXIDASE ABon 06- Thyroid Peroxidase (TPO) Ab <8 Normal 0-34 [facility] Comment on above: Performed By: #### C K, CRP #### [facility] [address] [place] [address] Dr. Irene Cedillo FREE T3on 02-24-2022 FREE T3 2.47 pg/mlL Normal 2.18-3.98 [facility] Comment on above: Performed By: #### S EDR #### [facility] [address] [place] [address] Dr. Irene Cedillo LYME DISEASE AB EIA [...] recommended. Performed By: #### T SH #### [facility] [address] [place] [address] Dr. Irene Cedillo CPKon 01-30-2022 CK [Catalytic activity/Vol] 76 U/L Normal 26-192 [facility] Comment on above: Performed By: #### C K, CRP #### [facility] [address] [address] [address] Irene Cedillo CRPon 01-30-2022 CRP 0.4 mg/dL Normal <=1.0 [facility] Comment on above: Performed By: #### C K, CRP #### [facility] [address] [address] [address] Irene Cedillo SED RATE WESTERGRENon 2021 SED RATE 8 mm/hr Normal <=30 [facility] Comment on above: Performed By: #### H PYLORI #### [facility] [address] [address] [address] Irene Cedillo C REACTIVE PROTEINon 021 CRP [Mass/Vol] 9.3 mg/L High 0.0-7.0 [facility] Comment on above: Performed By: #### 6 1405 #### [address] KNEE LEFT 3 [facility] 09-06-2021 KNEE LEFT 3 S [facility] Department of Radiology [address] [place], [place] [id number] ======== Patient Name: EMILY MACIAS : 1960 Sex: F Age: Race: White Pt. Location: Patient Status: Ordered Date: 09/06/2021 1:35:00 PM Completed Date: 09/06/2021 01:56 PM Requesting Provider: KIARA WILLETT Attending Provider: Report Copy To: Signs & Symptoms: M25.562 Pain in left knee I10 History: [place] Comments: Evaluate Exam: KNEE LEFT 3 S ======== KNEE LEFT 3 S 09/06/2021 1:56 [...] above Electronically signed: Olga Murray. Transcribed by: [email or web address], User Resident: Electronically Signed by: OLGA MURRAY @ 09/06/2021 03:09 PM Normal [facility] Comment on above: Order Comment: Evalu ate KNEE RIGHT 3 [facility] KNEE RIGHT 3 [facility] Department of Radiology [address] [place] [id number] ======== Patient Name: EMILY MACIAS : 1960 Sex: F Age: Race: White Pt. Location: Patient Status: Ordered Date: 09/06/2021 1:35:00 PM Completed Date: 09/06/2021 01:56 PM Requesting Provider: KIARA WILLETT Attending Provider: Report Copy To: Signs & Symptoms: M25.561 Pain in right knee I10 History: [place] Comments: Evaluate Exam: KNEE RIGHT 3 [facility] ======== KNEE RIGHT 3 [facility] 09/06/2021 1:56 [...] above Electronically signed: Olga Murray. Transcribed by: [email or web address], User Resident: Electronically Signed by: OLGA MURRAY @ 09/06/2021 03:08 PM Normal [facility] Comment on above: Order Comment: Evalu ate SEDIMENTATION RATEon 021 SED RATE 7 mm/hr Normal 0-20 [facility] Comment on above: Performed By: #### 5 [id number] #### [facility] [address] Vital Signs Date Time Vital Sign Value Performing Clinician Facility 12-26-2024 10:090400 Body height 165.1 cm [facility] 12-26-2024 10:090400 Body mass index (BMI) [Ratio] 32.7 kg/m2 [facility] 12-26-2024 10:090400 Body weight 89.2 kg [facility] 12-26-2024 10:09-0400 Diastolic blood pressure 70 mm[Hg] [facility] 12-26-2024 10:09-0400 Systolic blood pressure 112 mm[Hg] [facility] 12-10-2024 08:55-0400 Body height 165.1 cm Netta Montoya MD Work Phone: [facility] 12-10-2024 08:55-0400 Body mass index (BMI) [Ratio] 32.5 kg/m2 Netta Montoya MD Work Phone: [facility] 12-10-2024 08:55-0400 Body temperature 98.2 [degF] Netta Montoya MD Work Phone: [facility] 12-10-2024 08:55-0400 Body weight 88.9 kg Nteta Montoya MD Work Phone: [facility] 12-10-2024 08:55-0400 Diastolic blood pressure 68 mm[Hg] Netta Montoya MD Work Phone: [facility] 12-10-2024 08:55-0400 Heart rate 88 /min Netta Montoya MD Work Phone: [facility] 12-10-2024 08:55-0400 Systolic blood pressure 103 mm[Hg] Netta Montoya MD Work Phone: [facility] 10-21-2024 09:08-0500 Body height 165.1 cm Netta Montoya MD Work Phone: [facility] 10-21-2024 09:08-0500 Body mass index (BMI) [Ratio] 31.9 kg/m2 Netta Montoya MD Work Phone: [facility] 10-21-2024 09:08-0500 Body weight 87.08 kg Netta Montoya MD Work Phone: [facility] 10-21-2024 09:08-0500 Diastolic blood pressure 64 mm[Hg] Netta Montoya MD Work Phone: [facility] 10-21-2024 09:08-0500 Heart rate 90 /min Netta Montoya MD Work Phone: [facility] 10-21-2024 09:08-0500 SaO2% (BldA) [Mass fraction] 97 % Netta Montoya MD Work Phone: [facility] 10-21-2024 09:08-0500 Systolic blood pressure 107 mm[Hg] Netta Montoya MD Work Phone: [facility] 09-30-2024 13:53-0500 Body height 160.02 cm Netta Montoya MD Work Phone: [facility] 09-30-2024 13:53-0500 Body mass index (BMI) [Ratio] 33.1 kg/m2 Netta Montoya MD Work Phone: [facility] 09-30-2024 13:53-0500 Body weight 84.82 kg Netta Montoya MD Work Phone: [facility] 09-30-2024 13:53-0500 Diastolic blood pressure 70 mm[Hg] Netta Montoya MD Work Phone: [facility] 09-30-2024 13:53-0500 Heart rate 85 /min Netta Montoya MD Work Phone: [facility] 09-30-2024 13:53-0500 Systolic blood pressure 101 mm[Hg] Netta Montoya MD Work Phone: [facility] 08-29-2024 11:03-0500 Diastolic blood pressure 68 mm[Hg] Netta Montoya MD Work Phone: [facility] 08-29-2024 11:03-0500 Heart rate 89 /min Netta Montoya MD Work Phone: [facility] 08-29-2024 11:03-0500 Systolic blood pressure 115 mm[Hg] Netta Montoya MD Work Phone: [facility] 07-29-2024 09:33-0500 Body height 160.02 cm Netta Montoya MD Work Phone: [facility] 07-29-2024 09:33-0500 Body mass index (BMI) [Ratio] 34.3 kg/m2 Netta Montoya MD Work Phone: [facility] 07-29-2024 09:33-0500 Body weight 87.99 kg Netta Montoya MD Work Phone: [facility] 07-29-2024 09:33-0500 Diastolic blood pressure 69 mm[Hg] Netta Montoya MD Work Phone: [facility] 07-29-2024 09:33-0500 Heart rate 75 /min Netta Montoya MD Work Phone: [facility] 07-29-2024 09:33-0500 Systolic blood pressure 101 mm[Hg] Netta Montoya MD Work Phone: [facility] 07-17-2024 13:59-0500 Body height 160.02 cm Netta Montoya MD Work Phone: [facility] 07-17-2024 13:59-0500 Body mass index (BMI) [Ratio] 34.5 kg/m2 Netta Montoya MD Work Phone: [facility] 07-17-2024 13:59-0500 Body weight 88.45 kg Netta Montoya MD Work Phone: [facility] 07-17-2024 13:59-0500 Diastolic blood pressure 69 mm[Hg] Netta Montoya MD Work Phone: [facility] 07-17-2024 13:59-0500 Heart rate 83 /min Netta Montoya MD Work Phone: [facility] 07-17-2024 13:59-0500 SaO2% (BldA) [Mass fraction] 93 % Netta Montoya MD Work Phone: [facility] 07-17-2024 13:59-0500 Systolic blood pressure 117 mm[Hg] Netta Montoya MD Work Phone: [facility] 02-21-2024 13:19-0400 Body height 165.1 cm Sagar Krause MD Work Phone: [employer] [facility] 02-21-2024 13:19-0400 Body mass index (BMI) [Ratio] 31.78 kg/m2 Sagar Krause MD Work Phone: [employer] [facility] 02-21-2024 13:19-0400 Body temperature 97.11 [degF] Sagar Krause MD Work Phone: [facility] 02-21-2024 13:19-0400 Body weight 86.64 kg Sagar Krause MD Work Phone: [employer] [facility] 12-26-2023 13:54-0400 Body height 165.1 cm Radha Irvin TRACTOR DRILL OPERATOR-RACEBOOK WRITER Work Phone: [facility] [employer] [facility] 12-26-2023 13:54-0400 Body mass index (BMI) [Ratio] 33.45 kg/m2 Radha Brandee TRACTOR DRILL OPERATOR-RACEBOOK WRITER Work Phone: [employer] [facility] 12-26-2023 13:54-0400 Body weight 91.17 kg Radha Brandee TRACTOR DRILL OPERATOR-RACEBOOK WRITER Work Phone: [facility] [employer] 08-13-2023 09:30-0500 Body height 161.93 cm Netta Montoya Other [employer] Other 08-13-2023 09:30-0500 Body mass index (BMI) [Ratio] 34.46 kg/m2 Netta Montoya Other [employer] Other 08-13-2023 09:30-0500 Body weight 90.36 kg Netta Montoya Other [employer] Other 08-13-2023 09:30-0500 Diastolic blood pressure 70 mm[Hg] Netta Montoya Other [employer] Other 08-13-2023 09:30-0500 Systolic blood pressure 110 mm[Hg] Netta Montoya Other [employer] Other 08-09-2023 14:48-0500 Body height 165.1 cm Sagar Krause MD Work Phone: [employer] 08-09-2023 14:48-0500 Body mass index (BMI) [Ratio] 33.58 kg/m2 Sagar Krause MD Work Phone: [employer] 08-09-2023 14:48-0500 Body weight 91.54 kg Sagar Krause MD Work Phone: [employer] 04-24-2023 13:30-0400 Body height 161.93 cm Siva Ron Other [employer] Other 04-24-2023 13:30-0400 Body mass index (BMI) [Ratio] 32.52 kg/m2 Siva Dayormack Other [employer] Other 04-24-2023 13:30-0400 Body weight 85.28 kg Siva Ron Other [employer] Other 04-24-2023 13:30-0400 Diastolic blood pressure 70 mm[Hg] Siva Ron Other [employer] Other 04-24-2023 13:30-0400 Systolic blood pressure 126 mm[Hg] Siva Ariadne Other [employer] Other 02-22-2023 15:15-0400 Body height 165.1 cm Radha Irvin TRACTOR DRILL OPERATOR-RACEBOOK WRITER Work Phone: [employer] 02-22-2023 15:15-0400 Body mass index (BMI) [Ratio] 31.51 kg/m2 Radhamo Irvin TRACTOR DRILL OPERATOR-RACEBOOK WRITER Work Phone: [employer] 02-22-2023 15:15-0400 Body temperature 98.01 [degF] Radha Irvin TRACTOR DRILL OPERATOR-RACEBOOK WRITER Work Phone: [employer] 02-22-2023 15:15-0400 Body weight 85.9 kg Radhamo Irvin TRACTOR DRILL OPERATOR-RACEBOOK WRITER Work Phone: [employer] 01-09-2023 09:30-0400 Body height 161.93 cm Netta Montoya Other [employer] Other 01-09-2023 09:30-0400 Body mass index (BMI) [Ratio] 33.04 kg/m2 Netta Montoya Other [employer] Other 01-09-2023 09:30-0400 Body weight 86.64 kg Netta Montoya Other [employer] Other 01-09-2023 09:30-0400 Diastolic blood pressure 60 mm[Hg] Netta Montoya Other [employer] Other 01-09-2023 09:30-0400 SaO2% (BldA) [Mass fraction] 97 % Netta Montoya Other [employer] Other 01-09-2023 09:30-0400 Systolic blood pressure 112 mm[Hg] Netta Montoya Other [employer] Other 01-01-2023 15:45-0400 Body height 161.93 cm Siva Ron Other [employer] Other 01-01-2023 15:45-0400 Body mass index (BMI) [Ratio] 34.08 kg/m2 Siva Ron Other [employer] Other 01-01-2023 15:45-0400 Body weight 89.36 kg Siva Ron Other [employer] Other 01-01-2023 15:45-0400 Diastolic blood pressure 71 mm[Hg] Siva Ron Other [employer] Other 01-01-2023 15:45-0400 Systolic blood pressure 116 mm[Hg] Siva Ron Other [employer] Other 11-30-2022 13:58-0400 Body height 165.1 cm Sagar Krause MD Work Phone: [employer] 11-30-2022 13:58-0400 Body mass index (BMI) [Ratio] 32.12 kg/m2 Sagar Krause MD Work Phone: [employer] 11-30-2022 13:58-0400 Body weight 87.54 kg Sagar Krause MD Work Phone: [employer] 10-10-2022 14:30-0500 Body height 161.93 cm Netta Montoya Other [employer] Other 10-10-2022 14:30-0500 Body mass index (BMI) [Ratio] 34.08 kg/m2 Netta Montoya Other [employer] Other 10-10-2022 14:30-0500 Body weight 89.36 kg Netta Montoya Other [employer] Other 10-10-2022 14:30-0500 Diastolic blood pressure 70 mm[Hg] Netta Montoya Other [employer] Other 10-10-2022 14:30-0500 Systolic blood pressure 108 mm[Hg] Netta Montoya Other [employer] Other 09-13-2022 16:30-0500 Body height 161.93 cm Netta Montoya Other [employer] Other 09-13-2022 16:30-0500 Body mass index (BMI) [Ratio] 33.21 kg/m2 Netta Montoya Other [employer] Other 09-13-2022 16:30-0500 Body weight 87.09 kg Netta Montoya Other [employer] Other 09-13-2022 16:30-0500 Diastolic blood pressure 62 mm[Hg] Netta Montoya Other [facility] [employer] Other 09-13-2022 16:30-0500 SaO2% (BldA) [Mass fraction] 97 % Netta Montoya Other [facility] [employer] Other 09-13-2022 16:30-0500 Systolic blood pressure 108 mm[Hg] Netta Montoya Other [facility] [employer] Other Encounters Encounter Date Encounter Type Care Provider Facility Start: 01-05-2025 End: 01-05-2025 ambulatory Netta Montoya MD Facility:[facility] Start: 12-26-2024 End: 12-26-2024 ambulatory Jb Grady Facility:[facility] Start: 12-26-2024 End: 12-26-2024 Patient encounter procedure [facility] Work Phone: Start: 12-22-2024 End: 12-22-2024 ambulatory [facility] Start: 12-10-2024 End: 12-10-2024 ambulatory Netta Montoya MD Work Phone: [facility] Work Phone: Start: 12-10-2024 End: 12-10-2024 Patient encounter procedure Netta Montoya MD Work Phone: [facility] Work Phone: Start: 11-10-2024 Non-patient / Non-visit Netta Montoya MD Work Phone: [facility] Work Phone: Start: 10-21-2024 End: 10-21-2024 ambulatory Netta Montoya MD Work Phone: [facility] Work Phone: Start: 10-21-2024 End: 10-21-2024 Patient encounter procedure Netta Montoya MD Work Phone: [facility] Work Phone: Start: 09-30-2024 End: 09-30-2024 Patient encounter procedure Netta Montoya MD Work Phone: [facility] Work Phone: Start: 09-30-2024 End: 09-30-2024 ambulatory Netta Montoya MD Work Phone: [facility] Work Phone: Start: 09-30-2024 End: 09-30-2024 Patient encounter procedure Netta Montoya MD Work Phone: [facility] Work Phone: Start: 09-19-2024 End: 09-19-2024 ambulatory HANY DARLENE [facility] Start: 09-16-2024 ambulatory [facility] Start: 09-08-2024 End: 09-08-2024 ambulatory Netta Montoya MD Facility:[facility] Start: 08-29-2024 End: 08-29-2024 Patient encounter procedure Netta Montoya MD Work Phone: [facility] Work Phone: Start: 08-29-2024 End: 08-29-2024 ambulatory Jb Grady Facility:[facility] Start: 08-29-2024 End: 08-29-2024 Patient encounter procedure Netta Montoya MD Work Phone: [facility] Work Phone: Start: 08-18-2024 End: 08-18-2024 ambulatory Netta Montoya MD Facility:[facility] Start: 07-30-[facility] Start: 07-29-2024 End: 07-29-2024 Patient encounter procedure Netta Montoya MD Work Phone: [facility] Work Phone: Start: 07-17-2024 End: 07-17-2024 Patient encounter procedure Netta Montoya MD Work Phone: [facility] Work Phone: Start: 05-13-2024 ambulatory [facility] Start: 04-14-2024 End: 05-11-2024 [facility] Start: 02-21-2024 End: 02-21-2024 Office outpatient visit 25 minutes Sagar Krause MD Work Phone: [facility] Comment on above: Hx of total knee art hroplasty, left (Primary Dx); Pain in prosthetic joint, subsequent encounter Start: 02-21-2024 End: 02-21-2024 Subsequent hospital visit by physician Sagar Krause MD Work Phone: [facility] Start: 02-21-2024 ambulatory NETTA MONTOYA [facility] Start: 02-11-2024 ambulatory Janett Balbuena DPM F acility:[facility] Start: 01-09-2024 End: 02-09-2024 ambulatory [facility] Start: 12-26-2023 End: 01-09-2024 ambulatory [facility] Start: 12-26-2023 End: 12-26-2023 Office outpatient visit 15 minutes Radha Irvin TRACTOR DRILL OPERATOR-RACEBOOK WRITER Work Phone: [facility] Comment on above: Hx of total knee art hroplasty, left (Primary Dx) Start: 12-26-2023 End: 12-26-2023 Subsequent hospital visit by physician Radha Irvin TRACTOR DRILL OPERATOR-RACEBOOK WRITER Work Phone: [facility] Start: 12-26-2023 ambulatory [facility] Start: 10-22-2023 End: 10-22-2023 ambulatory Siva Ron Other [employer] Other Start: 10-22-2023 Telephone encounter Siva sheriff [facility] Start: 08-13-2023 End: 08-13-2023 ambulatory Netta Montoya Other [employer] Other Start: 08-13-2023 Office outpatient visit [address] [facility] Start: 08-09-2023 End: 08-09-2023 Office outpatient visit 15 minutes Sagar Krause MD Work Phone: [facility] Comment on above: Post-op pain (Primar y Dx); Pain in prosthetic joint, subsequent encounter Start: 08-09-2023 End: 08-09-2023 Subsequent hospital visit by physician Sagar Krause MD Work Phone: [facility] Start: 08-09-2023 ambulatory NETTA MONTOYA [facility] Start: 06-19-2023 End: 06-19-2023 ambulatory MD Netta Montoya Work Phone: [facility] Work Phone: Start: 06-19-2023 End: 06-19-2023 Patient encounter procedure MD Netta Montoya Work Phone: [facility] Work Phone: Start: 05-22-2023 End: 05-22-2023 ambulatory Siva Ron Other [employer] Other Start: 05-22-2023 Telephone encounter Siva sheriff [employer] Start: 05-09-2023 End: 05-09-2023 ambulatory MD Netta Montoya Work Phone: [facility] Work Phone: Start: 05-09-2023 End: 05-09-2023 Patient encounter procedure MD Netta Montoya Work Phone: [facility] Work Phone: Start: 04-26-2023 End: 04-26-2023 ambulatory Netta Montoya Other [employer] Other Start: 04-26-2023 Telephone encounter Netta Montoya [facility] Start: 04-24-2023 End: 04-24-2023 ambulatory Siva Ron Other [employer] Other Start: 04-24-2023 Office outpatient visit 25 minutes Siva Ron [facility] Start: 04-23-2023 End: 04-23-2023 ambulatory Netta Montoya Other [employer] Other Start: 04-23-2023 Telephone encounter Netta Montoya [facility] Start: 04-20-2023 End: 04-20-2023 ambulatory Netta Montoya Other [employer] Other Start: 04-20-2023 Telephone encounter Netta Montoya [facility] Start: 03-15-2023 End: 03-15-2023 ambulatory Siva Ron Other [employer] Other Start: 03-15-2023 Telephone encounter Siva Huggins [facility] Start: 02-22-2023 End: 02-22-2023 Postop follow up visit related to original px Radha Irvin APRN-RACEBOOK WRITER Work Phone: [facility] Comment on above: Hx of total knee art hroplasty, left (Primary Dx) Start: 02-19-2023 End: 02-19-2023 ambulatory Netta Montoya Other [employer] Other Start: 02-19-2023 Telephone encounter Netta Montoya [facility] Start: 01-18-2023 End: 01-19-[address] Erin RON Facility: Start: 01-17-2023 End: 01-17-2023 ambulatory Siva Ron Other [employer] Other Start: 01-17-2023 Telephone encounter Siva sheriff [facility] Start: 01-16-2023 End: 01-16-2023 ambulatory Siva Ron Other [employer] Other Start: 01-16-2023 Telephone encounter Siva sheriff [facility] Start: 01-09-2023 Encounter for other preprocedural examination Netta Lindsay [facility] Start: 01-09-2023 Office outpatient visit 15 minutes Netta Lindsay [facility] Start: 01-09-2023 Telephone encounter Netta Lindsay [facility] Start: 01-09-2023 End: 01-10-[address] Erin RON [employer] Other Start: 01-08-2023 End: 01-08-[address] Erin RON Facility:[facility] Start: 01-02-2023 End: 01-02-2023 ambulatory Siva Ron Other [employer] Other Start: 01-02-2023 Telephone encounter Siva sheriff [employer] Start: 01-01-2023 End: 01-01-2023 ambulatory Siva Ron Other [employer] Other Start: 01-01-2023 Office outpatient ne w 45 minutes Siva Ron [facility] Start: 11-30-2022 End: 11-30-2022 Office outpatient new 60 minutes Sagar Krause MD Work Phone: [facility] Comment on above: Pain in prosthetic j oint, sequela (Primary Dx) Start: 11-30-2022 End: 11-30-2022 Subsequent hospital visit by physician Sagar Krause MD Work Phone: [facility] Start: 11-28-2022 End: 11-29-[address] CARA LEO Facility:[facility] Start: 11-09-2022 End: 11-10-2022 ambulatory BRI BERGER Facility:[facility] Start: 10-18-2022 End: 10-19-[address] CARA LEO Facility:[facility] Start: 10-10-2022 End: 10-10-2022 ambulatory Netta Montoya Other [employer] Other Start: 10-10-2022 Office outpatient visit 15 minutes Netta Montoya [facility] Start: 09-22-2022 End: 09-22-2022 ambulatory Netta Montoya Other [employer] Other Start: 09-22-2022 Telephone encounter Netta Montoya [facility] Start: 09-13-2022 End: 09-14-2022 ambulatory JANETT BALBUENA [facility] [employer] Other Start: 09-13-2022 Office outpatient visit 15 minutes Netta Montoya [facility] Start: 08-23-2022 End: 08-24-2022 ambulatory TONY DICKINSON Facility:[facility] Start: 08-22-2022 End: 08-23-2022 ambulatory JANETT BALBUENA Facility:[facility] Start: 08-08-2022 End: 08-09-[address] PELON ALEXANDRE Facility:[facility] Start: 08-01-2022 Adult health examination Netta Montoya Other [employer] Other Start: 08-01-2022 Gynecological examination normal Netta Montoya Other [employer] Other Start: 08-01-2022 Pre-procedure evaluation check Netta Montoya Other [employer] Other Start: 07-11-2022 End: 07-12-[address] [...] Date Procedure Procedure Detail Performing Clinician Start: 12-26-2024 Supine abdominal X-ray Netta Montoya MD Work Phone: Start: 08-29-2024 Supine abdominal X-ray Netta Montoya [...] A g [Presence] in Stool by Immunoassay [facility] Start: 09-30-2024 Giardia lamblia Ag [Presence] in Stool by Immunoassay [facility] Start: 05-11-2024 Influenza vaccination INFLUENZ A VACCINE (Season Ended) [facility] Start: 02-21-2024 End: 02-20-2025 REQUEST FOR MISC LAB SENDOUT REQUEST FOR MISC LAB SENDOUT Lab Routine Pain in prosthetic joint, subsequent encounter Expected: 02/21/2024, Expires: 02/20/2025 [facility] Comment on above: Expected: 02/21/2024 , Expires: 02/20/2025 Start: 01-30-2024 End: 01-30-2024 Patient encounter procedure 01/30/2024 1:00 PM EDT Office Visit [facility] [address] [place] [id number] Radha Irvin APRN-RACEBOOK WRITER [address] [place] [id number] [facility] Start: 08-09-2023 End: 09-06-2023 C-reactive protein C REACTIVE PROTEIN Lab Routine Pain in prosthetic joint, subsequent encounter Expected: 08/09/2023, Expires: 09/06/2023 [facility] Comment on above: Expected: 08/09/2023 , Expires: 09/06/2023 Start: 08-09-2023 End: 09-06-2023 SEDIMENTATION RATE, AUTOMATED SEDIMENTATION RATE, AUTOMATED Lab Routine Pain in prosthetic joint, subsequent encounter Expected: 08/09/2023 (Approximate), Expires: 09/06/2023 [facility] Comment on above: Expected: 08/09/2023 (Approximate), Expires: 09/06/2023 Start: 07-06-2023 Hemoglobin A1c measurement HBA1C TEST [facility] Start: 06-06-2023 End: 06-06-2023 Patient encounter procedure 06/06/2023 1:10 PM EDT Office Visit [facility] [address] [place] [id number] Sagar Krause MD [address] [place] [address] [facility] Start: 05-11-2023 COVID-19 VACCINE ( season) COVID-19 VACCINE ( season) [facility] Start: 05-11-2023 Influenza vaccination A [facility] Start: 05-09-2023 [facility] Start: 01-04-2023 End: 01-04-2023 ambulatory 01/04/2023 Pre-Operative Nurse Assessment Internal Medicine [facility] Pre Admission Start: 05-11-2022 Influenza vaccination INFLUENZA VACC INE (#1) [facility] Start: 12-15-2009 Zoster vaccine hzv l ag for subcutaneous use ZOSTER (SHINGLES) VACCINE (1 of 2) [facility] Start: 12-15-2004 Screening for malign ant neoplasm of colon COLORECTAL CANCER SCREENING DISCUSSION [facility] Start: 1999 Lipid panel LIPID SCREENING [facility] Start: 1999 Screening for malign ant neoplasm of breast MAMMOGRAM SCREENING DISCUSSION [facility] Start: 12-15-1980 Screening for malign ant neoplasm of cervix CERVICAL CANCER SCREENING DISCUSSION [facility] Start: 12-15-1978 Third diphtheria, te tanus and acellular pertussis (DTaP) vaccination TDAP (ADULT) [facility] Start: 12-15-1974 HIV screening HIV SCREENING DISCUSSION [facility] Start: 06-16-1960 COVID-19 VACCINE (#1) COVID-19 VACCI NE (#1) [facility] Start: 1959 Diabetic foot examination DIABETIC F OOT EXAM [facility] Start: 1959 Glaucoma screening EYE EXAM [facility] Start: 1959 Hepatitis C screening HEPATITI S C VIRUS SCREENING [facility] Start: 1959 Lipid panel LIPIDS [facility] Start: 1959 Tetanus vaccination TETANUS [facility] Start: 1959 Thyroid stimulating hormone measurement TSH [facility] Start: 1959 Urine screening for protein URINE MICROALBUMIN TEST [facility] Comprehensive metabo lic 2000 panel - Serum or Plasma [facility] Radiography for bone length studies XR BONE LENGTH STUDY Imaging Routine Pain in prosthetic joint, sequela 11/30/2022 1:41 PM EDT [facility] Supine abdominal X-ray [facility] XR Knee - left 3 Views XR KNEE L EFT 3 VIEWS Imaging Routine Pain in prosthetic joint, sequela 11/30/2022 1:41 PM EDT [facility] Work Phone: XR Knee - left 3 Views XR KNEE L EFT 3 VIEWS Imaging Routine Hx of total knee arthroplasty, left 02/22/2023 2:50 PM EDT [facility] XR Knee - left 3 Views XR KNEE L EFT 3 VIEWS Imaging Routine Post-op pain 08/09/2023 2:03 PM EST [facility] XR Knee - left 3 Views XR KNEE L EFT 3 VIEWS Imaging Routine Hx of total knee arthroplasty, left 12/26/2023 1:43 PM EDT [facility] XR Knee - left 3 Views XR KNEE L EFT 3 VIEWS Imaging Routine Hx of total knee arthroplasty, left 02/21/2024 1:11 PM EDT [facility] Payers Date Payer Category Payer Private Health Insurance 2021 Medicare [id number] 1959 Unknown [id number] 2.16.84 0.1.077170.3.579.2.593 1959 Unknown [id number] 2.16.84 0.1.344532.3.579.2.593 1959 Unknown [id number] 2.16.84 0.1.288271.3.579.2.593 1959 Unknown [id number] 2.16.84 0.1.209464.3.579.2.593 1959 Unknown [id number] 2.16.84 0.1.052375.3.579.2.593 1959 Unknown [id number] 2.16.84 0.1.499882.3.579.2.593 1959 Unknown [id number] 2.16.84 0.1.093798.3.579.2.593 1959 Unknown [id number] 2.16.84 0.1.589792.3.579.2.593 1959 Unknown [id number] 2.16.84 0.1.091668.3.579.2.593 1959 Unknown [id number] 2.16.84 0.1.905893.3.579.2.593 1959 Unknown [id number] 2.16.84 0.1.150333.3.579.2.593 1959 Unknown [id number] 2.16.84 0.1.399737.3.579.2.593 1959 Unknown [id number] 2.16.84 0.1.392025.3.579.2.593 1959 Unknown [id number] 2.16.84 0.1.595241.3.579.2.593 1959 Unknown [id number] 2.16.84 0.1.073359.3.579.2.593 1959 Unknown [id number] 2.16.84 0.1.327091.3.579.2.593 1959 Unknown [id number] 2.16.84 0.1.742228.3.579.2.593 1959 Unknown [id number] 2.16.84 0.1.134962.3.579.2.593 1959 Unknown [id number] 2.16.84 0.1.411343.3.579.2.593 1959 Unknown [id number] 2.16.8 40.1.082400.3.579.2.983 1959 Unknown [id number] 2.16.8 40.1.657374.3.579.2.983 1959 Unknown [id number] 2.16.8 40.1.671516.3.579.2.983 1959 Unknown [id number] 2.16.8 40.1.435417.3.579.2.983 1959 Unknown [id number] 2.16.8 40.1.752248.3.579.2.983 1959 Unknown [id number] 2.16.8 40.1.741927.3.579.2.983 1959 Unknown [id number] 2.16. 840.1.657672.3.579.2.1286 1959 Unknown [id number] 2.16. 840.1.980150.3.579.2.128 1959 Unknown [id number] 2.16.8 40.1.454694.3.579.2.1285 1959 Unknown [id number] 2.16.8 40.1.649643.3.579.2.6 1959 Unknown [id number] 2.16.8 40.1.727333.3.579.2.1285 1959 Unknown [id number] 2.16.8 40.1.641933.3.579.2.1286 1959 Unknown [id number] 2.16 840.1.493782.3.579.2.196 1959 Unknown [id number] 2.16. 840.1.943935.3.579.2.196 1959 Unknown [id number] 2.16 840.1.421524.3.579.2.196 1959 Unknown [id number] 2.16 840.1.948315.3.579.2.196 1959 Unknown [id number] 2.16 840.1.758426.3.579.2.196 1960 Medicare [id number] 2. 16840.1.435057.19 Medicare Medicare [id number] Private Health Insurance [facility] [id number] Unknown O [id number] Social History Date Type Detail Facility Unknown if ever smoked [facility] Other Start: 02-22-2023 End: 12-26-2023 Sex Assigned At [facility] Other Start: 11-30-2022 End: 07-25-2024 Tobacco smoking status NHIS Never smoked tobacco [facility] Start: 11-30-2022 Tobacco use and exposure Smokeless tobacco non-user [facility] Start: 11-30-2022 End: 02-21-2024 Alcohol intake Ex-drinker (finding) [facility] Start: 1960 Sex Assigned At Not on file A [employer] Start: 02-22-2023 End: 12-26-2023 History of Social function [facility] Start: 01-19-2023 End: 01-29-2023 Exposure to SARS-CoV-2 (event) Not sure [facility] Start: 1960 Sex Assigned At Female F [facility] Start: 10-01-2024 Sex Patient sex un known (finding) [facility] Start: 10-21-2024 End: 12-27-2024 Sex Female (finding) [facility] Medical Equipment Procedure Code Equipment Code Equipment Origin al Text Equipment Identifier Dates One Touch Ultra Test Strips Insert - Knee - [id number] Start: 01-29-2023 Patella - Knee - [id number] Start: 01-29-2023 Revision Pressfi t Stem 12mmx 60 [id number] Start: 01-29-2023 Revision Tibial Base Sz 2 [id number] Start: 01-29-2023 Rev Offset Stem 2mm [id number] Star t: 01-29-2023 Rev Distal Femor al Augment Sz 5 4mm [id number] Start: 01-29-2023 Rev Crs Femoral Sz 5 Left [id number] Start: 01-29-2023 Palacos R 1 X 40 Us - [id number] Start: 01-29-2023 Palacos R & G Smooth ne Cement High-Viscosity With Gentamicin - [id number] Start: 01-29-2023 Blood Sugar Diagnostic (Onetouch [...] Desired Activity /State Clinical Notes 03-08-2022 to 10-21-2024 Note Date & Type Note Facility 10-21-2024 Evaluation note Diagnosis Onset Date Resolution Chronic insomnia acute October 21, 2024 8:57am Depression acute October 21, 2024 8:57am Hypnotic dependence acute 2024 8:57am Hypothyroidism acute October 112024 8:57am Intolerance to BiPAP/CPAP acute October 21 8:57am LUIS (obstructive sleep apnea) acute October 21 8:57am Restless leg syndrome acute Feb ruary 2024 8:57am Vitamin B12 deficiency acute bruary 2024 8:57am Maxillary sinusitis acute December 10, 2024 8:54am Tension headache acute December 8:54am Type 2 diabetes mellitus with hyperglycemia acute December 10 8:54am Bloating acute December 26 10:06am Fecal incontinence acute December 26, 2024 10:06am Fecal urgency acute December 26, 2024 10:06am Gas bloat syndrome acute December 26, 2024 10:06am Irritable bowel syndrome with constipation and diarrhea acute December 26, 2024 10:06am [facility] Work Phone: 1(384) 219-467502-11-2025 Evaluation note* Diagnosis Onset Date Resolution Status Admit Date Chronic insomnia acute October 21, 2024 8:57am Depression acute October 21, 2024 8:57am Hypnotic dependence acute 2024 8:57am Hypothyroidism acute October 112024 8:57am Intolerance to BiPAP/CPAP acute October 21, 2024 8:57am LUIS (obstructive sleep apnea) acute October 21, 2024 8:57am Restless leg syndrome acute Feb ruary 2024 8:57am Vitamin B12 deficiency acute bruary 2024 8:57am Maxillary sinusitis acute December 10, 2024 8:54am Tension headache acute December 8:54am Type 2 diabetes mellitus wit h hyperglycemia acute December 10, 2024 8:54am Bloating acute December 26 10:06am Fecal urgency acute December 26, 2024 10:06am Gas bloat syndrome acute December 26, 2024 10:06am GERD (gastroesophageal reflu x disease) acute December 26, 2024 10:06am Irritable bowel syndrome wit h constipation and diarrhea acute December 26, 2024 10:06am [facility] Work Phone: 1(824) 438-538301-21-2025 Evaluation note* Diagnosis Onset Date Resolution Status Admit Date Abdominal pain acute September 302024 1:49pm Bloating [...] bruary 2024 8:57am Type 2 diabetes mellitus wit h hyperglycemia acute December 10, 2024 8:54am [facility] Work Phone: 1(335) 239-964711-19-2024 Evaluation note* Diagnosis Onset Date Resolution Status Admit Date Type 2 diabetes mellitus wit h hyperglycemia acute July 29 024 9:30am Abdominal cramping acute Decemb er 2023 [...] October 21, 2024 8:57am Hypnotic dependence acute Febr trent2024 8:57am Hypothyroidism acute October 112024 8:57am Intolerance to BiPAP/CPAP acute October 21, 2024 8:57am LUIS (obstructive sleep apnea) acute October 21, 2024 8:57am Restless leg syndrome acute Feb ruary 2024 8:57am Vitamin B12 deficiency acute Fe bruary 2024 8:57am [facility] Work Phone: 1(493) 445-144211-07-2024 Evaluation note* Diagnosis Onset Date Resolution Status Admit Date Chronic insomnia acute July 17, 2024 1:45pm Depression acute July 17, 2024 1:45pm Excessive daytime sleepiness acute July 17, 2024 1:45pm Hypnotic dependence acute Novem 2023 1:45pm Hypothyroidism acute July 172023 1:45pm Intolerance to BiPAP/CPAP acute July 17, 2024 1:45pm LUIS (obstructive sleep apnea) acute July 17, 2024 1:45pm Restless leg syndrome acute Nov emb2023 1:45pm Vitamin B12 deficiency acute No vember 2023 1:45pm Type 2 diabetes mellitus wit h hyperglycemia acute November 19th, 2 024 9:30am Abdominal cramping acute Decemb er 2023 [...] h constipation and diarrhea acute Januar y 2024 1:49pm Nausea acute September 30, 2024 1:49pm [facility] Work Phone: 1(481) 202-955006-13-2024 History of Present illness Narrative* Sandra Canales [...] 02/21/2024 1:17 PM Patient: Emily Macias MR#: [id number] : 1960 Age: 63 y.o. Referring Physician: Self, Self Insurance: Payor: MEDICARE AETNA HMO OR PPO / Plan: MEDICARE [employer] HMO / Product Type: *No Product type* [...] daily. 60 capsule 0 Cholecalciferol 250 MCG (88012 UT) capsule capsule Take by mouth daily. [...] DR tablet Take by mouth daily. Pancrelipase, Kar-Jwbr-Dlib, (CREON PO) Take 36,000 Units by mouth. [...] by Nasal route once for 1 dose. [place] into the nose as directed. Call 911. [...] 60 capsule, Rfl: 0 Cholecalciferol 250 MCG (69957 UT) capsule capsule, Take by mouth daily., [...] by mouth daily., Disp: , Rfl: Pancrelipase, Ggu-Muth-Ocnx, (CREON PO), Take 36,000 Units by mouth. [...] by Nasal route once for 1 dose. Arv[place] into the nose as directed. Call 911. [...] bracing and also reported she applied for [employer] financial[employer] consultant for additional PT. Should she need additional [...] have reviewed the findings of the clinical cell support operator and agree with their assessment. Ortho Nurse - Established Patient Intake Room#: 2 Pt is here for left knee pain ( LTKA revision 01/30/24. Pt states that she is still having pain in her knee. Pain is 4-5. Pt did physical therapy, and took the medication but no relief. Pt would like to discuss options Date: 02/21/2024 1:17 PM Patient: Emily Macias MR#: [id number] : 1960 Age: 63 y.o. Referring Physician: Self, Self Insurance: Payor: MEDICARE [employer] HMO OR PPO / Plan: MEDICARE [employer] HMO / Product Type: *No Product type* [...] daily. 60 capsule 0 Cholecalciferol 250 MCG (73135 UT) capsule capsule Take by mouth daily. [...] DR tablet Take by mouth daily. Pancrelipase, Ryf-Mlmd-Ysox, (CREON PO) Take 36,000 Units by mouth. [...] by Nasal route once for 1 dose. Arv[place] into the nose as directed. Call 911. [...] 60 capsule, Rfl: 0 Cholecalciferol 250 MCG (60740 UT) capsule capsule, Take by mouth daily., [...] by mouth daily., Disp: , Rfl: Pancrelipase, Jnz-Cokx-Jbyo, (CREON PO), Take 36,000 Units by mouth. [...] by Nasal route once for 1 dose. Arvonia into the nose as directed. Call 911. [...] zanaflex [tizanidine], and vancomycin. documented in this [facility]04-17-2024 History of Present illness Narrative* Raven Mera - 12/26/2023 2:00 PM EDT Ortho Nurse - Established Patient Intake Room#: 5 Date: 12/26/2023 1:55 PM Patient: Emily Macias MR#: [id number] : 1960 Age: 63 y.o. 1yr L [...] daily. 60 capsule 0 Cholecalciferol 250 MCG (14574 UT) capsule capsule Take by mouth daily. [...] DR tablet Take by mouth daily. Pancrelipase, Rxk-Qvkn-Mwir, (CREON PO) Take 36,000 Units by mouth. [...] by Nasal route once for 1 dose. [place] into the nose as directed. Call 911. [...] 60 capsule, Rfl: 0 Cholecalciferol 250 MCG (10119 UT) capsule capsule, Take by mouth daily., [...] by mouth daily., Disp: , Rfl: Pancrelipase, Kzr-Yjlr-Urhw, (CREON PO), Take 36,000 Units by mouth. [...] by Nasal route once for 1 dose. [place] into the nose as directed. Call 911. [...] zanaflex [tizanidine], and vancomycin. * Radha Irvin APRN-KEIRA - 12/26/2023 2:00 PM EDT SUBJECTIVE: Emily [...] She thinks she had that done at [facility]. We will try and obtain those [...] up with Dr. Krause for clinical examination. ([id number]) I have reviewed the findings of the clinical cell support operator and agree with their assessment. DANIELLE Gimenez Ortho Nurse - Established Patient Intake Room#: 5 Date: 12/26/2023 1:55 PM Patient: Emily Macias MR#: [id number] : 1960 Age: 63 y.o. 1yr L [...] daily. 60 capsule 0 Cholecalciferol 250 MCG (15775 UT) capsule capsule Take by mouth daily. [...] DR tablet Take by mouth daily. Pancrelipase, Ykg-Beab-Izpb, (CREON PO) Take 36,000 Units by mouth. [...] by Nasal route once for 1 dose. Arv[place] into the nose as directed. Call 911. [...] 60 capsule, Rfl: 0 Cholecalciferol 250 MCG (48026 UT) capsule capsule, Take by mouth daily., [...] by mouth daily., Disp: , Rfl: Pancrelipase, Hti-Bhky-Ppyc, (CREON PO), Take 36,000 Units by mouth. [...] by Nasal route once for 1 dose. Arv[place] into the nose as directed. Call 911. [...] zanaflex [tizanidine], and vancomycin. documented in this [facility]12-04-2023 Evaluation note* Encounter Date Diagnosis Assessment Notes Treatment Notes Treatment Clinical Notes Aug, Piriformis syndrome, right (ICD-10 - G57.01) Pt declines PT at this time. Gave handouts for exercises and use flexeril qhs. Aug, Trochanteric bursitis, right hip (ICD-10 - M70.61) Pt declines PT. Muscle relaxer and handouts given. [facility] Other 11-30-2023 History of Present illness Narrative* [...] 08/09/2023 2:58 PM Patient: Emily Macias MR#: [id number] : 1960 Age: 62 y.o. Referring Physician: [...] DR tablet Take by mouth daily. Pancrelipase, Aco-Yocv-Akni, (CREON PO) Take 36,000 Units by mouth. [...] taking: Reported on 08/09/2023) Cholecalciferol 250 MCG (31656 UT) capsule capsule Take by mouth daily. [...] by Nasal route once for 1 dose. Arv[place] into the nose as directed. Call 911. [...] have reviewed the findings of the clinical cell support operator and agree with their assessment. Ortho Nurse [...] 08/09/2023 2:58 PM Patient: Emily Macias MR#: [id number] : 1960 Age: 62 y.o. Referring Physician: [...] DR tablet Take by mouth daily. Pancrelipase, Pmw-Gjpa-Ymui, (CREON PO) Take 36,000 Units by mouth. [...] taking: Reported on 08/09/2023) Cholecalciferol 250 MCG (13703 UT) capsule capsule Take by mouth daily. [...] by Nasal route once for 1 dose. Arvonia into the nose as directed. Call 911. [...] zanaflex [tizanidine], and vancomycin. [facility]* Encounter Date Diagnosis Assessment Notes Treatment Notes Treatment Clinical Notes Apr, Abdominal cramping (ICD-10 - R10.9) Patient reports doing well Apr, Diverticulosis (ICD-10 - K57.90) Apr, Alternating constipation and diarrhea (ICD-10 - R19.8) Apr, Pancreatic atrophy (ICD-10 - K86.89) Apr, Fatty liver (ICD-10 - K76.0) [facility] Other 08-11-2023 Evaluation note* Encounter Date Diagnosis Assessment Notes Treatment Notes Treatment Clinical Notes Apr, Type 2 diabetes mellitus with hyperglycemia, without long-term current use of insulin (ICD-10 - E11.65) [facility] Other 06-15-2023 History of Present illness Narrative* [...] 02/22/2023 3:16 PM Patient: Emily Macias MR#: [id number] : 1960 Age: 62 y.o. Referring Physician: Radha Irvin APRN-CNP Insurance: Payor: MEDICARE AETNA HMO OR PPO / Plan: MEDICARE AET HMO / Product Type: *No Product type* [...] daily. 84 capsule 0 Cholecalciferol 250 MCG (30911 UT) capsule capsule Take by mouth daily. [...] by Nasal route once for 1 dose. Arvonia into the nose as directed. Call 911. If no response in 2 minutes use a new nasal spray in other nostril. Repeat until help arrives. 1Each [address] Omep[address] tablet Take by mouth daily. oxyCODONE 5 MG tablet Take 1-2 tabs po q 4-6 hours prn pain. Wean as tolerated. 20 tablet 0 Pancrelipase, Svi-Jgbm-Nmcn, (CREON PO) Take 36,000 Units by mouth. [...] 84 capsule, Rfl: 0 Cholecalciferol 250 MCG (88231 UT) capsule capsule, Take by mouth daily., [...] by Nasal route once for 1 dose. Arvonia into the nose as directed. Call 911. [...] tolerated., Disp: 20 tablet, Rfl: 0 Pancrelipase, Wwh-Pwfl-Lgqu, (CREON PO), Take 36,000 Units by mouth. [...] zanaflex [tizanidine], and vancomycin. * Radha Irvin APRN-RACEBOOK WRITER - 02/22/2023 3:00 PM EDT HPI: Emily [...] understanding. All pertinent portions of the clinical cell support operator documentation was reviewed and agree. DANIELLE Gimenez I have reviewed the findings of the clinical cell support operator and agree with their assessment. DANIELLE Gimenez Ortho Nurse - Established Patient Intake Room#: 5 Patient is S/P L knee medial/partial revision to TKA. Patient using walker today and penelope hose are in place. She states the worse pain is at HS while trying to sleep. Sitting pain 4/10 Walking pain is 5/10 Date: 02/22/2023 3:16 PM Patient: Emily Macias MR#: [id number] : 1960 Age: 62 y.o. Referring Physician: Radha Irvin APRN-CNP Insurance: Payor: MEDICARE [employer] HMO OR PPO / Plan: MEDICARE AETNA [...] daily. 84 capsule 0 Cholecalciferol 250 MCG (28062 UT) capsule capsule Take by mouth daily. [...] by Nasal route once for 1 dose. Arvonia into the nose as directed. Call 911. If no response in 2 minutes use a new nasal spray in other nostril. Repeat until help arrives. 1Each 0 Omeprazole [address] tablet Take by mouth daily. oxyCODONE 5 MG tablet Take 1-2 tabs po q 4-6 hours prn pain. Wean as tolerated. 20 tablet 0 Pancrelipase, Nra-Cenm-Ufim, (CREON PO) Take 36,000 Units by mouth. [...] 84 capsule, Rfl: 0 Cholecalciferol 250 MCG (91973 UT) capsule capsule, Take by mouth daily., [...] by Nasal route once for 1 dose. Arvonia into the nose as directed. Call 911. [...] tolerated., Disp: 20 tablet, Rfl: 0 Pancrelipase, Fpq-Mqin-Ufse, (CREON PO), Take 36,000 Units by mouth. [...] zanaflex [tizanidine], and vancomycin. [facility]* Encounter Date Diagnosis Assessment Notes Treatment Notes Treatment Clinical Notes January, Alternating constipation and diarrhea (ICD-10 - R19.8) [facility] Other 05-02-2023 Evaluation note* Encounter Date Diagnosis [...] - E11.65) D/C Ozempic Samples given of [place] and pt will trial those. [facility] Other 04-24-2023 Evaluation note* Encounter Date Diagnosis [...] scan in October of last year in [place], following a colonoscopy that was done in September Start Mesalamine Dec, Alternating constipation and diarrhea (ICD-10 - R19.8) Start low fod map diet Start probiotics [facility] Other 03-23-2023 History of Present illness Narrative* [...] 11/30/2022 2:13 PM Patient: Emily Macias MR#: [id number] : 1960 Age: 61 y.o. Referring Physician: [...] []bracing Are you followed by a assistant office manager? [] [x] Name: Are you followed by pain management? [] [x] Name: Are you followed by any other specialists? [x] [] Name: RA Dr Felipa Santana Outpatient Medications Prior to Visit Medication Sig Dispense Refill Ascorbic Acid 1000 MG tablet Take 1 tablet by mouth daily. B Complex Vitamins (B COMPLEX 1 PO) Take by mouth. Biotin 13357 MCG tablet Take by mouth. Cholecalciferol 250 MCG (50034 UT) capsule capsule Take by mouth. Cobalamin [...] Take by mouth., Disp: , Rfl: Biotin 06483 MCG tablet, Take by mouth., Disp: , Rfl: Cholecalciferol 250 MCG (48785 UT) capsule capsule, Take by mouth., Disp: [...] symptoms. She has history of partial medial [place] uni knee on 08/13/[address] Lazar. [...] left knee. She has a medial partial [place] uni-arthroplasty in place with severe adjacent patellofemoral arthritis. IMPRESSION: 1.) History of left partial medial [place] uni knee on 08/13/[address] Lazar. [...] conversion from uni to total for optimal assisted management. We have discussed in great detail [...] of limb, and ultimately loss of life. 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 Despite these risks, the patient would liketo proceed with surgical planning. Today, we will initiate the pre-surgical process including nasalMRSA screening, scheduling an appointment for [facility] and the potential surgical date, andreviewing and [...] Take by mouth., Disp: , Rfl: Biotin 27412 MCG tablet, Take by mouth., Disp: , Rfl: Cholecalciferol 250 MCG (63331 UT) capsule capsule, Take by mouth., Disp: [...] migraines Zanaflex [Tizanidine] Hallucination documented in this [facility]01-31-2023 Evaluation note* Encounter Date Diagnosis Assessment Notes Treatment Notes Treatment Clinical Notes Sep, Fibromyalgia (ICD-10 - M79.7) handicap placard rx handwritten Sep, Type 2 diabetes mellitus with hyperglycemia, without long-term current use of insulin (ICD-10 - E11.65) good readings on home meter with present meds. Sep, Positive ADRI (antinuclear antibody) (ICD-10 - R76.8) Suggested getting on cancellation list at Rheumatology [facility] Other 01-13-2023 Evaluation note* Encounter Date Diagnosis Assessment Notes Treatment Notes Treatment Clinical Notes Sep, Positive ADRI (antinuclear antibody) (ICD-10 - R76.8) Sep, Fibromyalgia (ICD-10 - M79.7) [facility] Other 01-04-2023 Evaluation note* Encounter Date Diagnosis Assessment Notes Treatment Notes Treatment Clinical Notes Sep, Abdominal cramping (ICD-10 - R10.9) Sep, Type 2 diabetes mellitus with hyperglycemia, without long-term current use of insulin (ICD-10 - E11.65) advised holding or decreasing dose of ozempic to 0.25/week as this could relate to GI side effects [facility] Other 10-31-2022 NotePROCEDURE: XR TIB_FIB RT 2V COMPARISON: 08/24/2021 HISTORY: Pain in lower limb FINDINGS: BONES:No acute fracture or dislocation. Degenerative changes of the knee and ankle. Enthesopathic spurring of the calcaneus SOFT TISSUES:Negative. No visible soft tissue swelling. EFFUSION:None visible. OTHER: Negative. IMPRESSION: Osteoarthritis Electronically authenticated by: WANDA DIANE Date: 2022-07-10 13:36[facility] [facility] NoteCONSULTATION CONSULTATION DATE: 03/08/2022 HISTORY OF [...] of pain. 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 [facility] Signed and Approved by: SABINA DELGADILLO . 03/09/2022 13:38:00[facility] Diagnosis Pain in prosthetic joint, sequela- Primary documented in this encounter [facility] noteNo InformationNort [employer] (T/A) Other Evaluation note* Diagnosis Hx of total knee arthroplasty, left- Primary [facility]No assessment information [facility] Work Phone: Evaluation note* Diagnosis Post-op pain- Primary Other acute postoperative pain Pain in prosthetic joint, subsequent encounter [facility] Diagnosis Hx of total knee arthroplasty, left- Primary [facility] Diagnosis Hx of total knee arthroplasty, left- Primary Pain in prosthetic joint, subsequent encounter documented in this encounter [facility] Narrative - Reported* Type Description [...] diabetes divya itus with hyperglycemia, unspecified whether watermaster insulin use Medical History Fitzpatrick splints, right, [...] AND ADENOIDECTOMY Hospitalization History mono Hospitalization History [employer] Other History general Narrative - Reported* Type [...] diabetes divya itus with hyperglycemia, unspecified whether watermaster insulin use Medical History Fitzpatrick splints, right, [...] 01/29/2023 Hospitalization History mono Hospitalization History menegitis 3 Four 5 Group Other Reason for referral (narrative)* Consultation (Routine) - Patient to Arrange Specialty Diagnoses / Procedures Referred By Westley finnegan Referred To Contact Physical Therapy Diagnoses Hx of total knee arthroplasty, left Radha Irvin APRN-CNP [address] [place] [address] Referral ID Status Reason Start Date Expiration Date V isits Requested Visits Authorized [id number] Patient to Arrange 02/22/2023 03/18/2024 1 1 Scheduling Instructions . * Diagnostic X-Ray (Routine) - New Request Specialty Diagnoses / Procedures Referred By Westley finnegan Referred To Contact Diagnoses Hx of total knee arthroplasty, left Procedures XR KNEE LEFT 3 VIEWS Radha Irvin APRN-CNP [address] [place] [address] Referral ID Status Reason Start Date Expiration Date V isits Requested Visits Authorized [id number] New Request 02/20/2023 03/16/2024 1 1 Adiana ecomom [facility] Summary Purpose Family History No Family History Records Found Relationship Condition Age at Onset Recorded Date/T joaquina brother Heart disease Unknown father Malignant neoplasm Unknown Hypertension Unknown Family history of mental disorder Unknown mother Malignant neoplasm Unknown Diabetes mellitus Unknown Heart disease Unknown Advance Directives No Advanced Directives Records [facility] Code Status on File Code Status Date [...] 1 Abdominal cramping ( R10.9) Referral Organization [facility] [employer] [facility] Referring Provider First Name Netta Referring Provider Last Name Lindsay Referring Provider Specialty [facility] Referred Organization [facility] Referred Provider Ismael Early Referred Address [address] [place], [place],[address] Referred Provider Specialty Gastroentero logy Referral Priority Routine Referral Appointment Date 2022-12-28 General Notes Sonali Cortez 10:30:02 AM >received today, notes locked and referral faxed Sonali Cortez 09/25/2022 10:48:23 AM >pt scheduled Reason 11/21/22 See phone note - this is 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 I do not have a copy of his labs. Diagnosis 1 Positive ADRI (antinu clear antibody) (R76.8) Referral Organization [facility] [employer] reginaldo Referring Provider First Name Netta Referring Provider Last Name Lindsay Referring Provider Specialty [facility] Referred Organization [facility] Referred Provider Cara Leo Referred Address [address] [facility] [place], [place],[address] Referred Provider Specialty Rheumatology Referral Priority Routine Referral Appointment Date 2022-11-21 General Notes Sonali Cortez 09:22:28 AM >received today, notes attached and ins card attached. will call pt to see who she saw in [place] to get labs. Sonali Cortez 09/25/2022 10:37:57 AM >spoke with patient and was provided Dr. Balbuena phone number [phone] to request labs. told patient I would send referral once I had the results to send with referral, and provided her Dr. Dowling number to call in a few days. SteviebreannakaleeSonali 09/26/2022 09:28:04 AM >received labs and faxed referral. JatinkaleeSonlai 10/03/2022 10:01:58 AM >faxed first attempt letter SteviebreannakaleeSonali 10/04/2022 12:01:37 PM >received fax back that [...] XR BONE LENGTH STUDY Sagar Krause MD [address] [place] [address] Referral ID Status Reason Start Date Expiration Date V isits Requested Visits Authorized [id number] New Request 11/24/2022 12/19/2023 1 1 Specialty Diagnoses / Procedures Referred By Contac t Referred To Contact Diagnoses Pain in prosthetic joint, sequela Procedures XR KNEE LEFT 3 VIEWS Sagar Krause MD [address] [place] [id number] Referral ID Status Reason Start Date Expiration Date V isits Requested Visits Authorized [id number] New Request 11/24/2022 12/19/2023 1 1 Specialty Diagnoses / Procedures Referred By Contac t Referred To Contact Diagnoses Post-op pain Procedures XR KNEE LEFT 3 VIEWS Sagar Krause MD [address] [place] [address] Referral ID Status Reason Start Date Expiration Date V isits Requested Visits Authorized [id number] New Request 08/06/2023 08/30/2024 1 1 Specialty Diagnoses / Procedures Referred By Contac t Referred To Contact Diagnoses Hx of total knee arthroplasty, left Procedures XR KNEE LEFT 3 VIEWS Radha Irvin, TRACTOR DRILL OPERATOR-RACEBOOK WRITER [address] [place] [address] Referral ID Status Reason Start Date Expiration Date V isits Requested Visits Authorized [id number] New Request 12/25/2023 01/18/2025 1 1 Specialty Diagnoses / Procedures Referred By Westley t Referred To Contact Diagnoses Hx of total knee arthroplasty, left Procedures XR KNEE LEFT 3 VIEWS Sagar Krause MD [address] [place] [address] Referral ID Status Reason Start Date Expiration Date V isits Requested Visits Authorized [id number] New Request 02/14/2024 03/10/2025 1 1 Chief Complaint and Reason for Visit Chief Complaint Abdominal Cramping, EPI Chief Complaint Abdominal Cramping, EPI Low back pain Chief Complaint Admit Date LUIS/ 30 MINS July 17, 2024 1 :45pm talk about blood sugars July 29 024 9:30am One month follow up August 29, 2024 10:41am R14.0 R10.9 R19.8 R11.0 August 29 024 11:47am 1 month follow up September [...] 1:45pm Type 2 diabetes mellitus with hyperglyce christina July 29, 2024 9:30am Abdominal cramping August 29, 2024 10:41am Bloating August 29, 2024 10:41am GERD (gastroesophageal reflux disease) D ec2023 10:41am History of pancreatitis August 29, 024 10:41am Irritable bowel syndrome with constipati [...] Date talk about blood sugars July 29 024 9:30am One month follow up August 29, 2024 10:41am R14.0 R10.9 R19.8 R11.0 August 29 024 11:47am 1 month follow up September 30, 2024 1 :49pm R19.7 R15.9 September 30, 2024 2 :58pm LUIS/ 3 MONTHS October 21, 2024 8:57am Reason for Visit Admit Date Type 2 diabetes mellitus with hyperglyce christina July 29, 2024 9:30am Abdominal cramping August [...] with hyperglyce christina December 10, 2024 8:54am Chief Complaint Admit Date LUIS/ 3 MONTHS October 21, 2024 8:57am headaches December 10, 2024 8:54 am 6 week follow up December 26, 2024 10: 06am Reason for Visit Admit Date Chronic insomnia October 21, 2024 8:57am Depression October 21, 2024 8:57am 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, 2024 8: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 Hypothyroidism October 21, 2024 8:57am Intolerance to BiPAP/CPAP October 21, 2024 8:57am LUIS (obstructive sleep apnea) October 112024 8:57am Restless leg syndrome October 21 8:57am Vitamin B12 deficiency October 21 8:57am Maxillary sinusitis December 10, 2024 8:54 am Tension headache December 10, 2024 8:54 am Type 2 diabetes mellitus with hyperglyce christina December 10, 2024 8:54am Bloating December 26, 2024 10: 06am Fecal incontinence December 26, 2024 10: 06am Fecal urgency December 26, 2024 10: 06am Gas bloat syndrome December 26, 2024 10: 06am Irritable bowel syndrome with constipati on and diarrhea December 26, 2024 10:06am Chief Complaint Admit Date LUIS/ 3 MONTHS October 21, 2024 8:57am headaches December 10, 2024 8:54 am 6 week follow up December 26, 2024 10: 06am r15.2 r15.9 k58.2 December 26, 2024 11: 04am Reason for Visit Admit Date Chronic insomnia October 21, 2024 8:57am Depression October 21, 2024 8:57am 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, 2024 8:57am Hypothyroidism October 21, 2024 8:57am Intolerance to BiPAP/CPAP October 21, 2024 8:57am LUIS (obstructive sleep apnea) October 112024 8:57am Restless leg syndrome October 21 8:57am Vitamin B12 deficiency October 21 8:57am Maxillary sinusitis December 10, 2024 8:54 am Tension headache December 10, 2024 8:54 am Type 2 diabetes mellitus with hyperglyce christina December 10, 2024 8:54am Bloating December 26, 2024 10: 06am Fecal urgency December 26, 2024 10: 06am Gas bloat syndrome December 26, 2024 10: 06am GERD (gastroesophageal reflux disease) A pril 2024 10:06am Irritable bowel syndrome with constipati on and diarrhea December 26, 2024 10:06am Additional Source Comments INFORMATION SOURCE (unrecogn ized section and content) DATE CREATED AUTHOR 09/08/2021 [facility] DATE CREATED AUTHOR AUTHOR'S ORGANIZ ATION 01/23/2023 [facility] DATE CREATED AUTHOR AUTHOR'S ORGANIZ ATION 02/29/2024 [facility] DATE CREATED AUTHOR AUTHOR'S ORGANIZ ATION 09/22/2024 [facility] DATE CREATED AUTHOR AUTHOR'S ORGANIZ ATION 09/23/2024 [facility] DATE CREATED AUTHOR AUTHOR'S ORGANIZ ATION 12/28/2024 [facility] DATE CREATED AUTHOR AUTHOR'S ORGANIZ ATION 01/18/2025 [facility] REASON FOR VISIT (unrecogniz ed section and content) Specialty Diagnoses / Procedures Referred By Westley finnegan Referred To Contact Diagnoses Pain in prosthetic joint, sequela Procedures XR BONE LENGTH STUDY Sagar Krause MD [address] [place] [address] Referral ID Status Reason Start Date Expiration Date V isits Requested Visits Authorized [id number] New Request 11/24/2022 12/19/2023 1 1 Reason Comments Pain Reason Comments Surgical Follow-up Specialty Diagnoses / Procedures Referred By Contac t Referred To Contact Diagnoses Post-op pain Procedures XR KNEE LEFT 3 VIEWS Sagar Krause MD [address] [place] [address] Referral ID Status Reason Start Date Expiration Date V isits Requested Visits Authorized [id number] New Request 08/06/2023 08/30/2024 1 1 Reason Comments Pain Specialty Diagnoses / Procedures Referred By Contac t Referred To Contact Diagnoses Hx of total knee arthroplasty, left Procedures XR KNEE LEFT 3 VIEWS Radha Irvin, TRACTOR DRILL OPERATOR-RACEBOOK WRITER [address] [place] [address] Referral ID Status Reason Start Date Expiration Date V isits Requested Visits Authorized [id number] New Request 12/25/2023 01/18/2025 1 1 Reason Comments Follow-up Specialty Diagnoses / Procedures Referred By Contac t Referred To Contact Diagnoses Hx of total knee arthroplasty, left Procedures XR KNEE LEFT 3 VIEWS Sagar Krause MD [address] [place] [address] Referral ID Status Reason Start Date Expiration Date V isits Requested Visits Authorized [id number] New Request 02/14/2024 03/10/2025 1 1 Care Teams (unrecognized sec tion and content) Sports Lawyer Relationship Specialty Start Date End Date Netta Montoya MD [address] [place] [address] PCP - General Family Medicine 10/20/22 Sports Lawyer Relationship Specialty Start Date End Date Netta Montoya MD [address] [place] [address] PCP - General Family Medicine 10/20/22 Sports Lawyer Relationship Specialty Start Date End Date Netta Montoya MD [address] [place] [address] PCP - General Family Medicine 10/20/22 Team Status: Active Member Role Status Dates Netta Montoya MD Primary Care Provider Active Team Status: Inactive Member Role Status Dates Siva Ron MD Attending Provider Active Netta Montoya MD Primary Care Provider Active Team Status: Inactive Member Role Status Dates Netta Montoya MD Primary Care Provider Active Cara Leo MD Attending Provider Active Sports Lawyer Relationship Specialty Start Date End Date Netta Montoya MD [address] [place] [address] PCP - General Family Medicine 10/20/22 Sports Lawyer Relationship Specialty Start Date End Date Netta Montoya MD [address] [place] [address] PCP - General Family Medicine 10/20/22 Sports Lawyer Relationship Specialty Start Date End Date Netta Montoya MD [address] [place] [address] PCP - General Family Medicine 10/20/22 Sports Lawyer Relationship Specialty Start Date End Date Netta Montoya MD [address] [place] [address] PCP - General Family Medicine 10/20/22 Team [...] December 10, 2024 End: December 10, 2024 Team Status: Inactive Member Role Status Dates Netta Montoya MD Primary Care Provider Active Start: December 26, 2024 End: December 26, 2024 Jb Grady APRN Attending Provider Active Start: December 26, 2024 End: December 26, 2024 Goals (unrecognized section and content) Goals [...] BE BASED ON THE PRIMARY CLINICAL RECORDS. [employer] provides no warranty or guarantee of the accuracy or completeness of information in this document.
--- OUTSIDE RECORDS SUMMARY | 2025-01-28 08:00 | XMS_ITS | Clinical Summary ---
Author Organization [employer] [facility] Address [id number] [address] [place] [address] Care Team Providers Care Design Technology Professor Name Role Phone Soila Joseph MD Primary Care Provider [phone] Allergies Active Allergy Reactions Criticality Noted Date Comments Morphine Hives 11/18/2020 Milnacipran 02/09/2017 Tizanidine 02/09/2017 Medications doxepin (SINEquan) 100 mg capsule Take 100 mg by mouth nightly. Active oxybutynin (DITROPAN) 5 mg tablet Take 5 mg by mouth daily. MAY TAKE 2 TABS IF NEEDED Active multivitamin-C z-noyi-ibrgtqr s tablet Take 1 tablet by mouth daily. Active inositol 500 mg tablet Take 2 tablets by mouth 2 (two) times a day. Active CHOLECALCIFERO L, VITAMIN D3, (VITAMIN D3 ORAL) Take 5,000 Unit by mouth daily. Active ascorbic acid, vitamin C, (vitamin C) 1000 mg tablet Take 1,000 mg by mouth daily. Active LEVOTHYROXINE SODIUM (LEVOTHYROXINE ORAL) Take 125 mcg by mouth daily. Active ACETYLCYSTEINE (NAC ORAL) Take 1 tablet by mouth daily. Active oregano oil 1,500 mg capsule Take 1 capsule by mouth daily. Active UNABLE TO FIND Take 1 tablet by mouth 2 (two) times a day. Med Name: Protandim Active UNABLE TO FIND Med Name: ZINC PICOLINATE 50 MG DAILY Active b complex vitamins capsule Take 1 capsule by mouth daily. Active vitamin E acetate (VITAMIN E ORAL) Take 180 mg by mouth daily. Active UNABLE TO FIND Med Name: TRANSFER FACTOR MULTI IMMUNE TAKING 2 TABLETS BID Active docusate sodium (STOOL SOFTENER ORAL) Take 100 mg by mouth daily. Active ECHINACEA ORAL Take 400 mg by mouth daily. Active melatonin (CIRCADIN) 5 mg tablet Take by mouth nightly. Active CALCIUM-MAGNES IUM-ZINC ORAL Take by mouth daily. With d3 Active metFORMIN (GLUCOPHAGE) 1000 mg tablet Take 1,000 mg by mouth 2 (two) times a day with meals. Active baclofen (LIORESAL) 10 mg tablet Take 10 mg by mouth nightly. 2 tabs Active pioglitazone (ACTOS) 15 mg tablet Take 15 mg by mouth daily. Active eszopiclone (LUNESTA) 2 mg tablet Take 2 mg by mouth daily. Take immediately before bedtime Active aspirin 325 mg tablet Take 325 mg by mouth daily. Active VITAMIN A ACETATE SL Place 2,400 mcg under the tongue. Active MAGNESIUM MALATE, BULK, MISC by miscellaneous route. 1000 daily Active Active Problems Problem Noted Date Diagnosed Date Abnormal cardiovascular stress test 11/18/2020 BOYD (dyspnea on exertion) 11/18/2020 Obesity (BMI 35.0-39.9 without comorbidity) 11/08 Type 2 diabetes mellitus wit hout complication, without long-term current use of insulin 11/18/2020 Cervical spondylosis without myelopathy 07/12/20 17 Overview (07/12/2017): Added automatically from request for surgery [id number] Disorder of sacrum 03/27/2017 Neck pain 02/12/2017 Osteoarthritis of both knees 02/12/2017 Right hand pain 02/12/2017 Fibromyalgia 02/12/2017 Cervical stenosis of spine 02/12/2017 Family History Medical History Relation Name Comments Cancer Father skin Dementia Father Skin cancer Father Depression Mother Diabetes Mother Heart disease Mother Relation Name Status Comments Father Alive Mother Alive Social History Tobacco Use Types Packs/Day Years Used Date Smoking Tobacco: Never Smokeless Tobacco: Never Tobacco Cessation:Counseling Given: No Alcohol Use Standard Drinks/Week Comments No 0 (1 standard drink = 0.6 oz pur e alcohol) Childcare Answer Date Recorded Childcare Unknown 02/19/2019 Employment Answer Date Recorded Employment Unknown 02/19/2019 Purpose - Life Answer Date Recorded Purpose and direction in life Unknown Comments No Sex and Gender Information Value Date Recorded Sex Assigned at Not on file Legal Sex Female 11:26 AM EDT Gender Identity Not on file Sexual Orientation Not on file Last Filed Vital Signs Vital Sign Reading Time Taken Comments Blood Pressure 126/76 10/17/2021 11:03 AM EST Pulse 86 10/17/2021 11:03 AM EST Temperature 36.9 C (98.5 F) 10/05/2017 8:51 AM EST Respiratory Rate 16 10/05/2017 8:51 AM EST Oxygen Saturation 98% 10/17/2021 11:03 AM EST Inhaled Oxygen Concentration - - Weight 97.5 kg (215 lb) 10/17/2021 11:03 AM EST Height 165.1 cm (5' 5 ) 10/17/2021 11:03 AM EST Body Mass Index 35.78 10/17/2021 11:03 AM EST Plan of Treatment Health Maintenance Due Date Last Done Comments Diabetic Ophthalmology Exam 1959 Depression Screening 1971 Tobacco Screening 1971 Adult BMI Screening 12/15/1977 Diabetic Foot Exam 12/15/1977 DTaP,Tdap and Td Vaccines (1 - Tdap) 12/15/1978 Zoster (Shingles) Vaccine (1 of 2) 12/15/2009 Fall Risk Screening 12/15/2024 Influenza Vaccine 05/11/2025 Medical Devices Not on file Insurance AETNA MEDICARE Care Teams Design Technology Professor Relationship Specialty Start Date End Date Soila Joseph MD [address] [place], [place] [id number] PCP - General Family Medicine 11/18/20
--- OUTSIDE RECORDS SUMMARY | 2025-01-28 08:00 | XMS_ITS | Patient Health Record ---
Author Organization [facility] [place] Address [address] [place] [address] Care Team Providers Care Porcelain Turner Name Role Phone Soila Joseph Primary Care Provider Philippe Oropeza Unavailable [phone] Allergies Allergen (clinical drug ingredient) Drug/Non Drug Allergy documented on EMR Reaction Allergy Type Onset Date Status Zanaflex (tizanidine) Unknown Drug Allergy Active milnacipran Savella Unknown Drug Allergy Activ e Reason For Referral No Information Medications Medication SIG (Take, Route, Frequency, Duration) Notes Start Date End Date Status Eszopiclone 3 MG TAKE 1 TABLET BY MOUTH IMMEDIATLY BEFORE BEDTIME EVERY DAY for 90 You need to change the patient's name to Lissy. Otherwise my computer cannot find her 02/20/2024 Active CPAP Supplies -- Mask and Tubing Size mask, headgear, tubings, heated humidifier, filters and water chamber. Lifetime need. 08/17/2023 Active CPAP Supplies -- maske, tubing, eadgear, filters, heated umidifier-all supplie needed CPAP 9-12 cm H20 for 365 days HALO STYLE CHINSTRAP, NASAL CUSHION MASK - NOT FULL FACE. Please use equipment compatible with current CPAP machine. Supplies x 1 year. Active Melatonin 10 MG as directed Orally Active Eszopiclone 2 MG 1 tablet immediately before bedtime Orally Once a day for 30 days 08/17/2021 Not-Taking Mesalamine 1.2 GM 2 tablets with a meal Orally Once a day Active Doxepin HCl 100 MG 1 capsule at bedtime Orally Twice a day Not-Taking Turmeric Active Levothyroxine Sodium 112 MCG 1 tablet in the morning on an empty stomach Orally Once a day for 30 days Active Magnesium Active Multi Vitamin - 1 tablet Orally Once a day Active metFORMIN HCl ER (MOD) 1000 MG 1 tablet with evening meal Orally Once a day for 30 day(s) Active Vitamin C Active Meloxicam 7.5 MG 2 capsule Orally Once a day Active Creon 24045-712687 UNIT as directed Orally Active Ramelteon 8 MG 1 tablet at bedtime as needed Orally Once a day for 30 days Not-Taking Armodafinil 150 MG 1 tablet Orally Once a day for 30 days 08/17/2023 Active metFORMIN HCl 1000 MG 1 tablet with a meal Orally bid Active oxyBUTYnin Chloride 5 MG 1 tablet Orally Twice a day for 30 day(s) Active CeleBREX 200 MG 1 capsule with food Orally BID Active CPAP - ADJUST AUTO CPAP SETTINGS to 9-12 cm H2O Dx: LUIS G47.33 Length of need: 99 months Active Vitamin D Active Calcium + D3 Active Social History Tobacco Use: Social History Observation Description Date Details (start date - stop date) Never Smoker NA - NA Tobacco Use/Smoking Question Answer Notes Patient is a nonsmoker Alcohol Screen (Audit-C) Question Answer Notes Did you have a drink containing alcohol in the p ast year? No Points 0 Interpretation Negative Problems Problem Type SNOMED Code ICD Code Onset Dates Problem Status W/U Status Risk Notes Problem Insomnia (936704892) Insomnia, unspecified (G47.00) Active confirmed Problem 840300214930 Excessive daytime sleepiness (G47.19) Active confirmed Problem [id number] Obstructive sleep apnea syndrome, mild (G47.33) Active confirmed Encounters Encounter Location Date Provider Diagnosis [facility] Pulmonary Critical Care and Sleep De[facility] [facility] [address] [place] [address] 02/20/2024 Philippe Daniels Insomnia, unspecifie d G47.00 Assessments Encounter Date Diagnosis (ICD Code) Assessment Notes Treatment Notes Treatment Clinical Notes Section Notes 02/20/2024 Insomnia, unspecified (ICD-10 - G47.00) Plan Of Treatment No Information Insurance Providers Payer Name Payer Address Payer Phone Subscriber Number Group Number Insured Name Patient Relationship to Insured Coverage Start Date Coverage End Date AETNA MEDICARE [address] [place], [place] [id number] Lissy Chu Self - patient is the insured Medical (General) History Surgical History Surgery Date(Month/Year) History of cholecystectomy History of hemorrhoidectomy History of hysterectomy Foot Surgery, Left 10/2019 Foot Surgery, Right 03/2020 Surgical / procedural histor y ovarian cyst removed, fundiplication, rectocele
--- OUTSIDE RECORDS SUMMARY | 2025-01-28 08:01 | XMS_ITS | Clinical Summary ---
Author Organization [employer] Address [address] [place] [address] Care Team Providers Care Bilingual Medical Assistant Name Role Phone Soila Joseph MD Primary Care Provider [phone] Allergies Active Allergy Reactions Criticality Noted Date Comments Milnacipran Headache 11/30/2022 migraines Vancomycin Hives Low 01/29/2023 Hives, itching Tizanidine Hallucination 11/30/2022 Medications levothyroxine 112 MCG tablet Take 1 tablet by mouth daily. AM 10/02/19 23 Active metFORMIN 1000 MG tablet 2 times daily. 08/29/20 Active Cholecalciferol 250 MCG (20134 UT) capsule capsule Take by mouth daily. Active Multiple Vitamins-Minerals (One Daily Calcium/Iron) tablet Take 1 tablet by mouth daily. Active Cobalamin Combinations (B-12) 100-[address] under tongue daily. Active Magnesium 500 MG capsule Take by mouth daily. Active Specialty Vitamins Products (ICAPS lutein & zeaxanthin) Tab DR Take 1 tablet by mouth daily. Active Pyridoxine HCl (B-6) 100 MG tablet Take by mouth daily. Active Zinc 50 MG capsule Take by mouth daily. Active Melatonin 5 MG capsule Take by mouth at bedtime. Active B Complex Vitamins (B COMPLEX 1 PO) Take by mouth daily. Active Vitamin A 2400 MCG (8000 UT) tablet Take by mouth daily. Active Probiotic Product (PROBIOTIC DAILY PO) Take by mouth. Activ e Omeprazole [address] tablet Take by mouth daily. Active Calcium Carb-Cholecalcife rol (CALCIUM + D3 PO) Take by mouth daily. Active Xiidra 5 % Solution ophthalmic solution Place in both eyes 2 times daily. 11/06/19 Active Mesalamine 1.[address] tablet Take 2 tablets by mouth daily. 04/24/20 23 Active baclofen 10 MG tablet Take 2 tablets by mouth as needed. Active dapagliflozin 5 MG tablet Take 1 tablet by mouth daily. Active Propylene Glycol (SYSTANE COMPLETE OP) Apply to eye as needed. Active Pancrelipase, Iia-Vvry-Lbmg, (CREON PO) Take 36,000 Units by mouth. 2 tablet by mouth with each meal, 1 tablet by mouth with 1 snack daily Active Aspirin [address] tablet Take 1 tablet by mouth 2 times daily. This medication is for blood clot prevention. 60 tablet 01/30/20 Active Docusate 100 MG capsule Take 1 capsule by mouth 2 times daily. 60 capsule 01/30/20 Active Acetaminophen 325 MG tablet Take 2 tablets by mouth every 4 hours as needed for Mild Pain. 50 tablet 1 01/30/20 Active naloxone 4 MG/0.1ML 1 spray by Nasal route once for 1 dose. Wheeler into the nose as directed. Call 911. If no response in 2 minutes use a new nasal spray in other nostril. Repeat until help arrives. 1 Each 01/30/20 Active oxyCODONE 5 MG tabletIndications :Acute postoperative pain of knee Take 1-2 tabs po q 4-6 hours prn pain. Wean as tolerated. 20 tablet 02/07/20 Active hydroCODone-aceta minophen 5-325 MG tabletIndications :Acute postoperative pain of knee Take 1-2 tablets by mouth every 6 hours as needed for Severe Pain for up to 7 days. Do not take over 4000mg acetaminophen daily. 20 tablet 02/13/20 Active traMADol 50 MG tabletIndications :Acute postoperative pain of knee 1 tabs po q 6 hr PRN pain 20 tablet 02/17/20 Active Celecoxib 200 MG capsule Take 1 capsule by mouth 2 times daily. 60 capsule 03/23/20 Active methylPREDNIsolon e 4 MG Tab Therapy Pack tablet Take 1 tablet by mouth As directed. follow package directions 21 tablet 08/09/20 Active dexAMETHasone 4 MG/ML Solution injectionIndicati ons:Pain in prosthetic joint, subsequent encounter 1 mL by Other route As directed for 18 doses. (1 cc 3 x a week at physical therapy via iontophoresis) for up to 18 doses. 30 mL 12/21/19 24 Active dexAMETHasone 4 MG/ML Solution injection 1 mL by Other route As directed for 18 doses. (1 cc 3 x a week at physical therapy via iontophoresis) for up to 18 doses. 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 Lyme disease 02/12/2013 Sleep dysfunction with sleep stage disturbance 0 10/10/2012 Aortic valve disorder 11/23/2010 Encounters Date Type Department Care Team Description [facility]04[facility] [address] [phone] Iza Ferrari Other (Hx of Revision partial to total knee - left) from Last 3 Months Family History Medical History Relation Name Comments Gout Father Lipid Disorder Father Pain Father chronic back pa in Skin Cancer Father Arthritis - Osteo Mother Diabetes Mother Hypertension Mother Myocardial Infarction Mother Stroke Mother Relation Name Status Comments Father Alive Mother Alive Social History Tobacco Use Types Packs/Day Years Used Date Smoking Tobacco: Never Smokeless Tobacco: Never Tobacco Cessation:Counseling Given: Not Answered Alcohol Use Standard Drinks/Week Comments Not Currently 0 (1 standard drink = 0.6 oz pur e alcohol) Comments Unknown Sex and Gender Information Value Date Recorded Sex Assigned at Not on file Legal Sex Female 4:37 PM EST Gender Identity Not on file Sexual Orientation Not on file Last Filed Vital Signs Vital Sign Reading Time Taken Comments Blood Pressure 110/85 01/30/2023 10:09 AM EDT Pulse 71 01/30/2023 7:05 AM EDT Temperature 36.2 C (97.1 F) 02/21/2024 1:19 PM EDT Respiratory Rate 18 01/30/2023 7:05 AM EDT Oxygen Saturation 97% 01/30/2023 8:00 AM EDT Inhaled Oxygen Concentration - - Weight 86.6 kg (191 lb) 02/21/2024 1:19 PM EDT Height 165.1 cm (5' 5 ) 02/21/2024 1:19 PM EDT Body Mass Index 31.78 02/21/2024 1:19 PM EDT Plan of Treatment Health Maintenance Due Date Last Done Comments DEXA SCAN DISCUSSION 1959 DIABETIC FOOT EXAM 1959 EYE EXAM 1959 HEPATITIS C VIRUS SCREENING 1959 LIPIDS 1959 TETANUS 1959 TSH 1959 URINE MICROALBUMIN TEST 1959 TDAP (ADULT) 12/15/1978 CERVICAL CANCER SCREENING DISCUSSION 12/15/1980 MAMMOGRAM SCREENING DISCUSSION 1999 COLORECTAL CANCER SCREENING DISCUSSION 12/15/2004 PNEUMOCOCCAL VACCINE SERIES (1 of 1 - PCV) 12/15/2009 ZOSTER (SHINGLES) VACCINE (1 of 2) 12/15/2009 HBA1C TEST 07/06/2023 01/04/2023 COVID-19 VACCINE (1 - 2023-2 5 season) 2024 INFLUENZA VACCINE (Season Ended) 2025 RSV VACCINE (1 - 1-dose 75+ series) 12/15/2034 HEP B VACCINE Aged Out No longer elig ible based on patient's age to complete this topic Medical Devices Implanted Type Area [employer] Supervisor Device Identifier Shelf Expiration Date Model / Serial / Lot Patella - Knee - [id number] Implanted:Qty: 1 on 01/29/2023 by Sagar Gordon MD at [facility] Left: Knee 12/09/2027 / / [id number] Revision Pressfit Stem 12mmx 60 Implanted:Qty: 1 on 01/29/2023 by Sagar Gordon MD at [facility] Left: Knee 07/10/2032 1513-12-060 / / [id number] Revision Tibial Base Sz 2 Implanted:Qty: 1 on 01/29/2023 by Sagar Gordon MD at [facility] Left: Knee 09/09/2032 1506-40-002 / / [id number] Rev Offset Stem 2mm Implanted:Qty: 1 on 01/29/2023 by Sagar Gordon MD at [facility] Left: Knee DEPUY 01/08/2028 1513-02-000 / / [id number] Rev Distal Femoral Augment Sz 5 4mm Implanted:Qty: 1 on 01/29/2023 by Sagar Gordon MD at [facility] Left: Knee DEPUY 03/09/2032 1547-05-001 / / [id number] Rev Crs Femoral Sz 5 Left Implanted:Qty: 1 on 01/29/2023 by Sagar Gordon MD at [facility] Left: Knee DEPUY 03/09/2032 1504-40-105 / / [id number] Palacos R 1 X 40 Us - [id number] Implanted:Qty: 2 on 01/29/2023 by Sagar Gordon MD at [facility] Left: Knee 07/10/2027 / / [id number] Palacos [employer] High-Viscosity With Gentamicin - [id number] Implanted:Qty: 1 on 01/29/2023 by Sagar Gordon MD at [facility] Left: Knee 11/07/2025 / / [id number] Insert - Knee - [id number] Implanted:Qty: 1 on 01/29/2023 by Sagar Gordon MD at [facility] Left: Knee DEPUY 06/09/2027 / / [id number] Procedures Procedure Name Priority Date/Time Associated Diagnosis Comments HEMOGLOBIN A1C Routine 01/04/2023 12:50 PM EDT Preop testing Abnormal finding of blood chemistry, unspecified from Last 3 Months or Most Recently Relevant to Health Maintenance Results * (ABNORMAL) HEMOGLOBIN A1C (01/04/2023 12:50 PM EDT) HEMOGLOBIN A1C 6.5(H) <6 % [address] Comment: NORMAL <5.7% PREDIABETES 5.7-6.4% DIABETES 6.5% OR HIGHER Estimated Average Glucose 140 mg/dL [address] Blood 01/04/2023 12:5 0 PM EDT 01/04/2023 1:03 PM EDT Sagar Gordon MD HEMATOLOGY ORDERABLES Final Resu lt [address] [address] from Last 3 Months or Most Recently Relevant to Health Maintenance Insurance MEDICARE [employer] [address] [place] [address] Advance Directives For more information, please contact: [phone] (7:30 AM - 6PM [facility], Sunday-Sunday) * Full Code (Latest Code Status on File) Date Activated Date Inactivated Comments 01/29/2023 4:58 PM Care Teams Bilingual Medical Assistant Relationship Specialty Start Date End Date Soila Joseph MD PCP - General Family Medicine 10/20/22
--- OUTSIDE RECORDS SUMMARY | 2025-01-28 08:02 | XMS_ITS | Clinical Summary ---
Author Organization [facility] Healthcare Address [address] [place] [address] Care Team Providers Care Digital Media Buyer Name Role Phone Unavailable Primary Care Provider Unavailabl e Social History Tobacco Use Types Packs/Day Years Used Date Smoking Tobacco: Never Assessed Comments Unknown Sex and Gender Information Value Date Recorded Sex Assigned at Not on file Legal Sex Female 6:53 PM EDT Gender Identity Not on file Sexual Orientation Not on file Last Filed Vital Signs Vital Sign Reading Time Taken Comments Blood Pressure 113/68 02/06/2019 12:00 PM EDT Pulse - - Temperature - - Respiratory Rate - - Oxygen Saturation - - Inhaled Oxygen Concentration - - Weight 90.7 kg (200 lb) 02/06/2019 12:00 PM EDT Height 165.1 cm (5' 5 ) 02/06/2019 12:00 PM EDT Body Mass Index 33.28 02/06/2019 12:00 PM EDT Plan of Treatment Not on file
--- OUTSIDE RECORDS SUMMARY | 2025-01-28 08:03 | XMS_ITS | Clinical Summary ---
Author Organization [facility] Address [address] [place], [place] [id number] Care Team Providers Care Guest Specialist Name Role Phone Andrew Berg Primary Care Provider [phone] Allergies Active Allergy Reactions Criticality Noted Date Comments Tizanidine Hcl Other: See Comments 10/11/2015 felt weird Medications Thyroid, Pork, 65 mg tab Take 130 mg by mouth once daily. Active oxybutynin XL (DITROPAN XL) 5 mg 24 hr tablet Take 5 mg by mouth once daily. Active Ascorbic Acid 1,000 mg tablet Take 1,000 mg by mouth once daily. Active cyanocobalamin, vitamin B-12, 5,000 mcg subl Dissolve under the tongue. Active Multivitamin capsule Take 1 capsule by mouth once daily. Active Cholecalciferol, Vitamin D3, 10,000 unit cap Take by mouth. Active BEARBERRY LEAF EXTRACT (UVA URSI LEAF FLUID EXTRACT MISC) Active ALOE CAPE MISC Activ e LACTOBACILLUS ACIDOPHILUS (MORE-DOPHILUS ORAL) Take by mouth. Active MAGNESIUM ORAL Take by mouth. Active FLAXSEED OIL (OMEGA 3 ORAL) Take by mouth. Active IODINE ORAL Take by mouth. Active Active Problems Problem Noted Date Diagnosed Date Lyme disease 10/11/2015 Social History Tobacco Use Types Packs/Day Years Used Date Smoking Tobacco: Never Alcohol Use Standard Drinks/Week Comments No 0 (1 standard drink = 0.6 oz pur e alcohol) Comments No Sex and Gender Information Value Date Recorded Sex Assigned at Not on file Legal Sex Female 9:11 AM EST Gender Identity Not on file Sexual Orientation Not on file Last Filed Vital Signs Vital Sign Reading Time Taken Comments Blood Pressure 122/72 10/11/2015 3:22 PM EST Pulse 118 10/11/2015 3:22 PM EST Temperature 36.7 C (98 F) 10/11/2015 3:22 PM EST Respiratory Rate 16 10/11/2015 3:22 PM EST Oxygen Saturation - - Inhaled Oxygen Concentration - - Weight 94.3 kg (208 lb) 10/11/2015 3:22 PM EST Height 165.1 cm (5' 5 ) 10/11/2015 3:22 PM EST Body Mass Index 34.61 10/11/2015 3:22 PM EST Plan of Treatment Health Maintenance Due Date Last Done Comments Anxiety Screening 12/15/1977 Depression Screening 12/15/1977 HIV Screening 12/15/1977 Hepatitis C Screening 12/15/1977 DTaP,Tdap,Td Vaccine (1 - Tdap) 12/15/[address] Colonography 12/15/2004 Cologuard (FIT-DNA) 12/15/2004 Colonoscopy 12/15/2004 Colorectal Cancer Screening 12/15/2004 Diabetes Screening 12/15/2004 Fecal Occult Blood 12/15/2004 Lipid Screening 12/15/2004 Sigmoidoscopy 12/15/2004 Pneumococcal Vaccine: 50+ (1 of 1 - PCV) 12/15/2009 Shingrix Vaccine (1 of 2) 12/15/2009 Covid-19 Vaccine (1 - season) 2024 Advance Directive Discussion 12/15/2024 Bone Density Screening 12/15/2024 Influenza Vaccine (Season Ended) 2025 RSV Vaccine (1 - 1-dose 75+ series) 12/15/[address] [place] [address] [place] [address] MEDICARE ADVANTAGE PPO Care Teams Guest Specialist Relationship Specialty Start Date End Date Andrew Berg [facility] [address] [facility] [place] [address] PCP - General 12/20/00
--- OUTSIDE RECORDS SUMMARY | 2025-01-28 08:08 | XMS_ITS | Patient Health Record ---
Author Organization [facility] vices Address [address] [place], [place] [address] Care Team Providers Care Digital Measurement Advisor Name Role Phone Coral Dawn Unavailable [phone] Marsha Ramos Unavailable [phone] Allergies Allergen (clinical drug ingredient) Drug/Non Drug Allergy documented on EMR Reaction Allergy Type Onset Date Status tizanidine Zanaflex Comments: voices and visual color changes Drug Allergy 01/20/2015 Active milnacipran Savella Headache Drug Allergy 01/20/2015 Acti ve Reason For Referral No Information Medications Medication SIG (Take, Route, Frequency, Duration) Notes Start Date End Date Status Melatonin Active Amoxicillin 500 MG 4 capsule Orally 1 h our prior to dental treatment for 1 days 01/30/2022 Not-Taking CeleBREX 200 MG 1 capsule with food Orally Once a day Active Ibuprofen 800 MG 1 tablet with food Orally Three times a day for 7 days 10/19/2021 Not-Taking Omeprazole 20 MG 1 capsule 30 minutes before morning meal Orally Once a day Active Probiotic 1-250 BILLION-MG as directed Orally Active Ozempic Active Metamucil Not-Taking Bentyl Not-Taking Creon [id number] UNIT Oral for 30 Days Active Lomotil Unknown Bentyl 20 MG 1 tablet Orally Thre e times a day for 30 day(s) 11/07/2022 Active Linzess 72 MCG Oral for 30 Days Not-Taking Methocarbamol 750 MG 1 tablet Orally zack ry 4 hrs for 30 day(s) 11/07/2022 Active prednisoLONE Acetate 1 % Ophthalmic for 21 Days Not-Taking Levothyroxine Sodium Active Amoxicillin 500 MG 4 capsule Orally 1 h our prior to dental treatment for 1 days 03/16/2022 Not-Taking metFORMIN HCl Active Zolpidem Tartrate 10 MG Oral for 30 Days Not-Taking Magnesium Malate Act ag Ozempic (0.25 or 0.5 MG/DOSE) 2 MG/1.5ML Subcutaneous for 42 Days Not-Taking Multi Vitamin Active Vitamin D-3 Active Penicillin V Potassium 500 MG 1 tablet Orally 4 times a day for 7 day(s) 10/19/2021 Not-Taking Actos Not-Taking Amoxicillin 500 MG 4 capsules Orally 1 hour prior to dental treatment for 1 day 10/12/2021 Not-Taking Vitamin C Active Amoxicillin 500 MG 1 capsule Orally Thr ee times a day for 7 day(s) 10/12/2021 Not-Taking Zinc Picolinate Acti ve Diclofenac Sodium No t-Taking Vitamin B Complex Ac tive Baclofen Not-Taking Stool Softener Activ e oxyBUTYnin Not-Takin g oxyBUTYnin Chloride ER 5 MG 1 tablet Orally Once a day for 30 days 07/18/2023 Active Lunesta Active Doxepin HCl Not-Taki ng Vitamin A Active Inositol Not-Taking Voltaren Not-Taking Elderberry Not-Takin g NAC Not-Taking Social History Tobacco Use: Social History Observation Description Date Details (start date - stop date) Never Smoker NA - NA Sex Assigned At : Social History Observation Description Sex Assigned At Female Tobacco Use/Smoking Question Answer Notes Tobacco use: nonsmoker Problems Problem Type SNOMED Code ICD Code Onset Dates Problem Status W/U Status Risk Notes Problem 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 Problem Hypothyroidism (24490173) Hypothyroidism (E03.9) Active confirmed Problem Lower urinary tract infectious disease (disorder) (1419754) UTI (lower urinary tract infection) (N39.0) Active confirmed Problem Depression screening (743354635) Screening for depression (Z13.31) Active confirmed Description:De pression screen Problem Gynecological examination normal (629278665850467 ) Well female exam with routine gynecological exam (Z01.419) Active confirmed Comment:pt does breast exams, taking calcium and vitamin D last pap of vaginal cuff done 2011 declines std testing annual mammograms pt to followup with pcp for annual exam and bloodwork,Desc ription:Well woman exam with routine gynecological exam Problem Gynecological examination normal (084804103076733 ) Well woman exam with routine gynecological exam (Z01.419) Active confirmed Comment:1. RTC annual/PRN prior 2. Pap w/ cotesting: cuff pap sent today d/t hx of ASC-US in 2014 3. Screening mammogram: ordered 4. Screening colonoscopy: follows w/ PCP for this 5. Counselled on healthy diet/exercise 6. Counselled to take 1200mg Calcium and 600IU vitamin D to prevent osteoporosis 7. Counselled to use barrier protection to prevent STD's., Problem Pityriasis versicolor (45663183) Chromophytosis (B36.0) Active confirmed Comment:untann ed lesions seen on chest, neck and back,Descripti on:Tinea versicolor Problem History of hysterectomy (610190841) History of hysterectomy (Z90.710) Active confirmed Problem Diarrhea (50508203) Diarrhea (R19.7) Active confirmed Comment: pt has been on doxephin started by colonoscopy surgeon Dr. Dotson, pt is in process of transitioning pcp, will give enough to last until appointment, no more refills, Problem Screening for malignant neoplasm of cervix (265261849) Cervical cancer screening (Z12.4) Active confirmed Problem Mixed incontinence (099595083) Mixed incontinence urge and stress (788.33) (788.33) Active confirmed Comment:pt to do bladder retraining, kegel exercises, avoid bladder irritants. pt aware of side effects of dry eyes, dry mouth, somnolence etc.Pt feels good with it, happy with results, improved but still has dribbling, no side effects, will try 10 mg ER. Pt to call if any side effects, Problem Atypical squamous cells of uncertain significance, probably benign (morphologic abnormality) (309666854) ASCUS favor benign (796.9) Active confirmed Comment:hpv neg, repeat in 1 year, Problem Vaginal dryness (63664607) Vaginal dryness, menopausal (N95.1) Active confirmed Comment:pt to use replens, coconut oil, Problem Screening for malignant neoplasm of breast (616253866) Breast cancer screening by mammogram (Z12.31) Active confirmed Problem Human papilloma virus screening (230685760) Screening for HPV (human papillomavirus) (Z11.51) Active confirmed Problem Lichen planus (3748678) Lichen planus (L43.9) Active confirmed Comment:suspec penelope, rash all over body, areas that arent tanned are worse, Problem Localized superficial swelling of skin (839007983) Axillary lump (782.2) (782.2) Active confirmed Comment:pt feels lump in right axilla. May be ingrown hair, similar lump palpated in other armpit, may be muscular. Pt had normal mammogram this year. Will obtain ultrasound of area., Problem Bladder cystocele (347171350) Bladder cystocele (618.01) Active confirmed Comment:2nd degree,Story:h istory of bladder suspension with hysterectomy,D escription:Cys tocele Encounters Encounter Location Date Provider Diagnosis Main [address] [place], [place] [id number] 02/11/2024 Marsha Ramos Plan Of Treatment No Information Insurance Providers Payer Name Payer Address Payer Phone Subscriber Number Group Number Insured Name Patient Relationship to Insured Coverage Start Date Coverage End Date [employer] Medicare [address] [place] [address] [id number] Kimberley, Kia Self - patient is the insured 2 [employer] [facility] [address] [place] [address] [id number] Kimberley Kia Self - patient is the insured 1 Medical (General) History Medical History History ICD Code Anxiety Bursitis, COMMENTS: lower back Depression Hypothyroidism Irritable bowel syndrome Lumbar Spine Disease Lyme disease, COMMENTS: DX in September 29 Osteoarthritis Spondylosis Surgical History Surgery Date(Month/Year) Carpal Tunnel Surgery - Right Cyst Removal , COMMENTS: right rib and l eft upper back Ovarian cystectomy Hysterectomy, COMMENTS: menorrhagia, TLH , no bso 2003 Meniscus Repair : Left, Shoulder Surgery, COMMENTS: tear : Right , bladder sling, COMMENTS: at time of hyst erectomy Great Toe Joint Replacement: Left, Right Elbow Release Cholecystectomy Fundoplication Tonsillectomy and adenoidectomy Rectocele repair, COMMENTS: Hemeroidectomyposterior colporrhaphy 2009 gallbladder removed 1995 EXTENSIVE HYSTERECTOMY fundoplication 08/2004 right rib left shoulder mass 2000 partial knee 08/2017 knee surgery 01/2023
--- OUTSIDE RECORDS SUMMARY | 2025-01-28 08:09 | XMS_ITS | Encounter Summary ---
Author Organization [employer] [facility] tem Address [id number] [address] [place] [address] Care Team Providers Care Manager Ct Name Role Phone Soila Joseph MD Primary Care Provider [phone] Encounter Details Date Type Department Care Team (Late st Contact Info) Description 12/09/2020 Orders Only [facility] [address] [place] [id number] Vicki Harrell MA BOYD (dyspnea on exertion) Social History Tobacco Use Types Packs/Day Years Used Date Smoking Tobacco: Never Smokeless Tobacco: Never Alcohol Use Standard Drinks/Week Comments [...] on file Sexual Orientation Not on file COVID-19 Exposure Response Date Recorded In the last month, have you been in contact with someone who was confirmed or suspected to have Coronavirus / COVID-19? No / Unsure 11/18/2020 7:59 AM EST documented as of this encounter Plan of Treatment Not on file documented as of this encounter Procedures Procedure Name Priority Date/Time Associated Diagnosis Comments NUC STRESS LEXISCAN Routine 12/06/2020 BOYD (dyspnea on exertion) ECHO COMPLETE W CONTRAST Routine 11/22/2020 BOYD (dyspnea on exertion) documented in this encounter Results * Nuc stress Lexiscan (12/06/2020) Anatomical Region Laterality Modality Chest N/A Nuclear Medicine Nick Lester MD CV STRESS ORDERABLES Final Re sult * Echo complete W/ contrast (11/22/2020) Anatomical Region Laterality Modality Chest N/A Ultrasound Nick Lester MD CV ECHO ORDERABLES Final Resu lt documented in this encounter Visit Diagnoses Diagnosis BOYD (dyspnea on exertion) Other dyspnea and respiratory abnormality documented in this encounter Care Teams Manager Ct Relationship Specialty Start Date End Date Soila Joseph MD [address] [place] [address] PCP - General Family Medicine 11/18/20 documented as of this encounter
--- OUTSIDE RECORDS SUMMARY | 2025-01-28 08:10 | XMS_ITS | Encounter Summary ---
Author Organization [employer] tem Address [facility]-[id number] [address] [place] [address] Care Team Providers Care Test Boring Crew Chief Name Role Phone Soila Joseph MD Primary Care Provider Encounter Details Date Type Department Care Team (Late st Contact Info) Description 11/22/2020 Orders Only [facility] [address] [place] [phone] External, Scanning Provider Social History Tobacco Use Types Packs/Day Years [...] Procedure Name Priority Date/Time Associated Diagnosis Comments STRESS TEST (EXERCISE ONLY) Routine 10/21/2020 ECG 12-LEAD Routine 10/21/2020 documented in this encounter Results * Stress test (exercise only) (10/21/2020) Anatomical Region Laterality Modality Chest N/A Other us Scanning Provider External CV STRESS ORDERABLES Final Result * ECG 12 lead (10/21/2020) us Scanning Provider External ECG ORDERABLES Final Result MANUALLY TRANSCRIBED RESULTS documented in this encounter Visit Diagnoses Not on filedocumented in this encounter Care Teams Test Boring Crew Chief Relationship Specialty Start Date End Date Soila Joseph MD [address] [place] [address] PCP - General Family Medicine 11/18/20 documented as of this encounter
--- OUTSIDE RECORDS SUMMARY | 2025-01-28 08:11 | XMS_ITS | Encounter Summary ---
Author Organization [employer] s tem Address [facility] [place]-[id number] [address] [place] [address] Care Team Providers Care Client Experience Administrator Name Role Phone Soila Joseph MD Primary Care Provider [phone] Encounter Details Date Type Department Care Team (Late st Contact Info) Description 11/02/2020 Orders Only [facility] [address] [place] [phone] External, Scanning Provider Social History Tobacco Use [...] on file Sexual Orientation Not on file documented as of this encounter Plan of Treatment Not on file documented as of this encounter Procedures Procedure Name Priority Date/Time Associated Diagnosis Comments STRESS TEST (EXERCISE ONLY) Routine 10/21/2020 documented in this encounter Results * Stress test (exercise only) (10/21/2020) Anatomical Region Laterality Modality Chest N/A Other us Scanning Provider External CV STRESS ORDERABLES Final Result documented in this encounter Visit Diagnoses Not on filedocumented in this encounter Care Teams Client Experience Administrator Relationship Specialty Start Date End Date Soila Joseph MD [address] [place] [address] PCP - General Family Medicine 11/18/20 documented as of this encounter
--- OUTSIDE RECORDS SUMMARY | 2025-01-28 08:13 | XMS_ITS | Encounter Summary ---
Author [facility] Address [id number] [address] [place] [address] Care Team Providers Care Clam Sorter Name Role Phone Soila Joseph MD Primary Care Provider Encounter Details Date Type Department Care Team (Late st Contact Info) Description 10/28/2020 Orders Only [facility] [address] [place] [phone] External, Scanning Provider Social History Tobacco Use [...] Priority Date/Time Associated Diagnosis Comments NUC STRESS LEXISCAN/EXERCISE Routine 10/21/2020 documented in this encounter Results * Nuc stress Lexiscan/Exercise (10/21/2020) Anatomical Region Laterality Modality Chest N/A Nuclear Medicine us Scanning Provider External CV STRESS ORDERABLES Final Result documented in this encounter Visit Diagnoses Not on filedocumented in this encounter Care Teams Clam Sorter Relationship Specialty Start Date End Date Soila Joseph MD [address] [place] [address] PCP - General Family Medicine 11/18/20 documented as of this encounter
--- NOTE | 2025-01-28 08:21 | PM.CN ---
Consult Note: HPI Data of Consult Patient: known to practice within the last 3 years Requesting Physician: Tayler Augustin NP Primary Care Provider: Soila Joseph MD Consult Narrative Reason for consult: bilateral low back pain and left knee pain Narrative: 64yof who presents for assessment. worsening pain through low back into bilateral hips. imaging reviewed, which shows disc bulge and tear at l4-5 to the right. has completed >6 weeks of provider directed home exercises, without benefit. uses celebrex, robaxin, tramadol, zonegran. Pt continues to have moderate to severe daily pain severely impacting her day to day life in low back, BLE, and left knee. MRAITZA 42%. Pain today 5/10, increasing to 9/10. Pain stabbing, sharp, pinching, burning. Pain increased with standing, walking, pushing, pulling, sleep. Pain improved with changing positions and heat. pending evaluation with Dr Leavitt for scs trial consultation. pt recently underwent left genicular nerve RFA with mild improvement at this time, remains in the healing phase. since last visit she continues to have right ankle pain post fall, has not been evaluated by PCP. cc:: CC: Tayler Augustin NP Review of Systems ROS Status of ROS 10 or more systems reviewed and unremarkable except as noted in history and below Musculoskeletal Reports: back pain, extremity pain, extremity swelling and joint pain PFSH PFSH Medical History (Updated 12/31/24 @ 10:05 by Tayler Augustin NP) Rectocele ?N81.6 - Rectocele (ICD-10) Cataract, left eye ?H26.9 - Unspecified cataract (ICD-10) Cataract, right eye ?H26.9 - Unspecified cataract (ICD-10) History of revision of total replacement of left knee joint ?Z96.652 - Presence of left artificial knee joint (ICD-10) Plantar fasciitis of right foot ?M72.2 - Plantar fascial fibromatosis (ICD-10) Tear of left meniscus as current injury ?S83.207A - Unspecified tear of unspecified meniscus, current injury, left knee, initial encounter (ICD-10) Ruptured ovarian cyst ?N83.209 - Unspecified ovarian cyst, unspecified side (ICD-10) Surgical History H/O hemorrhoidectomy ?Z98.890 - Other specified postprocedural states (ICD-10) History of fundoplication ?Z98.890 - Other specified postprocedural states (ICD-10) History of hysterectomy ?Z90.710 - Acquired absence of both cervix and uterus (ICD-10) History of laparoscopic cholecystectomy ?Z90.49 - Acquired absence of other specified parts of digestive tract (ICD-10) History of carpal tunnel surgery of right wrist ?Z98.890 - Other specified postprocedural states (ICD-10) History of tonsillectomy and adenoidectomy ?Z90.89 - Acquired absence of other organs (ICD-10) Meds Home Medications and Allergies Home Medications ?Medication ?Instructions ?Recorded ?Confirmed ?Type celecoxib 200 mg capsule (Celebrex) 200 mg PO BID 06/24/24 01/05/25 History eszopiclone 3 mg tablet (Lunesta) 3 mg DAILY 06/24/24 History levothyroxine 100 mcg tablet 100 mcg PO DAILY 06/24/24 01/05/25 History (Euthyrox) metformin 1,000 mg tablet 1,000 mg PO BID 06/24/24 01/05/25 History multivitamin 1 tab PO DAILY 06/24/24 01/05/25 History omeprazole 20 mg capsule,delayed 20 mg PO DAILY 06/24/24 01/05/25 History release oxybutynin chloride 5 mg tablet 5 mg PO DAILY 06/24/24 01/05/25 History tramadol 50 mg tablet 50 mg PO BID 06/24/24 01/05/25 History zonisamide 50 mg capsule 100 mg (2 x 50 mg) PO DAILY #60 09/18/24 01/05/25 Rx caps zonisamide 100 mg capsule 100 mg PO DAILY #30 caps 10/21/24 01/05/25 Rx (Zonegran) Allergies Allergy/AdvReac Type Severity Reaction Status Date / Time milnacipran (From Savella) Allergy Unknown Unknown Verified 01/05/25 11:09 tizanidine (From Zanaflex) Allergy Unknown Unknown Verified 01/05/25 11:09 Exam Constitutional Documenting provider has reviewed patient's vital signs: yes Common normals: no apparent distress, oriented x3, healthy appearing, alert and well nourished General appearance: cooperative HENMT Common normals: normocephalic, hearing grossly normal bilaterally and moist oral mucous membranes Head and scalp: normocephalic Eye Common normals: PERRL Pupil: PERRL Neck & C-Spine Common normals: full ROM General: normal visual inspection Chest Common normals: inspection of chest normal Respiratory Common normals: normal respiratory effort, no retractions and no use of accessory muscles Back & Pelvis Lumbar spine/lower back: ROM limited, pain with ROM and straight leg raise positive right Sacroiliac joints: SI joint(s) abnormal Other: bilateral sij positive tiffany(patricks), gaenslens, thigh thrust, compression test decreased sensation to right L4,5,S1 strength 4/5 in BLE Extremity Right lower extremity: ankle joint (full ROM with increased pain) Right ankle: inspection (edema noted to lateral ankle) and ROM Left lower extremity: knee joint Other: left knee increased pain with palpation, weight bearing. no instability noted, no edema noted, warm to touch. full ROM right foot/ankle no redness, edema noted to right ankle and warm to touch Neuro Common normals: oriented x3 Sensorium/orientation: alert Psych Common normals: mental status grossly normal, thought process normal, cooperative, affect normal, speech normal and activity/motor behavior normal Speech: normal speech Thought process: normal thought process Assessment and Plan Assessment and Plan (1) Chronic knee pain after total replacement of left knee joint: (2) Lumbar radiculopathy: Assessment and Plan: The patient has had over 3 months of moderate to severe low back and BLE pain with functional impairment and inadequate response to conservative care including NSAIDS (unless there are contraindication such as concurrent blood thinners), multiple oral or topical pain medications, and home exercise program/physical therapy.? Patient has completed >6 weeks of guided home exercise program and/or formal physical therapy program without relief of their symptoms.? The Oswestry Disability Index was completed, and the patient scored a 42%.? The patient noted the following:?? moderate to severe pain impacting ADLs, sitting, standing, walking, sleeping, social life, travel We discussed the risks and benefits of the procedure with the patient, and we are NOT planning on using sedation as outlined in the guidelines from Medicare unless there is a documented reason that sedation would be strongly recommended.?? ?The procedure will be completed with fluoroscopic guidance.? (3) Bilateral sacroiliitis: (4) Acute right ankle pain: Plan left genicular nerve RFA for chronic left knee pain post knee replacement remains in the healing phase encouraged to f/u with Dr Leavitt for consideration of SCS trial in the meantime trial right L4-5 L5-S1 TFESI under fluoroscopy for lumbar radiculopathy f/u with PCP for right ankle pain continue HEP as tolerated increase zonegran 50mg am and 100mg HS continue robaxin 500-1000mg TID PRN pain/spasms continue celebrex 200mg BID PRN f/u 2 weeks after TFESI, consider SIJ injection
== END 2025-01-28 07:53 | disposition home or self-care (01) ==
LOC: PM 07:52
PROVIDERS: PCP Family Medicine; Visit Provider Nurse Practitioner
DX: M25.562 Pain in left knee (principal); M54.16 Radiculopathy, lumbar region; M46.1 Sacroiliitis, not elsewhere classified; M25.571 Pain in right ankle and joints of right foot
CPT/HCPCS: G0463

== ENCOUNTER 2025-02-09 07:55 | Day surgery (SDC) | payer MEDICARE, SELFPAY ==
--- OUTSIDE RECORDS SUMMARY | 2023-10-18 09:45 | XMS_ITS ---
Author Organization The [facility] [place] Address [address] [place] [address] Care Team Providers Care Program Management Intern Name Role Phone Soila Joseph Primary Care Provider Philippe Oropeza [phone] REASON FOR VISIT 2m f/u Encounters Encounter Location Date Provider Diagnosis [facility] [place] [address] [place] [address] [address] [place] [address] 10/18/2023 Philippe Daniels Plan Of Treatment No Information Progress Notes * Lissy MACIASDOB:1960 (64 yo F)Acc No.[id number]:10/18/2023 UNLOCKED PROGRESS NOTE TeleMed via Doxy Patient: Sushila FIGUEREDOLissy RAMON Provider: Erin Kemp MD :1960 A ge:62 Y S ex:Female Date:10/18/2023 Address:[address] [place], [place] [address] Pcp:Soila Joseph Subjective: * Chief Complaints: * 1 . 2m f/u. * Medical History: Objective: * Vitals: Assessment: Plan: * Treatment: * * Electronic signature of Charbel Daniels MD, [id number] on 02/09/2025 at 08:00 AM EDT Sign off status: Pending Visit Status: C ANC (Cancelled) * Provider: Erin Kemp MD Date: 0 10/18/2023 Generated for Missy chow/Jarod/Sravan on: 0 02/09/2025 08:00 AM EDT
--- OUTSIDE RECORDS SUMMARY | 2024-02-20 05:19 | XMS_ITS ---
Author Organization [facility] [place] Address [address] [place] [address] Care Team Providers Care Property Insurance Agent Name Role Phone Soila Joseph Primary Care Provider Unavailabl Philippe Fernández Unavailable [phone] REASON FOR VISIT Refill/and [facility] # Medications Medication SIG (Take, Route, Fr equency, Duration) Notes Start Date End Date Status Eszopiclone 3 MG 1 tablet immediately before bedtime Orally Once a day for 90 days 08/17/2023 Ac tive Encounters Encounter Location Date Provider Diagnosis [facility] [place] [address] [facility] [address] [place] [address] 02/20/2024 Philippe Daniels Insomnia, unspecifie d G47.00 Assessments Encounter Date Diagnosis (ICD Code) Assessment Notes Treatment Notes Treatment Clinical Notes Section Notes 02/20/2024 Insomnia, unspecified (ICD-10 - G47.00) Plan Of Treatment Medication Medication Name Sig Start Date Stop Date Notes Eszopiclone 3 MG 1 tablet immediately before bedtime Orally Once a day for 90 days 08/17/2023 Progress Notes * Lissy MACIASDOB:1960 (63 yo F)Acc No.[id number]:02/20/2024 Patient: Sushila Lissy FRYE :1960 A ge:63 Y S ex:Female Address:[address] [place] [address] , [place], [address] * Refills Refill Eszopiclone Tablet, 3 MG, Orally, 90 Tablet, 1 tablet immediately before bedtime, Once a day, 90 days, Refills=3 * true * Date: Generated for Missy chow/Jarod/Sravan on: 0 02/09/2025 08:00 AM EDT
--- OUTSIDE RECORDS SUMMARY | 2024-03-19 04:45 | XMS_ITS ---
Author Organization [facility] vices Address [address] [place] [phone] Care Team Providers Care Store Planner Name Role Phone Coral Dawn Unavailable [phone] REASON FOR VISIT Rest #4-DO Social History Sex Assigned At : Social History Observation Description Sex Assigned At Female Encounters Encounter Location Date Provider Diagnosis Dental Main [address] [place], [place] [phone] 03/19/2024 Coral Dawn Plan Of Treatment No Information Progress Notes * Kia MACIASDOB:1960 (64 yo F)Acc No.[id number]:03/19/2024 Patient: Kia RODRIGUEZ Provider: Fay Dawn DDS :1960 A ge:63 Y S ex:Female Date:03/19/2024 Address:[address] [place], [place] [id number] Subjective: * Chief Complaints: * 1 . Rest #4-DO. * Medical History: Objective: * Vitals: Assessment: Plan: * Treatment: * Billing Information: * Visit Code: * Procedure Codes: * Electronic signature of Angela Dawn DDS on 02/09/2025 at 07:59 AM EDT Sign off status: Pending * Provider: Fay Dawn DDS Date: 03/19/2024 Generated for Printi ng/Faxing/eTransmitting on: 02/09/2025 07:59 AM EDT
--- OUTSIDE RECORDS SUMMARY | 2024-03-28 04:45 | XMS_ITS ---
Author Organization [facility] vices Address [address] [place] [phone] Care Team Providers Care Bottom Precipitator Operator Name Role Phone Coral Dawn Unavailable [phone] REASON FOR VISIT Prophy (A) (63) Social History Sex Assigned At : Social History Observation Description Sex Assigned At Female Encounters Encounter Location Date Provider Diagnosis Dental Main [address] [place], [place] [phone] 03/28/2024 Coral Dwan Plan Of Treatment No Information Progress Notes * Kia MACIASDOB:1960 (64 yo F)Acc No.[id number]:03/28/2024 Patient: Kia RODRIGUEZ Provider: Fay Dawn DDS :1960 A ge:63 Y S ex:Female Date:03/28/2024 Address:[address] [place], [place] [phone] Subjective: * Chief Complaints: * 1 . Prophy (A) (63). * Medical History: Objective: * Vitals: Assessment: Plan: * Treatment: * Billing Information: * Visit Code: * Procedure Codes: * Electronic signature of Angela Dawn DDS on 02/09/2025 at 07:59 AM EDT Sign off status: Pending * Provider: Fay Dawn DDS Date: 03/28/2024 Generated for Missy chow/Jarod/eTransmitting on: 02/09/2025 07:59 AM EDT
--- OUTSIDE RECORDS SUMMARY | 2024-03-31 06:00 | XMS_ITS ---
Author Organization [facility] vices Address [address] [place] [phone] Care Team Providers Care Manufacturing Sr Engineer Name Role Phone Coral Dawn Unavailable [phone] REASON FOR VISIT Rest #18-MO Social History Sex Assigned At : Social History Observation Description Sex Assigned At Female Encounters Encounter Location Date Provider Diagnosis Dental Main [address] [place], [place] [phone] 03/31/2024 Coral Dawn Plan Of Treatment No Information Progress Notes * Kia MACIASDOB:1960 (64 yo F)Acc No.[id number]:03/31/2024 Patient: Kia RODRIGUEZ Provider: Fay Dawn DDS :1960 A ge:63 Y S ex:Female Date:03/31/2024 Address:[address] [place], [place] [phone] Subjective: * Chief Complaints: * 1 . Rest #18-MO. * Medical History: Objective: * Vitals: Assessment: Plan: * Treatment: * Billing Information: * Visit Code: * Procedure Codes: * Electronic signature of Angela Dawn DDS on 02/09/2025 at 08:00 AM EDT Sign off status: Pending * Provider: Fay Dawn DDS Date: 03/31/2024 Generated for Printi ng/Faxing/eTransmitting on: 02/09/2025 08:00 AM EDT
--- OUTSIDE RECORDS SUMMARY | 2024-07-23 07:30 | XMS_ITS ---
Author Organization The [facility] in [place] Address [address] [place] [address] Care Team Providers Care Edge Dyer Name Role Phone Soila Joseph Primary Care Provider Philippe Oropeza [phone] REASON FOR VISIT 1yr f/u Encounters Encounter Location Date Provider Diagnosis [facility] [address] [facility] [address] [place] [address] 07/23/2024 Philippe Daniels Plan Of Treatment No Information Progress Notes * Lissy MACIASDOB:1960 (64 yo F)Acc No.[id number]:07/23/2024 UNLOCKED PROGRESS NOTE Follow Up Patient: Sushila FIGUEREDOYENNY Lissy Sandip Provider: Erin Kemp MD :1960 A ge:63 Y S ex:Female Date:07/23/2024 Address:[address] [place], [place] [address] Pcp:Soila Joseph Subjective: * Chief Complaints: * 1 . 1yr f/u. * Medical History: Objective: * Vitals: Assessment: Plan: * Treatment: * * Electronic signature of Charbel Daniels MD, [id number] on 02/09/2025 at 08:00 AM EDT Sign off status: Pending Visit Status: C ANC (Cancelled) * Provider: Erin Kemp MD Date: 09/22/2023 Generated for Missy chow/Jarod/Kirillitting on: 0 02/09/2025 08:00 AM EDT
--- OUTSIDE RECORDS SUMMARY | 2024-09-09 07:20 | XMS_ITS ---
Author Organization [facility] Address [address] [place] [address] Care Team Providers Care Air Sampling And Monitoring Name Role Phone Dr. Bar Small Primary Care Provider REASON FOR VISIT FILLING Encounters Encounter Location Date Provider Diagnosis [facility] [address] [place] [address] 09/09/2024 Bar Small Plan Of Treatment Next Appt Details Provider Name:Saba Steele , 09/07/2025 02:15:00 PM, [address] [place], [address], Progress Notes * CURTIS MACIASB:[birth year] 59 (64 yo F)Acc No.[id number]:09/09/2024 Patient: Sushila UDAYIWONAA Provider: Sandip Small DDS :1960 A ge:63 Y S ex:Female Date:09/09/2024 Address:[address] [place], [place] [id number] Subjective: * Chief Complaints: * 1 . FILLING. * Medical History: Objective: * Vitals: Assessment: Plan: * Treatment: * Images: * Electronic signature of Dr. Bar Small , DMD on 02/09/2025 at 07:59 AM EDT Sign off status: Pending * Provider: Sandip Small DDS Date: Generated for Missy chow/Jarod/Sravan on: 0 02/09/2025 07:59 AM EDT
--- OUTSIDE RECORDS SUMMARY | 2024-10-14 09:30 | XMS_ITS ---
Author Organization [facility] Address [address] [place] [address] Care Team Providers Care Service Station Cashier Name Role Phone Dr. Bar Small Primary Care Provider Ligia Quiñonez Unavailable [phone] REASON FOR VISIT FILLING Encounters Encounter Location Date Provider Diagnosis [facility] [address] [place] [address] 10/14/2024 Ligia Quiñonez Plan Of Treatment Next Appt Details Provider Name:Saba Steele , 09/07/2025 02:15:00 PM, [address], [place], [address], Progress Notes * CURTIS MACIASB:[birth year] 59 (64 yo F)Acc No.[id number]:10/14/2024 Patient: Sushila UDAYMADHUEMILY Provider: Sandip Quiñonez :1960 A ge:63 Y S ex:Female Date:10/14/2024 Address:[address] [place] [address] Pcp:Dr. Bar Small Subjective: * Chief Complaints: * 1 . FILLING. * Medical History: Objective: * Vitals: Assessment: Plan: * Treatment: * Images: * Electronic signature of Berto Quiñonez DMD on 02/09/2025 at 08:00 AM EDT Sign off status: Pending * Provider: Sandip Quiñonez Date: 0 10/14/2024 Generated for Missy chow/Jarod/Sravan on: 0 02/09/2025 08:00 AM EDT
--- OUTSIDE RECORDS SUMMARY | 2025-02-03 09:00 | XMS_ITS ---
Author Organization [facility] Address [address] [place] [address] Care Team Providers Care Licensed Dispensing Optician Name Role Phone Dr. Bar Small Primary Care Provider [phone] Saba Girard Unavailable [phone] REASON FOR VISIT PROPHY bw ex ( needis to come 1hr before for meds) Encounters Encounter Location Date Provider Diagnosis [facility] [address] [place] [address] 02/03/2025 Saba Steele Plan Of Treatment Next Appt Details Provider Name:Saba Steele , 09/07/2025 02:15:00 PM, [address] [place] [place], [address], Progress Notes * CURTIS MACIASB:[birth year] (64 yo F)Acc No.[id number]:02/03/2025 Patient: Sushila UDAYIWONAA Provider: Bryce Steele :1960 A ge:64 Y S ex:Female Date:02/03/2025 Address:[address] [place] [phone] Pcp:Dr. Bar Small Subjective: * Chief Complaints: * 1 . PROPHY bw ex ( needis to come 1hr before for meds). * Medical History: Objective: * Vitals: Assessment: Plan: * Treatment: * Images: * Electronic signature of Joey Steele on 02/09/2025 at 07:59 AM EDT Sign off status: Pending * Provider: Bryce Steele Date: 0 02/03/2025 Generated for Missy chow/Jarod/rSavan on: 0 02/09/2025 07:59 AM EDT
--- OUTSIDE RECORDS SUMMARY | 2025-02-09 07:59 | XMS_ITS | Clinical Summary ---
Author Organization [facility] tem Address [facility] [place] [place]-[id number] [address] [place] [address] Care Team Providers Care Machine Operations Supervisor Name Role Phone Soila Joseph MD Primary Care Provider [phone] Allergies Active Allergy Reactions Criticality Noted Date Comments Morphine Hives 11/18/2020 Milnacipran 02/09/2017 Tizanidine 02/09/2017 Medications doxepin (SINEquan) 100 mg capsule Take 100 mg by mouth nightly. Active oxybutynin (DITROPAN) 5 mg tablet Take 5 mg by mouth daily. MAY TAKE 2 TABS IF NEEDED Active multivitamin-C w-[id number]-wauuyvw s tablet Take 1 tablet by mouth [...] (07/12/2017): Added automatically from request for surgery [id number] Disorder of sacrum 03/27/2017 Neck pain 02/12/2017 [...] on file Insurance [employer] MEDICARE Care Teams Machine Operations Supervisor Relationship Specialty Start Date End Date Soila Joseph MD [address] [place], [place] [id number] PCP - General Family Medicine 11/18/20
--- OUTSIDE RECORDS SUMMARY | 2025-02-09 07:59 | XMS_ITS | Referral Summary ---
Author Organization [facility] Address [address] [place] [address] Care Team Providers Care Developer Prover Mechanical Name Role Phone Unavailable Primary Care Provider Unavailabl e Social History Tobacco Use Types Packs/Day Years Used Date Smoking Tobacco: Never Assessed [place] Safety & Environment Answer Date Rec orded [...] Orientation Not on file Plan of Treatment Upcoming Encounters Date Type Department Care Team (Late st Contact Info) Description 03/31/2025 10:30 AM EDT Consult [facility] [address] [place] [address] Jimbo Leavitt MD [address] [place] [address] [facility] [address]
--- OUTSIDE RECORDS SUMMARY | 2025-02-09 07:59 | XMS_ITS | Clinical Summary ---
Author Organization [facility] Address [address] [place] [address] Care Team Providers Care Paralegal Secretary Name Role Phone Unavailable Primary Care Provider [...]
--- OUTSIDE RECORDS SUMMARY | 2025-02-09 07:59 | XMS_ITS | Patient Health Record ---
Author Organization [facility] [place] Address [address] [place] [address] Care Team Providers Care Event Management Consultant Name Role Phone Soila Joseph Primary Care Provider Philippe Oropeza Unavailable [phone] Allergies Allergen (clinical drug ingredient) Drug/Non Drug [...] capsule Orally Once a day Active Creon [id number] UNIT as directed Orally Active Ramelteon 8 [...] Status W/U Status Risk Notes Problem Insomnia (366594351) Insomnia, unspecified (G47.00) Active confirmed Problem [id number] Excessive daytime sleepiness (G47.19) Active confirmed Problem [id number] Obstructive sleep apnea syndrome, mild (G47.33) Active confirmed Encounters Encounter Location Date Provider Diagnosis [facility] Pulmonary Critical Care [facility] [address] [place] [address] 02/20/2024 Philippe Daniels Insomnia, unspecifie d G47.00 Assessments Encounter Date Diagnosis (ICD Code) Assessment Notes Treatment Notes Treatment Clinical Notes Section Notes 02/20/2024 Insomnia, unspecified (ICD-10 - G47.00) Plan Of Treatment No Information Insurance Providers Payer Name Payer Address Payer Phone Subscriber Number Group Number Insured Name Patient Relationship to Insured Coverage Start Date Coverage End Date [employer]NA MEDICARE [address] [place], [place] [id number] Lissy Chu Self - patient is the insured Medical (General) History Surgical History Surgery Date(Month/Year) History of cholecystectomy History of hemorrhoidectomy History of hysterectomy Foot Surgery, Left 10/2019 Foot Surgery, Right 03/2020 Surgical / procedural histor y ovarian cyst removed, fundiplication, rectocele
--- OUTSIDE RECORDS SUMMARY | 2025-02-09 07:59 | XMS_ITS | Clinical Summary ---
Author Organization [facility] Address [address] [place] [address] Care Team Providers Care Slag Expander Name Role Phone Unavailable Primary Care Provider Unavailabl e Social History Tobacco Use Types Packs/Day Years Used Date Smoking Tobacco: Never Assessed [place] Safety & Environment Answer Date Rec orded [...] Info) Description 03/31/2025 10:30 AM EDT Consult [facility] [address] [place] [address] Jimbo Leavitt MD [address] [place] [address] Health Maintenance Due Date Last Done Comments [...] Vaccines (1 of 2) 12/15/2009 COVID-19 Vaccine (1 - 2023-2 5 season) 2024 Fall Risk [...]
--- OUTSIDE RECORDS SUMMARY | 2025-02-09 07:59 | XMS_ITS | Encounter Summary ---
Author Organization [facility] Address [address] [place] [address] Care Team Providers Care Oven Roaster Name Role Phone Unavailable Primary Care Provider Unavailabl e Reason for Visit * Reason Onset Date Comments REFERRAL CONSULT 09/18/2024 Encounter Details Date Type Department Care Team (Late st Contact Info) Description 09/18/2024 Telephone [facility] Surgery Clinic [address] [place] [address] Vandana Ward MA REFERRAL CONSULT Social History Tobacco Use Types Packs/Day Years Used Date Smoking Tobacco: Never Assessed [place] Safety & Environment Answer Date Rec orded [...] on file documented as of this encounter Miscellaneous Notes * Telephone Encounter - Vandana Ward MA - 02/03/2025 10:56 AM EDT [employer] reps notified. * Telephone Encounter - Laura Carmona MA - 01/29/2025 11:47 AM EDT Patient called back, appt scheduled for 03/31/2025 at 1030. * Telephone Encounter - Vandana Ward MA - 01/29/2025 11:40 AM EDT Received referral again for same dx. LVM for pt to call clinic to schedule consult with Dr. Leavitt todiscuss SCS. Please let specification writer know when scheduled. [facility] will need notified. Imaging obtained. * Telephone Encounter - Vandana Ward MA - 09/18/2024 3:32 PM EST LVM for pt to call clinic to schedule consult with Dr. Leavitt for Surgical intervention vs SCS. Please let specification writer or Nayana Crenshaw MA know when scheduled so we may notify [employer] reps. documented in this encounter Plan of Treatment Upcoming Encounters Date Type Department Care Team (Late st Contact Info) Description 03/31/2025 10:30 AM EDT Consult [facility] Surgery Clinic [address] [place] [address] Jimbo Leavitt MD [address] [place] [phone] documented as of this encounter Visit Diagnoses Not on filedocumented in this encounter
--- OUTSIDE RECORDS SUMMARY | 2025-02-09 07:59 | XMS_ITS | Clinical Summary ---
Author Organization [email or web address] Address [address] [place] [address] Care Team Providers Care Cyber Security Analyst Name Role Phone Soila Joseph MD Primary Care Provider [phone] Allergies Active Allergy Reactions Criticality Noted Date Comments Milnacipran Headache 11/30/2022 migraines Vancomycin Hives Low 01/29/2023 Hives, itching Tizanidine Hallucination 11/30/2022 Medications levothyroxine 112 MCG tablet Take 1 tablet by mouth daily. AM 10/02/19 23 Active metFORMIN 1000 MG tablet 2 times daily. 08/29/20 Active Cholecalciferol 250 MCG (51108 UT) capsule capsule Take by mouth daily. [...] Apply to eye as needed. Active Pancrelipase, Pbk-Tplc-Rnyu, (CREON PO) Take 36,000 Units by mouth. [...] by Nasal route once for 1 dose. [place] into the nose as directed. Call 911. [...] Type Department Care Team Description 12/04/2024 [facility]phone [facility] [address] [phone] Iza Ferrari Other (Hx of Revision partial [...] this topic Medical Devices Implanted Type Area Nicker Device Identifier Shelf Expiration Date Model / Serial / Lot Patella - Knee - [id number] Implanted:Qty: 1 on 01/29/2023 by Sagar Gordon MD at [facility] Left: Knee 12/09/2027 / / [id number] Revision Pressfit Stem 12mmx 60 Implanted:Qty: 1 on 01/29/2023 by Sagar Gordon MD at [facility] Left: Knee 07/10/2032 1513-12-060 / / [id number] Revision Tibial Base Sz 2 Implanted:Qty: 1 on 01/29/2023 by Sagar Gordon MD at [facility] Left: Knee 09/09/2032 1506-40-002 / / [id number] Rev Offset Stem 2mm Implanted:Qty: 1 on 01/29/2023 by Sagar Gordon MD at [facility] Left: Knee DEPUY 01/08/2028 1513-02-000 / / [id number] Rev Distal Femoral Augment Sz 5 4mm Implanted:Qty: 1 on 01/29/2023 by Sagar Gordon MD at [facility] Left: Knee DEPUY 03/09/2032 1547-05-001 / / [id number] Rev Crs Femoral Sz 5 Left Implanted:Qty: 1 on 01/29/2023 by Sagar Gordon MD at [facility] Left: Knee DEPUY 03/09/2032 1504-40-105 / / [id number] Palacos R 1 X 40 Us - [id number] Implanted:Qty: 2 on 01/29/2023 by Sagar Gordon MD at [facility] Left: Knee 07/10/2027 / / [id number] Pal[employer]os [employer] High-Viscosity With Gentamicin - [id number] Implanted:Qty: 1 on 01/29/2023 by Sagar Gordon MD at [facility] Left: Knee 11/07/2025 / / [id number] Insert - Knee - [id number] Implanted:Qty: 1 on 01/29/2023 by Sagar Gordon MD at [facility] Left: Knee DEPUY 06/09/2027 / / [id number] Procedures Procedure Name Priority Date/Time Associated Diagnosis Comments HEMOGLOBIN A1C Routine 01/04/2023 12:50 PM EDT Preop testing Abnormal finding of blood chemistry, unspecified from Last 3 Months or Most Recently Relevant to Health Maintenance Results * (ABNORMAL) HEMOGLOBIN A1C (01/04/2023 12:50 PM EDT) HEMOGLOBIN A1C 6.5(H) <6 % [address] Comment: NORMAL <5.7% PREDIABETES 5.7-6.4% DIABETES 6.5% OR HIGHER Estimated Average Glucose 140 mg/dL [address] Blood 01/04/2023 12:5 0 PM EDT 01/04/2023 1:03 PM EDT Sagar Gordon MD HEMATOLOGY ORDERABLES Final Resu lt [address] [address] from Last 3 Months or Most Recently Relevant to Health Maintenance Insurance MEDICARE AETNA [address] [place] [address] Advance Directives For more information, please contact: [phone] (7:30 AM - 6PM [facility], Sunday-Sunday) * Full Code (Latest Code Status on File) Date Activated Date Inactivated Comments 01/29/2023 4:58 PM Care Teams Cyber Security Analyst Relationship Specialty Start Date End Date Soila Joseph MD PCP - General Family Medicine 10/20/22
--- OUTSIDE RECORDS SUMMARY | 2025-02-09 08:00 | XMS_ITS | Clinical Summary ---
Author Organization [facility] Address [address] [place], [place] [address] Care Team Providers Care Truck Packer Name Role Phone Andrew Berg Primary Care Provider [phone] Allergies Active Allergy Reactions Criticality Noted Date [...] (1 - 1-dose 75+ series) 12/15/[address] [place] [place] [address] MEDICARE ADVANTAGE PPO Care Teams Truck Packer Relationship Specialty Start Date End Date Andrew Berg [facility] [address] [place] [address] PCP - General 12/20/00
--- OUTSIDE RECORDS SUMMARY | 2025-02-09 08:01 | XMS_ITS | Encounter Summary ---
Author Organization [facility] tem Address [facility] [place]-[id number] [address] [place] [address] Care Team Providers Care Freedom Of Information Officer Name Role Phone Soila Joseph MD Primary Care Provider [phone] Reason for Visit * Reason Comments Med Refill Encounter Details Date Type Department Care Team (Late st Contact Info) Description 02/21/2018 Refill [facility] [address] [place] [phone] Jerrod Juan PA [address] [facility] [place] [address] Social History Tobacco Use Types Packs/Day Years [...] on file documented as of this encounter Visit Diagnoses Not on filedocumented in this encounter Care Teams Freedom Of Information Officer Relationship Specialty Start Date End Date Soila Joseph MD [address] [place] [address] PCP - General Family Medicine 11/18/20 documented as of this encounter
--- OUTSIDE RECORDS SUMMARY | 2025-02-09 08:01 | XMS_ITS | Patient Health Record ---
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 Problem Hypothyroidism (60122524) Hypothyroidism (E03.9) Active confirmed Problem Lower urinary tract infectious disease (disorder) (3934686) UTI (lower urinary tract infection) (N39.0) Active confirmed Problem Depression screening (971500786) Screening for depression (Z13.31) Active confirmed Description:De pression screen Problem Gynecological examination normal (619693820174236 ) Well female exam with routine gynecological exam (Z01.419) Active confirmed Comment:pt does breast exams, taking calcium and vitamin D last pap of vaginal cuff done 2011 declines std testing annual mammograms pt to followup with pcp for annual exam and bloodwork,Desc ription:Well woman exam with routine gynecological exam Problem Gynecological examination normal (735731027585717 ) Well woman exam with routine gynecological [...] protection to prevent STD's., Problem Pityriasis versicolor (37122328) Chromophytosis (B36.0) Active confirmed Comment:untann ed lesions seen on chest, neck and back,Descripti on:Tinea versicolor Problem History of hysterectomy (124964366) History of hysterectomy (Z90.710) Active confirmed Problem Diarrhea (85963751) Diarrhea (R19.7) Active confirmed Comment: pt has been on doxephin started by colonoscopy surgeon Dr. Dotson, pt is in process of transitioning pcp, will give enough to last until appointment, no more refills, Problem Screening for malignant neoplasm of cervix (566356757) Cervical cancer screening (Z12.4) Active confirmed Problem Mixed incontinence (843539486) Mixed incontinence urge and stress (788.33) (788.33) [...] of uncertain significance, probably benign (morphologic abnormality) (822403520) ASCUS favor benign (796.9) Active confirmed Comment:hpv neg, repeat in 1 year, Problem Vaginal dryness (55500402) Vaginal dryness, menopausal (N95.1) Active confirmed Comment:pt to use replens, coconut oil, Problem Screening for malignant neoplasm of breast (476428591) Breast cancer screening by mammogram (Z12.31) Active confirmed Problem Human papilloma virus screening (383761778) Screening for HPV (human papillomavirus) (Z11.51) Active confirmed Problem Lichen planus (3404018) Lichen planus (L43.9) Active confirmed Comment:suspec penelope, rash all over body, areas that arent tanned are worse, Problem Localized superficial swelling of skin (450091176) Axillary lump (782.2) (782.2) Active confirmed Comment:pt feels lump in right axilla. May be ingrown hair, similar lump palpated in other armpit, may be muscular. Pt had normal mammogram this year. Will obtain ultrasound of area., Problem Bladder cystocele (650394619) Bladder cystocele (618.01) Active confirmed Comment:2nd degree,Story:h istory of bladder suspension with hysterectomy,D escription:Cys tocele Encounters Encounter Location Date Provider Diagnosis Main [address] [place], [place] [id number] 02/11/2024 Marsha Ramos Plan Of Treatment No Information Insurance Providers Payer Name Payer Address Payer Phone Subscriber Number Group Number Insured Name Patient Relationship to Insured Coverage Start Date Coverage End Date A[employer] Medicare [address] [place] [address] [id number] Kimberley, Kia Self - patient is the insured 2 DAetna [facility] [address] [place] [address] [id number] Kimberley Kia Self - patient is the [...]
--- OUTSIDE RECORDS SUMMARY | 2025-02-09 08:01 | XMS_ITS | Encounter Summary ---
Author [facility] Address [id number] [address] [place] [address] Care Team Providers Care Telecommunications Network Planner Name Role Phone Soila Joseph MD Primary Care Provider [phone] Encounter Details Date Type Department Care Team (Late st Contact Info) Description 10/28/2020 Orders Only [facility] [address] [place] [phone] External, Scanning Provider Social History Tobacco Use [...] on filedocumented in this encounter Care Teams Telecommunications Network Planner Relationship Specialty Start Date End Date Soila Joseph MD [address] [place] [address] PCP - General Family Medicine 11/18/20 documented as of this encounter
--- OUTSIDE RECORDS SUMMARY | 2025-02-09 08:01 | XMS_ITS | Encounter Summary ---
Author Organization [facility] Address [id number] [address] [place] [address] Care Team Providers Care Psychiatric Attendant Name Role Phone Soila Joseph MD Primary Care Provider [phone] Reason for Visit * Reason Comments Med Refill Encounter Details Date Type Department Care Team (Late st Contact Info) Description 02/21/2018 Refill [facility] [address] [place] [phone] Jerrod Juan PA [address] [facility], [address]nd [place] [address] Social History Tobacco Use Types Packs/Day Years [...] encounter Miscellaneous Notes * Telephone Encounter - Mone Cole RN - 02/22/2018 10:39 AM EDT We do not accept medication refill requests from pharmacies. Patient needs to request refill. documented in this encounter Plan of Treatment Not on file documented as of this encounter Visit Diagnoses Not on filedocumented in this encounter Care Teams Psychiatric Attendant Relationship Specialty Start Date End Date Soila Joseph MD [address] [place] [address] PCP - General Family Medicine 11/18/20 documented as of this encounter
--- OUTSIDE RECORDS SUMMARY | 2025-02-09 08:01 | XMS_ITS | Encounter Summary ---
Author Organization [facility] s tem Address [facility][id number] [address] [place] [address] Care Team Providers Care Edger Runner Name Role Phone Soila Joseph MD Primary Care Provider [phone] Encounter Details Date Type Department Care Team (Late st Contact Info) Description 10/28/2020 Orders Only [facility] [address] [place] [phone] External, Scanning Provider Social History Tobacco Use [...] Procedure Name Priority Date/Time Associated Diagnosis Comments MULTIPLE LABS Routine 10/19/2020 LIPID PROFILE Routine 10/19/2020 documented in this encounter Results * Lipid profile (10/19/2020) External Cholesterol 185 MANUALLY TRANSCRIBED RESULTS External Cholesterol:Hdl 4.5 MANUALLY TRANSCRIBED RESULTS External Hdl Cholesterol 41 MANUALLY TRANSCRIBED RESULTS External Ldl (Calc) 102 MANUALLY TRANSCRIBED RESULTS External Triglycerides 209 MANUALLY TRANSCRIBED RESULTS us Scanning Provider External LAB BLOOD ORDERABLES Edited Result - Final MANUALLY TRANSCRIBED RESULTS * Multiple labs (10/19/2020) us Scanning Provider External [place] IMAGING Final Result Performing Organization Address City/[facility] Co de Phone Number MANUALLY TRANSCRIBED RESULTS documented in this encounter Visit Diagnoses Not on filedocumented in this encounter Care Teams Edger Runner Relationship Specialty Start Date End Date Soila Joseph MD [address] [place] [address] PCP - General Family Medicine 11/18/20 documented as of this encounter
--- OUTSIDE RECORDS SUMMARY | 2025-02-09 08:01 | XMS_ITS | Encounter Summary ---
Author Organization [facility] tem Address [id number] [address] [place] [address] Care Team Providers Care Staying Machine Operator Name Role Phone Soila Joseph MD Primary Care Provider [phone] Reason for Visit * Reason Comments Med Refill Encounter Details Date Type Department Care Team (Late st Contact Info) Description 09/07/2017 Refill [facility] [address] [place] [phone] Jerrod Juan PA [address] [facility], [address]nd [place] [address] Social History Tobacco Use Types Packs/Day Years [...] on filedocumented in this encounter Care Teams Staying Machine Operator Relationship Specialty Start Date End Date Soila Joseph MD [address] [place] [address] PCP - General Family Medicine 11/18/20 documented as of this encounter
--- OUTSIDE RECORDS SUMMARY | 2025-02-09 08:01 | XMS_ITS | Encounter Summary ---
Author Organization [facility] [facility] s tem Address [id number] [address] [place] [address] Care Team Providers Care Shade Matcher Name Role Phone Soila Joseph MD Primary Care Provider [phone] Encounter Details Date Type Department Care Team (Late st Contact Info) Description 12/09/2020 Orders Only [facility] [address] [place] [phone] External, Scanning Provider Social History Tobacco Use [...] Procedure Name Priority Date/Time Associated Diagnosis Comments ECG 12-LEAD Routine 12/06/2020 documented in this encounter Results * ECG 12 lead (12/06/2020) us Scanning Provider External ECG ORDERABLES Final Result MANUALLY TRANSCRIBED RESULTS documented in this encounter Visit Diagnoses Not on filedocumented in this encounter Care Teams Shade Matcher Relationship Specialty Start Date End Date Soila Joseph MD [address] [place] [address] PCP - General Family Medicine 11/18/20 documented as of this encounter
--- OUTSIDE RECORDS SUMMARY | 2025-02-09 08:01 | XMS_ITS | Encounter Summary ---
Author Organization [employer] tem Address [id number] [address] [place] [address] Care Team Providers Care Pipe Assembly Worker Name Role Phone Soila Joseph MD Primary Care Provider [phone] Encounter Details Date Type Department Care Team (Late st Contact Info) Description 11/22/2020 Orders Only [facility] [address] [place] [phone] External, Scanning Provider Social History Tobacco Use [...] on filedocumented in this encounter Care Teams Pipe Assembly Worker Relationship Specialty Start Date End Date Soila Joseph MD [address] [place] [address] PCP - General Family Medicine 11/18/20 documented as of this encounter
--- OUTSIDE RECORDS SUMMARY | 2025-02-09 08:01 | XMS_ITS | Encounter Summary ---
Author Organization [facility] tem Address [facility] [place][id number] [address] [place] [address] Care Team Providers Care Parent Trainer Name Role Phone Soila Joseph MD Primary Care Provider [phone] Encounter Details Date Type Department Care Team (Late st Contact Info) Description 11/02/2020 Orders Only [facility] [address] [place] [phone] External, Scanning Provider Social History Tobacco Use [...] on filedocumented in this encounter Care Teams Parent Trainer Relationship Specialty Start Date End Date Soila Joseph MD [address] [place] [address] PCP - General Family Medicine 11/18/20 documented as of this encounter
--- OUTSIDE RECORDS SUMMARY | 2025-02-09 08:01 | XMS_ITS | Encounter Summary ---
Author Organization [employer] [facility] tem Address [facility][id number] [address] [place] [address] Care Team Providers Care Manager Credit Name Role Phone Soila Joseph MD Primary Care Provider [phone] Encounter Details Date Type Department Care Team (Late st Contact Info) Description 12/09/2020 Orders Only [facility] [address] [place] [phone] Vicki Harrell MA BOYD (dyspnea on exertion) [...] documented in this encounter Care Teams Manager Credit Relationship Specialty Start Date End Date Soila Joseph MD [address] [place] [address] PCP - General Family Medicine 11/18/20 documented as of this encounter
[2025-02-09 08:16] LABS: Glucometer 160 mg/dL (74-106)
[2025-02-09 08:19] VITALS: BP 138/70; PULSE 90; TEMP 36.2; O2SAT 95
[2025-02-09 09:21] VITALS: BP 141/59; PULSE 87; O2SAT 97
[2025-02-09 09:22] VITALS: BP 119/73; PULSE 87; O2SAT 97
[2025-02-09] MEDS: 0.9 % SODIUM CHLORIDE 10 ML SYRINGE - SALINE FLUSH INJ (09:23)
[2025-02-09] MEDS: BUPIVACAINE HCL 0.25% PF 25 MG/10 ML VIAL INJ (09:24)
[2025-02-09] MEDS: METHYLPREDNISOLONE ACETATE 80 MG/ML VIAL INJ (09:24)
[2025-02-09] MEDS: IOHEXOL 240 MG/ML - 10 ML VIAL 24 MG INJ (09:25)
[2025-02-09] MEDS: LIDOCAINE HCL 2% 400 MG/20 ML MDV 3 ML INJ (09:25)
--- NOTE | 2025-02-09 09:25 | P.ON_ITS ---
Date of procedure: 02/09/25 Pre-op diagnosis: Pain due to lumbar stenosis with neurogenic claudication Post-op diagnosis: same as pre-op Procedure: Procedure: Right L4-5, L5-S1 transforaminal epidural steroid injection Medications: Bupivacaine 0.25% 2cc, lidocaine 2% 1cc, depomedrol 80mg The patient was seen and examined in the preoperative holding area.? Informed consent was obtained and placed on the chart.? Patient was brought to the medical procedure unit and placed in the prone position where a timeout was completed verifying the correct patient, procedure site, position, and planned special equipment using sterile aseptic technique.? Under direct fluoroscopic visualization a 25-gauge Quincke tipped spinal needle was advanced to the designated neural foramen where contrast dye was injected to show adequate spread.? The needle was inserted at level right L4-5. There was no evidence of vascular or adverse uptake.? Epidural spread was appreciated.? The above- mentioned injectate was then placed in a 1.5 mL aliquot preceded by negative aspiration.? The needle was removed. The needle was inserted and the procedure repeated at level right L5-S1.? The surgery site was covered.? Patient was taken to the postprocedural recovery area and monitored for an appropriate length of time before found suitable for discharge in the accompaniment of a responsible adult. Anesthesia: Local Surgeon: Chandra Edouard Pathology: none sent Condition: stable Disposition: no change
== END 2025-02-09 09:30 | disposition home or self-care (01) ==
LOC: SURGOUT 07:57
PROVIDERS: PCP Family Medicine; Visit Provider Anesthesiology
DX: M54.50 Low back pain, unspecified (principal); M48.062 Spinal stenosis, lumbar region with neurogenic claudication; E11.8 Type 2 diabetes mellitus with unspecified complications; Z79.84 Long term (current) use of oral hypoglycemic drugs
CPT/HCPCS: 36415; 64483; 64484; 82948; J0665; J1010; Q9966

== ENCOUNTER 2025-02-19 08:59 | Outpatient (OUT) | payer MEDICARE, SELFPAY ==
--- OUTSIDE RECORDS SUMMARY | 2025-02-19 09:02 | XMS_ITS | Clinical Summary ---
Author Organization [facility] tem Address [id number] [address] [place] [address] Care Team Providers Care Sports Complex Attendant Name Role Phone Soila Joseph MD Primary Care Provider [phone] Allergies Active Allergy Reactions Criticality Noted Date Comments Morphine Hives 11/18/2020 Milnacipran 02/09/2017 Tizanidine 02/09/2017 Medications doxepin (SINEquan) 100 mg capsule Take 100 mg by mouth nightly. Active oxybutynin (DITROPAN) 5 mg tablet Take 5 mg by mouth daily. MAY TAKE 2 TABS IF NEEDED Active multivitamin-C v-cwts-gydsljk s tablet Take 1 tablet by mouth [...] (07/12/2017): Added automatically from request for surgery [id number] Disorder of sacrum 03/27/2017 Neck pain 02/12/2017 [...] on file Insurance AETNA MEDICARE Care Teams Sports Complex Attendant Relationship Specialty Start Date End Date Soila Joseph MD [address] [place], [place] [id number] PCP - General Family Medicine 11/18/20
--- OUTSIDE RECORDS SUMMARY | 2025-02-19 09:02 | XMS_ITS | Clinical Summary ---
Author Organization [facility] Address [address] [place] [address] Care Team Providers Care Supervisor Show Operations Name Role Phone Unavailable Primary Care Provider Unavailabl e Social History Tobacco Use Types Packs/Day Years Used Date Smoking Tobacco: Never Assessed GA Safety & Environment Answer Date Rec orded Fear of Current or Ex-Partner Not on file Emotionally Abused Not on file 11/01/2023 Physically Abused Not on file 11/01/2023 Sexually Abused Not on file 11/01/2023 Physically or Sexually Abused Not on file Comments Unknown Sex and Gender Information Value Date Recorded Sex Assigned at Not on file Legal Sex Female 9:39 PM EDT Gender Identity Not on file Sexual Orientation Not on file Plan of Treatment Upcoming Encounters Date Type Department Care Team (Late st Contact Info) Description 03/31/2025 10:30 AM EDT Consult [facility] [address] [facility] [place] [address] Jimbo Leavitt MD [address] [place] [address] Health Maintenance Due Date Last [...] Cancer Screening 12/15/1989 HPV/Cotest 12/15/1989 Mammogram 1999 Pneumococcal Vaccine: 50+ Ye ars (1 of 1 - PCV) 12/15/2009 Zoster Vaccines (1 of 2) 12/15/2009 COVID-19 Vaccine (1 - 2023-2 5 season) 2024 Fall Risk Screening 12/15/2024 Influenza Vaccine (Season Ended) 2025 HIB [...] on patient's age to complete this topic Insurance AETNA MEDICARE ADVANTAGE
--- OUTSIDE RECORDS SUMMARY | 2025-02-19 09:02 | XMS_ITS | Encounter Summary ---
Author Organization [employer] [facility] tem Address [facility] [place]-[id number] [address] [place] [address] Care Team Providers Care Vp Patient Name Role Phone Soila Joseph MD Primary Care Provider [phone] Encounter Details Date Type Department Care Team (Late st Contact Info) Description 10/28/2020 Orders Only [facility] [address] [place] [phone] External, Scanning Provider Social History Tobacco Use [...] Multiple labs (10/19/2020) us Scanning Provider External [place] IMAGING Final Result Performing Organization Address City/[facility] Co de Phone Number MANUALLY TRANSCRIBED RESULTS documented in this encounter Visit Diagnoses Not on filedocumented in this encounter Care Teams Vp Patient Relationship Specialty Start Date End Date Soila Joseph MD [address] [place] [address] PCP - General Family Medicine 11/18/20 documented as of this encounter
--- OUTSIDE RECORDS SUMMARY | 2025-02-19 09:02 | XMS_ITS | Encounter Summary ---
Author Organization [facility] tem Address [facility]-[id number] [address] [place] [address] Care Team Providers Care Food Or Baggage Handling Rampman Name Role Phone Soila Joseph MD Primary Care Provider [phone] Reason for Visit * Reason Comments Med Refill Encounter Details Date Type Department Care Team (Late st Contact Info) Description 02/21/2018 Refill [facility] [address] [place] [phone] Jerrod Juan PA [address] [facility], 2nd [place] [address] Social History Tobacco Use Types Packs/Day Years [...] on filedocumented in this encounter Care Teams Food Or Baggage Handling Rampman Relationship Specialty Start Date End Date Soila Joseph MD [address] [place] [address] PCP - General Family Medicine 11/18/20 documented as of this encounter
--- OUTSIDE RECORDS SUMMARY | 2025-02-19 09:02 | XMS_ITS | Clinical Summary ---
Author Organization [facility] Address [address] [place] [address] Care Team Providers Care Photograph Printer Name Role Phone Unavailable Primary Care Provider [...]
--- OUTSIDE RECORDS SUMMARY | 2025-02-19 09:02 | XMS_ITS | Encounter Summary ---
Author Organization [employer] [facility] tem Address [facility]-[id number] [address] [place] [address] Care Team Providers Care Dyeing Machine Back Tender Name Role Phone Soila Joseph MD Primary Care Provider [phone] Encounter Details Date Type Department Care Team (Late st Contact Info) Description 12/09/2020 Orders Only [facility] [address] [place] [phone] Vicki Harrell MA BOYD (dyspnea on exertion) [...] abnormality documented in this encounter Care Teams Dyeing Machine Back Tender Relationship Specialty Start Date End Date Soila Josehp MD [address] [place] [address] PCP - General Family Medicine 11/18/20 documented as of this encounter
--- OUTSIDE RECORDS SUMMARY | 2025-02-19 09:02 | XMS_ITS | Encounter Summary ---
Author Organization [facility] tem Address [facility][id number] [address] [place] [address] Care Team Providers Care Math Instructor Name Role Phone Soila Joseph MD Primary Care Provider [phone] Reason for Visit * Reason Comments Med Refill Encounter Details Date Type Department Care Team (Late st Contact Info) Description 02/21/2018 Refill [facility] [address] [place] [phone] Jerrod Juan PA [address] [facility], [address]nd [place] [address] Social History Tobacco Use Types Packs/Day Years [...] on filedocumented in this encounter Care Teams Math Instructor Relationship Specialty Start Date End Date Soila Joseph MD [address] [place] [address] PCP - General Family Medicine 11/18/20 documented as of this encounter
--- OUTSIDE RECORDS SUMMARY | 2025-02-19 09:02 | XMS_ITS | Clinical Summary ---
Author Organization [employer] Address [address] [place] [address] Care Team Providers Care Automobile Inspector Name Role Phone Soila Joseph MD Primary Care Provider [phone] Allergies Active Allergy Reactions Criticality Noted Date Comments Milnacipran Headache 11/30/2022 migraines Vancomycin Hives Low 01/29/2023 Hives, itching Tizanidine Hallucination 11/30/2022 Medications levothyroxine 112 MCG tablet Take 1 tablet by mouth daily. AM 10/02/19 23 Active metFORMIN 1000 MG tablet 2 times daily. 08/29/20 Active Cholecalciferol 250 MCG (18601 UT) capsule capsule Take by mouth daily. [...] Apply to eye as needed. Active Pancrelipase, Pow-Qfzg-Ythz, (CREON PO) Take 36,000 Units by mouth. [...] by Nasal route once for 1 dose. [place] into the nose as directed. Call 911. [...] Type Department Care Team Description [facility] [address] [phone] Iza Ferrari Other (Hx of Revision partial [...] this topic Medical Devices Implanted Type Area Health Information Systems Technician Device Identifier Shelf Expiration Date Model / Serial / Lot Patella - Knee - [id number] Implanted:Qty: 1 on 01/29/2023 by Sagar Gordon MD at [facility] Left: Knee 12/09/2027 / / [id number] Revision Pressfit Stem 12mmx 60 Implanted:Qty: 1 on 01/29/2023 by Sagar Gordon MD at [facility] Left: Knee 07/10/2032 1513-12-060 / / [id number] Revision Tibial Base Sz 2 Implanted:Qty: 1 on 01/29/2023 by Sagar Gordon MD at [facility] Left: Knee 09/09/2032 1506-40-002 / / [id number] Rev Offset Stem 2mm Implanted:Qty: 1 on 01/29/2023 by Sagar Gordon MD at [facility] Left: Knee DEPUY 01/08/2028 1513-02-000 / / [id number] Rev Distal Femoral Augment Sz 5 4mm Implanted:Qty: 1 on 01/29/2023 by Sagar Gordon MD at [facility] Left: Knee DEPUY 03/09/2032 1547-05-001 / / [id number] Rev Crs Femoral Sz 5 Left Implanted:Qty: 1 on 01/29/2023 by Sagar Gordon MD at [facility] Left: Knee DEPUY 03/09/2032 1504-40-105 / / [id number] Palacos R 1 X 40 Us - [id number] Implanted:Qty: 2 on 01/29/2023 by Sagar Gordon MD at [facility] Left: Knee 07/10/2027 / / [id number] [employer] High-Viscosity With Gentamicin - [id number] Implanted:Qty: 1 on 01/29/2023 by Sagar Gordon MD at [facility] Left: Knee 11/07/2025 / / [id number] Insert - Knee - [id number] Implanted:Qty: 1 on 01/29/2023 by Sagar Gordon MD at [facility] Left: Knee DEPUY 06/09/2027 / / [id number] Procedures Procedure Name Priority Date/Time Associated Diagnosis Comments HEMOGLOBIN A1C Routine 01/04/2023 12:50 PM EDT Preop testing Abnormal finding of blood chemistry, unspecified from Last 3 Months or Most Recently Relevant to Health Maintenance Results * (ABNORMAL) HEMOGLOBIN A1C (01/04/2023 12:50 PM EDT) HEMOGLOBIN A1C 6.5(H) <6 % [address] Comment: NORMAL <5.7% PREDIABETES 5.7-6.4% DIABETES 6.5% OR HIGHER Estimated Average Glucose 140 mg/dL [address] Blood 01/04/2023 12:5 0 PM EDT 01/04/2023 1:03 PM EDT Sagar Gordon MD HEMATOLOGY ORDERABLES Final Resu lt [address] [address] from Last 3 Months or Most Recently Relevant to Health Maintenance Insurance MEDICARE AETNA [address] [place] [address] Advance Directives For more information, please contact: [phone] (7:30 AM - 6PM [facility], Sunday-Sunday) * Full Code (Latest Code Status on File) Date Activated Date Inactivated Comments 01/29/2023 4:58 PM Care Teams Automobile Inspector Relationship Specialty Start Date End Date Soila Joseph MD PCP - General Family Medicine 10/20/22
--- OUTSIDE RECORDS SUMMARY | 2025-02-19 09:02 | XMS_ITS | Encounter Summary ---
Author Organization [employer] Address [facility] [id number] [address] [place] [address] Care Team Providers Care Aircraft General Repair Mechanic Name Role Phone Soila Joseph MD Primary Care Provider [phone] Encounter Details Date Type Department Care Team (Late st Contact Info) Description 11/22/2020 Orders Only [facility] [address] [place] [phone] External, Scanning Provider Social History Tobacco Use [...] on filedocumented in this encounter Care Teams Aircraft General Repair Mechanic Relationship Specialty Start Date End Date Soila Joseph MD [address] [place] [address] PCP - General Family Medicine 11/18/20 documented as of this encounter
--- OUTSIDE RECORDS SUMMARY | 2025-02-19 09:02 | XMS_ITS | Encounter Summary ---
Author Organization [email or web address] Address [facility] [id number] [address] [place] [address] Care Team Providers Care Global Marketing Coordinator Name Role Phone Soila Joseph MD Primary Care Provider [phone] Encounter Details Date Type Department Care Team (Late st Contact Info) Description 12/09/2020 Orders Only [facility] [address] [place] [phone] External, Scanning Provider Social History Tobacco Use [...] on filedocumented in this encounter Care Teams Global Marketing Coordinator Relationship Specialty Start Date End Date Soila Joseph MD [address] [place] [address] PCP - General Family Medicine 11/18/20 documented as of this encounter
--- OUTSIDE RECORDS SUMMARY | 2025-02-19 09:02 | XMS_ITS | Encounter Summary ---
Author Organization [employer] Address [facility] [id number] [address] [place] [address] Care Team Providers Care Paralegal Instructor Name Role Phone Soila Joseph MD Primary Care Provider [phone] Encounter Details Date Type Department Care Team (Late st Contact Info) Description 11/02/2020 Orders Only [facility] [address] [place] [phone] External, Scanning Provider Social History Tobacco Use [...] on filedocumented in this encounter Care Teams Paralegal Instructor Relationship Specialty Start Date End Date Soila Joseph MD [address] [place] [address] PCP - General Family Medicine 11/18/20 documented as of this encounter
--- OUTSIDE RECORDS SUMMARY | 2025-02-19 09:02 | XMS_ITS | Clinical Summary ---
Author Organization [facility] Address [address] [place], [place] [id number] Care Team Providers Care Clerk Television Production Name Role Phone Andrew Berg Primary Care Provider Allergies Active Allergy Reactions Criticality Noted Date [...] (1 - 1-dose 75+ series) 12/15/[address] [place] [address] MEDICARE ADVANTAGE PPO Care Teams Clerk Television Production Relationship Specialty Start Date End Date Andrew Berg [facility] [address] [place] [address] PCP - General 12/20/00
--- OUTSIDE RECORDS SUMMARY | 2025-02-19 09:03 | XMS_ITS | Encounter Summary ---
Author Organization [facility] [facility] Address [facility] [id number] [address] [place] [address] Care Team Providers Care Aviation Survival Technician Name Role Phone Soila Joseph MD Primary Care Provider [phone] Reason for Visit * Reason Comments Med Refill Encounter Details Date Type Department Care Team (Late st Contact Info) Description 09/07/2017 Refill [facility] [address] [place] [id number] Jerrod Juan PA [address] [facility] [place] [address] Social History Tobacco Use Types Packs/Day Years [...] on filedocumented in this encounter Care Teams Aviation Survival Technician Relationship Specialty Start Date End Date Soila Joseph MD [address] [place] [address] PCP - General Family Medicine 11/18/20 documented as of this encounter
--- OUTSIDE RECORDS SUMMARY | 2025-02-19 09:03 | XMS_ITS | Encounter Summary ---
[facility] [id number] [address] [place] [address] Care Team Providers Care Track Mechanic Name Role Phone Soila Joseph MD Primary Care Provider [phone] Encounter Details Date Type Department Care Team (Late st Contact Info) Description 10/28/2020 Orders Only [facility] [address] [place] [phone] External, Scanning Provider Social History Tobacco Use [...] on filedocumented in this encounter Care Teams Track Mechanic Relationship Specialty Start Date End Date Soila Joseph MD [address] [place] [address] PCP - General Family Medicine 11/18/20 documented as of this encounter
--- OUTSIDE RECORDS SUMMARY | 2025-02-19 09:09 | XMS_ITS | CCD ---
Author Organization [facility] Care Team Providers Care Airline Lounge Receptionist Name Role Phone Netta Montoya Unavailable Siva [...] ANN ., DR PAWEL Connors Admitting Unavailable MARY ANN ., DR PAWEL Connors Attending Unavailable LINDSAY, [...] Unavailable Montoya Netta LEVIN Primary Care Provider [phone] MD Siva Ron Attending Provider [phone] MD Netta Montoya Primary Care Provider [phone] MD Cara Leo Attending Provider NETTA MONTOYA [...] KRAUSE Attending Unavailable BRANDEE, RADHA Referring Unavailable LINDSAY, NETTA E Primary Care Unavailable BRANDEE, RADHA Referring Unavailable MONTOYA, NETTA E Primary Care Unavailable BRANDEE, RADHA Referring Unavailable MONTOYA, NETTA E Primary Care Unavailable BRANDEE, RADHA Referring Unavailable MONTOYA, NETTA E Primary Care Unavailable LAKSHMIPATHY, NARENDRANATH Referring Unava ilable LINDSAY, NETTA E Primary Care Unavailable LAKSHMIPATHY, NARENDRANATH Referring Unava ilable LINDSAY, NETTA E Primary Care Unavailable Netta Montoya MD Primary Care Provider Miguel A GENERAL HANDLING SUPERVISOR, Jb Giles Attending Provider Netta Montoya MD Primary Care Provider Jb Grady APRN Attending Provider Jb Grady Admitting Unavailable Jb Grady Attending Unavailable Netta Montoya Primary Care Unavailable Jb Grady Admitting Unavailable Jb Grady Attending Unavailable Netta Montoya E Primary Care Unavailable Jb Grady Attending Unavailable Netta Montoya E Primary Care Unavailable Jb Grady Admitting Unavailable Netta Montoya MD Primary Care Provider Jb Grady APRN Attending Provider HANY MCCORD Referring Unavailable Silke LEVIN, Chandra Nova Attending Unavailable Netta Montoya MD [facility] Unava ilable Silke LEVIN, Chandra Nova Attending Unavailable Netta Montoya MD Primary Care Unava ilable Gicelia LEVIN, Chandra Nova Attending Unavailable Netta Montoya MD [facility] Unava ilable Silke LEVIN, Chinmayrius Nova Attending Unavailable Netta Montoya MD [facility] Unava ilable Gicelia LEVIN, Chandra Nova Attending Unavailable Netta Montoya MD [facility] Unava ilable Allergies Allergy Classification Reported Allergen(s) Allergy Type Date of Onset Reaction(s) Facility (20 sources) milnacipran; Translations: [Savella] Drug Allergy 09-02-20 13 SEVERE HEADACHES [facility] Repository (20 sources) Morphine; Translations: [MORPHINE] Drug Allergy 11-19-19 21 Unknown, [facility] Repository (20 sources) tiZANidine; Translations: [Zanaflex] Drug Allergy 09-02-20 13 Hallucinations [facility] Repository (17 sources) milnacipran; Translations: [MILNACIPRAN] Drug Allergy 02-10-20 17 Headache [facility] (17 sources) tiZANidine; Translations: [TIZANIDINE] Drug Allergy 02-10-20 17 Hallucination [facility] (2 sources) Morphine Drug Allergy [facility] Repository (20 sources) Vancomycin Drug Allergy 01-30-20 23 [facility] (7 sources) Allergies Reconciled Propensity to adverse reactions Unknown [employer] Other (7 sources) Savella *PSYCHOTHERAPEU TIC AND NEUROLOGICAL AGENTS Propensity to adverse reactions Unknown [employer] Other (5 sources) Savella *PSYCHOTHERAPEU TIC AND Allergy to substance 10-24-19 24 [facility] Comment on above: Free Text Allergy: S avella *PSYCHOTHERAPEUTIC AND NEUROLOGICAL AGENTS (1 source) ALLERGIES NOT ON FILE; Translations: [ALLERGIES NOT ON FILE] Propensity to adverse reactions (disorder) [facility] Repository Medications Current Medications Medication Drug [...] day with plain water Orally Active amylase 013409 unt / lipase 98109 unt / protease [id number] unt delayed release oral capsule (14 sources) Start: 01-16-2024 take 2 capsules by mouth three times daily at mealtime, then take 1 capsule by mouth four times daily Pzjbar-Yimjhcpi-Nrv lase (Creon) 36,000-114,000- 180,000 unit capsule,delayed release(DR/EC) [...] capsule by mouth four times daily Creon [id number] UNIT 2 capsules three times a day [...] 10 mg oral tablet (2 sources) Biotin 13972 MCG tablet Take by mouth. 0 Active [...] Lindsay Cm ( ) Cholecalciferol 250 MCG (63354 UT) capsule capsule Take by mouth daily. Active Cholecalciferol 250 MCG (63859 UT) capsule capsule Take by mouth. 0 [...] 17, 2024 3:33pm take 1 capsule by [facility] every eight hours Dicyclomine HCl 10 MG 1 capsules Orally Three times a day Active take 1 tablet by [facility] every six hours Dicyclomine 20 MG tablet Take 1 tablet by mouth every 6 hours. 0 Active docusate sodium 100 mg oral capsule (19 sources) Start: 04-21-2024 End: 04-21-2024 take 1 capsule by mouth once daily Docusate Sodium (Colace) 100 mg capsule Active 100 MG PO Daily April 21, 2024 10:59am Start: 01-29-2023 take 1 capsule by [facility] twice daily Docusate 100 MG capsule Take 1 capsule by mouth 2 times daily. 60 capsule 01/29/2023 Active take 1 capsule by [facility] twice daily Docusate (Stool Softener) 100 MG capsule Take 1 capsule by mouth 2 times daily. 0 Active estrogens, conjugated (fpc) 0.625 mg/ml vaginal cream (5 sources) Estrogen [...] by Nasal route once for 1 dose. [place] into the nose as directed. Call 911. If no response in 2 minutes use a new nasal spray in other nostril. Repeat until help arrives. 1 Each 01/29/2023 Active Monroe 3 (5 sources) [place] 3 Active omeprazole 40 mg delayed release [...] daily. Active take 1 capsule by mo [facility] once daily Omeprazole 10 MG 1 capsule [...] 21, 2024 11:00am take 1 tablet by [facility] three times daily as needed Oxybutynin [...] 2 MG/1.5ML as directed Subcutaneous Active Pancrelipase, Fyk-Kvap-Ykbh, (CREON PO) (7 sources) take 1 tablet by mouth once daily Pancrelipase, Dna-Ogos-Cwue, (CREON PO) Take 36,000 Units by mouth. 2 tablet by mouth with each meal, 1 tablet by mouth with 1 snack daily Active take 1 tablet by mouth once alannah y Pancrelipase, Kat-Jvvn-Rxmn, (CREON PO) Take 36,000 Units by mouth. [...] Formula Probiotic) 10 billion cell capsule Active 72597 MMU CELLS PO Daily April 21, 2024 12:00am Start: 04-21-2024 take 10 capsules by mouth once daily Saccharomyces Boulardii (Resistance Formula Probiotic) 10 billion cell capsule Active 79578 MMU CELLS PO Daily April 20, 2024 [...] (15 sources) Stool Softener A ctive thyroid ([facility]) (5 sources) Nature-Throid Ac tive Tumeric (5 [...] mg/ml oral solution (5 sources) Phenothiazine, Uncompetitive M-bzrbxc-X-aspartat e Receptor Antagonist, Sigma-1 Agonist Start: 01-23-2024 [...] on Marleny 02/21/24 at 1310, Until Marleny 6/13/24 at 1310 Start: 11-30-2022 End: 11-30-2022 triamcinolone [...] ankle] Chronic Other aftercare (1 source) Other intermediate (current) drug therapy; 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 Normal [facility] 36on 01-29-2025 36 Patient called back, appt scheduled for 03/31/2025 at 1030. Normal [facility] X-ray reportOrdered By: David Sims on 12-26-2024 Study report [facility] [place] [address] XRay Report Signed Patient: Emily Macias MR#: [id number] : 1960 Acct:[id number] Age/Sex: 64 / F ADM Date: 5 Loc: XD Room: [facility] Attending Dr: Jb Grady APRN Copies to: Jb Grady APRN~ Ordering Provider: [...] CONSTIPATION. Impression dictated by: Bar Sims Jr., DMonalisaOMonalisa12/26/2024 1:42 PM Dictation Location: [place] [address] Transcribed By: [facility] 12/26/24 1342 Dictated By: Bar Sims Jr, DO 12/26/24 1342 Signed By: 12/26/24 1342 [facility] XR KUBon 12-26-2024 XR KUB [facility] [address] [address] XRay Report Signed Patient: Emily Macias MR#: [id number] : 1960 Acct:[id number] Age/Sex: 64 / F ADM Date: 12/26/24 Loc: XD Room: [facility] Attending Dr: Jb Grady APRN Copies [...] CONSTIPATION. Impression dictated by: Bar Sims Jr., DNithya12/26/2024 1:42 PM Dictation Location: [place] [address] Transcribed By: [facility] 12/26/24 1342 Dictated By: Bar Sims Jr, DO 12/26/24 1342 Signed By: 12/26/24 1342 Normal [facility] Basophils Auto (Bld) [#/Vol] on 11-10-2024 Basophils (Bld) [#/Vol] Automated basophil count 0.0-0.1 [facility] Basophils/100 WBC Auto (Bld) on 11-10-2024 Basophils/100 WBC (Bld) Automated basophil % 0.2-2.0 [facility] Eosinophils/100 WBC Auto (Bl d)on 11-10-2024 Eosinophils/100 WBC (Bld) Automated eosinophil % 0.9-7.0 [facility] Erythrocyte distribution wid th Auto (RBC) [Ratio]on 11-10-2024 Erythrocyte distribution width (RBC) [Ratio] Erythrocyte distribution width [Ratio] by Automated count 11.0-15.0 [facility] Estimated glomerular filtrat ion rate (GFR) non- Americanon 11-10-2024 GFR/1.73 sq M.predicted among non-blacks MDRD (S/P/Bld) [Vol rate/Area] Estimated glomerular filtration rate (GFR) non- >=60 mL/min/1.73m 2 [facility] Globulin Calc (S) [Mass/Vol] on 11-10-2024 Globulin (S) [Mass/Vol] Serum globulin measurement by calculation (mass/volume) [facility] Hematocrit Auto (Bld) [Volum e fraction]on 11-10-2024 Hematocrit (Bld) [Volume fraction] Hematocrit [Volume Fraction] of Blood by Automated count 36.0-48.0 [facility] Hemoglobin [Mass/volume] in Bloodon 11-10-2024 Hemoglobin (Bld) [Mass/Vol] Hemoglobin [Mass/volume] in Blood 12.0-16.0 [facility] Laboratory - Chemistry and C hemistry - challengeon 11-10-2024 Albumin [Mass/Vol] 3.7 g/dL 3.4-5.0 [facility] ALP [Catalytic activity/Vol] 81 U/L 46-116 [facility] ALT [Catalytic activity/Vol] 23 U/L 14-59 [facility] AST [Catalytic activity/Vol] 18 U/L 15-37 [facility] Bilirubin [Mass/Vol] 0.3 mg/dL 0.2-1.0 [facility] Calcium [Mass/Vol] 9.6 mg/dL 8.5-10.1 [facility] Chloride [Moles/Vol] 105 mmol/L 98-107 [facility] CO2 [Moles/Vol] 30.0 mmol/L 21.0-32.0 [facility] Creatinine [Mass/Vol] 0.80 mg/dL 0.55-1.02 [facility] GFR/1.73 sq M.predicted MDRD (S/P/Bld) [Vol rate/Area] mL/min/{1.73_m2} >=60 mL/min/1.73m 2 [facility] Glucose [Mass/Vol] 110 mg/dL High 74-106 [facility] Potassium [Moles/Vol] 4.9 mmol/L 3.5-5.1 [facility] Protein [Mass/Vol] 7.1 g/dL 6.4-8.2 [facility] Sodium [Moles/Vol] 144 mmol/L 136-145 [facility] Urea nitrogen [Mass/Vol] 21.0 mg/dL High 7.0-18.0 [facility] Urea nitrogen/Creatinine [Mass ratio] 26.3 mg/mg [facility] Laboratory - Hematology and Cell countson 11-10-2024 Immature granulocytes/100 WBC (Bld) 0.3 % 0.0-0.5 [facility] Leukocytes [#/volume] correc penelope for nucleated erythrocytes in Blood by Automated counon 11-10-2024 WBC corrected for nucl RBC Auto (Bld) [#/Vol] Leukocytes [#/volume] corrected for nucleated erythrocytes in Blood by Automated coun 4.0-11.0 [facility] Lymphocytes Auto (Bld) [#/Vo l]on 11-10-2024 Lymphocytes (Bld) [#/Vol] Lymphocytes [#/volume] in Blood by Automated count 1.2-3.8 [facility] Lymphocytes/100 WBC Auto (Bl d)on 11-10-2024 Lymphocytes/100 WBC (Bld) Lymphocytes/100 leukocytes in Blood by Automated count 20.5-60.0 [facility] MCH Auto (RBC) [Entitic mass ]on 11-10-2024 MCH (RBC) [Entitic mass] MCH [Entitic mass] by Automated count 26.7-34.0 [facility] MCHC Auto (RBC) [Mass/Vol]on 11-10-2024 MCHC (RBC) [Mass/Vol] MCHC [Mass/volume] by Automated count 29.9-35.2 [facility] MCV Auto (RBC) [Entitic vol] on 11-10-2024 MCV (RBC) [Entitic vol] MCV [Entitic volume] by Automated count 81.0-99.0 [facility] Monocytes Auto (Bld) [#/Vol] on 11-10-2024 Monocytes (Bld) [#/Vol] Automated blood monocyte count 0.3-0.8 [facility] Monocytes/100 WBC Auto (Bld) on 11-10-2024 Monocytes/100 WBC (Bld) Automated monocyte % 1.7-12.0 [facility] Neutrophils Auto (Bld) [#/Vo l]on 11-10-2024 Neutrophils (Bld) [#/Vol] Neutrophils [#/volume] in Blood by Automated count 1.4-6.5 [facility] Neutrophils/100 WBC Auto (Bl d)on 11-10-2024 Neutrophils/100 WBC (Bld) Automated neutrophil % 43.0-75.0 [facility] No Panel Informationon 11-10 Eosinophils # (Auto) 0.2 10 3/uL 0.0-0.7 [facility] Immature Granulocyte # (Auto) 0.02 10 3/uL 0.00-0.03 [facility] Platelet mean volume Auto (B ld) [Entitic vol]on 11-10-2024 Platelet mean volume (Bld) [Entitic vol] Platelet mean volume [Entitic volume] in Blood by Automated count 9.5-13.5 [facility] Platelets Auto (Bld) [#/Vol] on 11-10-2024 Platelets (Bld) [#/Vol] Platelets [#/volume] in Blood by Automated count 150-450 [facility] RBC Auto (Bld) [#/Vol]on RBC (Bld) [#/Vol] Erythrocytes [#/volume] in Blood by Automated count 4.20-5.40 [facility] Serum or plasma albumin/glob ulin mass ratioon 11-10-2024 Albumin/Globulin [Mass ratio] Serum or plasma albumin/globulin mass ratio [facility] Serum or plasma anion gap de terminationon 11-10-2024 Anion gap [Moles/Vol] Serum or plasma an ion gap determination [facility] Campy coli+jejuni BD MaxOrde red By: Jb Grady on 09-30-2024 C. coli+jejuni tuf gene DAISY+probe Ql (Stl) Campy coli+jejuni BD Max Negative [facility] Comment on above: Campylobacter test i ncludes C. jejuni and C. coli. Clostridioides difficile tox in B tcdB gene [Presence] in Stool by DAISY with probe deteOrdered By: Jb Grady on 09-30-2024 C. difficile toxin B tcdB gene DAISY+probe Ql (Stl) Clostridioides difficile toxin B tcdB gene [Presence] in Stool by DAISY with probe dete Negative [facility] Comment on above: Testing performed by RT-PCR Clostridium Difficileon 09-11 Clostridium Difficile Negative Normal Negative [facility] Comment on above: Result Comment: Test ing performed by RT-PCR PERFORMED BY: [place] [address] PATHOLOGIST CAR LOADER BENNY ARAUJO M.D. Performed By: #### S TCYRPTOAG, GIARDIA #### [facility] , #### CDT, ENT BACT PANEL #### [facility] [address] [place] [address] Cryptosporidium Antigen Stoo kristofer 09-30-2024 Cryptosporidium Antigen Stool Negative Normal Negative [facility] Comment on above: Order Comment: SOURC E OF SPECIMEN: STOOL Performed By: #### S TCYRPTOAG, GIARDIA #### [facility] , #### CDT, ENT BACT PANEL #### [facility] [address] [place] [address] Cryptosporidium sp Ag [Prese nce] in Stool by ImmunoassayOrdered By: Jb Grady on 09-30-2024 Cryptosporidium sp Ag IA Ql (Stl) Cryptosporidium sp Ag [Presence] in Stool by Immunoassay Negative [facility] Giardia Lamblia Ag EIA Stool on 09-30-2024 Giardia Lamblia Ag EIA Stool Negative Normal Negative [facility] Comment on above: Order Comment: SOURC E OF SPECIMEN: STOOL Result Comment: Perf ormed at: - [facility] [address] [id number] Configuration Management Manager: Tra Bay PhD, Phone: [phone] PERFORMED BY: [place] [address] PATHOLOGIST CAR LOADER BENNY ARAUJO M.D. Performed By: #### S TCYRPTOAG, GIARDIA #### [facility] , #### CDT, ENT BACT PANEL #### [facility] [address] Giardia lamblia Ag [Presence ] in Stool by ImmunoassayOrdered By: Jb Grady on 09-30-2024 G. lamblia Ag IA Ql (Stl) Giardia lamblia Ag [Presence] in Stool by Immunoassay Negative [facility] Comment on above: Performed at: [address] [id number] Director: Tra Bay PhD, Phone: [phone] Salmonellosis BD MaxOrdered By: Jb Grady on 09-30-2024 Salmonella sp spaO gene DAISY+probe Ql (Stl) Salmonella sp spaO gene [Presence] in Stool by DAISY with probe detection Negative [facility] Comment on above: Testing performed by RT-PCR Shigella Tox 1+2 BD MaxOrder ed By: Jb Grady on 09-30-2024 E. coli stx1+stx2 genes DAISY+probe Ql (Stl) Escherichia coli Stx1 and Stx2 toxin stx1+stx2 genes [Presence] in Stool by DAISY with Negative [facility] Shigellosis BD MaxOrdered By : Jb Grady on 09-30-2024 Shigella species+EIEC invasion plasmid antigen H ipaH gene DAISY+probe Ql (Stl) Shigella species+EIEC invasion plasmid antigen H ipaH gene [Presence] in Stool by DAISY Negative [facility] Comment on above: Shigella sp. test in cludes Shigella species and Enteroinvasive E. coli (EIEC). Stool Bacterial Panelon 09-11 Campylobacter Negative Normal Negative [facility] Comment on above: Result Comment: Camp ylobacter test includes C. jejuni and C. coli. Performed By: #### S TCYRPTOAG, GIARDIA #### [facility] , #### CDT, ENT BACT PANEL #### [address] Salmonella Species Negative Normal Negative [facility] Comment on above: Result Comment: Test ing performed by RT-PCR PERFORMED BY: [place] [address] PATHOLOGIST CAR LOADER BENNY ARAUJO M.D. Performed By: #### S TCYRPTOAG, GIARDIA #### [facility] , #### CDT, ENT BACT PANEL #### [facility] [address] Shiga Toxin (E coli O157+oth) Negative Normal Negative [facility] Comment on above: Performed By: #### S TCYRPTOAG, GIARDIA #### [facility] , #### CDT, ENT BACT PANEL #### [address] Shigella Species Negative Normal Negative [facility] Comment on above: Result Comment: Shig brandy sp. test includes Shigella species and Enteroinvasive E. coli (EIEC). Performed By: #### S TCYRPTOAG, GIARDIA #### [facility] , #### CDT, ENT BACT PANEL #### [address] 36on 09-18-2024 36 LVM for pt to call clinic to schedule consult with Dr. Mccord for Surgical intervention vs SCS. Please let procedure writer or Nayana Crenshaw MA know when scheduled so we may notify [facility] reps. Normal [facility] Telephoneon 09-18-2024 Telephone [phone] Emily Macias 1960 F Date Provider Department Center 09/18/2024 [facility] SURG Second Fl No family history on file Reason for Visit and Comments: REFERRAL CONSULT [Other] Normal [facility] XR KUBon 08-29-2024 XR KUB [facility] [place] [address] XRay Report Signed Patient: Emily Macias MR#: [id number] : 1960 Acct:[id number] Age/Sex: 63 / F ADM Date: 08/29/24 Loc: XD [facility]: [facility] Attending Dr: Jb Grady GENERAL HANDLING SUPERVISOR Copies to: Jb Grady APRN Ordering Provider: [...] Sims Jr., D.O.08/29/2024 3:27 PM Dictation Location: [place] [address] Transcribed By: [facility] 08/29/24 1527 Dictated By: Bar Sims Jr, DO 08/29/24 1526 Signed By: 08/29/24 1527 Normal [facility] HbA1c HPLC (Bld) [Mass fract ion]on 07-29-2024 HbA1c (Bld) [Mass fraction] Hemoglobin A1c/Hemoglobin.total in Blood by HPLC [facility] Estimated glomerular filtrat ion rate (GFR) non- Americanon 07-17-2024 GFR/1.73 sq M.predicted among non-blacks MDRD (S/P/Bld) [Vol rate/Area] Estimated glomerular filtration rate (GFR) non- >=60 mL/min/1.73m 2 [facility] Globulin Calc (S) [Mass/Vol] on 07-17-2024 Globulin (S) [Mass/Vol] Serum globulin measurement by calculation (mass/volume) [facility] Iron binding capacity [Mass/ volume] in Serum or Plasmaon 07-17-2024 Iron binding capacity [Mass/Vol] Iron binding capacity [Mass/volume] in Serum or Plasma 250.0-450.0 [facility] Iron saturation [Mass Fracti on] in Serum or Plasmaon 07-17-2024 Iron saturation [Mass fraction] Iron saturation [Mass Fraction] in Serum or Plasma [facility] Laboratory - Chemistry and C hemistry - challengeon 07-17-2024 Albumin [Mass/Vol] 3.8 g/dL 3.4-5.0 [facility] ALP [Catalytic activity/Vol] 81 U/L 46-116 [facility] ALT [Catalytic activity/Vol] 21 U/L 14-59 [facility] AST [Catalytic activity/Vol] 18 U/L 15-37 [facility] Bilirubin [Mass/Vol] 0.4 mg/dL 0.2-1.0 [facility] Calcium [Mass/Vol] 9.2 mg/dL 8.5-10.1 [facility] Chloride [Moles/Vol] 105 mmol/L 98-107 [facility] CO2 [Moles/Vol] 24.1 mmol/L 21.0-32.0 [facility] Cobalamin (Vitamin B12) [Mass/Vol] 887 pg/mL 232-1245 [facility] Comment on above: Performed at: [address] [id number] Director: Tra Bay PhD, Phone: [phone] Creatinine [Mass/Vol] 0.84 mg/dL 0.55-1.02 [facility] Ferritin [Mass/Vol] 63.0 ng/mL 8.0-252.0 [facility] Free T4 [Mass/Vol] 1.23 ng/dL 0.76-1.46 [facility] GFR/1.73 sq M.predicted MDRD (S/P/Bld) [Vol rate/Area] mL/min/{1.73_m2} >=60 mL/min/1.73m 2 [facility] Glucose [Mass/Vol] 150 mg/dL High 74-106 [facility] Iron [Mass/Vol] 63.0 ug/dL 50.0-170.0 [facility] Potassium [Moles/Vol] 4.2 mmol/L 3.5-5.1 [facility] Protein [Mass/Vol] 7.1 g/dL 6.4-8.2 [facility] Sodium [Moles/Vol] 141 mmol/L 136-145 [facility] TSH Qn 0.749 m[IU]/L 0.358-3.740 [facility] Urea nitrogen [Mass/Vol] 21.0 mg/dL High 7.0-18.0 [facility] Urea nitrogen/Creatinine [Mass ratio] 25.0 mg/mg [facility] No Panel Informationon 07-17 25-Hydroxy Vitamin D Total 80.1 ng/mL [facility] Comment on above: <20 ng/mL Vit D defi cient20-<30 ng/mL Vit D cnikiqyapptk03-919 ng/mL Vit D sufficient>100 ng/mL Potential Toxicity Serum or plasma albumin/glob ulin mass ratioon 07-17-2024 Albumin/Globulin [Mass ratio] Serum or plasma albumin/globulin mass ratio [facility] Serum or plasma anion gap de terminationon 07-17-2024 Anion gap [Moles/Vol] Serum or plasma an ion gap determination [facility] No Panel Informationon 02-26 Radiology Study observation (narrative) [facility] LARGE JOINT/BURSA INJECTION AND/OR ASPIRATION: [...] complications The patient was prepped with Chloraprep. [facility] Sagar Krause MD 02/27/2024 1:38 [...] MG/ML The patient was prepped with Betadine. A.P [employer] No Panel Informationon 02-20 [employer] [facility] Glucose Glucometer (BldC) [M ass/Vol]Ordered By: Siva Ron on 05-09-2023 Glucose [Mass/Vol] 136 mg/dL [facility] Comment on above: Random Glucose Refer ence Range is dependent on time and content of last meal. Glucose of more than 200 mg/dL in a nonstressed, ambulatory subject supports the diagnosis of Diabetes Mellitus. No Panel InformationOrdered By: Siva Ron on 05-09-2023 Bedside Glucose Comment Glu2: cleaned meter [facility] PANCREATIC ELASTASE FECALon 01-22-2023 Pancreatic Elastase, Fecal 128 ug Elast./g Critically low >200 [facility] Comment on above: Result Comment: Jihan re Pancreatic Insufficiency: <100 Moderate Pancreatic Insufficiency: 100 - 200 Normal: >200 Performed By: #### H PYLORI #### [facility] [address] [place] [address] [address] Irene Cedillo LACTOFERRIN FECAL QUANTon Lactoferrin, Fecal, Quant. <1.00 Normal 0.00-7.24 [facility] Comment on above: Result Comment: Re sults [...] (IBS). Performed By: #### S EDR #### [facility] [address] [place] [address] [address] Irene Cedillo CALPROTECTIN, FECALon 2022 Calprotectin, Fecal 139 ug/g Critically high 0-120 [facility] Comment on above: Result Comment: Conc entration Interpretation Follow-Up <16 - 50 ug/g Normal None >50 -120 ug/g Borderline Re-evaluate in 4-6 weeks >120 ug/g Abnormal Repeat as clinically indicated Performed By: #### H PYLORI #### [facility] [address] [place] [address] Dr. Irene Cedillo PANCREATIC ELASTASE FECALon 01-15-2023 Pancreatic Elastase, Fecal 161 ug Elast./g Critically low >200 [facility] Comment on above: Result Comment: Jihan re Pancreatic Insufficiency: <100 Moderate Pancreatic Insufficiency: 100 - 200 Normal: >200 Performed By: #### A NTI-NICOLLE #### [facility] [address] [place] [address] Dr. Irene Cedillo TSHon 01-09-2023 TSH 1.630 uIU/mL Normal 0.358-3.740 [facility] Comment on above: Performed By: #### T SH #### [facility] [address] [place] [address] Dr. Irene Cedillo ANTIHISTIONE ANTIBODIESon Anti-histone Abs 0.5 Units Normal 0.0-0.9 [facility] Comment on above: Result Comment: Nega tive <1.0 Weak Positive 1.0 - 1.5 Moderate Positive 1.6 - 2.5 Strong Positive >2.5 Performed By: #### C K, CRP #### [facility] [address] [place] [address] Dr. Irene Cedillo LARGE JOINT/BURSA INJECTION AND/OR [...] complications The patient was prepped with Betadine. [facility] Radiology Study observation (narrative) [facility] US PELVIS AND TRANSVAGon US PELVIS AND TRANSVAG EXAM: US PELVIS AND TRANSVAG HISTORY: Left lower quadrant pain COMPARISON: None. TECHNIQUE: Pelvic sonography was performed utilizing grayscale and color Doppler technique. FINDINGS/ IMPRESSION: 1. Hysterectomy. 2. Ovaries not visualized. 3. No adnexal mass. 4. No significant free fluid. Electronically authenticated by: BRI BERGER Date: 2022-11-10 15:54 Normal [facility] LUPUS ANTICOAGULANT PROFILEo n 10-27-2022 Anticardiolipin Ab, IgG <10 Normal [facility] Comment on above: Result Comment: Refe rence Range: Negative: <15 Indeterminate: 15 - 20 Low to medium positive: >20 - 80 High positive: >80 Performed By: #### L UPUSAC #### [facility] [address] [address] [address] Irene Cedillo Anticardiolipin Ab, IgM <10 Normal [facility] Comment on above: Result Comment: Refe rence Range: Negative: <13 Indeterminate: 13 - 20 Low to medium positive: >20 - 80 High positive: >80 Performed By: #### L UPUSAC #### [facility] [address] [address] [address] 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 It has not been cleared or approved by the [place] Food and Drug Administration. Performed By: #### L UPUSAC #### [facility] [address] [address] [address] Irene Cedillo APTT 1:1 Saline NIY Normal [facility] Comment on above: Result Comment: Test ing Not Indicated This test was developed and its performance characteristics determined by [facility]. It has not been cleared or approved by the [place] Food and Drug Administration. Performed By: #### L UPUSAC #### [facility] [address] [address] [address] Irene Cedillo aPTT Coag (Bld) [Time] 23.0 s Normal [facility] Comment on above: Result Comment: This test has not been validated for monitoring unfractionated heparin therapy. aPTT-based therapeutic ranges for unfractionated heparin therapy have not been established. Consider ordering Heparin anti-Xa (unfractionated). Reference Range: 18 years and older: 22.9 - 30.2 Performed By: #### L UPUSAC #### [facility] [address] [place] [address] Dr. Irene Cedillo Beta-2 Glycoprotein I, IgA <10 Normal [facility] Comment on above: Result Comment: The reference interval reflects a 3SD or 99th percentile interval. Reference Range: Negative: <26 Performed By: #### L UPUSAC #### [facility] [address] [place] [address] Dr. Irene Cedillo Beta-2 Glycoprotein I, IgG <10 Normal [facility] Comment on above: Result Comment: The reference interval reflects a 3SD or 99th percentile interval. Reference Range: Negative: <21 Performed By: #### L UPUSAC #### [facility] [address] [place] [address] Dr. Irene Cedillo Beta-2 Glycoprotein I, IgM <10 Normal [facility] Comment on above: Result Comment: The reference interval reflects a 3SD or 99th percentile interval. Reference Range: Negative: <33 Performed By: #### L UPUSAC #### [facility] [address] [place] [address] Dr. Irene Cedillo DRVVT Confirm Seconds NIY Normal [facility] Comment on above: Result Comment: Test ing Not Indicated Performed By: #### L UPUSAC #### [facility] [address] [place] [address] Dr. Irene Cedillo DRVVT Ratio NIY Normal [facility] Comment on above: Result Comment: Test ing Not Indicated Performed By: #### L UPUSAC #### [facility] [address] [address] [address] Irene Cedlilo DRVVT Screen Seconds 33.2 sec Normal [facility] Comment on above: Result Comment: Refe rence Range: <= 47.0 Performed By: #### L UPUSAC #### [facility] [address] [address] [address] Irene Cedillo Hexagonal Phospholipid Neutral 0 sec Normal [facility] Comment on above: Result Comment: This value is NEGATIVE. This is a qualitative assay and is therefore reported as positive for lupus anticoagulant or negative. The quantitative value is provided as an aid in diagnosis. Reference Range: 0 - 11 Performed By: #### L UPUSAC #### [facility] [address] [address] [address] Irene Cedillo INR Coag (PPP) [Relative time] 0.9 {INR} Normal [facility] Comment on above: Result Comment: Refe rence Range: >1 month: 0.9 - 1.2 Performed By: #### L UPUSAC #### [facility] [address] [address] [address] Irene Cedillo LAC Interpretation Comment Normal [facility] Comment on above: Result Comment: A arelis pus anticoagulant is not detected. All antiphospholipid antibodies evaluated are normal. As antibody titers may fluctuate with time, repeat testing may be indicated. Please contact [facility] if further clarification is needed. Performed By: #### L UPUSAC #### [facility] [address] [place] [address] Dr. Irene Cedillo Platelet Neutralization 0.0 sec Normal [facility] Comment on above: Result Comment: Refe rence Range: 0.0 - 3.0 This test was developed and its performance characteristics determined by [employer]. It has not been cleared or approved by the Food and Drug Administration. Performed By: #### L UPUSAC #### [facility] [address] [place] [address] Dr. Irene Cedillo PT Coag (PPP) [Time] 10.0 s Normal [facility] Comment on above: Result Comment: Refe rence Range: 18 years and older: 9.1 - 12.0 Performed By: #### L UPUSAC #### [facility] [address] [address] [address] Irene Cedillo Thrombin Time 15.5 sec Normal [facility] Comment on above: Result Comment: Refe rence Range: 0.0 - 23.0 Performed By: #### L UPUSAC #### [facility] [address] [address] [address] Irene Cedillo ADRI by IFAon 10-23-2022 Antinuclear Antibodies, IFA Positive Abnormal [facility] Comment on above: Result Comment: Nega tive <1:80 Borderline 1:80 Positive >1:80 Performed By: #### T SH #### [facility] [address] [address] [address] Irene Cedillo Centriole Pattern Normal [facility] Comment on above: Performed By: #### T SH #### [facility] [address] [address] [address] Irene Cedillo Centromere Pattern Normal [facility] Comment on above: Performed By: #### T SH #### [facility] [address] [address] [address] Irene Cedillo Homogeneous Pattern 1:320 Critically high [facility] Comment on above: Result Comment: ICAP nomenclature: AC-1 Performed By: #### T SH #### [facility] [address] [address] [address] Irene Cedillo Midbody Pattern Normal [facility] Comment on above: Performed By: #### T SH #### [facility] [address] [address] [address] Irene Cedillo Note: Comment Normal [facility] Comment on above: Result Comment: For more [...] titers Nucleosomes, Histones Drug-induced SLE Speckled Sm, COMMUNICATIONS DEPARTMENT HEAD, SCL-70, SLE,MCTD,PSS (diffuse form), SS-A/SS-B Sjogrens Nucleolar SCL-70, PM-1/SCL High titers Scleroderma, PM/DM Centromere Centromere PSS (limited form) w/Crest syndrome variable Nuclear Dot [id number] Primary Biliary Cirrhosis Nuclear GP210, Primary Biliary Cirrhosis Membrane margie A,B,C Performed By: #### T SH #### [facility] [address] [place] [address] Dr. Irene Cedillo Nuclear Dot Pattern Normal [facility] Comment on above: Performed By: #### T SH #### [facility] [address] [place] [address] Dr. Irene Cedillo Nuclear Membrane Pattern Normal [facility] Comment on above: Performed By: #### T SH #### [facility] [address] [place] [address] Dr. Irene Cedillo Nucleolar Pattern Normal [facility] Comment on above: Performed By: #### T SH #### [facility] [address] [place] [address] Dr. Irene Cedillo PCNA Pattern Normal [facility] Comment on above: Performed By: #### T SH #### [facility] [address] [place] [address] Dr. Irene Cedillo Speckled Pattern Normal [facility] Comment on above: Performed By: #### T SH #### [facility] [address] [place] [address] Dr. Irene Cedillo Spindle Apparatus Pattern Normal [facility] Comment on above: Performed By: #### T SH #### [facility] [address] [place] [address] Dr. Irene Cedillo ALDOLASEon 10-19-2022 Aldolase 3.6 U/L Normal 3.3-10.3 [facility] Comment on above: Performed By: #### T SH #### [facility] [address] [place] [address] Dr. Irene Cedillo ANTI-CENTROMERE B ABon 10-19 Anti-Centromere B Antibodies <0.2 Normal 0.0-0.9 [facility] Comment on above: Performed By: #### S EDR #### [facility] [address] [place] [address] Dr. Irene Cedillo ANTI-DNA DS ABon 10-19-2022 Anti-DNA (DS) Ab Qn 1 IU/mL Normal 0-9 [facility] Comment on above: Result Comment: Nega tive <5 Equivocal 5 - 9 Positive >9 Performed By: #### C CPAB #### [facility] [address] [place] [address] Dr. Irene Cedillo ANTI-NICOLLE-1on 10-19-2022 Anti-Nicolle-1 <0.2 Normal 0.0-0.9 [facility] Comment on above: Performed By: #### A NTI-NICOLLE #### [facility] [address] [place] [address] Dr. Irene Cedillo ANTICHROMATIN ANTIBODIESon 0 10-19-2022 Antichromatin Antibodies 0.5 AI Normal 0.0-0.9 [facility] Comment on above: Performed By: #### C K, CRP #### [facility] [address] [place] [address] Dr. Irene Cedillo ANTIEXTRACTABLE NUCLEAR ANTI BODIESon 10-19-2022 COMMUNICATIONS DEPARTMENT HEAD Antibodies <0.2 Normal 0.0-0.9 [facility] Comment on above: Performed By: #### H PYLORI #### [facility] [address] [place] [address] Dr. Irene Cedillo Performed By: #### C CPAB #### [facility] [address] [place] [address] Dr. Irene Cedillo Murary Antibodies <0.2 Normal 0.0-0.9 [facility] Comment on above: Performed By: #### H PYLORI #### [facility] [address] [place] [address] Dr. Irene Cedillo Performed By: #### C CPAB #### [facility] [address] [place] [address] Dr. Irene Cedillo ANTISCLERODERMA ABon 023 Antiscleroderma-70 Antibodies <0.2 Normal 0.0-0.9 [facility] Comment on above: Performed By: #### A NSCLER #### [facility] [address] [address] [address] Irene Cedillo C3 and C4 COMPLEMENTon 10-19 Complement C3, Serum 171 mg/dL Critically high 82-167 [facility] Comment on above: Performed By: #### H PYLORI #### [facility] [address] [address] [address] Irene Cedillo Complement C4, Serum 41 mg/dL Critically high 12-38 [facility] Comment on above: Performed By: #### H PYLORI #### [facility] [address] [address] [address] Irene Cedillo COMPLEMENT TOTAL (CH50)on Complement, Total (CH50) >60 Normal >41 [facility] Comment on above: Result Comment: Age Male [...] Performed By: #### C K, CRP #### [facility] [address] [place] [address] Dr. Irene Cedillo CYCLIC CITRULLINATED PEPTIDE AB (CCP)on 10-19-2022 CCP Antibodies IgG/IgA 3 units Normal 0-19 [facility] Comment on above: Result Comment: Nega tive <20 Weak positive 20 - 39 Moderate positive 40 - 59 Strong positive >59 Performed By: #### C CPAB #### [facility] [address] [place] [address] Dr. Irene Cedillo MITICHONDRIAL (M2) ANTIBODYo n 10-19-2022 Mitochondrial (M2) Antibody <20.0 Normal 0.0-20.0 [facility] Comment on above: Result Comment: Nega tive 0.0 - 20.0 Equivocal 20.1 - 24.9 Positive >24.9 . Mitochondrial (M2) Antibodies are found in 90-96% of patients with primary biliary cirrhosis. Performed By: #### C K, CRP #### [facility] [address] [address] [address] Irene Cedillo RHEUMATOID FACTORon 10-19-19 23 RA Latex Turbid. <10.0 Normal <14.0 [facility] Comment on above: Performed By: #### C CPAB #### [facility] [address] [place] [address] Dr. Irene Cedillo RPR QUANTon 10-19-2022 Rapid Plasma Reagin, Quant Non-Reactive Normal NonRea<1:1 [facility] Comment on above: Result Comment: Plea se Note: This test does not meet current guidelines for screening and diagnosis of syphilis. This test is intended for following treatment response in patients being treated for syphilis infection. To screen for syphilis infection, a reflex cascade that includes both RPR and a treponema-specific assay should be utilized, such as Treponema pallidum (Syphilis) Screening [place] (641151) or Rapid Plasma Reagin (RPR) Test With Reflex to Quantitative RPR and Confirmatory Treponema pallidum Antibodies (977993). Performed By: #### T SH #### [facility] [address] [place] [address] Dr. Irene Cedillo SJOGRENS ANTIBODIES (Anti SS A/B)on 10-19-2022 Sjogren's Anti-SS-A <0.2 Normal 0.0-0.9 [facility] Comment on above: Performed By: #### S EDR #### [facility] [address] [place] [address] Dr. Irene Cedillo Sjogren's Anti-SS-B <0.2 Normal 0.0-0.9 [facility] Comment on above: Performed By: #### S EDR #### [facility] [address] [address] [address] Irene Cedillo SMOOTH MUSCLE ANTIBODYon Actin (Smooth Muscle) Antibody 5 Units Normal 0-19 [facility] Comment on above: Result Comment: Nega tive 0 - 19 Weak positive 20 - 30 Moderate to strong positive >30 . Actin Antibodies are found in 52-85% of patients with autoimmune hepatitis or chronic active hepatitis and in 22% of patients with primary biliary cirrhosis. Performed By: #### C K, CRP #### [facility] [address] [place] [address] Dr. Irene Cedillo THYROGLOBULIN ABon Thyroglobulin Antibody <1.0 Normal 0.0-0.9 [facility] Comment on above: Result Comment: Thyr oglobulin Antibody measured by [employer] Performed By: #### C CPAB #### [facility] [address] [place] [address] Dr. Irene Cedillo THYROID PEROXIDASE ABon 02- Thyroid Peroxidase (TPO) Ab 11 IU/mL Normal 0-34 [facility] Comment on above: Performed By: #### T SH #### [facility] [address] [place] [address] Dr. Irene Cedillo CBC AUTO DIFFon 10-18-2022 BASO # 0.1 103/ul Normal 0.0-0.1 [facility] Comment on above: Performed By: #### C K, CRP #### [facility] [address] [place] [address] Dr. Irene Cedillo Basophils/100 WBC (Bld) 0.7 % Normal 0.2-2.0 [facility] Comment on above: Performed By: #### C K, CRP #### [facility] [address] [place] [address] Dr. Irene Cedillo EO # 0.2 103/ul Normal 0.0-0.7 [facility] Comment on above: Performed By: #### C K, CRP #### [facility] [address] [place] [address] Dr. Irene Cedillo Eosinophils/100 WBC (Bld) 2.8 % Normal 0.9-7.0 [facility] Comment on above: Performed By: #### C K, CRP #### [facility] [address] [place] [address] Dr. Irene Cedillo Erythrocyte distribution width (RBC) [Ratio] 13.4 % Normal 11.0-15.0 [facility] Comment on above: Performed By: #### C K, CRP #### [facility] [address] [place] [address] Dr. Irene Cedillo Hematocrit (Bld) [Volume fraction] 43.6 % Normal 36.0-48.0 [facility] Comment on above: Performed By: #### C K, CRP #### [facility] [address] [place] [address] Dr. Irene Cedillo Hemoglobin (Bld) [Mass/Vol] 14.1 g/dL Normal 12.0-16.0 [facility] Comment on above: Performed By: #### C K, CRP #### [facility] [address] [place] [address] Dr. Irene Cedillo IG # 0.01 10e3/ul Normal 0.00-0.03 [facility] Comment on above: Performed By: #### C K, CRP #### [facility] [address] [place] [address] Dr. Irene Cedillo IG % 0.1 % Normal 0.0-0.5 [facility] Comment on above: Performed By: #### C K, CRP #### [facility] [address] [place] [address] Dr. Irene Cedillo LYMPH # 2.5 103/ul Normal 1.2-3.8 [facility] Comment on above: Performed By: #### C K, CRP #### [facility] [address] [place] [address] Dr. Irene Cedillo Lymphocytes/100 WBC (Bld) 35.9 % Normal 20.5-60.0 [facility] Comment on above: Performed By: #### C K, CRP #### [facility] [address] [place] [address] Dr. Irene Cedillo MANUAL DIFF REQ NO Normal [facility] Comment on above: Performed By: #### C K, CRP #### [facility] [address] [place] [address] Dr. Irene Cedillo MCH (RBC) [Entitic mass] 29.6 pg Normal 26.7-34.0 [facility] Comment on above: Performed By: #### C K, CRP #### [facility] [address] [place] [address] Dr. Irene Cedillo MCHC (RBC) [Mass/Vol] 32.3 g/dL Normal 29.9-35.2 [facility] Comment on above: Performed By: #### C K, CRP #### [facility] [address] [place] [address] Dr. Irene Cedillo MCV (RBC) [Entitic vol] 91.6 fL Normal 81.0-99.0 [facility] Comment on above: Performed By: #### C K, CRP #### [facility] [address] [place] [address] Dr. Irene Cedillo MONO # 0.4 103/ul Normal 0.3-0.8 [facility] Comment on above: Performed By: #### C K, CRP #### [facility] [address] [place] [address] Dr. Irene Cedillo Monocytes/100 WBC (Bld) 5.2 % Normal 1.7-12.0 [facility] Comment on above: Performed By: #### C K, CRP #### [facility] [address] [place] [address] Dr. Irene Cedillo NEUT # 3.8 103/ul Normal 1.4-6.5 [facility] Comment on above: Performed By: #### C K, CRP #### [facility] [address] [place] [address] Dr. Irene Cedillo Neutrophils/100 WBC (Bld) 55.3 % Normal 43.0-75.0 [facility] Comment on above: Performed By: #### C K, CRP #### [facility] [address] [place] [address] Dr. Irene Cedillo Platelet mean volume (Bld) [Entitic vol] 9.7 fL Normal 9.5-13.5 [facility] Comment on above: Performed By: #### C K, CRP #### [facility] [address] [place] [address] Dr. Irene Cedillo PLT 271 103/ul Normal 150-450 [facility] Comment on above: Performed By: #### C K, CRP #### [facility] [address] [place] [address] Dr. Irene Cedillo RBC 4.76 106/ul Normal 4.20-5.40 [facility] Comment on above: Performed By: #### C K, CRP #### [facility] [address] [place] [address] Dr. Irene Cedillo WBC 6.9 103/ul Normal 4.0-11.0 [facility] Comment on above: Performed By: #### C K, CRP #### [facility] [address] [place] [address] Dr. Irene Cedillo CPKon 10-18-2022 CK [Catalytic activity/Vol] 57 U/L Normal 26-192 [facility] Comment on above: Performed By: #### T SH #### [facility] [address] [place] [address] Dr. Irene Cedillo CRPon 10-18-2022 CRP 0.8 mg/dL Normal <=1.0 [facility] Comment on above: Performed By: #### T SH #### [facility] [address] [place] [address] Dr. Irene Cedillo FREE T4on 10-18-2022 Free T4 [Mass/Vol] 1.07 ng/dL Normal 0.76-1.46 [facility] Comment on above: Performed By: #### C K, CRP #### [facility] [address] [place] [address] Dr. Irene Cedillo PROF 14(COMP METB)on 023 Albumin [Mass/Vol] 3.9 g/dL Normal 3.4-5.0 [facility] Comment on above: Performed By: #### T SH #### [facility] [address] [place] [address] Dr. Irene Cedillo Albumin/Globulin [Mass ratio] 1.1 {ratio} Normal [facility] Comment on above: Performed By: #### T SH #### [facility] [address] [place] [address] Dr. Irene Cedillo ALP [Catalytic activity/Vol] 90 U/L Normal 46-116 [facility] Comment on above: Performed By: #### T SH #### [facility] [address] [address] [address] Irene Cedillo ALT [Catalytic activity/Vol] 32 U/L Normal 14-59 [facility] Comment on above: Performed By: #### T SH #### [facility] [address] [address] [address] Irene Cedillo Anion gap [Moles/Vol] 13.8 mmol/L Normal [facility] Comment on above: Performed By: #### T SH #### [facility] [address] [address] [address] Irene Cedillo AST [Catalytic activity/Vol] 26 U/L Normal 15-37 [facility] Comment on above: Performed By: #### T SH #### [facility] [address] [place] [address] Dr. Irene Cedillo Bilirubin [Mass/Vol] 0.2 mg/dL Normal 0.2-1.0 [facility] Comment on above: Performed By: #### T SH #### [facility] [facility] [address] [place] [address] Dr. Irene Cedillo Calcium [Mass/Vol] 9.1 mg/dL Normal 8.5-10.1 [facility] Comment on above: Performed By: #### T SH #### [facility] [address] [place] [address] Dr. Irene Cedillo Chloride [Moles/Vol] 102 mmol/L Normal 98-107 [facility] Comment on above: Performed By: #### T SH #### [facility] [address] [place] [address] Dr. Irene Cedillo CO2 [Moles/Vol] 25.4 mmol/L Normal 21.0-32.0 [facility] Comment on above: Performed By: #### T SH #### [facility] [address] [place] [address] Dr. Irene Cedillo Creatinine [Mass/Vol] 0.64 mg/dL Normal 0.55-1.02 [facility] Comment on above: Performed By: #### T SH #### [facility] [address] [address] [address] Irene Cedillo EGFR-AF SAUDI ARABIAN >60 Normal >=60 [facility] Comment on above: Performed By: #### T SH #### [facility] [address] [address] [address] Irene Cedillo EGFR-NON AF SAUDI ARABIAN >60 Normal >=60 [facility] Comment on above: Performed By: #### T SH #### [facility] [address] [address] [address] Irene Cedillo Globulin (S) [Mass/Vol] 3.6 g/dL Normal [facility] Comment on above: Performed By: #### T SH #### [facility] [address] [place] [address] Dr. Irene Cedillo Glucose [Mass/Vol] 132 mg/dL Critically high 74-106 [facility] Comment on above: Performed By: #### T SH #### [facility] [address] [place] [address] Dr. Irene Cedillo Potassium [Moles/Vol] 4.2 mmol/L Normal 3.5-5.1 [facility] Comment on above: Performed By: #### T SH #### [facility] [address] [place] [address] Dr. Irene Cedillo Protein [Mass/Vol] 7.5 g/dL Normal 6.4-8.2 [facility] Comment on above: Performed By: #### T SH #### [facility] [address] [place] [address] Dr. Irene Cedillo Sodium [Moles/Vol] 137 mmol/L Normal 136-145 [facility] Comment on above: Performed By: #### T SH #### [facility] [address] [place] [address] Dr. Irene Cedillo Urea nitrogen [Mass/Vol] 19.0 mg/dL Critically high 7.0-18.0 [facility] Comment on above: Performed By: #### T SH #### [facility] [address] [place] [address] Dr. Irene Cedillo Urea nitrogen/Creatinine [Mass ratio] 29.7 mg/mg Normal [facility] Comment on above: Performed By: #### T SH #### [facility] [address] [place] [address] Dr. Irene Cedillo PROTIMEon 10-18-2022 INR Coag (PPP) [Relative time] {INR} Normal [facility] Comment on above: Performed By: #### C K, CRP #### [facility] [address] [place] [address] Dr. Irene Cedillo INR GUIDELINES SEE BELOW Normal [facility] Comment on above: Result Comment: JUAN RAMON RED INR: 2.0 - 3.0 CONDITIONS NOT LISTED BELOW 2.5 - 3.5 FOR PROSTHETIC HEART VALVE REPLACEMENT 2.5 - 3.5 RECURRENT THROMBOSIS Performed By: #### C K, CRP #### [facility] [address] [place] [address] Dr. Irene Cedillo PT Coag (PPP) [Time] 9.8 s Normal 9.0-11.6 [facility] Comment on above: Performed By: #### C K, CRP #### [facility] [address] [place] [address] Dr. Irene Cedillo PTTon 10-18-2022 aPTT Coag (Bld) [Time] 26.0 s Normal 22.3-36.2 [facility] Comment on above: Performed By: #### C K, CRP #### [facility] [address] [place] [address] Dr. Irene Cedillo SED RATE BOLIVARERGRENon 2022 SED RATE 42 mm/hr Critically high <=30 [facility] Comment on above: Performed By: #### S EDR #### [facility] [address] [place] [address] Dr. Irene Cedillo TSHon 10-18-2022 TSH 0.718 uIU/mL Normal 0.358-3.740 [facility] Comment on above: Performed By: #### T SH #### [facility] [address] [place] [address] Dr. Irene Cedillo UA RANDOM W/MICROSCOPICon BACTERIA NONE SEEN Normal NONE SEEN [facility] Comment on above: Performed By: #### C CPAB #### [facility] [address] [place] [address] Dr. Irene Cedillo Bilirubin Ql (U) Negative Normal NEGATIVE [facility] Comment on above: Performed By: #### C CPAB #### [facility] [address] [place] [address] Dr. Irene Cedillo CAST NONE SEEN Normal NONE SEEN [facility] Comment on above: Performed By: #### C CPAB #### [facility] [address] [place] [address] Dr. Irene Cedillo Clarity (U) CLEAR Normal CLEAR [facility] Comment on above: Performed By: #### C CPAB #### [facility] [address] [place] [address] Dr. Irene Cedillo Color (U) LT. YELLOW Normal YELLOW [facility] Comment on above: Performed By: #### C CPAB #### [facility] [address] [place] [address] Dr. Irene Cedillo Crystals LM Nom (Urine sed) NONE SEEN Normal NONE SEEN [facility] Comment on above: Performed By: #### C CPAB #### [facility] [address] [place] [address] Dr. Irene Cedillo Epithelial cells LM Ql (Urine sed) NONE SEEN Normal NONE SEEN /RARE [facility] Comment on above: Performed By: #### C CPAB #### [facility] [address] [place] [address] Dr. Irene Cedillo Glucose Ql (U) Negative Normal NEGATIVE [facility] Comment on above: Performed By: #### C CPAB #### [facility] [address] [place] [address] Dr. Irene Cedillo Hemoglobin Ql (U) Negative Normal NEGATIVE [facility] Comment on above: Performed By: #### C CPAB #### [facility] [address] [place] [address] Dr. Irene Cedillo Ketones Ql (U) Negative Normal NEGATIVE [facility] Comment on above: Performed By: #### C CPAB #### [facility] [address] [place] [address] Dr. Irene Cedillo LEUKOCYTES Negative Normal NEGATIVE [facility] Comment on above: Performed By: #### C CPAB #### [facility] [address] [place] [address] Dr. Irene Cedillo MUCOUS NONE SEEN Normal NONE SEEN [facility] Comment on above: Performed By: #### C CPAB #### [facility] [address] [place] [address] Dr. Irene Cedillo Nitrite Ql (U) Negative Normal NEGATIVE [facility] Comment on above: Performed By: #### C CPAB #### [facility] [address] [place] [address] Dr. Irene Cedillo pH (U) 5.5 [pH] Normal 5-9 [facility] Comment on above: Performed By: #### C CPAB #### [facility] [address] [place] [address] Dr. Irene Cedillo RBC 0-2 Normal 0-2 [facility] Comment on above: Performed By: #### C CPAB #### [facility] [address] [place] [address] Dr. Irene Cedillo SPEC GRAVITY 1.020 Normal 1.005-<=1.025 [facility] Comment on above: Performed By: #### C CPAB #### [facility] [address] [place] [address] Dr. Irene Cedillo UA PROTEIN Negative Normal NEGATIVE/ TRACE [facility] Comment on above: Performed By: #### C CPAB #### [facility] [address] [place] [address] Dr. Irene Cedillo Urobilinogen Qn (U) 0.2 {Junior'U}/dL Normal 0.2 - 1. 0 [facility] Comment on above: Performed By: #### C CPAB #### [facility] [address] [place] [address] Dr. Irene Cedillo WBC NONE SEEN Normal NONE SEEN [facility] Comment on above: Performed By: #### C CPAB #### [facility] [address] [address] [address] Irene Cedillo HLA B 27on 09-21-2022 HLA-B27 Negative Normal [facility] Comment on above: Result Comment: HLA- B*27 Negative B27 allele interpretation for all loci based on IMGT/HLA database version 3.44 This test was developed and its performance characteristics determined by [facility]. It has not been cleared or approved by the Food and Drug Administration. [facility] CLIA ID Number [id number] . This test was performed using PCR (Polymerase Chain Reaction)/SSOP (Sequence Specific Oligonucleotide Probes) technique. SBT (Sequence Based Typing) and/or SSP (Sequence Specific Primers) may be used as supplemental methods when necessary. Please contact [facility] Customer Service at if you have any questions. . Director of [facility] Dr Kris Salinas, PhD Performed By: #### C CPAB #### [facility] [address] [place] [address] Dr. Irene Cedillo ADRI by IFAon 09-15-2022 Antinuclear Antibodies, IFA Positive Abnormal [facility] Comment on above: Result Comment: Nega tive <1:80 Borderline 1:80 Positive >1:80 Performed By: #### S EDR #### [facility] [address] [place] [address] Dr. Irene Cedillo Centriole Pattern Normal [facility] Comment on above: Performed By: #### S EDR #### [facility] [address] [place] [address] Dr. Irene Cedillo Centromere Pattern Normal [facility] Comment on above: Performed By: #### S EDR #### [facility] [address] [address] [address] Irene Cedillo Homogeneous Pattern 1:160 Critically high [facility] Comment on above: Result Comment: ICAP nomenclature: AC-1 Performed By: #### S EDR #### [facility] [address] [place] [address] Dr. Irene Cedillo Midbody Pattern Normal [facility] Comment on above: Performed By: #### S EDR #### [facility] [address] [address] [address] Irene Cedillo Note: Comment Normal [facility] Comment on above: Result Comment: For more information about Hep-2 cell patterns use ANApatterns.Ok[employer].com, the official website for the International Consensus on Antinuclear Antibody (ADRI) Patterns (ICAP). A positive ADRI result may occur in healthy individuals (low titer) or be associated with a variety of diseases. See interpretation chart which is not all inclusive: . Pattern Antigen Detected Suggested Disease Association Homogeneous DNA(ds,ss), SLE - High titers Nucleosomes, Histones Drug-induced SLE Speckled Sm, COMMUNICATIONS DEPARTMENT HEAD, SCL-70, SLE,MCTD,PSS (diffuse form), SS-A/SS-B Sjogrens Nucleolar SCL-70, PM-1/SCL High titers Scleroderma, PM/DM Centromere Centromere PSS (limited form) w/Crest syndrome variable Nuclear Dot [id number] Primary Biliary Cirrhosis Nuclear GP210, Primary Biliary Cirrhosis Membrane margie A,B,C Performed By: #### S EDR #### [facility] [address] [place] [address] Dr. Irene Cedillo Nuclear Dot Pattern Normal [facility] Comment on above: Performed By: #### S EDR #### [facility] [address] [place] [address] Dr. Irene Cedillo Nuclear Membrane Pattern Normal [facility] Comment on above: Performed By: #### S EDR #### [facility] [address] [place] [address] Dr. Irene Cedillo Nucleolar Pattern Normal [facility] Comment on above: Performed By: #### S EDR #### [facility] [address] [place] [address] Dr. Irene Cedillo PCNA Pattern Normal [facility] Comment on above: Performed By: #### S EDR #### [facility] [address] [place] [address] Dr. Irene Cedillo Speckled Pattern Normal [facility] Comment on above: Performed By: #### S EDR #### [facility] [address] [place] [address] Dr. Irene Cedillo Spindle Apparatus Pattern Normal [facility] Comment on above: Performed By: #### S EDR #### [facility] [address] [place] [address] Dr. Irene Cedillo CYCLIC CITRULLINATED PEPTIDE AB (CCP)on 09-15-2022 CCP Antibodies IgG/IgA 0 units Normal 0-19 [facility] Comment on above: Result Comment: Nega tive <20 Weak positive 20 - 39 Moderate positive 40 - 59 Strong positive >59 Performed By: #### C CPAB #### [facility] [address] [place] [address] Dr. Irene Cedillo RHEUMATOID FACTORon 09-15-19 23 RA Latex Turbid. <10.0 Normal <14.0 [facility] Comment on above: Performed By: #### C K, CRP #### [facility] [address] [place] [address] Dr. Irene Cedillo CBC AUTO DIFFon 09-13-2022 BASO # 0.0 103/ul Normal 0.0-0.1 [facility] Comment on above: Performed By: #### H PYLORI #### [facility] [address] [place] [address] Dr. Irene Cedillo Basophils/100 WBC (Bld) 0.4 % Normal 0.2-2.0 [facility] Comment on above: Performed By: #### H PYLORI #### [facility] [address] [place] [address] Dr. Irene Cedillo EO # 0.3 103/ul Normal 0.0-0.7 [facility] Comment on above: Performed By: #### H PYLORI #### [facility] [address] [place] [address] Dr. Irene Cedillo Eosinophils/100 WBC (Bld) 4.4 % Normal 0.9-7.0 [facility] Comment on above: Performed By: #### H PYLORI #### [facility] [address] [place] [address] Dr. Irene Cedillo Erythrocyte distribution width (RBC) [Ratio] 13.2 % Normal 11.0-15.0 [facility] Comment on above: Performed By: #### H PYLORI #### [facility] [address] [place] [address] Dr. Irene Cedillo Hematocrit (Bld) [Volume fraction] 41.5 % Normal 36.0-48.0 [facility] Comment on above: Performed By: #### H PYLORI #### [facility] [address] [address] [address] Irene Cedillo Hemoglobin (Bld) [Mass/Vol] 14.0 g/dL Normal 12.0-16.0 [facility] Comment on above: Performed By: #### H PYLORI #### [facility] [address] [place] [address] Dr. Irene Cedillo IG # 0.02 10e3/ul Normal 0.00-0.03 [facility] Comment on above: Performed By: #### H PYLORI #### [facility] [address] [place] [address] Dr. Irene Cedillo IG % 0.3 % Normal 0.0-0.5 [facility] Comment on above: Performed By: #### H PYLORI #### [facility] [address] [place] [address] Dr. Irene Cedillo LYMPH # 2.5 103/ul Normal 1.2-3.8 [facility] Comment on above: Performed By: #### H PYLORI #### [facility] [address] [place] [address] Dr. Irene Cedillo Lymphocytes/100 WBC (Bld) 34.4 % Normal 20.5-60.0 [facility] Comment on above: Performed By: #### H PYLORI #### [facility] [address] [place] [address] Dr. Irene Cedillo MANUAL DIFF REQ NO Normal [facility] Comment on above: Performed By: #### H PYLORI #### [facility] [address] [place] [address] Dr. Irene Cedillo MCH (RBC) [Entitic mass] 30.0 pg Normal 26.7-34.0 [facility] Comment on above: Performed By: #### H PYLORI #### [facility] [address] [place] [address] Dr. Irene Cedillo MCHC (RBC) [Mass/Vol] 33.7 g/dL Normal 29.9-35.2 [facility] Comment on above: Performed By: #### H PYLORI #### [facility] [address] [address] [address] Irene Cedillo MCV (RBC) [Entitic vol] 88.9 fL Normal 81.0-99.0 [facility] Comment on above: Performed By: #### H PYLORI #### [facility] [address] [address] [address] Irene Cedillo MONO # 0.4 103/ul Normal 0.3-0.8 [facility] Comment on above: Performed By: #### H PYLORI #### [facility] [address] [address] [address] Irene Cedillo Monocytes/100 WBC (Bld) 5.6 % Normal 1.7-12.0 [facility] Comment on above: Performed By: #### H PYLORI #### [facility] [address] [place] [address] Dr. Irene Cedillo NEUT # 4.0 103/ul Normal 1.4-6.5 [facility] Comment on above: Performed By: #### H PYLORI #### [facility] [address] [place] [address] Dr. Irene Cedillo Neutrophils/100 WBC (Bld) 54.9 % Normal 43.0-75.0 [facility] Comment on above: Performed By: #### H PYLORI #### [facility] [address] [address] [address] Irene Cedillo Platelet mean volume (Bld) [Entitic vol] 9.6 fL Normal 9.5-13.5 [facility] Comment on above: Performed By: #### H PYLORI #### [facility] [address] [address] [address] Irene Cedillo PLT 314 103/ul Normal 150-450 [facility] Comment on above: Performed By: #### H PYLORI #### [facility] [address] [address] [address] Irene Cedillo RBC 4.67 106/ul Normal 4.20-5.40 [facility] Comment on above: Performed By: #### H PYLORI #### [facility] [address] [address] [address] Irene Cedillo WBC 7.3 103/ul Normal 4.0-11.0 [facility] Comment on above: Performed By: #### H PYLORI #### [facility] [address] [place] [address] Dr. Irene Cedillo CRPon 09-13-2022 CRP 0.3 mg/dL Normal <=1.0 [facility] Comment on above: Performed By: #### C K, CRP #### [facility] [address] [place] [address] Dr. Irene Cedillo RENAL FUNCTION PANELon 09-13 Albumin [Mass/Vol] 3.7 g/dL Normal 3.4-5.0 [facility] Comment on above: Performed By: #### R ENAL #### [facility] [address] [place] [address] Dr. Irene Cedillo Calcium [Mass/Vol] 9.3 mg/dL Normal 8.5-10.1 [facility] Comment on above: Performed By: #### R ENAL #### [facility] [address] [place] [address] Dr. Irene Cedillo Chloride [Moles/Vol] 105 mmol/L Normal 98-107 [facility] Comment on above: Performed By: #### R ENAL #### [facility] [address] [place] [address] Dr. Irene Cedillo CO2 [Moles/Vol] 30.5 mmol/L Normal 21.0-32.0 [facility] Comment on above: Performed By: #### R ENAL #### [facility] [address] [place] [address] Dr. Irene Cedillo Creatinine [Mass/Vol] 0.64 mg/dL Normal 0.55-1.02 [facility] Comment on above: Performed By: #### R ENAL #### [facility] [address] [place] [address] Dr. Irene Cedillo EGFR-AF SAUDI ARABIAN >60 Normal >=60 [facility] Comment on above: Performed By: #### R ENAL #### [facility] [address] [address] [address] Irene Cedillo EGFR-NON AF SAUDI ARABIAN >60 Normal >=60 [facility] Comment on above: Performed By: #### R ENAL #### [facility] [address] [address] [address] Irene Cedillo Glucose [Mass/Vol] 130 mg/dL Critically high 74-106 [facility] Comment on above: Performed By: #### R ENAL #### [facility] [address] [address] [address] Irene Cedillo Phosphate [Mass/Vol] 3.9 mg/dL Normal 2.6-4.7 [facility] Comment on above: Performed By: #### R ENAL #### [facility] [address] [address] [address] Irene Cedillo Potassium [Moles/Vol] 4.0 mmol/L Normal 3.5-5.1 [facility] Comment on above: Performed By: #### R ENAL #### [facility] [address] [address] [address] Irene Cedillo Sodium [Moles/Vol] 143 mmol/L Normal 136-145 [facility] Comment on above: Performed By: #### R ENAL #### [facility] [address] [address] [address] Irene Cedillo Urea nitrogen [Mass/Vol] 16.0 mg/dL Normal 7.0-18.0 [facility] Comment on above: Performed By: #### R ENAL #### [facility] [address] [address] [address] Irene Cedillo [facility] 20 mm/hr Normal <=30 [facility] Comment on above: Performed By: #### C K, CRP #### [facility] [address] [address] [address] Irene Cedillo MRI ANKLE LT WO [...] by: TONY DICKINSON Date: 2022-08-26 09:36 Normal [facility] MAMM SCREEN 3D RIAN CADon 08-08-2022 MAMM SCREEN 3D RIAN CAD Patient: EMILY MACIAS Exam Date: 08/08/2022 : 1960 Gender:F Ordering : DR. KENDRA MCKINLEY M.D. Admission #: [id number] Family : DR NETTA MONTOYA M.D. Order #: [id number] CLICK HERE TO VIEW EXAM RADIOLOGY REPORT PROCEDURE: MAMMOGRAM SCREENING 3D BILATERAL CAD COMPARISON: MG MAMM SCREEN 3D RIAN CAD, 07/19/2021. MAMM SCREEN RIAN W CAD, 07/05/2020. INDICATIONS: Screening mammography Calculator Name NCI Breast Cancer Risk Assessment Tool 5 Year Breast Cancer Risk 2.90% Lifetime Breast Cancer Risk 12.80% Personal Breast Cancer No Personal Ovarian Cancer No Treatments None Family Cancers Father with skin cancer at age 65; Mother with breast cancer at age 79. LOCATION: [facility] BREAST COMPOSITION: Heterogeneously dense,which may obscure small [...] M.D. on 08/09/2022 at 15:10 Normal [facility] GLYCOHEMOGLOBIN A1Con 2021 ADA RECOMMENDATION SEE BELOW Normal [facility] Comment on above: Result Comment: ADA RECOMMENDED LIMIT 4.0 - 6.0 ADA THERAPEUTIC TARGET < 7.0 ACTION SUGGESTED > 7.0 Performed By: #### C CPAB #### [facility] [address] [address] [address] Irene Cedillo Glucose [Mass/Vol] 128 mg/dL Normal [facility] Comment on above: Performed By: #### C CPAB #### [facility] [address] [address] [address] Irene Cedillo HbA1c (Bld) [Mass fraction] 6.1 % Normal 4.5-6.2 [facility] Comment on above: Performed By: #### C CPAB #### [facility] [address] [address] [address] Irene Cedillo XR FOOT RIAN MIN [...] PELON ALEXANDRE Date: 2022-07-06 06:21 Normal The [facility] OVA AND PARASITE EXAMINATION on 04-13-2022 Ova + Parasite Exam Final report Normal [facility] Comment on above: Result Comment: Thes e results were obtained using wet preparation(s) and trichrome stained smear. This test does not include testing for Cryptosporidium parvum, Cyclospora, or Microsporidia. Performed By: #### S EDR #### [facility] [address] [address] [address] Irene Cedillo Result 1 Comment Normal [facility] Comment on above: Result Comment: No o va, cysts, or parasites seen. . One negative specimen does not rule out the possibility of a parasitic infection. Performed By: #### S EDR #### [facility] [address] [address] [address] Irene Cedillo CALPROTECTIN, FECALon 2021 Calprotectin, Fecal 36 ug/g Normal 0-120 [facility] Comment on above: Result Comment: Conc entration Interpretation Follow-Up <16 - 50 ug/g Normal None >50 -120 ug/g Borderline Re-evaluate in 4-6 weeks >120 ug/g Abnormal Repeat as clinically indicated Performed By: #### C K, CRP #### [facility] [address] [address] [address] Irene Cedillo HELICOBACTER PYLORI AG STOOL on 04-12-2022 H. pylori Stool Ag, EIA Negative Normal Negative [facility] Comment on above: Performed By: #### H PYLORI #### [facility] [address] [address] [address] Irene Cedillo LACTOFERRIN FECAL QUANTon Lactoferrin, Fecal, Quant. <1.00 Normal 0.00-7.24 [facility] Comment on above: Result Comment: Re sults [...] (IBS). Performed By: #### T SH #### [facility] [address] [place] [address] Dr. Irene Cedillo C. DIFF PCRon 04-08-2022 C. DIFFICILE PCR Negative Normal NEGATIVE [facility] Comment on above: Performed By: #### S EDR #### [facility] [address] [place] [address] Dr. Irene Cedillo GI PANEL (PCR)on 04-08-2022 Adenovirus F 40/41 Not detected Normal NOT DETECTED [facility] Comment on above: Performed By: #### S EDR #### [facility] [address] [place] [address] Dr. Irene Cedillo Astrovirus Not detected Normal NOT DETECTED [facility] Comment on above: Performed By: #### S EDR #### [facility] [address] [place] [address] Dr. Irene Cedillo C. Diff toxin A/B Not detected Normal NOT DETECTED [facility] Comment on above: Performed By: #### S EDR #### [facility] [address] [place] [address] Dr. Irene Cedillo Campylobacter Not detected Normal NOT DETECTED [facility] Comment on above: Performed By: #### S EDR #### [facility] [address] [place] [address] Dr. Irene Cedillo Cryptosporidium Not detected Normal NOT DETECTED [facility] Comment on above: Performed By: #### S EDR #### [facility] [address] [place] [address] Dr. Irene Cedillo Cyclos. Cayetanensis Not detected Normal NOT DETECTED [facility] Comment on above: Performed By: #### S EDR #### [facility] [address] [place] [address] Dr. Irene Cedillo E. Coli O157 Not Applicable Normal Not Applicable [facility] Comment on above: Performed By: #### S EDR #### [facility] [address] [place] [address] Dr. Irene Cedillo E. histolytica Not detected Normal NOT DETECTED The [facility] Comment on above: Performed By: #### S EDR #### [facility] [address] [place] [address] Dr. Irene Cedillo EAEC Not detected Normal NOT DETECTED [facility] Comment on above: Performed By: #### S EDR #### [facility] [address] [place] [address] Dr. Irene Cedillo EIEC Not detected Normal NOT DETECTED [facility] Comment on above: Performed By: #### S EDR #### [facility] [address] [place] [address] Dr. Irene Cedillo EPEC Not detected Normal NOT DETECTED [facility] Comment on above: Performed By: #### S EDR #### [facility] [address] [place] [address] Dr. Irene Cedillo ETEC Not detected Normal NOT DETECTED [facility] Comment on above: Performed By: #### S EDR #### [facility] [address] [place] [address] Dr. Irene Cedillo G. Lamblia Not detected Normal NOT DETECTED [facility] Comment on above: Performed By: #### S EDR #### [facility] [address] [place] [address] Dr. Irene ROSSANEL CONTROLS PASSED Normal [facility] Comment on above: Performed By: #### S EDR #### [facility] [address] [place] [address] Dr. Irene ROSSNL MITCHEL HEADER GI PANEL BACTERIA Normal [facility] Comment on above: Performed By: #### S EDR #### [facility] [address] [place] [address] Dr. Irene CALDERA ECOLI GI PANEL DIARRHEAGEN IC E.COLI / SHIGELLA Normal [facility] Comment on above: Performed By: #### S EDR #### [facility] [address] [address] [address] Irene CALDERA INFO SEE BELOW Normal [facility] Comment on above: Result Comment: EAEC - Enteroaggregative E. Coli EPEC- Enteropathogenic E. Coli ETEC- Enterotoxigenic E. Coli lt/st STEC- Shigella-like toxin-producing E. Coli stx1/stx2 EIEC- Shigella/Enteroinvasive E. Coli Performed By: #### S EDR #### [facility] [address] [place] [address] Dr. Irene CALDERA PARASITES GI PANEL PARASITES Normal [facility] Comment on above: Performed By: #### S EDR #### [facility] [address] [place] [address] Dr. Irene CALDERA VIRUS GI PANEL VIRUSES Normal [facility] Comment on above: Performed By: #### S EDR #### [facility] [address] [address] [address] Irene Cedillo Norovirus GI/GII Not detected Normal NOT DETECTED [facility] Comment on above: Performed By: #### S EDR #### [facility] [address] [place] [address] Dr. Irene Cedillo P. Shigelloides Not detected Normal NOT DETECTED [facility] Comment on above: Performed By: #### S EDR #### [facility] [address] [place] [address] Dr. Irene Cedillo Rotavirus A Not detected Normal NOT DETECTED The [facility] Comment on above: Performed By: #### S EDR #### [facility] [address] [place] [address] Dr. Irene Cedillo Salmonella Not detected Normal NOT DETECTED [facility] Comment on above: Performed By: #### S EDR #### [facility] [address] [place] [address] Dr. rIene Cedillo Sapovirus Not detected Normal NOT DETECTED [facility] Comment on above: Performed By: #### S EDR #### [facility] [address] [address] [address] Irene Cedillo STEC Not detected Normal NOT DETECTED [facility] Comment on above: Performed By: #### S EDR #### [facility] [address] [place] [address] Dr. Irene Cedillo Vibrio Not detected Normal NOT DETECTED [facility] Comment on above: Performed By: #### S EDR #### [facility] [address] [address] [address] Irene Cedillo Vibrio Cholera Not detected Normal NOT DETECTED [facility] Comment on above: Performed By: #### S EDR #### [facility] [address] [place] [address] Dr. Irene Cedillo Y. Enterocolitica Not detected Normal NOT DETECTED [facility] Comment on above: Performed By: #### S EDR #### [facility] [address] [place] [address] Dr. Irene Cedillo BUNon 03-27-2022 Urea nitrogen [Mass/Vol] 20.0 mg/dL Critically high 7.0-18.0 [facility] Comment on above: Performed By: #### C K, CRP #### [facility] [address] [place] [address] Dr. Irene Cedillo CREATININEon 03-27-2022 Creatinine [Mass/Vol] 0.75 mg/dL Normal 0.55-1.02 [facility] Comment on above: Performed By: #### C K, CRP #### [facility] [address] [place] [address] Dr. Irene Cedillo EGFR-AF SAUDI ARABIAN >60 Normal >=60 [facility] Comment on above: Performed By: #### C K, CRP #### [facility] [address] [place] [address] Dr. Irene Cedillo EGFR-NON AF SAUDI ARABIAN >60 Normal >=60 [facility] Comment on above: Performed By: #### C K, CRP #### [facility] [id number] Irene Cedillo CT ABD/PELV W CONon [...] and/or use of iterative reconstruction technique. Findings: Doctor Of Audiology: No acute abnormalities are seen. Liver/Biliary System: [...] CIELO GARCIA Date: 2022-03-27 21:37 Normal [facility] POINT OF CARE GLUCOSEon 03-10 Glucose [Mass/Vol] 173 mg/dL Critically high 74-106 T he [facility] Comment on above: Performed By: #### C CPAB #### [facility] [address] [place] [address] Dr. Irene Cedillo FSHon 02-25-2022 FSH 46.6 mIU/mL Normal [facility] Comment on above: Result Comment: Adul t Female: Follicular phase 3.5 - 12.5 Ovulation phase 4.7 - 21.5 Luteal phase 1.7 - 7.7 Postmenopausal 25.8 - 134.8 Performed By: #### C K, CRP #### [facility] [address] [place] [address] Dr. Irene Cedillo LUTEINIZING HORMONE (LH)on 0 02-25-2022 LH 33.3 mIU/mL Normal [facility] Comment on above: Result Comment: Adul t Female: Follicular phase 2.4 - 12.6 Ovulation phase 14.0 - 95.6 Luteal phase 1.0 - 11.4 Postmenopausal 7.7 - 58.5 Performed By: #### H PYLORI #### [facility] [address] [place] [address] Dr. Irene Cedillo TESTOSTERONE, TOTALon 2021 Testosterone [Mass/Vol] 6 ng/dL Normal 3-67 [facility] Comment on above: Performed By: #### H PYLORI #### [facility] [address] [place] [address] Dr. Irene Cedillo THYROID PEROXIDASE ABon 06- Thyroid Peroxidase (TPO) Ab <8 Normal 0-34 [facility] Comment on above: Performed By: #### C K, CRP #### [facility] [address] [place] [address] Dr. Irene Cedillo FREE T3on 02-24-2022 FREE T3 2.47 pg/mlL Normal 2.18-3.98 [facility] Comment on above: Performed By: #### S EDR #### [facility] [address] [place] [address] Dr. Irene Cedillo LYME DISEASE AB EIA W REFLEX on 01-31-2022 Lyme Total Antibody,EIA Negative Normal Negative [facility] Comment on above: Result Comment: Lyme Antibody Negative No laboratory evidence of infection with B. burgdorferi (Lyme disease). Negative results may occur in patients recently infected (greater than or equal to 14 days) with B. burgdorferi. If recent infection is suspected, repeat testing on a new sample collected in 7 to 14 days is recommended. Performed By: #### T SH #### [facility] [address] [place] [address] Dr. Irene Cedillo CPKon 01-30-2022 CK [Catalytic activity/Vol] 76 U/L Normal 26-192 [facility] Comment on above: Performed By: #### C K, CRP #### [facility] [address] [place] [address] Dr. Irene Cedillo CRPon 01-30-2022 CRP 0.4 mg/dL Normal <=1.0 [facility] Comment on above: Performed By: #### C K, CRP #### [facility] [address] [place] [address] Dr. Irene Cedillo SED RATE WESTERGRENon 2021 SED RATE 8 mm/hr Normal <=30 [facility] Comment on above: Performed By: #### H PYLORI #### [facility] [address] [place] [address] Dr. Irene Cedillo C REACTIVE PROTEINon 021 CRP [Mass/Vol] 9.3 mg/L High 0.0-7.0 [facility] Comment on above: Performed By: #### 6 1405 #### [address] KNEE LEFT 3 [facility] 09-06-2021 KNEE LEFT 3 S [facility] Department of Radiology [address] [place] [address] ======== Patient Name: EMILY MACIAS : 1960 Sex: F Age: Race: White Pt. Location: 84 Patient Status: Ordered Date: 09/06/2021 1:35:00 PM Completed Date: 09/06/2021 01:56 PM Requesting Provider: KIARA WILLETT Attending Provider: Report Copy To: Signs & Symptoms: M25.562 Pain in left knee I10 History: [place] Comments: Evaluate Exam: KNEE LEFT 3 [facility] ======== KNEE LEFT 3 [facility] 09/06/2021 1:56 PM CLINICAL INDICATIONS: M25.562 [...] above Electronically signed: Olga Murray. Transcribed by: [email or web address], User Resident: Electronically Signed by: OLGA MURRAY @ 09/06/2021 03:09 PM Normal [facility] Comment on above: Order Comment: Evalu ate KNEE RIGHT 3 [facility] KNEE RIGHT 3 [facility] Department of Radiology [address] [place] [id number] ======== Patient Name: EMILY MACIAS : 1960 Sex: F Age: Race: White Pt. Location: 84 Patient Status: Ordered Date: 09/06/2021 1:35:00 PM Completed Date: 09/06/2021 01:56 PM Requesting Provider: KIARA WILLETT Attending Provider: Report Copy To: Signs & Symptoms: M25.561 Pain in right knee I10 History: [place] Comments: Evaluate Exam: KNEE RIGHT 3 [facility] [...] above Electronically signed: Olga Murray. Transcribed by: [email or web address], User Resident: Electronically Signed by: OLGA MURRAY @ 09/06/2021 03:08 PM Normal [facility] Comment on above: Order Comment: Evalu ate SEDIMENTATION RATEon 021 SED RATE 7 mm/hr Normal 0-20 [facility] Comment on above: Performed By: #### 5 [id number] #### [address] [address] [place] [address], [facility] Vital Signs Date Time Vital Sign Value Performing Clinician Facility 12-26-2024 10:09040 Body height 165.1 cm [facility] 12-26-2024 10:090400 Body mass index (BMI) [Ratio] 32.7 kg/m2 [facility] 12-26-2024 10:09-0400 Body weight 89.2 kg [facility] 12-26-2024 10:09-0400 Diastolic blood pressure 70 mm[Hg] [facility] 12-26-2024 10:09-0400 Systolic blood pressure 112 mm[Hg] [facility] 12-10-2024 08:55-0400 Body height 165.1 cm Netta Montoya MD Work Phone: [facility] 12-10-2024 08:55-0400 Body mass index (BMI) [Ratio] 32.5 kg/m2 Netta Montoya MD Work Phone: [facility] 12-10-2024 08:55-0400 Body temperature 98.2 [degF] Netta Montoya MD Work Phone: [facility] 12-10-2024 08:55-0400 Body weight 88.9 kg Netta Montoya MD Work Phone: [facility] 12-10-2024 08:55-0400 Diastolic blood pressure 68 mm[Hg] Netta Montoya MD Work Phone: [facility] 12-10-2024 08:55-0400 Heart rate 88 /min Netta Montoya MD Work Phone: [facility] 12-10-2024 08:55-0400 Systolic blood pressure 103 mm[Hg] Netta Montoya MD Work Phone: [facility] 10-21-2024 09:08-0500 Body height 165.1 cm Netta Montoya MD Work Phone: [facility] 10-21-2024 09:08-0500 Body mass index (BMI) [Ratio] 31.9 kg/m2 Netta Montoya MD Work Phone: [facility] 10-21-2024 09:08-0500 Body weight 87.08 kg Netta Montoya MD Work Phone: [facility] 10-21-2024 09:08-0500 Diastolic blood pressure 64 mm[Hg] Netta Montoya MD Work Phone: [facility] 10-21-2024 09:08-0500 Heart rate 90 /min Netta Montoya MD Work Phone: [facility] 10-21-2024 09:08-0500 SaO2% (BldA) [Mass fraction] 97 % Netta Montoya MD Work Phone: [facility] 10-21-2024 09:08-0500 Systolic blood pressure 107 mm[Hg] Netta Montoya MD Work Phone: [phone] [place] [address] 09-30-2024 13:53-0500 Body height 160.02 cm Netta Montoya MD Work Phone: [phone] [place] [address] 09-30-2024 13:53-0500 Body mass index (BMI) [Ratio] 33.1 kg/m2 Netta Montoya MD Work Phone: [phone] [place] [address] 09-30-2024 13:53-0500 Body weight 84.82 kg Netta Montoya MD Work Phone: [facility] 09-30-2024 13:53-0500 Diastolic blood pressure 70 mm[Hg] Netta Montoya MD Work Phone: [facility] 09-30-2024 13:53-0500 Heart rate 85 /min Netta Montoya MD Work Phone: [facility] 09-30-2024 13:53-0500 Systolic blood pressure 101 mm[Hg] Netta Montoya MD Work Phone: [facility] 08-29-2024 11:03-0500 Diastolic blood pressure 68 mm[Hg] Netta Montoya MD Work Phone: [facility] 08-29-2024 11:03-0500 Heart rate 89 /min Netta Montoya MD Work Phone: [facility] 08-29-2024 11:03-0500 Systolic blood pressure 115 mm[Hg] Netta Montoya MD Work Phone: [facility] 07-29-2024 09:33-0500 Body height 160.02 cm Netta Montoya MD Work Phone: [facility] 07-29-2024 09:33-0500 Body mass index (BMI) [Ratio] 34.3 kg/m2 Netta Montoya MD Work Phone: [facility] 07-29-2024 09:33-0500 Body weight 87.99 kg Netta Montoya MD Work Phone: [facility] 07-29-2024 09:33-0500 Diastolic blood pressure 69 mm[Hg] Netta Montoya MD Work Phone: [facility] 07-29-2024 09:33-0500 Heart rate 75 /min Netta Montoya MD Work Phone: [facility] 07-29-2024 09:33-0500 Systolic blood pressure 101 mm[Hg] Netta Montoya MD Work Phone: [facility] 07-17-2024 13:59-0500 Body height 160.02 cm Netta Montoya MD Work Phone: [facility] 07-17-2024 13:59-0500 Body mass index (BMI) [Ratio] 34.5 kg/m2 Netta Montoya MD Work Phone: [facility] 07-17-2024 13:59-0500 Body weight 88.45 kg Netta Montoya MD Work Phone: [facility] 07-17-2024 13:59-0500 Diastolic blood pressure 69 mm[Hg] Netta Montoya MD Work Phone: [facility] 07-17-2024 13:59-0500 Heart rate 83 /min Netta Montoya MD Work Phone: [facility] 07-17-2024 13:59-0500 SaO2% (BldA) [Mass fraction] 93 % Netta Montoya MD Work Phone: [facility] 07-17-2024 13:59-0500 Systolic blood pressure 117 mm[Hg] Netta Montoya MD Work Phone: [facility] 02-21-2024 13:19-0400 Body height 165.1 cm Sagar Krause MD Work Phone: [employer] 02-21-2024 13:19-0400 Body mass index (BMI) [Ratio] 31.78 kg/m2 Sagar Krause MD Work Phone: [facility] 02-21-2024 13:19-0400 Body temperature 97.11 [degF] Sagar Krause MD Work Phone: [facility] 02-21-2024 13:19-0400 Body weight 86.64 kg Sagar Krause MD Work Phone: [facility] 12-26-2023 13:54-0400 Body height 165.1 cm Radha Brandee GENERAL HANDLING SUPERVISOR-STAFF REGISTERED NURSE Work Phone: [facility] 12-26-2023 13:54-0400 Body mass index (BMI) [Ratio] 33.45 kg/m2 Radha Brandee GENERAL HANDLING SUPERVISOR-STAFF REGISTERED NURSE Work Phone: [facility] 12-26-2023 13:54-0400 Body weight 91.17 kg Radha Brandee GENERAL HANDLING SUPERVISOR-STAFF REGISTERED NURSE Work Phone: [facility] 08-13-2023 09:30-0500 Body height 161.93 cm Netta Montoya Other [employer] Other 08-13-2023 09:30-0500 Body mass index (BMI) [Ratio] 34.46 kg/m2 Netta Montoya Other [employer] Other 08-13-2023 09:30-0500 Body weight 90.36 kg Netta Montoya Other [employer] Other 08-13-2023 09:30-0500 Diastolic blood pressure 70 mm[Hg] Netta Montoya Other [employer] Other 08-13-2023 09:30-0500 Systolic blood pressure 110 mm[Hg] Netta Lindsay Other [employer] Other 08-09-2023 14:48-0500 Body height 165.1 cm Sagar Krause MD Work Phone: [facility] 08-09-2023 14:48-0500 Body mass index (BMI) [Ratio] 33.58 kg/m2 Sagar Krause MD Work Phone: [facility] 08-09-2023 14:48-0500 Body weight 91.54 kg Sagar Krause MD Work Phone: [facility] 04-24-2023 13:30-0400 Body height 161.93 cm Siva Ron Other [employer] Other 04-24-2023 13:30-0400 Body mass index (BMI) [Ratio] 32.52 kg/m2 Siva Ron Other [employer] Other 04-24-2023 13:30-0400 Body weight 85.28 kg Siva Ron Other [employer] Other 04-24-2023 13:30-0400 Diastolic blood pressure 70 mm[Hg] Siva Ron Other [employer] Other 04-24-2023 13:30-0400 Systolic blood pressure 126 mm[Hg] Siva Ron Other [employer] Other 02-22-2023 15:15-0400 Body height 165.1 cm Radha Irvin APRN-STAFF REGISTERED NURSE Work Phone: [facility] 02-22-2023 15:15-0400 Body mass index (BMI) [Ratio] 31.51 kg/m2 Radha Irvin APRN-STAFF REGISTERED NURSE Work Phone: [facility] 02-22-2023 15:15-0400 Body temperature 98.01 [degF] Radha Irvin APRN-STAFF REGISTERED NURSE Work Phone: [facility] 02-22-2023 15:15-0400 Body weight 85.9 kg Radha Irvin APRN-STAFF REGISTERED NURSE Work Phone: [facility] 01-09-2023 09:30-0400 Body height 161.93 cm Netta Montoya Other [employer] Other 01-09-2023 09:30-0400 Body mass index (BMI) [Ratio] 33.04 kg/m2 Netta Montoya Other [employer] Other 01-09-2023 09:30-0400 Body weight 86.64 kg Netta Montoya Other [employer] Other 01-09-2023 09:30-0400 Diastolic blood pressure 60 mm[Hg] Netta Montoya Other [employer] Other 01-09-2023 09:30-0400 SaO2% (BldA) [Mass fraction] 97 % Netta Montoya Other [employer] Other 01-09-2023 09:30-0400 Systolic blood pressure 112 mm[Hg] Netta Montoya Other [employer] Other 01-01-2023 15:45-0400 Body height 161.93 cm Siva Ron Other [employer] Other 01-01-2023 15:45-0400 Body mass index (BMI) [Ratio] 34.08 kg/m2 Siva Ron Other [employer] Other 01-01-2023 15:45-0400 Body weight 89.36 kg Siva Ron Other [employer] Other 01-01-2023 15:45-0400 Diastolic blood pressure 71 mm[Hg] Siva Ron Other [employer] Other 01-01-2023 15:45-0400 Systolic blood pressure 116 mm[Hg] Siva Ron Other [employer] Other 11-30-2022 13:58-0400 Body height 165.1 cm Sagar Krause MD Work Phone: [facility] 11-30-2022 13:58-0400 Body mass index (BMI) [Ratio] 32.12 kg/m2 Sagar Krause MD Work Phone: [facility] 11-30-2022 13:58-0400 Body weight 87.54 kg Sagar Krause MD Work Phone: [facility] 10-10-2022 14:30-0500 Body height 161.93 cm Netta Montoya Other [employer] Other 10-10-2022 14:30-0500 Body mass index (BMI) [Ratio] 34.08 kg/m2 Netta Montoya Other [employer] Other 10-10-2022 14:30-0500 Body weight 89.36 kg Netta Montoya Other [employer] Other 10-10-2022 14:30-0500 Diastolic blood pressure 70 mm[Hg] Netta Montoya Other [employer] Other 10-10-2022 14:30-0500 Systolic blood pressure 108 mm[Hg] Netta Montoya Other [employer] Other 09-13-2022 16:30-0500 Body height 161.93 cm Netta Montoya Other [employer] Other 09-13-2022 16:30-0500 Body mass index (BMI) [Ratio] 33.21 kg/m2 Netta Montoya Other [employer] Other 09-13-2022 16:30-0500 Body weight 87.09 kg Netta Montoya Other [employer] Other 09-13-2022 16:30-0500 Diastolic blood pressure 62 mm[Hg] Netta Montoya Other [employer] Other 09-13-2022 16:30-0500 SaO2% (BldA) [Mass fraction] 97 % Netta Montoya Other [employer] Other 09-13-2022 16:30-0500 Systolic blood pressure 108 mm[Hg] Netta Montoya Other [employer] Other Encounters Encounter Date Encounter Type Care Provider Facility Start: 02-09-2025 End: 02-09-2025 ambulatory Chandra Edouard MD [facility]: [facility] Start: 01-05-2025 End: 01-05-2025 ambulatory Chandra Edouard MD Facility: [facility] Start: 12-26-2024 End: 12-26-2024 ambulatory Jb Grady Facility:[facility] Start: 12-26-2024 End: 12-26-2024 Patient encounter procedure [facility] [facility] Work Phone: Start: 12-22-2024 End: 12-22-2024 ambulatory Chandra Edouard MD Facility: [facility] Start: 12-10-2024 End: 12-10-2024 ambulatory Netta Montoya MD Work Phone: [facility] Work Phone: Start: 12-10-2024 End: 12-10-2024 Patient encounter procedure Netta Montoya MD Work Phone: [facility] Work Phone: Start: 11-10-2024 Non-patient / Non-visit Netta Mnotoya MD Work Phone: [facility] Work Phone: Start: 10-21-2024 End: 10-21-2024 ambulatory Netta Montoya MD Work Phone: [facility] Work Phone: Start: 10-21-2024 End: 10-21-2024 Patient encounter procedure Netta Montoya MD Work Phone: [facility] Work Phone: Start: 09-30-2024 End: 09-30-2024 Patient encounter procedure Netta Montoya MD Work Phone: [facility] [place] Work Phone: Start: 09-30-2024 End: 09-30-2024 ambulatory Netta Montoya MD Work Phone: [facility] Work Phone: Start: 09-30-2024 End: 09-30-2024 Patient encounter procedure Netta Montoya MD Work Phone: [facility] Work Phone: Start: 09-19-2024 End: 09-19-2024 ambulatory HANY [facility] Start: 09-16-2024 ambulatory NARENDPRERNA HUNTERLAALBERTINA [facility] Start: 09-08-2024 End: 09-08-2024 ambulatory Chandra Edouard MD Facility:[facility] Start: 08-29-2024 End: 08-29-2024 Patient encounter procedure Netta Montoya MD Work Phone: [facility] Work Phone: Start: 08-29-2024 End: 08-29-2024 ambulatory Jb Grady Facility:[facility] Start: 08-29-2024 End: 08-29-2024 Patient encounter procedure Netta Montoya MD Work Phone: [facility] Work Phone: Start: 08-18-2024 End: 08-18-2024 ambulatory Chandra Edouard MD Facility:[facility] Start: 07-30-2024 ambulatory HILARY [facility] Start: 07-29-2024 End: 07-29-2024 Patient encounter procedure Netta Montoya MD Work Phone: [facility] Work Phone: Start: 07-17-2024 End: 07-17-2024 Patient encounter procedure Netta Montoya MD Work Phone: [facility] Work Phone: Start: 05-13-2024 ambulatory [facility] Start: 04-14-2024 End: 05-11-2024 ambulatory [facility] Start: 02-21-2024 End: 02-21-2024 Office outpatient visit 25 minutes Sagar Krause MD Work Phone: [facility] Comment on above: Hx of total knee art hroplasty, left (Primary Dx); Pain in prosthetic joint, subsequent encounter Start: 02-21-2024 End: 02-21-2024 Subsequent hospital visit by physician Sagar Krause MD Work Phone: [facility] Start: 02-21-2024 ambulatory NETTA MONTOYA [facility] Start: 01-09-2024 End: 02-09-2024 ambulatory [facility] Start: 12-26-2023 End: 01-09-2024 ambulatory RADHA BRANDEE [facility] Start: 12-26-2023 End: 12-26-2023 Office outpatient visit 15 minutes Radha Irvin APRN-STAFF REGISTERED NURSE Work Phone: [facility] Comment on above: Hx of total knee art hroplasty, left (Primary Dx) Start: 12-26-2023 End: 12-26-2023 Subsequent hospital visit by physician Radha Irvin APRN-STAFF REGISTERED NURSE Work Phone: [facility] Start: 12-26-2023 ambulatory [facility] Start: 10-22-2023 End: 10-22-2023 ambulatory Siva Ron Other [employer] Other Start: 10-22-2023 Telephone encounter Siva Huggins [facility] Start: 08-13-2023 End: 08-13-2023 ambulatory Netta Montoya Other [employer] Other Start: 08-13-2023 Office outpatient visit 15 minutes Netta Montoya [facility] Start: 08-09-2023 End: 08-09-2023 Office outpatient visit 15 minutes Sagar Krause MD Work Phone: [facility] Comment on above: Post-op pain (Primar y Dx); Pain in prosthetic joint, subsequent encounter Start: 08-09-2023 End: 08-09-2023 Subsequent hospital visit by physician Sagar Krause MD Work Phone: [facility] Start: 08-09-2023 ambulatory NETTA MONTOYA [facility] Start: 06-19-2023 End: 06-19-2023 ambulatory MD Netta Montoya Work Phone: [facility] Work Phone: Start: 06-19-2023 End: 06-19-2023 Patient encounter procedure MD Netta Montoya Work Phone: [facility] Work Phone: Start: 05-22-2023 End: 05-22-2023 ambulatory Siva Ron Other [employer] Other Start: 05-22-2023 Telephone encounter Siva sheriff [employer] Start: 05-09-2023 End: 05-09-2023 ambulatory MD Netta Montoya Work Phone: [facility] Work Phone: Start: 05-09-2023 End: 05-09-2023 Patient encounter procedure MD Netta Montoya Work Phone: [facility] Work Phone: Start: 04-26-2023 End: 04-26-2023 ambulatory Netta Montoya Other [employer] Other Start: 04-26-2023 Telephone encounter Netta Montoya [facility] Start: 04-24-2023 End: 04-24-2023 ambulatory iSva Ron Other [employer] Other Start: 04-24-2023 Office outpatient visit 25 minutes Siva Ron [facility] Start: 04-23-2023 End: 04-23-2023 ambulatory Netta Montoya Other [employer] Other Start: 04-23-2023 Telephone encounter Netta Montoya [facility] Start: 04-20-2023 End: 04-20-2023 ambulatory Netta Montoya Other [employer] Other Start: 04-20-2023 Telephone encounter Netta BAUMAN [facility] Start: 03-15-2023 End: 03-15-2023 ambulatory Siva Ron Other [employer] Other Start: 03-15-2023 Telephone encounter Siva sheriff [facility] Start: 02-22-2023 End: 02-22-2023 Postop follow up visit related to original px Radha Irvin GENERAL HANDLING SUPERVISOR-STAFF REGISTERED NURSE Work Phone: [facility] Comment on above: Hx of total knee art hroplasty, left (Primary Dx) Start: 02-19-2023 End: 02-19-2023 ambulatory Netta Montoya Other [employer] Other Start: 02-19-2023 Telephone encounter Netta Montoya [facility] Start: 01-18-2023 End: 01-19-[address] Erin RON Facility:[facility] Start: 01-17-2023 End: 01-17-2023 ambulatory Siva Ron Other [employer] Other Start: 01-17-2023 Telephone encounter Siva sheriff [facility] Start: 01-16-2023 End: 01-16-2023 ambulatory Siva Ron Other [employer] Other Start: 01-16-2023 Telephone encounter Siva sheriff [facility] Start: 01-09-2023 Encounter for other preprocedural examination Netta Montoya [facility] Start: 01-09-2023 Office outpatient visit 15 minutes Netta Montoya [facility] Start: 01-09-2023 Telephone encounter Netta Montoya [facility] Start: 01-09-2023 End: 01-10-[address] Erin RON [employer] Other Start: 01-08-2023 End: 01-08-[address] Erin RON Facility:[facility] Start: 01-02-2023 End: 01-02-2023 ambulatory Siva Ron Other [employer] Other Start: 01-02-2023 Telephone encounter Siva sheriff [employer] Start: 01-01-2023 End: 01-01-2023 ambulatory Siva Ron Other [employer] Other Start: 01-01-2023 Office outpatient ne w 45 minutes Siva Ron [facility] Start: 11-30-2022 End: 11-30-2022 Office outpatient new 60 minutes Sagar Krause MD Work Phone: [facility] Comment on above: Pain in prosthetic j oint, sequela (Primary Dx) Start: 11-30-2022 End: 11-30-2022 Subsequent hospital visit by physician Sagar Krause MD Work Phone: [facility] Start: 11-28-2022 End: 11-29-[address] CARA LEO Facility:[facility] Start: 11-09-2022 End: 11-10-2022 ambulatory BRI BERGER Facility:[facility] Start: 10-18-2022 End: 10-19-[address] CARA LEO Facility:[facility] Start: 10-10-2022 End: 10-10-2022 ambulatory Netta Montoya Other [employer] Other Start: 10-10-2022 Office outpatient visit 15 minutes Netta Montoya [facility] Start: 09-22-2022 End: 09-22-2022 ambulatory Netta Montoya Other [employer] Other Start: 09-22-2022 Telephone encounter Netta Montoya [facility] Start: 09-13-2022 End: 09-14-2022 ambulatory JANETT BALBUENA [facility] [employer] Other Start: 09-13-2022 Office outpatient visit 15 minutes Netta Montoya [facility] Start: 08-23-2022 End: 08-24-2022 ambulatory TONY DICKINSON Facility:[facility] Start: 08-22-2022 End: 08-23-2022 ambulatory JANETT BALBUENA Facility:[facility] Start: 08-08-2022 End: 08-09-[address] PELON ALEXANDRE Facility:[facility] Start: 08-01-2022 Adult health examination Netta Montoya Other [employer] Other Start: 08-01-2022 Gynecological examination normal Netta Montoya Other [employer] Other Start: 08-01-2022 Pre-procedure evaluation check Netta Montoya Other [employer] Other Start: 07-11-2022 End: 07-12-[address] NETTA MONTOYA Facility:[facility] Start: 07-05-2022 End: 07-06-2022 ambulatory BASILIO LANDEROS Facility:[facility] Start: 04-08-2022 End: 04-09-[address] DOCTOR DESHPANDE Facility:[facility] Start: 04-05-2022 ambulatory SABINA DELGADILLO . Facility:[facility] Start: 03-28-2022 Encounter for other preprocedural examination DR DOCTOR DESHPANDE [facility] Start: 03-27-2022 End: 03-28-[address] DOCTOR [...] A g [Presence] in Stool by Immunoassay [facility] Start: 09-30-2024 Giardia lamblia Ag [Presence] in Stool by Immunoassay [facility] Start: 05-11-2024 Influenza vaccination INFLUENZ A VACCINE (Season Ended) [facility] Start: 02-21-2024 End: 02-20-2025 REQUEST FOR MISC LAB SENDOUT REQUEST FOR MISC LAB SENDOUT Lab Routine Pain in prosthetic joint, subsequent encounter Expected: 02/21/2024, Expires: 02/20/2025 [facility] Comment on above: Expected: 02/21/2024 , Expires: 02/20/2025 Start: 01-30-2024 End: 01-30-2024 Patient encounter procedure 01/30/2024 1:00 PM EDT Office Visit [facility] [address] [place] [address] Radha Irvin, GENERAL HANDLING SUPERVISOR-KEIRA [address] [place] [address] [facility] Start: 08-09-2023 End: 09-06-2023 C-reactive protein C REACTIVE PROTEIN Lab Routine Pain in prosthetic joint, subsequent encounter Expected: 08/09/2023, Expires: 09/06/2023 [facility] Comment on above: Expected: 08/09/2023 , Expires: 09/06/2023 Start: 08-09-2023 End: 09-06-2023 SEDIMENTATION RATE, AUTOMATED SEDIMENTATION RATE, AUTOMATED Lab Routine Pain in prosthetic joint, subsequent encounter Expected: 08/09/2023 (Approximate), Expires: 09/06/2023 [facility] Comment on above: Expected: 08/09/2023 (Approximate), Expires: 09/06/2023 Start: 07-06-2023 Hemoglobin A1c measurement HBA1C TEST [facility] Start: 06-06-2023 End: 06-06-2023 Patient encounter procedure 06/06/2023 1:10 PM EDT Office Visit [facility] [address] [place] [address] Sagar Krause MD [address] [place] [address] [facility] Start: 05-11-2023 COVID-19 VACCINE ( season) COVID-19 VACCINE ( season) [facility] Start: 05-11-2023 Influenza vaccination [facility] Start: 05-09-2023 [facility] Start: 01-04-2023 End: 01-04-2023 ambulatory 01/04/2023 Pre-Operative Nurse Assessment Internal Medicine [facility] Pre [facility] Start: 05-11-2022 Influenza vaccination INFLUENZA VACC INE (#1) [facility] Start: 12-15-2009 Zoster vaccine hzv l ag for subcutaneous use ZOSTER (SHINGLES) VACCINE (1 of 2) [facility] Start: 12-15-2004 Screening for malign ant neoplasm of colon COLORECTAL CANCER SCREENING DISCUSSION [facility] Start: 1999 Lipid panel LIPID SCREENING [facility] Start: 1999 Screening for malign ant neoplasm of breast MAMMOGRAM SCREENING DISCUSSION [facility] Start: 12-15-1980 Screening for malign ant neoplasm of cervix CERVICAL CANCER SCREENING DISCUSSION [facility] Start: 12-15-1978 Third diphtheria, te tanus and acellular pertussis (DTaP) vaccination TDAP (ADULT) [facility] Start: 12-15-1974 HIV screening HIV SCREENING DISCUSSION [facility] Start: 06-16-1960 COVID-19 VACCINE (#1) COVID-19 VACCI NE (#1) [facility] Start: 1959 Diabetic foot examination DIABETIC F OOT EXAM [facility] Start: 1959 Glaucoma screening EYE EXAM [facility] Start: 1959 Hepatitis C screening HEPATITI S C VIRUS SCREENING [facility] Start: 1959 Lipid panel LIPIDS [facility] Start: 1959 Tetanus vaccination TETANUS [facility] Start: 1959 Thyroid stimulating hormone measurement TSH [facility] Start: 1959 Urine screening for protein URINE MICROALBUMIN TEST [facility] Comprehensive metabo lic 2000 panel - Serum or Plasma [facility] Radiography for bone length studies XR BONE LENGTH STUDY Imaging Routine Pain in prosthetic joint, sequela 11/30/2022 1:41 PM EDT [facility] Supine abdominal X-ray [facility] XR Knee - left 3 Views XR KNEE L EFT 3 VIEWS Imaging Routine Pain in prosthetic joint, sequela 11/30/2022 1:41 PM EDT [facility] Work Phone: XR Knee - left 3 Views XR KNEE L EFT 3 VIEWS Imaging Routine Hx of total knee arthroplasty, left 02/22/2023 2:50 PM EDT [facility] XR Knee - left 3 Views XR KNEE L EFT 3 VIEWS Imaging Routine Post-op pain 08/09/2023 2:03 PM EST [facility] XR Knee - left 3 Views XR KNEE L EFT 3 VIEWS Imaging Routine Hx of total knee arthroplasty, left 12/26/2023 1:43 PM EDT [facility] XR Knee - left 3 Views XR KNEE L EFT 3 VIEWS Imaging Routine Hx of total knee arthroplasty, left 02/21/2024 1:11 PM EDT [facility] Payers Date Payer Category Payer Private Health Insurance 2021 Medicare [id number] 1959 Unknown [id number] 2.16.84 0.1.747570.3.579.2.593 1959 Unknown [id number] 2.16.84 0.1.401935.3.579.2.593 1959 Unknown [id number] 2.16.84 0.1.057452.3.579.2.593 1959 Unknown [id number] 2.16.84 0.1.745002.3.579.2.593 1959 Unknown [id number] 2.16.84 0.1.313676.3.579.2.593 1959 Unknown [id number] 2.16.84 0.1.988790.3.579.2.593 1959 Unknown [id number] 2.16.84 0.1.768874.3.579.2.593 1959 Unknown [id number] 2.16.84 0.1.301095.3.579.2.593 1959 Unknown [id number] 2.16.84 0.1.618015.3.579.2.593 1959 Unknown [id number] 2.16.84 0.1.316486.3.579.2.593 1959 Unknown [id number] 2.16.84 0.1.913431.3.579.2.593 1959 Unknown [id number] 2.16.84 0.1.263816.3.579.2.593 1959 Unknown [id number] 2.16.84 0.1.285520.3.579.2.593 1959 Unknown [id number] 2.16.84 0.1.781379.3.579.2.593 1959 Unknown [id number] 2.16.84 0.1.624420.3.579.2.593 1959 Unknown [id number] 2.16.84 0.1.180004.3.579.2.593 1959 Unknown [id number] 2.16.84 0.1.298008.3.579.2.593 1959 Unknown [id number] 2.16.84 0.1.366834.3.579.2.593 1959 Unknown [id number] 2.16.84 0.1.101845.3.579.2.593 1959 Unknown [id number] 2.16.8 40.1.376007.3.579.2.983 1959 Unknown [id number] 2.16.8 40.1.407281.3.579.2.983 1959 Unknown [id number] 2.16.8 40.1.168898.3.579.2.983 1959 Unknown [id number] 2.16.8 40.1.552863.3.579.2.983 1959 Unknown [id number] 2.16.8 40.1.449985.3.579.2.983 1959 Unknown [id number] 2.16.8 40.1.798190.3.579.2.983 1959 Unknown [id number] 2.16. 840.1.057208.3.579.2.1286 1959 Unknown [id number] 2.16. 840.1.768531.3.579.2.6 1959 Unknown [id number] 2.16.8 40.1.428298.3.579.2.1286 1959 Unknown [id number] 2.16.8 40.1.920890.3.579.2.1286 1959 Unknown [id number] 2.16.8 40.1.735586.3.579.2.1286 1959 Unknown [id number] 2.16.8 40.1.393411.3.579.2.1286 1959 Unknown [id number] 2.16. 840.1.880074.3.579.2.196 1959 Unknown [id number] 2.16. 840.1.405486.3.579.2.196 1959 Unknown [id number] 2.16. 840.1.481493.3.579.2.196 1959 Unknown [id number] 2.16. 840.1.306416.3.579.2.196 1959 Unknown [id number] 2.16. 840.1.302300.3.579.2.196 1960 Medicare [id number] 2. 16.840.1.156558.19 Medicare Medicare [id number] Private Health Insurance CLI [id number] Unknown O [id number] Social History Date Type Detail Facility Unknown if ever smoked [employer] Other Start: 02-22-2023 End: 12-26-2023 Sex Assigned At [employer] Other Start: 11-30-2022 End: 07-25-2024 Tobacco smoking status NHIS Never smoked tobacco [facility] Start: 11-30-2022 Tobacco use and exposure Smokeless tobacco non-user [facility] Start: 11-30-2022 End: 02-21-2024 Alcohol intake Ex-drinker (finding) [facility] Start: 1960 Sex Assigned At Not on file [facility] Start: 02-22-2023 End: 12-26-2023 History of Social function [facility] Start: 01-19-2023 End: 01-29-2023 Exposure to SARS-CoV-2 (event) Not sure [facility] Start: 1960 Sex Assigned At Female F [facility] Start: 10-01-2024 Sex Patient sex un known (finding) [facility] Start: 10-21-2024 End: 12-27-2024 Sex Female (finding) [facility] Medical Equipment Procedure Code Equipment Code Equipment Origin al Text Equipment Identifier Dates One Touch Ultra Test Strips Insert - Knee - [id number] Start: 01-29-2023 Patella - Knee - [id number] Start: 01-29-2023 Revision Pressfi t Stem 12mmx 60 [id number] Start: 01-29-2023 Revision Tibial Base Sz 2 [id number] Start: 01-29-2023 Rev Offset Stem 2mm [id number] t: 01-29-2023 Rev Distal Femor al Augment Sz 5 4mm [id number] Start: 01-29-2023 Rev Crs Femoral Sz 5 Left [id number] Start: 01-29-2023 Palacos R 1 X 40 Us - [id number] Start: 01-29-2023 Palacos R & G Smooth ne Cement High-Viscosity With Gentamicin - [id number] Start: 01-29-2023 Blood Sugar Diagnostic (Onetouch [...] Desired Activity /State Clinical Notes 03-08-2022 to 01-29-2025 Note Date & Type Note Facility 01-29-2025 Note Received referral ag ain for same dx. LVM for pt to call clinic to schedule consult with Dr. Mccord to discuss SCS. Please let procedure writer know when scheduled. [facility] will need notified. Imaging obtained. 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 8:57am Hypothyroidism acute October 112024 8:57am Intolerance to BiPAP/CPAP acute October 21 8:57am LUIS (obstructive sleep apnea) acute February 11th, 2 025 8:57am Restless leg syndrome acute Feb ruary 2024 8:57am Vitamin B12 deficiency acute bru2024 8:57am Maxillary sinusitis acute December 10, 2024 8:54am Tension headache acute December 8:54am Type 2 diabetes mellitus with hyperglycemia acute December 10 8:54am Bloating acute December 26 10:06am Fecal incontinence acute December 26, 2024 10:06am Fecal urgency acute December 26, 2024 10:06am Gas bloat syndrome acute December 26, 2024 10:06am Irritable bowel syndrome with constipation and diarrhea acute December 26, 2024 10:06am [facility] Work Phone: 1(679) 594-829802-11-2025 Evaluation note* Diagnosis Onset Date Resolution Status Admit Date Chronic insomnia acute October 21, 2024 8:57am Depression acute October 21, 2024 8:57am Hypnotic dependence acute 2024 8:57am Hypothyroidism acute October 112024 8:57am Intolerance to BiPAP/CPAP acute October 21, 2024 8:57am LUIS (obstructive sleep apnea) acute October 21, 2024 8:57am Restless leg syndrome acute b ary 2024 8:57am Vitamin B12 deficiency acute 2024 8:57am Maxillary sinusitis acute December 10, [...] and diarrhea acute December 26, 2024 10:06am [facility] Work Phone: 1(597) 728-397701-21-2025 Evaluation note* Diagnosis Onset Date Resolution Status [...] h hyperglycemia acute December 10, 2024 8:54am [facility] Work Phone: 1(397) 831-926111-19-2024 Evaluation note* Diagnosis Onset Date Resolution Status [...] B12 deficiency acute Fe bruary 2024 8:57am [facility] Work Phone: 1(877) 189-488511-07-2024 Evaluation note* Diagnosis Onset Date Resolution Status [...] 1:49pm Nausea acute September 30, 2024 1:49pm [facility] Work Phone: 1(517) 640-411406-13-2024 History of Present illness Narrative* Sandra Ally [...] 02/21/2024 1:17 PM Patient: Emily Macias MR#: [id number] : 1960 Age: 63 y.o. Referring Physician: Self, Self Insurance: Payor: MEDICARE [employer]eq HMO OR PPO / Plan: MEDICARE [employer] HMO / Product Type: *No Product type* [...] daily. 60 capsule 0 Cholecalciferol 250 MCG (24005 UT) capsule capsule Take by mouth daily. [...] DR tablet Take by mouth daily. Pancrelipase, Giz-Cwrv-Jrbw, (CREON PO) Take 36,000 Units by mouth. [...] by Nasal route once for 1 dose. [place] into the nose as directed. Call 911. [...] 60 capsule, Rfl: 0 Cholecalciferol 250 MCG (47335 UT) capsule capsule, Take by mouth daily., [...] by mouth daily., Disp: , Rfl: Pancrelipase, Oib-Wtfc-Hdnr, (CREON PO), Take 36,000 Units by mouth. [...] by Nasal route once for 1 dose. [place] into the nose as directed. Call 911. [...] bracing and also reported she applied for manager financial reporting for additional PT. Should she need additional [...] have reviewed the findings of the clinical computer support analyst and agree with their assessment. Ortho Nurse - Established Patient Intake Room#: 2 Pt is here for left knee pain ( LTKA revision 01/30/24. Pt states that she is still having pain in her knee. Pain is 4-5. Pt did physical therapy, and took the medication but no relief. Pt would like to discuss options Date: 02/21/2024 1:17 PM Patient: Emily Macias MR#: [id number] : 1960 Age: 63 y.o. Referring Physician: Self, Self Insurance: Payor: MEDICARE AETNA HMO OR PPO / Plan: MEDICARE [employer] HMO / Product Type: *No Product type* [...] daily. 60 capsule 0 Cholecalciferol 250 MCG (37300 UT) capsule capsule Take by mouth daily. [...] DR tablet Take by mouth daily. Pancrelipase, Bjy-Txct-Xobu, (CREON PO) Take 36,000 Units by mouth. [...] by Nasal route once for 1 dose. [place] into the nose as directed. Call 911. [...] 60 capsule, Rfl: 0 Cholecalciferol 250 MCG (67844 UT) capsule capsule, Take by mouth daily., [...] by mouth daily., Disp: , Rfl: Pancrelipase, Ann-Jhau-Wxys, (CREON PO), Take 36,000 Units by mouth. [...] by Nasal route once for 1 dose. [place] into the nose as directed. Call 911. [...] zanaflex [tizanidine], and vancom[facility]. [facility] of Present illness Narrative* Raven Ede - 12/26/2023 2:00 PM EDT Ortho Nurse - Established Patient Intake Room#: 5 Date: 12/26/2023 1:55 PM Patient: Emily Macias MR#: [id number] : 1960 Age: 63 y.o. 1yr L TKA Pt stated her knee has been locking on her and has pain 5/10. Pt stated she is almost always a 4-5/10 on the pain scale. Referring Physician: Self, Self Insurance: Payor: MEDICARE [employer]O HMO OR PPO / Plan: MEDICARE AETNA [...] daily. 60 capsule 0 Cholecalciferol 250 MCG (68021 UT) capsule capsule Take by mouth daily. [...] DR tablet Take by mouth daily. Pancrelipase, Wfd-Awbh-Sctd, (CREON PO) Take 36,000 Units by mouth. [...] by Nasal route once for 1 dose. [place] into the nose as directed. Call 911. [...] 60 capsule, Rfl: 0 Cholecalciferol 250 MCG (28150 UT) capsule capsule, Take by mouth daily., [...] by mouth daily., Disp: , Rfl: Pancrelipase, Tgq-Lari-Chrh, (CREON PO), Take 36,000 Units by mouth. [...] by Nasal route once for 1 dose. [place] into the nose as directed. Call 911. [...] zanaflex [tizanidine], and vancomycin. * Radha Irvin, ALVARO-STAFF REGISTERED NURSE - 12/26/2023 2:00 PM EDT SUBJECTIVE: Emily is an established patient of [facility]. She is here today for followup. She [...] She thinks she had that done at [facility]. We will try and obtain those results. [...] up with Dr. Krause for clinical examination. (DOC:[id number]) I have reviewed the findings of the clinical computer support analyst and agree with their assessment. Radha Irvin APRN-KEIRA Ortho Nurse - Established Patient Intake Room#: 5 Date: 12/26/2023 1:55 PM Patient: Emily Macias MR#: [id number] : 1960 Age: 63 y.o. 1yr L TKA Pt stated her knee has been locking on her and has pain 5/10. Pt stated she is almost always a 4-5/10 on the pain scale. Referring Physician: Self, Self Insurance: Payor: MEDICARE AETNA HMO OR PPO / Plan: MEDICARE AETQ[employer]eq HMO / Product Type: *No Product type* [...] daily. 60 capsule 0 Cholecalciferol 250 MCG (91479 UT) capsule capsule Take by mouth daily. [...] DR tablet Take by mouth daily. Pancrelipase, Zga-Hqcn-Etlb, (CREON PO) Take 36,000 Units by mouth. [...] by Nasal route once for 1 dose. [place] into the nose as directed. Call 911. [...] 60 capsule, Rfl: 0 Cholecalciferol 250 MCG (79841 UT) capsule capsule, Take by mouth daily., [...] by mouth daily., Disp: , Rfl: Pancrelipase, Mzk-Zyqf-Homg, (CREON PO), Take 36,000 Units by mouth. [...] by Nasal route once for 1 dose. [place] into the nose as directed. Call 911. [...] zanaflex [tizanidine], and vancomycin. [facility] Encounter Date Diagnosis Assessment Notes Treatment Notes Treatment Clinical Notes Aug, Piriformis syndrome, right (ICD-10 - G57.01) Pt declines PT at this time. Gave handouts for exercises and use flexeril qhs. Aug, Trochanteric bursitis, right hip (ICD-10 - M70.61) Pt declines PT. Muscle relaxer and handouts given. [employer] Other 11-30-2023 History of Present illness Narrative* [...] 08/09/2023 2:58 PM Patient: Emily Macias MR#: [id number] : 1960 Age: 62 y.o. Referring Physician: [...] DR tablet Take by mouth daily. Pancrelipase, Acp-Azdl-Malq, (CREON PO) Take 36,000 Units by mouth. [...] taking: Reported on 08/09/2023) Cholecalciferol 250 MCG (24783 UT) capsule capsule Take by mouth daily. [...] by Nasal route once for 1 dose. [place] into the nose as directed. Call 911. [...] have reviewed the findings of the clinical computer support analyst and agree with their assessment. Ortho Nurse [...] 08/09/2023 2:58 PM Patient: Emily Macias MR#: [id number] : 1960 Age: 62 y.o. Referring Physician: Sagar Krause MD Insurance: Payor: MEDICARE AETNA HMO OR PPO / Plan: MEDICARE [employer] HMO / Product Type: *No Product type* [...] DR tablet Take by mouth daily. Pancrelipase, Izv-Hnvw-Rjfn, (CREON PO) Take 36,000 Units by mouth. [...] taking: Reported on 08/09/2023) Cholecalciferol 250 MCG (82348 UT) capsule capsule Take by mouth daily. [...] by Nasal route once for 1 dose. [place] into the nose as directed. Call 911. [...] zanaflex [tizanidine], and vancomycin. [facility]* Encounter Date Diagnosis Assessment Notes Treatment Notes Treatment Clinical Notes Apr, Abdominal cramping (ICD-10 - R10.9) Patient reports doing well Apr, Diverticulosis (ICD-10 - K57.90) Apr, Alternating constipation and diarrhea (ICD-10 - R19.8) Apr, Pancreatic atrophy (ICD-10 - K86.89) Apr, Fatty liver (ICD-10 - K76.0) [employer] Other 08-11-2023 Evaluation note* Encounter Date Diagnosis Assessment Notes Treatment Notes Treatment Clinical Notes Apr, Type 2 diabetes mellitus with hyperglycemia, without long-term current use of insulin (ICD-10 - E11.65) [employer] Other 06-15-2023 History of Present illness Narrative* [...] 02/22/2023 3:16 PM Patient: Emily Macias MR#: [id number] : 1960 Age: 62 y.o. Referring Physician: [...] daily. 84 capsule 0 Cholecalciferol 250 MCG (65852 UT) capsule capsule Take by mouth daily. [...] by Nasal route once for 1 dose. [place] into the nose as directed. Call 911. If no response in 2 minutes use a new nasal spray in other nostril. Repeat until help arrives. 1Each [address] Omep[address] tablet Take by mouth daily. oxyCODONE 5 MG tablet Take 1-2 tabs po q 4-6 hours prn pain. Wean as tolerated. 20 tablet 0 Pancrelipase, Yvp-Cyua-Qnkw, (CREON PO) Take 36,000 Units by mouth. [...] 84 capsule, Rfl: 0 Cholecalciferol 250 MCG (12445 UT) capsule capsule, Take by mouth daily., [...] by Nasal route once for 1 dose. [place] into the nose as directed. Call 911. [...] tolerated., Disp: 20 tablet, Rfl: 0 Pancrelipase, Tgr-Dhfr-Dtrs, (CREON PO), Take 36,000 Units by mouth. [...] and vancomycin. * Radha Irvin APRN-KEIRA - 02/22/2023 3:00 PM EDT HPI: [...] understanding. All pertinent portions of the clinical computer support analyst documentation was reviewed and agree. DANIELLE Gimenez I have reviewed the findings of the clinical computer support analyst and agree with their assessment. DANIELLE Gimenez Ortho Nurse - Established Patient Intake Room#: 5 Patient is S/P L knee medial/partial revision to TKA. Patient using walker today and penelope hose are in place. She states the worse pain is at HS while trying to sleep. Sitting pain 4/10 Walking pain is 5/10 Date: 02/22/2023 3:16 PM Patient: Emily Macias MR#: [id number] : 1960 Age: 62 y.o. Referring Physician: [...] daily. 84 capsule 0 Cholecalciferol 250 MCG (15875 UT) capsule capsule Take by mouth daily. [...] by Nasal route once for 1 dose. [place] into the nose as directed. Call 911. If no response in 2 minutes use a new nasal spray in other nostril. Repeat until help arrives. 1Each [address] Omeprazole [address] tablet Take by mouth daily. oxyCODONE 5 MG tablet Take 1-2 tabs po q 4-6 hours prn pain. Wean as tolerated. 20 tablet 0 Pancrelipase, Vuk-Ehfv-Wphg, (CREON PO) Take 36,000 Units by mouth. [...] 84 capsule, Rfl: 0 Cholecalciferol 250 MCG (67220 UT) capsule capsule, Take by mouth daily., [...] by Nasal route once for 1 dose. [place] into the nose as directed. Call 911. [...] tolerated., Disp: 20 tablet, Rfl: 0 Pancrelipase, Qoh-Ubca-Gzjb, (CREON PO), Take 36,000 Units by mouth. [...] zanaflex [tizanidine], and vancomycin. documented in this [facility]05-10-2023 Evaluation note* Encounter Date Diagnosis Assessment Notes Treatment Notes Treatment Clinical Notes January, Alternating constipation and diarrhea (ICD-10 - R19.8) [employer] Other 05-02-2023 Evaluation note* Encounter Date Diagnosis [...] of Farxiga and pt will trial those. [employer] Other 04-24-2023 Evaluation note* Encounter Date Diagnosis [...] scan in October of last year in [place], following a colonoscopy that was done in September Start Mesalamine Dec, Alternating constipation and diarrhea (ICD-10 - R19.8) Start low fod map diet Start probiotics [employer] Other 03-23-2023 History of Present illness Narrative* [...] 11/30/2022 2:13 PM Patient: Emily Macias MR#: [id number] : 1960 Age: 61 y.o. Referring Physician: [...] [x]cane, []bracing Are you followed by a cuff setter? [] [x] Name: Are you followed by pain management? [] [x] Name: Are you followed by any other specialists? [x] [] Name: RA Dr Felipa Santana Outpatient Medications Prior to Visit Medication Sig Dispense Refill Ascorbic Acid 1000 MG tablet Take 1 tablet by mouth daily. B Complex Vitamins (B COMPLEX 1 PO) Take by mouth. Biotin 15607 MCG tablet Take by mouth. Cholecalciferol 250 MCG (87605 UT) capsule capsule Take by mouth. Cobalamin [...] Take by mouth., Disp: , Rfl: Biotin 68887 MCG tablet, Take by mouth., Disp: , Rfl: Cholecalciferol 250 MCG (55150 UT) capsule capsule, Take by mouth., Disp: [...] symptoms. She has history of partial medial [place] uni knee on 08/13/[address] Lazra. She reports pain since the operation, she [...] left knee. She has a medial partial [place] uni-arthroplasty in place with severe adjacent patellofemoral arthritis. IMPRESSION: 1.) History of left partial medial [place] uni knee on 08/13/[address] Lazar. [...] conversion from uni to total for optimal oysterman management. We have discussed in great detail [...] including nasalMRSA screening, scheduling an appointment for [facility] [place] and the potential surgical date, andreviewing and [...] Take by mouth., Disp: , Rfl: Biotin 75375 MCG tablet, Take by mouth., Disp: , Rfl: Cholecalciferol 250 MCG (12836 UT) capsule capsule, Take by mouth., Disp: [...] migraines Zanaflex [Tizanidine] Hallucination documented in this [facility]-31[facility] Evaluation note* Encounter Date Diagnosis Assessment Notes Treatment Notes Treatment Clinical Notes Sep, Fibromyalgia (ICD-10 - M79.7) handicap placard rx handwritten Sep, Type 2 diabetes mellitus with hyperglycemia, without long-term current use of insulin (ICD-10 - E11.65) good readings on home meter with present meds. Sep, Positive ADRI (antinuclear antibody) (ICD-10 - R76.8) Suggested getting on cancellation list at Rheumatology [employer] [facility] Other 01-13-2023 Evaluation note* Encounter Date Diagnosis Assessment Notes Treatment Notes Treatment Clinical Notes Sep, Positive ADRI (antinuclear antibody) (ICD-10 - R76.8) Sep, Fibromyalgia (ICD-10 - M79.7) [employer] Other 01-04-2023 Evaluation note* Encounter Date Diagnosis Assessment Notes Treatment Notes Treatment Clinical Notes Sep, Abdominal cramping (ICD-10 - R10.9) Sep, Type 2 diabetes mellitus with hyperglycemia, without long-term current use of insulin (ICD-10 - E11.65) advised holding or decreasing dose of ozempic to 0.25/week as this could relate to GI side effects [employer] Other 10-31-2022 NotePROCEDURE: XR TIB_FIB RT 2V COMPARISON: 08/24/2021 HISTORY: Pain in lower limb FINDINGS: BONES:No acute fracture or dislocation. Degenerative changes of the knee and ankle. Enthesopathic spurring of the calcaneus SOFT TISSUES:Negative. No visible soft tissue swelling. EFFUSION:None visible. OTHER: Negative. IMPRESSION: Osteoarthritis Electronically authenticated by: WANDA DIANE Date: 2022-07-10 13:36[facility]06-29-2022 NoteCONSULTATION CONSULTATION DATE: 03/08/2022 HISTORY OF PRESENT [...] of pain. Activities such as twisting, standing, babysitter hours and physical activity aggravate her pain. [...] care and would like to move forward. [facility] Signed and Approved by: SABINA DELGADILLO . 03/09/2022 13:38:00[facility]* Diagnosis Pain in prosthetic joint, sequela- Primary [facility] InformationNort KAYAK Other Evaluation note* Diagnosis Hx of total knee arthroplasty, left- Primary [facility] in [facility] assessment information [facility] Work Phone: Evaluation note* Diagnosis Post-op pain- Primary Other acute postoperative pain Pain in prosthetic joint, subsequent encounter [facility] Diagnosis Hx of total knee arthroplasty, left- Primary [facility] Diagnosis Hx of total knee arthroplasty, left- Primary Pain in prosthetic joint, subsequent encounter [facility] Narrative - Reported* Type Description [...] diabetes divya itus with hyperglycemia, unspecified whether oysterman insulin use Medical History Fitzpatrick splints, right, [...] AND ADENOIDECTOMY Hospitalization History mono Hospitalization History [employer] Other History general Narrative - Reported* Type [...] diabetes divya itus with hyperglycemia, unspecified whether intermediate insulin use Medical History Fitzpatrick splints, right, [...] 01/29/2023 Hospitalization History mono Hospitalization History menegitis [employer] Other Reason for referral (narrative)* Consultation (Routine) - Patient to Arrange Specialty Diagnoses / Procedures Referred By Westley finnegan Referred To Contact Physical Therapy Diagnoses Hx of total knee arthroplasty, left BrandeeRadha, GENERAL HANDLING SUPERVISOR-STAFF REGISTERED NURSE [address] [place] [address] Referral ID Status Reason Start Date Expiration Date V isits Requested Visits Authorized [id number] Patient to Arrange 02/22/2023 03/18/2024 1 1 Scheduling Instructions . * Diagnostic X-Ray (Routine) - New Request Specialty Diagnoses / Procedures Referred By Westley finnegan Referred To Contact Diagnoses Hx of total knee arthroplasty, left Procedures XR KNEE LEFT 3 VIEWS Radha Irvin APRN-CNP [address] [place] [address] Referral ID Status Reason Start Date Expiration Date V isits Requested Visits Authorized [id number] New Request 02/20/2023 03/16/2024 1 1 [facility] Summary Purpose Family History No Family History Records Found Relationship Condition Age at Onset Recorded Date/T joaquina brother Heart disease Unknown father Malignant neoplasm Unknown Hypertension Unknown Family history of mental disorder Unknown mother Malignant neoplasm Unknown Diabetes mellitus Unknown Heart disease Unknown Advance Directives No Advanced Directives Records FoundLatest [...] 1 Abdominal cramping ( R10.9) Referral Organization [facility] reginaldo Referring Provider First Name Netta Referring Provider Last Name Lindsay Referring Provider Specialty Family [facility] Referred Organization [facility] Referred Provider Ismael Early Referred Address [address] [place], [place],[address] Referred Provider Specialty Gastroentero logy Referral Priority Routine Referral Appointment Date 2022-12-28 General Notes Sonali Cortez 10:30:02 AM >received today, notes locked and referral faxed Sonali Cortez 09/25/2022 10:48:23 AM >pt scheduled Reason 11/21/22 See phone note - this is 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 I do not have a copy of his labs. Diagnosis 1 Positive ADRI (antinu clear antibody) (R76.8) Referral Organization [facility] Hugo hair Referring Provider First Name Netta Referring Provider Last Name Lindsay Referring Provider Specialty Family [facility] cine Referred Organization [facility] josiane Referred Provider Cara Leo Referred Address [address] [facility] [address],[place],[address] Referred Provider Specialty Rheumatology Referral Priority Routine Referral Appointment Date 2022-11-21 General Notes Sonali Cortez 09:22:28 AM >received today, notes attached and ins card attached. will call pt to see who she saw in [place] to get labs. Sonali Cortez 09/25/2022 10:37:57 AM >spoke with patient and was provided Dr. Balbuena phone number [phone] to request labs. told patient I would [...] XR BONE LENGTH STUDY Sagar Krause MD [address] [place] [id number] Referral ID Status Reason Start Date Expiration Date V isits Requested Visits Authorized [id number] New Request 11/24/2022 12/19/2023 1 1 Specialty Diagnoses / Procedures Referred By Contac t Referred To Contact Diagnoses Pain in prosthetic joint, sequela Procedures XR KNEE LEFT 3 VIEWS Sagar Krause MD [address] [place] [id number] Referral ID Status Reason Start Date Expiration Date V isits Requested Visits Authorized [id number] New Request 11/24/2022 12/19/2023 1 1 Specialty Diagnoses / Procedures Referred By Contac t Referred To Contact Diagnoses Post-op pain Procedures XR KNEE LEFT 3 VIEWS Sagar Krause MD [address] [place] [address] Referral ID Status Reason Start Date Expiration Date V isits Requested Visits Authorized [id number] New Request 08/06/2023 08/30/2024 1 1 Specialty Diagnoses / Procedures Referred By Contac t Referred To Contact Diagnoses Hx of total knee arthroplasty, left Procedures XR KNEE LEFT 3 VIEWS Radha Irvin, GENERAL HANDLING SUPERVISOR-STAFF REGISTERED NURSE [address] [place] [id number] Referral ID Status Reason Start Date Expiration Date V isits Requested Visits Authorized [id number] New Request 12/25/2023 01/18/2025 1 1 Specialty Diagnoses / Procedures Referred By Contac t Referred To Contact Diagnoses Hx of total knee arthroplasty, left Procedures XR KNEE LEFT 3 VIEWS Sagar Krause MD [address] [place] [address] Referral ID Status Reason Start Date Expiration Date V isits Requested Visits Authorized [id number] New Request 02/14/2024 03/10/2025 1 1 Chief [...] and content) DATE CREATED AUTHOR 09/08/2021 [facility] DATE CREATED AUTHOR AUTHOR'S ORGANIZ ATION 01/23/2023 [facility] DATE CREATED AUTHOR AUTHOR'S ORGANIZ ATION 02/29/2024 [facility] DATE CREATED AUTHOR AUTHOR'S ORGANIZ ATION 09/22/2024 [facility] DATE CREATED AUTHOR AUTHOR'S ORGANIZ ATION 12/28/2024 [facility] DATE CREATED AUTHOR AUTHOR'S ORGANIZ ATION 02/05/2025 [facility] DATE CREATED AUTHOR AUTHOR'S ORGANIZ ATION 02/16/2025 [facility] REASON FOR VISIT (unrecogniz ed section and content) Specialty Diagnoses / Procedures Referred By Contac t Referred To Contact Diagnoses Pain in prosthetic joint, sequela Procedures XR BONE LENGTH STUDY Sagar Krause MD [address] [place] [address] Referral ID Status Reason Start Date Expiration Date V isits Requested Visits Authorized [id number] New Request 11/24/2022 12/19/2023 1 1 Reason Comments Pain Reason Comments Surgical Follow-up Specialty Diagnoses / Procedures Referred By Contac t Referred To Contact Diagnoses Post-op pain Procedures XR KNEE LEFT 3 VIEWS Sagar Krause MD [address] [place] [address] Referral ID Status Reason Start Date Expiration Date V isits Requested Visits Authorized [id number] New Request 08/06/2023 08/30/2024 1 1 Reason Comments Pain Specialty Diagnoses / Procedures Referred By Contac t Referred To Contact Diagnoses Hx of total knee arthroplasty, left Procedures XR KNEE LEFT 3 VIEWS Radha Irvin, GENERAL HANDLING SUPERVISOR-STAFF REGISTERED NURSE [address] [place] [address] Referral ID Status Reason Start Date Expiration Date V isits Requested Visits Authorized [id number] New Request 12/25/2023 01/18/2025 1 1 Reason Comments Follow-up Specialty Diagnoses / Procedures Referred By Contac t Referred To Contact Diagnoses Hx of total knee arthroplasty, left Procedures XR KNEE LEFT 3 VIEWS Sagar Krause MD [address] [place] [address] Referral ID Status Reason Start Date Expiration Date V isits Requested Visits Authorized [id number] New Request 02/14/2024 03/10/2025 1 1 Care Teams (unrecognized sec tion and content) Airline Lounge Receptionist Relationship Specialty Start Date End Date Netta Montoya MD [address] [place] [phone] PCP - General Family Medicine 10/20/22 Airline Lounge Receptionist Relationship Specialty Start Date End Date Netta Montoya MD [address] [place] [phone] PCP - General Family Medicine 10/20/22 Airline Lounge Receptionist Relationship Specialty Start Date End Date Netta Montoya MD [address] [place] [phone] PCP - General Family Medicine 10/20/22 Team Status: Active Member Role Status Dates Netta Montoya MD Primary Care Provider Active Team Status: Inactive Member Role Status Dates Siva Ron MD Attending Provider Active Netta Montoya MD Primary Care Provider Active Team Status: Inactive Member Role Status Dates Netta Montoya MD Primary Care Provider Active Cara Leo MD Attending Provider Active Airline Lounge Receptionist Relationship Specialty Start Date End Date Netta Montoya MD [address] [place] [phone] PCP - General Family Medicine 10/20/22 Airline Lounge Receptionist Relationship Specialty Start Date End Date Netta Montoya MD [address] [place] [phone] PCP - General Family Medicine 10/20/22 Airline Lounge Receptionist Relationship Specialty Start Date End Date Netta Montoya MD [address] [place] [phone] PCP - General Family Medicine 10/20/22 Airline Lounge Receptionist Relationship Specialty Start Date End Date Netta Montoya MD [address] [place] [address] PCP - General Family Medicine 10/20/22 Team [...] 2024 Team Status: Inactive Member Role Status Fermin Montoya MD Primary Care Provider Active Start: [...] 2024 Team Status: Active Member Role Status Fermin Montoya MD Primary Care Provider Active Start: November 10, 2024 Mary Nicolas APRN Attending Provider Active Start: November 10, 2024 Team Status: Inactive Member Role Status Fermin Montoya MD Primary Care Provide r, Attending [...] BE BASED ON THE PRIMARY CLINICAL RECORDS. [facility]. provides no warranty or guarantee of the accuracy or completeness of information in this document.
--- NOTE | 2025-02-19 09:22 | PM.CN ---
Consult Note: HPI Data of Consult Patient: known to practice within the last 3 years Requesting Physician: Tayler Augustin NP Primary Care Provider: Soila Joseph MD Consult Narrative Reason for consult: f/u Narrative: Lissy Chu a pleasant 64 year old female with chronic moderate to severe low back and left knee pain post replacement presents for evaluation. pt has failed to benefit from > 6 weeks of PT/provider guided HEP, heat, ice, tylenol, nsaids. currently utilizing zonegran 50mg am and 100mg HS, celebrex 200mg BID, tramadol 50mg prn, robaxin 500mg hs with mild relief without side effects. denies falls or injury since last visit. Pain today 5/10 in bilateral hips, low back, and buttocks without numbness tingling weakness of BLE. since last visit underwent a right L4-5 L5-S1 TFESI with >50% improvement ongoing. cc:: CC: Tayler Augustin NP Review of Systems ROS Status of ROS 10 or more systems reviewed and unremarkable except as noted in history and below Musculoskeletal Reports: back pain and joint pain; Denies: extremity pain PFSH PFSH Medical History (Updated 02/19/25 @ 09:25 by Tayler Augustin NP) Rectocele ?N81.6 - Rectocele (ICD-10) Cataract, left eye ?H26.9 - Unspecified cataract (ICD-10) Cataract, right eye ?H26.9 - Unspecified cataract (ICD-10) History of revision of total replacement of left knee joint ?Z96.652 - Presence of left artificial knee joint (ICD-10) Plantar fasciitis of right foot ?M72.2 - Plantar fascial fibromatosis (ICD-10) Tear of left meniscus as current injury ?S83.207A - Unspecified tear of unspecified meniscus, current injury, left knee, initial encounter (ICD-10) Ruptured ovarian cyst ?N83.209 - Unspecified ovarian cyst, unspecified side (ICD-10) Surgical History H/O hemorrhoidectomy ?Z98.890 - Other specified postprocedural states (ICD-10) History of fundoplication ?Z98.890 - Other specified postprocedural states (ICD-10) History of hysterectomy ?Z90.710 - Acquired absence of both cervix and uterus (ICD-10) History of laparoscopic cholecystectomy ?Z90.49 - Acquired absence of other specified parts of digestive tract (ICD-10) History of carpal tunnel surgery of right wrist ?Z98.890 - Other specified postprocedural states (ICD-10) History of tonsillectomy and adenoidectomy ?Z90.89 - Acquired absence of other organs (ICD-10) Meds Home Medications and Allergies Home Medications ?Medication ?Instructions ?Recorded ?Confirmed ?Type celecoxib 200 mg capsule (Celebrex) 200 mg PO BID 06/24/24 02/09/25 History eszopiclone 3 mg tablet (Lunesta) 3 mg DAILY 06/24/24 History levothyroxine 100 mcg tablet 100 mcg PO DAILY 06/24/24 02/09/25 History (Euthyrox) metformin 1,000 mg tablet 1,000 mg PO BID 06/24/24 02/09/25 History multivitamin 1 tab PO DAILY 06/24/24 02/09/25 History omeprazole 20 mg capsule,delayed 20 mg PO DAILY 06/24/24 02/09/25 History release oxybutynin chloride 5 mg tablet 5 mg PO DAILY 06/24/24 02/09/25 History tramadol 50 mg tablet 50 mg PO BID 06/24/24 02/09/25 History zonisamide 50 mg capsule 100 mg (2 x 50 mg) PO DAILY #60 09/18/24 02/09/25 Rx caps zonisamide 100 mg capsule 100 mg PO DAILY #30 caps 10/21/24 02/09/25 Rx (Zonegran) Allergies Allergy/AdvReac Type Severity Reaction Status Date / Time milnacipran (From Savella) Allergy Unknown Unknown Verified 02/09/25 08:18 tizanidine (From Zanaflex) Allergy Unknown Unknown Verified 02/09/25 08:18 Exam Constitutional Documenting provider has reviewed patient's vital signs: yes Common normals: no apparent distress, oriented x3, healthy appearing, alert and well nourished General appearance: cooperative [facility] Common normals: normocephalic, hearing grossly normal bilaterally and moist oral mucous membranes Head and scalp: normocephalic Eye Common normals: PERRL Pupil: PERRL Neck & C-Spine Common normals: full ROM General: normal visual inspection Chest Common normals: inspection of chest normal Respiratory Common normals: normal respiratory effort, no retractions and no use of accessory muscles Back & Pelvis Lumbar spine/lower back: ROM limited, pain with ROM, lumbar spinal tenderness and straight leg raise negative bilaterally Sacroiliac joints: SI joint(s) abnormal Other: positive facet loading bilatera sij positive tiffany(patricks), gaenslens, thigh thrust, compression test right > left Neuro Common normals: oriented x3 Sensorium/orientation: alert Psych Common normals: mental status grossly normal, thought process normal, cooperative, affect normal, speech normal and activity/motor behavior normal Speech: normal speech Thought process: normal thought process Results Additional Findings Additional findings: If on a controlled substance or opioids, I have checked an [place] report on this patient and there are no aberrancies noted in the prescribing history.??If on a controlled substance or opioid a drug screen was completed and reviewed within the last year, and if there has not been a drug screen completed we ordered one today to monitor higher risk, state monitored pain medication use. As part of providing excellent, safe, comprehensive care, the following was completed at our patient's visit: 1. A medication reconciliation and review to ensure accurate knowledge of current/active medications, including asking our patients to inform us about any rmuo-qbp-afykadx medications or herbal remedies/nutritional supplements/alternative remedies. 2. A review to specifically ensure our patients have had annual screening for screening for depression, screening for tobacco use, and screening for unhealthy alcohol use. For concerning screenings had a discussion with the patient, provided patient education, and recommended follow-up with primary care provider when appropriate. If patient noted with a risk of falling, they received education on strength, gait, and balance training to prevent future risk of falling. Portions of this note may have been carried over from the previous visit and updated as appropriate. Please note this office utilizes paper charting in addition to the electronic medical record. A list of current medications, vitals, and PMH is available there as the clinical staff outside of myself do not have access to [facility] charting during the clinic day operations. As part of providing quality comprehensive care the current medications, vitals, and PMH were reviewed in the paper chart. Assessment and Plan Assessment and Plan (1) Bilateral sacroiliitis: Assessment and Plan: prior bilateral SIJ injection provided >50% improvement greater than 3 months The patient has had over 3 months of moderate to severe low back and SIJ pain with functional impairment and inadequate response to conservative care including NSAIDS (unless there are contraindication such as concurrent blood thinners), multiple oral or topical pain medications, and home exercise program/physical therapy.? Patient has completed >6 weeks of guided home exercise program and/or formal physical therapy program without relief of their symptoms.? The Oswestry Disability Index was completed, and the patient scored a 46%.? The patient noted the following:?? moderate to severe pain impacting ADLs, sitting, standing, walking, sleeping, social life, travel We discussed the risks and benefits of the procedure with the patient, and we are NOT planning on using sedation as outlined in the guidelines from Medicare unless there is a documented reason that sedation would be strongly recommended.?? ?The procedure will be completed with fluoroscopic guidance.? (2) Lumbar radiculopathy: Assessment and Plan: right L4/5 l5/S1 TFESI providing >50% improvement ongoing (3) Chronic knee pain after total replacement of left knee joint: Assessment and Plan: no improvement from left genicular RFA per pt, consider scs trial (4) Myalgia, other site: Plan repeat bilateral SIJ injections under fluoroscopy, prior injections provided >50% improvement for 3 months pending ns consultation to discuss surgical intervention vs scs trial continue current medications, finding benefit to current regimen without side effects f/u 2 weeks after injection
== END 2025-02-19 09:00 | disposition home or self-care (01) ==
LOC: PM 08:59
PROVIDERS: PCP Family Medicine; Visit Provider Nurse Practitioner
DX: M46.1 Sacroiliitis, not elsewhere classified (principal); M54.16 Radiculopathy, lumbar region; M25.562 Pain in left knee; Z96.652 Presence of left artificial knee joint; M79.18 Myalgia, other site
CPT/HCPCS: G0463

== ENCOUNTER 2025-03-19 09:48 | Outpatient (OUT) | payer MEDICARE, SELFPAY ==
--- OUTSIDE RECORDS SUMMARY | 2025-03-19 09:52 | XMS_ITS | Encounter Summary ---
Author Organization [employer] tem Address [facility][id number] [address] [place] [address] Care Team Providers Care Aircrewman Name Role Phone Soila Joseph MD Primary Care Provider [phone] Encounter Details Date Type Department Care Team (Late st Contact Info) Description 10/28/2020 Orders Only [facility] [address] [place] [phone] External, Scanning Provider Social History Tobacco Use [...] Multiple labs (10/19/2020) us Scanning Provider External [facility] Final Result Performing Organization Address City/[facility] Co de Phone Number MANUALLY TRANSCRIBED RESULTS documented in this encounter Visit Diagnoses Not on filedocumented in this encounter Care Teams Aircrewman Relationship Specialty Start Date End Date Soila Joseph MD [address] [place] [address] PCP - General Family Medicine 11/18/20 documented as of this encounter
--- OUTSIDE RECORDS SUMMARY | 2025-03-19 09:52 | XMS_ITS | Clinical Summary ---
Author Organization [facility] tem Address [id number] [address] [place] [address] Care Team Providers Care Striping Machine Operator Name Role Phone Soila Joseph MD Primary Care Provider [phone] Allergies Active Allergy Reactions Criticality Noted Date Comments Morphine Hives 11/18/2020 Milnacipran 02/09/2017 Tizanidine 02/09/2017 Medications doxepin (SINEquan) 100 mg capsule Take 100 mg by mouth nightly. Active oxybutynin (DITROPAN) 5 mg tablet Take 5 mg by mouth daily. MAY TAKE 2 TABS IF NEEDED Active multivitamin-C g-hbat-qokfmyu s tablet Take 1 tablet by mouth [...] (07/12/2017): Added automatically from request for surgery [id number] Disorder of sacrum 03/27/2017 Neck pain 02/12/2017 [...] on file Insurance AETNA MEDICARE Care Teams Striping Machine Operator Relationship Specialty Start Date End Date Soila Joseph MD [address] [place], [place] [id number] PCP - General Family Medicine 11/18/20
--- OUTSIDE RECORDS SUMMARY | 2025-03-19 09:52 | XMS_ITS | Encounter Summary ---
Author Organization [facility] tem Address [facility][id number] [address] [place] [address] Care Team Providers Care Endoscopy Technician Name Role Phone Soila Joseph MD Primary Care Provider [phone] Reason for Visit * Reason Comments Med Refill Encounter Details Date Type Department Care Team (Late st Contact Info) Description 09/07/2017 Refill [facility] [address] [place] [phone] Jerrod Juan PA [address] [facility], [address] [place] [address] Social History Tobacco Use Types Packs/Day Years [...] on filedocumented in this encounter Care Teams Endoscopy Technician Relationship Specialty Start Date End Date Soila Joseph MD [address] [place] [address] PCP - General Family Medicine 11/18/20 documented as of this encounter
--- OUTSIDE RECORDS SUMMARY | 2025-03-19 09:52 | XMS_ITS | Encounter Summary ---
Author Organization [employer] [facility] tem Address [facility][id number] [address] [place] [address] Care Team Providers Care Condenser Winder Name Role Phone Soila Joseph MD Primary Care Provider [phone] Encounter Details Date Type Department Care Team (Late st Contact Info) Description 12/09/2020 Orders Only [facility] [address] [place] [phone] External, Scanning Provider Social History Tobacco Use [...] on filedocumented in this encounter Care Teams Condenser Winder Relationship Specialty Start Date End Date Soila Joseph MD [address] [place] [address] PCP - General Family Medicine 11/18/20 documented as of this encounter
--- OUTSIDE RECORDS SUMMARY | 2025-03-19 09:52 | XMS_ITS | Clinical Summary ---
Author Organization [facility] Address [address] [place] [address] Care Team Providers Care Voice Instructor Name Role Phone Unavailable Primary Care Provider [...]
--- OUTSIDE RECORDS SUMMARY | 2025-03-19 09:52 | XMS_ITS | Encounter Summary ---
Author Organization [facility] Address [facility]-[id number] [address] [place] [address] Care Team Providers Care General Road Foreman Name Role Phone Soila Joseph MD Primary Care Provider [phone] Encounter Details Date Type Department Care Team (Late st Contact Info) Description 10/28/2020 Orders Only [facility] [address] [place] [phone] External, Scanning Provider Social History Tobacco Use [...] on filedocumented in this encounter Care Teams General Road Foreman Relationship Specialty Start Date End Date Soila Joseph MD [address] [place] [address] PCP - General Family Medicine 11/18/20 documented as of this encounter
--- OUTSIDE RECORDS SUMMARY | 2025-03-19 09:52 | XMS_ITS | Encounter Summary ---
Author Organization [employer] tem Address [id number] [address] [place] [address] Care Team Providers Care Asphalt Tamping Machine Operator Name Role Phone Soila Joseph MD Primary Care Provider [phone] Encounter Details Date Type Department Care Team (Late st Contact Info) Description 12/09/2020 Orders Only [facility] [address] [place] [phone] Vicki Harrell MA BOYD (dyspnea on exertion) [...] abnormality documented in this encounter Care Teams Asphalt Tamping Machine Operator Relationship Specialty Start Date End Date Soila Joseph MD [address] [place] [address] PCP - General Family Medicine 11/18/20 documented as of this encounter
--- OUTSIDE RECORDS SUMMARY | 2025-03-19 09:52 | XMS_ITS | Encounter Summary ---
Author Organization [facility] tem Address [id number] [address] [place] [address] Care Team Providers Care Tile Machine Operator Name Role Phone Soila Joseph MD Primary Care Provider [phone] Reason for Visit * Reason Comments Med Refill Encounter Details Date Type Department Care Team (Late st Contact Info) Description 02/21/2018 Refill [facility] [address] [place] [phone] Jerrod Juan PA [address] [facility] [place] [address] Social History Tobacco Use Types Packs/Day Years [...] on filedocumented in this encounter Care Teams Tile Machine Operator Relationship Specialty Start Date End Date Soila Joseph MD [address] [place] [address] PCP - General Family Medicine 11/18/20 documented as of this encounter
--- OUTSIDE RECORDS SUMMARY | 2025-03-19 09:52 | XMS_ITS | Encounter Summary ---
Author Organization [employer] s tem Address [facility][id number] [address] [place] [address] Care Team Providers Care Orthopedic Physical Therapist Name Role Phone Soila Joseph MD Primary Care Provider [phone] Encounter Details Date Type Department Care Team (Late st Contact Info) Description 11/02/2020 Orders Only [facility] [address] [place] [phone] External, Scanning Provider Social History Tobacco Use [...] on filedocumented in this encounter Care Teams Orthopedic Physical Therapist Relationship Specialty Start Date End Date Soila Joseph MD [address] [place] [address] PCP - General Family Medicine 11/18/20 documented as of this encounter
--- OUTSIDE RECORDS SUMMARY | 2025-03-19 09:52 | XMS_ITS | Encounter Summary ---
Author Organization [employer] tem Address [facility][id number] [address] [place] [address] Care Team Providers Care Cocoa Roaster Name Role Phone Soila Joseph MD Primary Care Provider [phone] Encounter Details Date Type Department Care Team (Late st Contact Info) Description 11/22/2020 Orders Only [facility] [address] [place] [phone] External, Scanning Provider Social History Tobacco Use [...] on filedocumented in this encounter Care Teams Cocoa Roaster Relationship Specialty Start Date End Date Soila Joseph MD [address] [place] [address] PCP - General Family Medicine 11/18/20 documented as of this encounter
--- OUTSIDE RECORDS SUMMARY | 2025-03-19 09:52 | XMS_ITS | Clinical Summary ---
Author Organization [facility] Address [address] [place] [address] Care Team Providers Care Collection Systems Worker Name Role Phone Unavailable Primary Care Provider Unavailabl e Social History Tobacco Use Types Packs/Day Years Used Date Smoking Tobacco: Never Assessed [place] Safety & Environment Answer Date Rec orded [...] Info) Description 03/31/2025 10:30 AM EDT Consult [facility] [address] [facility] [place] [address] Jimbo Leavitt MD [address] [place] [address] Health Maintenance Due Date Last [...] 2024 Fall Risk Screening 12/15/2024 Influenza Vaccine (#1) 2025 HIB Vaccines Aged Out No longer [...]
--- OUTSIDE RECORDS SUMMARY | 2025-03-19 09:52 | XMS_ITS | Clinical Summary ---
Author Organization [facility] Address [address] [place] [address] Care Team Providers Care Lube Worker Name Role Phone Mihaikaterin Andrew Abad Primary Care Provider [phone] Daniel Castillo Unavailable Allergies Active Allergy Reactions Criticality Noted Date [...] Noted Date Diagnosed Date Lyme disease 10/11/2015 Encounters Date Type Department Care Team Description 02/25/2025 Transcribe Orders Referring Physician [address] [place] [phone] Daniel Castillo Left knee pain, unspecified chronicity (Primary Dx) from Last 3 Months Social History Tobacco Use Types Packs/Day Years [...] 12/15/2024 Bone Density Screening 12/15/2024 Influenza Vaccine (#1) 2025 RSV Vaccine (1 - 1-dose 75+ series) 12/15/2034 Insurance MEDICARE [place] [id number] AETNA SUPPLEMENT Care Teams Lube Worker Relationship Specialty Start Date End Date Andrew Berg [facility] [address] [place] [address] PCP - General 12/20/00 Daniel Castillo [address] [place] [address] Pain Management 02/25/25
--- OUTSIDE RECORDS SUMMARY | 2025-03-19 09:52 | XMS_ITS | Clinical Summary ---
Author Organization [employer] Address [address] [place] [address] Care Team Providers Care Auxiliary Operator Name Role Phone Soila Joseph MD Primary Care Provider [phone] Allergies Active Allergy Reactions Criticality Noted Date Comments Milnacipran Headache 11/30/2022 migraines Vancomycin Hives Low 01/29/2023 Hives, itching Tizanidine Hallucination 11/30/2022 Medications levothyroxine 112 MCG tablet Take 1 tablet by mouth daily. AM 10/02/19 23 Active metFORMIN 1000 MG tablet 2 times daily. 08/29/20 Active Cholecalciferol 250 MCG (22627 UT) capsule capsule Take by mouth daily. [...] Apply to eye as needed. Active Pancrelipase, Wcm-Lrlo-Conc, (CREON PO) Take 36,000 Units by mouth. [...] by Nasal route once for 1 dose. Stanton into the nose as directed. Call 911. [...] disturbance 0 10/10/2012 Aortic valve disorder 11/23/2010 Family History Medical History Relation Name Comments [...] - 2023-2 5 season) 2024 INFLUENZA VACCINE (#1) 2025 RSV VACCINE (1 - 1-dose 75+ series) 12/15/2034 HEP B VACCINE Aged Out No longer elig ible based on patient's age to complete this topic Medical Devices Implanted Type Area Digital Account Executive Device Identifier Shelf Expiration Date Model / Serial / Lot Patella - Knee - [id number] Implanted:Qty: 1 on 01/29/2023 by Sagar Gordon MD at [facility] Left: Knee 12/09/2027 / / [id number] Revision Pressfit Stem 12mmx 60 Implanted:Qty: 1 on 01/29/2023 by Sagar Gordon MD at [facility] Left: Knee 07/10/2032 1513-12-060 / / [id number] Revision Tibial Base Sz 2 Implanted:Qty: 1 on 01/29/2023 by Sagar Gordon MD at [facility] Left: Knee 09/09/2032 1506-40-002 / / [id number] Rev Offset Stem 2mm Implanted:Qty: 1 on 01/29/2023 by Sagar Gordon MD at [facility] Left: Knee DEPUY 01/08/2028 1513-02-000 / / [id number] Rev Distal Femoral Augment Sz 5 4mm Implanted:Qty: 1 on 01/29/2023 by Sagar Gordon MD at [facility] Left: Knee DEPUY 03/09/2032 1547-05-001 / / [id number] Rev Crs Femoral Sz 5 Left Implanted:Qty: 1 on 01/29/2023 by Sagar Gordon MD at [facility] Left: Knee DEPUY 03/09/2032 1504-40-105 / / [id number] [place]os R 1 X 40 - [id number] Implanted:Qty: 2 on 01/29/2023 by Sagar Gordon MD at [facility] Left: Knee 07/10/2027 / / [id number] [employer]os [employer]ement High-Viscosity With Gentamicin - [id number] Implanted:Qty: 1 on 01/29/2023 by Sagar Gordon MD at [facility] Left: Knee 11/07/2025 / / [id number] Insert - Knee - [id number] Implanted:Qty: 1 on 01/29/2023 by Sagar Gordon MD at [facility] Left: Knee DEPUY 06/09/2027 / / [id number] Procedures Procedure Name Priority Date/Time Associated Diagnosis Comments HEMOGLOBIN A1C Routine 01/04/2023 12:50 PM EDT Preop testing Abnormal finding of blood chemistry, unspecified from Last 3 Months or Most Recently Relevant to Health Maintenance Results * (ABNORMAL) HEMOGLOBIN A1C (01/04/2023 12:50 PM EDT) HEMOGLOBIN A1C 6.5(H) <6 % [address] Comment: NORMAL <5.7% PREDIABETES 5.7-6.4% DIABETES 6.5% OR HIGHER Estimated Average Glucose 140 mg/dL [address] Blood 01/04/2023 12:5 0 PM EDT 01/04/2023 1:03 PM EDT us Sagar Gordon MD HEMATOLOGY ORDERABLES Final Resu lt [address] [id number] from Last 3 Months or Most Recently Relevant to Health Maintenance Insurance MEDICARE AETNA HMO Advance Directives For more information, please contact: [phone] (7:30 AM - 6PM [facility], Sunday-Sunday) * Full Code (Latest Code Status on File) Date Activated Date Inactivated Comments 01/29/2023 4:58 PM Care Teams Auxiliary Operator Relationship Specialty Start Date End Date Soila Joseph MD PCP - General Family Medicine 10/20/22
--- OUTSIDE RECORDS SUMMARY | 2025-03-19 09:52 | XMS_ITS | Encounter Summary ---
Author Organization [facility] Address [id number] [address] [place] [address] Care Team Providers Care Car Sander Name Role Phone Soila Joseph MD Primary Care Provider [phone] Reason for Visit * Reason Comments Med Refill Encounter Details Date Type Department Care Team (Late st Contact Info) Description 02/21/2018 Refill [facility] [address] [place] [phone] Jerrod Juan PA [address] [facility] [place] [address] Social History Tobacco Use Types Packs/Day Years [...] on filedocumented in this encounter Care Teams Car Sander Relationship Specialty Start Date End Date Soila Joseph MD [address] [place] [address] PCP - General Family Medicine 11/18/20 documented as of this encounter
--- OUTSIDE RECORDS SUMMARY | 2025-03-19 10:10 | XMS_ITS | CCD ---
Author Organization [facility] Care Team Providers Care [employer] Inspector Name Role Phone Netta Montoya Unavailable Siva [...] Primary Care Unavailable SABINA IBARRA Consulting Unavailable REESE ., DR PAWEL Connors Admitting Unavailable REESE ., DR PAWEL Connors Attending Unavailable LINDSAY, DR NETTA Conti Primary Care Unavailable REESE [...] Primary Care Unavailable SAGAR KRAUSE Attending Unavailable JIMI, SAGAR Referring Unavailable SELF, SELF Referring Unavailable RADHA IRVIN Attending Unavailable NETTA MONTOYA Primary Care Unavailable BRANDEE, RADHA Referring Unavailable MONTOYA, NETTA Primary Care Unavailable BRANDEERADHA FRASER Attending Unavailable NETTA MONTOYA Primary Care Unavailable SELF, SELF Referring Unavailable SAGAR KRAUSE Attending Unavailable BRANDEE, RADHA Referring Unavailable LINDSAY NETTA E Primary Care Unavailable BRANDEE, RADHA Referring Unavailable NETTA MONTOYA E Primary Care Unavailable BRANDEE, RADHA Referring Unavailable MONTOYA, NETTA E Primary Care Unavailable BRANDEE, RADHA Referring Unavailable MONTOYA, NETTA E Primary Care Unavailable LAKSHMIPATHY, NARENDRANATH Referring Unava ilable NETTA MONTOYA E Primary Care Unavailable LAKSHMIPATHY, NARENDRANATH Referring Unava ilable NETTA MONTOYA E Primary Care Unavailable Netta Montoya MD [...] Attending Unavailable Lindsay LEVIN, Netta Calzada Primary [facility] Unava ilable Silke LEVIN, Chandra Nova Attending Unavailable Netta Montoya MD Primary Care Unava ilable Silke LEVIN, Andtasha Nova Attending Unavailable Netta Montoya MD Primary [facility] Unava ilable Silke LEVIN, Chandra Nova Attending Unavailable Netta Montoya MD Primary Care Unava ilable Silke LEVIN, Chandra Nova Attending Unavailable Netta Montoya MD Primary [facility] Unava ilable Andrew Berg Primary Care Provider Daniel Castillo Unavailable Allergies Allergy Classification Reported Allergen(s) Allergy Type Date of Onset Reaction(s) Facility (20 sources) milnacipran; Translations: [Savella] Drug Allergy 09-02-20 13 SEVERE HEADACHES [facility] Repository (20 sources) Morphine; Translations: [MORPHINE] Drug Allergy 11-19-19 21 Unknown, [facility] Repository (20 sources) tiZANidine; Translations: [Zanaflex] Drug Allergy 09-02-20 13 Hallucinations [facility] Repository (17 sources) milnacipran; Translations: [MILNACIPRAN] Drug Allergy 02-10-20 17 Headache [facility] (17 sources) tiZANidine; Translations: [TIZANIDINE] Drug Allergy 02-10-20 17 Hallucination [facility] (2 sources) Morphine Drug Allergy [facility] Repository (20 sources) Vancomycin Drug Allergy 01-30-20 23 [facility] (7 sources) Allergies Reconciled Propensity to adverse reactions Unknown [email or web address] Other (7 sources) Savella *PSYCHOTHERAPEU TIC AND NEUROLOGICAL AGENTS Propensity to adverse reactions Unknown [email or web address] Other (5 sources) Savella *PSYCHOTHERAPEU TIC AND Allergy to substance 10-24-19 24 [facility] Comment on above: Free Text Allergy: S avella *PSYCHOTHERAPEUTIC AND NEUROLOGICAL AGENTS (1 source) ALLERGIES NOT ON FILE; Translations: [ALLERGIES NOT ON FILE] Propensity to adverse reactions (disorder) [facility] Repository (1 source) tiZANidine Drug Allergy 10-11-19 16 Other: See Comments [facility] Medications Current Medications Medication Drug Class(es) Dates [...] the day with plain water Orally Active ALOE CAPE MISC (1 source) ALOE CAPE MISC Active amylase 942526 unt / lipase 28937 unt / protease 699732 unt delayed release oral capsule (14 sources) Start: 01-16-2024 take 2 capsules by mouth three times daily at mealtime, then take 1 capsule by mouth four times daily Fpnmtn-Rcxssoly-Abz lase (Creon) 36,000-114,000- 180,000 unit capsule,delayed release(DR/EC) Active CAP PO January 16, 2024 12:00am FreeTextSi capsules three times a day with meals and 1 capsule with a snack Orally four times a day; Note: Source Status: TakingPLEASE CHECK ALLERGIES; Refills: 5; Provider: Ariadne Briceno Start: 01-25-2023 take 2 capsules by [facility] three times daily at mealtime, then take 1 capsule by mouth four times daily Creon [id number] UNIT 2 capsules three times a day with meals and 1 capsule with a snack Orally four times a day for 30 days PLEASE CHECK ALLERGIES January, Active ascorbic acid 1000 mg oral tablet (12 sources) Vitamin C Start: 10-24-2023 take 1 tablet by mouth twice daily Ascorbic Acid (Vitamin C) 1,000 mg tablet Active 1 TAB PO Twice daily October 24, 2023 1:00am FreeTextSi tablet Orally TWICE A DAY; Note: Source Status: Taking; Provider: Lindsay Cm ( ) take 1 tablet by mouth once alannah y Ascorbic Acid 1,000 mg tablet Take 1,000 mg by mouth once daily. Active aspirin 81 mg delayed release oral [...] 1 PO) Take by mouth. 0 Active BEARBERRY LEAF EXTRACT (UVA URSI LEAF FLUID EXTRACT [facility] [place]) (1 source) BEARBERRY LEAF E XTRACT (UVA URSI LEAF FLUID EXTRACT [facility]) Active biotin 10 mg oral tablet (2 sources) Biotin 87548 MCG tablet Take by mouth. 0 Active [...] day Active cholecalciferol 0.025 mg oral capsule (16 sources) Vitamin D Start: 024 Cholecalciferol (Vitamin D3) 25 mcg (1,000 unit) capsule Active PO October 24, 2023 1:00am FreeTextSi/2 DAILY IN SUMMER Orally Once a day; Note: Source Status: Taking; Provider: Lindsay Cm ( ) Cholecalciferol, Vitamin D3, 10,000 unit cap Take by mouth. Active Cholecalciferol 250 MCG (44675 UT) capsule capsule Take by mouth daily. Active Cholecalciferol 250 MCG (39554 UT) capsule capsule Take by mouth. 0 [...] 20 MG PO Three times daily June 23, 2024 12:00am July 17, 2024 3:33pm Start: 04-21-2024 End: 07-17-2024 take 1 capsule by mouth twice daily as needed for pain Dicyclomine 10 mg capsule Discontinued 10 MG PO Twice daily as needed for abdominal pain 60 April 21, 2024 12:00am July 17, 2024 3:33pm take 1 capsule by [facility] every eight hours Dicyclomine HCl 10 MG 1 capsules Orally Three times a day Active take 1 tablet by [facility] every six hours Dicyclomine 20 MG tablet Take 1 tablet by mouth every 6 hours. 0 Active docusate sodium 100 mg oral capsule (19 sources) Start: 04-21-2024 End: 04-21-2024 take 1 capsule by mouth once daily Docusate Sodium (Colace) 100 mg capsule Active 100 MG PO Daily 30 April 21, 2024 10:59am Start: 01-29-2023 take 1 capsule by [facility] twice daily Docusate 100 MG capsule Take 1 capsule by mouth 2 times daily. 60 capsule 01/29/2023 Active take 1 capsule by [facility] twice daily Docusate (Stool Softener) 100 MG capsule Take 1 capsule by mouth 2 times daily. 0 Active estrogens, conjugated (shelter) 0.625 mg/ml vaginal cream (5 sources) Estrogen Premarin 0.625 M G/GM as directed Vaginal Active FLAXSEED OIL (OMEGA 3 ORAL) (1 source) FLAXSEED OIL (OM EGA 3 ORAL) Take by mouth. Active FLUoxetine 40 mg oral capsule (5 [...] 8 hrs Active take 1 tablet by [facility] three times daily at mealtime as needed [...] as Directed December 12, 2023 11:00pm Iodine (6 sources) IODINE ORAL Take by mouth. Active Iodine Active Lactobacillus acidophilus (1 source) LACTOBACILLUS AC IDOPHILUS (MORE-DOPHILUS ORAL) Take by mouth. Active lifitegrast 50 mg/ml ophthalmic solution (18 [...] tablet by mouth daily. 0 Active Multivitamin capsule (1 source) take 1 capsule by mouth once daily Multivitamin capsule Take 1 capsule by mouth once daily. Active Multivitamin preparation (5 sources) Multivitamin Act [...] by Nasal route once for 1 dose. [place] into the nose as directed. Call 911. If no response in 2 minutes use a new nasal spray in other nostril. Repeat until help arrives. 1 Each 01/29/2023 Active [place] 3 (5 sources) [place] 3 Active omeprazole 40 mg delayed release [...] daily. Active take 1 capsule by mo [facility] once daily Omeprazole 10 [...] 21, 2024 11:00am take 1 tablet by [facility] three times daily as needed Oxybutynin Chloride [...] 2 MG/1.5ML as directed Subcutaneous Active Pancrelipase, Wkj-Zfxl-Vbrt, (CREON PO) (7 sources) take 1 tablet by mouth once daily Pancrelipase, Zoq-Quxj-Zcoc, (CREON PO) Take 36,000 Units by mouth. 2 tablet by mouth with each meal, 1 tablet by mouth with 1 snack daily Active take 1 tablet by mouth once alannah y Pancrelipase, Cqr-Nmot-Cuwh, (CREON PO) Take 36,000 Units by mouth. [...] Formula Probiotic) 10 billion cell capsule Active 60104 MMU CELLS PO Daily April 21, 2024 12:00am Start: 04-21-2024 take 10 capsules by mouth once daily Saccharomyces Boulardii (Resistance Formula Probiotic) 10 billion cell capsule Active 30371 MMU CELLS PO Daily April 20, 2024 [...] (15 sources) Stool Softener A ctive thyroid (shelter) 65 mg oral tablet (6 sources) take 2 tablets by mo uth once daily Thyroid, Pork, 65 mg tab Take 130 mg by mouth once daily. Active Nature-Throid Ac tive Tumeric (5 sources) Start: [...] tablet Take by mouth. 0 Active vitamin b12 5 mg sublingual tablet (19 sources) Vitamin B12 cyanocobalamin, vitamin B-12, 5,000 mcg subl Dissolve under the tongue. Active Vitamin B12 Acti ve vitamin b6 100 [...] December 26, 2024 10:11am Start: 01-29-2024 End: 06-03-2024 take 1 tablet by mouth twice daily [...] daily as needed for cough 09 07January 29, 2024 12:00am February 18, 2024 10:32am [...] mg/ml oral solution (5 sources) Phenothiazine, Uncompetitive V-sfaodk-B-aspartat e Receptor Antagonist, Sigma-1 Agonist Start: 01-23-2024 [...] Provider: Lindsay Conti take 1 tablet by [facility] every twenty-four hours Levothyroxine Sodium 112 MCG [...] 20, 2024 11:00pm September 30, 2024 1:56pm MAGNESIUM ORAL T thomas by mouth. Active Magnesium Active mesalamine 1200 mg delayed release oral tablet (20 sources) Aminosalicylate Start: 04-21-2024 End: 07-29-2024 take 1 tablet by mouth once daily Mesalamine 1.2 gram tablet,delayed release (DR/EC) Discontinued 1.2 GM PO Daily April 21, 2024 12:00am July 29, 2024 10:37am Start: 01-18-2023 take 4 tablets by [facility] every twenty-four hours Mesalamine 1.2 GM 4 tablets Orally Once a day for 30 days January, Active Start: 01-18-2023 take 4 tablets by mo [facility] every twenty-four hours Mesalamine 1.2 GM [...] Lindsay Conti methylPREDNISolone 4 mg oral tablet (11 sources) Corticosteroid Start: 01-23-2024 End: 02-11-2024 take 1 tablet by mouth once Methylprednisolone (Medrol (Marc)) 4 mg tablets,dose pack Discontinued 0 PO per package directions 21 6 January 23, 2024 12:00am February 11, 2024 [...] Other intermediate (current) drug therapy; Translations: [OTH LONG-TERM CURRENT DRUG THERAPY] Onset: 3 Episodic Other [...] specified disorders of kidney and ureter] Onset: Chronic Other gastrointestinal disorders (5 sources) Irritable bowel syndrome; Translations: [Mixed irritable bowel syndrome] 08-29-2024 Chronic Other gastrointestinal disorders (8 sources) Mixed irritable bowel syndrome; Translations: [Irritable bowel syndrome] Onset: 5 08-29-2024 Chronic Other gastrointestinal disorders (20 sources) Diarrhea; Translations: [Diarrhea, unspecified] Episodic Other gastrointestinal disorders (5 sources) Diarrhea, unspecified; Translations: [DIARRHEA UNSPECIFIED] Onset: Episodic Other gastrointestinal disorders (5 sources) Constipation [...] Translations: [Pain in right knee] Episodic Other non-traumatic joint disorders (1 source) Pain in left knee; Translations: [Pain in joint, lower leg] 02-25-2025 Episodic Other nutritional; endocrine; and metabolic disorders [...] [Nontoxic single thyroid nodule] Onset: 8 Chronic Unclassified (2 sources) Left knee pain, unspecified chronicity 02-25-2025 Past or Other Problems Problem Classification Problem [...] Test Name Value Interpretation Reference Range Facility 36on 02-03-2025 36 [employer] re ps notified. [facility] 36on 01-29-2025 36 Patient called back, appt scheduled for 03/31/2025 at 1030. [facility] X-ray reportOrdered By: David Sims on 12-26-2024 Study report [facility] Main [address] [address] XRay Report Signed Patient: Emily Macias MR#: [id number] : 1960 Acct:[id number] Age/Sex: 64 / F ADM Date: 5 Loc: XD Room: Type: REG CLI Attending Dr: Jb Grady STRATEGIC INTELLIGENCE OFFICER Copies to: Jb Grady APRN~ Ordering Provider: [...] CONSTIPATION. Impression dictated by: Bar Sims Jr., Bruce12/26/2024 1:42 PM Dictation Location: [place] [address] Transcribed By: [facility] 12/26/24 1342 Dictated By: Bar Sims Jr, DO 12/26/24 1342 Signed By: 12/26/24 1342 [facility] XR KUBon 12-26-2024 [address] [address] XRay Report Signed Patient: Emily Macias MR#: [id number] : 1960 Acct:[id number] Age/Sex: 64 / F ADM Date: 12/26/24 Loc: XD Room: Type: REG CLI Attending Dr: Jb Grady STRATEGIC INTELLIGENCE OFFICER Copies to: Jb Grady APRN Ordering Provider: [...] Sims Jr., D.OMonalisa12/26/2024 1:42 PM Dictation Location: [place] [address] Transcribed By: [facility] 12/26/24 1342 Dictated By: Bar Sims Jr, DO 12/26/24 1342 Signed By: 12/26/24 1342 Normal [facility] Basophils Auto (Bld) [#/Vol] on 11-10-2024 Basophils (Bld) [#/Vol] Automated basophil count 0.0-0.1 [facility] Basophils/100 WBC Auto (Bld) on 11-10-2024 Basophils/100 WBC (Bld) Automated basophil % 0.2-2.0 [facility] Eosinophils/100 WBC Auto (Bl d)on 11-10-2024 Eosinophils/100 WBC (Bld) Automated eosinophil % 0.9-7.0 [facility] Erythrocyte distribution wid th Auto (RBC) [Ratio]on 11-10-2024 Erythrocyte distribution width (RBC) [Ratio] Erythrocyte distribution width [Ratio] by Automated count 11.0-15.0 [facility] Estimated glomerular filtrat ion rate (GFR) non- Americanon 11-10-2024 GFR/1.73 sq M.predicted among non-blacks MDRD (S/P/Bld) [Vol rate/Area] Estimated glomerular filtration rate (GFR) non- >=60 mL/min/1.73m 2 [facility] Globulin Calc (S) [Mass/Vol] on 11-10-2024 Globulin (S) [Mass/Vol] Serum globulin measurement by calculation (mass/volume) [facility] Hematocrit Auto (Bld) [Volum e fraction]on 11-10-2024 Hematocrit (Bld) [Volume fraction] Hematocrit [Volume Fraction] of Blood by Automated count 36.0-48.0 [facility] Hemoglobin [Mass/volume] in Bloodon 11-10-2024 Hemoglobin (Bld) [Mass/Vol] Hemoglobin [Mass/volume] in Blood 12.0-16.0 [facility] Laboratory - Chemistry and C hemistry - challengeon 11-10-2024 Albumin [Mass/Vol] 3.7 g/dL 3.4-5.0 [facility] ALP [Catalytic activity/Vol] 81 U/L 46-116 [facility] ALT [Catalytic activity/Vol] 23 U/L 14-59 [facility] AST [Catalytic activity/Vol] 18 U/L 15-37 [facility] Bilirubin [Mass/Vol] 0.3 mg/dL 0.2-1.0 [facility] Calcium [Mass/Vol] 9.6 mg/dL 8.5-10.1 [facility] Chloride [Moles/Vol] 105 mmol/L 98-107 [facility] CO2 [Moles/Vol] 30.0 mmol/L 21.0-32.0 [facility] Creatinine [Mass/Vol] 0.80 mg/dL 0.55-1.02 [facility] GFR/1.73 sq M.predicted MDRD (S/P/Bld) [Vol rate/Area] mL/min/{1.73_m2} >=60 mL/min/1.73m 2 [facility] Glucose [Mass/Vol] 110 mg/dL High 74-106 [facility] Potassium [Moles/Vol] 4.9 mmol/L 3.5-5.1 [facility] Protein [Mass/Vol] 7.1 g/dL 6.4-8.2 [facility] Sodium [Moles/Vol] 144 mmol/L 136-145 [facility] Urea nitrogen [Mass/Vol] 21.0 mg/dL High 7.0-18.0 [facility] Urea nitrogen/Creatinine [Mass ratio] 26.3 mg/mg [facility] Laboratory - Hematology and Cell countson 11-10-2024 Immature granulocytes/100 WBC (Bld) 0.3 % 0.0-0.5 [facility] Leukocytes [#/volume] correc penelope for nucleated erythrocytes in Blood by Automated counon 11-10-2024 WBC corrected for nucl RBC Auto (Bld) [#/Vol] Leukocytes [#/volume] corrected for nucleated erythrocytes in Blood by Automated coun 4.0-11.0 [facility] Lymphocytes Auto (Bld) [#/Vo l]on 11-10-2024 Lymphocytes (Bld) [#/Vol] Lymphocytes [#/volume] in Blood by Automated count 1.2-3.8 [facility] Lymphocytes/100 WBC Auto (Bl d)on 11-10-2024 Lymphocytes/100 WBC (Bld) Lymphocytes/100 leukocytes in Blood by Automated count 20.5-60.0 [facility] MCH Auto (RBC) [Entitic mass ]on 11-10-2024 MCH (RBC) [Entitic mass] MCH [Entitic mass] by Automated count 26.7-34.0 [facility] MCHC Auto (RBC) [Mass/Vol]on 11-10-2024 MCHC (RBC) [Mass/Vol] MCHC [Mass/volume] by Automated count 29.9-35.2 [facility] MCV Auto (RBC) [Entitic vol] on 11-10-2024 MCV (RBC) [Entitic vol] MCV [Entitic volume] by Automated count 81.0-99.0 [facility] Monocytes Auto (Bld) [#/Vol] on 11-10-2024 Monocytes (Bld) [#/Vol] Automated blood monocyte count 0.3-0.8 [facility] Monocytes/100 WBC Auto (Bld) on 11-10-2024 Monocytes/100 WBC (Bld) Automated monocyte % 1.7-12.0 [facility] Neutrophils Auto (Bld) [#/Vo l]on 11-10-2024 Neutrophils (Bld) [#/Vol] Neutrophils [#/volume] in Blood by Automated count 1.4-6.5 [facility] Neutrophils/100 WBC Auto (Bl d)on 11-10-2024 Neutrophils/100 WBC (Bld) Automated neutrophil % 43.0-75.0 [facility] No Panel Informationon 11-10 Eosinophils # (Auto) 0.2 10 3/uL 0.0-0.7 [facility] Immature Granulocyte # (Auto) 0.02 10 3/uL 0.00-0.03 [facility] Platelet mean volume Auto (B ld) [Entitic vol]on 11-10-2024 Platelet mean volume (Bld) [Entitic vol] Platelet mean volume [Entitic volume] in Blood by Automated count 9.5-13.5 [facility] Platelets Auto (Bld) [#/Vol] on 11-10-2024 Platelets (Bld) [#/Vol] Platelets [#/volume] in Blood by Automated count 150-450 [facility] RBC Auto (Bld) [#/Vol]on RBC (Bld) [#/Vol] Erythrocytes [#/volume] in Blood by Automated count 4.20-5.40 [facility] Serum or plasma albumin/glob ulin mass ratioon 11-10-2024 Albumin/Globulin [Mass ratio] Serum or plasma albumin/globulin mass ratio [facility] Serum or plasma anion gap de terminationon 11-10-2024 Anion gap [Moles/Vol] Serum or plasma an ion gap determination [facility] Campy coli+jejuni BD MaxOrde red By: Jb Grady on 09-30-2024 C. coli+jejuni tuf gene DAISY+probe Ql (Stl) Campy coli+jejuni BD Max Negative [facility] Comment on above: Campylobacter test i ncludes C. jejuni and C. coli. Clostridioides difficile tox in B tcdB gene [Presence] in Stool by DAISY with probe deteOrdered By: Jb Grady on 09-30-2024 C. difficile toxin B tcdB gene DAISY+probe Ql (Stl) Clostridioides difficile toxin B tcdB gene [Presence] in Stool by DAISY with probe dete Negative [facility] Comment on above: Testing performed by RT-PCR Clostridium Difficileon 09-11 Clostridium Difficile Negative Normal Negative [facility] Comment on above: Result Comment: Test ing performed by RT-PCR PERFORMED BY: [facility] [address] [place] [address] PATHOLOGIST RESIDENTIAL LEASING AGENT BENNY ARAUJO M.D. Performed By: #### S TCYRPTOAG, GIARDIA #### [facility] , #### CDT, ENT BACT PANEL #### [address] Cryptosporidium Antigen Stoo kristofer 09-30-2024 Cryptosporidium Antigen Stool Negative Normal Negative [facility] Comment on above: Order Comment: SOURC E OF SPECIMEN: STOOL Performed By: #### S TCYRPTOAG, GIARDIA #### [facility] , #### CDT, ENT BACT PANEL #### [address] Cryptosporidium sp Ag [Prese nce] in Stool by ImmunoassayOrdered By: Jb Grady on 09-30-2024 Cryptosporidium sp Ag IA Ql (Stl) Cryptosporidium sp Ag [Presence] in Stool by Immunoassay Negative [facility] Giardia Lamblia Ag EIA Stool on 09-30-2024 Giardia Lamblia Ag EIA Stool Negative Normal Negative [facility] Comment on above: Order Comment: SOURC E OF SPECIMEN: STOOL Result Comment: Perf ormed at: [employer] [facility] [address] [id number] [place] Smoker: Tra Bay PhD, Phone: [phone] PERFORMED BY: [place] [address] PATHOLOGIST RESIDENTIAL LEASING AGENT BENNY ARAUJO M.D. Performed By: #### S TCYRPTOAG, GIARDIA #### [facility] , #### CDT, ENT BACT PANEL #### [address] Giardia lamblia Ag [Presence ] in Stool by ImmunoassayOrdered By: Jb Grady on 09-30-2024 G. lamblia Ag IA Ql (Stl) Giardia lamblia Ag [Presence] in Stool by Immunoassay Negative [facility] Comment on above: Performed at: [facility] [address] [id number] Director: Tra Bay PhD, Phone: [phone] Salmonellosis BD MaxOrdered By: Jb Grady on 09-30-2024 Salmonella sp spaO gene DAISY+probe Ql (Stl) Salmonella sp spaO gene [Presence] in Stool by DAISY with probe detection Negative [facility] Comment on above: Testing performed by RT-PCR Shigella Tox 1+2 BD MaxOrder ed By: Jb Grady on 09-30-2024 E. coli stx1+stx2 genes DAISY+probe Ql (Stl) Escherichia coli Stx1 and Stx2 toxin stx1+stx2 genes [Presence] in Stool by DAISY with Negative [facility] Shigellosis BD MaxOrdered By : Jb Grady on 09-30-2024 Shigella species+EIEC invasion plasmid antigen H ipaH gene DAISY+probe Ql (Stl) Shigella species+EIEC invasion plasmid antigen H ipaH gene [Presence] in Stool by DAISY Negative [facility] Comment on above: Shigella sp. test in cludes Shigella species and Enteroinvasive E. coli (EIEC). Stool Bacterial Panelon 09-11 Campylobacter Negative Normal Negative [facility] Comment on above: Result Comment: Camp ylobacter test includes C. jejuni and C. coli. Performed By: #### S TCYRPTOAG, GIARDIA #### [facility] , #### CDT, ENT BACT PANEL #### [address] Salmonella Species Negative Normal Negative [facility] Comment on above: Result Comment: Test ing performed by RT-PCR PERFORMED BY: [place] [address] PATHOLOGIST RESIDENTIAL LEASING AGENT BENNY ARAUJO M.D. Performed By: #### S TCYRPTOAG, GIARDIA #### [facility] , #### CDT, ENT BACT PANEL #### [address] Shiga Toxin (E coli O157+oth) Negative Normal Negative [facility] Comment on above: Performed By: #### S TCYRPTOAG, GIARDIA #### [facility] , #### CDT, ENT BACT PANEL #### [address] Shigella Species Negative Normal Negative [facility] Comment on above: Result Comment: Shig brandy sp. test includes Shigella species and Enteroinvasive E. coli (EIEC). Performed By: #### S TCYRPTOAG, GIARDIA #### [facility] , #### CDT, ENT BACT PANEL #### [facility] [address] [place] [id number] [facility] 36on 09-18-2024 36 LVM for pt to call clinic to schedule consult with Dr. Mccord for Surgical intervention vs SCS. Please let promotion writer or Nayana Crenshaw MA know when scheduled so we may notify [employer] reps. Normal [facility] Telephoneon 09-18-2024 Telephone [phone] Emily Macias 1960 F Date Provider Department Center 09/18/2024 [facility] [address] No family history on file Reason for Visit and Comments: REFERRAL CONSULT [Other] Normal [facility] XR KUBon 08-29-2024 XR KUB [facility] Main [place] [address] [place] [id number] XRay Report Signed Patient: Emily Macias MR#: [id number] : 1960 Acct:[id number] Age/Sex: 63 / F ADM Date: 08/29/24 Loc: Room: Type: [facility] Attending Dr: Jb Grady APRN Copies [...] Sims Jr., D.OMonalisa08/29/2024 3:27 PM Dictation Location: [place] [address] Transcribed By: FLYNN 08/29/241526 Dictated By: Bar Sims Jr, 08/29/241525 Signed By: 08/29/241526 Normal [facility] HbA1c HPLC (Bld) [Mass fract ion]on 07-29-2024 HbA1c (Bld) [Mass fraction] Hemoglobin A1c/Hemoglobin.total in Blood by HPLC [facility] Estimated glomerular filtrat ion rate (GFR) non- Americanon 07-17-2024 GFR/1.73 sq M.predicted among non-blacks MDRD (S/P/Bld) [Vol rate/Area] Estimated glomerular filtration rate (GFR) non- >=60 mL/min/1.73m 2 [facility] Globulin Calc (S) [Mass/Vol] on 07-17-2024 Globulin (S) [Mass/Vol] Serum globulin measurement by calculation (mass/volume) [facility] Iron binding capacity [Mass/ volume] in Serum or Plasmaon 07-17-2024 Iron binding capacity [Mass/Vol] Iron binding capacity [Mass/volume] in Serum or Plasma 250.0-450.0 [facility] Iron saturation [Mass Fracti on] in Serum or Plasmaon 07-17-2024 Iron saturation [Mass fraction] Iron saturation [Mass Fraction] in Serum or Plasma [facility] Laboratory - Chemistry and C hemistry - challengeon 07-17-2024 Albumin [Mass/Vol] 3.8 g/dL 3.4-5.0 [facility] ALP [Catalytic activity/Vol] 81 U/L 46-116 [facility] ALT [Catalytic activity/Vol] 21 U/L 14-59 [facility] AST [Catalytic activity/Vol] 18 U/L 15-37 [facility] Bilirubin [Mass/Vol] 0.4 mg/dL 0.2-1.0 [facility] Calcium [Mass/Vol] 9.2 mg/dL 8.5-10.1 [facility] Chloride [Moles/Vol] 105 mmol/L 98-107 [facility] CO2 [Moles/Vol] 24.1 mmol/L 21.0-32.0 [facility] Cobalamin (Vitamin B12) [Mass/Vol] 887 pg/mL 232-1245 [facility] Comment on above: Performed at: - [address] [id number] Director: Tra Bay PhD, Phone: [phone] Creatinine [Mass/Vol] 0.84 mg/dL 0.55-1.02 [facility] Ferritin [Mass/Vol] 63.0 ng/mL 8.0-252.0 [facility] Free T4 [Mass/Vol] 1.23 ng/dL 0.76-1.46 [facility] GFR/1.73 sq M.predicted MDRD (S/P/Bld) [Vol rate/Area] mL/min/{1.73_m2} >=60 mL/min/1.73m 2 [facility] Glucose [Mass/Vol] 150 mg/dL High 74-106 [facility] Iron [Mass/Vol] 63.0 ug/dL 50.0-170.0 [facility] Potassium [Moles/Vol] 4.2 mmol/L 3.5-5.1 [facility] Protein [Mass/Vol] 7.1 g/dL 6.4-8.2 [facility] Sodium [Moles/Vol] 141 mmol/L 136-145 [facility] TSH Qn 0.749 m[IU]/L 0.358-3.740 [facility] Urea nitrogen [Mass/Vol] 21.0 mg/dL High 7.0-18.0 [facility] Urea nitrogen/Creatinine [Mass ratio] 25.0 mg/mg [facility] No Panel Informationon 07-17 25-Hydroxy Vitamin D Total 80.1 ng/mL [facility] Comment on above: <20 ng/mL Vit D defi cient20-<30 ng/mL Vit D [id number] ng/mL Vit D sufficient>100 ng/mL Potential Toxicity Serum or plasma albumin/glob ulin mass ratioon 07-17-2024 Albumin/Globulin [Mass ratio] Serum or plasma albumin/globulin mass ratio [facility] Serum or plasma anion gap de terminationon 07-17-2024 Anion gap [Moles/Vol] Serum or plasma an ion gap determination [facility] No Panel Informationon 02-26 Radiology Study observation (narrative) [facility] LARGE JOINT/BURSA INJECTION AND/OR ASPIRATION: [...] complications The patient was prepped with Chloraprep. [facility] Sagar Krause MD 02/27/2024 1:38 [...] MG/ML The patient was prepped with Betadine. [facility] No Panel Informationon 02-20 [facility] Glucose Glucometer (BldC) [M ass/Vol]Ordered By: Siva Ron on 05-09-2023 Glucose [Mass/Vol] 136 mg/dL [facility] Comment on above: Random Glucose Refer ence Range is dependent on time and content of last meal. Glucose of more than 200 mg/dL in a nonstressed, ambulatory subject supports the diagnosis of Diabetes Mellitus. No Panel InformationOrdered By: Siva Ron on 05-09-2023 Bedside Glucose Comment Glu2: cleaned meter [facility] PANCREATIC ELASTASE FECALon 01-22-2023 Pancreatic Elastase, Fecal 128 ug Elast./g Critically low >200 [facility] Comment on above: Result Comment: Jihan re Pancreatic Insufficiency: <100 Moderate Pancreatic Insufficiency: 100 - 200 Normal: >200 Performed By: #### H PYLORI #### [facility] [address] [place] [address] [address] Irene Cedillo LACTOFERRIN FECAL QUANTon Lactoferrin, Fecal, Quant. <1.00 Normal 0.00-7.24 [facility] Comment on above: Result Comment: Re [...] (IBS). Performed By: #### S EDR #### [facility] [address] [place] [address] [address] Irene Cedillo CALPROTECTIN, FECALon 2022 Calprotectin, Fecal 139 ug/g Critically high 0-120 [facility] Comment on above: Result Comment: Conc entration Interpretation Follow-Up <16 - 50 ug/g Normal None >50 -120 ug/g Borderline Re-evaluate in 4-6 weeks >120 ug/g Abnormal Repeat as clinically indicated Performed By: #### H PYLORI #### [facility] [address] [place] [address] [address] Irene Cedillo PANCREATIC ELASTASE FECALon 01-15-2023 Pancreatic Elastase, Fecal 161 ug Elast./g Critically low >200 [facility] Comment on above: Result Comment: Jihan re Pancreatic Insufficiency: <100 Moderate Pancreatic Insufficiency: 100 - 200 Normal: >200 Performed By: #### A NTI-NICOLLE #### [facility] [address] [place] [address] Dr. Irene Cedillo TSHon 01-09-2023 TSH 1.630 uIU/mL Normal 0.358-3.740 [facility] Comment on above: Performed By: #### T SH #### [facility] [address] [place] [address] Dr. Irene Cedillo ANTIHISTIONE ANTIBODIESon Anti-histone Abs 0.5 Units Normal 0.0-0.9 [facility] Comment on above: Result Comment: Nega tive <1.0 Weak Positive 1.0 - 1.5 Moderate Positive 1.6 - 2.5 Strong Positive >2.5 Performed By: #### C K, CRP #### [facility] [address] [place] [address] Dr. Irene Cedillo LARGE JOINT/BURSA INJECTION AND/OR [...] complications The patient was prepped with Betadine. [facility] Radiology Study observation (narrative) [facility] US PELVIS AND TRANSVAGon US PELVIS AND TRANSVAG EXAM: US PELVIS AND TRANSVAG HISTORY: Left lower quadrant pain COMPARISON: None. TECHNIQUE: Pelvic sonography was performed utilizing grayscale and color Doppler technique. FINDINGS/ IMPRESSION: 1. Hysterectomy. 2. Ovaries not visualized. 3. No adnexal mass. 4. No significant free fluid. Electronically authenticated by: BRI BERGER Date: 2022-11-10 15:54 Normal [facility] LUPUS ANTICOAGULANT PROFILEo n 10-27-2022 Anticardiolipin Ab, IgG <10 Normal [facility] Comment on above: Result Comment: Refe rence Range: Negative: <15 Indeterminate: 15 - 20 Low to medium positive: >20 - 80 High positive: >80 Performed By: #### L UPUSAC #### [facility] [address] [place] [address] [address] Irene Cedillo Anticardiolipin Ab, IgM <10 Normal [facility] Comment on above: Result Comment: Refe rence Range: Negative: <13 Indeterminate: 13 - 20 Low to medium positive: >20 - 80 High positive: >80 Performed By: #### L UPUSAC #### [facility] [address] [address] [address] Irene Cedillo APTT 1:1 XEROX MACHINE OPERATOR NIY Normal [facility] Comment on above: Result Comment: Test ing Not Indicated This test was developed and its performance characteristics determined by [facility]. It has not been cleared or approved by the [place] Food and Drug Administration. Performed By: #### L UPUSAC #### [facility] [address] [place] [address] [address] Irene Cedillo APTT 1:1 Saline NIY Normal [facility] Comment on above: Result Comment: Test ing Not Indicated This test was developed and its performance characteristics determined by [facility]. It has not been cleared or approved by the [place] Food and Drug Administration. Performed By: #### L UPUSAC #### [facility] [address] [place] [address] [address] Irene Cedillo aPTT Coag (Bld) [Time] 23.0 s [facility] Comment on above: Result Comment: This test has not been validated for monitoring unfractionated heparin therapy. aPTT-based therapeutic ranges for unfractionated heparin therapy have not been established. Consider ordering Heparin anti-Xa (unfractionated). Reference Range: 18 years and older: 22.9 - 30.2 Performed By: #### L UPUSAC #### [facility] [address] [address] [address] Irene Cedillo Beta-2 Glycoprotein I, IgA <10 Normal [facility] Comment on above: Result Comment: The reference interval reflects a 3SD or 99th percentile interval. Reference Range: Negative: <26 Performed By: #### L UPUSAC #### [facility] [address] [place] [address] [address] Irene Cedillo Beta-2 Glycoprotein I, IgG <10 Normal [facility] Comment on above: Result Comment: The reference interval reflects a 3SD or 99th percentile interval. Reference Range: Negative: <21 Performed By: #### L UPUSAC #### [facility] [address] [place] [address] [address] Irene Cedillo Beta-2 Glycoprotein I, IgM <10 Normal [facility] Comment on above: Result Comment: The reference interval reflects a 3SD or 99th percentile interval. Reference Range: Negative: <33 Performed By: #### L UPUSAC #### [facility] [address] [place] [address] [address] Irene Cedillo DRVVT Confirm Seconds NIY Normal [facility] Comment on above: Result Comment: Test ing Not Indicated Performed By: #### L UPUSAC #### [facility] [address] [place] [address] Dr. Irene Cedillo DRVVT Ratio NIY Normal [facility] Comment on above: Result Comment: Test ing Not Indicated Performed By: #### L UPUSAC #### [facility] [address] [place] [address] [address] Irene Cedillo DRVVT Screen Seconds 33.2 sec Normal [facility] Comment on above: Result Comment: Refe rence Range: <= 47.0 Performed By: #### L UPUSAC #### [facility] [address] [place] [address] Dr. Irene Cedillo Hexagonal Phospholipid Neutral 0 sec Normal [facility] Comment on above: Result Comment: This value is NEGATIVE. This is a qualitative assay and is therefore reported as positive for lupus anticoagulant or negative. The quantitative value is provided as an aid in diagnosis. Reference Range: 0 - 11 Performed By: #### L UPUSAC #### [facility] [address] [place] [address] Dr. Irene Cedillo INR Coag (PPP) [Relative time] 0.9 {INR} Normal [facility] Comment on above: Result Comment: Refe rence Range: >1 month: 0.9 - 1.2 Performed By: #### L UPUSAC #### [facility] [address] [place] [address] Dr. Irene Cedillo LAC Interpretation Comment Normal [facility] Comment on above: Result Comment: A arelis pus anticoagulant is not detected. All antiphospholipid antibodies evaluated are normal. As antibody titers may fluctuate with time, repeat testing may be indicated. Please contact [facility] if further clarification is needed. Performed By: #### L UPUSAC #### [facility] [address] [place] [address] Dr. Irene Cedillo Platelet Neutralization 0.0 sec Normal [facility] Comment on above: Result Comment: Refe rence Range: 0.0 - 3.0 This test was developed and its performance characteristics determined by [employer]. It has not been cleared or approved by the Food and Drug Administration. Performed By: #### L UPUSAC #### [facility] [address] [place] [address] Dr. Irene Cedillo PT Coag (PPP) [Time] 10.0 s Normal [facility] Comment on above: Result Comment: Refe rence Range: 18 years and older: 9.1 - 12.0 Performed By: #### L UPUSAC #### [facility] [address] [place] [address] Dr. Irene Cedillo Thrombin Time 15.5 sec Normal [facility] Comment on above: Result Comment: Refe rence Range: 0.0 - 23.0 Performed By: #### L UPUSAC #### [facility] [address] [place] [address] Dr. Irene Cedillo ADRI by IFAon 10-23-2022 Antinuclear Antibodies, IFA Positive Abnormal [facility] Comment on above: Result Comment: Nega tive <1:80 Borderline 1:80 Positive >1:80 Performed By: #### T SH #### [facility] [address] [place] [address] [address] Irene Cedillo Centriole Pattern Normal [facility] Comment on above: Performed By: #### T SH #### [facility] [address] [place] [address] [address] Irene Cedillo Centromere Pattern Normal [facility] Comment on above: Performed By: #### T SH #### [facility] [address] [place] [address] [address] Irene Cedillo Homogeneous Pattern 1:320 Critically high [facility] Comment on above: Result Comment: ICAP nomenclature: AC-1 Performed By: #### T SH #### [facility] [address] [place] [address] [address] Irene Cedillo Midbody Pattern Normal [facility] Comment on above: Performed By: #### T SH #### [facility] [address] [place] [address] Dr. Irene Cedillo Note: Comment Normal [facility] Comment on above: Result Comment: [...] titers Nucleosomes, Histones Drug-induced SLE Speckled Sm, PROCUREMENT AGENT, SCL-70, SLE,MCTD,PSS (diffuse form), SS-A/SS-B Sjogrens Nucleolar SCL-70, PM-1/SCL High titers Scleroderma, PM/DM Centromere Centromere PSS (limited form) w/Crest syndrome variable Nuclear Dot [id number] Primary Biliary Cirrhosis Nuclear GP210, Primary Biliary Cirrhosis Membrane margie A,B,C Performed By: #### T SH #### [facility] [address] [place] [address] Dr. Irene Cedillo Nuclear Dot Pattern Normal [facility] Comment on above: Performed By: #### T SH #### [facility] [address] [place] [address] Dr. Irene Cedillo Nuclear Membrane Pattern Normal [facility] Comment on above: Performed By: #### T SH #### [facility] [address] [place] [address] Dr. Irene Cedillo Nucleolar Pattern Normal [facility] Comment on above: Performed By: #### T SH #### [facility] [address] [place] [address] Dr. Irene Cedillo PCNA Pattern Normal [facility] Comment on above: Performed By: #### T SH #### [facility] [address] [place] [address] Dr. Irene Cedillo Speckled Pattern Normal [facility] Comment on above: Performed By: #### T SH #### [facility] [address] [place] [address] Dr. Irene Cedillo Spindle Apparatus Pattern Normal [facility] Comment on above: Performed By: #### T SH #### [facility] [address] [place] [address] Dr. Irene Cedillo ALDOLASEon 10-19-2022 Aldolase 3.6 U/L Normal 3.3-10.3 [facility] Comment on above: Performed By: #### T SH #### [facility] [address] [place] [address] Dr. Irene Cedillo ANTI-CENTROMERE B ABon 10-19 Anti-Centromere B Antibodies <0.2 Normal 0.0-0.9 [facility] Comment on above: Performed By: #### S EDR #### [facility] [address] [place] [address] Dr. Irene Cedillo ANTI-DNA DS ABon 10-19-2022 Anti-DNA (DS) Ab Qn 1 IU/mL Normal 0-9 [facility] Comment on above: Result Comment: Nega tive <5 Equivocal 5 - 9 Positive >9 Performed By: #### C CPAB #### [facility] [address] [place] [address] Dr. Irene Cedillo ANTI-NICOLLE-1on 10-19-2022 Anti-Nicolle-1 <0.2 Normal 0.0-0.9 [facility] Comment on above: Performed By: #### A NTI-NICOLLE #### [facility] [address] [place], [place] [id number] Dr. Irene Cedillo ANTICHROMATIN ANTIBODIESon 0 10-19-2022 Antichromatin Antibodies 0.5 AI Normal 0.0-0.9 [facility] Comment on above: Performed By: #### C K, CRP #### [facility] [address] [place] [address] Dr. Irene Cedillo ANTIEXTRACTABLE NUCLEAR ANTI BODIESon 10-19-2022 PROCUREMENT AGENT Antibodies <0.2 Normal 0.0-0.9 [facility] Comment on above: Performed By: #### H PYLORI #### [facility] [address] [place] [address] Dr. Irene Cedillo Performed By: #### C CPAB #### [facility] [address] [place] [address] Dr. Irene Cedillo Murray Antibodies <0.2 Normal 0.0-0.9 [facility] Comment on above: Performed By: #### H PYLORI #### [facility] [address] [place] [address] Dr. Irene Cedillo Performed By: #### C CPAB #### [facility] [address] [place] [address] Dr. Irene Cedillo ANTISCLERODERMA ABon 023 Antiscleroderma-70 Antibodies <0.2 Normal 0.0-0.9 [facility] Comment on above: Performed By: #### A NSCLER #### [facility] [address] [place] [address] Dr. Irene Cedillo C3 and C4 COMPLEMENTon 10-19 Complement C3, Serum 171 mg/dL Critically high 82-167 [facility] Comment on above: Performed By: #### H PYLORI #### [facility] [address] [place] [address] Dr. Irene Cedillo Complement C4, Serum 41 mg/dL Critically high 12-38 [facility] Comment on above: Performed By: #### H PYLORI #### [facility] [address] [place] [address] Dr. Irene Cedillo COMPLEMENT TOTAL (CH50)on Complement, Total (CH50) >60 Normal >41 [facility] Comment on above: Result Comment: Age [...] Performed By: #### C K, CRP #### [facility] [address] [place] [address] Dr. Irene Cedillo CYCLIC CITRULLINATED PEPTIDE AB (CCP)on 10-19-2022 CCP Antibodies IgG/IgA 3 units Normal 0-19 [facility] Comment on above: Result Comment: Nega tive <20 Weak positive 20 - 39 Moderate positive 40 - 59 Strong positive >59 Performed By: #### C CPAB #### [facility] [address] [address] [address] Irene Cedillo MITICHONDRIAL (M2) ANTIBODYo n 10-19-2022 Mitochondrial (M2) Antibody <20.0 Normal 0.0-20.0 [facility] Comment on above: Result Comment: Nega tive 0.0 - 20.0 Equivocal 20.1 - 24.9 Positive >24.9 . Mitochondrial (M2) Antibodies are found in 90-96% of patients with primary biliary cirrhosis. Performed By: #### C K, CRP #### [facility] [address] [address] [address] Irene Cedillo RHEUMATOID FACTORon 10-19-19 23 RA Latex Turbid. <10.0 Normal <14.0 [facility] Comment on above: Performed By: #### C CPAB #### [facility] [address] [place] [address] Dr. Irene Cedillo RPR QUANTon 10-19-2022 Rapid Plasma Reagin, Quant Non-Reactive Normal NonRea<1:1 [facility] Comment on above: Result Comment: Plea se Note: This test does not meet current guidelines for screening and diagnosis of syphilis. This test is intended for following treatment response in patients being treated for syphilis infection. To screen for syphilis infection, a reflex cascade that includes both RPR and a treponema-specific assay should be utilized, such as Treponema pallidum (Syphilis) Screening [place] (340784) or Rapid Plasma Reagin (RPR) Test With Reflex to Quantitative RPR and Confirmatory Treponema pallidum Antibodies (360387). Performed By: #### T SH #### [facility] [address] [place] [address] Dr. Irene Cedillo SJOGRENS ANTIBODIES (Anti SS A/B)on 10-19-2022 Sjogren's Anti-SS-A <0.2 Normal 0.0-0.9 [facility] Comment on above: Performed By: #### S EDR #### [facility] [address] [place] [address] Dr. Irene Cedillo Sjogren's Anti-SS-B <0.2 Normal 0.0-0.9 [facility] Comment on above: Performed By: #### S EDR #### [facility] [address] [place] [address] Dr. Irene Cedillo SMOOTH MUSCLE ANTIBODYon Actin (Smooth Muscle) Antibody 5 Units Normal 0-19 [facility] Comment on above: Result Comment: Nega tive 0 - 19 Weak positive 20 - 30 Moderate to strong positive >30 . Actin Antibodies are found in 52-85% of patients with autoimmune hepatitis or chronic active hepatitis and in 22% of patients with primary biliary cirrhosis. Performed By: #### C K, CRP #### [facility] [address] [place] [address] Dr. Irene Cedillo THYROGLOBULIN ABon Thyroglobulin Antibody <1.0 Normal 0.0-0.9 [facility] Comment on above: Result Comment: Thyr oglobulin Antibody measured by [employer] Performed By: #### C CPAB #### [facility] [address] [place] [address] Dr. Irene Cedillo THYROID PEROXIDASE ABon 02-0 Thyroid Peroxidase (TPO) Ab 11 IU/mL Normal 0-34 [facility] Comment on above: Performed By: #### T SH #### [facility] [address] [place] [address] Dr. Irene Cedillo CBC AUTO DIFFon 10-18-2022 BASO # 0.1 103/ul Normal 0.0-0.1 [facility] Comment on above: Performed By: #### C K, CRP #### [facility] [address] [place] [address] Dr. Irene Cedillo Basophils/100 WBC (Bld) 0.7 % Normal 0.2-2.0 [facility] Comment on above: Performed By: #### C K, CRP #### [facility] [address] [place] [address] Dr. Irene Cedillo EO # 0.2 103/ul Normal 0.0-0.7 [facility] Comment on above: Performed By: #### C K, CRP #### [facility] [address] [place] [address] Dr. Irene Cedillo Eosinophils/100 WBC (Bld) 2.8 % Normal 0.9-7.0 [facility] Comment on above: Performed By: #### C K, CRP #### [facility] [address] [place] [address] Dr. Irene Cedillo Erythrocyte distribution width (RBC) [Ratio] 13.4 % Normal 11.0-15.0 [facility] Comment on above: Performed By: #### C K, CRP #### [facility] [address] [place] [address] Dr. Irene Cedillo Hematocrit (Bld) [Volume fraction] 43.6 % Normal 36.0-48.0 [facility] Comment on above: Performed By: #### C K, CRP #### [facility] [address] [place] [address] Dr. Irene Cedillo Hemoglobin (Bld) [Mass/Vol] 14.1 g/dL Normal 12.0-16.0 [facility] Comment on above: Performed By: #### C K, CRP #### [facility] [address] [place] [address] Dr. Irene Cedillo IG # 0.01 10e3/ul Normal 0.00-0.03 [facility] Comment on above: Performed By: #### C K, CRP #### [facility] [address] [place] [address] Dr. Irene Cedillo IG % 0.1 % Normal 0.0-0.5 [facility] Comment on above: Performed By: #### C K, CRP #### [facility] [address] [address] [address] Irene Cedillo LYMPH # 2.5 103/ul Normal 1.2-3.8 [facility] Comment on above: Performed By: #### C K, CRP #### [facility] [address] [place] [address] Dr. Irene Cedillo Lymphocytes/100 WBC (Bld) 35.9 % Normal 20.5-60.0 [facility] Comment on above: Performed By: #### C K, CRP #### [facility] [address] [place] [address] Dr. Irene Cedillo MANUAL DIFF REQ NO Normal [facility] Comment on above: Performed By: #### C K, CRP #### [facility] [address] [place] [address] Dr. Irene Cedillo MCH (RBC) [Entitic mass] 29.6 pg Normal 26.7-34.0 [facility] Comment on above: Performed By: #### C K, CRP #### [facility] [address] [place] [address] Dr. Irene Cedillo MCHC (RBC) [Mass/Vol] 32.3 g/dL Normal 29.9-35.2 [facility] Comment on above: Performed By: #### C K, CRP #### [facility] [address] [place] [address] Dr. Irene Cedillo MCV (RBC) [Entitic vol] 91.6 fL Normal 81.0-99.0 [facility] Comment on above: Performed By: #### C K, CRP #### [facility] [address] [place] [address] Dr. Irene Cedillo MONO # 0.4 103/ul Normal 0.3-0.8 [facility] Comment on above: Performed By: #### C K, CRP #### [facility] [address] [place] [address] Dr. Irene Cedillo Monocytes/100 WBC (Bld) 5.2 % Normal 1.7-12.0 [facility] Comment on above: Performed By: #### C K, CRP #### [facility] [address] [place] [address] Dr. Irene Cedillo NEUT # 3.8 103/ul Normal 1.4-6.5 [facility] Comment on above: Performed By: #### C K, CRP #### [facility] [address] [place] [address] Dr. Irene Cedillo Neutrophils/100 WBC (Bld) 55.3 % Normal 43.0-75.0 [facility] Comment on above: Performed By: #### C K, CRP #### [facility] [address] [place] [address] Dr. Irene Cedillo Platelet mean volume (Bld) [Entitic vol] 9.7 fL Normal 9.5-13.5 [facility] Comment on above: Performed By: #### C K, CRP #### [facility] [address] [place] [address] Dr. Irene Cedillo PLT 271 103/ul Normal 150-450 [facility] Comment on above: Performed By: #### C K, CRP #### [facility] [address] [place] [address] Dr. Irene Cedillo RBC 4.76 106/ul Normal 4.20-5.40 [facility] Comment on above: Performed By: #### C K, CRP #### [facility] [address] [place] [address] Dr. Irene Cedillo WBC 6.9 103/ul Normal 4.0-11.0 [facility] Comment on above: Performed By: #### C K, CRP #### [facility] [address] [place] [address] Dr. Irene Cedillo CPKon 02-08-2023 CK [Catalytic activity/Vol] 57 U/L Normal 26-192 [facility] Comment on above: Performed By: #### T SH #### [facility] [address] [place] [address] Dr. Irene Cedillo CRPon 10-18-2022 CRP 0.8 mg/dL Normal <=1.0 [facility] Comment on above: Performed By: #### T SH #### [facility] [address] [place] [address] Dr. Irene Cedillo FREE T4on 10-18-2022 Free T4 [Mass/Vol] 1.07 ng/dL Normal 0.76-1.[address] [facility] Comment on above: Performed By: #### C K, CRP #### [facility] [address] [place] [address] Dr. Irene Cedillo PROF 14(COMP METB)on 023 Albumin [Mass/Vol] 3.9 g/dL Normal 3.4-5.0 [facility] Comment on above: Performed By: #### T SH #### [facility] [address] [place] [address] Dr. Irene Cedillo Albumin/Globulin [Mass ratio] 1.1 {ratio} Normal [facility] Comment on above: Performed By: #### T SH #### [facility] [address] [place] [address] Dr. Irene Cedillo ALP [Catalytic activity/Vol] 90 U/L Normal 46-116 [facility] Comment on above: Performed By: #### T SH #### [facility] [address] [place] [address] Dr. Irene Cedillo ALT [Catalytic activity/Vol] 32 U/L Normal 14-59 [facility] Comment on above: Performed By: #### T SH #### [facility] [address] [place] [address] Dr. Irene Cedillo Anion gap [Moles/Vol] 13.8 mmol/L Normal [facility] Comment on above: Performed By: #### T SH #### [facility] [address] [place] [address] Dr. Irene Cedillo AST [Catalytic activity/Vol] 26 U/L Normal 15-37 [facility] Comment on above: Performed By: #### T SH #### [facility] [address] [place] [address] Dr. Irene Cedillo Bilirubin [Mass/Vol] 0.2 mg/dL Normal 0.2-1.0 [facility] Comment on above: Performed By: #### T SH #### [facility] [address] [place] [address] Dr. Irene Cedillo Calcium [Mass/Vol] 9.1 mg/dL Normal 8.5-10.1 [facility] Comment on above: Performed By: #### T SH #### [facility] [address] [place] [address] Dr. Irene Cedillo Chloride [Moles/Vol] 102 mmol/L Normal 98-107 [facility] Comment on above: Performed By: #### T SH #### [facility] [address] [place] [address] Dr. Irene Cedillo CO2 [Moles/Vol] 25.4 mmol/L Normal 21.0-32.0 [facility] Comment on above: Performed By: #### T SH #### [facility] [address] [place] [address] Dr. Irene Cedillo Creatinine [Mass/Vol] 0.64 mg/dL Normal 0.55-1.02 [facility] Comment on above: Performed By: #### T SH #### [facility] [address] [place] [address] Dr. Irene Cedillo EGFR-AF MALAGASY >60 Normal >=60 [facility] Comment on above: Performed By: #### T SH #### [facility] [address] [place] [address] Dr. Irene Cedillo EGFR-NON AF MALAGASY >60 Normal >=60 [facility] Comment on above: Performed By: #### T SH #### [facility] [address] [place] [address] Dr. Irene Cedillo Globulin (S) [Mass/Vol] 3.6 g/dL Normal [facility] Comment on above: Performed By: #### T SH #### [facility] [address] [address] [address] Irene Cedillo Glucose [Mass/Vol] 132 mg/dL Critically high 74-106 [facility] Comment on above: Performed By: #### T SH #### [facility] [address] [address] [address] Irene Cedillo Potassium [Moles/Vol] 4.2 mmol/L Normal 3.5-5.1 [facility] Comment on above: Performed By: #### T SH #### [facility] [address] [address] [address] Irene Cedillo Protein [Mass/Vol] 7.5 g/dL Normal 6.4-8.2 [facility] Comment on above: Performed By: #### T SH #### [facility] [address] [address] [address] Irene Cedillo Sodium [Moles/Vol] 137 mmol/L Normal 136-145 [facility] Comment on above: Performed By: #### T SH #### [facility] [address] [address] [address] Irene Cedillo Urea nitrogen [Mass/Vol] 19.0 mg/dL Critically high 7.0-18.0 [facility] Comment on above: Performed By: #### T SH #### [facility] [address] [address] [address] Irene Cedillo Urea nitrogen/Creatinine [Mass ratio] 29.7 mg/mg Normal [facility] Comment on above: Performed By: #### T SH #### [facility] [address] [address] [address] Irene Cedillo PROTIMEon 10-18-2022 INR Coag (PPP) [Relative time] {INR} Normal [facility] Comment on above: Performed By: #### C K, CRP #### [facility] [address] [address] [address] Irene Cedillo INR GUIDELINES SEE BELOW Normal [facility] Comment on above: Result Comment: JUAN RAMON RED INR: 2.0 - 3.0 CONDITIONS NOT LISTED BELOW 2.5 - 3.5 FOR PROSTHETIC HEART VALVE REPLACEMENT 2.5 - 3.5 RECURRENT THROMBOSIS Performed By: #### C K, CRP #### [facility] [address] [place] [address] Dr. Irene Cedillo PT Coag (PPP) [Time] 9.8 s Normal 9.0-11.6 [facility] Comment on above: Performed By: #### C K, CRP #### [facility] [address] [place] [address] Dr. Irene Cedillo PTTon 10-18-2022 aPTT Coag (Bld) [Time] 26.0 s Normal 22.3-36.2 [facility] Comment on above: Performed By: #### C K, CRP #### [facility] [address] [place] [address] Dr. Irene Cedillo [facility] SED [facility]ATE 42 mm/hr Critically high <=30 [facility] Comment on above: Performed By: #### S EDR #### [facility] [address] [place] [address] Dr. Irene Cedillo TSHon 10-18-2022 TSH 0.718 uIU/mL Normal 0.358-3.740 [facility] Comment on above: Performed By: #### T SH #### [facility] [address] [place] [address] Dr. Irene Cedillo UA RANDOM W/MICROSCOPICon BACTERIA NONE SEEN Normal NONE SEEN [facility] Comment on above: Performed By: #### C CPAB #### [facility] [address] [place] [address] Dr. Irene Cedillo Bilirubin Ql (U) Negative Normal NEGATIVE [facility] Comment on above: Performed By: #### C CPAB #### [facility] [address] [place] [address] Dr. Irene Cedillo CAST NONE SEEN Normal NONE SEEN [facility] Comment on above: Performed By: #### C CPAB #### [facility] [address] [address] [address] Irene Cedillo Clarity (U) CLEAR Normal CLEAR [facility] Comment on above: Performed By: #### C CPAB #### [facility] [address] [place] [address] Dr. Irene Cedillo Color (U) LT. YELLOW Normal YELLOW [facility] Comment on above: Performed By: #### C CPAB #### [facility] [address] [place] [address] Dr. Irene Cedillo Crystals LM Nom (Urine sed) NONE SEEN Normal NONE SEEN [facility] Comment on above: Performed By: #### C CPAB #### [facility] [address] [place] [address] Dr. Irene Cedillo Epithelial cells LM Ql (Urine sed) NONE SEEN Normal NONE SEEN /RARE [facility] Comment on above: Performed By: #### C CPAB #### [facility] [address] [place] [address] Dr. Irene Cedillo Glucose Ql (U) Negative Normal NEGATIVE [facility] Comment on above: Performed By: #### C CPAB #### [facility] [address] [place] [address] Dr. Irene Cedillo Hemoglobin Ql (U) Negative Normal NEGATIVE [facility] Comment on above: Performed By: #### C CPAB #### [facility] [address] [place] [address] Dr. Irene Cedillo Ketones Ql (U) Negative Normal NEGATIVE [facility] Comment on above: Performed By: #### C CPAB #### [facility] [address] [place] [address] Dr. Irene Cedillo LEUKOCYTES Negative Normal NEGATIVE [facility] Comment on above: Performed By: #### C CPAB #### [facility] [address] [place] [address] Dr. Irene Cedillo MUCOUS NONE SEEN Normal NONE SEEN [facility] Comment on above: Performed By: #### C CPAB #### [facility] [address] [place] [address] Dr. Irene Cedillo Nitrite Ql (U) Negative Normal NEGATIVE [facility] Comment on above: Performed By: #### C CPAB #### [facility] [address] [place] [address] Dr. Irene Cedillo pH (U) 5.5 [pH] Normal 5-9 [facility] Comment on above: Performed By: #### C CPAB #### [facility] [address] [place] [address] Dr. Irene Cedillo RBC 0-2 Normal 0-2 [facility] Comment on above: Performed By: #### C CPAB #### [facility] [address] [place] [address] Dr. Irene Cedillo SPEC GRAVITY 1.020 Normal 1.005-<=1.025 [facility] Comment on above: Performed By: #### C CPAB #### [facility] [address] [place] [address] Dr. Irene Cedillo UA PROTEIN Negative Normal NEGATIVE/ TRACE [facility] Comment on above: Performed By: #### C CPAB #### [facility] [address] [place] [address] Dr. Irene Cedillo Urobilinogen Qn (U) 0.2 {Junior'U}/dL Normal 0.2 - 1. 0 [facility] Comment on above: Performed By: #### C CPAB #### [facility] [address] [place] [address] Dr. Irene Cedillo WBC NONE SEEN Normal NONE SEEN [facility] Comment on above: Performed By: #### C CPAB #### [facility] [address] [place] [address] Dr. Irene Cedillo HLA B 27on 09-21-2022 HLA-B27 Negative Normal [facility] Comment on above: Result Comment: HLA- B*27 Negative B27 allele interpretation for all loci based on IMGT/HLA database version 3.44 This test was developed and its performance characteristics determined by [facility]. It has not been cleared or approved by the Food and Drug Administration. [facility] CLIA ID Number [id number] . This test was performed using PCR (Polymerase Chain Reaction)/SSOP (Sequence Specific Oligonucleotide Probes) technique. SBT (Sequence Based Typing) and/or SSP (Sequence Specific Primers) may be used as supplemental methods when necessary. Please contact [facility] Customer Service at if you have any questions. . Director of [facility] Dr Kris Salinas, PhD Performed By: #### C CPAB #### [facility] [address] [address] [address] Irene Cedillo ADRI by IFAon 09-15-2022 Antinuclear Antibodies, IFA Positive Abnormal [facility] Comment on above: Result Comment: Nega tive <1:80 Borderline 1:80 Positive >1:80 Performed By: #### S EDR #### [facility] [address] [address] [address] Irene Cedillo Centriole Pattern Normal [facility] Comment on above: Performed By: #### S EDR #### [facility] [address] [place] [address] Dr. Irene Cedillo Centromere Pattern Normal [facility] Comment on above: Performed By: #### S EDR #### [facility] [address] [address] [address] Irene Cedillo Homogeneous Pattern 1:160 Critically high [facility] Comment on above: Result Comment: ICAP nomenclature: AC-1 Performed By: #### S EDR #### [facility] [address] [address] [address] Irene Cedillo Midbody Pattern Normal [facility] Comment on above: Performed By: #### S EDR #### [facility] [address] [address] [address] Irene Cedillo Note: Comment Normal [facility] Comment on above: Result Comment: [...] titers Nucleosomes, Histones Drug-induced SLE Speckled Sm, PROCUREMENT AGENT, SCL-70, SLE,MCTD,PSS (diffuse form), SS-A/SS-B Sjogrens Nucleolar SCL-70, PM-1/SCL High titers Scleroderma, PM/DM Centromere Centromere PSS (limited form) w/Crest syndrome variable Nuclear Dot [id number] Primary Biliary Cirrhosis Nuclear GP210, Primary Biliary Cirrhosis Membrane margie A,B,C Performed By: #### S EDR #### [facility] [address] [place] [address] Dr. Irene Cedillo Nuclear Dot Pattern Normal [facility] Comment on above: Performed By: #### S EDR #### [facility] [address] [address] [address] Irene Cedillo Nuclear Membrane Pattern Normal [facility] Comment on above: Performed By: #### S EDR #### [facility] [address] [address] [address] Irene Cedillo Nucleolar Pattern Normal [facility] Comment on above: Performed By: #### S EDR #### [facility] [address] [place] [address] Dr. Irene Cedillo PCNA Pattern Normal [facility] Comment on above: Performed By: #### S EDR #### [facility] [address] [address] [address] Irene Cedillo Speckled Pattern Normal [facility] Comment on above: Performed By: #### S EDR #### [facility] [address] [place] [address] Dr. Irene Cedillo Spindle Apparatus Pattern Normal [facility] Comment on above: Performed By: #### S EDR #### [facility] [address] [place] [address] Dr. Irene Cedillo CYCLIC CITRULLINATED PEPTIDE AB (CCP)on 09-15-2022 CCP Antibodies IgG/IgA 0 units Normal 0-19 [facility] Comment on above: Result Comment: Nega tive <20 Weak positive 20 - 39 Moderate positive 40 - 59 Strong positive >59 Performed By: #### C CPAB #### [facility] [address] [place] [address] Dr. Irene Cedillo RHEUMATOID FACTORon 09-15-19 23 RA Latex Turbid. <10.0 Normal <14.0 [facility] Comment on above: Performed By: #### C K, CRP #### [facility] [address] [place], [place] [id number] Dr. Irene Cedillo CBC AUTO DIFFon 09-13-2022 BASO # 0.0 103/ul Normal 0.0-0.1 [facility] Comment on above: Performed By: #### H PYLORI #### [facility] [address] [place] [address] Dr. Irene Cedillo Basophils/100 WBC (Bld) 0.4 % Normal 0.2-2.0 [facility] Comment on above: Performed By: #### H PYLORI #### [facility] [address] [place] [address] Dr. Irene Cedillo EO # 0.3 103/ul Normal 0.0-0.7 [facility] Comment on above: Performed By: #### H PYLORI #### [facility] [address] [place] [address] Dr. Irene Cedillo Eosinophils/100 WBC (Bld) 4.4 % Normal 0.9-7.0 [facility] Comment on above: Performed By: #### H PYLORI #### [facility] [address] [place] [address] Dr. Irene Cedillo Erythrocyte distribution width (RBC) [Ratio] 13.2 % Normal 11.0-15.0 [facility] Comment on above: Performed By: #### H PYLORI #### [facility] [address] [place] [address] Dr. Irene Cedillo Hematocrit (Bld) [Volume fraction] 41.5 % Normal 36.0-48.0 [facility] Comment on above: Performed By: #### H PYLORI #### [facility] [address] [place] [address] Dr. Irene Cedillo Hemoglobin (Bld) [Mass/Vol] 14.0 g/dL Normal 12.0-16.0 [facility] Comment on above: Performed By: #### H PYLORI #### [facility] [address] [place] [address] Dr. Irene Cedillo IG # 0.02 10e3/ul Normal 0.00-0.03 [facility] Comment on above: Performed By: #### H PYLORI #### [facility] [address] [place] [address] Dr. Irene Cedillo IG % 0.3 % Normal 0.0-0.5 [facility] Comment on above: Performed By: #### H PYLORI #### [facility] [address] [place] [address] Dr. Irene Cedillo LYMPH # 2.5 103/ul Normal 1.2-3.8 [facility] Comment on above: Performed By: #### H PYLORI #### [facility] [address] [place] [address] Dr. Irene Cedillo Lymphocytes/100 WBC (Bld) 34.4 % Normal 20.5-60.0 [facility] Comment on above: Performed By: #### H PYLORI #### [facility] [address] [place] [address] Dr. Irene Cedillo MANUAL DIFF REQ NO Normal [facility] Comment on above: Performed By: #### H PYLORI #### [facility] [address] [place] [address] Dr. Irene Cedillo MCH (RBC) [Entitic mass] 30.0 pg Normal 26.7-34.0 [facility] Comment on above: Performed By: #### H PYLORI #### [facility] [address] [place] [address] Dr. Irene Cedillo MCHC (RBC) [Mass/Vol] 33.7 g/dL Normal 29.9-35.2 [facility] Comment on above: Performed By: #### H PYLORI #### [facility] [address] [place] [address] Dr. Irene Cedillo MCV (RBC) [Entitic vol] 88.9 fL Normal 81.0-99.0 [facility] Comment on above: Performed By: #### H PYLORI #### [facility] [address] [place] [address] Dr. Irene Cedillo MONO # 0.4 103/ul Normal 0.3-0.8 [facility] Comment on above: Performed By: #### H PYLORI #### [facility] [address] [place] [address] Dr. Irene Cedillo Monocytes/100 WBC (Bld) 5.6 % Normal 1.7-12.0 [facility] Comment on above: Performed By: #### H PYLORI #### [facility] [address] [place] [address] Dr. Irene Cedillo NEUT # 4.0 103/ul Normal 1.4-6.5 [facility] Comment on above: Performed By: #### H PYLORI #### [facility] [address] [place] [address] Dr. Irene Cedillo Neutrophils/100 WBC (Bld) 54.9 % Normal 43.0-75.0 [facility] Comment on above: Performed By: #### H PYLORI #### [facility] [address] [place] [address] Dr. Irene Cedillo Platelet mean volume (Bld) [Entitic vol] 9.6 fL Normal 9.5-13.5 [facility] Comment on above: Performed By: #### H PYLORI #### [facility] [address] [place] [address] Dr. Irene Cedillo PLT 314 103/ul Normal 150-450 [facility] Comment on above: Performed By: #### H PYLORI #### [facility] [address] [place] [address] Dr. Irene Cedillo RBC 4.67 106/ul Normal 4.20-5.40 [facility] Comment on above: Performed By: #### H PYLORI #### [facility] [address] [place] [address] Dr. Irene Cedillo WBC 7.3 103/ul Normal 4.0-11.0 [facility] Comment on above: Performed By: #### H PYLORI #### [facility] [address] [place] [address] Dr. Irene Cedillo CRPon 09-13-2022 CRP 0.3 mg/dL Normal <=1.0 [facility] Comment on above: Performed By: #### C K, CRP #### [facility] [address] [place] [address] Dr. Irene Cedillo RENAL FUNCTION PANELon 09-13 Albumin [Mass/Vol] 3.7 g/dL Normal 3.4-5.0 [facility] Comment on above: Performed By: #### R ENAL #### [facility] [address] [place] [address] Dr. Irene Cedillo Calcium [Mass/Vol] 9.3 mg/dL Normal 8.5-10.1 [facility] Comment on above: Performed By: #### R ENAL #### [facility] [address] [address] [address] Irene Cedillo Chloride [Moles/Vol] 105 mmol/L Normal 98-107 [facility] Comment on above: Performed By: #### R ENAL #### [facility] [address] [place] [address] Dr. Irene Cedillo CO2 [Moles/Vol] 30.5 mmol/L Normal 21.0-32.0 [facility] Comment on above: Performed By: #### R ENAL #### [facility] [address] [place] [address] Dr. Irene Cedillo Creatinine [Mass/Vol] 0.64 mg/dL Normal 0.55-1.02 [facility] Comment on above: Performed By: #### R ENAL #### [facility] [address] [place] [address] Dr. Irene Cedillo EGFR-AF MALAGASY >60 Normal >=60 [facility] Comment on above: Performed By: #### R ENAL #### [facility] [address] [place] [address] Dr. Irene Cedillo EGFR-NON AF MALAGASY >60 Normal >=60 [facility] Comment on above: Performed By: #### R ENAL #### [facility] [address] [place] [address] Dr. Irene Cedlilo Glucose [Mass/Vol] 130 mg/dL Critically high 74-106 [facility] Comment on above: Performed By: #### R ENAL #### [facility] [address] [place] [address] Dr. Irene Cedillo Phosphate [Mass/Vol] 3.9 mg/dL Normal 2.6-4.7 [facility] Comment on above: Performed By: #### R ENAL #### [facility] [address] [place] [address] Dr. Irene Cedillo Potassium [Moles/Vol] 4.0 mmol/L Normal 3.5-5.1 [facility] Comment on above: Performed By: #### R ENAL #### [facility] [address] [place] [address] Dr. Irene Cedillo Sodium [Moles/Vol] 143 mmol/L Normal 136-145 [facility] Comment on above: Performed By: #### R ENAL #### [facility] [address] [place] [address] Dr. Irene Cedillo Urea nitrogen [Mass/Vol] 16.0 mg/dL Normal 7.0-18.0 [facility] Comment on above: Performed By: #### R ENAL #### [facility] [address] [place] [address] Dr. Irene Cedillo SED RATE [facility] 2022 SED RATE 20 mm/hr Normal <=30 [facility] Comment on above: Performed By: #### C K, CRP #### [facility] [address] [place] [address] Dr. Irene Cedillo MRI ANKLE LT WO [...] TONY DICKINSON Date: 2022-08-26 09:36 Normal [facility] MAMM SCREEN 3D RIAN CADon 08-08-2022 MG MAMM SCREEN 3D RIAN CAD Patient: EMILY MACIAS Exam Date: 08/08/2022 : 1960 Gender:F Ordering : DR. KENDRA MCKINLEY M.D. Admission #: [id number] Family : DR NETTA MONTOYA M.D. Order #: [id number] CLICK HERE TO VIEW EXAM RADIOLOGY REPORT [...] breast cancer at age 78. LOCATION: [facility] BREAST COMPOSITION: Heterogeneously dense,which may [...] Alexandre M.D. on 08/09/2022 at 15:10 Normal [facility] GLYCOHEMOGLOBIN A1Con 2021 ADA RECOMMENDATION SEE BELOW Normal The [facility] Comment on above: Result Comment: ADA RECOMMENDED LIMIT 4.0 - 6.0 ADA THERAPEUTIC TARGET < 7.0 ACTION SUGGESTED > 7.0 Performed By: #### C CPAB #### [facility] [address] [address] [address] Irene Cedillo Glucose [Mass/Vol] 128 mg/dL Normal [facility] Comment on above: Performed By: #### C CPAB #### [facility] [address] [address] [address] Irene Cedillo HbA1c (Bld) [Mass fraction] 6.1 % Normal 4.5-6.2 [facility] Comment on above: Performed By: #### C CPAB #### [facility] [address] [address] [address] Irene Cedillo XR FOOT RIAN MIN [...] PELON ALEXANDRE Date: 2022-07-06 06:21 Normal [facility] OVA AND PARASITE EXAMINATION on 04-13-2022 Ova + Parasite Exam Final report Normal [facility] Comment on above: Result Comment: Thes e results were obtained using wet preparation(s) and trichrome stained smear. This test does not include testing for Cryptosporidium parvum, Cyclospora, or Microsporidia. Performed By: #### S EDR #### [facility] [address] [place] [address] Dr. Irene Cedillo Result 1 Comment Normal [facility] Comment on above: Result Comment: No o va, cysts, or parasites seen. . One negative specimen does not rule out the possibility of a parasitic infection. Performed By: #### S EDR #### [facility] [address] [address] [address] Irene Cedillo CALPROTECTIN, FECALon 2021 Calprotectin, Fecal 36 ug/g Normal 0-120 [facility] Comment on above: Result Comment: Conc entration Interpretation Follow-Up <16 - 50 ug/g Normal None >50 -120 ug/g Borderline Re-evaluate in 4-6 weeks >120 ug/g Abnormal Repeat as clinically indicated Performed By: #### C K, CRP #### [facility] [address] [place] [address] Dr. Irene Cedillo HELICOBACTER PYLORI AG STOOL on 04-12-2022 H. pylori Stool Ag, EIA Negative Normal Negative [facility] Comment on above: Performed By: #### H PYLORI #### [facility] [address] [place] [address] Dr. Irene Cedillo LACTOFERRIN FECAL QUANTon Lactoferrin, Fecal, Quant. <1.00 Normal 0.00-7.24 [facility] Comment on above: Result Comment: Re [...] (IBS). Performed By: #### T SH #### [facility] [address] [place] [address] Dr. Irene Cedillo C. DIFF PCRon 04-08-2022 C. DIFFICILE PCR Negative Normal NEGATIVE [facility] Comment on above: Performed By: #### S EDR #### [facility] [address] [place] [address] Dr. Irene Cedillo GI PANEL (PCR)on 04-08-2022 Adenovirus F 40/41 Not detected Normal NOT DETECTED [facility] Comment on above: Performed By: #### S EDR #### [facility] [address] [place] [address] Dr. Irene Cedillo Astrovirus Not detected Normal NOT DETECTED [facility] Comment on above: Performed By: #### S EDR #### [facility] [address] [place] [address] Dr. Irene Cedillo C. Diff toxin A/B Not detected Normal NOT DETECTED [facility] Comment on above: Performed By: #### S EDR #### [facility] [address] [place] [address] Dr. Irene Cedillo Campylobacter Not detected Normal NOT DETECTED [facility] Comment on above: Performed By: #### S EDR #### [facility] [address] [place] [address] Dr. Irene Cedillo Cryptosporidium Not detected Normal NOT DETECTED [facility] Comment on above: Performed By: #### S EDR #### [facility] [address] [place] [address] Dr. Irene Cedillo Cyclos. Cayetanensis Not detected Normal NOT DETECTED [facility] Comment on above: Performed By: #### S EDR #### [facility] [address] [place] [address] Dr. Irene Cedillo E. Coli O157 Not Applicable Normal Not Applicable [facility] Comment on above: Performed By: #### S EDR #### [facility] [address] [place] [address] Dr. Irene Cedillo E. histolytica Not detected Normal NOT DETECTED [facility] Comment on above: Performed By: #### S EDR #### [facility] [address] [place] [address] Dr. Irene Cedillo EAEC Not detected Normal NOT DETECTED [facility] Comment on above: Performed By: #### S EDR #### [facility] [address] [address] [address] Irene Cedillo EIEC Not detected Normal NOT DETECTED [facility] Comment on above: Performed By: #### S EDR #### [facility] [address] [address] [address] Irene Cedillo EPEC Not detected Normal NOT DETECTED [facility] Comment on above: Performed By: #### S EDR #### [facility] [address] [place] [address] Dr. Irene Cedillo ETEC Not detected Normal NOT DETECTED [facility] Comment on above: Performed By: #### S EDR #### [facility] [address] [place] [address] Dr. Irene Cedillo G. Lamblia Not detected Normal NOT DETECTED [facility] Comment on above: Performed By: #### S EDR #### [facility] [address] [place] [address] Dr. Irene VIGIL CONTROLS PASSED Normal The [facility] Comment on above: Performed By: #### S EDR #### [facility] [address] [place] [address] Dr. Irene [facility]STA [facility] HEADER GI PANEL BACTERIA Normal [facility] Comment on above: Performed By: #### S EDR #### [facility] [address] [place] [address] Dr. Irene CALDERA ECOLI GI PANEL DIARRHEAGEN IC E.COLI / SHIGELLA Normal [facility] Comment on above: Performed By: #### S EDR #### [facility] [address] [place] [address] Dr. Irene CALDERA INFO SEE BELOW [facility] Comment on above: Result Comment: EAEC - Enteroaggregative E. Coli EPEC- Enteropathogenic E. Coli ETEC- Enterotoxigenic E. Coli lt/st STEC- Shigella-like toxin-producing E. Coli stx1/stx2 EIEC- Shigella/Enteroinvasive E. Coli Performed By: #### S EDR #### [facility] [address] [address] [address] Irene CALDERA PARASITES GI PANEL PARASITES Normal [facility] Comment on above: Performed By: #### S EDR #### [facility] [address] [place] [address] Dr. Irene CALDERA VIRUS GI PANEL VIRUSES Normal [facility] Comment on above: Performed By: #### S EDR #### [facility] [address] [address] [address] Irene Cedillo Norovirus GI/GII Not detected Normal NOT DETECTED [facility] Comment on above: Performed By: #### S EDR #### [facility] [address] [place] [address] Dr. Irene Cedillo P. Shigelloides Not detected Normal NOT DETECTED [facility] Comment on above: Performed By: #### S EDR #### [facility] [address] [place] [address] Dr. Irene Cedillo Rotavirus A Not detected Normal NOT DETECTED [facility] Comment on above: Performed By: #### S EDR #### [facility] [address] [place] [address] Dr. Irene Cedillo Salmonella Not detected Normal NOT DETECTED [facility] Comment on above: Performed By: #### S EDR #### [facility] [address] [place] [address] Dr. Irene Cedillo Sapovirus Not detected Normal NOT DETECTED [facility] Comment on above: Performed By: #### S EDR #### [facility] [address] [place] [address] Dr. Irene Cedillo STEC Not detected Normal NOT DETECTED [facility] Comment on above: Performed By: #### S EDR #### [facility] [address] [place] [address] Dr. Irene Cedillo Vibrio Not detected Normal NOT DETECTED [facility] Comment on above: Performed By: #### S EDR #### [facility] [address] [place] [address] Dr. Irene Cedillo Vibrio Cholera Not detected Normal NOT DETECTED [facility] Comment on above: Performed By: #### S EDR #### [facility] [address] [place] [address] Dr. Irene Cedillo Y. Enterocolitica Not detected Normal NOT DETECTED [facility] Comment on above: Performed By: #### S EDR #### [facility] [address] [place] [address] Dr. Irene Cedillo BUNon 03-27-2022 Urea nitrogen [Mass/Vol] 20.0 mg/dL Critically high 7.0-18.0 [facility] Comment on above: Performed By: #### C K, CRP #### [facility] [address] [place] [address] Dr. Irene Cedillo CREATININEon 03-27-2022 Creatinine [Mass/Vol] 0.75 mg/dL Normal 0.55-1.02 [facility] Comment on above: Performed By: #### C K, CRP #### [facility] [address] [place] [address] Dr. Irene Cedillo EGFR-AF MALAGASY >60 Normal >=60 [facility] Comment on above: Performed By: #### C K, CRP #### [facility] [address] [place] [address] Dr. Irene Cedillo EGFR-NON AF MALAGASY >60 Normal >=60 [facility] Comment on above: Performed By: #### C K, CRP #### [facility] [address] [place] [address] ABD/PELV W CONon [...] and/or use of iterative reconstruction technique. Findings: Budget Coordinator: No acute abnormalities are seen. Liver/Biliary System: [...] by: CIELO GARCIA Date: 2022-03-27 21:37 Normal [facility] POINT OF CARE GLUCOSEon 03-10 Glucose [Mass/Vol] 173 mg/dL Critically high 74-106 [facility] Comment on above: Performed By: #### C CPAB #### [facility] [address] [address] [address] Irene Cedillo FSHon 02-25-2022 FSH 46.6 mIU/mL Normal [facility] Comment on above: Result Comment: Adul t Female: Follicular phase 3.5 - 12.5 Ovulation phase 4.7 - 21.5 Luteal phase 1.7 - 7.7 Postmenopausal 25.8 - 134.8 Performed By: #### C K, CRP #### [facility] [address] [address] [address] Irene Cedillo LUTEINIZING HORMONE (LH)on 0 02-25-2022 LH 33.3 mIU/mL Normal [facility] Comment on above: Result Comment: Adul t Female: Follicular phase 2.4 - 12.6 Ovulation phase 14.0 - 95.6 Luteal phase 1.0 - 11.4 Postmenopausal 7.7 - 58.5 Performed By: #### H PYLORI #### [facility] [address] [place] [address] Dr. Irene Cedillo TESTOSTERONE, TOTALon 2021 Testosterone [Mass/Vol] 6 ng/dL Normal 3-67 [facility] Comment on above: Performed By: #### H PYLORI #### [facility] [address] [place] [address] Dr. Irene Cedillo THYROID PEROXIDASE ABon 02-08 Thyroid Peroxidase (TPO) Ab <8 Normal 0-34 [facility] Comment on above: Performed By: #### C K, CRP #### [facility] [address] [place] [address] Dr. Irene Cedillo FREE T3on 02-24-2022 FREE T3 2.47 pg/mlL Normal 2.18-3.98 [facility] Comment on above: Performed By: #### S EDR #### [facility] [address] [place] [address] Dr. Irene Cedillo LYME DISEASE AB EIA W REFLEX on 01-31-2022 Lyme Total Antibody,EIA Negative Normal Negative [facility] Comment on above: Result Comment: Lyme Antibody Negative No laboratory evidence of infection with B. burgdorferi (Lyme disease). Negative results may occur in patients recently infected (greater than or equal to 14 days) with B. burgdorferi. If recent infection is suspected, repeat testing on a new sample collected in 7 to 14 days is recommended. Performed By: #### T SH #### [facility] [address] [place] [address] Dr. Irene Cedillo CPKon 01-30-2022 CK [Catalytic activity/Vol] 76 U/L Normal 26-192 [facility] Comment on above: Performed By: #### C K, CRP #### [facility] [address] [place] [address] Dr. Irene Cedillo CRPon 01-30-2022 CRP 0.4 mg/dL Normal <=1.0 [facility] Comment on above: Performed By: #### C K, CRP #### [facility] [address] [address] [address] Irene Cedillo SED RATE WESTERGRENon 2021 SED RATE 8 mm/hr Normal <=30 [facility] Comment on above: Performed By: #### H PYLORI #### [facility] [address] [address] [address] Irene Cedillo C REACTIVE PROTEINon 021 CRP [Mass/Vol] 9.3 mg/L High 0.0-7.0 [facility] Comment on above: Performed By: #### 6 [id number] #### [address] [facility]NEE [facility] 3 [facility] Department of Radiology [address] [place] [id number] ======== Patient Name: EMILY MACIAS : 1960 Sex: F Age: Race: White Pt. Location: Patient Status: Ordered Date: 09/06/2021 1:35:00 PM Completed Date: 09/06/2021 01:56 PM Requesting Provider: KIARA WILLETT Attending Provider: Report Copy To: Signs & Symptoms: M25.562 Pain in left knee I10 History: [place] Comments: Evaluate Exam: KNEE LEFT 3 VWS [...] above Electronically signed: Olga Murray. Transcribed by: [email or web address], User Resident: Electronically Signed by: OLGA MURRAY @ 09/06/2021 03:09 PM Normal [facility] Comment on above: Order Comment: Evalu ate KNEE RIGHT 3 [facility] KNEE RIGHT 3 [facility] Department of Radiology [address] [place] [id number] ======== Patient Name: EMILY MACIAS : 1960 Sex: F Age: Race: White Pt. Location: 84 Patient Status: Ordered Date: 09/06/2021 1:35:00 PM Completed Date: 09/06/2021 01:56 PM Requesting Provider: KIARA WILLETT Attending Provider: Report Copy To: Signs & Symptoms: M25.561 Pain in right knee I10 History: [place] Comments: Evaluate Exam: KNEE RIGHT 3 [facility] ======== KNEE RIGHT 3 VWS 09/06/2021 1:56 [...] above Electronically signed: Olga Murray. Transcribed by: [email or web address], User Resident: Electronically Signed by: OLGA MURRAY @ 09/06/2021 03:08 PM Normal [facility] Comment on above: Order Comment: Evalu ate SEDIMENTATION RATEon 09-06-2 021 SED RATE 7 mm/hr Normal 0-20 [facility] Comment on above: Performed By: #### [id number] #### [facility] [address] Vital Signs Date Time Vital Sign Value Performing Clinician Facility 12-26-2024 10:090400 Body height 165.1 cm [facility] 12-26-2024 10:090400 Body mass index (BMI) [Ratio] 32.7 kg/m2 [facility] 12-26-2024 10:040 Body weight 89.2 kg [facility] 12-26-2024 10:09-0400 Diastolic blood pressure 70 mm[Hg] [facility] 12-26-2024 10:090400 Systolic blood pressure 112 mm[Hg] [facility] 12-10-2024 08:55-0400 Body height 165.1 cm Netta Montoya MD Work Phone: [facility] 12-10-2024 08:55-0400 Body mass index (BMI) [Ratio] 32.5 kg/m2 Netta Montoya MD Work Phone: [facility] 12-10-2024 08:55-0400 Body temperature 98.2 [degF] Netta Montoya MD Work Phone: [facility] 12-10-2024 08:55-0400 Body weight 88.9 kg Netta Montoya MD Work Phone: [facility] 12-10-2024 08:55-0400 Diastolic blood pressure 68 mm[Hg] Netta Montoya MD Work Phone: [facility] 12-10-2024 08:55-0400 Heart rate 88 /min Netta Montoya MD Work Phone: [facility] 12-10-2024 08:55-0400 Systolic blood pressure 103 mm[Hg] Netta Montoya MD Work Phone: [facility] 10-21-2024 09:08-0500 Body height 165.1 cm Netta Montoya MD Work Phone: [facility] 10-21-2024 09:08-0500 Body mass index (BMI) [Ratio] 31.9 kg/m2 Netta Montoya MD Work Phone: [facility] 10-21-2024 09:08-0500 Body weight 87.08 kg Netta Montoya MD Work Phone: [facility] 10-21-2024 09:08-0500 Diastolic blood pressure 64 mm[Hg] Netta Montoya MD Work Phone: [facility] 10-21-2024 09:08-0500 Heart rate 90 /min Netta Montoya MD Work Phone: [facility] 10-21-2024 09:08-0500 SaO2% (BldA) [Mass fraction] 97 % Netta Montoya MD Work Phone: [facility] 10-21-2024 09:08-0500 Systolic blood pressure 107 mm[Hg] Netta Montoya MD Work Phone: [facility] 09-30-2024 13:53-0500 Body height 160.02 cm Netta Montoya MD Work Phone: [facility] 09-30-2024 13:53-0500 Body mass index (BMI) [Ratio] 33.1 kg/m2 Netta Montoya MD Work Phone: [facility] 09-30-2024 13:53-0500 Body weight 84.82 kg Netta Montoya MD Work Phone: [facility] 09-30-2024 13:53-0500 Diastolic blood pressure 70 mm[Hg] Netta Montoya MD Work Phone: [facility] 09-30-2024 13:53-0500 Heart rate 85 /min Netta Montoya MD Work Phone: [facility] 09-30-2024 13:53-0500 Systolic blood pressure 101 mm[Hg] Netta Montoya MD Work Phone: [facility] 08-29-2024 11:03-0500 Diastolic blood pressure 68 mm[Hg] Netta Montoya MD Work Phone: [facility] 08-29-2024 11:03-0500 Heart rate 89 /min Netta Montoya MD Work Phone: [facility] 08-29-2024 11:03-0500 Systolic blood pressure 115 mm[Hg] Netta Montoya MD Work Phone: [facility] 07-29-2024 09:33-0500 Body height 160.02 cm Netta Montoya MD Work Phone: [facility] 07-29-2024 09:33-0500 Body mass index (BMI) [Ratio] 34.3 kg/m2 Netta Montoya MD Work Phone: [facility] 07-29-2024 09:33-0500 Body weight 87.99 kg Netta Montoya MD Work Phone: [facility] 07-29-2024 09:33-0500 Diastolic blood pressure 69 mm[Hg] Netta Montoya MD Work Phone: [facility] 07-29-2024 09:33-0500 Heart rate 75 /min Netta Montoya MD Work Phone: [facility] 07-29-2024 09:33-0500 Systolic blood pressure 101 mm[Hg] Netta Montoya MD Work Phone: [facility] 07-17-2024 13:59-0500 Body height 160.02 cm Netta Montoya MD Work Phone: [facility] 07-17-2024 13:59-0500 Body mass index (BMI) [Ratio] 34.5 kg/m2 Netta Montoya MD Work Phone: [facility] 07-17-2024 13:59-0500 Body weight 88.45 kg Netta Montoya MD Work Phone: [facility] 07-17-2024 13:59-0500 Diastolic blood pressure 69 mm[Hg] Netta Montoya MD Work Phone: [facility] 07-17-2024 13:59-0500 Heart rate 83 /min Netta Montoya MD Work Phone: [facility] 07-17-2024 13:59-0500 SaO2% (BldA) [Mass fraction] 93 % Netta Montoya MD Work Phone: [facility] 07-17-2024 13:59-0500 Systolic blood pressure 117 mm[Hg] Netta Montoya MD Work Phone: [facility] 02-21-2024 13:19-0400 Body height 165.1 cm Sagar Krause MD Work Phone: [facility] 02-21-2024 13:19-0400 Body mass index (BMI) [Ratio] 31.78 kg/m2 Sagar Krause MD Work Phone: [facility] 02-21-2024 13:19-0400 Body temperature 97.11 [degF] Sagar Krause MD Work Phone: [facility] 02-21-2024 13:19-0400 Body weight 86.64 kg Sagar Krause MD Work Phone: [employer] 12-26-2023 13:54-0400 Body height 165.1 cm Radha Irvin STRATEGIC INTELLIGENCE OFFICER-ACTIVITIES DIRECTOR Work Phone: [employer] 12-26-2023 13:54-0400 Body mass index (BMI) [Ratio] 33.45 kg/m2 Radha Irvin STRATEGIC INTELLIGENCE OFFICER-ACTIVITIES DIRECTOR Work Phone: [employer] 12-26-2023 13:54-0400 Body weight 91.17 kg Radha Irvin STRATEGIC INTELLIGENCE OFFICER-ACTIVITIES DIRECTOR Work Phone: [employer] 08-13-2023 09:30-0500 Body height 161.93 cm Netta Montoya Other [email or web address] Other 08-13-2023 09:30-0500 Body mass index (BMI) [Ratio] 34.46 kg/m2 Netta Montoya Other [employer] Other 08-13-2023 09:30-0500 Body weight 90.36 kg Netta Montoya Other [employer] Other 08-13-2023 09:30-0500 Diastolic blood pressure 70 mm[Hg] Netta Montoya Other [employer] Other 08-13-2023 09:30-0500 Systolic blood pressure 110 mm[Hg] Netta Montoya Other [employer] Other 08-09-2023 14:48-0500 Body height 165.1 cm Sagar Krause MD Work Phone: [employer] 08-09-2023 14:48-0500 Body mass index (BMI) [Ratio] 33.58 kg/m2 Sagar Krause MD Work Phone: [employer] 08-09-2023 14:48-0500 Body weight 91.54 kg Sagar Krause MD Work Phone: [employer] 04-24-2023 13:30-0400 Body height 161.93 cm Siva Ron Other [employer] Other 04-24-2023 13:30-0400 Body mass index (BMI) [Ratio] 32.52 kg/m2 Siva Ron Other [employer] Other 04-24-2023 13:30-0400 Body weight 85.28 kg Siva Ron Other [employer] Other 04-24-2023 13:30-0400 Diastolic blood pressure 70 mm[Hg] Siva Ron Other [employer] Other 04-24-2023 13:30-0400 Systolic blood pressure 126 mm[Hg] Siva Ron Other [employer] Other 02-22-2023 15:15-0400 Body height 165.1 cm Radha Irvin STRATEGIC INTELLIGENCE OFFICER-ACTIVITIES DIRECTOR Work Phone: [employer] 02-22-2023 15:15-0400 Body mass index (BMI) [Ratio] 31.51 kg/m2 Radha Irvin STRATEGIC INTELLIGENCE OFFICER-ACTIVITIES DIRECTOR Work Phone: [employer] 02-22-2023 15:15-0400 Body temperature 98.01 [degF] Radha Stockey STRATEGIC INTELLIGENCE OFFICER-ACTIVITIES DIRECTOR Work Phone: [employer] 02-22-2023 15:15-0400 Body weight 85.9 kg Radha Irvin STRATEGIC INTELLIGENCE OFFICER-ACTIVITIES DIRECTOR Work Phone: [employer] 01-09-2023 09:30-0400 Body height 161.93 cm Netta Montoya Other [employer] Other 01-09-2023 09:30-0400 Body mass index (BMI) [Ratio] 33.04 kg/m2 Netta Montoya Other [employer] Other 01-09-2023 09:30-0400 Body weight 86.64 kg Netta Lindsay Other [employer] Other 01-09-2023 09:30-0400 Diastolic blood pressure 60 mm[Hg] Netta Montoya Other [employer] Other 01-09-2023 09:30-0400 SaO2% (BldA) [Mass fraction] 97 % Nettamaldonado Montoya Other [employer] Other 01-09-2023 09:30-0400 Systolic blood pressure 112 mm[Hg] Netta Montoya Other [employer] Other 01-01-2023 15:45-0400 Body height 161.93 cm Siva Ron Other [employer] Other 01-01-2023 15:45-0400 Body mass index (BMI) [Ratio] 34.08 kg/m2 Siva Ron Other [employer] Other 01-01-2023 15:45-0400 Body weight 89.36 kg Siva Ron Other [employer] Other 01-01-2023 15:45-0400 Diastolic blood pressure 71 mm[Hg] Siva Ron Other [employer] Other 01-01-2023 15:45-0400 Systolic blood pressure 116 mm[Hg] Siva Ron Other [employer] Other 11-30-2022 13:58-0400 Body height 165.1 cm Sagar Krause MD Work Phone: [employer] 11-30-2022 13:58-0400 Body mass index (BMI) [Ratio] 32.12 kg/m2 Sagar Krause MD Work Phone: [employer] 11-30-2022 13:58-0400 Body weight 87.54 kg Sagar Krause MD Work Phone: [employer] 10-10-2022 14:30-0500 Body height 161.93 cm Netta Montoya Other [employer] Other 10-10-2022 14:30-0500 Body mass index (BMI) [Ratio] 34.08 kg/m2 Netta Montoya Other [employer] Other 10-10-2022 14:30-0500 Body weight 89.36 kg Netta Montoya Other [employer] Other 10-10-2022 14:30-0500 Diastolic blood pressure 70 mm[Hg] Netta Montoya Other [employer] Other 10-10-2022 14:30-0500 Systolic blood pressure 108 mm[Hg] Netta Montoya Other [employer] Other 09-13-2022 16:30-0500 Body height 161.93 cm Netta Montoya Other [employer] Other 09-13-2022 16:30-0500 Body mass index (BMI) [Ratio] 33.21 kg/m2 Netta Montoya Other [employer] Other 09-13-2022 16:30-0500 Body weight 87.09 kg Netta Montoya Other [employer] Other 09-13-2022 16:30-0500 Diastolic blood pressure 62 mm[Hg] Netta Montoya Other [employer] Other 09-13-2022 16:30-0500 SaO2% (BldA) [Mass fraction] 97 % Netta Montoya Other [employer] Other 09-13-2022 16:30-0500 Systolic blood pressure 108 mm[Hg] Netta Montoya Other [employer] Other Encounters Encounter Date Encounter Type Care Provider Facility Start: 02-25-2025 End: 02-25-2025 Transcribe Orders Daniel Castillo Work Phone: Referring Physician Comment on above: Left knee pain, unsp ecified chronicity (Primary Dx) Start: 02-09-2025 End: 02-09-2025 ambulatory [facility] Start: 01-05-2025 End: 01-05-2025 ambulatory [facility] Start: 12-26-2024 End: 12-26-2024 ambulatory Jb Grady Facility:[facility] Start: 12-26-2024 End: 12-26-2024 Patient encounter procedure [facility] Work Phone: Start: 12-22-2024 End: 12-22-2024 ambulatory Chandra Edouard MD Facility: [facility] Start: 12-10-2024 End: 12-10-2024 ambulatory Netta Montoya MD Work Phone: [facility] Work Phone: Start: 12-10-2024 End: 12-10-2024 Patient encounter procedure Netta Montoya MD Work Phone: [facility] Work Phone: Start: 11-10-2024 Non-patient / Non-visit Netta Montoya MD Work Phone: [facility] Physician [facility] Work Phone: Start: 10-21-2024 End: 10-21-2024 ambulatory Netta Montoya MD Work Phone: [facility] Work Phone: Start: 10-21-2024 End: 10-21-2024 Patient encounter procedure Netta Montoya MD Work Phone: [facility] Physician [facility] Work Phone: Start: 09-30-2024 End: 09-30-2024 Patient encounter procedure Netta Montoya MD Work Phone: [facility] [place] Work Phone: Start: 09-30-2024 End: 09-30-2024 ambulatory Netta Montoya MD Work Phone: [facility] Work Phone: Start: 09-30-2024 End: 09-30-2024 Patient encounter procedure Netta Montoya MD Work Phone: [facility] Physician [facility] Work Phone: Start: 09-19-2024 End: 09-19-2024 ambulatory HANY [facility] Start: 09-16-2024 [facility] Start: 09-08-2024 End: 09-08-2024 ambulatory Chandra Edouard MD Facility:[facility] Start: 08-29-2024 End: 08-29-2024 Patient encounter procedure Netta Montoya MD Work Phone: [facility] [place] Work Phone: Start: 08-29-2024 End: 08-29-2024 ambulatory Jb Grady Facility:[facility] Start: 08-29-2024 End: 08-29-2024 Patient encounter procedure Netta Montoya MD Work Phone: [facility] Work Phone: Start: 08-18-2024 End: 08-18-2024 ambulatory Chandra Edouard MD Facility:[facility] Start: 07-30-2024 ambulatory HILARY [facility] Start: 07-29-2024 End: 07-29-2024 Patient encounter procedure Netta Montoya MD Work Phone: [facility] Work Phone: Start: 07-17-2024 End: 07-17-2024 Patient encounter procedure Netta Montoya MD Work Phone: [facility] Work Phone: Start: 05-13-2024 ambulatory [facility] Start: 04-14-2024 End: 05-11-2024 ambulatory [facility] Start: 02-21-2024 End: 02-21-2024 Office outpatient visit 25 minutes Sagar Krause MD Work Phone: [facility] Comment on above: Hx of total knee art hroplasty, left (Primary Dx); Pain in prosthetic joint, subsequent encounter Start: 02-21-2024 End: 02-21-2024 Subsequent hospital visit by physician Sagar Krause MD Work Phone: [facility] Start: 02-21-2024 ambulatory NETTA MONTOYA [facility] Start: 01-09-2024 End: 02-09-2024 ambulatory [facility] Start: 12-26-2023 End: 01-09-2024 [facility] Start: 12-26-2023 End: 12-26-2023 Office outpatient visit 15 minutes Radha Brandee STRATEGIC INTELLIGENCE OFFICER-ACTIVITIES DIRECTOR Work Phone: [facility] Comment on above: Hx of total knee art hroplasty, left (Primary Dx) Start: 12-26-2023 End: 12-26-2023 Subsequent hospital visit by physician Radha Irvin STRATEGIC INTELLIGENCE OFFICER-ACTIVITIES DIRECTOR Work Phone: [facility] Start: 12-26-2023 ambulatory RADHAKp IRVIN [facility] Start: 10-22-2023 End: 10-22-2023 ambulatory Siva Ron Other [employer] Other Start: 10-22-2023 Telephone encounter Siva sheriff [facility] Start: 08-13-2023 End: 08-13-2023 ambulatory Netta Montoya Other [employer] Other Start: 08-13-2023 Office outpatient visit 15 minutes Netta BAUMAN [facility] Start: 08-09-2023 End: 08-09-2023 Office outpatient visit 15 minutes Sagar Krause MD Work Phone: [facility] Comment on above: Post-op pain (Primar y Dx); Pain in prosthetic joint, subsequent encounter Start: 08-09-2023 End: 08-09-2023 Subsequent hospital visit by physician Sagar Krause MD Work Phone: [facility] Start: 08-09-2023 ambulatory NETTA MONTOYA [facility] Start: 06-19-2023 End: 06-19-2023 ambulatory MD Netta Montoya Work Phone: [facility] Work Phone: Start: 06-19-2023 End: 06-19-2023 Patient encounter procedure MD Netta Montoya Work Phone: [facility] [place] Work Phone: Start: 05-22-2023 End: 05-22-2023 ambulatory Siva Ron Other [employer] Other Start: 05-22-2023 Telephone encounter Siva sheriff [facility] [employer] [facility] Start: 05-09-2023 End: 05-09-2023 ambulatory MD Netta Montoya Work Phone: [facility] Work Phone: Start: 05-09-2023 End: 05-09-2023 Patient encounter procedure MD Netta Montoya Work Phone: [facility] Work Phone: Start: 04-26-2023 End: 04-26-2023 ambulatory Netta Montoya Other [employer] Other Start: 04-26-2023 Telephone encounter Netta Montoya [facility] Start: 04-24-2023 End: 04-24-2023 ambulatory Siva Ron Other [employer] Other Start: 04-24-2023 Office outpatient visit 25 minutes Siva Ron [facility] Start: 04-23-2023 End: 04-23-2023 ambulatory Netta Montoya Other [employer] Other Start: 04-23-2023 Telephone encounter Netta Montoya [facility] Start: 04-20-2023 End: 04-20-2023 ambulatory Netta Montoya Other [employer] Other Start: 04-20-2023 Telephone encounter Netta Montoya [facility] Start: 03-15-2023 End: 03-15-2023 ambulatory Siva Ron Other [employer] Other Start: 03-15-2023 Telephone encounter Siva Huggins ck [facility] Start: 02-22-2023 End: 02-22-2023 Postop follow up visit related to original ildefonso Irvin APRN-ACTIVITIES DIRECTOR Work Phone: [facility] Comment on above: Hx of total knee art hroplasty, left (Primary Dx) Start: 02-19-2023 End: 02-19-2023 ambulatory Netta Montoya Other [employer] Other Start: 02-19-2023 Telephone encounter Netta Lindsay [facility] Start: 01-18-2023 End: 01-19-[address] Erin RON Facility:[facility] Start: 01-17-2023 End: 01-17-2023 ambulatory Siva Ron Other [employer] Other Start: 01-17-2023 Telephone encounter Siva sheriff [facility] Start: 01-16-2023 End: 01-16-2023 ambulatory Siva Ron Other [employer] Other Start: 01-16-2023 Telephone encounter Siva sheriff [facility] Start: 01-09-2023 Encounter for other preprocedural examination Netta Montoya [facility] Start: 01-09-2023 Office outpatient visit 15 minutes Netta Montoya [facility] Start: 01-09-2023 Telephone encounter Netta Montoya [facility] Start: 01-09-2023 End: 01-10-[address] Erin RON [facility] Other Start: 01-08-2023 End: 01-08-[address] Erin RON Facility:[facility] Start: 01-02-2023 End: 01-02-2023 ambulatory Siva Ron Other [employer] Other Start: 01-02-2023 Telephone encounter Siva sheriff [facility] [employer] [facility] Start: 01-01-2023 End: 01-01-2023 ambulatory Siva Ron Other [employer] Other Start: 01-01-2023 Office outpatient ne w 45 minutes Siva Ron [facility] Start: 11-30-2022 End: 11-30-2022 Office outpatient new 60 minutes Sagar Krause MD Work Phone: [facility] Comment on above: Pain in prosthetic j oint, sequela (Primary Dx) Start: 11-30-2022 End: 11-30-2022 Subsequent hospital visit by physician Sagar Krause MD Work Phone: [facility] Start: 11-28-2022 End: 11-29-[address] CARA LEO Facility:[facility] Start: 11-09-2022 End: 11-10-2022 ambulatory BRI BERGER Facility:[facility] Start: 10-18-2022 End: 10-19-[address] CARA LEO Facility:[facility] Start: 10-10-2022 End: 10-10-2022 ambulatory Netta Montoya Other [employer] Other Start: 10-10-2022 Office outpatient visit 15 minutes Netta Montoya [facility] Start: 09-22-2022 End: 09-22-2022 ambulatory Netta Montoya Other [employer] Other Start: 09-22-2022 Telephone encounter Netta Montoya [facility] Start: 09-13-2022 End: 09-14-2022 ambulatory JANETT BALBUENA [facility] Other Start: 09-13-2022 Office outpatient visit 15 minutes Netta Montoya [facility] Start: 08-23-2022 End: 08-24-2022 ambulatory TONY DICKINSON Facility:[facility] Start: 08-22-2022 End: 08-23-2022 ambulatory JANETT BALBUENA Facility:[facility] Start: 08-08-2022 End: 08-09-[address] PELON ALEXANDRE Facility:[facility] Start: 08-01-2022 Adult health examination Netta Montoya Other [employer] Other Start: 08-01-2022 Gynecological examination normal Netta Montoya Other [employer] Other Start: 08-01-2022 Pre-procedure evaluation check Netta Montoya Other [employer] Other Start: 07-11-2022 End: 07-12-[address] NETTA MONTOYA Facility:[facility] Start: 07-05-2022 End: 07-06-2022 ambulatory BASILIO Kp JUÁREZAELXEI Facility:[facility] Start: 04-08-2022 End: 04-09-[address] DOCTOR DESHPANDE Facility:[facility] Start: 04-05-2022 ambulatory SABINA DELGADILLO . Facility:[facility] Start: 03-28-2022 Encounter for other preprocedural examination DR DOCTOR DESHPANDE [facility] Start: 03-27-2022 End: 03-28-[address] [...] Treatment Date Care Activity Detail Author Start: 12-15-2034 RSV Vaccine (1 - 1-d ose 75+ series) RSV Vaccine (1 - 1-dose 75+ series) [facility] Start: 05-11-2025 Influenza vaccination Influenz a Vaccine (Season Ended) [facility] Start: 03-23-2025 End: 03-23-2025 Patient encounter procedure Radiology Comment on above: Left knee pain, unsp ecified chronicity [M25.562] Start: 12-15-2024 Advance Directive Discussion Advance Directive Discussion [facility] Start: 12-15-2024 Screening for osteoporosis Bone Density Screening [facility] Start: 09-30-2024 Cryptosporidium sp A g [Presence] in Stool by Immunoassay [facility] Start: 09-30-2024 Giardia lamblia Ag [Presence] in Stool by Immunoassay [facility] Start: 05-11-2024 Covid-19 Vaccine ( season) Covid-19 Vaccine ( season) [facility] Start: 05-11-2024 Influenza vaccination INFLUENZ A VACCINE (Season Ended) [facility] Start: 02-21-2024 End: 02-20-2025 REQUEST FOR MISC LAB SENDOUT REQUEST FOR MISC LAB SENDOUT Lab Routine Pain in prosthetic joint, subsequent encounter Expected: 02/21/2024, Expires: 02/20/2025 [facility] Comment on above: Expected: 02/21/2024 , Expires: 02/20/2025 Start: 01-30-2024 End: 01-30-2024 Patient encounter procedure 01/30/2024 1:00 PM EDT Office Visit [facility] [address] [place] [address] Radha Irvin, STRATEGIC INTELLIGENCE OFFICER-ACTIVITIES DIRECTOR [address] [place] [address] [facility] Start: 08-09-2023 End: 09-06-2023 C-reactive protein C REACTIVE PROTEIN Lab Routine Pain in prosthetic joint, subsequent encounter Expected: 08/09/2023, Expires: 09/06/2023 [facility] Comment on above: Expected: 08/09/2023 , Expires: 09/06/2023 Start: 08-09-2023 End: 09-06-2023 SEDIMENTATION RATE, AUTOMATED SEDIMENTATION RATE, AUTOMATED Lab Routine Pain in prosthetic joint, subsequent encounter Expected: 08/09/2023 (Approximate), Expires: 09/06/2023 [facility] Comment on above: Expected: 08/09/2023 (Approximate), Expires: 09/06/2023 Start: 07-06-2023 Hemoglobin A1c measurement HBA1C TEST [facility] Start: 06-06-2023 End: 06-06-2023 Patient encounter procedure 06/06/2023 1:10 PM EDT Office Visit [facility] [address] [place] [address] Sagar Krause MD [address] [place] [address] [facility] Start: 05-11-2023 COVID-19 VACCINE ( season) COVID-19 VACCINE ( season) [facility] Start: 05-11-2023 Influenza vaccination A [facility] Start: 05-09-2023 [facility] Start: 01-04-2023 End: 01-04-2023 ambulatory 01/04/2023 Pre-Operative Nurse Assessment Internal Medicine [facility] Pre Admission Start: 05-11-2022 Influenza vaccination INFLUENZA VACC INE (#1) [facility] Start: 12-15-2009 Pneumococcal Vaccine : 50+ (1 of 1 - PCV) Pneumococcal Vaccine: 50+ (1 of 1 - PCV) [facility] Start: 12-15-2009 Shingrix Vaccine (1 of 2) Fitzpatrick grix Vaccine (1 of 2) [facility] Start: 12-15-2009 Zoster vaccine hzv l ag for subcutaneous use ZOSTER (SHINGLES) VACCINE (1 of 2) [facility] Start: 12-15-2004 Diabetes Screening Diabetes Screenin g [facility] Start: 12-15-2004 Lipid panel Lipid Screening [facility] Start: 12-15-2004 Screening for malign ant neoplasm of colon [facility] Start: 1999 Lipid panel LIPID SCREENING [facility] Start: 1999 Screening for malign ant neoplasm of breast [facility] Start: 12-15-1980 Screening for malign ant neoplasm of cervix CERVICAL CANCER SCREENING DISCUSSION [facility] Start: 12-15-1978 Third diphtheria, te tanus and acellular pertussis (DTaP) vaccination TDAP (ADULT) [facility] Start: 12-15-1978 Urine microalbumin profile DTaP,Tdap,Td Vaccine (1 - Tdap) [facility] Start: 12-15-1977 Anxiety Screening Anxiety Screening [facility] Start: 12-15-1977 Depression Screening Depression Scre ening [facility] Start: 12-15-1977 Hepatitis C screening Hepatitis C Sc reening [facility] Start: 12-15-1977 HIV screening HIV Screening [facility] Start: 12-15-1974 HIV screening HIV SCREENING DISCUSSION [facility] Start: 06-16-1960 COVID-19 VACCINE (#1) COVID-19 VACCI NE (#1) [facility] Start: 1959 Diabetic foot examination DIABETIC F OOT EXAM [facility] Start: 1959 Glaucoma screening EYE EXAM [facility] Start: 1959 Hepatitis C screening HEPATITI S C VIRUS SCREENING [facility] Start: 1959 Lipid panel LIPIDS [facility] Start: 1959 Tetanus vaccination TETANUS [facility] Start: 1959 Thyroid stimulating hormone measurement TSH [facility] Start: 1959 Urine screening for protein URINE MICROALBUMIN TEST [facility] Comprehensive metabo lic 2000 panel - Serum or Plasma [facility] Radiography for bone length studies XR BONE LENGTH STUDY Imaging Routine Pain in prosthetic joint, sequela 11/30/2022 1:41 PM EDT [facility] Supine abdominal X-ray [facility] XR Knee - left 3 Views XR KNEE L EFT 3 VIEWS Imaging Routine Pain in prosthetic joint, sequela 11/30/2022 1:41 PM EDT [facility] Work Phone: XR Knee - left 3 Views XR KNEE L EFT 3 VIEWS Imaging Routine Hx of total knee arthroplasty, left 02/22/2023 2:50 PM EDT [employer] XR Knee - left 3 Views XR KNEE L EFT 3 VIEWS Imaging Routine Post-op pain 08/09/2023 2:03 PM EST [employer] XR Knee - left 3 Views XR KNEE L EFT 3 VIEWS Imaging Routine Hx of total knee arthroplasty, left 12/26/2023 1:43 PM EDT [employer] XR Knee - left 3 Views XR KNEE L EFT 3 VIEWS Imaging Routine Hx of total knee arthroplasty, left 02/21/2024 1:11 PM EDT [employer] End: 03-27-2026 XR Knee - left 4 Views XR KNEE GENERAL 4V AP BOTH/PA BOTH/LAT/MERC LEFT Radiology Routine Left knee pain, unspecified chronicity 1 Occurrences starting 02/25/2025 until 03/27/2026 [facility] Work Phone: Comment on above: 1 Occurrences starti ng 02/25/2025 until 03/27/2026 [facility] Payers Date Payer Category Payer Private Health Insurance 2015 Medicare [id number] 1959 Unknown [id number] 2.16.84 0.1.061826.3.579.2.593 1959 Unknown [id number] 2.16.84 0.1.655340.3.579.2.593 1959 Unknown [id number] 2.16.84 0.1.459369.3.579.2.593 1959 Unknown [id number] 2.16.84 0.1.702891.3.579.2.593 1959 Unknown [id number] 2.16.84 0.1.061372.3.579.2.593 1959 Unknown [id number] 2.16.84 0.1.434769.3.579.2.593 1959 Unknown [id number] 2.16.84 0.1.614314.3.579.2.593 1959 Unknown [id number] 2.16.84 0.1.674848.3.579.2.593 1959 Unknown [id number] 2.16.84 0.1.561430.3.579.2.593 1959 Unknown [id number] 2.16.84 0.1.462913.3.579.2.593 1959 Unknown [id number] 2.16.84 0.1.720780.3.579.2.593 1959 Unknown [id number] 2.16.84 0.1.244542.3.579.2.593 1959 Unknown [id number] 2.16.84 0.1.894854.3.579.2.593 1959 Unknown [id number] 2.16.84 0.1.135777.3.579.2.593 1959 Unknown [id number] 2.16.84 0.1.398967.3.579.2.593 1959 Unknown [id number] 2.16.84 0.1.443577.3.579.2.593 1959 Unknown [id number] 2.16.84 0.1.378703.3.579.2.593 1959 Unknown [id number] 2.16.84 0.1.839266.3.579.2.593 1959 Unknown [id number] 2.16.84 0.1.073296.3.579.2.593 1959 Unknown [id number] 2.16.8 40.1.109024.3.579.2.983 1959 Unknown [id number] 2.16.8 40.1.574089.3.579.2.983 1959 Unknown [id number] 2.16.8 40.1.485915.3.579.2.983 1959 Unknown [id number] 2.16.8 40.1.131823.3.579.2.983 1959 Unknown [id number] 2.16.8 40.1.748324.3.579.2.983 1959 Unknown [id number] 2.16.8 40.1.233300.3.579.2.983 1959 Unknown [id number] 2.16. 840.1.303157.3.579.2.1286 1959 Unknown [id number] 2.16. 840.1.552063.3.579.2.128 1959 Unknown [id number] 2.16.8 40.1.463436.3.579.2.6 1959 Unknown [id number] 2.16.8 40.1.142134.3.579.2.1286 1959 Unknown [id number] 2.16.8 40.1.090217.3.579.2.1286 1959 Unknown [id number] 2.16.8 40.1.630663.3.579.2.1286 1959 Unknown [id number] 2.16. 840.1.323231.3.579.2.196 1959 Unknown [id number] 2.16. 840.1.374789.3.579.2.196 1959 Unknown [id number] 2.16. 840.1.475899.3.579.2.196 1959 Unknown [id number] 2.16. 840.1.272939.3.579.2.196 1959 Unknown [id number] 2.16. 840.1.046617.3.579.2.196 1960 Medicare [id number] 2. 16840.1.018323.19 Medicare Medicare [id number] Private Health Insurance [facility] [id number] Unknown MMO [id number] Social History Date Type Detail Facility Unknown if ever smoked [email or web address] Other Start: 02-22-2023 End: 12-26-2023 Sex Assigned At [employer] Other Start: 10-11-2015 End: 11-30-2022 Tobacco smoking status NHIS Never smoked tobacco [facility] Start: 11-30-2022 Tobacco use and exposure Smokeless tobacco non-user [facility] Start: 11-30-2022 End: 02-21-2024 Alcohol intake Ex-drinker (finding) [facility] Start: 1960 Sex Assigned At Not on file A [facility] Start: 02-22-2023 End: 12-26-2023 History of Social function [facility] Start: 01-19-2023 End: 01-29-2023 Exposure to SARS-CoV-2 (event) Not sure [facility] [facility] 1960 Sex Assigned At Female F [facility] Start: 10-01-2024 Sex Patient sex un known (finding) [facility] Start: 10-21-2024 End: 12-27-2024 Sex Female (finding) [facility] Start: 10-11-2015 Alcoholic beverage intake Current non-drinker of alcohol (finding) [facility] Medical Equipment Procedure Code Equipment Code Equipment Origin al Text Equipment Identifier Dates One Touch Ultra Test Strips Insert - Knee - [id number] Start: 01-29-2023 Patella - Knee - [id number] Start: 01-29-2023 Revision Pressfi t Stem 12mmx 60 [id number] Start: 01-29-2023 Revision Tibial Base Sz 2 [id number] Start: 01-29-2023 Rev Offset Stem 2mm [id number] t: 01-29-2023 Rev Distal Femor al Augment Sz 5 4mm [id number] Start: 01-29-2023 Rev Crs Femoral Sz 5 Left [id number] Start: 01-29-2023 Palacos R 1 X 40 Us - [id number] Start: 01-29-2023 Palacos R & G Smooth ne Cement High-Viscosity With Gentamicin - [id number] Start: 01-29-2023 Blood Sugar Diagnostic (Onetouch [...] Dr. Mccord to discuss SCS. Please let promotion writer know when scheduled. Smooth Sci will need notified. Imaging obtained. 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 8:57am Hypothyroidism acute October 112024 8:57am Intolerance to BiPAP/CPAP acute October 21 8:57am LUIS (obstructive sleep apnea) acute October 21 8:57am Restless leg syndrome acute Feb ruary 2024 8:57am Vitamin B12 deficiency acute Fe bruary 2024 8:57am Maxillary sinusitis acute December [...] and diarrhea acute December 26, 2024 10:06am [facility] Work Phone: 1(343) 432-375602-11-2025 Evaluation note* Diagnosis Onset Date Resolution Status Admit Date Chronic insomnia acute October 21, 2024 8:57am Depression acute October 21, 2024 8:57am Hypnotic dependence acute 2024 8:57am Hypothyroidism acute October 112024 8:57am Intolerance to BiPAP/CPAP acute October 21, 2024 8:57am LUIS (obstructive sleep apnea) acute October 21, 2024 8:57am Restless leg syndrome acute Feb ru2024 8:57am Vitamin B12 deficiency acute Fe bruary 2024 8:57am Maxillary sinusitis acute December [...] and diarrhea acute December 26, 2024 10:06am [facility] Work Phone: 1(811) 208-179001-21-2025 Evaluation note* Diagnosis Onset Date Resolution Status [...] h hyperglycemia acute December 10, 2024 8:54am [facility] Work Phone: 1(413) 546-573311-19-2024 Evaluation note* Diagnosis Onset Date Resolution Status [...] B12 deficiency acute Fe bruary 2024 8:57am [facility] Work Phone: 1(619) 580-331311-07-2024 Evaluation note* Diagnosis Onset Date Resolution Status [...] GERD (gastroesophageal reflu x disease) acute August 29, 024 10:41am History of pancreatitis acute D ecember [...] 1:49pm Nausea acute September 30, 2024 1:49pm [facility] Work Phone: 1(241) 160-954906-13-2024 History of Present illness Narrative* Sandra Ally [...] 02/21/2024 1:17 PM Patient: Emily Macias MR#: [id number] : 1960 Age: 63 y.o. Referring Physician: [...] daily. 60 capsule 0 Cholecalciferol 250 MCG (47207 UT) capsule capsule Take by mouth daily. [...] DR tablet Take by mouth daily. Pancrelipase, Lff-Mhgv-Msmz, (CREON PO) Take 36,000 Units by mouth. [...] by Nasal route once for 1 dose. [place] into the nose as directed. Call 911. [...] 60 capsule, Rfl: 0 Cholecalciferol 250 MCG (07629 UT) capsule capsule, Take by mouth daily., [...] by mouth daily., Disp: , Rfl: Pancrelipase, Bzx-Siqq-Negd, (CREON PO), Take 36,000 Units by mouth. [...] by Nasal route once for 1 dose. [place] into the nose as directed. Call 911. 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 Should she need additional [...] have reviewed the findings of the clinical community support specialist and agree with their assessment. [...] 02/21/2024 1:17 PM Patient: Emily Macias MR#: [id number] : 1960 Age: 63 y.o. Referring Physician: [...] daily. 60 capsule 0 Cholecalciferol 250 MCG (88130 UT) capsule capsule Take by mouth daily. [...] DR tablet Take by mouth daily. Pancrelipase, Ysc-Lpsh-Nqzl, (CREON PO) Take 36,000 Units by mouth. [...] by Nasal route once for 1 dose. [place] into the nose as directed. Call 911. [...] 60 capsule, Rfl: 0 Cholecalciferol 250 MCG (09242 UT) capsule capsule, Take by mouth daily., [...] by mouth daily., Disp: , Rfl: Pancrelipase, Jrv-Olmf-Ccpr, (CREON PO), Take 36,000 Units by mouth. [...] by Nasal route once for 1 dose. [place]on into the nose as directed. Call 911. [...] zanaflex [tizanidine], and vancomycin. documented in this encounterUniversity [facility]04-17-2024 History of Present illness Narrative* Raven Mera - 12/26/2023 2:00 PM EDT Ortho Nurse - Established Patient Intake Room#: 5 Date: 12/26/2023 1:55 PM Patient: Emily Macias MR#: [id number] : 1960 Age: 63 y.o. 1yr L [...] daily. 60 capsule 0 Cholecalciferol 250 MCG (28895 UT) capsule capsule Take by mouth daily. [...] DR tablet Take by mouth daily. Pancrelipase, Jyy-Ustw-Fixs, (CREON PO) Take 36,000 Units by mouth. [...] by Nasal route once for 1 dose. [place] into the nose as directed. Call 911. [...] 60 capsule, Rfl: 0 Cholecalciferol 250 MCG (90499 UT) capsule capsule, Take by mouth daily., [...] by mouth daily., Disp: , Rfl: Pancrelipase, Zhz-Hoxt-Sgqq, (CREON PO), Take 36,000 Units by mouth. [...] by Nasal route once for 1 dose. Easton into the nose as directed. Call 911. [...] zanaflex [tizanidine], and vancomycin. * Radha Irvin APRN-ACTIVITIES DIRECTOR - 12/26/2023 2:00 PM EDT SUBJECTIVE: Emily [...] She thinks she had that done at [facility]. We will try and obtain [...] up with Dr. Krause for clinical examination. ([id number]) I have reviewed the findings of the clinical community support specialist and agree with their assessment. Rahda Irvin APRN-KEIRA Ortho Nurse - Established Patient Intake Room#: 5 Date: 12/26/2023 1:55 PM Patient: Emily Macias MR#: [id number] : 1960 Age: 63 y.o. 1yr L [...] daily. 60 capsule 0 Cholecalciferol 250 MCG (12083 UT) capsule capsule Take by mouth daily. [...] DR tablet Take by mouth daily. Pancrelipase, Ail-Cpod-Naux, (CREON PO) Take 36,000 Units by mouth. [...] by Nasal route once for 1 dose. Easton into the nose as directed. Call 911. [...] 60 capsule, Rfl: 0 Cholecalciferol 250 MCG (97566 UT) capsule capsule, Take by mouth daily., [...] by mouth daily., Disp: , Rfl: Pancrelipase, Yho-Nxkp-Ttea, (CREON PO), Take 36,000 Units by mouth. [...] by Nasal route once for 1 dose. Easton into the nose as directed. Call 911. [...] zanaflex [tizanidine], and vancomycin. documented in this encounterUniversity Hospitals [facility] Center12-04-2023 Evaluation note* Encounter Date Diagnosis Assessment Notes Treatment Notes Treatment Clinical Notes Aug, Piriformis syndrome, right (ICD-10 - G57.01) Pt declines PT at this time. Gave handouts for exercises and use flexeril qhs. Aug, Trochanteric bursitis, right hip (ICD-10 - M70.61) Pt declines PT. Muscle relaxer and handouts given. [email or web address] Other 11-30-2023 History of Present illness Narrative* [...] 08/09/2023 2:58 PM Patient: Emily Macias MR#: [id number] : 1960 Age: 62 y.o. Referring Physician: Sagar Krause MD Insurance: Payor: MEDICARE AET HMO OR O / Plan: MEDICARE AET[employer] HMO / Product Type: *No Product type* [...] DR tablet Take by mouth daily. Pancrelipase, Xja-Kfqr-Qgtl, (CREON PO) Take 36,000 Units by mouth. [...] taking: Reported on 08/09/2023) Cholecalciferol 250 MCG (45906 UT) capsule capsule Take by mouth daily. [...] by Nasal route once for 1 dose. Easton into the nose as directed. Call 911. [...] have reviewed the findings of the clinical community support specialist and agree with their assessment. [...] pinching . Date: 08/09/2023 2:58 PM Patient: Emliy Macias MR#: [id number] : 1960 Age: 62 y.o. Referring Physician: [...] DR tablet Take by mouth daily. Pancrelipase, Yed-Qrxu-Swxo, (CREON PO) Take 36,000 Units by mouth. [...] taking: Reported on 08/09/2023) Cholecalciferol 250 MCG (63038 UT) capsule capsule Take by mouth daily. [...] by Nasal route once for 1 dose. Easton into the nose as directed. Call 911. [...] zanaflex [tizanidine], and vancomycin. documented in this encounterUniversity Hospitals [facility] Center08-15-2023 Evaluation note* Encounter Date Diagnosis Assessment Notes Treatment Notes Treatment Clinical Notes Apr, Abdominal cramping (ICD-10 - R10.9) Patient reports doing well Apr, Diverticulosis (ICD-10 - K57.90) Apr, Alternating constipation and diarrhea (ICD-10 - R19.8) Apr, Pancreatic atrophy (ICD-10 - K86.89) Apr, Fatty liver (ICD-10 - K76.0) [email or web address] Other 08-11-2023 Evaluation note* Encounter Date Diagnosis Assessment Notes Treatment Notes Treatment Clinical Notes Apr, Type 2 diabetes mellitus with hyperglycemia, without long-term current use of insulin (ICD-10 - E11.65) [email or web address] Other 06-15-2023 History of Present illness Narrative* [...] 02/22/2023 3:16 PM Patient: Emily Macias MR#: [id number] : 1960 Age: 62 y.o. Referring Physician: [...] daily. 84 capsule 0 Cholecalciferol 250 MCG (16477 UT) capsule capsule Take by mouth daily. [...] by Nasal route once for 1 dose. Easton into the nose as directed. Call 911. If no response in 2 minutes use a new nasal spray in other nostril. Repeat until help arrives. 1Each [address] Omepraz[address] tablet Take by mouth daily. oxyCODONE 5 MG tablet Take 1-2 tabs po q 4-6 hours prn pain. Wean as tolerated. 20 tablet 0 Pancrelipase, Btz-Jahv-Bpao, (CREON PO) Take 36,000 Units by mouth. [...] 84 capsule, Rfl: 0 Cholecalciferol 250 MCG (42493 UT) capsule capsule, Take by mouth daily., [...] by Nasal route once for 1 dose. [place] into the nose as directed. Call 911. [...] tolerated., Disp: 20 tablet, Rfl: 0 Pancrelipase, Gme-Bazj-Yxof, (CREON PO), Take 36,000 Units by mouth. [...] zanaflex [tizanidine], and vancomycin. * Radha Irvin APRN-ACTIVITIES DIRECTOR - 02/22/2023 3:00 PM EDT HPI: Emily [...] understanding. All pertinent portions of the clinical community support specialist documentation was reviewed and agree. DANIELLE Gimenez I have reviewed the findings of the clinical community support specialist and agree with their assessment. DANIELLE Gimenez Ortho Nurse - Established Patient Intake Room#: 5 Patient is S/P L knee medial/partial revision to TKA. Patient using walker today and penelope hose are in place. She states the worse pain is at HS while trying to sleep. Sitting pain 4/10 Walking pain is 5/10 Date: 02/22/2023 3:16 PM Patient: Emily Macias MR#: [id number] : 1960 Age: 62 y.o. Referring Physician: Radha Irvin APRN-CNP Insurance: Payor: MEDICARE AET HMO OR O / Plan: MEDICARE [employer]ET[employer] HMO / Product Type: *No Product type* [...] daily. 84 capsule 0 Cholecalciferol 250 MCG (44446 UT) capsule capsule Take by mouth daily. [...] by Nasal route once for 1 dose. Easton into the nose as directed. Call 911. If no response in 2 minutes use a new nasal spray in other nostril. Repeat until help arrives. 1Each 0 Omeprazole [address] tablet Take by mouth daily. oxyCODONE 5 MG tablet Take 1-2 tabs po q 4-6 hours prn pain. Wean as tolerated. 20 tablet 0 Pancrelipase, Fod-Aqgi-Hehh, (CREON PO) Take 36,000 Units by mouth. [...] 84 capsule, Rfl: 0 Cholecalciferol 250 MCG (05460 UT) capsule capsule, Take by mouth daily., [...] by Nasal route once for 1 dose. [place]on into the nose as directed. Call 911. [...] tolerated., Disp: 20 tablet, Rfl: 0 Pancrelipase, Jyq-Bajk-Gfst, (CREON PO), Take 36,000 Units by mouth. [...] zanaflex [tizanidine], and vancomycin. documented in this encounterUniversity Hospitals [facility] Center05-10-2023 Evaluation note* Encounter Date Diagnosis Assessment Notes Treatment Notes Treatment Clinical Notes January, Alternating constipation and diarrhea (ICD-10 - R19.8) [email or web address] Other 05-02-2023 Evaluation note* Encounter Date Diagnosis [...] of Farxiga and pt will trial those. [email or web address] Other 04-24-2023 Evaluation note* Encounter Date Diagnosis [...] scan in October of last year in [place], following a colonoscopy that was done in September Start Mesalamine Dec, Alternating constipation and diarrhea (ICD-10 - R19.8) Start low fod map diet Start probiotics [email or web address] Other 03-23-2023 History of Present illness Narrative* Paulo Cooper, CRAFT MANAGER - 11/30/2022 1:30 PM EDT Ortho Nurse [...] 11/30/2022 2:13 PM Patient: Emily Macias MR#: [id number] : 1960 Age: 61 y.o. Referring Physician: Self, Self Insurance: Payor: MEDICARE [employer] HMO OR PPO / Plan: MEDICARE [employer] HMO / Product Type: *No Product type* [...] [x]cane, []bracing Are you followed by a coding team lead? [] [x] Name: Are you followed by pain management? [] [x] Name: Are you followed by any other specialists? [x] [] Name: RA Dr Felipa Santana Outpatient Medications Prior to Visit Medication Sig Dispense Refill Ascorbic Acid 1000 MG tablet Take 1 tablet by mouth daily. B Complex Vitamins (B COMPLEX 1 PO) Take by mouth. Biotin 10003 MCG tablet Take by mouth. Cholecalciferol 250 MCG (40689 UT) capsule capsule Take by mouth. Cobalamin [...] Take by mouth., Disp: , Rfl: Biotin 91755 MCG tablet, Take by mouth., Disp: , Rfl: Cholecalciferol 250 MCG (34331 UT) capsule capsule, Take by mouth., Disp: [...] symptoms. She has history of partial medial [place] uni knee on 08/13/[address] Lazar. [...] left knee. She has a medial partial [place] uni-arthroplasty in place with severe adjacent patellofemoral arthritis. IMPRESSION: 1.) History of left partial medial [place] uni knee on 08/13/[address] Lazar. [...] conversion from uni to total for optimal intermediate management. We have discussed in great detail [...] of limb, and ultimately loss of life. penitentiary expectations, risks and general implant survivorship were also discussed. Despite these risks, the patient would liketo proceed with surgical planning. Today, we will initiate the pre-surgical process including nasalMRSA screening, scheduling an appointment for [facility] [place] and the potential surgical date, andreviewing and [...] Take by mouth., Disp: , Rfl: Biotin 36424 MCG tablet, Take by mouth., Disp: , Rfl: Cholecalciferol 250 MCG (69497 UT) capsule capsule, Take by mouth., Disp: [...] migraines Zanaflex [Tizanidine] Hallucination documented in this encounterUniversity Hospitals [facility] Center01-31-2023 Evaluation note* Encounter Date Diagnosis Assessment Notes Treatment Notes Treatment Clinical Notes Sep, Fibromyalgia (ICD-10 - M79.7) handicap placard rx handwritten Sep, Type 2 diabetes mellitus with hyperglycemia, without long-term current use of insulin (ICD-10 - E11.65) good readings on home meter with present meds. Sep, Positive ADRI (antinuclear antibody) (ICD-10 - R76.8) Suggested getting on cancellation list at Rheumatology [email or web address] Other 01-13-2023 Evaluation note* Encounter Date Diagnosis Assessment Notes Treatment Notes Treatment Clinical Notes Sep, Positive ADRI (antinuclear antibody) (ICD-10 - R76.8) Sep, Fibromyalgia (ICD-10 - M79.7) [email or web address] Other 01-04-2023 Evaluation note* Encounter Date Diagnosis Assessment Notes Treatment Notes Treatment Clinical Notes Sep, Abdominal cramping (ICD-10 - R10.9) Sep, Type 2 diabetes mellitus with hyperglycemia, without long-term current use of insulin (ICD-10 - E11.65) advised holding or decreasing dose of ozempic to 0.25/week as this could relate to GI side effects [email or web address] Other 10-31-2022 NotePROCEDURE: XR TIB_FIB RT 2V COMPARISON: 08/24/2021 HISTORY: Pain in lower limb FINDINGS: BONES:No acute fracture or dislocation. Degenerative changes of the knee and ankle. Enthesopathic spurring of the calcaneus SOFT TISSUES:Negative. No visible soft tissue swelling. EFFUSION:None visible. OTHER: Negative. IMPRESSION: Osteoarthritis Electronically authenticated by: AWNDA DIANE Date: 2022-07-10 13:36[facility]06-29-2022 NoteCONSULTATION CONSULTATION DATE: 03/08/2022 HISTORY OF [...] of pain. 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 [facility] Signed and Approved by: SABINA DELGADILLO . 03/09/2022 13:38:00[facility]* Diagnosis Pain in prosthetic joint, sequela- Primary documented in this encounter [facility] CenterEvaluchristiana hospital noteNo InformationNort [employer] Other Evaluation note* Diagnosis Hx of total knee arthroplasty, left- Primary documented in this encounter [facility] noteNo assessment information availableAd[facility] Work Phone: Evaluation note* Diagnosis Post-op pain- Primary Other acute postoperative pain Pain in prosthetic joint, subsequent encounter [facility]* Diagnosis Hx of total knee arthroplasty, left- Primary documented in this [facility]* Diagnosis Hx of total knee arthroplasty, left- Primary Pain in prosthetic joint, subsequent encounter documented in this encounter [facility]* Diagnosis Left knee pain, unspecified chronicity- Primary documented in this encounter [facility] general Narrative - Reported* Type Description Date [...] divya itus with hyperglycemia, unspecified whether intermodal customer service insulin use Medical History Fitzpatrick splints, right, [...] AND ADENOIDECTOMY Hospitalization History mono Hospitalization History [employer] Other History general Narrative - Reported* Type [...] REMOVED Surgical History RIGHT ENDOSCOPIC PLANTAR FASCIO ORLANOD Surgical History RIGHT OPENING GASTROCNEMIUS REC ESSION [...] 01/29/2023 Hospitalization History mono Hospitalization History menegitis [email or web address] Other Reason for referral (narrative)* Consultation (Routine) - Patient to Arrange Specialty Diagnoses / Procedures Referred By Westley finnegan Referred To Contact Physical Therapy Diagnoses Hx of total knee arthroplasty, left Radha Irvin APRN-CNP [address] [place], [place] [id number] Referral ID Status Reason Start Date Expiration Date V isits Requested Visits Authorized [id number] Patient to Arrange 02/22/2023 03/18/2024 1 1 Scheduling Instructions . * Diagnostic X-Ray (Routine) - New Request Specialty Diagnoses / Procedures Referred By Westley finnegan Referred To Contact Diagnoses Hx of total knee arthroplasty, left Procedures XR KNEE LEFT 3 VIEWS Radha Irvin APRN-CNP [address] [id number] Referral ID Status Reason Start Date Expiration Date V isits Requested Visits Authorized [id number] New Request 02/20/2023 03/16/2024 1 1 [facility] Summary Purpose Family History Relationship Condition Age [...] 1 Abdominal cramping ( R10.9) Referral Organization [facility] OBOOK reginaldo Referring Provider First Name Netta Referring Provider Last Name Lindsay Referring Provider Specialty [facility] SPIRIT Navigation Referred Organization [facility] Referred Provider Ismael Early Referred Address [address] [place],[address] Referred Provider Specialty Gastroentero logy Referral Priority Routine Referral Appointment Date 2022-12-28 General Notes Sonali Cortez 10:30:02 AM >received today, notes locked and referral faxed Sonali Cortez 09/25/2022 10:48:23 AM >pt scheduled Reason 11/21/22 See phone note - this is related to a life consultant in [place] area testing labs. I do not have a copy of his labs. Diagnosis 1 Positive ADRI (antinu clear antibody) (R76.8) Referral Organization [facility] reginaldo Referring Provider First Name Netta Referring Provider Last Name Lindsay Referring Provider Specialty [facility] SPIRIT Navigation Referred Organization [facility] Referred Provider Cara Leo Referred Address [address] [place],[address] Referred Provider Specialty Rheumatology Referral Priority Routine Referral Appointment Date 2022-11-21 General Notes Sonali Cortez 09:22:28 AM >received today, notes attached and ins card attached. will call pt to see who she saw in [place] to get labs. JatinkaleeSonali 09/25/2022 10:37:57 AM >spoke with patient and was provided Dr. Balbuena phone number [phone] to request labs. told patient I would [...] XR BONE LENGTH STUDY Sagar Krause MD [address] [place], [place] [phone] Referral ID Status Reason Start Date Expiration Date V isits Requested Visits Authorized [id number] New Request 11/24/2022 12/19/2023 1 1 Specialty Diagnoses / Procedures Referred By Contac t Referred To Contact Diagnoses Pain in prosthetic joint, sequela Procedures XR KNEE LEFT 3 VIEWS Sagar Krause MD [address] [place] [phone] Referral ID Status Reason Start Date Expiration Date V isits Requested Visits Authorized [id number] New Request 11/24/2022 12/19/2023 1 1 Specialty Diagnoses / Procedures Referred By Contac t Referred To Contact Diagnoses Post-op pain Procedures XR KNEE LEFT 3 VIEWS Sagar Krause MD [address] [place] [address] Referral ID Status Reason Start Date Expiration Date V isits Requested Visits Authorized [id number] New Request 08/06/2023 08/30/2024 1 1 Specialty Diagnoses / Procedures Referred By Contac t Referred To Contact Diagnoses Hx of total knee arthroplasty, left Procedures XR KNEE LEFT 3 VIEWS Radha Irvin, STRATEGIC INTELLIGENCE OFFICER-KEIRA [address] [place] [address] Referral ID Status Reason Start Date Expiration Date V isits Requested Visits Authorized [id number] New Request 12/25/2023 01/18/2025 1 1 Specialty Diagnoses / Procedures Referred By Contac t Referred To Contact Diagnoses Hx of total knee arthroplasty, left Procedures XR KNEE LEFT 3 VIEWS Sagar Krause MD [address] [place] [address] Referral ID Status Reason Start Date Expiration Date V isits Requested Visits Authorized [id number] New Request 02/14/2024 03/10/2025 1 1 Chief Complaint and Reason for Visit Chief Complaint Abdominal Cramping, EPI Chief Complaint Abdominal Cramping, EPI Low back pain Chief Complaint Admit Date LUIS/ 30 MINS July 17, 2024 1 :45pm talk about blood sugars July 29, 024 9:30am One month follow up August 29, 2024 10:41am R14.0 R10.9 R19.8 R11.0 August 29, 024 11:47am 1 month follow up September [...] and content) DATE CREATED AUTHOR 09/08/2021 [facility] DATE CREATED AUTHOR AUTHOR'S ORGANIZ ATION 01/23/2023 [facility] DATE CREATED AUTHOR AUTHOR'S ORGANIZ ATION 02/29/2024 [facility] DATE CREATED AUTHOR AUTHOR'S ORGANIZ ATION 09/22/2024 [facility] DATE CREATED AUTHOR AUTHOR'S ORGANIZ ATION 12/28/2024 [facility] DATE CREATED AUTHOR AUTHOR'S ORGANIZ ATION 02/05/2025 [facility] DATE CREATED AUTHOR AUTHOR'S ORGANIZ ATION 02/16/2025 [facility] REASON FOR VISIT (unrecogniz ed section and content) Specialty Diagnoses / Procedures Referred By Contac t Referred To Contact Diagnoses Pain in prosthetic joint, sequela Procedures XR BONE LENGTH STUDY Sagar Krause MD [address] [place] [phone] Referral ID Status Reason Start Date Expiration Date V isits Requested Visits Authorized [id number] New Request 11/24/2022 12/19/2023 1 1 Reason Comments Pain Reason Comments Surgical Follow-up Specialty Diagnoses / Procedures Referred By Contac t Referred To Contact Diagnoses Post-op pain Procedures XR KNEE LEFT 3 VIEWS Sagar Krause MD [address] [place] [phone] Referral ID Status Reason Start Date Expiration Date V isits Requested Visits Authorized [id number] New Request 08/06/2023 08/30/2024 1 1 Reason Comments Pain Specialty Diagnoses / Procedures Referred By Contac t Referred To Contact Diagnoses Hx of total knee arthroplasty, left Procedures XR KNEE LEFT 3 VIEWS Radha Irvin, STRATEGIC INTELLIGENCE OFFICER-KEIRA [address] [place] [address] Referral ID Status Reason Start Date Expiration Date V isits Requested Visits Authorized [id number] New Request 12/25/2023 01/18/2025 1 1 Reason Comments Follow-up Specialty Diagnoses / Procedures Referred By Contac t Referred To Contact Diagnoses Hx of total knee arthroplasty, left Procedures XR KNEE LEFT 3 VIEWS Sagar Krause MD [address] [place] [address] Referral ID Status Reason Start Date Expiration Date V isits Requested Visits Authorized [id number] New Request 02/14/2024 03/10/2025 1 1 Care Teams (unrecognized sec tion and content) Woodwind Instruments Inspector Relationship Specialty Start Date End Date Netta Montoya MD [address] [facility] [place] [address] PCP - General Family Medicine 10/20/22 Woodwind Instruments Inspector Relationship Specialty Start Date End Date Netta Montoya MD [address] [place] [address] PCP - General Family Medicine 10/20/22 Woodwind Instruments Inspector Relationship Specialty Start Date End Date Netta Montoya MD [address] [place] [address] PCP - General Family Medicine 10/20/22 Team Status: Active Member Role Status Dates Netta Montoya MD Primary Care Provider Active Team Status: Inactive Member Role Status Dates Siva Ron MD Attending Provider Active Netta Montoya MD Primary Care Provider Active Team Status: Inactive Member Role Status Dates Netta Montoya MD Primary Care Provider Active Cara Leo MD Attending Provider Active Woodwind Instruments Inspector Relationship Specialty Start Date End Date Netta Montoya MD [address] [place] [address] PCP - General Family Medicine 10/20/22 Woodwind Instruments Inspector Relationship Specialty Start Date End Date Netta Montoya MD [address] [place] [address] PCP - General Family Medicine 10/20/22 Woodwind Instruments Inspector Relationship Specialty Start Date End Date Netta Montoya MD [address] [place] [address] PCP - General Family Medicine 10/20/22 Woodwind Instruments Inspector Relationship Specialty Start Date End Date Netta Montoya MD [address] [place] [address] PCP - General Family Medicine 10/20/22 Team [...] December 26, 2024 End: December 26, 2024 Woodwind Instruments Inspector Relationship Specialty Start Date End Date Andrew Berg [facility] [address] [facility] [place] [address] PCP - General 12/20/00 Daniel Castillo [address] [place] [address] Pain Management 02/25/25 Goals (unrecognized section and content) Goals may be documented in a n alternate section Source Comments (unrecognize d section and content) In the event this informatio n is protected by the Federal Confidentiality of Alcohol and Drug Abuse Patient Records regulations: The Federal rules restrict any use of the information to criminally investigate or prosecute any alcohol or drug abuse patient.[facility] FOR RECORDS PERTAINING TO PATIENTS WHO ARE [...] BE BASED ON THE PRIMARY CLINICAL RECORDS. [facility]. provides no warranty or guarantee of the accuracy or completeness of information in this document.
[2025-03-19 10:48] LABS: Anion Gap 13.8; Blood Urea Nitrogen 16.0 mg/dL (7.0-18.0); Calcium 9.7 mg/dL (8.5-10.1); Carbon Dioxide 27.3 mmol/L (21.0-32.0); Chloride 103 mmol/L (98-107); Estimated GFR (African America >60 (>=60 mL/min/1.73m^2); Estimated GFR (Non-African Ame >60 (>=60 mL/min/1.73m^2); Glucose 164 mg/dL (74-106); Potassium 4.1 mmol/L (3.5-5.1); Sodium 140 mmol/L (136-145)
== END 2025-03-19 09:49 | disposition home or self-care (01) ==
PROVIDERS: PCP Family Medicine; Visit Provider Family Medicine
DX: E11.65 Type 2 diabetes mellitus with hyperglycemia (principal); Z79.4 Long term (current) use of insulin
CPT/HCPCS: 36415; 80048; 82043; 82570; 83036

== ENCOUNTER 2025-06-22 08:58 | Outpatient (OUT) | payer MEDICARE, SELFPAY ==
--- OUTSIDE RECORDS SUMMARY | 2024-07-23 07:30 | XMS_ITS ---
Author Organization The [facility] in [place] Address [address] [place] [address] Care Team Providers Care Family Practice Md Name Role Phone Soila Joseph Primary Care Provider Philippe Oropeza [phone] REASON FOR VISIT 1yr f/u Encounters Encounter Location Date Provider Diagnosis [facility] [address] [facility] [address] [place] [address] 07/23/2024 Philippe Daniels Plan Of Treatment No Information Progress Notes * Lissy MACIASDOB:1960 (64 yo F)Acc No.[id number]:07/23/2024 UNLOCKED PROGRESS NOTE Follow Up Patient: Sushila FIGUEREDOYENNY Lissy Sandip Provider: Erin Kemp MD :1960 A ge:63 Y S ex:Female Date:07/23/2024 Address:[address] [place], [place] [id number] Pcp:Soila Joseph Subjective: * Chief Complaints: * 1 . 1yr f/u. * Medical History: Objective: * Vitals: Assessment: Plan: * Treatment: * * Electronic signature of Charbel Daniels MD, [id number] on 06/22/2025 at 09:01 AM EDT Sign off status: Pending Visit Status: C ANC (Cancelled) * Provider: Erin Kemp MD Date: 09/22/2023 Generated for Missy chow/Jarod/Kirillitting on: 1 09:01 AM EDT
--- OUTSIDE RECORDS SUMMARY | 2024-09-09 07:20 | XMS_ITS ---
Author Organization [facility] Address [address] [place] [address] Care Team Providers Care Air Conditioning Manager Name Role Phone Dr. Bar Small Primary Care Provider [phone] REASON FOR VISIT FILLING Encounters Encounter Location Date Provider Diagnosis [facility] [address] [place] [address] 09/09/2024 Bar Small Plan Of Treatment Next Appt Details Provider Name:Saba Steele , 09/07/2025 02:15:00 PM, [address] [place], [address], Progress Notes * CURTIS MACIASB:[birth year] 59 (64 yo F)Acc No.[id number]:09/09/2024 Patient: Sushila UDAY EMILY Provider: Sandip Small DDS :1960 A ge:63 Y S ex:Female Date:09/09/2024 Address:[address] [place], [place] [id number] Subjective: * Chief Complaints: * F ILLING * Electronic signature of Dr. Bar Small , [facility], [id number] on 06/22/2025 at 09:01 AM EDT Sign off status: Pending * Provider: Sandip Small DDS Date: 1 Generated for Missy chow/Jarod/Sravan on: 1 09:01 AM EDT
--- OUTSIDE RECORDS SUMMARY | 2024-10-14 09:30 | XMS_ITS ---
Author Organization [facility] Address [address] [place] [address] Care Team Providers Care Motor Patrol Operator Name Role Phone Dr. Bar Small Primary Care Provider [phone] Ligia Sherwood Unavailable [phone] REASON FOR VISIT FILLING Encounters Encounter Location Date Provider Diagnosis [facility] [address] [place] [address] 10/14/2024 Ligia Quiñonez Plan Of Treatment Next Appt Details Provider Name:Saba Steele , 09/07/2025 02:15:00 PM, [address], [place], [address], Progress Notes * CURTIS MACIASB:[birth year] 59 (64 yo F)Acc No.[id number]:10/14/2024 Patient: Sushila FRYEMADHUEMILY Provider: Sandip Quiñonez :1960 A ge:63 Y S ex:Female Date:10/14/2024 Address:[address] [place], [place] [phone] Pcp:Dr. Bar Small Subjective: * Chief Complaints: * F ILLING * Electronic signature of Berto Quiñonez DMD on 06/22/2025 at 09:02 AM EDT Sign off status: Pending * Provider: Sandip Quiñonez Date: 0 10/14/2024 Generated for Missy chow/Jarod/Sravan on: 1 09:02 AM EDT
--- OUTSIDE RECORDS SUMMARY | 2025-06-22 09:01 | XMS_ITS | Patient Health Record ---
Author Organization [facility] Address [address] [place] [address] Care Team Providers Care Forest Economics Professor Name Role Phone Dr. Bar Small Primary Care Provider [phone] Kapil Saba Steele Unavailable [phone] Ligia Quiñonez Unavailable [phone] Reason For Referral No Information Encounters Encounter Location Date Provider Diagnosis [facility] [address] [place] [address] 08/05/[address] [facility] [place] [address] 08/04/2024 Saba Steele Acute gingivitis, plaque induced K05.00 ; Other dental procedure status Z98.818 and Encounter for dental examination and cleaning with abnormal findings Z01.21 [facility] [address] [place] [address] 08/11/2024 Bar Small Dental caries on pit and fissure surface penetrating into dentin K02.52 [facility] [place] [address] 07/21/2024 Ligia Quiñonez Dental caries on pit and fissure surface penetrating into dentin K02.52 Assessments Encounter Date Diagnosis (ICD Code) Assessment Notes Treatment Notes Treatment Clinical Notes Section Notes 07/21/2024 Dental caries on pit and fissure surface penetrating into dentin (ICD-10 - K02.52) 08/04/2024 Acute gingivitis, plaque induced (ICD-10 - K05.00) 08/11/2024 Dental caries on pit and fissure surface penetrating into dentin (ICD-10 - K02.52) 08/04/2024 Other dental procedure status (ICD-10 - Z98.818) 08/04/2024 Encounter for dental examination and cleaning with abnormal findings (ICD-10 - Z01.21) Plan Of Treatment Next Appt Details Provider Name:Saba Steele , 09/07/2025 02:15:00 PM, [address], [place], [address], Insurance Providers Payer Name Payer Address Payer Phone Subscriber Number Group Number Insured Name Patient Relationship to Insured Coverage Start Date Coverage End Date [employer] [address] [place] [address] [phone] [id number] EMILY MACIAS Self - patient is the insured 3 DENTAL AETNA MEDICARE [address] [address] [place] [phone] [id number] EMILY MACIAS Self - patient is the insured 3
--- OUTSIDE RECORDS SUMMARY | 2025-06-22 09:01 | XMS_ITS | Clinical Summary ---
Author Organization [facility] Address [address] [place] [address] Care Team Providers Care Senior Sales Representative Name Role Phone Andrew Berg Primary Care Provider [phone] KennroyaDaniel Unavailable Allergies Active Allergy Reactions Criticality Noted [...] 12/15/2009 Shingrix Vaccine (1 of 2) 12/15/2009 Advance Directive Discussion 12/15/2024 Bone Density Screening 12/15/2024 Covid-19 Vaccine (1 - 2024-26 season) 2025 Influenza Vaccine (#1) 2025 RSV Vaccine (1 - 1-dose 75+ series) 12/15/2034 Insurance MEDICARE AETNA SUPPLEMENT Care Teams Senior Sales Representative Relationship Specialty Start Date End Date Andrew Berg [facility] [address] [place] [address] PCP - General 12/20/00 Daniel Castillo [address] [place] [address] Pain Management 02/25/25
--- OUTSIDE RECORDS SUMMARY | 2025-06-22 09:01 | XMS_ITS | Clinical Summary ---
Author Organization [facility] Address [address] [place] [address] Care Team Providers Care Culture Manager Name Role Phone Unavailable Primary Care Provider [...]
--- OUTSIDE RECORDS SUMMARY | 2025-06-22 09:01 | XMS_ITS | Patient Health Record ---
Author Organization [facility] [place] Address [address] [place] [address] Care Team Providers Care Instructional Consultant Name Role Phone Soila Joseph Primary Care Provider Philippe Oropeza Unavailable [phone] Allergies Allergen (clinical drug ingredient) Drug/Non Drug Allergy documented on EMR Reaction Allergy Type Onset Date Status Zanaflex (tizanidine) Unknown Drug Allergy Active milnacipran Savella Unknown Drug Allergy Activ e Reason For Referral No Information Medications Medication SIG (Take, Route, Frequency, Duration) Notes Start Date End Date Status Eszopiclone 3 MG TAKE 1 TABLET BY MOUTH IMMEDIATLY BEFORE BEDTIME EVERY DAY; Duration: 90 You need to change the patient's name to Lissy. Otherwise my computer cannot find her 02/20/2024 Active CPAP Supplies -- Mask and Tubing Size mask, headgear, tubings, heated humidifier, filters and water chamber. Lifetime need. 08/17/2023 Active CPAP Supplies -- maske, tubing, eadgear, filters, heated umidifier-all supplie needed CPAP 9-12 cm H20; Duration: 365 days HALO STYLE CHINSTRAP, NASAL CUSHION MASK - NOT FULL FACE. Please use equipment compatible with current CPAP machine. Supplies x 1 year. Active Melatonin 10 MG as directed Orally Active Eszopiclone 2 MG 1 tablet immediately before bedtime Orally Once a day; Duration: 30 days 08/17/2021 Not-Taking Mesalamine 1.2 GM 2 tablets with a meal Orally Once a day Active Doxepin HCl 100 MG 1 capsule at bedtime Orally Twice a day Not-Taking Turmeric Active Levothyroxine Sodium 112 MCG 1 tablet in the morning on an empty stomach Orally Once a day; Duration: 30 days Active Magnesium Active Multi Vitamin - 1 tablet Orally Once a day Active metFORMIN HCl ER (MOD) 1000 MG 1 tablet with evening meal Orally Once a day; Duration: 30 day(s) Active Vitamin C Active Meloxicam 7.5 MG 2 capsule Orally Once a day Active Creon 29637-304858 UNIT as directed Orally Active Ramelteon 8 MG 1 tablet at bedtime as needed Orally Once a day; Duration: 30 days Not-Taking Armodafinil 150 MG 1 tablet Orally Once a day; Duration: 30 days 08/17/2023 Active metFORMIN HCl 1000 MG 1 tablet with a meal Orally bid Active oxyBUTYnin Chloride 5 MG 1 tablet Orally Twice a day; Duration: 30 day(s) Active CeleBREX 200 MG 1 [...] Status W/U Status Risk Notes Problem Insomnia (945488666) Insomnia, unspecified (G47.00) Active confirmed Problem Excessive daytime sleepiness (5124636204) Excessive daytime sleepiness (G47.19) Active confirmed Problem Obstructive sleep apnea syndrome (40400321) Obstructive sleep apnea syndrome, mild (G47.33) Active confirmed Plan Of Treatment No Information Insurance Providers Payer Name Payer Address Payer Phone Subscriber Number Group Number Insured Name Patient Relationship to Insured Coverage Start Date Coverage End Date AETNA MEDICARE [address] [place] [id number] Lissy Chu Self - patient is the insured Medical (General) History Surgical History Surgery Date(Month/Year) History of cholecystectomy History of hemorrhoidectomy History of hysterectomy Foot Surgery, Right 03/2020 Surgical / procedural histor y ovarian cyst removed, fundiplication, rectocele Foot Surgery, Left 10/2019
--- OUTSIDE RECORDS SUMMARY | 2025-06-22 09:01 | XMS_ITS | Clinical Summary ---
Author Organization [employer] Address [address] [place] [address] Care Team Providers Care Astro Technician Name Role Phone Soila Joseph MD Primary Care Provider [phone] Allergies Active Allergy Reactions Criticality Noted Date Comments Milnacipran Headache 11/30/2022 migraines Vancomycin Hives Low 01/29/2023 Hives, itching Tizanidine Hallucination 11/30/2022 Medications levothyroxine 112 MCG tablet Take 1 tablet by mouth daily. AM 10/02/19 23 Active metFORMIN 1000 MG tablet 2 times daily. 08/29/20 Active Cholecalciferol 250 MCG (49673 UT) capsule capsule Take by mouth daily. [...] Apply to eye as needed. Active Pancrelipase, Kfu-Ybof-Zqoo, (CREON PO) Take 36,000 Units by mouth. [...] by Nasal route once for 1 dose. Yatahey into the nose as directed. Call 911. [...] Encounters Date Type Department Care Team Description 05/30/2025 Refill [facility] [address] [id number] Tayler Augustin, SPANISH MEDICAL INTERPRETER-UTILITY WORKER [employer] from Last 3 Months Family History Medical [...] COVID-19 VACCINE (1 - 2023-2 5 season) 2025 INFLUENZA VACCINE (#1) 2025 RSV VACCINE (1 - 1-dose 75+ series) 12/15/2034 HEP B VACCINE Aged Out No longer elig ible based on patient's age to complete this topic Medical Devices Implanted Type Area Blueprint Trimmer Device Identifier Shelf Expiration Date Model / Serial / Lot Patella - Knee - [id number] Implanted:Qty: 1 on 01/29/2023 by Sagar Gordon MD at [facility] Left: Knee 12/09/2027 / / [id number] Revision Pressfit Stem 12mmx 60 Implanted:Qty: 1 on 01/29/2023 by Sagar Gordon MD at [facility] Left: Knee 07/10/2032 1513-12-060 / / [id number] Revision Tibial Base Sz 2 Implanted:Qty: 1 on 01/29/2023 by Sagar Gordon MD at [facility] Left: Knee 09/09/2032 1506-40-002 / / [id number] Rev Offset Stem 2mm Implanted:Qty: 1 on 01/29/2023 by Sagar Gordon MD at [facility] Left: Knee DEPUY 01/08/2028 1513-02-000 / / [id number] Rev Distal Femoral Augment Sz 5 4mm Implanted:Qty: 1 on 01/29/2023 by Sagar Gordon MD at [facility] Left: Knee DEPUY 03/09/2032 1547-05-001 / / [id number] Rev Crs Femoral Sz 5 Left Implanted:Qty: 1 on 01/29/2023 by Sagar Gordon MD at [facility] Left: Knee DEPUY 03/09/2032 1504-40-105 / / [id number] Palacos R 1 X 40 Us - [id number] Implanted:Qty: 2 on 01/29/2023 by Sagar Gordon MD at [facility] Left: Knee 07/10/2027 / / [id number] Palacos R [employer] Bone Cement High-Viscosity With Gentamicin - [id number] Implanted:Qty: 1 on 01/29/2023 by Sagar Gordon MD at [facility] Left: Knee 11/07/2025 / / [id number] Insert - Knee - [id number] Implanted:Qty: 1 on 01/29/2023 by Sagar Gordon MD at [facility] Left: Knee DEPUY 06/09/2027 / / [id number] Procedures Procedure Name Priority Date/Time Associated Diagnosis Comments HEMOGLOBIN A1C Routine 01/04/2023 12:50 PM EDT Preop testing Abnormal finding of blood chemistry, unspecified from Last 3 Months or Most Recently Relevant to Health Maintenance Results * (ABNORMAL) HEMOGLOBIN A1C (01/04/2023 12:50 PM EDT) HEMOGLOBIN A1C 6.5(H) <6 % [address] Comment: NORMAL <5.7% PREDIABETES 5.7-6.4% DIABETES 6.5% OR HIGHER Estimated Average Glucose 140 mg/dL [address] Blood 01/04/2023 12:5 0 PM EDT 01/04/2023 1:03 PM EDT Sagar Gordon MD HEMATOLOGY ORDERABLES Final Resu lt [address] [address] from Last 3 Months or Most Recently Relevant to Health Maintenance Insurance Medicare Aetna HMO Advance Directives For more information, please contact: [phone] (7:30 AM - 6PM [facility], Sunday-Sunday) * Full Code (Latest Code Status on File) Date Activated Date Inactivated Comments 01/29/2023 4:58 PM Care Teams Astro Technician Relationship Specialty Start Date End Date Soila Joseph MD PCP - General Family Medicine 10/20/22
--- OUTSIDE RECORDS SUMMARY | 2025-06-22 09:01 | XMS_ITS | Clinical Summary ---
Author Organization [employer] [facility] tem Address [facility]-[id number] [address] [place] [address] Care Team Providers Care Clasp Machine Operator Name Role Phone Soila Joseph MD Primary Care Provider [phone] Allergies Active Allergy Reactions Criticality Noted Date Comments Morphine Hives 11/18/2020 Milnacipran 02/09/2017 Tizanidine 02/09/2017 Medications doxepin (SINEquan) 100 mg capsule Take 100 mg by mouth nightly. Active oxybutynin (DITROPAN) 5 mg tablet Take 5 mg by mouth daily. MAY TAKE 2 TABS IF NEEDED Active multivitamin-C h-jnhc-nbyqewc s tablet Take 1 tablet by mouth [...] (07/12/2017): Added automatically from request for surgery [id number] Disorder of sacrum 03/27/2017 Neck pain 02/12/2017 [...] Last Done Comments Diabetic Ophthalmology Exam 1959 Statin Use: Diabetic 1959 Depression Screening 1971 Tobacco Screening 1971 Adult BMI Screening 12/15/1977 Diabetic Foot Exam 12/15/1977 DTaP,Tdap and Td Vaccines (1 - Tdap) 12/15/1978 Zoster (Shingles) Vaccine (1 of 2) 12/15/2009 Fall Risk Screening 12/15/2024 Influenza Vaccine 05/11/2025 Medical Devices Not on file Insurance AETNA MEDICARE Care Teams Clasp Machine Operator Relationship Specialty Start Date End Date oSila Joseph MD [address] [place] [address] PCP - General Family Medicine 11/18/20
--- OUTSIDE RECORDS SUMMARY | 2025-06-22 09:02 | XMS_ITS | Encounter Summary ---
Author Organization [facility] Address [id number] [address] [place] [address] Care Team Providers Care Garnett Machine Operator Name Role Phone Soila Joseph MD Primary Care Provider [phone] Reason for Visit * Reason Comments Med Refill Encounter Details Date Type Department Care Team (Late st Contact Info) Description 02/21/2018 Refill [facility] [address] [place] [address] Jerrod Juan PA [address] [facility], [address] [place] [address] Social History Tobacco Use Types Packs/Day Years [...] on filedocumented in this encounter Care Teams Garnett Machine Operator Relationship Specialty Start Date End Date Soila Joseph MD [address] [place] [address] PCP - General Family Medicine 11/18/20 documented as of this encounter
--- OUTSIDE RECORDS SUMMARY | 2025-06-22 09:02 | XMS_ITS | Encounter Summary ---
Author Organization [employer] [facility] tem Address [id number] [address] [place] [address] Care Team Providers Care Lens Hardener Name Role Phone Soila Joseph MD Primary Care Provider [phone] Encounter Details Date Type Department Care Team (Late st Contact Info) Description 11/02/2020 Orders Only [facility] [address] [place] [address] External, Scanning Provider Social History Tobacco Use [...] on filedocumented in this encounter Care Teams Lens Hardener Relationship Specialty Start Date End Date Soila Joseph MD [address] [place] [address] PCP - General Family Medicine 11/18/20 documented as of this encounter
--- OUTSIDE RECORDS SUMMARY | 2025-06-22 09:02 | XMS_ITS | Encounter Summary ---
Author Organization [employer] Address [id number] [address] [place] [address] Care Team Providers Care Youth Worker Name Role Phone Soila Joseph MD Primary Care Provider [phone] Encounter Details Date Type Department Care Team (Late st Contact Info) Description 11/22/2020 Orders Only [facility] [address] [place] [address] External, Scanning Provider Social History Tobacco Use [...] on filedocumented in this encounter Care Teams Youth Worker Relationship Specialty Start Date End Date Soila Joseph MD [address] [place] [address] PCP - General Family Medicine 11/18/20 documented as of this encounter
--- OUTSIDE RECORDS SUMMARY | 2025-06-22 09:02 | XMS_ITS | Encounter Summary ---
Author Organization [facility] Address [facility][id number] [address] [place] [address] Care Team Providers Care Mat Sewer Name Role Phone Soila Joseph MD Primary Care Provider Encounter Details Date Type Department Care Team (Late st Contact Info) Description 10/28/2020 Orders Only [facility] [address] [place] [phone] External, Scanning Provider Social History Tobacco Use [...] on filedocumented in this encounter Care Teams Mat Sewer Relationship Specialty Start Date End Date Soila Joseph MD [address] [place] [address] PCP - General Family Medicine 11/18/20 documented as of this encounter
--- OUTSIDE RECORDS SUMMARY | 2025-06-22 09:02 | XMS_ITS | Encounter Summary ---
Author Organization [facility] Address [address] [place] [address] Care Team Providers Care E Commerce Specialist Name Role Phone Soila Joseph MD Primary Care Provider Reason for Visit * Reason Comments Medication Refill Encounter Details Date Type Department Care Team (Late st Contact Info) Description 05/30/2025 Refill [facility] [address] [place] [address] Tayler Augustin, UTILITY WORKER DRIVER-WARDROBE COORDINATOR [address] [place] [address] Social History Tobacco Use Types Packs/Day Years Used Date Smoking Tobacco: Never Smokeless Tobacco: Never Alcohol Use Standard Drinks/Week Comments Not Currently 0 (1 standard drink = 0.6 oz pur e alcohol) Comments Unknown Sex and Gender Information Value Date Recorded Sex Assigned at Not on file Legal Sex Female 4:37 PM EST Gender Identity Not on file Sexual Orientation Not on file documented as of this encounter Functional Status * Are you deaf or do you have serious difficulty hearing? Answer Date of Assessment Author No 01/29/2023 11:00 AM Dorothy Altamirano RN * Are you blind or do you have serious difficulty seeing, even when wearing glasses? Answer Date of Assessment Author No 01/29/2023 11:00 AM Dorothy Altamirano RN * Do you have serious difficulty walking or climbing stairs (5 years or older)? Answer Date of Assessment Author Yes 01/29/2023 11:00 AM Dorothy Altamirano RN * Do you have difficulty dressing or bathing (5 yrs or older)? Answer Date of Assessment Author No 01/29/2023 11:00 AM EDT Dorothy Thomas RN * Because of a physical, mental, or emotional condition, do you have difficulty doing errands alone such as visiting a doctor's office or shopping (5 yrs or older)? Answer Date of Assessment Author No 01/29/2023 11:00 AM Dorothy Altamirano RN documented as of this encounter Mental Status * Because of a physical, mental, or emotional condition, do you have serious difficulty concentrating, remembering, or making decisions (5 yrs or older)? Answer Entry Date Author No 01/29/2023 11:00 AM Dorothy Altamirano RN documented in this encounter Plan of Treatment Not on file documented as of this encounter Visit Diagnoses Not on filedocumented in this encounter Care Teams E Commerce Specialist Relationship Specialty Start Date End Date Soila Joseph MD PCP - General Family Medicine 10/20/22 documented as of this encounter
--- OUTSIDE RECORDS SUMMARY | 2025-06-22 09:02 | XMS_ITS | Encounter Summary ---
Author Organization [employer] tem Address [facility][id number] [address] [place] [address] Care Team Providers Care Auto Mechanics Instructor Name Role Phone Soila Joseph MD Primary Care Provider [phone] Encounter Details Date Type Department Care Team (Late st Contact Info) Description 10/28/2020 Orders Only [facility] [address] [place] [phone] External, Scanning Provider Social History Tobacco Use [...] Multiple labs (10/19/2020) us Scanning Provider External DE IMAGING Final Result Performing Organization Address City/[facility] Co de Phone Number MANUALLY TRANSCRIBED RESULTS documented in this encounter Visit Diagnoses Not on filedocumented in this encounter Care Teams Auto Mechanics Instructor Relationship Specialty Start Date End Date Soila Joseph MD [address] [place] [address] PCP - General Family Medicine 11/18/20 documented as of this encounter
--- OUTSIDE RECORDS SUMMARY | 2025-06-22 09:02 | XMS_ITS | Encounter Summary ---
Author Organization [facility] tem Address [facility][id number] [address] [place] [address] Care Team Providers Care Web Site Project Manager Name Role Phone Soila Joseph MD Primary Care Provider [phone] Encounter Details Date Type Department Care Team (Late st Contact Info) Description 12/09/2020 Orders Only [facility] [address] [place] [address] Vicki Harrell MA BOYD (dyspnea on exertion) [...] abnormality documented in this encounter Care Teams Web Site Project Manager Relationship Specialty Start Date End Date Soila Joseph MD [address] [place] [address] PCP - General Family Medicine 11/18/20 documented as of this encounter
--- OUTSIDE RECORDS SUMMARY | 2025-06-22 09:02 | XMS_ITS | Encounter Summary ---
Author Organization [employer] tem Address [facility]-[id number] [address] [place] [address] Care Team Providers Care Ships Or Barges Loader Name Role Phone Soila Joseph MD Primary Care Provider [phone] Encounter Details Date Type Department Care Team (Late st Contact Info) Description 12/09/2020 Orders Only [facility] [address] [place] [address] External, Scanning Provider Social History Tobacco Use [...] on filedocumented in this encounter Care Teams Ships Or Barges Loader Relationship Specialty Start Date End Date Soila Joseph MD [address] [place] [address] PCP - General Family Medicine 11/18/20 documented as of this encounter
--- OUTSIDE RECORDS SUMMARY | 2025-06-22 09:02 | XMS_ITS | Encounter Summary ---
Author Organization [facility] tem Address [id number] [address] [place] [address] Care Team Providers Care Battery Inspector Name Role Phone Soila Joseph MD Primary Care Provider [phone] Reason for Visit * Reason Comments Med Refill Encounter Details Date Type Department Care Team (Late st Contact Info) Description 02/21/2018 Refill [facility] [address] [place] [id number] Jerrod Juan PA [address] [facility] [place] [address] Social History Tobacco Use Types Packs/Day Years [...] on filedocumented in this encounter Care Teams Battery Inspector Relationship Specialty Start Date End Date Soila Joseph MD [address] [place] [address] PCP - General Family Medicine 11/18/20 documented as of this encounter
--- OUTSIDE RECORDS SUMMARY | 2025-06-22 09:02 | XMS_ITS | Encounter Summary ---
Author Organization [facility] tem Address [id number] [address] [place] [address] Care Team Providers Care Cruller Maker Name Role Phone Soila Joseph MD Primary Care Provider [phone] Reason for Visit * Reason Comments Med Refill Encounter Details Date Type Department Care Team (Late st Contact Info) Description 09/07/2017 Refill [facility] [address] [place] [phone] Jerrod Juan PA [address] [facility] [place] [address] Social History Tobacco Use Types Packs/Day Years [...] on filedocumented in this encounter Care Teams Cruller Maker Relationship Specialty Start Date End Date Soila Joseph MD [address] [place] [address] PCP - General Family Medicine 11/18/20 documented as of this encounter
--- OUTSIDE RECORDS SUMMARY | 2025-06-22 09:04 | XMS_ITS | CCD ---
Author Organization [facility]iniSyn[facility] Care Team Providers Care Methods Analyst Name Role Phone Netta Montoya Unavailable Siva [...] MONTOYA, DR NETTA Conti Primary Care Unavailable LEONA [...] Attending Unavailable SAGAR KRAUSE Referring Unavailable NETTA MNOTOYA Primary Care Unavailable SAGAR KRAUSE Attending Unavailable SAGAR KRAUSE Referring Unavailable SELF, SELF Referring Unavailable BRANDEE, RADHA Attending Unavailable NETTA MONTOYA Primary Care Unavailable BRANDEE, RADHA Referring Unavailable NETTA MONTOYA Primary Care Unavailable BRANDEE, RADHA Attending Unavailable NETTA MONTOYA Primary Care Unavailable SELF, SELF Referring Unavailable SAGAR KRAUSE Attending Unavailable BRANDEE, RADHA Referring Unavailable MONTOYANETTA Primary Care Unavailable BRANDEE, RADHA Referring Unavailable NETTA MONTOYA Primary Care Unavailable BRANDEE, RADHA Referring Unavailable NETTA MONTOYA Primary Care Unavailable BRANDEE, RADHA Referring Unavailable NETTA MONTOYA Primary Care Unavailable LAKSHMIPATHY, NARENDRANATH Referring Unava ilable NETTA MONTOYA Primary Care Unavailable LAKSHMIPATHY, NARENDRANATH Referring Unava ilable NETTA MONTOYA Primary Care Unavailable Netta Montoya MD Primary Care Provider Miguel A JOHN, Jb Giles Attending Provider Netta Montoya MD Primary Care Provider Miguel A JOHN, Jb Giles Attending Provider Jb Grady Admitting Unavailable Jb Grady Attending Unavailable Netta Montoya Primary Care Unavailable Jb Grady Admitting Unavailable Jb Grady Attending Unavailable Netta Montoya Primary Care Unavailable Jb Grady Attending Unavailable Netta Montoya Primary Care Unavailable Jb Grady Admitting Unavailable Netta Montoya MD Primary Care Provider Miguel A JOHN, Jb Giles Attending Provider HANY MCCORD Referring Unavailable Silke LEVIN, Chandra Nova Attending Unavailable Netta Montoya MD Primary Care Unava illaura Edouard MD, Chandra Nova Attending Unavailable Netta Montoya MD Primary Care Unava ilable Silke LEVIN, Andtasha Nova Attending Unavailable Netta Montoya MD Primary Care Unava ilable Silke LEVIN, Chinmayrius Nova Attending Unavailable Netta Montoya MD Primary Care Unava ilable Silke LEVIN, Chandra Nova Attending Unavailable Netta Montoya MD Primary Care Unava ilable Andrew Berg Primary Care Provider [phone] Kennroya Daniel Oropeza Unavailable Netta Montoya MD Primary Care Provider Netta Montoya MD Attending Provider Jb Grady APRN Attending Provider Twan Diaz MD Unavailable Robbi Escudero MD Unavailable NONE, NONE Unavailable Unavailable Wanda Fonseca MD Attending Provider Suzanne Madrigal DO Attending Provider [phone] Allergies Allergy Classification Reported Allergen(s) Allergy Type Date of Onset Reaction(s) Facility (20 sources) milnacipran; Translations: [Savella] Drug Allergy 09-02-20 13 SEVERE HEADACHES [facility] (20 sources) Morphine; Translations: [MORPHINE] Drug Allergy 11-19-19 21 Unknown, [facility] Rep[facility] (20 sources) tiZANidine; Translations: [Zanaflex] Drug Allergy 09-02-20 13 hallucinations [facility] (20 sources) milnacipran; Translations: [MILNACIPRAN] Drug Allergy 02-10-20 17 Headache [facility] (20 sources) tiZANidine; Translations: [TIZANIDINE] Drug Allergy 02-10-20 17 Hallucination [facility] (2 sources) Morphine Drug Allergy [facility] (20 sources) Vancomycin Drug Allergy 01-30-20 23 [facility] (7 sources) Allergies Reconciled Propensity to adverse reactions Unknown [facility] [facility] Other (7 sources) Savella *PSYCHOTHERAPEU TIC AND NEUROLOGICAL AGENTS Propensity to adverse reactions Unknown [facility] [employer] [facility] Other (9 sources) Savella *PSYCHOTHERAPEU TIC AND Allergy to substance 10-24-19 24 [facility] Comment on above: Free Text Allergy: S avella *PSYCHOTHERAPEUTIC AND NEUROLOGICAL AGENTS (1 source) ALLERGIES NOT ON FILE; Translations: [ALLERGIES NOT ON FILE] Propensity to adverse reactions (disorder) [facility] Repository (1 source) tiZANidine Drug Allergy 10-11-19 16 Other: See Comments [facility] (1 source) SARELLA Food allergy (disorder) 04-07-20 25 hallucinations [facility] Medications Current Medications Medication Drug Class(es) Dates [...] (1 source) ALOE CAPE MISC Active amylase 446510 unt / lipase 09361 unt / protease 214898 unt delayed release oral capsule (19 sources) Start: 01-16-2024 take 2 capsules by mouth three times daily at mealtime, then take 1 capsule by mouth four times daily Start: 01-25-2023 take 2 capsules by m out three times daily at mealtime, then take 1 capsule by mouth four times daily Creon [id number] UNIT 2 capsules three times a day with meals and 1 capsule with a snack Orally four times a day for 30 days PLEASE CHECK ALLERGIES January, Active take 1 capsule by [facility] once daily Creon 36,000 unit-114,000 unit-180,000 unit capsule,delayed release 1 capsule by mouth once a day active Laura Rodríguez AT [facility] ascorbic acid 1000 mg oral tablet (16 sources) Vitamin C Start: 10-24-2023 take 1 tablet by william th twice daily take 1 tablet by mouth once alannah [...] EXTRACT (UVA URSI LEAF FLUID EXTRACT MISC) (1 source) BEARBERRY LEAF E XTRACT (UVA URSI LEAF FLUID EXTRACT MISC) Active biotin 10 mg oral tablet (2 sources) Biotin 23195 MCG tablet Take by mouth. 0 Active Calcium (15 sources) Phosphate Binder, Calcium Calcium + D Active CALCIUM 600/VITAMIN D (CALCIUM CARB-CHOLECALCIFEROL) 600-10 MG-MCG CHEW (1 source) take 1 tablet by mouth once daily Calcium 600 with Vitamin D3 600 mg-10 mcg (400 unit) chewable tablet 1 tablet by mouth once a day as directed active Laura Rodríguez AT [facility] Calcium Carb-Cholecalciferol (CALCIUM + D3 PO) (7 sources) Calcium Carb-Cholecalciferol (CALCIUM + D3 PO) Take by mouth daily. Active Calcium Carb-Cho lecalciferol (CALCIUM + D3 PO) Take by mouth daily. 0 Active celecoxib 200 mg oral capsule (20 sources) Nonsteroidal Anti-inflammatory Drug Start: 11-10-2024 End: 12-22-2024 Start: 11-10-2024 End: 12-22-2024 Celecoxib 200 mg [...] day Active cholecalciferol 0.025 mg oral capsule (20 sources) Vitamin D Start: 10-24-19 24 Cholecalciferol, Vitamin D3, 10,000 unit cap Take by mouth. Active Cholecalciferol 250 MCG (76527 UT) capsule capsule Take by mouth daily. Active Cholecalciferol 250 MCG (11572 UT) capsule capsule Take by mouth. 0 [...] oral capsule (20 sources) Anticholinergic Start: 12-26-2024 End: 12-29-2024 take 1 capsule by mouth three times daily Start: 08-29-2024 End: 09-30-2024 Dicyclomine 10 mg [...] 17, 2024 3:33pm take 1 capsule by [facility] every eight hours Dicyclomine HCl 10 MG 1 capsules Orally Three times a day Active take 1 tablet by [facility] every six hours Dicyclomine 20 MG tablet Take 1 tablet by mouth every 6 hours. 0 Active docusate sodium 100 mg oral capsule (20 sources) Start: 04-21-2024 End: 04-21-2024 take 1 capsule by mouth once daily Start: 01-29-2023 take 1 capsule by [facility] twice daily Docusate 100 MG capsule Take 1 capsule by mouth 2 times daily. 60 capsule 01/29/2023 Active take 1 capsule by [facility] twice daily Docusate (Stool Softener) 100 MG capsule Take 1 capsule by mouth 2 times daily. 0 Active estrogens, conjugated ([facility]) 0.625 mg/ml vaginal cream (5 sources) Estrogen [...] Use as Directed December 12, 2023 11:00pm 3 ml insulin aspart, human 100 unt/ml pen injector (8 sources) Insulin Analog Start: 12-13-2023 End: 11-05-2024 3 ml insulin lispro 100 unt/ml pen injector (1 source) Insulin Analog Humalog KwikPen (U-100) Insulin 100 unit/mL subcutaneous active Chetkalee Banks [address] Iodine (6 sources) IODINE ORAL Take by [...] affected eye Ophthalmic Twice a day Active lubiprostone 0.024 mg oral capsule (8 sources) Chloride Channel Activator Start: 01-28-2025 take 1 capsule by mouth twice daily Start: 12-29-2024 End: 01-28-2025 take 1 capsule by mouth once daily Lubiprostone (Amitiza) 8 mcg capsule Discontinued 8 MCG PO Daily December 29, 2024 12:00am January 28, 2025 9:33am Lutein (15 sources) Lutein Active LUTEIN PO Take 2 5 mg by mouth. 0 Active magnesium oxide 500 mg oral capsule (9 sources) Magnesium 500 MG capsule Take by mouth daily. Active melatonin 5 mg oral capsule (9 sources) Melatonin 5 MG capsule Take by mouth at bedtime. Active methocarbamol 500 mg oral tablet (20 sources) Muscle Relaxant Start: 09-30-2024 take 2 tablets by mouth once daily at bedtime Start: 08-29-2024 End: 09-30-2024 take 1 tablet [...] (5 sources) Multivitamin Act ag Multivitamin tablet (9 sources) Start: 07-29-2024 take 1 tablet by mouth once daily Start: 07-29-2024 take 1 tablet by william th once daily Multivitamin tablet Active 1 TAB PO Daily July 29, 2024 1:00am Complies with drug therapy Start: 07-29-2024 take 1 tablet by william [...] by Nasal route once for 1 dose. [place] into the nose as directed. Call 911. If no response in 2 minutes use a new nasal spray in other nostril. Repeat until help arrives. 1 Each 01/29/2023 Active [place] 3 (5 sources) [place] 3 Active omeprazole 40 mg delayed release oral capsule (20 sources) Proton Pump Inhibitor Start: 2024 End: 2024 take 1 capsule by mouth once daily Start: 10-24-2023 End: 09-30-2024 take 1 capsule by mouth once daily Omeprazole 20 mg capsule,delayed release(DR/EC) Discontinued 20 MG PO Daily April 21, 2024 12:00am September 30, 2024 2:57pm Omeprazole [address] tablet Take by mouth daily. Active take 1 capsule by [facility] once daily Omeprazole 10 MG 1 capsule 30 minutes before morning meal Orally Once a day Active OneTouch Ultra 2 w/Device (18 sources) OneTouch Ultra 2 w/Device as directed Active oxybutynin chloride 5 mg oral tablet (20 sources) Cholinergic Muscarinic Antagonist Start: 04-21-2024 take 1 tablet by mouth once daily Start: 02-29-2024 End: 04-21-2024 take 1 tablet by mouth once daily Oxybutynin Chloride 5 mg tablet extended release 24hr Discontinued 5 MG PO Daily February 29, 2024 12:21pm April 21, 2024 11:00am take 1 tablet by [facility] three times daily as needed Oxybutynin Chloride [...] 2 MG/1.5ML as directed Subcutaneous Active Pancrelipase, [id number], (CREON PO) (7 sources) take 1 tablet by mouth once daily Pancrelipase, Sny-Kfjy-Fiyx, (CREON PO) Take 36,000 Units by mouth. 2 tablet by mouth with each meal, 1 tablet by mouth with 1 snack daily Active take 1 tablet by mouth once alannah y Pancrelipase, Jjq-Spci-Jpqd, (CREON PO) Take 36,000 Units by mouth. [...] Apply to eye as needed. 0 Active RA VITAMIN C/KIRILL HIPS (ASCORBIC ACID) 1000 MG TABS (1 source) take 1 tablet by mouth once daily Vitamin C 1,000 mg tablet 1 tablet by mouth once a day as directed active Laura Rodríguez AT [facility] Robaxin-750 (5 sources) Robaxin-750 Acti ve Saccharomyces Boulardii (4 sources) Start: 04-21-2024 take 10 capsules by mouth once daily Start: 04-21-2024 take 10 capsules by mouth once daily Saccharomyces Boulardii (Resistance Formula Probiotic) 10 billion cell capsule Active 47674 MMU CELLS PO Daily April 21, 2024 12:00am Complies with drug therapy Saccharomyces Boulardii (Resistance Formula Probiotic) 10 billion cell capsule (5 sources) Start: 04-21-2024 take 10 capsules by mouth once daily Saccharomyces Boulardii (Resistance Formula Probiotic) 10 billion cell capsule Active 20419 MMU CELLS PO Daily April 21, 2024 12:00am Start: 04-21-2024 take 10 capsules by mouth once daily Saccharomyces Boulardii (Resistance Formula Probiotic) 10 billion cell capsule Active 23156 MMU CELLS PO Daily April 20, 2024 11:00pm Selenium (5 sources) Selenium Active SITagliptin 100 mg oral tablet (14 sources) Dipeptidyl Peptidase 4 Inhibitor Start: 09-30-2024 take 1 tablet by mouth once daily Start: 04-03-2023 take 1 tablet by william [...] Softener (15 sources) Stool Softener A ctive SUPER B-50 B COMPLEX (B [id number]) CAPS (1 source) take 1 capsule by mo uth once daily Super B-50 Complex 400 mcg-20 mg-50 mg capsule 1 capsule by mouth once a day as directed active Laura Rodríguez AT [facility] thyroid ([facility] 65 mg oral tablet (6 sources) take 2 tablets by mo uth once daily Thyroid, Pork, 65 mg tab Take 130 mg by mouth once daily. Active Nature-Throid Ac tive Tumeric (9 sources) Start: 04-21-2024 Start: 04-21-2024 Tumeric Active PO April 21, 2024 12:00am Complies with drug therapy Start: 04-21-2024 Tumeric Active PO April 21, 2024 12:00am Start: 04-21-2024 Tumeric Active PO April 20, 2024 11:00pm tumeric 1000mg tablet (1 source) take 1 tablet by mouth once daily tumeric 1000mg tablet 1 tablet by mouth once a day active Chet Banks [address] turmeric extract 500 mg oral capsule (2 [...] IN SUMMER Orally Once a day Active zinc acetate 50 mg oral capsule (1 source) take 1 capsule by mouth once daily zinc acetate 50 mg (zinc) capsule 1 capsule by mouth once a day as directed active Laura Rodríguez AT [facility] zolpidem tartrate 10 mg oral tablet (3 sources) gamma-Aminobutyri c Acid-ergic Agonist Start: 10-02-2022 Zolpidem Tartrate 10 MG TAKE 1 TABLET AT BEDTIME for 90 Sep, Active zonisamide 50 mg oral capsule (10 sources) Anti-epileptic Agent Start: 09-30-2024 take 1 capsule by mouth twice daily take 1 capsule by mouth once jomar ly zonisamide 50 mg capsule 1 capsule by mouth once a day active Laura Rodríguez AT [facility] Completed/Discontinued Medications Medication Drug Class(es) Dates Sig (Normalized) Sig (Original) amoxicillin 875 mg / clavulanate 125 mg oral tablet (16 sources) Penicillin-class Antibacterial Start: 12-10-2024 End: 12-26-2024 [...] 2024 11:23am azithromycin 250 mg oral tablet (9 sources) Macrolide Antimicrobial Start: 12-13-2023 End: 01-16-2024 Azithromycin 250 mg tablet Discontinued 0 PO .COMPLEX December 13, 2023 12:00am January 16, 2024 10:46am For 250 mg dose pack: take 500 mg today (day 1), then 250 mg for 4 days (days 2-5) PO baclofen 10 mg oral tablet (20 sources) gamma-Aminobutyric Acid-ergic Agonist Start: 07-17-2024 End: [...] day Active benzonatate 200 mg oral capsule (9 sources) Non-narcotic Antitussive Start: 01-29-2024 End: 02-18-2024 take 1 capsule by mouth three times daily as needed for cough Benzonatate 200 mg capsule Discontinued 200 MG PO Three times daily as needed for cough 30 January 29, 2024 12:00am February 18, 2024 10:32am cyclobenzaprine hydrochloride 5 mg oral tablet (11 sources) Muscle Relaxant Start: 08-13-2023 End: 01-16-2024 take 1 tablet by mouth once daily at bedtime Cyclobenzaprine 5 mg tablet Discontinued 1 TAB PO Daily at bedtime October 24, 2023 1:00am January 16, 2024 10:46am FreeTextSi tablet at bedtime as needed Orally Once a day; Note: Source Status: Start; Provider: Lindsay Conti dextromethorphan hydrobromide 3 mg/ml / promethazine hydrochloride 1.25 mg/ml oral solution (9 sources) Phenothiazine, Uncompetitive A-vhgwpz-R-aspartat e Receptor Antagonist, Sigma-1 Agonist Start: 01-23-2024 [...] Not-Taking doxycycline monohydrate 100 mg oral tablet (9 sources) Tetracycline-class Drug Start: 01-23-2024 End: 01-29-2024 [...] oral tablet (20 sources) Start: 10-24-2023 End: 04-21-2025 take 1 tablet by mouth once daily at bedtime Eszopiclone (Lunesta) 3 mg tablet Discontinued 3 MG PO Daily at bedtime 90 October 21, 2024 10:41am February 25, 2025 9:26am take 1 tablet by mouth once alannah y eszopiclone 2 MG tablet Take 1 tablet by mouth daily. 0 Active fluconazole 150 mg oral tablet (9 sources) Azole Antifungal Start: 02-11-2024 End: 04-21-2024 Fluconazole 150 mg tablet Discontinued 150 MG PO Q3D 2 0 February 11, 2024 12:00am April 21, 2024 10:45am Take 1st dose at onset of symptoms then repeat in 3 days if continued symptoms fluticasone propionate 0.05 mg/actuat metered dose nasal spray (18 sources) Corticosteroid Start: 02-18-2024 End: 07-17-2024 take 1 spray(s) nasal route once daily Fluticasone Propionate (Flonase Allergy Relief) 50 mcg/actuation spray,suspension Discontinued 1 SPRAY INTRANASAL Daily February 18, 2024 12:00am July 17, 2024 3:33pm administer into each nostril Start: 02-11-2024 End: 02-18-2024 take 1 spray(s) nasal route twice daily Fluticasone Propionate (Flonase Allergy Relief) 50 mcg/actuation spray,suspension Discontinued 1 SPRAY INTRANASAL Twice daily 16 February 11, 2024 12:00am February 18, 2024 [...] Provider: Lindsay Conti take 1 tablet by [facility] every twenty-four hours Levothyroxine Sodium 112 MCG [...] day Active linaclotide 0.072 mg oral capsule (20 sources) Guanylate Cyclase-C Agonist Start: 09-30-2024 End: [...] day Active loratadine 10 mg oral tablet (9 sources) Start: 02-18-2024 End: 02-18-2024 take 1 [...] 10:37am Start: 01-18-2023 take 4 tablets by [facility] every twenty-four hours Mesalamine 1.2 GM 4 tablets Orally Once a day for 30 days January, Active Start: 01-18-2023 take 4 tablets by [facility] every twenty-four hours Mesalamine 1.2 GM 4 [...] Lindsay Conti methylPREDNISolone 4 mg oral tablet (19 sources) Corticosteroid Start: 08-29-2024 End: 09-30-2024 Methylprednisolone 4 mg tablets,dose pack Discontinued 4 MG PO August 29, 2024 1:00am September 30, 2024 2:56pm Start: 01-23-2024 End: 02-11-2024 take 1 tablet [...] 4 MG PO August 29, 2024 12:00am Charline 21st, 2025 1:56pm montelukast 10 mg oral tablet (20 sources) Leukotriene Receptor Antagonist Start: 03-17-2024 End: [...] a day for 30 day(s) Not-Taking Semaglutide (9 sources) Start: 12-13-19 End: 12-11-19 Semaglutide (Ozempic) [...] 4 weeks simethicone 125 mg oral capsule (9 sources) Start: 04-21-2024 End: 09-30-2024 take 1 [...] 1 mL ubiquinol 100 mg oral capsule (9 sources) Start: 07-29-2024 End: 12-26-2024 take 1 [...] Chronic Chronic obstructive pulmonary disease and bronchiectasis (9 sources) Bronchitis; Translations: [Bronchitis, not specified as acute or chronic] 01-23-2024 Episodic Complication of device; implant or graft (20 sources) Broken internal joint prosthesis, unspecified site, subsequent encounter; Translations: [Joint pain] Onset: 5 Episodic Complications of surgical procedures or medical care (15 sources) Complication of ventilation therapy 05-07-2024 Episodic [...] initial encounter] Onset: 2 Episodic Esophageal disorders (18 sources) Gastroesophageal reflux disease; Translations: [Gastro-esophageal reflux disease without esophagitis] 08-29-2024 Chronic Gastroduodenal ulcer (except hemorrhage) (18 sources) Peptic ulcer; Translations: [Peptic ulcer, site unspecified, unspecified as acute or chronic, without hemorrhage or perforation] Chronic Headache; including migraine (15 sources) Migraine with aura; Translations: [Migraine with [...] Episodic Inflammatory diseases of female pelvic organs (9 sources) Vaginitis; Translations: [Acute vaginitis] 02-12-2024 Episodic [...] [Meningitis, unspecified] Episodic Miscellaneous mental health disorders (17 sources) Chronic insomnia; Translations: [Psychophysiologic insomnia] 05-07-2024 Chronic Mood disorders (20 sources) Dysthymia; Translations: [Dysthymic disorder] Onset: 8 05-07-2024 Chronic Mycoses (20 sources) Candidiasis; Translations: [Candidiasis, unspecified] Onset: 3 Episodic Nausea and vomiting (15 sources) Nausea; Translations: [Nausea] Onset: 4 08-29-2024 Episodic Nutritional deficiencies (20 sources) Vitamin D deficiency; Translations: [Vitamin D deficiency, unspecified] Chronic Nutritional deficiencies (15 sources) Cobalamin deficiency; Translations: [Deficiency of other specified B group vitamins] 07-17-2024 Episodic Osteoarthritis (20 sources) Osteoarthritis; Translations: [Unspecified osteoarthritis, unspecified site] Onset: 2 Chronic Other acquired deformities (7 sources) 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; Translations: [Contracture, right ankle] Chronic Other aftercare (1 source) Other district adviser (current) drug therapy; Translations: [OTH SKILLED NURSING CURRENT DRUG THERAPY] Onset: 3 Episodic Other connective tissue disease (3 sources) History of left total knee replacement; Translations: [Presence of left artificial knee joint] 02-20-2023 Chronic Other connective tissue disease (3 sources) Presence of left artificial knee joint; Translations: [Presence of left artificial knee joint] Onset: 4 Chronic Other connective tissue disease (1 source) History of total knee arthroplasty; Translations: [Presence of left artificial knee joint] Onset: 5 04-07-2025 Chronic Other connective tissue disease (20 sources) [...] left foot] Episodic Other connective tissue disease (9 sources) Pain in left lower limb; Translations: [Pain in left leg] 05-06-2025 Episodic Other connective tissue disease (7 sources) [...] and ureter] Onset: Chronic Other gastrointestinal disorders (12 sources) Irritable bowel syndrome; Translations: [Mixed irritable bowel syndrome] 08-29-2024 Chronic Other gastrointestinal disorders (8 sources) Mixed irritable bowel syndrome; Translations: [Irritable bowel syndrome] Onset: 5 08-29-2024 Chronic Other gastrointestinal disorders (20 sources) Diarrhea; Translations: [Diarrhea, unspecified] Episodic Other gastrointestinal disorders (5 sources) Diarrhea, unspecified; Translations: [DIARRHEA UNSPECIFIED] Onset: 2 Episodic Other gastrointestinal disorders (9 sources) Constipation alternates with diarrhea; Translations: [Other specified symptoms and signs involving the digestive system and abdomen] 01-16-2024 Episodic Other gastrointestinal disorders (12 sources) History of pancreatitis; Translations: [Personal history of other diseases of the digestive system] 08-29-2024 Episodic Other gastrointestinal disorders (18 sources) Abdominal bloating; Translations: [Abdominal distension (gaseous)] 04-21-2024 Episodic Other gastrointestinal disorders (2 sources) Personal history of other diseases of the digestive system; Translations: [Personal history of other diseases of digestive system] 08-29-2024 Episodic Other gastrointestinal disorders (3 sources) Fecal urgency; Translations: [Fecal urgency] Onset: 5 12-26-2024 Episodic Other gastrointestinal disorders (2 sources) Full incontinence of feces; Translations: [Full incontinence of feces] Onset: 12-26-2024 Episodic Other gastrointestinal disorders (6 sources) Disorder of gastrointestinal tract; Translations: [Other specified diseases of the digestive system] 12-26-2024 Episodic Other gastrointestinal disorders (6 sources) Incontinence of feces; Translations: [Full incontinence of feces] 12-26-2024 Episodic Other gastrointestinal disorders (9 sources) Urgent desire for stool; Translations: [Fecal urgency] 12-26-2024 Episodic Other gastrointestinal disorders (2 sources) Other specified diseases of the digestive system; Translations: [Other specified disorders of intestine] 12-26-2024 Episodic Other hereditary and degenerative nervous system conditions (12 sources) Restless legs; Translations: [Restless legs syndrome] [...] Episodic Other nervous system disorders (2 sources) Numbness and tingling sensation of skin; Translations: [Anesthesia of skin] 05-06-2025 Episodic Other non-traumatic joint disorders (18 sources) [...] Chronic Other nutritional; endocrine; and metabolic disorders (9 sources) Body mass index 30+ - obesity; Translations: [Body mass index (BMI) 34.0-34.9, adult] 05-07-2024 Chronic Other nutritional; endocrine; and metabolic disorders (9 sources) Hypocalcemia; Translations: [Hypocalcemia] 07-17-2024 Chronic Other upper respiratory disease (9 sources) Nasal congestion; Translations: [Nasal congestion] 02-11-2024 Episodic Other upper respiratory infections (18 sources) Chronic sinusitis; Translations: [Chronic sinusitis, unspecified] 05-15-2024 Chronic Other upper respiratory infections (20 sources) Acute maxillary sinusitis; Translations: [Acute recurrent maxillary sinusitis] Onset: 8 12-13-2023 Episodic Pancreatic disorders (not diabetes) (2 sources) Chronic pancreatitis; Translations: [Other chronic pancreatitis] Chronic Pancreatic disorders (not diabetes) (15 sources) Other specified diseases of pancreas; Translations: [...] Onset: 3 01-24-2023 Chronic Residual codes; unclassified (19 sources) Obstructive sleep apnea syndrome; Translations: [Obstructive sleep apnea] Onset: 8 02-18-2024 Chronic Residual codes; unclassified (10 sources) Daytime somnolence; Translations: [Other hypersomnia] 05-07-2024 [...] Translations: [Cervicalgia] Onset: 8 Episodic Substance-related disorders (17 sources) Hypnotic dependence; Translations: [Sedative, hypnotic or [...] Test Name Value Interpretation Reference Range Facility Relevant diagnostic tests/la boratory data Narrativeon 04-07-2025 Fall risk assessment yes [employer] Work Phone: MEDS REVIEW Documentation of current medications (procedure) [employer] Work Phone: MEDS REVIEWD Medications reviewed with [employer] Work Phone: XRAY HX of the left knee on 04/07/2025 at [facility] Work Phone: Fall risk assessment no [employer] Work Phone: MEDS REVIEW Documentation of current medications (procedure) [employer] Work Phone: MEDS REVIEWD Medications reviewed with [employer] Work Phone: Estimated glomerular filtrat ion rate (GFR) non- AmericanOrdered By: Netta Montoya on 03-19-2025 GFR/1.73 sq M.predicted among non-blacks MDRD (S/P/Bld) [Vol rate/Area] mL/min/{1.73_m2} >=60 mL/min/1.73m [address] [facility] Glucose mean value [Mass/vol ume] in Blood Estimated from glycated hemoglobinOrdered By: Netta Montoya on 03-19-2025 Average glucose Estimated from glycated hemoglobin (Bld) [Mass/Vol] 131 mg/dL [facility] Hemoglobin A1c percentageOrd ered By: Netta Montoya on 03-19-2025 HbA1c (Bld) [Mass fraction] 6.2 % 4.5-6.[address] [facility] Comment on above: ADA RECOMMENDED LIMI T 4.0 - 6.0ADA THERAPEUTIC TARGET < 7.0ACTION SUGGESTED> 7.0 Laboratory - Chemistry and C hemistry - challengeOrdered By: Netta Montoya on 03-19-2025 Calcium [Mass/Vol] 9.7 mg/dL 8.5-10.1 [facility] Chloride [Moles/Vol] 103 mmol/L 98-107 [facility] CO2 [Moles/Vol] 27.3 mmol/L 21.0-32.0 [facility] Creatinine [Mass/Vol] 0.76 mg/dL 0.55-1.[address] [facility] GFR/1.73 sq M.predicted MDRD (S/P/Bld) [Vol rate/Area] mL/min/{1.73_m2} >=60 mL/min/1.73m [address] [facility] Glucose [Mass/Vol] 164 mg/dL High 74-106 [facility] Potassium [Moles/Vol] 4.1 mmol/L 3.5-5.[address] [facility] Sodium [Moles/Vol] 140 mmol/L 136-145 [facility] Urea nitrogen [Mass/Vol] 16.0 mg/dL 7.0-18.[address] [facility] Urea nitrogen/Creatinine [Mass ratio] 21.1 mg/mg [facility] Microalbumin [Mass/volume] i n UrineOrdered By: Netta Montoya on 03-19-2025 Albumin DL <= 20 mg/L (U) [Mass/Vol] mg/dL <=30.[address] [facility] No Panel InformationOrdered By: Netta Montoya on 03-19-2025 Urine Random Creatinine 63.02 mg/dL 20.00-300.[address] [facility] Serum or plasma anion gap de terminationOrdered By: Netta Montoya on 03-19-2025 Anion gap [Moles/Vol] 13.8 mmol/L [facility] 3602-03-2025 36 [facility] re ps notified. Normal [facility] 3601-29-2025 36 Patient called back, appt scheduled for 03/31/2025 at 1030. Normal [facility] X-ray reportOrdered By: David Sims on 12-26-2024 Study report [facility] Main [place] [id number] XRay Report Signed Patient: Emily Macias MR#: [id number] : 1960 Acct:[id number] Age/Sex: 64 / F ADM Date: 5 Loc: XD Room: Type: REG CLI Attending Dr: Jb Grady EXTRACTOR FILLER Copies to: Jb Grady APRN~ Ordering Provider: [...] Sims Jr., D.O.12/26/2024 1:42 PM Dictation Location: RADIO-PC-23 Transcribed By: FLYNN 12/26/24 1342 Dictated By: Bar Sims Jr, DO 12/26/24 1342 Signed By: 12/26/[address] [facility] XR KUBon 12-26-2024 XR KUB [facility] [place] [address] XRay Report Signed Patient: Emily Macias MR#: [id number] : 1960 Acct:[id number] Age/Sex: 64 / F ADM Date: 12/26/24 Loc: XD Room: Type: [facility] CLI Attending Dr: Jb Grady APRN Copies [...] IMPRESSION: EVIDENCE OF CONSTIPATION. Impression dictated by: Kp Carrera Jr..OMonalisa12/26/2024 1:42 PM Dictation Location: RADIO-PC-23 Transcribed By: FLYNN 12/26/24 1342 Dictated By: Bar Sims Jr, DO 12/26/24 1342 Signed By: 12/26/24 1342 Normal [facility] Basophils Auto (Bld) [#/Vol] on 11-10-2024 Basophils (Bld) [#/Vol] Automated basoph il count 0.0-0.[address] [facility] Basophils/100 WBC Auto (Bld) on 11-10-2024 Basophils/100 WBC (Bld) Automated basophil % 0. 2-2.[address] [facility] Eosinophils/100 WBC Auto (Bl d)on 11-10-2024 Eosinophils/100 WBC (Bld) Automated eosinophil % 0.9-7.[address] [facility] Erythrocyte distribution wid th Auto (RBC) [Ratio]on 11-10-2024 Erythrocyte distribution width (RBC) [Ratio] Erythrocyte distribution width [Ratio] by Automated count 11.0-15.[address] [facility] Estimated glomerular filtrat ion rate (GFR) non- Americanon 11-10-2024 GFR/1.73 sq M.predicted among non-blacks MDRD (S/P/Bld) [Vol rate/Area] Estimated glomerular filtration rate (GFR) non- >=60 mL/min/1.73m [address] [facility] Globulin Calc (S) [Mass/Vol] on 11-10-2024 Globulin (S) [Mass/Vol] Serum globulin measurement by calculation (mass/volume) [facility] Hematocrit Auto (Bld) [Volum e fraction]on 11-10-2024 Hematocrit (Bld) [Volume fraction] Hematocrit [Volume Fraction] of Blood by Automated count 36.0-48.[address] [facility] Hemoglobin [Mass/volume] in Bloodon 11-10-2024 Hemoglobin (Bld) [Mass/Vol] Hemoglobin [Mass/volume] in Blood 12.0-16.[address] [facility] Laboratory - Chemistry and C hemistry - challengeon 11-10-2024 Albumin [Mass/Vol] 3.7 g/dL 3.4-5.0 [facility] ALP [Catalytic activity/Vol] 81 U/L 46-[address] [facility] ALT [Catalytic activity/Vol] 23 U/L 14-[address] [facility] AST [Catalytic activity/Vol] 18 U/L 15-[address] [facility] Bilirubin [Mass/Vol] 0.3 mg/dL 0.2-1.0 [facility] Calcium [Mass/Vol] 9.6 mg/dL 8.5-10.1 [facility] Chloride [Moles/Vol] 105 mmol/L 98-107 [facility] CO2 [Moles/Vol] 30.0 mmol/L 21.0-32.0 [facility] Creatinine [Mass/Vol] 0.80 mg/dL 0.55-1.[address] [facility] GFR/1.73 sq M.predicted MDRD (S/P/Bld) [Vol rate/Area] mL/min/{1.73_m2} >=60 mL/min/1.73m [address] [facility] Glucose [Mass/Vol] 110 mg/dL High 74-106 [facility] Potassium [Moles/Vol] 4.9 mmol/L 3.5-5.[address] [facility] Protein [Mass/Vol] 7.1 g/dL 6.4-8.2 [facility] Sodium [Moles/Vol] 144 mmol/L 136-145 [facility] Urea nitrogen [Mass/Vol] 21.0 mg/dL High 7.0-18.[address] [facility] Urea nitrogen/Creatinine [Mass ratio] 26.3 mg/mg [facility] Laboratory - Hematology and Cell countson 11-10-2024 Immature granulocytes/100 WBC (Bld) 0.3 % 0.0-0.[address] [facility] Leukocytes [#/volume] correc penelope for nucleated erythrocytes in Blood by Automated counon 11-10-2024 WBC corrected for nucl RBC Auto (Bld) [#/Vol] Leukocytes [#/volume] corrected for nucleated erythrocytes in Blood by Automated coun 4.0-11.[address] [facility] Lymphocytes Auto (Bld) [#/Vo l]on 11-10-2024 Lymphocytes (Bld) [#/Vol] Lymphocytes [#/volume] in Blood by Automated count 1.2-3.[address] [facility] Lymphocytes/100 WBC Auto (Bl d)on 11-10-2024 Lymphocytes/100 WBC (Bld) Lymphocytes/100 leukocytes in Blood by Automated count 20.5-60.[address] [facility] MCH Auto (RBC) [Entitic mass ]on 11-10-2024 MCH (RBC) [Entitic mass] MCH [Entitic mass] by Automated count 26.7-34.[address] [facility] MCHC Auto (RBC) [Mass/Vol]on 11-10-2024 MCHC (RBC) [Mass/Vol] MCHC [Mass/volume] by Automated count 29.9-35.[address] [facility] MCV Auto (RBC) [Entitic vol] on 11-10-2024 MCV (RBC) [Entitic vol] MCV [Entitic vol ume] by Automated count 81.0-99.[address] [facility] Monocytes Auto (Bld) [#/Vol] on 11-10-2024 Monocytes (Bld) [#/Vol] Automated blood monocyte count 0.3-0.[address] [facility] Monocytes/100 WBC Auto (Bld) on 11-10-2024 Monocytes/100 WBC (Bld) Automated monocyte % 1. 7-12.[address] [facility] Neutrophils Auto (Bld) [#/Vo l]on 11-10-2024 Neutrophils (Bld) [#/Vol] Neutrophils [#/volume] in Blood by Automated count 1.4-6.[address] [facility] Neutrophils/100 WBC Auto (Bl d)on 11-10-2024 Neutrophils/100 WBC (Bld) Automated neutrophil % 43.0-75.[address] [facility] No Panel Informationon 11-10 Eosinophils # (Auto) 0.2 10 3/uL 0.0-0.[address] [facility] Immature Granulocyte # (Auto) 0.02 10 3/uL 0.00-0.[address] [facility] Platelet mean volume Auto (B ld) [Entitic vol]on 11-10-2024 Platelet mean volume (Bld) [Entitic vol] Platelet mean volume [Entitic volume] in Blood by Automated count 9.5-13.[address] [facility] Platelets Auto (Bld) [#/Vol] on 11-10-2024 Platelets (Bld) [#/Vol] Platelets [#/vol ume] in Blood by Automated count 150-[address] [facility] RBC Auto (Bld) [#/Vol]on RBC (Bld) [#/Vol] Erythrocytes [#/volume] in Blood by Automated count 4.20-5.[address] [facility] Serum or plasma albumin/glob ulin mass ratioon 11-10-2024 Albumin/Globulin [Mass ratio] Serum or plasma albumin/globulin mass ratio [facility] Serum or plasma anion gap de terminationon 11-10-2024 Anion gap [Moles/Vol] Serum or plasma an ion gap determination [facility] Campy coli+jejuni BD MaxOrde red By: Jb Grady on 09-30-2024 C. coli+jejuni tuf gene DAISY+probe Ql (Stl) Campy coli+jejuni BD Max Negative [facility] Comment on above: Campylobacter test i ncludes C. jejuni and C. coli. Clostridioides difficile tox in B tcdB gene [Presence] in Stool by DAISY with probe deteOrdered By: Jb Grady on 09-30-2024 C. difficile toxin B tcdB gene DAISY+probe Ql (Stl) Clostridioides difficile toxin B tcdB gene [Presence] in Stool by DAISY with probe dete Negative [facility] Comment on above: Testing performed by RT-PCR Clostridium Difficileon 09-11 Clostridium Difficile Negative Normal Negative [facility] Comment on above: Result Comment: Test ing performed by RT-PCR PERFORMED BY: [place] [id number] PATHOLOGIST REPORT CLERK BENNY ARAUJO M.D. Performed By: #### S TCYRPTOAG, GIARDIA #### [facility] , #### CDT, ENT BACT PANEL #### [facility] [address] [place] [address] Cryptosporidium Antigen Stoo kristofer 09-30-2024 Cryptosporidium Antigen Stool Negative Normal Negative [facility] Comment on above: Order Comment: SOURC E OF SPECIMEN: STOOL Performed By: #### S TCYRPTOAG, GIARDIA #### [facility] , #### CDT, ENT BACT PANEL #### [facility] [address] Cryptosporidium sp Ag [Prese nce] in Stool by ImmunoassayOrdered By: Jb Grady on 09-30-2024 Cryptosporidium sp Ag IA Ql (Stl) Cryptosporidium sp Ag [Presence] in Stool by Immunoassay Negative [facility] Giardia Lamblia Ag EIA Stool on 09-30-2024 Giardia Lamblia Ag EIA Stool Negative Normal Negative [facility] Comment on above: Order Comment: SOURC E OF SPECIMEN: STOOL Result Comment: Perf ormed at: CB - [facility] [place] [id number] [place], [place] [id number] Business Dean: Tra Bay PhD, Phone: [phone] PERFORMED BY: [place] [address] PATHOLOGIST REPORT CLERK BENNY ARAUJO M.D. Performed By: #### S TCYRPTOAG, GIARDIA #### [facility] , #### CDT, ENT BACT PANEL #### [facility] [address] [place] [address] Giardia lamblia Ag [Presence ] in Stool by ImmunoassayOrdered By: Jb Grady on 09-30-2024 G. lamblia Ag IA Ql (Stl) Giardia lamblia Ag [Presence] in Stool by Immunoassay Negative [facility] Comment on above: Performed at: [employer] [facility] [address] [id number] Director: Tra Bay PhD, Phone: [phone] Salmonellosis BD MaxOrdered By: Jb Grady on 09-30-2024 Salmonella sp spaO gene DAISY+probe Ql (Stl) Salmonella sp spaO gene [Presence] in Stool by DAISY with probe detection Negative [facility] Comment on above: Testing performed by RT-PCR Shigella Tox 1+2 BD MaxOrder ed By: Jb Grady on 09-30-2024 E. coli stx1+stx2 genes DAISY+probe Ql (Stl) Escherichia coli Stx1 and Stx2 toxin stx1+stx2 genes [Presence] in Stool by DAISY with Negative [facility] Shigellosis BD MaxOrdered By : Jb Grady on 09-30-2024 Shigella species+EIEC invasion plasmid antigen H ipaH gene DAISY+probe Ql (Stl) Shigella species+EIEC invasion plasmid antigen H ipaH gene [Presence] in Stool by DAISY Negative [facility] Comment on above: Shigella sp. test in cludes Shigella species and Enteroinvasive E. coli (EIEC). Stool Bacterial Panelon 09-11 Campylobacter Negative Normal Negative [facility] Comment on above: Result Comment: Camp ylobacter test includes C. jejuni and C. coli. Performed By: #### S TCYRPTOAG, GIARDIA #### [facility] , #### CDT, ENT BACT PANEL #### [address] Salmonella Species Negative Normal Negative [facility] Comment on above: Result Comment: Test ing performed by RT-PCR PERFORMED BY: [place] [address] PATHOLOGIST REPORT CLERK BENNY ARAUJO M.D. Performed By: #### S TCYRPTOAG, GIARDIA #### [facility] , #### CDT, ENT BACT PANEL #### [address] Shiga Toxin (E coli O157+oth) Negative Normal Negative [facility] Comment on above: Performed By: #### S TCYRPTOAG, GIARDIA #### [facility] , #### CDT, ENT BACT PANEL #### [address] Shigella Species Negative Normal Negative [facility] Comment on above: Result Comment: Shig brandy sp. test includes Shigella species and Enteroinvasive E. coli (EIEC). Performed By: #### S TCYRPTOAG, GIARDIA #### [facility] , #### CDT, ENT BACT PANEL #### [place] [address] [place] 36on 09-18-2024 36 LVM for pt to call clinic to schedule consult with Dr. Mccord for Surgical intervention vs SCS. Please let racebook writer or Nayana Crenshaw MA know when scheduled so we may notify [employer] reps. Normal [facility] Telephoneon 09-18-2024 Telephone [phone] Emily Macias 1960 F Date Provider Department Center 09/18/2024 [facility] SURG Second Fl No family history on file Reason for Visit and Comments: REFERRAL CONSULT [Other] Normal [facility] XR KUBon 08-29-2024 XR KUB [facility] Main [place] [address] [place] [address] XRay Report Signed Patient: Emily Macias MR#: [id number] : 1960 Acct:[id number] Age/Sex: 63 / F ADM Date: 08/29/24 Loc: XD Room: Type: [facility] Attending Dr: Jb Grady EXTRACTOR FILLER Copies to: Jb Grady APRN Ordering Provider: [...] Sims Jr., D.OMonalisa08/29/2024 3:27 PM Dictation Location: [place] [address] Transcribed By: [facility] 08/29/24 1527 Dictated By: Bar Sims Jr, DO 08/29/24 1526 Signed By: 08/29/24 1527 Normal [facility] HbA1c HPLC (Bld) [Mass fract ion]on 07-29-2024 HbA1c (Bld) [Mass fraction] Hemoglobin A1c/Hemoglobin.total in Blood by HPLC [facility] Estimated glomerular filtrat ion rate (GFR) non- Americanon 07-17-2024 GFR/1.73 sq M.predicted among non-blacks MDRD (S/P/Bld) [Vol rate/Area] Estimated glomerular filtration rate (GFR) non- >=60 mL/min/1.73m [address] [facility] Globulin Calc (S) [Mass/Vol] on 07-17-2024 Globulin (S) [Mass/Vol] Serum globulin measurement by calculation (mass/volume) [facility] Iron binding capacity [Mass/ volume] in Serum or Plasmaon 07-17-2024 Iron binding capacity [Mass/Vol] Iron binding capacity [Mass/volume] in Serum or Plasma 250.0-450.[address] [facility] Iron saturation [Mass Fracti on] in Serum or Plasmaon 07-17-2024 Iron saturation [Mass fraction] Iron saturation [Mass Fraction] in Serum or Plasma [facility] Laboratory - Chemistry and C hemistry - challengeon 07-17-2024 Albumin [Mass/Vol] 3.8 g/dL 3.4-5.0 [facility] ALP [Catalytic activity/Vol] 81 U/L 46-[address] [facility] ALT [Catalytic activity/Vol] 21 U/L 14-[address] [facility] AST [Catalytic activity/Vol] 18 U/L 15-[address] [facility] Bilirubin [Mass/Vol] 0.4 mg/dL 0.2-1.0 [facility] Calcium [Mass/Vol] 9.2 mg/dL 8.5-10.1 [facility] Chloride [Moles/Vol] 105 mmol/L 98-107 [facility] CO2 [Moles/Vol] 24.1 mmol/L 21.0-32.0 [facility] Cobalamin (Vitamin B12) [Mass/Vol] 887 pg/mL 232-[address] [facility] Comment on above: Performed at: [facility] [address] [id number] Director: Tra Bay PhD, Phone: [phone] Creatinine [Mass/Vol] 0.84 mg/dL 0.55-1.[address] [facility] Ferritin [Mass/Vol] 63.0 ng/mL 8.0-252.0 [facility] Free T4 [Mass/Vol] 1.23 ng/dL 0.76-1.46 [facility] GFR/1.73 sq M.predicted MDRD (S/P/Bld) [Vol rate/Area] mL/min/{1.73_m2} >=60 mL/min/1.73m [address] [facility] Glucose [Mass/Vol] 150 mg/dL High 74-106 [facility] Iron [Mass/Vol] 63.0 ug/dL 50.0-170.[address] [facility] Potassium [Moles/Vol] 4.2 mmol/L 3.5-5.[address] [facility] Protein [Mass/Vol] 7.1 g/dL 6.4-8.2 [facility] Sodium [Moles/Vol] 141 mmol/L 136-145 [facility] TSH Qn 0.749 m[IU]/L 0.358-3.[address] [facility] Urea nitrogen [Mass/Vol] 21.0 mg/dL High 7.0-18.[address] [facility] Urea nitrogen/Creatinine [Mass ratio] 25.0 mg/mg [facility] No Panel Informationon 07-17 25-Hydroxy Vitamin D Total 80.1 ng/mL [facility] Comment on above: <20 ng/mL Vit D defi cient20-<30 ng/mL Vit D upuohrrjtfsw45-894 ng/mL Vit D sufficient>100 ng/mL Potential Toxicity Serum or plasma albumin/glob ulin mass ratioon 07-17-2024 Albumin/Globulin [Mass ratio] Serum or plasma albumin/globulin mass ratio [facility] Serum or plasma anion gap de terminationon 07-17-2024 Anion gap [Moles/Vol] Serum or plasma an ion gap determination [facility] No Panel Informationon 02-26 Radiology Study observation (narrative) [facility] LARGE JOINT/BURSA INJECTION AND/OR ASPIRATION: L kneeon [...] complications The patient was prepped with Chloraprep. [facility] Sagar Krause MD 02/27/2024 1:38 PM LARGE [...] MG/ML The patient was prepped with Betadine. [facility] No Panel Informationon 02-20 [facility] Glucose Glucometer (BldC) [M ass/Vol]Ordered By: Siva Ron on 05-09-2023 Glucose [Mass/Vol] 136 mg/dL [facility] Comment on above: Random Glucose Refer ence Range is dependent on time and content of last meal. Glucose of more than 200 mg/dL in a nonstressed, ambulatory subject supports the diagnosis of Diabetes Mellitus. No Panel InformationOrdered By: Siva Ron on 05-09-2023 Bedside Glucose Comment Glu2: cleaned meter [facility] PANCREATIC ELASTASE FECALon 01-22-2023 Pancreatic Elastase, Fecal 128 ug Elast./g Critically low >200 [facility] Comment on above: Result Comment: Jihan re Pancreatic Insufficiency: <100 Moderate Pancreatic Insufficiency: 100 - 200 Normal: >200 Performed By: #### H PYLORI #### [facility] [address] [place] [address] Dr. Irene Cedillo LACTOFERRIN FECAL QUANTon Lactoferrin, Fecal, Quant. <1.00 Normal 0.00-7.24 [facility] Comment on above: Result Comment: [...] #### S EDR #### [facility] [address] [place] [address] Dr. Irene Cedillo CALPROTECTIN, FECALon 2022 Calprotectin, Fecal 139 ug/g Critically high 0-120 [facility] Comment on above: Result Comment: Conc entration Interpretation Follow-Up <16 - 50 ug/g Normal None >50 -120 ug/g Borderline Re-evaluate in 4-6 weeks >120 ug/g Abnormal Repeat as clinically indicated Performed By: #### H PYLORI #### [facility] [address] [place] [address] Dr. Irene Cedillo PANCREATIC ELASTASE FECALon 01-15-2023 Pancreatic Elastase, Fecal 161 ug Elast./g Critically low >200 [facility] Comment on above: Result Comment: Jihan re Pancreatic Insufficiency: <100 Moderate Pancreatic Insufficiency: 100 - 200 Normal: >200 Performed By: #### A NTI-NICOLLE #### [facility] [address] [place] [address] Dr. Irene Cedillo TSHon 01-09-2023 TSH 1.630 uIU/mL Normal 0.358-3.740 [facility] Comment on above: Performed By: #### T SH #### [facility] [address] [place] [address] Dr. Irene Cedillo ANTIHISTIONE ANTIBODIESon Anti-histone Abs 0.5 Units Normal 0.0-0.9 [facility] Comment on above: Result Comment: Nega tive <1.0 Weak Positive 1.0 - 1.5 Moderate Positive 1.6 - 2.5 Strong Positive >2.5 Performed By: #### C K, CRP #### [facility] [address] [place] [address] [address] Irene Cedillo LARGE JOINT/BURSA INJECTION AND/OR [...] complications The patient was prepped with Betadine. [facility] Radiology Study observation (narrative) [facility] US PELVIS AND TRANSVAGon US PELVIS AND TRANSVAG EXAM: US PELVIS A ND TRANSVAG HISTORY: Left lower quadrant pain COMPARISON: None. TECHNIQUE: Pelvic sonography was performed utilizing grayscale and color Doppler technique. FINDINGS/ IMPRESSION: 1. Hysterectomy. 2. Ovaries not visualized. 3. No adnexal mass. 4. No significant free fluid. Electronically authenticated by: BRI BERGER Date: 2022-11-10 15:54 Normal [facility] LUPUS ANTICOAGULANT PROFILEo n 10-27-2022 Anticardiolipin Ab, IgG <10 Normal T [facility] Comment on above: Result Comment: Refe rence Range: Negative: <15 Indeterminate: 15 - 20 Low to medium positive: >20 - 80 High positive: >80 Performed By: #### L UPUSAC #### [facility] [address] [place] [address] Dr. Irene Cedillo Anticardiolipin Ab, IgM <10 Normal [facility] Comment on above: Result Comment: Refe rence Range: Negative: <13 Indeterminate: 13 - 20 Low to medium positive: >20 - 80 High positive: >80 Performed By: #### L UPUSAC #### [facility] [address] [place] [address] Dr. Irene Cedillo APTT 1:1 SALES OFFICE ADMINISTR[facility] Comment on above: Result Comment: Test ing Not Indicated This test was developed and its performance characteristics determined by [facility]. It has not been cleared or approved by the [place] Food and Drug Administration. Performed By: #### L UPUSAC #### [facility] [address] [place] [address] Dr. Irene Cedillo APTT 1:1 [facility] Comment on above: Result Comment: Test ing Not Indicated This test was developed and its performance characteristics determined by [facility]. It has not been cleared or approved by the [place] Food and Drug Administration. Performed By: #### L UPUSAC #### [facility] [address] [place] [address] Dr. Irene Cedillo aPTT Coag (Bld) [Time] 23.0 s Normal [facility] Comment on above: Result Comment: This test has not been validated for monitoring unfractionated heparin therapy. aPTT-based therapeutic ranges for unfractionated heparin therapy have not been established. Consider ordering Heparin anti-Xa (unfractionated). Reference Range: 18 years and older: 22.9 - 30.2 Performed By: #### L UPUSAC #### [facility] [address] [place] [address] Dr. Irene Cedillo Beta-2 Glycoprotein I, IgA <10 Normal [facility] Comment on above: Result Comment: The reference interval reflects a 3SD or 99th percentile interval. Reference Range: Negative: <26 Performed By: #### L UPUSAC #### [facility] [address] [place] [address] Dr. Yilan Cedillo Beta-2 Glycoprotein I, IgG <10 Normal [facility] Comment on above: Result Comment: The reference interval reflects a 3SD or 99th percentile interval. Reference Range: Negative: <21 Performed By: #### L UPUSAC #### [facility] [address] [place] [address] Dr. Irene Cedillo Beta-2 Glycoprotein I, IgM <10 Normal [facility] Comment on above: Result Comment: The reference interval reflects a 3SD or 99th percentile interval. Reference Range: Negative: <33 Performed By: #### L UPUSAC #### [facility] [address] [place] [address] Dr. Irene Cedillo DRVVT Confirm Seconds NIY Normal [facility] Comment on above: Result Comment: Test ing Not Indicated Performed By: #### L UPUSAC #### [facility] [address] [place] [address] Dr. Irene Cedillo DRVVT Ratio NIY Normal [facility] Comment on above: Result Comment: Test ing Not Indicated Performed By: #### L UPUSAC #### [facility] [address] [place] [address] Dr. Irene Cedillo DRVVT Screen Seconds 33.2 sec Normal [facility] Comment on above: Result Comment: Refe rence Range: <= 47.0 Performed By: #### L UPUSAC #### [facility] [address] [place] [address] Dr. Irene Cedillo Hexagonal Phospholipid Neutral 0 sec Normal [facility] Comment on above: Result Comment: This value is NEGATIVE. This is a qualitative assay and is therefore reported as positive for lupus anticoagulant or negative. The quantitative value is provided as an aid in diagnosis. Reference Range: 0 - 11 Performed By: #### L UPUSAC #### [facility] [address] [place] [address] Dr. Irene Cedillo INR Coag (PPP) [Relative time] 0.9 {INR} Normal [facility] Comment on above: Result Comment: Refe rence Range: >1 month: 0.9 - 1.2 Performed By: #### L UPUSAC #### [facility] [address] [place] [address] Dr. Irene Cedillo LAC Interpretation Comment Normal [facility] Comment on above: Result Comment: A arelis pus anticoagulant is not detected. All antiphospholipid antibodies evaluated are normal. As antibody titers may fluctuate with time, repeat testing may be indicated. Please contact [facility] [facility] if further clarification is needed. Performed By: #### L UPUSAC #### [facility] [address] [place] [address] Dr. Irene Cedillo Platelet Neutralization 0.0 sec Normal [facility] Comment on above: Result Comment: Refe rence Range: 0.0 - 3.0 This test was developed and its performance characteristics determined by [email or web address]. It has not been cleared or approved by the Food and Drug Administration. Performed By: #### L UPUSAC #### [facility] [address] [place] [address] Dr. Irene Cedillo PT Coag (PPP) [Time] 10.0 s Normal [facility] Comment on above: Result Comment: Refe rence Range: 18 years and older: 9.1 - 12.0 Performed By: #### L UPUSAC #### [facility] [address] [place] [address] Dr. Irene Cedillo Thrombin Time 15.5 sec Normal [facility] Comment on above: Result Comment: Refe rence Range: 0.0 - 23.0 Performed By: #### L UPUSAC #### [facility] [address] [place] [address] Dr. Irene Cedillo ADRI by IFAon 10-23-2022 Antinuclear Antibodies, IFA Positive Abnormal [facility] Comment on above: Result Comment: Nega tive <1:80 Borderline 1:80 Positive >1:80 Performed By: #### T SH #### [facility] [address] [place] [address] Dr. Irene Cedillo Centriole Pattern Normal [facility] Comment on above: Performed By: #### T SH #### [facility] [address] [place] [address] Dr. Irene Cedillo Centromere Pattern Normal [facility] Comment on above: Performed By: #### T SH #### [facility] [address] [place], [place] [address] Dr. Irene Cedillo Homogeneous Pattern 1:320 Critically high [facility] Comment on above: Result Comment: ICAP nomenclature: AC-1 Performed By: #### T SH #### [facility] [address], [place] [address] Dr. Irene Cedillo Midbody Pattern Normal [facility] Comment on above: Performed By: #### T SH #### [facility] [address] [place], [place] [address] Dr. Irene Cedillo Note: Comment Normal [facility] Comment on above: Result Comment: [...] titers Nucleosomes, Histones Drug-induced SLE Speckled Sm, BUFF WHEEL FABRICATOR, SCL-70, SLE,MCTD,PSS (diffuse form), SS-A/SS-B Sjogrens Nucleolar SCL-70, PM-1/SCL High titers Scleroderma, PM/DM Centromere Centromere PSS (limited form) w/Crest syndrome variable Nuclear Dot [id number] Primary Biliary Cirrhosis Nuclear GP210, Primary Biliary Cirrhosis Membrane margie A,B,C Performed By: #### T SH #### [facility] [address] [place] [address] Dr. Irene Cedillo Nuclear Dot Pattern Normal [facility] Comment on above: Performed By: #### T SH #### [facility] [address] [place] [address] Dr. Irene Cedillo Nuclear Membrane Pattern Normal [facility] Comment on above: Performed By: #### T SH #### [facility] [address] [place] [address] Dr. Irene Cedillo Nucleolar Pattern Normal [facility] Comment on above: Performed By: #### T SH #### [facility] [address] [place] [address] Dr. Irene Cedillo PCNA Pattern Normal [facility] Comment on above: Performed By: #### T SH #### [facility] [address] [place] [address] Dr. Irene Cedillo Speckled Pattern Normal [facility] Comment on above: Performed By: #### T SH #### [facility] [address] [place] [address] Dr. Irene Cedillo Spindle Apparatus Pattern Normal [facility] Comment on above: Performed By: #### T SH #### [facility] [address] [place] [address] Dr. Irene Cedillo ALDOLASEon 10-19-2022 Aldolase 3.6 U/L Normal 3.3-10.3 [facility] Comment on above: Performed By: #### T SH #### [facility] [address] [place] [address] Dr. Irene Cedillo ANTI-CENTROMERE B ABon 10-19 Anti-Centromere B Antibodies <0.2 Normal 0.0-0.9 [facility] Comment on above: Performed By: #### S EDR #### [facility] [address] [place] [address] Dr. Irene Cedillo ANTI-DNA DS ABon 10-19-2022 Anti-DNA (DS) Ab Qn 1 IU/mL Normal 0-9 [facility] Comment on above: Result Comment: Nega tive <5 Equivocal 5 - 9 Positive >9 Performed By: #### C CPAB #### [facility] [address] [place] [address] Dr. Irene Cedillo ANTI-NICOLLE-1on 10-19-2022 Anti-Nicolle-1 <0.2 Normal 0.0-0.9 [facility] Comment on above: Performed By: #### A NTI-NICOLLE #### [facility] [address] [place] [address] Dr. Irene Cedillo ANTICHROMATIN ANTIBODIESon 0 10-19-2022 Antichromatin Antibodies 0.5 AI Normal 0.0-0.9 [facility] Comment on above: Performed By: #### C K, CRP #### [facility] [address] [place] [address] Dr. Irene Cedillo ANTIEXTRACTABLE NUCLEAR ANTI BODIESon 10-19-2022 BUFF WHEEL FABRICATOR Antibodies <0.2 Normal 0.0-0.9 [facility] Comment on above: Performed By: #### H PYLORI #### [facility] [address] [place] [address] Dr. Irene Cedillo Performed By: #### C CPAB #### [facility] [address] [place] [address] Dr. Irene Cedillo Murray Antibodies <0.2 Normal 0.0-0.9 [facility] Comment on above: Performed By: #### H PYLORI #### [facility] [address] [place] [address] Dr. Irene Cedillo Performed By: #### C CPAB #### [facility] [address] [place] [address] Dr. Irene Cedillo ANTISCLERODERMA ABon 023 Antiscleroderma-70 Antibodies <0.2 Normal 0.0-0.9 [facility] Comment on above: Performed By: #### A NSCLER #### [facility] [address] [place] [address] Dr. Irene Cedillo C3 and C4 COMPLEMENTon 10-19 Complement C3, Serum 171 mg/dL Critically high 82-167 [facility] Comment on above: Performed By: #### H PYLORI #### [facility] [address] [place] [address] Dr. Irene Cedillo Complement C4, Serum 41 mg/dL Critically high 12-38 [facility] Comment on above: Performed By: #### H PYLORI #### [facility] [address] [place] [address] Dr. Irene Cedillo COMPLEMENT TOTAL (CH50)on Complement, [...] C K, CRP #### [facility] [address] [place] [address] Dr. Irene Cedillo CYCLIC CITRULLINATED PEPTIDE AB (CCP)on 10-19-2022 CCP Antibodies IgG/IgA 3 units Normal 0-19 [facility] Comment on above: Result Comment: Nega tive <20 Weak positive 20 - 39 Moderate positive 40 - 59 Strong positive >59 Performed By: #### C CPAB #### [facility] [address] [place] [address] Dr. Irene Cedillo MITICHONDRIAL (M2) ANTIBODYo n 10-19-2022 Mitochondrial (M2) Antibody <20.0 Normal 0.0-20.0 [facility] Comment on above: Result Comment: Nega tive 0.0 - 20.0 Equivocal 20.1 - 24.9 Positive >24.9 . Mitochondrial (M2) Antibodies are found in 90-96% of patients with primary biliary cirrhosis. Performed By: #### C K, CRP #### [facility] [address] [place] [address] Dr. Irene Cedillo RHEUMATOID FACTORon 10-19-19 23 RA Latex Turbid. <10.0 Normal <14.0 [facility] Comment on above: Performed By: #### C CPAB #### [facility] [address] [place] [address] Dr. Irene Cedillo RPR QUANTon 10-19-2022 Rapid Plasma Reagin, Quant Non-Reactive Normal NonRea<1:1 [facility] Comment on above: Result Comment: Plea se Note: This test does not meet current guidelines for screening and diagnosis of syphilis. This test is intended for following treatment response in patients being treated for syphilis infection. To screen for syphilis infection, a reflex cascade that includes both RPR and a treponema-specific assay should be utilized, such as Treponema pallidum (Syphilis) Screening [place] (867710) or Rapid Plasma Reagin (RPR) Test With Reflex to Quantitative RPR and Confirmatory Treponema pallidum Antibodies (645244). Performed By: #### T SH #### [facility] [address] [place] [address] Dr. Irene Cedillo SJOGRENS ANTIBODIES (Anti SS A/B)on 10-19-2022 Sjogren's Anti-SS-A <0.2 Normal 0.0-0.9 [facility] Comment on above: Performed By: #### S EDR #### [facility] [address] [place] [address] Dr. Irene Cedillo Sjogren's Anti-SS-B <0.2 Normal 0.0-0.9 [facility] Comment on above: Performed By: #### S EDR #### [facility] [address] [place] [address] Dr. Irene Cedillo SMOOTH MUSCLE ANTIBODYon Actin (Smooth Muscle) Antibody 5 Units Normal 0-19 [facility] Comment on above: Result Comment: Nega tive 0 - 19 Weak positive 20 - 30 Moderate to strong positive >30 . Actin Antibodies are found in 52-85% of patients with autoimmune hepatitis or chronic active hepatitis and in 22% of patients with primary biliary cirrhosis. Performed By: #### C K, CRP #### [facility] [address] [place] [address] Dr. Irene Cedillo THYROGLOBULIN ABon Thyroglobulin Antibody <1.0 Normal 0.0-0.9 [facility] Comment on above: Result Comment: Thyr oglobulin Antibody measured by [employer] Performed By: #### C CPAB #### [facility] [address] [place] [address] Dr. Irene Cedillo THYROID PEROXIDASE ABon Thyroid Peroxidase (TPO) Ab 11 IU/mL Normal 0-34 [facility] Comment on above: Performed By: #### T SH #### [facility] [address] [place] [address] Dr. Irene Cedillo CBC AUTO DIFFon 10-18-2022 BASO # 0.1 103/ul Normal 0.0-0.1 [facility] Comment on above: Performed By: #### C K, CRP #### [facility] [address] [place] [address] Dr. Irene Cedillo Basophils/100 WBC (Bld) 0.7 % Normal 0.2-2.0 [facility] Comment on above: Performed By: #### C K, CRP #### [facility] [address] [place] [address] Dr. Irene Cedillo EO # 0.2 103/ul Normal 0.0-0.7 [facility] Comment on above: Performed By: #### C K, CRP #### [facility] [address] [place] [address] Dr. Irene Cedillo Eosinophils/100 WBC (Bld) 2.8 % Normal 0.9-7.0 [facility] Comment on above: Performed By: #### C K, CRP #### [facility] [address] [place] [address] Dr. Irene Cedillo Erythrocyte distribution width (RBC) [Ratio] 13.4 % Normal 11.0-15.0 [facility] Comment on above: Performed By: #### C K, CRP #### [facility] [address] [place] [address] Dr. Irene Cedillo Hematocrit (Bld) [Volume fraction] 43.6 % Normal 36.0-48.0 [facility] Comment on above: Performed By: #### C K, CRP #### [facility] [address] [place] [address] Dr. Irene Cedillo Hemoglobin (Bld) [Mass/Vol] 14.1 g/dL Normal 12.0-16.0 [facility] Comment on above: Performed By: #### C K, CRP #### [facility] [address] [place] [address] Dr. Irene Cedillo IG # 0.01 10e3/ul Normal 0.00-0.03 [facility] Comment on above: Performed By: #### C K, CRP #### [facility] [address] [place] [address] Dr. Irene Cedillo IG % 0.1 % Normal 0.0-0.5 [facility] Comment on above: Performed By: #### C K, CRP #### [facility] [address] [place] [address] [address] Irene Cedillo LYMPH # 2.5 103/ul Normal 1.2-3.8 [facility] Comment on above: Performed By: #### C K, CRP #### [facility] [address] [place] [address] [address] Irene Cedillo Lymphocytes/100 WBC (Bld) 35.9 % Normal 20.5-60.0 [facility] Comment on above: Performed By: #### C K, CRP #### [facility] [address] [place] [address] [address] Irene Cedillo MANUAL DIFF REQ NO Normal [facility] Comment on above: Performed By: #### C K, CRP #### [facility] [address] [place] [address] Dr. Irene Cedillo MCH (RBC) [Entitic mass] 29.6 pg Normal 26.7-34.0 [facility] Comment on above: Performed By: #### C K, CRP #### [facility] [address] [place] [address] Dr. Irene Cedillo MCHC (RBC) [Mass/Vol] 32.3 g/dL Normal 29.9-35.2 [facility] Comment on above: Performed By: #### C K, CRP #### [facility] [address] [place] [address] Dr. Irene Cedillo MCV (RBC) [Entitic vol] 91.6 fL Normal 81.0-99.0 [facility] Comment on above: Performed By: #### C K, CRP #### [facility] [address] [place] [address] Dr. Irene Cedillo MONO # 0.4 103/ul Normal 0.3-0.8 [facility] Comment on above: Performed By: #### C K, CRP #### [facility] [address] [place] [address] Dr. Irene Cedillo Monocytes/100 WBC (Bld) 5.2 % Normal 1.7-12.0 [facility] Comment on above: Performed By: #### C K, CRP #### [facility] [address] [place] [address] Dr. Irene Cedillo NEUT # 3.8 103/ul Normal 1.4-6.5 [facility] Comment on above: Performed By: #### C K, CRP #### [facility] [address] [place] [address] Dr. Irene Cedillo Neutrophils/100 WBC (Bld) 55.3 % Normal 43.0-75.0 [facility] Comment on above: Performed By: #### C K, CRP #### [facility] [address] [place] [address] Dr. Irene Cedillo Platelet mean volume (Bld) [Entitic vol] 9.7 fL Normal 9.5-13.5 [facility] Comment on above: Performed By: #### C K, CRP #### [facility] [address] [place] [address] Dr. Irene Cedillo PLT 271 103/ul Normal 150-450 [facility] Comment on above: Performed By: #### C K, CRP #### [facility] [address] [place] [address] Dr. Irene Cedillo RBC 4.76 106/ul Normal 4.20-5.40 [facility] Comment on above: Performed By: #### C K, CRP #### [facility] [address] [place] [address] Dr. Irene Cedillo WBC 6.9 103/ul Normal 4.0-11.0 [facility] Comment on above: Performed By: #### C K, CRP #### [facility] [address] [place] [address] Dr. Irene Cedillo CPKon 10-18-2022 CK [Catalytic activity/Vol] 57 U/L Normal 26-192 [facility] Comment on above: Performed By: #### T SH #### [facility] [address] [place] [address] Dr. Irene Cedillo CRPon 10-18-2022 CRP 0.8 mg/dL Normal <=1.0 [facility] Comment on above: Performed By: #### T SH #### [facility] [address] [place] [address] Dr. Irene Cedillo FREE T4on 10-18-2022 Free T4 [Mass/Vol] 1.07 ng/dL Normal 0.76-1.46 [facility] Comment on above: Performed By: #### C K, CRP #### [facility] [address] [place] [address] Dr. Irene Cedillo PROF 14(COMP METB)on 023 Albumin [Mass/Vol] 3.9 g/dL Normal 3.4-5.0 [facility] Comment on above: Performed By: #### T SH #### [facility] [address] [place] [address] Dr. Irene Cedillo Albumin/Globulin [Mass ratio] 1.1 {ratio} Normal [facility] Comment on above: Performed By: #### T SH #### [facility] [address] [place] [address] Dr. Irene Cedillo ALP [Catalytic activity/Vol] 90 U/L Normal 46-116 [facility] Comment on above: Performed By: #### T SH #### [facility] [address] [place] [address] Dr. Irene Cedillo ALT [Catalytic activity/Vol] 32 U/L Normal 14-59 [facility] Comment on above: Performed By: #### T SH #### [facility] [address] [place] [address] Dr. Irene Cedillo Anion gap [Moles/Vol] 13.8 mmol/L Normal [facility] Comment on above: Performed By: #### T SH #### [facility] [address] [place] [address] Dr. Irene Cedillo AST [Catalytic activity/Vol] 26 U/L Normal 15-37 [facility] Comment on above: Performed By: #### T SH #### [facility] [address] [place] [address] Dr. Irene Cedillo Bilirubin [Mass/Vol] 0.2 mg/dL Normal 0.2-1.0 [facility] Comment on above: Performed By: #### T SH #### [facility] [address] [place] [address] [address] Irene Cedillo Calcium [Mass/Vol] 9.1 mg/dL Normal 8.5-10.1 [facility] Comment on above: Performed By: #### T SH #### [facility] [address] [place] [address] [address] Irene Cedillo Chloride [Moles/Vol] 102 mmol/L Normal 98-107 [facility] Comment on above: Performed By: #### T SH #### [facility] [address] [place] [address] [address] Irene Cedillo CO2 [Moles/Vol] 25.4 mmol/L Normal 21.0-32.0 [facility] Comment on above: Performed By: #### T SH #### [facility] [address] [place] [address] Dr. Irene Cedillo Creatinine [Mass/Vol] 0.64 mg/dL Normal 0.55-1.02 [facility] Comment on above: Performed By: #### T SH #### [facility] [address] [place] [address] [address] Irene Cedillo EGFR-AF TOGOLESE >60 Normal >=60 [facility] Comment on above: Performed By: #### T SH #### [facility] [address] [place] [address] Dr. Irene Cedillo EGFR-NON AF TOGOLESE >60 Normal >=60 [facility] Comment on above: Performed By: #### T SH #### [facility] [address] [place] [address] [address] Irene Cedillo Globulin (S) [Mass/Vol] 3.6 g/dL Normal [facility] Comment on above: Performed By: #### T SH #### [facility] [address] [place] [address] Dr. Irene Cedillo Glucose [Mass/Vol] 132 mg/dL Critically high 74-106 [facility] Comment on above: Performed By: #### T SH #### [facility] [address] [place] [address] [address] Irene Cedillo Potassium [Moles/Vol] 4.2 mmol/L Normal 3.5-5.1 [facility] Comment on above: Performed By: #### T SH #### [facility] [address] [place] [address] [address] Irene Cedillo Protein [Mass/Vol] 7.5 g/dL Normal 6.4-8.2 [facility] Comment on above: Performed By: #### T SH #### [facility] [address] [place] [address] [address] Irene Cedillo Sodium [Moles/Vol] 137 mmol/L Normal 136-145 [facility] Comment on above: Performed By: #### T SH #### [facility] [address] [place] [address] Dr. Irene Cedillo Urea nitrogen [Mass/Vol] 19.0 mg/dL Critically high 7.0-18.0 [facility] Comment on above: Performed By: #### T SH #### [facility] [address] [place] [address] [address] Irene Cedillo Urea nitrogen/Creatinine [Mass ratio] 29.7 mg/mg Normal [facility] Comment on above: Performed By: #### T SH #### [facility] [address] [place] [address] Dr. Ierne Cedillo PROTIMEon 10-18-2022 INR Coag (PPP) [Relative time] {INR} Normal [facility] Comment on above: Performed By: #### C K, CRP #### [facility] [address] [place] [address] Dr. Irene Cedillo INR GUIDELINES SEE BELOW Normal [facility] Comment on above: Result Comment: JUAN RAMON RED INR: 2.0 - 3.0 CONDITIONS NOT LISTED BELOW 2.5 - 3.5 FOR PROSTHETIC HEART VALVE REPLACEMENT 2.5 - 3.5 RECURRENT THROMBOSIS Performed By: #### C K, CRP #### [facility] [address] [place] [address] [address] Irene Cedillo PT Coag (PPP) [Time] 9.8 s Normal 9.0-11.6 [facility] Comment on above: Performed By: #### C K, CRP #### [facility] [address] [place] [address] Dr. Irene Cedillo PTTon 10-18-2022 aPTT Coag (Bld) [Time] 26.0 s Normal 22.3-36.2 [facility] Comment on above: Performed By: #### C K, CRP #### [facility] [address] [place] [address] Dr. Irene Cedillo [facility] 42 mm/hr Critically high <=30 [facility] Comment on above: Performed By: #### S EDR #### [facility] [address] [place] [address] Dr. Irene Cedillo TSHon 10-18-2022 TSH 0.718 uIU/mL Normal 0.358-3.740 [facility] Comment on above: Performed By: #### T SH #### [facility] [address] [place] [address] Dr. Irene Cedillo UA RANDOM W/MICROSCOPICon BACTERIA NONE SEEN Normal NONE SEEN [facility] Comment on above: Performed By: #### C CPAB #### [facility] [address] [place] [address] Dr. Irene Cedillo Bilirubin Ql (U) Negative Normal NEGATIVE [facility] Comment on above: Performed By: #### C CPAB #### [facility] [address] [place] [address] Dr. Irene Cedillo CAST NONE SEEN Normal NONE SEEN [facility] Comment on above: Performed By: #### C CPAB #### [facility] [address] [place] [address] Dr. Irene Cedillo Clarity (U) CLEAR Normal CLEAR [facility] Comment on above: Performed By: #### C CPAB #### [facility] [address] [place] [address] Dr. Ierne Cedillo Color (U) LT. YELLOW Normal YELLOW [facility] Comment on above: Performed By: #### C CPAB #### [facility] [address] [place] [address] Dr. Irene Cedillo Crystals LM Nom (Urine sed) NONE SEEN Normal NONE SEEN [facility] Comment on above: Performed By: #### C CPAB #### [facility] [address] [address] [address] Irene Cedillo Epithelial cells LM Ql (Urine sed) NONE SEEN Normal NONE SEEN /RARE [facility] Comment on above: Performed By: #### C CPAB #### [facility] [address] [place] [address] Dr. Irene Cedillo Glucose Ql (U) Negative Normal NEGATIVE [facility] Comment on above: Performed By: #### C CPAB #### [facility] [address] [place] [address] Dr. Irene Cedillo Hemoglobin Ql (U) Negative Normal NEGATIVE [facility] Comment on above: Performed By: #### C CPAB #### [facility] [address] [place] [address] Dr. Irene Cedillo Ketones Ql (U) Negative Normal NEGATIVE [facility] Comment on above: Performed By: #### C CPAB #### [facility] [address] [place] [address] Dr. Irene Cedillo LEUKOCYTES Negative Normal NEGATIVE [facility] Comment on above: Performed By: #### C CPAB #### [facility] [address] [place] [address] Dr. Irene Cedillo MUCOUS NONE SEEN Normal NONE SEEN [facility] Comment on above: Performed By: #### C CPAB #### [facility] [address] [place] [address] Dr. Irene Cedillo Nitrite Ql (U) Negative Normal NEGATIVE [facility] Comment on above: Performed By: #### C CPAB #### [facility] [address] [place] [address] Dr. Irene Cedillo pH (U) 5.5 [pH] Normal 5-9 [facility] Comment on above: Performed By: #### C CPAB #### [facility] [address] [place] [address] Dr. Irene Cedillo RBC 0-2 Normal 0-2 [facility] Comment on above: Performed By: #### C CPAB #### [facility] [address] [place] [address] Dr. Irene Cedillo SPEC GRAVITY 1.020 Normal 1.005-<=1.02 5 [facility] Comment on above: Performed By: #### C CPAB #### [facility] [address] [place] [address] Dr. Irene Cedillo UA PROTEIN Negative Normal NEGATIVE/ TRACE [facility] Comment on above: Performed By: #### C CPAB #### [facility] [address] [place] [address] Dr. Irene Cedillo Urobilinogen Qn (U) 0.2 {Junior'U}/dL Normal 0.2 - 1. 0 [facility] Comment on above: Performed By: #### C CPAB #### [facility] [address] [place] [address] Dr. Irene Cedillo WBC NONE SEEN Normal NONE SEEN [facility] Comment on above: Performed By: #### C CPAB #### [facility] [address] [place] [address] Dr. Irene Cedillo HLA B 27on 09-21-2022 HLA-B27 Negative Normal [facility] Comment on above: Result Comment: HLA- B*27 Negative B27 allele interpretation for all loci based on IMGT/HLA database version 3.44 This test was developed and its performance characteristics determined by [facility]. It has not been cleared or approved by the Food and Drug Administration. [facility] CLIA ID Number [id number] . This test was performed using PCR (Polymerase Chain Reaction)/SSOP (Sequence Specific Oligonucleotide Probes) technique. SBT (Sequence Based Typing) and/or SSP (Sequence Specific Primers) may be used as supplemental methods when necessary. Please contact [facility] Customer Service at if you have any questions. . Director of [facility] Laboratory Dr Kris Salinas, PhD Performed By: #### C CPAB #### [facility] [address] [place] [address] Dr. Irene Cedillo ADRI by IFAon 09-15-2022 Antinuclear Antibodies, IFA Positive Abnormal [facility] Comment on above: Result Comment: Nega tive <1:80 Borderline 1:80 Positive >1:80 Performed By: #### S EDR #### [facility] [address] [address] [address] Irene Cedillo Centriole Pattern Normal [facility] Comment on above: Performed By: #### S EDR #### [facility] [address] [address] [address] Irene Cedillo Centromere Pattern Normal [facility] Comment on above: Performed By: #### S EDR #### [facility] [address] [address] [address] Irene Cedillo Homogeneous Pattern 1:160 Critically high [facility] Comment on above: Result Comment: ICAP nomenclature: AC-1 Performed By: #### S EDR #### [facility] [address] [address] [address] Irene Cedillo Midbody Pattern Normal [facility] Comment on above: Performed By: #### S EDR #### [facility] [address] [address] [address] Irene Cedillo Note: Comment Normal The [...] titers Nucleosomes, Histones Drug-induced SLE Speckled Sm, BUFF WHEEL FABRICATOR, SCL-70, SLE,MCTD,PSS (diffuse form), SS-A/SS-B Sjogrens Nucleolar SCL-70, PM-1/SCL High titers Scleroderma, PM/DM Centromere Centromere PSS (limited form) w/Crest syndrome variable Nuclear Dot [id number] Primary Biliary Cirrhosis Nuclear GP210, Primary Biliary Cirrhosis Membrane margie A,B,C Performed By: #### S EDR #### [facility] [address] [place] [address] [id number] [address] Irene Cedillo Nuclear Dot Pattern Normal [facility] Comment on above: Performed By: #### S EDR #### [facility] [address] [address] [address] Irene Cedillo Nuclear Membrane Pattern Normal [facility] Comment on above: Performed By: #### S EDR #### [facility] [address] [place] [address] Dr. Irene Cedillo Nucleolar Pattern Normal [facility] Comment on above: Performed By: #### S EDR #### [facility] [address] [address] [address] Irene Cedillo PCNA Pattern Normal [facility] Comment on above: Performed By: #### S EDR #### [facility] [address] [place] [address] Dr. Irene Cedillo Speckled Pattern Normal [facility] Comment on above: Performed By: #### S EDR #### [facility] [address] [place] [address] Dr. Irene Cedillo Spindle Apparatus Pattern Normal [facility] Comment on above: Performed By: #### S EDR #### [facility] [address] [place] [address] Dr. Irene Cedillo CYCLIC CITRULLINATED PEPTIDE AB (CCP)on 09-15-2022 CCP Antibodies IgG/IgA 0 units Normal 0-19 [facility] Comment on above: Result Comment: Nega tive <20 Weak positive 20 - 39 Moderate positive 40 - 59 Strong positive >59 Performed By: #### C CPAB #### [facility] [address] [place] [address] Dr. Irene Cedillo RHEUMATOID FACTORon 09-15-19 23 RA Latex Turbid. <10.0 Normal <14.0 [facility] Comment on above: Performed By: #### C K, CRP #### [facility] [address] [place] [address] Dr. Irene Cedillo CBC AUTO DIFFon 09-13-2022 BASO # 0.0 103/ul Normal 0.0-0.1 [facility] Comment on above: Performed By: #### H PYLORI #### [facility] [address] [place] [address] Dr. Irene Cedillo Basophils/100 WBC (Bld) 0.4 % Normal 0.2-2.0 [facility] Comment on above: Performed By: #### H PYLORI #### [facility] [address] [place] [address] Dr. Irene Cedillo EO # 0.3 103/ul Normal 0.0-0.7 [facility] Comment on above: Performed By: #### H PYLORI #### [facility] [address] [place] [address] Dr. Irene Cedillo Eosinophils/100 WBC (Bld) 4.4 % Normal 0.9-7.0 [facility] Comment on above: Performed By: #### H PYLORI #### [facility] [address] [place] [address] Dr. Irene Cedillo Erythrocyte distribution width (RBC) [Ratio] 13.2 % Normal 11.0-15.0 [facility] Comment on above: Performed By: #### H PYLORI #### [facility] [address] [place] [address] Dr. Irene Cedillo Hematocrit (Bld) [Volume fraction] 41.5 % Normal 36.0-48.0 [facility] Comment on above: Performed By: #### H PYLORI #### [facility] [address] [place] [address] Dr. Irene Cedillo Hemoglobin (Bld) [Mass/Vol] 14.0 g/dL Normal 12.0-16.0 [facility] Comment on above: Performed By: #### H PYLORI #### [facility] [address] [place] [address] Dr. Irene Cedillo IG # 0.02 10e3/ul Normal 0.00-0.03 [facility] Comment on above: Performed By: #### H PYLORI #### [facility] [address] [place] [address] Dr. Irene Cedillo IG % 0.3 % Normal 0.0-0.5 [facility] Comment on above: Performed By: #### H PYLORI #### [facility] [address] [place] [address] Dr. Irene Cedillo LYMPH # 2.5 103/ul Normal 1.2-3.8 [facility] Comment on above: Performed By: #### H PYLORI #### [facility] [address] [place] [address] Dr. Irene Cedillo Lymphocytes/100 WBC (Bld) 34.4 % Normal 20.5-60.0 [facility] Comment on above: Performed By: #### H PYLORI #### [facility] [address] [place] [address] Dr. Irene Cedillo MANUAL DIFF REQ NO Normal [facility] Comment on above: Performed By: #### H PYLORI #### [facility] [address] [place] [address] Dr. Irene Cedillo MCH (RBC) [Entitic mass] 30.0 pg Normal 26.7-34.0 [facility] Comment on above: Performed By: #### H PYLORI #### [facility] [address] [place] [address] Dr. Irene Cedillo MCHC (RBC) [Mass/Vol] 33.7 g/dL Normal 29.9-35.2 [facility] Comment on above: Performed By: #### H PYLORI #### [facility] [address] [place] [address] Dr. Irene Cedillo MCV (RBC) [Entitic vol] 88.9 fL Normal 81.0-99.0 [facility] Comment on above: Performed By: #### H PYLORI #### [facility] [address] [place] [address] Dr. Irene Cedillo MONO # 0.4 103/ul Normal 0.3-0.8 [facility] Comment on above: Performed By: #### H PYLORI #### [facility] [address] [place] [address] Dr. Irene Cedillo Monocytes/100 WBC (Bld) 5.6 % Normal 1.7-12.0 [facility] Comment on above: Performed By: #### H PYLORI #### [facility] [address] [place] [address] Dr. Irnee Cedillo NEUT # 4.0 103/ul Normal 1.4-6.5 [facility] Comment on above: Performed By: #### H PYLORI #### [facility] [address] [address] [address] Irene Cedillo Neutrophils/100 WBC (Bld) 54.9 % Normal 43.0-75.0 [facility] Comment on above: Performed By: #### H PYLORI #### [facility] [address] [address] [address] Irene Cedillo Platelet mean volume (Bld) [Entitic vol] 9.6 fL Normal 9.5-13.5 [facility] Comment on above: Performed By: #### H PYLORI #### [facility] [address] [place] [address] Dr. Irene Cedillo PLT 314 103/ul Normal 150-450 [facility] Comment on above: Performed By: #### H PYLORI #### [facility] [address] [address] [address] Irene Cedillo RBC 4.67 106/ul Normal 4.20-5.40 [facility] Comment on above: Performed By: #### H PYLORI #### [facility] [address] [address] [address] Irene Cedillo WBC 7.3 103/ul Normal 4.0-11.0 [facility] Comment on above: Performed By: #### H PYLORI #### [facility] [address] [place] [address] Dr. Irene Cedillo CRPon 09-13-2022 CRP 0.3 mg/dL Normal <=1.0 [facility] Comment on above: Performed By: #### C K, CRP #### [facility] [address] [address] [address] Irene Cedillo RENAL FUNCTION PANELon 09-13 Albumin [Mass/Vol] 3.7 g/dL Normal 3.4-5.0 [facility] Comment on above: Performed By: #### R ENAL #### [facility] [address] [address] [address] Irene Cedillo Calcium [Mass/Vol] 9.3 mg/dL Normal 8.5-10.1 [facility] Comment on above: Performed By: #### R ENAL #### [facility] [address] [address] [address] Irene Cedillo Chloride [Moles/Vol] 105 mmol/L Normal 98-107 [facility] Comment on above: Performed By: #### R ENAL #### [facility] [address] [place] [address] Dr. Irene Cedillo CO2 [Moles/Vol] 30.5 mmol/L Normal 21.0-32.0 [facility] Comment on above: Performed By: #### R ENAL #### [facility] [address] [place] [address] Dr. Irene Cedillo Creatinine [Mass/Vol] 0.64 mg/dL Normal 0.55-1.02 [facility] Comment on above: Performed By: #### R ENAL #### [facility] [address] [place] [address] Dr. Irene Cedillo EGFR-AF TOGOLESE >60 Normal >=60 [facility] Comment on above: Performed By: #### R ENAL #### [facility] [address] [place] [address] Dr. Irene Cedillo EGFR-NON AF TOGOLESE >60 Normal >=60 [facility] Comment on above: Performed By: #### R ENAL #### [facility] [address] [place] [address] Dr. Irene Cedillo Glucose [Mass/Vol] 130 mg/dL Critically high 74-106 [facility] Comment on above: Performed By: #### R ENAL #### [facility] [address] [place] [address] Dr. Irene Cedillo Phosphate [Mass/Vol] 3.9 mg/dL Normal 2.6-4.7 [facility] Comment on above: Performed By: #### R ENAL #### [facility] [address] [place] [address] Dr. Irene Cedillo Potassium [Moles/Vol] 4.0 mmol/L Normal 3.5-5.1 [facility] Comment on above: Performed By: #### R ENAL #### [facility] [address] [address] [address] Irene Cedillo Sodium [Moles/Vol] 143 mmol/L Normal 136-145 [facility] Comment on above: Performed By: #### R ENAL #### [facility] [address] [address] [address] Irene Cedillo Urea nitrogen [Mass/Vol] 16.0 mg/dL Normal 7.0-18.0 [facility] Comment on above: Performed By: #### R ENAL #### [facility] [address] [address] [address] Irene Cedillo [facility] SED RATE 20 mm/hr Normal <=30 [facility] Comment on above: Performed By: #### C K, CRP #### [facility] [address] [address] [address] Irene Cedillo MRI ANKLE LT WO [...] by: TONY DICKINSON Date: 2022-08-26 09:36 Normal [facility] MAMM SCREEN 3D RIAN CADon 08-08-2022 MG MAMM SCREEN 3D RIAN CAD Patient: EMILY MACIAS Exam Date: 08/08/2022 : 1960 Gender:F Ordering : DR. KENDRA MCKINLEY M.D. Admission #: [id number] Family : DR NETTA MONTOYA M.D. Order #: [id number] CLICK HERE TO VIEW EXAM RADIOLOGY REPORT [...] Alexandre M.D. on 08/09/2022 at 15:10 Normal [facility] GLYCOHEMOGLOBIN A1Con 2021 ADA RECOMMENDATION SEE BELOW Normal [facility] Comment on above: Result Comment: ADA RECOMMENDED LIMIT 4.0 - 6.0 ADA THERAPEUTIC TARGET < 7.0 ACTION SUGGESTED > 7.0 Performed By: #### C CPAB #### [facility] [address] [place] [address] Dr. Irene Cedillo Glucose [Mass/Vol] 128 mg/dL Normal [facility] Comment on above: Performed By: #### C CPAB #### [facility] [address] [address] [address] Irene Cedillo HbA1c (Bld) [Mass fraction] 6.1 % Normal 4.5-6.2 [facility] Comment on above: Performed By: #### C CPAB #### [facility] [address] [address] [address] Irene Cedillo XR FOOT RIAN MIN [...] by: PELON ALEXANDRE Date: 2022-07-06 06:21 Normal [facility] OVA AND PARASITE EXAMINATION on 04-13-2022 Ova + Parasite Exam Final report Normal [facility] Comment on above: Result Comment: Thes e results were obtained using wet preparation(s) and trichrome stained smear. This test does not include testing for Cryptosporidium parvum, Cyclospora, or Microsporidia. Performed By: #### S EDR #### [facility] [address] [address] [address] Irene Cedillo Result 1 Comment Normal [facility] Comment on above: Result Comment: No o va, cysts, or parasites seen. . One negative specimen does not rule out the possibility of a parasitic infection. Performed By: #### S EDR #### [facility] [address] [place] [address] Dr. Irene Cedillo CALPROTECTIN, FECALon 2021 Calprotectin, Fecal 36 ug/g Normal 0-120 [facility] Comment on above: Result Comment: Conc entration Interpretation Follow-Up <16 - 50 ug/g Normal None >50 -120 ug/g Borderline Re-evaluate in 4-6 weeks >120 ug/g Abnormal Repeat as clinically indicated Performed By: #### C K, CRP #### [facility] [address] [place] [address] Dr. Irene Cedillo HELICOBACTER PYLORI AG STOOL on 04-12-2022 H. pylori Stool Ag, EIA Negative Normal Negative [facility] Comment on above: Performed By: #### H PYLORI #### [facility] [address] [place] [address] Dr. Irene Cedillo LACTOFERRIN FECAL QUANTon Lactoferrin, Fecal, Quant. <1.00 Normal 0.00-7.24 [facility] Comment on above: Result Comment: [...] #### T SH #### [facility] [address] [place] [address] Dr. Irene Cedillo C. DIFF PCRon 04-08-2022 C. DIFFICILE PCR Negative Normal NEGATIVE [facility] Comment on above: Performed By: #### S EDR #### [facility] [address] [place] [address] Dr. Irene Cedillo GI PANEL (PCR)on 04-08-2022 Adenovirus F 40/41 Not detected Normal NOT DETECTED [facility] Comment on above: Performed By: #### S EDR #### [facility] [address] [place] [address] Dr. Irene Cedillo Astrovirus Not detected Normal NOT DETECTED [facility] Comment on above: Performed By: #### S EDR #### [facility] [address] [place] [address] Dr. Irene Cedillo C. Diff toxin A/B Not detected Normal NOT DETECTED [facility] Comment on above: Performed By: #### S EDR #### [facility] [address] [place] [address] Dr. Irene Cedillo Campylobacter Not detected Normal NOT DETECTED [facility] Comment on above: Performed By: #### S EDR #### [facility] [address] [place] [address] Dr. Irene Cedillo Cryptosporidium Not detected Normal NOT DETECTED [facility] Comment on above: Performed By: #### S EDR #### [facility] [address] [place] [address] Dr. Irene Cedillo Cyclos. Cayetanensis Not detected Normal NOT DETECTED [facility] Comment on above: Performed By: #### S EDR #### [facility] [address] [place] [address] Dr. Irene Cedillo E. Coli O157 Not Applicable Normal Not Applicable [facility] Comment on above: Performed By: #### S EDR #### [facility] [address] [place] [address] Dr. Irene Cedillo E. histolytica Not detected Normal NOT DETECTED [facility] Comment on above: Performed By: #### S EDR #### [facility] [address] [place] [address] Dr. Irene Cedillo EAEC Not detected Normal NOT DETECTED [facility] Comment on above: Performed By: #### S EDR #### [facility] [address] [place] [address] Dr. Irene Cedillo EIEC Not detected Normal NOT DETECTED [facility] Comment on above: Performed By: #### S EDR #### [facility] [address] [place] [address] Dr. Irene Cedillo EPEC Not detected Normal NOT DETECTED [facility] Comment on above: Performed By: #### S EDR #### [facility] [address] [address] [address] Irene Cedillo ETEC Not detected Normal NOT DETECTED [facility] Comment on above: Performed By: #### S EDR #### [facility] [address] [address] [address] Irene Galindo Lamblia Not detected Normal NOT DETECTED [facility] Comment on above: Performed By: #### S EDR #### [facility] [address] [address] [address] Irene VIGIL CONTROLS PASSED Normal [facility] Comment on above: Performed By: #### S EDR #### [facility] [address] [place] [address] Dr. Irene GRULLON HEADER GI PANEL BACTERIA Normal T [facility] Comment on above: Performed By: #### S EDR #### [facility] [address] [address] [address] Irene CALDERA ECOLI GI PANEL DIARRHEAGEN IC E.COLI / SHIGELLA Normal [facility] Comment on above: Performed By: #### S EDR #### [facility] [address] [place] [address] Dr. Irene CALDERA INFO SEE BELOW [facility] Comment on above: Result Comment: EAEC - Enteroaggregative E. Coli EPEC- Enteropathogenic E. Coli ETEC- Enterotoxigenic E. Coli lt/st STEC- Shigella-like toxin-producing E. Coli stx1/stx2 EIEC- Shigella/Enteroinvasive E. Coli Performed By: #### S EDR #### [facility] [address] [place] [address] Dr. Irene CALDERA PARASITES GI PANEL PARASITES Normal [facility] Comment on above: Performed By: #### S EDR #### [facility] [address] [place] [address] Dr. Irene CALDERA VIRUS GI PANEL VIRUSES Normal [facility] Comment on above: Performed By: #### S EDR #### [facility] [address] [place] [address] Dr. Irene Cedillo Norovirus GI/GII Not detected Normal NOT DETECTED [facility] Comment on above: Performed By: #### S EDR #### [facility] [address] [place] [address] Dr. Irene Ceidllo P. Shigelloides Not detected Normal NOT DETECTED [facility] Comment on above: Performed By: #### S EDR #### [facility] [address] [place] [address] Dr. Irene Cedillo Rotavirus A Not detected Normal NOT DETECTED [facility] Comment on above: Performed By: #### S EDR #### [facility] [address] [place] [address] Dr. Irene Cedillo Salmonella Not detected Normal NOT DETECTED [facility] Comment on above: Performed By: #### S EDR #### [facility] [address] [place] [address] Dr. Irene Cedillo Sapovirus Not detected Normal NOT DETECTED [facility] Comment on above: Performed By: #### S EDR #### [facility] [address] [place] [address] Dr. Irene Cedillo STEC Not detected Normal NOT DETECTED [facility] Comment on above: Performed By: #### S EDR #### [facility] [address] [place] [address] Dr. Irene Cedillo Vibrio Not detected Normal NOT DETECTED [facility] Comment on above: Performed By: #### S EDR #### [facility] [address] [place] [address] Dr. Irene Cedillo Vibrio Cholera Not detected Normal NOT DETECTED [facility] Comment on above: Performed By: #### S EDR #### [facility] [address] [place] [address] Dr. Irene Cedillo Y. Enterocolitica Not detected Normal NOT DETECTED [facility] Comment on above: Performed By: #### S EDR #### [facility] [address] [address] [address] Irene Cedillo BUNon 03-27-2022 Urea nitrogen [Mass/Vol] 20.0 mg/dL Critically high 7.0-18.0 [facility] Comment on above: Performed By: #### C K, CRP #### [facility] [address] [address] [address] Irene Cedillo CREATININEon 03-27-2022 Creatinine [Mass/Vol] 0.75 mg/dL Normal 0.55-1.02 [facility] Comment on above: Performed By: #### C K, CRP #### [facility] [address] [address] [address] Irene Cedillo EGFR-AF TOGOLESE >60 Normal >=60 [facility] Comment on above: Performed By: #### C K, CRP #### [facility] [address] [address] [address] Irene Cedillo EGFR-NON AF TOGOLESE >60 Normal >=60 [facility] Comment on above: Performed By: #### C K, CRP #### [facility] [address] ABD/PELV W CONon [...] and/or use of iterative reconstruction technique. Findings: Measuring Machine Tender: No acute abnormalities are seen. Liver/Biliary System: [...] by: CIELO GARCIA Date: 2022-03-27 21:37 Normal [facility] POINT OF CARE GLUCOSEon - Glucose [Mass/Vol] 173 mg/dL Critically high 74-106 T [facility] Comment on above: Performed By: #### C CPAB #### [facility] [address] [address] [address] Irene Cedillo FSHon 02-25-2022 FSH 46.6 mIU/mL Normal [facility] Comment on above: Result Comment: Adul t Female: Follicular phase 3.5 - 12.5 Ovulation phase 4.7 - 21.5 Luteal phase 1.7 - 7.7 Postmenopausal 25.8 - 134.8 Performed By: #### C K, CRP #### [facility] [address] [address] [address] Irene Cedillo LUTEINIZING HORMONE (LH)on 0 02-25-2022 LH 33.3 mIU/mL Normal [facility] Comment on above: Result Comment: Adul t Female: Follicular phase 2.4 - 12.6 Ovulation phase 14.0 - 95.6 Luteal phase 1.0 - 11.4 Postmenopausal 7.7 - 58.5 Performed By: #### H PYLORI #### [facility] [address] [place] [address] Dr. Irene Cedillo TESTOSTERONE, TOTALon 2021 Testosterone [Mass/Vol] 6 ng/dL Normal 3-67 [facility] Comment on above: Performed By: #### H PYLORI #### [facility] [address] [place] [address] Dr. Irene Cedillo THYROID PEROXIDASE ABon 06- Thyroid Peroxidase (TPO) Ab <8 Normal 0-34 [facility] Comment on above: Performed By: #### C K, CRP #### [facility] [address] [place] [address] Dr. Irene Cedillo FREE T3on 02-24-2022 FREE T3 2.47 pg/mlL Normal 2.18-3.98 [facility] Comment on above: Performed By: #### S EDR #### [facility] [address] [place] [address] Dr. Irene Cedillo LYME DISEASE AB EIA W REFLEX on 01-31-2022 Lyme Total Antibody,EIA Negative Normal Negative [facility] Comment on above: Result Comment: Lyme Antibody [...] #### T SH #### [facility] [address] [place] [address] Dr. Irene Cedillo CPKon 01-30-2022 CK [Catalytic activity/Vol] 76 U/L Normal 26-192 [facility] Comment on above: Performed By: #### C K, CRP #### [facility] [address] [place] [address] Dr. Irene Cedillo CRPon 01-30-2022 CRP 0.4 mg/dL Normal <=1.0 [facility] Comment on above: Performed By: #### C K, CRP #### [facility] [address] [place] [address] Dr. Irene Cedillo SED [facility] 2021 SED RATE 8 mm/hr Normal <=30 [facility] Comment on above: Performed By: #### H PYLORI #### [facility] [address] [address] [address] Irene Cedillo C REACTIVE PROTEINon 021 CRP [Mass/Vol] 9.3 mg/L High 0.0-7.0 [facility] Comment on above: Performed By: #### 6 [id number] #### [address] KNEE LEFT 3 [facility] 09-06-2021 KNEE LEFT 3 S [facility] Department of Radiology [address] [place] [id number] ======== Patient Name: EMILY MACIAS : 1960 Sex: F Age: Race: White Pt. Location: Patient Status: Ordered Date: 09/06/2021 1:35:00 PM Completed Date: 09/06/2021 01:56 PM Requesting Provider: KIARA WILLETT Attending Provider: Report Copy To: Signs & Symptoms: M25.562 Pain in left knee I10 History: [place] Comments: Evaluate Exam: KNEE LEFT 3 S [...] above Electronically signed: Olga Murray. Transcribed by: [email or web address], User Resident: Electronically Signed by: OLGA MURRAY @ 09/06/2021 03:09 PM Normal [facility] Comment on above: Order Comment: Evalu ate KNEE RIGHT 3 [facility] KNEE RIGHT 3 [facility] Department of Radiology [address] [place] [id number] ======== Patient Name: EMILY MACIAS : 1960 Sex: F Age: Race: White Pt. Location: Patient Status: Ordered Date: 09/06/2021 1:35:00 PM Completed Date: 09/06/2021 01:56 PM Requesting Provider: KIARA WILLETT Attending Provider: Report Copy To: Signs & Symptoms: M25.561 Pain in right knee I10 History: Barbara Comments: Evaluate Exam: KNEE RIGHT 3 [facility] ======== KNEE RIGHT 3 [facility] 09/06/2021 1:56 PM CLINICAL INDICATIONS: M25.561 [...] above Electronically signed: Olga Murray. Transcribed by: [email or web address], User Resident: Electronically Signed by: OLGA MURRAY @ 09/06/2021 03:08 PM Normal [facility] Comment on above: Order Comment: Evalu ate SEDIMENTATION RATEon 021 SED RATE 7 mm/hr Normal 0-20 [facility] Comment on above: Performed By: #### 5 [id number] #### [facility] [address] Vital Signs Date Time Vital Sign Value Performing Clinician Facility 04-21-2025 10:15-0400 Body height 165.1 cm Netta Montoya MD Work Phone: [facility] 04-21-2025 10:15-0400 Body mass index (BMI) [Ratio] 32.8 kg/m2 Netta Montoya MD Work Phone: [facility] 04-21-2025 10:15-0400 Body weight 89.35 kg Netta Montoya MD Work Phone: [facility] 04-21-2025 10:15-0400 Diastolic blood pressure 56 mm[Hg] Netta Montoya MD Work Phone: [facility] 04-21-2025 10:15-0400 Heart rate 89 /min Netta Montoya MD Work Phone: [facility] 04-21-2025 10:15-0400 SaO2% (BldA) [Mass fraction] 98 % Netta Montoya MD Work Phone: [facility] 04-21-2025 10:15-0400 Systolic blood pressure 114 mm[Hg] Netta Montoya MD Work Phone: [facility] 04-07-2025 14:55-0400 Body height 166 cm Twan Siesel MD Work Phone: [facility] 04-07-2025 14:55-0400 Body height 165.74 cm Twan Diaz MD Work Phone: [facility] 04-07-2025 14:55-0400 Body mass index (BMI) [Ratio] 32.98 kg/m2 Twan Diaz MD Work Phone: [facility] 04-07-2025 14:55-0400 Body weight 90 kg Twan Diaz MD Work Phone: [facility] 04-07-2025 14:55-0400 Body weight 90.27 kg Twan Diaz MD Work Phone: [facility] 04-07-2025 14:55-0400 BP SITE #1 Twan Diaz MD Work Phone: [facility] 04-07-2025 14:55-0400 Diastolic blood pressure 68 mm[Hg] Twan Diaz MD Work Phone: [facility] 04-07-2025 14:55-0400 Heart rate 91 /min Twan Diaz MD Work Phone: [facility] 04-07-2025 14:55-0400 HGHTCHNVIS Twan Diaz MD Work Phone: [facility] 04-07-2025 14:55-0400 Systolic blood pressure 104 mm[Hg] Twan Diaz MD Work Phone: [facility] 04-07-2025 14:55-0400 VITALSDONE Twan Diaz MD Work Phone: [facility] 04-06-2025 09:21-0400 Body height 165.1 cm Netta Motnoya MD Work Phone: [facility] 04-06-2025 09:21-0400 Body mass index (BMI) [Ratio] 32.5 kg/m2 Netta Montoya MD Work Phone: [facility] 04-06-2025 09:21-0400 Body weight 88.9 kg Netta Montoya MD Work Phone: [facility] 04-06-2025 09:21-0400 Diastolic blood pressure 71 mm[Hg] Netta Montoya MD Work Phone: [facility] 04-06-2025 09:21-0400 Heart rate 81 /min Netta Montoya MD Work Phone: [facility] 04-06-2025 09:21-0400 Systolic blood pressure 128 mm[Hg] Netta Montoya MD Work Phone: [facility] 12-26-2024 10:09-0400 Body height 165.1 cm [facility] 12-26-2024 10:09-0400 Body mass index (BMI) [Ratio] 32.7 kg/m2 [facility] 12-26-2024 10:09-0400 Body weight 89.2 kg [facility] 12-26-2024 10:09-0400 Diastolic blood pressure 70 mm[Hg] [facility] 12-26-2024 10:09-0400 Systolic blood pressure 112 mm[Hg] [facility] 12-10-2024 08:55-0400 Body height 165.1 cm Netta Montoya MD Work Phone: [facility] 12-10-2024 08:55-0400 Body mass index (BMI) [Ratio] 32.5 kg/m2 Netta Montoya MD Work Phone: [facility] 12-10-2024 08:55-0400 Body temperature 98.2 [degF] Netta Montoya MD Work Phone: [facility] 12-10-2024 08:55-0400 Body weight 88.9 kg Netta Montoya MD Work Phone: [facility] 12-10-2024 08:55-0400 Diastolic blood pressure 68 mm[Hg] Netta Montoya MD Work Phone: [facility] 12-10-2024 08:55-0400 Heart rate 88 /min Netta Montoya MD Work Phone: [facility] 12-10-2024 08:55-0400 Systolic blood pressure 103 mm[Hg] Netta Montoya MD Work Phone: [facility] 10-21-2024 09:08-0500 Body height 165.1 cm Netta Montoya MD Work Phone: [phone] [place] [address] 10-21-2024 09:08-0500 Body mass index (BMI) [Ratio] 31.9 kg/m2 Netta Montoya MD Work Phone: [facility] 10-21-2024 09:08-0500 Body weight 87.08 kg Netta Montoya MD Work Phone: [facility] 10-21-2024 09:08-0500 Diastolic blood pressure 64 mm[Hg] Netta Montoya MD Work Phone: [facility] 10-21-2024 09:08-0500 Heart rate 90 /min Netta Montoya MD Work Phone: [facility] 10-21-2024 09:08-0500 SaO2% (BldA) [Mass fraction] 97 % Netta Montoya MD Work Phone: [facility] 10-21-2024 09:08-0500 Systolic blood pressure 107 mm[Hg] Netta Montoya MD Work Phone: [facility] 09-30-2024 13:53-0500 Body height 160.02 cm Netta Montoya MD Work Phone: [facility] 09-30-2024 13:53-0500 Body mass index (BMI) [Ratio] 33.1 kg/m2 Netta Montoya MD Work Phone: [facility] 09-30-2024 13:53-0500 Body weight 84.82 kg Netta Montoya MD Work Phone: [facility] 09-30-2024 13:53-0500 Diastolic blood pressure 70 mm[Hg] Netta Montoya MD Work Phone: [facility] 09-30-2024 13:53-0500 Heart rate 85 /min Netta Montoya MD Work Phone: [facility] 09-30-2024 13:53-0500 Systolic blood pressure 101 mm[Hg] Netta Montoya MD Work Phone: [facility] 08-29-2024 11:03-0500 Diastolic blood pressure 68 mm[Hg] Netta Montoya MD Work Phone: [facility] 08-29-2024 11:03-0500 Heart rate 89 /min Netta Montoya MD Work Phone: [facility] 08-29-2024 11:03-0500 Systolic blood pressure 115 mm[Hg] Netta Montoya MD Work Phone: [facility] 07-29-2024 09:33-0500 Body height 160.02 cm Netta Montoya MD Work Phone: [facility] 07-29-2024 09:33-0500 Body mass index (BMI) [Ratio] 34.3 kg/m2 Netta Montoya MD Work Phone: [facility] 07-29-2024 09:33-0500 Body weight 87.99 kg Netta Montoya MD Work Phone: [facility] 07-29-2024 09:33-0500 Diastolic blood pressure 69 mm[Hg] Netta Montoya MD Work Phone: [facility] 07-29-2024 09:33-0500 Heart rate 75 /min Netta Montoya MD Work Phone: [facility] 07-29-2024 09:33-0500 Systolic blood pressure 101 mm[Hg] Netta Montoya MD Work Phone: [facility] 07-17-2024 13:59-0500 Body height 160.02 cm Netta Montoya MD Work Phone: [facility] 07-17-2024 13:59-0500 Body mass index (BMI) [Ratio] 34.5 kg/m2 Netta Montoya MD Work Phone: [facility] 07-17-2024 13:59-0500 Body weight 88.45 kg Netta Montoya MD Work Phone: [facility] 07-17-2024 13:59-0500 Diastolic blood pressure 69 mm[Hg] Netta Montoya MD Work Phone: [facility] 07-17-2024 13:59-0500 Heart rate 83 /min Netta Montoya MD Work Phone: [facility] 07-17-2024 13:59-0500 SaO2% (BldA) [Mass fraction] 93 % Netta Montoya MD Work Phone: [facility] 07-17-2024 13:59-0500 Systolic blood pressure 117 mm[Hg] Netta Montoya MD Work Phone: [facility] 02-21-2024 13:19-0400 Body height 165.1 cm Sagar Krause MD Work Phone: [facility] 02-21-2024 13:19-0400 Body mass index (BMI) [Ratio] 31.78 kg/m2 Sagar Krause MD Work Phone: [facility] 02-21-2024 13:19-0400 Body temperature 97.11 [degF] Sagar Krause MD Work Phone: [facility] 02-21-2024 13:19-0400 Body weight 86.64 kg Sagar Krause MD Work Phone: [facility] 12-26-2023 13:54-0400 Body height 165.1 cm Radha SANTOS Work Phone: [facility] 12-26-2023 13:54-0400 Body mass index (BMI) [Ratio] 33.45 kg/m2 Radha Asif EXTRACTOR FILLER-ELECTRONIC ENGINEERING DRAFTSPERSON Work Phone: [employer] 12-26-2023 13:54-0400 Body weight 91.17 kg Radha Asif EXTRACTOR FILLER-ELECTRONIC ENGINEERING DRAFTSPERSON Work Phone: [employer] 08-13-2023 09:30-0500 Body height 161.93 cm Netta Montoya Other [employer] Other 08-13-2023 09:30-0500 Body mass index (BMI) [Ratio] 34.46 kg/m2 Netta Montoya Other [employer] Other 08-13-2023 09:30-0500 Body weight 90.36 kg Netta Montoya Other [employer] Other 08-13-2023 09:30-0500 Diastolic blood pressure 70 mm[Hg] Netta Montoya Other [employer] Other 08-13-2023 09:30-0500 Systolic blood pressure 110 mm[Hg] Netta Montoya Other [employer] Other 08-09-2023 14:48-0500 Body height 165.1 cm Sagar Krause MD Work Phone: [employer] 08-09-2023 14:48-0500 Body mass index (BMI) [Ratio] 33.58 kg/m2 Sagar Krause MD Work Phone: [employer] 08-09-2023 14:48-0500 Body weight 91.54 kg Sagar Krause MD Work Phone: [employer] 04-24-2023 13:30-0400 Body height 161.93 cm Siva Ron Other [employer] Other 04-24-2023 13:30-0400 Body mass index (BMI) [Ratio] 32.52 kg/m2 Siva Ron Other [employer] Other 04-24-2023 13:30-0400 Body weight 85.28 kg Siva Ron Other [employer] Other 04-24-2023 13:30-0400 Diastolic blood pressure 70 mm[Hg] Siva Ron Other [employer] Other 04-24-2023 13:30-0400 Systolic blood pressure 126 mm[Hg] Siva Ron Other [employer] Other 02-22-2023 15:15-0400 Body height 165.1 cm Radha Stockey EXTRACTOR FILLER[employer]ELECTRONIC ENGINEERING DRAFTSPERSON Work Phone: [employer] 02-22-2023 15:15-0400 Body mass index (BMI) [Ratio] 31.51 kg/m2 Radha Corporama EXTRACTOR FILLER-ELECTRONIC ENGINEERING DRAFTSPERSON Work Phone: [employer] 02-22-2023 15:15-0400 Body temperature 98.01 [degF] Radha Asif EXTRACTOR FILLER[employer]ELECTRONIC ENGINEERING DRAFTSPERSON Work Phone: [employer] 02-22-2023 15:15-0400 Body weight 85.9 kg Radha Brandee EXTRACTOR FILLER-ELECTRONIC ENGINEERING DRAFTSPERSON Work Phone: [employer] 01-09-2023 09:30-0400 Body height 161.93 cm Netta Montoya Other [employer] Other 01-09-2023 09:30-0400 Body mass index (BMI) [Ratio] 33.04 kg/m2 Netta Montoya Other [employer] [facility] Other 01-09-2023 09:30-0400 Body weight 86.64 kg Netta Montoya Other [employer] Other 01-09-2023 09:30-0400 Diastolic blood pressure 60 mm[Hg] Netta Montoya Other [facility] Other 01-09-2023 09:30-0400 SaO2% (BldA) [Mass fraction] 97 % Netta Montoya Other [facility] [facility] Other 01-09-2023 09:30-0400 Systolic blood pressure 112 mm[Hg] Netta Lindsay Other [facility] [facility] Other 01-01-2023 15:45-0400 Body height 161.93 cm Siva Ron Other [employer] Other 01-01-2023 15:45-0400 Body mass index (BMI) [Ratio] 34.08 kg/m2 Siva Ron Other [facility] [facility] Other 01-01-2023 15:45-0400 Body weight 89.36 kg Siva Ron Other [facility] [facility] Other 01-01-2023 15:45-0400 Diastolic blood pressure 71 mm[Hg] Siva Ron Other [facility] Other 01-01-2023 15:45-0400 Systolic blood pressure 116 mm[Hg] Siva Ron Other [facility] Other 11-30-2022 13:58-0400 Body height 165.1 cm Sagar Krause MD Work Phone: [employer] 11-30-2022 13:58-0400 Body mass index (BMI) [Ratio] 32.12 kg/m2 Sagar Krause MD Work Phone: [employer] 11-30-2022 13:58-0400 Body weight 87.54 kg Sagar Krause MD Work Phone: [employer] 10-10-2022 14:30-0500 Body height 161.93 cm Netta Montoya Other [facility] [facility] Other 10-10-2022 14:30-0500 Body mass index (BMI) [Ratio] 34.08 kg/m2 Netta Montoya Other [facility] Other 10-10-2022 14:30-0500 Body weight 89.36 kg Netta Montoya Other [facility] [facility] Other 10-10-2022 14:30-0500 Diastolic blood pressure 70 mm[Hg] Netta Montoya Other [facility] [facility] Other 10-10-2022 14:30-0500 Systolic blood pressure 108 mm[Hg] Netta Montoya Other [facility] [facility] Other 09-13-2022 16:30-0500 Body height 161.93 cm Netta Montoya Other [facility] [facility] Other 09-13-2022 16:30-0500 Body mass index (BMI) [Ratio] 33.21 kg/m2 Netta Montoya Other [facility] [facility] Other 09-13-2022 16:30-0500 Body weight 87.09 kg Netta Montoya Other [facility] Other 09-13-2022 16:30-0500 Diastolic blood pressure 62 mm[Hg] Netta Montoya Other [facility] Other 09-13-2022 16:30-0500 SaO2% (BldA) [Mass fraction] 97 % Netta Montoya Other [facility] [facility] Other 09-13-2022 16:30-0500 Systolic blood pressure 108 mm[Hg] Netta Montoya Other [facility] Other Encounters Encounter Date Encounter Type Care Provider Facility Start: 05-13-2025 End: 05-13-2025 ambulatory Netta Montoya MD Work Phone: [facility] Work Phone: Start: 05-13-2025 End: 05-13-2025 Patient encounter procedure Netta Montoya MD -[facility] Work Phone: Start: 05-06-2025 End: 05-06-2025 ambulatory Netta Montoya MD Work Phone: [facility] Work Phone: Start: 05-06-2025 End: 05-06-2025 Patient encounter procedure Suzanne Madrigal DO -[facility] Work Phone: Start: 04-21-2025 End: 04-21-2025 ambulatory Netta Montoya MD Work Phone: [facility] Work Phone: Start: 04-21-2025 End: 04-21-2025 Patient encounter procedure Wanda Fonseca MD -[facility] Work Phone: Start: 04-08-2025 Visit out of hours Twna frias MD Work Phone: [facility] Work Phone: Start: 04-07-2025 In-person encounter Twan dee MD Work Phone: [facility] Work Phone: Start: 04-06-2025 End: 04-06-2025 ambulatory Netta Montoya MD Work Phone: [facility] Work Phone: Start: 04-06-2025 End: 04-06-2025 Patient encounter procedure Jb Giles APRN -[facility] Work Phone: Start: 03-19-2025 Non-patient / Non-visit Netta Montoya MD -[facility] Work Phone: Start: 02-25-2025 End: 02-25-2025 Transcribe Orders Daniel Castillo Work Phone: Referring Physician Comment on above: Left knee pain, unsp ecified chronicity (Primary Dx) Start: 02-09-2025 End: 02-09-2025 ambulatory [facility] Start: 01-05-2025 End: 01-05-2025 ambulatory Chandra Edouard MD Facility:[facility] Start: 12-26-2024 End: 12-26-2024 ambulatory Jb Grady Facility:[facility] Start: 12-26-2024 End: 12-26-2024 Patient encounter procedure [facility] Work Phone: Start: 12-22-2024 End: 12-22-2024 ambulatory Ch[facility] Ed[facility]ard MD [facility] Start: 12-10-2024 End: 12-10-2024 ambulatory Netta Montoya MD Work Phone: [facility] Work Phone: Start: 12-10-2024 End: 12-10-2024 Patient encounter procedure Netta Montoya MD Work Phone: [facility] Work Phone: Start: 11-10-2024 Non-patient / Non-visit Netta Montoya MD Work Phone: [facility] Work Phone: Start: 10-21-2024 End: 10-21-2024 ambulatory Netta Montoya MD Work Phone: [facility] Work Phone: Start: 10-21-2024 End: 10-21-2024 Patient encounter procedure Netta Montoya MD Work Phone: [facility] Work Phone: Start: 09-30-2024 End: 09-30-2024 Patient encounter procedure Netta Montoya MD Work Phone: [facility] [place] Work Phone: Start: 09-30-2024 End: 09-30-2024 ambulatory Netta Montoya MD Work Phone: [facility] Work Phone: Start: 09-30-2024 End: 09-30-2024 Patient encounter procedure Netta Montoya MD Work Phone: [facility] Work Phone: Start: 09-19-2024 End: 09-19-2024 ambulatory HANY DARLENE [facility] Start: 09-16-2024 ambulatory NARENDRANATH LAKTYRAMIPATHY [facility] Start: 09-08-2024 End: 09-08-2024 ambulatory Chandra Edouard MD Facility:[facility] Start: 08-29-2024 End: 08-29-2024 Patient encounter procedure Netta Montoya MD Work Phone: [facility] Work Phone: Start: 08-29-2024 End: 08-29-2024 ambulatory Jb Grady Facility:[facility] Start: 08-29-2024 End: 08-29-2024 Patient encounter procedure Netta Montoya MD Work Phone: [facility] Work Phone: Start: 08-18-2024 End: 08-18-2024 ambulatory Chandra Edouard MD Facility: [facility] Start: 07-30-2024 ambulatory NARENDRANATH LAKSHMIPATHY [facility] Start: 07-29-2024 End: 07-29-2024 Patient encounter procedure Netta Montoya MD Work Phone: [facility] Work Phone: Start: 07-17-2024 End: 07-17-2024 Patient encounter procedure Netta Montoya MD Work Phone: [facility] Work Phone: Start: 05-13-2024 ambulatory [facility] Start: 04-14-2024 End: 05-11-2024 [facility] Start: 02-21-2024 End: 02-21-2024 Office outpatient visit 25 minutes Sagar Krause MD Work Phone: [facility] Comment on above: Hx of total knee art hroplasty, left (Primary Dx); Pain in prosthetic joint, subsequent encounter Start: 02-21-2024 End: 02-21-2024 Subsequent hospital visit by physician Sagar Krause MD Work Phone: [facility] Start: 02-21-2024 ambulatory NETTA MONTOYA [facility] Start: 01-09-2024 End: 02-09-2024 [facility] Start: 12-26-2023 End: 01-09-2024 [facility] Start: 12-26-2023 End: 12-26-2023 Office outpatient visit 15 minutes Radha Asif EXTRACTOR FILLER-ELECTRONIC ENGINEERING DRAFTSPERSON Work Phone: [facility] Comment on above: Hx of total knee art hroplasty, left (Primary Dx) Start: 12-26-2023 End: 12-26-2023 Subsequent hospital visit by physician Radha Asfi EXTRACTOR FILLER-ELECTRONIC ENGINEERING DRAFTSPERSON Work Phone: [facility] Start: 12-26-2023 ambulatory [facility] Start: 10-22-2023 End: 02-12-2024 ambulatory Siva Ron Other [facility] Other Start: 10-22-2023 Telephone encounter Siva sheriff [facility] Start: 08-13-2023 End: 08-13-2023 ambulatory Netta Montoya Other [facility] Other Start: 08-13-2023 Office outpatient visit 15 minutes Netta BAUMAN [facility] Start: 08-09-2023 End: 08-09-2023 Office outpatient visit 15 minutes Sagar Krause MD Work Phone: [facility] Comment on above: Post-op pain (Primar y Dx); Pain in prosthetic joint, subsequent encounter Start: 08-09-2023 End: 08-09-2023 Subsequent hospital visit by physician Sagar Krause MD Work Phone: [facility] Start: 08-09-2023 ambulatory NETTA MONTOYA [facility] Start: 06-19-2023 End: 06-19-2023 ambulatory MD Netta Montoya Work Phone: [facility] Work Phone: Start: 06-19-2023 End: 06-19-2023 Patient encounter procedure MD Netta Montoya Work Phone: [facility] Work Phone: Start: 05-22-2023 End: 05-22-2023 ambulatory Siva Ron Other [facility] Other Start: 05-22-2023 Telephone encounter Siva sheriff [facility] [facility] Start: 05-09-2023 End: 05-09-2023 ambulatory MD Netta Montoya Work Phone: [facility] Work Phone: Start: 05-09-2023 End: 05-09-2023 Patient encounter procedure MD Netta Montoya Work Phone: [facility] Work Phone: Start: 04-26-2023 End: 04-26-2023 ambulatory Netta Montoya Other [facility] Other Start: 04-26-2023 Telephone encounter Netta Montoya [facility] Start: 04-24-2023 End: 04-24-2023 ambulatory Siva Ron Other [facility] Other Start: 04-24-2023 Office outpatient visit 25 minutes Siva Ron [facility] Start: 04-23-2023 End: 04-23-2023 ambulatory Netta Montoya Other [facility] Other Start: 04-23-2023 Telephone encounter Netta Montoya [facility] Start: 04-20-2023 End: 04-20-2023 ambulatory Netta Montoya Other [facility] Other Start: 04-20-2023 Telephone encounter Netta Montoya [facility] Start: 03-15-2023 End: 03-15-2023 ambulatory Siva Ron Other [facility] Other Start: 03-15-2023 Telephone encounter Siva Huggins [facility] Start: 02-22-2023 End: 02-22-2023 Postop follow up visit related to original ildefonso Asif EXTRACTOR FILLER-ELECTRONIC ENGINEERING DRAFTSPERSON Work Phone: [facility] Comment on above: Hx of total knee art hroplasty, left (Primary Dx) Start: 02-19-2023 End: 02-19-2023 ambulatory Netta Montoya Other [facility] Other Start: 02-19-2023 Telephone encounter Netta Montoya [facility] Start: 01-18-2023 End: 01-19-[address] Erin RON Facility:[facility] Start: 01-17-2023 End: 01-17-2023 ambulatory Siva Ron Other [facility] Other Start: 01-17-2023 Telephone encounter Siva sheriff [facility] Start: 01-16-2023 End: 01-16-2023 ambulatory Siva Ron Other [facility] Other Start: 01-16-2023 Telephone encounter Siva sheriff [facility] Start: 01-09-2023 Encounter for other preprocedural examination Netta Lindsay [facility] Start: 01-09-2023 Office outpatient visit 15 minutes Netta Lindsay [facility] Start: 01-09-2023 Telephone encounter Netta Lindsay [facility] Start: 01-09-2023 End: 01-10-[address] Erin RON [facility] [employer] Other Start: 01-08-2023 End: 01-08-[address] Erin RON Facility:[facility] Start: 01-02-2023 End: 01-02-2023 ambulatory Siva Ron Other [facility] Other Start: 01-02-2023 Telephone encounter Siva sheriff [facility] Start: 01-01-2023 End: 01-01-2023 ambulatory Siva Ron Other [facility] Other Start: 01-01-2023 Office outpatient ne w 45 minutes Siva Ron [facility] Start: 11-30-2022 End: 11-30-2022 Office outpatient new 60 minutes Sagar Krause MD Work Phone: [facility] Comment on above: Pain in prosthetic j oint, sequela (Primary Dx) Start: 11-30-2022 End: 11-30-2022 Subsequent hospital visit by physician Sagar Krause MD Work Phone: [facility] Start: 11-28-2022 End: 11-29-[address] CARA LEO Facility:[facility] Start: 11-09-2022 End: 11-10-2022 ambulatory BRI BERGER Facility:[facility] Start: 10-18-2022 End: 10-19-[address] CARA LEO Facility:[facility] Start: 10-10-2022 End: 10-10-2022 ambulatory Netta Montoya Other [facility] Other Start: 10-10-2022 Office outpatient visit 15 minutes Netta Montoya [facility] Start: 09-22-2022 End: 09-22-2022 ambulatory Netta Montoya Other [facility] Other Start: 09-22-2022 Telephone encounter Netta Montoya [facility] Start: 09-13-2022 End: 09-14-2022 ambulatory JANETT BALBUENA [employer] Other Start: 09-13-2022 Office outpatient visit 15 minutes Netta Montoya [facility] Start: 08-23-2022 End: 08-24-2022 ambulatory TONY DICKINSON Facility:[facility] Start: 08-22-2022 End: 08-23-2022 ambulatory JANETT BALBUENA Facility:[facility] Start: 08-08-2022 End: 08-09-[address] PELON ALEXANDRE Facility:[facility] Start: 08-01-2022 Adult health examination Netta Montoya Other [facility] Other Start: 08-01-2022 Gynecological examination normal Netta Montoya Other [facility] Other Start: 08-01-2022 Pre-procedure evaluation check Netta Montoya Other [facility] Other Start: 07-11-2022 End: 07-12-[address] NETTA MONTOYA Facility:[facility] Start: 07-05-2022 End: 07-06-2022 ambulatory BASILIO LANDEROS Facility:[facility] Start: 04-08-2022 End: 04-09-[address] DOCTOR DESHPANDE Facility:[facility] Start: 04-05-2022 ambulatory SABINA DELGADILLO . Facility:[facility] Start: 03-28-2022 Encounter for other preprocedural examination DR DOCTOR DESHPANDE [facility] Start: 03-27-2022 End: 03-28-2022 ambulatory [...] Date Procedure Procedure Detail Performing Clinician Start: 04-08-2025 Blood pressure withi n normal parameters - no follow-up required Twan Diaz MD Work Phone: Start: 04-08-2025 BMI documented as ab ove normal parameters - follow-up documented Twan Diaz MD Work Phone: Start: 04-08-2025 Current tobacco non- user cad cap copd pv dm Twan Diaz MD Work Phone: Start: 04-08-2025 Documentation of cur rent medications Twan Diaz MD Work Phone: Start: 04-08-2025 Falls plan of care documented Twan Diaz MD Work Phone: Start: 04-08-2025 Falls risk assessmen t documented Twan Diaz MD Work Phone: Start: 04-08-2025 Pt falls assess docd 2/> falls/fall w/injury/yr Twan Diaz MD Work Phone: Start: 04-08-2025 Pain assessment not documented - reason not given Twan Diaz MD Work Phone: Start: 04-07-2025 Physical therapy management Twan Diaz MD Work Phone: Start: 12-26-2024 Supine abdominal X-ray Netta Montoya [...] RSV Vaccine (1 - 1-dose 75+ series) [facility] Start: 05-11-2025 Influenza vaccination Influenz a Vaccine (Season Ended) [facility] Start: 03-23-2025 End: 03-23-2025 Patient encounter procedure Radiology Comment on above: Left knee pain, unsp ecified chronicity [M25.562] Start: 12-15-2024 Advance Directive Discussion Advance Directive Discussion [facility] Start: 12-15-2024 Screening for osteoporosis Bone Density Screening [facility] Start: 09-30-2024 Cryptosporidium sp A g [Presence] in Stool by Immunoassay [facility] Start: 09-30-2024 Giardia lamblia Ag [Presence] in Stool by Immunoassay [facility] Start: 05-11-2024 Covid-19 Vaccine ( season) Covid-19 Vaccine ( season) [facility] Start: 05-11-2024 Influenza vaccination INFLUENZ A VACCINE (Season Ended) [facility] Start: 02-21-2024 End: 02-20-2025 REQUEST FOR MISC LAB SENDOUT REQUEST FOR MISC LAB SENDOUT Lab Routine Pain in prosthetic joint, subsequent encounter Expected: 02/21/2024, Expires: 02/20/2025 [facility] Comment on above: Expected: 02/21/2024 , Expires: 02/20/2025 Start: 01-30-2024 End: 01-30-2024 Patient encounter procedure 01/30/2024 1:00 PM EDT Office Visit [facility] [address] [place] [address] Radha Asif APRN-ELECTRONIC ENGINEERING DRAFTSPERSON [address] [place] [address] [facility] Start: 08-09-2023 End: 09-06-2023 C-reactive protein C REACTIVE PROTEIN Lab Routine Pain in prosthetic joint, subsequent encounter Expected: 08/09/2023, Expires: 09/06/2023 [facility] Comment on above: Expected: 08/09/2023 , Expires: 09/06/2023 Start: 08-09-2023 End: 09-06-2023 SEDIMENTATION RATE, AUTOMATED SEDIMENTATION RATE, AUTOMATED Lab Routine Pain in prosthetic joint, subsequent encounter Expected: 08/09/2023 (Approximate), Expires: 09/06/2023 [facility] Comment on above: Expected: 08/09/2023 (Approximate), Expires: 09/06/2023 Start: 07-06-2023 Hemoglobin A1c measurement HBA1C TEST [facility] Start: 06-06-2023 End: 06-06-2023 Patient encounter procedure 06/06/2023 1:10 PM EDT Office Visit [facility] [address] [place] [address] Sagar Krause MD [address] [place] [address] [facility] Start: 05-11-2023 COVID-19 VACCINE ( season) COVID-19 VACCINE ( season) [facility] Start: 05-11-2023 Influenza vaccination A [facility] Start: 05-09-[address] [facility] Start: 01-04-2023 End: 01-04-2023 ambulatory 01/04/2023 Pre-Operative Nurse Assessment Internal Medicine [facility] Start: 05-11-2022 Influenza vaccination INFLUENZA VACC INE (#1) [facility] Start: 12-15-2009 Pneumococcal Vaccine : 50+ (1 of 1 - PCV) Pneumococcal Vaccine: 50+ (1 of 1 - PCV) [facility] Start: 12-15-2009 Shingrix Vaccine (1 of 2) Fitzpatrick grix Vaccine (1 of 2) [facility] Start: 12-15-2009 Zoster vaccine hzv l ag for subcutaneous use ZOSTER (SHINGLES) VACCINE (1 of 2) [facility] Start: 12-15-2004 Diabetes Screening Diabetes Screenin g [facility] Start: 12-15-2004 Lipid panel Lipid Screening [facility] Start: 12-15-2004 Screening for malign ant neoplasm of colon [facility] Start: 1999 Lipid panel LIPID SCREENING [facility] Start: 1999 Screening for malign ant neoplasm of breast [facility] Start: 12-15-1980 Screening for malign ant neoplasm of cervix CERVICAL CANCER SCREENING DISCUSSION [facility] Start: 12-15-1978 Third diphtheria, te tanus and acellular pertussis (DTaP) vaccination TDAP (ADULT) [facility] Start: 12-15-1978 Urine microalbumin profile DTaP,Tdap,Td Vaccine (1 - Tdap) [facility] Start: 12-15-1977 Anxiety Screening Anxiety Screening [facility] Start: 12-15-1977 Depression Screening Depression Scre ening [facility] Start: 12-15-1977 Hepatitis C screening Hepatitis C Sc reening [facility] Start: 12-15-1977 HIV screening HIV Screening [facility] Start: 12-15-1974 HIV screening HIV SCREENING DISCUSSION [facility] Start: 06-16-1960 COVID-19 VACCINE (#1) COVID-19 VACCI NE (#1) [facility] Start: 1959 Diabetic foot examination DIABETIC F OOT EXAM [facility] Start: 1959 Glaucoma screening EYE EXAM [facility] Start: 1959 Hepatitis C screening HEPATITI S C VIRUS SCREENING [facility] Start: 1959 Lipid panel LIPIDS [facility] Start: 1959 Tetanus vaccination TETANUS [facility] Start: 1959 Thyroid stimulating hormone measurement TSH [facility] Start: 1959 Urine screening for protein URINE MICROALBUMIN TEST [facility] Comprehensive metabo lic 2000 panel - Serum or Plasma [facility] Radiography for bone length studies XR BONE LENGTH STUDY Imaging Routine Pain in prosthetic joint, sequela 11/30/2022 1:41 PM EDT [facility] Supine abdominal X-ray [facility] XR Knee - left 3 Views XR KNEE L EFT 3 VIEWS Imaging Routine Pain in prosthetic joint, sequela 11/30/2022 1:41 PM EDT [facility] Work Phone: XR Knee - left 3 Views XR KNEE L EFT 3 VIEWS Imaging Routine Hx of total knee arthroplasty, left 02/22/2023 2:50 PM EDT [facility] XR Knee - left 3 Views XR KNEE L EFT 3 VIEWS Imaging Routine Post-op pain 08/09/2023 2:03 PM EST [facility] XR Knee - left 3 Views XR KNEE L EFT 3 VIEWS Imaging Routine Hx of total knee arthroplasty, left 12/26/2023 1:43 PM EDT [facility] XR Knee - left 3 Views XR KNEE L EFT 3 VIEWS Imaging Routine Hx of total knee arthroplasty, left 02/21/2024 1:11 PM EDT [facility] End: 03-27-2026 XR Knee - left 4 Views XR KNEE GENERAL 4V AP BOTH/PA BOTH/LAT/MERC LEFT Radiology Routine Left knee pain, unspecified chronicity 1 Occurrences starting 02/25/2025 until 03/27/2026 [facility] Work Phone: Comment on above: 1 Occurrences starti ng 02/25/2025 until 03/27/2026 [facility] Payers Date Payer Category Payer Medicare [id number] 2025 Private Health Insurance [facility] [id number] 2021 Private Health Insurance 2015 Medicare [id number] 1959 Unknown [id number] 2.16.84 0.1.884030.3.579.2.593 1959 Unknown [id number] 2.16.84 0.1.123900.3.579.2.593 1959 Unknown [id number] 2.16.84 0.1.349788.3.579.2.593 1959 Unknown [id number] 2.16.84 0.1.141448.3.579.2.593 1959 Unknown [id number] 2.16.84 0.1.862487.3.579.2.593 1959 Unknown [id number] 2.16.84 0.1.327882.3.579.2.593 1959 Unknown [id number] 2.16.84 0.1.483989.3.579.2.593 1959 Unknown [id number] 2.16.84 0.1.039426.3.579.2.593 1959 Unknown [id number] 2.16.84 0.1.227895.3.579.2.593 1959 Unknown [id number] 2.16.84 0.1.335105.3.579.2.593 1959 Unknown [id number] 2.16.84 0.1.724364.3.579.2.593 1959 Unknown [id number] 2.16.84 0.1.084259.3.579.2.593 1959 Unknown [id number] 2.16.84 0.1.411536.3.579.2.593 1959 Unknown [id number] 2.16.84 0.1.300205.3.579.2.593 1959 Unknown [id number] 2.16.84 0.1.221786.3.579.2.593 1959 Unknown [id number] 2.16.84 0.1.356436.3.579.2.593 1959 Unknown [id number] 2.16.84 0.1.376026.3.579.2.593 1959 Unknown [id number] 2.16.84 0.1.014429.3.579.2.593 1959 Unknown [id number] 2.16.84 0.1.403703.3.579.2.593 1959 Unknown [id number] 2.16.8 40.1.512535.3.579.2.983 1959 Unknown [id number] 2.16.8 40.1.728275.3.579.2.983 1959 Unknown [id number] 2.16.8 40.1.784827.3.579.2.983 1959 Unknown [id number] 2.16.8 40.1.857655.3.579.2.983 1959 Unknown [id number] 2.16.8 40.1.883512.3.579.2.983 1959 Unknown [id number] 2.16.8 40.1.175938.3.579.2.983 1959 Unknown [id number] 2.16. 840.1.347213.3.579.2.1286 1959 Unknown [id number] 2.16. 840.1.996896.3.579.2.1286 1959 Unknown [id number] 2.16.8 40.1.667717.3.579.2.1286 1959 Unknown [id number] 2.16.8 40.1.048397.3.579.2.1286 1959 Unknown [id number] 2.16.8 40.1.281345.3.579.2.1286 1959 Unknown [id number] 2.16.8 40.1.065250.3.579.2.1286 1959 Unknown [id number] 2.16. 840.1.673237.3.579.2.196 1959 Unknown [id number] 2.16. 840.1.705740.3.579.2.196 1959 Unknown [id number] 2.16. 840.1.961750.3.579.2.196 1959 Unknown [id number] 2.16. 840.1.236884.3.579.2.196 1959 Unknown [id number] 2.16. 840.1.487754.3.579.2.196 1959 Medicare [id number] 2. 16.840.1.508524.19 Unknown [facility] [id number] Social History Date Type Detail Facility Unknown if ever smoked [facility] Other Start: 02-22-2023 End: 04-07-2025 Sex Assigned At [employer] Other Start: 11-30-2022 End: 07-25-2024 Tobacco smoking status NHIS Never smoked tobacco [facility] Start: 11-30-2022 Tobacco use and exposure Smokeless tobacco non-user [facility] Start: 11-30-2022 End: 02-21-2024 Alcohol intake Ex-drinker (finding) [facility] Start: 1960 Sex Assigned At Not on file A [facility] Start: 02-22-2023 End: 12-26-2023 History of Social function [facility] Start: 01-19-2023 End: 01-29-2023 Exposure to SARS-CoV-2 (event) Not sure [facility] Start: 1960 Sex Assigned At Female F [facility] Start: 10-01-2024 Sex Patient sex un known (finding) [facility] Start: 10-21-2024 End: 12-27-2024 Sex Female (finding) [facility] Start: 10-11-2015 Alcoholic beverage intake Current non-drinker of alcohol (finding) [facility] Medical Equipment Procedure Code Equipment Code Equipment Origin al Text Equipment Identifier Dates One Touch Ultra Test Strips Insert - Knee - [id number] Start: 01-29-2023 Patella - Knee - [id number] Start: 01-29-2023 Revision Pressfi t Stem 12mmx 60 [id number] Start: 01-29-2023 Revision Tibial Base Sz 2 [id number] Start: 01-29-2023 Rev Offset Stem 2mm [id number] t: 01-29-2023 Rev Distal Femor al Augment Sz 5 4mm [id number] Start: 01-29-2023 Rev Crs Femoral Sz 5 Left [id number] Start: 01-29-2023 Palacos R 1 X 40 Us - [id number] Start: 01-29-2023 Palacos R & G Smooth ne Cement High-Viscosity With Gentamicin - [id number] Start: 01-29-2023 Blood Sugar Diagnostic (Onetouch [...] strip Start: 09-09-2024 Pen Needle, Diab etic 31 gauge x 3/16 needle Start: 02-16-2025 Blood Sugar Diagnostic (Accu-Chek Guide Test Strips) [...] x 3/16 needle Start: 07-29-2024 End: 07-30-2024 Pen Needle, Diab etic (Bd Ultra-Fine Mini Pen Needle) 31 gauge x 3/16 needle Start: 07-30-2024 End: 02-16-2025 Blood Sugar Diagnostic (Onetouch Ultra Test) strip Start: 09-09-2024 Pen Needle, Diab etic 31 gauge x 3/16 needle Start: 02-16-2025 Blood Sugar Diagnostic (Accu-Chek Guide Test Strips) [...] x 3/16 needle Start: 07-29-2024 End: 07-30-2024 Pen Needle, Diab etic (Bd Ultra-Fine Mini Pen Needle) 31 gauge x 3/16 needle Start: 07-30-2024 End: 02-16-2025 Blood Sugar Diagnostic (Onetouch Ultra Test) strip Start: 09-09-2024 Pen Needle, Diab etic 31 gauge x 3/16 needle Start: 02-16-2025 Blood Sugar Diagnostic (Accu-Chek Guide Test Strips) [...] x 3/16 needle Start: 07-29-2024 End: 07-30-2024 Pen Needle, Diab etic (Bd Ultra-Fine Mini Pen Needle) 31 gauge x 3/16 needle Start: 07-30-2024 End: 02-16-2025 Blood Sugar Diagnostic (Onetouch Ultra Test) strip Start: 09-09-2024 Pen Needle, Diab etic 31 gauge x 3/16 needle Start: 02-16-2025 Blood Sugar Diagnostic (Accu-Chek Guide Test Strips) [...] x 3/16 needle Start: 07-29-2024 End: 07-30-2024 Pen Needle, Diab etic (Bd Ultra-Fine Mini Pen Needle) 31 gauge x 3/16 needle Start: 07-30-2024 End: 02-16-2025 Goals Date Patient Goal Desired Activity /State Functional Status Date Assessment Result Facility 04-07-2025 Functional Status Yes [employer] Work Phone: 04-07-2025 dependent [employer] Work Phone: Mental Status Date Assessment Result Facility 04-07-2025 Cognitive Function [place] [employer] Work Phone: Clinical Notes 03-08-2022 to 04-06-2025 Note Date & Type Note Facility 04-06-2025 Evaluation note Diagnosis Onset Date Resolution Fecal urgency acute April 06, 2025 9:09am GERD (gastroesophageal reflux disease) acute April 06, 2025 9:09am History of pancreatitis acute J willian 2024 9:09am Irritable bowel syndrome with constipation and diarrhea acute April 06, 2025 9:09am Pancreatic insufficiency acute April 06, 2025 9:09am Chronic insomnia acute April 102024 10:03am Depression acute April 21 10:03am Excessive daytime sleepiness acute April 21 10:03am Hypnotic dependence acute 2024 10:03am Hypothyroidism acute April 10:03am Intolerance to BiPAP/CPAP acute April 21 10:03am LUIS (obstructive sleep apnea) acute April 21 10:03am Vitamin B12 deficiency acute Au 2024 10:03am Restless leg syndrome resolved Apr 10:03am [facility] Work Phone: 1(947) 487-237907-28-2025 Evaluation note* Diagnosis Onset Date Resolution Status Admit Date Fecal urgency acute April 06, 2025 9:09am GERD (gastroesophageal reflu x disease) acute April 06, 2025 9:09am History of pancreatitis acute J willian 2024 9:09am Irritable bowel syndrome wit h constipation and diarrhea acute March 112024 9:09am Pancreatic insufficiency acute April 06, 2025 9:09am Chronic insomnia acute April 102024 10:03am Depression acute April 21 10:03am Hypnotic dependence acute 2024 10:03am LUIS (obstructive sleep apnea) acute April 21, 2025 10:03am Restless leg syndrome resolved Apr 10:03am [facility] Work Phone: 1(104) 790-285907-28-2025 Evaluation note* Diagnosis Onset Date Resolution Status Admit Date Fecal urgency acute April 06, 2025 9:09am GERD (gastroesophageal reflu x disease) acute April 06, 2025 9:09am History of pancreatitis acute J willian 2024 9:09am Irritable bowel syndrome wit h constipation and diarrhea acute March 112024 9:09am Pancreatic insufficiency acute April 06, 2025 9:09am Chronic insomnia acute April 102024 10:03am Depression acute April 21, 10:03am Hypnotic dependence acute Augus t 2024 10:03am LUIS (obstructive sleep apnea) acute April 21, 2025 10:03am Restless leg syndrome resolved Apr 10:03am Left leg pain acute April 2:28pm Numbness and tingling acute Apr 2:28pm [facility] Work Phone: 1(257) 851-834505-22-2025 NoteReceived referral again for same dx. LVM for pt to call clinic to schedule consult with Dr. Mccord to discuss SCS. Please let racebook writer know when scheduled. [facility] will need notified. Imaging obtained.[facility] 10-21-2024 Evaluation note* Diagnosis Onset Date Resolution Status [...] and diarrhea acute December 26, 2024 10:06am [facility] Work Phone: 1(879) 879-297702-11-2025 Evaluation note* Diagnosis Onset Date Resolution Status [...] and diarrhea acute December 26, 2024 10:06am [facility] Work Phone: 1(693) 984-342801-21-2025 Evaluation note* Diagnosis Onset Date Resolution Status [...] h hyperglycemia acute December 10, 2024 8:54am [facility] Work Phone: 1(506) 236-615211-19-2024 Evaluation note* Diagnosis Onset Date Resolution Status [...] B12 deficiency acute Fe bruary 2024 8:57am [facility] Work Phone: 1(873) 914-449011-07-2024 Evaluation note* Diagnosis Onset Date Resolution Status [...] 1:49pm Nausea acute September 30, 2024 1:49pm [facility] Work Phone: 1(561) 127-548906-13-2024 History of Present illness Narrative* Sandra Canales [...] 02/21/2024 1:17 PM Patient: Emily Macias MR#: [id number] : 1960 Age: 63 y.o. Referring Physician: [...] daily. 60 capsule 0 Cholecalciferol 250 MCG (15748 UT) capsule capsule Take by mouth daily. [...] DR tablet Take by mouth daily. Pancrelipase, Sav-Uwed-Txjy, (CREON PO) Take 36,000 Units by mouth. [...] by Nasal route once for 1 dose. [place] into the nose as directed. Call 911. [...] 60 capsule, Rfl: 0 Cholecalciferol 250 MCG (73930 UT) capsule capsule, Take by mouth daily., [...] by mouth daily., Disp: , Rfl: Pancrelipase, Mks-Slqu-Ykne, (CREON PO), Take 36,000 Units by mouth. [...] by Nasal route once for 1 dose. [place] into the nose as directed. Call 911. [...] bracing and also reported she applied for legal financial specialist for additional PT. Should she need additional [...] have reviewed the findings of the clinical marketing support coordinator and agree with their assessment. Ortho Nurse - Established Patient Intake Room#: 2 Pt is here for left knee pain ( LTKA revision 01/30/24. Pt states that she is still having pain in her knee. Pain is 4-5. Pt did physical therapy, and took the medication but no relief. Pt would like to discuss options Date: 02/21/2024 1:17 PM Patient: Emily Macias MR#: [id number] : 1960 Age: 63 y.o. Referring Physician: [...] daily. 60 capsule 0 Cholecalciferol 250 MCG (29687 UT) capsule capsule Take by mouth daily. [...] DR tablet Take by mouth daily. Pancrelipase, Xgr-Viae-Asoa, (CREON PO) Take 36,000 Units by mouth. [...] by Nasal route once for 1 dose. [place] into the nose as directed. Call 911. [...] 60 capsule, Rfl: 0 Cholecalciferol 250 MCG (22227 UT) capsule capsule, Take by mouth daily., [...] by mouth daily., Disp: , Rfl: Pancrelipase, Syr-Ctuw-Xifu, (CREON PO), Take 36,000 Units by mouth. [...] by Nasal route once for 1 dose. [place] into the nose as directed. Call 911. [...] zanaflex [tizanidine], and vancomycin. documented in this encounterV[facility]04-17-2024 History of Present illness Narrative* Raven Mera - 12/26/2023 2:00 PM EDT Ortho Nurse - Established Patient Intake Room#: 5 Date: 12/26/2023 1:55 PM Patient: Emily Macias MR#: [id number] : 1960 Age: 63 y.o. 1yr L [...] daily. 60 capsule 0 Cholecalciferol 250 MCG (92259 UT) capsule capsule Take by mouth daily. [...] DR tablet Take by mouth daily. Pancrelipase, Fmi-Bjvo-Ojza, (CREON PO) Take 36,000 Units by mouth. [...] by Nasal route once for 1 dose. [place] into the nose as directed. Call 911. [...] 60 capsule, Rfl: 0 Cholecalciferol 250 MCG (65691 UT) capsule capsule, Take by mouth daily., [...] by mouth daily., Disp: , Rfl: Pancrelipase, Hqh-Bsvp-Cgnb, (CREON PO), Take 36,000 Units by mouth. [...] by Nasal route once for 1 dose. [place] into the nose as directed. Call 911. [...] and vancomycin. * Radha Asif APRN-KEIRA - 12/26/2023 2:00 PM EDT SUBJECTIVE: [...] up with Dr. Krause for clinical examination. ([id number]) I have reviewed the findings of the clinical marketing support coordinator and agree with their assessment. Radha Asif APRN-KEIRA Ortho Nurse - Established Patient Intake Room#: 5 Date: 12/26/2023 1:55 PM Patient: Emily Macias MR#: [id number] : 1960 Age: 63 y.o. 1yr L TKA Pt stated her knee has been locking on her and has pain 5/10. Pt stated she is almost always a 4-5/10 on the pain scale. Referring Physician: Self, Self Insurance: Payor: MEDICARE [employer] HMO OR PPO / Plan: MEDICARE [employer] HMO / Product Type: *No Product type* [...] daily. 60 capsule 0 Cholecalciferol 250 MCG (50850 UT) capsule capsule Take by mouth daily. [...] DR tablet Take by mouth daily. Pancrelipase, Efl-Wmfi-Zhrw, (CREON PO) Take 36,000 Units by mouth. [...] by Nasal route once for 1 dose. [place] into the nose as directed. Call 911. [...] 60 capsule, Rfl: 0 Cholecalciferol 250 MCG (77258 UT) capsule capsule, Take by mouth daily., [...] by mouth daily., Disp: , Rfl: Pancrelipase, Yzs-Ipcf-Dikt, (CREON PO), Take 36,000 Units by mouth. [...] by Nasal route once for 1 dose. [place] into the nose as directed. Call 911. [...] zanaflex [tizanidine], and vancomycin. documented in this encounterV[facility] Administration12-04-2023 Evaluation note* Encounter Date Diagnosis Assessment Notes Treatment Notes Treatment Clinical Notes Aug, Piriformis syndrome, right (ICD-10 - G57.01) Pt declines PT at this time. Gave handouts for exercises and use flexeril qhs. Aug, Trochanteric bursitis, right hip (ICD-10 - M70.61) Pt declines PT. Muscle relaxer and handouts given. [facility] Other 11-30-2023 History of Present illness Narrative* [...] 08/09/2023 2:58 PM Patient: Emily Macias MR#: [id number] : 1960 Age: 62 y.o. Referring Physician: Sagar Krause MD Insurance: Payor: MEDICARE [employer] HMO OR PPO / Plan: MEDICARE [employer] O / Product Type: *No Product type* / [...] DR tablet Take by mouth daily. Pancrelipase, Euv-Qugf-Ivwr, (CREON PO) Take 36,000 Units by mouth. [...] taking: Reported on 08/09/2023) Cholecalciferol 250 MCG (31572 UT) capsule capsule Take by mouth daily. [...] by Nasal route once for 1 dose. [place] into the nose as directed. Call 911. [...] have reviewed the findings of the clinical marketing support coordinator and agree with their assessment. Ortho Nurse [...] 08/09/2023 2:58 PM Patient: Emily Macias MR#: [id number] : 1960 Age: 62 y.o. Referring Physician: [...] DR tablet Take by mouth daily. Pancrelipase, Kmf-Abab-Bbig, (CREON PO) Take 36,000 Units by mouth. [...] taking: Reported on 08/09/2023) Cholecalciferol 250 MCG (91252 UT) capsule capsule Take by mouth daily. [...] by Nasal route once for 1 dose. [place] into the nose as directed. Call 911. [...] zanaflex [tizanidine], and vancomycin. documented in this encounterV[facility] Administration08-15-2023 Evaluation note* Encounter Date Diagnosis Assessment Notes Treatment Notes Treatment Clinical Notes Apr, Abdominal cramping (ICD-10 - R10.9) Patient reports doing well Apr, Diverticulosis (ICD-10 - K57.90) Apr, Alternating constipation and diarrhea (ICD-10 - R19.8) Apr, Pancreatic atrophy (ICD-10 - K86.89) Apr, Fatty liver (ICD-10 - K76.0) [facility] Other 08-11-2023 Evaluation note* Encounter Date Diagnosis Assessment Notes Treatment Notes Treatment Clinical Notes Apr, Type 2 diabetes mellitus with hyperglycemia, without long-term current use of insulin (ICD-10 - E11.65) [facility] Other 06-15-2023 History of Present illness Narrative* [...] 02/22/2023 3:16 PM Patient: Emily Macias MR#: [id number] : 1960 Age: 62 y.o. Referring Physician: Radha Asif APRN-KEIRA Insurance: Payor: MEDICARE [employer] HMO OR PPO [...] daily. 84 capsule 0 Cholecalciferol 250 MCG (70228 UT) capsule capsule Take by mouth daily. [...] by Nasal route once for 1 dose. [place] into the nose as directed. Call 911. If no response in 2 minutes use a new nasal spray in other nostril. Repeat until help arrives. 1Each [address] Omep[address] tablet Take by mouth daily. oxyCODONE 5 MG tablet Take 1-2 tabs po q 4-6 hours prn pain. Wean as tolerated. 20 tablet 0 Pancrelipase, Ttz-Syfm-Hjkk, (CREON PO) Take 36,000 Units by mouth. [...] 84 capsule, Rfl: 0 Cholecalciferol 250 MCG (13260 UT) capsule capsule, Take by mouth daily., [...] by Nasal route once for 1 dose. [place] into the nose as directed. Call 911. [...] tolerated., Disp: 20 tablet, Rfl: 0 Pancrelipase, Cty-Fhpm-Tcwk, (CREON PO), Take 36,000 Units by mouth. [...] zanaflex [tizanidine], and vancomycin. * Radha Asif APRN-ELECTRONIC ENGINEERING DRAFTSPERSON - 02/22/2023 3:00 PM EDT HPI: Emily [...] understanding. All pertinent portions of the clinical marketing support coordinator documentation was reviewed and agree. DANIELLE Gimenez I have reviewed the findings of the clinical marketing support coordinator and agree with their assessment. DANIELLE Gimenez Ortho Nurse - Established Patient Intake Room#: 5 Patient is S/P L knee medial/partial revision to TKA. Patient using walker today and penelope hose are in place. She states the worse pain is at HS while trying to sleep. Sitting pain 4/10 Walking pain is 5/10 Date: 02/22/2023 3:16 PM Patient: Emily Macias MR#: [id number] : 1960 Age: 62 y.o. Referring Physician: Radha Asif APRN-CNP Insurance: Payor: [facility] O / Plan: MEDICARE [employer] O / Product Type: *No Product type* / [...] daily. 84 capsule 0 Cholecalciferol 250 MCG (25133 UT) capsule capsule Take by mouth daily. [...] by Nasal route once for 1 dose. [place] into the nose as directed. Call 911. If no response in 2 minutes use a new nasal spray in other nostril. Repeat until help arrives. 1Each [address] Omepraz[address] tablet Take by mouth daily. oxyCODONE 5 MG tablet Take 1-2 tabs po q 4-6 hours prn pain. Wean as tolerated. 20 tablet 0 Pancrelipase, Miv-Ucvi-Fdji, (CREON PO) Take 36,000 Units by mouth. [...] 84 capsule, Rfl: 0 Cholecalciferol 250 MCG (05189 UT) capsule capsule, Take by mouth daily., [...] by Nasal route once for 1 dose. [place] into the nose as directed. Call 911. [...] tolerated., Disp: 20 tablet, Rfl: 0 Pancrelipase, Pyl-Kxkc-Zojh, (CREON PO), Take 36,000 Units by mouth. [...] zanaflex [tizanidine], and vancomycin. documented in this encounterV[facility]05-10-2023 Evaluation note* Encounter Date Diagnosis Assessment Notes Treatment Notes Treatment Clinical Notes January, Alternating constipation and diarrhea (ICD-10 - R19.8) [facility] Other 05-02-2023 Evaluation note* Encounter Date Diagnosis [...] of Farxiga and pt will trial those. [facility] Other 04-24-2023 Evaluation note* Encounter Date Diagnosis [...] scan in October of last year in [place], following a colonoscopy that was done in September Start Mesalamine Dec, Alternating constipation and diarrhea (ICD-10 - R19.8) Start low fod map diet Start probiotics [place] Other 03-23-2023 History of Present illness Narrative* [...] 11/30/2022 2:13 PM Patient: Emily Macias MR#: [id number] : 1960 Age: 61 y.o. Referring Physician: Self, Self Insurance: Payor: MEDICARE [employer] HMO OR PPO / Plan: MEDICARE [employer] HMO / Product Type: *No Product type* [...] [x]cane, []bracing Are you followed by a high school chemistry teacher? [] [x] Name: Are you followed by pain management? [] [x] Name: Are you followed by any other specialists? [x] [] Name: RA Dr Felipa Santana Outpatient Medications Prior to Visit Medication Sig Dispense Refill Ascorbic Acid 1000 MG tablet Take 1 tablet by mouth daily. B Complex Vitamins (B COMPLEX 1 PO) Take by mouth. Biotin 57926 MCG tablet Take by mouth. Cholecalciferol 250 MCG (00720 UT) capsule capsule Take by mouth. Cobalamin [...] Take by mouth., Disp: , Rfl: Biotin 60357 MCG tablet, Take by mouth., Disp: , Rfl: Cholecalciferol 250 MCG (86000 UT) capsule capsule, Take by mouth., Disp: [...] symptoms. She has history of partial medial [place] uni knee on 08/13/[address] Lazar. [...] left knee. She has a medial partial [place] uni-arthroplasty in place with severe adjacent patellofemoral arthritis. IMPRESSION: 1.) History of left partial medial [place] uni knee on 08/13/[address] Lazar. [...] conversion from uni to total for optimal district adviser management. We have discussed in great detail [...] of limb, and ultimately loss of life. skilled nursing expectations, risks and general implant survivorship were also discussed. Despite these risks, the patient would liketo proceed with surgical planning. Today, we will initiate the pre-surgical process including nasalMRSA screening, scheduling an appointment for [facility] and the potential surgical date, andreviewing and [...] Take by mouth., Disp: , Rfl: Biotin 05812 MCG tablet, Take by mouth., Disp: , Rfl: Cholecalciferol 250 MCG (88211 UT) capsule capsule, Take by mouth., Disp: [...] migraines Zanaflex [Tizanidine] Hallucination documented in this [facility]01-31-2023 Evaluation note* Encounter Date Diagnosis Assessment Notes Treatment Notes Treatment Clinical Notes Sep, Fibromyalgia (ICD-10 - M79.7) handicap placard rx handwritten Sep, Type 2 diabetes mellitus with hyperglycemia, without long-term current use of insulin (ICD-10 - E11.65) good readings on home meter with present meds. Sep, Positive ADRI (antinuclear antibody) (ICD-10 - R76.8) Suggested getting on cancellation list at [facility] [employer] Other 01-13-2023 Evaluation note* Encounter Date Diagnosis Assessment Notes Treatment Notes Treatment Clinical Notes Sep, Positive ADRI (antinuclear antibody) (ICD-10 - R76.8) Sep, Fibromyalgia (ICD-10 - M79.7) [facility] Other 01-04-2023 Evaluation note* Encounter Date Diagnosis Assessment Notes Treatment Notes Treatment Clinical Notes Sep, Abdominal cramping (ICD-10 - R10.9) Sep, Type 2 diabetes mellitus with hyperglycemia, without long-term current use of insulin (ICD-10 - E11.65) advised holding or decreasing dose of ozempic to 0.25/week as this could relate to GI side effects [facility] Other 10-31-2022 NotePROCEDURE: XR TIB_FIB RT 2V COMPARISON: 08/24/2021 HISTORY: Pain in lower limb FINDINGS: BONES:No acute fracture or dislocation. Degenerative changes of the knee and ankle. Enthesopathic spurring of the calcaneus SOFT TISSUES:Negative. No visible soft tissue swelling. EFFUSION:None visible. OTHER: Negative. IMPRESSION: Osteoarthritis Electronically authenticated by: WANDA DIANE Date: 2022-07-10 13:36[facility]06-29-2022 NoteCONSULTATION CONSULTATION DATE: 03/08/2022 HISTORY [...] of pain. Activities such as twisting, standing, starch mangle tender hours and physical activity aggravate her pain. [...] care and would like to move forward. PSYCHIATRIC Signed and Approved by: SABINA DELGADILLO . 03/09/2022 13:38:00[facility] Diagnosis Pain in prosthetic joint, sequela- Primary documented in this encounter [facility] noteNo InformationN[place] Other Evaluation note* Diagnosis Hx of total knee arthroplasty, left- Primary documented in this encounter [facility] noteNo assessment information availableNationwide Children[facility] Work Phone: Evaluation note* Diagnosis Post-op pain- Primary Other acute postoperative pain Pain in prosthetic joint, subsequent encounter documented in this encounter [facility]* Diagnosis Hx of total knee arthroplasty, left- Primary documented in this encounter [facility]* Diagnosis Hx of total knee arthroplasty, left- Primary Pain in prosthetic joint, subsequent encounter documented [facility] this encounter [facility]* Diagnosis Left knee pain, unspecified chronicity- Primary documented in this encounter [facility] general Narrative - Reported* Type Description Date [...] diabetes divya itus with hyperglycemia, unspecified whether nursing home insulin use Medical History Fitzpatrick splints, right, [...] AND ADENOIDECTOMY Hospitalization History mono Hospitalization History [employer] Other History general Narrative - Reported* Type [...] diabetes divya itus with hyperglycemia, unspecified whether district adviser insulin use Medical History Fitzpatrick splints, right, [...] 01/29/2023 Hospitalization History mono Hospitalization History menegitis [facility] Other Reason for referral (narrative)* Consultation (Routine) - Patient to Arrange Specialty Diagnoses / Procedures Referred By Westley finnegan Referred To Contact Physical Therapy Diagnoses Hx of total knee arthroplasty, left Radha Asif APRN-CNP [address] [phone] Referral ID Status Reason Start Date Expiration Date V isits Requested Visits Authorized [id number] Patient to Arrange 02/22/2023 03/18/2024 1 1 Scheduling Instructions . * Diagnostic X-Ray (Routine) - New Request Specialty Diagnoses / Procedures Referred By Westley finnegan Referred To Contact Diagnoses Hx of total knee arthroplasty, left Procedures XR KNEE LEFT 3 VIEWS Radha Asif APRN-CNP [address] [place] [address] Referral ID Status Reason Start Date Expiration Date V isits Requested Visits Authorized [id number] New Request 02/20/2023 03/16/2024 1 1 [facility] (narrative)No reason for referral information availableSelect Medical [facility] Work Phone: Summary Purpose Family History Relationship Condition Age at Onset Recorded Date/T joaquina brother Heart disease Unknown father Malignant neoplasm Unknown Hypertension Unknown Family history of mental disorder Unknown mother Malignant neoplasm Unknown Diabetes mellitus Unknown Heart disease Unknown Family Member Condition Full Brother Diabetes - non-insul in dependent Full Brother COPD Father Heart disease Father Gout Mother Vascular disease Mother Blood clots Father Cancer Father Alzheimer Father Alive Mother Heart disease Mother Diabetes - insulin d ependent Mother Cancer Mother Alive Advance Directives Latest Code Status on File [...] 1 Abdominal cramping ( R10.9) Referral Organization [facility] reginaldo Referring Provider First Name Netta Referring Provider Last Name Lindsay Referring Provider Specialty Family [facility] Referred Organization [facility] Referred Provider Ismael Early Referred Address [address] [place], [place],[address] Referred Provider Specialty Gastroentero logy Referral Priority Routine Referral Appointment Date 2022-12-28 General Notes Sonali Cortez 10:30:02 AM >received today, notes locked and referral faxed Sonali Cortez 09/25/2022 10:48:23 AM >pt scheduled Reason 11/21/22 See phone note - this is related to a leadership coach in [place] area testing labs. I do not have a copy of his labs. Diagnosis 1 Positive ADRI (antinu clear antibody) (R76.8) Referral Organization [facility] reginaldo Referring Provider First Name Netta Referring Provider Last Name Lindsay Referring Provider Specialty Family Medi cine Referred Organization [facility] Referred Provider Cara Leo Referred Address [address] [facility] [address] [place],[place],[address] Referred Provider Specialty Rheumatology Referral Priority Routine Referral Appointment Date 2022-11-21 General Notes Sonali Cortez 09:22:28 AM >received today, notes attached and ins card attached. will call pt to see who she saw in [place] to get labs. Sonali Cortez 09/25/2022 10:37:57 AM >spoke with patient and was provided Dr. Balbuena phone number [phone] to request labs. told patient I would [...] XR BONE LENGTH STUDY Sagar Krause MD [address] [place] [id number] Referral ID Status Reason Start Date Expiration Date V isits Requested Visits Authorized [id number] New Request 11/24/2022 12/19/2023 1 1 Specialty Diagnoses / Procedures Referred By Westley finnegan Referred To Contact Diagnoses Pain in prosthetic joint, sequela Procedures XR KNEE LEFT 3 VIEWS Sagar Krause MD [address] [place] [phone] Referral ID Status Reason Start Date Expiration Date V isits Requested Visits Authorized [id number] New Request 11/24/2022 12/19/2023 1 1 Specialty Diagnoses / Procedures Referred By Contac t Referred To Contact Diagnoses Post-op pain Procedures XR KNEE LEFT 3 VIEWS Sagar Krause MD [address] [place] [phone] Referral ID Status Reason Start Date Expiration Date V isits Requested Visits Authorized [id number] New Request 08/06/2023 08/30/2024 1 1 Specialty Diagnoses / Procedures Referred By Contac t Referred To Contact Diagnoses Hx of total knee arthroplasty, left Procedures XR KNEE LEFT 3 VIEWS Radha Asif, EXTRACTOR FILLER-ELECTRONIC ENGINEERING DRAFTSPERSON [address] [place] [phone] Referral ID Status Reason Start Date Expiration Date V isits Requested Visits Authorized [id number] New Request 12/25/2023 01/18/2025 1 1 Specialty Diagnoses / Procedures Referred By Contac t Referred To Contact Diagnoses Hx of total knee arthroplasty, left Procedures XR KNEE LEFT 3 VIEWS Sagar Krause MD [address] [place] [phone] Referral ID Status Reason Start Date Expiration Date V isits Requested Visits Authorized [id number] New Request 02/14/2024 03/10/2025 1 1 Chief [...] 1:45pm Type 2 [facility] July [facility], 2024 9:30am Abdominal [...] Date Type 2 diabetes mellitus with [facility] July 29, 2024 9:30am Abdominal [...] R19.7 R15.9 September 30, 2024 2 :58pm LIUS/ 3 MONTHS October 21, 2024 8:57am headaches [...] 26, 2024 10:06am Chief Complaint Admit Date 6 wk F/U Alternating bowel habits/GERD J willian 2024 9:09am Chief Complaint Admit Date 6 wk F/U Alternating bowel habits/GERD J willian 2024 9:09am luis/ insomnia/ 30 mins April 21, 2025 10:03am Reason for Visit Admit Date Fecal urgency April 06, 2025 9:09 am GERD (gastroesophageal reflux disease) [facility] 2024 9:09am History of pancreatitis April 06, 2025 9:09am Irritable bowel syndrome with constipati on and diarrhea April 06, 2025 9:09am Pancreatic insufficiency April 06, 2025 9:09am Chronic insomnia April 21, 2025 10 :03am Depression April 21, 2025 10 :03am Excessive daytime sleepiness April 10:03am 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, 2025 10 :03am LUIS (obstructive sleep apnea) April 10:03am Restless leg syndrome April 21, 2025 10:03am Left leg pain May 06, 2025 2: 28pm Numbness and tingling May 06, 2025 2:28pm Additional Source Comments INFORMATION SOURCE (unrecogn ized section and content) DATE CREATED AUTHOR 09/08/2021 [facility] DATE CREATED AUTHOR AUTHOR'S ORGANIZ ATION 01/23/2023 [facility] DATE CREATED AUTHOR AUTHOR'S ORGANIZ ATION 02/29/2024 [facility] DATE CREATED AUTHOR AUTHOR'S ORGANIZ ATION 09/22/2024 [facility] DATE CREATED AUTHOR AUTHOR'S ORGANIZ ATION 12/28/2024 [facility] DATE CREATED AUTHOR AUTHOR'S ORGANIZ ATION 02/05/2025 [facility] DATE CREATED AUTHOR AUTHOR'S ORGANIZ ATION 02/16/2025 [facility] REASON FOR VISIT (unrecogniz ed section and content) Specialty Diagnoses / Procedures Referred By Westley finnegan Referred To Contact Diagnoses Pain in prosthetic joint, sequela Procedures XR BONE LENGTH STUDY Sagar Krause MD [address] [place] [phone] Referral ID Status Reason Start Date Expiration Date V isits Requested Visits Authorized [id number] New Request 11/24/2022 12/19/2023 1 1 Reason Comments Pain Reason Comments Surgical Follow-up Specialty Diagnoses / Procedures Referred By Westley finnegan Referred To Contact Diagnoses Post-op pain Procedures XR KNEE LEFT 3 VIEWS Sagar Krause MD [address] [place] [address] Referral ID Status Reason Start Date Expiration Date V isits Requested Visits Authorized [id number] New Request 08/06/2023 08/30/2024 1 1 Reason Comments Pain Specialty Diagnoses / Procedures Referred By Contac t Referred To Contact Diagnoses Hx of total knee arthroplasty, left Procedures XR KNEE LEFT 3 VIEWS Radha Asif, ALVARO-KEIRA [address] [place] [address] Referral ID Status Reason Start Date Expiration Date V isits Requested Visits Authorized [id number] New Request 12/25/2023 01/18/2025 1 1 Reason Comments Follow-up Specialty Diagnoses / Procedures Referred By Contac t Referred To Contact Diagnoses Hx of total knee arthroplasty, left Procedures XR KNEE LEFT 3 VIEWS Sagar Krause MD [address] [place] [address] Referral ID Status Reason Start Date Expiration Date V isits Requested Visits Authorized [id number] New Request 02/14/2024 03/10/2025 1 1 Care Teams (unrecognized sec tion and content) Team Status: Active Member Role Status Dates Netta Montoya MD Primary Care Provider Active Team Status: Active Member Role Status Dates Netta Montoya MD Primary Care Provider Active Start: March 19, 2025 Netta Montoya MD Attending Provider Active St art: March 19, 2025 Team Status: Inactive Member Role Status Dates Netta Montoya MD Primary Care Provider Active Start: April 06, 2025 End: April 06, 2025 Jb Grady APRN Attending Provider Active Start: April 06, 2025 End: April 06, 2025 Methods Analyst Relationship Specialty Start Date End Date Netta Montoya MD [address] [place] [address] PCP - General Family Medicine 10/20/22 Methods Analyst Relationship Specialty Start Date End Date Netta Montoya MD [address] [place] [address] PCP - General Family Medicine 10/20/22 Methods Analyst Relationship Specialty Start Date End Date Netta Montoya MD [address] [place] [phone] PCP - General Family Medicine 10/20/22 Team Status: Inactive Member Role Status Dates Siva Ron MD Attending Provider Active Netta Montoya MD Primary Care Provider Active Team Status: Inactive Member Role Status Dates Netta Montoya MD Primary Care Provider Active Cara Leo MD Attending Provider Active Methods Analyst Relationship Specialty Start Date End Date Netta Montoya MD [address] [place] [address] PCP - General Family Medicine 10/20/22 Methods Analyst Relationship Specialty Start Date End Date Netta Montoya MD [address] [place] [address] PCP - General Family Medicine 10/20/22 Methods Analyst Relationship Specialty Start Date End Date Netta Montoya MD [address] [place] [address] PCP - General Family Medicine 10/20/22 Methods Analyst Relationship Specialty Start Date End Date Netta Montoya MD [address] [place] [address] PCP - General Family Medicine 10/20/22 Team [...] 26, 2024 End: December 26, 2024 Jb Gardy APRN Attending Provider Active Start: December 26, 2024 End: December 26, 2024 Methods Analyst Relationship Specialty Start Date End Date Andrew Berg [facility] [address] [place] [address] PCP - General 12/20/00 Daniel Castillo [address] [place] [address] Pain Management 02/25/25 Team Status: Inactive Member Role Status Dates Netta Montoya MD Primary Care Provider Active Start: April 21, 2025 End: April 21, 2025 Wanda Fonseca MD Attending Provider Active S tart: April 21, 2025 End: April 21, 2025 Team Status: Inactive Member Role Status Dates Netta Montoya MD Primary Care Provider Active Start: May 06, 2025 End: May 06, 2025 Suzanne Madrigal DO Attending Provider Active Sta rt: May 06, 2025 End: May 06, 2025 Team Status: Inactive Member Role Status Dates Netta Montoya MD Primary Care Provider Active Start: May 13, 2025 End: May 13, 2025 Netta Montoya MD Attending Provider Active art: May 13, 2025 End: May 13, 2025 Goals (unrecognized section and content) Goals may be documented in a n alternate section Source Comments (unrecognize d section and content) In the event this informatio n is protected by the Federal Confidentiality of Alcohol and Drug Abuse Patient Records regulations: The Federal rules restrict any use of the information to criminally investigate or prosecute any alcohol or drug abuse patient.[facility] FOR RECORDS PERTAINING TO PATIENTS WHO ARE [...] BE BASED ON THE PRIMARY CLINICAL RECORDS. [employer] [facility]. provides no warranty or guarantee of the accuracy or completeness of information in this document.
--- NOTE | 2025-06-22 09:09 | MR_ITS ---
The [place] [id number] Patient Name: EMILY MACIAS MRN: [id number] date: 1960 Sex: F Assigned Patient Location: MRI Current Patient Location: MRI Accession/Order Number: [id number] Exam Date: 06/22/2025 09:40 Report Date: 06/22/2025 10:39 At the request of: JOY JADE MD Procedure: MR lumbar spine wo con MR lumbar spine wo con 06/22/2025 10:21 AM SIGNS AND SYMPTOMS: ^Left Sciatic Neuropathy PROTOCOL: Multiplanar multisequence MR images of the lumbar spine without IV contrast COMPARISON: 06/04/2024 FINDINGS: Facet hypertrophy contributes to 2 mm of anterolisthesis of L4 upon L5 which is unchanged. There is preservation of vertebral body heights and intervertebral disc spaces. Benign-appearing hemangiomas are noted at L2 and L3. The conus terminates at the mid L1 vertebral body level. No epidural or paraspinous fluid collection is appreciated. At T12-L1: There is a normal disc, central canal, and neural foramen. At L1-L2: There is a normal disc, central canal, and neural foramen. At L2-L3: There is a normal disc, central canal, and neural foramen. At L3-L4: There is a normal disc, central canal, and neural foramen. At L4-L5: Facet degenerative changes are present bilaterally. There is no significant spinal canal or neural foraminal narrowing. At L5-S1: There is a normal disc, central canal, and neural foramen. MR/MR lumbar spine wo con IMPRESSION: Facet hypertrophy contributes to 2 mm of anterolisthesis of L4 upon L5 which is unchanged. At L4-L5: Facet degenerative changes are present bilaterally. There is no significant spinal canal or neural foraminal narrowing. Impression dictated by: Hudson Almeida M.D. 06/22/2025 10:39 AM Dictation Location: [place] [address] Electronically authenticated by: [id number] Y Date: 06/22/2025 10:39
== END 2025-06-22 08:59 | disposition home or self-care (01) ==
LOC: MRI 08:59
PROVIDERS: PCP Family Medicine; Visit Provider Student in an Organized Health Care Education/Training Program
DX: G57.02 Lesion of sciatic nerve, left lower limb (principal); Z96.652 Presence of left artificial knee joint; M25.562 Pain in left knee; M51.369 Other intervertebral disc degeneration, lumbar region without mention of lumbar back pain or lower extremity pain; M85.88 Other specified disorders of bone density and structure, other site
CPT/HCPCS: 72148; 77080

== ENCOUNTER 2025-06-23 11:41 | Outpatient (OUT) | payer MEDICARE, SELFPAY ==
--- OUTSIDE RECORDS SUMMARY | 2024-03-19 04:45 | XMS_ITS ---
Author Organization [facility] vices Address [address] [place] [phone] Care Team Providers Care Cool Roofing Installer Name Role Phone Coral Dawn Unavailable [phone] REASON FOR VISIT Rest #4-DO Social History Sex Assigned At : Social History Observation Description Sex Assigned At Female Encounters Encounter Location Date Provider Diagnosis Dental Main [address] [place], [place] [phone] 03/19/2024 Coral Dawn Plan Of Treatment No Information Progress Notes * Kia MACIASDOB:1960 (64 yo F)Acc No.[id number]:03/19/2024 Patient: Kia RODRIGUEZ Provider: Fay Dawn DDS :1960 A ge:63 Y S ex:Female Date:03/19/2024 Address:[address] [place], [place] [id number] Subjective: * Chief Complaints: * 1 . Rest #4-DO. * Medical History: Objective: * Vitals: Assessment: Plan: * Treatment: * Billing Information: * Visit Code: * Procedure Codes: * Electronic signature of Angela Dawn DDS on 06/23/2025 at 11:46 AM EDT Sign off status: Pending * Provider: Fay Dawn DDS Date: 0 03/19/2024 Generated for Printi ng/Faxing/eTransmitting on: 1 11:46 AM EDT
--- OUTSIDE RECORDS SUMMARY | 2024-03-28 04:45 | XMS_ITS ---
Author Organization [facility] vices Address [address] [place] [phone] Care Team Providers Care Principal Developer Name Role Phone Coral Dawn Unavailable [phone] REASON FOR VISIT Prophy (A) (63) Social History Sex Assigned At : Social History Observation Description Sex Assigned At Female Encounters Encounter Location Date Provider Diagnosis Dental Main [address] [place], [place] [phone] 03/28/2024 Coral Dawn Plan Of Treatment No Information Progress Notes * Kia MACIASDOB:1960 (64 yo F)Acc No.[id number]:03/28/2024 Patient: Kia RODRIGUEZ Provider: Fay Dawn DDS :1960 A ge:63 Y S ex:Female Date:03/28/2024 Address:[address] [place], [place] [phone] Subjective: * Chief Complaints: * 1 . Prophy (A) (63). * Medical History: Objective: * Vitals: Assessment: Plan: * Treatment: * Billing Information: * Visit Code: * Procedure Codes: * Electronic signature of Angela Dawn DDS on 06/23/2025 at 11:46 AM EDT Sign off status: Pending * Provider: Fay Dawn DDS Date: 0 03/28/2024 Generated for Missy chow/Jarod/eTransmitting on: 1 11:46 AM EDT
--- OUTSIDE RECORDS SUMMARY | 2024-03-31 06:00 | XMS_ITS ---
Author Organization [facility] vices Address [address] [place] [phone] Care Team Providers Care Ppap Coordinator Name Role Phone Coral Dawn Unavailable [phone] REASON FOR VISIT Rest #18-MO Social History Sex Assigned At : Social History Observation Description Sex Assigned At Female Encounters Encounter Location Date Provider Diagnosis Dental Main [address] [place], [place] [phone] 03/31/2024 Coral Dawn Plan Of Treatment No Information Progress Notes * Kia MACIASDOB:1960 (64 yo F)Acc No.[id number]:03/31/2024 Patient: Kia RODRIGUEZ Provider: Fay Dawn DDS :1960 A ge:63 Y S ex:Female Date:03/31/2024 Address:[address] [place], [place] [phone] Subjective: * Chief Complaints: * 1 . Rest #18-MO. * Medical History: Objective: * Vitals: Assessment: Plan: * Treatment: * Billing Information: * Visit Code: * Procedure Codes: * Electronic signature of Angela Dawn DDS on 06/23/2025 at 11:48 AM EDT Sign off status: Pending * Provider: Fay Dawn DDS Date: 0 03/31/2024 Generated for Printi ng/Faxing/eTransmitting on: 1 11:48 AM EDT
--- OUTSIDE RECORDS SUMMARY | 2024-07-23 07:30 | XMS_ITS ---
Author Organization The [facility] in [place] Address [address] [place] [address] Care Team Providers Care Sql Tech Name Role Phone Soila Joseph Primary Care Provider Philippe Oropeza [phone] REASON FOR VISIT 1yr f/u Encounters Encounter Location Date Provider Diagnosis [facility] [address] [facility] [address] [place] [address] 07/23/2024 Philippe Daniels Plan Of Treatment No Information Progress Notes * Lissy MACIASDOB:1960 (64 yo F)Acc No.[id number]:07/23/2024 UNLOCKED PROGRESS NOTE Follow Up Patient: Sushila FIGUEREDOYENNY Lissy Sandip Provider: Erin Kemp MD :1960 A ge:63 Y S ex:Female Date:07/23/2024 Address:[address] [place], [place] [address] Pcp:Soila Joseph Subjective: * Chief Complaints: * 1 . 1yr f/u. * Medical History: Objective: * Vitals: Assessment: Plan: * Treatment: * * Electronic signature of Charbel Daniels MD, [id number] on 06/23/2025 at 11:47 AM EDT Sign off status: Pending Visit Status: C ANC (Cancelled) * Provider: Erin Kemp MD Date: 09/22/2023 Generated for Missy chow/Jarod/Kirillitting on: 1 11:47 AM EDT
--- OUTSIDE RECORDS SUMMARY | 2024-09-09 07:20 | XMS_ITS ---
Author Organization [facility] Address [address] [place] [address] Care Team Providers Care In Home Caregiver Name Role Phone Dr. Bar Small Primary Care Provider REASON FOR VISIT FILLING Encounters Encounter Location Date Provider Diagnosis [facility] [address] [place] [address] 09/09/2024 Bar Small Plan Of Treatment Next Appt Details Provider Name:Saba Steele , 09/07/2025 02:15:00 PM, [address] [place], [address], Progress Notes * CURTIS MACIASB:[birth year] 59 (64 yo F)Acc No.[id number]:09/09/2024 Patient: Sushila UDAY EMILY Provider: Sandip Small DDS :1960 A ge:63 Y S ex:Female Date:09/09/2024 Address:[address] [place], [place] [phone] Subjective: * Chief Complaints: * F ILLING * Electronic signature of Dr. Bar Small , [facility], [id number] on 06/23/2025 at 11:47 AM EDT Sign off status: Pending * Provider: Sandip Small DDS Date: 1 Generated for Missy chow/Jarod/Sravan on: 1 11:47 AM EDT
--- OUTSIDE RECORDS SUMMARY | 2024-10-14 09:30 | XMS_ITS ---
Author Organization [facility] Address [address] [address] Care Team Providers Care Screw Machine Operator Name Role Phone Dr. Bar Small Primary Care Provider [phone] Ligia Sherwood Unavailable [phone] REASON FOR VISIT FILLING Encounters Encounter Location Date Provider Diagnosis [facility] [address] [place] [address] 10/14/2024 Ligia Quiñonez Plan Of Treatment Next Appt Details Provider Name:Saba Steele , 09/07/2025 02:15:00 PM, [address] [place], [address], Progress Notes * CURTIS MACIASB:[birth year] 59 (64 yo F)Acc No.[id number]:10/14/2024 Patient: Sushila FRYEMADHUEMILY Provider: Sandip Quiñonez :1960 A ge:63 Y S ex:Female Date:10/14/2024 Address:[address] [place], [place] [id number] Pcp:Dr. Bar Small Subjective: * Chief Complaints: * F ILLING * Electronic signature of Berto Quiñonez DMD on 06/23/2025 at 11:48 AM EDT Sign off status: Pending * Provider: Sandip Quiñonez Date: 0 10/14/2024 Generated for Missy chow/Jarod/Sravan on: 1 11:48 AM EDT
--- OUTSIDE RECORDS SUMMARY | 2025-06-23 11:46 | XMS_ITS | Patient Health Record ---
Author Organization [facility] Address [address] [place] [address] Care Team Providers Care Management Aide Name Role Phone Dr. Bar Small Primary Care Provider [phone] Kapil Saba Steele Unavailable [phone] Ligia Quiñonez Unavailable [phone] Reason For Referral No Information Encounters Encounter Location Date Provider Diagnosis [facility] [address] [place] [address] 08/05/2024 Bar Small [facility] [place] [address] 08/04/2024 Saba Steele Acute gingivitis, plaque induced K05.00 ; Other dental procedure status Z98.818 and Encounter for dental examination and cleaning with abnormal findings Z01.21 [facility] [address] [place] [address] 08/11/2024 Bar Small Dental caries on pit and fissure surface penetrating into dentin K02.52 [facility] [place] [address] 07/21/2024 Ligia Quiñonez Dental caries on pit [...] , 09/07/2025 02:15:00 PM, [address], [place], [address], Insurance Providers Payer Name Payer Address Payer Phone Subscriber Number Group Number Insured Name Patient Relationship to Insured Coverage Start Date Coverage End Date [employer] [address] [place] [address] [id number] EMILY MACIAS Self - patient is the insured 3 DENTAL AETNA MEDICARE [address] [address] [place] [address] [phone] [id number] EMILY MACIAS Self - patient is the insured 3
--- OUTSIDE RECORDS SUMMARY | 2025-06-23 11:46 | XMS_ITS | Clinical Summary ---
Author Organization [facility] Address [address] [place] [address] Care Team Providers Care Senior Architect Name Role Phone Unavailable Primary Care Provider [...] 12/15/2009 Zoster Vaccines (1 of 2) 12/15/2009 Fall Risk Screening 12/15/2024 COVID-19 Vaccine (1 - 2023-2 5 season) 2025 Influenza Vaccine (#1) 2025 HIB Vaccines Aged [...]
--- OUTSIDE RECORDS SUMMARY | 2025-06-23 11:47 | XMS_ITS | Clinical Summary ---
Author Organization [facility] Address [address] [place] [address] Care Team Providers Care Animal Shelter Clerk Name Role Phone Andrew Berg Primary Care Provider [phone] KennroyaDaniel Unavailable Allergies Active Allergy Reactions Criticality [...] 12/15/2034 Insurance MEDICARE AETNA SUPPLEMENT Care Teams Animal Shelter Clerk Relationship Specialty Start Date End Date Andrew Berg [facility] [address] [place] [address] PCP - General 12/20/00 Daniel Castillo [address] [place] [address] Pain Management 02/25/25
--- OUTSIDE RECORDS SUMMARY | 2025-06-23 11:47 | XMS_ITS | Clinical Summary ---
Author Organization [facility] Address [address] [place] [address] Care Team Providers Care Line Lead Name Role Phone Unavailable Primary Care Provider [...]
--- OUTSIDE RECORDS SUMMARY | 2025-06-23 11:47 | XMS_ITS | Clinical Summary ---
Author Organization [employer] [facility] tem Address [id number] [address] [place] [address] Care Team Providers Care Lining Caser Name Role Phone Soila Joseph MD Primary Care Provider [phone] Allergies Active Allergy Reactions Criticality Noted Date Comments Morphine Hives 11/18/2020 Milnacipran 02/09/2017 Tizanidine 02/09/2017 Medications doxepin (SINEquan) 100 mg capsule Take 100 mg by mouth nightly. Active oxybutynin (DITROPAN) 5 mg tablet Take 5 mg by mouth daily. MAY TAKE 2 TABS IF NEEDED Active multivitamin-C d-vtfp-pmhuuaj s tablet Take 1 tablet by mouth [...] (07/12/2017): Added automatically from request for surgery [id number] Disorder of sacrum 03/27/2017 Neck pain 02/12/2017 [...] on file Insurance AETNA MEDICARE Care Teams Lining Caser Relationship Specialty Start Date End Date Soila Joseph MD [address] [place] [address] PCP - General Family Medicine 11/18/20
--- OUTSIDE RECORDS SUMMARY | 2025-06-23 11:47 | XMS_ITS | Patient Health Record ---
Author Organization [facility] Address [address] [place] [address] Care Team Providers Care Computer Assistant Name Role Phone Soila Joseph Primary Care Provider Philippe Oropeza Unavailable [phone] Allergies Allergen (clinical drug ingredient) Drug/Non Drug [...] capsule Orally Once a day Active Creon 93782-489445 UNIT as directed Orally Active Ramelteon 8 [...] Status W/U Status Risk Notes Problem Insomnia (245030190) Insomnia, unspecified (G47.00) Active confirmed Problem Excessive daytime sleepiness (5467648347) Excessive daytime sleepiness (G47.19) Active confirmed Problem Obstructive sleep apnea syndrome (27717646) Obstructive sleep apnea syndrome, mild (G47.33) Active confirmed Plan Of Treatment No Information Insurance Providers Payer Name Payer Address Payer Phone Subscriber Number Group Number Insured Name Patient Relationship to Insured Coverage Start Date Coverage End Date AETNA MEDICARE [address] [place] [id number] Lissy Chu Self - patient is the insured Medical (General) History Surgical History Surgery Date(Month/Year) Surgical / procedural histor y ovarian cyst removed, fundiplication, rectocele Foot Surgery, Right 03/2020 Foot Surgery, Left 10/2019 History of cholecystectomy History of hemorrhoidectomy History of hysterectomy
--- OUTSIDE RECORDS SUMMARY | 2025-06-23 11:47 | XMS_ITS | Clinical Summary ---
Author Organization [employer] Address [address] [place] [address] Care Team Providers Care Commercial Decorator Name Role Phone Soila Joseph MD Primary Care Provider [phone] Allergies Active Allergy Reactions Criticality Noted Date Comments Milnacipran Headache 11/30/2022 migraines Vancomycin Hives Low 01/29/2023 Hives, itching Tizanidine Hallucination 11/30/2022 Medications levothyroxine 112 MCG tablet Take 1 tablet by mouth daily. AM 10/02/19 23 Active metFORMIN 1000 MG tablet 2 times daily. 08/29/20 Active Cholecalciferol 250 MCG (69284 UT) capsule capsule Take by mouth daily. [...] Apply to eye as needed. Active Pancrelipase, Lii-Felo-Veaf, (CREON PO) Take 36,000 Units by mouth. [...] by Nasal route once for 1 dose. [place] into the nose as directed. Call 911. [...] Type Department Care Team Description 05/30/2025 Refill [facility] [address] [place] [id number] Tayler Augustin, DOCK GRADER-TRANSLATOR AND INTERPRETER from Last 3 Months Family History Medical [...] this topic Medical Devices Implanted Type Area Touch Up Edger Device Identifier Shelf Expiration Date Model / Serial / Lot Patella - Knee - [id number] Implanted:Qty: 1 on 01/29/2023 by Sagar Gordon MD at [facility] Left: Knee 12/09/2027 / / [id number] Revision Pressfit Stem 12mmx 60 Implanted:Qty: 1 on 01/29/2023 by Sagar Gordon MD at [facility] Left: Knee 07/10/2032 1513-12-060 / / [id number] Revision Tibial Base Sz 2 Implanted:Qty: 1 on 01/29/2023 by Sagar Gordon MD at [facility] Left: Knee 09/09/2032 1506-40-002 / / [id number] Rev Offset Stem 2mm Implanted:Qty: 1 on 01/29/2023 by Sagar Gordon MD at [facility] Left: Knee DEPUY 01/08/2028 1513-02-000 / / [id number] Rev Distal Femoral Augment Sz 5 4mm Implanted:Qty: 1 on 01/29/2023 by Sagar Gordon MD at [facility] Left: Knee DEPUY 03/09/2032 1547-05-001 / / [id number] Rev Crs Femoral Sz 5 Left Implanted:Qty: 1 on 01/29/2023 by Sagar Gordon MD at [facility] Left: Knee DEPUY 03/09/2032 1504-40-105 / / [id number] Palacos R 1 X 40 Us - [id number] Implanted:Qty: 2 on 01/29/2023 by Sagar Gordon MD at [facility] Left: Knee 07/10/2027 / / [id number] Palacos [employer] Bone Cement High-Viscosity With Gentamicin - [id number] Implanted:Qty: 1 on 01/29/2023 by Sagar Gordon MD at [facility] Left: Knee 11/07/2025 / / [id number] Insert - Knee - [id number] Implanted:Qty: 1 on 01/29/2023 by Sagar Gordon MD at [facility] Left: Knee DEPUY 06/09/2027 / / [id number] Procedures Procedure Name Priority Date/Time Associated Diagnosis Comments HEMOGLOBIN A1C Routine 01/04/2023 12:50 PM EDT Preop testing Abnormal finding of blood chemistry, unspecified from Last 3 Months or Most Recently Relevant to Health Maintenance Results * (ABNORMAL) HEMOGLOBIN A1C (01/04/2023 12:50 PM EDT) HEMOGLOBIN A1C 6.5(H) <6 % [address] Comment: NORMAL <5.7% PREDIABETES 5.7-6.4% DIABETES 6.5% OR HIGHER Estimated Average Glucose 140 mg/dL [address] Blood 01/04/2023 12:5 0 PM EDT 01/04/2023 1:03 PM EDT Sagar Gordon MD HEMATOLOGY ORDERABLES Final Resu lt [address] [address] from Last 3 Months or Most Recently Relevant to Health Maintenance Insurance Medicare A[employer]na HMO Advance Directives For more information, please contact: [phone] (7:30 AM - 6PM [facility], Sunday-Sunday) * Full Code (Latest Code Status on File) Date Activated Date Inactivated Comments 01/29/2023 4:58 PM Care Teams Commercial Decorator Relationship Specialty Start Date End Date Soila Joseph MD PCP - General Family Medicine 10/20/22
--- OUTSIDE RECORDS SUMMARY | 2025-06-23 11:48 | XMS_ITS | Encounter Summary ---
Author Organization [employer] [facility] tem Address [id number] [address] [place] [address] Care Team Providers Care Sld Educational Aide Name Role Phone Soila Joseph MD Primary Care Provider [phone] Encounter Details Date Type Department Care Team (Late st Contact Info) Description 12/09/2020 Orders Only [facility] [address] [place] [address] Vicki Harrell MA BOYD (dyspnea on exertion) [...] abnormality documented in this encounter Care Teams Sld Educational Aide Relationship Specialty Start Date End Date Soila Joseph MD [address] [place] [address] PCP - General Family Medicine 11/18/20 documented as of this encounter
--- OUTSIDE RECORDS SUMMARY | 2025-06-23 11:48 | XMS_ITS | Encounter Summary ---
Author Organization [employer] tem Address [id number] [address] [place] [address] Care Team Providers Care City Secretary Name Role Phone Soila Joseph MD Primary Care Provider [phone] Encounter Details Date Type Department Care Team (Late st Contact Info) Description 11/22/2020 Orders Only [facility] [address] [place] [id number] External, Scanning Provider Social History Tobacco Use [...] on filedocumented in this encounter Care Teams City Secretary Relationship Specialty Start Date End Date Soila Joseph MD [address] [place] [address] PCP - General Family Medicine 11/18/20 documented as of this encounter
--- OUTSIDE RECORDS SUMMARY | 2025-06-23 11:48 | XMS_ITS | Patient Health Record ---
Author Organization [facility] Address [address] [place], [place] [address] Support Name Relationship Address Phone Kimberley, Brad Emergency Contact [address] [place], [place] [address] Kia Chu Guarantor Unknown [phone] Allergies Allergen (clinical drug ingredient) Drug/Non Drug [...] Amoxicillin 500 MG 4 capsule Orally 1 hour prior to dental treatment; Duration: 1 days 01/30/2022 Not-Taking CeleBREX 200 MG 1 capsule with food Orally Once a day Active Ibuprofen 800 MG 1 tablet with food Orally Three times a day; Duration: 7 days 10/19/2021 Not-Taking Omeprazole 20 MG 1 capsule 30 minutes before morning meal Orally Once a day Active Probiotic 1-250 BILLION-MG as directed Orally Active Ozempic Active Metamucil Not-Taking Bentyl Not-Taking Creon [address] UNIT Oral; Duration: 30 Days Active Lomotil Unknown Bentyl 20 MG 1 tablet Orally Thre e times a day; Duration: 30 day(s) 11/07/2022 Active Linzess 72 MCG Oral; Duration: 30 Days Not-Taking Methocarbamol 750 MG 1 tablet Orally zack ry 4 hrs; Duration: 30 day(s) 11/07/2022 Active prednisoLONE Acetate 1 % Ophthalmic; Dur ation: 21 Days Not-Taking Levothyroxine Sodium Active Amoxicillin 500 MG 4 capsule Orally 1 hour prior to dental treatment; Duration: 1 days 03/16/2022 Not-Taking metFORMIN HCl Active Zolpidem Tartrate 10 MG Oral; Duration: 30 Days Not-Taking Magnesium Malate Act ag Ozempic (0.25 or 0.5 MG/DOSE) 2 MG/1.5ML Subcutaneous; Duration: 42 Days Not-Taking Multi Vitamin Active Vitamin D-3 Active Penicillin V Potassium 500 MG 1 tablet Orally 4 times a day; Duration: 7 day(s) 10/19/2021 Not-Taking Actos Not-Taking Amoxicillin 500 MG 4 capsules Orally 1 hour prior to dental treatment; Duration: 1 day 10/12/2021 Not-Taking Vitamin C Active Amoxicillin 500 MG 1 capsule Orally Thr ee times a day; Duration: 7 day(s) 10/12/2021 Not-Taking Zinc Picolinate Acti ve Diclofenac Sodium No t-Taking Vitamin B Complex Ac tive Baclofen Not-Taking Stool Softener Activ e oxyBUTYnin Not-Takin g oxyBUTYnin Chloride ER 5 MG 1 tablet Orally Once a day; Duration: 30 days 07/18/2023 Active Lunesta Active Doxepin [...] W/U Status Risk Notes Problem 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 Problem Lower urinary tract infectious disease (disorder) (4984950) UTI (lower urinary tract infection) (N39.0) Active confirmed Problem Depression screening (292069407) Screening for depression (Z13.31) Active confirmed Description:De pression screen Problem Gynecological examination normal (347790617301024 ) Well female exam with routine gynecological exam (Z01.419) Active confirmed Comment:pt does breast exams, taking calcium and vitamin D last pap of vaginal cuff done 2011 declines std testing annual mammograms pt to followup with pcp for annual exam and bloodwork,Desc ription:Well woman exam with routine gynecological exam Problem Hypothyroidism (01284977) Hypothyroidism (E03.9) Active confirmed Problem Gynecological examination normal (338593856995434 ) Well woman exam with routine gynecological [...] protection to prevent STD's., Problem Pityriasis versicolor (15011332) Chromophytosis (B36.0) Active confirmed Comment:untann ed lesions seen on chest, neck and back,Descripti on:Tinea versicolor Problem History of hysterectomy (901160478) History of hysterectomy (Z90.710) Active confirmed Problem Diarrhea (40343499) Diarrhea (R19.7) Active confirmed Comment: pt has been on doxephin started by colonoscopy surgeon Dr. Dotson, pt is in process of transitioning pcp, will give enough to last until appointment, no more refills, Problem Screening for malignant neoplasm of cervix (060370724) Cervical cancer screening (Z12.4) Active confirmed Problem Mixed incontinence (865786955) Mixed incontinence urge and stress (788.33) (788.33) [...] of uncertain significance, probably benign (morphologic abnormality) (805793762) ASCUS favor benign (796.9) Active confirmed Comment:hpv neg, repeat in 1 year, Problem Vaginal dryness (92579152) Vaginal dryness, menopausal (N95.1) Active confirmed Comment:pt to use replens, coconut oil, Problem Screening for malignant neoplasm of breast (513860661) Breast cancer screening by mammogram (Z12.31) Active confirmed Problem Human papilloma virus screening (536601497) Screening for HPV (human papillomavirus) (Z11.51) Active confirmed Problem Lichen planus (8025002) Lichen planus (L43.9) Active confirmed Comment:suspec penelope, rash all over body, areas that arent tanned are worse, Problem Localized superficial swelling of skin (984735001) Axillary lump (782.2) (782.2) Active confirmed Comment:pt feels lump in right axilla. May be ingrown hair, similar lump palpated in other armpit, may be muscular. Pt had normal mammogram this year. Will obtain ultrasound of area., Problem Bladder cystocele (560367536) Bladder cystocele (618.01) Active confirmed Comment:2nd degree,Story:h istory of bladder suspension with hysterectomy,D escription:Cys tocele Plan Of Treatment No Information Insurance Providers Payer Name Payer Address Payer Phone Subscriber Number Group Number Insured Name Patient Relationship to Insured Coverage Start Date Coverage End Date Aetna Medicare [address] [place] [address] [id number] Kimberley Kia Self - patient is the insured 2 [employer]etna [facility] [address] [place] [address] [id number] [place] Kia Self - patient is the insured 1 Medical (General) History Medical History History ICD Code Anxiety Bursitis, COMMENTS: lower back Depression Hypothyroidism Irritable bowel syndrome Lumbar Spine Disease Lyme disease, COMMENTS: DX in September 29 13 Osteoarthritis Spondylosis Surgical History Surgery Date(Month/Year) Carpal [...]
--- OUTSIDE RECORDS SUMMARY | 2025-06-23 11:49 | XMS_ITS | Encounter Summary ---
Author Organization [employer] s tem Address [facility] [place]-[id number] [address] [place] [address] Care Team Providers Care Company Marker Name Role Phone Soila Joseph MD Primary Care Provider [phone] Encounter Details Date Type Department Care Team (Late st Contact Info) Description 11/02/2020 Orders Only [facility] [address] [place] [id number] External, Scanning Provider Social History Tobacco Use [...] on filedocumented in this encounter Care Teams Company Marker Relationship Specialty Start Date End Date Soila Joseph MD [address] [place] [address] PCP - General Family Medicine 11/18/20 documented as of this encounter
--- OUTSIDE RECORDS SUMMARY | 2025-06-23 11:49 | XMS_ITS | Encounter Summary ---
Author Organization [facility] [employer] s tem Address [facility] [id number] [address] [place] [address] Care Team Providers Care Electronics Mechanic Name Role Phone Soila Joseph MD Primary Care Provider [phone] Encounter Details Date Type Department Care Team (Late st Contact Info) Description 10/28/2020 Orders Only [facility] [address] [place] [phone] External, Scanning Provider Social History Tobacco Use [...] on filedocumented in this encounter Care Teams Electronics Mechanic Relationship Specialty Start Date End Date Soila Joseph MD [address] [place] [address] PCP - General Family Medicine 11/18/20 documented as of this encounter
--- OUTSIDE RECORDS SUMMARY | 2025-06-23 11:49 | XMS_ITS | Encounter Summary ---
Author Organization [employer] s tem Address [facility] [id number] [address] [place] [address] Care Team Providers Care Printed Forms Proofreader Name Role Phone Soila Joseph MD Primary Care Provider [phone] Encounter Details Date Type Department Care Team (Late st Contact Info) Description 12/09/2020 Orders Only [facility] [address] [place] [phone] External, Scanning Provider Social History Tobacco Use [...] on filedocumented in this encounter Care Teams Printed Forms Proofreader Relationship Specialty Start Date End Date Soila Joseph MD [address] [place] [address] PCP - General Family Medicine 11/18/20 documented as of this encounter
--- OUTSIDE RECORDS SUMMARY | 2025-06-23 11:49 | XMS_ITS | Encounter Summary ---
Author Organization [employer] [facility] tem Address [facility] [place]-[id number] [address] [place] [address] Care Team Providers Care Fish Hatchery Man Name Role Phone Soila Joseph MD Primary Care Provider [phone] Reason for Visit * Reason Comments Med Refill Encounter Details Date Type Department Care Team (Late st Contact Info) Description 02/21/2018 Refill [facility] [address] [place] [id number] Jerrod Juan PA [address] [facility] [place] [address] Social History Tobacco Use Types Packs/Day Years [...] on filedocumented in this encounter Care Teams Fish Hatchery Man Relationship Specialty Start Date End Date Soila Joseph MD [address] [place] [address] PCP - General Family Medicine 11/18/20 documented as of this encounter
--- OUTSIDE RECORDS SUMMARY | 2025-06-23 11:49 | XMS_ITS | CCD ---
Author Organization [facility] CliniSymi Care Team Providers Care Crm Solution Architect Name Role Phone Netta Montoya Unavailable Siva [...] LINDSAY, DR NETTA Conti Primary Care Unavailable FEILPA, DR MARROQUIN Consulting Unavailable LINDSAY, DR NETTA [...] Unavailable Montoya Netta LEVIN Primary Care Provider [phone] MD Siva Ron Attending Provider [phone] MD Netta Montoya Primary Care Provider MD Cara Leo Attending Provider [phone] NETTA MONTOYA Primary Care Unavailable SAGAR KRAUSE [...] Miguel A JOHN, Jb Giles Attending Provider bJ Grady Admitting Unavailable Jb Grady Attending Unavailable [...] Netta Montoya MD Primary Care Unava ilable Slike LEVIN, Andtasha Nova Attending Unavailable Netta Montoya MD Primary Care Unava ilable Silke LEVIN, Chinmayrius Nova Attending Unavailable Netta Montoya MD Primary Care Unava ilable Silke LEVIN, Chandra Nova Attending Unavailable Netta Montoya MD Primary Care Unava ilable Andrew Berg Primary Care Provider Kennroya Daniel Oropeza Unavailable Netta Montoya MD Primary Care Provider Netta Montoya MD Attending Provider Jb Grady APRN Attending Provider Twan Diaz MD Unavailable Robbi Escudero MD Unavailable NONE, NONE Unavailable Unavailable Wanda Fonseca MD Attending Provider Suzanne Madrigal DO Attending Provider Allergies Allergy Classification Reported Allergen(s) Allergy Type Date of Onset Reaction(s) Facility (20 sources) milnacipran; Translations: [Savella] Drug Allergy 09-02-20 13 SEVERE HEADACHES [facility] Repository (20 sources) Morphine; Translations: [MORPHINE] Drug Allergy 11-19-19 21 Unknown, [facility] Repository (20 sources) tiZANidine; Translations: [Zanaflex] Drug Allergy 09-02-20 13 hallucinations [facility] Repository (20 sources) milnacipran; Translations: [MILNACIPRAN] Drug Allergy 02-10-20 17 Headache [facility] (20 sources) tiZANidine; Translations: [TIZANIDINE] Drug Allergy 02-10-20 17 Hallucination [facility] (2 sources) Morphine Drug Allergy [facility] Repository (20 sources) Vancomycin Drug Allergy 01-30-20 23 [facility] (7 sources) Allergies Reconciled Propensity to adverse reactions Unknown Phloronol [facility] [employer] Other (7 sources) Savella *PSYCHOTHERAPEU TIC AND NEUROLOGICAL AGENTS Propensity to adverse reactions Unknown Phloronol [facility] [employer] Other (9 sources) Savella *PSYCHOTHERAPEU TIC AND Allergy to substance 10-24-19 24 [facility] Comment on above: Free Text Allergy: S avella *PSYCHOTHERAPEUTIC AND NEUROLOGICAL AGENTS (1 source) ALLERGIES NOT ON FILE; Translations: [ALLERGIES NOT ON FILE] Propensity to adverse reactions (disorder) [facility] Repository (1 source) tiZANidine Drug Allergy 10-11-19 16 Other: See Comments [facility] (1 source) SARELLA Food allergy (disorder) 04-07-20 25 hallucinations [facility] Medications Current Medications Medication Drug [...] (1 source) ALOE CAPE MISC Active amylase 235244 unt / lipase 73048 unt / protease [id number] unt delayed release oral capsule (19 sources) Start: 01-16-2024 take 2 capsules by mouth three times daily at mealtime, then take 1 capsule by mouth four times daily Start: 01-25-2023 take 2 capsules by m out three times daily at mealtime, then take 1 capsule by mouth four times daily Creon [id number] UNIT 2 capsules three times a day with meals and 1 capsule with a snack Orally four times a day for 30 days PLEASE CHECK ALLERGIES January, Active take 1 capsule by [facility] once daily Creon 36,000 unit-114,000 unit-180,000 unit capsule,delayed release 1 capsule by mouth once a day active Laura Rodríguez AT [facility] ascorbic acid 1000 mg oral tablet (16 [...] 10 mg oral tablet (2 sources) Biotin 13377 MCG tablet Take by mouth. 0 Active Calcium (15 sources) Phosphate Binder, Calcium Calcium + D Active CALCIUM 600/VITAMIN D (CALCIUM CARB-CHOLECALCIFEROL) 600-10 MG-MCG CHEW (1 source) take 1 tablet by mouth once daily Calcium 600 with Vitamin D3 600 mg-10 mcg (400 unit) chewable tablet 1 tablet by mouth once a day as directed active Laura Rodríguez AT [facility] Calcium Carb-Cholecalciferol (CALCIUM + D3 PO) (7 [...] Take by mouth. Active Cholecalciferol 250 MCG (46175 UT) capsule capsule Take by mouth daily. Active Cholecalciferol 250 MCG (42623 UT) capsule capsule Take by mouth. 0 [...] 17, 2024 3:33pm take 1 capsule by [facility] every eight hours Dicyclomine HCl 10 MG 1 capsules Orally Three times a day Active take 1 tablet by [facility] every six hours Dicyclomine 20 MG tablet Take 1 tablet by mouth every 6 hours. 0 Active docusate sodium 100 mg oral capsule (20 sources) Start: 04-21-2024 End: 04-21-2024 take 1 capsule by mouth once daily Start: 01-29-2023 take 1 capsule by [facility] twice daily Docusate 100 MG capsule Take 1 capsule by mouth 2 times daily. 60 capsule 01/29/2023 Active take 1 capsule by [facility] twice daily Docusate (Stool Softener) 100 MG capsule Take 1 capsule by mouth 2 times daily. 0 Active estrogens, conjugated (nursing home) 0.625 mg/ml vaginal cream (5 sources) [...] Insulin 100 unit/mL subcutaneous active Chetkalee Banks [address] Iodine (6 sources) IODINE ORAL Take [...] by Nasal route once for 1 dose. Goff into the nose as directed. Call 911. If no response in 2 minutes use a new nasal spray in other nostril. Repeat until help arrives. 1 Each 01/29/2023 Active [place] 3 (5 sources) [place] 3 Active omeprazole 40 mg delayed release [...] daily. Active take 1 capsule by mo [facility] once daily Omeprazole 10 MG 1 capsule [...] 21, 2024 11:00am take 1 tablet by [facility] three times daily as needed [...] 2 MG/1.5ML as directed Subcutaneous Active Pancrelipase, Wgh-Dyvo-Kkfs, (CREON PO) (7 sources) take 1 tablet by mouth once daily Pancrelipase, Kkk-Zrvf-Dthn, (CREON PO) Take 36,000 Units by mouth. 2 tablet by mouth with each meal, 1 tablet by mouth with 1 snack daily Active take 1 tablet by mouth once alannah y Pancrelipase, Flz-Bvad-Bomh, (CREON PO) Take 36,000 Units by mouth. [...] day as directed active Laura Rodríguez AT [facility] Robaxin-750 (5 sources) Robaxin-750 Acti ve Saccharomyces Boulardii (4 sources) Start: 04-21-2024 take 10 capsules by mouth once daily Start: 04-21-2024 take 10 capsules by mouth once daily Saccharomyces Boulardii (Resistance Formula Probiotic) 10 billion cell capsule Active 50258 MMU CELLS PO Daily April 21, 2024 12:00am Complies with drug therapy Saccharomyces Boulardii (Resistance Formula Probiotic) 10 billion cell capsule (5 sources) Start: 04-21-2024 take 10 capsules by mouth once daily Saccharomyces Boulardii (Resistance Formula Probiotic) 10 billion cell capsule Active 52735 MMU CELLS PO Daily April 21, 2024 12:00am Start: 04-21-2024 take 10 capsules by mouth once daily Saccharomyces Boulardii (Resistance Formula Probiotic) 10 billion cell capsule Active 73222 MMU CELLS PO Daily April 20, 2024 [...] A ctive SUPER B-50 B COMPLEX (B [id number]-[id number]-UB) CAPS (1 source) take 1 capsule by mo uth once daily Super B-50 Complex 400 mcg-20 mg-50 mg capsule 1 capsule by mouth once a day as directed active Laura Rodríguez AT [facility] thyroid (nursing home) 65 mg oral tablet (6 sources) take [...] mouth once a day active Chet Banks [address] turmeric extract 500 mg oral capsule [...] day as directed active Laura Rodríguez AT [facility] zolpidem tartrate 10 mg oral tablet (3 [...] once a day active Laura Rodríguez AT [facility] Completed/Discontinued Medications Medication Drug Class(es) Dates Sig [...] mg/ml oral solution (9 sources) Phenothiazine, Uncompetitive P-okedun-B-aspartat e Receptor Antagonist, Sigma-1 Agonist Start: 01-23-2024 [...] Provider: Lindsay Conti take 1 tablet by [facility] every twenty-four hours Levothyroxine Sodium [...] 10:37am Start: 01-18-2023 take 4 tablets by [facility] every twenty-four hours Mesalamine 1.2 GM 4 tablets Orally Once a day for 30 days January, Active Start: 01-18-2023 take 4 tablets by 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; Translations: [OTH DETENTION CURRENT DRUG THERAPY] Onset: 3 Episodic Other [...] data Narrativeon 04-07-2025 Fall risk assessment yes [employer] Work Phone: MEDS REVIEW Documentation of current medications (procedure) [employer] Work Phone: MEDS REVIEWD Medications reviewed with [employer] Work Phone: XRAY HX of the left knee on 04/07/2025 at [employer] Work Phone: Fall risk assessment no [employer] Work Phone: MEDS REVIEW Documentation of current medications (procedure) [employer] Work Phone: MEDS REVIEWD Medications reviewed with [employer] Work Phone: Estimated glomerular filtrat ion rate (GFR) non- AmericanOrdered By: Netta Montoya on 03-19-2025 GFR/1.73 sq M.predicted among non-blacks MDRD (S/P/Bld) [Vol rate/Area] mL/min/{1.73_m2} >=60 mL/min/1.73m 2 [facility] Glucose mean value [Mass/vol ume] in Blood Estimated from glycated hemoglobinOrdered By: Netta Montoya on 03-19-2025 Average glucose Estimated from glycated hemoglobin (Bld) [Mass/Vol] 131 mg/dL [facility] Hemoglobin A1c percentageOrd ered By: Netta Montoya on 03-19-2025 HbA1c (Bld) [Mass fraction] 6.2 % 4.5-6.2 [facility] Comment on above: ADA RECOMMENDED LIMI T 4.0 - 6.0ADA THERAPEUTIC TARGET < 7.0ACTION SUGGESTED> 7.0 Laboratory - Chemistry and C hemistry - challengeOrdered By: Netta Montoya on 03-19-2025 Calcium [Mass/Vol] 9.7 mg/dL 8.5-10.1 [facility] Chloride [Moles/Vol] 103 mmol/L 98-107 [facility] CO2 [Moles/Vol] 27.3 mmol/L 21.0-32.0 [facility] Creatinine [Mass/Vol] 0.76 mg/dL 0.55-1.02 [facility] GFR/1.73 sq M.predicted MDRD (S/P/Bld) [Vol rate/Area] mL/min/{1.73_m2} >=60 mL/min/1.73m 2 [facility] Glucose [Mass/Vol] 164 mg/dL High 74-106 [facility] Potassium [Moles/Vol] 4.1 mmol/L 3.5-5.1 [facility] Sodium [Moles/Vol] 140 mmol/L 136-145 [facility] Urea nitrogen [Mass/Vol] 16.0 mg/dL 7.0-18.0 [facility] Urea nitrogen/Creatinine [Mass ratio] 21.1 mg/mg [facility] Microalbumin [Mass/volume] i n UrineOrdered By: Netta Montoya on 03-19-2025 Albumin DL <= 20 mg/L (U) [Mass/Vol] mg/dL <=30.0 [facility] No Panel InformationOrdered By: Netta Montoya on 03-19-2025 Urine Random Creatinine 63.02 mg/dL 20.00-300.0 0 [facility] Serum or plasma anion gap de terminationOrdered By: Netta Montoya on 03-19-2025 Anion gap [Moles/Vol] 13.8 mmol/L [facility] 3602-03-2025 36 [facility] re ps notified. Normal [facility] 3601-29-2025 36 Patient called back, appt scheduled for 03/31/2025 at 1030. 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 Copies to: Jb Grady APRN~ Ordering Provider: [...] DO 12/26/24 1342 Signed By: 12/26/24 1342 [facility] XR KUBon 12-26-2024 XR KUB [facility] [place] [address] XRay Report Signed Patient: Emily Macias MR#: [id number] : 1960 Acct:[id number] Age/Sex: 64 / F ADM Date: 12/26/24 Loc: XD Room: Type: [facility] CLI Attending Dr: Jb Grady APRN Copies [...] 1342 Signed By: 12/26/24 1342 Normal [facility] Basophils Auto (Bld) [#/Vol] on 11-10-2024 Basophils (Bld) [#/Vol] Automated basoph il count 0.0-0.1 [facility] Basophils/100 WBC Auto (Bld) on 11-10-2024 Basophils/100 WBC (Bld) Automated basophil % 0. 2-2.0 [facility] Eosinophils/100 WBC Auto (Bl d)on 11-10-2024 Eosinophils/100 WBC (Bld) Automated eosinophil % 0.9-7.0 [facility] Erythrocyte distribution wid th Auto (RBC) [Ratio]on 11-10-2024 Erythrocyte distribution width (RBC) [Ratio] Erythrocyte distribution width [Ratio] by Automated count 11.0-15.0 [facility] Estimated glomerular filtrat ion rate (GFR) non- Americanon 11-10-2024 GFR/1.73 sq M.predicted among non-blacks MDRD (S/P/Bld) [Vol rate/Area] Estimated glomerular filtration rate (GFR) non- >=60 mL/min/1.73m 2 [facility] Globulin Calc (S) [Mass/Vol] on 11-10-2024 Globulin (S) [Mass/Vol] Serum globulin measurement by calculation (mass/volume) [facility] Hematocrit Auto (Bld) [Volum e fraction]on 11-10-2024 Hematocrit (Bld) [Volume fraction] Hematocrit [Volume Fraction] of Blood by Automated count 36.0-48.0 [facility] Hemoglobin [Mass/volume] in Bloodon 11-10-2024 Hemoglobin (Bld) [Mass/Vol] Hemoglobin [Mass/volume] in Blood 12.0-16.0 [facility] Laboratory - Chemistry and C hemistry - challengeon 11-10-2024 Albumin [Mass/Vol] 3.7 g/dL 3.4-5.0 [facility] ALP [Catalytic activity/Vol] 81 U/L 46-116 [facility] ALT [Catalytic activity/Vol] 23 U/L 14-59 [facility] AST [Catalytic activity/Vol] 18 U/L 15-37 [facility] Bilirubin [Mass/Vol] 0.3 mg/dL 0.2-1.0 [facility] Calcium [Mass/Vol] 9.6 mg/dL 8.5-10.1 [facility] Chloride [Moles/Vol] 105 mmol/L 98-107 [facility] CO2 [Moles/Vol] 30.0 mmol/L 21.0-32.0 [facility] Creatinine [Mass/Vol] 0.80 mg/dL 0.55-1.02 [facility] GFR/1.73 sq M.predicted MDRD (S/P/Bld) [Vol rate/Area] mL/min/{1.73_m2} >=60 mL/min/1.73m 2 [facility] Glucose [Mass/Vol] 110 mg/dL High 74-106 [facility] Potassium [Moles/Vol] 4.9 mmol/L 3.5-5.1 [facility] Protein [Mass/Vol] 7.1 g/dL 6.4-8.2 [facility] Sodium [Moles/Vol] 144 mmol/L 136-145 [facility] Urea nitrogen [Mass/Vol] 21.0 mg/dL High 7.0-18.0 [facility] Urea nitrogen/Creatinine [Mass ratio] 26.3 mg/mg [facility] Laboratory - Hematology and Cell countson 11-10-2024 Immature granulocytes/100 WBC (Bld) 0.3 % 0.0-0.5 [facility] Leukocytes [#/volume] correc penelope for nucleated erythrocytes in Blood by Automated counon 11-10-2024 WBC corrected for nucl RBC Auto (Bld) [#/Vol] Leukocytes [#/volume] corrected for nucleated erythrocytes in Blood by Automated coun 4.0-11.0 [facility] Lymphocytes Auto (Bld) [#/Vo l]on 11-10-2024 Lymphocytes (Bld) [#/Vol] Lymphocytes [#/volume] in Blood by Automated count 1.2-3.8 [facility] Lymphocytes/100 WBC Auto (Bl d)on 11-10-2024 Lymphocytes/100 WBC (Bld) Lymphocytes/100 leukocytes in Blood by Automated count 20.5-60.0 [facility] MCH Auto (RBC) [Entitic mass ]on 11-10-2024 MCH (RBC) [Entitic mass] MCH [Entitic mass] by Automated count 26.7-34.0 [facility] MCHC Auto (RBC) [Mass/Vol]on 11-10-2024 MCHC (RBC) [Mass/Vol] MCHC [Mass/volume] by Automated count 29.9-35.2 [facility] MCV Auto (RBC) [Entitic vol] on 11-10-2024 MCV (RBC) [Entitic vol] MCV [Entitic vol ume] by Automated count 81.0-99.0 [facility] Monocytes Auto (Bld) [#/Vol] on 11-10-2024 Monocytes (Bld) [#/Vol] Automated blood monocyte count 0.3-0.8 [facility] Monocytes/100 WBC Auto (Bld) on 11-10-2024 Monocytes/100 WBC (Bld) Automated monocyte % 1. 7-12.0 [facility] Neutrophils Auto (Bld) [#/Vo l]on 11-10-2024 Neutrophils (Bld) [#/Vol] Neutrophils [#/volume] in Blood by Automated count 1.4-6.5 [facility] Neutrophils/100 WBC Auto (Bl d)on 11-10-2024 Neutrophils/100 WBC (Bld) Automated neutrophil % 43.0-75.0 [facility] No Panel Informationon 11-10 Eosinophils # (Auto) 0.2 10 3/uL 0.0-0.7 [facility] Immature Granulocyte # (Auto) 0.02 10 3/uL 0.00-0.03 [facility] Platelet mean volume Auto (B ld) [Entitic vol]on 11-10-2024 Platelet mean volume (Bld) [Entitic vol] Platelet mean volume [Entitic volume] in Blood by Automated count 9.5-13.5 [facility] Platelets Auto (Bld) [#/Vol] on 11-10-2024 Platelets (Bld) [#/Vol] Platelets [#/vol ume] in Blood by Automated count 150-450 [facility] RBC Auto (Bld) [#/Vol]on RBC (Bld) [#/Vol] Erythrocytes [#/volume] in Blood by Automated count 4.20-5.40 [facility] Serum or plasma albumin/glob ulin mass ratioon 11-10-2024 Albumin/Globulin [Mass ratio] Serum or plasma albumin/globulin mass ratio [facility] Serum or plasma anion gap de terminationon 11-10-2024 Anion gap [Moles/Vol] Serum or plasma an ion gap determination [facility] Campy coli+jejuni BD MaxOrde red By: Jb Grady on 09-30-2024 C. coli+jejuni tuf gene DAISY+probe Ql (Stl) Campy coli+jejuni BD Max Negative [facility] Comment on above: Campylobacter test i ncludes C. jejuni and C. coli. Clostridioides difficile tox in B tcdB gene [Presence] in Stool by DAISY with probe deteOrdered By: Jb Grady on 09-30-2024 C. difficile toxin B tcdB gene DAISY+probe Ql (Stl) Clostridioides difficile toxin B tcdB gene [Presence] in Stool by DAISY with probe dete Negative [facility] Comment on above: Testing performed by RT-PCR Clostridium Difficileon 09-11 Clostridium Difficile Negative Normal Negative [facility] Comment on above: Result Comment: Test ing performed by RT-PCR PERFORMED BY: [place] [address] PATHOLOGIST TRIMMER SORTER BENNY ARAUJO M.D. Performed By: #### S TCYRPTOAG, GIARDIA #### [facility] , #### CDT, ENT BACT PANEL #### [facility] [address] [place] [address] Cryptosporidium Antigen Stoo kristofer 09-30-2024 Cryptosporidium Antigen Stool Negative Normal Negative [facility] Comment on above: Order Comment: SOURC E OF SPECIMEN: STOOL Performed By: #### S TCYRPTOAG, GIARDIA #### [facility] , #### CDT, ENT BACT PANEL #### [facility] [address] Cryptosporidium sp Ag [Prese nce] in Stool by ImmunoassayOrdered By: Jb Grady on 09-30-2024 Cryptosporidium sp Ag IA Ql (Stl) Cryptosporidium sp Ag [Presence] in Stool by Immunoassay Negative [facility] Giardia Lamblia Ag EIA Stool on 09-30-2024 Giardia Lamblia Ag EIA Stool Negative Normal Negative [facility] Comment on above: Order Comment: SOURC E OF SPECIMEN: STOOL Result Comment: Perf ormed at: CB - [facility] [place] [id number] [place], [place] [id number] Oil Scout: Tra Bay PhD, Phone: [phone] PERFORMED BY: [place] [address] PATHOLOGIST TRIMMER SORTER BENNY ARAUJO M.D. Performed By: #### S TCYRPTOAG, GIARDIA #### [facility] , #### CDT, ENT BACT PANEL #### [facility] [address] [place] [address] Giardia lamblia Ag [Presence ] in Stool by ImmunoassayOrdered By: Jb Grady on 09-30-2024 G. lamblia Ag IA Ql (Stl) Giardia lamblia Ag [Presence] in Stool by Immunoassay Negative [facility] Comment on above: Performed at: [employer] [facility] [address] [id number] Director: Tra [place] PhD, Phone: [phone] Salmonellosis BD MaxOrdered By: Jb Grady on 09-30-2024 Salmonella sp spaO gene DAISY+probe Ql (Stl) Salmonella sp spaO gene [Presence] in Stool by DAISY with probe detection Negative [facility] Comment on above: Testing performed by RT-PCR Shigella Tox 1+2 BD MaxOrder ed By: Jb Grady on 09-30-2024 E. coli stx1+stx2 genes DAISY+probe Ql (Stl) Escherichia coli Stx1 and Stx2 toxin stx1+stx2 genes [Presence] in Stool by DAISY with Negative [facility] Shigellosis BD MaxOrdered By : Jb Grady on 09-30-2024 Shigella species+EIEC invasion plasmid antigen H ipaH gene DAISY+probe Ql (Stl) Shigella species+EIEC invasion plasmid antigen H ipaH gene [Presence] in Stool by DAISY Negative [facility] Comment on above: Shigella sp. test in cludes Shigella species and Enteroinvasive E. coli (EIEC). Stool Bacterial Panelon 09-11 Campylobacter Negative Normal Negative [facility] Comment on above: Result Comment: Camp ylobacter test includes C. jejuni and C. coli. Performed By: #### S TCYRPTOAG, GIARDIA #### [facility] , #### CDT, ENT BACT PANEL #### [address] Salmonella Species Negative Normal Negative [facility] Comment on above: Result Comment: Test ing performed by RT-PCR PERFORMED BY: [place] [address] PATHOLOGIST TRIMMER SORTER BENNY ARAUJO M.D. Performed By: #### S TCYRPTOAG, GIARDIA #### [facility] , #### CDT, ENT BACT PANEL #### [address] Shiga Toxin (E coli O157+oth) Negative Normal Negative [facility] Comment on above: Performed By: #### S TCYRPTOAG, GIARDIA #### [facility] , #### CDT, ENT BACT PANEL #### [address] Shigella Species Negative Normal Negative [facility] Comment on above: Result Comment: Shig brandy sp. test includes Shigella species and Enteroinvasive E. coli (EIEC). Performed By: #### S TCYRPTOAG, GIARDIA #### [facility] , #### CDT, ENT BACT PANEL #### [place] [address] [place] 36on 09-18-2024 36 LVM for pt to call clinic to schedule consult with Dr. Mccord for Surgical intervention vs SCS. Please let gag writer or Nayana Crenshaw MA know when scheduled so we may notify [employer] reps. Normal [facility] Telephoneon 09-18-2024 Telephone [phone] Emily Macias 1960 F Date Provider Department Center 09/18/2024 [facility] SURG Second Fl No family history on file Reason for Visit and Comments: REFERRAL CONSULT [Other] Normal [facility] XR KUBon 08-29-2024 XR KUB [facility] Main [place] [address] [place] [id number] XRay Report Signed Patient: Emily Macias MR#: [id number] : 1960 Acct:[id number] Age/Sex: 63 / F ADM Date: 08/29/24 Loc: XD Room: Type: [facility] Attending Dr: Jb Grady OIL HEAT TECHNICIAN Copies to: Jb Grady APRN Ordering Provider: [...] Sims Jr., D.OMonalisa08/29/2024 3:27 PM Dictation Location: [place] [address] Transcribed By: [facility] 08/29/24 1527 Dictated By: Bar Sims Jr, DO 08/29/24 1526 Signed By: 08/29/24 1527 Normal [facility] HbA1c HPLC (Bld) [Mass fract ion]on 07-29-2024 HbA1c (Bld) [Mass fraction] Hemoglobin A1c/Hemoglobin.total in Blood by HPLC [facility] Estimated glomerular filtrat ion rate (GFR) non- Americanon 07-17-2024 GFR/1.73 sq M.predicted among non-blacks MDRD (S/P/Bld) [Vol rate/Area] Estimated glomerular filtration rate (GFR) non- >=60 mL/min/1.73m 2 [facility] Globulin Calc (S) [Mass/Vol] on 07-17-2024 Globulin (S) [Mass/Vol] Serum globulin measurement by calculation (mass/volume) [facility] Iron binding capacity [Mass/ volume] in Serum or Plasmaon 07-17-2024 Iron binding capacity [Mass/Vol] Iron binding capacity [Mass/volume] in Serum or Plasma 250.0-450.0 [facility] Iron saturation [Mass Fracti on] in Serum or Plasmaon 07-17-2024 Iron saturation [Mass fraction] Iron saturation [Mass Fraction] in Serum or Plasma [facility] Laboratory - Chemistry and C hemistry - challengeon 07-17-2024 Albumin [Mass/Vol] 3.8 g/dL 3.4-5.0 [facility] ALP [Catalytic activity/Vol] 81 U/L 46-116 [facility] ALT [Catalytic activity/Vol] 21 U/L 14-59 [facility] AST [Catalytic activity/Vol] 18 U/L 15-37 [facility] Bilirubin [Mass/Vol] 0.4 mg/dL 0.2-1.0 [facility] Calcium [Mass/Vol] 9.2 mg/dL 8.5-10.1 [facility] Chloride [Moles/Vol] 105 mmol/L 98-107 [facility] CO2 [Moles/Vol] 24.1 mmol/L 21.0-32.0 [facility] Cobalamin (Vitamin B12) [Mass/Vol] 887 pg/mL 232-1245 [facility] Comment on above: Performed at: [facility] [address] [id number] Director: Tra Bay PhD, Phone: [phone] Creatinine [Mass/Vol] 0.84 mg/dL 0.55-1.02 [facility] Ferritin [Mass/Vol] 63.0 ng/mL 8.0-252.0 [facility] Free T4 [Mass/Vol] 1.23 ng/dL 0.76-1.46 [facility] GFR/1.73 sq M.predicted MDRD (S/P/Bld) [Vol rate/Area] mL/min/{1.73_m2} >=60 mL/min/1.73m 2 [facility] Glucose [Mass/Vol] 150 mg/dL High 74-106 [facility] Iron [Mass/Vol] 63.0 ug/dL 50.0-170.0 [facility] Potassium [Moles/Vol] 4.2 mmol/L 3.5-5.1 [facility] Protein [Mass/Vol] 7.1 g/dL 6.4-8.2 [facility] Sodium [Moles/Vol] 141 mmol/L 136-145 [facility] TSH Qn 0.749 m[IU]/L 0.358-3.740 [facility] Urea nitrogen [Mass/Vol] 21.0 mg/dL High 7.0-18.0 [facility] Urea nitrogen/Creatinine [Mass ratio] 25.0 mg/mg [facility] No Panel Informationon 07-17 25-Hydroxy Vitamin D Total 80.1 ng/mL [facility] Comment on above: <20 ng/mL Vit D defi cient20-<30 ng/mL Vit D aenvkogzzeoh85-736 ng/mL Vit D sufficient>100 ng/mL Potential Toxicity Serum or plasma albumin/glob ulin mass ratioon 07-17-2024 Albumin/Globulin [Mass ratio] Serum or plasma albumin/globulin mass ratio [facility] Serum or plasma anion gap de terminationon 07-17-2024 Anion gap [Moles/Vol] Serum or plasma an ion gap determination [facility] No Panel Informationon 02-26 Radiology Study observation (narrative) [facility] LARGE JOINT/BURSA INJECTION AND/OR ASPIRATION: [...] complications The patient was prepped with Chloraprep. [facility] Sagar Krause MD 02/27/2024 1:38 PM [...] MG/ML The patient was prepped with Betadine. [facility] No Panel Informationon 02-20 [facility] Glucose Glucometer (BldC) [M ass/Vol]Ordered By: Siva Ron on 05-09-2023 Glucose [Mass/Vol] 136 mg/dL [facility] Comment on above: Random Glucose Refer ence Range is dependent on time and content of last meal. Glucose of more than 200 mg/dL in a nonstressed, ambulatory subject supports the diagnosis of Diabetes Mellitus. No Panel InformationOrdered By: Siva Ron on 05-09-2023 Bedside Glucose Comment Glu2: cleaned meter [facility] PANCREATIC ELASTASE FECALon 01-22-2023 Pancreatic Elastase, Fecal 128 ug Elast./g Critically low >200 [facility] Comment on above: Result Comment: Jihan re Pancreatic Insufficiency: <100 Moderate Pancreatic Insufficiency: 100 - 200 Normal: >200 Performed By: #### H PYLORI #### [facility] [address] [place] [address] Dr. Irene Cedillo LACTOFERRIN FECAL QUANTon Lactoferrin, Fecal, Quant. <1.00 Normal 0.00-7.24 [facility] [place] Comment on above: Result Comment: Re sults [...] (IBS). Performed By: #### S EDR #### [facility] [address] [place] [address] Dr. Irene Cedillo CALPROTECTIN, FECALon 2022 Calprotectin, Fecal 139 ug/g Critically high 0-120 [facility] [place] Comment on above: Result Comment: Conc entration Interpretation Follow-Up <16 - 50 ug/g Normal None >50 -120 ug/g Borderline Re-evaluate in 4-6 weeks >120 ug/g Abnormal Repeat as clinically indicated Performed By: #### H PYLORI #### [facility] [address] [place] [address] Dr. Irene Cedillo PANCREATIC ELASTASE FECALon 01-15-2023 Pancreatic Elastase, Fecal 161 ug Elast./g Critically low >200 [facility] [place] Comment on above: Result Comment: Jihan re Pancreatic Insufficiency: <100 Moderate Pancreatic Insufficiency: 100 - 200 Normal: >200 Performed By: #### A NTI-NICOLLE #### [facility] [address] [place] [address] Dr. Irene Cedillo TSHon 01-09-2023 TSH 1.630 uIU/mL Normal 0.358-3.740 [facility] Comment on above: Performed By: #### T SH #### [facility] [address] [place] [address] Dr. Irene Cedillo ANTIHISTIONE ANTIBODIESon Anti-histone Abs 0.5 Units Normal 0.0-0.9 [facility] Comment on above: Result Comment: Nega tive <1.0 Weak Positive 1.0 - 1.5 Moderate Positive 1.6 - 2.5 Strong Positive >2.5 Performed By: #### C K, CRP #### [facility] [address] [address] [address] Irene Cedillo LARGE JOINT/BURSA INJECTION AND/OR [...] patient was prepped with Betadine. [facility] Rad[facility] Study observation (narrative) [facility] US PELVIS AND TRANSVAGon US PELVIS AND TRANSVAG EXAM: US PELVIS A ND TRANSVAG HISTORY: Left lower quadrant pain COMPARISON: None. TECHNIQUE: Pelvic sonography was performed utilizing grayscale and color Doppler technique. FINDINGS/ IMPRESSION: 1. Hysterectomy. 2. Ovaries not visualized. 3. No adnexal mass. 4. No significant free fluid. Electronically authenticated by: BRI BERGER Date: 2022-11-10 15:54 Normal [facility] [place] LUPUS ANTICOAGULANT PROFILEo n 10-27-2022 Anticardiolipin Ab, IgG <10 Normal T [facility] Comment on above: Result Comment: Refe rence Range: Negative: <15 Indeterminate: 15 - 20 Low to medium positive: >20 - 80 High positive: >80 Performed By: #### L UPUSAC #### [facility] [address] [place] [address] Dr. Irene Cedillo Anticardiolipin Ab, IgM <10 Normal [facility] Comment on above: Result Comment: Refe rence Range: Negative: <13 Indeterminate: 13 - 20 Low to medium positive: >20 - 80 High positive: >80 Performed By: #### L UPUSAC #### [facility] [address] [place] [address] Dr. Irene Cedillo APTT 1:1 [employer] [facility] Comment on above: Result Comment: Test ing Not Indicated This test was developed and its performance characteristics determined by [facility]. It has not been cleared or approved by the [place] Food and Drug Administration. Performed By: #### L UPUSAC #### [facility] [address] [place] [address] Dr. Irene Cedillo APTT 1:1 [place] [facility] Comment on above: Result Comment: Test ing Not Indicated This test was developed and its performance characteristics determined by [facility]. It has not been cleared or approved by the [place] Food and Drug Administration. Performed By: #### L UPUSAC #### [facility] [address] [place] [address] Dr. Irene Cedillo aPTT Coag (Bld) [Time] 23.0 s Normal [facility] Comment on above: Result Comment: This test has not been validated for monitoring unfractionated heparin therapy. aPTT-based therapeutic ranges for unfractionated heparin therapy have not been established. Consider ordering Heparin anti-Xa (unfractionated). Reference Range: 18 years and older: 22.9 - 30.2 Performed By: #### L UPUSAC #### [facility] [address] [place] [address] Dr. Irene Cedillo Beta-2 Glycoprotein I, IgA <10 Normal [facility] [place] Comment on above: Result Comment: The reference interval reflects a 3SD or 99th percentile interval. Reference Range: Negative: <26 Performed By: #### L UPUSAC #### [facility] [address] [place] [address] Dr. Yilan Cedillo Beta-2 Glycoprotein I, IgG <10 Normal [facility] Comment on above: Result Comment: The reference interval reflects a 3SD or 99th percentile interval. Reference Range: Negative: <21 Performed By: #### L UPUSAC #### [facility] [address] [place] [address] Dr. Irene Cedillo Beta-2 Glycoprotein I, IgM <10 Normal [facility] Comment on above: Result Comment: The reference interval reflects a 3SD or 99th percentile interval. Reference Range: Negative: <33 Performed By: #### L UPUSAC #### [facility] [address] [place] [address] Dr. Irene Cedillo DRVVT Confirm Seconds NIY Normal [facility] [place] Comment on above: Result Comment: Test ing Not Indicated Performed By: #### L UPUSAC #### [facility] [address] [place] [address] Dr. Irene Cedillo DRVVT Ratio NIY Normal [facility] Comment on above: Result Comment: Test ing Not Indicated Performed By: #### L UPUSAC #### [facility] [address] [place] [address] Dr. Irene Cedillo DRVVT Screen Seconds 33.2 sec Normal [facility] Comment on above: Result Comment: Refe rence Range: <= 47.0 Performed By: #### L UPUSAC #### [facility] [address] [place] [address] Dr. Irene Cedillo Hexagonal Phospholipid Neutral 0 sec Normal [facility] Comment on above: Result Comment: This value is NEGATIVE. This is a qualitative assay and is therefore reported as positive for lupus anticoagulant or negative. The quantitative value is provided as an aid in diagnosis. Reference Range: 0 - 11 Performed By: #### L UPUSAC #### [facility] [address] [place] [address] Dr. Irene Cedillo INR Coag (PPP) [Relative time] 0.9 {INR} Normal [facility] [place] Comment on above: Result Comment: Refe rence Range: >1 month: 0.9 - 1.2 Performed By: #### L UPUSAC #### [facility] [address] [place] [address] Dr. Irene Cedillo LAC Interpretation Comment Normal [facility] Comment on above: Result Comment: A arelis pus anticoagulant is not detected. All antiphospholipid antibodies evaluated are normal. As antibody titers may fluctuate with time, repeat testing may be indicated. Please contact [facility] if further clarification is needed. Performed By: #### L UPUSAC #### [facility] [address] [place] [address] Dr. Irene Cedillo Platelet Neutralization 0.0 sec Normal [facility] Comment on above: Result Comment: Refe rence Range: 0.0 - 3.0 This test was developed and its performance characteristics determined by [employer]. It has not been cleared or approved by the Food and Drug Administration. Performed By: #### L UPUSAC #### [facility] [address] [place] [address] Dr. Irene Cedillo PT Coag (PPP) [Time] 10.0 s Normal [facility] [place] Comment on above: Result Comment: Refe rence Range: 18 years and older: 9.1 - 12.0 Performed By: #### L UPUSAC #### [facility] [address] [place] [address] Dr. Irene Cedillo Thrombin Time 15.5 sec Normal [facility] Comment on above: Result Comment: Refe rence Range: 0.0 - 23.0 Performed By: #### L UPUSAC #### [facility] [address] [place] [address] Dr. Irene Cedillo ADRI by IFAon 10-23-2022 Antinuclear Antibodies, IFA Positive Abnormal [facility] [place] Comment on above: Result Comment: Nega tive <1:80 Borderline 1:80 Positive >1:80 Performed By: #### T SH #### [facility] [address] [place] [address] Dr. Irene Cedillo Centriole Pattern Normal [facility] Comment on above: Performed By: #### T SH #### [facility] [address] [place] [address] Dr. Irene Cedillo Centromere Pattern Normal [facility] Comment on above: Performed By: #### T SH #### [facility] [address], [place] [address] Dr. Irene Cedillo Homogeneous Pattern 1:320 Critically high [facility] Comment on above: Result Comment: ICAP nomenclature: AC-1 Performed By: #### T SH #### [facility] [address] [place], [place] [address] Dr. Irene Cedillo Midbody Pattern Normal [facility] Comment on above: Performed By: #### T SH #### [facility] [address] [place], [place] [address] Dr. Irene Cedillo Note: Comment Normal [facility] [place] Comment on above: Result Comment: For more [...] titers Nucleosomes, Histones Drug-induced SLE Speckled Sm, FORGE HELPER, SCL-70, SLE,MCTD,PSS (diffuse form), SS-A/SS-B Sjogrens Nucleolar SCL-70, PM-1/SCL High titers Scleroderma, PM/DM Centromere Centromere PSS (limited form) w/Crest syndrome variable Nuclear Dot [id number] Primary Biliary Cirrhosis Nuclear GP210, Primary Biliary Cirrhosis Membrane margie A,B,C Performed By: #### T SH #### [facility] [address] [place] [address] Dr. Irene Cedillo Nuclear Dot Pattern Normal [facility] Comment on above: Performed By: #### T SH #### [facility] [address] [place] [address] Dr. Irene Cedillo Nuclear Membrane Pattern Normal [facility] Comment on above: Performed By: #### T SH #### [facility] [address] [place] [address] Dr. Irene Cedillo Nucleolar Pattern Normal [facility] Comment on above: Performed By: #### T SH #### [facility] [address] [place] [address] Dr. Irene Cedillo PCNA Pattern Normal [facility] Comment on above: Performed By: #### T SH #### [facility] [address] [place] [address] Dr. Irene Cedillo Speckled Pattern Normal [facility] Comment on above: Performed By: #### T SH #### [facility] [address] [place] [address] Dr. Irene Cedillo Spindle Apparatus Pattern Normal [facility] [place] Comment on above: Performed By: #### T SH #### [facility] [address] [place] [address] Dr. Irene Cedillo ALDOLASEon 10-19-2022 Aldolase 3.6 U/L Normal 3.3-10.3 [facility] [place] Comment on above: Performed By: #### T SH #### [facility] [address] [place] [address] Dr. Irene Cedillo ANTI-CENTROMERE B ABon 10-19 Anti-Centromere B Antibodies <0.2 Normal 0.0-0.9 [facility] [place] Comment on above: Performed By: #### S EDR #### [facility] [address] [place] [address] Dr. Irene Cedillo ANTI-DNA DS ABon 10-19-2022 Anti-DNA (DS) Ab Qn 1 IU/mL Normal 0-9 [facility] Comment on above: Result Comment: Nega tive <5 Equivocal 5 - 9 Positive >9 Performed By: #### C CPAB #### [facility] [address] [place] [address] Dr. Irene Cedillo ANTI-NICOLLE-1on 10-19-2022 Anti-Nicolle-1 <0.2 Normal 0.0-0.9 [facility] [place] Comment on above: Performed By: #### A NTI-NICOLLE #### [facility] [address] [place] [address] Dr. Irene Cedillo ANTICHROMATIN ANTIBODIESon 0 10-19-2022 Antichromatin Antibodies 0.5 AI Normal 0.0-0.9 [facility] [place] Comment on above: Performed By: #### C K, CRP #### [facility] [address] [place] [address] Dr. Irene Cedillo ANTIEXTRACTABLE NUCLEAR ANTI BODIESon 10-19-2022 FORGE HELPER Antibodies <0.2 Normal 0.0-0.[address] [facility] Comment on above: Performed By: #### H PYLORI #### [facility] [address] [place] [address] Dr. Irene Cedillo Performed By: #### C CPAB #### [facility] [address] [place] [address] Dr. Irene Cedillo Murray Antibodies <0.2 Normal 0.0-0.9 [facility] Comment on above: Performed By: #### H PYLORI #### [facility] [address] [place] [address] Dr. Irene Cedillo Performed By: #### C CPAB #### [facility] [address] [place] [address] Dr. Irene Cedillo ANTISCLERODERMA ABon 023 Antiscleroderma-70 Antibodies <0.2 Normal 0.0-0.9 [facility] [place] Comment on above: Performed By: #### A NSCLER #### [facility] [address] [place] [address] Dr. Irene Cedillo C3 and C4 COMPLEMENTon 10-19 Complement C3, Serum 171 mg/dL Critically high 82-167 [facility] [place] Comment on above: Performed By: #### H PYLORI #### [facility] [address] [place] [address] Dr. Irene Cedillo Complement C4, Serum 41 mg/dL Critically high 12-38 [facility] Comment on above: Performed By: #### H PYLORI #### [facility] [address] [place] [address] Dr. Irene Cedillo COMPLEMENT TOTAL (CH50)on Complement, Total (CH50) >60 Normal >41 [facility] Comment on above: Result Comment: Age [...] Performed By: #### C K, CRP #### [facility] [address] [place] [address] Dr. Irene Cedillo CYCLIC CITRULLINATED PEPTIDE AB (CCP)on 10-19-2022 CCP Antibodies IgG/IgA 3 units Normal 0-19 [facility] Comment on above: Result Comment: Nega tive <20 Weak positive 20 - 39 Moderate positive 40 - 59 Strong positive >59 Performed By: #### C CPAB #### [facility] [address] [place] [address] Dr. Irene Cedillo MITICHONDRIAL (M2) ANTIBODYo n 10-19-2022 Mitochondrial (M2) Antibody <20.0 Normal 0.0-20.0 [facility] [place] Comment on above: Result Comment: Nega tive 0.0 - 20.0 Equivocal 20.1 - 24.9 Positive >24.9 . Mitochondrial (M2) Antibodies are found in 90-96% of patients with primary biliary cirrhosis. Performed By: #### C K, CRP #### [facility] [address] [place] [address] Dr. Irene Cedillo RHEUMATOID FACTORon 10-19-19 23 RA Latex Turbid. <10.0 Normal <14.0 [facility] Comment on above: Performed By: #### C CPAB #### [facility] [address] [place] [address] Dr. Irene Cedillo RPR QUANTon 10-19-2022 Rapid Plasma Reagin, Quant Non-Reactive Normal NonRea<1:1 [facility] [place] Comment on above: Result Comment: Plea se Note: This test does not meet current guidelines for screening and diagnosis of syphilis. This test is intended for following treatment response in patients being treated for syphilis infection. To screen for syphilis infection, a reflex cascade that includes both RPR and a treponema-specific assay should be utilized, such as Treponema pallidum (Syphilis) Screening Traver (083698) or Rapid Plasma Reagin (RPR) Test With Reflex to Quantitative RPR and Confirmatory Treponema pallidum Antibodies (922542). Performed By: #### T SH #### [facility] [address] [place] [address] Dr. Irene Cedillo SJOGRENS ANTIBODIES (Anti SS A/B)on 10-19-2022 Sjogren's Anti-SS-A <0.2 Normal 0.0-0.9 [facility] Comment on above: Performed By: #### S EDR #### [facility] [address] [place] [address] Dr. Irene Cedillo Sjogren's Anti-SS-B <0.2 Normal 0.0-0.9 [facility] Comment on above: Performed By: #### S EDR #### [facility] [address] [place] [address] Dr. Irene Cedillo SMOOTH MUSCLE ANTIBODYon Actin (Smooth Muscle) Antibody 5 Units Normal 0-19 [facility] [place] Comment on above: Result Comment: Nega tive 0 - 19 Weak positive 20 - 30 Moderate to strong positive >30 . Actin Antibodies are found in 52-85% of patients with autoimmune hepatitis or chronic active hepatitis and in 22% of patients with primary biliary cirrhosis. Performed By: #### C K, CRP #### [facility] [address] [place] [address] Dr. Irene Cedillo THYROGLOBULIN ABon Thyroglobulin Antibody <1.0 Normal 0.0-0.9 [facility] Comment on above: Result Comment: Thyr oglobulin Antibody measured by DNA13 Gretel Methodology Performed By: #### C CPAB #### [facility] [address] [place] [address] Dr. Irene Cedillo THYROID PEROXIDASE ABon Thyroid Peroxidase (TPO) Ab 11 IU/mL Normal 0-34 [facility] [place] Comment on above: Performed By: #### T SH #### [facility] [address] [place] [address] Dr. Irene Cedillo CBC AUTO DIFFon 10-18-2022 BASO # 0.1 103/ul Normal 0.0-0.1 [facility] [place] Comment on above: Performed By: #### C K, CRP #### [facility] [address] [place] [address] Dr. Irene Cedillo Basophils/100 WBC (Bld) 0.7 % Normal 0.2-2.0 [facility] Comment on above: Performed By: #### C K, CRP #### [facility] [address] [place] [address] Dr. Irene Cedillo EO # 0.2 103/ul Normal 0.0-0.7 [facility] [place] Comment on above: Performed By: #### C K, CRP #### [facility] [address] [place] [address] Dr. Irene Cedillo Eosinophils/100 WBC (Bld) 2.8 % Normal 0.9-7.0 [facility] [place] Comment on above: Performed By: #### C K, CRP #### [facility] [address] [place] [address] Dr. Irene Cedillo Erythrocyte distribution width (RBC) [Ratio] 13.4 % Normal 11.0-15.0 [facility] [place] Comment on above: Performed By: #### C K, CRP #### [facility] [address] [place] [address] Dr. Irene Cedillo Hematocrit (Bld) [Volume fraction] 43.6 % Normal 36.0-48.0 [facility] [place] Comment on above: Performed By: #### C K, CRP #### [facility] [address] [place] [address] Dr. Irene Cedillo Hemoglobin (Bld) [Mass/Vol] 14.1 g/dL Normal 12.0-16.0 [facility] [place] Comment on above: Performed By: #### C K, CRP #### [facility] [address] [place] [address] Dr. Irene Cedillo IG # 0.01 10e3/ul Normal 0.00-0.03 [facility] [place] Comment on above: Performed By: #### C K, CRP #### [facility] [address] [place] [address] Dr. Irene Cedillo IG % 0.1 % Normal 0.0-0.5 [facility] Comment on above: Performed By: #### C K, CRP #### [facility] [address] [address] [address] Irene Cedillo LYMPH # 2.5 103/ul Normal 1.2-3.8 [facility] [place] Comment on above: Performed By: #### C K, CRP #### [facility] [address] [address] [address] Irene Cedillo Lymphocytes/100 WBC (Bld) 35.9 % Normal 20.5-60.0 [facility] [place] Comment on above: Performed By: #### C K, CRP #### [facility] [address] [address] [address] Irene Cedillo MANUAL DIFF REQ NO Normal [facility] Comment on above: Performed By: #### C K, CRP #### [facility] [address] [place] [address] Dr. Irene Cedillo MCH (RBC) [Entitic mass] 29.6 pg Normal 26.7-34.0 [facility] Comment on above: Performed By: #### C K, CRP #### [facility] [address] [place] [address] Dr. Irene Cedillo MCHC (RBC) [Mass/Vol] 32.3 g/dL Normal 29.9-35.2 [facility] [place] Comment on above: Performed By: #### C K, CRP #### [facility] [address] [place] [address] Dr. Irene Cedillo MCV (RBC) [Entitic vol] 91.6 fL Normal 81.0-99.0 [facility] Comment on above: Performed By: #### C K, CRP #### [facility] [address] [place] [address] Dr. Irene Cedillo MONO # 0.4 103/ul Normal 0.3-0.8 [facility] [place] Comment on above: Performed By: #### C K, CRP #### [facility] [address] [place] [address] Dr. Irene Cedillo Monocytes/100 WBC (Bld) 5.2 % Normal 1.7-12.0 [facility] Comment on above: Performed By: #### C K, CRP #### [facility] [address] [place] [address] Dr. Irene Cedillo NEUT # 3.8 103/ul Normal 1.4-6.5 [facility] [place] Comment on above: Performed By: #### C K, CRP #### [facility] [address] [place] [address] Dr. Irene Cedillo Neutrophils/100 WBC (Bld) 55.3 % Normal 43.0-75.0 [facility] [place] Comment on above: Performed By: #### C K, CRP #### [facility] [address] [place] [address] Dr. Irene Cedillo Platelet mean volume (Bld) [Entitic vol] 9.7 fL Normal 9.5-13.5 [facility] [place] Comment on above: Performed By: #### C K, CRP #### [facility] [address] [place] [address] Dr. Irene Cedillo PLT 271 103/ul Normal 150-450 [facility] Comment on above: Performed By: #### C K, CRP #### [facility] [address] [place] [address] Dr. Irene Cedillo RBC 4.76 106/ul Normal 4.20-5.40 [facility] Comment on above: Performed By: #### C K, CRP #### [facility] [address] [place] [address] Dr. Irene Cedillo WBC 6.9 103/ul Normal 4.0-11.0 [facility] Comment on above: Performed By: #### C K, CRP #### [facility] [address] [place] [address] Dr. Irene Cedillo CPKon 10-18-2022 CK [Catalytic activity/Vol] 57 U/L Normal 26-192 [facility] [place] Comment on above: Performed By: #### T SH #### [facility] [address] [place] [address] Dr. Irene Cedillo CRPon 10-18-2022 CRP 0.8 mg/dL Normal <=1.0 [facility] Comment on above: Performed By: #### T SH #### [facility] [address] [place] [address] Dr. Irene Cedillo FREE T4on 10-18-2022 Free T4 [Mass/Vol] 1.07 ng/dL Normal 0.76-1.46 [facility] Comment on above: Performed By: #### C K, CRP #### [facility] [address] [place] [address] Dr. Irene Cedillo PROF 14(COMP METB)on 023 Albumin [Mass/Vol] 3.9 g/dL Normal 3.4-5.0 [facility] Comment on above: Performed By: #### T SH #### [facility] [address] [place] [address] Dr. Irene Cedillo Albumin/Globulin [Mass ratio] 1.1 {ratio} Normal [facility] [place] Comment on above: Performed By: #### T SH #### [facility] [address] [place] [address] Dr. Irene Cedillo ALP [Catalytic activity/Vol] 90 U/L Normal 46-116 [facility] [place] Comment on above: Performed By: #### T SH #### [facility] [address] [place] [address] Dr. Irene Cedillo ALT [Catalytic activity/Vol] 32 U/L Normal 14-59 [facility] [place] Comment on above: Performed By: #### T SH #### [facility] [address] [place] [address] Dr. Irene Cedillo Anion gap [Moles/Vol] 13.8 mmol/L Normal [facility] Comment on above: Performed By: #### T SH #### [facility] [address] [place] [address] Dr. Irene Cedillo AST [Catalytic activity/Vol] 26 U/L Normal 15-37 [facility] [place] Comment on above: Performed By: #### T SH #### [facility] [address] [place] [address] Dr. Irene Cedillo Bilirubin [Mass/Vol] 0.2 mg/dL Normal 0.2-1.0 [facility] Comment on above: Performed By: #### T SH #### [facility] [address] [address] [address] Irene Cedillo Calcium [Mass/Vol] 9.1 mg/dL Normal 8.5-10.1 [facility] Comment on above: Performed By: #### T SH #### [facility] [address] [address] [address] Irene Cedillo Chloride [Moles/Vol] 102 mmol/L Normal 98-107 [facility] [place] Comment on above: Performed By: #### T SH #### [facility] [address] [address] [address] Irene Cedillo CO2 [Moles/Vol] 25.4 mmol/L Normal 21.0-32.0 [facility] Comment on above: Performed By: #### T SH #### [facility] [address] [place] [address] Dr. Irene Cedillo Creatinine [Mass/Vol] 0.64 mg/dL Normal 0.55-1.02 [facility] [place] Comment on above: Performed By: #### T SH #### [facility] [address] [address] [address] Irene Cedillo EGFR-AF WELSH >60 Normal >=60 [facility] Comment on above: Performed By: #### T SH #### [facility] [address] [place] [address] Dr. Irene Cedillo EGFR-NON AF WELSH >60 Normal >=60 [facility] [place] Comment on above: Performed By: #### T SH #### [facility] [address] [address] [address] Irene Cedillo Globulin (S) [Mass/Vol] 3.6 g/dL Normal [facility] Comment on above: Performed By: #### T SH #### [facility] [address] [place] [address] Dr. Irene Cedillo Glucose [Mass/Vol] 132 mg/dL Critically high 74-106 [facility] Comment on above: Performed By: #### T SH #### [facility] [address] [address] [address] Ierne Cedillo Potassium [Moles/Vol] 4.2 mmol/L Normal 3.5-5.1 [facility] Comment on above: Performed By: #### T SH #### [facility] [address] [address] [address] Irene Cedillo Protein [Mass/Vol] 7.5 g/dL Normal 6.4-8.2 [facility] Comment on above: Performed By: #### T SH #### [facility] [address] [address] [address] Irene Cedillo Sodium [Moles/Vol] 137 mmol/L Normal 136-145 [facility] Comment on above: Performed By: #### T SH #### [facility] [address] [place] [address] Dr. Irene Cedillo Urea nitrogen [Mass/Vol] 19.0 mg/dL Critically high 7.0-18.0 [facility] [place] Comment on above: Performed By: #### T SH #### [facility] [address] [address] [address] Irene Cedillo Urea nitrogen/Creatinine [Mass ratio] 29.7 mg/mg Normal [facility] [place] Comment on above: Performed By: #### T SH #### [facility] [address] [place] [address] Dr. Irene Cedillo PROTIMEon 10-18-2022 INR Coag (PPP) [Relative time] {INR} Normal [facility] Comment on above: Performed By: #### C K, CRP #### [facility] [address] [place] [address] Dr. Irene Cedillo INR GUIDELINES SEE BELOW Normal [facility] Comment on above: Result Comment: JUAN RAMON RED INR: 2.0 - 3.0 CONDITIONS NOT LISTED BELOW 2.5 - 3.5 FOR PROSTHETIC HEART VALVE REPLACEMENT 2.5 - 3.5 RECURRENT THROMBOSIS Performed By: #### C K, CRP #### [facility] [address] [address] [address] Irene Cedillo PT Coag (PPP) [Time] 9.8 s Normal 9.0-11.6 [facility] Comment on above: Performed By: #### C K, CRP #### [facility] [address] [place] [address] Dr. Irene Cedillo PTTon 10-18-2022 aPTT Coag (Bld) [Time] 26.0 s Normal 22.3-36.2 [facility] Comment on above: Performed By: #### C K, CRP #### [facility] [address] [place] [address] Dr. Irene Cedillo [facility] SED RATE 42 mm/hr Critically high <=30 [facility] Comment on above: Performed By: #### S EDR #### [facility] [address] [place] [address] Dr. Irene Cedillo TSHon 10-18-2022 TSH 0.718 uIU/mL Normal 0.358-3.740 [facility] Comment on above: Performed By: #### T SH #### [facility] [address] [place] [address] Dr. Irene Cedillo UA RANDOM W/MICROSCOPICon BACTERIA NONE SEEN Normal NONE SEEN [facility] Comment on above: Performed By: #### C CPAB #### [facility] [address] [place] [address] Dr. Irene Cedillo Bilirubin Ql (U) Negative Normal NEGATIVE [facility] Comment on above: Performed By: #### C CPAB #### [facility] [address] [place] [address] Dr. Irene Cedillo CAST NONE SEEN Normal NONE SEEN [facility] Comment on above: Performed By: #### C CPAB #### [facility] [address] [place] [address] Dr. Irene Cedillo Clarity (U) CLEAR Normal CLEAR [facility] Comment on above: Performed By: #### C CPAB #### [facility] [address] [place] [address] Dr. Irene Cedillo Color (U) LT. YELLOW Normal YELLOW [facility] Comment on above: Performed By: #### C CPAB #### [facility] [address] [place] [address] Dr. Irene Cedillo Crystals LM Nom (Urine sed) NONE SEEN Normal NONE SEEN [facility] Comment on above: Performed By: #### C CPAB #### [facility] [address] [address] [address] Irene Cedillo Epithelial cells LM Ql (Urine sed) NONE SEEN Normal NONE SEEN /RARE [facility] Comment on above: Performed By: #### C CPAB #### [facility] [address] [place] [address] Dr. Irene Cedillo Glucose Ql (U) Negative Normal NEGATIVE [facility] Comment on above: Performed By: #### C CPAB #### [facility] [address] [place] [address] Dr. Irene Cedillo Hemoglobin Ql (U) Negative Normal NEGATIVE [facility] Comment on above: Performed By: #### C CPAB #### [facility] [address] [place] [address] Dr. Irene Cedillo Ketones Ql (U) Negative Normal NEGATIVE [facility] Comment on above: Performed By: #### C CPAB #### [facility] [address] [place] [address] Dr. Irene Cedillo LEUKOCYTES Negative Normal NEGATIVE [facility] Comment on above: Performed By: #### C CPAB #### [facility] [address] [place] [address] Dr. Irene Cedillo MUCOUS NONE SEEN Normal NONE SEEN [facility] Comment on above: Performed By: #### C CPAB #### [facility] [address] [place] [address] Dr. Irene Cedillo Nitrite Ql (U) Negative Normal NEGATIVE [facility] Comment on above: Performed By: #### C CPAB #### [facility] [address] [place] [address] Dr. Irene Cedillo pH (U) 5.5 [pH] Normal 5-9 [facility] Comment on above: Performed By: #### C CPAB #### [facility] [address] [place] [address] Dr. Irene Cedillo RBC 0-2 Normal 0-2 [facility] Comment on above: Performed By: #### C CPAB #### [facility] [address] [place] [address] Dr. Irnee Cedillo SPEC GRAVITY 1.020 Normal 1.005-<=1.02 5 [facility] Comment on above: Performed By: #### C CPAB #### [facility] [address] [place] [address] Dr. Irene Cedillo UA PROTEIN Negative Normal NEGATIVE/ TRACE [facility] Comment on above: Performed By: #### C CPAB #### [facility] [address] [place] [address] Dr. Irene Cedillo Urobilinogen Qn (U) 0.2 {Junior'U}/dL Normal 0.2 - 1. 0 [facility] Comment on above: Performed By: #### C CPAB #### [facility] [address] [place] [address] Dr. Irene Cedillo WBC NONE SEEN Normal NONE SEEN [facility] Comment on above: Performed By: #### C CPAB #### [facility] [address] [place] [address] Dr. Irene Cedillo HLA B 27on 09-21-2022 HLA-B27 Negative Normal [facility] Comment on above: Result Comment: HLA- B*27 Negative B27 allele interpretation for all loci based on IMGT/HLA database version 3.44 This test was developed and its performance characteristics determined by [facility]. It has not been cleared or approved by the Food and Drug Administration. [facility] CLIA ID Number [id number] . This test was performed using PCR (Polymerase Chain Reaction)/SSOP (Sequence Specific Oligonucleotide Probes) technique. SBT (Sequence Based Typing) and/or SSP (Sequence Specific Primers) may be used as supplemental methods when necessary. Please contact [facility] Customer Service at if you have any questions. . Director of [facility] Laboratory Dr Kris Salinas, PhD Performed By: #### C CPAB #### [facility] [address] [place] [address] Dr. Irene Cedillo ADRI by IFAon 09-15-2022 Antinuclear Antibodies, IFA Positive Abnormal [facility] Comment on above: Result Comment: Nega tive <1:80 Borderline 1:80 Positive >1:80 Performed By: #### S EDR #### [facility] [address] [address] [address] Irene Cedillo Centriole Pattern Normal [facility] Comment on above: Performed By: #### S EDR #### [facility] [address] [address] [address] Irene Cedillo Centromere Pattern Normal [facility] Comment on above: Performed By: #### S EDR #### [facility] [address] [address] [address] Irene Cedillo Homogeneous Pattern 1:160 Critically high [facility] Comment on above: Result Comment: ICAP nomenclature: AC-1 Performed By: #### S EDR #### [facility] [address] [address] [address] Irene Cedillo Midbody Pattern Normal [facility] Comment on above: Performed By: #### S EDR #### [facility] [address] [address] [address] Irene Cedillo Note: Comment Normal [facility] Comment on above: Result Comment: For [...] titers Nucleosomes, Histones Drug-induced SLE Speckled Sm, FORGE HELPER, SCL-70, SLE,MCTD,PSS (diffuse form), SS-A/SS-B Sjogrens Nucleolar SCL-70, PM-1/SCL High titers Scleroderma, PM/DM Centromere Centromere PSS (limited form) w/Crest syndrome variable Nuclear Dot Sp100,[id number] Primary Biliary Cirrhosis Nuclear GP210, Primary Biliary Cirrhosis Membrane margie A,B,C Performed By: #### S EDR #### [facility] [address] [place] [address] [id number] [address] Irene Cedillo Nuclear Dot Pattern Normal [facility] Comment on above: Performed By: #### S EDR #### [facility] [address] [address] [address] Irene Cedillo Nuclear Membrane Pattern Normal [facility] Comment on above: Performed By: #### S EDR #### [facility] [address] [place] [address] Dr. Irene Cedillo Nucleolar Pattern Normal [facility] Comment on above: Performed By: #### S EDR #### [facility] [address] [address] [address] Irene Cedillo PCNA Pattern Normal [facility] Comment on above: Performed By: #### S EDR #### [facility] [address] [place] [address] Dr. Irene Cedillo Speckled Pattern Normal [facility] Comment on above: Performed By: #### S EDR #### [facility] [address] [place] [address] Dr. Irene Cedillo Spindle Apparatus Pattern Normal [facility] Comment on above: Performed By: #### S EDR #### [facility] [address] [place] [address] Dr. Irene Cedillo CYCLIC CITRULLINATED PEPTIDE AB (CCP)on 09-15-2022 CCP Antibodies IgG/IgA 0 units Normal 0-19 [facility] Comment on above: Result Comment: Nega tive <20 Weak positive 20 - 39 Moderate positive 40 - 59 Strong positive >59 Performed By: #### C CPAB #### [facility] [address] [place] [address] Dr. Irene Cedillo RHEUMATOID FACTORon 09-15-19 23 RA Latex Turbid. <10.0 Normal <14.0 [facility] Comment on above: Performed By: #### C K, CRP #### [facility] [address] [place] [address] Dr. Irene Cedillo CBC AUTO DIFFon 09-13-2022 BASO # 0.0 103/ul Normal 0.0-0.1 [facility] Comment on above: Performed By: #### H PYLORI #### [facility] [address] [place] [address] Dr. Irene Cedillo Basophils/100 WBC (Bld) 0.4 % Normal 0.2-2.0 [facility] Comment on above: Performed By: #### H PYLORI #### [facility] [address] [place] [address] Dr. Irene Cedillo EO # 0.3 103/ul Normal 0.0-0.7 [facility] Comment on above: Performed By: #### H PYLORI #### [facility] [address] [place] [address] Dr. Irene Cedillo Eosinophils/100 WBC (Bld) 4.4 % Normal 0.9-7.0 [facility] Comment on above: Performed By: #### H PYLORI #### [facility] [address] [place] [address] Dr. Irene Cedillo Erythrocyte distribution width (RBC) [Ratio] 13.2 % Normal 11.0-15.0 [facility] Comment on above: Performed By: #### H PYLORI #### [facility] [address] [place] [address] Dr. Irene Cedillo Hematocrit (Bld) [Volume fraction] 41.5 % Normal 36.0-48.0 [facility] Comment on above: Performed By: #### H PYLORI #### [facility] [address] [place] [address] Dr. Irene Cedillo Hemoglobin (Bld) [Mass/Vol] 14.0 g/dL Normal 12.0-16.0 [facility] Comment on above: Performed By: #### H PYLORI #### [facility] [address] [place] [address] Dr. Irene Cedillo IG # 0.02 10e3/ul Normal 0.00-0.03 [facility] Comment on above: Performed By: #### H PYLORI #### [facility] [address] [place] [address] Dr. Irene Cedillo IG % 0.3 % Normal 0.0-0.5 [facility] Comment on above: Performed By: #### H PYLORI #### [facility] [address] [place] [address] Dr. Irene Cedillo LYMPH # 2.5 103/ul Normal 1.2-3.8 [facility] Comment on above: Performed By: #### H PYLORI #### [facility] [address] [place] [address] Dr. Irene Cedillo Lymphocytes/100 WBC (Bld) 34.4 % Normal 20.5-60.0 [facility] Comment on above: Performed By: #### H PYLORI #### [facility] [address] [place] [address] Dr. Irene Cedillo MANUAL DIFF REQ NO Normal [facility] Comment on above: Performed By: #### H PYLORI #### [facility] [address] [place] [address] Dr. Irene Cedillo MCH (RBC) [Entitic mass] 30.0 pg Normal 26.7-34.0 [facility] Comment on above: Performed By: #### H PYLORI #### [facility] [address] [place] [address] Dr. Irene Cdeillo MCHC (RBC) [Mass/Vol] 33.7 g/dL Normal 29.9-35.2 [facility] Comment on above: Performed By: #### H PYLORI #### [facility] [address] [place] [address] Dr. Irene Cedillo MCV (RBC) [Entitic vol] 88.9 fL Normal 81.0-99.0 [facility] Comment on above: Performed By: #### H PYLORI #### [facility] [address] [place] [address] Dr. Irene Cedillo MONO # 0.4 103/ul Normal 0.3-0.8 [facility] Comment on above: Performed By: #### H PYLORI #### [facility] [address] [place] [address] Dr. Irene Cedillo Monocytes/100 WBC (Bld) 5.6 % Normal 1.7-12.0 [facility] Comment on above: Performed By: #### H PYLORI #### [facility] [address] [place] [address] Dr. Irene Cedillo NEUT # 4.0 103/ul Normal 1.4-6.5 [facility] Comment on above: Performed By: #### H PYLORI #### [facility] [address] [address] [address] Irene Cedillo Neutrophils/100 WBC (Bld) 54.9 % Normal 43.0-75.0 [facility] Comment on above: Performed By: #### H PYLORI #### [facility] [address] [address] [address] Irene Cedillo Platelet mean volume (Bld) [Entitic vol] 9.6 fL Normal 9.5-13.5 [facility] Comment on above: Performed By: #### H PYLORI #### [facility] [address] [place] [address] Dr. Irene Cedillo PLT 314 103/ul Normal 150-450 [facility] Comment on above: Performed By: #### H PYLORI #### [facility] [address] [address] [address] Irene Cedillo RBC 4.67 106/ul Normal 4.20-5.40 [facility] Comment on above: Performed By: #### H PYLORI #### [facility] [address] [address] [address] Irene Cedillo WBC 7.3 103/ul Normal 4.0-11.0 [facility] Comment on above: Performed By: #### H PYLORI #### [facility] [address] [place] [address] Dr. Irene Cedillo CRPon 09-13-2022 CRP 0.3 mg/dL Normal <=1.0 [facility] Comment on above: Performed By: #### C K, CRP #### [facility] [address] [address] [address] Irene Cedillo RENAL FUNCTION PANELon 09-13 Albumin [Mass/Vol] 3.7 g/dL Normal 3.4-5.0 [facility] Comment on above: Performed By: #### R ENAL #### [facility] [address] [address] [address] Irene Cedillo Calcium [Mass/Vol] 9.3 mg/dL Normal 8.5-10.1 [facility] Comment on above: Performed By: #### R ENAL #### [facility] [address] [address] [address] Irene Cedillo Chloride [Moles/Vol] 105 mmol/L Normal 98-107 [facility] Comment on above: Performed By: #### R ENAL #### [facility] [address] [place] [address] Dr. Irene Cedillo CO2 [Moles/Vol] 30.5 mmol/L Normal 21.0-32.0 [facility] Comment on above: Performed By: #### R ENAL #### [facility] [address] [place] [address] Dr. Irene Cedillo Creatinine [Mass/Vol] 0.64 mg/dL Normal 0.55-1.02 [facility] Comment on above: Performed By: #### R ENAL #### [facility] [address] [place] [address] Dr. Irene Cedillo EGFR-AF WELSH >60 Normal >=60 [facility] Comment on above: Performed By: #### R ENAL #### [facility] [address] [place] [address] Dr. Irene Cedillo EGFR-NON AF WELSH >60 Normal >=60 [facility] Comment on above: Performed By: #### R ENAL #### [facility] [address] [place] [address] Dr. Irene Cedillo Glucose [Mass/Vol] 130 mg/dL Critically high 74-106 [facility] Comment on above: Performed By: #### R ENAL #### [facility] [address] [place] [address] Dr. Irene Cedillo Phosphate [Mass/Vol] 3.9 mg/dL Normal 2.6-4.7 [facility] [place] Comment on above: Performed By: #### R ENAL #### [facility] [address] [place] [address] Dr. Irene Cedillo Potassium [Moles/Vol] 4.0 mmol/L Normal 3.5-5.1 [facility] Comment on above: Performed By: #### R ENAL #### [facility] [address] [address] [address] Irene Cedillo Sodium [Moles/Vol] 143 mmol/L Normal 136-145 [facility] Comment on above: Performed By: #### R ENAL #### [facility] [address] [address] [address] Irene Cedillo Urea nitrogen [Mass/Vol] 16.0 mg/dL Normal 7.0-18.0 [facility] Comment on above: Performed By: #### R ENAL #### [facility] [address] [address] [address] [facility] mm/hr Normal <=30 [facility] Comment on above: Performed By: #### C K, CRP #### [facility] [address] [address] [address] Irene Cedillo MRI ANKLE LT WO [...] by: TONY DICKINSON Date: 2022-08-26 09:36 Normal [facility] MAMM SCREEN 3D RIAN CADon 08-08-2022 MG MAMM SCREEN 3D RIAN CAD Patient: EMILY MACIAS Exam Date: 08/08/2022 : 1960 Gender:F Ordering : DR. KENDRA MCKINLEY M.D. Admission #: [id number] Family : DR NETTA MONTOYA M.D. Order #: [id number] CLICK HERE TO VIEW EXAM RADIOLOGY REPORT [...] breast cancer at age 78. LOCATION: [facility] BREAST COMPOSITION: Heterogeneously dense,which may obscure [...] Alexandre M.D. on 08/09/2022 at 15:10 Normal [facility] GLYCOHEMOGLOBIN A1Con 2021 ADA RECOMMENDATION SEE BELOW Normal [facility] Comment on above: Result Comment: ADA RECOMMENDED LIMIT 4.0 - 6.0 ADA THERAPEUTIC TARGET < 7.0 ACTION SUGGESTED > 7.0 Performed By: #### C CPAB #### [facility] [address] [place] [address] Dr. Irene Cedillo Glucose [Mass/Vol] 128 mg/dL Normal [facility] Comment on above: Performed By: #### C CPAB #### [facility] [address] [address] [address] Irene Cedillo HbA1c (Bld) [Mass fraction] 6.1 % Normal 4.5-6.2 [facility] Comment on above: Performed By: #### C CPAB #### [facility] [address] [address] [address] Irene Cedillo XR FOOT RIAN MIN [...] by: PELON ALEXANDRE Date: 2022-07-06 06:21 Normal [facility] OVA AND PARASITE EXAMINATION on 04-13-2022 Ova + Parasite Exam Final report Normal [facility] Comment on above: Result Comment: Thes e results were obtained using wet preparation(s) and trichrome stained smear. This test does not include testing for Cryptosporidium parvum, Cyclospora, or Microsporidia. Performed By: #### S EDR #### [facility] [address] [address] [address] Irene Cedillo Result 1 Comment Normal [facility] Comment on above: Result Comment: No o va, cysts, or parasites seen. . One negative specimen does not rule out the possibility of a parasitic infection. Performed By: #### S EDR #### [facility] [address] [place] [address] Dr. Irene Cedillo CALPROTECTIN, FECALon 2021 Calprotectin, Fecal 36 ug/g Normal 0-120 [facility] Comment on above: Result Comment: Conc entration Interpretation Follow-Up <16 - 50 ug/g Normal None >50 -120 ug/g Borderline Re-evaluate in 4-6 weeks >120 ug/g Abnormal Repeat as clinically indicated Performed By: #### C K, CRP #### [facility] [address] [place] [address] Dr. Irene Cedillo HELICOBACTER PYLORI AG STOOL on 04-12-2022 H. pylori Stool Ag, EIA Negative Normal Negative [facility] Comment on above: Performed By: #### H PYLORI #### [facility] [address] [place] [address] Dr. Irene Cedillo LACTOFERRIN FECAL QUANTon Lactoferrin, Fecal, Quant. <1.00 Normal 0.00-7.24 [facility] Comment on above: Result Comment: Re sults [...] (IBS). Performed By: #### T SH #### [facility] [address] [place] [address] Dr. Irene Cedillo C. DIFF PCRon 04-08-2022 C. DIFFICILE PCR Negative Normal NEGATIVE [facility] Comment on above: Performed By: #### S EDR #### [facility] [address] [place] [address] Dr. Irene Cedillo GI PANEL (PCR)on 04-08-2022 Adenovirus F 40/41 Not detected Normal NOT DETECTED [facility] Comment on above: Performed By: #### S EDR #### [facility] [address] [place] [address] Dr. Irene Cedillo Astrovirus Not detected Normal NOT DETECTED [facility] Comment on above: Performed By: #### S EDR #### [facility] [address] [place] [address] Dr. Irene Cedillo C. Diff toxin A/B Not detected Normal NOT DETECTED [facility] Comment on above: Performed By: #### S EDR #### [facility] [address] [place] [address] Dr. Irene Cedillo Campylobacter Not detected Normal NOT DETECTED [facility] Comment on above: Performed By: #### S EDR #### [facility] [address] [place] [address] Dr. Irene Cedillo Cryptosporidium Not detected Normal NOT DETECTED [facility] Comment on above: Performed By: #### S EDR #### [facility] [address] [place] [address] Dr. Irene Cedillo Cyclos. Cayetanensis Not detected Normal NOT DETECTED [facility] Comment on above: Performed By: #### S EDR #### [facility] [address] [place] [address] Dr. Irene Cedillo E. Coli O157 Not Applicable Normal Not Applicable [facility] Comment on above: Performed By: #### S EDR #### [facility] [address] [place] [address] Dr. Irene Cedillo E. histolytica Not detected Normal NOT DETECTED [facility] Comment on above: Performed By: #### S EDR #### [facility] [address] [place] [address] Dr. Irene Cedillo EAEC Not detected Normal NOT DETECTED [facility] Comment on above: Performed By: #### S EDR #### [facility] [address] [place] [address] Dr. Irene Cedillo EIEC Not detected Normal NOT DETECTED [facility] Comment on above: Performed By: #### S EDR #### [facility] [address] [place] [address] Dr. Irene Cedillo EPEC Not detected Normal NOT DETECTED [facility] Comment on above: Performed By: #### S EDR #### [facility] [address] [address] [address] Irene Cedillo ETEC Not detected Normal NOT DETECTED [facility] Comment on above: Performed By: #### S EDR #### [facility] [address] [address] [address] Irene Galindo Lamblia Not detected Normal NOT DETECTED [facility] Comment on above: Performed By: #### S EDR #### [facility] [address] [address] [address] Irene VIGIL CONTROLS PASSED Normal [facility] Comment on above: Performed By: #### S EDR #### [facility] [address] [place] [address] Dr. Irene GRULLON HEADER GI PANEL BACTERIA Normal T [facility] Comment on above: Performed By: #### S EDR #### [facility] [address] [address] [address] Irene CALDERA ECOLI GI PANEL DIARRHEAGEN IC E.COLI / SHIGELLA Normal [facility] Comment on above: Performed By: #### S EDR #### [facility] [address] [place] [address] Dr. Irene CALDERA INFO SEE BELOW [facility] Comment on above: Result Comment: EAEC - Enteroaggregative E. Coli EPEC- Enteropathogenic E. Coli ETEC- Enterotoxigenic E. Coli lt/st STEC- Shigella-like toxin-producing E. Coli stx1/stx2 EIEC- Shigella/Enteroinvasive E. Coli Performed By: #### S EDR #### [facility] [address] [place] [address] Dr. Irene CALDERA PARASITES GI PANEL PARASITES Normal [facility] Comment on above: Performed By: #### S EDR #### [facility] [address] [place] [address] Dr. Irene CALDERA VIRUS GI PANEL VIRUSES Normal [facility] Comment on above: Performed By: #### S EDR #### [facility] [address] [place] [address] Dr. Irene Cedillo Norovirus GI/GII Not detected Normal NOT DETECTED [facility] Comment on above: Performed By: #### S EDR #### [facility] [address] [place] [address] Dr. Irene Cedillo P. Shigelloides Not detected Normal NOT DETECTED [facility] Comment on above: Performed By: #### S EDR #### [facility] [address] [place] [address] Dr. Irene Cedillo Rotavirus A Not detected Normal NOT DETECTED [facility] Comment on above: Performed By: #### S EDR #### [facility] [address] [place] [address] Dr. Irene Cedillo Salmonella Not detected Normal NOT DETECTED [facility] Comment on above: Performed By: #### S EDR #### [facility] [address] [place] [address] Dr. Irene Cedillo Sapovirus Not detected Normal NOT DETECTED [facility] Comment on above: Performed By: #### S EDR #### [facility] [address] [place] [address] Dr. Irene Cedillo STEC Not detected Normal NOT DETECTED [facility] Comment on above: Performed By: #### S EDR #### [facility] [address] [place] [address] Dr. Irene Cedillo Vibrio Not detected Normal NOT DETECTED [facility] Comment on above: Performed By: #### S EDR #### [facility] [address] [place] [address] Dr. Irene Cedillo Vibrio Cholera Not detected Normal NOT DETECTED [facility] Comment on above: Performed By: #### S EDR #### [facility] [address] [place] [address] Dr. Irene Cedillo Y. Enterocolitica Not detected Normal NOT DETECTED [facility] Comment on above: Performed By: #### S EDR #### [facility] [address] [address] [address] Irene Cedillo BUNon 03-27-2022 Urea nitrogen [Mass/Vol] 20.0 mg/dL Critically high 7.0-18.0 [facility] Comment on above: Performed By: #### C K, CRP #### [facility] [address] [address] [address] Irene Cedillo CREATININEon 03-27-2022 Creatinine [Mass/Vol] 0.75 mg/dL Normal 0.55-1.02 [facility] Comment on above: Performed By: #### C K, CRP #### [facility] [address] [address] [address] Irene Cedillo EGFR-AF WELSH >60 Normal >=60 [facility] Comment on above: Performed By: #### C K, CRP #### [facility] [address] [address] [address] Irene Cedillo EGFR-NON AF WELSH >60 Normal >=60 [facility] Comment on above: Performed By: #### C K, CRP #### [facility] [address] [address] [address] ABD/PELV W CONon [...] and/or use of iterative reconstruction technique. Findings: Electromatic Typist: No acute abnormalities are seen. Liver/Biliary System: [...] by: CIELO GARCIA Date: 2022-03-27 21:37 Normal [facility] POINT OF CARE GLUCOSEon - Glucose [Mass/Vol] 173 mg/dL Critically high 74-106 [facility] Comment on above: Performed By: #### C CPAB #### [facility] [address] [address] [address] Irene Cedillo FSHon 02-25-2022 FSH 46.6 mIU/mL Normal [facility] Comment on above: Result Comment: Adul t Female: Follicular phase 3.5 - 12.5 Ovulation phase 4.7 - 21.5 Luteal phase 1.7 - 7.7 Postmenopausal 25.8 - 134.8 Performed By: #### C K, CRP #### [facility] [address] [address] [address] Irene Cedillo LUTEINIZING HORMONE (LH)on 0 02-25-2022 LH 33.3 mIU/mL Normal [facility] Comment on above: Result Comment: Adul t Female: Follicular phase 2.4 - 12.6 Ovulation phase 14.0 - 95.6 Luteal phase 1.0 - 11.4 Postmenopausal 7.7 - 58.5 Performed By: #### H PYLORI #### [facility] [address] [place] [address] Dr. Irene Cedillo TESTOSTERONE, TOTALon 2021 Testosterone [Mass/Vol] 6 ng/dL Normal 3-67 [facility] Comment on above: Performed By: #### H PYLORI #### [facility] [address] [place] [address] Dr. Irene Cedillo THYROID PEROXIDASE ABon 06- Thyroid Peroxidase (TPO) Ab <8 Normal 0-34 [facility] Comment on above: Performed By: #### C K, CRP #### [facility] [address] [place] [address] Dr. Irene Cedillo FREE T3on 02-24-2022 FREE T3 2.47 pg/mlL Normal 2.18-3.98 [facility] Comment on above: Performed By: #### S EDR #### [facility] [address] [place] [address] Dr. Irene Cedillo LYME DISEASE AB EIA W REFLEX on 01-31-2022 Lyme Total Antibody,EIA Negative Normal Negative [facility] Comment on above: Result Comment: Lyme Antibody Negative No laboratory evidence of infection with B. burgdorferi (Lyme disease). Negative results may occur in patients recently infected (greater than or equal to 14 days) with B. burgdorferi. If recent infection is suspected, repeat testing on a new sample collected in 7 to 14 days is recommended. Performed By: #### T SH #### [facility] [address] [place] [address] Dr. Irene Cedillo CPKon 01-30-2022 CK [Catalytic activity/Vol] 76 U/L Normal 26-192 [facility] Comment on above: Performed By: #### C K, CRP #### [facility] [address] [place] [address] Dr. Irene Cedillo CRPon 01-30-2022 CRP 0.4 mg/dL Normal <=1.0 [facility] Comment on above: Performed By: #### C K, CRP #### [facility] [address] [place] [address] Dr. Irene Cedillo SED [facility] 2021 SED RATE 8 mm/hr Normal <=30 [facility] Comment on above: Performed By: #### H PYLORI #### [facility] [address] [address] [address] Irene Cedillo C REACTIVE PROTEINon 021 CRP [Mass/Vol] 9.3 mg/L High 0.0-7.0 [facility] Comment on above: Performed By: #### 6 1405 #### [address] KNEE LEFT 3 [facility] 09-06-2021 KNEE LEFT 3 [facility] Department of Radiology [address] [place] [id number] ======== Patient Name: EMILY MACIAS : 1960 Sex: F Age: Race: White Pt. Location: Patient Status: Ordered Date: 09/06/2021 1:35:00 PM Completed Date: 09/06/2021 01:56 PM Requesting Provider: KIARA WILLETT Attending Provider: Report Copy To: Signs & Symptoms: M25.562 Pain in left knee I10 History: [place] Comments: Evaluate Exam: KNEE LEFT 3 S [...] above Electronically signed: Olga Murray. Transcribed by: [email or web address], User Resident: Electronically Signed by: OLGA MURRAY @ 09/06/2021 03:09 PM Normal [facility] Comment on above: Order Comment: Evalu ate KNEE RIGHT 3 [facility] KNEE RIGHT 3 [facility] Department of Radiology [address] [place] [phone] ======== Patient Name: EMILY MACIAS : 1960 Sex: F Age: Race: White Pt. Location: Patient Status: Ordered Date: 09/06/2021 1:35:00 PM Completed Date: 09/06/2021 01:56 PM Requesting Provider: KIARA WILLETT Attending Provider: Report Copy To: Signs & Symptoms: M25.561 Pain in right knee I10 History: [place] Comments: Evaluate Exam: KNEE RIGHT 3 [facility] ======== KNEE RIGHT 3 [facility] 09/06/2021 1:56 PM CLINICAL INDICATIONS: M25.561 Pain [...] above Electronically signed: Olga Murray. Transcribed by: [email or web address], User Resident: Electronically Signed by: OLGA MURRAY @ 09/06/2021 03:08 PM Normal [facility] Comment on above: Order Comment: Evalu ate SEDIMENTATION RATEon 021 SED RATE 7 mm/hr Normal 0-20 [facility] Comment on above: Performed By: #### 5 [id number] #### [facility] [address] Vital Signs Date Time Vital Sign Value Performing Clinician Facility 04-21-2025 10:15-0400 Body height 165.1 cm Netta Montoya MD Work Phone: [facility] 04-21-2025 10:15-0400 Body mass index (BMI) [Ratio] 32.8 kg/m2 Netta Montoya MD Work Phone: [facility] 04-21-2025 10:15-0400 Body weight 89.35 kg Netta Montoya MD Work Phone: [facility] 04-21-2025 10:15-0400 Diastolic blood pressure 56 mm[Hg] Netta Montoya MD Work Phone: [facility] 04-21-2025 10:15-0400 Heart rate 89 /min Netta Montoya MD Work Phone: [facility] 04-21-2025 10:15-0400 SaO2% (BldA) [Mass fraction] 98 % Netta Montoya MD Work Phone: [facility] 04-21-2025 10:15-0400 Systolic blood pressure 114 mm[Hg] Netta Montoya MD Work Phone: [facility] 04-07-2025 14:55-0400 Body height 166 cm Twan Siesel MD Work Phone: [facility] 04-07-2025 14:55-0400 Body height 165.74 cm Twan Diaz MD Work Phone: [facility] 04-07-2025 14:55-0400 Body mass index (BMI) [Ratio] 32.98 kg/m2 Twan Diaz MD Work Phone: [facility] 04-07-2025 14:55-0400 Body weight 90 kg Twan Diaz MD Work Phone: [facility] 04-07-2025 14:55-0400 Body weight 90.27 kg Twan Diaz MD Work Phone: [facility] 04-07-2025 14:55-0400 BP SITE #1 Twan Diaz MD Work Phone: [facility] 04-07-2025 14:55-0400 Diastolic blood pressure 68 mm[Hg] Twan Diaz MD Work Phone: [facility] 04-07-2025 14:55-0400 Heart rate 91 /min Twan Diaz MD Work Phone: [facility] 04-07-2025 14:55-0400 HGHTCHNVIS Twan Diaz MD Work Phone: [facility] 04-07-2025 14:55-0400 Systolic blood pressure 104 mm[Hg] Twan Diaz MD Work Phone: [facility] 04-07-2025 14:55-0400 VITALSDONE Twan Diaz MD Work Phone: [facility] 04-06-2025 09:21-0400 Body height 165.1 cm Netta Montoya MD Work Phone: [facility] 04-06-2025 09:21-0400 Body mass index (BMI) [Ratio] 32.5 kg/m2 Netta Montoya MD Work Phone: [facility] 04-06-2025 09:21-0400 Body weight 88.9 kg Netta Montoya MD Work Phone: [facility] 04-06-2025 09:21-0400 Diastolic blood pressure 71 mm[Hg] Netta Montoya MD Work Phone: [facility] 04-06-2025 09:21-0400 Heart rate 81 /min Netta Montoya MD Work Phone: [facility] 04-06-2025 09:21-0400 Systolic blood pressure 128 mm[Hg] Netta Montoya MD Work Phone: [facility] 12-26-2024 10:09-0400 Body height 165.1 cm [facility] 12-26-2024 10:09-0400 Body mass index (BMI) [Ratio] 32.7 kg/m2 [facility] 12-26-2024 10:09-0400 Body weight 89.2 kg [facility] 12-26-2024 10:09-0400 Diastolic blood pressure 70 mm[Hg] [facility] 12-26-2024 10:09-0400 Systolic blood pressure 112 mm[Hg] [facility] 12-10-2024 08:55-0400 Body height 165.1 cm Netta Montoya MD Work Phone: [facility] 12-10-2024 08:55-0400 Body mass index (BMI) [Ratio] 32.5 kg/m2 Netta Montoya MD Work Phone: [facility] 12-10-2024 08:55-0400 Body temperature 98.2 [degF] Netta Montoya MD Work Phone: [facility] 12-10-2024 08:55-0400 Body weight 88.9 kg Netta Montoya MD Work Phone: [facility] 12-10-2024 08:55-0400 Diastolic blood pressure 68 mm[Hg] Netta Montoya MD Work Phone: [facility] 12-10-2024 08:55-0400 Heart rate 88 /min Netta Montoya MD Work Phone: [facility] 12-10-2024 08:55-0400 Systolic blood pressure 103 mm[Hg] Netta Montoya MD Work Phone: [facility] 10-21-2024 09:08-0500 Body height 165.1 cm Netta Montoya MD Work Phone: [phone] [place] [address] 10-21-2024 09:08-0500 Body mass index (BMI) [Ratio] 31.9 kg/m2 Netta Montoya MD Work Phone: [facility] 10-21-2024 09:08-0500 Body weight 87.08 kg Netta Montoya MD Work Phone: [facility] 10-21-2024 09:08-0500 Diastolic blood pressure 64 mm[Hg] Netta Montoya MD Work Phone: [facility] 10-21-2024 09:08-0500 Heart rate 90 /min Netta Montoya MD Work Phone: [facility] 10-21-2024 09:08-0500 SaO2% (BldA) [Mass fraction] 97 % Netta Montoya MD Work Phone: [facility] 10-21-2024 09:08-0500 Systolic blood pressure 107 mm[Hg] Netta Montoya MD Work Phone: [facility] 09-30-2024 13:53-0500 Body height 160.02 cm Netta Montoya MD Work Phone: [facility] 09-30-2024 13:53-0500 Body mass index (BMI) [Ratio] 33.1 kg/m2 Netta Montoya MD Work Phone: [facility] 09-30-2024 13:53-0500 Body weight 84.82 kg Netta Montoya MD Work Phone: [facility] 09-30-2024 13:53-0500 Diastolic blood pressure 70 mm[Hg] Netta Montoya MD Work Phone: [facility] 09-30-2024 13:53-0500 Heart rate 85 /min Netta Montoya MD Work Phone: [facility] 09-30-2024 13:53-0500 Systolic blood pressure 101 mm[Hg] Netta Montoya MD Work Phone: [facility] 08-29-2024 11:03-0500 Diastolic blood pressure 68 mm[Hg] Netta Montoya MD Work Phone: [facility] 08-29-2024 11:03-0500 Heart rate 89 /min Netta Montoya MD Work Phone: [facility] 08-29-2024 11:03-0500 Systolic blood pressure 115 mm[Hg] Netta Montoya MD Work Phone: [facility] 07-29-2024 09:33-0500 Body height 160.02 cm Netta Montoya MD Work Phone: [facility] 07-29-2024 09:33-0500 Body mass index (BMI) [Ratio] 34.3 kg/m2 Netta Montoya MD Work Phone: [facility] 07-29-2024 09:33-0500 Body weight 87.99 kg Netta Montoya MD Work Phone: [facility] 07-29-2024 09:33-0500 Diastolic blood pressure 69 mm[Hg] Netta Montoya MD Work Phone: [facility] 07-29-2024 09:33-0500 Heart rate 75 /min Netta Montoya MD Work Phone: [facility] 07-29-2024 09:33-0500 Systolic blood pressure 101 mm[Hg] Netta Montoya MD Work Phone: [facility] 07-17-2024 13:59-0500 Body height 160.02 cm Netta Montoya MD Work Phone: [facility] 07-17-2024 13:59-0500 Body mass index (BMI) [Ratio] 34.5 kg/m2 Netta Montoya MD Work Phone: [facility] 07-17-2024 13:59-0500 Body weight 88.45 kg Netta Montoya MD Work Phone: [facility] 07-17-2024 13:59-0500 Diastolic blood pressure 69 mm[Hg] Netta Montoya MD Work Phone: [facility] 07-17-2024 13:59-0500 Heart rate 83 /min Netta Montoya MD Work Phone: [facility] 07-17-2024 13:59-0500 SaO2% (BldA) [Mass fraction] 93 % Netta Montoya MD Work Phone: [facility] 07-17-2024 13:59-0500 Systolic blood pressure 117 mm[Hg] Netta Montoya MD Work Phone: [facility] 02-21-2024 13:19-0400 Body height 165.1 cm Sagar Krause MD Work Phone: [facility] 02-21-2024 13:19-0400 Body mass index (BMI) [Ratio] 31.78 kg/m2 Sagar Krause MD Work Phone: [facility] 02-21-2024 13:19-0400 Body temperature 97.11 [degF] Sagar Krause MD Work Phone: [facility] 02-21-2024 13:19-0400 Body weight 86.64 kg Sagar Krause MD Work Phone: [facility] 12-26-2023 13:54-0400 Body height 165.1 cm Radha SANTOS Work Phone: [facility] 12-26-2023 13:54-0400 Body mass index (BMI) [Ratio] 33.45 kg/m2 Radha Asif OIL HEAT TECHNICIAN-MANAGER FITNESS Work Phone: [employer] 12-26-2023 13:54-0400 Body weight 91.17 kg Radha Asif OIL HEAT TECHNICIAN-MANAGER FITNESS Work Phone: [employer] 08-13-2023 09:30-0500 Body height 161.93 cm Netta Montoya Other [employer] Other 08-13-2023 09:30-0500 Body mass index (BMI) [Ratio] 34.46 kg/m2 Netta Montoya Other [employer] Other 08-13-2023 09:30-0500 Body weight 90.36 kg Netta Montoya Other [employer] Other 08-13-2023 09:30-0500 Diastolic blood pressure 70 mm[Hg] Netta Montoya Other [employer] Other 08-13-2023 09:30-0500 Systolic blood pressure 110 mm[Hg] Netta Montoya Other [employer] Other 08-09-2023 14:48-0500 Body height 165.1 cm Sagar Krause MD Work Phone: [employer] 08-09-2023 14:48-0500 Body mass index (BMI) [Ratio] 33.58 kg/m2 Sagar Krause MD Work Phone: [employer] 08-09-2023 14:48-0500 Body weight 91.54 kg Sagar Krause MD Work Phone: [employer] 04-24-2023 13:30-0400 Body height 161.93 cm Siva Ron Other [employer] Other 04-24-2023 13:30-0400 Body mass index (BMI) [Ratio] 32.52 kg/m2 Siva Ron Other [employer] Other 04-24-2023 13:30-0400 Body weight 85.28 kg Siva Ron Other [employer] Other 04-24-2023 13:30-0400 Diastolic blood pressure 70 mm[Hg] Siva Ron Other [employer] Other 04-24-2023 13:30-0400 Systolic blood pressure 126 mm[Hg] Siva Ron Other [employer] Other 02-22-2023 15:15-0400 Body height 165.1 cm Radha Stockey OIL HEAT TECHNICIAN-MANAGER FITNESS Work Phone: [employer] 02-22-2023 15:15-0400 Body mass index (BMI) [Ratio] 31.51 kg/m2 Radha [employer] OIL HEAT TECHNICIAN-MANAGER FITNESS Work Phone: [employer] 02-22-2023 15:15-0400 Body temperature 98.01 [degF] Radha Asif OIL HEAT TECHNICIAN-MANAGER FITNESS Work Phone: [employer] 02-22-2023 15:15-0400 Body weight 85.9 kg Radha Brandee OIL HEAT TECHNICIAN-MANAGER FITNESS Work Phone: [employer] 01-09-2023 09:30-0400 Body height 161.93 cm Netta Montoya Other [employer] Other 01-09-2023 09:30-0400 Body mass index (BMI) [Ratio] 33.04 kg/m2 Netta Montoya Other [employer] Other 01-09-2023 09:30-0400 Body weight 86.64 kg Netta Montoya Other [employer] Other 01-09-2023 09:30-0400 Diastolic blood pressure 60 mm[Hg] Netta Montoya Other [employer] Other 01-09-2023 09:30-0400 SaO2% (BldA) [Mass fraction] 97 % Netta Montoya Other [employer] Other 01-09-2023 09:30-0400 Systolic blood pressure 112 mm[Hg] Netta Lindsay Other [employer] Other 01-01-2023 15:45-0400 Body height 161.93 cm Siva Ron Other [employer] Other 01-01-2023 15:45-0400 Body mass index (BMI) [Ratio] 34.08 kg/m2 Siva Ron Other [employer] Other 01-01-2023 15:45-0400 Body weight 89.36 kg Siva Ron Other [employer] Other 01-01-2023 15:45-0400 Diastolic blood pressure 71 mm[Hg] Siva Ron Other [employer] Other 01-01-2023 15:45-0400 Systolic blood pressure 116 mm[Hg] Siva Ron Other [employer] Other 11-30-2022 13:58-0400 Body height 165.1 cm Sagar Krause MD Work Phone: [employer] 11-30-2022 13:58-0400 Body mass index (BMI) [Ratio] 32.12 kg/m2 Sagar Krause MD Work Phone: [employer] 11-30-2022 13:58-0400 Body weight 87.54 kg Sagar Krause MD Work Phone: [employer] 10-10-2022 14:30-0500 Body height 161.93 cm Netta Montoya Other [employer] Other 10-10-2022 14:30-0500 Body mass index (BMI) [Ratio] 34.08 kg/m2 Netta Montoya Other [employer] Other 10-10-2022 14:30-0500 Body weight 89.36 kg Netta Montoya Other [employer] Other 10-10-2022 14:30-0500 Diastolic blood pressure 70 mm[Hg] Netta Montoya Other [employer] Other 10-10-2022 14:30-0500 Systolic blood pressure 108 mm[Hg] Netta Montoya Other [employer] Other 09-13-2022 16:30-0500 Body height 161.93 cm Netta Montoya Other [employer] Other 09-13-2022 16:30-0500 Body mass index (BMI) [Ratio] 33.21 kg/m2 Netta Montoya Other [employer] Other 09-13-2022 16:30-0500 Body weight 87.09 kg Netta Montoya Other [employer] Other 09-13-2022 16:30-0500 Diastolic blood pressure 62 mm[Hg] Netta Montoya Other [employer] Other 09-13-2022 16:30-0500 SaO2% (BldA) [Mass fraction] 97 % Netta Montoya Other [facility] [employer] Other 09-13-2022 16:30-0500 Systolic blood pressure 108 mm[Hg] Netta Montoya Other [facility] [employer] Other Encounters Encounter Date Encounter Type Care Provider Facility Start: 05-13-2025 End: 05-13-2025 ambulatory Netta Montoya MD Work Phone: [facility] Work Phone: Start: 05-13-2025 End: 05-13-2025 Patient encounter procedure Netta Montoya MD -[facility] Work Phone: Start: 05-06-2025 End: 05-06-2025 ambulatory Netta Montoya MD Work Phone: [facility] Work Phone: Start: 05-06-2025 End: 05-06-2025 Patient encounter procedure Suzanne Madrigal DO -[facility] [place] Work Phone: Start: 04-21-2025 End: 04-21-2025 ambulatory Netta Montoya MD Work Phone: [facility] Work Phone: Start: 04-21-2025 End: 04-21-2025 Patient encounter procedure Wanda Fonseca MD -[facility] Work Phone: Start: 04-08-2025 Visit out of hours Twan frias MD Work Phone: [employer] [facility]. Work Phone: Start: 04-07-2025 In-person encounter Twan dee MD Work Phone: [facility] Work Phone: Start: 04-06-2025 End: 04-06-2025 ambulatory Netta Montoya MD Work Phone: [facility] Work Phone: Start: 04-06-2025 End: 04-06-2025 Patient encounter procedure Jb Giles APRN -[facility] Work Phone: Start: 03-19-2025 Non-patient / Non-visit Netta Montoya MD -[facility] [employer] Work Phone: Start: 02-25-2025 End: 02-25-2025 Transcribe Orders Daniel Castillo Work Phone: Referring Physician Comment on above: Left knee pain, unsp ecified chronicity (Primary Dx) Start: 02-09-2025 End: 02-09-2025 ambulatory Chandra Edouard MD Facility:[facility] Start: 01-05-2025 End: 01-05-2025 ambulatory Chandra Edouard MD Facility:[facility] Start: 12-26-2024 End: 12-26-2024 ambulatory Jb Grady Facility:[facility] Start: 12-26-2024 End: 12-26-2024 Patient encounter procedure [facility] Work Phone: Start: 12-22-2024 End: 12-22-2024 ambulatory Chandra Edouard MD Facility:[facility] Start: 12-10-2024 End: 12-10-2024 ambulatory Netta Montoya MD Work Phone: [facility] Work Phone: Start: 12-10-2024 End: 12-10-2024 Patient encounter procedure Netta Montoya MD Work Phone: [facility] Work Phone: Start: 11-10-2024 Non-patient / Non-visit Netta Montoya MD Work Phone: [facility] Physician [facility] Work Phone: Start: 10-21-2024 End: 10-21-2024 ambulatory Netta Montoya MD Work Phone: [facility] Work Phone: Start: 10-21-2024 End: 10-21-2024 Patient encounter procedure Netta Montoya MD Work Phone: [facility] Physician [facility] Work Phone: Start: 09-30-2024 End: 09-30-2024 Patient encounter procedure Netta Montoya MD Work Phone: [facility] [place] Work Phone: Start: 09-30-2024 End: 09-30-2024 ambulatory Netta Montoya MD Work Phone: [facility] Work Phone: Start: 09-30-2024 End: 09-30-2024 Patient encounter procedure Netta Montoya MD Work Phone: [facility] Work Phone: Start: 09-19-2024 End: 09-19-2024 ambulatory HANY DARLENE [facility] Start: 09-16-2024 ambulatory NARENDRANATH LAKTYRAMIPATHY [facility] Start: 09-08-2024 End: 09-08-2024 ambulatory Chandra Edouard MD Facility:[facility] Start: 08-29-2024 End: 08-29-2024 Patient encounter procedure Netta Montoya MD Work Phone: [facility] Work Phone: Start: 08-29-2024 End: 08-29-2024 ambulatory Jb Grady Facility:[facility] Start: 08-29-2024 End: 08-29-2024 Patient encounter procedure Netta Montoya MD Work Phone: [facility] Work Phone: Start: 08-18-2024 End: 08-18-2024 ambulatory Chandra Edouard MD Facility: [place] Start: 07-30-2024 ambulatory NARENDRANATH LAKSHMIPATHY [facility] Start: 07-29-2024 End: 07-29-2024 Patient encounter procedure Netta Montoya MD Work Phone: [facility] Work Phone: Start: 07-17-2024 End: 07-17-2024 Patient encounter procedure Netta Montoya MD Work Phone: [facility] Work Phone: Start: 05-13-2024 ambulatory [facility] Start: 04-14-2024 End: 05-11-2024 [facility] Start: 02-21-2024 End: 02-21-2024 Office outpatient visit 25 minutes Sagar Krause MD Work Phone: [facility] Comment on above: Hx of total knee art hroplasty, left (Primary Dx); Pain in prosthetic joint, subsequent encounter Start: 02-21-2024 End: 02-21-2024 Subsequent hospital visit by physician Sagar Krause MD Work Phone: [facility] Start: 02-21-2024 ambulatory NETTA MONTOYA [facility] Start: 01-09-2024 End: 02-09-2024 [facility] Start: 12-26-2023 End: 01-09-2024 [facility] Start: 12-26-2023 End: 12-26-2023 Office outpatient visit 15 minutes Radha Asif OIL HEAT TECHNICIAN-MANAGER FITNESS Work Phone: [facility] Comment on above: Hx of total knee art hroplasty, left (Primary Dx) Start: 12-26-2023 End: 12-26-2023 Subsequent hospital visit by physician Radha Asif OIL HEAT TECHNICIAN-MANAGER FITNESS Work Phone: [facility] Start: 12-26-2023 ambulatory [facility] Start: 10-22-2023 End: 02-12-2024 ambulatory Siva Ron Other [employer] Other Start: 10-22-2023 Telephone encounter Siva sheriff [facility] Start: 08-13-2023 End: 08-13-2023 ambulatory Netta Montoya Other [employer] Other Start: 08-13-2023 Office outpatient visit 15 minutes Netta BAUMAN [facility] Start: 08-09-2023 End: 08-09-2023 Office outpatient visit 15 minutes Sagar Krause MD Work Phone: [facility] Comment on above: Post-op pain (Primar y Dx); Pain in prosthetic joint, subsequent encounter Start: 08-09-2023 End: 08-09-2023 Subsequent hospital visit by physician Sagar Krasue MD Work Phone: [facility] Start: 08-09-2023 ambulatory NETTA MONTOYA [facility] Start: 06-19-2023 End: 06-19-2023 ambulatory MD Netta Montoya Work Phone: [facility] Work Phone: Start: 06-19-2023 End: 06-19-2023 Patient encounter procedure MD Netta Montoya Work Phone: [facility] Work Phone: Start: 05-22-2023 End: 05-22-2023 ambulatory Siva Ron Other [employer] Other Start: 05-22-2023 Telephone encounter Siva sheriff [employer] [employer] Start: 05-09-2023 End: 05-09-2023 ambulatory MD Netta Montoya Work Phone: [facility] Work Phone: Start: 05-09-2023 End: 05-09-2023 Patient encounter procedure MD Netta Montoya Work Phone: [facility] Work Phone: Start: 04-26-2023 End: 04-26-2023 ambulatory Netta Montoya Other [employer] Other Start: 04-26-2023 Telephone encounter Netta Montoya [facility] Gastroenter[facility] Start: 04-24-2023 End: 04-24-2023 ambulatory Siva Ron Other [employer] Other Start: 04-24-2023 Office outpatient visit 25 minutes Siva Ron [facility] Gastroenter[facility] Start: 04-23-2023 End: 04-23-2023 ambulatory Netta Montoya Other [employer] Other Start: 04-23-2023 Telephone encounter Netta Montoya [facility] Start: 04-20-2023 End: 04-20-2023 ambulatory Netta Montoya Other [employer] Other Start: 04-20-2023 Telephone encounter Netta Montoya [facility] Start: 03-15-2023 End: 03-15-2023 ambulatory Siva Ron Other [employer] Other Start: 03-15-2023 Telephone encounter Siva Huggins [facility]astroenter[facility] Start: 02-22-2023 End: 02-22-2023 Postop follow up visit related to original ildefonso Asif OIL HEAT TECHNICIAN-MANAGER FITNESS Work Phone: [facility] Comment on above: Hx of total knee art hroplasty, left (Primary Dx) Start: 02-19-2023 End: 02-19-2023 ambulatory Netta Montoya Other [employer] Other Start: 02-19-2023 Telephone encounter Netta Montoya [facility] Start: 01-18-2023 End: 01-19-[address] Erin RON Facility:[facility] Start: 01-17-2023 End: 01-17-2023 ambulatory Siva Ron Other [employer] Other Start: 01-17-2023 Telephone encounter Siva sheriff [facility] Start: 01-16-2023 End: 01-16-2023 ambulatory Siva Ron Other [employer] Other Start: 01-16-2023 Telephone encounter Siva sheriff [facility] Start: 01-09-2023 Encounter for other preprocedural examination Netta Lindsay [facility] Start: 01-09-2023 Office outpatient visit 15 minutes Netta Lindsay [facility] Start: 01-09-2023 Telephone encounter Netta Lindsay [facility] Start: 01-09-2023 End: 01-10-[address] Erin RON [facility] [employer] Other Start: 01-08-2023 End: 01-08-[address] Erin RON Facility:[facility] Start: 01-02-2023 End: 01-02-2023 ambulatory Siva Ron Other [employer] Other Start: 01-02-2023 Telephone encounter Siva sheriff [employer] Start: 01-01-2023 End: 01-01-2023 ambulatory Siva Ron Other [employer] Other Start: 01-01-2023 Office outpatient ne w 45 minutes Siva Ron [facility] Start: 11-30-2022 End: 11-30-2022 Office outpatient new 60 minutes Sagar Krause MD Work Phone: [facility] Comment on above: Pain in prosthetic j oint, sequela (Primary Dx) Start: 11-30-2022 End: 11-30-2022 Subsequent hospital visit by physician Sagar Krause MD Work Phone: [facility] Start: 11-28-2022 End: 11-29-[address] CARA LEO Facility:[facility] Start: 11-09-2022 End: 11-10-2022 ambulatory BRI BERGER Facility:[facility] Start: 10-18-2022 End: 10-19-[address] CARA LEO Facility:[facility] Start: 10-10-2022 End: 10-10-2022 ambulatory Netta Montoya Other [employer] Other Start: 10-10-2022 Office outpatient visit 15 minutes Netta Montoya [facility] Start: 09-22-2022 End: 09-22-2022 ambulatory Netta Montoya Other [employer] Other Start: 09-22-2022 Telephone encounter Netta Montoya [facility] Start: 09-13-2022 End: 09-14-2022 ambulatory JANETT BALBUENA [employer] Other Start: 09-13-2022 Office outpatient visit 15 minutes Netta Montoya [facility] Start: 08-23-2022 End: 08-24-2022 ambulatory TONY DICKINSON Facility:[facility] Start: 08-22-2022 End: 08-23-2022 ambulatory JANETT BALBUENA Facility:[facility] Start: 08-08-2022 End: 08-09-[address] PELON ALEXANDRE Facility:[facility] Start: 08-01-2022 Adult health examination Netta Montoya Other [employer] Other Start: 08-01-2022 Gynecological examination normal Netta Montoya Other [employer] Other Start: 08-01-2022 Pre-procedure evaluation check Netta Montoya Other [employer] Other Start: 07-11-2022 End: 07-12-[address] NETTA MONTOYA Facility:[facility] Start: 07-05-2022 End: 07-06-2022 ambulatory BASILIO LANDEROS Facility:[facility] Start: 04-08-2022 End: 04-09-[address] DOCTOR DESHPANDE Facility:[facility] Start: 04-05-2022 ambulatory SABINA DELGADILLO . Facility:[facility] Start: 03-28-2022 Encounter for other preprocedural examination DR DOCTOR DESHPANDE [facility] Start: 03-27-2022 End: 03-28-[address] DOCTOR [...] RSV Vaccine (1 - 1-dose 75+ series) [facility] Start: 05-11-2025 Influenza vaccination Influenz a Vaccine (Season Ended) [facility] Start: 03-23-2025 End: 03-23-2025 Patient encounter procedure Radiology Comment on above: Left knee pain, unsp ecified chronicity [M25.562] Start: 12-15-2024 Advance Directive Discussion Advance Directive Discussion [facility] Start: 12-15-2024 Screening for osteoporosis Bone Density Screening [facility] Start: 09-30-2024 Cryptosporidium sp A g [Presence] in Stool by Immunoassay [facility] Start: 09-30-2024 Giardia lamblia Ag [Presence] in Stool by Immunoassay [facility] Start: 05-11-2024 Covid-19 Vaccine ( season) Covid-19 Vaccine ( season) [facility] Start: 05-11-2024 Influenza vaccination INFLUENZ A VACCINE (Season Ended) [facility] Start: 02-21-2024 End: 02-20-2025 REQUEST FOR MISC LAB SENDOUT REQUEST FOR MISC LAB SENDOUT Lab Routine Pain in prosthetic joint, subsequent encounter Expected: 02/21/2024, Expires: 02/20/2025 [facility] Comment on above: Expected: 02/21/2024 , Expires: 02/20/2025 Start: 01-30-2024 End: 01-30-2024 Patient encounter procedure 01/30/2024 1:00 PM EDT Office Visit [facility] [address] [place] [address] Radha Asif APRN-MANAGER FITNESS [address] [place] [address] [facility] Start: 08-09-2023 End: 09-06-2023 C-reactive protein C REACTIVE PROTEIN Lab Routine Pain in prosthetic joint, subsequent encounter Expected: 08/09/2023, Expires: 09/06/2023 [facility] Comment on above: Expected: 08/09/2023 , Expires: 09/06/2023 Start: 08-09-2023 End: 09-06-2023 SEDIMENTATION RATE, AUTOMATED SEDIMENTATION RATE, AUTOMATED Lab Routine Pain in prosthetic joint, subsequent encounter Expected: 08/09/2023 (Approximate), Expires: 09/06/2023 [facility] Comment on above: Expected: 08/09/2023 (Approximate), Expires: 09/06/2023 Start: 07-06-2023 Hemoglobin A1c measurement HBA1C TEST [facility] Start: 06-06-2023 End: 06-06-2023 Patient encounter procedure 06/06/2023 1:10 PM EDT Office Visit [facility] [address] [place] [address] Sagar Krause MD [address] [place] [address] [facility] Start: 05-11-2023 COVID-19 VACCINE ( season) COVID-19 VACCINE ( season) [facility] Start: 05-11-2023 Influenza vaccination A [facility] Start: 05-09-2023 [facility] Start: 01-04-2023 End: 01-04-2023 ambulatory 01/04/2023 Pre-Operative Nurse Assessment Internal Medicine [facility] Pre [facility] Start: 05-11-2022 Influenza vaccination INFLUENZA VACC INE (#1) [facility] Start: 12-15-2009 Pneumococcal Vaccine : 50+ (1 of 1 - PCV) Pneumococcal Vaccine: 50+ (1 of 1 - PCV) [facility] Start: 12-15-2009 Shingrix Vaccine (1 of 2) Fitzpatrick grix Vaccine (1 of 2) [facility] Start: 12-15-2009 Zoster vaccine hzv l ag for subcutaneous use ZOSTER (SHINGLES) VACCINE (1 of 2) [facility] Start: 12-15-2004 Diabetes Screening Diabetes Screenin g [facility] Start: 12-15-2004 Lipid panel Lipid Screening [facility] Start: 12-15-2004 Screening for malign ant neoplasm of colon [facility] Start: 1999 Lipid panel LIPID SCREENING [facility] Start: 1999 Screening for malign ant neoplasm of breast [facility] Start: 12-15-1980 Screening for malign ant neoplasm of cervix CERVICAL CANCER SCREENING DISCUSSION [facility] Start: 12-15-1978 Third diphtheria, te tanus and acellular pertussis (DTaP) vaccination TDAP (ADULT) [facility] Start: 12-15-1978 Urine microalbumin profile DTaP,Tdap,Td Vaccine (1 - Tdap) [facility] Start: 12-15-1977 Anxiety Screening Anxiety Screening [facility] Start: 12-15-1977 Depression Screening Depression Scre ening [facility] Start: 12-15-1977 Hepatitis C screening Hepatitis C Sc reening [facility] Start: 12-15-1977 HIV screening HIV Screening [facility] Start: 12-15-1974 HIV screening HIV SCREENING DISCUSSION [facility] Start: 06-16-1960 COVID-19 VACCINE (#1) COVID-19 VACCI NE (#1) [facility] Start: 1959 Diabetic foot examination DIABETIC F OOT EXAM [facility] Start: 1959 Glaucoma screening EYE EXAM [facility] Start: 1959 Hepatitis C screening HEPATITI S C VIRUS SCREENING [facility] Start: 1959 Lipid panel LIPIDS [facility] Start: 1959 Tetanus vaccination TETANUS [facility] Start: 1959 Thyroid stimulating hormone measurement TSH [facility] Start: 1959 Urine screening for protein URINE MICROALBUMIN TEST [facility] Comprehensive metabo lic 2000 panel - Serum or Plasma [facility] Radiography for bone length studies XR BONE LENGTH STUDY Imaging Routine Pain in prosthetic joint, sequela 11/30/2022 1:41 PM EDT [facility] Supine abdominal X-ray [facility] XR Knee - left 3 Views XR KNEE L EFT 3 VIEWS Imaging Routine Pain in prosthetic joint, sequela 11/30/2022 1:41 PM EDT [facility] Work Phone: XR Knee - left 3 Views XR KNEE L EFT 3 VIEWS Imaging Routine Hx of total knee arthroplasty, left 02/22/2023 2:50 PM EDT [facility] XR Knee - left 3 Views XR KNEE L EFT 3 VIEWS Imaging Routine Post-op pain 08/09/2023 2:03 PM EST [facility] XR Knee - left 3 Views XR KNEE L EFT 3 VIEWS Imaging Routine Hx of total knee arthroplasty, left 12/26/2023 1:43 PM EDT [facility] XR Knee - left 3 Views XR KNEE L EFT 3 VIEWS Imaging Routine Hx of total knee arthroplasty, left 02/21/2024 1:11 PM EDT [facility] End: 03-27-2026 XR Knee - left 4 Views XR KNEE GENERAL 4V AP BOTH/PA BOTH/LAT/MERC LEFT Radiology Routine Left knee pain, unspecified chronicity 1 Occurrences starting 02/25/2025 until 03/27/2026 [facility] Work Phone: Comment on above: 1 Occurrences starti ng 02/25/2025 until 03/27/2026 [facility] Payers Date Payer Category Payer Medicare [id number] 2025 Private Health Insurance [facility] [id number] 2021 Private Health Insurance 2015 Medicare [id number] 1959 Unknown [id number] 2.16.84 [id number] 1959 Unknown [id number] 2.16.84 [id number] 1959 Unknown [id number] 2.16.84 [id number] 1959 Unknown [id number] 2.16.84 [id number] 1959 Unknown [id number] 2.16.84 [id number] 1959 Unknown [id number] 2.16.84 0.1.318764.3.579.2.593 1959 Unknown [id number] 2.16.84 0.1.766991.3.579.2.593 1959 Unknown [id number] 2.16.84 0.1.875956.3.579.2.593 1959 Unknown [id number] 2.16.84 [id number] 1959 Unknown [id number] 2.16.84 0.1.195273.3.579.2.593 1959 Unknown [id number] 2.16.84 0.1.243931.3.579.2.593 1959 Unknown [id number] 2.16.84 [id number] 1959 Unknown [id number] 2.16.84 0.1.570070.3.579.2.593 1960 Unknown [id number] 2.16.84 0.1.708316.3.579.2.593 1960 Unknown [id number] 2.16.84 0.1.305444.3.579.2.593 1960 Unknown [id number] 2.16.84 0.1.303964.3.579.2.593 1960 Unknown [id number] 2.16.84 0.1.977512.3.579.2.593 1960 Unknown [id number] 2.16.84 0.1.312759.3.579.2.593 1959 Unknown [id number] 2.16.84 0.1.996309.3.579.2.593 1960 Unknown [id number] 2.16.8 40.1.737001.3.579.2.983 1960 Unknown [id number] 2.16.8 40.1.933470.3.579.2.983 1959 Unknown [id number] 2.16.8 40.1.849935.3.579.2.983 1960 Unknown [id number] 2.16.8 40.1.687270.3.579.2.983 1960 Unknown [id number] 2.16.8 40.1.365604.3.579.2.983 1959 Unknown [id number] 2.16.8 40.1.179219.3.579.2.983 1959 Unknown [id number] 2.16. 840.1.783006.3.579.2.1286 1960 Unknown [id number] 2.16. 840.1.754548.3.579.2.1286 1959 Unknown [id number] 2.16.8 40.1.582061.3.579.2.1286 1959 Unknown [id number] 2.16.8 40.1.567965.3.579.2.1286 1959 Unknown [id number] 2.16.8 40.1.877634.3.579.2.1286 1959 Unknown [id number] 2.16.8 40.1.827678.3.579.2.1286 1959 Unknown [id number] 2.16. 840.1.105904.3.579.2.196 1960 Unknown [id number] 2.16. 840.1.248014.3.579.2.196 1959 Unknown [id number] 2.16. 840.1.534575.3.579.2.196 1959 Unknown [id number] 2.16. 840.1.436712.3.579.2.196 1960 Unknown [id number] 2.16. 840.1.626640.3.579.2.196 1960 Medicare [id number] 2. 16.840.1.513524.19 Unknown [facility] [id number] Social History Date Type Detail Facility Unknown if ever smoked [employer] Other Start: 02-22-2023 End: 04-07-2025 Sex Assigned At [employer] Other Start: 11-30-2022 End: 07-25-2024 Tobacco smoking status NHIS Never smoked tobacco [facility] Start: 11-30-2022 Tobacco use and exposure Smokeless tobacco non-user [facility] Start: 11-30-2022 End: 02-21-2024 Alcohol intake Ex-drinker (finding) [facility] Start: 1960 Sex Assigned At Not on file A [facility] Start: 02-22-2023 End: 12-26-2023 History of Social function [facility] Start: 01-19-2023 End: 01-29-2023 Exposure to SARS-CoV-2 (event) Not sure [facility] Start: 1960 Sex Assigned At Female F [facility] Start: 10-01-2024 Sex Patient sex un known (finding) [facility] Start: 10-21-2024 End: 12-27-2024 Sex Female (finding) [facility] Start: 10-11-2015 Alcoholic beverage intake Current non-drinker of alcohol (finding) [facility] Medical Equipment Procedure Code Equipment Code Equipment Origin al Text Equipment Identifier Dates One Touch Ultra Test Strips Insert - Knee - [id number] Start: 01-29-2023 Patella - Knee - [id number] Start: 01-29-2023 Revision Pressfi t Stem 12mmx 60 [id number] Start: 01-29-2023 Revision Tibial Base Sz 2 [id number] Start: 01-29-2023 Rev Offset Stem 2mm [id number] Star t: 01-29-2023 Rev Distal Femor al Augment Sz 5 4mm [id number] Start: 01-29-2023 Rev Crs Femoral Sz 5 Left [id number] Start: 01-29-2023 Palacos R 1 X 40 Us - [id number] Start: 01-29-2023 Palacos R & G Smooth ne Cement High-Viscosity With Gentamicin - [id number] Start: 01-29-2023 Blood Sugar Diagnostic (Onetouch [...] Result Facility 04-07-2025 Functional Status Yes [employer] Work Phone: 04-07-2025 dependent [employer] Work Phone: Mental Status Date Assessment Result Facility 04-07-2025 Cognitive Function [facility] [employer] Work Phone: Clinical Notes 03-08-2022 to 04-06-2025 [...] 10:03am Restless leg syndrome resolved Apr 10:03am [facility] Work Phone: 1(188) 283-848607-28-2025 Evaluation note* Diagnosis Onset Date Resolution Status [...] 10:03am Restless leg syndrome resolved Apr 10:03am [facility] Work Phone: 1(457) 546-863107-28-2025 Evaluation note* Diagnosis Onset Date Resolution Status [...] 2:28pm Numbness and tingling acute Apr 2:28pm [facility] Work Phone: 1(258) 175-851705-22-2025 NoteReceived referral again for same dx. LVM for pt to call clinic to schedule consult with Dr. Mccord to discuss SCS. Please let gag writer know when scheduled. [facility] will need notified. Imaging obtained.[facility] 10-21-2024 Evaluation note* Diagnosis Onset Date Resolution [...] and diarrhea acute December 26, 2024 10:06am [facility] Work Phone: 1(555) 795-900002-11-2025 Evaluation note* Diagnosis Onset Date Resolution Status [...] and diarrhea acute December 26, 2024 10:06am [facility] Work Phone: 1(516) 814-589601-21-2025 Evaluation note* Diagnosis Onset Date Resolution Status [...] h hyperglycemia acute December 10, 2024 8:54am [facility] Work Phone: 1(139) 377-934311-19-2024 Evaluation note* Diagnosis Onset Date Resolution Status [...] B12 deficiency acute Fe bruary 2024 8:57am [facility] Work Phone: 1(615) 559-962011-07-2024 Evaluation note* Diagnosis Onset Date Resolution Status [...] 1:49pm Nausea acute September 30, 2024 1:49pm [facility] Work Phone: 1(876) 850-503406-13-2024 History of Present illness Narrative* Sandra Canales [...] 02/21/2024 1:17 PM Patient: Emily Macias MR#: [id number] : 1960 Age: 63 y.o. Referring Physician: [...] daily. 60 capsule 0 Cholecalciferol 250 MCG (24935 UT) capsule capsule Take by mouth daily. [...] DR tablet Take by mouth daily. Pancrelipase, Xvv-Tiow-Mcgy, (CREON PO) Take 36,000 Units by mouth. [...] by Nasal route once for 1 dose. Goff into the nose as directed. Call 911. [...] 60 capsule, Rfl: 0 Cholecalciferol 250 MCG (09554 UT) capsule capsule, Take by mouth daily., [...] by mouth daily., Disp: , Rfl: Pancrelipase, Qyy-Bbfi-Xzvp, (CREON PO), Take 36,000 Units by mouth. [...] by Nasal route once for 1 dose. Goff into the nose as directed. Call 911. 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 Should she need additional [...] have reviewed the findings of the clinical applications support lead and agree with their assessment. Ortho Nurse - Established Patient Intake Room#: 2 Pt is here for left knee pain ( LTKA revision 01/30/24. Pt states that she is still having pain in her knee. Pain is 4-5. Pt did physical therapy, and took the medication but no relief. Pt would like to discuss options Date: 02/21/2024 1:17 PM Patient: Emily Macias MR#: [id number] : 1960 Age: 63 y.o. Referring Physician: [...] daily. 60 capsule 0 Cholecalciferol 250 MCG (49362 UT) capsule capsule Take by mouth daily. [...] DR tablet Take by mouth daily. Pancrelipase, Llh-Gntg-Qggz, (CREON PO) Take 36,000 Units by mouth. [...] by Nasal route once for 1 dose. Goff into the nose as directed. Call 911. [...] 60 capsule, Rfl: 0 Cholecalciferol 250 MCG (00015 UT) capsule capsule, Take by mouth daily., [...] by mouth daily., Disp: , Rfl: Pancrelipase, Kbk-Jhte-Wfta, (CREON PO), Take 36,000 Units by mouth. [...] by Nasal route once for 1 dose. Goff into the nose as directed. Call 911. [...] zanaflex [tizanidine], and vancomycin. [facility] History of Present illness Narrative* Raven Mera - 12/26/2023 2:00 PM EDT Ortho Nurse - Established Patient Intake Room#: 5 Date: 12/26/2023 1:55 PM Patient: Emily Macias MR#: [id number] : 1960 Age: 63 y.o. 1yr L [...] daily. 60 capsule 0 Cholecalciferol 250 MCG (59415 UT) capsule capsule Take by mouth daily. [...] DR tablet Take by mouth daily. Pancrelipase, Krd-Tyae-Gsqq, (CREON PO) Take 36,000 Units by mouth. [...] by Nasal route once for 1 dose. Goff into the nose as directed. Call 911. [...] 60 capsule, Rfl: 0 Cholecalciferol 250 MCG (90720 UT) capsule capsule, Take by mouth daily., [...] by mouth daily., Disp: , Rfl: Pancrelipase, Qfy-Xbxh-Yarr, (CREON PO), Take 36,000 Units by mouth. [...] by Nasal route once for 1 dose. Goff into the nose as directed. Call 911. [...] She thinks she had that done at [facility]. We will try and obtain those [...] up with Dr. Krause for clinical examination. (DOC:[id number]) I have reviewed the findings of the clinical applications support lead and agree with their assessment. Radha Asif APRN-KEIRA Ortho Nurse - Established Patient Intake Room#: 5 Date: 12/26/2023 1:55 PM Patient: Emily Macias MR#: [id number] : 1960 Age: 63 y.o. 1yr L TKA Pt stated her knee has been locking on her and has pain 5/10. Pt stated she is almost always a 4-5/10 on the pain scale. Referring Physician: Self, Self Insurance: Payor: MEDICARE [employer]q HMO [place] PPO / Plan: MEDICARE [employer]ET[employer]obiq HMO / Product Type: *No Product type* [...] daily. 60 capsule 0 Cholecalciferol 250 MCG (70612 UT) capsule capsule Take by mouth daily. [...] DR tablet Take by mouth daily. Pancrelipase, Zbo-Sxgl-Cjyk, (CREON PO) Take 36,000 Units by mouth. [...] by Nasal route once for 1 dose. Goff into the nose as directed. Call 911. [...] 60 capsule, Rfl: 0 Cholecalciferol 250 MCG (29775 UT) capsule capsule, Take by mouth daily., [...] by mouth daily., Disp: , Rfl: Pancrelipase, Wgh-Pmhp-Cagf, (CREON PO), Take 36,000 Units by mouth. [...] by Nasal route once for 1 dose. Goff into the nose as directed. Call 911. [...] zanaflex [tizanidine], and vancomycin. documented in this encounterA[facility]12-[facility] Evaluation note* Encounter Date Diagnosis Assessment Notes Treatment Notes Treatment Clinical Notes Aug, Piriformis syndrome, right (ICD-10 - G57.01) Pt declines PT at this time. Gave handouts for exercises and use flexeril qhs. Aug, Trochanteric bursitis, right hip (ICD-10 - M70.61) Pt declines PT. Muscle relaxer and handouts given. [facility] Other 11-30-2023 History of Present illness Narrative* [...] 08/09/2023 2:58 PM Patient: Emily Macias MR#: [id number] : 1960 Age: 62 y.o. Referring Physician: Sagar Krause MD Insurance: Payor: MEDICARE [employer]aily HMO [place] PPO / Plan: MEDICARE [employer]ETRoobiq O / Product Type: *No Product type* [...] DR tablet Take by mouth daily. Pancrelipase, Zti-Toed-Lvtz, (CREON PO) Take 36,000 Units by mouth. [...] taking: Reported on 08/09/2023) Cholecalciferol 250 MCG (88012 UT) capsule capsule [...] by Nasal route once for 1 dose. Goff into the nose as directed. Call 911. [...] have reviewed the findings of the clinical applications support lead and agree with their assessment. Ortho Nurse [...] 08/09/2023 2:58 PM Patient: Emily Macias MR#: [id number] : 1960 Age: 62 y.o. Referring Physician: [...] DR tablet Take by mouth daily. Pancrelipase, Baf-Owxn-Ryxg, (CREON PO) Take 36,000 Units by mouth. [...] taking: Reported on 08/09/2023) Cholecalciferol 250 MCG (76769 UT) capsule capsule Take by mouth daily. [...] by Nasal route once for 1 dose. Goff into the nose as directed. Call 911. [...] zanaflex [tizanidine], and vancomycin. documented in [facility] Evaluation note* Encounter Date Diagnosis Assessment Notes Treatment Notes Treatment Clinical Notes Apr, Abdominal cramping (ICD-10 - R10.9) Patient reports doing well Apr, Diverticulosis (ICD-10 - K57.90) Apr, Alternating constipation and diarrhea (ICD-10 - R19.8) Apr, Pancreatic atrophy (ICD-10 - K86.89) Apr, Fatty liver (ICD-10 - K76.0) [facility] Other 08-11-2023 Evaluation note* Encounter Date Diagnosis Assessment Notes Treatment Notes Treatment Clinical Notes Apr, Type 2 diabetes mellitus with hyperglycemia, without long-term current use of insulin (ICD-10 - E11.65) [facility] Other 06-15-2023 History of Present illness Narrative* [...] 02/22/2023 3:16 PM Patient: Emily Macias MR#: [id number] : 1960 Age: 62 y.o. Referring Physician: [...] daily. 84 capsule 0 Cholecalciferol 250 MCG (05994 UT) capsule capsule Take by mouth daily. [...] by Nasal route once for 1 dose. Goff into the nose as directed. Call 911. If no response in 2 minutes use a new nasal spray in other nostril. Repeat until help arrives. 1Each [address] Omep[address] tablet Take by mouth daily. oxyCODONE 5 MG tablet Take 1-2 tabs po q 4-6 hours prn pain. Wean as tolerated. 20 tablet 0 Pancrelipase, Gzt-Xmmj-Hhky, (CREON PO) Take 36,000 Units by mouth. [...] 84 capsule, Rfl: 0 Cholecalciferol 250 MCG (29278 UT) capsule capsule, Take by mouth daily., [...] by Nasal route once for 1 dose. Goff into the nose as directed. Call 911. [...] tolerated., Disp: 20 tablet, Rfl: 0 Pancrelipase, Hom-Prex-Iejd, (CREON PO), Take 36,000 Units by mouth. [...] zanaflex [tizanidine], and vancomycin. * Radha Asif APRN-MANAGER FITNESS - 02/22/2023 3:00 PM EDT HPI: Emily [...] understanding. All pertinent portions of the clinical applications support lead documentation was reviewed and agree. DANIELLE Gimenez I have reviewed the findings of the clinical applications support lead and agree with their assessment. DANIELLE Gimenez Ortho Nurse - Established Patient Intake Room#: 5 Patient is S/P L knee medial/partial revision to TKA. Patient using walker today and penelope hose are in place. She states the worse pain is at HS while trying to sleep. Sitting pain 4/10 Walking pain is 5/10 Date: 02/22/2023 3:16 PM Patient: Emily Macias MR#: [id number] : 1960 Age: 62 y.o. Referring Physician: Radha Asif APRN-CNP Insurance: Payor[facility] / Plan: MEDICARE AETRoobiq O / Product Type: *No Product type* [...] daily. 84 capsule 0 Cholecalciferol 250 MCG (55185 UT) capsule capsule Take by mouth daily. [...] by Nasal route once for 1 dose. Goff into the nose as directed. Call 911. If no response in 2 minutes use a new nasal spray in other nostril. Repeat until help arrives. 1Each 0 Omeprazole [address] tablet Take by mouth daily. oxyCODONE 5 MG tablet Take 1-2 tabs po q 4-6 hours prn pain. Wean as tolerated. 20 tablet 0 Pancrelipase, Haw-Xjih-Iicf, (CREON PO) Take 36,000 Units by mouth. [...] 84 capsule, Rfl: 0 Cholecalciferol 250 MCG (38619 UT) capsule capsule, Take by mouth daily., [...] by Nasal route once for 1 dose. Goff into the nose as directed. Call 911. [...] tolerated., Disp: 20 tablet, Rfl: 0 Pancrelipase, Hvc-Sjcc-Yhvq, (CREON PO), Take 36,000 Units by mouth. [...] zanaflex [tizanidine], and vancomycin. documented in this encounterA[facility]05-[facility] Evaluation note* Encounter Date Diagnosis Assessment Notes Treatment Notes Treatment Clinical Notes January, Alternating constipation and diarrhea (ICD-10 - R19.8) [facility] Other 05-02-2023 Evaluation note* Encounter Date Diagnosis [...] of Farxiga and pt will trial those. [facility] Other 04-24-2023 Evaluation note* Encounter Date Diagnosis [...] scan in October of last year in [place], following a colonoscopy that was done in September Start Mesalamine Dec, Alternating constipation and diarrhea (ICD-10 - R19.8) Start low fod map diet Start probiotics [employer] Other 03-23-2023 History of Present illness Narrative* [...] 11/30/2022 2:13 PM Patient: Emily Macias MR#: [id number] : 1960 Age: 61 y.o. Referring Physician: Self, Self Insurance: Payor: MEDICARE [employer]obiq HMO [place] PPO / Plan: MEDICARE [employer]obiq HMO / Product Type: *No Product type* [...] [x]cane, []bracing Are you followed by a backpackers manager? [] [x] Name: Are you followed by pain management? [] [x] Name: Are you followed by any other specialists? [x] [] Name: RA Dr Felipa Santana Outpatient Medications Prior to Visit Medication Sig Dispense Refill Ascorbic Acid 1000 MG tablet Take 1 tablet by mouth daily. B Complex Vitamins (B COMPLEX 1 PO) Take by mouth. Biotin 48247 MCG tablet Take by mouth. Cholecalciferol 250 MCG (46082 UT) capsule capsule Take by mouth. Cobalamin [...] Take by mouth., Disp: , Rfl: Biotin 85452 MCG tablet, Take by mouth., Disp: , Rfl: Cholecalciferol 250 MCG (34195 UT) capsule capsule, Take by mouth., Disp: [...] symptoms. She has history of partial medial [place] uni knee on 08/13/[address] Lazar. [...] left knee. She has a medial partial [place] uni-arthroplasty in place with severe adjacent patellofemoral arthritis. IMPRESSION: 1.) History of left partial medial [place] uni knee on 08/13/[address] Lazar. 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 We have discussed in great detail [...] of limb, and ultimately loss of life. [facility] expectations, risks and general implant survivorship were also discussed. Despite these risks, the patient would liketo proceed with surgical planning. Today, we will initiate the pre-surgical process including nasalMRSA screening, scheduling an appointment for [facility] and the potential surgical date, andreviewing and [...] Take by mouth., Disp: , Rfl: Biotin 54847 MCG tablet, Take by mouth., Disp: , Rfl: Cholecalciferol 250 MCG (44745 UT) capsule capsule, Take by mouth., Disp: [...] migraines Zanaflex [Tizanidine] Hallucination documented in this [facility]01-31-2023 Evaluation note* Encounter Date Diagnosis Assessment Notes Treatment Notes Treatment Clinical Notes Sep, Fibromyalgia (ICD-10 - M79.7) handicap placard rx handwritten Sep, Type 2 diabetes mellitus with hyperglycemia, without long-term current use of insulin (ICD-10 - E11.65) good readings on home meter with present meds. Sep, Positive ADRI (antinuclear antibody) (ICD-10 - R76.8) Suggested getting on cancellation list at [facility] [employer] Other 01-13-2023 Evaluation note* Encounter Date Diagnosis Assessment Notes Treatment Notes Treatment Clinical Notes Sep, Positive ADRI (antinuclear antibody) (ICD-10 - R76.8) Sep, Fibromyalgia (ICD-10 - M79.7) [facility] Other 01-04-2023 Evaluation note* Encounter Date Diagnosis Assessment Notes Treatment Notes Treatment Clinical Notes Sep, Abdominal cramping (ICD-10 - R10.9) Sep, Type 2 diabetes mellitus with hyperglycemia, without long-term current use of insulin (ICD-10 - E11.65) advised holding or decreasing dose of ozempic to 0.25/week as this could relate to GI side effects [facility] Other 10-31-2022 NotePROCEDURE: XR TIB_FIB RT 2V COMPARISON: 08/24/2021 HISTORY: Pain in lower limb FINDINGS: BONES:No acute fracture or dislocation. Degenerative changes of the knee and ankle. Enthesopathic spurring of the calcaneus SOFT TISSUES:Negative. No visible soft tissue swelling. EFFUSION:None visible. OTHER: Negative. IMPRESSION: Osteoarthritis Electronically authenticated by: WANDA DIANE Date: 2022-07-10 13:36[facility]06-29-2022 NoteCONSULTATION CONSULTATION DATE: 03/08/2022 HISTORY OF PRESENT [...] of pain. 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 [...] care and would like to move forward. [facility] Signed and Approved by: SABINA DELGADILLO . 03/09/2022 13:38:00[facility]* Diagnosis Pain in prosthetic joint, sequela- Primary documented in this encounter [facility]Eval[facility] noteNo InformationNort [employer] Other Evaluation note* Diagnosis Hx of total knee arthroplasty, left- Primary documented in this encounter [facility]Eval[facility] noteNo assessment information availableTrinity [facility] Work Phone: Evaluation note* Diagnosis Post-op pain- Primary Other acute postoperative pain Pain in prosthetic joint, subsequent encounter documented in this encounter [facility]* Diagnosis Hx of total knee arthroplasty, left- Primary documented in this encounter [facility]* Diagnosis Hx of total knee arthroplasty, left- Primary Pain in prosthetic joint, subsequent encounter documented in this encounter [facility]* Diagnosis Left knee pain, unspecified chronicity- Primary documented in this encounter [facility] general Narrative - Reported* Type Description Date [...] diabetes divya itus with hyperglycemia, unspecified whether long-term insulin use Medical History Fitzpatrick splints, right, [...] AND ADENOIDECTOMY Hospitalization History mono Hospitalization History [employer] Other History general Narrative - Reported* Type [...] diabetes divya itus with hyperglycemia, 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 whether 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 * Diagnostic X-Ray (Routine) - New Request Specialty Diagnoses / Procedures Referred By Westley finnegan Referred To Contact Diagnoses Hx of total knee arthroplasty, left Procedures XR KNEE LEFT 3 VIEWS Radha Asif APRN-CNP [address] [place] [address] Referral ID Status Reason Start Date Expiration Date V isits Requested Visits Authorized [id number] New Request 02/20/2023 03/16/2024 1 1 [facility]Reason [facility] (narrative)No reason for referral information availableMer[facility] Work Phone: Summary Purpose Family History Relationship [...] 1 Abdominal cramping ( R10.9) Referral Organization [facility] reginaldo Referring Provider First Name Netta Referring Provider Last Name Lindsay Referring Provider Specialty Family [facility] Referred Organization [facility] Referred Provider Ismael Early Referred Address [address] [place], [place],[address] Referred Provider Specialty Gastroentero logy Referral Priority Routine Referral Appointment Date 2022-12-28 General Notes Sonali Cortez 10:30:02 AM >received today, notes locked and referral faxed Sonali Cortez 09/25/2022 10:48:23 AM >pt scheduled Reason 11/21/22 See phone note - this is related to a clinical services consultant in [place] area testing labs. I do not have a copy of his labs. Diagnosis 1 Positive ADRI (antinu clear antibody) (R76.8) Referral Organization [facility] reginaldo Referring Provider First Name Netta Referring Provider Last Name Lindsay Referring Provider Specialty Family Medi cine Referred Organization [facility] Referred Provider Cara Leo Referred Address [address] [place],[address] Referred Provider Specialty Rheumatology Referral Priority Routine Referral Appointment Date 2022-11-21 General Notes Sonali Cortez 09:22:28 AM >received today, notes attached and ins card attached. will call pt to see who she saw in [place] to get labs. Sonali Cortez 09/25/2022 10:37:57 AM >spoke with patient and was provided Dr. Balbuena phone number [phone] to request labs. told patient I would [...] BONE LENGTH STUDY Sagar Krause MD [address] [place] [address] Referral ID Status Reason Start Date Expiration Date V isits Requested Visits Authorized [id number] New Request 11/24/2022 12/19/2023 1 1 Specialty Diagnoses / Procedures Referred By Westley finnegan Referred To Contact Diagnoses Pain in prosthetic joint, sequela Procedures XR KNEE LEFT 3 VIEWS Sagar Kraues MD [address] [place] [id number] Referral ID Status Reason Start Date Expiration Date V isits Requested Visits Authorized [id number] New Request 11/24/2022 12/19/2023 1 1 Specialty Diagnoses / Procedures Referred By Contac t Referred To Contact Diagnoses Post-op pain Procedures XR KNEE LEFT 3 VIEWS Sagar Krause MD [address] [place] [address] Referral ID Status Reason Start Date Expiration Date V isits Requested Visits Authorized [id number] New Request 08/06/2023 08/30/2024 1 1 Specialty Diagnoses / Procedures Referred By Contac t Referred To Contact Diagnoses Hx of total knee arthroplasty, left Procedures XR KNEE LEFT 3 VIEWS Radha Asif, OIL HEAT TECHNICIAN-MANAGER [employer] [address] [place] [id number] Referral ID Status Reason Start Date Expiration Date V isits Requested Visits Authorized [id number] New Request 12/25/2023 01/18/2025 1 1 Specialty Diagnoses / Procedures Referred By Contac t Referred To Contact Diagnoses Hx of total knee arthroplasty, left Procedures XR KNEE LEFT 3 VIEWS Sagar Krause MD [address] [place] [id number] Referral ID Status Reason Start Date Expiration Date V isits Requested Visits Authorized [id number] New Request 02/14/2024 03/10/2025 1 1 Chief [...] 1:45pm Type 2 diabetes mellitus with [facility]ce [facility] July 29, 2024 9:30am Abdominal cramping August [...] Date Type 2 diabetes mellitus with hyperglyce [facility] July 29, 2024 9:30am Abdominal cramping August [...] 9:09 am GERD (gastroesophageal reflux disease) [facility] 2024 9:09am History of pancreatitis April 06, [...] 6 wk F/U Alternating bowel habits/GERD [facility] 2024 9:09am luis/ insomnia/ 30 mins April 21, 2025 10:03am EMG LLE per Dr. Kleber Gotti May 062024 2:28pm Reason for Visit Admit Date Fecal urgency April 06, 2025 9:09 am GERD (gastroesophageal reflux disease) [facility] 2024 9:09am History of pancreatitis April 06, [...] 6 wk F/U Alternating bowel habits/GERD [facility] 2024 9:09am luis/ insomnia/ 30 mins April [...] section and content) DATE CREATED AUTHOR 09/08/2021 [facility] DATE CREATED AUTHOR AUTHOR'S ORGANIZ ATION 01/23/2023 [facility] DATE CREATED AUTHOR AUTHOR'S ORGANIZ ATION [facility] DATE CREATED AUTHOR AUTHOR'S ORGANIZ ATION 09/22/2024 [facility] DATE CREATED AUTHOR AUTHOR'S ORGANIZ ATION 12/28/2024 [facility] DATE CREATED AUTHOR AUTHOR'S ORGANIZ ATION 02/05/2025 [facility] DATE CREATED AUTHOR AUTHOR'S ORGANIZ ATION 02/16/2025 [facility] REASON FOR VISIT (unrecogniz ed section and content) Specialty Diagnoses / Procedures Referred By Westley finnegan Referred To Contact Diagnoses Pain in prosthetic joint, sequela Procedures XR BONE LENGTH STUDY Sagar Krause MD [address] [place] [id number] Referral ID Status Reason Start Date Expiration Date V isits Requested Visits Authorized [id number] New Request 11/24/2022 12/19/2023 1 1 Reason Comments Pain Reason Comments Surgical Follow-up Specialty Diagnoses / Procedures Referred By Westley finnegan Referred To Contact Diagnoses Post-op pain Procedures XR KNEE LEFT 3 VIEWS Sagar Krause MD [address] [place] [id number] Referral ID Status Reason Start Date Expiration Date V isits Requested Visits Authorized [id number] New Request 08/06/2023 08/30/2024 1 1 Reason Comments Pain Specialty Diagnoses / Procedures Referred By Contac t Referred To Contact Diagnoses Hx of total knee arthroplasty, left Procedures XR KNEE LEFT 3 VIEWS Radha Asif, ALVARO-KEIRA [address] [place] [address] Referral ID Status Reason Start Date Expiration Date V isits Requested Visits Authorized [id number] New Request 12/25/2023 01/18/2025 1 1 Reason Comments Follow-up Specialty Diagnoses / Procedures Referred By Contac t Referred To Contact Diagnoses Hx of total knee arthroplasty, left Procedures XR KNEE LEFT 3 VIEWS Sagar Krause MD [address] [place] [address] Referral ID Status Reason Start Date Expiration Date V isits Requested Visits Authorized [id number] New Request 02/14/2024 03/10/2025 1 1 Care [...] April 06, 2025 End: April 06, 2025 Crm Solution Architect Relationship Specialty Start Date End Date Netta Montoya MD [address] [place] [address] PCP - General Family Medicine 10/20/22 Crm Solution Architect Relationship Specialty Start Date End Date Netta Montoya MD [address] [place] [address] PCP - General Family Medicine 10/20/22 Crm Solution Architect Relationship Specialty Start Date End Date Netta Montoya MD [address] [place] [phone] PCP - General Family Medicine 10/20/22 Team Status: Inactive Member Role Status Dates Siva Ron MD Attending Provider Active Netta Montoya MD Primary Care Provider Active Team Status: Inactive Member Role Status Dates Netta Montoya MD Primary Care Provider Active Cara Leo MD Attending Provider Active Crm Solution Architect Relationship Specialty Start Date End Date Nteta Montoya MD [address] [place] [address] PCP - General Family Medicine 10/20/22 Crm Solution Architect Relationship Specialty Start Date End Date Netta Montoya MD [address] [place] [phone] PCP - General Family Medicine 10/20/22 Crm Solution Architect Relationship Specialty Start Date End Date Netta Montoya MD [address] [place] [address] PCP - General Family Medicine 10/20/22 Crm Solution Architect Relationship Specialty Start Date End Date Netta Montoya MD [address] [place] [address] PCP - General Family Medicine 10/20/22 Team [...] December 26, 2024 End: December 26, 2024 Crm Solution Architect Relationship Specialty Start Date End Date Andrew Berg [facility] [address] [place] [address] PCP - General 12/20/00 Daniel Castillo [address] [place] [address] Pain Management 02/25/25 Team Status: Inactive Member [...] or prosecute any alcohol or drug abuse patient.[facility] FOR RECORDS PERTAINING TO PATIENTS WHO ARE [...] BE BASED ON THE PRIMARY CLINICAL RECORDS. [facility]. provides no warranty or guarantee of the accuracy or completeness of information in this document.
--- OUTSIDE RECORDS SUMMARY | 2025-06-23 11:49 | XMS_ITS | Encounter Summary ---
Author Organization [employer] [facility] tem Address [id number] [address] [place] [address] Care Team Providers Care Manager Mental Health Name Role Phone Soila Joseph MD Primary Care Provider Reason for Visit * Reason Comments Med Refill Encounter Details Date Type Department Care Team (Late st Contact Info) Description 09/07/2017 Refill [facility] [address] [place] [phone] Jerrod Juan PA [address] [facility], [address] [place] [address] Social History Tobacco Use Types Packs/Day Years [...] on filedocumented in this encounter Care Teams Manager Mental Health Relationship Specialty Start Date End Date Soila Joseph MD [address] [place] [address] PCP - General Family Medicine 11/18/20 documented as of this encounter
--- OUTSIDE RECORDS SUMMARY | 2025-06-23 11:49 | XMS_ITS | Encounter Summary ---
Author Organization [facility] tem Address [id number] [address] [place] [address] Care Team Providers Care Skip Tracer Name Role Phone Soila Joseph MD Primary Care Provider [phone] Reason for Visit * Reason Comments Med Refill Encounter Details Date Type Department Care Team (Late st Contact Info) Description 02/21/2018 Refill [facility] [address] [place] [phone] Jerrod Juan PA [address] [facility] [place] [address] Social History Tobacco Use Types Packs/Day Years [...] on filedocumented in this encounter Care Teams Skip Tracer Relationship Specialty Start Date End Date Soila Joseph MD [address] [place] [address] PCP - General Family Medicine 11/18/20 documented as of this encounter
--- OUTSIDE RECORDS SUMMARY | 2025-06-23 11:49 | XMS_ITS | Encounter Summary ---
Author Organization [employer] tem Address [id number] [address] [place] [address] Care Team Providers Care Mutual Fund Accountant Name Role Phone Soila Joseph MD Primary Care Provider [phone] Encounter Details Date Type Department Care Team (Late st Contact Info) Description 10/28/2020 Orders Only [facility] [address] [place] [phone] External, Scanning Provider Social History Tobacco Use [...] Multiple labs (10/19/2020) us Scanning Provider External [facility] Final Result Performing Organization Address City/[facility] Co de Phone Number MANUALLY TRANSCRIBED RESULTS documented in this encounter Visit Diagnoses Not on filedocumented in this encounter Care Teams Mutual Fund Accountant Relationship Specialty Start Date End Date Soila Joseph MD [address] [place] [address] PCP - General Family Medicine 11/18/20 documented as of this encounter
[2025-06-23 12:27] LABS: Hematocrit 43.6 % (36.0-48.0); Hemoglobin 15.1 g/dL (12.0-16.0); Immature Granulocytes Abs Auto 0.02 10^3/uL (0.00-0.03); Immature Granulocytes Pct Auto 0.2 % (0.0-0.5); Lymphocytes Absolute Auto 1.8 10^3/uL (1.2-3.8); Mean Corpuscular HGB Conc 34.6 g/dL (29.9-35.2); Mean Corpuscular Hemoglobin 31.4 pg (26.7-34.0); Mean Corpuscular Volume 90.6 fL (81.0-99.0); Platelet Count 321 10^3/uL (150-450); Red Blood Count 4.81 10^6/uL (4.20-5.40); White Blood Count 8.6 10^3/uL (4.0-11.0)
[2025-06-23 13:29] LABS: Alanine Aminotransferase 33 U/L (14-59); Albumin Globulin Ratio 1.1; Albumin Level 4.1 g/dL (3.4-5.0); Alkaline Phosphatase 77 U/L (46-116); Anion Gap 12.9; Aspartate Amino Transferase 18 U/L (15-37); Blood Urea Nitrogen 18.0 mg/dL (7.0-18.0); Calcium 9.7 mg/dL (8.5-10.1); Carbon Dioxide 28.9 mmol/L (21.0-32.0); Chloride 103 mmol/L (98-107); Estimated GFR (African America >60 (>=60 mL/min/1.73m^2); Estimated GFR (Non-African Ame >60 (>=60 mL/min/1.73m^2); Globulin 3.7 g/dL; Glucose 131 mg/dL (74-106); Potassium 4.8 mmol/L (3.5-5.1); Sodium 140 mmol/L (136-145); Thyroid Stimulating Hormone 1.763 uIU/mL (0.358-3.740); Total Protein 7.8 g/dL (6.4-8.2)
== END 2025-06-23 11:42 | disposition home or self-care (01) ==
LOC: LAB 11:43
PROVIDERS: PCP Family Medicine; Visit Provider Family Medicine
DX: E83.51 Hypocalcemia (principal); Z79.4 Long term (current) use of insulin; E11.65 Type 2 diabetes mellitus with hyperglycemia; L29.9 Pruritus, unspecified; E03.9 Hypothyroidism, unspecified
CPT/HCPCS: 36415; 80053; 83036; 84439; 84443; 85025

== ENCOUNTER 2025-07-29 09:14 | Outpatient (OUT) | payer MEDICARE, SELFPAY ==
--- NOTE | 2025-07-29 09:19 | MR_ITS ---
[address] [address] Patient Name: EMILY MACIAS MRN: [id number] date: 1960 Sex: F Assigned Patient Location: MRI Current Patient Location: MRI Accession/Order Number: [id number] Exam Date: 07/29/2025 10:30 Report Date: 07/29/2025 13:22 At the request of: GRAYSON BOWEN MD Procedure: MR hip RT wo con EXAMINATION: MRI OF THE RIGHT HIP CLINICAL HISTORY: Right Hip Pain COMPARISON: Right hip 05/20/2024 TECHNIQUE: Multiecho, multiplanar imaging was performed with use of an extremity coil. No contrast was administered. FINDINGS: Bones/Joint: Minimal joint effusion. No fracture. No bone marrow edema. No avascular necrosis. No significant joint spurring. Pubic rami appear grossly intact. Labrum: Normal Muscles: Normal Soft tissues: Normal Pelvic contents: Normal MR/MR hip RT wo con IMPRESSION: MINIMAL JOINT EFFUSION. NO FRACTURE, BONE CONTUSION OR AVASCULAR NECROSIS. Impression dictated by: Bar [place] Jr. DMonalisaOMonalisa 07/29/2025 1:22 PM Dictation Location: [place] [address] Electronically authenticated by: [id number] Y Date: 07/29/2025 13:22
--- OUTSIDE RECORDS SUMMARY | 2025-07-29 09:21 | XMS_ITS | CCD ---
Author Organization [facility] Care Team Providers Care Sod Stripper Name Role Phone Netta Montoya Unavailable Siva Boyce Unavailable [phone] MISC, DR BECERRA Admitting Unavailable MISC, [...] PAWEL Connors Attending Unavailable MONTOYA, DR NETTA Cotni Primary Care Unavailable LEONA .[employer] Unavailable [...] Erin Briceno Admitting Unavailable MONTOYA, DR NETTA oCnti Admitting Unavailable MONTOYA, DR NETTA Conti Attending [...] Unavailable Montoya Netta LEVIN Primary Care Provider [phone] MD Siva Boyce Attending Provider MD Netta Montoya Primary Care Provider [phone] MD Cara Leo Attending Provider [phone] NETTA MONTOYA Primary Care Unavailable SAGAR KRAUSE [...] Care Provider Netta Montoya MD Attending Provider [phone] Jb Grady APRN Attending Provider Twan Diaz MD Unavailable [phone] Robbi Escudero MD Unavailable NONE, NONE Unavailable Unavailable Wanda Fonseca MD Attending Provider [phone] Suzanne Madrigal DO Attending Provider Netta Montoya MD Primary Care Provider Netta Montoya MD Attending Provider [phone] Netta Montoya MD Primary Care Provider Jb Grady APRN Attending Provider Allergies Allergy ClassificationReported Allergen(s)Allergy TypeDate of OnsetReaction(s) Facility (20 sources)milnacipran; Translations: [Savella]Drug Ntzacky21-36-7575YWRNNH HEADACHESGrant [facility] (20 sources)Morphine; Translations: [MORPHINE]Drug Hcjxprl59-33-3758Pgvelyi, HivesProMedica Repository (20 sources)tiZANidine; Translations: [Zanaflex]Drug Vmozrha03-66-7785 hallucinationsGrant Hospital Repository (20 sources)milnacipran; Translations: [MILNACIPRAN]Drug Pfvjccw24-10-7317 [facility] ([facility] sources)tiZANidine; Translations: [TIZANIDINE]Drug Bdzgrty77-39-7243 [facility] (2 sources)MorphineDrug AllergyThe [facility] (20 sources)VancomycinDrug Frbdsfc58-51-2126LbscnVeepc Health System (7 sources)Allergies ReconciledPropensity to adverse reactionsUnkSIPphone Other (7 sources)Savella *PSYCHOTHERAPEUTIC AND NEUROLOGICAL AGENTSPropensity to adverse reactionsUnkSIPphone Other (12 sources)Savella *PSYCHOTHERAPEUTIC ANDAllergy to npsdyrhdg45-35-7637MihxmOhiohealth Arthur G.H. Bing, Md, Cancer CenterComment on above:Free Text Allergy: Savella *PSYCHOTHERAPEUTIC AND NEUROLOGICAL AGENTS (1 source)ALLERGIES NOT ON FILE; Translations: [ALLERGIES NOT ON FILE]Propensity to adverse reactions (disorder)[facility] Repository (1 source)tiZANidineDrug Dyqcmxz93-08-0764Noezu: See CommentsMansfield Hospital (1 source)SARELLAFood allergy (disorder)63-33-2283hqwserigeuticpPaswtzc [facility] Medications Current Medications MedicationDrug Class(es)DatesSig (Normalized)Sig (Original)3 ML semaglutide 1.34 MG/ML Pen Injector [Ozempic] (8 sources)inject 0.5 mg by subcutaneous injection every weekOzempic (1 MG/DOSE) 4 MG/3ML 0.5mg Subcutaneous WEEKLY for 28 days Activeinject 1 mg by subcutaneous injection every weekOzempic (1 MG/DOSE) 4 MG/3ML 1 (ONE) MILLIGRAM WEEKLY Subcutaneous WEEKLY Activeacetaminophen 325 mg oral tablet (7 sources)Start: 46-03-0690tpxr 2 tablets by mouth every four hours as needed Acetaminophen 325 MG tablet Take 2 tablets by mouth every 4 hours as needed for Mild Pain. 50 tablet 1 01/29/2023 Activeacetaminophen 325 mg / HYDROcodone bitartrate 5 mg oral tablet (4 sources)Opioid AgonistStart: 76-81-0667pcgt 1 tablet by mouth once daily as neededhydroCODone-acetaminophen 5-325 MG tablet Indications: Acute postoperative pain of knee Take 1-2 tablets by mouth every 6 hours as needed for Severe Pain for up to 7 days. Do not take over 4000mg acetaminophen daily. 20 tablet 02/12/2023 Activealendronic acid 70 mg oral tablet (5 sources)Bisphosphonatetake 1 tablet by mouth once dailyFosamax 70 MG 1 tablet 30 minutes before the first food, beverage or medicine of the day with plain water Orally ActiveALOE CAPE MISC (1 source)ALOE CAPE MISC Activeamylase 762018 unt / lipase 89474 unt / protease 841102 unt delayed release oral capsule (20 sources)Start: 78-22-0714xofl 2 capsules by mouth three times daily at mealtime, then take 1 capsule by mouth four times rdzzqEqslhk-Zvofcmbv-Qssqmdn (Pork) (Creon) 36,000-114,000- 180,000 unit capsule,delayed release(DR/EC) A ctive CAP PO January 16, 2024 12:00am FreeTextSi capsules three times a day with meals and 1 capsule with a snack Orally four times a day; Note: Source Status: TakingPLEASE CHECK ALLERGIES; Refills: 5; Provider: Ariadne Briceno Complies with drug therapyStart: 23-80-2764wzkr 2 capsules by mouth three times daily at mealtime, then take 1 capsule by mouth four times daily Creon 78261-132017 UNIT 2 capsules three times a day with meals and 1 capsule with a snack Orally four times a day for 30 days PLEASE CHECK ALLERGIES January, Activetake 1 capsule by mouth once dailyCreon 36,000 unit-114,000 unit-180,000 unit capsule,delayed release 1 capsule by mouth once a day active [facility]ascorb[facility] 1000 mg oral tablet (19 sources)Vitamin CStart: 91-41-7554dcya 1 tablet by mouth twice dailyAscorbic Acid (Vitamin C) 1,000 mg tablet Active 1 TAB PO Twice daily October 24, 2023 1:00am FreeTextSi tablet Orally TWICE A DAY; Note: Source Status: Taking; Provider: Lindsay Cm ( ) Complies with drug therapytake 1 tablet by mouth once dailyAscorbic Acid 1,000 mg tablet Take 1,000 mg by mouth once daily. Activeaspirin 81 mg delayed release oral tablet (7 sources)Platelet Aggregation Inhibitor, Nonsteroidal Anti-inflammatory Drug Start: 37-72-0390rcfr 1 tablet by mouth twice dailyAspirin [address] tablet Take 1 tablet by mouth 2 times daily. This medication is for blood clot prevention. 60 tablet 01/29/2023 Activeatropine sulfate 0.025 mg / diphenoxylate hydrochloride 2.5 mg oral tablet (5 sources)Anticholinergic, Cholinergic Muscarinic Antagonist, Antidiarrhealtake 1 tablet by mouth every six hoursLomotil 2.5-0.025 MG 1 tablet as needed Orally Four times a day ActiveB Complex Vitamins (B COMPLEX 1 PO) (9 sources)B Complex Vitamins (B COMPLEX 1 PO) Take by mouth daily. ActiveB Complex Vitamins (B COMPLEX 1 PO) Take by mouth daily. 0 ActiveB Complex Vitamins (B COMPLEX 1 PO) Take by mouth. 0 ActiveBEARBERRY LEAF EXTRACT (UVA URSI LEAF FLUID EXTRACT MISC) (1 source)BEARBERRY LEAF EXTRACT (UVA URSI LEAF FLUID EXTRACT MISC) Activebiotin 10 mg oral tablet (2 sources)Biotin 40576 MCG tablet Take by mouth. 0 ActiveCalcium (15 sources)Phosphate Binder, CalciumCalcium + D ActiveCALCIUM 600/VITAMIN D (CALCIUM CARB-CHOLECALCIFEROL) 600-10 MG-MCG CHEW (1 source)take 1 tablet by mouth once dailyCalcium 600 with Vitamin D3 600 mg-10 mcg (400 unit) chewable tablet 1 tablet by mouth once a day as directed active [facility] HospitalCalcium Carb-Cholecalciferol (CALCIUM + D3 PO) (7 sources)Calcium Carb-Cholecalciferol (CALCIUM + D3 PO) Take by mouth daily. ActiveCalcium Carb-Cholecalciferol (CALCIUM + D3 PO) Take by mouth daily. 0 Activecelecoxib 200 mg oral capsule (20 sources)Nonsteroidal Anti-inflammatory DrugStart: 11-10-2024 End: 89-61-1060Uqtisxfjt 200 mg capsule Active 0 .ROUTE .COMPLEX 180 1 December 22, 2024 4:25pm TAKE 2 CAPSULES DAILY Complies with drug therapyStart: 11-10-2024 End: 77-61-6154Xeqpmsgga 200 mg capsule Discontinued 0 .ROUTE .COMPLEX 180 November 10, 2024 11:54am December 22, 2024 4:26pm TAKE 2 CAPSULES DAILYStart: 84-86-0576Kkgzdsffm 200 mg capsule Active 0 .ROUTE .COMPLEX 180 November 10, 2024 11:54am TAKE 2 CAPSULES DAILYStart: 09-30-2024 End: 22-38-8886xedb 2 capsules by mouth twice dailyCelecoxib 200 mg capsule Discontinued 400 MG PO Twice daily September 30, 2024 2:54pm November 10, 2024 11:54amStart: 05-13-2024 End: 19-89-7060zkew 2 capsules by mouth once dailyCelecoxib 200 mg capsule Discontinued 400 MG PO Daily 180 May 13, 2024 4:29pm September 30, 2024 2:59pmStart: 10-24-2023 End: 05-56-6396bicn 1 capsule by mouth once daily at mealtimeCelecoxib 200 mg capsule Discontinued 200 MG PO Daily 90 March 20, 2024 11:18am May 13, 2024 4:29pm FreeTextSi capsule with food Orally Once a day; Note: Source Status: Taking; Provider: Lindsay Cm ( )Start: 47-23-0184wnxl 1 capsule by mouth twice dailyCelecoxib 200 MG capsule Take 1 capsule by mouth 2 times daily. 60 capsule 03/23/2023 ActiveStart: 01-29-2023 End: 56-94-0900mqhg 1 capsule by mouth twice dailyCelecoxib 200 MG capsule Take 1 capsule by mouth 2 times daily. 84 capsule 0 01/29/2023 03/12/2023 Active cephalexin 500 mg oral capsule (5 sources)Cephalosporin Antibacterialtake 1 capsule by mouth every six hours Cephalexin 500 MG 1 capsule Orally Four times a day Activecholecalciferol 0.025 mg oral capsule (20 sources)Vitamin DStart: 13-39-2609Sewujavwoyuosus (Vitamin D3) 25 mcg (1,000 unit) capsule Active PO October 24, 2023 1:00am FreeTextSi/2 DAILY IN SUMMER Orally Once a day; Note: Source Status: Taking; Provider: Lindsay Cm ( ) Complies with drug therapyCholecalciferol, Vitamin D3, 10,000 unit cap Take by mouth. ActiveCholecalciferol 250 MCG (26131 UT) capsule capsule Take by mouth daily. ActiveCholecalciferol 250 MCG (75993 UT) capsule capsule Take by mouth. 0 Activedapagliflozin 10 mg oral tablet (10 sources)Sodium-Glucose Cotransporter 2 InhibitorStart: 23-74-0326qavw 1 tablet by mouth every twenty-four hoursFarxiga 10 MG 1 tablet Orally Once a day for 30 days samples January, Activetake 1 tablet by mouth once daily dapagliflozin 5 MG tablet Take 1 tablet by mouth daily. Active1 ml dexamethasone phosphate 4 mg/ml injection (4 sources)CorticosteroidStart: 62-67-9566mjpMFKAGvcrkz 4 MG/ML Solution injection Indications: Pain in prosthetic joint, subsequent encounter 1 mL by Other route As directed for 18 doses. (1 cc 3 x a week at physical therapy via iontophoresis) for up to 18 doses. 30 mL 12/21/2023 Activediclofenac sodium 75 mg delayed release oral tablet (5 sources)Nonsteroidal Anti-inflammatory Drugtake 1 tablet by mouth every twelve hoursDiclofenac Sodium 75 MG 1 tablet as needed Orally Twice a day Active dicyclomine hydrochloride 10 mg oral capsule (20 sources)AnticholinergicStart: 12-26-2024 End: 36-75-1448kwiq 1 capsule by mouth three times dailyDicyclomine 10 mg capsule Active 10 MG PO Three times daily 270 90 3 December 29, 2024 10:29am Complies with drug therapyStart: 08-29-2024 End: 64-41-5504Wjkwdbzebsk 10 mg capsule Discontinued 10 MG PO August 29, 2024 1:00am September 30, 2024 2:54pmStart: 06-23-2024 End: 38-20-0680bypv 1 tablet by mouth three times dailyDicyclomine 20 mg tablet Discontinued 20 MG PO Three times daily 90 30 June 23, 2024 12:00am July 17, 2024 3:33pmStart: 04-21-2024 End: 99-34-3153bxcf 1 capsule by mouth twice daily as needed for painDicyclomine 10 mg capsule Discontinued 10 MG PO Twice daily as needed for abdominal pain 60 April 21, 2024 12:00am July 17, 2024 3:33pmtake 1 capsule by mouth every eight hoursDicyclomine HCl 10 MG 1 capsules Orally Three times a day Activetake 1 tablet by mouth every six hoursDicyclomine 20 MG tablet Take 1 tablet by mouth every 6 hours. 0 Activedocusate sodium 100 mg oral capsule (20 sources)Start: 04-21-2024 End: 71-33-0007aljw 1 capsule by mouth once dailyDocusate Sodium (Colace) 100 mg capsule Active 100 MG PO Daily 30 30 April 21, 2024 10:59am Complies with drug therapyStart: 41-84-6813syzd 1 capsule by mouth twice dailyDocusate 100 MG capsule Take 1 capsule by mouth 2 times daily. 60 capsule 01/29/2023 Activetake 1 capsule by mouth twice dailyDocusate (Stool Softener) 100 MG capsule Take 1 capsule by mouth 2 times daily. 0 Activeestrogens, conjugated (penitentiary) 0.625 mg/ml vaginal cream (5 sources)EstrogenPremarin 0.625 MG/GM as directed Vaginal Activeeszopiclone 2 mg oral tablet (20 sources)Start: 64-21-2048lout 1 tablet by mouth once daily at bedtime Eszopiclone (Lunesta) 2 mg tablet Active 2 MG PO Daily at bedtime 30 30 2 July 07, 2025 12:00am Hypnotic dependence Sedative, hypnotic or anxiolytic dependence, uncomplicated Complies with drug therapyStart: 10-24-2023 End: 28-53-7314kwqp 1 tablet by mouth once daily at bedtimeEszopiclone (Lunesta) 3 mg tablet Discontinued 3 MG PO Daily at bedtime 2 April 21, 2025 11 :00am July 07, 2025 9:33am Chronic insomnia Psychophysiologic insomniatake 1 tablet by mouth once dailyeszopiclone 2 MG tablet Take 1 tablet by mouth daily. 0 ActiveFLAXSEED OIL (OMEGA 3 ORAL) (1 source)FLAXSEED OIL (OMEGA 3 ORAL) Take by mouth. ActiveFLUoxetine 40 mg oral capsule (5 sources)Serotonin Reuptake Inhibitortake 1 capsule by mouth every twenty-four hoursFLUoxetine HCl 40 MG 1 capsule Orally Once a day Activefolic acid 0.4 mg / vitamin b12 1 mg sublingual tablet (9 sources)Vitamin W99Foegtvmqw Combinations (B-12) 100-[address] under tongue daily. ActiveCobalamin Combinations (B-12) 100-[address] under tongue. 0 ActiveglipiZIDE 5 mg oral tablet (5 sources)Sulfonylureatake 1 tablet by mouth once daily 30 minutes before breakfastglipiZIDE 5 MG 1 tablet 30 minutes before breakfast Orally Once a day ActiveHomeopathic Products (5 sources)Homeopathic Products Activehyoscyamine sulfate 0.125 mg oral tablet (5 sources)Start: 60-59-5765jtkr 1 tablet by mouth every six hoursLevsin 0.125 MG 1 tablet as needed Orally Four times a day for 15 days Sep, Active ibuprofen 800 mg oral tablet (13 sources)Nonsteroidal Anti-inflammatory Drugtake 1 tablet by mouth every eight hours at mealtime as neededIbuprofen 800 MG 1 tablet with food or milk as needed Orally every 8 hrs Activetake 1 tablet by mouth three times daily at mealtime as neededIbuprofen 200 MG 1 tablet with food or milk as needed Orally Three times a day ActiveIbuprofen 600 MG tablet Take 800 mg by mouth every 6 hours as needed for Mild Pain. 0 ActiveInsulin Aspart U-100 (Novolog Flexpen U- 100 Insulin) 100 unit/mL (3 mL) insulin pen (8 sources)Start: 95-13-1376Znvnxtq Aspart U-100 (Novolog Flexpen U-100 Insulin) 100 unit/mL (3 mL) insulin pen Active 1 sliding scale dose SUBCUT Use as Directed November 05, 2024 12:41pmStart: 12-13-2023 End: 82-78-0992Feeseyp Aspart U-100 (Novolog Flexpen U-100 Insulin) 100 unit/mL (3 mL) insulin pen Discontinued 1 sliding scale dose SUBCUT Use as Directed December 13, 2023 12:00am November 05, 2024 12:41pmStart: 41-10-8998Bdfwiks Aspart U-100 (Novolog Flexpen U-100 Insulin) 100 unit/mL (3 mL) insulin pen Active 1 sliding scale dose SUBCUT Use as Directed December 12, 2023 11:00pm3 ml insulin aspart, human 100 unt/ml pen injector (14 sources)Insulin AnalogStart: 12-13-2023 End: 78-18-5847Blzqlyg Aspart U-100 (Novolog Flexpen U-100 Insulin) 100 unit/mL (3 mL) insulin pen Active 1 sliding scale dose SUBCUT Use as Directed 15 November 05, 2024 12:41pm Complies with drug therapy3 ml insulin lispro 100 unt/ml pen injector (1 source)Insulin AnalogHumalog KwikPen (U-100) Insulin 100 unit/mL subcutaneous active [facility] - Pep 0819 ClinicIodine (6 sources)IODINE ORAL Take by mouth. ActiveIodine ActiveLactobacillus acidophilus (1 source)LACTOBACILLUS ACIDOPHILUS (MORE-DOPHILUS ORAL) Take by mouth. Active lifitegrast 50 mg/ml ophthalmic solution (18 sources)Lymphocyte Function-Associated Antigen-1 AntagonistStart: 11-06-2022 Xiidra 5 % Solution ophthalmic solution Place in both eyes 2 times daily. 11/06/2022 Activetake 1 drop(s) into the eye(s) twice dailyXiidra 5 % 1 drop into affected eye Ophthalmic Twice a day Activelubiprostone 0.024 mg oral capsule (14 sources)Chloride Channel ActivatorStart: 81-26-9078eqil 1 capsule by mouth twice dailyLubiprostone (Amitiza) 24 mcg capsule Active 24 MCG PO Twice daily 60 30 5 January 28, 2025 12:00am Complies with drug therapyStart: 12-29-2024 End: 31-12-3327ewlc 1 capsule by mouth once dailyLubiprostone (Amitiza) 8 mcg capsule Discontinued 8 MCG PO Daily 30 30 11 December 29, 2024 12:00am January 28, 2025 9:33amLutein (15 sources)Lutein ActiveLUTEIN PO Take 25 mg by mouth. 0 Activemagnesium oxide 500 mg oral capsule (9 sources)Magnesium 500 MG capsule Take by mouth daily. Activemelatonin 5 mg oral capsule (9 sources)Melatonin 5 MG capsule Take by mouth at bedtime. Activemethocarbamol 500 mg oral tablet (20 sources)Muscle RelaxantStart: 90-30-8180pbbo 2 tablets by mouth once daily at bedtimeMethocarbamol 500 mg tablet Active 1000 MG PO Daily at bedtime September 30, 2024 2:56pm Complies with drug therapyStart: 08-29-2024 End: 99-76-7812xuxe 1 tablet by mouth three times dailyMethocarbamol 500 mg tablet Discontinued 500 MG PO Three times daily August 29, 2024 1:00am Alejo trent2024 2:59pmStart: 10-24-2023 End: 02-71-6160xeay 2 tablets by mouth at bedtimeMethocarbamol 750 mg tablet Discontinued 750 MG PO October 24, 2023 1:00am July 17, 2024 3:31pm FreeTextSi tablets Orally at HS; Note: Source Status: Taking; Provider: Lindsay Cm ( )METHOCARBAMOL PO Take by mouth. 0 ActiveMulti For Her (15 sources)Multi For Her ActiveMultiple Vitamins-Minerals (One Daily Calcium/Iron) tablet (9 sources)take 1 tablet by mouth once dailyMultiple Vitamins-Minerals (One Daily Calcium/Iron) tablet Take 1 tablet by mouth daily. Activetake 1 tablet by mouth once dailyMultiple Vitamins-Minerals (One Daily Calcium/Iron) tablet Take 1 tablet by mouth daily. 0 ActiveMultivitamin capsule (1 source)take 1 capsule by mouth once dailyMultivitamin capsule Take 1 capsule by mouth once daily. ActiveMultivitamin preparation (5 sources)Multivitamin ActiveMultivitamin tablet (12 sources)Start: 34-94-5072gkzq 1 tablet by mouth once dailyStart: 07-29-2024 take 1 tablet by mouth once dailyMultivitamin tablet Active 1 TAB PO Daily July 29, 2024 1:00am Complies with drug therapyStart: 76-38-9730wzwt 1 tablet by mouth once dailyMultivitamin tablet Active 1 TAB PO Daily July 29, 2024 1:00amStart: 98-90-9637inwq 1 tablet by mouth once dailyMultivitamin tablet Active 1 TAB PO Daily July 29, 2024 12:00amMultivitamin/Iron (5 sources)Multivitamin/Iron Activenabumetone 750 mg oral tablet (2 sources)Nonsteroidal Anti-inflammatory DrugStart: 97-70-8757ygjvwxdszy 750 MG tabletnaloxone hydrochloride 40 mg/ml nasal spray (4 sources)Opioid AntagonistStart: 01-29-2023 End: 42-63-0606wichejth 4 MG/0.1ML 1 spray by Nasal route once for 1 dose. [place] into the nose as directed. Call 911. If no response in 2 minutes use a new nasal spray in other nostril. Repeat until help arrives. 1Each 01/29/2023 Active Windsor 3 (5 sources)Windsor 3 Activeomeprazole 40 mg delayed release oral capsule (20 sources)Proton Pump InhibitorStart: 12-26-2024 End: 17-99-2218vnda 1 capsule by mouth once dailyOmeprazole 40 mg capsule,delayed release(DR/EC) Active 40 MG PO Daily 30 30 December 29, 2024 10:29am Complies with drug therapyStart: 10-24-2023 End: 74-25-4968bops 1 capsule by mouth once dailyOmeprazole 20 mg capsule,delayed release(DR/EC) Discontinued 20 MG PO Daily 30 30 April 21, 2024 12:00am September 30, 2024 2:57pmOmeprazole [address] tablet Take by mouth daily. Activetake 1 capsule by mouth once dailyOmeprazole 10 MG 1 capsule 30 minutes before morning meal Orally Once a day ActiveOneTouch Ultra 2 w/Device (18 sources)OneTouch Ultra 2 w/Device as directed Activeoxybutynin chloride 5 mg oral tablet (20 sources)Cholinergic Muscarinic AntagonistStart: 22-29-9766vjyn 1 tablet by mouth once dailyOxybutynin Chloride 5 mg tablet Active 5 MG PO Daily 30 30 April 21, 2024 12:00am Complies with drug therapyStart: 02-29-2024 End: 47-59-4081omeh 1 tablet by mouth once dailyOxybutynin Chloride 5 mg tablet extended release 24hr Discontinued 5 MG PO Daily 30 3 February 29, 2024 12:21pm April 21, 2024 11:00amtake 1 tablet by mouth three times daily as needed Oxybutynin Chloride 5 MG 1 tablet Orally THREE TIMES A DAY NEEDED Active oxyCODONE hydrochloride 5 mg oral tablet (4 sources)Opioid AgonistStart: 74-46-2116ginp 1-2 tablets by mouth every four to six hours as needed for painoxyCODONE 5 MG tablet Indications: Acute postoperative pain of knee Take 1-2 tabs po q 4-6 hours prn pain. Wean as tolerated. 20 tablet 02/06/2023 ActiveOzempic (0.25 or 0.5 MG/DOSE) 2 MG/1.5ML (2 sources)Ozempic (0.25 or 0.5 MG/DOSE) 2 MG/1.5ML as directed Subcutaneous ActivePancrelipase, Sgc-Fizc-Kdko, (CREON PO) (7 sources)take 1 tablet by mouth once dailyPancrelipase, Tdd-Pybc-Pweb, (CREON PO) Take 36,000 Units by mouth. 2 tablet by mouth with each meal, 1 tablet by mouth with 1 snack daily Activetake 1 tablet by mouth once dailyPancrelipase, Fny-Vgdm-Tnqb, (CREON PO) Take 36,000 Units by mouth. 2 tablet by mouth with each meal, 1 tablet by mouth with 1 snack daily 0 Activeprobiotic (2 sources)probiotic ActiveProbiotic Product (PROBIOTIC DAILY PO) (9 sources)Probiotic Product (PROBIOTIC DAILY PO) Take by mouth. ActiveProbiotic Product (PROBIOTIC DAILY PO) Take by mouth. 0 ActivePropylene glycol (7 sources)Propylene Glycol (SYSTANE COMPLETE OP) Apply to eye as needed. Active Propylene Glycol (SYSTANE COMPLETE OP) Apply to eye as needed. 0 ActiveRA VITAMIN C/KIRILL HIPS (ASCORBIC ACID) 1000 MG TABS (1 source)take 1 tablet by mouth once dailyVitamin C 1,000 mg tablet 1 tablet by mouth once a day as directed active [facility]Robaxin-750 (5 sources)Robaxin-750 ActiveSaccharomyces Boulardii (7 sources)Start: 88-94-1817qhbu 10 capsules by mouth once dailyStart: 61-99-2987rrtx 10 capsules by mouth once dailySaccharomyces Boulardii (Resistance Formula Probiotic) 10 billion cell capsule Active 26592 MMU CELLS PO Daily April 21, 2024 12:00am Complies with drug therapySaccharomyces Boulardii (Resistance Formula Probiotic) 10 billion cell capsule (5 sources)Start: 26-15-0725zlfi 10 capsules by mouth once dailySaccharomyces Boulardii (Resistance Formula Probiotic) 10 billion cell capsule Active 13813 MMU CELLS PO Daily April 21, 2024 12:00amStart: 46-10-3697uomj 10 capsules by mouth once dailySaccharomyces Boulardii (Resistance Formula Probiotic) 10 billion cell capsule Active 36944 MMU CELLS PO Daily April 20, 2024 11:00pm Selenium (5 sources)Selenium ActiveSITagliptin 100 mg oral tablet (17 sources)Dipeptidyl Peptidase 4 InhibitorStart: 46-55-6683hwyo 1 tablet by mouth once dailySitagliptin Phosphate (Januvia) 100 mg tablet Active 100 MG PO Daily September 30, 2024 1:00am Complies with drug therapyStart: 08-78-1748jhtn 1 tablet by mouth every twenty-four hoursJanuvia 100 MG 1 tablet Orally Once a day for 90 days Mar, ActiveSpecialty Vitamins Products (ICAPS lutein & zeaxanthin) Tab DR (9 sources)take 1 tablet by mouth once dailySpecialty Vitamins Products (ICAPS lutein & zeaxanthin) Tab DR Take 1 tablet by mouth daily. Activetake 1 tablet by mouth once dailySpecialty Vitamins Products (ICAPS lutein & zeaxanthin) Tab DR Take 1 tablet by mouth daily. 0 Activetake 1 tablet by mouth twice daily Specialty Vitamins Products (ICAPS lutein & zeaxanthin) Tab DR Take 1 tablet by mouth 2 times daily. 0 ActiveStool Softener (15 sources)Stool Softener ActiveSUPER B-50 B COMPLEX (B NBIZPTZ-SSXXZA-IE) CAPS (1 source)take 1 capsule by mouth once dailySuper B-50 Complex 400 mcg-20 mg-50 mg capsule 1 capsule by mouth once a day as directed active [facility] Clinicthyroid (penitentiary) 65 mg oral tablet (6 sources)take 2 tablets by mouth once dailyThyroid, Pork, 65 mg tab Take 130 mg by mouth once daily. ActiveNature-Throid ActiveTumeric (12 sources)Start: 41-34-6080Sjcvf: 42-18-9967Zgltwex Active PO April 21, 2024 12:00am Complies with drug therapyStart: 97-31-1930Elsdkmt Active PO April 21, 2024 12:00amStart: 03-46-2707Ysuckwd Active PO April 20, 2024 11:00pm tumeric 1000mg tablet (1 source)take 1 tablet by mouth once dailytumeric 1000mg tablet 1 tablet by mouth once a day active [facility] - Pep 6701 Clinicturmeric extract 500 mg oral capsule (2 sources)Turmeric 500 MG capsule Take by mouth. 0 ActiveUbrelvy 100 MG (5 sources)Start: 10-58-4583Vzhzhwi 100 MG 1 tablet may take second dose at least 2 hours after first dose as needed Orally Once a day for 30 day(s) Mar, ActiveVitamin A (13 sources)Vitamin AVitamin A ActiveVitamin A 2400 MCG (8000 UT) tablet (9 sources)Vitamin A 2400 MCG (8000 UT) tablet Take by mouth daily. Active Vitamin A 2400 MCG (8000 UT) tablet Take by mouth daily. 0 ActiveVitamin A 2400 MCG (8000 UT) tablet Take by mouth. 0 Activevitamin b12 5 mg sublingual tablet (19 sources)Vitamin B11yhaouzltuhvnxu, vitamin B-12, 5,000 mcg subl Dissolve under the tongue. ActiveVitamin B12 Activevitamin b6 100 mg oral tablet (9 sources)Pyridoxine HCl (B-6) 100 MG tablet Take by mouth daily. Active Pyridoxine HCl (B-6) 100 MG tablet Take by mouth. 0 ActiveVitamin C 1000 MG (14 sources)take 1 tablet by mouth twice dailyVitamin C 1000 MG 1 tablet Orally TWICE A DAY ActiveVitamin D-3 25 MCG (1000 UT) (17 sources)Vitamin D-3 25 MCG (1000 UT) 1/2 DAILY IN SUMMER Orally Once a day Activezinc acetate 50 mg oral capsule (1 source)take 1 capsule by mouth once dailyzinc acetate 50 mg (zinc) capsule 1 capsule by mouth once a day as directed active [facility] mg oral tablet (3 sources)gamma-Aminobutyric Acid-ergic AgonistStart: 29-37-2324Miremcfz Tartrate 10 MG TAKE 1 TABLET AT BEDTIME for 90 Sep, Active Completed/Discontinued Medications MedicationDrug Class(es)DatesSig (Normalized)Sig (Original)amoxicillin 875 mg / clavulanate 125 mg oral tablet (20 sources)Penicillin-class AntibacterialStart: 12-10-2024 End: 27-89-1724dhai 1 tablet by mouth twice dailyAmoxicillin-Pot Clavulanate 875-125 mg tablet Discontinued 1 TAB PO Twice daily 20 0 December 10, 2024 12:00am December 26, 2024 10:11amStart: 01-29-2024 End: 71-16-9159ifok 1 tablet by mouth twice dailyAmoxicillin-Pot Clavulanate 875-125 mg tablet Discontinued 1 TAB PO Twice daily 20 10 0 January 29, 2024 12:00am February 11, 2024 11:23amazithromycin 250 mg oral tablet (12 sources)Macrolide AntimicrobialStart: 12-13-2023 End: 09-07-5298Hgeyartbwski 250 mg tablet Discontinued 0 PO .COMPLEX 6 0 December 13, 2023 12:00am January 16, 2024 10:46am For 250 mg dose pack: take 500 mg today (day 1), then 250 mg for 4 days (days 2-5) PObaclofen 10 mg oral tablet (20 sources)gamma-Aminobutyric Acid-ergic AgonistStart: 07-17-2024 End: 40-90-8843sxlz 2 tablets by mouth twice dailyBaclofen 10 mg tablet Discontinued 20 MG PO Twice daily July 17, 2024 1:00am August 29, 2024 12:04pmbaclofen 10 MG tablet Take 2 tablets by mouth as needed. Activetake 1 tablet by mouth twice daily at mealtime as neededBaclofen 20 MG 1 tablet Administer without regards to meals as needed Orally Twice a day Active benzonatate 200 mg oral capsule (12 sources)Non-narcotic AntitussiveStart: 01-29-2024 End: 75-78-6287gfbp 1 capsule by mouth three times daily as needed for cough Benzonatate 200 mg capsule Discontinued 200 MG PO Three times daily as needed for cough 30 10 0 2023 12:00am February 18, 2024 10:32amcyclobenzaprine hydrochloride 5 mg oral tablet (14 sources)Muscle RelaxantStart: 08-13-2023 End: 46-04-7932mcjj 1 tablet by mouth once daily at bedtimeCyclobenzaprine 5 mg tablet Discontinued 1 TAB PO Daily at bedtime October 24, 2023 1:00am January 8t 2023 10:46am FreeTextSi tablet at bedtime as needed Orally Once a day; Note: Source Status: Start; Provider: Lindsay Cm Edextromethorphan hydrobromide 3 mg/ml / promethazine hydrochloride 1.25 mg/ml oral solution (12 sources)Phenothiazine, Uncompetitive F-hpqbiv-I-aspartate Receptor Antagonist, Sigma-1 AgonistStart: 01-23-2024 End: 12-58-6385dwxz 1 mL by mouth every four to six hours as needed for cough Promethazine-Dm 6.25-15 mg/5 mL syrup Discontinued 5 ML PO EVERY 4-6 HOURS as needed for cough 118 5 0 January 23, 2024 12:00am January 29, 2024 11:21am Bronchitis Maxillary sinusitis Bronchitis, not specified as acute or chronic Chronic maxillary sinusitisdoxepin hydrochloride 100 mg oral capsule (5 sources)Tricyclic Antidepressanttake 1 capsule by mouth every twenty-four hoursDoxepin HCl 100 MG 1 capsule at bedtime Orally Once a day Not-Taking doxycycline monohydrate 100 mg oral tablet (12 sources)Tetracycline-class DrugStart: 01-23-2024 End: 33-50-4300ntok 1 tablet by mouth twice dailyDoxycycline Monohydrate 100 mg tablet Discontinued 100 MG PO Twice daily 20 10 0 January 23, 2024 12:00am January 29, 2024 11:21am Bronchitis Maxillary sinusitis Bronchitis, not specified as acute or chronic Chronic maxillary sinusitisDULoxetine (5 sources)Serotonin and Norepinephrine Reuptake Inhibitortake 1 capsule by mouth once dailyCymbalta 90 MG 1 capsule Orally Once a day for 30 day(s) Not-Takingfluconazole 150 mg oral tablet (12 sources)Azole AntifungalStart: 02-11-2024 End: 94-98-5966Eehjikjpgqm 150 mg tablet Discontinued 150 MG PO Q3D 2 0 0 February 11, 2024 12:00am April 210:45am Vaginitis Acute vaginitis Take 1st dose at onset of symptoms then repeat in 3 days if continued symptomsfluticasone propionate 0.05 mg/actuat metered dose nasal spray (20 sources)CorticosteroidStart: 02-18-2024 End: 52-00-4170knwc 1 spray(s) nasal route once dailyFluticasone Propionate (Flonase Allergy Relief) 50 mcg/actuation spray,suspension Discontinued 1 SPRAY INTRANASAL Daily February 18, 2024 12:00am July 17, 2024 3:33pm administer into each nostrilStart: 02-11-2024 End: 69-01-8414uowq 1 spray(s) nasal route twice dailyFluticasone Propionate (Flonase Allergy Relief) 50 mcg/actuation spray,suspension Discontinued 1 SPRAY INTRANASAL Twice daily 16 30 1 February 11, 2024 12:00am February 18, 2024 10:32am administer into each nostrillevothyroxine sodium 0.1 mg oral tablet (20 sources)l-ThyroxineStart: 03-24-2024 End: 24-49-2757Lirkfobuxngmc 100 mcg tablet Discontinued 0 .ROUTE .COMPLEX 90 December 22, 2024 4:25pm June 04, 2025 11:29am TAKE 1 TABLET ONCE DAILY Start: 03-07-2024 End: 02-26-3719Twdclbcvbsozb 112 mcg tablet Discontinued 0 .ROUTE .COMPLEX 90 March 20, 2024 11:19am March 12:44pm TAKE 1 TABLET ONCE DAILYStart: 02-18-2024 End: 14-63-5283xhna 1 tablet by mouth once dailyLevothyroxine 100 mcg tablet Discontinued 100 MCG PO Daily 90 0 February 18, 2024 12:00am March 07, 2024 11:04amStart: 10-02-2022 End: 06-23-0943riff 1 tablet by mouth once dailyLevothyroxine 112 mcg tablet Discontinued 1 TAB PO Daily October 24, 2023 1:00am February 170:30am FreeTextSi tablet Orally Once a day; Note: Source Status: Taking; Refills: 3; Qty: 90 Tablet; Provider: Lindsay Huston 1 tablet by mouth every twenty- four hoursLevothyroxine Sodium 112 MCG 1 tablet Orally Once a day for 90 days Kkhdqb21 ml lidocaine hydrochloride 10 mg/ml injection (9 sources)Antiarrhythmic, Amide Local AnestheticStart: 02-21-2024 End: 51-96-2860Xxcxhrxjh 1% (PF) (XYLOCAINE MPF) 1 % injection 5 mLStart: 02-21-2024 End: mL, Intra-articular, ONCE NEEDED, 1 dose, Starting on Marleny 02/21/24 at 1310, Until Marleny 02/21/24 at 1310Start: 11-30-2022 End: 09-03-0283Ddlasdtus 1% (PF) (XYLOCAINE MPF) 1 % injection 5 mLapply 1 dose transdermal route once daily as neededLidocaine 4 % 1 patch as needed Externally Once a day Activelinaclotide 0.072 mg oral capsule (20 sources)Guanylate Cyclase-C AgonistStart: 09-30-2024 End: 95-30-1163mgxl 1 capsule by mouth once dailyLinaclotide (Linzess) 72 mcg capsule Discontinued 72 MCG PO Daily September 30, 2024 1:00am December 10, 2024 9:31amStart: 06-23-2024 End: 97-72-0516sdwm 1 capsule by mouth once dailyLinaclotide (Linzess) 72 mcg capsule Discontinued 72 MCG PO Daily 30 30 June 23, 2024 12:00am August 29, 2024 12:06pmLinzess 72 MCG 1 capsule at least 30 minutes before the first meal of the day on an empty stomach Orally Once a day Activeloratadine 10 mg oral tablet (12 sources)Start: 02-18-2024 End: 08-33-3905gcub 1 tablet by mouth once dailyLoratadine (Claritin) 10 mg tablet Discontinued 10 MG PO Daily February 18, 2024 12:00am February 18, 2024 10:38amMagnesium (20 sources)Start: 04-21-2024 End: 94-91-9367exca 2 tablets by mouth once dailyMagnesium 250 mg tablet Discontinued 500 MG PO Daily April 21, 2024 12:00am September 30, 2024 2:56pm Start: 04-21-2024 End: 41-90-4159dhqe 2 tablets by mouth once dailyMagnesium 250 mg tablet Discontinued 500 MG PO Daily April 20, 2024 11:00pm September 30, 2024 1:56pm MAGNESIUM ORAL Take by mouth. ActiveMagnesium Activemesalamine 1200 mg delayed release oral tablet (20 sources)AminosalicylateStart: 04-21-2024 End: 87-76-4276pukb 1 tablet by mouth once dailyMesalamine 1.2 gram tablet,delayed release (DR/EC) Discontinued 1.2 GM PO Daily April 21, 2024 12 :00am July 29, 2024 10:37amStart: 04-69-8191gztv 4 tablets by mouth every twenty-four hoursMesalamine 1.2 GM 4 tablets Orally Once a day for 30 days January, ActiveStart: 05-65-8512yers 4 tablets by mouth every twenty-four hours Mesalamine 1.2 GM 4 tablets Orally Once a day for 30 days January, Active Start: 25-32-6392biwr 2 tablets by mouth once dailyMesalamine 1.[address] tablet Take 2 tablets by mouth daily. 01/01/2023 Activetake 2 tablets by mouth every twenty-four hoursMesalamine 1.2 GM 2 tablets with a meal Orally Once a day for 30 days ActivemetFORMIN hydrochloride 1000 mg oral tablet (20 sources)BiguanideStart: 03-07-2024 End: 14-63-0016Jgfnekgyo 1,000 mg tablet Discontinued 0 .ROUTE .COMPLEX 180 1 August 19, 2024 9:28am December 22, 2024 4:26pm TAKE 1 TABLET TWICE DAILY WITH MEALSStart: 08-29-2022 End: 84-96-6602exij 1 tablet by mouth twice dailyMetformin 1,000 mg tablet Discontinued 1 TAB PO Twice daily October 24, 2023 1:00am March 07, 2024 11:04am FreeTextSi tablet with a meal Orally TWICE A DAY; Note: Source Status: Taking; Refills: 3; Qty: 180 Tablet; Provider: Lindsay Conti methylPREDNISolone 4 mg oral tablet (20 sources)CorticosteroidStart: 08-29-2024 End: 65-38-9426Sgyvcalzpqlpewcyxs 4 mg tablets,dose pack Discontinued 4 MG PO August 29, 2024 1:00am September 30, 2024 2:56pmStart: 01-23-2024 End: 02-58-3864savy 1 tablet by mouth onceMethylprednisolone (Medrol (Marc)) 4 mg tablets,dose pack Discontinued 0 PO per package directions 21 6 0 January 23, 2024 12:00am February 11, 2024 11:36am Bronchitis Bronchitis, not specified as acute orchronic PO PER PKG DIRStart: 53-17-0827iydsorRFILUQwpyurn 4 MG Tab Therapy Pack tablet Take 1 tablet by mouth As directed. follow package d irections 21 tablet 08/09/2023 ActiveMethylprednisolone 4 mg tablets,dose pack (5 sources)Start: 08-29-2024 End: 52-60-9993Mklomqzuljfmytttjh 4 mg tablets,dose pack Discontinued 4 MG PO August 29, 2024 1:00am September 30, 2024 2:56pmStart: 08-29-2024 End: 05-39-3993Xkohraxwueeyxnvvre 4 mg tablets,dose pack Discontinued 4 MG PO August 29, 2024 12:00am September 30, 2024 1:56pmmontelukast 10 mg oral tablet (20 sources)Leukotriene Receptor AntagonistStart: 03-17-2024 End: 75-57-1165fktc 1 tablet by mouth once daily at bedtimeMontelukast 10 mg tablet Discontinued 0 .ROUTE .COMPLEX 90 1 March 20, 2024 11:19am April 21, 2024 10:44am TAKE 1 TABLET BY MOUTH EVERY NIGHT AT BEDTIMEStart: 02-18-2024 End: 12-13-0460nchv 1 tablet by mouth once daily at bedtimeMontelukast (Singulair) 10 mg tablet Discontinued 10 MG PO Daily at bedtime 30 February 18, 2024 12:00am March 17, 2024 10:25amQUEtiapine 50 mg oral tablet (5 sources)Atypical Antipsychotictake 1 tablet by mouth every twenty-four hours SEROquel 50 MG 1 tablet Orally Once a day for 30 day(s) Not-TakingSemaglutide (12 sources)Start: 12-13-2023 End: 39-72-9663Zpgcaarjodt (Ozempic) 0.25 mg or 0.5 mg (2 mg/3 mL) pen injector Discontinued 0.5 MG SUBCUT every week 3 December 13, 2023 12:00am December 10, 2024 9:32am for 4 weeksStart: 12-13-2023 End: 96-00-6513Pzbdzzwxhxm (Ozempic) 0.25 mg or 0.5 mg (2 mg/3 mL) pen injector Discontinued 0.5 MG SUBCUT every week December 13, 2023 12:00am December 10, 2024 9:32am for 4 weeksStart: 79-11-8867Aoolnrempxe (Ozempic) 0.25 mg or 0.5 mg (2 mg/3 mL) pen injector Active 0.5 MG SUBCUT every week December 12, 2023 11:00pm for 4 weekssimethicone 125 mg oral capsule (12 sources)Start: 04-21-2024 End: 50-32-4466baot 1 capsule by mouth three times dailySimethicone (Gas Relief (Simethicone)) 125 mg capsule Discontinued 125 MG PO Three times daily April 21, 2024 12:00am September 30, 2024 2:57pm abdominal distention sulfamethoxazole 800 mg / trimethoprim 160 mg oral tablet (3 sources)Dihydrofolate Reductase Inhibitor Antibacterial, Sulfonamide AntimicrobialStart: 05-13-2025 End: 27-80-1567jwdg 1 tablet by mouth twice dailySulfamethoxazole-Trimethoprim 800-160 mg tablet Discontinued 1 TAB PO Twice daily May 13, 2025 12:00am June 23, 2025 11:28amTramadol (20 sources)Opioid AgonistStart: 04-21-2024 End: 27-38-4948aeyq 2 tablets by mouth twice daily as neededTramadol 25 mg tablet Discontinued 50 MG PO Twice daily as needed April 21, 2024 12:00am 2024 2:58pmStart: 04-21-2024 End: 12-99-6666xxlp 2 tablets by mouth twice daily as neededTramadol 25 mg tablet Discontinued 50 MG PO Twice daily as needed April 20, 2024 11:00pm 2024 1:58pmStart: 10-24-2023 End: 09-03-0735mtae 1 tablet by mouth twice dailyTramadol 50 mg tablet Discontinued 50 MG PO Twice daily October 24, 2023 1:00am March 20, 2024 1 1:19am FreeTextSi tablet twice a day; Note: Source Status: Taking; Provider: Lindsay Cm ( )Start: 60-93-3342ijvk 1 tablet by mouth every six hours as needed for paintraMADol 50 MG tablet Indications: Acute postoperative pain of knee 1 tabs po q 6 hr PRN pain 20 tablet 02/16/2023 Active traMADol HCl Active1 ml triamcinolone acetonide 40 mg/ml injection (4 sources)CorticosteroidStart: 02-21-2024 End: 08-08-6192tuzzzpndsldjj (KENALOG-40) injection 1 mLStart: 02-21-2024 End: mL, Intra-articular, ONCE NEEDED, 1 dose, Starting on Marleny 02/21/24 at 1310, Until Marleny 02/21/24 at 1310Start: 11-30-2022 End: 69-81-5554cvqhwfoylkmaa (KENALOG-40) injection 1 mLubiquinol 100 mg oral capsule (12 sources)Start: 07-29-2024 End: 95-98-0696zumc 1 capsule by mouth twice brtcmImt38 (Ubiquinol) (Qunol Boyd Coq10) 100 mg capsule Discontinued 100 MG PO Twice daily July 29, 2024 1:00am December 26, 2024 10:11amZinc (20 sources)Start: 04-21-2024 End: 34-52-1892Glvf 50 mg Discontinued PO Daily April 21, 2024 12:00am September 30, 2024 2:58pmStart: 04-21-2024 End: 19-00-8773Niip 50 mg Discontinued PO Daily April 20, 2024 11:00pm September 30, 2024 1:58pmZinc 50 MG capsule Take by mouth daily. ActiveZinc 50 MG capsule Take by mouth daily. 0 ActiveZinc ActiveZinc 50 MG capsule Take by mouth. 0 Activezonisamide 50 mg oral capsule (13 sources)Anti-epileptic AgentStart: 09-30-2024 End: 70-76-8860rykt 1 capsule by mouth twice dailyZonisamide 50 mg capsule Discontinued 50 MG PO Twice daily September 30, 2024 1:00am June 23, 2025 11:28amtake 1 capsule by mouth once dailyzonisamide 50 mg capsule 1 capsule by mouth once a day active [facility] Rod[facility]guez AT [facility] Problems Active Problems Problem ClassificationProblemDateDocumented DateEpisodic/ChronicAbdominal pain (20 sources)Abdominal pain; Translations: [Unspecified abdominal pain]Onset: 68-95-5230EbykkonrJwkvjhkc foot deformities (20 sources)Acquired hammer toe of left foot; Translations: [Other hammer toe(s) (acquired), left foot]ChronicAcquired foot deformities (18 sources)Acquired deformity of left foot; Translations: [Other acquired deformities of left foot]EpisodicAllergic reactions (20 sources)Contact dermatitis due to plants; Translations: [Unspecified contact dermatitis due to plants, except food]EpisodicAnxiety disorders (20 sources)Generalized anxiety disorder; Translations: [Generalized anxiety disorder]ChronicChronic obstructive pulmonary disease and bronchiectasis (12 sources)Bronchitis; Translations: [Bronchitis, not specified as acute or chronic]98-94-2260DhwkkjmkIczmpyphndox of device; implant or graft (20 sources)Broken internal joint prosthesis, unspecified site, subsequent encounter; Translations: [Joint pain]Onset: 03-91-0993OilwnaofZghgsjnpqgglo of surgical procedures or medical care (18 sources)Complication of ventilation tlqhcpe91-85-3081CzkyqxghSzjielxx mellitus with complications (20 sources)Hyperglycemia due to type 2 diabetes mellitus; Translations: [Type 2 diabetes mellitus with hyperglycemia]Onset: 59-72-8658CbactfpGwiwpyzi mellitus without complication (16 sources)Type 2 diabetes mellitus without complication; Translations: [Type 2 diabetes mellitus without complications]Onset: hronic Disorders of lipid metabolism (20 sources)Mixed hyperlipidemia; Translations: [Mixed hyperlipidemia]Onset: 54-64-5812KmzgmdwFiyzbqbrriumbu and diverticulitis (20 sources)Diverticular disease of colon; Translations: [Diverticulosis of intestine, part unspecified, without perforation or abscess without bleeding] ChronicE Codes: Natural/environment (20 sources)Tick bite; Translations: [Bitten or stung by nonvenomous insect and other nonvenomous arthropods, initial encounter]Onset: 17-99-8985Sobkphhx Esophageal disorders (20 sources)Gastroesophageal reflux disease; Translations: [Gastro-esophageal reflux disease without esophagitis]21-96-7110UrxtqlvTeyfjvtcwxxahr ulcer (except hemorrhage) (18 sources)Peptic ulcer; Translations: [Peptic ulcer, site unspecified, unspecified as acute or chronic, without hemorrhage or perforation]Chronic Genitourinary symptoms and ill-defined conditions (6 sources)Dysuria; Translations: [Dysuria]74-17-1422XeuqhcufHxupbijn; including migraine (18 sources)Migraine with aura; Translations: [Migraine with aura, not intractable, without status migrainosus]23-00-0025VmjrhofSfstbwal; including migraine (18 sources)Headache; Translations: [Headache]EpisodicHeart valve disorders (7 sources)Aortic valve disorder; 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 valve disorder, unspecified]Onset: 701234-52-9300ZqrsmbbZktbmciahed (20 sources)Residual hemorrhoidal skin tags; Translations: [Residual hemorrhoidal skin tags]Onset: 46-74-8321XctjdwztZrgpzycqyormk and screening for infectious disease (6 sources)Other specified abnormal immunological findings in serum; Translations: [Raised antibody titer]Onset: 13-79-8224GqlynofkClbmjkqgfxgl diseases of female pelvic organs (12 sources)Vaginitis; Translations: [Acute vaginitis]78-65-3022SqfufovrUiiyt disorders and dislocations; trauma-related (20 sources)Derangement of knee; Translations: [Unspecified internal derangement of left knee]Onset: 022493-85-7128RenowexMdter disorders and dislocations; trauma-related (7 sources)Derangement of knee; Translations: [Unspecified internal derangement of right knee]ChronicJoint disorders and dislocations; trauma-related (18 sources)Dislocation of toe joint; Translations: [Unspecified dislocation of left toe(s), subsequent encounter]EpisodicMalaise and fatigue (20 sources)Fatigue; Translations: [Other fatigue]Onset: EpisodicMeningitis (except that caused by tuberculosis or sexually transmitted disease) (18 sources)Meningitis; Translations: [Meningitis, unspecified]Episodic Miscellaneous mental health disorders (20 sources)Chronic insomnia; Translations: [Psychophysiologic insomnia] 78-81-0525DmqosqcDpps disorders (20 sources)Dysthymia; Translations: [Dysthymic disorder]Onset: 08-07-2018 20-79-0487BdiaoabVsupmfx (20 sources)Candidiasis; Translations: [Candidiasis, unspecified]Onset: 24-81-1055VrlajasaNafala and vomiting (18 sources)Nausea; Translations: [Nausea]Onset: 551489-08-3302Sbecjwvh Nutritional deficiencies (20 sources)Vitamin D deficiency; Translations: [Vitamin D deficiency, unspecified]ChronicNutritional deficiencies (18 sources)Cobalamin deficiency; Translations: [Deficiency of other specified B group vitamins]33-80-4945EkueehuuIbjjxjrdkbcuja (20 sources)Osteoarthritis; Translations: [Unspecified osteoarthritis, unspecified site]Onset: 39-74-1422WkdvdlpUbbet acquired deformities (7 sources)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; Translations: [Contracture, right ankle]ChronicOther aftercare (1 source)Other ocean transportation intermediary (current) drug therapy; Translations: [[employer] CURRENT DRUG THERAPY]Onset: 29-57-0000SluolfcwMweub connective tissue disease (3 sources)History of left total knee replacement; Translations: [Presence of left artificial knee joint]94-90-9518QnpqykxLdiwf connective tissue disease (3 sources)Presence of left artificial knee joint; Translations: [Presence of left artificial knee joint]Onset: 09-43-9560HtojsvaGlroi connective tissue disease (1 source)History of total knee arthroplasty; Translations: [Presence of left artificial knee joint]Onset: 047324-26-6236EdkbineUfnhm connective tissue disease (20 sources)Muscle pain; Translations: [Myalgia, unspecified site]EpisodicOther connective tissue disease (20 sources)Metatarsalgia of right foot; Translations: [Metatarsalgia, right foot]EpisodicOther connective tissue disease (18 sources)Fibromyalgia; Translations: [Fibromyalgia]EpisodicOther connective tissue disease (20 sources)Pain in left foot; Translations: [Pain in left foot]EpisodicOther connective tissue disease (20 sources)Pain in limb; Translations: [Pain in left finger(s)]EpisodicOther connective tissue disease (18 sources)Right achilles tendonitis; Translations: [Achilles tendinitis, right leg]EpisodicOther connective tissue disease (20 sources)Pain in right foot; Translations: [Pain in right foot]Onset: 04-19-6574BqukorkvMszsn connective tissue disease (18 sources)Plantar fasciitis of right foot; Translations: [Plantar fascial fibromatosis]EpisodicOther connective tissue disease (3 sources)Fibromyalgia; Translations: [FIBROMYALGIA]Onset: 75-31-4469Dvofpnud Other connective tissue disease (7 sources)Metatarsalgia of left foot; Translations: [Metatarsalgia, left foot] EpisodicOther connective tissue disease (15 sources)Pain in left lower limb; Translations: [Pain in left leg]05-06-2025 EpisodicOther connective tissue disease (7 sources)Achilles bursitis; Translations: [Achilles tendinitis, right leg] EpisodicOther connective tissue disease (7 sources)Plantar fascial fibromatosis; Translations: [Plantar fascial fibromatosis]EpisodicOther connective tissue disease (1 source)Trochanteric bursitis, right hipEpisodicOther diseases of bladder and urethra (18 sources)Bladder muscle dysfunction - overactive; Translations: [Overactive bladder]ChronicOther diseases of bladder and urethra (7 sources)Overactive bladder; Translations: [Overactive bladder]ChronicOther diseases of kidney and ureters (18 sources)Renal mass; Translations: [Other specified disorders of kidney and ureter]ChronicOther diseases of kidney and ureters (7 sources)Disorder of kidney and/or ureter; Translations: [Other specified disorders of kidney and ureter]Onset: 78-40-3496YqnfyffVxetz gastrointestinal disorders (16 sources)Irritable bowel syndrome; Translations: [Mixed irritable bowel syndrome]00-85-9302YcllbzvAozna gastrointestinal disorders (8 sources)Mixed irritable bowel syndrome; Translations: [Irritable bowel syndrome]Onset: 157774-19-0257UvofqfbSumve gastrointestinal disorders (20 sources)Diarrhea; Translations: [Diarrhea, unspecified]EpisodicOther gastrointestinal disorders (5 sources)Diarrhea, unspecified; Translations: [DIARRHEA UNSPECIFIED]Onset: 47-66-1717PhrjigreZlpyh gastrointestinal disorders (12 sources)Constipation alternates with diarrhea; Translations: [Other specified symptoms and signs involving the digestive system and abdomen] 74-01-0617JebzctalIkcur gastrointestinal disorders (16 sources)History of pancreatitis; Translations: [Personal history of other diseases of the digestive system]15-51-6552QmslohdaYfvwc gastrointestinal disorders (20 sources)Abdominal bloating; Translations: [Abdominal distension (gaseous)] 44-73-4455PmefjeahOpvel gastrointestinal disorders (2 sources)Personal history of other diseases of the digestive system; Translations: [Personal history of other diseases of digestive system]08-29-2024 EpisodicOther gastrointestinal disorders (3 sources)Fecal urgency; Translations: [Fecal urgency]Onset: 12-26-2024 76-25-8096VsqyeyeqDikgr gastrointestinal disorders (2 sources)Full incontinence of feces; Translations: [Full incontinence of feces]Onset: 553243-25-6922HisqouxsNuokj gastrointestinal disorders (9 sources)Disorder of gastrointestinal tract; Translations: [Other specified diseases of the digestive system]64-49-8560NxkqwkioUmryu gastrointestinal disorders (9 sources)Incontinence of feces; Translations: [Full incontinence of feces] 84-91-9766QkphbgmzHqoyx gastrointestinal disorders (13 sources)Urgent desire for stool; Translations: [Fecal urgency]12-26-2024 EpisodicOther gastrointestinal disorders (2 sources)Other specified diseases of the digestive system; Translations: [Other specified disorders of intestine]05-27-6463DxgdqrrbImesc hereditary and degenerative nervous system conditions (18 sources)Restless legs; Translations: [Restless legs syndrome]05-07-2024 ChronicOther hereditary and degenerative nervous system conditions (5 sources)Restless legs syndrome; Translations: [Restless legs syndrome (RLS)] 99-32-5398MteyufgZfpbw infections; including parasitic (7 sources)H/O: infectious disease; Translations: [Personal history of other infectious and parasitic diseases]EpisodicOther inflammatory condition of skin (6 sources)Itching ; Translations: [Pruritus, unspecified]22-29-3531Qfvtqyoh Other injuries and conditions due to external causes (18 sources)Other injury of other muscle(s) and tendon(s) at lower leg level, right leg, initial encounter; Translations: [Fitzpatrick splints, right, initial encounter]EpisodicOther injuries and conditions due to external causes (7 sources)Injury of muscle and tendon at lower leg level; Translations: [Other injury of other muscle(s) and tendon(s) at lower leg level, right leg, initial encounter]EpisodicOther liver diseases (5 sources)Steatosis of liver; Translations: [Fatty (change of) liver, not elsewhere classified]ChronicOther liver diseases (1 source)Fatty (change of) liver, not elsewhere classifiedChronicOther liver diseases (18 sources)Liver mass; Translations: [Hepatomegaly, not elsewhere classified] EpisodicOther lower respiratory disease (18 sources)Dyspnea on exertion; Translations: [Other forms of dyspnea]Episodic Other lower respiratory disease (18 sources)Cough; Translations: [Cough]EpisodicOther lower respiratory disease (7 sources)Dyspnea; Translations: [Other forms of dyspnea]EpisodicOther nervous system disorders (20 sources)Mononeuropathy of lower limb; Translations: [Unspecified mononeuropathy of left lower limb]ChronicOther nervous system disorders (1 source)Lesion of lateral popliteal nerve, left lower limb; Translations: [LESION LAT POP NERVE LT LOWER LIMB]Onset: 51-44-5756RqbhmrfMiumf nervous system disorders (1 source)Lesion of lateral popliteal nerve, unspecified lower limb; Translations: [LESION LAT POP NERVE UNS LOWER LIMB]Onset: 50-53-5429AingqcnQhnmr nervous system disorders (2 sources)Right-sided piriformis syndrome; Translations: [Lesion of sciatic nerve, right lower limb]ChronicOther nervous system disorders (1 source)Lesion of sciatic nerve, right lower limbChronicOther nervous system disorders (1 source)Postoperative pain ; Translations: [Other acute postprocedural pain] 61-59-1493DssdayjpWlbug nervous system disorders (8 sources)Numbness and tingling sensation of skin; Translations: [Anesthesia of skin]29-46-3921JvlpijrkArfij non-traumatic joint disorders (18 sources)Multiple joint pain; Translations: [Pain in unspecified joint] EpisodicOther non-traumatic joint disorders (18 sources)Instability of joint of left foot; Translations: [Other instability, left foot]EpisodicOther non-traumatic joint disorders (14 sources)Arthralgia of the lower leg; Translations: [Pain in right knee] EpisodicOther non-traumatic joint disorders (1 source)Pain in left knee; Translations: [Pain in joint, lower leg]02-25-2025 EpisodicOther nutritional; endocrine; and metabolic disorders (20 sources)Obese class I; Translations: [Body mass index (BMI) 34.0-34.9, adult]ChronicOther nutritional; endocrine; and metabolic disorders (7 sources)Obesity; Translations: [Obesity, unspecified]ChronicOther nutritional; endocrine; and metabolic disorders (12 sources)Body mass index 30+ - obesity; Translations: [Body mass index (BMI) 34.0-34.9, adult]85-91-5541QocrczwFrcpl nutritional; endocrine; and metabolic disorders (15 sources)Hypocalcemia; Translations: [Hypocalcemia]80-65-8525WwwdchwVzzno nutritional; endocrine; and metabolic disorders (4 sources)History of iron deficiency; Translations: [Personal history of other endocrine, nutritional and metabolic disease]31-99-5635EvxfzrppLzuqi upper respiratory disease (12 sources)Nasal congestion; Translations: [Nasal congestion]52-46-3619Ezmucktq Other upper respiratory infections (20 sources)Chronic sinusitis; Translations: [Chronic sinusitis, unspecified] 26-84-8582GzowjirTfawj upper respiratory infections (20 sources)Acute maxillary sinusitis; Translations: [Acute recurrent maxillary sinusitis]Onset: 350825-39-0438XperqtnjThjklgerbe disorders (not diabetes) (2 sources)Chronic pancreatitis; Translations: [Other chronic pancreatitis] ChronicPancreatic disorders (not diabetes) (19 sources)Other specified diseases of pancreas; Translations: [Pancreatic insufficiency]EpisodicProlapse of female genital organs (20 sources)Uterine prolapse; Translations: [Uterovaginal prolapse, unspecified] Onset: 95-17-2691PtemtonBaoiynzc codes; unclassified (1 source)Presence of functional implant, unspecified; Translations: [PRESENCE FUNCTIONAL IMPLANT UNS]Onset: 61-79-1390UuosftyPgvbvbcc codes; unclassified (7 sources)Sleep dysfunction with sleep stage disturbance; Translations: [Other sleep disorders]Onset: 423497-86-8450EtttwsjNpybcmpd codes; unclassified (20 sources)Obstructive sleep apnea syndrome; Translations: [Obstructive sleep apnea]Onset: 696504-74-0711SpiobywOampzkax codes; unclassified (10 sources)Daytime somnolence; Translations: [Other hypersomnia]05-07-2024 ChronicResidual codes; unclassified (5 sources)Other hypersomnia; Translations: [Hypersomnia, unspecified]07-17-2024 ChronicResidual codes; unclassified (5 sources)Obstructive sleep apnea (adult) (pediatric); Translations: [Obstructive sleep apnea (adult)(pediatric)]80-22-3441GmmveniXguqkqkm codes; unclassified (20 sources)Reduced libido; Translations: [Decreased libido]EpisodicResidual codes; unclassified (7 sources)Tobacco user; Translations: [Tobacco use]EpisodicResidual codes; unclassified (7 sources)Insomnia; Translations: [Insomnia, unspecified]EpisodicSkin and subcutaneous tissue infections (20 sources)Cutaneous abscess of left foot; Translations: [Cellulitis of toe of left foot]EpisodicSpondylosis; intervertebral disc disorders; other back problems (5 sources)Spondylosis without myelopathy or radiculopathy, cervical region; Translations: [Other cervical disc degeneration, unspecified cervical region] Onset: 02-08-1837IysxtlmUcbjtwfevfv; intervertebral disc disorders; other back problems (20 sources)Neck pain; Translations: [Cervicalgia]Onset: 52-49-0451Tmdwoejy Substance-related disorders (20 sources)Hypnotic dependence; Translations: [Sedative, hypnotic or anxiolytic dependence, uncomplicated]97-79-4589QdoqgyeWbovlscd lupus erythematosus and connective tissue disorders (7 sources)Autoimmune disease; Translations: [Autoimmune disease, not elsewhere classified]Onset: 97-67-9498GkedpjcEfzuxxf disorders (20 sources)Non-toxic uninodular goiter; Translations: [Nontoxic single thyroid nodule]Onset: 65-06-7624QscswwgMehikhpboctt (2 sources)Left knee pain, unspecified nktqenwsbb26-49-2235 Past or Other Problems Problem ClassificationProblemDateDocumented DateEpisodic/ChronicBacterial infection; unspecified site (7 sources)Bartonellosis; 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, unspecified]Onset: 510300-31-4184RsorpwojHzffh aftercare (7 sources)Surgical follow-up; Translations: [Surgery follow-up examination] Onset: 46-10-9139WtudpvguJqzio circulatory disease (1 source)Other specified symptoms and signs involving the circulatory and respiratory systems; Translations:[OTH SPEC SX SIGNS INVLV CIRC RS]Onset: 07-67-3245JyiraaydWtmvr connective tissue disease (1 source)Short Achilles tendon (acquired), left ankle; Translations: [SHORT ACHILLES TENDON ACQ LT ANKLE]Onset: 00-03-6111ItsxfqmoGtjqf connective tissue disease (1 source)Neuralgia and neuritis, unspecified; Translations: [NEURALGIA AND NEURITIS UNSPECIFIED]Onset: 08-99-5364RjnfxwzcQvyfh connective tissue disease (3 sources)Pain in right foot; Translations: [PAIN IN RIGHT FOOT]Onset: 25-04-0153HhfgomaeOvgtp connective tissue disease (1 source)Pain in left foot; Translations: [PAIN IN LEFT FOOT]Onset: 07-09-2022 EpisodicOther connective tissue disease (1 source)Pain in right lower leg; Translations: [PAIN IN RIGHT LOWER LEG]Onset: 43-42-8001OvlqmqaqOyqab connective tissue disease (4 sources)Myalgia, unspecified site; Translations: [MYALGIA UNSPECIFIED SITE] Onset: 06-28-3546VhcjotmvMrtbk connective tissue disease (7 sources)Enthesopathy of hip region; Translations: [Enthesopathy of hip region]Onset: 07-13-4516LrmqqxvzXflzj connective tissue disease (1 source)Other specified enthesopathies of left lower limb, excluding foot; Translations: [Other specified enthesopathies of left lower limb, excluding foot]Onset: 61-63-2518OfnlyvntImnyp gastrointestinal disorders (8 sources)Other specified symptoms and signs involving the digestive system and abdomen; Translations: [OTH SPEC SX SIGNS DIGESTV SYS ABD]Onset: 01-18-2023 EpisodicOther gastrointestinal disorders (8 sources)Abdominal distension (gaseous); Translations: [Flatulence, eructation, and gas pain]Onset: 204277-58-3928GbvkcpqeVeybf infections; including parasitic (20 sources)Lyme disease; Translations: [Lyme disease, unspecified]Onset: 507624-75-0808UxwqdxlyCjzby liver diseases (7 sources)Large liver; Translations: [Hepatomegaly, not elsewhere classified] Onset: 45-17-4939ZjaoxlxwWrjuv nervous system disorders (7 sources)Paresthesia; Translations: [Paresthesia of skin]Onset: 08-07-2018 EpisodicOther nervous system disorders (2 sources)Other acute postprocedural pain; Translations: [Other acute postprocedural pain]Onset: 08-61-1483XjcdjjapOboxk non-traumatic joint disorders (4 sources)Pain in unspecified ankle and joints of unspecified foot; Translations: [PAIN IN UNSPECIFIED ANKLE]Onset: 15-98-2982DmmwxgdwQckkh non- traumatic joint disorders (7 sources)Joint pain; Translations: [Pain in unspecified joint]Onset: 28-74-6202XbqzuczaStxrf screening for suspected conditions (not mental disorders or infectious disease) (11 sources)Encounter for screening mammogram for malignant neoplasm of breast; Translations: [Abnormal findings diagnostic imaging of liver+biliary tract] Onset: 88-37-5146DrcgcktrHzlix skin disorders (7 sources)Mass of thoracic structure; Translations: [Swelling, mass, or lump in chest]Onset: 72-33-2294YyaceykyMwqbvtny codes; unclassified (1 source)Other specified postprocedural states; Translations: [OTH SPECIFIED POSTPROCEDURAL STATES]Onset: 81-68-5902MzgkcnoxHsdejjmd codes; unclassified (1 source)Family history of malignant neoplasm of breast; Translations: [FAMILY HX MALIG NEOPLASM OF BREAST]Onset: 08-03-9226CtfnbetgCmehbjysbfye (18 sources)Left lumbar pain; Translations: [Left lumbar pain] Results Test NameValueInterpretationReference RangeFacilityBasophils Auto (Bld) [#/Vol] Ordered By: Netta Montoya on 85-71-2392Grbozsqde (Bld) [#/Vol]0.1 10 3/uL0.0-0.1 [facility] CenterBasophils/100 WBC Auto (Bld)Ordered By: Netta Montoya on 28-65-7443Exrvgxors/100 WBC (Bld)0.6 %0.2-2.0[facility] CenterEosinophils/100 WBC Auto (Bld)Ordered By: Netta Montoya on 06-23-2025 Eosinophils/100 WBC (Bld)4.1 %0.9-7.0[facility] Erythrocyte distribution width Auto (RBC) [Ratio]Ordered By: Netta Montoya on 46-75-5676Sjmivwtvebk distribution width (RBC) [Ratio]12.9 %11.0-15.0[facility] CenterGlobulin Calc (S) [Mass/Vol]Ordered By: Netta Montoya on 47-89-9615Choexcyz (S) [Mass/Vol]3.7 g/dLFisher-Titus Medical Center Glomerular filtration rate (GFR) estimation in non- AmericanOrdered By: Netta Montoya on 42-86-4155WXD/1.73 sq M.predicted among non-blacks MDRD (S/P/Bld) [Vol rate/Area]mL/min/{1.73_m2}>=60 mL/min/1.73m 2FLakeHealth Beachwood Medical CenterGlucose mean value [Mass/volume] in Blood Estimated from glycated hemoglobinOrdered By: Netta Montoya on 71-32-9570Ofqceig glucose Estimated from glycated hemoglobin (Bld) [Mass/Vol]137 mg/dLFisher-Titus Medical Center Hematocrit Auto (Bld) [Volume fraction]Ordered By: Netta Montoya on 06-23-2025 Hematocrit (Bld) [Volume fraction]43.6 %36.0-48.0[facility] CenterHemoglobin A1c percentageOrdered By: Netta Montoya on 45-92-9994PnH9n (Bld) [Mass fraction]6.4 %High4.5-6.2FLakeHealth Beachwood Medical CenterComment on above:ADA RECOMMENDED LIMIT 4.0 - 6.0ADA THERAPEUTIC TARGET < 7.0ACTION SUGGESTED> 7.0Hemoglobin [Mass/volume] in BloodOrdered By: Netta Montoya on 67-54-0650Lcxxtwdxgj (Bld) [Mass/Vol]15.1 g/dL12.0-16.0[facility] CenterLaboratory - Chemistry and Chemistry - challengeOrdered By: Netta Montoya on 64-22-7339Ylxwikt [Mass/Vol]4.1 g/dL3.4-5.0[facility] CenterALP [Catalytic activity/Vol]77 U/Q47-307AuiksrupjFisher-Titus Medical Center ALT [Catalytic activity/Vol]33 U/H55-86ZlubgpwvlFisher-Titus Medical CenterAST [Catalytic activity/Vol]18 U/W25-50NysxelrfpFisher-Titus Medical CenterBilirubin [Mass/Vol]0.3 mg/dL0.2-1.0[facility] CenterCalcium [Mass/Vol]9.7 mg/dL8.5-10.1FLakeHealth Beachwood Medical CenterChloride [Moles/Vol]103 mmol/L 98-107[facility] CenterCO2 [Moles/Vol]28.9 mmol/L21.0-32.0 [facility] CenterCreatinine [Mass/Vol]0.66 mg/dL0.55-1.02 [facility] CenterFree T4 [Mass/Vol]1.12 ng/dL0.76-1.46[facility] CenterGFR/1.73 sq M.predicted MDRD (S/P/Bld) [Vol rate/Area] mL/min/{1.73_m2}>=60 mL/min/1.73m 2FLakeHealth Beachwood Medical CenterGlucose [Mass/Vol]131 mg/rUCbkl53-056RuvwynqixFisher-Titus Medical CenterPotassium [Moles/Vol]4.8 mmol/L3.5-5.1FLakeHealth Beachwood Medical CenterProtein [Mass/Vol] 7.8 g/dL6.4-8.2FMercy Health St. Elizabeth Boardman Hospitalodium [Moles/Vol]140 mmol/L 136-145[facility] CenterTSH Qn1.763 m[IU]/L0.358-3.740[facility] CenterUrea nitrogen [Mass/Vol]18.0 mg/dL7.0-18.0[facility] CenterUrea nitrogen/Creatinine [Mass ratio]27.3 mg/mgFisher-Titus Medical CenterLaboratory - Hematology and Cell countsOrdered By: Netta Montoya on 22-65-8454Cmceywkq granulocytes/100 WBC (Bld)0.2 %0.0-0.5FLakeHealth Beachwood Medical CenterLeukocytes [#/volume] corrected for nucleated erythrocytes in Blood by Automated counOrdered By: Netta Montoya on 05-23-0825CID corrected for nucl RBC Auto (Bld) [#/Vol]8.6 10 3/uL4.0-11.0[facility] CenterLymphocytes Auto (Bld) [#/Vol]Ordered By: Netta Montoya on 97-10-8883Kwnrpisudws (Bld) [#/Vol]1.8 10 3/uL1.2-3.8[facility] Medical CenterLymphocytes/100 WBC Auto (Bld)Ordered By: Netta Montoya on 06-23-2025 Lymphocytes/100 WBC (Bld)20.7 %20.5-60.0[facility] Auto (RBC) [Entitic mass]Ordered By: Netta Montoya on 36-59-6834KUK (RBC) [Entitic mass]31.4 pg26.7-34.0[facility] HospitalHC Auto (RBC) [Mass/Vol]Ordered By: Netta Montoya on 49-50-5116DZTC (RBC) [Mass/Vol]34.6 g/dL 29.9-35.2FLakeHealth Beachwood Medical CenterMCV Auto (RBC) [Entitic vol]Ordered By: Netta Montoya on 50-80-2551SKV (RBC) [Entitic vol]90.6 fL81.0-99.0[facility] CenterMonocytes Auto (Bld) [#/Vol]Ordered By: Netta Montoya on 85-32-5944Pnxcwcnzr (Bld) [#/Vol]0.4 10 3/uL0.3-0.8[facility] CenterMonocytes/100 WBC Auto (Bld)Ordered By: Netta Montoya on 06-23-2025 Monocytes/100 WBC (Bld)4.6 %1.7-12.0[facility] Medical CenterNeutrophils Auto (Bld) [#/Vol]Ordered By: Netta Montoya on 44-29-8698Ctsdaqwingc (Bld) [#/Vol]6.0 10 3/uL1.4-6.5FLakeHealth Beachwood Medical CenterNeutrophils/100 WBC Auto (Bld)Ordered By: Netta Montoya on 08-07-6097Asaebkiqswf/100 WBC (Bld)69.8 % 43.0-75.0[facility] CenterNo Panel InformationOrdered By: Netta Montoya on 92-26-1412Onjnmhvzqlr # (Auto)0.4 10 3/uL0.0-0.7FLakeHealth Beachwood Medical CenterImmature Granulocyte # (Auto)0.02 10 3/uL0.00-0.03[facility] Medical CenterPlatelet mean volume Auto (Bld) [Entitic vol]Ordered By: Netta Montoya on 57-30-7385Zzswleav mean volume (Bld) [Entitic vol]9.5 fL9.5-13.5 [facility] Medical CenterPlatelets Auto (Bld) [#/Vol]Ordered By: Netta Montoya on 00-23-7885Yzwfdmyki (Bld) [#/Vol]321 10 3/pM056-051VunzhszfqFisher-Titus Medical CenterRBC Auto (Bld) [#/Vol]Ordered By: Netta Montoya on 59-87-3614XFB (Bld) [#/Vol]4.81 10 6/uL4.20-5.40[facility] Hospitalerum or plasma albumin/globulin mass ratioOrdered By: Netta Montoya on 06-23-2025 Albumin/Globulin [Mass ratio]1.1 {ratio}[facility] Hospitalerum or plasma anion gap determinationOrdered By: Netta Montoya on 56-04-0347Qebty gap [Moles/Vol]12.9 mmol/LFLakeHealth Beachwood Medical CenterLaboratory - Chemistry and Chemistry - challengeOrdered By: Netta Montoya on 45-11-6201Scfhuvtla Ql (U) NegativeFisher-Titus Medical CenterGlucose (U) [Mass/Vol]NegativeFisher-Titus Medical CenterKetones Ql (U)NegativeFisher-Titus Medical Center pH (U)5 [pH][facility] Hospitalpecific gravity (U) [Rel density] 1.000[facility] Medical CenterUrobilinogen (U) [Mass/Vol]0.2 mg/dL [facility] CenterLaboratory - Specimen informationOrdered By: Netta Montoya on 91-57-0624Zeelfhkfmy (U)clearFisher-Titus Medical Center Color (U)yellowFisher-Titus Medical CenterLaboratory - UrinalysisOrdered By: Netta Montoya on 47-84-7669Agpcwnnyr esterase Test strip Ql (U)Negative [facility] CenterNitrite Ql (U)[facility] HamiltonProtein Ql (U)+[facility] CenterNo Panel InformationOrdered By: Netta Montoya on 21-23-1187Ahuyg Occult BloodNegative [facility] CenterRelevant diagnostic tests/laboratory data Narrativeon 04-29-5913Ftjh risk assessmentyeOhio State Health System. Work Phone: MEDK REVIEWDocumentation of current medications (procedure)[facility] Work Phone: meds REVIEWDMedications reviewed with [facility] Work Phone: XRAY HXof the left knee on 04/07/2025 at [place] [facility]. Work Phone: Fall risk assessmentnoST. [facility] Work Phone: MEDY REVIEWDocumentation of current medications (procedure)[facility] Work Phone: MEDN REVIEWDMedications reviewed with [facility] Work Phone: Estimated glomerular filtration rate (GFR) non- AmericanOrdered By: Netta Montoya on 77-67-7543EAN/1.73 sq M.predicted among non-blacks MDRD (S/P/Bld) [Vol rate/Area]mL/min/{1.73_m2}>=60 mL/min/1.73m 2 [facility] CenterGlucose mean value [Mass/volume] in Blood Estimated from glycated hemoglobinOrdered By: Netta Montoya on 74-44-0071Tzegbhv glucose Estimated from glycated hemoglobin (Bld) [Mass/Vol]131 mg/dLFisher-Titus Medical CenterHemoglobin A1c percentageOrdered By: Netta Montoya on 60-72-0636YbO2t (Bld) [Mass fraction]6.2 %4.5-6.2FLakeHealth Beachwood Medical CenterComment on above:ADA RECOMMENDED LIMIT 4.0 - 6.0ADA THERAPEUTIC TARGET < 7.0ACTION SUGGESTED> 7.0Laboratory - Chemistry and Chemistry - challengeOrdered By: Netta Montoya on 71-60-6896Fxbqjew [Mass/Vol]9.7 mg/dL8.5-10.1FLakeHealth Beachwood Medical CenterChloride [Moles/Vol]103 mmol/Q22-232MufrhqkjfFisher-Titus Medical CenterCO2 [Moles/Vol]27.3 mmol/L21.0-32.0[facility] CenterCreatinine [Mass/Vol]0.76 mg/dL0.55-1.02[facility] GFR/1.73 sq M.predicted MDRD (S/P/Bld) [Vol rate/Area]mL/min/{1.73_m2}>=60 mL/min/1.73m 2FLakeHealth Beachwood Medical CenterGlucose [Mass/Vol]164 mg/dLHigh 74-106[facility] CenterPotassium [Moles/Vol]4.1 mmol/L3.5-5.1 [facility] Hospitalodium [Moles/Vol]140 mmol/B762-427EyvdqaajeFisher-Titus Medical CenterUrea nitrogen [Mass/Vol]16.0 mg/dL7.0-18.0[facility] CenterUrea nitrogen/Creatinine [Mass ratio]21.1 mg/mgFisher-Titus Medical CenterMicroalbumin [Mass/volume] in UrineOrdered By: Netta Montoya on 76-89-2919Ypctwlk DL <= 20 mg/L (U) [Mass/Vol]mg/dL<=30.0[facility] CenterNo Panel InformationOrdered By: Netta Montoya on 69-17-1232Legsl Random Nqrlwgkokk80.02 mg/dL20.00-300.00[facility] Hospitalerum or plasma anion gap determinationOrdered By: Netta Montoya on 14-76-7867Olafi gap [Moles/Vol]13.8 mmol/LFLakeHealth Beachwood Medical Center36on 23-96-917637Egnlbv Scientific reps notified.[facility]36on [id number] called back, appt scheduled for 03/31/2025 at 1030.[facility] HospitalX-ray reportOrdered By: Bar Sims on 04-94-0966Metic reportMARY [facility] Main [address] [address] XRay Report Signed Patient: Emily Macias MR#: [id number] : 1960 Acct:[id number] Age/Sex: 64 / F ADM Date: 5 Loc: XD Room: Type: [facility] Attending Dr: Jb Grady APRN Copies to: [...] Sims Jr., DMonalisaOMonalisa12/26/2024 1:42 PM Dictation Location: [place] [address] Transcribed By: [facility] 12/26/24 1342 Dictated By: Bar Sims Jr, DO 12/26/24 1342 Signed By: 12/26/24 1342 [facility] CenterXR KUBon 52-73-6754SV [facility] Main [place] [id number] XRay Report Signed Patient: Emily Macias MR#: [id number] : 1960 Acct:[id number] Age/Sex: 64 / F ADM Date: 12/26/24 Loc: XD Room: Type: [facility] Attending Dr: Jb Grady [employer] Copies to: Jb Grady APRN Ordering Provider: [...] Sims Jr., D.OMonalisa12/26/2024 1:42 PM Dictation Location: [place] [address] Transcribed By: [facility] 12/26/24 1342 Dictated By: Bar Sims Jr, DO 12/26/24 1342 Signed By: 12/26/24 1342[facility] Physician GroupBasophils Auto (Bld) [#/Vol]on 52-68-8696Mnbfjzjmp (Bld) [#/Vol]Automated basophil count0.0-0.1FLakeHealth Beachwood Medical CenterBasophils/100 WBC Auto (Bld)on 26-56-5584Pjjvvvlmc/100 WBC (Bld)Automated basophil %0.2-2.0[facility] Eosinophils/100 WBC Auto (Bld)on 50-22-3353Yxsmbdqsnuv/100 WBC (Bld)Automated eosinophil %0.9-7.0[facility] CenterErythrocyte distribution width Auto (RBC) [Ratio]on 99-35-8650Szgdiwfgpwf distribution width (RBC) [Ratio]Erythrocyte distribution width [Ratio] by Automated count11.0-15.0 [facility] CenterEstimated glomerular filtration rate (GFR) non- Americanon 36-87-2879LAJ/1.73 sq M.predicted among non-blacks MDRD (S/P/Bld) [Vol rate/Area]Estimated glomerular filtration rate (GFR) non->=60 mL/min/1.73m 2FLakeHealth Beachwood Medical CenterGlobulin Calc (S) [Mass/Vol]on 61-88-8418Qswgkzyf (S) [Mass/Vol]Serum globulin measurement by calculation (mass/volume)[facility] CenterHematocrit Auto (Bld) [Volume fraction]on 88-33-2636Xciyutqgsy (Bld) [Volume fraction]Hematocrit [Volume Fraction] of Blood by Automated count36.0-48.0[facility] Medical CenterHemoglobin [Mass/volume] in Bloodon 61-39-9842Gcdkcicunj (Bld) [Mass/Vol] Hemoglobin [Mass/volume] in Blood12.0-16.0[facility] Laboratory - Chemistry and Chemistry - challengeon 19-07-5094Ryilwrv [Mass/Vol] 3.7 g/dL3.4-5.0[facility] CenterALP [Catalytic activity/Vol]81 U/D43-339HgqrxtigsFisher-Titus Medical CenterALT [Catalytic activity/Vol]23 U/L 14-59[facility] CenterAST [Catalytic activity/Vol]18 U/L15-37 [facility] CenterBilirubin [Mass/Vol]0.3 mg/dL0.2-1.0[facility] CenterCalcium [Mass/Vol]9.6 mg/dL8.5-10.1FLakeHealth Beachwood Medical CenterChloride [Moles/Vol]105 mmol/J38-263PtskcntrcFisher-Titus Medical CenterCO2 [Moles/Vol]30.0 mmol/L21.0-32.0[facility] Creatinine [Mass/Vol]0.80 mg/dL0.55-1.02[facility] GFR/1.73 sq M.predicted MDRD (S/P/Bld) [Vol rate/Area]mL/min/{1.73_m2}>=60 mL/min/1.73m 2FLakeHealth Beachwood Medical CenterGlucose [Mass/Vol]110 mg/dLHigh 74-106[facility] CenterPotassium [Moles/Vol]4.9 mmol/L3.5-5.1 [facility] CenterProtein [Mass/Vol]7.1 g/dL6.4-8.2FMercy Health St. Elizabeth Boardman Hospitalodium [Moles/Vol]144 mmol/A356-913BmulsthfcFisher-Titus Medical CenterUrea nitrogen [Mass/Vol]21.0 mg/dLHigh7.0-18.0[facility] Medical CenterUrea nitrogen/Creatinine [Mass ratio]26.3 mg/mgFisher-Titus Medical CenterLaboratory - Hematology and Cell countson 93-00-0029Khiowfuu granulocytes/100 WBC (Bld)0.3 %0.0-0.5FLakeHealth Beachwood Medical Center Leukocytes [#/volume] corrected for nucleated erythrocytes in Blood by Automated counon 56-65-8604MSR corrected for nucl RBC Auto (Bld) [#/Vol]Leukocytes [#/volume] corrected for nucleated erythrocytes in Blood by Automated coun 4.0-11.0[facility] Medical CenterLymphocytes Auto (Bld) [#/Vol]on 20-49-9045Vjlckygukak (Bld) [#/Vol]Lymphocytes [#/volume] in Blood by Automated count1.2-3.8[facility] CenterLymphocytes/100 WBC Auto (Bld)on 43-28-1796Ilwidinnmqh/100 WBC (Bld)Lymphocytes/100 leukocytes in Blood by Automated count20.5-60.0[facility] HospitalH Auto (RBC) [Entitic mass]on 43-27-7437SUR (RBC) [Entitic mass]MCH [Entitic mass] by Automated count 26.7-34.0[facility] Medical CenterMCHC Auto (RBC) [Mass/Vol]on 70-90-2335QHGG (RBC) [Mass/Vol]MCHC [Mass/volume] by Automated count29.9-35.2 [facility] CenterMCV Auto (RBC) [Entitic vol]on 77-41-0432KJN (RBC) [Entitic vol]MCV [Entitic volume] by Automated count81.0-99.0[facility] CenterMonocytes Auto (Bld) [#/Vol]on 03-69-3228Esqmvxpyj (Bld) [#/Vol]Automated blood monocyte count0.3-0.8[facility] Monocytes/100 WBC Auto (Bld)on 81-22-0678Svwzzpzbx/100 WBC (Bld)Automated monocyte %1.7-12.0[facility] CenterNeutrophils Auto (Bld) [#/Vol]on 28-28-1892Tbmsvksnlgy (Bld) [#/Vol]Neutrophils [#/volume] in Blood by Automated count1.4-6.5FLakeHealth Beachwood Medical CenterNeutrophils/100 WBC Auto (Bld)on 06-66-7176Uzwbsugktbx/100 WBC (Bld)Automated neutrophil %43.0-75.0 [facility] CenterNo Panel Informationon 56-40-3224Vknilmkknfa # (Auto)0.2 10 3/uL0.0-0.7FLakeHealth Beachwood Medical CenterImmature Granulocyte # (Auto)0.02 10 3/uL0.00-0.03[facility] Medical CenterPlatelet mean volume Auto (Bld) [Entitic vol]on 01-76-2934Leconory mean volume (Bld) [Entitic vol] Platelet mean volume [Entitic volume] in Blood by Automated count9.5-13.5 [facility] CenterPlatelets Auto (Bld) [#/Vol]on 11-10-2024 Platelets (Bld) [#/Vol]Platelets [#/volume] in Blood by Automated qitar044-399 [facility] CenterRBC Auto (Bld) [#/Vol]on 91-18-2020RXD (Bld) [#/Vol]Erythrocytes [#/volume] in Blood by Automated count4.20-5.40[facility] Hospitalerum or plasma albumin/globulin mass ratioon 11-10-2024 Albumin/Globulin [Mass ratio]Serum or plasma albumin/globulin mass ratio [facility] Hospitalerum or plasma anion gap determinationon 58-48-7746Gkvys gap [Moles/Vol]Serum or plasma anion gap determinationFisher-Titus Medical CenterCampy coli+jejuni BD MaxOrdered By: Jb Grady on 09-30-2024. coli+jejuni tuf gene DAISY+probe Ql (Stl)Campy coli+jejuni BD Max NegativeFisher-Titus Medical CenterComment on above:Campylobacter test includes C. jejuni and C. coli.Clostridioides difficile toxin B tcdB gene [Presence] in Stool by DAISY with probe deteOrdered By: Jb Grady on 09-30-2024. difficile toxin B tcdB gene DAISY+probe Ql (Stl)Clostridioides difficile toxin B tcdB gene [Presence] in Stool by DAISY with probe deteNegative [facility] CenterComment on above:Testing performed by RT-PCR Clostridium Difficileon 67-72-3308Jtdquzkmgpv DifficileNegativeNormalNegativeThe [facility] Physician GroupComment on above:Result Comment: Testing performed by RT-PCR PERFORMED BY: [place] [address] PATHOLOGIST RESTORATIVE COORDINATOR BENNY ARAUJO M.D.Performed By: #### STCYRPTOAG, GIARDIA #### [facility] , #### CDT, ENT BACT PANEL #### [facility] [address] [place] [address] USACryptosporidium Antigen Stoolon 46-05-5835Ehypkpcrylygnah Antigen StoolNegativeNormalNegativeThe [facility] Physician GroupComment on above:Order Comment: SOURCE OF SPECIMEN: STOOLPerformed By: #### STCYRPTOAG, GIARDIA #### [facility] , #### CDT, ENT BACT PANEL #### [facility] [address] [place] [address] USACryptosporidium sp Ag [Presence] in Stool by Immunoassay Ordered By: Jb Grady on 29-44-7554Apsjygmbyftgdqr sp Ag IA Ql (Stl) Cryptosporidium sp Ag [Presence] in Stool by ImmunoassayNegativeFisher-Titus Medical CenterGiardia Lamblia Ag EIA Stoolon 47-78-9584Rkyogkk Lamblia Ag EIA StoolNegativeNormalNegativeThe [facility] Physician GroupComment on above: Order Comment: SOURCE OF SPECIMEN: STOOLResult Comment: Performed at: [address] [id number] Tube Knitter: Tra Bay PhD, Phone: [phone] PERFORMED BY: [place] [address] PATHOLOGIST RESTORATIVE COORDINATOR BENNY ARAUJO M.D.Performed By: #### STCYRPTOAG, GIARDIA #### [facility] , #### CDT, ENT BACT PANEL #### [place] [address] USAGiardia lamblia Ag [Presence] in Stool by Immunoassay Ordered By: Jb Grady on 09-30-2024G. lamblia Ag IA Ql (Stl)Giardia lamblia Ag [Presence] in Stool by ImmunoassayNegativeFisher-Titus Medical Center Comment on above:Performed at: - [facility] [id number] Director: Tra Bay PhD, Phone: [phone] BD MaxOrdered By: Jb Grady on 08-45-2205Fplkaikrcx sp spaO gene DAISY+probe Ql (Stl)Salmonella sp spaO gene [Presence] in Stool by DAISY with probe detection NegativeFisher-Titus Medical CenterComment on above:Testing performed by RT-PCRShigella Tox 1+2 BD MaxOrdered By: Jb Grady on 09-30-2024E. coli stx1+stx2 genes DAISY+probe Ql (Stl)Escherichia coli Stx1 and Stx2 toxin stx1+stx2 genes [Presence] in Stool by DAISY withNegativeFisher-[facility] Center Shigellosis BD MaxOrdered By: Jb Grady on 34-77-1068Vbolyvva species+EIEC invasion plasmid antigen H ipaH gene DAISY+probe Ql (Stl)Shigella species+EIEC invasion plasmid antigen H ipaH gene [Presence] in Stool by NAANegativeFisher-Titus Medical CenterComment on above:Shigella sp. test includes Shigella species and Enteroinvasive E. coli (EIEC).Stool Bacterial Panelon 09-30-2024 CampylobacterNegativeNormalNegativeThe [facility] Physician GroupComment on above:Result Comment: Campylobacter test includes C. jejuni and C. coli. Performed By: #### STCYRPTOAG, GIARDIA #### [facility] , #### CDT, ENT BACT PANEL #### [place] [address] USASalmonella SpeciesNegativeNormalNegativeThe [facility] Physician GroupComment on above:Result Comment: Testing performed by RT-PCR PERFORMED BY: [place] [address] PATHOLOGIST RESTORATIVE COORDINATOR BENNY ARAUJO M.D.Performed By: #### STCYRPTOAG, GIARDIA #### [facility] , #### CDT, ENT BACT PANEL #### [place] [address] USAShiga Toxin (E coli O157+oth)NegativeNormalNegativeThe [facility] Physician GroupComment on above:Performed By: #### STCYRPTOAG, GIARDIA #### [facility] , #### CDT, ENT BACT PANEL #### [place] [address] USAShigella SpeciesNegativeNormalNegativeThe [facility] Physician GroupComment on above:Result Comment: Shigella sp. test includes Shigella species and Enteroinvasive E. coli (EIEC).Performed By: #### STCYRPTOAG, GIARDIA #### [facility] , #### CDT, ENT BACT PANEL #### [place] [address] PEY95ss [id number] for pt to call clinic to schedule consult with Dr. Mccord for Surgical intervention vs SCS. Please let consumer loan underwriter or Nayana Crenshaw MA know when scheduled so we may notify [employer] reps.[facility] HospitalTelephoneon [phone] Emily Macias 1960 F Date Provider Department Center 09/18/2024 [facility] SURG Second Fl No family history on file Reason for Visit and Comments: REFERRAL CONSULT [Other][facility] HospitalXR KUBon [id number] [facility] Main [place] [address] [place] [address] XRay Report Signed Patient: Emily Macias MR#: [id number] : 1960 Acct:[id number] Age/Sex: 63 / F ADM Date: 08/29/24 Loc: XD Room: Type: [facility] Attending Dr: Jb Grady TEAROOM HOST Copies to: Jb Grady APRN Ordering Provider: [...] Sims Jr., D.O.08/29/2024 3:27 PM Dictation Location: [place] [address] Transcribed By: [facility] 08/29/24 1527 Dictated By: Bar Sims Jr, DO 08/29/24 1526 Signed By: 08/29/24 1527[facility] Physician RotdzVkD8b HPLC (Bld) [Mass fraction] on 79-69-6577TbF8v (Bld) [Mass fraction]Hemoglobin A1c/Hemoglobin.total in Blood by HPLCFisher-Titus Medical CenterEstimated glomerular filtration rate (GFR) non- Americanon 68-02-5101NEW/1.73 sq M.predicted among non-blacks MDRD (S/P/Bld) [Vol rate/Area]Estimated glomerular filtration rate (GFR) non- >=60 mL/min/1.73m [address] [place], [place] [address]Globulin Calc (S) [Mass/Vol]on 50-54-0728Unbjkjwv (S) [Mass/Vol]Serum globulin measurement by calculation (mass/volume)[facility] Medical CenterIron binding capacity [Mass/volume] in Serum or Plasmaon 53-03-3102Udbq binding capacity [Mass/Vol]Iron binding capacity [Mass/volume] in Serum or Plasma 250.0-450.0[facility] Medical CenterIron saturation [Mass Fraction] in Serum or Plasmaon 40-78-9025Xojq saturation [Mass fraction]Iron saturation [Mass Fraction] in Serum or PlasmaFisher-Titus Medical CenterLaboratory - Chemistry and Chemistry - challengeon 30-88-5955Foclpwe [Mass/Vol]3.8 g/dL 3.4-5.0[facility] CenterALP [Catalytic activity/Vol]81 U/L46-116 [facility] CenterALT [Catalytic activity/Vol]21 U/L14-59 [facility] CenterAST [Catalytic activity/Vol]18 U/L15-37 [facility] CenterBilirubin [Mass/Vol]0.4 mg/dL0.2-1.0[facility] CenterCalcium [Mass/Vol]9.2 mg/dL8.5-10.1FLakeHealth Beachwood Medical CenterChloride [Moles/Vol]105 mmol/I21-775BrabsluwfFisher-Titus Medical CenterCO2 [Moles/Vol]24.1 mmol/L21.0-32.0[facility] Cobalamin (Vitamin B12) [Mass/Vol]887 pg/xK968-6708YfahghbjqFisher-Titus Medical CenterComment on above:Performed at: - [facility] [id number] Director: Tra Bay PhD, Phone: [phone] Creatinine [Mass/Vol]0.84 mg/dL0.55-1.02[facility] Ferritin [Mass/Vol]63.0 ng/mL8.0-252.0[facility] Medical CenterFree T4 [Mass/Vol]1.23 ng/dL0.76-1.46[facility] Medical CenterGFR/1.73 sq M.predicted MDRD (S/P/Bld) [Vol rate/Area]mL/min/{1.73_m2}>=60 mL/min/1.73m 2 [facility] Medical CenterGlucose [Mass/Vol]150 mg/oKYasp23-247OnxutxkieFisher-Titus Medical CenterIron [Mass/Vol]63.0 ug/dL50.0-170.0[facility] CenterPotassium [Moles/Vol]4.2 mmol/L3.5-5.1FLakeHealth Beachwood Medical CenterProtein [Mass/Vol]7.1 g/dL6.4-8.2FMercy Health St. Elizabeth Boardman Hospitalodium [Moles/Vol]141 mmol/P856-100NrbvlwbzmFisher-Titus Medical CenterTSH Qn0.749 m[IU]/L 0.358-3.740[facility] Medical CenterUrea nitrogen [Mass/Vol]21.0 mg/dL High7.0-18.0[facility] Medical CenterUrea nitrogen/Creatinine [Mass ratio]25.0 mg/mgFisher-Titus Medical CenterNo Panel Informationon 08-45-463480466073-Nyunerj Vitamin D Total80.1 ng/mLFisher-Titus Medical Center Comment on above:<20 ng/mL Vit D piwvduodv94-<30 ng/mL Vit D rdydhkvaguzt25-375 ng/mL Vit D sufficient>100 ng/mL Potential ToxicitySerum or plasma albumin/globulin mass ratioon 34-00-2101Vzgcnwn/Globulin [Mass ratio]Serum or plasma albumin/globulin mass ratioAshtabula General Hospitalerum or plasma anion gap determinationon 33-08-7928Kjnjr gap [Moles/Vol]Serum or plasma anion gap determinationFisher-Titus Medical CenterNo Panel Informationon 29-15-3501Xxardhcqg Study observation (narrative)[facility] HospitalLAR JOINT/BURSA INJECTION AND/OR ASPIRATION: L kneeon 81-17-4684MjamoSagar Krause MD 02/27/2024 1:38 PM LARGE JOINT/BURSA [...] immediate complications The patient was prepped with Chloraprep.[facility] Centersherrell Krause MD 02/27/2024 1:38 PM LARGE JOINT/BURSA [...] 40 MG/ML The patient was prepped with Betadine.[facility] HospitalNo Panel Informationon 63-04-4654PkrjmJ.W. Ruby Memorial HospitalGlucose Glucometer (BldC) [Mass/Vol]Ordered By: Siva Boyce on 61-33-8615Mzacvov [Mass/Vol]136 mg/dLFisher-Titus Medical CenterComment on above:Random Glucose Reference Range is dependent on time and content of last meal. Glucose of more than 200 mg/dL in a nonstressed, ambulatory subject supports the diagnosis of Diabetes Mellitus.No Panel InformationOrdered By: Siva Boyce on 94-42-9238Jbfnodp Glucose Comment Glu2: cleaned meterFisher-Titus Medical CenterPANCREATIC ELASTASE FECALon 02-80-5897Mffwbpzwtm Elastase, Dngkq875 ug Elast./gCritically low>200The [facility] HospitalComment on above:Result Comment: Severe Pancreatic Insufficiency: <100 Moderate Pancreatic Insufficiency: 100 - 200 Normal: >200Performed By: #### HPYLORI #### [facility] [address] [place] [address] Dr. Irene CedilloLACTOFERRIN FECAL QUANTon 16-90-3790Jvcybzybntt, Fecal, Quant. <1.26Jshquq9.00-7.24[facility] [place] on above:Result Comment: Results verified by repeat testing . Baseline (normal) [...] from those with non-inflammatory irritable bowel syndrome (IBS).Performed By: #### SEDR #### [facility] [address] [place] [address] Dr. Irene CedilloCALPROTECTIN, FECALon 95-29-3273Tpxhvroyluxa, Bqvxz782 ug/g Critically high0-120[facility] on above:Result Comment: Concentration Interpretation Follow-Up <16 - 50 ug/g Normal None >50 -120 ug/g Borderline Re-evaluate in 4-6 weeks >120 ug/g Abnormal Repeat as clinically indicatedPerformed By: #### HPYLORI #### [facility] [address] [place] [address] Dr. Irene CedilloPANCREATIC ELASTASE FECALon 30-25-9586Jpmiedbffc Elastase, Fecal 161 ug Elast./gCritically low>200[facility] on above:Result Comment: Severe Pancreatic Insufficiency: <100 Moderate Pancreatic Insufficiency: 100 - 200 Normal: >200Performed By: #### ANTI-NICOLLE #### [facility] [address] [place] [address] Dr. Irene Dong 71-24-8728SBJ7.630 uIU/mLNormal0.358-3.740The [facility] Butler Hospitalment on above:Performed By: #### TSH #### [facility] [address] [place] [address] Dr. Irene CedilloANTIHISTIONE ANTIBODIESon 04-03-3201Chte-histone Abs0.5 Units Normal0.0-0.9[facility] on above:Result Comment: Negative <1.0 Weak Positive 1.0 - 1.5 Moderate Positive 1.6 - 2.5 Strong Positive >2.5Performed By: #### CK, CRP #### [facility] [address] [place] [address] [address] Irene Galeas JOINT/BURSA INJECTION AND/OR ASPIRATION: R kneeon 23-53-9912XqojiSagar Krause MD 11/30/2022 3:00 PM LARGE JOINT/BURSA [...] immediate complications The patient was prepped with Betadine.[facility] Radiology Study observation (narrative)[facility] Doctors HospitalUS PELVIS AND TRANSVAG on 11-87-5909WT PELVIS AND TRANSVAGEXAM: US PELVIS AND TRANSVAG HISTORY: Left lower quadrant pain COMPARISON: None. TECHNIQUE: Pelvic sonography was performed utilizing grayscale and color Doppler technique. FINDINGS/ IMPRESSION: 1. Hysterectomy. 2. Ovaries not visualized. 3. No adnexal mass. 4. No significant free fluid. Electronically authenticated by: BRI BERGER Date: 2022-11-10 15:54NoCincinnati Shriners HospitalLUPUS ANTICOAGULANT PROFILEon 37-79-9206Jzphnhpuypgmyjg Ab, IgG <10NormBarnesville HospitalComment on above:Result Comment: Reference Range: Negative: <15 Indeterminate: 15 - 20 Low to medium positive: >20 - 80 High positive: >80Performed By: #### LUPUSAC #### [facility] [address] [place] [address] Dr. Irene CedilloAnticardiolipin Ab, IgM<10NormBarnesville HospitalComment on above:Result Comment: Reference Range: Negative: <13 Indeterminate: 13 - 20 Low to medium positive: >20 - 80 High positive: >80Performed By: #### LUPUSAC #### [facility] [address] [place] [address] Dr. Irene Morrissey 1:1 NPPremier Health Miami Valley Hospital South on above:Result Comment: Testing Not Indicated This test was developed and its performance characteristics determined by [facility]. It has not been cleared or approved by the Food and Drug Administration.Performed By: #### LUPUSAC #### [facility] [address] [place] [address] Dr. Irene Morrissey 1:1 SalinePremier Health Miami [facility] Hospital South on above: Result Comment: Testing Not Indicated This test was developed and its performance characteristics determined by [facility]. It has not been cleared or approved by the Food and Drug Administration.Performed By: #### LUPUSAC #### [facility] [address] [place] [address] Dr. Irene Morrissey Coag (Bld) [Time]23.0 [facility] on above:Result Comment: This test has not been validated for monitoring unfractionated heparin therapy. aPTT-based therapeutic ranges for unfractionated heparin therapy have not been established. Consider ordering Heparin anti-Xa (unfractionated). Reference Range: 18 years and older: 22.9 - 30.2Performed By: #### LUPUSAC #### [facility] [address] [place] [address] Dr. Irene CedilloBeta-2 Glycoprotein I, IgA<10NormUniversity Hospitals Samaritan Medical Centere [facility] on above:Result Comment: The reference interval reflects a 3SD or 99th percentile interval. Reference Range: Negative: <26Performed By: #### LUPUSAC #### [facility] [address] [place] [address] Dr. Irene Michael-2 Glycoprotein I, IgG<10NormProtestant Hospital on above:Result Comment: The reference interval reflects a 3SD or 99th percentile interval. Reference Range: Negative: <21Performed By: #### LUPUSAC #### [facility] [address] [place] [address] Dr. Yilan ChangBeta-2 Glycoprotein I, IgM<10[facility] on above:Result Comment: The reference interval reflects a 3SD or 99th percentile interval. Reference Range: Negative: <33Performed By: #### LUPUSAC #### [facility] [address] [place] [address] Dr. Irene Lebron Confirm SecondsNIYNHolzer Health System on above:Result Comment: Testing Not IndicatedPerformed By: #### LUPUSAC #### [facility] [address] [place] [address] Dr. Irene Lebron RatioNIYNHolzer Health System on above:Result Comment: Testing Not IndicatedPerformed By: #### LUPUSAC #### [facility] [address] [place] [address] Dr. Irene Lebron Screen Pgolezp11.2 [facility] on above:Result Comment: Reference Range: <= 47.0Performed By: #### LUPUSAC #### [facility] [address] [place] [address] Dr. Irene Sabillonagonal Phospholipid Neutral0 [facility] Comment on above:Result Comment: This value is NEGATIVE. This is a qualitative assay and is therefore reported as positive for lupus anticoagulant or negative. The quantitative value is provided as an aid in diagnosis. Reference Range: 0 - 11Performed By: #### LUPUSAC #### [facility] [address] [place] [address] Dr. Irene Carrasco Coag (PPP) [Relative time]0.9 {INR}NormalKing's Daughters Medical Center [place] on above:Result Comment: Reference Range: >1 month: 0.9 - 1.2Performed By: #### LUPUSAC #### [facility] [address] [place] [address] Dr. Ireen Hendricks InterpretationPike Community Hospital on above:Result Comment: A lupus anticoagulant is not detected. All antiphospholipid antibodies evaluated are normal. As antibody titers may fluctuate with time, repeat testing may be indicated. Please contact [facility] if further clarification is needed.Performed By: #### LUPUSAC #### [facility] [address] [place] [address] Dr. Irene CedilloPlatelet Neutralization0.0 [facility] CenterComvibra hospital of [facility] [place] on above:Result Comment: Reference Range: 0.0 - 3.0 This test was developed and its performance characteristics determined by [facility]. It has not been cleared or approved by the Food and Drug Administration.Performed By: #### LUPUSAC #### [facility] [address] [place] [address] Dr. Irene CedilloPT Coag (PPP) [Time]10.0 sNormalGrant HospitalComment on above:Result Comment: Reference Range: 18 years and older: 9.1 - 12.0Performed By: #### LUPUSAC #### [facility] [address] [place] [address] Dr. Irene Campbell Time15.5 [facility] CenterComment on above: Result Comment: Reference Range: 0.0 - 23.0Performed By: #### LUPUSAC #### [facility] [address] [place] [address] Dr. Irene Patrick by IFAon 84-08-1806Jmtyftkwylt Antibodies, IFAPositive AbnormalKing's Daughters Medical Center [place] on above:Result Comment: Negative <1:80 Borderline 1:80 Positive >1:80Performed By: #### TSH #### [facility] [address] [place] [address] Dr. Irene Chinriolsushila PatternOhioHealth Pickerington Methodist HospitalComment on above: Performed By: #### TSH #### [facility] [address] [place] [address] Dr. Irene Chinromeoni PatternOhioHealth Pickerington Methodist HospitalComment on above: Performed By: #### TSH #### [facility] [address] [place] [address] Dr. Irene CedilloHomogeneous Pattern1:320Critically highGrant Hospital Comment on above:Result Comment: ICAP nomenclature: AC-1Performed By: #### TSH #### [facility] [address] [place] [address] [address] Irene Ferreira PatternNormLancaster Municipal Hospitalment on above: Performed By: #### TSH #### [facility] [address] [place] [address] Dr. Irene Whyte:CommentNoOhioHealth Dublin Methodist Hospital on above:Result Comment: For more information about Hep-2 cell [...] titers Nucleosomes, Histones Drug-induced SLE Speckled Sm, SEWER CONTRACTOR, SCL-70, SLE,MCTD,PSS (diffuse form), SS-A/SS-B Sjogrens Nucleolar SCL-70, PM- 1/SCL High titers Scleroderma, PM/DM Centromere Centromere PSS (limited form)w/Crest syndrome variable Nuclear Dot Sp100,q24-xfzjvz Primary Biliary Cirrhosis Nuclear GP210, Primary Biliary Cirrhosis Membrane margie A,B,C Performed By: #### TSH #### [facility] [address] [place] [address] Dr. Irene Zarco Dot Luther[facility] HospitalComvibra hospital [facility] on above: Performed By: #### TSH #### [facility] [address] [place] [address] Dr. Irene Zarco Membrane [facility] on above:Performed By: #### TSH #### [facility] [address] [place] [address] Dr. Irene Krugerolar Luther[facility] HospitalComvibra [facility] [place] on above: Performed By: #### TSH #### [facility] [address] [place] [address] Dr. Irene Marquez [facility] HospitalComvib[facility] [place] on above:Performed By: #### TSH #### [facility] [address] [place] [address] Dr. Irene Brambila [facility] on above: Performed By: #### TSH #### [facility] [address] [place] [address] Dr. Irene Michelle [facility] Medical CenterComment on above:Performed By: #### TSH #### [facility] [address] [place] [address] Dr. Irene CedilloALDOLASEon 57-25-9139Xflxdxpa0.6 U/LNormal3.3-10.3The [facility] HospitalComment on above:Performed By: #### TSH #### [facility] [address] [place] [address] Dr. Irene Mendez-CENTROMERE B ABon 15-59-7310Lfxi-Centromere B Antibodies<0.2 Normal0.0-0.9The [facility] Methodist HospitalComment on above:Performed By: #### SEDR #### [place] [address] Dr. Irene Mendez-DNA DS ABon 66-72-4858Fsby-DNA (DS) Ab Qn1 IU/mLNormal0-9[facility] on above:Result Comment: Negative <5 Equivocal 5 - 9 Positive >9Performed By: #### CCPAB #### [facility] [address] [place] [address] Dr. Irene Mendez-JO-1on 57-31-2057Updy-Nicolle-1<0.2Uhmaff3.0-0.9Grant HospitalComment on above:Performed By: #### ANTI-NICOLLE #### [facility] [address] [place] [address] Dr. Irene CedilloANTICHROMATIN ANTIBODIESon 77-64-9346Wtkcnzqshvtxk Antibodies0.5 AINormal0.0-0.9The [facility] HospitalComment on above:Performed By: #### CK, CRP #### [facility] [address] [place] [address] Dr. Irene CedilloANTIEXTRACTABLE NUCLEAR ANTIBODIESon 03-87-1214OGX Antibodies<0.2 Normal0.0-0.9The [facility] HospitalComment on above:Performed By: #### HPYLORI #### [facility] [address] [place] [address] Dr. Irene CedilloPerformed By: #### CCPAB #### [facility] [address] [place] [address] Dr. Irene Porter Antibodies<0.8Jadgoa0.0-0.9The [facility] Hospital[facility] on above:Performed By: #### HPYLORI #### [facility] [address] [place] [address] Dr. Irene CedilloPerformed By: #### CCPAB #### [facility] [address] [place] [address] Dr. Irene CedilloANTISCLERODERMA ABon 65-49-1043Yjixjcuxgopzqbb-70 Antibodies<0.2 Normal0.0-0.9The [facility] Hospitalment on above:Performed By: #### ANSCLER #### [facility] [address] [place] [address] Dr. Irene CedilloC3 and C4 COMPLEMENTon 80-66-5710Nmqsikqymb C3, Iafkc813 mg/dL Critically fbey45-365Pfb [facility] HospitalComvib[facility] [place] on above:Performed By: #### HPYLORI #### [facility] [address] [place] [address] Dr. Irene CedilloComplement C4, Serum41 mg/dLCritically bwey51-04Rfz [facility] on above:Performed By: #### HPYLORI #### [facility] [address] [place] [address] Dr. Irene ChandraPLEMENT TOTAL (CH50)on 57-75-0785Wovtqtqkcb, Total (CH50)>60 Normal>41The [facility] on above:Result Comment: Age Male Female 1 - 30 [...] table above to determine out of range values.Performed By: #### CK, CRP #### [facility] [address] [place] [address] Dr. Irene CedilloCYCLIC CITRULLINATED PEPTIDE AB (CCP)on 43-84-7150WNK Antibodies IgG/IgA3 unitsNormal0-19The [facility] on above:Result Comment: Negative <20 Weak positive 20 - 39 Moderate positive 40 - 59 Strong positive >59Performed By: #### CCPAB #### [facility] [address] [place] [address] Dr. Irene CedilloMITICHONDRIAL (M2) ANTIBODYon 59-87-9255Fgfkplijbdokd (M2) Antibody<20.1Knscoq8.0-20.0The [facility] HospitalComment on above:Result Comment: Negative 0.0 - 20.0 Equivocal 20.1 - 24.9 Positive >24.9 . Mitochondrial (M2) Antibodies are found in 90-96% of patients with primary biliary cirrhosis.Performed By: #### CK, CRP #### [facility] [address] [place] [address] Dr. Irene CedilloRHEUMATOID FACTORon 86-46-8743BD Latex Turbid.<10.0Normal<14.0The [facility] on above:Performed By: #### CCPAB #### [facility] [address] [place] [address] Dr. Irene CedilloRPR QUANTon 97-14-1023Eqiru Plasma Reagin, QuantNon-Reactive NormalNonRea<1:1The [facility] on above:Result Comment: Please Note: This test does not meet current guidelines for screening and diagnosis of syphilis. This test is intended for following treatment response in patients being treated for syphilis infection. To screen for syphilis infection, a reflex cascade that includes both RPR and a treponema-specific assay should be utilized, such as Treponema pallidum (Syphilis) Screening [place] (328418) or Rapid Plasma Reagin (RPR) Test With Reflex to Quantitative RPR and Confirmatory Treponema pallidum Antibodies (900660).Performed By: #### TSH #### [facility] [address] [place] [address] Dr. Irene Gamboa ANTIBODIES (Anti SSA/B)on 24-59-6232Ekewdzz's Anti-SS-A <0.0Oavnfw5.0-0.9The [facility] HospitalComment on above:Performed By: #### SEDR #### [facility] [address] [place] [address] Dr. Irene Chacon Anti-SS-B<0.9Pwqcsm9.0-0.9The [facility] HospitalComment on above:Performed By: #### SEDR #### [facility] [address] [place] [address] Dr. Irene Colvin MUSCLE ANTIBODYon 26-44-7878Ftykv (Smooth Muscle) Antibody 5 UnitsNormal0-19The [facility] on above:Result Comment: Negative 0 - 19 Weak positive 20 - 30 Moderate to strong positive >30 . Actin Antibodies are found in 52-85% of patients with autoimmune hepatitis or chronic active hepatitis and in 22% of patients with primary biliary cirrhosis.Performed By: #### CK, CRP #### [facility] [address] [place] [address] Dr. Irene CedilloTHYROGLOBULIN ABon 95-68-5741Dxcedzuzjvjyr Antibody<1.0Normal 0.0-0.9The [facility] on above:Result Comment: Thyroglobulin Antibody measured by [email or web address] MethodologyPerformed By: #### CCPAB #### [facility] [address] [place] [address] Dr. Irene CedilloTHYROID PEROXIDASE ABon 27-24-8568Hycqpaz Peroxidase (TPO) Ab11 IU/mLNormal0-34The [facility] on above:Performed By: #### TSH #### [facility] [address] [place] [address] Dr. Irene CedilloCBC AUTO DIFFon 39-65-5920THYD #0.1 103/ulNormal0.0-0.1The [facility] HospitalComv[facility] [place] on above:Performed By: #### CK, CRP #### [facility] [address] [place] [address] Dr. Irene CedilloBasophils/100 WBC (Bld)0.7 %Normal0.2-2.0The [facility] Comment on above:Performed By: #### CK, CRP #### [facility] [address] [place] [address] Dr. Irene Garcia #0.2 103/ulNormal0.0-0.7The [facility] HospitalComment on above: Performed By: #### CK, CRP #### [facility] [address] [place] [address] Dr. Irene Reyosinophils/100 WBC (Bld)2.8 %Normal0.9-7.0The [facility] Comment on above:Performed By: #### CK, CRP #### [facility] [address] [place] [address] Dr. Irene Haskinsthrocyte distribution width (RBC) [Ratio]13.4 %Jafkpe17.0-15.0 The [facility] HospitalComment on above:Performed By: #### CK, CRP #### [facility] [address] [place] [address] Dr. Irene CedilloHematocrit (Bld) [Volume fraction]43.6 %Ucvnys17.0-48.0The [facility] HospitalComment on above:Performed By: #### CK, CRP #### [facility] [address] [place] [address] Dr. Irene CedilloHemoglobin (Bld) [Mass/Vol]14.1 g/fNVmhhur86.0-16.0The [facility] HospitalComment on above:Performed By: #### CK, CRP #### [facility] [address] [place] [address] Dr. Irene Salgado #0.01 10e3/ulNormal0.00-0.03The [facility] HospitalComment on above:Performed By: #### CK, CRP #### [facility] [address] [place] [address] Dr. Irene Salgado %0.1 %Normal0.0-0.5The [facility] HospitalComment on above: Performed By: #### CK, CRP #### [facility] [address] [place] [address] Dr. Irene Dinero #2.5 103/ulNormal1.2-3.8The [facility] HospitalComment on above:Performed By: #### CK, CRP #### [facility] [address] [place] [address] Dr. Irene Powellhocytes/100 WBC (Bld)35.9 %Gicfcj77.5-60.0The [facility] HospitalComment on above:Performed By: #### CK, CRP #### [facility] [address] [place] [address] Dr. Irene Sparks DIFF REQNONormalThe [facility] HospitalComment on above: Performed By: #### CK, CRP #### [facility] [address] [place] [address] Dr. Irene Jarrett (RBC) [Entitic mass]29.6 wcOuncgr30.7-34.0The [facility] HospitalComment on above:Performed By: #### CK, CRP #### [facility] [address] [place] [address] Dr. Irene Jarrett (RBC) [Mass/Vol]32.3 g/pEBpwfit11.9-35.2The [facility] HospitalComment on above:Performed By: #### CK, CRP #### [facility] [address] [place] [address] Dr. Irene Jarrett (RBC) [Entitic vol]91.6 xAOjigix15.0-99.0The [facility] HospitalComment on above:Performed By: #### CK, CRP #### [facility] [address] [place] [address] Dr. Irene Choi #0.4 103/ulNormal0.3-0.8The [facility] HospitalComment on above:Performed By: #### CK, CRP #### [facility] [address] [place] [address] Dr. Irene Martinezocytes/100 WBC (Bld)5.2 %Normal1.7-12.0The [facility] Comment on above:Performed By: #### CK, CRP #### [facility] [address] [place] [address] Dr. Irene Myles #3.8 103/ulNormal1.4-6.5The [facility] Hospitalment on above:Performed By: #### CK, CRP #### [facility] [address] [place] [address] Dr. Irene Jeterutrophils/100 WBC (Bld)55.3 %Bizlho51.0-75.0The [facility] HospitalComment on above:Performed By: #### CK, CRP #### [facility] [address] [place] [address] Dr. Irene Wilkeslet mean volume (Bld) [Entitic vol]9.7 fLNormal9.5-13.5The [facility] HospitalComment on above:Performed By: #### CK, CRP #### [facility] [address] [place] [address] Dr. Irene CedilloPLT271 103/vyWlhvri153-941Xuk [facility] HospitalComment on above: Performed By: #### CK, CRP #### [facility] [address] [place] [address] Dr. Irene CedilloRBC4.76 106/ulNormal4.20-5.40The [facility] on above:Performed By: #### CK, CRP #### [facility] [address] [place] [address] Dr. Irene CedilloWBC6.9 103/ulNormal4.0-11.0The [facility] on above: Performed By: #### CK, CRP #### [facility] [address] [place] [address] Dr. Irene Chavarria 54-77-9276RC [Catalytic activity/Vol]57 U/MDdlkkn21-643Rox [facility] Hospitalment on above:Performed By: #### TSH #### [facility] [address] [place] [address] Dr. Irene Sheppard 43-09-0086TAY5.8 mg/dLNormal<=1.0The [facility] Comment on above:Performed By: #### TSH #### [facility] [address] [place] [address] Dr. Irene Castro T4on 40-55-5246Awlq T4 [Mass/Vol]1.07 ng/dLNormal0.76-1.46 The [facility] HospitalComment on above:Performed By: #### CK, CRP #### [facility] [address] [place] [address] Dr. Irene CedilloPROF 14(COMP METB)on 67-81-1005Fgpnlli [Mass/Vol]3.9 g/dLNormal 3.4-5.0The [facility] HospitalComment on above:Performed By: #### TSH #### [facility] [address] [place] [address] Dr. Irene CedilloAlbumin/Globulin [Mass ratio]1.1 {ratio}NormalThe [facility] HospitalComment on above:Performed By: #### TSH #### [facility] [address] [place] [address] Dr. Irene Powell [Catalytic activity/Vol]90 U/HAbjmuu11-284Vvm [facility] HospitalComment on above:Performed By: #### TSH #### [facility] [address] [place] [address] Dr. Irene Franklin [Catalytic activity/Vol]32 U/XFjvqgi06-30Vvb [facility] HospitalComment on above:Performed By: #### TSH #### [facility] [address] [place] [address] Dr. Irene Maciel gap [Moles/Vol]13.8 mmol/LNormalThe [facility] Comment on above:Performed By: #### TSH #### [facility] [address] [place] [address] Dr. Irene Ricketts [Catalytic activity/Vol]26 U/AVzndky85-59Aas [facility] HospitalComment on above:Performed By: #### TSH #### [facility] [address] [place] [address] Dr. Irene CedilloBilirubin [Mass/Vol]0.2 mg/dLNormal0.2-1.0The [facility] Comment on above:Performed By: #### TSH #### [facility] [address] [address] [address] Irene CedilloCalcium [Mass/Vol]9.1 mg/dLNormal8.5-10.1The [facility] Comment on above:Performed By: #### TSH #### [facility] [address] [address] [address] Irene CedilloChloride [Moles/Vol]102 mmol/NCzynou56-469Vom [facility] Comment on above:Performed By: #### TSH #### [facility] [address] [address] [address] Irene CedilloCO2 [Moles/Vol]25.4 mmol/IAcvlms38.0-32.0The [facility] Comment on above:Performed By: #### TSH #### [facility] [address] [address] [address] Irene CedilloCreatinine [Mass/Vol]0.64 mg/dLNormal0.55-1.02The [facility] HospitalComment on above:Performed By: #### TSH #### [facility] [address] [place] [address] Dr. Irene ReyGFR-AF CAPE VERDEAN>60Normal>=60The [facility] HospitalComment on above:Performed By: #### TSH #### [facility] [address] [address] [address] Irene ReyGFR-NON AF CAP[place] VERDEAN>60Normal>=60The [facility] HospitalComment on above:Performed By: #### TSH #### [facility] [address] [address] [address] Irene CeidlloGlobulin (S) [Mass/Vol]3.6 g/dLNormalThe [facility] HospitalComment on above:Performed By: #### TSH #### [facility] [address] [address] [address] Irene CedilloGlucose [Mass/Vol]132 mg/dLCritically uxpu05-491Ymv Torres HospitalComment on above:Performed By: #### TSH #### [facility] [address] [address] [address] Irene CedilloPotassium [Moles/Vol]4.2 mmol/LNormal3.5-5.1[facility] Comment on above:Performed By: #### TSH #### [facility] [address] [address] [address] Irene CedilloProtein [Mass/Vol]7.5 g/dLNormal6.4-8.2[facility] Comment on above:Performed By: #### TSH #### [facility] [address] [address] [address] Irene CedilloSodium [Moles/Vol]137 mmol/TEnrdcr925-032SiqGrant Hospital Comment on above:Performed By: #### TSH #### [facility] [address] [address] [address] Irene CedilloUrea nitrogen [Mass/Vol]19.0 mg/dLCritically high7.0-18.0Grant HospitalComment on above:Performed By: #### TSH #### [facility] [address] [place] [address] Dr. Irene Coker nitrogen/Creatinine [Mass ratio]29.7 mg/mgNoCincinnati Shriners HospitalComment on above:Performed By: #### TSH #### [facility] [address] [address] [address] Irene Lizarraga 42-30-2683MDH Coag (PPP) [Relative time]{INR}NormalGrant HospitalComment on above:Performed By: #### CK, CRP #### [facility] [address] [place] [address] Dr. Irene Carrasco GUIDELINESSEE BELOWOhioHealth Pickerington Methodist HospitalComment on above:Result Comment: DESIRED INR: 2.0 - 3.0 CONDITIONS NOT LISTED BELOW 2.5 - 3.5 FOR PROSTHETIC HEART VALVE REPLACEMENT 2.5 - 3.5 RECURRENT THROMBOSIS Performed By: #### CK, CRP #### [facility] [address] [place] [address] Dr. Irene Morales Coag (PPP) [Time]9.8 sNormal9.0-11.6The [facility] Comment on above:Performed By: #### CK, CRP #### [facility] [address] [place] [address] Dr. Irene Lowery 15-55-9062zJHN Coag (Bld) [Time]26.0 nBlcqqf66.3-36.2The [facility] HospitalComment on above:Performed By: #### CK, CRP #### [facility] [address] [place] [address] Dr. Irene Mattson RATE WESTERGREN 83-03-0665IGM RATE42 mm/hrCritically high <=30The [facility] HospitalComment on above:Performed By: #### SEDR #### [facility] [address] [place] [address] Dr. Irene Dong 20-41-0433ZJY5.718 uIU/mLNormal0.358-3.740The [facility] HospitalComment on above:Performed By: #### TSH #### [facility] [address] [place] [address] Dr. Irene Beverly RANDOM W/MICROSCOPICon 28-82-8622ZGSPAZWZHKDH SEENNormalNONE SEENGrant HospitalComment on above:Performed By: #### CCPAB #### [facility] [address] [place] [address] Dr. Irene Kramer Ql (U)NegativeNormalNEGATIVEGrant Hospital Comment on above:Performed By: #### CCPAB #### [facility] [address] [place] [address] Dr. Irene CedilloCASTNONE SEENNormalNONE SEENGrant HospitalComment on above:Performed By: #### CCPAB #### [facility] [address] [place] [address] Dr. Irene Luceroarity (U)CLEARNormalCLEARThe [facility] HospitalComment on above: Performed By: #### CCPAB #### [facility] [address] [address] [address] Irene Abernathylor (U)LT. YELLOWNormalYELLOWGrant HospitalComment on above:Performed By: #### CCPAB #### [facility] [address] [address] [address] Irene CedilloCrystals LM Nom (Urine sed)NONE SEENNormalNONE SEENGrant HospitalComment on above:Performed By: #### CCPAB #### [facility] [address] [address] [address] Bonilla ChangEpithelial cells LM Ql (Urine sed)NONE SEENNormalNONE SEEN /RARE Grant HospitalComvib[facility] [place] on above:Performed By: #### CCPAB #### [facility] [address] [place] [address] Dr. Irene CedilloGlucose Ql (U)NegativeNormalNEGATIVEGrant HospitalComment on above:Performed By: #### CCPAB #### [facility] [address] [place] [address] Dr. Irene CedilloHemoglobin Ql (U)NegativeNormalNEGATIVEUniversity Hospitals Lake [facility] on above:Performed By: #### CCPAB #### [facility] [address] [place] [address] Dr. Irene CedilloKetones Ql (U)NegativeNormalNEGATIVEGrant HospitalComment on above:Performed By: #### CCPAB #### [facility] [address] [address] [address] Irene CedilloLEUKOCYTESNegativeNormalNEGATIVEGrant HospitalComvibra [facility] [place] on above:Performed By: #### CCPAB #### [facility] [address] [place] [address] Dr. Irene CedilloMUCOUSNONE SEENNormalNONE SEENGrant HospitalComment on above:Performed By: #### CCPAB #### [facility] [address] [address] [address] Irene CedilloNitrite Ql (U)NegativeNormalNEGATIVEThe [facility] HospitalComment on above:Performed By: #### CCPAB #### [facility] [address] [place] [address] Dr. Irene CedillopH (U)5.5 [pH]Normal5-9The [facility] HospitalComment on above: Performed By: #### CCPAB #### [facility] [address] [place] [address] Dr. Irene CedilloRcqxoRBY1-7Zikupe1-3Uxv [facility] HospitalComment on above:Performed By: #### CCPAB #### [facility] [address] [place] [address] Dr. Irene CedilloSPEC GRAVITY1.899Xwrbdj0.005-<=1.025The [facility] HospitalComment on above:Performed By: #### CCPAB #### [facility] [address] [place] [address] Dr. Irene CedilloUA PROTEINNegativeNormalNEGATIVE/ TRACEThe [facility] Comment on above:Performed By: #### CCPAB #### [facility] [address] [place] [address] Dr. Irene CedilloUrobilinogen Qn (U)0.2 {Junior'U}/dLNormal0.2 - 1.0The [facility] HospitalComvibra [facility] [place] on above:Performed By: #### CCPAB #### [facility] [address] [place] [address] Dr. Irene CedilloWBCNONE SEENNormalNONE SEENThe [facility] HospitalComment on above: Performed By: #### CCPAB #### [facility] [address] [place] [address] Dr. Irene CedilloHLA B 27on 43-83-9959NOR-J81LwxxryzbYeopxnJouOhioHealth Pickerington [facility] Hospital Comment on above:Result Comment: HLA-B*27 Negative B27 allele interpretation for all loci based on IMGT/HLA database version 3.44 This test was developed and its performance characteristics determined by [facility]. It has not been cleared or approved by the Food and Drug Administration. [facility] CLIA ID Number [id number] . This test was performed using PCR (Polymerase Chain Reaction)/SSOP (Sequence Specific Oligonucleotide Probes) technique. SBT (Sequence Based Typing) and/or SSP (Sequence Specific Primers) may be used as supplemental methods when necessary. Please contact [facility] Customer Service at if you have any questions. . Director of [facility] Laboratory Dr Kris Salinas, PhDPerformed By: #### CCPAB #### [facility] [address] [place] [address] Dr. Irene Patrick by IFAon 37-62-9692Dkzhdefpkog Antibodies, IFAPositive AbnormalKing's Daughters Medical Center [place] on above:Result Comment: Negative <1:80 Borderline 1:80 Positive >1:80Performed By: #### SEDR #### [facility] [address] [place] [address] Dr. Irene Her Luther[facility] HospitalCom[facility] [place] on above: Performed By: #### SEDR #### [facility] [address] [place] [address] Dr. Irene Lizarraga PatternBarney Children's Medical Center on above: Performed By: #### SEDR #### [facility] [address] [place] [address] Dr. Irene CedilloHomogeneous Pattern1:160Critically highGrant Hospital Comment on above:Result Comment: ICAP nomenclature: AC-1Performed By: #### SEDR #### [facility] [address] [place] [address] Dr. Irene CedilloMidbody PatternOhioHealth Pickerington Methodist HospitalComvibra [facility] [place] on above: Performed By: #### SEDR #### [facility] [address] [place] [address] Dr. Irene CedilloNote:CommentBarney Children's Medical Center on above:Result Comment: For more information about Hep-2 cell [...] titers Nucleosomes, Histones Drug-induced SLE Speckled Sm, SEWER CONTRACTOR, SCL-70, SLE,MCTD,PSS (diffuse form), SS-A/SS-B Sjogrens Nucleolar SCL-70, PM- 1/SCL High titers Scleroderma, PM/DM Centromere Centromere PSS (limited form)w/Crest syndrome variable Nuclear Dot Sp100,o65-npoytx Primary Biliary Cirrhosis Nuclear GP210, Primary Biliary Cirrhosis Membrane margie A,B,C Performed By: #### SEDR #### [facility] [address] [address] [address] Irene Zarco Dot [facility] on above: Performed By: #### SEDR #### [facility] [address] [address] [address] Irene Zarco Membrane [facility] on above:Performed By: #### SEDR #### [facility] [address] [place] [address] Dr. Irene Krugerolar [facility] on above: Performed By: #### SEDR #### [facility] [address] [place] [address] Dr. Irene Marquez [facility] on above:Performed By: #### SEDR #### [facility] [address] [place] [address] Dr. Irene Brambila [facility] on above: Performed By: #### SEDR #### [facility] [address] [place] [address] Dr. Irene CedilloSpcoryle Apparatus [facility] on above:Performed By: #### SEDR #### [facility] [address] [place] [address] Dr. Irene CedilloCYCLIC CITRULLINATED PEPTIDE AB (CCP)on [id number] Antibodies IgG/IgA0 unitsNormal0-19[facility] [place] on above:Result Comment: Negative <20 Weak positive 20 - 39 Moderate positive 40 - 59 Strong positive >59Performed By: #### CCPAB #### [facility] [address] [place] [address] Dr. Yilan ChangRHEUMATOID FACTORon 89-45-3764DM Latex Turbid.<10.0Normal<14.0The [facility] HospitalComment on above:Performed By: #### CK, CRP #### [facility] [address] [place] [address] Dr. Irene BlancaC AUTO DIFFon 38-47-5657HAPY #0.0 103/ulNormal0.0-0.1The [facility] HospitalComment on above:Performed By: #### HPYLORI #### [facility] [address] [place] [address] Dr. Irene CedilloBasophils/100 WBC (Bld)0.4 %Normal0.2-2.0The [facility] Comment on above:Performed By: #### HPYLORI #### [facility] [address] [place] [address] Dr. Irene ReyO #0.3 103/ulNormal0.0-0.7The [facility] HospitalComment on above: Performed By: #### HPYLORI #### [facility] [address] [place] [address] Dr. Irene Reyosinophils/100 WBC (Bld)4.4 %Normal0.9-7.0The [facility] Comment on above:Performed By: #### HPYLORI #### [facility] [address] [place] [address] Dr. Irene Reyrythrocyte distribution width (RBC) [Ratio]13.2 %Ispbsw78.0-15.0 The [facility] HospitalComment on above:Performed By: #### HPYLORI #### [facility] [address] [place] [address] Dr. Irene CedilloHematocrit (Bld) [Volume fraction]41.5 %Tzsgbs88.0-48.0The [facility] HospitalComment on above:Performed By: #### HPYLORI #### [facility] [address] [place] [address] Dr. Irene CedilloHemoglobin (Bld) [Mass/Vol]14.0 g/tQJvamxc00.0-16.0[facility] HospitalComment on above:Performed By: #### HPYLORI #### [facility] [address] [place] [address] Dr. Irene Salgado #0.02 10e3/ulNormal0.00-0.03The [facility] HospitalComment on above:Performed By: #### HPYLORI #### [facility] [address] [place] [address] Dr. Irene Salgado %0.3 %Normal0.0-0.5The [facility] HospitalComment on above: Performed By: #### HPYLORI #### [facility] [address] [place] [address] Dr. Irene Dinero #2.5 103/ulNormal1.2-3.8The [facility] HospitalComment on above:Performed By: #### HPYLORI #### [facility] [address] [place] [address] Dr. Irene Powellhocytes/100 WBC (Bld)34.4 %Fbquif30.5-60.0The [facility] HospitalComment on above:Performed By: #### HPYLORI #### [facility] [address] [place] [address] Dr. Irene Sparks DIFF REQNONormalThe [facility] HospitalComment on above: Performed By: #### HPYLORI #### [facility] [address] [place] [address] Dr. Irene London (RBC) [Entitic mass]30.0 kuBmztsu78.7-34.0The [facility] HospitalComment on above:Performed By: #### HPYLORI #### [facility] [address] [place] [address] Dr. Irene Jarrett (RBC) [Mass/Vol]33.7 g/kPOaoqzi41.9-35.2The [facility] HospitalComment on above:Performed By: #### HPYLORI #### [facility] [address] [place] [address] Dr. Irene JarrettV (RBC) [Entitic vol]88.9 qZPnumqh94.0-99.0The [facility] HospitalComment on above:Performed By: #### HPYLORI #### [facility] [address] [place] [address] Dr. Irene Choi #0.4 103/ulNormal0.3-0.8The [facility] HospitalComment on above:Performed By: #### HPYLORI #### [facility] [address] [place] [address] Dr. Irene Martinezocytes/100 WBC (Bld)5.6 %Normal1.7-12.0The [facility] Comment on above:Performed By: #### HPYLORI #### [facility] [address] [place] [address] Dr. Irene Myles #4.0 103/ulNormal1.4-6.5The [facility] HospitalComment on above:Performed By: #### HPYLORI #### [facility] [address] [place] [address] Dr. Irene Jeterutrophils/100 WBC (Bld)54.9 %Cgfkyd63.0-75.0The [facility] HospitalComment on above:Performed By: #### HPYLORI #### [facility] [address] [place] [address] Dr. Irene Wilkeslet mean volume (Bld) [Entitic vol]9.6 fLNormal9.5-13.5The [facility] HospitalComment on above:Performed By: #### HPYLORI #### [facility] [address] [place] [address] Dr. Irene CedilloPLT314 103/fcIvaakc394-780Ksa [facility] HospitalComment on above: Performed By: #### HPYLORI #### [facility] [address] [place] [address] Dr. Irene CedilloRBC4.67 106/ulNormal4.20-5.40The [facility] HospitalComment on above:Performed By: #### HPYLORI #### [facility] [address] [address] [address] Irene CedilloWBC7.3 103/ulNormal4.0-11.0The [facility] HospitalComment on above: Performed By: #### HPYLORI #### [facility] [address] [place] [address] Dr. Irene CedilloCRPon 54-84-3821UZO6.3 mg/dLNormal<=1.0The [facility] Comment on above:Performed By: #### CK, CRP #### [facility] [address] [place] [address] Dr. Irene CedilloRENAL FUNCTION PANELon 76-60-5301Nrpvzui [Mass/Vol]3.7 g/dLNormal 3.4-5.0The [facility] HospitalComment on above:Performed By: #### RENAL #### [facility] [address] [place] [address] Dr. Irene CedilloCalcium [Mass/Vol]9.3 mg/dLNormal8.5-10.1[facility] Comment on above:Performed By: #### RENAL #### [facility] [address] [place] [address] Dr. Irene CedilloChloride [Moles/Vol]105 mmol/BKlxqha09-092QprGrant Hospital Comment on above:Performed By: #### RENAL #### [facility] [address] [place] [address] Dr. Irene CedilloCO2 [Moles/Vol]30.5 mmol/LGoybeg86.0-32.0The [facility] Comment on above:Performed By: #### RENAL #### [facility] [address] [place] [address] Dr. Irene CedilloCreatinine [Mass/Vol]0.64 mg/dLNormal0.55-1.02The [facility] HospitalComment on above:Performed By: #### RENAL #### [facility] [address] [place] [address] Dr. Bonilla ChangEGFR-AF CAPE VERDEAN>60Normal>=60The [facility] HospitalComment on above:Performed By: #### RENAL #### [facility] [address] [address] [address] Bonilla ChangEGFR-NON AF CAPE VERDEAN>60Normal>=60The [facility] HospitalComment on above:Performed By: #### RENAL #### [facility] [address] [address] [address] Irene CedilloGlucose [Mass/Vol]130 mg/dLCritically qdjq99-943Oot [facility] HospitalComment on above:Performed By: #### RENAL #### [facility] [address] [address] [address] Irene CedilloPhosphate [Mass/Vol]3.9 mg/dLNormal2.6-4.7The [facility] Comment on above:Performed By: #### RENAL #### [facility] [address] [address] [address] Irene CedilloPotassium [Moles/Vol]4.0 mmol/LNormal3.5-5.1The [facility] Comment on above:Performed By: #### RENAL #### [facility] [address] [address] [address] Irene CedilloSodium [Moles/Vol]143 mmol/DTyjsbb972-035Mya [facility] Comment on above:Performed By: #### RENAL #### [facility] [address] [address] [address] Irene CedilloUrea nitrogen [Mass/Vol]16.0 mg/dLNormal7.0-18.0The [facility] HospitalComment on above:Performed By: #### RENAL #### [facility] [address] [address] [address] Irene CedilloSED RATE WESTERGRENon 03-55-8302OQI RATE20 mm/hrNormal<=30The [facility] HospitalComment on above:Performed By: #### CK, CRP #### [facility] [address] [address] [address] Irene CedilloMRI ANKLE LT WO CONon 44-49-9226SRI ANKLE LT WO CONEXAM: MRI ANKLE LT WO CON REASON FOR EXAM: Polyneuropathy due to [...] Electronically authenticated by: TONY DICKINSON Date: 2022-08-26 09:[address] [place], [place] [address]MG MAMM SCREEN 3D RIAN CADon [id number] MAMM SCREEN 3D RIAN CAD Patient: EMILY MAICAS Exam Date: 08/08/2022 : 1960 Gender:F Ordering : DR. KENDRA MCKINLEY M.D. Admission #: [id number] Family : DR NETTA MONTOYA M.D. Order #: [id number] CLICK HERE TO VIEW EXAM RADIOLOGY REPORT [...] breast cancer at age 78. LOCATION: [facility] BREAST COMPOSITION: Heterogeneously dense,which may obscure [...] by: Pelon Alexandre M.D. on 08/09/2022 at 15:10[facility] HospitalGLYCOHEMOGLOBIN A1Con [id number] RECOMMENDATIONSEE BELOWOhioHealth Pickerington Methodist HospitalComvibra hospital of [facility] [place] on above:Result Comment: ADA RECOMMENDED LIMIT 4.0 - 6.0 ADA THERAPEUTIC TARGET < 7.0 ACTION SUGGESTED > 7.0Performed By: #### CCPAB #### [facility] [address] [address] [address] Irene CedilloGlucose [Mass/Vol]128 mg/dLOhioHealth Pickerington Methodist HospitalComment on above:Performed By: #### CCPAB #### [facility] [address] [address] [address] Irene CedilloHbA1c (Bld) [Mass fraction]6.1 %Normal4.5-6.2The [facility] HospitalComment on above:Performed By: #### CCPAB #### [facility] [address] [address] [address] Irene CedilloXR FOOT RIAN MIN 3 VIEWSon 01-73-9729IZ FOOT RIAN MIN 3 VIEWS EXAMINATION: XR [...] Electronically authenticated by: PELON ALEXANDRE Date: 2022-07-06 06:21NoCincinnati Shriners HospitalOVA AND PARASITE EXAMINATIONon [id number] + Parasite Exam Final reportSt. Rita's Hospitalment on above:Result Comment: These results were obtained using wet preparation(s) and trichrome stained smear. This test does not include testing for Cryptosporidium parvum, Cyclospora, or Microsporidia.Performed By: #### SEDR #### [facility] [address] [place] [address] Dr. Irene Campos 1CommentNoCincinnati Shriners HospitalComment on above:Result Comment: No ova, cysts, or parasites seen. . One negative specimen does not rule out the possibility of a parasitic infection.Performed By: #### SEDR #### [facility] [address] [place] [address] Dr. Irene CedilloCALPROTECTIN, FECALon 28-94-3722Zlaanygbbrzy, Fecal36 ug/gNormal 0-120The [facility] Hospitalment on above:Result Comment: Concentration Interpretation Follow-Up <16 - 50 ug/g Normal None >50 -120 ug/g Borderline Re-evaluate in 4-6 weeks >120 ug/g Abnormal Repeat as clinically indicatedPerformed By: #### CK, CRP #### [facility] [address] [address] [address] Irene ChuaBAHEIDI PYLORI AG STOOLon 04-12-2022H. pylori Stool Ag, EIA NegativeNormalNegativeGrant HospitalComment on above:Performed By: #### HPYLORI #### [facility] [address] [place] [address] Dr. Irene CedilloLACTOFERRIN FECAL QUANTon 40-70-4094Iiwmpizokmc, Fecal, Quant. <1.71Cgkqjo7.00-7.24The [facility] HospitalComment on above:Result Comment: Results verified by repeat testing . Baseline (normal) [...] from those with non-inflammatory irritable bowel syndrome (IBS).Performed By: #### TSH #### [facility] [address] [place] [address] Dr. Irene Matson. DIFF PCRon 04-08-2022. DIFFICILE PCRNegativeNormalNEGATIVEThe [facility] HospitalComment on above:Performed By: #### SEDR #### [facility] [address] [place] [address] Dr. Irene CedilloGI PANEL (PCR)on 33-11-2319Vwgbrqrmnw F 40/41Not detectedNormal NOT DETECTEDThe [facility] HospitalComment on above:Performed By: #### SEDR #### [facility] [address] [place] [address] Dr. Irene CedilloAstrovirusNot detectedNormalNOT DETECTEDThe [facility] Comment on above:Performed By: #### SEDR #### [facility] [address] [place] [address] Dr. Irene Matson. Diff toxin A/BNot detectedNormalNOT DETECTEDThe [facility] HospitalComment on above:Performed By: #### SEDR #### [facility] [address] [place] [address] Dr. Irene TorrespylobacterNot detectedNormalNOT DETECTEDThe [facility] Comment on above:Performed By: #### SEDR #### [facility] [address] [place] [address] Dr. Irene RussyptosporidiumNot detectedNormalNOT DETECTEDThe [facility] HospitalComment on above:Performed By: #### SEDR #### [facility] [address] [address] [address] Irene Daley. CayetanensisNot detectedNormalNOT DETECTEDThe [facility] HospitalComment on above:Performed By: #### SEDR #### [facility] [address] [address] [address] Irene Garcia Coli L997Uqn ApplicableNormalNot ApplicableThe [facility] HospitalComment on above:Performed By: #### SEDR #### [facility] [address] [address] [address] Irene Rey. histolyticaNot detectedNormalNOT DETECTEDThe [facility] Comment on above:Performed By: #### SEDR #### [facility] [address] [address] [address] Irene ReyAECNot detectedNormalNOT DETECTEDThe [facility] HospitalComment on above:Performed By: #### SEDR #### [facility] [address] [address] [address] Irene ReyIECNmichelle detectedNormalNOT DETECTEDThe [facility] HospitalComment on above:Performed By: #### SEDR #### [facility] [address] [address] [address] Irene ReyPECNot detectedNormalNOT DETECTEDThe [facility] HospitalComvibra hospital of [facility] [place] on above:Performed By: #### SEDR #### [facility] [address] [address] [address] Irene ReyTECNot detectedNormalNOT DETECTEDThe [facility] HospitalComment on above:Performed By: #### SEDR #### [facility] [address] [address] [address] Irene Chong. LambliaNot detectedNormalNOT DETECTEDThe [facility] Comment on above:Performed By: #### SEDR #### [facility] [address] [address] [address] Irene Bullard CONTROLSPASSEDNormalThe [facility] HospitalComment on above:Performed By: #### SEDR #### [facility] [address] [address] [address] GR[address]ON HEADERGI [facility] Comment on above:Performed By: #### SEDR #### [facility] [address] [address] [address] Irene Alejandro ECOLIGI PANEL DIARRHEAGENIC E.COLI / SHIGELLAOhioHealth Pickerington Methodist HospitalComment on above:Performed By: #### SEDR #### [facility] [address] [address] [address] Irene Alejandro INFOSEE Clinton Memorial HospitalComment on above: Result Comment: EAEC- Enteroaggregative E. Coli EPEC- Enteropathogenic E. Coli ETEC- Enterotoxigenic E. Coli lt/st STEC- Shigella-like toxin-producing E. Coli stx1/stx2 EIEC- Shigella/Enteroinvasive E. ColiPerformed By: #### SEDR #### [facility] [address] [place] [address] Dr. Irene Alejandro PARASITESGI PANEL PARASITESOhioHealth Pickerington Methodist Hospital Comment on above:Performed By: #### SEDR #### [facility] [address] [place] [address] Dr. Irene Alejandro VIRUSGI PANEL [facility] HospitalComment on above:Performed By: #### SEDR #### [facility] [address] [address] [address] Irene Davisrovirus GI/GIINot detectedNormalNOT DETECTEDThe [facility] HospitalComment on above:Performed By: #### SEDR #### [facility] [address] [address] [address] Irene Oviedo ShigelloidesNot detectedNormalNOT DETECTEDGrant HospitalComment on above:Performed By: #### SEDR #### [facility] [address] [address] [address] Irene CedilloRotavirus ANot detectedNormalNOT DETECTEDGrant Hospital Comment on above:Performed By: #### SEDR #### [facility] [address] [address] [address] Irene CedilloSalmonellaNot detectedNormalNOT DETECTEDThe [facility] Comment on above:Performed By: #### SEDR #### [facility] [address] [address] [address] Irene CedilloSapovirusNot detectedNormalNOT DETECTEDThe [facility] Comment on above:Performed By: #### SEDR #### [facility] [address] [address] [address] Irene CedilloSTECNot detectedNormalNOT DETECTEDThe [facility] HospitalComment on above:Performed By: #### SEDR #### [facility] [address] [address] [address] Irene MahmoodbrioNot detectedNormalNOT DETECTEDThe [facility] HospitalComment on above:Performed By: #### SEDR #### [facility] [address] [place] [address] Dr. Irene Reesio CholeraNot detectedNormalNOT DETECTEDGrant Hospital Comment on above:Performed By: #### SEDR #### [facility] [address] [place] [address] Dr. Irene Reece. EnterocoliticaNot detectedNormalNOT DETECTEDThe [facility] HospitalComment on above:Performed By: #### SEDR #### [facility] [address] [place] [address] Dr. Irene Sandoval 26-96-0413Uwpp nitrogen [Mass/Vol]20.0 mg/dLCritically high 7.0-18.0The [facility] HospitalComment on above:Performed By: #### CK, CRP #### [facility] [address] [place] [address] Dr. Irene Saravia 82-95-1672Qbijxaclnc [Mass/Vol]0.75 mg/dLNormal 0.55-1.02The [facility] HospitalComment on above:Performed By: #### CK, CRP #### [facility] [address] [place] [address] Dr. Yilan ChangEGFR-AF CAPE VERDEAN>60Normal>=60The [facility] HospitalComment on above:Performed By: #### CK, CRP #### [facility] [address] [place], [place] [address] Dr. Bonilla ChangEGFR-NON AF CAPE VERDEAN>60Normal>=60The [facility] HospitalComment on above:Performed By: #### CK, CRP #### [facility] [address] [place], [place] [address] Dr. Bonilla ChangCT ABD/PELV W CONon [id number] ABD/PELV W CONIndication: Abdominal pain. Comparison: 09/20/2021 and 12/26/2018 exams. Procedure: Axial images were made from the diaphragms through the symphysis pubis. Oral contrast Omnipaque was given prior to scanning. 100 mL Omnipaque 300 Intravenous contrast was given. Dose reduction techniques were achieved by using automated exposure control and/or adjustment of mA and/or kV according to patient size and/or use of iterative reconstruction technique. 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 Liver/Biliary System: [...] Electronically authenticated by: CIELO GARCIA Date: 2022-03-27 21:37[facility] HospitalPOINT OF CARE GLUCOSEon 90-73-5953Nfuhfza [Mass/Vol]173 mg/dL Critically rgts94-675Yqg [facility] HospitalComment on above:Performed By: #### CCPAB #### [facility] [address] [place] [address] Dr. Irene CedilloFSHon 20-34-3462QGM16.6 mIU/mLNormalGrant HospitalComment on above:Result Comment: Adult Female: Follicular phase 3.5 - 12.5 Ovulation phase 4.7 - 21.5 Luteal phase 1.7 - 7.7 Postmenopausal 25.8 - 134.8Performed By: #### CK, CRP #### [facility] [address] [place] [address] Dr. Irene CedilloLUTEINIZING HORMONE (LH)on 00-01-9948ST32.3 mIU/mLNormalGrant HospitalComment on above:Result Comment: Adult Female: Follicular phase 2.4 - 12.6 Ovulation phase 14.0 - 95.6 Luteal phase 1.0 - 11.4 Postmenopausal 7.7 - 58.5Performed By: #### HPYLORI #### [facility] [address] [place] [address] Dr. rIene CedilloTESTOSTERONE, TOTALon 43-57-1888Qvyzltreeluf [Mass/Vol]6 ng/dL Normal3-67The [facility] HospitalComment on above:Performed By: #### HPYLORI #### [facility] [address] [place] [address] Dr. Irene CedilloTHYROID PEROXIDASE ABon 83-97-8066Tqmkyjw Peroxidase (TPO) Ab<8 Normal0-34The [facility] HospitalComment on above:Performed By: #### CK, CRP #### [facility] [address] [place] [address] Dr. Irene Castro T3on 79-11-8197WHLQ T32.47 pg/mlLNormal2.18-3.98The [facility] HospitalComment on above:Performed By: #### SEDR #### [facility] [address] [place] [address] Dr. Irene Faye DISEASE AB EIA W REFLEXon 41-34-4755Wrgx Total Antibody,EIA NegativeNormalNegativeThe [facility] HospitalComment on above:Result Comment: Lyme Antibody Negative No laboratory evidence of infection with B. burgdorferi (Lyme disease). Negative results may occur in patients recently infected (greater than or equal to 14 days) with B. burgdorferi. If recent infection is suspected, repeat testing on a new sample collected in 7 to 14 days is recommended.Performed By: #### TSH #### [facility] [address] [place] [address] Dr. Irene CedilloCPKon [id number] [Catalytic activity/Vol]76 U/ZJopowi56-691Sbx [facility] HospitalComment on above:Performed By: #### CK, CRP #### [facility] [address] [place] [address] Dr. Irene CedilloCRChristian 37-65-5728KFG8.4 mg/dLNormal<=1.0[facility] Comment on above:Performed By: #### CK, CRP #### [facility] [address] [place] [address] Dr. Irene Mattson RATE WESTERGRENon 35-47-9806WNT RATE8 mm/hrNormal<=30The [facility] HospitalComment on above:Performed By: #### HPYLORI #### [facility] [address] [place] [address] Dr. Irene CedilloC REACTIVE PROTEINon 63-33-5357SNA [Mass/Vol]9.3 mg/LHigh0.0-7.0 The [facility] CompanyComment on above:Performed By: #### [id number] #### [facility] [address] [place] [address], USAKNEE LEFT 3 VWSon 19-03-5877TJEQ LEFT 3 [facility] Department of Radiology [address] [place] [address] Patient Name: EMILY MACIAS : 1960 Sex: F Age: Race: White Pt. Location: Patient Status: Ordered Date: 09/06/2021 1:35:00 PM Completed Date: 09/06/2021 01:56 PM Requesting Provider: KIARA WILLETT Attending Provider: Report Copy To: Signs & Symptoms: M25.562 Pain in left knee I10 History: Barbara Comments: Evaluate Exam: KNEE LEFT 3 S KNEE LEFT 3 VWS 09/06/2021 1:56 PM CLINICAL INDICATIONS: M25.562 Pain [...] above Electronically signed: Olga Murray. Transcribed by: [email or web address], User Resident: Electronically Signed by: OLGA MURRAY @ 09/06/2021 03:09 [facility]Comment on above:Order Comment: EvaluateKNEE RIGHT 3 VWS on [id number] RIGHT 3 [facility] Department of Radiology [address] [place] [id number] Patient Name: EMILY MACIAS : 1960 Sex: F Age: Race: White Pt. Location: Patient Status: Ordered Date: 09/06/2021 1:35:00 PM Completed Date: 09/06/2021 01:56 PM Requesting Provider: KIARA WILLETT Attending Provider: Report Copy To: Signs & Symptoms: M25.561 Pain in right knee I10 History: Barbara Comments: Evaluate Exam: KNEE RIGHT 3 S KNEE RIGHT 3 VWS 09/06/2021 1:56 PM [...] above Electronically signed: Olga Murray. Transcribed by: [email or web address], User Resident: Electronically Signed by: OLGA MURRAY @ 09/06/2021 03:08 [facility] CantonComment on above:Order Comment: EvaluateSEDIMENTATION RATEon 38-53-4642BQW RATE7 mm/hrNormal0-20The [facility] CompanyComment on above:Performed By: #### [id number] #### [facility] [address] BETHSush[address] Vital Signs Date TimeVital SignValuePerforming GgatciiymSwynopus52-04-5729 10:06-0400Body dulmss580.1 cmNetta Montoya MD Work Phone: 1(119)[address] [place], [place] 9455210-28-2025 10:06-0400 Body mass index (BMI) [Ratio]32.5 kg/h0XqkqwyNetta Montoya MD Work Phone: 1(192)[address] [place], [place] 9455210-28-2025 10:06-0400 Body rzejsz75.9 kgNetta Montoya MD Work Phone: 1419)[address] [place], [place] 9455210-28-2025 10:06-0400 Diastolic blood hbkquhan76 mm[Hg]Netta Montoya MD Work Phone: 1(419)[address] [place], [place] 9455210-28-2025 10:06-0400 Heart rate76 /minNetta Montoya MD Work Phone: 1419)[address] [place], [place] 9455210-28-2025 10:06-0400 Systolic blood awtthedi655 mm[Hg]Netta Montoya MD Work Phone: 1(845)[address] [place], [place] 9455210-28-2025 09:12-0400 Body zethax619.1 cmNetta Montoya MD Work Phone: 1(497)[address] [place], [place] 9455210-28-2025 09:12-0400 Body mass index (BMI) [Ratio]32.5 kg/r8WzwjgtNetta Montoya MD Work Phone: 1(060)[address] [place], [place] 9455210-28-2025 09:12-0400 Body adcwpl06.9 kgNetta Montoya MD Work Phone: 1419)[address] [place], [place] 9455210-28-2025 09:12-0400 Diastolic blood fybjxzgn25 mm[Hg]Netta Montoya MD Work Phone: 1(402)[address] [place], [place] 9455210-28-2025 09:12-0400 Heart rate85 /Dianna Montoya MD Work Phone: 1(419)[address] [place], [place] 9455210-28-2025 09:12-0400 SaO2% (BldA) [Mass fraction]97 %Netta Montoya MD Work Phone: 1(419)[address] [place], [place] 9455210-28-2025 09:12-0400 Systolic blood ahsfrecn298 mm[Hg]Netta Montoya MD Work Phone: 1(419)[address] [place], [place] 9455210-14-2025 11:05-0400 Body wnbucg447.1 cmNetta Montoya MD Work Phone: 1(419)[address] [place], [place] 9455210-14-2025 11:05-0400 Body mass index (BMI) [Ratio]32.9 kg/p1JcztwfNetta Montoya MD Work Phone: 1(419)[address] [place], [place] 9455210-14-2025 11:05-0400 Body nfmdec60.81 kgNetta Montoya MD Work Phone: 1(419)[address] [place], [place] 9455210-14-2025 11:05-0400 Diastolic blood wudzovmz79 mm[Hg]Netta Montoya MD Work Phone: 1(419)[address] [place], [place] 9455210-14-2025 11:05-0400 Heart rate97 /Dianna Montoya MD Work Phone: 1(419)[address] [place], [place] 9455210-14-2025 11:05-0400 Systolic blood snasnesq267 mm[Hg]Netta Montoya MD Work Phone: 1(419)[address] [place], [place] 9455208-12-2025 10:15-0400 Body fcikyj443.1 cmNetta Montoya MD Work Phone: 1(419)[address] [place], [place] 9455208-12-2025 10:15-0400 Body mass index (BMI) [Ratio]32.8 kg/g6GpfdtkNetta Montoya MD Work Phone: 1(419)[address] [place], [place] 9455208-12-2025 10:15-0400 Body hjjgba63.35 kgNetta Montoya MD Work Phone: 1(419)[address] [place], [place] 9455208-12-2025 10:15-0400 Diastolic blood uycdyjxb78 mm[Hg]Netta Montoya MD Work Phone: [facility]08-12-2025 10:15-0400 Heart rate89 /minNetta Montoya MD Work Phone: [facility]08-12-2025 10:15-0400 SaO2% (BldA) [Mass fraction]98 %Netta Montoya MD Work Phone: [facility]08-12-2025 10:15-0400 Systolic blood hosohwkh190 mm[Hg]Netta Montoya MD Work Phone: [facility]07-29-2025 14:55-0400 Body yubnlt438 Tom Diaz MD Work Phone: 1(703)016-[address] [place] [address] 04-07-2025 14:55-0400Body vjxtmo286.74 Tom Diaz MD Work Phone: 1(697)652-[address] [place] [address] 04-07-2025 14:55-0400Body mass index (BMI) [Ratio]32.98 kg/r9VfwbtTwan Diaz MD Work Phone: 1(059)692-[address] [place] [address] 04-07-2025 14:55-0400Body conzbb97 Brigida Diaz MD Work Phone: 1(712)858-[address] [place] [address] 04-07-2025 14:55-0400Body uxtlbn13.27 Brigida Diaz MD Work Phone: 1(142)848-[address] [place] [address] 04-07-2025 14:55-0400BP SITE #1Cisai Diaz MD Work Phone: 1(366)802-[address] [place] [address] 04-07-2025 14:55-0400Diastolic blood yiqjqhmi97 mm[Hg]Twan Diaz MD Work Phone: 3(569)889-59[facility] 04-07-2025 14:55-0400Heart rate91 /Livan Diaz MD Work Phone: [facility] 04-07-2025 14:55-0400HGHTCHNBhargavi Diaz MD Work Phone: [facility] 04-07-2025 14:55-0400Systolic blood uyppaaqu027 mm[Hg]Twan Diaz MD Work Phone: [facility] 04-07-2025 14:55-0400VITALSDONECisai Diaz MD Work Phone: [facility] 04-06-2025 09:21-0400Body iwvyuc432.1 cmNetta Montoya MD Work Phone: 1(567)475-00[facility]07-28-2025 09:21-0400 Body mass index (BMI) [Ratio]32.5 kg/m2EcaxovNetta Montoya MD Work Phone: 1(231)260-26[facility]07-28-2025 09:21-0400 Body xhkkka36.9 kgNetta Montoya MD Work Phone: 1(131)143-90[facility]07-28-2025 09:21-0400 Diastolic blood qwabyesa33 mm[Hg]Netta Montoya MD Work Phone: 1(259)905-05[facility]07-28-2025 09:21-0400 Heart rate81 /Dianna Montoya MD Work Phone: 1(820)738-14[facility]07-28-2025 09:21-0400 Systolic blood bcnpnegm578 mm[Hg]Netta Montoya MD Work Phone: 1(886)493-98[facility]04-18-2025 10:09-0400 Body odshuc973.1 cm[facility]04-18-2025 10:09-0400Body mass index (BMI) [Ratio]32.7 kg/z6ZezhiiiqiFisher-Titus Medical Center04-18-2025 10:09-0400Body yulrbl58.2 kgFisher[facility] Center04-18-2025 10:09-0400Diastolic blood ductwgne41 mm[Hg][facility] 12-26-2024 10:09-0400Systolic blood mkvkeyij940 mm[Hg][facility]04-02-2025 08:55-0400Body wdqdqi877.1 cmNetta Montoya MD Work Phone: 1(190)[address]04-02-2025 08:55-0400 Body mass index (BMI) [Ratio]32.5 kg/a8WyvqeiNetta Montoya MD Work Phone: 1(946)[address]04-02-2025 08:55-0400 Body rzkzzvtanos37.2 [degF]Netta Montoya MD Work Phone: 1(279)[address] [place], [place] 9455204-02-2025 08:55-0400 Body uodgyt24.9 kgNetta Montoya MD Work Phone: 1(506)[address] [place], [place] 9455204-02-2025 08:55-0400 Diastolic blood krnzlyzh85 mm[Hg]Netta Montoya MD Work Phone: 1(268)[address]04-02-2025 08:55-0400 Heart rate88 /minNetta Montoya MD Work Phone: 1(533)[address] [place], [place] 9455204-02-2025 08:55-0400 Systolic blood mm[Hg]Netta Montoya MD Work Phone: 1(783)[address]02-11-2025 09:08-0500 Body qynwkd598.1 cmNetta Montoya MD Work Phone: 1(337)[address]02-11-2025 09:08-0500 Body mass index (BMI) [Ratio]31.9 kg/k6CntvylNetta Montoya MD Work Phone: 1(794)[address]02-11-2025 09:08-0500 Body yvyrlv39.08 kgNetta Montoya MD Work Phone: 1(808)[address]02-11-2025 09:08-0500 Diastolic blood shalepff76 mm[Hg]Netta Montoya MD Work Phone: 1(275)[address] [place], [place] 9455202-11-2025 09:08-0500 Heart rate90 /Dianna Montoya MD Work Phone: 1(659)[address] [place], [place] 9455202-11-2025 09:08-0500 SaO2% (BldA) [Mass fraction]97 %Netta Montoya MD Work Phone: 1(243)[address] [place], [place] 9455202-11-2025 09:08-0500 Systolic blood lfkunybk717 mm[Hg]Netta Montoya MD Work Phone: 1(572)[address] [place], [place] 9455201-21-2025 13:53-0500 Body qocloo324.02 cmNetta Montoya MD Work Phone: 1(270)[address] [place], [place] 9455201-21-2025 13:53-0500 Body mass index (BMI) [Ratio]33.1 kg/d2QfijmnNetta Montoya MD Work Phone: 1(822)[address] [place], [place] 9455201-21-2025 13:53-0500 Body pudndu30.82 kgNetta Montoya MD Work Phone: 1(372)[address] [place], [place] 9455201-21-2025 13:53-0500 Diastolic blood qrxqcgaj77 mm[Hg]Netta Montoya MD Work Phone: 1(807)[address] [place], [place] 9455201-21-2025 13:53-0500 Heart rate85 /Dianna Montoya MD Work Phone: 1(557)[address] [place], [place] 9455201-21-2025 13:53-0500 Systolic blood rceryqqr982 mm[Hg]Netta Montoya MD Work Phone: 1(916)[address] [place], [place] 9455212-20-2024 11:03-0500 Diastolic blood mm[Hg]Netta Montoya MD Work Phone: 1(139)[address] [place], [place] 9455212-20-2024 11:03-0500 Heart rate89 /Dianna Montoya MD Work Phone: 1(838)[address] [place], [place] 9455212-20-2024 11:03-0500 Systolic blood vawupkmd594 mm[Hg]Netta Montoya MD Work Phone: 1(199)[address]11-19-2024 09:33-0500 Body .02 cmNetta Montoya MD Work Phone: 1(507)[address] [place], [place] 9455211-19-2024 09:33-0500 Body mass index (BMI) [Ratio]34.3 kg/v8YwrekqNetta Montoya MD Work Phone: 1(359)[address] [place], [place] 9455211-19-2024 09:33-0500 Body kazbci38.99 kgNetta Montoya MD Work Phone: 1(073)[address] [place], [place] 9455211-19-2024 09:33-0500 Diastolic blood ivvgpbcd55 mm[Hg]Netta Montoya MD Work Phone: 1(842)[address] [place], [place] 9455211-19-2024 09:33-0500 Heart rate75 /Dianna Montoya MD Work Phone: 1(290)[address] [place], [place] 9455211-19-2024 09:33-0500 Systolic blood ngoupftx655 mm[Hg]Netta Montoya MD Work Phone: 1(845)[address] [place], [place] 9455211-07-2024 13:59-0500 Body hplkhu693.02 cmNetta Montoya MD Work Phone: 1(427)[address] [place], [place] 9455211-07-2024 13:59-0500 Body mass index (BMI) [Ratio]34.5 kg/s5KoqvspNetta Montoya MD Work Phone: 1(457)[address] [place], [place] 9455211-07-2024 13:59-0500 Body wsivcn92.45 kgNetta Montoya MD Work Phone: 1(958)[address] [place], [place] 9455211-07-2024 13:59-0500 Diastolic blood tbnnrkis60 mm[Hg]Netta Montoya MD Work Phone: 1(337)[address] [place], [place] 9455211-07-2024 13:59-0500 Heart rate83 /Dianna Montoya MD Work Phone: 1(263)[address] [place], [place] 9455211-07-2024 13:59-0500 SaO2% (BldA) [Mass fraction]93 %Netta Montoya MD Work Phone: [facility]11-07-2024 13:59-0500 Systolic blood uxdhojzx955 mm[Hg]Netta Montoya MD Work Phone: [facility]06-13-2024 13:19-0400 Body hdmfji343.1 Cole Krause MD Work Phone: 1(373)[address]06-13-2024 13:19-0400Body mass index (BMI) [Ratio]31.78 kg/p5IpummSagar Krause MD Work Phone: 1(259)[address]06-13-2024 13:19-0400Body qjyxwgeahyd26.11 [degF]Sagar Krause MD Work Phone: 1(007)432-[address] [place], [place] 2845606-13-2024 13:19-0400Body weight 86.64 kgSagar Krause MD Work Phone: 1(492)408-[address] [place] [address] [employer] Dmprxe96-10-0292 13:54-0400Body height 165.1 Heather Brandee TEAROOM HOST[employer] Work Phone: 1(082)[address] [employer] Jchyjq86-82-9473 13:54-0400Body mass index (BMI) [Ratio]33.45 kg/m2Radha Asif TEAROOM HOST[employer] Work Phone: 1(668)839-[address] [place], [place] 2845604-17-2024 13:54-0400Body weight 91.17 kgRadha Asif TEAR[employer]OM HOST[employer] Work Phone: 1(400)912-[address] [place] [address] [employer] Cpcbhu41-28-0710 09:30-0500Body height 161.93 cmNetta Montoya Other [employer] Other 12-04-2023 09:30-0500Body mass index (BMI) [Ratio] 34.46 kg/e8IxztqaNetta Montoya Other [employer] Other 12-04-2023 09:30-0500Body qzkqge34.36 kgNetta Montoya Other [employer] Other 12-04-2023 09:30-0500Diastolic blood ovdfjomx10 mm[Hg] Netta Lindsay Other [facility] [employer] Other 12-04-2023 09:30-0500Systolic blood psyfzery061 mm[Hg] Netta Lindsay Other [place] [employer] Other 11-30-2023 14:48-0500Body .1 Cole Krause MD Work Phone: [employer]11-30-2023 14:48-0500Body mass index (BMI) [Ratio]33.58 kg/z9CjygsSagar Krause MD Work Phone: [employer]11-30-2023 14:48-0500Body weight 91.54 kgSagar Krause MD Work Phone: [employer]08-15-2023 13:30-0400Body height 161.93 Victoria Boyce Other [employer] Other 08-15-2023 13:30-0400Body mass index (BMI) [Ratio] 32.52 kg/u9BpvrzrbiSiva Boyce Other [employer] Other 08-15-2023 13:30-0400Body jgzequ59.28 kgLafarideh Boyce Other [employer] Other 08-15-2023 13:30-0400Diastolic blood mkndgfdo77 mm[Hg] Siva Boyce Other [employer] Other 08-15-2023 13:30-0400Systolic blood oldrafox569 mm[Hg] Siva Boyce Other [facility] [employer] Other 06-15-2023 15:15-0400Body vxyamq322.1 cmChamo Asif APRN-[employer] Work Phone: [employer]06-15-2023 15:15-0400Body mass index (BMI) [Ratio]31.51 kg/m2Radha Asif [employer] Work Phone: [facility]06-15-2023 15:15-0400Body gezwgnzjwzr84.01 [degF]Radha Asif [employer] Work Phone: [facility]06-15-2023 15:15-0400Body weight 85.9 kgRadha Asif APRN-[employer] Work Phone: [facility]05-02-2023 09:30-0400Body height 161.93 cmNetta Montoya Other [employer] Other 05-02-2023 09:30-0400Body mass index (BMI) [Ratio] 33.04 kg/a2UiqhwnNetta Montoya Other [employer] Other 05-02-2023 09:30-0400Body awlsln71.64 kgNetta Montoya Other [employer] Other 05-02-2023 09:30-0400Diastolic blood hvxvavaf42 mm[Hg] Netta Montoya Other [employer] Other 05-02-2023 09:30-1052SqW6% (BldA) [Mass fraction]97 % Netta Montoya Other [employer] Other 05-02-2023 09:30-0400Systolic blood zmleaqdi911 mm[Hg] Netta Montoya Other [employer] Other 04-24-2023 15:45-0400Body iycore053.93 cmLjonathan Boyce Other [employer] Other 04-24-2023 15:45-0400Body mass index (BMI) [Ratio] 34.08 kg/b8Vggskwgfyanelis Boyce Other [employer] Other 04-24-2023 15:45-0400Body gpylxl67.36 kgLafarideh Boyce Other [employer] Other 04-24-2023 15:45-0400Diastolic blood tlgyeomq08 mm[Hg] Siva Boyce Other [employer] Other 04-24-2023 15:45-0400Systolic blood hyhoanas570 mm[Hg] Siva Boyce Other [employer] Other 03-23-2023 13:58-0400Body .1 Cole Krause MD Work Phone: [employer]03-23-2023 13:58-0400Body mass index (BMI) [Ratio]32.12 kg/e1WlnlsSagar Krause MD Work Phone: [employer]03-23-2023 13:58-0400Body weight 87.54 kgSagar Krause MD Work Phone: [employer]01-31-2023 14:30-0500Body height 161.93 cmNetta Montoya Other [employer] Other 01-31-2023 14:30-0500Body mass index (BMI) [Ratio] 34.08 kg/p5FgyfmjNetta Montoya Other [place] [employer] Other 01-31-2023 14:30-0500Body umzlpq77.36 kgNetta Montoya Other [employer] Other 01-31-2023 14:30-0500Diastolic blood pioaxbeg34 mm[Hg] Netta Montoya Other [employer] Other 01-31-2023 14:30-0500Systolic blood ebtxethr047 mm[Hg] Netta Montoya Other [employer] Other 01-04-2023 16:30-0500Body .93 cmNetta Montoya Other [employer] Other 01-04-2023 16:30-0500Body mass index (BMI) [Ratio] 33.21 kg/d4BlwitlNetta Montoya Other [employer] Other 01-04-2023 16:30-0500Body .09 kgNetta Montoya Other [employer] Other 01-04-2023 16:30-0500Diastolic blood qagugccg12 mm[Hg] Netta Montoya Other [employer] Other 01-04-2023 16:30-2906CmC1% (BldA) [Mass fraction]97 % Netta Montoya Other [employer] Other 01-04-2023 16:30-0500Systolic blood tqzwuxha468 mm[Hg] Netta Montoya Other [employer] Other Encounters Encounter DateEncounter TypeCare ProviderFacilityStart: 07-07-2025 End: 11-07-9097qaboadljahIueqdi E Braun MD Work Phone: [phone]-Hhtsbqygc Sleep LabStart: 07-07-2025 End: 66-18-8151Kljlfmc encounter procedureDaprecious Fonseca MD-[facility] Work Phone: Start: 06-23-2025 End: 67-28-4059fmjfjasnxlZzoubb E Braun MD Work Phone: [facility] Work Phone: Start: 06-23-2025 End: 20-67-3510Azlizia encounter procedureNetta Montoya MD-[facility] Work Phone: Start: 05-13-2025 End: 37-48-4076vvwhhbfeggFtgmig E Braun MD Work Phone: [facility] Work Phone: Start: 05-13-2025 End: 42-58-5777Cobktgb encounter procedureNetta Montoya MD-[facility] Work Phone: Start: 05-06-2025 End: 45-94-9975aorsgdrcuuWwuxyp E Braun MD Work Phone: [facility] Work Phone: Start: 05-06-2025 End: 75-57-1542Fllwuqj encounter procedureSuzanne Madrigal DO-[facility] [place] Work Phone: Start: 04-21-2025 End: 33-59-1039wddwjwowgpLdrdtk E Braun MD Work Phone: [facility] Work Phone: Start: 04-21-2025 End: 03-90-1417Hgsuzzk encounter procedureDaprecious Fonseca [facility] Work Phone: Start: 78-63-2333Vpgnj out of hoursTwan Diaz MD Work Phone: [facility] Work Phone: Start: 92-07-0976Yn-person encounterTwan Diaz MD Work Phone: [facility] Work Phone: start: 04-06-2025 End: 23-27-6780lbblhmudnkLkdxjz E Braun MD Work Phone: [facility] Work Phone: Start: 04-06-2025 End: 84-22-8427Cqmcntm encounter procedureRyterrence Giles APRN-[facility] Work Phone: Start: 25-82-5249Nmk-patient / Non-visitNetta Montoya MD-[facility] Work Phone: Start: 02-25-2025 End: 71-86-7960Lxohwecnmt Christina Castillo Work Phone: Referring PhysicianComment on above:Left knee pain, unspecified chronicity (Primary Dx)Start: 02-09-2025 End: 83-43-5773zgernvskhjOueuqia Vytautas Giedraitis MDFacility:[facility] Start: 01-05-2025 End: 97-53-7351exhirpdnxuXgqbynz Vytautas Giedraitis MDFacility:[facility] Start: 12-26-2024 End: 42-78-0310eboqnnqtjfEpck M ScovannerFacility:[facility]art: 12-26-2024 End: 87-79-0892Gxrxgau encounter procedureC[facility] Work Phone: Start: 12-22-2024 End: 74-10-5054mssekployiXwncuml Vytautas Giedraitis MDFacility:[facility] Start: 12-10-2024 End: 27-87-2766hrkbdlzvztMmgeni E Braun MD Work Phone: [facility] Work Phone: Start: 12-10-2024 End: 16-60-9066Rxkxrzk encounter procedureNetta Montoya MD Work Phone: [facility] Work Phone: Start: 29-06-3275Fhb-patient / Non-visitNetta Montoya MD Work Phone: [facility] Work Phone: Start: 10-21-2024 End: 92-24-7625kuyomanawwDfysql E Braun MD Work Phone: [facility] Work Phone: Start: 10-21-2024 End: 07-37-2637Pvhtspw encounter procedureNetta Montoya MD Work Phone: [facility] Physician [facility] Work Phone: Start: 09-30-2024 End: 16-09-1349Ofgphte encounter procedureNetta Montoya MD Work Phone: [facility] [place] Work Phone: Start: 09-30-2024 End: 64-96-2024peslhjpttpIbygza E Braun MD Work Phone: [facility] Work Phone: Start: 09-30-2024 End: 50-56-7710Aczcwfv encounter procedureNetta Montoya MD Work Phone: [facility] Physician [facility] Work Phone: Start: 09-19-2024 End: 08-48-1980xoaxdjjrlrRGCMXRQ [facility] Start: 96-40-7899bueimwavmgMPZGAERUABWG [facility] Start: 09-08-2024 End: 40-93-4624xwtixsxusvPzbjrlzAl Edouard MDFacility:[facility] Start: 08-29-2024 End: 54-48-9057Ieinvph encounter procedureNetta Montoya MD Work Phone: [facility] Work Phone: Start: 08-29-2024 End: 64-22-8144xvvmvmvecnHmaa M ScovannerFacility:[facility] Hospitaltart: 08-29-2024 End: 40-09-2603Jikizge encounter procedureNetta Montoya MD Work Phone: [facility] Physician [facility] Work Phone: Start: 08-18-2024 End: 67-87-5405cgitcrdfnyPfqggvoMegan Edouard MDFacility:[facility] Start: 32-26-7507sioihfbnwsVFHWZCGHRIZKDuke University Hospital Start: 07-29-2024 End: 74-09-3465Fbhvvdq encounter procedureNetta Montoya MD Work Phone: [facility] Physician [facility] Work Phone: Start: 07-17-2024 End: 47-89-9141Elyorek encounter procedureNetta Montoya MD Work Phone: [facility] Work Phone: Start: 79-50-9662nsdeqqaozhDSYNProMedica Memorial Hospitaltart: 04-14-2024 End: 70-39-4424jfjrqlabuqGJPNProMedica Memorial Hospitaltart: 02-21-2024 End: 08-40-9232Wocuiu outpatient visit 25 minutesSagar Krause MD Work Phone: [facility] OrthopedicsComment on above:Hx of total knee arthroplasty, left (Primary Dx); Pain in prosthetic joint, subsequent encounterStart: 02-21-2024 End: 59-18-4879Ysztlrncnn hospital visit by Yuly Krause MD Work Phone: [facility] RadiologyStart: 75-43-4680sxmbtftdyv NETTA BRAUNInspira Medical Center Elmertart: 01-09-2024 End: 70-95-1698dwrmvtrduhFZMC Marion Hospitaltart: 12-26-2023 End: 84-73-2342dcqorwsuosHMUGProMedica Memorial Hospitaltart: 12-26-2023 End: 41-58-7138Cmcoiq outpatient visit 15 minutesRadha Asif APRN-KEIRA Work Phone: [facility] OrthopedicsComment on above:Hx of total knee arthroplasty, left (Primary Dx)Start: 12-26-2023 End: 49-18-6766Pvezkaghza hospital visit by Chiara SANTOS Work Phone: [facility] RadiologyStart: 09-26-6671qdpipfxojuBLOP MILEYAvita Ontario HospitalStart: 10-22-2023 End: 14-07-3770grmmefoacuMyqripmt McCormack Other noFIXO TwoF Other Start: 59-42-9756Mrnyumkub encounterLafarideh Boyce [facility] GastroenterologyStart: 08-13-2023 End: 01-02-1080bhwwfqwnkdTnedku Braun Other [employer] Other Start: 24-06-2778Npagmq outpatient visit [address] [facility] ClinicStart: 08-09-2023 End: 15-56-3696Ejlxkt outpatient visit 15 minutesSagar Krause MD Work Phone: [facility] OrthopedicsComment on above:Post-op pain (Primary Dx); Pain in prosthetic joint, subsequent encounterStart: 08-09-2023 End: 92-00-2094Ukrrknixsq hospital visit by Yuly Krause MD Work Phone: [facility] RadiologyStart: 52-04-2221usjbgcfnex NETTA Rahman [facility]: 06-19-2023 End: 58-19-9887gbkbxegyulIW Marcia E Braun Work Phone: [facility] Work Phone: Start: 06-19-2023 End: 04-84-2232Htmgjdc encounter procedure Netta Montoya Work Phone: [facility]-XRay [facility] Work Phone: Start: 05-22-2023 End: 86-40-4450jrjjjlakltSakfvdlm McCormack Other [employer]wall Other Start: 99-22-3450Tohsfbnir encounterLafarideh Boyce [facility] Referral CoordinatorStart: 05-09-2023 End: 75-99-0087pwrbgujrlbYW Marcia Sushila Lindsay Work Phone: [facility] Work Phone: Start: 05-09-2023 End: 58-85-9817Tzskoqp encounter procedure Netta Montoya Work Phone: [facility]-Dig[facility]ive [facility] Work Phone: Start: 04-26-2023 End: 19-74-6713usnxkcjngfFvzcms Braun Other [employer] Other Start: 21-31-2154Snxcplvcx encounterNetta Marroquin GastroenterologyStart: 04-24-2023 End: 44-25-6418tniszojnrnUnwaxceq McCormack Other [employer] Other Start: 67-94-4364Lrzera outpatient visit 25 minutes Siva Carty GastroenterologyStart: 04-23-2023 End: 13-99-4779ncajeorrdzXkkysf Braun Other [employer] Other Start: 53-00-2897Vxasnulge encounterNetta Marroquin [facility]tart: 04-20-2023 End: 11-22-7840tykjgxpulfQdebbb Montoya Other [employer] Other Start: 26-44-9038Rohbtsnix encounterMarcia LindsayPremier Health [facility] ClinicStart: 03-15-2023 End: 38-40-5578icvyewmkiqYxidhlnw Ariadne Other [employer] Other Start: 42-29-6141Ybaawgsya encounterLawrence Ariadne [facility] GastroenterologyStart: 02-22-2023 End: 86-76-2941Numsfc follow up visit related to original Aline Asif [employer] Work Phone: [facility] OrthopedicsComment on above:Hx of total knee arthroplasty, left (Primary Dx)Start: 02-19-2023 End: 00-68-4536xijvcnbwnbWfhfav Braun Other [employer]wall Other Start: 67-69-7380Fksbkjduo encounterMarcia GerardoQuorum Health ClinicStart: 01-18-2023 End: 99-82-7428wuoobqmwcbMA L R MCCORMACKFacility:B1Nszsa: 01-17-2023 End: 73-75-6950dkyatyumgfOneoscrj Ariadne Other theeventwall Other Start: 05-10-9311Hlymupofo encounterLawrence Ariadne [facility] GastroenterologyStart: 01-16-2023 End: 69-44-2589hkiodhxcozQjbqbmyp Ariadne Other [employer] Other Start: 53-94-5612Parkpyuhd encounterLawrence Ariadne [facility] GastroenterologyStart: 18-44-4263Pyctajevi for other preprocedural examinationMarcia [facility] ClinicStart: 68-87-6549Atxawy outpatient visit 15 minutesMarcia LindsayFPG [facility] ClinicStart: 07-67-4714Cwcpiuhaj encounterMarkapil Marroquin [facility] ClinicStart: 01-09-2023 End: 77-89-2986sgvdgsvlbvXK L R ARIADNEtheeventwall Other Start: 01-08-2023 End: 42-62-3799ymrxknaokcNB L R ARIADNEFacility:X8Xgaze: 01-02-2023 End: 72-48-2413kcjspibhaiOahlxzod McCormack Other [employer] Other Start: 49-13-9929Omhprqguv encounterLafarideh Boyce [facility] Referral CoordinatorStart: 01-01-2023 End: 65-41-1336bytvixartjZpcvwwoh McCormack Other [employer]wall Other Start: 84-24-4480Jxeepy outpatient new 45 minutes Siva Carty GastroenterologyStart: 11-30-2022 End: 04-60-9267Eitpnj outpatient new 60 minutesSagar Krause MD Work Phone: [facility] OrthopedicsComment on above:Pain in prosthetic joint, sequela (Primary Dx)Start: 11-30-2022 End: 03-14-8669Zadhslcvsu hospital visit by Yuly Krause MD Work Phone: [facility] RadiologyStart: 11-28-2022 End: 44-32-7343daejvxkgcxQX MATTHEW MORROWFacility:H3Btbpc: 11-09-2022 End: 68-04-1597bvisydztsuYWAEII KIMFacility:P3Wvlyx: 10-18-2022 End: 57-59-5128lntpkqjmsjEN MATTHEW MORROWFacility:U7Nnujv: 10-10-2022 End: 06-71-7309bzleagyeywZfwqcg Braun Other theeventwall Other Start: 00-54-4298Kwclaq outpatient visit 15 minutes Netta [facility]roquin [facility]tart: 09-22-2022 End: 52-61-4636escohddlejBiucyt Braun Other theeventwall Other Start: 50-86-2023Bdrowokos encounterNetta Marroquin [facility] Hospitaltart: 09-13-2022 End: 19-36-7459kzykxldgptZVAUP [employer]FIX[employer] Other Start: 20-19-6010Ccelsf outpatient visit 15 minutes Netta Marroquin [facility] Hospitaltart: 08-23-2022 End: 23-34-3812nmsnaqnblmWBCPO WILLIAMSFacility:K5Bfdau: 08-22-2022 End: 66-63-2927icgslcultzZVENJ ESHAFacility:W4Dijmb: 08-08-2022 End: 78-09-1796qadpqmdyfsXE PELON ALEXANDREFacility:P1Vqxht: 89-14-6522Ksaij health examinationNetta Montoya Other theeventwall Other Start: 84-09-8505Unvxxbkjfbbvk examination normal Netta Montoya Other the[employer]wall Other Start: 87-65-0485Pqs-procedure evaluation checkNetta Montoya Other theeventwall Other Start: 07-11-2022 End: 18-37-2336uhzqdycpvkGE NETTA Conti LINDSAYFacility:Z6Rbgok: 07-05-2022 End: 49-80-0208fnmyablgloTUGKT D HIGHLANDERFacility:V0Ygene: 04-08-2022 End: 23-22-5283kfgyvezbbeWX DOCTOR MISCFacility:E6Mqydd: 43-74-5510gjxwwuulft SABINA DELGADILLO .Facility:W3Eybln: 24-00-0082Cmqqtdfbx for other preprocedural examinationDR DOCTOR MISCThe Torres HospitalStart: 03-27-2022 End: 58-97-2164nrvegnxsdpTH DOCTOR MISCFacility:U5Iiynx: 03-27-2022 End: 22-38-2209Kzikjbhdr for other preprocedural examinationDR DOCTOR MISC Facility:I1Eiqhc: 03-21-2022 End: 68-79-1651mwfuqovklfBC PAWELELENA REESE .Facility:B3Ywjij: 03-08-2022 End: 31-87-9885buyspuukbfLO PAWEL S REESE .Facility:G4Anzsg: 02-24-2022 End: 07-34-4789swavsxotwfXV NETTA MONTOYAFacility:T1Idfwp: 01-30-2022 End: 10-33-3780kttjrdytejSM MARCIA E BRAUNFacility:H1 Procedures DateProcedureProcedure DetailPerforming ClinicianStart: 29-91-7381Tjppf pressure within normal parameters - no follow-up requiredTwan Diaz MD Work Phone: Start: 27-09-9481ENU documented as above normal parameters - follow-up documentedTwan Diaz MD Work Phone: Start: 81-85-4296Pnzktdt tobacco non-user cad cap copd pv dmTwan Diaz MD Work Phone: Start: 46-11-5563Eslclwecyanvt of current medications Twan Diaz MD Work Phone: Start: 18-56-6523Iobor plan of care Gale Diaz MD Work Phone: Start: 95-95-6522Kdlkh risk assessment documentedTwan Diaz MD Work Phone: Start: 20-64-7617Zo falls assess docd 2/> falls/fall w/injury/yrTwan Diaz MD Work Phone: Start: 84-41-8693Vzvk assessment not documented - reason not givenTwan Diaz MD Work Phone: Start: 66-02-1457Ewasgkmb therapy managementwTan Diaz MD Work Phone: Start: 39-92-0619Igfuis abdominal X-rayNetta Montoya MD Work Phone: Start: 23-69-8279Qbmzqt abdominal X-rayNetta Montoya MD Work Phone: Start: 98-83-1325Yffgndjjlybxxq aspir&/inj major jt/bursa w/o Linda Krause MD Work Phone: Start: 60-07-1466O-ray of lumbar spine, four or more viewsMD Netta Lindsay Work Phone: Start: 38-49-6744Lpsogaxleo elastography of liverMD Netta Lindsay Work Phone: Start: 94-17-8459Yempqzxi tomography of abdomen and pelvis with contrastMD Netta Lindsay Work Phone: Start: 60-16-0316Ujcnkgezvwxcuxp of liverMD Netta Lindsay Work Phone: Start: 76-80-2817Mnacjwgyzlijxz aspir&/inj major jt/bursa w/o Linda Krause MD Work Phone: Start: 28-81-0108Wsy-surgery evaluationNetta Lindsay Other Plan of Treatment DateCare ActivityDetailAuthorStart: 98-93-5512JYB Vaccine (1 - 1-dose 75+ series)RSV Vaccine (1 - 1-dose 75+ series)[facility]: 05-11[facility]2025 Influenza vaccinationInfluenza Vaccine (Season Ended)[facility]art: 03-23-2025 End: 75-77-7482Yroaftg encounter procedureRadiologyComment on above:Left knee pain, unspecified chronicity [M25.562]Start: 11-80-5871Ayddyuv Directive DiscussionAdvance Directive DiscussionCleMcKitrick Hospitaltart: 93-32-8390Nznthbbft for osteoporosisBone Density ScreeningWright-Patterson Medical Centertart: 09-30-2024 Cryptosporidium sp Ag [Presence] in Stool by ImmunoassayAshtabula General Hospitaltart: 24-88-3933Cmvwqvs lamblia Ag [Presence] in Stool by ImmunoassayAshtabula General Hospitaltart: 45-28-1209Ltlqw-19 Vaccine ( season)Covid-19 Vaccine ( season)[facility]art: 85-01-2320Yzmvtgeqr vaccinationINFLUENZA VACCINE (Season Ended)[facility]: 02-21-2024 End: 42-41-2566QFCOWZU FOR MISC LAB SENDOUTREQUEST FOR MISC LAB SENDOUT Lab Routine Pain in prosthetic joint, subsequent encounter Expected: 02/21/2024, Expires: 02/20/2025[facility] HospitalComment on above:Expected: 02/21/2024, Expires: 02/20/2025Start: 01-30-2024 End: 32-21-2615Yzqdimy encounter ajehvqjpb12/22/2024 1:00 PM EDT Office Visit [facility] [address] [place] [address] Radha Asif, TEAROOM H[employer] [address] [place] [address] [facility]opedicsStart: 08-09-2023 End: 59-31-7608M-reactive proteinC REACTIVE PROTEIN Lab Routine Pain in prosthetic joint, subsequent encounter Expected: 08/09/2023,Expires: 09/06/2023 [facility]Comment [facility]:Expected: 08/09/2023, Expires: 09/06/2023 Start: 08-09-2023 End: 09-08-3704CFJENXFBOLXZU RATE, AUTOMATEDSEDIMENTATION RATE, AUTOMATED Lab Routine Pain in prosthetic joint, subsequent encounter Expected: 08/09/2023 (Approximate), Expires: 09/06/2023[facility] HospitalComment on above:Expected: 08/09/2023 (Approximate), Expires: 09/06/2023Start: 40-58-0177Yrgljmjfnd A1c fdhvasawlbiPHO7N TESTDiley Ridge Medical Centertart: 06-06-2023 End: 13-42-3047Oougjwz encounter qlrxsurzd01/27/2023 1:10 PM EDT Office Visit [facility] [address] [place] [address] Sagar Krause MD [address] [place] [address] [facility]opedicsStart: 14-70-4405JNJYK-19 VACCINE ( season)COVID-19 VACCINE ( season)[facility]ertart: 11-50-0900Toebltyga vaccinationDiley Ridge Medical Centertart: 56-62-0519KfoxfobsgAshtabula General Hospitaltart: 01-04-2023 End: 08-74-6055obskgfycmi90/27/2023 Pre-Operative Nurse Assessment Internal MedicineV[facility]ua Berlin Pre AdmissionStart: 97-78-9938Ibesmykpp vaccination INFLUENZA VACCINE (#1)[facility]art: 16-90-4598Dgxjoqschzkt Vaccine: 50+ (1 of 1 - PCV)Pneumococcal Vaccine: 50+ (1 of 1 - PCV)[facility]ertart: 59-87-5564Ckqrdjtb Vaccine (1 of 2)Shingrix Vaccine (1 of 2)[facility] Start: 26-46-8867Hccvjp vaccine hzv live for subcutaneous useZOSTER (SHINGLES) VACCINE (1 of 2)[facility] Centertart: 49-30-4117Jyobhhpv ScreeningDiabetes ScreeningWright-Patterson Medical Centertart: 93-21-6284Hdyrh panelLipid ScreeningWright-Patterson Medical Centertart: 27-48-5974Dtcnzzgza for malignant neoplasm of colonDiley Ridge Medical Centertart: 01-65-1254Uhjej panelLIPID SCREENINGDiley Ridge Medical Centertart: 21-53-8827Usmnkpnnc for malignant neoplasm of breastDiley Ridge Medical Centertart: 39-41-1084Ryocehitj for malignant neoplasm of cervixCERVICAL CANCER SCREENING DISCUSSIONDiley Ridge Medical Centertart: 69-89-1912Mzneq diphtheria, tetanus and acellular pertussis (DTaP) vaccinationTDAP (ADULT)[facility] Centertart: 56-87-7700Hsosg microalbumin profileDTaP,Tdap,Td Vaccine (1 - Tdap)[facility]ertart: 27-08-6391Edetcgi ScreeningAnxiety ScreeningWright-Patterson Medical Centertart: 19-47-0185Nzixbrmmfd ScreeningDepression ScreeningWright-Patterson Medical Centertart: 99-31-0923Gzfjnwled C screeningHepatitis C ScreeningWright-Patterson Medical Centertart: 55-49-7637FMO screeningHIV ScreeningWright-Patterson Medical Centertart: 27-55-6183TVI screeningHIV SCREENING DISCUSSIONDiley Ridge Medical Centertart: 64-13-0098ZKDPX-19 VACCINE (#1)COVID-19 VACCINE (#1)[facility]ertart: 81-54-6769Jgkuvqfu foot examinationDIABETIC FOOT EXAMDiley Ridge Medical Centertart: 94-00-0717Ihxvmmvc screeningEYE EXAMDiley Ridge Medical Centertart: 12-14-9644Cuiwutumn C screening HEPATITIS C VIRUS SCREENINGDiley Ridge Medical Centertart: 66-27-2686Qmpzb panelLIPIDS [facility]ertart: 55-07-8161Sforkue vaccinationTETANUSAClermont County Hospitaltart: 07-34-5706Zkxvfyg stimulating hormone measurementTSZanesville City Hospitaltart: 68-16-4053Fxydg screening for proteinURINE MICROALBUMIN TESTOhiohealth Doctors HospitalComprehensive metabolic 1999 panel - Serum or PlasmaFisher-Titus Medical CenterComprehensive metabolic 1999 panel - Serum or Plasma [facility]itus Medical CenterRadiography for bone length studiesXR BONE LENGTH STUDY Imaging Routine Pain in prosthetic joint, sequela 11/30/2022 1:41 PM TunePatrolupine abdominal X-rayFisher-Titus Medical Center XR Knee - left 3 ViewsXR KNEE LEFT 3 VIEWS Imaging Routine Pain in prosthetic joint, sequela 11/30/2022 1:41 PM [employer] Work Phone: XR Knee - left 3 ViewsXR KNEE LEFT 3 VIEWS Imaging Routine Hx of total knee arthroplasty, left 02/22/2023 2:50 PM AdBm TechnologiesXR Knee - left 3 ViewsXR KNEE LEFT 3 VIEWS Imaging Routine Post-op pain 08/09/2023 2:03 PM ESTIntellistreamXR Knee - left 3 ViewsXR KNEE LEFT 3 VIEWS Imaging Routine Hx of total knee arthroplasty, left 12/26/2023 1:43 PM EDT [employer]ellistreamXR Knee - left 3 ViewsXR KNEE LEFT 3 VIEWS Imaging Routine Hx of total knee arthroplasty, left 02/21/2024 1:11 [facility] End: 12-32-6945HG Knee - left 4 ViewsXR KNEE GENERAL 4V AP BOTH/PA BOTH/LAT/MERC LEFT Radiology Routine Left knee pain, unspecified chronicity 1 Occurrences starting 02/25/2025 until 03/27/2026[facility] Work Phone: Comment on above:1 Occurrences starting 02/25/2025 until 03/27/2026[facility] Payers DatePayer CategoryPayerPolicy [id number] Health [id number] Health Insurance [id number] [id number] 2..1.013217.3.57[id number] 2..1.250764.3.57[id number] 2..1.405011.3.579.2.02569-60-9262Iguipgd6802643 2..1.194236.3.579.2.83682-78-6698Qplocmp2554142 2..1.674477.3.579.2.80510-99-5689Kfwzeex7468051 2..1.878755.3.579.2.43445-41-4482Ebjqctx3140661 2..1.344503.3.579.2.48217-81-2166Tnncmkg9480448 2.16.840.1.892064.3.579.2.92304-79-5015Oqarxxw3314305 2.16.840.1.344163.3.579.2.19833-17-4854Dovzcok6441386 2.16.840.1.960968.3.579.2.52026-95-9278Ceudbfu1507665 2.16.840.1.912388.3.579.2.92133-83-4746Zzbwdza8838116 2.16.840.1.331902.3.579.2.06264-68-4509Boouryv8535650 2.16840.1.139255.3.579.2.98161-91-4798Brorgkw8005299 2.16840.1.448355.3.579.2.55191-92-7667Lvbnfwc7602763 2.840.1.456129.3.579.2.56271-22-2599Mmqjnna8287688 2.840.1.571668.3.579.2.11469-67-2396Thnnygk8857290 2.16840.1.600558.3.579.2.90966-72-2260Ykzbnfj5005023 2.840.1.351026.3.579.2.85927-23-2362Pnxkbqy7937428 2.16840.1.781438.3.579.2.42325-57-2130Hplnhxq40675282 2.16840.1.418011.3.579.2.42372-70-8193Ttcbmdb87298763 2.16.840.1.327576.3.579.2.55044-73-8139Imcjoiq10126817 2.16840.1.712516.3.579.2.87517-47-0349Kmdhqql78713334 2.16.840.1.493105.3.579.2.32512-49-7353Igsbiya85050275 2.16.840.1.456962.3.579.2.67208-47-4620Rwopgpa31431127 2.16.840.1.375867.3.579.2.73717-67-3241Syfpawz162000392 2.16.840.1.133275.3.579.2.560056-00-0395Ophfgtx818593332 2.16.840.1.574879.3.579.2.969771-02-2913Vuiutpj24023018 2.16.840.1.084926.3.579.2.589482-20-8304Qtajlph40168167 2.16.840.1.395993.3.579.2.890777-59-2369Bunyabs70796158 2.16.840.1.987038.3.579.2.082958-02-4881Mxecwli76158821 2.16.840.1.189438.3.579.2.386128-64-2542Nytdkwg397577275 2.16.840.1.200092.3.579.2.74750-03-7890Bzpqhzr823870398 2.16.840.1.707297.3.579.2.90698-24-6905Dnlythg916352278 2.16.840.1.626994.3.579.2.38734-89-4337Sjldmno020877096 2.16.840.1.800225.3.579.2.33648-95-7772Ahsvgod069724001 2.16.840.1.881431.3.579.2.196 [id number] 2.16.840.1.004036.19 [id number] 97n7w31b-0nn3-1e9n-0800-931w836a2h60 Social History DateTypeDetailFacilityUnknown if ever smokedNosaint francis hospital & health services TwoF Other Start: 02-22-2023 End: 34-99-7764Lcv Assigned At [facility] Two[employer] Other Start: 11-30-2022 End: 16-50-9772Xnvrowe smoking status NHISNever smoked tobaccoEast [facility] Regional Hospital SystemStart: 35-89-4882Dgouknd use and exposureSmokeless tobacco non-userEast [facility] Regional Hospital SystemStart: 11-30-2022 End: 75-35-4974Glrrkea intakeEx-drinker (finding)[facility]ertart: 34-10-1561Nkg Assigned At BirthNot on fileDiley Ridge Medical Centertart: 02-22-2023 End: 23-48-6025Hcgfguq of Social functionEast [facility] Regional Hospital SystemStart: 01-19-2023 End: 58-64-5894Tczrmgpk to SARS-CoV-2 (event)Not sureDiley Ridge Medical Centertart: 84-03-0937Vmh Assigned At BirthFeLouis Stokes Cleveland VA Medical Centertart: 42-47-0033QaiRhimvsv sex unknown (finding)[facility] Start: 10-21-2024 End: 69-23-6364XzcKqkwju (finding)[facility] Hospitaltart: 50-97-5521Lwktwhwlk beverage intakeCurrent non-drinker of alcohol (finding) [facility] Medical Equipment Procedure CodeEquipment CodeEquipment Original TextEquipment IdentifierDatesOne Touch Ultra Test StripsInsert - Knee - [id number]: 01-29-2023 Patella - Knee - [id number]: 93-48-9452Mlbfeduo Pressfit Stem 12mmx [id number]_impStart: 86-32-6258Dmiqznem Tibial Base Sz [id number]_impStart: 34-83-5367Zry Offset Stem [id number]_impStart: 06-35-5725Dlz Distal Femoral Augment Sz 5 [id number]_impStart: 73-93-4298Lab Crs Femoral Sz 5 [id number]_buq Start: 23-33-1274Cqxlaxh R 1 X 40 Us - [id number]_gemVwoso: 01-29-2023 [place] [employer] Bone Cement High-Viscosity With Gentamicin - [id number]_iyt Start: 98-44-0850Ytdxo Sugar Diagnostic (Onetouch Ultra Test) stripStart: 60-00-4157Xft Needle, Diabetic (Bd Ultra-Fine Mini Pen Needle) 31 gauge x 3/16 needleStart: 61-54-8843Yucyi Sugar Diagnostic (Accu-Chek Guide Test Strips) stripStart: 10-26-2023 End: 02-98-0848Spunf Sugar Diagnostic (Accu-Chek Guide Test Strips) stripStart: 10-25-2023 End: 19-83-5206Mrv Needle, Diabetic (Bd Ultra-Fine Mini Pen Needle) 31 gauge x 3/16 needleStart: 07-30-2024 End: 26-08-5296Nzf Needle, Diabetic (Bd Ultra-Fine Mini Pen Needle) 31 gauge x 3/16 needleStart: 07-30-2024 End: 32-96-6766Wgi Needle, Diabetic (Bd Ultra-Fine Mini Pen Needle) 31 gauge x 3/16 needleStart: 07-29-2024 End: 96-24-4624Hjwdl Sugar Diagnostic (Onetouch Ultra Test) stripStart: 80-45-0438Wqq Needle, Diabetic (Bd Ultra-Fine Mini Pen Needle) 31 gauge x 3/16 needleStart: 48-70-5168Pqjcn Sugar Diagnostic (Accu-Chek Guide Test Strips) stripStart: 10-26-2023 End: 95-15-9139Tduhh Sugar Diagnostic (Accu-Chek Guide Test Strips) stripStart: 10-25-2023 End: 75-69-9335Xak Needle, Diabetic (Bd Ultra-Fine Mini Pen Needle) 31 gauge x 3/16 needleStart: 07-30-2024 End: 90-69-6398Dqa Needle, Diabetic (Bd Ultra-Fine Mini Pen Needle) 31 gauge x 3/16 needleStart: 07-30-2024 End: 23-98-9100Ltj Needle, Diabetic (Bd Ultra-Fine Mini Pen Needle) 31 gauge x 3/16 needleStart: 07-29-2024 End: 99-36-9614Bjpin Sugar Diagnostic (Onetouch Ultra Test) stripStart: 42-65-8696Yak Needle, Diabetic (Bd Ultra-Fine Mini Pen Needle) 31 gauge x 3/16 needleStart: 98-50-7808Svsoq Sugar Diagnostic (Accu-Chek Guide Test Strips) stripStart: 10-26-2023 End: 88-85-3370Cesjc Sugar Diagnostic (Accu-Chek Guide Test Strips) stripStart: 10-25-2023 End: 85-08-6547Lho Needle, Diabetic (Bd Ultra-Fine Mini Pen Needle) 31 gauge x 3/16 needleStart: 07-30-2024 End: 05-73-6022Zej Needle, Diabetic (Bd Ultra-Fine Mini Pen Needle) 31 gauge x 3/16 needleStart: 07-30-2024 End: 02-31-6741Rgm Needle, Diabetic (Bd Ultra-Fine Mini Pen Needle) 31 gauge x 3/16 needleStart: 07-29-2024 End: 42-69-7058Qpkpp Sugar Diagnostic (Onetouch Ultra Test) stripStart: 09-63-1075Nrl Needle, Diabetic (Bd Ultra-Fine Mini Pen Needle) 31 gauge x 3/16 needleStart: 51-39-3362Nlvdw Sugar Diagnostic (Accu-Chek Guide Test Strips) stripStart: 10-26-2023 End: 16-85-5701Jrsxi Sugar Diagnostic (Accu-Chek Guide Test Strips) stripStart: 10-25-2023 End: 41-72-9322Nig Needle, Diabetic (Bd Ultra-Fine Mini Pen Needle) 31 gauge x 3/16 needleStart: 07-30-2024 End: 45-36-9492Cpw Needle, Diabetic (Bd Ultra-Fine Mini Pen Needle) 31 gauge x 3/16 needleStart: 07-30-2024 End: 30-11-8783Jjy Needle, Diabetic (Bd Ultra-Fine Mini Pen Needle) 31 gauge x 3/16 needleStart: 07-29-2024 End: 86-89-9313Haoet Sugar Diagnostic (Onetouch Ultra Test) stripStart: 76-77-7309Jei Needle, Diabetic (Bd Ultra-Fine Mini Pen Needle) 31 gauge x 3/16 needleStart: 62-45-2022Unntj Sugar Diagnostic (Accu-Chek Guide Test Strips) stripStart: 10-26-2023 End: 79-86-1455Qujyk Sugar Diagnostic (Accu-Chek Guide Test Strips) stripStart: 10-25-2023 End: 22-77-2321Sba Needle, Diabetic (Bd Ultra-Fine Mini Pen Needle) 31 gauge x 3/16 needleStart: 07-30-2024 End: 18-27-3303Snh Needle, Diabetic (Bd Ultra-Fine Mini Pen Needle) 31 gauge x 3/16 needleStart: 07-30-2024 End: 07-72-9635Tou Needle, Diabetic (Bd Ultra-Fine Mini Pen Needle) 31 gauge x 3/16 needleStart: 07-29-2024 End: 65-54-0434Dmedq Sugar Diagnostic (Onetouch Ultra Test) stripStart: 08-61-5078Vkj Needle, Diabetic 31 gauge x 3/16 needleStart: 40-39-3645Gpgpn Sugar Diagnostic (Accu-Chek Guide Test Strips) stripStart: 10-26-2023 End: 21-43-6350Bjrvs Sugar Diagnostic (Accu-Chek Guide Test Strips) stripStart: 10-25-2023 End: 06-54-0627Rwc Needle, Diabetic (Bd Ultra-Fine Mini Pen Needle) 31 gauge x 3/16 needleStart: 07-30-2024 End: 80-91-1766Epm Needle, Diabetic (Bd Ultra-Fine Mini Pen Needle) 31 gauge x 3/16 needleStart: 07-30-2024 End: 63-60-5577Ska Needle, Diabetic (Bd Ultra-Fine Mini Pen Needle) 31 gauge x 3/16 needleStart: 07-29-2024 End: 89-17-9546Qoh Needle, Diabetic (Bd Ultra-Fine Mini Pen Needle) 31 gauge x 3/16 needleStart: 07-30-2024 End: 20-97-8799Zuvjl Sugar Diagnostic (Onetouch Ultra Test) stripStart: 56-49-8754Sjz Needle, Diabetic 31 gauge x 3/16 needleStart: 33-81-2893Speou Sugar Diagnostic (Accu-Chek Guide Test Strips) stripStart: 10-26-2023 End: 08-12-1260Slzrv Sugar Diagnostic (Accu-Chek Guide Test Strips) stripStart: 10-25-2023 End: 33-56-4725Ckc Needle, Diabetic (Bd Ultra-Fine Mini Pen Needle) 31 gauge x 3/16 needleStart: 07-30-2024 End: 23-21-2270Tub Needle, Diabetic (Bd Ultra-Fine Mini Pen Needle) 31 gauge x 3/16 needleStart: 07-30-2024 End: 43-93-6669Can Needle, Diabetic (Bd Ultra-Fine Mini Pen Needle) 31 gauge x 3/16 needleStart: 07-29-2024 End: 62-66-3372Aqo Needle, Diabetic (Bd Ultra-Fine Mini Pen Needle) 31 gauge x 3/16 needleStart: 07-30-2024 End: 00-31-2889Ddccx Sugar Diagnostic (Onetouch Ultra Test) stripStart: 50-83-7091Txo Needle, Diabetic 31 gauge x 3/16 needleStart: 19-35-0262Gfjoh Sugar Diagnostic (Accu-Chek Guide Test Strips) stripStart: 10-26-2023 End: 16-41-5436Rsujt Sugar Diagnostic (Accu-Chek Guide Test Strips) stripStart: 10-25-2023 End: 59-39-5579Ako Needle, Diabetic (Bd Ultra-Fine Mini Pen Needle) 31 gauge x 3/16 needleStart: 07-30-2024 End: 71-26-6733Tcc Needle, Diabetic (Bd Ultra-Fine Mini Pen Needle) 31 gauge x 3/16 needleStart: 07-30-2024 End: 09-22-2782Dln Needle, Diabetic (Bd Ultra-Fine Mini Pen Needle) 31 gauge x 3/16 needleStart: 07-29-2024 End: 21-14-7564Oxn Needle, Diabetic (Bd Ultra-Fine Mini Pen Needle) 31 gauge x 3/16 needleStart: 07-30-2024 End: 80-67-7680Hpbhq Sugar Diagnostic (Onetouch Ultra Test) stripStart: 58-52-2115Cib Needle, Diabetic 31 gauge x 3/16 needleStart: 59-39-9457Pwuox Sugar Diagnostic (Accu-Chek Guide Test Strips) stripStart: 10-26-2023 End: 81-51-2752Pgjzr Sugar Diagnostic (Accu-Chek Guide Test Strips) stripStart: 10-25-2023 End: 45-42-6844Enn Needle, Diabetic (Bd Ultra-Fine Mini Pen Needle) 31 gauge x 3/16 needleStart: 07-30-2024 End: 61-19-9858Bjh Needle, Diabetic (Bd Ultra-Fine Mini Pen Needle) 31 gauge x 3/16 needleStart: 07-30-2024 End: 84-55-5095Phq Needle, Diabetic (Bd Ultra-Fine Mini Pen Needle) 31 gauge x 3/16 needleStart: 07-29-2024 End: 07-81-8545Gay Needle, Diabetic (Bd Ultra-Fine Mini Pen Needle) 31 gauge x 3/16 needleStart: 07-30-2024 End: 61-98-3232Aahxu Sugar Diagnostic (Onetouch Ultra Test) stripStart: 08-03-3452Pna Needle, Diabetic 31 gauge x 3/16 needleStart: 73-83-9855Kxwwz Sugar Diagnostic (Accu-Chek Guide Test Strips) stripStart: 10-26-2023 End: 97-17-1431Xtose Sugar Diagnostic (Accu-Chek Guide Test Strips) stripStart: 10-25-2023 End: 26-97-9202Qanjx Sugar Diagnostic (Onetouch Ultra Test) stripStart: 09-09-2024 End: 42-14-3019Hys Needle, Diabetic (Bd Ultra-Fine Mini Pen Needle) 31 gauge x 3/16 needleStart: 07-30-2024 End: 49-82-4118Cma Needle, Diabetic (Bd Ultra-Fine Mini Pen Needle) 31 gauge x 3/16 needleStart: 07-30-2024 End: 29-18-8477Bde Needle, Diabetic (Bd Ultra-Fine Mini Pen Needle) 31 gauge x 3/16 needleStart: 07-29-2024 End: 52-71-5481Bqw Needle, Diabetic (Bd Ultra-Fine Mini Pen Needle) 31 gauge x 3/16 needleStart: 07-30-2024 End: 40-60-5300Ymfwz Sugar Diagnostic (Onetouch Ultra Test) stripStart: 94-76-9075Rax Needle, Diabetic 31 gauge x 3/16 needleStart: 58-87-1854Pbkey Sugar Diagnostic (Accu-Chek Guide Test Strips) stripStart: 10-26-2023 End: 19-98-4113Nyggw Sugar Diagnostic (Accu-Chek Guide Test Strips) stripStart: 10-25-2023 End: 96-58-5730Xsxqm Sugar Diagnostic (Onetouch Ultra Test) stripStart: 09-09-2024 End: 66-45-1843Mvx Needle, Diabetic (Bd Ultra-Fine Mini Pen Needle) 31 gauge x 3/16 needleStart: 07-30-2024 End: 87-03-1190Bjd Needle, Diabetic (Bd Ultra-Fine Mini Pen Needle) 31 gauge x 3/16 needleStart: 07-30-2024 End: 99-14-8313Set Needle, Diabetic (Bd Ultra-Fine Mini Pen Needle) 31 gauge x 3/16 needleStart: 07-29-2024 End: 78-65-3757Oot Needle, Diabetic (Bd Ultra-Fine Mini Pen Needle) 31 gauge x 3/16 needleStart: 07-30-2024 End: 28-15-6391Imepu Sugar Diagnostic (Onetouch Ultra Test) stripStart: 51-26-2280Fjq Needle, Diabetic 31 gauge x 3/16 needleStart: 34-64-3853Qyazw Sugar Diagnostic (Accu-Chek Guide Test Strips) stripStart: 10-26-2023 End: 69-10-4820Dgiav Sugar Diagnostic (Accu-Chek Guide Test Strips) stripStart: 10-25-2023 End: 12-62-3408Umdwy Sugar Diagnostic (Onetouch Ultra Test) stripStart: 09-09-2024 End: 77-89-2564Ena Needle, Diabetic (Bd Ultra-Fine Mini Pen Needle) 31 gauge x 3/16 needleStart: 07-30-2024 End: 87-34-6950Sun Needle, Diabetic (Bd Ultra-Fine Mini Pen Needle) 31 gauge x 3/16 needleStart: 07-30-2024 End: 37-90-1547Tqs Needle, Diabetic (Bd Ultra-Fine Mini Pen Needle) 31 gauge x 3/16 needleStart: 07-29-2024 End: 25-31-1768Qhw Needle, Diabetic (Bd Ultra-Fine Mini Pen Needle) 31 gauge x 3/16 needleStart: 07-30-2024 End: 02-16-2025 Goals DatePatient GoalDesired Activity/State Functional Status YmoyHbpisqremyVfiveoBtzxrjim33-22-1058Vbeezhqcqj StatusYeAshtabula [facility] Work Phone: 1(185) 625-457007602604-17-5507srycfefopCTCYIOM CLINIC INC. Work Phone: Mental Status Nppe[id number] FunctionHelen M. [facility] Work Phone: Clinical Notes 03-08-2022 to 04-21-2025 Note Date & [id number] Evaluation note* Diagnosis Onset Date Resolution Status Admit Date Chronic insomnia acuteAugust 2024 10:03amDepressionacuteAugust 2024 10:03amHypnotic dependenceacuteAugust 2024 10:03amOSA (obstructive sleep apnea)acuteAugust 2024 10:03amRestless leg syndromeresolvedAugust 2024 10:03amLeft leg painacuteAugust 2024 2:28pmNumbness and tinglingacuteAugust 2024 2:28pmDysuriaacuteSeptember 2024 10:16amFatigueacuteOctober 2024 10:42amHypocalcemiaacuteOctober 2024 10:42amHypothyroidismacuteOctober 2024 10:42amItchingacuteOctober 2024 10:42amType 2 diabetes mellitus with hyperglycemiaacuteOctober 2024 10:42amChronic insomniaacuteOctober 2024 8:55amHistory of iron deficiencyacuteOctober 2024 8:55am Hypnotic dependenceacuteOctober 2024 8:55amOSA (obstructive sleep apnea) acuteOctober 2024 8:55amGERD (gastroesophageal reflux disease)acuteOctober 2024 9:52am [facility] Work Phone: 1(799) 628-678107-28-2025 Evaluation note* Diagnosis Onset Date Resolution Status Admit Date Fecal urgency acuteJuly 2024 9:09amGERD (gastroesophageal reflux disease)acuteJuly 2024 9:09amHistory of pancreatitisacuteJuly 2024 9:09amIrritable bowel syndrome with constipation and diarrheaacuteJuly 2024 9:09amPancreatic insufficiencyacuteJuly 2024 9:09amChronic insomniaacuteAugust 2024 10:03amDepressionacuteAugust 2024 10:03amExcessive daytime sleepinessacute April 21, 2025 10:03amHypnotic dependenceacuteAugust 2024 10:03am HypothyroidismacuteAugust 2024 10:03amIntolerance to BiPAP/CPAPacuteAugust 2024 10:03amOSA (obstructive sleep apnea)acuteAugust 2024 10:03am Vitamin B12 deficiencyacuteAugust 2024 10:03amRestless leg syndrome resolvedAut 2024 10:03am [facility] Work Phone: 1(738) 629-363307-28-2025 Evaluation note* Diagnosis Onset Date Resolution Status Admit Date Fecal urgency acuteJuly 2024 9:09amGERD (gastroesophageal reflux disease)acuteJuly 2024 9:09amHistory of pancreatitisacuteJuly 2024 9:09amIrritable bowel syndrome with constipation and diarrheaacuteJuly 2024 9:09amPancreatic insufficiencyacuteJuly 2024 9:09amChronic insomniaacuteAugust 2024 10:03amDepressionacuteAugust 2024 10:03amHypnotic dependenceacuteAugust 2024 10:03amOSA (obstructive sleep apnea)acuteAugust 2024 10:03am Restless leg syndromeresolvedAugust 2024 10:03am [facility] Work Phone: 1(941) 760-658907-28-2025 Evaluation note* Diagnosis Onset Date Resolution Status Admit Date Fecal urgency acuteJuly 2024 9:09amGERD (gastroesophageal reflux disease)acuteJuly 2024 9:09amHistory of pancreatitisacuteJuly 2024 9:09amIrritable bowel syndrome with constipation and diarrheaacuteJuly 2024 9:09amPancreatic insufficiencyacuteJuly 2024 9:09amChronic insomniaacuteAugust 2024 10:03amDepressionacuteAugust 2024 10:03amHypnotic dependenceacuteAugust 2024 10:03amOSA (obstructive sleep apnea)acuteAugust 2024 10:03am Restless leg syndromeresolvedAugust 2024 10:03amLeft leg painacuteAugust 2024 2:28pmNumbness and tinglingacuteAugust 2024 2:28pm [facility] Work Phone: 1(741) 264-520707-28-2025 Evaluation note* Diagnosis Onset Date Resolution Status Admit Date Fecal urgency acuteJuly 2024 9:09amGERD (gastroesophageal reflux disease)acuteJuly 2024 9:09amHistory of pancreatitisacuteJuly 2024 9:09amIrritable bowel syndrome with constipation and diarrheaacuteJuly 2024 9:09amPancreatic insufficiencyacuteJuly 2024 9:09amChronic insomniaacuteAugust 2024 10:03amDepressionacuteAugust 2024 10:03amHypnotic dependenceacuteAugust 2024 10:03amOSA (obstructive sleep apnea)acuteAugust 2024 10:03am Restless leg syndromeresolvedAugust 2024 10:03amLeft leg painacuteAugust 2024 2:28pmNumbness and tinglingacuteAugust 2024 2:28pmDysuriaacute May 13, 2025 10:16amFatigueacuteOctober 2024 10:42amHypocalcemia acuteOctober 2024 10:42amHypothyroidismacuteOctober 2024 10:42am ItchingacuteOctober 2024 10:42amType 2 diabetes mellitus with hyperglycemiaacuteOctober 2024 10:42am [facility] Work Phone: 1(421) 439-888205-22-2025 NoteReceived referral again for same dx. LVM for pt to call clinic to schedule consult with Dr. Mccord to discuss SCS. Please let consumer loan underwriter know when scheduled. [facility] will need notified. Imaging obtained.[facility] 10-21-2024 Evaluation note* Diagnosis Onset Date Resolution Status Admit Date Chronic insomnia acuteFebruary 2024 8:57amDepressionacuteFebruary 2024 8:57amHypnotic dependenceacuteFebruary 2024 8:57amHypothyroidismacuteFebruary 2024 8:57amIntolerance to BiPAP/CPAPacuteFebruary 2024 8:57amOSA (obstructive sleep apnea)acuteFebruary 2024 8:57amRestless leg syndromeacuteFebruary 2024 8:57amVitamin B12 deficiencyacuteFebruary 2024 8:57amMaxillary sinusitisacuteApril 2024 8:54amTension headacheacuteApril 2024 8:54am Type 2 diabetes mellitus with hyperglycemiaacuteApril 2024 8:54amBloating acuteApril 2024 10:06amFecal incontinenceacuteApril 2024 10:06am Fecal urgencyacuteApril 2024 10:06amGas bloat syndromeacuteApril 2024 10:06amIrritable bowel syndrome with constipation and diarrheaacuteApril 2024 10:06am [facility] Work Phone: 1(917) 344-864002-11-2025 Evaluation note* Diagnosis Onset Date Resolution Status Admit Date Chronic insomnia acuteFebruary 2024 8:57amDepressionacuteFebruary 2024 8:57amHypnotic dependenceacuteFebruary 2024 8:57amHypothyroidismacuteFebruary 2024 8:57amIntolerance to BiPAP/CPAPacuteFebruary 2024 8:57amOSA (obstructive sleep apnea)acuteFebruary 2024 8:57amRestless leg syndromeacuteFebruary 2024 8:57amVitamin B12 deficiencyacuteFebruary 2024 8:57amMaxillary sinusitisacuteApril 2024 8:54amTension headacheacuteApril 2024 8:54am Type 2 diabetes mellitus with hyperglycemiaacuteApril 2024 8:54amBloating acuteApril 2024 10:06amFecal urgencyacuteApril 2024 10:06amGas bloat syndromeacuteApril 2024 10:06amGERD (gastroesophageal reflux disease) acuteApril 2024 10:06amIrritable bowel syndrome with constipation and diarrheaacuteApril 2024 10:06am [facility] Work Phone: 1(861) 424-207601-21-2025 Evaluation note* Diagnosis Onset Date Resolution Status Admit Date Abdominal pain acuteJanuary 2024 1:49pmBloatingacuteJanuary 2024 1:49pmGERD (gastroesophageal reflux disease)acuteJanuary 2024 1:49pmIrritable bowel syndrome with constipation and diarrheaacuteJanuary 2024 1:49pmNauseaacute September 30, 2024 1:49pmChronic insomniaacuteFebruary 2024 8:57am DepressionacuteFebruary 2024 8:57amHypnotic dependenceacuteFebruary 2024 8:57amHypothyroidismacuteFebruary 2024 8:57amIntolerance to BiPAP/CPAPacuteFebruary 2024 8:57amOSA (obstructive sleep apnea)acute February 2024 8:57amRestless leg syndromeacuteFebruary 2024 8:57am Vitamin B12 deficiencyacuteFebruary 2024 8:57amType 2 diabetes mellitus with hyperglycemiaacuteApril 2024 8:54am [facility] Work Phone: 1(629) 476-159911-19-2024 Evaluation note* Diagnosis Onset Date Resolution Status Admit Date Type 2 diabetes mellitus with hyperglyce christina acuteNovember 2023 9:30amAbdominal crampingacuteDecember 2023 10:41amBloatingacuteDecember 2023 10:41amGERD (gastroesophageal reflux disease)acuteDecember 2023 10:41amHistory of pancreatitisacuteDecember 2023 10:41amIrritable bowel syndrome with constipation and diarrheaacute August 29, 2024 10:41amNauseaacuteDecember 2023 10:41amPancreatic insufficiencyacuteDecember 2023 10:41amAbdominal painacuteJanuary 2024 1:49pmBloatingacuteJanuary 2024 1:49pmGERD (gastroesophageal reflux disease)acuteJanuary 2024 1:49pmIrritable bowel syndrome with constipation and diarrheaacuteJanuary 2024 1:49pmNauseaacuteJanuary 2024 1:49pm Chronic insomniaacuteFebruary 2024 8:57amDepressionacuteFebruary 2024 8:57amExcessive daytime sleepinessacuteFebruary 2024 8:57amHypnotic dependenceacuteFebruary 2024 8:57amHypothyroidismacuteFebruary 2024 8:57amIntolerance to BiPAP/CPAPacuteFebruary 2024 8:57amOSA (obstructive sleep apnea)acuteFebruary 2024 8:57amRestless leg syndromeacuteFebruary 2024 8:57amVitamin B12 deficiencyacuteFebruary 2024 8:57am [facility] Work Phone: 1(471) 145-398211-07-2024 Evaluation note* Diagnosis Onset Date Resolution Status Admit Date Chronic insomnia acuteNovember 2023 1:45pmDepressionacuteNovember 2023 1:45pmExcessive daytime sleepinessacuteNovember 2023 1:45pmHypnotic dependenceacuteNovember 2023 1:45pmHypothyroidismacuteNovember 2023 1:45pmIntolerance to BiPAP/CPAPacuteJuly 17, 2024 1:45pmOSA (obstructive sleep apnea)acute July 17, 2024 1:45pmRestless leg syndromeacuteJuly 17, 2024 1:45pm Vitamin B12 deficiencyacuteJuly 17, 2024 1:45pmType 2 diabetes mellitus with hyperglycemiaacuteJuly 29, 2024 9:30amAbdominal crampingacuteDecember 2023 10:41amBloatingacuteDecember 2023 10:41amGERD (gastroesophageal reflux disease)acuteDe2023 10:41amHistory of pancreatitisacuteer 2023 10:41amIrritable bowel syndrome with constipation and diarrheaacuteer 2023 10:41amNauseaacuteDecember 2023 10:41amPancreatic insufficiencyacuteceer 2023 10:41am Abdominal painacuteJanuary 2024 1:49pmBloatingacuteJanuary 2024 1:49pmGERD (gastroesophageal reflux disease)acuteJanuary 2024 1:49pm Irritable bowel syndrome with constipation and diarrheaacuteSepuary 2024 1:49pmNauseaacuteJanuary 2024 1:49pm [facility] Work Phone: 1(337) 514-856406-13-2024 History of Present illness Narrative* Sandra Canales [...] 02/21/2024 1:17 PM Patient: Emily Macias MR#: [id number] : 1960 Age: 63 y.o. Referring Physician: [...] daily. 60 capsule 0 Cholecalciferol 250 MCG (13076 UT) capsule capsule Take by mouth daily. [...] DR tablet Take by mouth daily. Pancrelipase, Inm-Umtc-Cffj, (CREON PO) Take 36,000 Units by mouth. [...] by Nasal route once for 1 dose. [place] into the nose as directed. Call 911. [...] 60 capsule, Rfl: 0 Cholecalciferol 250 MCG (87331 UT) capsule capsule, Take by mouth daily., [...] by mouth daily., Disp: , Rfl: Pancrelipase, Glg-Xmnb-Isin, (CREON PO), Take 36,000 Units by mouth. [...] by Nasal route once for 1 dose. [place] into the nose as directed. Call 911. [...] bracing and also reported she applied for director financial analysis for additional PT. Should she need additional [...] have reviewed the findings of the clinical server support technician and agree with their assessment. Ortho Nurse - Established Patient Intake Room#: 2 Pt is here for left knee pain ( LTKA revision 01/30/24. Pt states that she is still having pain in her knee. Pain is 4-5. Pt did physical therapy, and took the medication but no relief. Pt would like to discuss options Date: 02/21/2024 1:17 PM Patient: Emily Macias MR#: [id number] : 1960 Age: 63 y.o. Referring Physician: [...] daily. 60 capsule 0 Cholecalciferol 250 MCG (09058 UT) capsule capsule Take by mouth daily. [...] DR tablet Take by mouth daily. Pancrelipase, Wxk-Xrjg-Arwl, (CREON PO) Take 36,000 Units by mouth. [...] by Nasal route once for 1 dose. [place] into the nose as directed. Call 911. [...] 60 capsule, Rfl: 0 Cholecalciferol 250 MCG (87172 UT) capsule capsule, Take by mouth daily., [...] by mouth daily., Disp: , Rfl: Pancrelipase, Ynz-Tdad-Huve, (CREON PO), Take 36,000 Units by mouth. [...] by Nasal route once for 1 dose. [place] into the nose as directed. Call 911. [...] zanaflex [tizanidine], and vancomycin. documented in this encounterOhio[facility] History of Present illness Narrative* Raven Mera - 12/26/2023 2:00 PM EDT Ortho Nurse - Established Patient Intake Room#: 5 Date: 12/26/2023 1:55 PM Patient: Emily Macias MR#: [id number] : 1960 Age: 63 y.o. 1yr L [...] daily. 60 capsule 0 Cholecalciferol 250 MCG (99689 UT) capsule capsule Take by mouth daily. [...] DR tablet Take by mouth daily. Pancrelipase, Mqw-Yqhy-Qlog, (CREON PO) Take 36,000 Units by mouth. [...] by Nasal route once for 1 dose. [place] into the nose as directed. Call 911. [...] 60 capsule, Rfl: 0 Cholecalciferol 250 MCG (52434 UT) capsule capsule, Take by mouth daily., [...] by mouth daily., Disp: , Rfl: Pancrelipase, Jym-Xaqj-Abcb, (CREON PO), Take 36,000 Units by mouth. [...] by Nasal route once for 1 dose. [place] into the nose as directed. Call 911. [...] She thinks she had that done at [facility]. We will try and obtain those [...] up with Dr. Krause for clinical examination. (DOC:[id number]) I have reviewed the findings of the clinical server support technician and agree with their assessment. Radha Asif APRN-KEIRA Ortho Nurse - Established Patient Intake Room#: 5 Date: 12/26/2023 1:55 PM Patient: Emily Macias MR#: [id number] : 1960 Age: 63 y.o. 1yr L TKA Pt stated her knee has been locking on her and has pain 5/10. Pt stated she is almost always a 4-5/10 on the pain scale. Referring Physician: Self, Self Insurance: Payor: MEDICARE [employer] HMO OR PPO / Plan: MEDICARE AETJ[employer] HMO / Product Type: *No Product type* [...] daily. 60 capsule 0 Cholecalciferol 250 MCG (95552 UT) capsule capsule Take by mouth daily. [...] DR tablet Take by mouth daily. Pancrelipase, Abu-Gtgj-Bivk, (CREON PO) Take 36,000 Units by mouth. [...] by Nasal route once for 1 dose. [place] into the nose as directed. Call 911. [...] 60 capsule, Rfl: 0 Cholecalciferol 250 MCG (56661 UT) capsule capsule, Take by mouth daily., [...] by mouth daily., Disp: , Rfl: Pancrelipase, Caw-Xlog-Pciw, (CREON PO), Take 36,000 Units by mouth. [...] by Nasal route once for 1 dose. [place] into the nose as directed. Call 911. [...] zanaflex [tizanidine], and vancomycin. documented in this encounterOhio[facility]12-04-2023 Evaluation note* Encounter Date Diagnosis Assessment Notes Treatment Notes Treatment Clinical Notes Aug, Piriformis syndrome, right (ICD- 10 - G57.01) Pt declines PT at this time. Gave handouts for exercises and use flexeril qhs. Aug,Trochanteric bursitis, right hip (ICD-10 - M70.61)Pt declines PT. Muscle relaxer and handouts given. [facility] Other 11-30-2023 History of Present illness Narrative* [...] 08/09/2023 2:58 PM Patient: Emily Macias MR#: [id number] : 1960 Age: 62 y.o. Referring Physician: Sagar Krause MD Insurance: Payor: MEDICARE [employer] HMO OR PPO / Plan: MEDICARE AETJawsome Dive Adventures O / Product Type: *No Product type* [...] DR tablet Take by mouth daily. Pancrelipase, Tjn-Mjpg-Cagv, (CREON PO) Take 36,000 Units by mouth. [...] taking: Reported on 08/09/2023) Cholecalciferol 250 MCG (48514 UT) capsule capsule Take by mouth daily. [...] by Nasal route once for 1 dose. Red[place] into the nose as directed. Call 911. [...] have reviewed the findings of the clinical server support technician and agree with their assessment. Ortho Nurse [...] 08/09/2023 2:58 PM Patient: Emily Macias MR#: [id number] : 1960 Age: 62 y.o. Referring Physician: [...] DR tablet Take by mouth daily. Pancrelipase, Gdw-Ugqm-Tnio, (CREON PO) Take 36,000 Units by mouth. [...] taking: Reported on 08/09/2023) Cholecalciferol 250 MCG (06138 UT) capsule capsule Take by mouth daily. [...] by Nasal route once for 1 dose. [place] into the nose as directed. Call 911. [...] zanaflex [tizanidine], and vancomycin. documented in this encounterOhio[facility]08-15-[facility]23 Evaluation note* Encounter Date Diagnosis Assessment Notes Treatment Notes Treatment Clinical Notes Apr, Abdominal cramping (ICD-10 - R10 .9) Patient reports doing well Apr,iverticulosis (ICD-10 - K57.90) Apr,lternating constipation and diarrhea (ICD-10 - R19.8) Apr,ancreatic atrophy (ICD-10 - K86.89) Apr,Fatty liver (ICD-10 - K76.0) [facility] Other 08-11-2023 Evaluation note* Encounter Date Diagnosis Assessment Notes Treatment Notes Treatment Clinical Notes Apr, Type 2 diabetes divya itus with hyperglycemia, without long-term current use of insulin (ICD-10 - E11.65) [facility] Other 06-15-2023 History of Present illness Narrative* [...] 02/22/2023 3:16 PM Patient: Emily Macias MR#: [id number] : 1960 Age: 62 y.o. Referring Physician: Radha Asif, ALVARO-KEIRA Insurance: Payor: MEDICARE AET[employer] HMO OR [...] daily. 84 capsule 0 Cholecalciferol 250 MCG (23671 UT) capsule capsule Take by mouth daily. [...] by Nasal route once for 1 dose. [place] into the nose as directed. Call 911. If no response in 2 minutes use a new nasal spray in other nostril. Repeat until help arrives. 1Each [address] Omepraz[address] tablet Take by mouth daily. oxyCODONE 5 MG tablet Take 1-2 tabs po q 4-6 hours prn pain. Wean as tolerated. 20 tablet 0 Pancrelipase, Jjt-Djqg-Ykgu, (CREON PO) Take 36,000 Units by mouth. [...] 84 capsule, Rfl: 0 Cholecalciferol 250 MCG (10196 UT) capsule capsule, Take by mouth daily., [...] by Nasal route once for 1 dose. [place] into the nose as directed. Call 911. [...] tolerated., Disp: 20 tablet, Rfl: 0 Pancrelipase, Wav-Tgvb-Rvvz, (CREON PO), Take 36,000 Units by mouth. [...] zanaflex [tizanidine], and vancomycin. * Radha Asif APRN-WAF[employer] - 02/22/2023 3:00 PM EDT HPI: Emily [...] understanding. All pertinent portions of the clinical server support technician documentation was reviewed and agree. DANIELLE Gimenez I have reviewed the findings of the clinical server support technician and agree with their assessment. DANIELLE Gimenez Ortho Nurse - Established Patient Intake Room#: 5 Patient is S/P L knee medial/partial revision to TKA. Patient using walker today and penelope hose are in place. She states the worse pain is at HS while trying to sleep. Sitting pain 4/10 Walking pain is 5/10 Date: 02/22/2023 3:16 PM Patient: Emily Macias MR#: [id number] : 1960 Age: 62 y.o. Referring Physician: Radha Asif APRN-CNP Insurance: Payor: MEDICARE AET HMO [place] O / Plan: MEDICARE [employer] HMO / Product Type: *No Product type* [...] daily. 84 capsule 0 Cholecalciferol 250 MCG (50746 UT) capsule capsule Take by mouth daily. [...] by Nasal route once for 1 dose. [place] into the nose as directed. Call 911. If no response in 2 minutes use a new nasal spray in other nostril. Repeat until help arrives. 1Each 0 Omeprazole [address] tablet Take by mouth daily. oxyCODONE 5 MG tablet Take 1-2 tabs po q 4-6 hours prn pain. Wean as tolerated. 20 tablet 0 Pancrelipase, Qes-Vvzd-Mtrg, (CREON PO) Take 36,000 Units by mouth. [...] 84 capsule, Rfl: 0 Cholecalciferol 250 MCG (44431 UT) capsule capsule, Take by mouth daily., [...] by Nasal route once for 1 dose. [place] into the nose as directed. Call 911. [...] tolerated., Disp: 20 tablet, Rfl: 0 Pancrelipase, Nsw-Lpoa-Bodp, (CREON PO), Take 36,000 Units by mouth. [...] zanaflex [tizanidine], and vancomycin. documented in this encounterOhio[facility]05-10-2023 Evaluation note* Encounter Date Diagnosis Assessment Notes Treatment Notes Treatment Clinical Notes January, Alternating constipation and markos rrhea (ICD-10 - R19.8) [facility] Other 05-02-2023 Evaluation note* Encounter Date Diagnosis Assessment Notes Treatment Notes Treatment Clinical Notes January, Pre-op evaluation (ICD-10 - Z01. 818) Reviewed preop testing after OV. Of note is the negative MRSA, but the + staph aureus on the testing. Assume that this is benign, defer to surgeon or surgery center to address this. Otherwise, denies adverse surgical reactions or issues with anesthesia in the past. She is medically cleared for the knee surgery. January,Type 2 diabetes mellitus with hyperglycemia, without long-term current use of insulin (ICD-10 - E11.65)D/C Ozempic Samples given of Farxiga and pt will trial those. [facility] Other 04-24-2023 Evaluation note* Encounter Date Diagnosis Assessment Notes Treatment Notes Treatment Clinical Notes Dec, Abdominal cramping (ICD-10 - R10 .9) Patient states pain & cramping are in on the right lower side but also on the left lower side as well. Patient has alternating constipation & diarrhea as well. Patient takes Bentyl prn & Omeprazole. Patient is taking Ozempic. Dec,iverticulosis (ICD-10 - K57.90)fouund on CT scan in October of last year in [place], following a colonoscopy that was done in September Start Mesalamine Dec,lternating constipation and diarrhea (ICD-10 - R19.8)Start low fod map diet Start probiotics [facility] Other 03-23-2023 History of Present illness Narrative* [...] 11/30/2022 2:13 PM Patient: Emily Macias MR#: [id number] : 1960 Age: 61 y.o. Referring Physician: Self, Self Insurance: Payor: MEDICARE [employer] HMO OR PPO / Plan: MEDICARE [employer] HMO / Product Type: *No Product type* [...] []bracing Are you followed by a manager residential? [] [x] Name: Are you followed by pain management? [] [x] Name: Are you followed by any other specialists? [x] [] Name: RA Dr Felipa Santana Outpatient Medications Prior to Visit Medication Sig Dispense Refill Ascorbic Acid 1000 MG tablet Take 1 tablet by mouth daily. B Complex Vitamins (B COMPLEX 1 PO) Take by mouth. Biotin 35193 MCG tablet Take by mouth. Cholecalciferol 250 MCG (98728 UT) capsule capsule Take by mouth. Cobalamin [...] Take by mouth., Disp: , Rfl: Biotin 67996 MCG tablet, Take by mouth., Disp: , Rfl: Cholecalciferol 250 MCG (82732 UT) capsule capsule, Take by mouth., Disp: [...] symptoms. She has history of partial medial Denio uni knee on 08/13/[address] Lazar. [...] left knee. She has a medial partial Denio uni-arthroplasty in place with severe adjacent patellofemoral arthritis. IMPRESSION: 1.) History of left partial medial Denio uni knee on 08/13/[address] Lazar. [...] conversion from uni to total for optimal senior care management. We have discussed in great detail [...] of limb, and ultimately loss of life. senior care expectations, risks and general implant survivorship were also discussed. Despite these risks, the patient would liketo proceed with surgical planning. Today, we will initiate the pre-surgical process including nasalMRSA screening, scheduling an appointment for [facility] and the potential surgical date, andreviewing and [...] Take by mouth., Disp: , Rfl: Biotin 70130 MCG tablet, Take by mouth., Disp: , Rfl: Cholecalciferol 250 MCG (21838 UT) capsule capsule, Take by mouth., Disp: [...] migraines Zanaflex [Tizanidine] Hallucination [facility]* Encounter Date Diagnosis Assessment Notes Treatment Notes Treatment Clinical Notes Sep, Fibromyalgia (ICD-10 - M79.7) handicap placard rx handwritten Sep,Type 2 diabetes mellitus with hyperglycemia, without long-term current use of insulin (ICD-10 - E11.65)good readings on home meter with present meds. Sep,ositive ADRI (antinuclear antibody) (ICD-10 - R76.8)Suggested getting on cancellation list at [facility] Other 01-13-2023 Evaluation note* Encounter Date Diagnosis Assessment Notes Treatment Notes Treatment Clinical Notes Sep, Positive ADRI (antinuclear antibo dy) (ICD-10 - R76.8) Sep,Fibromyalgia (ICD-10 - M79.7) [facility] Other 01-04-2023 Evaluation note* Encounter Date Diagnosis Assessment Notes Treatment Notes Treatment Clinical Notes Sep, Abdominal cramping (ICD-10 - R10 .9) Sep,Type 2 diabetes mellitus with hyperglycemia, without long-term current use of insulin (ICD-10 - E11.65)advised holding or decreasing dose of ozempic to 0.25/week as this could relate to GI side effects [facility] Other 10-31-2022 NotePROCEDURE: XR TIB_FIB RT 2V COMPARISON: 08/24/2021 HISTORY: Pain in lower limb FINDINGS: BONES:No acute fracture or dislocation. Degenerative changes of the knee and ankle. Enthesopathic spurring of the calcaneus SOFT TISSUES:Negative. No visible soft tissue swelling. EFFUSION:None visible. OTHER: Negative. IMPRESSION: Osteoarthritis Electronically authenticated by: WANDA DIANE Date: 2022-07-10 13:36[facility]06-29-2022 NoteCONSULTATION CONSULTATION DATE: 03/08/2022 HISTORY OF [...] of pain. 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 [facility] Signed and Approved by: SABINA DELGADILLO . 03/09/2022 13:38:00[facility]* Diagnosis Pain in prosthetic joint, sequela- Primary [facility] noteNo InformationNort TwoF Other Evaluation note* Diagnosis Hx of total knee arthroplasty, left- Primary [facility] noteNo assessment information [facility] Work Phone: Evaluation note* Diagnosis Post-op pain- Primary Other acute postoperative pain Pain in prosthetic joint, subsequent encounter [facility]* Diagnosis Hx of total knee arthroplasty, left- Primary documented in this encounter [facility] note* Diagnosis Hx of total knee arthroplasty, left- Primary Pain in prosthetic joint, subsequent encounter documented in this encounter [facility] note* Diagnosis Left knee pain, unspecified chronicity- Primary documented in this encounter [facility] general Narrative - Reported* Type Description Date Medical History Fibromyalgia Medical HistoryMeningitisMedical HistoryLiver massMedical HistoryRenal mass Medical HistoryHyperlipidemia, mixedMedical HistoryLyme diseaseMedical History Anxiety and depressionMedical HistoryPolyarthralgiaMedical HistoryAutoimmune hypothyroidismMedical HistoryNontoxic uninodular goiterMedical History Multinodular goiterMedical HistoryCandidiasisMedical HistoryHypothyroidism Medical HistoryHeadacheMedical HistoryHemorrhoids, externalMedical History Prolapse of uterusMedical HistoryPeptic ulcer diseaseMedical HistoryDiabetic neuropathyMedical HistoryMetatarsalgia of right footMedical HistoryRight foot painMedical HistoryLeft foot painMedical HistoryPlantar fasciitis of right foot Medical HistoryType 2 diabetes mellitus with hyperglycemia, unspecified whether ocean transportation intermediary insulin useMedical HistoryShin splints, right, initial encounter Medical HistoryOAB (overactive bladder)Medical HistoryFatigueMedical History Hammer toe of left footMedical HistoryAbscess of left great toeMedical History Other acquired deformities of left footMedical HistoryAcute right flank pain Medical HistoryDermatitis due to plants, including poison iris, sumac, and oak Medical HistoryCellulitis of left toeMedical HistoryTick biteMedical History Neurogenic pain of left lower extremityMedical HistoryThumb pain, leftMedical HistoryBroken internal joint prosthesis, unspecified site, subsequent encounter Medical HistoryCervical painMedical HistoryLeft lumbar painMedical History Vitamin D deficiencyMedical HistoryMyalgiaMedical HistoryUnspecified internal derangement of left kneeMedical HistoryDiarrheaMedical HistoryBilateral primary osteoarthritis of kneeMedical HistoryGAD (generalized anxiety disorder)Medical HistoryOA (osteoarthritis)Medical HistoryOther instability, left footMedical HistoryGeneralized abdominal painMedical HistoryUnspecified dislocation of left toe(s), subsequent encounterMedical HistoryDyspnea on exertionMedical History Right Achilles tendinitisMedical HistoryLibido, decreasedMedical HistoryLUQ pain Medical HistoryDiverticulosisSurgical Xttdfslgpiepnermlkhcpmt7033Mytykfsf Ctrogkgbhgefanzh4437Bhcdxvdz HistoryHYSTERECTOMY AND LEFT OVARY [id number] Surgical Yvsgejhpsuzrbhuagqeqp3773Udtgyaqr Qwruqqqtodhvzjhzqvglcl3740Qknukkzw Historyovarian kjvv5497Mshglcku HistoryR SHOULDER TEAR WSKFDW0055Yqttmasz HistoryR ELBOW BAVPHSB7217Fbaytxmf HistoryL MINISCUS REPAIRSurgical History GALLBLADDER REMOVEDSurgical HistoryRIGHT ENDOSCOPIC PLANTAR FASCIOTOMYSurgical HistoryRIGHT OPENING GASTROCNEMIUS RECESSIONSurgical HistoryHARDWARE REMOVAL LEFT GREAT TOESurgical HistoryLEFT 1ST METATARSAL JOINT FUSION, REVISION, LEFT MER OSTEOTOMY, REVISION 2ND TOE- DR. LANDEROSQIOSLVLBMO8626Fxfjcofm HistoryCARPAL CFILCH6686Tanxjrbd HistoryRIGHT RIB/LEFT SHOULDER MASS TKJBYGU2907Zhnxohyj HistoryLEFT GREAT TOE JOINT UOYLVDNCGXI7611Xkdupfck HistoryLEFT UNIOCFORD KNEE OCTSLEAIGFS0868Drelqnrs HistoryCOLONOSCOPYSurgical HistoryTONSILLECTOMY AND ADENOIDECTOMYHospitalization HistorymonoHospitalization Historymenegitis [facility] Other History general Narrative - Reported* Type Description Date Medical History Fibromyalgia Medical HistoryMeningitisMedical HistoryLiver massMedical HistoryRenal mass Medical HistoryHyperlipidemia, mixedMedical HistoryLyme diseaseMedical History Anxiety and depressionMedical HistoryPolyarthralgiaMedical HistoryAutoimmune hypothyroidismMedical HistoryNontoxic uninodular goiterMedical History Multinodular goiterMedical HistoryCandidiasisMedical HistoryHypothyroidism Medical HistoryHeadacheMedical HistoryHemorrhoids, externalMedical History Prolapse of uterusMedical HistoryPeptic ulcer diseaseMedical HistoryDiabetic neuropathyMedical HistoryMetatarsalgia of right footMedical HistoryRight foot painMedical HistoryLeft foot painMedical HistoryPlantar fasciitis of right foot Medical HistoryType 2 diabetes mellitus with hyperglycemia, unspecified whether senior care insulin useMedical HistoryShin splints, right, initial encounter Medical HistoryOAB (overactive bladder)Medical HistoryFatigueMedical History Hammer toe of left footMedical HistoryAbscess of left great toeMedical History Other acquired deformities of left footMedical HistoryAcute right flank pain Medical HistoryDermatitis due to plants, including poison iris, sumac, and oak Medical HistoryCellulitis of left toeMedical HistoryTick biteMedical History Neurogenic pain of left lower extremityMedical HistoryThumb pain, leftMedical HistoryBroken internal joint prosthesis, unspecified site, subsequent encounter Medical HistoryCervical painMedical HistoryLeft lumbar painMedical History Vitamin D deficiencyMedical HistoryMyalgiaMedical HistoryUnspecified internal derangement of left kneeMedical HistoryDiarrheaMedical HistoryBilateral primary osteoarthritis of kneeMedical HistoryGAD (generalized anxiety disorder)Medical HistoryOA (osteoarthritis)Medical HistoryOther instability, left footMedical HistoryGeneralized abdominal painMedical HistoryUnspecified dislocation of left toe(s), subsequent encounterMedical HistoryDyspnea on exertionMedical History Right Achilles tendinitisMedical HistoryLibido, decreasedMedical HistoryLUQ pain Medical HistoryDiverticulosisSurgical Nwfwohongqlpncrpkhqxesm5651Unxnjipq Deitrhvrwxvzfrht2310Ogcwilsl HistoryHYSTERECTOMY AND LEFT OVARY NGTMGXB1239 Surgical Kedpojxtjphhytlplzhic8985Rtgcmuzh Dqnsiaututmwxzbyjreoxo4310Gbdzrnwc Historyovarian bygz9261Wqsmkbrx HistoryR SHOULDER TEAR BPMGDN0526Hhiswybw HistoryR ELBOW EIXTWQY6533Sdhvwjqs HistoryL MINISCUS REPAIRSurgical History GALLBLADDER REMOVEDSurgical HistoryRIGHT ENDOSCOPIC PLANTAR FASCIOTOMYSurgical HistoryRIGHT OPENING GASTROCNEMIUS RECESSIONSurgical HistoryHARDWARE REMOVAL LEFT GREAT TOESurgical HistoryLEFT 1ST METATARSAL JOINT FUSION, REVISION, LEFT MER OSTEOTOMY, REVISION 2ND TOE- DR. LANDEROSVQTDBJDNJU6826Rokaqfdf HistoryCARPAL YNQQJC4978Vajnuast HistoryRIGHT RIB/LEFT SHOULDER MASS DDRZIUS9486Upzqjmfb HistoryLEFT GREAT TOE JOINT WEISBIVCMSO5792Bullpvxp HistoryLEFT UNIOCFORD KNEE BTWOTTNDSYN9809Qbqmhzlm HistoryCOLONOSCOPYSurgical HistoryTONSILLECTOMY AND ADENOIDECTOMYSurgical HistoryLeft knee01/29/2023Hospitalization Historymono Hospitalization Historymenegitis [facility] Other Reason for referral (narrative)* Consultation (Routine) - Patient to ArrangeSpecialtyDiagnoses / ProceduresReferred By ContactReferred To ContactPhysical Therapy Diagnoses Hx of total knee arthroplasty, left Radha Asif APRN-CNP [address] [id number] Ref[facility] DateExpiration DateVisits RequestedVisits [id number] to Arrange/ Scheduling Instructions . * Diagnostic X-Ray (Routine) - New RequestSpecialtyDiagnoses / Procedures Referred By ContactReferred To Contact Diagnoses Hx of total knee arthroplasty, left Procedures XR KNEE LEFT 3 VIEWS Radha Asif APRN-CNP [address] [place], [place] [phone] Referral [facility]Status[facility] DateExpiration DateVisits RequestedVisits [id number] Request/ [facility] (narrative)No reason for referral information availableCity Hospital Work Phone: Summary Purpose Family History Relationship Condition Age at Onset Recorded Date/T joaquina brother Heart disease Unknown fatherMalignant neoplasmUnknownHypertensionUnknownFamily history of mental disorderUnknownmotherMalignant neoplasmUnknownDiabetes mellitusUnknownHeart diseaseUnknown Family Member Condition Full Brother Diabetes - non-insul in dependent Full Brother COPD Father Heart disease Father Gout Mother Vascular disease Mother Blood clots Father Cancer Father Alzheimer Father Alive Mother Heart disease Mother Diabetes - insulin d ependent Mother Cancer Mother Alive Advance Directives Code StatusDate ActivatedDate InactivatedCommentsFull Code01/29/2023 4:58 PM Advance Directive Response Recorded Date/ Time Advance Directives No May 01, 2023 3:43pm Date ActivatedDate InactivatedComments01/29/2023 4:58 PM Advance Directive Response Recorded Date/ Time Advance Directives No May 01, 2023 2:43pm Advance Directive Response Recorded Date/ Time Advance Directives No June 22, 2025 3:23pm Reason for Referral Reason 12/28/22 Normal co lonoscopy last summer - continues to have GI issues. Diagnosis 1 Abdominal cramping ( R10.9) Referral Organization [facility] reginaldo Referring Provider First Name Netta Referring Provider Last Name Lindsay Referring Provider Specialty [facility] [employer] Referred Organization [facility] Referred Provider Ismael Early Referred Address [address] [place],[address] Referred Provider Specialty Gastroentero logy Referral Priority Routine Referral Appointment Date 2022-12-28 General Notes Sonali Cortez 10:30:02 AM >received today, notes locked and referral faxed Sonali Cortez 09/25/2022 10:48:23 AM >pt scheduled Reason 11/21/22 See phone note - this is related to a operations intern in [place] area testing labs. I do not have a copy of his labs. Diagnosis 1 Positive ADRI (antinu clear antibody) (R76.8) Referral Organization [facility] reginaldo Referring Provider First Name Netta Referring Provider Last Name Lindsay Referring Provider Specialty [facility] [employer] Referred Organization [facility] Referred Provider Cara Leo Referred Address [address] [place],[address] Referred Provider Specialty Rheumatology Referral Priority Routine Referral Appointment Date 2022-11-21 General Notes Sonali Cortez 09:22:28 AM >received today, notes attached and ins card attached. will call pt to see who she saw in [place] to get labs. Sonali Cortez 09/25/2022 10:37:57 AM >spoke with patient and was provided Dr. Balbuena phone number [phone] to request labs. told patient I would send referral once I had the results to sendwith referral, and provided her Dr. Dowling number [...] >received fax with appt date and time SpecialtyDiagnoses / ProceduresReferred By ContactReferred To Contact Diagnoses Pain in prosthetic joint, sequela Procedures XR BONE LENGTH STUDY Sagar Krause MD [address] [place] [address] Referral IDStatusReasonStart DateExpiration DateVisits RequestedVisits [id number] [id number] / Procedures Referred By ContactReferred To Contact Diagnoses Pain in prosthetic joint, sequela Procedures XR KNEE LEFT 3 VIEWS Sagar Krause MD [address] [place], [place] [phone] Referral IDStatusReasonStart DateExpiration DateVisits RequestedVisits [id number] [id number] / Procedures Referred By ContactReferred To Contact Diagnoses Post-op pain Procedures XR KNEE LEFT 3 VIEWS Sagar Krause MD [address] [place], [place] [phone] Referral IDStatusReasonStart DateExpiration DateVisits RequestedVisits [id number] / ProceduresReferred By ContactReferred To Contact Diagnoses Hx of total knee arthroplasty, left Procedures XR KNEE LEFT 3 VIEWS Radha Asif, [employer] [address] [place] [address] Referral IDStatusReasonStart DateExpiration DateVisits RequestedVisits [id number] Request/[id number] / Procedures Referred By ContactReferred To Contact Diagnoses Hx of total knee arthroplasty, left Procedures XR KNEE LEFT 3 VIEWS Sagar Krause MD [address] [phone] Referral IDStatusReasonStart DateExpiration DateVisits RequestedVisits [id number] Request/ Chief Complaint and Reason for Visit Chief [...] Date Type 2 diabetes mellitus with hyperglyce [facility] July 29, 2024 9:30am Abdominal [...] 6 wk F/U Alternating bowel habits/GERD J [facility] [place] 2024 9:09am luis/ insomnia/ 30 mins April 21, 2025 10:03am Reason for Visit Admit Date Fecal urgency April 06, 2025 9:09 am GERD (gastroesophageal reflux disease) J 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 [place] 2024 9:09am luis/ insomnia/ 30 mins April 21, 2025 10:03am EMG LLE per Dr. Kleber Gotti May 062024 2:28pm Reason for Visit Admit Date Fecal urgency April 06, 2025 9:09 am GERD (gastroesophageal reflux disease) J [facility] [place] 9:09am History of pancreatitis April 06, [...] 6 wk F/U Alternating bowel habits/GERD J [facility] [place] 2024 9:09am luis/ insomnia/ 30 mins April 21, 2025 10:03am EMG LLE per Dr. Kleber Gotti May 062024 2:28pm UA:Burning/Back Pain May 13, 2025 10:16am Reason for Visit Admit Date Fecal urgency April 06, 2025 9:09 am GERD (gastroesophageal reflux disease) J [facility] [place] 9:09am History of pancreatitis April 06, [...] Numbness and tingling May 06, 2025 2:28pm Chief Complaint Admit Date 6 wk F/U Alternating bowel habits/GERD J willian 2024 9:09am luis/ insomnia/ 30 mins April 21, 2025 10:03am EMG LLE per Dr. Kleber Gotti May 062024 2:28pm UA:Burning/Back Pain May 13, 2025 10:16am Pins and needle sensation all over Octob er 2024 10:42am Reason for Visit Admit Date Fecal urgency April 06, 2025 9:09 am GERD (gastroesophageal reflux disease) J [facility] [place] 9:09am History of pancreatitis April 06, [...] Numbness and tingling May 06, 2025 2:28pm Dysuria May 13, 2025 10:16am Fatigue June 23, 2025 1 0:42am Hypocalcemia June 23, 2025 1 0:42am Hypothyroidism June 23, 2025 1 0:42am Itching June 23, 2025 1 0:42am Type 2 diabetes mellitus with hyperglyce christina June 23, 2025 10:42am Chief Complaint Admit Date luis/ insomnia/ 30 mins April 21, 2025 10:03am EMG LLE per Dr. 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 21, 2025 10 :03am LUIS (obstructive sleep apnea) April 10:03am Restless leg syndrome April 21, 2025 10:03am Left leg pain May 06, 2025 2: 28pm Numbness and tingling May 06, 2025 2:28pm Dysuria May 13, 2025 10:16am Fatigue June 23, 2025 1 0:42am Hypocalcemia June 23, 2025 1 0:42am Hypothyroidism June 23, 2025 1 0:42am Itching June 23, 2025 1 0:42am Type 2 diabetes mellitus with hyperglyce christina June 23, 2025 10:42am Chronic insomnia July 07, 2025 8 :55am History of iron deficiency July 07, 2025 8:55am Hypnotic dependence July 07, 2025 8 :55am LUIS (obstructive sleep apnea) July 072024 8:55am GERD (gastroesophageal reflux disease) O ctober 2024 9:52am Additional Source Comments INFORMATION SOURCE (unrecogn ized section and content) DATE CREATED AUTHOR 09/08/2021 [facility] DATE CREATED AUTHOR AUTHOR'S ORGANIZ ATION 01/23/2023 [facility] DATE CREATED AUTHOR AUTHOR'S ORGANIZ ATION 02/29/2024 [facility] DATE CREATED AUTHOR AUTHOR'S ORGANIZ ATION 09/22/2024 [facility] DATE CREATED AUTHOR AUTHOR'S ORGANIZ ATION 12/28/2024 [facility] DATE CREATED AUTHOR AUTHOR'S ORGANIZ ATION 02/05/2025 [facility] DATE CREATED AUTHOR AUTHOR'S ORGANIZ ATION 02/16/2025 [facility] REASON FOR VISIT (unrecogniz ed section and content) SpecialtyDiagnoses / ProceduresReferred By ContactReferred To Contact Diagnoses Pain in prosthetic joint, sequela Procedures XR BONE LENGTH STUDY Sagar Krause MD [address] [place] [address] Referral IDStatusReasonStart DateExpiration DateVisits RequestedVisits [id number] Request/[id number] CommentsSurgical Follow-upSpecialtyDiagnoses / ProceduresReferred By Contact Referred To Contact Diagnoses Post-op pain Procedures XR KNEE LEFT 3 VIEWS Sagar Krause MD [address] [place], [place] [phone] Referral IDStatusReasonStart DateExpiration DateVisits RequestedVisits [id number]hm Diagnoses / ProceduresReferred By ContactReferred To Contact Diagnoses Hx of total knee arthroplasty, left Procedures XR KNEE LEFT 3 VIEWS Radah Asif APRN-KEIRA [address] [place] [address] Referral IDStatusReasonStart DateExpiration DateVisits RequestedVisits [id number] Request/[id number]-ig SpecialtyDiagnoses / ProceduresReferred By ContactReferred To Contact Diagnoses Hx of total knee arthroplasty, left Procedures XR KNEE LEFT 3 VIEWS Sagar Krause MD [address] [place], [place] [phone] Referral IDStatusReasonStart DateExpiration DateVisits RequestedVisits [id number] Request/ Care Teams (unrecognized sec tion and content) Team Status: Active Member Role Status Dates Netta Montoya MD Primary Care Provider Active Team Status: Inactive Member Role Status Dates Netta Montoya MD Primary Care Provider Active Start: April 06, 2025 End: April 06, 2025Randy Chau ProviderActiveStart: April 06, 2025 End: April 06, 2025 Team Status: Inactive Member Role Status Dates Netta Montoya MD Primary Care Provider Active Start: April 21, 2025 End: April 21, 2025Riccardo Lacy ProviderActiveStart: April 21, 2025 End: April 21, 2025 Team Status: Inactive Member Role Status Dates Netta Montoya MD Primary Care Provider Active Start: May 06, 2025 End: May 06, 2025Diomedes Carlos ProviderActiveStart: May 06, 2025 End: May 06, 2025 Team Status: Inactive Member Role Status Dates Netta Montoya MD Primary Care Provider Active Start: May 13, 2025 End: May 13, 2025Riccardo Malhotra ProviderActiveStart: May 13, 2025 End: May 13, 2025 Team Status: Inactive Member Role Status Dates Netta Montoya MD Primary Care Provider Active Start: June 23, 2025 End: June 23, 2025Riccardo Malhotra ProviderActiveStart: June 23, 2025 End: June 23, 2025 Team Status: Active Member Role Status Dates Netta Montoya MD Primary Care Provider Active Start: March 19, 2025 Riccardo Malhotra ProviderActiveStart: March 19, 2025 Team MemberRelationshipSpecialtyStart DateEnd Date Netta Montoya MD [address] [place] [address] PCP - Generalmi Medicine10/20/22Team MemberRelationshipSpecialtyStart DateEnd Date Netta Montoya MD [address] [place] [phone] PCP - Generalmi Medicine10/20/22Team MemberRelationshipSpecialtyStart DateEnd Date Netta Montoya MD [address] [place] [phone] [facility]/22 Team Status: Inactive Member Role Status Dates Siva Boyce MD Attending Provider Active Martin Malhotra ProviderActive Team Status: Inactive Member Role Status Dates Netta Montoya MD Primary Care Provider Active Riccardo Umana ProviderActiveTeam MemberRelationshipSpecialtyStart DateEnd Date Netta Montoya MD [address] [place] [address] PCP - GeneralFami Medicine10/20/22Team MemberRelationshipSpecialtyStart DateEnd Date Netta Montoya MD [address] [place] [address] [facility] - [facility] Medicine10/20/22Team MemberRelationshipSpecialtyStart DateEnd Date Netta Montoya MD [address] [place] [address] PCP - [facility] Medicine10/20/22Team MemberRelationshipSpecialtyStart DateEnd Date Netta Montoya MD [address] [place] [address] PCP - [facility] [facility] Team Status: Inactive Member Role Status Dates Netta Montoya MD Primary Care Provider Active Start: July 17, 2024 End: July 17Riccardo Box ProviderActiveStart: July 17, 2024 End: July 17, 2024 Team Status: Inactive Member Role Status Dates Netta Montoya MD Primary Care Provide r, Attending Provider Active Start: July 29, 2024 End: July 29, 2024 Team Status: Inactive Member Role Status Dates Netta Montoya MD Primary Care Provider Active Start: August 29, 2024 End: August 29Randy Tilley ProviderActiveStart: August 29, 2024 End: August 29, 2024 Team Status: Inactive Member Role Status Dates Netta Montoya MD Primary Care Provider Active Start: September 30, 2024 End: September 30, 2024Randy Chau ProviderActiveStart: September 30, 2024 End: September 30, 2024 Team Status: Inactive Member Role Status Dates Netta Montoya MD Primary Care Provider Active Start: October 21, 2024 End: October 21, 2024Lj Gibbons ProviderActiveStart: October 21, 2024 End: October 21, 2024 Team Status: Active Member Role Status Dates Netta Montoya MD Primary Care Provider Active Start: November 10, 2024 Randy Ovalle ProviderActiveStart: November 10, 2024 Team Status: Inactive Member Role Status Dates Netta Montoya MD Primary Care Provide r, Attending Provider Active Start: December 10, 2024 End: December 10, 2024 Team Status: Inactive Member Role Status Dates Netta Montoya MD Primary Care Provider Active Start: December 26, 2024 End: December 26, 2024Randy Chau ProviderActiveStart: December 26, 2024 End: December 26, 2024Team MemberRelationshipSpecialtyStart DateEnd Date Andrew Berg [facility] [address] [place] [address] PCP - General12/20/00 Daniel Castillo [address] [place] [address] Pain Management02/25/25 Team Status: Active Member Role/Relationship Status Dates Netta Montoya MD Primary Care Provider Active Team Status: Inactive Member Role/Relationship Status Dates Netta Montoya MD Primary Care Provider Active Start: April 21, 2025 End: April 21, 2025DaRiccardo Foster ProviderActiveStart: April 21, 2025 End: April 21, 2025 Team Status: Inactive Member Role/Relationship Status Dates Netta Montoya MD Primary Care Provider Active Start: May 06, 2025 End: May 06, 2025Diomedes Carlos ProviderActiveStart: May 06, 2025 End: May 06, 2025 Team Status: Inactive Member Role/Relationship Status Fermin Montoya MD Primary Care Provider Active Start: May 13, 2025 End: May 13, 2025Netta Montoya Riccardo ProviderActiveStart: May 13, 2025 End: May 13, 2025 Team Status: Inactive Member Role/Relationship Status Dates Netta Montoya MD Primary Care Provider Active Start: June 23, 2025 End: June 23, 2025Netta Montoya VIKTORIYAbhavnakaroline ProviderActiveStart: June 23, 2025 End: June 23, 2025 Team Status: Inactive Member Role/Relationship Status Dates Netta Montoya MD Primary Care Provider Active Start: July 07, 2025 End: July 07, 2025Daprecious Fonseca VIKTORIYAbhavnakaroline ProviderActiveStart: July 07, 2025 End: July 07, 2025 Team Status: Active Member Role/Relationship Status Dates Netta Montoya MD Primary Care Provider Active Start: July 07, 2025 Randy Chau ProviderActiveStart: July 07, 2025 Team Status: Inactive Member Role/Relationship Status Dates Netta Montoya MD Primary Care Provider Active Start: July 07, 2025 End: July 07, 2025Randy Chau ProviderActiveStart: July 07, 2025 End: July 07, 2025 Goals (unrecognized section and content) Goals may be documented in a n alternate section Source Comments (unrecognize d section and content) In the event this informatio n is protected by the Federal Confidentiality of Alcohol and Drug Abuse Patient Records regulations: The Federal rules restrict any use of the information to criminally investigate or prosecute any alcohol or drug abuse patient.[facility] FOR RECORDS PERTAINING TO PATIENTS WHO [...] BE BASED ON THE PRIMARY CLINICAL RECORDS. [facility]. provides no warranty or guarantee of the accuracy or completeness of information in this document.
== END 2025-07-29 09:15 | disposition home or self-care (01) ==
LOC: MRI 09:14
PROVIDERS: PCP Family Medicine; Visit Provider Pain Medicine Interventional Pain Medicine
DX: M25.551 Pain in right hip (principal)
CPT/HCPCS: 73721